=== PATIENT | female | born 1960 | race Two or more races ===

== ENCOUNTER 2020-07-11 15:14 | Outpatient (REF) | payer OTHER, SELFPAY ==
[2020-07-12 09:54] LABS: CT PCR NOT DETECTED (Not Detect.); NG PCR NOT DETECTED (Not Detect.)
[2020-07-12 10:14] LABS: BV Int Neg Control Negative (Negative); BV Int Pos Control Positive (Positive)
== END 2020-07-11 15:15 | disposition home or self-care (01) ==
LOC: HO.LNP 15:14
PROVIDERS: PCP Internal Medicine; Visit Provider Obstetrics & Gynecology
DX: R10.2 Pelvic and perineal pain (principal); N89.8 Other specified noninflammatory disorders of vagina; R79.89 Other specified abnormal findings of blood chemistry
CPT/HCPCS: 81002; 87480; 87491; 87510; 87591; 87660; 99203

== ENCOUNTER → 2020-07-29 11:15 | Outpatient (BNVA) | payer OTHER, SELFPAY | PROVIDERS: PCP Internal Medicine; Referring Provider Internal Medicine; Visit Provider Nurse Practitioner ==

== ENCOUNTER → 2020-07-29 11:15 | Outpatient (BNVA) | payer OTHER, SELFPAY | PROVIDERS: PCP Internal Medicine; Referring Provider Internal Medicine; Visit Provider Nurse Practitioner | DX: Z76.89 Persons encountering health services in other specified circumstances (principal) ==

== ENCOUNTER 2020-08-26 14:26 | Outpatient (REF) | payer OTHER, SELFPAY ==
[2020-08-26 15:12] LABS: MANUAL DIFF FLAG NO
[2020-08-26 15:16] LABS: Basophils Percent Auto 0.6 % (0-2); Eosinophils Absolute Auto 0.4 X10*3/uL (0.0-0.4); Eosinophils Percent Auto 5.4 % (0-4); Hematocrit 40.2 % (37-47); Hemoglobin 13.4 g/dl (12.0-16.0); Imm Gran Abs Auto 0.03 X10*3/uL (0.00-0.03); Imm Gran Pct Auto 0.5 % (0.0-0.4); Lymphocytes Absolute Auto 1.8 X10*3/uL (1.2-4.9); Lymphocytes Percent Auto 27.3 % (20-40); Mean Corpuscular HGB Conc 33.3 g/dl (31.0-35.0); Mean Corpuscular Hemoglobin 31.1 pg (27.0-33.0); Mean Corpuscular Volume 93.3 fL (80-98); Mean Platelet Volume 11.5 fL (9.4-12.3); Monocytes Absolute Auto 0.5 X10*3/uL (0.1-1.2); Monocytes Percent Auto 7.1 % (2-11); Neutrophils Absolute Auto 3.9 X10*3/uL (2.0-8.3); Neutrophils Percent Auto 59.1 % (45-73); Platelet Count 187 X10*3/uL (160-400); Red Blood Count 4.31 X10*6/uL (4.20-5.50); Red Cell Distribution Width 11.9 % (11.0-16.0); White Blood Count 6.7 X10*3/uL (4.8-10.8)
[2020-08-26 15:39] LABS: Alanine Aminotransferase 31 U/L (0-31); Albumin Level 3.9 g/dL (3.5-5.0); Alkaline Phosphatase 90 U/L (39-117); Anion Gap 11 (12-20); Aspartate Amino Transferase 24 U/L (5-31); Bilirubin Total 0.5 mg/dL (0.0-1.0); Blood Urea Nitrogen 17 mg/dL (9-16); C Reactive Protein 1.29 mg/dL (< or = 0.50); Calcium 8.8 mg/dL (8.4-10.2); Carbon Dioxide 27 mmol/L (22-29); Chloride 106 mmol/L (96-108); Estimated Glomerular Filt Rate > 60; Glucose Random 167 mg/dL (60-115); Sodium 140 mmol/L (135-145); Total Protein 6.9 g/dL (6.5-8.0)
[2020-08-26 16:02] LABS: Erythrocyte Sedimentation Rate 26 MM/HR (0-20)
== END 2020-08-26 14:27 | disposition home or self-care (01) ==
LOC: HO.LAB 14:26
PROVIDERS: PCP Internal Medicine; Visit Provider Student in an Organized Health Care Education/Training Program
DX: M06.9 Rheumatoid arthritis, unspecified (principal)
CPT/HCPCS: 36415; 80053; 85025; 85652; 86140

== ENCOUNTER → 2020-08-29 08:31 | Outpatient (BNVA) | payer OTHER, SELFPAY | PROVIDERS: PCP Internal Medicine; Referring Provider Internal Medicine; Visit Provider Student in an Organized Health Care Education/Training Program | DX: M05.9 Rheumatoid arthritis with rheumatoid factor, unspecified (principal); Z79.899 Other long term (current) drug therapy | CPT/HCPCS: 99212 ==

== ENCOUNTER 2020-09-03 13:19 | Outpatient (REF) | payer OTHER, SELFPAY ==
[2020-09-04 09:44] LABS: BV Int Neg Control Negative (Negative); BV Int Pos Control Positive (Positive)
== END 2020-09-03 13:20 | disposition home or self-care (01) ==
LOC: HO.LAB 13:19
PROVIDERS: PCP Internal Medicine; Visit Provider Obstetrics & Gynecology
DX: N89.8 Other specified noninflammatory disorders of vagina (principal)
CPT/HCPCS: 87480; 87510; 87660; 99212

== ENCOUNTER → 2020-11-07 13:38 | Outpatient (BNVA) | payer OTHER, SELFPAY | PROVIDERS: PCP Internal Medicine; Referring Provider Internal Medicine; Visit Provider Internal Medicine | DX: J45.909 Unspecified asthma, uncomplicated (principal); J98.4 Other disorders of lung; E66.01 Morbid (severe) obesity due to excess calories | CPT/HCPCS: 99212 ==

== ENCOUNTER 2020-11-12 15:01 | Outpatient (REF) | payer OTHER, SELFPAY ==
[2020-11-17 02:08] LABS: HPV mRNA E6/E7 rflx Not Detected (Not Detected)
== END 2020-11-12 15:02 | disposition home or self-care (01) ==
LOC: HO.LAB 15:01
PROVIDERS: PCP Internal Medicine; Visit Provider Obstetrics & Gynecology
DX: Z01.419 Encounter for gynecological examination (general) (routine) without abnormal findings (principal); Z11.51 Encounter for screening for human papillomavirus (HPV)
CPT/HCPCS: 36415; 87624; 88142

== ENCOUNTER 2020-11-13 08:02 | Outpatient (REF) | payer OTHER, SELFPAY ==
[2020-11-13 08:56] LABS: MANUAL DIFF FLAG NO
[2020-11-13 09:05] LABS: Appearance Urine CLOUDY; Color Urine YELLOW; Glucose Urine UA 100 MG/DL (NEG); Leukocyte Esterase Urine NEG (NEG); Nitrite Urine NEG (NEG); PH 5.5 (5.0-8.0); Specific Gravity - Urine >= 1.030 (1.005-1.025); Urine Blood NEG (NEG); Urine Ketones NEG (NEG); Urine Protein NEG (NEG-TRACE)
[2020-11-13 09:07] LABS: Basophils Percent Auto 0.3 % (0-2); Eosinophils Absolute Auto 0.4 X10*3/uL (0.0-0.4); Eosinophils Percent Auto 6.5 % (0-4); Hematocrit 39.4 % (37-47); Hemoglobin 13.3 g/dl (12.0-16.0); Imm Gran Abs Auto 0.04 X10*3/uL (0.00-0.03); Imm Gran Pct Auto 0.6 % (0.0-0.4); Lymphocytes Absolute Auto 1.6 X10*3/uL (1.2-4.9); Mean Corpuscular HGB Conc 33.8 g/dl (31.0-35.0); Mean Corpuscular Hemoglobin 31.6 pg (27.0-33.0); Mean Corpuscular Volume 93.6 fL (80-98); Mean Platelet Volume 12.1 fL (9.4-12.3); Monocytes Absolute Auto 0.5 X10*3/uL (0.1-1.2); Neutrophils Absolute Auto 4.2 X10*3/uL (2.0-8.3); Neutrophils Percent Auto 61.6 % (45-73); Platelet Count 172 X10*3/uL (160-400); Red Blood Count 4.21 X10*6/uL (4.20-5.50); Red Cell Distribution Width 11.9 % (11.0-16.0); White Blood Count 6.8 X10*3/uL (4.8-10.8)
[2020-11-13 09:10] LABS: Bacteria Urine 2+ /LPF; RBC Urine 0-2 /HPF (0); Squamous Epithelial Cell Urine 4+ /LPF; WBC Urine 0-2 /HPF (0-4)
[2020-11-13 09:11] LABS: Mucus Urine 2+ /LPF
[2020-11-13 09:30] LABS: Alanine Aminotransferase 26 U/L (0-31); Albumin Level 3.7 g/dL (3.5-5.0); Alkaline Phosphatase 86 U/L (39-117); Anion Gap 11 (12-20); Aspartate Amino Transferase 21 U/L (5-31); Bilirubin Total 0.8 mg/dL (0.0-1.0); Blood Urea Nitrogen 15 mg/dL (9-16); C Reactive Protein 1.19 mg/dL (< or = 0.50); Calcium 8.9 mg/dL (8.4-10.2); Carbon Dioxide 30 mmol/L (22-29); Chloride 106 mmol/L (96-108); Cholesterol 124 mg/dL; Estimated Glomerular Filt Rate > 60; Glucose Fasting 228 mg/dL (60-99); HDL Cholesterol 37 mg/dL; LDL Cholesterol Calculated 71 mg/dl; Potassium 3.9 mmol/L (3.3-5.1); Sodium 143 mmol/L (135-145); Total Protein 6.8 g/dL (6.5-8.0); Triglycerides 81 mg/dL
[2020-11-13 09:33] LABS: Reflex LDLD? No
[2020-11-13 09:54] LABS: Erythrocyte Sedimentation Rate 23 MM/HR (0-20)
== END 2020-11-13 08:03 | disposition home or self-care (01) ==
LOC: HO.LAB 08:02
PROVIDERS: Nurse Practitioner Family; Student in an Organized Health Care Education/Training Program; PCP Internal Medicine; Visit Provider Internal Medicine
DX: M05.9 Rheumatoid arthritis with rheumatoid factor, unspecified (principal); E11.9 Type 2 diabetes mellitus without complications; E78.5 Hyperlipidemia, unspecified; B37.3 Candidiasis of vulva and vagina; R10.30 Lower abdominal pain, unspecified
CPT/HCPCS: 36415; 80053; 80061; 81001; 85025; 85652; 86140

== ENCOUNTER 2020-12-13 12:37 | Emergency (ER) | payer OTHER, SELFPAY ==
--- NOTE | ~2020-12-13 | XR_ITS ---
EXAMINATION: XR CHEST CLINICAL INFORMATION: Right-sided chest and rib pain COMPARISON: Previous x-ray March 2020 TECHNIQUE: Frontal view of the chest was obtained. FINDINGS: The cardiac and mediastinal contours are stable. The lungs are clear. There is no pleural effusion or pneumothorax. Bony structures are unremarkable. XR/XR chest 1V IMPRESSION: Unremarkable examination.
[2020-12-13 12:56] VITALS: BP 181/75; PULSE 70; RESP 18; TEMP 36.8; O2SAT 99; BMI 42.7
[2020-12-13 13:43] LABS: Glucose Urine UA 250 MG/DL (NEG); Leukocyte Esterase Urine NEG (NEG); Nitrite Urine NEG (NEG); PH 7.5 (5.0-8.0); Urine Blood NEG (NEG); Urine Ketones NEG (NEG); Urine Protein NEG (NEG-TRACE)
[2020-12-13 13:46] LABS: Appearance Urine CLEAR; Color Urine YELLOW
[2020-12-13 14:00] VITALS: BP 160/89; PULSE 64; RESP 18; TEMP 36.9; O2SAT 98
--- NOTE | 2020-12-13 14:12 | ECG_ITS ---
Test Reason : RIGHT SIDE CHEST JULIENNE Blood Pressure : / mmHG Vent. Rate : 065 BPM Atrial Rate : 065 BPM P-R Int : 170 ms QRS Dur : 096 ms QT Int : 402 ms P-R-T Axes : 013 010 023 degrees QTc Int : 418 ms Normal sinus rhythm Normal ECG No significant changes when compared with the previous EKG of 20 mar 2020 Referred By: Alejandra Interiano Electronically Signed By:DEXTER BOWSER
[2020-12-13] MEDS: 0.9 % Sodium Chloride 1,000 ML 999 ML IV (14:19)
[2020-12-13 14:31] LABS: UPreg QC Valid YES; Urine Pregnancy NEGATIVE (NEGATIVE)
[2020-12-13 14:37] LABS: RBC Urine 0 /HPF (0); Squamous Epithelial Cell Urine TRACE /LPF; WBC Urine 0 /HPF (0-4)
[2020-12-13 14:48] LABS: MANUAL DIFF FLAG NO
[2020-12-13 14:50] LABS: Basophils Percent Auto 0.5 % (0-2); Eosinophils Absolute Auto 0.4 X10*3/uL (0.0-0.4); Eosinophils Percent Auto 5.9 % (0-4); Hematocrit 39.8 % (37-47); Hemoglobin 13.2 g/dl (12.0-16.0); Imm Gran Abs Auto 0.06 X10*3/uL (0.00-0.03); Imm Gran Pct Auto 0.8 % (0.0-0.4); Lymphocytes Percent Auto 27.5 % (20-40); Mean Corpuscular HGB Conc 33.2 g/dl (31.0-35.0); Mean Corpuscular Hemoglobin 31.5 pg (27.0-33.0); Mean Platelet Volume 11.1 fL (9.4-12.3); Monocytes Absolute Auto 0.5 X10*3/uL (0.1-1.2); Monocytes Percent Auto 6.7 % (2-11); Neutrophils Absolute Auto 4.3 X10*3/uL (2.0-8.3); Neutrophils Percent Auto 58.6 % (45-73); Platelet Count 199 X10*3/uL (160-400); Red Blood Count 4.19 X10*6/uL (4.20-5.50); Red Cell Distribution Width 12.6 % (11.0-16.0); White Blood Count 7.3 X10*3/uL (4.8-10.8)
[2020-12-13 15:23] LABS: Alanine Aminotransferase 35 U/L (0-31); Alkaline Phosphatase 95 U/L (39-117); Anion Gap 10 (12-20); Aspartate Amino Transferase 31 U/L (5-31); Bilirubin Total 0.7 mg/dL (0.0-1.0); Blood Urea Nitrogen 9 mg/dL (9-16); Carbon Dioxide 29 mmol/L (22-29); Chloride 106 mmol/L (96-108); Creatinine Clr Calc Pharmacy 90.1; Estimated Glomerular Filt Rate > 60; Glucose Random 152 mg/dL (60-115); Potassium 3.9 mmol/L (3.3-5.1); Sodium 141 mmol/L (135-145); Total Protein 7.2 g/dL (6.5-8.0)
[2020-12-13 15:29] LABS: Troponin-I High Sensitivity < 3.5 ng/L (<3.5-17.0)
[2020-12-13 16:00] VITALS: BP 156/83; PULSE 62; RESP 15; TEMP 36.9; O2SAT 99
--- NOTE | 2020-12-13 17:33 | ED_ITS ---
HPI - Abdominal Pain General Chief Complaint: Abdominal Pain Stated Complaint: flank pain Time Seen by Provider: 12/13/20 14:19 Source: patient Mode of arrival: ambulatory Limitations: language barrier (java flex developer present follow instruction) History of Present Illness HPI narrative: This is 6-year-old female primarily Cook Islander-speaking with prior medical history that is significant for diabetes, hypertension, asthma, arthritis and surgical history of cholecystectomy along with other history as no elizabeth below who presents ambulatory via triage today with complaint of right-sided flank pain that has been present for the past. States pain feels worse with certain movements and feels like a ball in that region. MD elicited complaint: flank pain Pertinent past history: none Exacerbating factors: medication Relieving factors: rest Associated symptoms: denies other symptoms Related Data Home Medications Medication Instructions Recorded Confirmed blood-glucose meter #1 ea 07/11/20 11/12/20 fluticasone propionate 220 2 puff INHALATION BID 07/11/20 11/12/20 mcg/actuation HFA aerosol inhaler metformin 500 mg tablet See Rx Instructions PO .COMPLEX 07/11/20 11/12/20 rosuvastatin 5 mg tablet 5 mg PO DAILY 07/11/20 11/12/20 bisacodyl 5 mg tablet,delayed 10 mg PO BEDTIME 07/26/20 11/12/20 release calcium carbonate 200 mg calcium 200 mg PO TID 07/26/20 11/12/20 (500 mg) chewable tablet docusate sodium 100 mg capsule 100 mg PO BID 07/26/20 11/12/20 dicyclomine 20 mg tablet mg PO 08/01/20 11/12/20 magnesium citrate 150 ml PO BID 08/01/20 11/12/20 terconazole 0.8 % vaginal cream VAGINAL 08/01/20 11/12/20 fluticasone propionate 220 2 puff INHALATION BID 09/11/20 11/12/20 mcg/actuation HFA aerosol inhaler Previous Rx's Medication Instructions Recorded albuterol sulfate 90 mcg/actuation 2 inh PO Q4H PRN #8.5 g 08/13/20 aerosol inhaler tofacitinib 11 mg tablet,extended 11 mg PO DAILY #30 tab 08/29/20 release 24 hr clotrimazole 2 % vaginal cream 1 appful VAGINAL BEDTIME 3 Days 09/11/20 #21 g fluconazole 150 mg tablet 150 mg PO ONCE 1 Days #1 tab 09/11/20 lisinopril 20 1 tab PO DAILY 90 Days #90 tab 10/01/20 mg-hydrochlorothiazide 25 mg tablet lancets 28 gauge #100 ea 11/05/20 blood sugar diagnostic #50 ea 11/12/20 blood-glucose meter #1 ea 11/12/20 lancets 28 gauge #100 ea 11/12/20 baclofen 10 mg tablet 10 mg PO BID #30 tab 11/21/20 lidocaine 1 patch TOPICAL Q24H PRN #10 ea 12/13/20 Allergies Allergy/AdvReac Type Severity Reaction Status Date / Time Flexeril Allergy Intermediate dizzy Verified 12/13/20 12:59 Norflex Allergy Intermediate dizzy Verified 12/13/20 12:59 Review of Systems Review of Systems Constitutional: No Weight loss, No Fever, No Chills, No Night Sweats, No Fatigue , No Malaise ENT/Mouth: No Hearing loss, No Ear Pain, No Nasal Congestion, No Sinus Pain, No Hoarseness, No sore throat, No Rhinorrhea, No Swallowing Difficulty Eyes: No Eye Pain, No Swelling, No Redness, No Foreign Body, No Discharge, No Vision Changes Cardiovascular: No Chest Pain, No SOB, No Dyspnea on Exertion, No Orthopnea, No Edema, No Palpitations Respiratory: No Cough, No Sputum, No Wheezing, No Smoke Exposure, No Dyspnea Gastrointestinal: No Nausea, No Vomiting, No Diarrhea, No Constipation, No abdominal Pain, No Hematochezia, No Melena Genitourinary: no irregular bleeding, + Dysuria sometimes with voids, No Urinary Frequency, No Hematuria, No Urinary Incontinence, No Urgency, No Flank Pain, No Urinary Flow Changes, No Hesitancy Musculoskeletal: No joint pain, No Myalgias, No Joint Swelling Skin: No Skin Lesions, No rash Neuro: No Weakness, No Numbness, No Paresthesias, No Loss of Consciousness, No Dizziness, No Headache Psych: No Social Issues Heme/Lymph: No Bruising, No Bleeding,No Lymphadenopathy Endocrine: No Polyuria, No Polydipsia, No Temperature Intolerance Yes all other systems are reviewed and are negative Physical Exam Vital Signs: Vital Signs: Last Vital Signs Temp 98.4 F 12/13/20 16:00 Pulse 62 12/13/20 16:00 Resp 15 12/13/20 16:00 BP 156/83 H 12/13/20 16:00 Pulse Ox 99 12/13/20 16:00 Body Mass Index 42.7 Reviewed Const: General: cooperative and healthy appearing; No acute distress or intoxicated appearing Nutritional Appearance: obese Orientation/consciousness: patient oriented x3 HENMT: Head: Yes normal to inspection Ears: hearing grossly normal bilaterally Eyes: General: appearance normal, both eyes and all related structures Visual Anglin: normal visual anglin by confrontation Neck: Neck: Yes normal visual inspection, No positive Brudzinski's sign, No positive Kernig's sign and No tender Thyroid: Thyroid normal Chest: Chest palpation & inspection: normal inspection of the chest Resp: Effort & Inspection: normal respiratory effort Auscultation: clear to auscultation bilaterally Cardio: Jugular venous distension: no JVD Rhythm: regular rhythm Heart sounds: S1 normal heart sound present and S2 normal heart sound present GI: Inspection: Yes normal to inspection Palpation (GI): Soft to palpation, nontender and no guarding Percussion: Yes normal to percussion Auscultation: normal bowel sounds : General: Yes no CVA tenderness Back/Spine/Pelvis: Back: no CVA tenderness Thoracic/Lumbar Spine: paraspinal muscle tenderness (With palpation and range of motion. No rash.) Skin: General skin exam: no rashes or lesions noted Neuro: General: patient oriented x3 Extrem: General: Yes normal to inspection Course Reevaluation(s) Reevaluation #1: Upon arrival per RN thought she may have chest pain but due to language barrier patient states she does not have any chest pain as pressure with a splash behavioral medical director states she is here for the right-sided back pain however she had EKG and chest x-ray per protocol prior to my evaluation. She is well nontoxic appearing. Has had similar episodes in the past I seen her in May had abdominal CT scan. Today will check labs including electrolytes UA and treat with NSAIDs and lidocaine patch as pain is more consistent with musculoskeletal in etiology. MDM - Abdominal Pain MDM Narrative Medical decision making narrative: AP 60-year-old female with above history presenting with right-sided back pain in the mid back consistent with lumbar thoracic paraspinal muscle strain. Labs overall reassuring UA noninfected exam reveals no acute abdomen. She is hemodynamically stable. Will send home with short course of NSAIDs and lidocaine patch with plan for follow-up. Clear precaution return follow-up instructions provided. She verbalized understanding and comfortable plan. Lab Data Result diagrams: 12/13/20 14:44 12/13/20 14:44 Labs: Lab Results 12/13/20 12/13/20 12/13/20 Range/Units 13:18 13:18 14:44 WBC (4.8-10.8) X10*3/uL RBC (4.20-5.50) X10*6/uL Hgb (12.0-16.0) g/dl Hct (37-47) % MCV (80-98) fL MCH (27.0-33.0) pg MCHC (31.0-35.0) g/dl RDW (11.0-16.0) % Plt Count (160-400) X10*3/uL MPV (9.4-12.3) fL Immature Gran % (Auto) (0.0-0.4) % Neut % (Auto) (45-73) % Lymph % (Auto) (20-40) % [place] % (Auto) (2-11) % Eos % (Auto) (0-4) % Baso % (Auto) (0-2) % Lymph # (Auto) (1.2-4.9) X10*3/uL [place] # (Auto) (0.1-1.2) X10*3/uL Eos # (Auto) (0.0-0.4) X10*3/uL Baso # (Auto) (0.0-0.2) X10*3/uL Abs Immat Gran (auto) (0.00-0.03) X10*3/uL Absolute Neuts (auto) (2.0-8.3) X10*3/uL Absolute Nucleated RBC (0.0-0.012) X10*3/uL Nucleated RBC % (auto) (0.0-0.2) /100WBC Hold Blue Top SEE NOTE Sodium (135-145) mmol/L Potassium (3.3-5.1) mmol/L Chloride (96-108) mmol/L Carbon Dioxide (22-29) mmol/L Anion Gap (12-20) BUN (9-16) mg/dL Creatinine (0.5-1.4) mg/dL Estim Creat Clear Calc Estimated GFR Random Glucose (60-115) mg/dL Calcium (8.4-10.2) mg/dL Total Bilirubin (0.0-1.0) mg/dL AST (5-31) U/L ALT (0-31) U/L Alkaline Phosphatase (39-117) U/L Troponin I High Sens (<3.5-17.0) ng/L Total Protein (6.5-8.0) g/dL Albumin (3.5-5.0) g/dL Urine Color YELLOW Urine Appearance CLEAR Urine pH 7.5 (5.0-8.0) Ur Specific [place] 1.020 (1.005-1.025) Urine Protein NEG (NEG-TRACE) MG/DL Urine Glucose (UA) 250 H (NEG) MG/DL Urine Ketones NEG (NEG) MG/DL Urine Blood NEG (NEG) Urine Nitrite NEG (NEG) Ur Leukocyte Esterase NEG (NEG) Urine RBC 0 (0) /HPF Urine WBC 0 (0-4) /HPF Ur Squamous Epith Cells TRACE /LPF Urine Bacteria NONE /LPF Urine Test NEGATIVE (NEGATIVE) 12/13/20 12/13/20 12/13/20 Range/Units 14:44 14:44 14:44 WBC 7.3 (4.8-10.8) X10*3/uL RBC 4.19 L (4.20-5.50) X10*6/uL Hgb 13.2 (12.0-16.0) g/dl Hct 39.8 (37-47) % MCV 95.0 (80-98) fL MCH 31.5 (27.0-33.0) pg MCHC 33.2 (31.0-35.0) g/dl RDW 12.6 (11.0-16.0) % Plt Count 199 (160-400) X10*3/uL MPV 11.1 (9.4-12.3) fL Immature Gran % (Auto) 0.8 H (0.0-0.4) % Neut % (Auto) 58.6 (45-73) % Lymph % (Auto) 27.5 (20-40) % [place] % (Auto) 6.7 (2-11) % Eos % (Auto) 5.9 H (0-4) % Baso % (Auto) 0.5 (0-2) % Lymph # (Auto) 2.0 (1.2-4.9) X10*3/uL [place] # (Auto) 0.5 (0.1-1.2) X10*3/uL Eos # (Auto) 0.4 (0.0-0.4) X10*3/uL Baso # (Auto) 0.0 (0.0-0.2) X10*3/uL Abs Immat Gran (auto) 0.06 H (0.00-0.03) X10*3/uL Absolute Neuts (auto) 4.3 (2.0-8.3) X10*3/uL Absolute Nucleated RBC 0.000 (0.0-0.012) X10*3/uL Nucleated RBC % (auto) 0.0 (0.0-0.2) /100WBC Hold Blue Top Sodium 141 (135-145) mmol/L Potassium 3.9 (3.3-5.1) mmol/L Chloride 106 (96-108) mmol/L Carbon Dioxide 29 (22-29) mmol/L Anion Gap 10 L (12-20) BUN 9 (9-16) mg/dL Creatinine 0.73 (0.5-1.4) mg/dL Estim Creat Clear Calc 90.1 Estimated GFR > 60 Random Glucose 152 H (60-115) mg/dL Calcium 9.0 (8.4-10.2) mg/dL Total Bilirubin 0.7 (0.0-1.0) mg/dL AST 31 D (5-31) U/L ALT 35 H (0-31) U/L Alkaline Phosphatase 95 (39-117) U/L Troponin I High Sens < 3.5 (<3.5-17.0) ng/L Total Protein 7.2 (6.5-8.0) g/dL Albumin 4.0 (3.5-5.0) g/dL Urine Color Urine Appearance Urine pH (5.0-8.0) Ur Specific [place] (1.005-1.025) Urine Protein (NEG-TRACE) MG/DL Urine Glucose (UA) (NEG) MG/DL Urine Ketones (NEG) MG/DL Urine Blood (NEG) Urine Nitrite (NEG) Ur Leukocyte Esterase (NEG) Urine RBC (0) /HPF Urine WBC (0-4) /HPF Ur Squamous Epith Cells /LPF Urine Bacteria /LPF Urine Test (NEGATIVE) Discharge Plan Discharge Clinical Impression: Back pain Qualifiers: Back pain location: thoracic back pain Chronicity: acute Back pain laterality: right Qualified Code(s): M54.6 - Pain in thoracic spine Patient Disposition: Home, Self-Care Instructions: Back Pain (ED) Additional Instructions: The pain that you are having is more consistent with pulled muscle Please do gentle stretching Warm compresses No bending or stooping and make sure you use good body mechanics during your activities of daily living. Topical lidocaine patch as prescribed With Tylenol over the counter Follow-up with primary care doctor as planned Return if any concerns worsening symptoms Thank you Prescriptions: New lidocaine 4 % adhesive patch,medicated 1 patch topical Q24H PRN (Reason: pain) Qty: 10 RF: 0 No Action albuterol sulfate 90 mcg/actuation HFA aerosol inhaler 2 inh PO Q4H PRN (Reason: shortness of breath or wheezing) Qty: 8.5 RF: 1 lisinopril-hydrochlorothiazide 20-25 mg tablet 1 tab PO DAILY 90 Days Qty: 90 RF: 3 (DME) FreeStyle Lite Strips Strip See Rx Instructions .ROUTE .MEDSUPPLY Qty: 50 RF: 11 (DME) blood-glucose meter [FreeStyle Lite Meter] Kit See Rx Instructions .ROUTE .MEDSUPPLY Qty: 1 RF: 0 (DME) lancets 28 gauge misc See Rx Instructions lancet topical TID Qty: 100 RF: 11 baclofen 10 mg tablet 10 mg PO BID Qty: 30 RF: 0 (DME) lancets [FreeStyle Lancets] 28 gauge misc See Rx Instructions .ROUTE .MEDSUPPLY Qty: 100 RF: 11 metformin 500 mg tablet See Rx Instructions PO .COMPLEX RF: 0 Flovent HFA 220 mcg/actuation HFA aerosol inhaler 2 puff inhalation BID RF: 0 (DME) blood-glucose meter [FreeStyle Lite Meter] Kit See Rx Instructions .ROUTE .MEDSUPPLY Qty: 1 RF: 0 rosuvastatin [Crestor] 5 mg tablet 5 mg PO DAILY RF: 0 Flovent HFA 220 mcg/actuation HFA aerosol inhaler 2 puff inhalation BID RF: 0 fluconazole 150 mg tablet 150 mg PO ONCE 1 Days Qty: 1 RF: 0 clotrimazole 2 % cream 1 appful vaginal BEDTIME 3 Days Qty: 21 RF: 0 Xeljanz XR 11 mg tablet extended release 24 hr 11 mg PO DAILY Qty: 30 RF: 3 bisacodyl [Dulcolax (bisacodyl)] 5 mg tablet,delayed release (DR/EC) 10 mg PO BEDTIME RF: 0 docusate sodium [Colace] 100 mg capsule 100 mg PO BID RF: 0 calcium carbonate [Tums] 200 mg calcium (500 mg) tablet,chewable 200 mg PO TID RF: 0 magnesium citrate Solution 150 ml PO BID RF: 0 dicyclomine 20 mg tablet PO RF: 0 terconazole 0.8 % cream vaginal RF: 0 Referrals: Aniyah Gonzalez MD [Primary Care Provider] - 1 week [facility] Past Medical History Medical History Asthma Asthma Diabetes Dyslipidemia Essential hypertension Morbid obesity Restrictive lung disease Rheumatoid arthritis Seropositive rheumatoid arthritis Vaginal modesta Surgical History History of cholecystectomy History of surgery on wrist Hx of colonoscopy (09/01/19) Family History Family History Father Diabetes mellitus Myocardial infarction Hypertension CVD (cardiovascular disease) Mother Diabetes mellitus CVD (cardiovascular disease) Sister No problems noted. Son No problems noted. Son No problems noted. Son No problems noted. Daughter Thyroiditis Daughter No problems noted. Daughter No problems noted. Daughter No problems noted. Daughter No problems noted. Social History Social History Alcohol intake: never Smoking Status: Never smoker Advance Directives: No Advance Directives Information Provided: Yes Sexual orientation: Straight/Heterosexual Gender identity: female
== END 2020-12-13 17:53 | disposition home or self-care (01) ==
PROVIDERS: Nurse Practitioner Primary Care; Emergency Provider Emergency Medicine; PCP Internal Medicine
DX: M54.6 Pain in thoracic spine (principal); E11.9 Type 2 diabetes mellitus without complications; I10 Essential (primary) hypertension; J45.909 Unspecified asthma, uncomplicated; Z90.49 Acquired absence of other specified parts of digestive tract; Z79.84 Long term (current) use of oral hypoglycemic drugs; Z79.899 Other long term (current) drug therapy
CPT/HCPCS: 36415; 71045; 80053; 81003; 81025; 84484; 85025; 93005; 96360; 99284

== ENCOUNTER 2020-12-18 16:24 | Outpatient (REF) | payer OTHER, SELFPAY ==
--- NOTE | ~2020-12-18 | XR_ITS ---
EXAMINATION: XR CHEST CLINICAL INFORMATION: Pleura tiny. COMPARISON: None TECHNIQUE: 2 views of the chest were obtained. FINDINGS: No significant abnormality is noted involving the heart, lungs, mediastinum, bony thorax or soft tissues. XR/XR chest 2V IMPRESSION: Unremarkable chest examination.
== END 2020-12-18 16:25 | disposition home or self-care (01) ==
LOC: HO.XRAY 16:24
PROVIDERS: PCP Internal Medicine; Visit Provider Nurse Practitioner Family
DX: R07.81 Pleurodynia (principal)
CPT/HCPCS: 71046

== ENCOUNTER 2020-12-19 07:42 | Outpatient (REF) | payer OTHER, SELFPAY ==
[2020-12-19 09:18] LABS: MANUAL DIFF FLAG NO
[2020-12-19 09:25] LABS: Basophils Percent Auto 0.7 % (0-2); Eosinophils Absolute Auto 0.5 X10*3/uL (0.0-0.4); Eosinophils Percent Auto 7.7 % (0-4); Hematocrit 37.8 % (37-47); Hemoglobin 12.6 g/dl (12.0-16.0); Imm Gran Abs Auto 0.04 X10*3/uL (0.00-0.03); Imm Gran Pct Auto 0.7 % (0.0-0.4); Lymphocytes Absolute Auto 1.6 X10*3/uL (1.2-4.9); Lymphocytes Percent Auto 26.4 % (20-40); Mean Corpuscular HGB Conc 33.3 g/dl (31.0-35.0); Mean Corpuscular Hemoglobin 31.4 pg (27.0-33.0); Mean Corpuscular Volume 94.3 fL (80-98); Mean Platelet Volume 11.7 fL (9.4-12.3); Monocytes Absolute Auto 0.4 X10*3/uL (0.1-1.2); Monocytes Percent Auto 6.9 % (2-11); Neutrophils Absolute Auto 3.5 X10*3/uL (2.0-8.3); Neutrophils Percent Auto 57.6 % (45-73); Platelet Count 196 X10*3/uL (160-400); Red Blood Count 4.01 X10*6/uL (4.20-5.50); Red Cell Distribution Width 12.6 % (11.0-16.0); White Blood Count 6.1 X10*3/uL (4.8-10.8)
[2020-12-19 09:44] LABS: B Type Natriuretic Peptide 34 pg/mL (<100)
[2020-12-19 09:49] LABS: Alanine Aminotransferase 29 U/L (0-31); Albumin Level 3.7 g/dL (3.5-5.0); Alkaline Phosphatase 92 U/L (39-117); Anion Gap 11 (12-20); Aspartate Amino Transferase 21 U/L (5-31); Blood Urea Nitrogen 15 mg/dL (9-16); Calcium 8.6 mg/dL (8.4-10.2); Carbon Dioxide 26 mmol/L (22-29); Chloride 108 mmol/L (96-108); Cholesterol 140 mg/dL; Estimated Glomerular Filt Rate > 60; Glucose Fasting 176 mg/dL (60-99); HDL Cholesterol 36 mg/dL; LDL Cholesterol Calculated 88 mg/dl; Potassium 3.9 mmol/L (3.3-5.1); Sodium 141 mmol/L (135-145); Total Protein 6.6 g/dL (6.5-8.0); Triglycerides 80 mg/dL
== END 2020-12-19 07:43 | disposition home or self-care (01) ==
LOC: HO.LAB 07:42
PROVIDERS: PCP Internal Medicine; Visit Provider Nurse Practitioner Family
DX: J98.4 Other disorders of lung (principal)
CPT/HCPCS: 36415; 80053; 80061; 83880; 85025

== ENCOUNTER 2021-01-07 08:39 | Outpatient (REF) | payer OTHER, SELFPAY ==
--- NOTE | ~2021-01-07 | XR_ITS ---
EXAMINATION: CERVICAL SPINE AND RIGHT RIBS. CLINICAL INFORMATION: Rheumatoid arthritis with pneumonitis factor. Pain COMPARISON: None TECHNIQUE: Cervical spine 3 views. Right RIBS 3 views. FINDINGS: Right RIBS: There is no visible acute fracture or bony abnormality. The soft tissues are normal. Cervical spine: There is mild straightening of cervical lordosis. Mild loss of C5-C6 and C6-C7 disc heights with ventral and posterior spondylosis noted. Rest the disc heights are normal. No visible acute fracture, dislocation or lytic process seen. The prevertebral soft tissues are normal. XR/XR ribs RT 2V IMPRESSION: No visible right rib fracture or bony abnormality. Mild degenerative disc changes C5-C6 and C6-C7 disc levels. No visible acute fracture or dislocation seen.
--- NOTE | ~2021-01-07 | XR_ITS ---
EXAMINATION: CERVICAL SPINE AND RIGHT RIBS. CLINICAL INFORMATION: Rheumatoid arthritis with pneumonitis factor. Pain COMPARISON: None TECHNIQUE: Cervical spine 3 views. Right RIBS 3 views. FINDINGS: Right RIBS: There is no visible acute fracture or bony abnormality. The soft tissues are normal. Cervical spine: There is mild straightening of cervical lordosis. Mild loss of C5-C6 and C6-C7 disc heights with ventral and posterior spondylosis noted. Rest the disc heights are normal. No visible acute fracture, dislocation or lytic process seen. The prevertebral soft tissues are normal. XR/XR cervical spine 2V IMPRESSION: No visible right rib fracture or bony abnormality. Mild degenerative disc changes C5-C6 and C6-C7 disc levels. No visible acute fracture or dislocation seen.
[2021-01-07 10:14] LABS: Alanine Aminotransferase 33 U/L (0-31); Albumin Level 3.8 g/dL (3.5-5.0); Alkaline Phosphatase 90 U/L (39-117); Anion Gap 12 (12-20); Aspartate Amino Transferase 26 U/L (5-31); Blood Urea Nitrogen 16 mg/dL (9-16); Calcium 9.3 mg/dL (8.4-10.2); Carbon Dioxide 29 mmol/L (22-29); Chloride 102 mmol/L (96-108); Cholesterol 131 mg/dL; Estimated Glomerular Filt Rate > 60; Glucose Fasting 273 mg/dL (60-99); HDL Cholesterol 38 mg/dL; LDL Cholesterol Calculated 71 mg/dl; Potassium 3.6 mmol/L (3.3-5.1); Sodium 139 mmol/L (135-145); Total Protein 6.8 g/dL (6.5-8.0); Triglycerides 114 mg/dL
[2021-01-07 11:05] LABS: Creatinine Urine 98.61 mg/dL
[2021-01-12 13:11] LABS: Vitamin D 25-OH, D2 <4 ng/mL; Vitamin D 25-OH, D3 22 ng/mL; Vitamin D 25-OH, Total 22 ng/mL (30-100)
== END 2021-01-07 08:40 | disposition home or self-care (01) ==
LOC: HO.LAB 08:39
PROVIDERS: PCP Internal Medicine; Visit Provider Student in an Organized Health Care Education/Training Program
DX: M05.9 Rheumatoid arthritis with rheumatoid factor, unspecified (principal); E11.65 Type 2 diabetes mellitus with hyperglycemia; E55.9 Vitamin D deficiency, unspecified; E78.5 Hyperlipidemia, unspecified; Z79.899 Other long term (current) drug therapy
CPT/HCPCS: 36415; 71100; 72040; 80053; 80061; 82043; 82306; 99212

== ENCOUNTER → 2021-01-17 12:51 | Outpatient (BNVA) | payer OTHER, SELFPAY | PROVIDERS: PCP Internal Medicine; Visit Provider Student in an Organized Health Care Education/Training Program ==

== ENCOUNTER 2021-04-17 14:01 | Outpatient (REF) | payer OTHER, SELFPAY ==
--- NOTE | ~2021-04-17 | XR_ITS ---
EXAMINATION: XR LUMBOSACRAL SPINE CLINICAL INFORMATION: Spondylosis without myelopathy or radiculopathy. COMPARISON: None TECHNIQUE: Three views of the lumbosacral spine. FINDINGS: There are 5 [id number] lumbar vertebrae. No acute fracture, spondylolisthesis, or spondylolysis is appreciated. There is severe degenerative disc disease seen at the L5-S1 level with loss of disc space and marginal sclerosis and spurring as well as bilateral facet arthropathy L5-S1. There is mild narrowing of the L4-L5 disc space. Prominent spurring is seen anteriorly at the T12-L1 level. No evidence of fusion or widening of the sacroiliac joints. XR/XR lumbar spine 2-3V IMPRESSION: Lumbar spondylosis predominantly at the L5-S1 level.
[2021-04-17 14:45] LABS: MANUAL DIFF FLAG NO
[2021-04-17 14:50] LABS: Basophils Percent Auto 0.6 % (0-2); Eosinophils Absolute Auto 0.4 X10*3/uL (0.0-0.4); Eosinophils Percent Auto 5.3 % (0-4); Hematocrit 37.4 % (37-47); Hemoglobin 12.6 g/dl (12.0-16.0); Imm Gran Abs Auto 0.04 X10*3/uL (0.00-0.03); Imm Gran Pct Auto 0.6 % (0.0-0.4); Lymphocytes Percent Auto 29.8 % (20-40); Mean Corpuscular HGB Conc 33.7 g/dl (31.0-35.0); Mean Corpuscular Hemoglobin 31.9 pg (27.0-33.0); Mean Corpuscular Volume 94.7 fL (80-98); Mean Platelet Volume 11.6 fL (9.4-12.3); Monocytes Absolute Auto 0.5 X10*3/uL (0.1-1.2); Monocytes Percent Auto 7.1 % (2-11); Neutrophils Absolute Auto 3.8 X10*3/uL (2.0-8.3); Neutrophils Percent Auto 56.6 % (45-73); Platelet Count 169 X10*3/uL (160-400); Red Blood Count 3.95 X10*6/uL (4.20-5.50); Red Cell Distribution Width 11.9 % (11.0-16.0); White Blood Count 6.7 X10*3/uL (4.8-10.8)
[2021-04-17 15:10] LABS: Alanine Aminotransferase 36 U/L (0-31); Albumin Level 3.6 g/dL (3.5-5.0); Alkaline Phosphatase 88 U/L (39-117); Anion Gap 11 (12-20); Aspartate Amino Transferase 45 U/L (5-31); Bilirubin Total 0.5 mg/dL (0.0-1.0); Blood Urea Nitrogen 14 mg/dL (9-16); C Reactive Protein 1.11 mg/dL (< or = 0.50); Calcium 8.9 mg/dL (8.4-10.2); Carbon Dioxide 27 mmol/L (22-29); Chloride 108 mmol/L (96-108); Estimated Glomerular Filt Rate > 60; Glucose Random 212 mg/dL (60-115); Potassium 4.2 mmol/L (3.3-5.1); Sodium 142 mmol/L (135-145); Total Protein 6.4 g/dL (6.5-8.0)
[2021-04-17 15:42] LABS: Erythrocyte Sedimentation Rate 23 MM/HR (0-20)
== END 2021-04-17 14:02 | disposition home or self-care (01) ==
LOC: HO.LAB 14:01
PROVIDERS: Visit Provider Student in an Organized Health Care Education/Training Program
DX: M05.9 Rheumatoid arthritis with rheumatoid factor, unspecified (principal); M47.816 Spondylosis without myelopathy or radiculopathy, lumbar region; Z79.899 Other long term (current) drug therapy
CPT/HCPCS: 36415; 72100; 80053; 85025; 85652; 86140; 99212

== ENCOUNTER → 2021-04-30 13:04 | Outpatient (BNVA) | payer OTHER, SELFPAY | PROVIDERS: PCP Internal Medicine; Visit Provider Internal Medicine | DX: J45.909 Unspecified asthma, uncomplicated (principal); J98.4 Other disorders of lung; E66.01 Morbid (severe) obesity due to excess calories; Z68.41 Body mass index [BMI] 40.0-44.9, adult; Z79.52 Long term (current) use of systemic steroids; Z79.899 Other long term (current) drug therapy | CPT/HCPCS: 99212 ==

== ENCOUNTER → 2021-05-14 15:47 | Outpatient (BNVA) | payer OTHER, SELFPAY | PROVIDERS: PCP Internal Medicine; Visit Provider Anesthesiology ==

== ENCOUNTER 2021-06-11 14:31 | Outpatient (REF) | payer OTHER, SELFPAY ==
[2021-06-11 16:19] LABS: MANUAL DIFF FLAG NO
[2021-06-11 16:23] LABS: Basophils Percent Auto 0.4 % (0-2); Eosinophils Absolute Auto 0.3 X10*3/uL (0.0-0.4); Eosinophils Percent Auto 3.7 % (0-4); Hematocrit 38.3 % (37-47); Hemoglobin 12.9 g/dl (12.0-16.0); Imm Gran Abs Auto 0.03 X10*3/uL (0.00-0.03); Imm Gran Pct Auto 0.4 % (0.0-0.4); Lymphocytes Absolute Auto 2.3 X10*3/uL (1.2-4.9); Lymphocytes Percent Auto 27.7 % (20-40); Mean Corpuscular HGB Conc 33.7 g/dl (31.0-35.0); Mean Corpuscular Hemoglobin 31.9 pg (27.0-33.0); Mean Corpuscular Volume 94.6 fL (80-98); Mean Platelet Volume 11.9 fL (9.4-12.3); Monocytes Absolute Auto 0.5 X10*3/uL (0.1-1.2); Monocytes Percent Auto 5.7 % (2-11); Neutrophils Absolute Auto 5.2 X10*3/uL (2.0-8.3); Neutrophils Percent Auto 62.1 % (45-73); Platelet Count 189 X10*3/uL (160-400); Red Blood Count 4.05 X10*6/uL (4.20-5.50); Red Cell Distribution Width 11.7 % (11.0-16.0); White Blood Count 8.4 X10*3/uL (4.8-10.8)
[2021-06-11 16:47] LABS: Alanine Aminotransferase 41 U/L (0-31); Albumin Level 3.9 g/dL (3.5-5.0); Alkaline Phosphatase 95 U/L (39-117); Anion Gap 12 (12-20); Aspartate Amino Transferase 31 U/L (5-31); Bilirubin Total 0.6 mg/dL (0.0-1.0); Blood Urea Nitrogen 17 mg/dL (9-16); Calcium 9.7 mg/dL (8.4-10.2); Carbon Dioxide 29 mmol/L (22-29); Chloride 105 mmol/L (96-108); Estimated Glomerular Filt Rate 51; Glucose Random 166 mg/dL (60-115); Potassium 3.5 mmol/L (3.3-5.1); Sodium 142 mmol/L (135-145); Total Protein 6.8 g/dL (6.5-8.0)
[2021-06-11 17:04] LABS: Erythrocyte Sedimentation Rate 23 MM/HR (0-20)
== END 2021-06-11 14:32 | disposition home or self-care (01) ==
LOC: HO.LAB 14:31
PROVIDERS: PCP Internal Medicine; Visit Provider Nurse Practitioner Family
DX: M05.9 Rheumatoid arthritis with rheumatoid factor, unspecified (principal); M47.816 Spondylosis without myelopathy or radiculopathy, lumbar region; Z79.899 Other long term (current) drug therapy
CPT/HCPCS: 36415; 80053; 85025; 85652; 86140; 99212

== ENCOUNTER 2021-06-18 12:25 | Outpatient (REF) | payer OTHER, SELFPAY ==
--- NOTE | ~2021-06-18 | MM_ITS ---
EXAMINATION: MM SCREENING DIGITAL BREAST TOMOSYNTHESIS, BILATERAL CLINICAL INFORMATION: Screening. Asymptomatic. The lifetime risk of breast cancer based on the Tyrer-Cuzick Model is 7%. COMPARISON: Mammography: 04/29/2020, 04/24/2019 (new baseline) TECHNIQUE: Digital breast tomosynthesis is performed in both the craniocaudal and mediolateral oblique views along with computer-aided detection (CAD). Synthesized 2D images are generated from the tomosynthesis. FINDINGS: The breasts are almost entirely fatty (ACR BI-RADS breast composition Category a). Background stromal markings are stable. There is no interval mass or architectural abnormality. There are scattered benign calcifications predominantly anterior breasts. The axilla and skin contours are unremarkable. No significant changes from prior studies. MM/MM tomosynthesis screening BI IMPRESSION: No mammographic evidence of malignancy. ASSESSMENT: BI-RADS 1: Negative RECOMMENDATION: Routine annual mammography screening. This patient's information was entered into a reminder system with a target due date for their next mammogram.
== END 2021-06-18 12:26 | disposition home or self-care (01) ==
LOC: HO.MAMMO 12:25
PROVIDERS: Visit Provider Internal Medicine
DX: Z12.31 Encounter for screening mammogram for malignant neoplasm of breast (principal)
CPT/HCPCS: 77063; 77067

== ENCOUNTER 2021-08-07 13:36 | Outpatient (REF) | payer OTHER, SELFPAY ==
--- NOTE | ~2021-08-07 | XR_ITS ---
EXAMINATION: XR ABDOMEN KUB CLINICAL INDICATION: Abdominal pain COMPARISON: Previous CT of the abdomen and pelvis May 2020 TECHNIQUE: AP view of the abdomen. FINDINGS: The bowel gas pattern is normal with no evidence of ileus or obstruction. No unusual soft tissue calcifications are noted. There is no free air. There are degenerative changes of the lower lumbar spine. XR/XR KUB IMPRESSION: Unremarkable examination.
[2021-08-07 14:55] LABS: Alanine Aminotransferase 29 U/L (0-31); Albumin Level 3.9 g/dL (3.5-5.0); Alkaline Phosphatase 105 U/L (39-117); Anion Gap 10 (12-20); Aspartate Amino Transferase 23 U/L (5-31); Bilirubin Total 0.5 mg/dL (0.0-1.0); Blood Urea Nitrogen 14 mg/dL (9-16); Calcium 9.4 mg/dL (8.4-10.2); Carbon Dioxide 29 mmol/L (22-29); Chloride 106 mmol/L (96-108); Cholesterol 149 mg/dL; Estimated Glomerular Filt Rate > 60; Glucose Fasting 178 mg/dL (60-99); HDL Cholesterol 36 mg/dL; LDL Cholesterol Calculated 90 mg/dl; Potassium 4.1 mmol/L (3.3-5.1); Sodium 141 mmol/L (135-145); Total Protein 6.9 g/dL (6.5-8.0); Triglycerides 115 mg/dL
[2021-08-07 15:05] LABS: Creatinine Urine 117.34 mg/dL
[2021-08-12 14:27] LABS: Vitamin D 25-OH, D2 <4 ng/mL; Vitamin D 25-OH, D3 26 ng/mL; Vitamin D 25-OH, Total 26 ng/mL (30-100)
== END 2021-08-07 13:37 | disposition home or self-care (01) ==
LOC: HO.XRAY 13:36
PROVIDERS: PCP Internal Medicine; Visit Provider Internal Medicine
DX: M54.9 Dorsalgia, unspecified (principal)
CPT/HCPCS: 36415; 74018; 80053; 80061; 82043; 82306

== ENCOUNTER 2021-08-14 16:00 | Outpatient (RCR) | payer OTHER, SELFPAY ==
--- NOTE | 2021-06-26 07:38 | MHC.PT.EP ---
[facility] [place] [facility] [place] [facility] [place] [facility] [address] Ramiro Dodson [address] [phone] F: [phone] F: [phone] F: [phone] F: [phone] Physical Therapy Plan of Care Date of Evaluation: Date of Surgery: N/A Diagnosis: Sacroiliitis Assessment: Pt is a 61 year old woman who reports to therapy with a signs and symptoms consistent with sacroiliitis. Self reported limitations include difficulty walking for longer than 30 minutes, sitting for prolonged periods, stairs, getting into and out of the shower and getting dressed. Upon examination, impairments include significant weakness in the hips/glutes/quads belkis (R>L), decreased endurance, TTP to paraspinals/QL (R>L), hypomobile SI joint and poor posture. Pt shows fair rehab potential 2* to general disease prognosis, age and comorbidities. Pt will benefit from skilled PT for 2x/6 weeks to address impairments and will be reassessed in 6 weeks to see if further treatment is necessary. Frequency and Duration: The patient will be seen 2x/6 weeks Short Term Goals: 1. Pt will be I in HEP in 2 weeks in order to maximize benefits of therapy. 2. Pt will increase lumbar ROM to WFL with pain <3/10 in 3 weeks in order to transfer from supine to sit with ease. Fish Hatchery Supervisor Goals: 1. Pt will be able to walk for >30 minutes with <3/10 pain in 6 weeks in order to demonstrate an increase in strength and ability to function in daily life. 2. Pt will increase all hip MMT by at least 1 grade in 6 weeks to demonstrate an increase in strength and ability to climb stairs. Treatment Plan: Modalities to reduce pain, spasms and effusion. Manual therapy to restore motion and function. Therapeutic exercise to improve strength and flexibility. Neuromuscular re-education for posture and balance. Therapeutic activities to return to functional activities of daily living. Electronically signed by: Geoavnna Giraldo PT, DPT Please sign and return to therapist. Thank you for your referral.
== END 2021-09-10 11:29 | disposition home or self-care (01) ==
LOC: HO.PT 16:00
PROVIDERS: Visit Provider Anesthesiology
DX: M46.1 Sacroiliitis, not elsewhere classified (principal); M47.812 Spondylosis without myelopathy or radiculopathy, cervical region; M47.816 Spondylosis without myelopathy or radiculopathy, lumbar region; M51.36 Other intervertebral disc degeneration, lumbar region
CPT/HCPCS: 97110; 97140; 97162

== ENCOUNTER 2021-08-14 17:02 | Outpatient (REF) | payer OTHER, SELFPAY ==
--- NOTE | ~2021-08-14 | XR_ITS ---
EXAMINATION: XR LUMBOSACRAL SPINE CLINICAL INFORMATION: Sacroiliitis COMPARISON: 04/17/2021 TECHNIQUE: Three views of the lumbosacral spine. FINDINGS: No fracture or subluxation. Vertebral body height and alignment maintained. Mild disc space narrowing at L4-L5 and L5-S1. Moderate endplate osteophytes throughout the lumbar spine. Facet arthropathy at the lower lumbar spine. The sacroiliac joints are symmetric. No abnormal sclerosis. No fusion. Normal bowel gas pattern. XR/XR lumbar spine 2-3V IMPRESSION: Multilevel degenerative changes throughout the lumbar spine. Unremarkable appearance of the sacroiliac joints.
== END 2021-08-14 17:03 | disposition home or self-care (01) ==
LOC: HO.XRAY 17:02
PROVIDERS: PCP Internal Medicine; Visit Provider Internal Medicine
DX: M46.1 Sacroiliitis, not elsewhere classified (principal)
CPT/HCPCS: 72100

== ENCOUNTER → 2021-09-10 13:41 | Outpatient (BNVA) | payer OTHER, SELFPAY | PROVIDERS: PCP Internal Medicine; Visit Provider Anesthesiology | DX: M47.816 Spondylosis without myelopathy or radiculopathy, lumbar region (principal); M47.812 Spondylosis without myelopathy or radiculopathy, cervical region; M51.36 Other intervertebral disc degeneration, lumbar region; M46.1 Sacroiliitis, not elsewhere classified | CPT/HCPCS: 99212 ==

== ENCOUNTER 2021-09-12 11:45 | Outpatient (REF) | payer OTHER, SELFPAY ==
[2021-09-12 13:12] LABS: MANUAL DIFF FLAG NO
[2021-09-12 13:32] LABS: Basophils Percent Auto 0.4 % (0-2); Eosinophils Absolute Auto 0.5 X10*3/uL (0.0-0.4); Hematocrit 41.5 % (37.0-47.0); Hemoglobin 13.8 g/dl (12.0-16.0); Imm Gran Abs Auto 0.05 X10*3/uL (0.00-0.03); Imm Gran Pct Auto 0.6 % (0.0-0.4); Lymphocytes Absolute Auto 1.9 X10*3/uL (1.2-4.9); Lymphocytes Percent Auto 21.4 % (20-40); Mean Corpuscular HGB Conc 33.3 g/dl (31.0-35.0); Mean Corpuscular Hemoglobin 30.7 pg (27.0-33.0); Mean Corpuscular Volume 92.4 fL (80.0-98.0); Mean Platelet Volume 11.5 fL (9.4-12.3); Monocytes Absolute Auto 0.5 X10*3/uL (0.1-1.2); Monocytes Percent Auto 5.8 % (2-11); Neutrophils Percent Auto 66.8 % (45-73); Platelet Count 204 X10*3/uL (160-400); Red Blood Count 4.49 X10*6/uL (4.20-5.50); Red Cell Distribution Width 11.8 % (11.0-16.0)
[2021-09-12 13:57] LABS: Alanine Aminotransferase 24 U/L (0-31); Albumin Level 3.9 g/dL (3.5-5.0); Alkaline Phosphatase 112 U/L (39-117); Anion Gap 13 (12-20); Aspartate Amino Transferase 21 U/L (5-31); Bilirubin Total 0.6 mg/dL (0.0-1.0); Blood Urea Nitrogen 16 mg/dL (9-16); C Reactive Protein 1.32 mg/dL (< or = 0.50); Calcium 9.9 mg/dL (8.4-10.2); Carbon Dioxide 29 mmol/L (22-29); Chloride 104 mmol/L (96-108); Estimated Glomerular Filt Rate > 60; Glucose Random 166 mg/dL (60-115); Potassium 3.9 mmol/L (3.3-5.1); Sodium 142 mmol/L (135-145); Total Protein 7.3 g/dL (6.5-8.0)
[2021-09-12 14:13] LABS: Erythrocyte Sedimentation Rate 37 MM/HR (0-20)
== END 2021-09-12 11:46 | disposition home or self-care (01) ==
LOC: HO.LAB 11:45
PROVIDERS: PCP Internal Medicine; Visit Provider Nurse Practitioner Family
DX: M05.9 Rheumatoid arthritis with rheumatoid factor, unspecified (principal); M47.816 Spondylosis without myelopathy or radiculopathy, lumbar region
CPT/HCPCS: 36415; 80053; 85025; 85652; 86140; 99212

== ENCOUNTER → 2021-10-22 13:05 | Outpatient (BNVA) | payer OTHER, SELFPAY | PROVIDERS: PCP Internal Medicine; Visit Provider Internal Medicine | DX: J45.909 Unspecified asthma, uncomplicated (principal); J98.4 Other disorders of lung; E66.01 Morbid (severe) obesity due to excess calories; Z68.41 Body mass index [BMI] 40.0-44.9, adult; Z79.899 Other long term (current) drug therapy | CPT/HCPCS: 99212 ==

== ENCOUNTER → 2021-11-17 14:05 | Outpatient (BNVA) | payer OTHER, SELFPAY | PROVIDERS: PCP Internal Medicine; Visit Provider Obstetrics & Gynecology | DX: Z01.419 Encounter for gynecological examination (general) (routine) without abnormal findings (principal); N95.0 Postmenopausal bleeding | CPT/HCPCS: 99212 ==

== ENCOUNTER 2021-11-18 06:22 | Outpatient (REF) | payer OTHER, SELFPAY ==
--- NOTE | ~2021-11-18 | FL_ITS ---
EXAMINATION: XR FLUOROSCOPY WITH IMAGES CLINICAL INFORMATION: Sacroiliitis COMPARISON: Lumbar spine of August 14, 2021 TECHNIQUE: Fluoroscopy performed by Dr. Chip Richardson. Fluoroscopy time: 0.2 minutes DAP: 1.96 Gycm2 Images: 2 FINDINGS: [place] and contrast seen overlying both sacroiliac joints. FL/FL guidance in treatment room IMPRESSION: Bilateral SI joint injection.
== END 2021-11-18 06:23 | disposition home or self-care (01) ==
LOC: HO.RADIR 06:22
PROVIDERS: Visit Provider Anesthesiology
DX: M46.1 Sacroiliitis, not elsewhere classified (principal); M47.816 Spondylosis without myelopathy or radiculopathy, lumbar region; M51.36 Other intervertebral disc degeneration, lumbar region; M47.812 Spondylosis without myelopathy or radiculopathy, cervical region
CPT/HCPCS: 27096; J3300; Q9967

== ENCOUNTER → 2021-12-03 13:58 | Outpatient (BNVA) | payer OTHER, SELFPAY | PROVIDERS: PCP Internal Medicine; Visit Provider Internal Medicine | DX: J98.4 Other disorders of lung (principal); J45.909 Unspecified asthma, uncomplicated; M54.50 Low back pain, unspecified; M46.1 Sacroiliitis, not elsewhere classified; E11.9 Type 2 diabetes mellitus without complications; I10 Essential (primary) hypertension; E78.5 Hyperlipidemia, unspecified; Z88.8 Allergy status to other drugs, medicaments and biological substances; Z79.4 Long term (current) use of insulin; Z79.899 Other long term (current) drug therapy | CPT/HCPCS: 99212 ==

== ENCOUNTER 2021-12-09 13:05 | Outpatient (REF) | payer OTHER, SELFPAY ==
--- NOTE | ~2021-12-09 | US_ITS ---
EXAMINATION: US PELVIS CLINICAL INFORMATION: Postmenopausal bleeding. COMPARISON: CT abdomen pelvis 05/30/2020. TECHNIQUE: Ultrasound of the pelvis is performed using both transabdominal and transvaginal transducers along with Doppler. Transvaginal imaging is performed due to inadequate visualization transabdominally. FINDINGS: Uterus: The uterus is anteverted and measures 8.0 x 4.0 x 6.2 cm. The double wall endometrial thickness is 0.4 cm. The uterus is smooth in contour and has normal myometrial echogenicity. No visible fibroid. Adnexa: Both ovaries are not visualized. There is no free fluid in the cul-de-sac. US/US pelvic and transvaginal IMPRESSION: Bilateral ovaries are not seen. The uterus is unremarkable. There is no adnexal mass or free fluid.
== END 2021-12-09 13:06 | disposition home or self-care (01) ==
LOC: HO.US 13:05
PROVIDERS: PCP Internal Medicine; Visit Provider Obstetrics & Gynecology
DX: N95.0 Postmenopausal bleeding (principal)
CPT/HCPCS: 76830; 76856

== ENCOUNTER 2021-12-11 12:17 | Outpatient (REF) | payer OTHER, SELFPAY ==
[2021-12-11 13:25] LABS: MANUAL DIFF FLAG NO
[2021-12-11 13:50] LABS: Basophils Percent Auto 0.4 % (0-2); Eosinophils Absolute Auto 0.3 X10*3/uL (0.0-0.4); Eosinophils Percent Auto 2.5 % (0-4); Hematocrit 43.9 % (37.0-47.0); Hemoglobin 14.4 g/dl (12.0-16.0); Imm Gran Abs Auto 0.05 X10*3/uL (0.00-0.03); Imm Gran Pct Auto 0.5 % (0.0-0.4); Lymphocytes Absolute Auto 1.9 X10*3/uL (1.2-4.9); Lymphocytes Percent Auto 19.1 % (20-40); Mean Corpuscular HGB Conc 32.8 g/dl (31.0-35.0); Mean Corpuscular Hemoglobin 31.3 pg (27.0-33.0); Mean Corpuscular Volume 95.4 fL (80.0-98.0); Mean Platelet Volume 11.2 fL (9.4-12.3); Monocytes Absolute Auto 0.7 X10*3/uL (0.1-1.2); Neutrophils Percent Auto 70.5 % (45-73); Platelet Count 194 X10*3/uL (160-400); Red Cell Distribution Width 12.1 % (11.0-16.0); White Blood Count 9.9 X10*3/uL (4.8-10.8)
[2021-12-11 14:32] LABS: Erythrocyte Sedimentation Rate 21 MM/HR (0-20)
[2021-12-11 14:57] LABS: Alanine Aminotransferase 33 U/L (0-31); Albumin Level 3.8 g/dL (3.5-5.0); Alkaline Phosphatase 87 U/L (39-117); Anion Gap 11 (12-20); Aspartate Amino Transferase 24 U/L (5-31); Bilirubin Total 0.9 mg/dL (0.0-1.0); Blood Urea Nitrogen 20 mg/dL (9-16); C Reactive Protein 1.31 mg/dL (< or = 0.50); Calcium 9.8 mg/dL (8.4-10.2); Carbon Dioxide 32 mmol/L (22-29); Chloride 102 mmol/L (96-108); Estimated Glomerular Filt Rate > 60; Glucose Random 193 mg/dL (60-115); Sodium 141 mmol/L (135-145); Total Protein 6.9 g/dL (6.5-8.0)
== END 2021-12-11 12:18 | disposition home or self-care (01) ==
LOC: HO.LAB 12:17
PROVIDERS: PCP Internal Medicine; Visit Provider Nurse Practitioner Family
DX: M05.9 Rheumatoid arthritis with rheumatoid factor, unspecified (principal); M47.816 Spondylosis without myelopathy or radiculopathy, lumbar region; Z79.899 Other long term (current) drug therapy
CPT/HCPCS: 36415; 80053; 85025; 85652; 86140; 99212

== ENCOUNTER → 2021-12-17 13:12 | Outpatient (BNVA) | payer OTHER, SELFPAY | PROVIDERS: PCP Internal Medicine; Visit Provider Anesthesiology | DX: M47.816 Spondylosis without myelopathy or radiculopathy, lumbar region (principal); M47.812 Spondylosis without myelopathy or radiculopathy, cervical region; M51.36 Other intervertebral disc degeneration, lumbar region; M46.1 Sacroiliitis, not elsewhere classified | CPT/HCPCS: 99212 ==

== ENCOUNTER 2021-12-19 11:54 | Emergency (ER) | payer OTHER, SELFPAY ==
--- NOTE | ~2021-12-19 | XR_ITS ---
EXAMINATION: XR CHEST CLINICAL INFORMATION: Cough and wheezing COMPARISON: Shoulder films 01/07/2021. Chest films from 12/18/2020 and prior TECHNIQUE: 2 views of the chest were obtained. FINDINGS: Chronic bronchial wall thickening. No pneumonia. No effusion or pneumothorax. Chronic minor eventration of the right diaphragm. Stable prominence of the cardiac silhouette. No pulmonary edema. No mediastinal mass or adenopathy. Nonobstructive gas pattern. No acute osseous finding. XR/XR chest 2V IMPRESSION: No acute disease. Chronic airways disease.
--- NOTE | ~2021-12-19 | CT_ITS ---
EXAMINATION: CT ANGIOGRAM OF THE CHEST WITH AND WITHOUT CONTRAST (CT PULMONARY ANGIOGRAM FOR PE) CLINICAL INFORMATION: Reason for Exam sob, + dimer COMPARISON: Chest radiograph performed same day TECHNIQUE: Prior to contrast administration, noncontrast localization images were obtained. Subsequently, multidetector volumetric imaging was performed from the thoracic inlet to below the diaphragms following the administration of 71 mL Omnipaque 350 intravenous contrast. No contrast reaction reported Sagittal, coronal, and MIP oblique sagittal reformatted images were obtained on the CT workstation, uploaded to PACS, and reviewed. This CT examination was performed using dose optimization techniques as appropriate, variously including the following: *Automated exposure control *Adjustment of mA and/or kV according to patient size (this includes techniques or standardized protocols for targeted exams where dose is matched to indication/reason for exam; i.e. extremities or head) *Use of iterative reconstruction technique Total exam dose-length product 504 mGy-cm FINDINGS: QUALITY OF STUDY/CONTRAST BOLUS: Suboptimal. PULMONARY ARTERIES: Respiratory motion limits evaluation for subsegmental pulmonary emboli. No central, lobar or segmental pulmonary emboli. THORACIC AORTA: Left internal carotid artery arises from the right brachiocephalic artery, with a 2 vessel arch. Aorta is normal in caliber. LUNG: Scattered bandlike areas of atelectasis. A 0.7 x 0.5 cm solid right upper lobe pulmonary nodule, 7:175, average diameter 0.6 cm. A 5 mm solid left lower lobe pulmonary nodule along the minor fissure, morphologically resembling a benign intrapulmonary lymph node. Mosaic attenuation which could be seen in the setting of small airways or small vessel disease. PLEURA: No pleural effusion or pneumothorax. MEDIASTINUM: Normal heart size. No pericardial effusion. No hilar or mediastinal lymphadenopathy. No evidence of septal bowing or right heart strain. CHEST WALL/AXILLA: No axillary or internal mammary lymphadenopathy. OSSEOUS STRUCTURES: No acute or suspicious osseous abnormality. UPPER ABDOMEN: Unremarkable. No reflux of contrast into the hepatic veins to suggest elevated right heart pressures. CT/CT angio chest PE protocol IMPRESSION: Respiratory motion limits evaluation for subsegmental pulmonary emboli. No central, lobar or segmental pulmonary emboli. A 6 mm average diameter solid right upper lobe pulmonary nodule. Assuming patient has no history of malignancy, recommend follow-up per Fleischner Society recommendations. According to the UPDATED 2017 Fleischner Society recommendations, the advised followup imaging for a single 6-8 mm solid nodule is: LOW RISK PATIENT: CT at 6-12 months, then consider CT at 18-24 months. HIGH RISK PATIENT: CT at 6-12 months, then at 18-24 months. Left internal carotid artery arises from the right brachiocephalic artery, with a 2 vessel arch. Mosaic attenuation which could be seen in the setting of small airways or small vessel disease. The report will be called to the ordering clinician by a [facility] [employer].
[2021-12-19 12:33] VITALS: BP 181/90; PULSE 89; RESP 22; TEMP 37.3; O2SAT 97; BMI 40.0
--- NOTE | 2021-12-19 12:38 | ECG_ITS ---
Test Reason : sob Blood Pressure : / mmHG Vent. Rate : 075 BPM Atrial Rate : 075 BPM P-R Int : 174 ms QRS Dur : 094 ms QT Int : 372 ms P-R-T Axes : 048 010 055 degrees QTc Int : 415 ms Normal sinus rhythm Minimal voltage criteria for LVH, may be normal variant ( [place] product ) Borderline ECG When compared with ECG of 13-DEC-2020 14:21, No significant change was found Referred By: Generic ED Physician Electronically Signed By:CARMEN CHEN MD
[2021-12-19 12:56] LABS: MANUAL DIFF FLAG NO
[2021-12-19 12:57] LABS: Basophils Percent Auto 0.3 % (0-2); Eosinophils Absolute Auto 0.4 X10*3/uL (0.0-0.4); Eosinophils Percent Auto 5.1 % (0-4); Hematocrit 39.5 % (37.0-47.0); Hemoglobin 13.3 g/dl (12.0-16.0); Imm Gran Abs Auto 0.07 X10*3/uL (0.00-0.03); Lymphocytes Absolute Auto 1.5 X10*3/uL (1.2-4.9); Lymphocytes Percent Auto 20.7 % (20-40); Mean Corpuscular HGB Conc 33.7 g/dl (31.0-35.0); Mean Corpuscular Volume 95.2 fL (80.0-98.0); Monocytes Absolute Auto 0.5 X10*3/uL (0.1-1.2); Monocytes Percent Auto 7.1 % (2-11); Neutrophils Absolute Auto 4.7 x10*3/uL (2.0-8.3); Neutrophils Percent Auto 65.8 % (45-73); Platelet Count 160 X10*3/uL (160-400); Red Blood Count 4.15 X10*6/uL (4.20-5.50); Red Cell Distribution Width 11.6 % (11.0-16.0); White Blood Count 7.2 X10*3/uL (4.8-10.8)
[2021-12-19 13:10] LABS: Anion Gap 10 (12-20); Blood Urea Nitrogen 14 mg/dL (9-16); Calcium 8.9 mg/dL (8.4-10.2); Carbon Dioxide 27 mmol/L (22-29); Chloride 108 mmol/L (96-108); Creatinine Clr Calc Pharmacy 91.6; Estimated Glomerular Filt Rate > 60; Glucose Random 148 mg/dL (60-115); Potassium 3.8 mmol/L (3.3-5.1); Sodium 141 mmol/L (135-145)
[2021-12-19 13:17] LABS: Troponin-I High Sensitivity < 3.5 ng/L (<3.5-17.0)
--- NOTE | 2021-12-19 16:59 | ED.SOB ---
HPI - SOB/Dyspnea General Chief Complaint: Dyspnea <Ana Hilario NP - Last Filed: 12/19/21 20:27> Stated Complaint: sob <Ana Hilario NP - Last Filed: 12/19/21 20:27> Time Seen by Provider: 12/19/21 16:46 <Ana Hilario NP - Last Filed: 12/19/21 20:27> Source: patient <Ana Hilario NP - Last Filed: 12/19/21 20:27> Mode of arrival: ambulatory <Ana Hilario NP - Last Filed: 12/19/21 20:27> Limitations: no limitations <Ana Hilario NP - Last Filed: 12/19/21 20:27> History of Present Illness HPI Narrative: 61-year-old female with a history of hypertension, diabetes, asthma here with reports of shortness of breath for 3 days with nonproductive cough, wheezing, chest and back discomfort with coughing. No fevers, chills, leg swelling, abdominal pain, vomiting or diarrhea. Using albuterol with continued symptoms <Ana Hilario NP - Last Filed: 12/19/21 20:27> Related Data Home Medications: Home Medications Medication Instructions Recorded Confirmed rosuvastatin 5 mg tablet (Crestor) 5 mg PO DAILY 07/11/20 12/17/21 bisacodyl 5 mg tablet,delayed 10 mg PO BEDTIME 07/26/20 12/17/21 release (Dulcolax (bisacodyl)) calcium carbonate 200 mg calcium 200 mg PO TID 07/26/20 12/17/21 (500 mg) chewable tablet (Tums) docusate sodium 100 mg capsule 100 mg PO BID 07/26/20 12/17/21 (Colace) dicyclomine 20 mg tablet mg PO 08/01/20 12/17/21 magnesium citrate 150 ml PO BID 08/01/20 12/17/21 fluticasone propionate 220 2 puff INHALATION BID 09/11/20 12/17/21 mcg/actuation HFA aerosol inhaler (Flovent HFA) Previous Rx's Medication Instructions Recorded albuterol sulfate 90 mcg/actuation 2 inh PO Q4H PRN #8.5 g 11/03/20 aerosol inhaler lisinopril 20 1 tab PO DAILY 90 Days #90 tab 10/01/20 mg-hydrochlorothiazide 25 mg tablet lancets 28 gauge #100 ea 11/12/20 blood-glucose meter (FreeStyle #1 ea 04/18/21 Lite Meter) lancets 28 gauge (FreeStyle #100 ea 04/18/21 Lancets) metformin 1,000 mg tablet 1,000 mg PO BID 90 Days #180 tab 05/01/21 blood sugar diagnostic (FreeStyle #50 ea 05/26/21 Lite Strips) linagliptin 5 mg tablet (Tradjenta) 5 mg PO DAILY 90 Days #90 tab 08/06/21 baclofen 10 mg tablet 10 mg PO BID #30 tab 09/02/21 cholecalciferol (vitamin D3) 25 25 mcg PO DAILY 90 Days #90 cap 09/02/21 mcg (1,000 unit) capsule lidocaine 4 % topical patch 1 patch TOPICAL Q24H PRN #10 ea 09/02/21 abatacept 125 mg/mL subcutaneous 125 mg SUBCUT QWEEK #4 ml 11/12/21 auto-injector ([employer]) cyclobenzaprine 10 mg tablet 10 mg PO BEDTIME 7 Days #7 tab 12/04/21 albuterol sulfate 2.5 mg/0.5 mL 5 mg INHALATION Q6H PRN #30 ea 12/19/21 solution for nebulization benzonatate 200 mg capsule 200 mg PO TID PRN #14 cap 12/19/21 prednisone 20 mg tablet 20 mg PO DAILY #7 tab 12/19/21 <Ana Hilario NP - Last Filed: 12/19/21 20:27> Allergies/Adverse Reactions: Allergies Allergy/AdvReac Type Severity Reaction Status Date / Time Flexeril Allergy Intermediate dizzy Verified 12/17/21 14:27 Norflex Allergy Intermediate dizzy Verified 12/17/21 14:27 sarilumab [From Sdzara] Allergy Intermediate Rash Verified 12/17/21 14:27 <Ana Hilario NP - Last Filed: 12/19/21 20:27> Review of Systems Review of Systems: Yes all other systems are reviewed and are negative <Ana Hilario NP - Last Filed: 12/19/21 20:27> Constitutional: Constitutional: Reports no additional constitutional complaints, Denies body ache(s), Denies chills, Denies fever(s), Denies headache(s) and Denies weakness <Ana Hilario NP - Last Filed: 12/19/21 20:27> Eyes: Eyes: Reports no additional eye complaints and Denies change in vision <Ana Hilario NP - Last Filed: 12/19/21 20:27> ENT: Reports system reviewed and no additional complaints, except as documented, Denies dizziness, Denies headache(s), Denies nasal congestion, Denies nasal discharge and Denies neck pain <Ana Hilario NP - Last Filed: 12/19/21 20:27> Cardiovascular: Cardiovascular: Reports no additional cardiovascular complaints, Reports chest pain (w/ coughing only ), Denies leg edema and Reports dyspnea <Ana Hilario NP - Last Filed: 12/19/21 20:27> Respiratory: Respiratory: Reports no additional respiratory complaints, Reports cough and Reports dyspnea <Ana Hilario NP - Last Filed: 12/19/21 20:27> Gastrointestinal: Gastrointestinal: Reports no additional gastrointestinal complaints, Denies abdominal pain, Denies diarrhea, Denies nausea and Denies vomiting <Ana Hilario NP - Last Filed: 12/19/21 20:27> Genitourinary: Genitourinary: Reports no additional female genitourinary complaints and Denies urinary incontinence <Ana Hilario NP - Last Filed: 12/19/21 20:27> Musculoskeletal: Musculoskeletal: Reports no additional musculoskeletal complaints, Reports back pain (w/ coughing only ), Denies arthralgias, Denies joint swelling, Denies neck pain, Denies numbness and Denies tingling <Ana Hilario NP - Last Filed: 12/19/21 20:27> Integumentary/Breasts: Skin/Breast: Reports system reviewed and no additional complaints, except as docu and Denies rash <Ana Hilario NP - Last Filed: 12/19/21 20:27> Neurologic: Reports system reviewed and no additional complaints, except as documented, Denies Abnormal speech present, Denies dizziness, Denies headache(s), Denies numbness, Denies tingling and Denies weakness <Ana Hilario NP - Last Filed: 12/19/21 20:27> [facility]LY [facility] Past Medical History Attestation statement: The following information was validated with the patient. <Ana Hilario NP - Last Filed: 12/19/21 20:27> Source: old records reviewed and nursing notes reviewed <Ana Hilario NP - Last Filed: 12/19/21 20:27> Medical History: Medical History Asthma Asthma Burning with urination Costovertebral angle tenderness Diabetes Disc degeneration, lumbar Dyslipidemia Essential hypertension Morbid obesity Pleuritic pain Renal calculi Restrictive lung disease Rheumatoid arthritis Sacroiliitis Sacroiliitis Seropositive rheumatoid arthritis Spondylosis of cervical spine Spondylosis of lumbar spine Vaginal modesta <Ana Hilario NP - Last Filed: 12/19/21 20:27> Surgical History: Surgical History History of cholecystectomy History of surgery on wrist Hx of colonoscopy (09/01/19) <Ana Hilario NP - Last Filed: 12/19/21 20:27> Family History Family History: Family History Father Diabetes mellitus Myocardial infarction Hypertension CVD (cardiovascular disease) Mother Diabetes mellitus CVD (cardiovascular disease) Sister No problems noted. Son No problems noted. Son No problems noted. Son No problems noted. Daughter Thyroiditis Daughter No problems noted. Daughter No problems noted. Daughter No problems noted. Daughter No problems noted. <Ana Hilario NP - Last Filed: 12/19/21 20:27> Social History Social History: Social History Housing: Apartment Alcohol intake: never Patient Tobacco Use Status: Never used Tobacco e-Cigarette/Vaping Use: Never Used Second Hand Smoke Exposure: No Advance Directives: No Advance Directives Information Provided: No service: No Current occupational status: disabled Sexual orientation: Straight/Heterosexual Gender identity: Female <Ana Hilario NP - Last Filed: 12/19/21 20:27> Physical Exam Vital Signs: Vital Signs: Last Vital Signs Temp 98.6 F 12/19/21 19:40 Pulse 83 12/19/21 21:55 Resp 16 12/19/21 21:55 BP 147/74 H 12/19/21 21:55 Pulse Ox 98 12/19/21 21:55 BMI result Body Mass Index 40.0 <Ana Hilario NP - Last Filed: 12/19/21 20:27> Const: General: cooperative, healthy appearing, comfortable and no acute distress <Ana Hilario NP - Last Filed: 12/19/21 20:27> Orientation/consciousness: patient oriented x3 <Ana Hilario NP - Last Filed: 12/19/21 20:27> Limitations: no limitations <Ana Hilario NP - Last Filed: 12/19/21 20:27> HENMT: Head: Yes normal to inspection <Ana Hilario NP - Last Filed: 12/19/21 20:27> Ears: hearing grossly normal bilaterally <Ana Hilario NP - Last Filed: 12/19/21 20:27> General nose exam: Normal external nose present <Ana Hilario NP - Last Filed: 12/19/21 20:27> Face and sinus: Yes normal facial exam <Ana Hilario NP - Last Filed: 12/19/21 20:27> Mouth: Normal oral and palatal mucosa present <Ana Hilario NP - Last Filed: 12/19/21 20:27> Throat: Yes posterior oropharynx normal <Ana Hilario NP - Last Filed: 12/19/21 20:27> Eyes: General: appearance normal, both eyes and all related structures <Ana Hilario NP - Last Filed: 12/19/21 20:27> Pupils: Equal, round and reactive pupils present <Ana Hilario NP - Last Filed: 12/19/21 20:27> Neck: Neck: Yes normal visual inspection <Ana Hilario NP - Last Filed: 12/19/21 20:27> Chest: Chest palpation & inspection: normal inspection of the chest <Ana Hilario NP - Last Filed: 12/19/21 20:27> Resp: Other: diminished breath sounds throughout, mild wheezing <Ana Hilario NP - Last Filed: 12/19/21 20:27> Effort & Inspection: normal respiratory effort <Ana Hilario NP - Last Filed: 12/19/21 20:27> Cardio: Rate: regular rate <Ana Hilario NP - Last Filed: 12/19/21 20:27> Rhythm: regular rhythm <Ana Hilario NP - Last Filed: 12/19/21 20:27> Peripheral pulses: Peripheral pulses 2+ throughout <Ana Hilario NP - Last Filed: 12/19/21 20:27> GI: Inspection: Yes normal to inspection <Ana Hilario NP - Last Filed: 12/19/21 20:27> Palpation (GI): Soft to palpation and nontender <Ana Hilario NP - Last Filed: 12/19/21 20:27> Auscultation: normal bowel sounds <Ana Hilario NP - Last Filed: 12/19/21 20:27> Back/Spine/Pelvis: Thoracic/Lumbar Spine: thoracic and lumbar spine normal to inspection <Ana Hilario NP - Last Filed: 12/19/21 20:27> Skin: General skin exam: no rashes or lesions noted <Ana Hilario NP - Last Filed: 12/19/21 20:27> Neuro: General: patient oriented x3, no focal motor deficits and normal sensation to monofilament <Ana Hilario NP - Last Filed: 12/19/21 20:27> Cranial nerves: Yes Equal, round and reactive pupils present <Ana Hilario NP - Last Filed: 12/19/21 20:27> Cognition (Neuro): normal cognition <Ana Hilario NP - Last Filed: 12/19/21 20:27> Speech: No Abnormal speech present <Ana Hilario NP - Last Filed: 12/19/21 20:27> Gait exam (Neuro): Normal gait present <Ana Hilario NP - Last Filed: 12/19/21 20:27> Motor exam (neuro): 5/5 motor strength present throughout <Ana Hilario NP - Last Filed: 12/19/21 20:27> Extrem: General: Yes normal to inspection, Yes no pedal edema and Yes no calf tenderness <Ana Hilario NP - Last Filed: 12/19/21 20:27> Course Course Course Narrative: 61-year-old female with a history of asthma here with reports of shortness of breath, nonproductive cough, chest and back discomfort with coughing for the last 3 days. Will check chest x-ray, labs, EKG a COVID screen/flu screen 1830- elevated D-dimer. Patient declined oral prednisone. Will place PIV and give IV magnesium and obtain CTA to rule 2030- CT is negative for PE. Does show an incidental finding of a pulmonary nodule. I explained this to the patient and her family. Initially she was quite hesitant about receiving prednisone as it normally increases her glucose levels. We discussed sending her home with prednisone for 5 days at 60 mg but she does not want this. She did agree to taking 20 mg daily of prednisone or 7 days. I also will refill her albuterol nebulized solution and give her something for cough. She has adequate supply of her albuterol ProAir at home. Reviewed worrisome signs and symptoms of when to return to the emergency department. Comfortable <Ana Hilario NP - Last Filed: 12/19/21 20:27> MDM - SOB/Dyspnea MDM Narrative Medical decision making narrative: viral syndrome, pneumonia, asthma exacebration <Ana Hilario NP - Last Filed: 12/19/21 20:27> Medical Records Attestation: I reviewed the patient's medical records. <Ana Hilario NP - Last Filed: 12/19/21 20:27> Lab Data Attestation: I reviewed the patient's lab results. <Ana Hilario NP - Last Filed: 12/19/21 20:27> Result diagrams: : 12/19/21 12:45 12/19/21 12:45 <Ana Hilario NP - Last Filed: 12/19/21 20:27> Labs: Lab Results 12/19/21 12/19/21 12/19/21 Range/Units 12:45 12:45 12:45 WBC 7.2 (4.8-10.8) X10*3/uL RBC 4.15 L (4.20-5.50) X10*6/uL Hgb 13.3 (12.0-16.0) g/dl Hct 39.5 (37.0-47.0) % MCV 95.2 (80.0-98.0) fL MCH 32.0 (27.0-33.0) pg MCHC 33.7 (31.0-35.0) g/dl RDW 11.6 (11.0-16.0) % Plt Count 160 (160-400) X10*3/uL MPV 11.0 (9.4-12.3) fL Immature Gran % (Auto) 1.0 H (0.0-0.4) % Neut % (Auto) 65.8 (45-73) % Lymph % (Auto) 20.7 (20-40) % [place] % (Auto) 7.1 (2-11) % Eos % (Auto) 5.1 H (0-4) % Baso % (Auto) 0.3 (0-2) % Lymph # (Auto) 1.5 (1.2-4.9) X10*3/uL [place] # (Auto) 0.5 (0.1-1.2) X10*3/uL Eos # (Auto) 0.4 (0.0-0.4) X10*3/uL Baso # (Auto) 0.0 (0.0-0.2) X10*3/uL Abs Immat Gran (auto) 0.07 H (0.00-0.03) X10*3/uL Absolute Neuts (auto) 4.7 (2.0-8.3) x10*3/uL Absolute Nucleated RBC 0.000 (0.0-0.012) X10*3/uL Nucleated RBC % (auto) 0.0 (0.0-0.2) /100WBC PT (9.9-13.0) SEC INR (0.9-1.1) D-Dimer High Sensitivty NG/ML Sodium 141 (135-145) mmol/L Potassium 3.8 (3.3-5.1) mmol/L Chloride 108 (96-108) mmol/L Carbon Dioxide 27 (22-29) mmol/L Anion Gap 10 L (12-20) BUN 14 (9-16) mg/dL Creatinine 0.71 (0.5-1.4) mg/dL Estim Creat Clear Calc 91.6 Estimated GFR > 60 Random Glucose 148 H (60-115) mg/dL Calcium 8.9 D (8.4-10.2) mg/dL Total Bilirubin 0.9 (0.0-1.0) mg/dL Direct Bilirubin 0.3 (0.0-0.5) mg/dL AST 20 (5-31) U/L ALT 26 (0-31) U/L Alkaline Phosphatase 80 (39-117) U/L Troponin I High Sens < 3.5 (<3.5-17.0) ng/L Total Protein 6.4 L (6.5-8.0) g/dL Albumin 3.6 (3.5-5.0) g/dL COVID-19 (JENY) (Negative) COVID-19 Clin Com Influenza Type A (ZOIE) (Negative) Influenza Type B (ZOIE) (Negative) Influenza A & B Note 12/19/21 12/19/21 12/19/21 Range/Units 17:27 17:27 17:27 WBC (4.8-10.8) X10*3/uL RBC (4.20-5.50) X10*6/uL Hgb (12.0-16.0) g/dl Hct (37.0-47.0) % MCV (80.0-98.0) fL MCH (27.0-33.0) pg MCHC (31.0-35.0) g/dl RDW (11.0-16.0) % Plt Count (160-400) X10*3/uL MPV (9.4-12.3) fL Immature Gran % (Auto) (0.0-0.4) % Neut % (Auto) (45-73) % Lymph % (Auto) (20-40) % [place] % (Auto) (2-11) % Eos % (Auto) (0-4) % Baso % (Auto) (0-2) % Lymph # (Auto) (1.2-4.9) X10*3/uL [place] # (Auto) (0.1-1.2) X10*3/uL Eos # (Auto) (0.0-0.4) X10*3/uL Baso # (Auto) (0.0-0.2) X10*3/uL Abs Immat Gran (auto) (0.00-0.03) X10*3/uL Absolute Neuts (auto) (2.0-8.3) x10*3/uL Absolute Nucleated RBC (0.0-0.012) X10*3/uL Nucleated RBC % (auto) (0.0-0.2) /100WBC PT 13.2 H (9.9-13.0) SEC INR 1.2 H (0.9-1.1) D-Dimer High Sensitivty 305 NG/ML Sodium (135-145) mmol/L Potassium (3.3-5.1) mmol/L Chloride (96-108) mmol/L Carbon Dioxide (22-29) mmol/L Anion Gap (12-20) BUN (9-16) mg/dL Creatinine (0.5-1.4) mg/dL Estim Creat Clear Calc Estimated GFR Random Glucose (60-115) mg/dL Calcium (8.4-10.2) mg/dL Total Bilirubin (0.0-1.0) mg/dL Direct Bilirubin (0.0-0.5) mg/dL AST (5-31) U/L ALT (0-31) U/L Alkaline Phosphatase (39-117) U/L Troponin I High Sens (<3.5-17.0) ng/L Total Protein (6.5-8.0) g/dL Albumin (3.5-5.0) g/dL COVID-19 (JENY) Negative (Negative) COVID-19 Clin Com See Note Influenza Type A (ZOIE) Negative (Negative) Influenza Type B (ZOIE) Negative (Negative) Influenza A & B Note See Note <Ana Hilario NP - Last Filed: 12/19/21 20:27> Imaging Data CT scan - chest: Attestation: I personally reviewed and interpreted this imaging study as follows: <Ana Hilario NP - Last Filed: 12/19/21 20:27> Radiologist's impression: Respiratory motion limits evaluation for subsegmental pulmonary emboli. No central, lobar or segmental pulmonary emboli. ? A 6 mm average diameter solid right upper lobe pulmonary nodule. Assuming patient has no history of malignancy, recommend follow-up per Fleischner Society recommendations. According to the UPDATED 2017 Fleischner Society recommendations, the advised followup imaging for a single 6-8 mm solid nodule is: ?? LOW RISK PATIENT: CT at 6-12 months, then consider CT at 18-24 months. ?? HIGH RISK PATIENT: CT at 6-12 months, then at 18-24 months. ? Left internal carotid artery arises from the right brachiocephalic artery, with a 2 vessel arch. ? Mosaic attenuation which could be seen in the setting of small airways or small vessel disease. ? <Ana Hilario NP - Last Filed: 12/19/21 20:27> ECG Data Attestation: I personally reviewed and interpreted this ECG as follows: <Ana Hilario NP - Last Filed: 12/19/21 20:27> ECG interpretation date: 12/19/21 <Ana Hilario NP - Last Filed: 12/19/21 20:27> ECG interpretation time: 12:35 <Ana Hilario NP - Last Filed: 12/19/21 20:27> Interpretation: normal sinus rhythm with a rate of 75, normal MO, normal QRS, normal QT <ARISTEO Pierre Last Filed: 12/19/21 20:27> Discharge Plan Discharge Clinical Impression: Asthma with exacerbation, Incidental pulmonary nodule <RAISTEO Pierre Last Filed: 12/19/21 20:27> Patient Disposition: Home, Self-Care <ARISTEO Pierre Last Filed: 12/19/21 20:27> Instructions: Asthma (DC), Pulmonary Nodules (ED) <Ana Hilario NP - Last Filed: 12/19/21 20:27> Additional Instructions: Your CT scan shows no signs of blood clot. There is a pulmonary nodule seen and you can follow-up with your primary care doctor in regards to this. Continue your albuterol as needed <Ana Hilario NP - Last Filed: 12/19/21 20:27> Prescriptions: New albuterol sulfate 2.5 mg/0.5 mL solution for nebulization 5 mg inhalation Q6H PRN (Reason: shortness of breath or wheezing) Qty: 30 0RF benzonatate 200 mg capsule 200 mg PO TID PRN (Reason: cough) Qty: 14 0RF prednisone 20 mg tablet 20 mg PO DAILY Qty: 7 0RF No Action albuterol sulfate 90 mcg/actuation HFA aerosol inhaler 2 inh PO Q4H PRN (Reason: shortness of breath or wheezing) Qty: 8.5 1RF lisinopril-hydrochlorothiazide 20-25 mg tablet 1 tab PO DAILY 90 Days Qty: 90 3RF (DME) lancets 28 gauge misc See Rx Instructions lancet topical TID Qty: 100 11RF Rx Instructions: FREESTYLE LITE E11.9 ONCE A DAY (DME) blood-glucose meter [FreeStyle Lite Meter] Kit See Rx Instructions .ROUTE .MEDSUPPLY Qty: 1 0RF Rx Instructions: E11.9 ONCE A DAY (DME) lancets [FreeStyle Lancets] 28 gauge misc See Rx Instructions .ROUTE .MEDSUPPLY Qty: 100 11RF Rx Instructions: Use 1 lancet once a day as needed (DME) FreeStyle Lite Strips Strip See Rx Instructions .ROUTE .MEDSUPPLY Qty: 50 11RF Rx Instructions: Use 1 test strip once a day [employer] 125 mg/mL auto-injector 125 mg subcut QWEEK Qty: 4 3RF rosuvastatin [Crestor] 5 mg tablet 5 mg PO DAILY 0RF baclofen 10 mg tablet 10 mg PO BID Qty: 30 0RF Rx Instructions: Use 1 tab twice daily as needed for severe back pain lidocaine 4 % adhesive patch,medicated 1 patch topical Q24H PRN (Reason: pain) Qty: 10 0RF Rx Instructions: may leave on for up to 12 hrs cholecalciferol (vitamin D3) 25 mcg (1,000 unit) capsule 25 mcg PO DAILY 90 Days Qty: 90 1RF Flovent HFA 220 mcg/actuation HFA aerosol inhaler 2 puff inhalation BID 0RF metformin 1,000 mg tablet 1,000 mg PO BID 90 Days Qty: 180 1RF Tradjenta 5 mg tablet 5 mg PO DAILY 90 Days Qty: 90 1RF cyclobenzaprine 10 mg tablet 10 mg PO BEDTIME 7 Days Qty: 7 0RF bisacodyl [Dulcolax (bisacodyl)] 5 mg tablet,delayed release (DR/EC) 10 mg PO BEDTIME 0RF docusate sodium [Colace] 100 mg capsule 100 mg PO BID 0RF calcium carbonate [Tums] 200 mg calcium (500 mg) tablet,chewable 200 mg PO TID 0RF magnesium citrate Solution 150 ml PO BID 0RF dicyclomine 20 mg tablet PO 0RF <Ana Hilario NP - Last Filed: 12/19/21 20:27> Referrals: Aniyah Gonzalez MD [Primary Care Provider] - 1 week ( for persistent symptoms) <Ana Hilario NP - Last Filed: 12/19/21 20:27> Interventions: ED Discharge Assessment Last Done: 12/19/21 21:56 <Ana Hilario NP - Last Filed: 12/19/21 20:27> Discharge Date/Time: 12/19/21 21:57 <Ana Hilario NP - Last Filed: 12/19/21 20:27> Print Language: Yoruba <Ana Hilario NP - Last Filed: 12/19/21 20:27>
[2021-12-19] MEDS: Albuterol/Iprat 2.5/0.5MG 3 ML AMPUL.NEB INHALE (17:13)
[2021-12-19 17:16] VITALS: BP 157/75; PULSE 91; O2SAT 98
[2021-12-19 17:19] LABS: Alanine Aminotransferase 26 U/L (0-31); Albumin Level 3.6 g/dL (3.5-5.0); Alkaline Phosphatase 80 U/L (39-117); Aspartate Amino Transferase 20 U/L (5-31); Bilirubin Direct 0.3 mg/dL (0.0-0.5); Bilirubin Total 0.9 mg/dL (0.0-1.0); Total Protein 6.4 g/dL (6.5-8.0)
[2021-12-19 17:53] LABS: Influenza A Negative (Negative); Influenza B2 Negative (Negative)
[2021-12-19 17:54] LABS: COVID-19 Test Negative (Negative)
[2021-12-19 17:58] LABS: INTERNATIONAL NORM RATIO 1.2 (0.9-1.1); Prothrombin Time 13.2 SEC (9.9-13.0)
[2021-12-19 18:00] LABS: D Dimer High Sensitivity 305 NG/ML
[2021-12-19] MEDS: iohexoL 350 MG/ML 100 ML INFUS..BTL IV (19:00)
[2021-12-19 19:40] VITALS: BP 165/78; PULSE 84; RESP 16; TEMP 37; O2SAT 99
[2021-12-19] MEDS: Magnesium Sulfate/H2O 2 GM/50 ML PIGGYBACK IV (19:43)
[2021-12-19 21:55] VITALS: BP 147/74; PULSE 83; RESP 16; O2SAT 98
== END 2021-12-19 21:57 | disposition home or self-care (01) ==
PROVIDERS: Nurse Practitioner Family; Emergency Provider Emergency Medicine; PCP Internal Medicine
DX: J45.901 Unspecified asthma with (acute) exacerbation (principal); R91.1 Solitary pulmonary nodule; R79.1 Abnormal coagulation profile; I10 Essential (primary) hypertension; E11.9 Type 2 diabetes mellitus without complications; J45.909 Unspecified asthma, uncomplicated; Z20.822 Contact with and (suspected) exposure to COVID-19
CPT/HCPCS: 36415; 71046; 71275; 80048; 80076; 84484; 85025; 85379; 85610; 87502; 87635; 93005; 96365; 96366; 99284; J3475; Q9967

== ENCOUNTER 2021-12-25 16:28 | Outpatient (REF) | payer OTHER, SELFPAY ==
--- NOTE | ~2021-12-25 | US_ITS ---
EXAMINATION: US RETROPERITONEAL LIMITED (RENAL ONLY) CLINICAL INFORMATION: Calculus of kidney. COMPARISON: X-ray [facility] 08/07/2021. CT abdomen and pelvis 06/07/2020. Ultrasound abdomen complete 03/20/2020. TECHNIQUE: Real-time imaging of the kidneys. FINDINGS: RIGHT KIDNEY: 12.0 x 4.7 x 4.8 cm (SAG x AP x TRV). The kidney is normal in size, contour, and echogenicity. Renal cortical thickness is normal. No calculi or focal parenchymal lesions. No hydronephrosis. LEFT KIDNEY: 11.1 x 4.8 x 4.4 cm (SAG x AP x TRV). The kidney is normal in size, contour, and echogenicity. Renal cortical thickness is normal. No calculi or focal parenchymal lesions. No hydronephrosis. US/US renal BI IMPRESSION: Unremarkable examination..
== END 2021-12-25 16:29 | disposition home or self-care (01) ==
LOC: HO.US 16:28
PROVIDERS: PCP Internal Medicine; Visit Provider Internal Medicine
DX: N20.0 Calculus of kidney (principal)
CPT/HCPCS: 76775

== ENCOUNTER → 2022-01-13 12:55 | Outpatient (BNVA) | payer OTHER, SELFPAY | PROVIDERS: PCP Internal Medicine; Visit Provider Obstetrics & Gynecology | DX: N95.0 Postmenopausal bleeding (principal) | CPT/HCPCS: 99212 ==

== ENCOUNTER → 2022-02-25 12:25 | Outpatient (BNVA) | payer OTHER, SELFPAY | PROVIDERS: PCP Internal Medicine; Visit Provider Nurse Practitioner Family | DX: M47.816 Spondylosis without myelopathy or radiculopathy, lumbar region (principal); M05.9 Rheumatoid arthritis with rheumatoid factor, unspecified | CPT/HCPCS: 99212 ==

== ENCOUNTER 2022-02-28 11:06 | Emergency (ER) | payer OTHER, SELFPAY ==
[2022-02-28 11:29] VITALS: BP 187/97; PULSE 75; RESP 18; TEMP 36.1; O2SAT 98; BMI 42.3
--- NOTE | 2022-02-28 12:23 | ED.BACK ---
HPI - Back Pain/Injury General Chief Complaint: Back Pain/Injury Stated Complaint: lump on back Time Seen by Provider: 02/28/22 12:22 Source: patient Mode of arrival: ambulatory Limitations: no limitations History of Present Illness HPI Narrative: 62-year-old Indonesian-speaking female with a history of chronic back pain, lumbar spondylosis, cervical spondylosis, HLD, HTN, DM, rheumatoid arthritis, lumbar disc degeneration, sacroiliitis who presents to the ER for acute on chronic right-sided middle back pain. She reports for the last few days the pain has been worse with any movement. She denies any injury or heavy lifting. Her son was giving her massage to the area last night and noted a small reddened area right below the bra strap. She denies any fever or chills. She denies any burning rashes. She denies any urinary symptoms. No nausea or vomiting, blood in the urine. has been taking Motrin with little effect. She reports having gone to physical therapy and seeing her primary care doctor for this several times in the past. MD elicited complaint: back pain Pertinent past history: prior back pain Onset (ago): month(s) Timing: constant Severity: severe Pain scale (0-10): 10 Similar Symptoms Previously: Yes Quality: sharp, stabbing and spasming Location: right upper back Radiation: none Exacerbating factors: movement and deep breaths Relieving factors: none Context: unknown Associated symptoms: denies other symptoms Treatments prior to arrival: NSAIDS Work related injury: No Related Data Home Medications Medication Instructions Recorded Confirmed rosuvastatin 5 mg tablet (Crestor) 5 mg PO DAILY 07/11/20 12/30/21 bisacodyl 5 mg tablet,delayed 10 mg PO BEDTIME 07/26/20 12/30/21 release (Dulcolax (bisacodyl)) calcium carbonate 200 mg calcium 200 mg PO TID 07/26/20 12/30/21 (500 mg) chewable tablet (Tums) docusate sodium 100 mg capsule 100 mg PO BID 07/26/20 12/30/21 (Colace) dicyclomine 20 mg tablet mg PO 08/01/20 12/30/21 magnesium citrate 150 ml PO BID 08/01/20 12/30/21 fluticasone propionate 220 2 puff INHALATION BID 09/11/20 12/30/21 mcg/actuation HFA aerosol inhaler (Flovent HFA) Previous Rx's Medication Instructions Recorded albuterol sulfate 90 mcg/actuation 2 inh PO Q4H PRN #8.5 g 08/13/20 aerosol inhaler lisinopril 20 1 tab PO DAILY 90 Days #90 tab 10/01/20 mg-hydrochlorothiazide 25 mg tablet lancets 28 gauge #100 ea 11/12/20 lancets 28 gauge (FreeStyle #100 ea 04/18/21 Lancets) metformin 1,000 mg tablet 1,000 mg PO BID 90 Days #180 tab 05/01/21 cholecalciferol (vitamin D3) 25 25 mcg PO DAILY 90 Days #90 cap 09/02/21 mcg (1,000 unit) capsule lidocaine 4 % topical patch 1 patch TOPICAL Q24H PRN #10 ea 09/02/21 abatacept 125 mg/mL subcutaneous 125 mg SUBCUT QWEEK #4 ml 11/12/21 auto-injector ([employer] ClickJect) albuterol sulfate 2.5 mg/0.5 mL 5 mg INHALATION Q6H PRN #30 ea 12/19/21 solution for nebulization benzonatate 200 mg capsule 200 mg PO TID PRN #14 cap 12/19/21 prednisone 20 mg tablet 20 mg PO DAILY #7 tab 12/19/21 guaifenesin 1,200 mg tablet, 1,200 mg PO BID 5 Days #10 tab 12/30/21 extended release 12 hr (Mucinex) methocarbamol 750 mg tablet 750 mg PO Q8H 7 Days #21 tab 12/30/21 blood sugar diagnostic (FreeStyle #50 ea 01/13/22 Lite Strips) blood-glucose meter (FreeStyle #1 ea 01/13/22 Lite Meter) linagliptin 5 mg tablet (Tradjenta) 5 mg PO DAILY 90 Days #90 tab 02/20/22 cyclobenzaprine 10 mg tablet 10 mg PO Q8H PRN #14 tab 02/28/22 Allergies Allergy/AdvReac Type Severity Reaction Status Date / Time Flexeril Allergy Intermediate dizzy Verified 02/28/22 11:43 Norflex Allergy Intermediate dizzy Verified 02/28/22 11:43 sarilumab [From Wood] Allergy Intermediate Rash Verified 02/28/22 11:43 Review of Systems Review of Systems: Constitutional: No Fever, No Chills Cardiovascular: No Chest Pain, No SOB Respiratory: No Cough, No Sputum Gastrointestinal: No Nausea, No Vomiting, No Diarrhea, No abdominal Pain Genitourinary: No Dysuria, No Urinary Frequency, No Hematuria Musculoskeletal: No joint pain, + Myalgias, +Back pain Skin: + Skin Lesions, No rash Neuro: No Weakness, No Numbness, No Dizziness, No Headache Psych: No Anxiety/Panic, No Depression Heme/Lymph: No Bruising, No Lymphadenopathy PMFSH Past Medical History Medical History Asthma Asthma Asthma exacerbation Burning with urination Costovertebral angle tenderness Diabetes Disc degeneration, lumbar Dyslipidemia Essential hypertension Hospital discharge follow-up Morbid obesity Pleuritic pain Renal calculi Restrictive lung disease Rheumatoid arthritis Sacroiliitis Sacroiliitis Seropositive rheumatoid arthritis Spondylosis of cervical spine Spondylosis of lumbar spine Vaginal modesta Surgical History History of cholecystectomy History of surgery on wrist Hx of colonoscopy (09/01/19) Family History Family History Father Diabetes mellitus Myocardial infarction Hypertension CVD (cardiovascular disease) Mother Diabetes mellitus CVD (cardiovascular disease) Sister No problems noted. Son No problems noted. Son No problems noted. Son No problems noted. Daughter Thyroiditis Daughter No problems noted. Daughter No problems noted. Daughter No problems noted. Daughter No problems noted. Social History Social History Housing: Apartment Alcohol intake: never Patient Tobacco Use Status: Never used Tobacco e-Cigarette/Vaping Use: Never Used Second Hand Smoke Exposure: No Advance Directives: No Advance Directives Information Provided: No service: No Current occupational status: disabled Sexual orientation: Straight/Heterosexual Gender identity: Female Physical Exam Vital Signs: Vital Signs: Last Vital Signs Temp 96.9 F 02/28/22 11:29 Pulse 75 02/28/22 11:29 Resp 18 02/28/22 11:29 BP 187/97 H 02/28/22 11:29 Pulse Ox 98 02/28/22 11:29 BMI result Body Mass Index 42.3 Appearance: Alert. Oriented X3. No acute distress. HEENT: normal inspection CVS: Normal heart rate and rhythm. Pulses normal. Respiratory: No respiratory distress. Skin: Skin warm and dry. Normal skin color. Normal skin turgor. No rashes. Back: small circular erythematous area on right flank under the bra strap, tender with central small pustule forming. soft tissue tenderness and spasm of the middle thoracic area. no midline tenderness of the spine, normal ROM Extremities: normal inspection x4, normal ROM Neuro: Oriented X 3. No motor deficit. No sensory deficit. Course Course Course Narrative: 62-year-old female presents to the ER for acute on chronic right-sided middle back pain. No trauma or injury. Examination reveals a small pustule to the area, minimally tender, and no evidence of shingles. The soft tissue of the middle thoracic back is tender and spastic. She has been taking Motrin with little affect. Will plan to start muscle relaxer and have her follow back up with her PCP. Very low clinical suspicion for pyelonephritis, kidney stone, lung or rib injury. Discharge Plan Discharge Clinical Impression: Chronic right-sided thoracic back pain Patient Disposition: Home, Self-Care Instructions: Back Pain (ED) Additional Instructions: Your pain is most likely due to muscle spasms. No bending, lifting or twisting. Use ice several times per day for 20 minutes at a time for the next 48 hours and then change to heat. Take medications as prescribed to help with pain and discomfort. Follow up with your Primary Care Doctor this week. If your pain worsens, if you develop new numbness, tingling, weakness, loss of function or incontinence call 911 or come back to the ER right away for evaluation. Prescriptions: New cyclobenzaprine 10 mg tablet 10 mg PO Q8H PRN (Reason: muscle spasm) Qty: 14 0RF No Action albuterol sulfate 90 mcg/actuation HFA aerosol inhaler 2 inh PO Q4H PRN (Reason: shortness of breath or wheezing) Qty: 8.5 1RF lisinopril-hydrochlorothiazide 20-25 mg tablet 1 tab PO DAILY 90 Days Qty: 90 3RF (DME) lancets 28 gauge misc See Rx Instructions lancet topical TID Qty: 100 11RF Rx Instructions: FREESTYLE LITE E11.9 ONCE A DAY (DME) lancets [FreeStyle Lancets] 28 gauge misc See Rx Instructions .ROUTE .MEDSUPPLY Qty: 100 11RF Rx Instructions: Use 1 lancet once a day as needed Orencia ClickJect 125 mg/mL auto-injector 125 mg subcut QWEEK Qty: 4 3RF (DME) FreeStyle Lite Strips Strip See Rx Instructions .ROUTE .MEDSUPPLY Qty: 50 11RF Rx Instructions: Use 1 test strip once a day (DME) blood-glucose meter [FreeStyle Lite Meter] Kit See Rx Instructions .ROUTE .MEDSUPPLY Qty: 1 0RF Rx Instructions: E11.9 ONCE A DAY Tradjenta 5 mg tablet 5 mg PO DAILY 90 Days Qty: 90 1RF albuterol sulfate 2.5 mg/0.5 mL solution for nebulization 5 mg inhalation Q6H PRN (Reason: shortness of breath or wheezing) Qty: 30 0RF benzonatate 200 mg capsule 200 mg PO TID PRN (Reason: cough) Qty: 14 0RF prednisone 20 mg tablet 20 mg PO DAILY Qty: 7 0RF rosuvastatin [Crestor] 5 mg tablet 5 mg PO DAILY 0RF lidocaine 4 % adhesive patch,medicated 1 patch topical Q24H PRN (Reason: pain) Qty: 10 0RF Rx Instructions: may leave on for up to 12 hrs cholecalciferol (vitamin D3) 25 mcg (1,000 unit) capsule 25 mcg PO DAILY 90 Days Qty: 90 1RF Flovent HFA 220 mcg/actuation HFA aerosol inhaler 2 puff inhalation BID 0RF metformin 1,000 mg tablet 1,000 mg PO BID 90 Days Qty: 180 1RF Mucinex 1,200 mg tablet extended release 12hr 1,200 mg PO BID 5 Days Qty: 10 0RF methocarbamol 750 mg tablet 750 mg PO Q8H 7 Days Qty: 21 0RF bisacodyl [Dulcolax (bisacodyl)] 5 mg tablet,delayed release (DR/EC) 10 mg PO BEDTIME 0RF docusate sodium [Colace] 100 mg capsule 100 mg PO BID 0RF calcium carbonate [Tums] 200 mg calcium (500 mg) tablet,chewable 200 mg PO TID 0RF magnesium citrate Solution 150 ml PO BID 0RF dicyclomine 20 mg tablet PO 0RF Referrals: Aniyah Gonzalez MD [Primary Care Provider] - (chronic back pain) Interventions: ED Discharge Assessment Last Done: 02/28/22 13:30 Discharge Date/Time: 02/28/22 13:34 Print Language: Indonesian
[2022-02-28] MEDS: Ketorolac Tromethamine 30 MG/ML VIAL IM (13:02)
[2022-02-28] MEDS: Cyclobenzaprine HCl 10 MG TABLET PO (13:03)
[2022-02-28] MEDS: oxyCODONE HCl Immed Release 5 MG TABLET PO (13:03)
== END 2022-02-28 13:34 | disposition home or self-care (01) ==
PROVIDERS: Emergency Provider Emergency Medicine Emergency Medical Services; PCP Internal Medicine
DX: M54.50 Low back pain, unspecified (principal); M54.6 Pain in thoracic spine; Z79.899 Other long term (current) drug therapy
CPT/HCPCS: 96372; 99283; 99284; J1885

== ENCOUNTER → 2022-04-01 13:51 | Outpatient (BNVA) | payer OTHER, SELFPAY | PROVIDERS: PCP Internal Medicine; Visit Provider Internal Medicine | DX: R91.8 Other nonspecific abnormal finding of lung field (principal); E66.01 Morbid (severe) obesity due to excess calories; J98.4 Other disorders of lung; R05.9 Cough, unspecified; Z68.41 Body mass index [BMI] 40.0-44.9, adult | CPT/HCPCS: 99212 ==

== ENCOUNTER 2022-04-16 08:05 | Outpatient (REF) | payer OTHER, SELFPAY ==
[2022-04-16 08:23] LABS: MANUAL DIFF FLAG NO
[2022-04-16 08:51] LABS: Basophils Percent Auto 0.3 % (0-2); Eosinophils Absolute Auto 0.4 X10*3/uL (0.0-0.4); Eosinophils Percent Auto 6.4 % (0-4); Hematocrit 38.7 % (37.0-47.0); Hemoglobin 12.9 g/dl (12.0-16.0); Imm Gran Abs Auto 0.03 X10*3/uL (0.00-0.03); Imm Gran Pct Auto 0.5 % (0.0-0.4); Lymphocytes Absolute Auto 0.7 X10*3/uL (1.2-4.9); Lymphocytes Percent Auto 12.1 % (20-40); Mean Corpuscular HGB Conc 33.3 g/dl (31.0-35.0); Mean Corpuscular Hemoglobin 31.5 pg (27.0-33.0); Mean Corpuscular Volume 94.4 fL (80.0-98.0); Mean Platelet Volume 11.6 fL (9.4-12.3); Monocytes Absolute Auto 0.4 X10*3/uL (0.1-1.2); Monocytes Percent Auto 7.6 % (2-11); Neutrophils Absolute Auto 4.2 x10*3/uL (2.0-8.3); Neutrophils Percent Auto 73.1 % (45-73); Platelet Count 157 X10*3/uL (160-400); Red Cell Distribution Width 11.9 % (11.0-16.0); White Blood Count 5.8 X10*3/uL (4.8-10.8)
[2022-04-16 09:24] LABS: Alanine Aminotransferase 30 U/L (0-31); Albumin Level 3.8 g/dL (3.5-5.0); Alkaline Phosphatase 92 U/L (39-117); Anion Gap 11 (12-20); Aspartate Amino Transferase 27 U/L (5-31); Bilirubin Total 0.9 mg/dL (0.0-1.0); Blood Urea Nitrogen 13 mg/dL (9-16); C Reactive Protein 1.38 mg/dL (< or = 0.50); Carbon Dioxide 28 mmol/L (22-29); Chloride 106 mmol/L (96-108); Estimated Glomerular Filt Rate > 60; Glucose Random 191 mg/dL (60-115); Potassium 4.3 mmol/L (3.3-5.1); Sodium 141 mmol/L (135-145); Total Protein 6.6 g/dL (6.5-8.0)
[2022-04-16 09:32] LABS: Erythrocyte Sedimentation Rate 29 MM/HR (0-20)
== END 2022-04-16 08:06 | disposition home or self-care (01) ==
LOC: HO.LAB 08:05
PROVIDERS: PCP Internal Medicine; Visit Provider Nurse Practitioner Family
DX: M05.9 Rheumatoid arthritis with rheumatoid factor, unspecified (principal)
CPT/HCPCS: 36415; 80053; 85025; 85652; 86140

== ENCOUNTER 2022-04-18 12:13 | Emergency (ER) | payer OTHER, SELFPAY ==
--- NOTE | ~2022-04-18 | XR_ITS ---
EXAMINATION: XR CHEST CLINICAL INFORMATION: Dyspnea COMPARISON: Chest radiograph 12/19/2021 TECHNIQUE: Frontal view of the chest was obtained. FINDINGS: Clear lungs. No pleural effusion or pneumothorax. Normal cardiomediastinal silhouette. XR/XR chest 1V IMPRESSION: Clear lungs.
[2022-04-18 12:27] VITALS: BP 144/63; PULSE 101; RESP 20; TEMP 36.9; O2SAT 97; BMI 40.4
[2022-04-18 15:12] LABS: Hematocrit 43.3 % (37.0-47.0); Hemoglobin 14.5 g/dl (12.0-16.0); Mean Corpuscular HGB Conc 33.5 g/dl (31.0-35.0); Mean Corpuscular Hemoglobin 31.5 pg (27.0-33.0); Mean Corpuscular Volume 93.9 fL (80.0-98.0); Mean Platelet Volume 11.7 fL (9.4-12.3); Platelet Count 161 X10*3/uL (160-400); Red Blood Count 4.61 X10*6/uL (4.20-5.50); Red Cell Distribution Width 11.8 % (11.0-16.0); White Blood Count 3.9 X10*3/uL (4.8-10.8)
[2022-04-18 15:30] LABS: Anion Gap 11 (12-20); Blood Urea Nitrogen 16 mg/dL (9-16); Calcium 8.9 mg/dL (8.4-10.2); Carbon Dioxide 29 mmol/L (22-29); Chloride 103 mmol/L (96-108); Estimated Glomerular Filt Rate > 60; Glucose Random 154 mg/dL (60-115); Potassium 4.1 mmol/L (3.3-5.1); Sodium 139 mmol/L (135-145)
[2022-04-18 15:35] LABS: B Type Natriuretic Peptide < 10 pg/mL (<100)
[2022-04-18 16:08] LABS: COVID-19 Test Positive (Negative)
--- NOTE | 2022-04-18 16:14 | ED.SOB ---
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 Wanted to get checked out. MD elicited complaint: cough Pertinent past history: asthma Onset (ago): day(s) (7) Context: recent illness (known COVID +) Timing: intermittent Severity: mild Exacerbating factors: coughing Relieving factors: bronchodilators Known history of: asthma Associated symptoms: cough and other (at times feels short of breath, had body aches) Treatment prior to arrival: bronchodilator Related Data Home Medications Medication Instructions Recorded Confirmed rosuvastatin 5 mg tablet (Crestor) 5 mg PO DAILY 07/11/20 04/01/22 bisacodyl 5 mg tablet,delayed 10 mg PO BEDTIME 07/26/20 04/01/22 release (Dulcolax (bisacodyl)) calcium carbonate 200 mg calcium 200 mg PO TID 07/26/20 04/01/22 (500 mg) chewable tablet (Tums) docusate sodium 100 mg capsule 100 mg PO BID 07/26/20 04/01/22 (Colace) dicyclomine 20 mg tablet mg PO 08/01/20 04/01/22 magnesium citrate 150 ml PO BID 08/01/20 04/01/22 fluticasone propionate 220 2 puff inhalation BID 09/11/20 04/01/22 mcg/actuation HFA aerosol inhaler (Flovent HFA) Previous Rx's Medication Instructions Recorded albuterol sulfate 90 mcg/actuation 2 inh PO Q4H PRN shortness of 08/13/20 aerosol inhaler breath or wheezing #8.5 grams lisinopril 20 1 tab PO DAILY 90 days #90 tabs 10/01/20 mg-hydrochlorothiazide 25 mg tablet lancets 28 gauge #100 ea 11/12/20 lancets 28 gauge (FreeStyle #100 ea 04/18/21 Lancets) metformin 1,000 mg tablet 1,000 mg PO BID 90 days #180 tabs 05/01/21 cholecalciferol (vitamin D3) 25 25 mcg PO DAILY 90 days #90 caps 09/02/21 mcg (1,000 unit) capsule lidocaine 4 % topical patch 1 patch topical Q24H PRN pain #10 09/02/21 ea abatacept 125 mg/mL subcutaneous 125 mg subcut QWEEK #4 mL 11/12/21 auto-injector ([employer] ClickJect) albuterol sulfate 2.5 mg/0.5 mL 5 mg inhalation Q6H PRN shortness 12/19/21 solution for nebulization of breath or wheezing #30 ea benzonatate 200 mg capsule 200 mg PO TID PRN cough #14 caps 12/19/21 guaifenesin 1,200 mg tablet, 1,200 mg PO BID 5 days #10 tabs 12/30/21 extended release 12 hr (Mucinex) methocarbamol 750 mg tablet 750 mg PO Q8H 7 days #21 tabs 12/30/21 blood sugar diagnostic (FreeStyle #50 ea 01/13/22 Lite Strips) blood-glucose meter (FreeStyle #1 ea 01/13/22 Lite Meter) linagliptin 5 mg tablet (Tradjenta) 5 mg PO DAILY 90 days #90 tabs 02/20/22 cyclobenzaprine 10 mg tablet 10 mg PO Q8H PRN muscle spasm #14 02/28/22 tabs fluticasone 250 mcg-salmeterol 50 1 inh inhalation BID cough / COPD 04/01/22 mcg/dose blistr powdr for 30 days #60 ea inhalation (Wixela Inhub) guaifenesin 600 mg tablet, 600 mg PO BID COUGH 30 days #60 04/01/22 extended release 12 hr (Mucinex) tabs benzonatate 100 mg capsule 100 mg PO TID PRN cough #20 caps 04/18/22 prednisone 20 mg tablet 20 mg PO DAILY 5 days #5 tabs 04/18/22 Allergies Allergy/AdvReac Type Severity Reaction Status Date / Time Flexeril Allergy Intermediate dizzy Verified 04/01/22 14:58 Norflex Allergy Intermediate dizzy Verified 04/01/22 14:58 sarilumab [From Wood] Allergy Intermediate Rash Verified 04/01/22 14:58 Review of Systems Review of Systems: Constitutional : No Fever, No Chills ENT/Mouth : No Hoarseness, No sore throat, No Rhinorrhea Eyes: No Redness, No Discharge, No Vision Changes Cardiovascular : No Chest Pain, positive SOB, no Dyspnea on Exertion, No edema Respiratory : positive Cough, No Sputum, no Wheezing, Gastrointestinal : No Nausea, No Vomiting, No Diarrhea, No abdominal Pain Genitourinary : No Dysuria, No Hematuria Musculoskeletal : No joint pain, pos Myalgias Skin : No rash Neuro : No Weakness, No Numbness, No Headache Psych : No anxiety, depression Heme/Lymph: No Bruising, No Bleeding Endocrine : No Polyuria, No Polydipsia All other systems reviewed and are negative [facility] Past Medical History Attestation statement: The following information was validated with the patient. Medical History Asthma Asthma Asthma exacerbation Burning with urination Costovertebral angle tenderness Diabetes Disc degeneration, lumbar Dyslipidemia Essential hypertension Hospital discharge follow-up Morbid obesity Pleuritic pain Renal calculi Restrictive lung disease Rheumatoid arthritis Sacroiliitis Sacroiliitis Seropositive rheumatoid arthritis Spondylosis of cervical spine Spondylosis of lumbar spine Vaginal modesta Surgical History History of cholecystectomy History of surgery on wrist Hx of colonoscopy (09/01/19) Family History Family History Father Diabetes mellitus Myocardial infarction Hypertension CVD (cardiovascular disease) Mother Diabetes mellitus CVD (cardiovascular disease) Sister No problems noted. Son No problems noted. Son No problems noted. Son No problems noted. Daughter Thyroiditis Daughter No problems noted. Daughter No problems noted. Daughter No problems noted. Daughter No problems noted. Social History Social History Housing: Apartment Alcohol intake: never Patient Tobacco Use Status: Never used Tobacco e-Cigarette/Vaping Use: Never Used Second Hand Smoke Exposure: No Advance Directives: No Advance Directives Information Provided: No service: No Current occupational status: disabled Sexual orientation: Straight/Heterosexual Gender identity: Female Physical Exam Vital Signs: Vital Signs: Last Vital Signs Temp 98.4 F 04/18/22 12:27 Pulse 82 04/18/22 16:25 Resp 20 04/18/22 12:27 BP 144/63 H 04/18/22 12:27 Pulse Ox 98 04/18/22 16:25 O2 Del Method 04/18/22 16:25 BMI result Body Mass Index 40.4 Appearance: Alert. Oriented X3. No acute distress. Eyes: Pupils equal, round and reactive to light. ENT: Pharynx normal. Neck: Normal inspection. Neck supple. CVS: Normal heart rate and rhythm. Pulses normal. Respiratory: No respiratory distress. Breath sounds normal. Abdomen: Soft and non-tender. Skin: Skin warm and dry. Normal skin color. Normal skin turgor. Extremities: No lower extremity edema. No calf ttp Neuro: Oriented X 3. No motor deficit. No sensory deficit. MDM - SOB/Dyspnea MDM Narrative Medical decision making narrative: 62 yo female with hx of DM, asthma, HLD, vaccinated x 3 for COVID comes in with 7 days of viral illness and tested positive for COVID 2 days ago at home. She has cough that is bothering her and making her chest feel tight when she coughs only I do not suspect ACS. She does not have pleuritic pain no signs of DVT and is not hypoxic doubt PE. She is already on day 7 tomorrow would be day 8. She is out of the window for all treatments per [employer] form. She does not have COVID pneumonia and is not hypoxic and appears very comfortable on exam. Will start on low dose steroids given her RAD and tessalon for cough. Stable for DC. Lab Data Result diagrams: 04/18/22 15:00 04/18/22 15:00 Labs: Lab Results 04/18/22 04/18/22 04/18/22 Range/Units 15:00 15:00 15:00 WBC 3.9 L (4.8-10.8) X10*3/uL RBC 4.61 (4.20-5.50) X10*6/uL Hgb 14.5 (12.0-16.0) g/dl Hct 43.3 (37.0-47.0) % MCV 93.9 (80.0-98.0) fL MCH 31.5 (27.0-33.0) pg MCHC 33.5 (31.0-35.0) g/dl RDW 11.8 (11.0-16.0) % Plt Count 161 (160-400) X10*3/uL MPV 11.7 (9.4-12.3) fL Absolute Nucleated RBC 0.000 (0.0-0.012) X10*3/uL Nucleated RBC % (auto) 0.0 (0.0-0.2) /100WBC Sodium 139 (135-145) mmol/L Potassium 4.1 (3.3-5.1) mmol/L Chloride 103 (96-108) mmol/L Carbon Dioxide 29 (22-29) mmol/L Anion Gap 11 L (12-20) BUN 16 (9-16) mg/dL Creatinine 0.90 (0.5-1.4) mg/dL Estim Creat Clear Calc 69.0 Estimated GFR > 60 Random Glucose 154 H (60-115) mg/dL Calcium 8.9 (8.4-10.2) mg/dL B-Natriuretic Peptide (<100) pg/mL COVID-19 (JENY) Positive A (Negative) COVID-19 Clin Com See Note 04/18/22 Range/Units 15:00 WBC (4.8-10.8) X10*3/uL RBC (4.20-5.50) X10*6/uL Hgb (12.0-16.0) g/dl Hct (37.0-47.0) % MCV (80.0-98.0) fL MCH (27.0-33.0) pg MCHC (31.0-35.0) g/dl RDW (11.0-16.0) % Plt Count (160-400) X10*3/uL MPV (9.4-12.3) fL Absolute Nucleated RBC (0.0-0.012) X10*3/uL Nucleated RBC % (auto) (0.0-0.2) /100WBC Sodium (135-145) mmol/L Potassium (3.3-5.1) mmol/L Chloride (96-108) mmol/L Carbon Dioxide (22-29) mmol/L Anion Gap (12-20) BUN (9-16) mg/dL Creatinine (0.5-1.4) mg/dL Estim Creat Clear Calc Estimated GFR Random Glucose (60-115) mg/dL Calcium (8.4-10.2) mg/dL B-Natriuretic Peptide < 10 (<100) pg/mL COVID-19 (JENY) (Negative) COVID-19 Clin Com ECG Data Attestation: I personally reviewed and interpreted this ECG as follows: ECG interpretation date: 04/18/22 ECG interpretation time: 16:35 Interpretation: Rate: 74 Rhythm: NSR Pioche: left , LVH Normal P waves. Normal SANDY. Normal QRS complex. ST T wave : normal no INGE qTC: normal prior studies: no acute ischemia The study has been interpreted contemporaneously by me. . Discharge Plan Discharge Clinical Impression: COVID-19 Patient Disposition: Home, Self-Care Instructions: COVID-19 (Coronavirus Disease 2019) (ED) Additional Instructions: return to ED for any worsening symptoms or concerns no tienes neumonia covid Si le falta tanto el aire que no puede caminar hasta el ba?o, busque atenci?n m?dica de inmediato. Prescriptions: New benzonatate 100 mg capsule 100 mg PO TID PRN (Reason: cough) Qty: 20 0RF prednisone 20 mg tablet 20 mg PO DAILY 5 Days Qty: 5 0RF No Action albuterol sulfate 90 mcg/actuation HFA aerosol inhaler 2 inh PO Q4H PRN (Reason: shortness of breath or wheezing) Qty: 8.5 1RF lisinopril-hydrochlorothiazide 20-25 mg tablet 1 tab PO DAILY 90 Days Qty: 90 3RF (DME) lancets 28 gauge misc See Rx Instructions topical TID Qty: 100 11RF Rx Instructions: FREESTYLE LITE E11.9 ONCE A DAY (DME) lancets [FreeStyle Lancets] 28 gauge misc See Rx Instructions .ROUTE .MEDSUPPLY Qty: 100 11RF Rx Instructions: Use 1 lancet once a day as needed [employer] Click[employer]ect 125 mg/mL auto-injector 125 mg subcut QWEEK Qty: 4 3RF (DME) FreeStyle Lite Strips Strip See Rx Instructions .ROUTE .MEDSUPPLY Qty: 50 11RF Rx Instructions: Use 1 test strip once a day (DME) blood-glucose meter [FreeStyle Lite Meter] Kit See Rx Instructions .ROUTE .MEDSUPPLY Qty: 1 0RF Rx Instructions: E11.9 ONCE A DAY Tradjenta 5 mg tablet 5 mg PO DAILY 90 Days Qty: 90 1RF albuterol sulfate 2.5 mg/0.5 mL solution for nebulization 5 mg inhalation Q6H PRN (Reason: shortness of breath or wheezing) Qty: 30 0RF benzonatate 200 mg capsule 200 mg PO TID PRN (Reason: cough) Qty: 14 0RF cyclobenzaprine 10 mg tablet 10 mg PO Q8H PRN (Reason: muscle spasm) Qty: 14 0RF rosuvastatin [Crestor] 5 mg tablet 5 mg PO DAILY lidocaine 4 % adhesive patch,medicated 1 patch topical Q24H PRN (Reason: pain) Qty: 10 0RF Rx Instructions: may leave on for up to 12 hrs cholecalciferol (vitamin D3) 25 mcg (1,000 unit) capsule 25 mcg PO DAILY 90 Days Qty: 90 1RF Flovent HFA 220 mcg/actuation HFA aerosol inhaler 2 puff inhalation BID metformin 1,000 mg tablet 1,000 mg PO BID 90 Days Qty: 180 1RF Mucinex 1,200 mg tablet extended release 12hr 1,200 mg PO BID 5 Days Qty: 10 0RF methocarbamol 750 mg tablet 750 mg PO Q8H 7 Days Qty: 21 0RF bisacodyl [Dulcolax (bisacodyl)] 5 mg tablet,delayed release (DR/EC) 10 mg PO BEDTIME docusate sodium [Colace] 100 mg capsule 100 mg PO BID calcium carbonate [Tums] 200 mg calcium (500 mg) tablet,chewable 200 mg PO TID magnesium citrate Solution 150 ml PO BID dicyclomine 20 mg tablet PO fluticasone propion-salmeterol [Wixela Inhub] 250-50 mcg/dose blister with device 1 inh inhalation BID 30 Days Qty: 60 3RF guaifenesin [Mucinex] 600 mg tablet extended release 12hr 600 mg PO BID 30 Days Qty: 60 2RF Print Language: French
[2022-04-18 16:25] VITALS: PULSE 82; O2SAT 98
--- NOTE | 2022-04-18 16:28 | ECG_ITS ---
Test Reason : DYSPNEA Blood Pressure : / mmHG Vent. Rate : 074 BPM Atrial Rate : 074 BPM P-R Int : 186 ms QRS Dur : 090 ms QT Int : 398 ms P-R-T Axes : 022 -05 032 degrees QTc Int : 441 ms Normal sinus rhythm Minimal voltage criteria for LVH, may be normal variant ( [employer] product ) Borderline ECG When compared with ECG of 19-DEC-2021 12:35, No significant change was found Referred By: Sonia Lew Electronically Signed By:Charlie Peters
== END 2022-04-18 17:41 | disposition home or self-care (01) ==
PROVIDERS: Emergency Provider Emergency Medicine; PCP Internal Medicine
DX: U07.1 COVID-19 (principal); R06.02 Shortness of breath; E11.9 Type 2 diabetes mellitus without complications; E78.5 Hyperlipidemia, unspecified; Z79.02 Long term (current) use of antithrombotics/antiplatelets; Z79.899 Other long term (current) drug therapy
CPT/HCPCS: 36415; 71045; 80048; 83880; 85027; 87635; 93005; 99283

== ENCOUNTER 2022-06-08 15:24 | Outpatient (REF) | payer OTHER, SELFPAY ==
--- NOTE | ~2022-06-08 | XR_ITS ---
EXAMINATION: XR BILATERAL HANDS XR BILATERAL FEET CLINICAL INFORMATION: Pain in the joints. COMPARISON: None. TECHNIQUE: 3 views of each foot and 3 views of each hand. FINDINGS: LEFT FOOT: There is loss of MTP joint space in the 2nd through 5th digits and loss of PIP joints as well. No bony erosive or periarticular spurring. There is a small calcaneal heel enthesophyte. The ankle mortise and subtalar joints are normal. The soft tissues are normal. RIGHT FOOT: There is moderate hallux valgus deformity at the 1st MTP joint. Mild subluxation is seen at the MTP joints of 2nd through 5th digits. No bony erosive changes. Mild loss of PIP and DIP joint spaces is seen. The ankle mortise and subtalar joints are normal. There is a small calcaneal heel enthesophyte. RIGHT HAND: There is loss of PIP and DIP joint spaces. No periarticular spurring. The MTP joint space is preserved. There is fusion of some of the carpal bones. There is a negative ulnar variance. No acute fracture is seen. LEFT HAND: There is severe loss of the 2nd MCP joint space and mild loss of PIP and DIP joint spaces. There is mild negative ulnar variance with periarticular spurring of the radioulnar joint. No acute fracture is seen. XR/XR hand RT min 3V IMPRESSION: Degenerative osteoarthritic changes of the PIP and DIP joints in all digits of both hands. There is severe loss of the 2nd MCP joint space in the left hand. There is periarticular spurring of the radioulnar joint with negative ulnar variance in both hands. No acute fracture is seen. There is subluxation of the 2nd through 5th MTP joints and moderate hallux valgus deformity of the 1st MTP joint, suggestive of degenerative arthritis. Involvement of PIP and DIP joint space of the right foot is seen. Mild degenerative changes of the MTP, PIP and DIP joint spaces of the left foot are seen as well. There are bilateral small calcaneal heel enthesophytes.
== END 2022-06-08 15:25 | disposition home or self-care (01) ==
LOC: HO.XRAY 15:24
PROVIDERS: PCP Internal Medicine; Visit Provider Nurse Practitioner Family
DX: M05.9 Rheumatoid arthritis with rheumatoid factor, unspecified (principal); M47.816 Spondylosis without myelopathy or radiculopathy, lumbar region; M79.641 Pain in right hand; M79.642 Pain in left hand; M79.671 Pain in right foot; M79.672 Pain in left foot
CPT/HCPCS: 73130; 73620; 99212

== ENCOUNTER → 2022-06-30 13:06 | Outpatient (BNVA) | payer OTHER, SELFPAY | PROVIDERS: PCP Internal Medicine; Visit Provider Internal Medicine | DX: R91.8 Other nonspecific abnormal finding of lung field (principal); J45.909 Unspecified asthma, uncomplicated; J98.4 Other disorders of lung; E66.01 Morbid (severe) obesity due to excess calories; Z68.41 Body mass index [BMI] 40.0-44.9, adult | CPT/HCPCS: 99212 ==

== ENCOUNTER → 2022-07-01 13:00 | Outpatient (BNVA) | payer OTHER, SELFPAY | PROVIDERS: PCP Internal Medicine; Visit Provider Anesthesiology | DX: M47.816 Spondylosis without myelopathy or radiculopathy, lumbar region (principal); M47.812 Spondylosis without myelopathy or radiculopathy, cervical region; M51.36 Other intervertebral disc degeneration, lumbar region; M46.1 Sacroiliitis, not elsewhere classified | CPT/HCPCS: 99212 ==

== ENCOUNTER 2022-08-11 13:00 | Outpatient (REF) | payer OTHER, SELFPAY ==
--- NOTE | ~2022-08-11 | MR_ITS ---
EXAMINATION: MR LUMBAR SPINE WITHOUT CONTRAST CLINICAL INFORMATION: 62-year-old with self-reported low back pain and right leg numbness. Intervertebral disc degeneration, lumbar region. COMPARISON: 08/14/2021 x-rays. TECHNIQUE: MRI of the lumbar spine was obtained using routine sequences without contrast. FINDINGS: Coronal Alignment: There is partially imaged S-shaped thoracolumbar scoliotic curvature, mildly convex to the left at L4 with slight asnqp-ik-kwkf lateral listhesis at L4-L5 and convex to the right at T12-L1. These findings are more prominent than on the previous x-rays. Some of this may be positional and/or related to muscle spasm. Sagittal Alignment: There is 3 mm of grade 1 degenerative spondylolisthesis at L5-S1, with S1 being a transitional level, unchanged. Otherwise, the lumbar lordotic curvature is maintained. Lumbosacral Junction: Transitional lumbosacral anatomy with lowest lumbar-like segment labeled as S1, which is partially sacralized bilaterally, with a rudimentary S1-S2 intervertebral disc. Vertebral Bodies: Vertebral body heights are well maintained. Disc Spaces and Endplates: Nwugowem-fp-fvnvqc disc space height loss with disc desiccation, Schmorl's nodes and spondylosis at L5-S1. Udko-xy-tqoxrzcd disc space height loss asymmetric to the right at L4-L5 with disc desiccation, tiny Schmorl's nodes and mild spondylosis. Mild disc volume loss asymmetric to the right at L3-L4 with mild disc desiccation and minor spondylosis. There is bulky anterolateral spondylosis deformans asymmetric to the right at T12-L1 and to a lesser degree at L1-L2 with disc desiccation at these levels. Spinal Canal: No abnormal developmental findings. Bone Marrow: No significant marrow-replacing process or bone marrow edema. Conus Medullaris: Terminates at L1-L2. Morphology and signal is normal. Intradural Nerve Roots: Within normal limits. Spine Levels: L5-S1: Diffuse disc bulging is noted with slight unroofing of the posterior disc margin consistent with mild grade 1 degenerative spondylolisthesis. There is bilateral paravertebral/posterolateral disc osteophyte complex. Ligamentum flavum thickening is seen with sqdefyhv-xc-sdsdki bilateral facet arthrosis. There is sktj-oo-qletuhlh central spinal canal stenosis, with moderate bilateral subarticular/lateral recess stenosis, mildly encroaching on the traversing S1 nerve roots bilaterally. Moderate bilateral neural foraminal stenosis is noted with disc osteophyte complex abutting the exiting L5 nerve roots bilaterally. L4-L5: Concentric disc bulging is noted with flattening of the ventral thecal sac, with a superimposed right foraminal/extraforaminal disc herniation. Marked ligamentum flavum thickening is noted with interspinous ligament degeneration and moderate bilateral facet hypertrophic degenerative change. Hiqr-sm-wbvyissm central canal stenosis is noted with mild narrowing of the subarticular recesses. Moderate right-sided neural foraminal stenosis is noted with right lateral disc herniation impinging on the exiting right L4 nerve root. L3-L4: Diffuse disc bulging and flattening of the ventral dural sac is noted with a superimposed left-sided foraminal/extraforaminal disc protrusion. Prominent dorsal epidural fat pad with ligamentum flavum thickening and interspinous ligament degeneration, with wktw-kh-riifauhh facet arthropathy, left more than right. Mild central canal stenosis is noted with mild narrowing of the subarticular zones without definite neural impingement. Mild bilateral neural foraminal stenosis is noted. Left lateral disc herniation abuts the extraforaminal left L3 nerve root. L2-L3: Shallow central disc protrusion with minimal indentation of the ventral thecal sac. Mild bilateral facet arthropathy noted. No significant canal or neural foraminal stenosis. L1-L2: Normal disc contour. Mild facet arthropathy noted. No canal or neural foraminal stenosis. Paraspinal/Retroperitoneal: The visualized paravertebral soft tissues are unremarkable. MR/MR lumbar spine wo con IMPRESSION: 1. S-shaped thoracolumbar scoliotic curvature, as described above, with grade 1 degenerative spondylolisthesis at L5-S1. 2. Multilevel discogenic degenerative changes, most apparent at L5-S1 with S1 being a transitional level. Multilevel spondylosis, disc bulging and disc herniations as detailed by level above, with mild to moderate degrees of spinal canal stenosis at L4-L5 and L5-S1 and mild spinal canal stenosis at L3-L4. 3. Bilateral subarticular recess stenosis at L5-S1 with encroachment on the traversing S1 nerve roots bilaterally, right more than left. 4. Multilevel bilateral facet arthropathy, with multilevel interspinous ligament degeneration. 5. Moderate bilateral neural foraminal stenosis: at L5-S1 with disc osteophyte complex abutting the exiting L5 nerve roots bilaterally. Moderate right-sided neural foraminal stenosis with right lateral disc herniation at L4-L5 impinging on the exiting right L4 nerve root. Left lateral disc herniation at L3-L4 abutting the extra foraminal left L3 nerve root.
== END 2022-08-11 13:01 | disposition home or self-care (01) ==
LOC: HO.MRI 13:00
PROVIDERS: Visit Provider Anesthesiology
DX: M47.816 Spondylosis without myelopathy or radiculopathy, lumbar region (principal); M51.36 Other intervertebral disc degeneration, lumbar region
CPT/HCPCS: 72148

== ENCOUNTER 2022-09-15 14:59 | Outpatient (REF) | payer OTHER, SELFPAY ==
--- NOTE | ~2022-09-15 | XR_ITS ---
EXAMINATION: XR CHEST CLINICAL INFORMATION: Shortness of breath COMPARISON: Previous chest x-ray most recent April 2022 TECHNIQUE: 2 views of the chest were obtained. FINDINGS: The cardiac silhouette is slightly enlarged and appears increased in size. There are increased central lung markings questionable for pulmonary venous redistribution versus airways disease. The lungs are otherwise clear. There is no pleural effusion or pneumothorax. There are degenerative changes of the spine. XR/XR chest 2V IMPRESSION: Slightly enlarged cardiac silhouette and increased central hilar markings. Differential would include mild pulmonary edema and airways disease. Clinical correlation recommended.
== END 2022-09-15 15:00 | disposition home or self-care (01) ==
LOC: HO.XRAY 14:59
PROVIDERS: PCP Internal Medicine; Visit Provider Nurse Practitioner Family
DX: R06.02 Shortness of breath (principal); M05.9 Rheumatoid arthritis with rheumatoid factor, unspecified; J45.901 Unspecified asthma with (acute) exacerbation
CPT/HCPCS: 71046; 99212

== ENCOUNTER 2022-09-28 10:17 | Outpatient (REF) | payer OTHER, SELFPAY ==
[2022-09-28 10:55] LABS: MANUAL DIFF FLAG NO
[2022-09-28 11:02] LABS: Basophils Absolute Auto 0.1 X10*3/uL (0.0-0.2); Basophils Percent Auto 0.8 % (0-2); Eosinophils Absolute Auto 0.4 X10*3/uL (0.0-0.4); Eosinophils Percent Auto 6.3 % (0-4); Hematocrit 41.3 % (37.0-47.0); Hemoglobin 13.7 g/dl (12.0-16.0); Imm Gran Abs Auto 0.03 X10*3/uL (0.00-0.03); Imm Gran Pct Auto 0.5 % (0.0-0.4); Lymphocytes Absolute Auto 1.8 X10*3/uL (1.2-4.9); Lymphocytes Percent Auto 29.8 % (20-40); Mean Corpuscular HGB Conc 33.2 g/dl (31.0-35.0); Mean Corpuscular Hemoglobin 31.1 pg (27.0-33.0); Mean Corpuscular Volume 93.9 fL (80.0-98.0); Mean Platelet Volume 11.7 fL (9.4-12.3); Monocytes Absolute Auto 0.4 X10*3/uL (0.1-1.2); Monocytes Percent Auto 6.3 % (2-11); Neutrophils Absolute Auto 3.5 x10*3/uL (2.0-8.3); Neutrophils Percent Auto 56.3 % (45-73); Platelet Count 177 X10*3/uL (160-400); Red Cell Distribution Width 11.9 % (11.0-16.0); White Blood Count 6.2 X10*3/uL (4.8-10.8)
[2022-09-28 11:26] LABS: Alanine Aminotransferase 27 U/L (0-31); Aspartate Amino Transferase 22 U/L (5-31); C Reactive Protein 1.21 mg/dL (< or = 0.50); Estimated Glomerular Filt Rate > 60
[2022-09-28 11:50] LABS: Erythrocyte Sedimentation Rate 27 MM/HR (0-20)
== END 2022-09-28 10:18 | disposition home or self-care (01) ==
LOC: HO.10HDL 10:17
PROVIDERS: Visit Provider Nurse Practitioner Family
DX: M05.9 Rheumatoid arthritis with rheumatoid factor, unspecified (principal); Z79.899 Other long term (current) drug therapy
CPT/HCPCS: 36415; 82565; 84450; 84460; 85025; 85652; 86140

== ENCOUNTER 2022-10-22 10:10 | Day surgery (SDC) | payer OTHER, SELFPAY ==
[2022-10-19 13:10] VITALS: BMI 41.1
--- NOTE | 2022-10-21 09:38 | HO.ANESPROP2 ---
Documented by User: Aiyana Decker NP 10/21/22 09:41 HPI - Anesthesia Eval Consult details Narrative: 62yo F for Right Diagnostic L2-L3-L4-DR L5 Medial Branch Block PMFSH Active Problems Active Problems: All Active Problems (Updated 10/19/22 @ 13:04 by Tracy Spangler RN) Pelvic pain (Acute) Vaginal discharge (Acute) LFT elevation (Acute) Chronic idiopathic constipation (Acute) Lower abdominal pain (Acute) Bacterial vaginosis (Acute) Well woman exam (Acute) Lumbar spondylosis (Acute) Postmenopausal bleeding (Acute) Cough (Acute) Pulmonary nodules (Acute) COVID-19 (Acute) Normal physical exam, routine (Acute) Spondylosis of lumbar region without myelopathy or radiculopathy (Acute) Asthma exacerbation (Acute) Hospital discharge follow-up (Acute) Sacroiliitis (Acute) Renal calculi (Acute) Costovertebral angle tenderness (Acute) Burning with urination (Acute) Sacroiliitis (Acute) Disc degeneration, lumbar (Acute) Spondylosis of cervical spine (Acute) Spondylosis of lumbar spine (Acute) Pleuritic pain (Acute) Restrictive lung disease (Acute) Morbid obesity (Acute) Asthma (Acute) Dyslipidemia (Acute) Essential hypertension (Acute) Diabetes (Acute) Vaginal modesta (Acute) Seropositive rheumatoid arthritis (Acute) Past Medical History Medical History (Updated 10/19/22 @ 13:04 by Tracy Spangler RN) Asthma Asthma exacerbation Burning with urination Costovertebral angle tenderness Diabetes Disc degeneration, lumbar Dyslipidemia Essential hypertension History of COVID-19 Hospital discharge follow-up Morbid obesity Pleuritic pain Renal calculi Restrictive lung disease Rheumatoid arthritis Sacroiliitis Seropositive rheumatoid arthritis Spondylosis of cervical spine Spondylosis of lumbar spine Vaginal modesta Family History Family History Father Diabetes mellitus Myocardial infarction Hypertension CVD (cardiovascular disease) Mother Diabetes mellitus CVD (cardiovascular disease) Sister No problems noted. Son No problems noted. Son No problems noted. Son No problems noted. Daughter Thyroiditis Daughter No problems noted. Daughter No problems noted. Daughter No problems noted. Daughter No problems noted. Surgical History Surgical History (Updated 10/19/22 @ 13:04 by Tracy Spangler RN) History of cholecystectomy History of surgery on wrist Hx of colonoscopy (11/22/19) Social History Social History Housing: Apartment Alcohol intake: never Patient Tobacco Use Status: Never used Tobacco e-Cigarette/Vaping Use: Never Used Second Hand Smoke Exposure: No Use of substances other than those prescribed or required for medical reasons: No Are you DNR?: No Advance Directives: No Advance Directives Information Provided: Yes service: No Current occupational status: disabled Sexual orientation: Straight/Heterosexual Gender identity: Female Meds Allergies Allergy/AdvReac Type Severity Reaction Status Date / Time Flexeril Allergy Intermediate dizzy Verified 10/16/22 13:57 Norflex Allergy Intermediate dizzy Verified 10/16/22 13:57 sarilumab [From Wood] Allergy Intermediate Rash Verified 10/16/22 13:57 Home Medications Medication Instructions Recorded Confirmed Last Taken Type ibuprofen 200 mg capsule 400 mg PO Q8H 06/09/22 10/19/22 Unknown History diazepam 5 mg tablet 5 mg PO Q8H PRN muscle spasm 09/15/22 10/19/22 Unknown History Exam Exam Date and Time: October 21, 2022 0938 Height,Weight and Vital Signs: Height 5 ft 1 in Weight 98.883 kg Pertinent Lab Results Pertinent Lab Results: Laboratory Tests 04/18/22 09/28/22 09/28/22 15:00 10:20 10:20 WBC 6.2 Hgb 13.7 Hct 41.3 Plt Count 177 Sodium 139 Potassium 4.1 Chloride 103 Carbon Dioxide 29 BUN 16 Creatinine 0.73 Narrative Narrative: EKG 04/2022 Vent. Rate : 074 BPM ? ? Atrial Rate : 074 BPM ?? P-R Int : 186 ms? QRS Dur : 090 ms ? ? QT Int : 398 ms ? ? ? P-R-T Axes : 022 -05 032 degrees ?? QTc Int : 441 ms ? Normal sinus rhythm Minimal voltage criteria for LVH, may be normal variant ( [place] product ) Borderline ECG When compared with ECG of 19-DEC-2021 12:35, No significant change was found Assessment and Plan Assessment Anesthesia Assessment: Chart Reviewed Documented by User: Elie Choudhury MD 10/22/22 10:50 PMF Past Medical History Medical History (Updated 10/19/22 @ 13:04 by Tracy Spangler RN) Asthma Asthma exacerbation Burning with urination Costovertebral angle tenderness Diabetes Disc degeneration, lumbar Dyslipidemia Essential hypertension History of COVID-19 Hospital discharge follow-up Morbid obesity Pleuritic pain Renal calculi Restrictive lung disease Rheumatoid arthritis Sacroiliitis Seropositive rheumatoid arthritis Spondylosis of cervical spine Spondylosis of lumbar spine Vaginal modesta Family History Family History Father Diabetes mellitus Myocardial infarction Hypertension CVD (cardiovascular disease) Mother Diabetes mellitus CVD (cardiovascular disease) Sister No problems noted. Son No problems noted. Son No problems noted. Son No problems noted. Daughter Thyroiditis Daughter No problems noted. Daughter No problems noted. Daughter No problems noted. Daughter No problems noted. Family history of problems with anesthesia: No Surgical History Surgical History (Updated 10/19/22 @ 13:04 by Tracy Spangler RN) History of cholecystectomy History of surgery on wrist Hx of colonoscopy (09/01/19) History of Problems with Anesthesia: No Social History Social History Housing: Apartment Alcohol intake: never Patient Tobacco Use Status: Never used Tobacco e-Cigarette/Vaping Use: Never Used Second Hand Smoke Exposure: No Use of substances other than those prescribed or required for medical reasons: No Are you DNR?: No Advance Directives: No Advance Directives Information Provided: Yes service: No Current occupational status: disabled Sexual orientation: Straight/Heterosexual Gender identity: Female Meds Allergies Allergy/AdvReac Type Severity Reaction Status Date / Time Flexeril Allergy Intermediate dizzy Verified 10/16/22 13:57 Norflex Allergy Intermediate dizzy Verified 10/16/22 13:57 sarilumab [From Kevzara] Allergy Intermediate Rash Verified 10/16/22 13:57 Home Medications Medication Instructions Recorded Confirmed Last Taken Type ibuprofen 200 mg capsule 400 mg PO Q8H 06/09/22 10/19/22 Unknown History diazepam 5 mg tablet 5 mg PO Q8H PRN muscle spasm 09/15/22 10/19/22 Unknown History Exam Airway Mallampati Class: III TM Dist: >3cm Neck ROM: Full Denture: Upper and Lower Assessment and Plan Assessment Anesthesia Assessment: Anesthesia Plan Discussed Final Anesthetic Review Family History of Problems with Anesthesia: No History of Problems with Anesthesia: No NPO: Yes ASA Class: III Final Preanesthetic Review: No Changes in Pt Med Stat, Meds/Allgs Chart Reviewed, Consent Obtained/Reviewed and Anes Risks/Benef Reviewed Patient Risk: Low Procedure Risk: Low Anesthetic Plan Anesthetic Plan: MAC: Disposition: Standard PACU
--- NOTE | ~2022-10-22 | FL_ITS ---
EXAMINATION: XR FLUOROSCOPY WITH IMAGES CLINICAL INFORMATION: Low back pain in right leg numbness. Diagnostic pain management procedures. COMPARISON: MR lumbar spine 08/11/2022, radiographs lumbar spine 08/14/2021. TECHNIQUE: Fluoroscopy Supervised By: Dr. Chip Richardson. Fluoroscopy Time: 0.6 minutes. Cumulative Dose: 16.0 mGy. DAP: 4.38 Gycm2. Images: 5. FINDINGS: There are spinal needles overlying the outer right L3, L4, L5, and S1 neural foramen. There is contrast seen in the respective nerve sheaths. Some early transforaminal epidural extension is suggested. No visible vascular communication. FL/FL guidance in OR IMPRESSION: Fluoroscopy for pain management procedures.
[2022-10-22 10:44] VITALS: BMI 41.1
[2022-10-22 10:58] VITALS: BP 169/73; PULSE 70; RESP 18; TEMP 36.4; O2SAT 96; BMI 41.1
[2022-10-22 11:08] LABS: Glucose, Whole Blood 162 mg/dL (60-115)
[2022-10-22] MEDS: Lactated Ringers 1,000 ML 100 ML IVCONT (11:19)
--- NOTE | 2022-10-22 11:29 | MHC.SHP ---
Pre-Procedural Eval Section A Date of Service: 10/22/22 The patient is an INPATIENT: No Changes since office visit: Yes Patient answered all questions The History & Physical has been completed within 30 days and I have reviewed it.: No Section B Chief Complaint: Spondylosis without myelopathy or radiculopathy, Details of Present Illness: as abvove Relevant Family History (Specify if Yes): No Relevant Social History: None Present Medications: see Short Stay Collaborative assessment Medical History: No relevant PMH History of Previous Operations: No relevant previous surgery Allergies: Allergies Allergy/AdvReac Type Severity Reaction Status Date / Time Flexeril Allergy Intermediate dizzy Verified 10/16/22 13:57 Norflex Allergy Intermediate dizzy Verified 10/16/22 13:57 sarilumab [From Kevzara] Allergy Intermediate Rash Verified 10/16/22 13:57 Review of Systems Sugical H&P ROS: Negative: Cardiovascular, Respiratory, Neurological, Psychiatric, Hem-Onc, Allergic/Immunologic, Gastrointestinal, Musculoskeletal, Integumentary, Endocrine and Eyes/Ears/Nose/Throat and Yes, Specify: Constitution (obesity) and Genitourinary (spondylosis) Exam Surgical H&P Exam: Normal: HEENT, Normal: Heart, Normal: Lungs, Normal: Extremities, Normal: Skin and Normal: Neurological and Significant Findings: Abdomen (enlarged) Plan Diagnosis/Plan: Unchanged I have reviewed the history and physical and performed a pertinent physical examination on my patient. No changes have occurred unless specified. Time Spent With Patient Time: Total time managing care of this patient today ____5 minutes.
--- NOTE | 2022-10-22 12:07 | P.BOP_ITS ---
Brief Operative Note Date of Service: 10/22/22 Pre-op diagnosis: spondylosis lumbar without myelopathy or radiculopathy Post-op diagnosis: same Procedure: Right sided MBB L2- L3- L4- DRL5 diagnostic with ropivacaine Surgeon: Chip Richardson MD Was an Brim And Crown Presser used for this Procedure?: No Estimated blood loss (mL): 0 Condition: stable Disposition: PACU
--- NOTE | 2022-10-22 12:09 | P.OP_ITS ---
Operative Note Operative Note Date of Service: 10/22/22 Narrative: Lumbar MBB diagnostic L2- L3- L4- L5 on the right. Informed consent was explained to the patient. All questions were explained and? answered.? The patient was taken inside the operating room where she was pos itioned prone on the operating table.?ASA m-rs were applied and the patient wad sedated. Fentanyl, ketamine were avoided during sedation. Time-out was performed delineating correct site, side, the nature of the procedure, patient's allergy, preoperative antibiotic if needed.? All operating room staff was participating in OR time-out procedure. ? The lower back was prepped with ChloraPrep and draped with sterile towels.? Sterilely draped C-arm was brought over the operating field and sq picture of the L3, L4, L5 vertebra and S1 AREA were delineated on the screen.? Point of interest were delineated as connection of superior articular process of L3, L4 and L5 vertebra on the right with corresponding transverse processes as well as connection of the sacral alae on the right with superior articular process of S1.? The projection of the point of interest to the skin were injected with the small amount of local anesthetic lidocaine 2% 1-1.5 cc.? After that 22 gauge 5 inch spinal needle was driven sequentially to the points of interest in tunnel vision fashion. After needles gently contacted the bone at the point of interests the needle was injected with small amount of the contrast.? The injection of the contrast did not demonstrate any intravascular or intrathecal spread of the contrast.? After that injection of the? ropivacaine 0.5%-1cc was performed at each needle location.? Upon completion of the injections? needle was? removed and sterile Band-Aids were applied.? The? patient was awaken and taken outside of the operating room to recovery room where she recovered uneventfully.?
[2022-10-22 12:11] VITALS: BP 134/83; PULSE 77; RESP 15; TEMP 36.7; O2SAT 99
[2022-10-22 12:26] VITALS: BP 144/83; PULSE 67; RESP 17; O2SAT 98
[2022-10-22 12:41] VITALS: BP 134/62; PULSE 60; RESP 18; TEMP 36.2; O2SAT 97
== END 2022-10-22 13:59 ==
LOC: HO.SSS 10:10
PROVIDERS: PCP Internal Medicine; Visit Provider Anesthesiology
PROC: (CPT 64493; principal; 2022-10-22 11:30)
DX: M47.816 Spondylosis without myelopathy or radiculopathy, lumbar region (principal); M51.36 Other intervertebral disc degeneration, lumbar region; M47.812 Spondylosis without myelopathy or radiculopathy, cervical region; M46.1 Sacroiliitis, not elsewhere classified; M25.561 Pain in right knee; M79.651 Pain in right thigh; M05.9 Rheumatoid arthritis with rheumatoid factor, unspecified; I10 Essential (primary) hypertension; E11.9 Type 2 diabetes mellitus without complications; E66.01 Morbid (severe) obesity due to excess calories; J45.909 Unspecified asthma, uncomplicated; J98.4 Other disorders of lung; Z79.51 Long term (current) use of inhaled steroids; Z79.84 Long term (current) use of oral hypoglycemic drugs; Z79.899 Other long term (current) drug therapy; Z88.8 Allergy status to other drugs, medicaments and biological substances
CPT/HCPCS: 64493; 64494; 82947; J2250; J2405; J2795; Q9965; Q9967

== ENCOUNTER → 2022-10-28 08:30 | Outpatient (BNVA) | payer OTHER, SELFPAY | PROVIDERS: PCP Internal Medicine; Visit Provider Anesthesiology | DX: Z13.89 Encounter for screening for other disorder (principal) ==

== ENCOUNTER → 2022-10-29 13:35 | Outpatient (BNVA) | payer OTHER, SELFPAY | PROVIDERS: PCP Internal Medicine; Visit Provider Internal Medicine | DX: R91.8 Other nonspecific abnormal finding of lung field (principal); J45.909 Unspecified asthma, uncomplicated; J98.4 Other disorders of lung; E66.01 Morbid (severe) obesity due to excess calories | CPT/HCPCS: 99212 ==

== ENCOUNTER 2022-11-12 15:20 | Outpatient (REF) | payer OTHER, SELFPAY ==
--- NOTE | ~2022-11-12 | CT_ITS ---
EXAMINATION: CT CHEST WITHOUT CONTRAST CLINICAL INFORMATION: Nonspecific abnormal finding of lung field. COMPARISON: Chest radiographs dated 09/15/2022; CTA chest dated 12/19/2021. TECHNIQUE: Multidetector volumetric CT imaging of the chest was done. Axial MIP volume rendering provided. Sagittal and coronal reformatted images were obtained. This CT examination was performed using dose optimization techniques as appropriate, variously including the following: *Automated exposure control *Adjustment of mA and/or kV according to patient size (this includes techniques or standardized protocols for targeted exams where dose is matched to indication/reason for exam; i.e. extremities or head) *Use of iterative reconstruction technique DLP: 171 mGy-cm FINDINGS: GREASE PACKER: The lungs are symmetrically well-expanded and grossly clear. There is mild elevation of the right hemidiaphragm. LUNGS: Abutting the accessory fissure (5:229), a 6 mm benign, pleural-based lymph node is seen. There is an adjacent small benign, calcified right middle lobe granuloma (5:228). Abutting the lower left major fissure (5:276), a 6 mm benign, pleural-based lymph node is seen. There is bibasilar dependent hypoaeration. No mass lesion is seen. At the left base, there are a few small scattered groundglass infiltrates (5:342-364). There is mild bibasilar paraseptal emphysematous change. There is mild generalized small airway thickening. The central airways appear patent. MEDIASTINUM: The thyroid is unremarkable. No sizable mediastinal or hilar lymphadenopathy is seen. There is no thoracic aortic aneurysm. There is minimal atherosclerotic calcifications of the thoracic aorta. CORONARY ARTERY CALCIFICATION: None visualized on this study. PLEURA: There is no pleural effusion. No pleural mass or thickening. AXILLA: No lymphadenopathy. UPPER ABDOMEN: There is hepatic steatosis. The adrenal glands are unremarkable. OSSEOUS STRUCTURES: There is thoracolumbar spondylosis, most pronounced at and T11-T12 and T12-L1, where it is marked. CT/CT chest wo IV con IMPRESSION: 1. There is mild generalized small airway thickening, likely inflammatory or infectious in etiology. 2. There are small scattered nonspecific groundglass infiltrates seen at the left base. Recommend clinical correlation and short-term follow-up CT imaging in 1-3 months to ensure regression/resolution. 3. There is mild bibasilar paraseptal emphysematous change. 4. There are benign, stable pulmonary nodules and pleural-based lymph nodes. No new nodule or mass lesion is seen. 5. There is mild paraseptal emphysema. 6. There is no thoracic lymphadenopathy or pleural effusion. 7. There is hepatic steatosis. 8. There is thoracolumbar spondylosis. Fleischner guidelines were followed.
== END 2022-11-12 15:21 | disposition home or self-care (01) ==
LOC: HO.CT 15:20
PROVIDERS: PCP Internal Medicine; Visit Provider Internal Medicine
DX: R91.8 Other nonspecific abnormal finding of lung field (principal); R05.9 Cough, unspecified
CPT/HCPCS: 71250

== ENCOUNTER 2022-11-19 12:38 | Day surgery (SDC) | payer OTHER, SELFPAY ==
--- NOTE | ~2022-11-19 | FL_ITS ---
EXAMINATION: XR FLUOROSCOPY WITH IMAGES CLINICAL INFORMATION: Low back pain. Lumbar SPRINT, medial branch L1 and L4. COMPARISON: Fluoroscopic spot views 10/22/2022, MR lumbar spine 08/11/2022 TECHNIQUE: Fluoroscopy Supervised By: Dr. Chip Richardson. Fluoroscopy Time: 0.2 minutes. Cumulative Dose: 14.9 mGy. DAP: 3.92 Gycm2. Images: 2. FINDINGS: There is fine electrodes overlying the right L1 and L4 levels. No kinking or defect of the visualized leads. FL/FL guidance in OR IMPRESSION: Fluoroscopy for pain management procedures.
[2022-11-19 13:00] VITALS: BP 167/91
[2022-11-19 13:07] VITALS: BMI 41.1
[2022-11-19 13:15] LABS: Glucose, Whole Blood 136 mg/dL (60-115)
[2022-11-19 13:32] VITALS: BP 163/78; PULSE 68; RESP 18; TEMP 36.6; O2SAT 100
[2022-11-19] MEDS: Lactated Ringers 1,000 ML 50 ML IVCONT (13:34)
--- NOTE | 2022-11-19 14:07 | MHC.SHP ---
Pre-Procedural Eval Section A Date of Service: 11/19/22 The patient is an INPATIENT: No Changes since office visit: Yes Patient answered all questions The History & Physical has been completed within 30 days and I have reviewed it.: No Section B Chief Complaint: Spondylosis without myelopathy or radiculopathy, l Details of Present Illness: as above Relevant Family History (Specify if Yes): No Relevant Social History: None Present Medications: see Short Stay Collaborative assessment Medical History: No relevant PMH History of Previous Operations: No relevant previous surgery Allergies: Allergies Allergy/AdvReac Type Severity Reaction Status Date / Time cyclobenzaprine Allergy Intermediate Dizziness Verified 11/16/22 15:12 [From Flexeril] orphenadrine [From Norflex] Allergy Intermediate Dizziness Verified 11/16/22 15:12 sarilumab [From Kevzara] Allergy Intermediate Rash Verified 11/16/22 15:12 Review of Systems Sugical H&P ROS: Negative: Constitution, Cardiovascular, Respiratory, Neurological, Psychiatric, Hem-Onc, Allergic/Immunologic, Gastrointestinal, Genitourinary, Musculoskeletal, Integumentary, Endocrine and Eyes/Ears/Nose/Throat Exam Surgical H&P Exam: Normal: HEENT, Normal: Heart, Normal: Lungs, Normal: Extremities, Normal: Abdomen, Normal: Skin and Normal: Neurological Plan Diagnosis/Plan: Unchanged I have reviewed the history and physical and performed a pertinent physical examination on my patient. No changes have occurred unless specified. Time Spent With Patient Time: Total time managing care of this patient today ____ minutes.
--- NOTE | 2022-11-19 14:11 | HO.ANESPROP2 ---
HPI - Anesthesia Eval Consult details Narrative: 62 F pf PNS trial under MAC PMFSH Active Problems Active Problems: All Active Problems (Updated 11/16/22 @ 13:24 by LUCERO Vanessa) Right-sided back pain (Acute) Pelvic pain (Acute) Vaginal discharge (Acute) LFT elevation (Acute) Chronic idiopathic constipation (Acute) Lower abdominal pain (Acute) Bacterial vaginosis (Acute) Well woman exam (Acute) Lumbar spondylosis (Acute) Postmenopausal bleeding (Acute) Cough (Acute) Pulmonary nodules (Acute) COVID-19 (Acute) Normal physical exam, routine (Acute) Spondylosis of lumbar region without myelopathy or radiculopathy (Acute) Asthma exacerbation (Acute) Hospital discharge follow-up (Acute) Sacroiliitis (Acute) Renal calculi (Acute) Costovertebral angle tenderness (Acute) Burning with urination (Acute) Sacroiliitis (Acute) Disc degeneration, lumbar (Acute) Spondylosis of cervical spine (Acute) Spondylosis of lumbar spine (Acute) Pleuritic pain (Acute) Restrictive lung disease (Acute) Morbid obesity (Acute) Asthma (Acute) Dyslipidemia (Acute) Essential hypertension (Acute) Diabetes (Acute) Vaginal [place] (Acute) Seropositive rheumatoid arthritis (Acute) Past Medical History Medical History (Updated 11/16/22 @ 13:24 by LUCERO Vanessa) Asthma Asthma exacerbation Burning with urination Costovertebral angle tenderness Diabetes Disc degeneration, lumbar Dyslipidemia Essential hypertension History of COVID-19 Hospital discharge follow-up Morbid obesity Pleuritic pain Renal calculi Restrictive lung disease Rheumatoid arthritis Right-sided back pain Sacroiliitis Seropositive rheumatoid arthritis Spondylosis of cervical spine Spondylosis of lumbar spine Vaginal [place] Family History Family History Father Diabetes mellitus Myocardial infarction Hypertension CVD (cardiovascular disease) Mother Diabetes mellitus CVD (cardiovascular disease) Sister No problems noted. Son No problems noted. Son No problems noted. Son No problems noted. Daughter Thyroiditis Daughter No problems noted. Daughter No problems noted. Daughter No problems noted. Daughter No problems noted. Family history of problems with anesthesia: No Surgical History Surgical History History of cholecystectomy History of surgery on wrist Hx of colonoscopy (09/01/19) History of Problems with Anesthesia: No Social History Social History Housing: Apartment Alcohol intake: never Patient Tobacco Use Status: Never used Tobacco e-Cigarette/Vaping Use: Never Used Second Hand Smoke Exposure: No Are you DNR?: No Advance Directives: No Advance Directives Information Provided: Yes Nutrition Risks: No Nutritional Risk service: No Current occupational status: disabled Sexual orientation: Straight/Heterosexual Gender identity: Female Cognitive needs: No Hearing needs: No Vision needs: No Meds Allergies Allergy/AdvReac Type Severity Reaction Status Date / Time cyclobenzaprine Allergy Intermediate Dizziness Verified 11/16/22 15:12 [From Flexeril] orphenadrine [From Norflex] Allergy Intermediate Dizziness Verified 11/16/22 15:12 sarilumab [From Kevzara] Allergy Intermediate Rash Verified 11/16/22 15:12 Active Medications: Current Medications Lactated Ringer's (Lr) 1,000 mls @ 50 mls/hr IVCONT .Q20H JARRET Last Admin: 11/19/22 13:34 Dose: 50 mls/hr Home Medications Medication Instructions Recorded Confirmed Last Taken Type ibuprofen 200 mg capsule 400 mg PO Q8H 06/09/22 11/16/22 Unknown History Exam Exam Date and Time: November 19, 2022 1411 Height,Weight and Vital Signs: Height 5 ft 1 in Weight 218 lb Last Vital Signs Temp 97.9 F 11/19/22 13:32 Pulse 68 11/19/22 13:32 Resp 18 11/19/22 13:32 BP 163/78 H 11/19/22 13:32 Pulse Ox 100 11/19/22 13:32 O2 Del Method 11/19/22 13:32 Pertinent Lab Results Pertinent Lab Results: Laboratory Tests 11/19/22 12:57 POC Glucose 136 H Airway Mallampati Class: II TM Dist: >3cm Neck ROM: Full Partial: Upper Loose/Missing/Broken Teeth: Yes Assessment and Plan Assessment Anesthesia Assessment: Anesthesia Plan Discussed and Chart Reviewed Final Anesthetic Review Family History of Problems with Anesthesia: No History of Problems with Anesthesia: No NPO: Yes ASA Class: III Final Preanesthetic Review: No Changes in Pt Med Stat, Meds/Allgs Chart Reviewed, Consent Obtained/Reviewed and Anes Risks/Benef Reviewed Patient Risk: Intermediate Procedure Risk: Low Anesthetic Plan Anesthetic Plan: MAC: Disposition: Standard PACU
--- NOTE | 2022-11-19 14:57 | P.BOP_ITS ---
Brief Operative Note Date of Service: 11/19/22 Pre-op diagnosis: spondylosis lumbar without myelopathy or radiculopathy Post-op diagnosis: same Procedure: SPRINT PNS unilateral right L1 and L4 . Implants: none permanent Surgeon: Chip Richardson MD Anesthesia: MAC and local Was an Kraft Digester Operator used for this Procedure?: No Estimated blood loss (mL): 0 Condition: stable Disposition: PACU
--- NOTE | 2022-11-19 15:01 | W.PM.OPN ---
Operative Note Operative Note Date of Service: 11/19/22 Narrative: Percutaneous implantation of peripheral nerve stimulation Sprint system. After the risks, benefits and alternatives were discussed with the patient and informed consent was obtained, patient was placed in the prone position and padded to foster comfort. Time out was performed delineating correct site and side of the procedure , name and of the patient, patient participated in time out procedure. Sterily draped C-arm was brought over the operating field and clear picture of the L5 lamina on the right was delineated on the screen. The upper central portion of the lamina was chosen as a target of the needle tip insertion . After identifying and marking the intended target, the skin around the planned entry point and the subcutaneous tissues were injected with local anesthetic forming skin wheal.. A percutaneous sleeve and stimulating probe lead introduction system were assembled inserted and advanced through the skin wheal to the point of interest of L4 vertebra approximately 1/3 of the width of the right lamina caudad and approximately 2 in lateral from spinous process on AP view. Here nerve target acquisition was confirmed noting generation of in the corresponding to the nerve being stimulated. Various electrical parameter combinations were tested, and the lead location was adjusted (physically relocated) until the patient indicated overlapping the distribution of the patient?s typical region of pain. The stimulating probe was removed from the introducer and a percutaneous lead was guided through the needle and delivered to a location in similar proximity to the nerve. Final location was verified with electrical stimulation. The introducer needle was removed, and the exposed end of the percutaneous lead was attached to an external stimulator unit. After that the procedure was repeated in the same very fashion at the L1 level on the right At the end of the case various electrical parameter combinations were again tested until the patient indicated paresthesia or muscle tension overlapping the distribution of the patient?s typical region of pain. After confirming that lead impedance was in the normal range, the external unit was detached, the needle was removed, and the lead was anchored at the skin. The lead was threaded into the connector block and electrical continuity and desired patient response was confirmed. The connector block was attached to the external stimulator unit. The site was covered with a sterile occlusive dressing and a image was taken to document final placement. Upon completion of the procedure the patient was taken outside the OR where she recovered uneventfully she went home without immediate complications.
[2022-11-19 15:13] VITALS: BP 137/79; PULSE 66; RESP 18; TEMP 36.4; O2SAT 97
[2022-11-19 15:28] VITALS: BP 143/76; PULSE 65; RESP 20; TEMP 36.6; O2SAT 99
[2022-11-19] MEDS: Acetaminophen 325 MG TABLET 975 MG PO (15:41)
[2022-11-19 15:43] VITALS: BP 142/77; PULSE 73; RESP 20; TEMP 36.6; O2SAT 97
== END 2022-11-19 15:57 | disposition home or self-care (01) ==
PROVIDERS: PCP Internal Medicine; Visit Provider Anesthesiology
PROC: (CPT 64555; principal; 2022-11-19 14:00)
DX: M47.816 Spondylosis without myelopathy or radiculopathy, lumbar region (principal); M51.36 Other intervertebral disc degeneration, lumbar region; M46.1 Sacroiliitis, not elsewhere classified; M47.812 Spondylosis without myelopathy or radiculopathy, cervical region; M05.9 Rheumatoid arthritis with rheumatoid factor, unspecified; J45.909 Unspecified asthma, uncomplicated; I10 Essential (primary) hypertension; E11.9 Type 2 diabetes mellitus without complications; E66.01 Morbid (severe) obesity due to excess calories; Z79.1 Long term (current) use of non-steroidal anti-inflammatories (NSAID); Z88.8 Allergy status to other drugs, medicaments and biological substances; Z86.16 Personal history of COVID-19
CPT/HCPCS: 64555 ×2; 82947; C1778; J2250; J2795; J3010

== ENCOUNTER → 2022-11-23 13:04 | Outpatient (BNVA) | payer OTHER, SELFPAY | PROVIDERS: PCP Internal Medicine; Visit Provider Anesthesiology | DX: Z97.8 Presence of other specified devices (principal) | CPT/HCPCS: 99211 ==

== ENCOUNTER → 2022-12-02 12:51 | Outpatient (BNVA) | payer OTHER, SELFPAY | PROVIDERS: PCP Internal Medicine; Visit Provider Anesthesiology | DX: Z45.42 Encounter for adjustment and management of neurostimulator (principal); Z96.82 Presence of neurostimulator | CPT/HCPCS: 99211 ==

== ENCOUNTER → 2022-12-07 11:52 | Outpatient (BNVA) | payer OTHER, SELFPAY | PROVIDERS: PCP Internal Medicine; Visit Provider Nurse Practitioner Family | DX: M05.9 Rheumatoid arthritis with rheumatoid factor, unspecified (principal); R10.9 Unspecified abdominal pain | CPT/HCPCS: 99212 ==

== ENCOUNTER 2022-12-07 12:57 | Emergency (ER) | payer OTHER, SELFPAY ==
--- NOTE | ~2022-12-07 | CT_ITS ---
EXAMINATION: CT ABDOMEN AND PELVIS WITHOUT CONTRAST CLINICAL INFORMATION: Right-sided abdominal pain. COMPARISON: CT abdomen/pelvis 06/07/2020. TECHNIQUE: Multidetector volumetric imaging was performed from the superior aspect of the liver through the pubic symphysis. Sagittal and coronal reformatted images were obtained on the technologist's workstation. This CT examination was performed using dose optimization techniques as appropriate, variously including the following: *Automated exposure control *Adjustment of mA and/or kV according to patient size (this includes techniques or standardized protocols for targeted exams where dose is matched to indication/reason for exam; i.e. extremities or head) *Use of iterative reconstruction technique DLP: 848 mGy-cm FINDINGS: LUNG BASES: Again noted 6 mm triangularly shaped perifissural lymph node in the left lower lobe (3:32), unchanged. Redemonstration of mild bronchial wall thickening. No focal consolidation or pleural effusion. Bibasilar subsegmental atelectasis versus scarring noted. LIVER, GALLBLADDER, AND BILIARY TREE: The liver is enlarged measuring 18.5 cm craniocaudally, and demonstrates decreased parenchymal attenuation most suggestive of hepatic steatosis. There is questionable mild nodularity of the contour which could be seen with cirrhosis. No discrete focal liver lesions are noted in this limited noncontrast examination. The gallbladder is nonvisualized, presumably surgically removed. No inflammatory changes in the gallbladder fossa to suspect acute cholecystitis. No biliary ductal dilatation. PANCREAS: Limited noncontrast examination, unremarkable. SPLEEN: Limited noncontrast examination, unremarkable. ADRENAL GLANDS: No adrenal nodule. KIDNEYS AND URETERS: Limited noncontrast examination. No nephrolithiasis or hydronephrosis. No perinephric fat stranding. BLADDER: Underdistended limiting assessment wall thickening. No focal abnormality. No intraluminal calculi. No perivesical fat stranding. GASTROINTESTINAL TRACT: No evidence of bowel obstruction. Normal appendix. No significant colonic wall thickening or pericolonic inflammatory changes to suspect acute colitis or diverticulitis. Moderate degree of colonic and rectal stool burden. ABDOMINAL WALL: Small fat-containing umbilical hernia. LYMPH NODES: No pathologically enlarged lymph nodes. VASCULAR: Limited noncontrast examination. The abdominal aorta is of normal diameter. PELVIC VISCERA: No discrete pelvic mass. OSSEOUS STRUCTURES: No acute or aggressive appearing osseous abnormalities. Degenerative changes of the spine. Again noted increased sclerosis with subchondral cystic changes in the pubic symphysis, suggesting osteitis pubis or degenerative changes, slightly increased since 2019. CT/CT abdomen pelvis wo IV con IMPRESSION: 1. Hepatomegaly and hepatic steatosis. Questionable mild nodularity of the liver contour which could be seen with cirrhosis. 2. Moderate degree of colonic and rectal stool burden. 3. No evidence of bowel obstruction. Normal appendix. 4. Increased sclerosis and subchondral cystic changes in the pubic symphysis suggesting osteitis pubis or degenerative changes, slightly increased since 2019. Correlate with point tenderness.
[2022-12-07 13:06] VITALS: BP 199/86; PULSE 75; RESP 18; TEMP 36.6; O2SAT 98; BMI 41.1
--- NOTE | 2022-12-07 13:06 | ED.ABDPAIN ---
HPI - Abdominal Pain General Chief Complaint: Abdominal Pain <DANYELL Perez - Last Filed: 12/07/22 13:10> Stated Complaint: abd pain <DANYELL Perez - Last Filed: 12/07/22 13:10> Time Seen by Provider: 12/07/22 17:58 <DANYELL Perez - Last Filed: 12/07/22 13:10> Source: patient <Jose Juan Saucedo MD - Last Filed: 12/07/22 18:27> Mode of arrival: ambulatory <Jose Juan Saucedo MD - Last Filed: 12/07/22 18:27> Limitations: no limitations <Jose Juan Saucedo MD - Last Filed: 12/07/22 18:27> History of Present Illness HPI narrative: 62-year-old female presents with right-sided abdominal pain started about 1 month ago. Symptoms are usually mild to moderate but over the last 24 hours a been severe. Pain is intermittent. It is worse with movement or trying to go to the bathroom. The pain does not radiate. It is not associated with nausea, vomiting, diarrhea, constipation. There has been no fevers or chills. She denies any urinary frequency, urgency or dysuria. She denies any hematuria. Son reports patient has a dorsal column stimulator. Patient also reports that the symptoms are improved with ibuprofen. Patient is unable to describe how the pain feels. <Jose Juan Saucedo MD - Last Filed: 12/07/22 18:27> Related Data Home Medications: Home Medications Medication Instructions Recorded Confirmed ibuprofen 200 mg capsule 400 mg PO Q8H 06/09/22 12/02/22 Previous Rx's Medication Instructions Recorded albuterol sulfate 90 mcg/actuation 2 inh PO Q4H PRN shortness of 08/13/20 aerosol inhaler breath or wheezing #8.5 grams lancets 28 gauge #100 ea 11/12/20 metformin 1,000 mg tablet 1,000 mg PO BID 90 days #180 tabs 05/01/21 linagliptin 5 mg tablet (Tradjenta) 5 mg PO DAILY 90 days #90 tabs 02/20/22 fluticasone 250 mcg-salmeterol 50 1 inh inhalation BID cough / COPD 04/01/22 mcg/dose blistr powdr for 30 days #60 ea inhalation (Wixela Inhub) abatacept 125 mg/mL subcutaneous 125 mg subcut QWEEK #4 mL 09/25/22 auto-injector (Orencia ClickJect) lisinopril 5 mg tablet 5 mg PO DAILY 90 days #90 tabs 10/15/22 blood sugar diagnostic (FreeStyle #50 ea 10/16/22 Lite Strips) blood-glucose meter (FreeStyle #1 ea 10/16/22 Lite Meter kit) lancets 28 gauge (FreeStyle #100 ea 10/16/22 Lancets) lidocaine 5 % topical patch 1 patch topical DAILY #15 ea 11/16/22 (Lidoderm) <DANYELL Perez - Last Filed: 12/07/22 13:10> Allergies/Adverse Reactions: Allergies Allergy/AdvReac Type Severity Reaction Status Date / Time cyclobenzaprine Allergy Intermediate Dizziness Verified 12/07/22 12:18 [From Flexeril] orphenadrine [From Norflex] Allergy Intermediate Dizziness Verified 12/07/22 12:18 sarilumab [From Kevzara] Allergy Intermediate Rash Verified 12/07/22 12:18 <DANYELL Perez - Last Filed: 12/07/22 13:10> Review of Systems Review of Systems CONSTITUTIONAL: Denies weight loss, fever and chills. HEENT: Denies changes in vision and hearing. RESPIRATORY: Denies SOB and cough. CV: Denies palpitations no CP. GI: Positive abdominal pain, negative for nausea, vomiting and diarrhea. : Denies dysuria and urinary frequency. MSK: Denies myalgia and joint pain. Positive back pain SKIN: Denies rash and pruritus. NEUROLOGICAL: Denies headache and syncope. PSYCHIATRIC: Denies recent changes in mood. Denies anxiety and depression. All other ROS are negative unless in HPI <Jose Juan Saucedo MD - Last Filed: 12/07/22 18:27> [facility] Past Medical History Medical History: Medical History Asthma Asthma exacerbation Burning with urination Costovertebral angle tenderness Diabetes Disc degeneration, lumbar Dyslipidemia Essential hypertension History of COVID-19 Hospital discharge follow-up Morbid obesity Pleuritic pain Renal calculi Restrictive lung disease Rheumatoid arthritis Right-sided back pain Sacroiliitis Seropositive rheumatoid arthritis Spondylosis of cervical spine Spondylosis of lumbar spine Vaginal [place] <DANYELL Perez - Last Filed: 12/07/22 13:10> Surgical History: Surgical History History of cholecystectomy History of surgery on wrist Hx of colonoscopy (09/01/19) <DANYELL Perez - Last Filed: 12/07/22 13:10> Family History Family History: Family History Father Diabetes mellitus Myocardial infarction Hypertension CVD (cardiovascular disease) Mother Diabetes mellitus CVD (cardiovascular disease) Sister No problems noted. Son No problems noted. Son No problems noted. Son No problems noted. Daughter Thyroiditis Daughter No problems noted. Daughter No problems noted. Daughter No problems noted. Daughter No problems noted. <DANYELL Perez - Last Filed: 12/07/22 13:10> Social History Social History: Social History Housing: Apartment Alcohol intake: never Patient Tobacco Use Status: Never used Tobacco e-Cigarette/Vaping Use: Never Used Second Hand Smoke Exposure: No Advance Directives: No Advance Directives Information Provided: Yes service: No Current occupational status: disabled Sexual orientation: Straight/Heterosexual Gender identity: Female Cognitive needs: No Hearing needs: No Vision needs: No <DANYELL Perez - Last Filed: 12/07/22 13:10> Physical Exam ED Vital Signs: Vital Signs - 24 hr 12/07/22 13:06 Temperature 98 F Pulse Rate 75 Respiratory Rate 18 Blood Pressure 199/86 H Pulse Oximetry 98 Oxygen Delivery Method Room Air BMI result Body Mass Index 41.1 <DANYELL Perez - Last Filed: 12/07/22 13:10> Vital Signs - 24 hr 12/07/22 13:06 Temperature 98 F Pulse Rate 75 Respiratory Rate 18 Blood Pressure 199/86 H Pulse Oximetry 98 Oxygen Delivery Method Room Air BMI result Body Mass Index 41.1 <Jose Juan Saucedo MD - Last Filed: 12/07/22 18:27> GEN: Well developed, no acute distress, alert, oriented HEENT: Normocephalic, atraumatic, normal external ears, nose appears normal, no oropharyngeal edema or exudates Eyes: Normal to appearance Neck: Supple, no lymphadenopathy Respiratory: Talks in complete sentences, no respiratory distress, clear to auscultation bilaterally Cardiovascular: Regular rate and rhythm, no murmurs rubs or gallops Abdomen: Soft, nontender, nondistended, no guarding, no rebound Back: No CVA tenderness Extremities: No clubbing cyanosis or edema Neurologic: No focal neurologic deficits, cranial nerves 2-12 intact, strength is 5/5 bilaterally, gait normal Skin: No rash <Jose Juan Saucedo MD - Last Filed: 12/07/22 18:27> Course Course Course Narrative: RME - 62 yo Divehi speaking female with history of RA, DM, HTN, HLD, chronic back pain s/p implant 11/19/22 presenting to the ER for evaluation of right sided abdominal pain for the last couple of days, acute worse today. No N/V/D. Pain is worse when having a bowel movement, admits to intermittent constipation. BP elevated in triage 199/86. No chest pain. Plan: labs and CT scan. stable to go back to waiting room until tx room available. <DANYELL Perez - Last Filed: 12/07/22 13:10> Reevaluation(s) Reevaluation #1: Patient's CT scan demonstrates constipation, hepatic steatosis with possible cirrhosis, normal appendix, no bowel obstruction a some sclerotic changes to the pelvic bones. There is no obvious indication for the in the etiology of the patient's pain. We are currently awaiting on a urinalysis. <Jose Juan Saucedo MD - Last Filed: 12/07/22 18:27> Time: 18:24 <Jose Juan Saucedo MD - Last Filed: 12/07/22 18:27> Medical Decision Making Medical Decision Making MDM Narrative: 62-year-old female with right-sided abdominal pain. Examination was benign. Will order laboratory analysis, CT scan, urinalysis. Patient is also noted to be hypertensive. Will continue to monitor this. This could be secondary to pain or possibly due to underlying blood pressure related issues. <Jose Juan Saucedo MD - Last Filed: 12/07/22 18:27> Differential Diagnosis Differential Diagnoses: The differential diagnosis associated with the presentation includes (Appendicitis, diverticulitis, colitis, IBS, IBD, renal colic, ureterolithiasis, radiculopathy) <Jose Juan Saucedo MD - Last Filed: 12/07/22 18:27> Abdominal pain <Jose Juan Saucedo MD - Last Filed: 12/07/22 18:27> Admission/Observation Consideration of admission/observation: Escalation of care including admission/observation considered <Jose Juan Saucedo MD - Last Filed: 12/07/22 18:27> Lab Data MDM Lab Attestation statement: I reviewed the patient's lab results. <Jose Juan Saucedo MD - Last Filed: 12/07/22 18:27> Result Diagrams: 12/07/22 13:32 12/07/22 13:32 <DANYELL Perez - Last Filed: 12/07/22 13:10> Labs: Lab Results 12/07/22 12/07/22 Range/Units 13:32 13:32 WBC 8.3 (4.8-10.8) X10*3/uL RBC 4.32 (4.20-5.50) X10*6/uL Hgb 13.4 (12.0-16.0) g/dl Hct 39.4 (37.0-47.0) % MCV 91.2 (80.0-98.0) fL MCH 31.0 (27.0-33.0) pg MCHC 34.0 (31.0-35.0) g/dl RDW 11.7 (11.0-16.0) % Plt Count 192 (160-400) X10*3/uL MPV 10.9 (9.4-12.3) fL Immature Gran % (Auto) 0.8 H (0.0-0.4) % Neut % (Auto) 77.4 H (45-73) % Lymph % (Auto) 13.1 L (20-40) % [place] % (Auto) 4.0 (2-11) % Eos % (Auto) 4.2 H (0-4) % Baso % (Auto) 0.5 (0-2) % Lymph # (Auto) 1.1 L (1.2-4.9) X10*3/uL [place] # (Auto) 0.3 (0.1-1.2) X10*3/uL Eos # (Auto) 0.4 (0.0-0.4) X10*3/uL Baso # (Auto) 0.0 (0.0-0.2) X10*3/uL Abs Immat Gran (auto) 0.07 H (0.00-0.03) X10*3/uL Absolute Neuts (auto) 6.4 (2.0-8.3) x10*3/uL Absolute Nucleated RBC 0.000 (0.0-0.012) X10*3/uL Nucleated RBC % (auto) 0.0 (0.0-0.2) /100WBC Sodium 142 (135-145) mmol/L Potassium 4.2 (3.3-5.1) mmol/L Chloride 109 H (96-108) mmol/L Carbon Dioxide 27 (22-29) mmol/L Anion Gap 10 L (12-20) BUN 13 (9-16) mg/dL Creatinine 0.69 (0.5-1.4) mg/dL Estim Creat Clear Calc 91.0 Estimated GFR > 60 Random Glucose 138 H (60-115) mg/dL Calcium 9.2 (8.4-10.2) mg/dL Magnesium 1.6 (1.6-2.6) mg/dL Total Bilirubin 0.7 (0.0-1.0) mg/dL Direct Bilirubin 0.2 (0.0-0.5) mg/dL AST 24 (5-31) U/L ALT 22 (0-31) U/L Alkaline Phosphatase 102 (39-117) U/L Total Protein 6.8 (6.5-8.0) g/dL Albumin 3.7 (3.5-5.0) g/dL <DANYELL Perez - Last Filed: 12/07/22 13:10> Lab Results 12/07/22 12/07/22 Range/Units 13:32 13:32 WBC 8.3 (4.8-10.8) X10*3/uL RBC 4.32 (4.20-5.50) X10*6/uL Hgb 13.4 (12.0-16.0) g/dl Hct 39.4 (37.0-47.0) % MCV 91.2 (80.0-98.0) fL MCH 31.0 (27.0-33.0) pg MCHC 34.0 (31.0-35.0) g/dl RDW 11.7 (11.0-16.0) % Plt Count 192 (160-400) X10*3/uL MPV 10.9 (9.4-12.3) fL Immature Gran % (Auto) 0.8 H (0.0-0.4) % Neut % (Auto) 77.4 H (45-73) % Lymph % (Auto) 13.1 L (20-40) % [place] % (Auto) 4.0 (2-11) % Eos % (Auto) 4.2 H (0-4) % Baso % (Auto) 0.5 (0-2) % Lymph # (Auto) 1.1 L (1.2-4.9) X10*3/uL [place] # (Auto) 0.3 (0.1-1.2) X10*3/uL Eos # (Auto) 0.4 (0.0-0.4) X10*3/uL Baso # (Auto) 0.0 (0.0-0.2) X10*3/uL Abs Immat Gran (auto) 0.07 H (0.00-0.03) X10*3/uL Absolute Neuts (auto) 6.4 (2.0-8.3) x10*3/uL Absolute Nucleated RBC 0.000 (0.0-0.012) X10*3/uL Nucleated RBC % (auto) 0.0 (0.0-0.2) /100WBC Sodium 142 (135-145) mmol/L Potassium 4.2 (3.3-5.1) mmol/L Chloride 109 H (96-108) mmol/L Carbon Dioxide 27 (22-29) mmol/L Anion Gap 10 L (12-20) BUN 13 (9-16) mg/dL Creatinine 0.69 (0.5-1.4) mg/dL Estim Creat Clear Calc 91.0 Estimated GFR > 60 Random Glucose 138 H (60-115) mg/dL Calcium 9.2 (8.4-10.2) mg/dL Magnesium 1.6 (1.6-2.6) mg/dL Total Bilirubin 0.7 (0.0-1.0) mg/dL Direct Bilirubin 0.2 (0.0-0.5) mg/dL AST 24 (5-31) U/L ALT 22 (0-31) U/L Alkaline Phosphatase 102 (39-117) U/L Total Protein 6.8 (6.5-8.0) g/dL Albumin 3.7 (3.5-5.0) g/dL <Jose Juan Saucedo MD - Last Filed: 12/07/22 18:27> Radiology Impression Discussion of test interpretation with radiology: I have reviewed the radiologist's reading. ( CT/CT abdomen pelvis wo IV con IMPRESSION: 1. Hepatomegaly and hepatic steatosis. Questionable mild nodularity of the liver contour which could be seen with cirrhosis. 2. Moderate degree of colonic and rectal stool burden. 3. No evidence of bowel obstruction. Normal appendix. 4) <Jose Juan Saucedo MD - Last Filed: 12/07/22 18:27> Independent Historian Clinical information obtained from an independent historian. History obtained from or confirmed by: Other (Son) <Jose Juan Saucedo MD - Last Filed: 12/07/22 18:27> External Record Review External record reviewed: Office record (Primary care provider note from 11/16/2022) <Jose Juan Saucedo MD - Last Filed: 12/07/22 18:27> Tests considered The following testing was considered but not selected: MRI <Jose Juan Saucedo MD - Last Filed: 12/07/22 18:27> Prescription Management I considered prescription management with: Pain Medication <Jose Juan Saucedo MD - Last Filed: 12/07/22 18:27> Chronic Conditions Patient?s care impacted by: Diabetes and Hypertension <Jose Juan Saucedo MD - Last Filed: 12/07/22 18:27> Discharge Plan Discharge Clinical Impression: Abdominal pain <DANYELL Perez - Last Filed: 12/07/22 13:10> Prescriptions: No Action albuterol sulfate 90 mcg/actuation HFA aerosol inhaler 2 inh PO Q4H PRN (Reason: shortness of breath or wheezing) Qty: 8.5 1RF (DME) lancets 28 gauge misc See Rx Instructions topical TID Qty: 100 11RF Rx Instructions: FREESTYLE LITE E11.9 ONCE A DAY Tradjenta 5 mg tablet 5 mg PO DAILY 90 Days Qty: 90 1RF Orencia ClickJect 125 mg/mL auto-injector 125 mg subcut QWEEK Qty: 4 1RF lisinopril 5 mg tablet 5 mg PO DAILY 90 Days Qty: 90 0RF metformin 1,000 mg tablet 1,000 mg PO BID 90 Days Qty: 180 1RF (DME) FreeStyle Lite Strips Strip See Rx Instructions .ROUTE .MEDSUPPLY Qty: 50 11RF Rx Instructions: Use 1 test strip once a day (DME) blood-glucose meter [FreeStyle Lite Meter] Kit See Rx Instructions .ROUTE .MEDSUPPLY Qty: 1 0RF Rx Instructions: E11.9 ONCE A DAY (DME) lancets [FreeStyle Lancets] 28 gauge misc See Rx Instructions .ROUTE .MEDSUPPLY Qty: 100 11RF Rx Instructions: Use 1 lancet once a day as needed lidocaine [Lidoderm] 5 % adhesive patch,medicated 1 patch topical DAILY Qty: 15 0RF Rx Instructions: leave on most painful area for up to 12 hrs fluticasone propion-salmeterol [Wixela Inhub] 250-50 mcg/dose blister with device 1 inh inhalation BID 30 Days Qty: 60 3RF ibuprofen 200 mg capsule 400 mg PO Q8H <DANYELL Perez - Last Filed: 12/07/22 13:10> Referrals: Jose Juan Saucedo MD [Emergency Provider] - Aniyah Gonzalez MD [Primary Care Provider] - 2 days <DANYELL Perez - Last Filed: 12/07/22 13:10> Print Language: Divehi <DANYELL Perez - Last Filed: 12/07/22 13:10>
[2022-12-07 13:36] LABS: MANUAL DIFF FLAG NO
[2022-12-07 13:41] LABS: Basophils Percent Auto 0.5 % (0-2); Eosinophils Absolute Auto 0.4 X10*3/uL (0.0-0.4); Eosinophils Percent Auto 4.2 % (0-4); Hematocrit 39.4 % (37.0-47.0); Hemoglobin 13.4 g/dl (12.0-16.0); Imm Gran Abs Auto 0.07 X10*3/uL (0.00-0.03); Imm Gran Pct Auto 0.8 % (0.0-0.4); Lymphocytes Absolute Auto 1.1 X10*3/uL (1.2-4.9); Lymphocytes Percent Auto 13.1 % (20-40); Mean Corpuscular Volume 91.2 fL (80.0-98.0); Mean Platelet Volume 10.9 fL (9.4-12.3); Monocytes Absolute Auto 0.3 X10*3/uL (0.1-1.2); Neutrophils Absolute Auto 6.4 x10*3/uL (2.0-8.3); Neutrophils Percent Auto 77.4 % (45-73); Platelet Count 192 X10*3/uL (160-400); Red Blood Count 4.32 X10*6/uL (4.20-5.50); Red Cell Distribution Width 11.7 % (11.0-16.0); White Blood Count 8.3 X10*3/uL (4.8-10.8)
[2022-12-07 13:58] LABS: Alanine Aminotransferase 22 U/L (0-31); Albumin Level 3.7 g/dL (3.5-5.0); Alkaline Phosphatase 102 U/L (39-117); Anion Gap 10 (12-20); Aspartate Amino Transferase 24 U/L (5-31); Bilirubin Direct 0.2 mg/dL (0.0-0.5); Bilirubin Total 0.7 mg/dL (0.0-1.0); Blood Urea Nitrogen 13 mg/dL (9-16); Calcium 9.2 mg/dL (8.4-10.2); Carbon Dioxide 27 mmol/L (22-29); Chloride 109 mmol/L (96-108); Estimated Glomerular Filt Rate > 60; Glucose Random 138 mg/dL (60-115); Magnesium 1.6 mg/dL (1.6-2.6); Potassium 4.2 mmol/L (3.3-5.1); Sodium 142 mmol/L (135-145); Total Protein 6.8 g/dL (6.5-8.0)
[2022-12-07 18:38] VITALS: BP 163/83
[2022-12-07 19:01] LABS: Appearance Urine Clear; Color Urine Yellow; Glucose Urine UA Negative (Negative); Leukocyte Esterase Urine Negative (Negative); Nitrite Urine Negative (Negative); PH 5.5 (5.0-9.0); Specific Gravity - Urine 1.015 (1.005-1.025); Urine Blood Negative (Negative); Urine Ketones Negative (Negative); Urine Protein Negative (Neg-Trace)
== END 2022-12-07 20:23 | disposition home or self-care (01) ==
PROVIDERS: Physician Assistant; Emergency Provider Emergency Medicine; PCP Internal Medicine
DX: R10.9 Unspecified abdominal pain (principal); K59.00 Constipation, unspecified; E11.9 Type 2 diabetes mellitus without complications; E78.5 Hyperlipidemia, unspecified; I10 Essential (primary) hypertension; E66.9 Obesity, unspecified; Z68.41 Body mass index [BMI] 40.0-44.9, adult; Z79.84 Long term (current) use of oral hypoglycemic drugs; Z79.899 Other long term (current) drug therapy
CPT/HCPCS: 36415; 74176; 80048; 80076; 81003; 83735; 85025; 99283; 99284

== ENCOUNTER → 2022-12-11 12:55 | Outpatient (BNVA) | payer OTHER, SELFPAY | PROVIDERS: PCP Internal Medicine; Visit Provider Nurse Practitioner Family | DX: M47.816 Spondylosis without myelopathy or radiculopathy, lumbar region (principal); M46.1 Sacroiliitis, not elsewhere classified; M54.16 Radiculopathy, lumbar region; M51.36 Other intervertebral disc degeneration, lumbar region | CPT/HCPCS: 99212 ==

== ENCOUNTER 2023-02-17 06:41 | Outpatient (REF) | payer OTHER, SELFPAY ==
--- NOTE | ~2023-02-17 | CT_ITS ---
EXAMINATION: CT CHEST WITH CONTRAST CLINICAL INFORMATION: Other nonspecific abnormal finding of lung field COMPARISON: Previous chest CT November 2022 TECHNIQUE: Multidetector volumetric CT imaging of the chest was obtained after the administration of 50 mL of Omnipaque 350 intravenous contrast without immediate adverse reactions. Axial MIP volume rendering provided. Sagittal and coronal reformatted images were obtained. This CT examination was performed using dose optimization techniques as appropriate, variously including the following: *Automated exposure control *Adjustment of mA and/or kV according to patient size (this includes techniques or standardized protocols for targeted exams where dose is matched to indication/reason for exam; i.e. extremities or head) *Use of iterative reconstruction technique DLP: 187 mGy-cm FINDINGS: LUNGS: 6 mm right peripheral or subpleural nodule adjacent to the minor fissure axial image 81 series 5 is stable. There are increased peripheral reticular markings seen, greatest in the right middle lobe and the dependent bilateral lower lobes. Similar to November 2022 exam and questionable mild interstitial lung disease. There are scattered small areas of increased attenuation in the lungs. This is seen both centrally and peripherally and may have a peribronchial distribution. Current is questionable for airways disease versus changes related to interstitial lung disease. Clinical correlation recommended. MEDIASTINUM: Small mediastinal and bilateral hilar lymph nodes. No enlarged lymph nodes. Upper normal heart size. No pericardial effusion. Normal caliber thoracic aorta. PLEURA: There is no pleural effusion. No pleural mass or thickening. AXILLA: Small bilateral axillary lymph nodes. No enlarged axillary lymph nodes or chest wall mass. UPPER ABDOMEN: Fatty liver. OSSEOUS STRUCTURES: Degenerative changes of the spine. CT/CT chest w IV con IMPRESSION: Stable 6 mm right pulmonary nodule adjacent to the minor fissure probably representing a subpleural lymph node. Question mild interstitial lung disease. Fleischner guidelines were followed.
[2023-02-17 06:49] LABS: MANUAL DIFF FLAG NO
[2023-02-17 07:36] LABS: Basophils Absolute Auto 0.1 X10*3/uL (0.0-0.2); Basophils Percent Auto 0.8 % (0-2); Eosinophils Absolute Auto 0.5 X10*3/uL (0.0-0.4); Hematocrit 41.3 % (37.0-47.0); Hemoglobin 13.7 g/dl (12.0-16.0); Imm Gran Abs Auto 0.04 X10*3/uL (0.00-0.03); Imm Gran Pct Auto 0.5 % (0.0-0.4); Lymphocytes Absolute Auto 2.4 X10*3/uL (1.2-4.9); Lymphocytes Percent Auto 30.1 % (20-40); Mean Corpuscular HGB Conc 33.2 g/dl (31.0-35.0); Mean Corpuscular Hemoglobin 31.2 pg (27.0-33.0); Mean Corpuscular Volume 94.1 fL (80.0-98.0); Mean Platelet Volume 12.1 fL (9.4-12.3); Monocytes Absolute Auto 0.6 X10*3/uL (0.1-1.2); Monocytes Percent Auto 7.1 % (2-11); Neutrophils Absolute Auto 4.4 x10*3/uL (2.0-8.3); Neutrophils Percent Auto 55.5 % (45-73); Platelet Count 186 X10*3/uL (160-400); Red Blood Count 4.39 X10*6/uL (4.20-5.50); Red Cell Distribution Width 11.8 % (11.0-16.0)
[2023-02-17 08:14] LABS: Alanine Aminotransferase 23 U/L (0-31); Albumin Level 3.6 g/dL (3.5-5.0); Alkaline Phosphatase 103 U/L (39-117); Anion Gap 10 (12-20); Aspartate Amino Transferase 21 U/L (5-31); Bilirubin Total 0.9 mg/dL (0.0-1.0); Blood Urea Nitrogen 11 mg/dL (9-16); Calcium 8.9 mg/dL (8.4-10.2); Carbon Dioxide 29 mmol/L (22-29); Chloride 108 mmol/L (96-108); Estimated Glomerular Filt Rate > 60; Glucose Random 177 mg/dL (60-115); Potassium 4.4 mmol/L (3.3-5.1); Sodium 143 mmol/L (135-145); Total Protein 6.4 g/dL (6.5-8.0)
[2023-02-17 08:27] LABS: Erythrocyte Sedimentation Rate 34 MM/HR (0-20)
[2023-02-17] MEDS: iohexoL 350 MG/ML 100 ML INFUS..BTL IV (09:04)
== END 2023-02-17 06:42 | disposition home or self-care (01) ==
LOC: HO.CT 06:41
PROVIDERS: Nurse Practitioner Family; PCP Internal Medicine; Visit Provider Nurse Practitioner Family
DX: R91.8 Other nonspecific abnormal finding of lung field (principal); M05.9 Rheumatoid arthritis with rheumatoid factor, unspecified
CPT/HCPCS: 36415; 71260; 80053; 85025; 85652; 86140; Q9967

== ENCOUNTER → 2023-03-03 08:33 | Outpatient (BNVA) | payer OTHER, SELFPAY | PROVIDERS: PCP Internal Medicine; Visit Provider Nurse Practitioner Family | DX: M05.9 Rheumatoid arthritis with rheumatoid factor, unspecified (principal) | CPT/HCPCS: 99212 ==

== ENCOUNTER 2023-03-05 08:58 | Day surgery (SDC) | payer OTHER, SELFPAY ==
--- NOTE | 2023-02-18 10:54 | HO.ANESPROP2 ---
Documented by User: Aiyana Decker NP 02/24/23 15:22 HPI - Anesthesia Eval Consult details Narrative: 63yo F for Bilateral L5-S1 Transforaminal Epidural Steroid Injection, 03/05/23 s/p SPRINT 11/2022 with TIVA PMFSH Active Problems Active Problems: All Active Problems (Updated 12/11/22 @ 15:46 by [facility]) Lumbar radiculopathy (Acute) Right-sided back pain (Acute) Pelvic pain (Acute) Vaginal discharge (Acute) LFT elevation (Acute) Chronic idiopathic constipation (Acute) Lower abdominal pain (Acute) Bacterial vaginosis (Acute) Well woman exam (Acute) Lumbar spondylosis (Acute) Postmenopausal bleeding (Acute) Cough (Acute) Pulmonary nodules (Acute) COVID-19 (Acute) Normal physical exam, routine (Acute) Spondylosis of lumbar region without myelopathy or radiculopathy (Acute) Asthma exacerbation (Acute) Hospital discharge follow-up (Acute) Sacroiliitis (Acute) Renal calculi (Acute) Costovertebral angle tenderness (Acute) Burning with urination (Acute) Sacroiliitis (Acute) Disc degeneration, lumbar (Acute) Spondylosis of cervical spine (Acute) Spondylosis of lumbar spine (Acute) Pleuritic pain (Acute) Restrictive lung disease (Acute) Morbid obesity (Acute) Asthma (Acute) Dyslipidemia (Acute) Essential hypertension (Acute) Diabetes (Acute) Vaginal [place] (Acute) Seropositive rheumatoid arthritis (Acute) Past Medical History Medical History Asthma Asthma exacerbation Burning with urination Costovertebral angle tenderness Diabetes Disc degeneration, lumbar Dyslipidemia Essential hypertension History of COVID-19 Hospital discharge follow-up Morbid obesity Pleuritic pain Renal calculi Restrictive lung disease Rheumatoid arthritis Right-sided back pain Sacroiliitis Seropositive rheumatoid arthritis Spondylosis of cervical spine Spondylosis of lumbar spine TIA (transient ischemic attack) Vaginal [place] Family History Family History Father Diabetes mellitus Myocardial infarction Hypertension CVD (cardiovascular disease) Mother Diabetes mellitus CVD (cardiovascular disease) Sister No problems noted. Son No problems noted. Son No problems noted. Son No problems noted. Daughter Thyroiditis Daughter No problems noted. Daughter No problems noted. Daughter No problems noted. Daughter No problems noted. Family history of problems with anesthesia: No Surgical History Surgical History History of cholecystectomy History of surgery on wrist Hx of colonoscopy (09/01/19) History of Problems with Anesthesia: No Social History Social History Housing: Apartment Alcohol intake: never Patient Tobacco Use Status: Never used Tobacco e-Cigarette/Vaping Use: Never Used Second Hand Smoke Exposure: No Use of substances other than those prescribed or required for medical reasons: No Are you DNR?: No Advance Directives: No Advance Directives Information Provided: Yes service: No Current occupational status: disabled Sexual orientation: Straight/Heterosexual Gender identity: Female Cognitive needs: No Hearing needs: No Vision needs: No Meds Allergies Allergy/AdvReac Type Severity Reaction Status Date / Time cyclobenzaprine Allergy Intermediate Dizziness Verified 03/05/23 09:17 [From Flexeril] orphenadrine [From Norflex] Allergy Intermediate Dizziness Verified 03/05/23 09:17 sarilumab [From Kevzara] Allergy Intermediate Rash Verified 03/05/23 09:17 Home Medications Medication Instructions Recorded Confirmed Last Taken Type ibuprofen 200 mg capsule 400 mg PO Q8H 06/09/22 03/05/23 Unknown History Exam Exam Date and Time: February 18, 2023 1054 Pertinent Lab Results Pertinent Lab Results: Laboratory Tests 02/17/23 02/17/23 06:48 06:48 WBC 8.0 Hgb 13.7 Hct 41.3 Plt Count 186 Sodium 143 Potassium 4.4 Chloride 108 Carbon Dioxide 29 BUN 11 Creatinine 0.79 Narrative Narrative: EKG 2021 Vent. Rate : 074 BPM ? ? Atrial Rate : 074 BPM ?? P-R Int : 186 ms? QRS Dur : 090 ms ? ? QT Int : 398 ms ? ? ? P-R-T Axes : 022 -05 032 degrees ?? QTc Int : 441 ms ? Normal sinus rhythm Minimal voltage criteria for LVH, may be normal variant ( [place] product ) Borderline ECG When compared with ECG of 19-DEC-2021 12:35, No significant change was found Assessment and Plan Assessment Anesthesia Assessment: Chart Reviewed Final Anesthetic Review Family History of Problems with Anesthesia: No History of Problems with Anesthesia: No Documented by User: Deja Edgar MD 03/05/23 10:35 [facility] Active Problems Active Problems: All Active Problems (Updated 03/05/23 @ 09:40 by [facility]) Lumbar radiculopathy (Acute) Right-sided back pain (Acute) Pelvic pain (Acute) Vaginal discharge (Acute) LFT elevation (Acute) Chronic idiopathic constipation (Acute) Lower abdominal pain (Acute) Bacterial vaginosis (Acute) Well woman exam (Acute) Lumbar spondylosis (Acute) Postmenopausal bleeding (Acute) Cough (Acute) Pulmonary nodules (Acute) COVID-19 (Acute) Normal physical exam, routine (Acute) Spondylosis of lumbar region without myelopathy or radiculopathy (Acute) Asthma exacerbation (Acute) Hospital discharge follow-up (Acute) Sacroiliitis (Acute) Renal calculi (Acute) Costovertebral angle tenderness (Acute) Burning with urination (Acute) Sacroiliitis (Acute) Disc degeneration, lumbar (Acute) Spondylosis of cervical spine (Acute) Spondylosis of lumbar spine (Acute) Pleuritic pain (Acute) Restrictive lung disease (Acute) Morbid obesity (Acute) Asthma (Acute) Dyslipidemia (Acute) Essential hypertension (Acute) Diabetes (Acute) Vaginal [place] (Acute) Seropositive rheumatoid arthritis (Acute) Past Medical History Medical History Asthma Asthma exacerbation Burning with urination Costovertebral angle tenderness Diabetes Disc degeneration, lumbar Dyslipidemia Essential hypertension History of COVID-19 Hospital discharge follow-up Morbid obesity Pleuritic pain Renal calculi Restrictive lung disease Rheumatoid arthritis Right-sided back pain Sacroiliitis Seropositive rheumatoid arthritis Spondylosis of cervical spine Spondylosis of lumbar spine TIA (transient ischemic attack) Vaginal [place] Family History Family History Father Diabetes mellitus Myocardial infarction Hypertension CVD (cardiovascular disease) Mother Diabetes mellitus CVD (cardiovascular disease) Sister No problems noted. Son No problems noted. Son No problems noted. Son No problems noted. Daughter Thyroiditis Daughter No problems noted. Daughter No problems noted. Daughter No problems noted. Daughter No problems noted. Surgical History Surgical History History of cholecystectomy History of surgery on wrist Hx of colonoscopy (09/01/19) Social History Social History Housing: Apartment Alcohol intake: never Patient Tobacco Use Status: Never used Tobacco e-Cigarette/Vaping Use: Never Used Second Hand Smoke Exposure: No Use of substances other than those prescribed or required for medical reasons: No Are you DNR?: No Advance Directives: No Advance Directives Information Provided: Yes service: No Current occupational status: disabled Sexual orientation: Straight/Heterosexual Gender identity: Female Cognitive needs: No Hearing needs: No Vision needs: No Meds Allergies Allergy/AdvReac Type Severity Reaction Status Date / Time cyclobenzaprine Allergy Intermediate Dizziness Verified 03/05/23 09:17 [From Flexeril] orphenadrine [From Norflex] Allergy Intermediate Dizziness Verified 03/05/23 09:17 sarilumab [From Kevzara] Allergy Intermediate Rash Verified 03/05/23 09:17 Home Medications Medication Instructions Recorded Confirmed Last Taken Type ibuprofen 200 mg capsule 400 mg PO Q8H 06/09/22 03/05/23 Unknown History Exam Height,Weight and Vital Signs: Height 5 ft 1 in Weight 98.883 kg Vital Signs Temp Pulse Resp BP Pulse Ox O2 Del Method 03/05/23 09:25 97.4 F 71 17 170/96 H 98 Room Air Airway Mallampati Class: III TM Dist: >3cm Neck ROM: Full Partial: Upper Loose/Missing/Broken Teeth: Yes (Denies broken, loose teeth) Heart: RRR Lungs: CTAB. No wheeze Assessment and Plan Assessment Anesthesia Assessment: Anesthesia Plan Discussed Final Anesthetic Review NPO: Yes ASA Class: III Final Preanesthetic Review: No Changes in Pt Med Stat, Meds/Allgs Chart Reviewed, Consent Obtained/Reviewed and Anes Risks/Benef Reviewed Patient Risk: Intermediate Procedure Risk: Low Assessment/Block/Sedation in SS: Assess/Block/Sedation-SS Anesthetic Plan Anesthetic Plan: MAC: Disposition: Standard PACU
[2023-03-03 16:06] VITALS: BMI 41.2
--- NOTE | ~2023-03-05 | FL_ITS ---
EXAMINATION: XR FLUOROSCOPY WITH IMAGES CLINICAL INFORMATION: Pain. Fluoroscopy for pain management. COMPARISON: CT abdomen and pelvis 12/07/2022. TECHNIQUE: Fluoroscopy Supervised By: Dr. Chip Richardson. Fluoroscopy Time: 0.5 minutes. Cumulative Dose: 13.5 mGy. DAP: 3.66 Gycm2. Images: 4. 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 There are spinal needles overlying the bilateral foramina at lumbosacral junction. There is contrast seen in the respective nerve sheaths. Some early transforaminal epidural extension is suggested. No visible vascular communication. FL/FL guidance in OR IMPRESSION: Fluoroscopy for pain management procedures.
[2023-03-05 09:25] VITALS: BP 170/96; PULSE 71; RESP 17; TEMP 36.3; O2SAT 98
[2023-03-05 09:46] LABS: Glucose, Whole Blood 170 mg/dL (60-115)
--- NOTE | 2023-03-05 09:47 | MHC.SHP ---
Pre-Procedural Eval Section A Date of Service: 03/05/23 The patient is an INPATIENT: No Changes since office visit: Yes Patient answered all questions The History & Physical has been completed within 30 days and I have reviewed it.: No Section B Chief Complaint: Radiculopathy, lumbar region,intervertebral disc Details of Present Illness: as above Relevant Family History (Specify if Yes): No Present Medications: None Medical History: No relevant PMH History of Previous Operations: No relevant previous surgery Allergies: Allergies Allergy/AdvReac Type Severity Reaction Status Date / Time cyclobenzaprine Allergy Intermediate Dizziness Verified 03/05/23 09:17 [From Flexeril] orphenadrine [From Norflex] Allergy Intermediate Dizziness Verified 03/05/23 09:17 sarilumab [From Kevzara] Allergy Intermediate Rash Verified 03/05/23 09:17 Review of Systems Sugical H&P ROS: Negative: Cardiovascular, Respiratory, Neurological, Psychiatric, Hem-Onc, Allergic/Immunologic, Gastrointestinal, Genitourinary, Integumentary, Endocrine and Eyes/Ears/Nose/Throat and Yes, Specify: Constitution (morbid obesity) and Musculoskeletal (DDD lumbar & spondylosis lumbar c radiculopathy) Exam Surgical H&P Exam: Normal: HEENT, Normal: Heart, Normal: Lungs, Normal: Extremities, Normal: Skin and Normal: Neurological and Significant Findings: Abdomen (enlarged due to i/a &s/q fat) Plan Diagnosis/Plan: Unchanged I have reviewed the history and physical and performed a pertinent physical examination on my patient. No changes have occurred unless specified. Time Spent With Patient Time: Total time managing care of this patient today ____ minutes.
[2023-03-05] MEDS: Lactated Ringers 1,000 ML 100 ML IVCONT (10:04)
--- NOTE | 2023-03-05 10:05 | W.PM.OPN ---
Operative Note Operative Note Date of Service: 03/05/23 Narrative: Transforaminal epidural steroid injection L5-S1 bilateral Informed consent was thoroughly explained to the patient before the procedure.? The patient came to the operating room.? Shewas positioned prone on operating table with a pillow under her abdomen.? Time-out was performed delineating correct site and side of the procedure, nature of the injection, name and date of of the patient. The lower back of the patient was prepped with ChloraPrep and draped with sterile utility towels.? C-arm was brought over the operating field and sq picture of? L5 vertebra were demonstrated on the screen.? The right side was chosen as the side of the injection.? Tilting machine ipsilateral to the right at the level of L5 - the most prominent picture of the right L5 pedicle and right superior articular process of S1 was obtained on the screen.? right superior articular process of S1 projection to the skin was injected with small amount of lidocaine 1% 3-4 cc to anesthetize the skin.? After that 5 in 22 gauge Quincke point needle was inserted through the skin wheal and was advanced to were the L5-S1 foramina on anterior posterior and oblique views intermittently. when tip of the needle went against the bone in the superior articular process of S1 it was deviated 1st laterally to get around the superior articular process of S1 and then medially to get behind the superior articular process of S1.? When The tip of the needle entered most inferior and lateral portion of the foramina projection on lateral view and on AP view the needle tip was detected in the shadow of the spinal column injection of the contrast was performed demonstrating epidural and perineural spread of the contrast.? After that injection of the treatment medicine 3 cc of lidocaine 1% mixed with Kenalog 30 mg was injected into the foramina.? Injection of the contrast and injection of the treatment medicine was observed live on the screen.? No intrathecal and no intravascular spread of the contrast was noted. After that attention was concentrated on left side. Tilting machine ipsilateral to the Left at the level of L5 - the most prominent picture of the left L5 pedicle and left superior articular process of S1 was obtained on the screen.? left superior articular process of S1 projection to the skin was injected with small amount of lidocaine 1% 3-4 cc to anesthetize the skin.? After that 5 in 22 gauge Quincke point needle was inserted through the skin wheal and was advanced to the L5-S1 foramina on anterior posterior and oblique views intermittently. when tip of the needle went against the bone in the superior articular process of S1 it was deviated 1st laterally to get around the superior articular process of S1 and then medially to get behind the superior articular process of S1.? When The tip of the needle entered most inferior and lateral portion of the foramina projection on lateral view and on AP view the needle tip was detected in the shadow of the spinal column injection of the contrast was performed demonstrating initially intravascular spread of the contrast. The tip of the needle was withdrawn slightly and redirected more cephalad, the contrast was injected again and epidural and perineural spread of the contrast was noted on the screen.? After that injection of the treatment medicine 3 cc of lidocaine 1% mixed with Kenalog 30 mg was injected into the foramina.? Injection of the contrast and injection of the treatment medicine was observed live on the screen.? No intrathecal and no intravascular spread of the contrast was noted. Upon completion of the procedure sterile Band-Aids were applied. Patient tolerated procedure well she was taken outside of the operating room where She recovered uneventfully.?
[2023-03-05 10:38] VITALS: BP 147/93; PULSE 69; RESP 16; TEMP 36.8; O2SAT 99
--- NOTE | 2023-03-05 10:50 | P.BOP_ITS ---
Brief Operative Note Date of Service: 03/05/23 Pre-op diagnosis: spondylosis lumbar with radiculopathy, disc degeneration. Post-op diagnosis: same Procedure: Bilateral transforaminal epidural steroid injection L5-S1 Surgeon: Chip Richardson MD Was an Medical Research Associate used for this Procedure?: No Estimated blood loss (mL): 0 Condition: stable Disposition: PACU
[2023-03-05 10:53] VITALS: BP 150/90; PULSE 68; RESP 16; TEMP 36.4; O2SAT 96
== END 2023-03-05 11:41 | disposition home or self-care (01) ==
PROVIDERS: PCP Internal Medicine; Visit Provider Anesthesiology
PROC: (CPT 64483; principal; 2023-03-05 10:00)
DX: M47.22 Other spondylosis with radiculopathy, cervical region (principal); M47.26 Other spondylosis with radiculopathy, lumbar region; M46.1 Sacroiliitis, not elsewhere classified; M51.36 Other intervertebral disc degeneration, lumbar region; M05.9 Rheumatoid arthritis with rheumatoid factor, unspecified; M25.50 Pain in unspecified joint; I10 Essential (primary) hypertension; J45.909 Unspecified asthma, uncomplicated; E78.5 Hyperlipidemia, unspecified; E11.9 Type 2 diabetes mellitus without complications; E66.01 Morbid (severe) obesity due to excess calories; Z68.41 Body mass index [BMI] 40.0-44.9, adult; M54.9 Dorsalgia, unspecified; Z79.1 Long term (current) use of non-steroidal anti-inflammatories (NSAID); Z88.8 Allergy status to other drugs, medicaments and biological substances; Z90.49 Acquired absence of other specified parts of digestive tract
CPT/HCPCS: 64483; 82947; J2250; J3010; J3301; Q9965

== ENCOUNTER 2023-03-24 14:04 | Outpatient (REF) | payer OTHER, SELFPAY ==
--- NOTE | ~2023-03-24 | MM_ITS ---
EXAMINATION: BONE DENSITOMETRY CLINICAL INDICATION: Asymptomatic menopausal state. COMPARISON: None (current study represents initial baseline exam). TECHNIQUE: Using a [employer] DXA System (software version: 13.1) manufactured by [employer], dual-energy x-ray absorptiometry was performed of the lumbar spine and left hip. The images are of good technical quality. Summary results are attached. FINDINGS: AP SPINE L1-L3 (excluding L4): The data of L1-L4 has been changed to exclude the L4 vertebral body, because degenerative changes at this level may cause overestimation of lumbar spine density. BMD 1.492 g/cm2, Z-score 3.0, T-score 2.7, normal. LEFT FEMUR, NECK: BMD 0.999 g/cm2, Z-score 0.4, T-score -0.3, normal. LEFT FEMUR, TOTAL: BMD 1.123 g/cm2, Z-score 1.2, T-score 0.9, normal. IDENTIFIED RISK FACTORS: Early menopause, glucocorticoids (chronic), rheumatoid arthritis, secondary osteoporosis. HISTORY OF FRACTURE: None listed. MEDICATIONS: Vitamin D. MM/XR DEXA axial skeleton IMPRESSION: 1. DIAGNOSIS: Normal bone density based on the lowest T-score value of -0.3 in the femoral neck applying World Health Organization criteria. 2. 10-YEAR FRACTURE RISK PREDICTION, FRAX: According to the guidelines, FRAX calculation should only be performed on patients in the osteopenia bone density category. Therefore, FRAX was not performed on this patient. 3. Treatment Recommendations: NOF guidelines recommend consideration for treatment in postmenopausal women and men age 50 and older presenting with the following: -A hip or vertebral (clinical or morphometric) fracture. -T-score less than or equal to -2.5 at the femoral neck or spine after appropriate evaluation to exclude secondary causes. -Low bone mass at the hip or spine and a 10-year fracture probability by FRAX of greater than or equal to 3% for hip fracture or greater than or equal to 20% for major osteoporotic fracture based on the [place] adapted WHO algorithm. 4. Other Recommendations: All treatment decisions require clinical judgment and consideration of individual patient factors, including patient preferences, comorbidities, previous drug use, risk factors not captured in the FRAX model (e.g. frailty, falls, vitamin D deficiency, increased bone turnover, interval significant decline in bone density) and possible under or overestimation of fracture risk by FRAX. FUTURE SCAN RECOMMENDATION: People with diagnosed cases of osteoporosis or at high risk for fracture should have regular bone mineral density tests. For patients eligible for Medicare, routine testing is allowed once every 2 years. The testing frequency can be increased to one year for patients who have rapidly progressing disease, those who are receiving or discontinuing medical therapy to restore bone mass, or have additional risk factors.
== END 2023-03-24 14:05 | disposition home or self-care (01) ==
LOC: HO.MAMMO 14:04
PROVIDERS: PCP Internal Medicine; Visit Provider Nurse Practitioner Family
DX: Z13.820 Encounter for screening for osteoporosis (principal); Z78.0 Asymptomatic menopausal state; M05.9 Rheumatoid arthritis with rheumatoid factor, unspecified
CPT/HCPCS: 77080

== ENCOUNTER → 2023-04-02 10:22 | Outpatient (BNVA) | payer OTHER, SELFPAY | PROVIDERS: PCP Internal Medicine; Visit Provider Nurse Practitioner Family | DX: M62.830 Muscle spasm of back (principal); M54.9 Dorsalgia, unspecified; R10.9 Unspecified abdominal pain | CPT/HCPCS: 99212 ==

== ENCOUNTER 2023-04-21 13:30 | Outpatient (AMB) | payer OTHER, SELFPAY ==
--- NOTE | 2023-04-21 13:32 | MHC.OFFVIS ---
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 Healthcare Management Required: Yes Healthcare Management Language: [place] Worker Name: Shanika RAMIREZ Information Interpreted: non-clinical & clinical Oil Derrick Operator: Oil Derrick Operator Present (Shanika) Allergies cyclobenzaprine [From Flexeril] Allergy (Intermediate, Verified 04/21/23 13:35) Dizziness orphenadrine [From Norflex] Allergy (Intermediate, Verified 04/21/23 13:35) Dizziness sarilumab [From Kevzara] Allergy (Intermediate, Verified 04/21/23 13:35) Rash Is last menstrual period known: No Post menopausal: Yes PFSH Medical History Asthma Asthma exacerbation Burning with urination Costovertebral angle tenderness Diabetes Disc degeneration, lumbar Dyslipidemia Essential hypertension History of ID-19 Hospital discharge follow-up Morbid obesity Pleuritic pain Renal calculi Restrictive lung disease Rheumatoid arthritis Right-sided back pain Sacroiliitis Seropositive rheumatoid arthritis Spondylosis of cervical spine Spondylosis of lumbar spine TIA (transient ischemic attack) Vaginal [place] Surgical History History of cholecystectomy History of surgery on wrist Hx of colonoscopy (09/01/19) Family History Father Diabetes mellitus Myocardial infarction Hypertension CVD (cardiovascular disease) Mother Diabetes mellitus CVD (cardiovascular disease) Sister No problems noted. Son No problems noted. Son No problems noted. Son No problems noted. Daughter Thyroiditis Daughter No problems noted. Daughter No problems noted. Daughter No problems noted. Daughter No problems noted. Social History Housing: Apartment Alcohol intake: never Patient Tobacco Use Status: Never used Tobacco e-Cigarette/Vaping Use: Never Used Second Hand Smoke Exposure: No service: No Current occupational status: disabled Sexual orientation: Straight/Heterosexual Gender identity: Female Cognitive needs: No Hearing needs: No Vision needs: No Female Reproductive History Menstrual Age of Menarche: 11 control method: none Date of menopause: 01/22/10 Total pregnancies: 9 Full term: 8 Number of Living Children: 8 Ab induced: 1 Date of last pap smear: 11/15/20 (negative) Date of Mammogram: 03/24/23 Physical Exam Vital Signs: Last Vital Signs BP 130/80 04/21/23 13:33 BMI result Body Mass Index 40.6 Assessment & Plan Assessment & Plan Orders: Orders MM screening mammo BI Today Z12.31 - Encounter for screening mammogram for malignant neoplasm of breast Coding Diagnoses
--- NOTE | 2023-04-21 13:32 | MHC.OFFVIS ---
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 No complaints. Last Pap/HPV was negative in 12/01 Last Mammogram was BI-RADS 1 in 07/01 Last Colonoscopy was done in 08/29, the recommendation was to repeat in [address] [place] [address] Medical History Asthma Asthma exacerbation Burning with urination Costovertebral angle tenderness Diabetes Disc degeneration, lumbar Dyslipidemia Essential hypertension History of - Hospital discharge follow-up Morbid obesity Pleuritic pain Renal calculi Restrictive lung disease Rheumatoid arthritis Right-sided back pain Sacroiliitis Seropositive rheumatoid arthritis Spondylosis of cervical spine Spondylosis of lumbar spine TIA (transient ischemic attack) Vaginal [place] Surgical History History of cholecystectomy History of surgery on wrist Hx of colonoscopy (09/01/19) Family History Father Diabetes mellitus Myocardial infarction Hypertension CVD (cardiovascular disease) Mother Diabetes mellitus CVD (cardiovascular disease) Sister No problems noted. Son No problems noted. Son No problems noted. Son No problems noted. Daughter Thyroiditis Daughter No problems noted. Daughter No problems noted. Daughter No problems noted. Daughter No problems noted. Social History Housing: Apartment Alcohol intake: never Patient Tobacco Use Status: Never used Tobacco e-Cigarette/Vaping Use: Never Used Second Hand Smoke Exposure: No service: No Current occupational status: disabled Sexual orientation: Straight/Heterosexual Gender identity: Female Cognitive needs: No Hearing needs: No Vision needs: No Female Reproductive History Menstrual Age of Menarche: 11 Date of menopause: 01/22/10 Date of last pap smear: 11/15/20 Date of Mammogram: 06/18/21 Date of last Bone Density Screenin03/24/23 Review of Systems Const All systems reviewed & are unremarkable except as noted in HPI and below Card Reports as per HPI Resp Reports as per HPI GI Reports as per HPI and Reports no additional complaints Reports as per HPI Physical Exam Vital Signs: Last Vital Signs BP 130/80 04/21/23 13:33 BMI result Body Mass Index 40.6 Const General: cooperative, healthy appearing and comfortable Chest Chest palpation & inspection: normal inspection of the chest and normal palpation of entire chest wall Breast/axilla inspection: normal inspection of the breasts and normal inspection of the axillae Breast/axilla palpation: normal palpation of the breasts, normal palpation of the axillae and no axillary lymphadenopathy Resp Effort & Inspection: normal respiratory effort Auscultation: clear to auscultation bilaterally Percussion: percussion normal Cardio Palpation: normal PMI Rate: regular rate Rhythm: regular rhythm Heart sounds: no murmurs and no rubs Peripheral pulses: Peripheral pulses 2+ throughout GI Inspection: Yes normal to inspection Palpation (GI): Soft to palpation, nontender, no guarding, not rigid and No hepatosplenomegaly present Percussion: Yes normal to percussion Auscultation: normal bowel sounds Rectal Exam - Female: deferred General: Yes bladder normal to palpation External Female Exam: No lesion Speculum Exam - Vagina: normal appearance of the vagina, normal palpation, normal vaginal discharge and not erythematous Speculum Exam - Cervix: normal appearance of the cervix and normal palpation Bimanual exam- vagina & uterus: normal bimanual exam, normal palpation, uterine size normal, bladder normal to palpation, consistency normal and normal palpation Bimanual Exam- Adnexa, other: normal adnexae, no masses and no tenderness Assessment & Plan Assessment & Plan (1) Well woman exam: Code(s): Z01.419 - Encounter for gynecological examination (general) (routine) without abnormal findings Plan: Co testing at indicated this year. Counseled the patient about the recommended dietary allowance of 1200 mg of Calcium & 600 IU of vitamin D. Mammogram ordered , the patient is up-to-date with her screening colonoscopy . The patient was instructed to perform monthly self-breast exams and schedule annual exam in a year; all questions answered and the patient verbalized understanding. Orders: Orders MM screening mammo BI Today Z12.31 - Encounter for screening mammogram for malignant neoplasm of breast Coding Level of Care Code Est Pt Prev Care 40-64y(80303) Diagnoses Well woman exam Z01.419
[2023-04-21 13:33] VITALS: BP 130/80; BMI 40.6
== END 2023-04-21 14:13 | disposition home or self-care (01) ==
LOC: HO.HWS 13:30
PROVIDERS: PCP Internal Medicine; Visit Provider Obstetrics & Gynecology
DX: Z01.419 Encounter for gynecological examination (general) (routine) without abnormal findings (principal)
CPT/HCPCS: 99396

== ENCOUNTER → 2023-04-21 13:30 | Outpatient (BNVA) | payer OTHER, SELFPAY | PROVIDERS: PCP Internal Medicine; Visit Provider Obstetrics & Gynecology ==

== ENCOUNTER 2023-04-23 16:17 | Outpatient (REF) | payer OTHER, SELFPAY ==
--- NOTE | ~2023-04-23 | US_ITS ---
EXAMINATION: US RETROPERITONEAL LIMITED (RENAL ONLY) CLINICAL INFORMATION: Dorsalgia. COMPARISON: CT abdomen/pelvis 12/07/2022. TECHNIQUE: Real-time imaging of the kidneys. FINDINGS: RIGHT KIDNEY: 10.8 x 4.4 x 5 cm (SAG x AP x TRV). The kidney is normal in size, contour, and echogenicity. Renal cortical thickness is normal. No calculi or focal parenchymal lesions. Mild pelvic fullness. No calyectasis. LEFT KIDNEY: 10 x 4.7 x 4 cm (SAG x AP x TRV). The kidney is normal in size, contour, and echogenicity. Renal cortical thickness is normal. No renal calculi or hydronephrosis. Small parapelvic cyst versus focal calyectasis in the mid pole measuring 1 cm. US/US renal BI IMPRESSION: 1. No nephrolithiasis. 2. Mild right-sided pelvic fullness without calyectasis. 3. Small left-sided parapelvic cyst versus focal calyectasis.
== END 2023-04-23 16:18 | disposition home or self-care (01) ==
LOC: HO.US 16:17
PROVIDERS: PCP Internal Medicine; Visit Provider Nurse Practitioner Family
DX: M54.9 Dorsalgia, unspecified (principal); R10.9 Unspecified abdominal pain
CPT/HCPCS: 76775

== ENCOUNTER 2023-04-29 14:57 | Outpatient (AMB) | payer OTHER, SELFPAY ==
--- NOTE | 2023-04-29 11:19 | A.OFFVIS_ITS ---
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 04/29/2023--? She is a [place]inean speaking female. Certified transliterator was present during the visit. She had imaging and US in the past which were negative for kidney stones. She mentions having pain in the back. She also reports numbness and tingling sensation in the lower extremities. She states that she had seen [facility] in the past. She has a history of diabetes and neuropathy. She denies any urinary symptoms today in the office. She had renal US which was done on 04/23/2023, noted mild right sided pelvic fullness with no? calyectasis. She also had CAT scan which was done on 12/07/2022 which showed negative for hydronephrosis.? Evaluation today?UA-- leucocytes: negative; blood: negative. Plan:? I have discussed with the patient that the imaging both the CAT scan and US kidney were normal. I do not feel that the pain is related. We will refer her to Orthopedist for further evaluation. [facility] Medical History Asthma Asthma exacerbation Burning with urination Costovertebral angle tenderness Diabetes Disc degeneration, lumbar Dyslipidemia Essential hypertension History of COVID-19 Hospital discharge follow-up Morbid obesity Pleuritic pain Renal calculi Restrictive lung disease Rheumatic fever Rheumatoid arthritis Right-sided back pain Sacroiliitis Seropositive rheumatoid arthritis Spondylosis of cervical spine Spondylosis of lumbar spine TIA (transient ischemic attack) Vaginal [place] Surgical History History of cholecystectomy History of surgery on wrist Hx of colonoscopy (09/01/19) Family History Father Diabetes mellitus Myocardial infarction Hypertension CVD (cardiovascular disease) Mother Diabetes mellitus CVD (cardiovascular disease) Sister No problems noted. Son No problems noted. Son No problems noted. Son No problems noted. Daughter Thyroiditis Daughter No problems noted. Daughter No problems noted. Daughter No problems noted. Daughter No problems noted. Social History Housing: Apartment Alcohol intake: never Patient Tobacco Use Status: Never used Tobacco e-Cigarette/Vaping Use: Never Used Second Hand Smoke Exposure: No service: No Current occupational status: disabled Sexual orientation: Straight/Heterosexual Gender identity: Female Cognitive needs: No Hearing needs: No Vision needs: No Female Reproductive History Menstrual Age of Menarche: 11 Date of menopause: 01/22/10 Review of Systems Const All systems reviewed & are unremarkable except as noted in HPI and below Reports no additional complaints Eyes Reports no additional complaints ENT Reports no additional complaints Card Denies dyspnea Resp Denies cough and Denies dyspnea GI Reports no additional complaints Reports no additional complaints Musc Reports no additional complaints Skin/Breast Denies rash and Denies unusual bruising Neuro Reports no additional complaints Psych Reports no additional complaints Endo Reports no additional complaints Jared/Lymph Reports no additional complaints Aller/Immun Reports no additional complaints Physical Exam Const General: cooperative, healthy appearing and no acute distress Orientation/consciousness: patient oriented x3 HEENT Head: Yes normal to inspection, Yes normocephalic and Yes atraumatic Eyes Conjunctivae: conjunctivae normal Neck Neck: Yes normal visual inspection and Yes trachea midline Chest Chest palpation & inspection: normal inspection of the chest Resp Effort & Inspection: normal respiratory effort Cardio Rate: regular rate GI Inspection: Yes normal to inspection Palpation (GI): Soft to palpation Skin General skin exam: no rashes or lesions noted Neuro General: patient oriented x3 Extrem General: No edema Psych Appearance: grossly normal Results AMB Urinalysis, Automated UA Leukoctes 0 Sarah/uL Last Edit by Julianna Zepeda Justin on 04/29/23 16:06 UA Nitrite Negative Last Edit by Julianna Zepeda A on 04/29/23 16:06 UA Urobilinogen 0.2 mg/dL Last Edit by Julianna Zepeda A on 04/29/23 16:0 6 UA Protein 0 mg/dL Last Edit by Julianna Zepeda A on 04/29/23 16:06 UA pH 6.0 Last Edit by Julianna Zepeda A on 04/29/23 16:06 UA Blood 0 [place]/uL Last Edit by Julianna Zepeda [facility] on 04/29/23 16:06 UA Specific [place] 1.020 Last Edit by Julianna Zepeda [facility] on 04/29/23 16: 06 UA Ketone Negative Last Edit by Julianna Zepeda [facility] on 04/29/23 16:06 UA Bilirubin 0 mg/dL Last Edit by Julianna Zepeda [facility] on 04/29/23 16:06 UA Glucose 0 mg/dL Last Edit by Julianna Zepeda [facility] on 04/29/23 16:06 AMB Hemoglobin A1c AMB Hemoglobin A1c 7.0 % Last Edit by Johanna Cifuentes [facility] on 04/29/23 17:0 4 Results Reviewed Results Reviewed: Laboratory Last Values Urine pH (Auto) 6.0 04/29/23 16:05 Specific [place] (Auto) 1.020 04/29/23 16:05 Urine Protein (Auto) 0 mg/dL 04/29/23 16:05 Glucose (UA)(Auto) 0 mg/dL 04/29/23 16:05 Urine Ketones (Auto) Negative 04/29/23 16:05 Urine Blood (Auto) 0 [place]/uL 04/29/23 16:05 Urine Nitrite (Auto) Negative 04/29/23 16:05 Urine Bilirubin (Auto) 0 mg/dL 04/29/23 16:05 Urine Urobilinogen (Auto) 0.2 mg/dL 04/29/23 16:05 Leukocyte Esterase (Auto) 0 Sarah/uL 04/29/23 16:05 Renal US done on 04/23/2023-- FINDINGS: RIGHT KIDNEY: 10.8 x 4.4 x 5 cm (SAG x AP x TRV). The kidney is normal in size, contour, and echogenicity. Renal cortical thickness is normal. No calculi or focal parenchymal lesions. Mild pelvic fullness. No calyectasis. LEFT KIDNEY: 10 x 4.7 x 4 cm (SAG x AP x TRV). The kidney is normal in size, contour, and echogenicity. Renal cortical thickness is normal. No renal calculi or hydronephrosis. Small parapelvic cyst versus focal calyectasis in the mid pole measuring 1 cm. IMPRESSION: 1.? No nephrolithiasis. 2.? Mild right-sided pelvic fullness without calyectasis. 3.? Small left-sided parapelvic cyst versus focal calyectasis. CAT scan done on 12/07/2022-- FINDINGS: LUNG BASES: Again noted 6 mm triangularly shaped perifissural lymph node in the left lower lobe (3:32), unchanged. Redemonstration of mild bronchial wall thickening. No focal consolidation or pleural effusion. Bibasilar subsegmental atelectasis versus scarring noted.? LIVER, GALLBLADDER, AND BILIARY TREE: The liver is enlarged measuring 18.5 cm craniocaudally, and demonstrates decreased parenchymal attenuation most suggestive of hepatic steatosis. There is questionable mild nodularity of the contour which could be seen with cirrhosis. No discrete focal liver lesions are noted in this limited noncontrast examination. The gallbladder is nonvisualized, presumably surgically removed. No inflammatory changes in the gallbladder fossa to suspect acute cholecystitis. No biliary ductal dilatation. PANCREAS: Limited noncontrast examination, unremarkable.? SPLEEN: Limited noncontrast examination, unremarkable.? ADRENAL GLANDS: No adrenal nodule.? KIDNEYS AND URETERS: Limited noncontrast examination. No nephrolithiasis or hydronephrosis. No perinephric fat stranding.? BLADDER: Underdistended limiting assessment wall thickening. No focal abnormality. No intraluminal calculi. No perivesical fat stranding.? GASTROINTESTINAL TRACT: No evidence of bowel obstruction. Normal appendix. No significant colonic wall thickening or pericolonic inflammatory changes to suspect acute colitis or diverticulitis. Moderate degree of colonic and rectal stool burden.? ABDOMINAL WALL: Small fat-containing umbilical hernia.? LYMPH NODES: No pathologically enlarged lymph nodes. VASCULAR: Limited noncontrast examination. The abdominal aorta is of normal diameter. PELVIC VISCERA: No discrete pelvic mass.? OSSEOUS STRUCTURES: No acute or aggressive appearing osseous abnormalities. Degenerative changes of the spine. Again noted increased sclerosis with subchondral cystic changes in the pubic symphysis, suggesting osteitis pubis or degenerative changes, slightly increased since 2019. IMPRESSION: 1.? Hepatomegaly and hepatic steatosis. Questionable mild nodularity of the liver contour which could be seen with cirrhosis. 2.? Moderate degree of colonic and rectal stool burden. 3.? No evidence of bowel obstruction. Normal appendix. 4.? Increased sclerosis and subchondral cystic changes in the pubic symphysis suggesting osteitis? pubis or degenerative changes, slightly increased since 2019. Correlate with point tenderness. Assessment & Plan Assessment & Plan (1) Back pain: Code(s): M54.9 - Dorsalgia, unspecified Qualifiers: Back pain laterality: right Back pain location: thoracic back pain Chronicity: acute Qualified Code(s): M54.6 - Pain in thoracic spine Plan I have discussed with the patient that the imaging both the CAT scan and US kidney were normal. I do not feel that the pain is related. We will refer her to Orthopedist for further evaluation. Orders: Orders AMB Urinalysis Automated 04/29/23 Z13.9 - Encounter for screening, unspecified Referrals Orthopedics Referral R20.0 - Anesthesia of skin, R20.2 - Paresthesia of skin, M54.9 - Dorsalgia, unspecified Patient Instructions: The patient had an opportunity to ask questions regarding treatment plan. All questions were answered. Imaging, Laboratory studies and physical exam results were discussed and reviewed in detail. No major barriers to understanding were identified. The patient expressed understanding and agreement with the above treatment plan. The patient is aware they should contact our office by phone for worsening of t heir current condition or the appearance of new symptoms. Compliance is encouraged with any medications and followup testing that is ordered. It is a privilege to be allowed the opportunity to participate in the urologic care of your patient. If you have any questions or concerns regarding treatment for the above conditions please do not hesitate to contact me. The office telephone contact is [phone]. This note is constructed in part using voice recognition software. While every effort has been made to ensure accuracy lay out former errors may have been included. Yours sincerely, Danielle Bhagat MD Coding Level of Care Code New Pt Level 3 (16749) Diagnoses Back pain M54.6 Back pain laterality: right Back pain location: thoracic back pain Chronicity: acute
== END 2023-04-29 16:05 | disposition home or self-care (01) ==
PROVIDERS: PCP Internal Medicine; Visit Provider Urology
DX: M54.6 Pain in thoracic spine (principal)
CPT/HCPCS: 99203

== ENCOUNTER → 2023-04-29 14:57 | Outpatient (BNVA) | payer OTHER, SELFPAY | PROVIDERS: PCP Internal Medicine; Visit Provider Urology | DX: M54.6 Pain in thoracic spine (principal) | CPT/HCPCS: 99202 ==

== ENCOUNTER 2023-04-29 16:51 | Outpatient (AMB) | payer OTHER, SELFPAY ==
[2023-04-29 16:53] VITALS: BP 136/88; BMI 40.8
--- NOTE | 2023-04-29 16:53 | A.OFFPC_ITS ---
Vital Signs 04/29/23 16:53 Height 5 ft 1 in Weight 216 lb BMI 40.8 BP 136/88 Blood Pressure Location Lt brachial Position Sitting Intake Visit Reasons: DM Intake Note: Patient here for a follow up on DM Die Equipment Operator Required: No Accompanied by: Self / Same As Patient Allergies cyclobenzaprine [From Flexeril] Allergy (Intermediate, Verified 04/29/23 17:07) Dizziness orphenadrine [From Norflex] Allergy (Intermediate, Verified 04/29/23 17:07) Dizziness sarilumab [From Kevzara] Allergy (Intermediate, Verified 04/29/23 17:07) Rash Medication List - Last Reconciled 04/29/23 by Aniyah Friend MD abatacept (Orencia ClickJect) 125 mg subcut QWEEK albuterol sulfate 90 mcg/actuation 2 inhalations PO Q4H PRN blood sugar diagnostic (FreeStyle Lite Strips) Use 1 test strip once a day blood-glucose meter (FreeStyle Lite Meter kit) E11.9 ONCE A DAY [cock up splint wear on the right wrist at night ] docusate sodium (Col-Rite) 100 mg PO BID fluticasone propion-salmeterol 250-50 mcg/dose (Wixela Inhub) 1 inh inhalation BID 30 days ketorolac 10 mg PO Q6H 5 days lancets FREESTYLE LITE E11.9 ONCE A DAY lancets (FreeStyle Lancets) Use 1 lancet once a day as needed lidocaine 5% (Lidoderm) 1 patch topical DAILY linagliptin (Tradjenta) 5 mg PO DAILY 90 days lisinopril 5 mg PO DAILY 90 days magnesium hydroxide (Milk of Magnesia) 5 mL PO BEDTIME PRN metformin 1,000 mg PO BID 90 days tizanidine 2 mg PO BID PRN 30 days Tobacco use date assessed: 10/16/22 Dental Screening Dental Screen Date: 04/29/23 Did you have a dental visit in the last 12 months?: No Did you have a dental problem in the last 6 months where you did not have access to dental care?: No Was dental information given to patient?: Patient has dentist HPI HPI Comments History of Present Illness Details This is a 63-year-old female with diabetes mellitus type 2, hypertension, dyslipidemia and rheumatoid arthritis that comes today for follow- up on her conditions. A1c within goal. Blood pressure stable. Lipid panel will be order and her LDL goal should be less than 70. Rheumatoid arthritis has been stable with medications and this is follow with rheumatology. No chest pain or shortness of breath. [facility] Medical History (Updated 04/29/23 @ 17:12 by Aniyah Friend MD) Asthma Asthma exacerbation Burning with urination Costovertebral angle tenderness Diabetes Disc degeneration, lumbar Dyslipidemia Essential hypertension History of COVID-19 Hospital discharge follow-up Morbid obesity Pleuritic pain Renal calculi Restrictive lung disease Rheumatoid arthritis Right-sided back pain Sacroiliitis Seropositive rheumatoid arthritis Spondylosis of cervical spine Spondylosis of lumbar spine TIA (transient ischemic attack) Vaginal [place] Surgical History History of cholecystectomy History of surgery on wrist Hx of colonoscopy (09/01/19) Family History Father Diabetes mellitus Myocardial infarction Hypertension CVD (cardiovascular disease) Mother Diabetes mellitus CVD (cardiovascular disease) Sister No problems noted. Son No problems noted. Son No problems noted. Son No problems noted. Daughter Thyroiditis Daughter No problems noted. Daughter No problems noted. Daughter No problems noted. Daughter No problems noted. Social History Housing: Apartment Alcohol intake: never Patient Tobacco Use Status: Never used Tobacco e-Cigarette/Vaping Use: Never Used Second Hand Smoke Exposure: No service: No Current occupational status: disabled Sexual orientation: Straight/Heterosexual Gender identity: Female Cognitive needs: No Hearing needs: No Vision needs: No Female Reproductive History Menstrual Age of Menarche: 11 Date of menopause: 01/22/10 Questionnaire PHQ-9 Over the last 2 weeks, how often have you been bothered by any of the following problems? 1. Little interest or pleasure in doing things: not at all 2. Feeling down, depressed, or hopeless: not at all 3. Trouble falling or staying asleep, or sleeping too much: not at all 4. Feeling tired or having little energy: not at all 5. Poor appetite or overeating: not at all 6. Feeling bad about yourself - or that you are a failure or have let yourself or your family down: not at all 7. Trouble concentrating on things, such as reading the newspaper or watching television: not at all 8. Moving or speaking so slowly that other people could have noticed. Or the opposite - being so fidgety or restless that you have been moving around a lot more than usual: not at all 9. Thoughts that you would be better off or of hurting yourself in some way: not at all Total score: 0 Depression Screening Interpretation: Negative 07862 - PHQ-9 Billing: Yes Source: Developed by Drs. Spencer Gonzalez, Anamaria Bartlett, Clayton Azar and colleagues, with an educational anna from [employer]. Thrive Questionnaire Date Thrive assessed: 10/16/22 AUDIT C Alcohol Use Questionnaire (AUDIT-C) 1. How often do you have a drink containing alcohol?: Never Total Score: 0 SONA-7 AMB Questionnaire SONA-7 Date SONA - 7 assessed: 04/29/23 Feeling nervous, anxious, or on edge: 0 = Not at all Not being able to stop or control worryin = Not at all Worrying too much about different things: 0 = Not at all Trouble relaxin = Not at all Being so restless that it is hard to sit still: 0 = Not at all Becoming easily annoyed or irritable: 0 = Not at all Feeling afraid as if something awful might happen: 0 = Not at all Total SONA-7 score (0-4 normal; 5-9 mild; 10-14 moderate; 15-21 severe): 0 Source: Developed by Drs. Spencer Gonzalez, Anamaria Bartlett, Clayton Azar and colleagues, with an educational anna from [employer]. SONA-7 Assessment Billing SONA-7 Assessment Tool: SONA-7 Assessment 30732 Review of Systems Const All systems reviewed & are unremarkable except as noted in HPI and below Eyes Reports no additional complaints, Denies change in vision and Denies other visu al disturbances Card Denies chest pain at rest, Denies chest pain with activity, Denies edema, Denies irregular heart rhythm, Denies claudication, Denies dyspnea, Denies dyspnea on exertion, Denies orthopnea, Denies paroxysmal nocturnal dyspnea and Denies slow heart rate Resp Denies cough, Denies dyspnea and Denies dyspnea on exertion GI Denies abdominal pain, Denies change in bowel habits, Denies excessive flatus, Denies nausea and Denies vomiting Denies urinary incontinence, Denies urinary hesitancy and Denies urinary urgency Musc Denies abnormal gait, Denies atrophy, Denies deformity and Denies limited range of motion Skin/Breast Denies bleeding lesions, Denies changing lesions and Denies rash Neuro Denies abnormal gait and Denies lack of coordination Physical exam (Primary Care) Vital Signs: Last Vital Signs BP 136/88 04/29/23 16:53 BMI result Body Mass Index 40.8 Tobacco/Smoking Status: Tobacco use Status Tobacco use date assessed 10/16/22 04/29/23 17:01 Patient Tobacco Use Status Never used Tobacco 04/29/23 17:01 e-Cigarette/Vaping Use Never Used 04/29/23 17:01 PHQ-9: PHQ-9 Score PHQ-9: Total score 0 04/29/23 17:09 Depression Screening Interpretation: Negative Thrive Assessment: Date of Thrive Assessment Date Thrive assessed 10/16/22 04/29/23 17:01 Eyes General: appearance normal, both eyes and all related structures Eyelids: Yes eyelids normal Conjunctivae: conjunctivae normal Neck Neck: Yes normal visual inspection and Yes supple Resp Effort & Inspection: normal respiratory effort Auscultation: clear to auscultation bilaterally Cardio Jugular venous distension: no JVD Rate: regular rate Rhythm: regular rhythm Heart sounds: S1 normal heart sound present and S2 normal heart sound present Extrem General: Yes full ROM Results AMB Urinalysis, Automated UA Leukoctes 0 Sarah/uL Last Edit by JAMES Chin on 04/29/23 16:06 UA Nitrite Negative Last Edit by JAMES Chin on 04/29/23 16:06 UA Urobilinogen 0.2 mg/dL Last Edit by JAMES Chin on 04/29/23 16:0 6 UA Protein 0 mg/dL Last Edit by JAMES Chin on 04/29/23 16:06 UA pH 6.0 Last Edit by JAMES Chin on 04/29/23 16:06 UA Blood 0 [place]/uL Last Edit by JAMES Chin on 04/29/23 16:06 UA Specific [place] 1.020 Last Edit by Julianna Zepeda, RMA on 04/29/23 16: 06 UA Ketone Negative Last Edit by Julianna Zepeda, RMA on 04/29/23 16:06 UA Bilirubin 0 mg/dL Last Edit by Julianna Zepeda, RMA on 04/29/23 16:06 UA Glucose 0 mg/dL Last Edit by Julianna Zepeda, RMA on 04/29/23 16:06 AMB Hemoglobin A1c AMB Hemoglobin A1c 7.0 % Last Edit by Johanna Cifuentes, RMA on 04/29/23 17:0 4 Results Reviewed Results Reviewed: Laboratory Last Values Hgb A1c (Clinic) 7.0 % (4.0-6.0) H 04/29/23 17:02 Assessment and Plan Assessment & Plan (1) Seropositive rheumatoid arthritis: Comment: Humira:08/29 - 03/30 -active disease on exam Enbrel:04/29-08/30 - active disease on exam Xelelba:08/30-12/29- active disease on exam Kevzara: 01/2021- stopped due to rash [place]ren[place]: 01/2021 - present Code(s): M05.9 - Rheumatoid arthritis with rheumatoid factor, unspecified Plan: Continue Orencia. Follow-up with rheumatology. (2) Diabetes: Code(s): E11.9 - Type 2 diabetes mellitus without complications Qualifiers: Diabetes mellitus type: type 2 Diabetes mellitus termite treater insulin use: without fci use Diabetes mellitus complication status: with hyperglycemia Qualified Code(s): E11.65 - Type 2 diabetes mellitus with hyperglycemia Plan: Continue metformin. A1c goal is equal or less than 7%. (3) Essential hypertension: Code(s): I10 - Essential (primary) hypertension Plan: Continue lisinopril. Blood pressure goal is equal or less than 130/80. (4) Dyslipidemia: Code(s): E78.5 - Hyperlipidemia, unspecified Plan: Continue statins. Repeat lipid panel. LDL goal is less than 70 Orders: Orders Comprehensive [place]. Panel Fast 04/29/23 E11.65 - Type 2 diabetes mellitus with hyperglycemia Lipid Panel 04/29/23 E78.5 - Hyperlipidemia, unspecified Vitamin D 25-OH Total 04/29/23 E55.9 - Vitamin D deficiency, unspecified Microalbumin, Random (w Creat) 04/29/23 E11.9 - Type 2 diabetes mellitus without complications XR thoracic spine 2V 04/29/23 M54.6 - Pain in thoracic spine AMB Hemoglobin A1c 04/29/23 E11.9 - Type 2 diabetes mellitus without complications Medications: Discontinued linagliptin (Tradjenta) Discontinued Reason: Patient Completed Course 5 mg PO DAILY 90 days 90 tabs 1RF ketorolac Discontinued Reason: Patient Completed Course 10 mg PO Q6H 5 days 20 tabs 0RF pain M54.9 - Dorsalgia, unspecified, R10.9 - Unspecified abdominal pain Coding Level of Care Code Est Pt Level 4 (99319) Diagnoses Seropositive rheumatoid arthritis M05.9 Diabetes E11.65 Diabetes mellitus type: type 2 Diabetes mellitus fci insulin use: without termite treater use Diabetes mellitus complication status: with hyperglycemia Essential hypertension I10 Dyslipidemia E78.5 Additional Codes SONA-7 Assessment Billing - SONA-7 Assessment Tool: SONA-7 Assessment 52663 ([id number]) Time Spent (min) 22
== END 2023-04-29 17:15 | disposition home or self-care (01) ==
PROVIDERS: PCP Internal Medicine; Visit Provider Internal Medicine
DX: M05.9 Rheumatoid arthritis with rheumatoid factor, unspecified (principal); E11.65 Type 2 diabetes mellitus with hyperglycemia; I10 Essential (primary) hypertension; E78.5 Hyperlipidemia, unspecified
CPT/HCPCS: 83036; 99214

== ENCOUNTER 2023-05-19 14:05 | Outpatient (REF) | payer OTHER, SELFPAY ==
--- NOTE | ~2023-05-19 | MM_ITS ---
EXAMINATION: MM SCREENING DIGITAL BREAST TOMOSYNTHESIS, BILATERAL CLINICAL INFORMATION: Screening. Asymptomatic. The lifetime risk of breast cancer based on the Tyrer-Cuzick Model is 4%. COMPARISON: Mammography: This study is compared with prior exams dating back to 2019. TECHNIQUE: Digital breast tomosynthesis is performed in both the craniocaudal and mediolateral oblique views along with computer-aided detection (CAD). Synthesized 2D images are generated from the tomosynthesis. FINDINGS: There are scattered areas of fibroglandular density (ACR BI-RADS breast composition Category b). There are no significant masses, abnormal calcifications, or other abnormalities. MM/MM tomosynthesis screening BI IMPRESSION: No mammographic evidence of malignancy. ASSESSMENT: BI-RADS BI-RADS 1 - Negative RECOMMENDATION: Routine annual mammography screening. 1 year F/U This examination should not preclude the clinical evaluation of a suspicious palpable abnormality. This patient's information was entered into a reminder system with a target due date for their next mammogram.
== END 2023-05-19 14:06 | disposition home or self-care (01) ==
LOC: HO.MAMMO 14:05
PROVIDERS: PCP Internal Medicine; Referring Provider Obstetrics & Gynecology; Visit Provider Internal Medicine
DX: Z12.31 Encounter for screening mammogram for malignant neoplasm of breast (principal)
CPT/HCPCS: 77063; 77067

== ENCOUNTER → 2023-05-19 15:15 | Outpatient (BNV) | payer OTHER, SELFPAY | PROVIDERS: PCP Internal Medicine; Referring Provider Obstetrics & Gynecology; Visit Provider Radiology Diagnostic Radiology | DX: Z12.31 Encounter for screening mammogram for malignant neoplasm of breast (principal) | CPT/HCPCS: 77063; 77067 ==

== ENCOUNTER 2023-05-25 13:23 | Outpatient (AMB) | payer OTHER, SELFPAY ==
[2023-05-25 13:43] VITALS: BP 110/82; PULSE 73; O2SAT 98; BMI 40.8
--- NOTE | 2023-05-25 13:43 | MHC.OFFVIS ---
Intake Vital Signs 05/25/23 13:43 Height 5 ft 1 in Weight 216 lb BMI 40.8 BP 110/82 Blood Pressure Location Lt brachial Position Sitting Pulse 73 Pulse Source Pulse Oximeter Pulse Oximetry (%) 98 Oxygen Delivery Method Room Air Intake Visit Reasons: Pulm Nodule Intake Note: pt is here for follow up and states she has little bit of pain in the mid back, she does have a cough, pt states that she is getting a feeling in her throat when using wixela and prefers the mist from flovent. Licensed Practical Nurse Clinic Nurse Required: Yes Licensed Practical Nurse Clinic Nurse Name: [id number] britta Allergies cyclobenzaprine [From Flexeril] Allergy (Intermediate, Verified 05/25/23 14:00) Dizziness orphenadrine [From Norflex] Allergy (Intermediate, Verified 05/25/23 14:00) Dizziness sarilumab [From Kevzara] Allergy (Intermediate, Verified 05/25/23 14:00) Rash Medication List - Last Reconciled 05/25/23 by Deena Grande MD abatacept (Orencia ClickJect) 125 mg subcut QWEEK albuterol sulfate 90 mcg/actuation 2 inhalations PO Q4H PRN blood sugar diagnostic (FreeStyle Lite Strips) Use 1 test strip once a day blood-glucose meter (FreeStyle Lite Meter kit) E11.9 ONCE A DAY [cock up splint wear on the right wrist at night ] docusate sodium (Col-Rite) 100 mg PO BID fluticasone propion-salmeterol 250-50 mcg/dose (Wixela Inhub) 1 inh inhalation BID 30 days fluticasone propionate 220 mcg/actuation 2 puffs inhalation BID lancets FREESTYLE LITE E11.9 ONCE A DAY lancets (FreeStyle Lancets) Use 1 lancet once a day as needed lidocaine 5% (Lidoderm) 1 patch topical DAILY lisinopril 5 mg PO DAILY 90 days magnesium hydroxide (Milk of Magnesia) 5 mL PO BEDTIME PRN metformin 1,000 mg PO BID 90 days tizanidine 2 mg PO BID PRN Do you need a note to return to daycare/school/sports/work: No HPI Pulm Nodule HPI Details 63 years old Citizen Of [place]-speaking female markedly obese, but 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 patient has been using Wixela 250-50 1 inhalation b.i.d., but claims that the Powder irritates her throat. she would rather go back to use Flovent HFA. continues to have intermittent cough especially, on taking deep breaths but denies any wheezing. she did have a CT scan of the chest in February which showed multiple small pulmonary nodules unchang ed from before including is 6 mm nodule which also. has not changed . she is nonsmoker and. relatively low risk. She has multiple comorbidities including diabetes mellitus, essential hypertension, dyslipidemia, seropositive rheumatoid arthritis, and spinal spondylosis with chronic back pain. [facility] Medical History Asthma Asthma exacerbation Burning with urination Costovertebral angle tenderness Diabetes Disc degeneration, lumbar Dyslipidemia Essential hypertension History of COVID-19 Hospital discharge follow-up Morbid obesity Pleuritic pain Renal calculi Restrictive lung disease Rheumatoid arthritis Right-sided back pain Sacroiliitis Seropositive rheumatoid arthritis Spondylosis of cervical spine Spondylosis of lumbar spine TIA (transient ischemic attack) Vaginal [place] Surgical History History of cholecystectomy History of surgery on wrist Hx of colonoscopy (09/01/19) Family History Father Diabetes mellitus Myocardial infarction Hypertension CVD (cardiovascular disease) Mother Diabetes mellitus CVD (cardiovascular disease) Sister No problems noted. Son No problems noted. Son No problems noted. Son No problems noted. Daughter Thyroiditis Daughter No problems noted. Daughter No problems noted. Daughter No problems noted. Daughter No problems noted. Social History Housing: Apartment Alcohol intake: never Patient Tobacco Use Status: Never used Tobacco e-Cigarette/Vaping Use: Never Used Second Hand Smoke Exposure: No service: No Current occupational status: disabled Sexual orientation: Straight/Heterosexual Gender identity: Female Cognitive needs: No Hearing needs: No Vision needs: No Female Reproductive History Menstrual Age of Menarche: 11 Date of menopause: 01/22/10 Review of Systems Const All systems reviewed & are unremarkable except as noted in HPI and below Eyes Reports no additional complaints ENT Reports nasal congestion (Mild off and on) Card Denies chest pain, Denies irregular heart rhythm and Denies leg edema Resp Reports as per HPI GI Reports constipation Reports other (Mild burning with urination) Musc Reports no additional complaints Skin/Breast Reports system reviewed and no additional complaints, except as documented Neuro Reports no additional complaints Psych Reports no additional complaints Physical Exam Vital Signs: Last Vital Signs Pulse 73 05/25/23 13:43 BP 110/82 05/25/23 13:43 Pulse Ox 98 05/25/23 13:43 Oxygen Delivery Method Room Air 05/25/23 13:43 BMI result Body Mass Index 40.8 Const General: comfortable, no acute distress, alert and awake Orientation/consciousness: patient oriented x3 HEENT Head: Yes normal to inspection General nose exam: No nasal polyps present and No nasal discharge present Face and sinus: Yes sinuses nontender Mouth: oropharynx normal Throat: Yes posterior oropharynx normal Eyes General: appearance normal, both eyes and all related structures Neck Neck: Yes normal visual inspection, Yes no lymphadenopathy, Yes trachea midline and Yes no JVD Thyroid: Thyroid normal Chest Chest palpation & inspection: normal inspection of the chest, normal palpation of entire chest wall and no tenderness Resp Other: Percussion note is resonant, breath sounds equal on both sides, moderately distant ,no audible wheezes , rhonchi or Creps. DEEP BREATHING EFFORTS PRODUCE COUGH. Cardio Palpation: normal PMI Rate: regular rate Rhythm: regular rhythm Heart sounds: no gallops and no murmurs Peripheral pulses: Peripheral pulses 2+ throughout GI Palpation (GI): Soft to palpation, nontender, No hepatosplenomegaly present and no masses Auscultation: normal bowel sounds Back/Spine/Pelvis Thoracic/Lumbar Spine: thoracic and lumbar spine normal to inspection, thoraco-lumbar ROM limited, thoraco-lumbar spasm and thoracic spinal tenderness Skin General skin exam: no rashes or lesions noted Neuro General: patient oriented x3 and no focal motor deficits Cranial nerves: Yes CN's II-XII intact bilaterally Extrem General: Yes normal to inspection, Yes no clubbing, cyanosis or edema and Yes no calf tenderness Psych Appearance: grossly normal Speech and movement: Normal speech and movement present Results Reviewed Results Reviewed: CT Scan of Chest on 02/17 IMPRESSION: Stable 6 mm right pulmonary nodule adjacent to the minor fissure probably representing a subpleural lymph node. Question mild interstitial lung disease. ? Assessment & Plan Assessment & Plan (1) Morbid obesity: Comment: BMI 40. 8 She is encouraged to join weight management program, but has not been able to join any weight management program due to insurance issues, and language problem. Code(s): E66.01 - Morbid (severe) obesity due to excess calories (2) Restrictive lung disease: Comment: As per PFT in 2019 she has Moderate degree of restrictive lung disease most likely related to her obesity This will be helped by weight reduction. Code(s): J98.4 - Other disorders of lung (3) Asthma: Comment: ASTHMA/ REACTIVE AIRWAYS , CAUSING COUGH . [place] : CHANGE WIXELA TO FLOVENT-220 2 PUFFS B.I.D.. RE-CHECK IN 4 MONTHS Code(s): J45.909 - Unspecified asthma, uncomplicated (4) Cough: Comment: Her main concern is ongoing cough and feeling of congestion in her upper chest for the last few months. I think cough is secondary to reactive airways, [place] : FOR INCREASED COUGH WHICH MAY BE DUE TO ACUTE BRONCHITIS, I WILL ORDER Z-KADEEM 1 TIME. CONTINUE< Flovent - 220 2 PUFFS bid Code(s): R05.9 - Cough, unspecified Coding Level of Care Code Est Pt Level 3 (61608) Diagnoses Morbid obesity E66.01 Restrictive lung disease J98.4 Asthma J45.909 Cough R05.9
== END 2023-05-25 13:59 | disposition home or self-care (01) ==
PROVIDERS: PCP Internal Medicine; Visit Provider Internal Medicine
DX: E66.01 Morbid (severe) obesity due to excess calories (principal); J98.4 Other disorders of lung; J45.909 Unspecified asthma, uncomplicated; R05.9 Cough, unspecified
CPT/HCPCS: 99213

== ENCOUNTER → 2023-05-25 13:23 | Outpatient (BNVA) | payer OTHER, SELFPAY | PROVIDERS: PCP Internal Medicine; Visit Provider Internal Medicine | DX: J98.4 Other disorders of lung (principal); J45.909 Unspecified asthma, uncomplicated; E66.01 Morbid (severe) obesity due to excess calories; Z68.41 Body mass index [BMI] 40.0-44.9, adult | CPT/HCPCS: 99212 ==

== ENCOUNTER 2023-06-01 13:39 | Outpatient (AMB) | payer OTHER, SELFPAY ==
[2023-06-01 13:48] VITALS: BP 140/82; PULSE 76; TEMP 36.4; O2SAT 98; BMI 41.5
--- NOTE | 2023-06-01 13:48 | MHC.OFFVIS ---
Intake Vital Signs 06/01/23 13:48 Height 5 ft 1 in Weight 219 lb 12.814 oz BMI 41.5 BP 140/82 H Blood Pressure Location Rt brachial Position Sitting Pulse 76 Pulse Source Pulse Oximeter Temp 97.6 F Pulse Oximetry (%) 98 Intake Visit Reasons: rheumatoid arthritis Intake Note: Pt seen today for RA follow up. C/o back pain especially in the lower back Grinder Set Up Operator Universal Required: Yes Grinder Set Up Operator Universal Name: Abhay Gallegos Accompanied by: Self / Same As Patient Allergies cyclobenzaprine [From Flexeril] Allergy (Intermediate, Verified 06/01/23 13:54) Dizziness orphenadrine [From Norflex] Allergy (Intermediate, Verified 06/01/23 13:54) Dizziness sarilumab [From Kevzara] Allergy (Intermediate, Verified 06/01/23 13:54) Rash Medication List - Last Reconciled 06/01/23 by Ely Coley MD abatacept (Orencia ClickJect) 125 mg subcut QWEEK albuterol sulfate 90 mcg/actuation 2 inhalations PO Q4H PRN blood sugar diagnostic (FreeStyle Lite Strips) Use 1 test strip once a day blood-glucose meter (FreeStyle Lite Meter kit) E11.9 ONCE A DAY [cock up splint wear on the right wrist at night ] docusate sodium (Col-Rite) 100 mg PO BID fluticasone propion-salmeterol 250-50 mcg/dose (Wixela Inhub) 1 inh inhalation BID 30 days fluticasone propionate 220 mcg/actuation 2 puffs inhalation BID lancets FREESTYLE LITE E11.9 ONCE A DAY lancets (FreeStyle Lancets) Use 1 lancet once a day as needed lidocaine 5% (Lidoderm) 1 patch topical DAILY lisinopril 5 mg PO DAILY 90 days magnesium hydroxide (Milk of Magnesia) 5 mL PO BEDTIME PRN metformin 1,000 mg PO BID 90 days tizanidine 2 mg PO BID PRN HPI HPI Comments History of Present Illness Details 63yoF presents for follow-up of Seropositive Rheumatoid Arthritis (RF++ CCP++). Last seen 03/02 by Ludivina Julian Patient continues on Orencia which she is tolerating without issue. She states that her rheumatoid arthritis has been stable. She denies joint pain or synovitis in her hands or feet. Majority of her problem is in mid lower back pain, intermittently radiates to her right lower extremity. Follows up with Pain Management for chronic back pain She follows up with Pulmonary for pulmonary nodules. [facility] Medical History Asthma Asthma exacerbation Burning with urination Costovertebral angle tenderness Diabetes Disc degeneration, lumbar Dyslipidemia Essential hypertension History of COVID-19 Hospital discharge follow-up Morbid obesity Pleuritic pain Renal calculi Restrictive lung disease Rheumatic fever Rheumatoid arthritis Right-sided back pain Sacroiliitis Seropositive rheumatoid arthritis Spondylosis of cervical spine Spondylosis of lumbar spine TIA (transient ischemic attack) Vaginal modesta Surgical History History of cholecystectomy History of surgery on wrist Hx of colonoscopy (09/01/19) Family History Father Diabetes mellitus Myocardial infarction Hypertension CVD (cardiovascular disease) Mother Diabetes mellitus CVD (cardiovascular disease) Sister No problems noted. Son No problems noted. Son No problems noted. Son No problems noted. Daughter Thyroiditis Daughter No problems noted. Daughter No problems noted. Daughter No problems noted. Daughter No problems noted. Social History Housing: Apartment Alcohol intake: never Patient Tobacco Use Status: Never used Tobacco e-Cigarette/Vaping Use: Never Used Second Hand Smoke Exposure: No service: No Current occupational status: disabled Sexual orientation: Straight/Heterosexual Gender identity: Female Cognitive needs: No Hearing needs: No Vision needs: No Female Reproductive History Menstrual Age of Menarche: 11 Date of menopause: 01/22/10 Review of Systems [facility] Reports back pain Physical Exam Vital Signs: Last Vital Signs Temp 97.6 F 06/01/23 13:48 Pulse 76 06/01/23 13:48 BP 140/82 H 06/01/23 13:48 Pulse Ox 98 06/01/23 13:48 BMI result Body Mass Index 41.5 Const General: cooperative, healthy appearing and comfortable Nutritional Appearance: obese morbidly obese Orientation/consciousness: patient oriented x3 Limitations: no limitations HEENT Head: Yes normocephalic and Yes atraumatic Mouth: moist mucous membranes Resp Effort & Inspection: normal respiratory effort and able to speak in complete sentences Neuro General: patient oriented x3 Extrem Other: Right wrist with significantly limited flexion and extension. (chronic) Few flexion contractures of right hand fingers Few tender MCPs on the right hand Left hand with no swollen or tender joints Right foot with large bunion and fibular deviation of some toes Negative MTP squeeze test bilaterally Results Reviewed Results Reviewed: Laboratory Tests 10/16/22 02/17/23 02/17/23 13:25 06:48 06:48 WBC 8.0 02/17/23 06:48 Date of Service: 02/17/23 Procedure(s): CT chest w IV con Accession Number(s): [id number] EXAMINATION: CT CHEST WITH CONTRAST CLINICAL INFORMATION: Other nonspecific abnormal finding of lung field? COMPARISON: Previous chest CT November 2022 TECHNIQUE: Multidetector volumetric CT imaging of the chest was obtained after the administration of 50 mL of Omnipaque 350 intravenous contrast without immediate adverse reactions. Axial MIP volume rendering provided. Sagittal and coronal reformatted images were obtained. This CT examination was performed using dose optimization techniques as appropriate, variously including the following: *Automated exposure control *Adjustment of mA and/or kV according to patient size (this includes techniques or standardized protocols for targeted exams where dose is matched to indication/reason for exam; i.e. extremities or head) *Use of iterative reconstruction technique DLP: 187 mGy-cm FINDINGS: LUNGS: 6 mm right peripheral or subpleural nodule adjacent to the minor fissure axial image 81 series 5 is stable.? There are increased peripheral reticular markings seen, greatest in the right middle lobe and the dependent bilateral lower lobes. Similar to November 2022 exam and questionable mild interstitial lung disease. There are scattered small areas of increased attenuation in the lungs. This is seen both centrally and peripherally and may have a peribronchial distribution. Current is questionable for airways disease versus changes related to interstitial lung disease. Clinical correlation recommended. MEDIASTINUM: Small mediastinal and bilateral hilar lymph nodes. No enlarged lymph nodes. Upper normal heart size. No pericardial effusion. Normal caliber thoracic aorta.? PLEURA: There is no pleural effusion. No pleural mass or thickening.? AXILLA: Small bilateral axillary lymph nodes. No enlarged axillary lymph nodes or chest wall mass.? UPPER ABDOMEN: Fatty liver.? OSSEOUS STRUCTURES: Degenerative changes of the spine. CT/CT chest w IV con IMPRESSION: Stable 6 mm right pulmonary nodule adjacent to the minor fissure probably representing a subpleural lymph node. Question mild interstitial lung disease. Date of Service: 06/08/22 Procedure(s): XR hand LT min 3V Accession Number(s): [id number] EXAMINATION: XR BILATERAL HANDS XR BILATERAL FEET CLINICAL INFORMATION: Pain in the joints.? COMPARISON: None.? TECHNIQUE: 3 views of each foot and 3 views of each hand.? FINDINGS: LEFT FOOT: There is loss of MTP joint space in the 2nd through 5th digits and loss of PIP joints as well. No bony erosive or periarticular spurring. There is a small calcaneal heel enthesophyte.? The ankle mortise and subtalar joints are normal. The soft tissues are normal. RIGHT FOOT: There is moderate hallux valgus deformity at the 1st MTP joint. Mild subluxation is seen at the MTP joints of 2nd through 5th digits. No bony erosive changes. Mild loss of PIP and DIP joint spaces is seen. The ankle mortise and subtalar joints are normal. There is a small calcaneal heel enthesophyte. RIGHT HAND: There is loss of PIP and DIP joint spaces. No periarticular spurring. The MTP joint space is preserved. There is fusion of some of the carpal bones. There is a negative ulnar variance. No acute fracture is seen. LEFT HAND: There is severe loss of the 2nd MCP joint space and mild loss of PIP and DIP joint spaces. There is mild negative ulnar variance with periarticular spurring of the radioulnar joint. No acute fracture is seen.? XR/XR hand LT min 3V IMPRESSION: Degenerative osteoarthritic changes of the PIP and DIP joints in all digits of both hands. ? There is severe loss of the 2nd MCP joint space in the left hand. There is periarticular spurring of the radioulnar joint with negative ulnar variance in both hands. No acute fracture is seen. ? There is subluxation of the 2nd through 5th MTP joints and moderate hallux valgus deformity of the 1st MTP joint, suggestive of degenerative arthritis. Involvement of PIP and DIP joint space of the right foot is seen. Mild degenerative changes of the MTP, PIP and DIP joint spaces of the left foot are seen as well. ? There are bilateral small calcaneal heel enthesophytes. Assessment & Plan Assessment & Plan (1) Seropositive rheumatoid arthritis: Comment: ++RF+++CCP dx in her 40s Humira:08/29 - 03/30 -active disease on exam Enbrel:04/29-08/30 - active disease on exam Xelelba:08/30-12/29- active disease on exam Kevzara: 01/2021- stopped due to rash Orencia: 01/2021 - present MTX in the past - transaminitis Code(s): M05.9 - Rheumatoid arthritis with rheumatoid factor, unspecified Plan: Seropositive RA previous x-rays with erosions in left foot and wrists. D Currently treated with Orencia. Her rheumatoid arthritis appears to be stable at this time. She has chronic joint deformities including limited flexion and extension in the right wrist, she has significant arthritis on right wrist x-ray. Also with flexion deformity of the left 5th DIP and right 2nd and 3rd DIP. Patient has bunion deformity and hammertoes in both feet. Continue Orencia 125 mg once weekly. Labs before next visit in 4 months (2) Spondylosis of lumbar region without myelopathy or radiculopathy: Code(s): M47.816 - Spondylosis without myelopathy or radiculopathy, lumbar region Plan: Follow-up with pain management Plan I spent 26 minutes reviewing patient's chart, evaluating patient, ordering diagnostic workup, counseling patient and documenting in the chart Orders: Orders Comprehensive Met. Panel 4 Months M05.9 - Rheumatoid arthritis with rheumatoid factor, unspecified C Reactive Protein 4 Months M05.9 - Rheumatoid arthritis with rheumatoid factor, unspecified Complete Blood Count Auto Diff 4 Months M05.9 - Rheumatoid arthritis with rheumatoid factor, unspecified Erythrocyte Sedimentation Rate 4 Months M05.9 - Rheumatoid arthritis with rheumatoid factor, unspecified Hepatitis A,B,C Profile 4 Months Z11.59 - Encounter for screening for other viral diseases T Spot TB 4 Months Z11.7 - Encounter for testing for latent tuberculosis infection Coding Level of Care Code Est Pt Level 4 (52109) Diagnoses Seropositive rheumatoid arthritis M05.9 Spondylosis of lumbar region without myelopathy or radiculopathy M47.816
== END 2023-06-01 14:17 | disposition home or self-care (01) ==
PROVIDERS: PCP Internal Medicine; Visit Provider Student in an Organized Health Care Education/Training Program
DX: M05.79 Rheumatoid arthritis with rheumatoid factor of multiple sites without organ or systems involvement (principal); M47.816 Spondylosis without myelopathy or radiculopathy, lumbar region
CPT/HCPCS: 99214

== ENCOUNTER → 2023-06-01 13:39 | Outpatient (BNVA) | payer OTHER, SELFPAY | PROVIDERS: PCP Internal Medicine; Visit Provider Student in an Organized Health Care Education/Training Program | DX: M05.9 Rheumatoid arthritis with rheumatoid factor, unspecified (principal); M47.816 Spondylosis without myelopathy or radiculopathy, lumbar region | CPT/HCPCS: 99212 ==

== ENCOUNTER 2023-06-11 12:32 | Outpatient (AMB) | payer OTHER, SELFPAY ==
--- NOTE | 2023-06-11 13:18 | MHC.OFFVIS ---
Intake Vital Signs 06/11/23 13:33 Height 5 ft 1 in Weight 219 lb 6 oz BMI 41.4 BP 199/95 H Blood Pressure Location Rt brachial Position Sitting Pulse 65 Pulse Source Pulse Oximeter Pulse Oximetry (%) 98 Oxygen Delivery Method Room Air Intake Visit Reasons: Follow Up/Back Pain Intake Note: Pain today 06/20. Customer Service Assistant Required: Yes Customer Service Assistant Language: Cost Report Clerk Name: keyla #[id number] Accompanied by: Self / Same As Patient Allergies cyclobenzaprine [From Flexeril] Allergy (Intermediate, Verified 06/11/23 13:35) Dizziness orphenadrine [From Norflex] Allergy (Intermediate, Verified 06/11/23 13:35) Dizziness sarilumab [From Kevzara] Allergy (Intermediate, Verified 06/11/23 13:35) Rash HPI HPI Comments History of Present Illness Details Patient present today for follow up for worsening of low back pain with right sided radiculopathy symptoms. She reports mild to moderate pain relief in March and April since previous injection in February, B/L L5-S1 TFESI. Denies any recent trauma, injury or falls. She ambulates with slow antalgic gait with mild limping to shift her weight to the left side. Patient reports neck through lower back pain that travels into her right buttock, thigh and into right calf and left heel and foot with numbness, tingling and occasional weakness with prolonged walking. She also reports severe back pain with bending forward or lifting and avoids bending down as she is not able to get up from bending due to severe radiculopathy. Patient reports she is able to tolerate 20 minutes of walking or less before she needs to rest due to pain increase. Patient also has seropositive rheumatoid arthritis and states widespread joint pain as well. She is no longer interested with injections, especially cortisone injections due to diabetes and as well as low efficacy of injections in the past. Most recent A1C was 7.0. Patient rates her pain /10. Denies any fever, dizziness, chest pain, shortness of breath, foot drop, bladder or bowel incontinence, or saddle anesthesia. PRIOR: Patient presents today to assess response to B/L L5-S1 TFESI on 02/19/[address] Richardson. Patient reports 50% pain relief in her lower back and 90% pain relief for her radicular pain. She denies any numbness, tingling, weakness or bilateral leg pain today and reports these symptoms have resolved since injection. Unfortunately for her axial low back pain, she has tried Sprint PNS trial with minimal pain relief and therefore requested us to removed it earlier in the PNS therapy. Patient rates her axial low back pain at 9/10 worse with movements, extension or her daily activities. She does have significant lumbar degenerative disc disease with S-shaped thoracolumbar scoliotic curvature, multilevel ligamentum flavum thickening, grade 1 degenerative spondylolisthesis at L5-S1, multilevel discogenic and facetogenic degenerative changes, as well as neuroforaminal and central canal stenosis. She denies any fever, bladder or bowel incontinence or saddle anesthesia. Patient also reports history of kidney stones and significant right sided flank pain with CVA tenderness on the right. She denies any fever, hematuria but reports significant pain with urination. She requests referral to Urology services. PRIOR: Patient is a pleasant 62 years old female status post Unilateral Right L1 and L4 Sprint PNS on 11/19/[address] Richardson. Patient reports less than 20% pain relief and requests me to take Sprint leads out. She reports minimal to no improvement with her daily activities, social interactions, mobility or sleep. Patient was seen in our dressing change and wound check on 11/23/21 and 12/02/22 and has reported similar complaints. Minimal paresthesia at the back at 75 and 78 stimulation. Patient reports uncomfortable sensations with higher stimulation and no pain relief. The dressing was removed today. Leads insertion sites look clean, dry, intact, no redness, no swelling, no pathological discharge. Area was cleansed with Chloraprep. Leads pulled with tips intact and the area was cleansed again with Chloraprep, applied Bacitracin and covered it with gauze and Tegaderm film dressing. Patient is also suffers facetogenic, discogenic and SIJ pain generators. She requests a therapeutic injection for her radicular pain. She reports an increase in lower back pain that radiates to both of her lower extremities posteriorly with numbness and tingling in her feet and shins bilaterally. Reports right lower extremity weakness with ambulation. Patient reports she received KISHAN injections in [place] and these provided her significant pain relief. Her most recent A1C was 7.1 on 10/16/22. We reviewed lumbar spine MRI in greater detail with the patient and her son. I have explained to patient that due to significant multilevel ligamentum flavum thickening, therapeutic injections may be less effective. Given BMI >41, she is not a good candidate for MILD procedure. Patient reports she is trying to lose weight with diet and diabetic medications but has been having difficulty walking due to axial lower back pain with radiculopathy. She denies any fever, abdominal or groin pain, bladder or bowel incontinence or saddle anesthesia. She was seen in our ER department on 12/07/22 for right sided abdominal pain with a benign examination. CT scan of abdomen and pelvis showed hepatomegaly and hepatic steatosis. Questionable mild nodularity of the liver contour which could be seen with cirrhosis. Moderate degree of colonic and rectal stool burden. No evidence of bowel obstruction. Normal appendix. No acute or aggressive appearing osseous abnormalities. Degenerative changes of the spine. Again noted increased sclerosis with subchondral cystic changes in the pubic symphysis, suggesting osteitis pubis or degenerative changes, slightly increased since 2019. Patient reports she takes Milk of Magnesia for constipation with good results. PRIOR Dr. Richardson 10/28/22: Ms. Matias is on the phone today to discuss the results unilateral right diagnostic L2-L3 L4 does ramus L5 medial branch block. She reports 100% pain relief in the area of the injections. She reports better mobility better social interactions better activities of daily living. She reports that upper portion of her pain in the upper lumbar lower thoracic spine remains with pain. I offered her sprint PNS to treat her condition. I am planning to insert L2 and L5 possibly L1 and L4 right stimulation I warned her that this procedure she needs to go to will be under minimal sedation. I also offered her radiofrequency ablation but in her case of widespread pain I believe that sprint is much better procedure to alleviate her pain. Prior:. She has multiple changes on the MRI is dictated as below. Again she was interrogated about her pain. She insists that her pain is on the right side of the lumbar spine and radiates to the right thigh to the level of the knee but not below that level. She reports that flexing backwards aggravates her pain.. She reports that this pain started over 3 years ago. I was under impression that her pain is coming from sacroiliac joints . she reports that the her pain is getting worse when she is trying to stretch her leg on the right. I discussed the situation with her. She is convinced that there is some changes in her lumbar spine which are the cause of the pain. I canceled the trial of peripheral nerve stimulation of sacroiliac joint innervation she was scheduled previously. The trial was based on the injections which were performed before into her sacroiliac joints and gave her significant pain relief. However she received steroid with this injection and she had her blood sugar elevated. I offered her today to perform diagnostic sacroiliac joint injection however patient adamantly refused and insisted on going for the MRI. We received information from [place] about injection she received there. It was unknown level epidural steroid injection during which she received 80 mg of Kenalog. Given 80 mg of Kenalog alone anywhere can relieve any kind of pain. We performed therapeutic bilateral sacroiliac joint injection she reports 45 days of excellent pain relief she reports better mobility better social interactions better activities of daily living. Her past medical history significant for rheumatoid arthritis she is on Orencia, she also suffers from diabetes and hypertension, she has severe arthralgia. She also reports that she has some kidney damage from the medication she receives for rheumatoid arthritis. She is also suffering from truncal obesity. She is morbidly obese. She is also diabetic and takes diabetic medication [facility] Medical History Asthma Asthma exacerbation Burning with urination Costovertebral angle tenderness Diabetes Disc degeneration, lumbar Dyslipidemia Essential hypertension History of [place] [id number] Hospital discharge follow-up Morbid obesity Pleuritic pain Renal calculi Restrictive lung disease Rheumatic fever Rheumatoid arthritis Right-sided back pain Sacroiliitis Seropositive rheumatoid arthritis Spondylosis of cervical spine Spondylosis of lumbar spine TIA (transient ischemic attack) Vaginal modesta Surgical History History of cholecystectomy History of surgery on wrist Hx of colonoscopy (09/01/19) Family History Father Diabetes mellitus Myocardial infarction Hypertension CVD (cardiovascular disease) Mother Diabetes mellitus CVD (cardiovascular disease) Sister No problems noted. Son No problems noted. Son No problems noted. Son No problems noted. Daughter Thyroiditis Daughter No problems noted. Daughter No problems noted. Daughter No problems noted. Daughter No problems noted. Social History Housing: Apartment Alcohol intake: never Patient Tobacco Use Status: Never used Tobacco e-Cigarette/Vaping Use: Never Used Second Hand Smoke Exposure: No service: No Current occupational status: disabled Sexual orientation: Straight/Heterosexual Gender identity: Female Cognitive needs: No Hearing needs: No Vision needs: No Female Reproductive History Menstrual Age of Menarche: 11 Date of menopause: 01/22/10 Review of Systems Const All systems reviewed & are unremarkable except as noted in HPI and below ENT Reports Normal hearing present Card Denies chest pain, Denies chest pain with activity, Denies lightheadedness, Denies palpitations and Denies dyspnea on exertion Resp Denies cough and Denies dyspnea on exertion Musc Reports as per HPI, Reports back pain, Reports arthralgias, Reports muscle cramps, Reports numbness, Reports radiating pain into limb, Reports stiffness and Reports tingling Neuro Reports Normal hearing present, Denies Abnormal speech present, Denies confusion, Reports numbness, Denies Sensory deficit (Neuro) and Reports tingling Psych Denies confusion Endo Denies palpitations Physical Exam Vital Signs: Last Vital Signs Pulse 65 06/11/23 13:33 BP 199/95 H 06/11/23 13:33 Pulse Ox 98 06/11/23 13:33 Oxygen Delivery Method Room Air 06/11/23 13:33 BMI result Body Mass Index 41.4 Const General: cooperative, healthy appearing, alert, awake, in distress (due to pain) moderate, anxious and well groomed; No confusion Nutritional Appearance: obese morbidly obese Orientation/consciousness: patient oriented x3 and No confusion Limitations: language barrier and ambulation with cane HEENT Head: Yes normal to inspection and Yes normocephalic Ears: hearing grossly normal bilaterally Face and sinus: Yes normal facial exam and Yes face symmetric Eyes General: appearance normal, both eyes and all related structures Resp Effort & Inspection: normal respiratory effort, able to speak in complete sentences, no audible wheezes, no cough and symmetric chest movement Cardio Jugular venous distension: no JVD Bruits: no carotid bruits Peripheral pulses: radial pulses present, posterior tibial pulses present and dorsalis pedis present GI Inspection: Yes normal to inspection and Yes obesity Palpation (GI): Soft to palpation and nontender Back/Spine/Pelvis Other: Antalgic gait with no limping. Can flex forward to 60-65 degrees and extend to 5-10 degrees before experiencing lumbar pain. Demonstrates 5/5 left and 4/5 right strength of quadriceps bilaterally as well as flexion/dorsiflexion of bilateral feet against resistance. 2+ pedal pulses bilaterally. Straight leg rise with dorsiflexion positive on the right. Diminished patellar and achilles reflexes bilaterally. Facet loading test positive bilaterally. Unable to complete exam due to pain. Cervical Spine: cervical muscular tenderness and No Cervical spine tenderness Thoracic/Lumbar Spine: thoracic and lumbar spine normal to inspection, No Thoracic/lumbar spine scar(s), Lasegue's sign positive on the right and localized, pain with thoraco-lumbar ROM, paraspinal muscle tenderness, thoraco-lumbar ROM limited, No thoracic spinal tenderness and lumbar spinal tenderness (L4-S1) Pelvis: buttock tenderness (right worse than the left) bilaterally Sacroiliac joints: bilaterally tender to palpation Skin General skin exam: no rashes or lesions noted Neuro General: patient oriented x3, moves all extremities, CN's II-XI intact bilaterally and No confusion Cranial nerves: Yes Normal hearing present Cognition (Neuro): normal cognition Speech: No Abnormal speech present Gait exam (Neuro): Antalgic gait present and Assistive device used Motor exam (neuro): no tremor noted, Normal motor muscle tone present throughout and Motor abnormalities not present Sensory Exam: No Sensory deficit (Neuro) Extrem General: Yes capillary refill normal, Yes no clubbing, cyanosis or edema and Yes no calf tenderness Psych Appearance: grossly normal Mental Status: mental status grossly normal Speech and movement: Normal speech and movement present Affect: normal affect and Sad affect present Attitude: cooperative Thought process: Normal thought process present Thought content: Normal thought content present Insight: Good insight present (Psych) Judgement: Good judgement present (Psych) Results Reviewed Results Reviewed: MR LUMBAR SPINE WITHOUT CONTRAST 08/12/22 FINDINGS: Coronal Alignment: There is partially imaged S-shaped thoracolumbar scoliotic curvature, mildly convex to the left at L4 with slight pekgy-db-gdke lateral listhesis at L4-L5 and convex to the right at T12-L1. These findings are more prominent than on the previous x-rays. Some of this may be positional and/or related to muscle spasm. Sagittal Alignment: There is 3 mm of grade 1 degenerative spondylolisthesis at L5-S1, with S1 being a transitional level, unchanged. Otherwise, the lumbar lordotic curvature is maintained. Lumbosacral Junction: Transitional lumbosacral anatomy with lowest lumbar-like segment labeled as S1, which is partially sacralized bilaterally, with a rudimentary S1-S2 intervertebral disc. Vertebral Bodies: Vertebral body heights are well maintained. Disc Spaces and Endplates: Avtiptmn-fj-clejqm disc space height loss with disc desiccation, Schmorl's nodes and spondylosis at L5-S1. Xqqd-pj-cosjgjso disc space height loss asymmetric to the right at L4-L5 with disc desiccation, tiny Schmorl's nodes and mild spondylosis. Mild disc volume loss asymmetric to the right at L3-L4 with mild disc desiccation and minor spondylosis. There is bulky anterolateral spondylosis deformans asymmetric to the right at T12-L1 and to a lesser degree at L1-L2 with disc desiccation at these levels. Spinal Canal: No abnormal developmental findings. Bone Marrow: No significant marrow-replacing process or bone marrow edema. Conus Medullaris: Terminates at L1-L2. Morphology and signal is normal. Intradural Nerve Roots: Within normal limits. Spine Levels: L5-S1: Diffuse disc bulging is noted with slight unroofing of the posterior disc margin consistent with mild grade 1 degenerative spondylolisthesis. There is bilateral paravertebral/posterolateral disc osteophyte complex. Ligamentum flavum thickening is seen with ojflqfkg-rs-rywcio bilateral facet arthrosis. There is wnwk-bm-wvrehnmo central spinal canal stenosis, with moderate bilateral subarticular/lateral recess stenosis, mildly encroaching on the traversing S1 nerve roots bilaterally. Moderate bilateral neural foraminal stenosis is noted with disc osteophyte complex abutting the exiting L5 nerve roots bilaterally. L4-L5: Concentric disc bulging is noted with flattening of the ventral thecal sac, with a superimposed right foraminal/extraforaminal disc herniation. Marked ligamentum flavum thickening is noted with interspinous ligament degeneration and moderate bilateral facet hypertrophic degenerative change. Zgnu-um-vsufbvsy central canal stenosis is noted with mild narrowing of the subarticular recesses. Moderate right-sided neural foraminal stenosis is noted with right lateral disc herniation impinging on the exiting right L4 nerve root. L3-L4: Diffuse disc bulging and flattening of the ventral dural sac is noted with a superimposed left-sided foraminal/extraforaminal disc protrusion. Prominent dorsal epidural fat pad with ligamentum flavum thickening and interspinous ligament degeneration, with itli-pf-oopxfyix facet arthropathy, left more than right. Mild central canal stenosis is noted with mild narrowing of the subarticular zones without definite neural impingement. Mild bilateral neural foraminal stenosis is noted. Left lateral disc herniation abuts the extraforaminal left L3 nerve root. L2-L3: Shallow central disc protrusion with minimal indentation of the ventral thecal sac. Mild bilateral facet arthropathy noted. No significant canal or neural foraminal stenosis. L1-L2: Normal disc contour. Mild facet arthropathy noted. No canal or neural foraminal stenosis. Paraspinal/Retroperitoneal: The visualized paravertebral soft tissues are unremarkable. IMPRESSION: 1. S-shaped thoracolumbar scoliotic curvature, as described above, with grade 1 degenerative spondylolisthesis at L5-S1. 2. Multilevel discogenic degenerative changes, most apparent at L5-S1 with S1 being a transitional level. Multilevel spondylosis, disc bulging and disc herniations as detailed by level above, with mild to moderate degrees of spinal canal stenosis at L4-L5 and L5-S1 and mild spinal canal stenosis at L3-L4. 3. Bilateral subarticular recess stenosis at L5-S1 with encroachment on the traversing S1 nerve roots bilaterally, right more than left. 4. Multilevel bilateral facet arthropathy, with multilevel interspinous ligament degeneration. 5. Moderate bilateral neural foraminal stenosis: at L5-S1 with disc osteophyte complex abutting the exiting L5 nerve roots bilaterally. Moderate right-sided neural foraminal stenosis with right lateral disc herniation at L4-L5 impinging on the exiting right L4 nerve root. Left lateral disc herniation at L3-L4 abutting the extra foraminal left L3 nerve root. Assessment & Plan Assessment & Plan (1) Lumbar radiculopathy: Code(s): M54.16 - Radiculopathy, lumbar region (2) Right-sided back pain: Code(s): M54.9 - Dorsalgia, unspecified (3) Disc degeneration, lumbar: Code(s): M51.36 - Other intervertebral disc degeneration, lumbar region (4) Vertebrogenic low back pain: Code(s): M54.51 - Vertebrogenic low back pain Plan Patient patient returned today this worsening of low back pain consistent with spinal stenosis pain mostly on the right in L5-S1 distribution. Her last injection bilateral L5-S1 TFESI on 03/05/23 provided her temporary symptom improvement in her legs but she continues to report significant back pain is right-sided radiculopathy. She is no longer interested in injections and would like to pursue neurosurgical evaluation. I will update her MRI from lumbar spine and sent patient to our colleagues at [facility] for evaluation. Here diabetes is well managed with A1C=7.0. Patient is also provided with low-dose Celebrex for trxexwsa-rb-clngxq pain. The side effects have been reviewed with patient's and she is aware to take it with full glass of water and food. Continue alternate this is Tylenol as needed. For her axial low back pain and degenerative changes on the endplates with Modic with Schmorl's nodes , she is a good candidate for possible Intracept procedure in the future as well. Patient is aware to call if pain worsens or if he develops any red flag symptoms to seek emergency care. Patient denies any cauda equina syndrome symptoms at this time. All questions were answered. Follow up for MRI results and as needed. Orders: Orders MR lumbar spine wo con Today M51.36 - Other intervertebral disc degeneration, lumbar region, M54.16 - Radiculopathy, lumbar region, M54.51 - Vertebrogenic low back pain, M54.9 - Dorsalgia, unspecified Referrals Neurosurgery Referral M51.36 - Other intervertebral disc degeneration, lumbar region, M54.16 - Radiculopathy, lumbar region, M54.51 - Vertebrogenic low back pain, M54.9 - Dorsalgia, unspecified Medications: New celecoxib (Celebrex) Take it with food and full glass of water. 100 mg PO BID 30 days PRN 60 caps 0RF pain M51.36 - Other intervertebral disc degeneration, lumbar region, M54.16 - Radiculopathy, lumbar region, M54.51 - Vertebrogenic low back pain, M54.9 - Dorsalgia, unspecified Coding Level of Care Code Est Pt Level 4 (34088) Diagnoses Lumbar radiculopathy M54.16 Right-sided back pain M54.9 Disc degeneration, lumbar M51.36 Vertebrogenic low back pain M54.51
[2023-06-11 13:33] VITALS: BP 199/95; PULSE 65; O2SAT 98; BMI 41.4
== END 2023-06-11 13:51 | disposition home or self-care (01) ==
PROVIDERS: PCP Internal Medicine; Visit Provider Nurse Practitioner Family
DX: M54.16 Radiculopathy, lumbar region (principal); M54.9 Dorsalgia, unspecified; M51.36 Other intervertebral disc degeneration, lumbar region; M54.51 Vertebrogenic low back pain
CPT/HCPCS: 99214

== ENCOUNTER → 2023-06-11 12:32 | Outpatient (BNVA) | payer OTHER, SELFPAY | PROVIDERS: PCP Internal Medicine; Visit Provider Nurse Practitioner Family | DX: M54.16 Radiculopathy, lumbar region (principal); M54.9 Dorsalgia, unspecified; M51.36 Other intervertebral disc degeneration, lumbar region; M54.51 Vertebrogenic low back pain | CPT/HCPCS: 99212 ==

== ENCOUNTER 2023-06-22 10:23 | Outpatient (AMB) | payer OTHER, SELFPAY ==
--- NOTE | 2023-06-22 11:12 | MHC.OFFVIS ---
Intake Intake Visit Reasons: low back pain Allergies cyclobenzaprine [From Flexeril] Allergy (Intermediate, Verified 06/11/23 13:35) Dizziness orphenadrine [From Norflex] Allergy (Intermediate, Verified 06/11/23 13:35) Dizziness sarilumab [From Kevzara] Allergy (Intermediate, Verified 06/11/23 13:35) Rash [facility] Medical History Asthma Asthma exacerbation Burning with urination Costovertebral angle tenderness Diabetes Disc degeneration, lumbar Dyslipidemia Essential hypertension History of ID- Hospital discharge follow-up Morbid obesity Pleuritic pain Renal calculi Restrictive lung disease Rheumatic fever Rheumatoid arthritis Right-sided back pain Sacroiliitis Seropositive rheumatoid arthritis Spondylosis of cervical spine Spondylosis of lumbar spine TIA (transient ischemic attack) Vaginal modesta Surgical History History of cholecystectomy History of surgery on wrist Hx of colonoscopy (09/01/19) Family History Father Diabetes mellitus Myocardial infarction Hypertension CVD (cardiovascular disease) Mother Diabetes mellitus CVD (cardiovascular disease) Sister No problems noted. Son No problems noted. Son No problems noted. Son No problems noted. Daughter Thyroiditis Daughter No problems noted. Daughter No problems noted. Daughter No problems noted. Daughter No problems noted. Social History Housing: Apartment Alcohol intake: never Patient Tobacco Use Status: Never used Tobacco e-Cigarette/Vaping Use: Never Used Second Hand Smoke Exposure: No service: No Current occupational status: disabled Sexual orientation: Straight/Heterosexual Gender identity: Female Cognitive needs: No Hearing needs: No Vision needs: No Female Reproductive History Menstrual Age of Menarche: 11 Date of menopause: 01/22/10 Assessment & Plan Assessment & Plan (1) Numbness and tingling: Code(s): R20.0 - Anesthesia of skin; R20.2 - Paresthesia of skin (2) Vertebrogenic low back pain: Code(s): M54.51 - Vertebrogenic low back pain Plan Dear Kim, Thank you for referring Mrs Davalos to our office today. She is a very nice 63-year-old diabetic woman with rheumatoid arthritis who presents to the office today for evaluation of a chronic low back pain which can radiate down into her right lateral thigh and into her calf. Interestingly the symptoms are worse when she is sitting in get better when she walks around. She describes the back pain is being diffuse across her whole low back going all the way up into her middle thoracic region. She has undergone numerous rounds of conservative treatment including physical therapy, ibuprofen as well as cortisone injections. The cortisone injections have helped, and according to the records it looks like these were dorsal rami or median branch blocks. The symptoms are not terrible, but do interfere with her quality of life. Nighttime can be particularly bad. She also reports occasional numbness on the backs of her hands as well. No numbness in her legs however. She is here today for surgical evaluation. PMH: History of hypertension, diabetes, her A1c was 7.0 when it was checked few months ago, history of rheumatoid arthritis , pelvic pain, LFT elevations, constipation, sacroiliitis, asthma, restrictive lung disease, morbid obesity, high cholesterol Social hx: She does not smoke Medications: Orencia, albuterol, Celebrex, Colace, fluticasone inhaler, lisinopril, metformin, tizanidine Allergies: Cyclobenzaprine, sarilumab,orphenadrine Physical exam: Morbidly obese female no acute distress, she has some limitations with lifting her right knee in the air secondary to pain but no focal motor deficits. She has some mild bilateral hand weakness with numbness on the dorsum of her hands, specifically worse in her right pinky finger. Reflexes are normal, no Garner's, no clonus Imaging review: Lumbar MRI done at [facility] about a year ago shows diffuse arthritic changes but most specifically she has transitional anatomy and what I will call L5-S1 she has a severely collapsed disc with bilateral foraminal stenosis which I would rate as moderate. It is not clear if there is any compression of the nerve in the foramen. There was some other mild changes but the L5-S1 is definitely the worst. I looked at a CT of her abdomen done recently and from the bone windows on the lumbar spine I can see that there appears to be [id number] contact at the L5-S1 vertebral bodies. Impression: This is a 63-year-old morbidly obese diabetic woman with rheumatoid arthritis who presents to the office today chronic low back pain from her lumbar region up into her midthoracic region with right-sided leg pain which appears to fit with an L5 distribution. The symptoms are worse when she is lying down at night or if she is sitting and get better when she walks. She has been through conservative treatments including injections and physical therapy. I explained to her that her MRI does show that there is collapsing of the disc at L5-S1 consistent with degenerative or arthritic changes. We discussed the fact that rheumatoid arthritis can give diffuse body aches and pains that often cannot be explained or fixed with surgery. There could be a role for intervention with the L5-S1 disc, specifically fusion surgery, but I do not think that it would fix her diffuse back pain which goes from her lumbar spine all the way up to her mid thoracic levels. I told her she needs to take into account careful consideration that the surgery would not be done to relieve all of her back pain. Currently, the symptoms are not terrible so she is not at a point where she wishes to consider surgery. She did ask me about the numbness on the backs of her hands and into her 5th digit on the right hand. She does not demonstrate any signs of myelopathy on her exam, I suspect this could be some kind of nerve entrapment so I will order bilateral upper extremity EMG. If that is negative, we could consider cervical MRI. I asked her to return in 3-6 months for another visit just to re-evaluate things. Thank you for allowing us to care for your patient. The total time spent with this visit with this patient was 45 minutes reviewing history, physical exam, lumbar imaging review, and implementation of treatment plan or further diagnostic testing Ez Tsai MD,PhD [facility] Orders: Orders NE electromyogram (EMG) Today R20.0 - Anesthesia of skin, R20.2 - Paresthesia of skin Coding Level of Care Code New Pt Level 4 (19899) Diagnoses Numbness and tingling R20.0; R20.2 Vertebrogenic low back pain M54.51
== END 2023-06-22 11:13 | disposition home or self-care (01) ==
PROVIDERS: PCP Internal Medicine; Referring Provider Nurse Practitioner Family; Visit Provider Physician Assistant
DX: R20.0 Anesthesia of skin (principal); R20.2 Paresthesia of skin; M54.51 Vertebrogenic low back pain
CPT/HCPCS: 99204

== ENCOUNTER → 2023-06-22 10:23 | Outpatient (BNVA) | payer OTHER, SELFPAY | PROVIDERS: PCP Internal Medicine; Visit Provider Physician Assistant | DX: M54.51 Vertebrogenic low back pain (principal); R20.0 Anesthesia of skin; R20.2 Paresthesia of skin | CPT/HCPCS: 99202 ==

== ENCOUNTER 2023-06-29 11:11 | Outpatient (AMB) | payer OTHER, SELFPAY ==
--- NOTE | 2023-06-29 11:19 | MHC.PC.OV ---
Vital Signs 06/29/23 11:21 Height 5 ft 1 in Weight 215 lb BMI 40.6 BP 138/60 Blood Pressure Location Lt brachial Position Sitting Pulse 72 Pulse Source Pulse Oximeter Pulse Oximetry (%) 95 Oxygen Delivery Method Room Air Intake Visit Reasons: [place] 06/27/23 Asthma Intake Note: Patient is here to follow-up after a visit the emergency department at [facility] on 06/27/23. Senior Project Accountant Required: Yes Senior Project Accountant Language: News Library Director Name: Dylon ([id number]) Information Interpreted: non-clinical & clinical Angle Shear Operator: Not Required per policy Accompanied by: Self / Same As Patient Allergies cyclobenzaprine [From Flexeril] Allergy (Intermediate, Verified 06/29/23 11:38) Dizziness orphenadrine [From Norflex] Allergy (Intermediate, Verified 06/29/23 11:38) Dizziness sarilumab [From Kevzara] Allergy (Intermediate, Verified 06/29/23 11:38) Rash Medication List - Last Reconciled 06/29/23 by LUCERO Vanessa abatacept (Orencia ClickJect) 125 mg subcut QWEEK albuterol sulfate 90 mcg/actuation 2 inhalations PO Q4H PRN blood sugar diagnostic (FreeStyle Lite Strips) Use 1 test strip once a day blood-glucose meter (FreeStyle Lite Meter kit) E11.9 ONCE A DAY celecoxib (Celebrex) 100 mg PO BID PRN 30 days [cock up splint wear on the right wrist at night ] docusate sodium (Col-Rite) 100 mg PO BID fluticasone propionate 220 mcg/actuation (Flovent HFA) 2 puffs inhalation BID 30 days ipratropium-albuterol 20-100 mcg/actuation (Combivent Respimat) 2 puffs inhalation Q4H lancets (FreeStyle Lancets) Use 1 lancet once a day as needed lisinopril 5 mg PO DAILY 90 days metformin 1,000 mg PO BID 90 days tizanidine 2 mg PO BID PRN Tobacco use date assessed: 10/16/22 Dental Screening Dental Screen Date: 06/29/23 Did you have a dental visit in the last 12 months?: Yes Did you have a dental problem in the last 6 months where you did not have access to dental care?: No Was dental information given to patient?: Patient has dentist HPI HPI Comments History of Present Illness Details 62-year-old history of hypertension, dyslipidemia, asthma, restrictive lung disease, seropositive rheumatoid arthritis, spondylosis cervical and lumbar spine and sacroilitis. Patient Dr. Simmons presents today for ER follow for asthma exacerbation on 06/27/23, records unavailable during this appointment. Patient states she vomitted x 2 went to ER and they said she has asthma. Patient states using Combivent Respimat inhaler 2 puff q4 hours. Patient states CXR unremarkable. Patient states that she has only been on her new Combivent inhaler x1 day so she is unsure if it has improved her breathing at all. Patient still does have scattered expiratory wheezing throughout. Patient advised to call truck service technician to schedule follow-up with them. [facility] Medical History Asthma Asthma exacerbation Burning with urination Costovertebral angle tenderness Diabetes Disc degeneration, lumbar Dyslipidemia Essential hypertension [facility] Morbid obesity Pleuritic pain Renal calculi Restrictive lung disease Rheumatic fever Rheumatoid arthritis Right-sided back pain Sacroiliitis Seropositive rheumatoid arthritis Spondylosis of cervical spine Spondylosis of lumbar spine TIA (transient ischemic attack) Vaginal modesta Surgical History History of cholecystectomy Hx of colonoscopy (09/01/19) History of surgery on wrist Family History Father Diabetes mellitus Myocardial infarction Hypertension CVD (cardiovascular disease) Mother Diabetes mellitus CVD (cardiovascular disease) Sister No problems noted. Son No problems noted. Son No problems noted. Son No problems noted. Daughter Thyroiditis Daughter No problems noted. Daughter No problems noted. Daughter No problems noted. Daughter No problems noted. Social History Housing: Apartment Alcohol intake: never Patient Tobacco Use Status: Never used Tobacco e-Cigarette/Vaping Use: Never Used Second Hand Smoke Exposure: No service: No Current occupational status: disabled Sexual orientation: Straight/Heterosexual Gender identity: Female Cognitive needs: No Hearing needs: No Vision needs: No Female Reproductive History Menstrual Age of Menarche: 11 Date of menopause: 01/22/10 Questionnaire Thrive Questionnaire Date Thrive assessed: 10/16/22 SONA-7 AMB Questionnaire SONA-7 Date SONA - 7 assessed: 04/29/23 Source: Developed by Drs. Spencer Gonzalez, Anamaria Bartlett, Clayton Azar and colleagues, with an educational anna from [employer]. Review of Systems Const Denies chills, Denies fatigue, Denies fever(s) and Denies poor appetite Eyes Denies no additional complaints ENT Reports Normal hearing present Card Denies chest pain, Denies syncope, Denies rapid heart rate and Denies dyspnea Resp Denies cough and Denies dyspnea GI Denies change in stool character, Denies constipation, Denies diarrhea, Denies nausea and Denies vomiting Denies urinary frequency, Denies dysuria and Denies urinary urgency Neuro Reports Normal hearing present, Denies confusion and Denies syncope Psych Denies confusion Endo Denies fatigue Physical exam (Primary Care) Vital Signs: Last Vital Signs Pulse 72 06/29/23 11:21 BP 138/60 06/29/23 11:21 Pulse Ox 95 06/29/23 11:21 Oxygen Delivery Method Room Air 06/29/23 11:21 BMI result Body Mass Index 40.6 Tobacco/Smoking Status: Tobacco use Status Tobacco use date assessed 10/16/22 06/29/23 11:36 Patient Tobacco Use Status Never used Tobacco 06/29/23 11:36 e-Cigarette/Vaping Use Never Used 06/29/23 11:36 Thrive Assessment: Date of Thrive Assessment Date Thrive assessed 10/16/22 06/29/23 11:36 Const General: No confusion Orientation/consciousness: No confusion HENMT Head: Yes normocephalic and Yes atraumatic Eyes Conjunctivae: conjunctivae normal Chest Chest palpation & inspection: normal inspection of the chest Resp Effort & Inspection: normal respiratory effort Auscultation: clear to auscultation bilaterally, no crackles, no rhonchi and wheezes scattered wheezes and upper bilaterally Cardio Rate: regular rate Rhythm: regular rhythm Heart sounds: S1 normal heart sound present and S2 normal heart sound present GI Inspection: Yes normal to inspection Neuro General: No confusion Cranial nerves: Yes Normal hearing present Extrem General: No edema Assessment and Plan Assessment & Plan (1) Diabetes: Code(s): E11.9 - Type 2 diabetes mellitus without complications Qualifiers: Diabetes mellitus type: type 2 Diabetes mellitus jail insulin use: without watermelon harvesting supervisor use Diabetes mellitus complication status: with hyperglycemia Qualified Code(s): E11.65 - Type 2 diabetes mellitus with hyperglycemia Plan: Continue on metformin 1000 mg p.o. b.i.d.. Continue to follow low-carbohydrate diet. (2) Asthma: Comment: ASTHMA/ REACTIVE AIRWAYS , CAUSING COUGH . TX : CHANGE WIXELA TO FLOVENT-220 2 PUFFS B.I.D.. RE-CHECK IN 4 MONTHS Code(s): J45.909 - Unspecified asthma, uncomplicated Plan: Continue on Flovent b.i.d. and Combivent Respimat q.4 hours as prescribed by the emergency room. Patient advised to call truck service technician schedule a ER follow-up. (3) Essential hypertension: Code(s): I10 - Essential (primary) hypertension Plan: Continue on lisinopril 5 mg daily. Follow low-salt diet and exercise. Medications: Refilled metformin 1,000 mg PO BID 90 days 180 tabs 1RF Coding Level of Care Code Est Pt Level 4 (89539) Diagnoses Type 2 diabetes mellitus with hyperglycemia, without long-term current use of insulin E11.65 Diabetes mellitus type: type 2 Diabetes mellitus watermelon harvesting supervisor insulin use: without jail use Diabetes mellitus complication status: with hyperglycemia Asthma J45.909 Essential hypertension I10
[2023-06-29 11:21] VITALS: BP 138/60; PULSE 72; O2SAT 95; BMI 40.6
== END 2023-06-29 11:59 | disposition home or self-care (01) ==
PROVIDERS: PCP Internal Medicine; Visit Provider Nurse Practitioner Family
DX: E11.65 Type 2 diabetes mellitus with hyperglycemia (principal); J45.909 Unspecified asthma, uncomplicated; I10 Essential (primary) hypertension
CPT/HCPCS: 99214

== ENCOUNTER 2023-07-06 12:47 | Outpatient (AMB) | payer OTHER, SELFPAY ==
--- NOTE | 2023-07-06 13:04 | MHC.OFFVIS ---
Intake Vital Signs 07/06/23 13:06 Height 5 ft 1 in Weight 216 lb BMI 40.8 BP 142/72 H Blood Pressure Location Lt brachial Position Sitting Pulse 75 Pulse Source Pulse Oximeter Pulse Oximetry (%) 98 Oxygen Delivery Method Room Air Intake Visit Reasons: Shortness of Breath ([facility]) Intake Note: pt is here for follow up from [facility] and states she is short of breath, coughing, wheezy. was given a new inhaler combivent respimet at [facility] and using this with her Flovent. Horticultural Therapist Required: Yes Horticultural Therapist Name: Landon Allergies cyclobenzaprine [From Flexeril] Allergy (Intermediate, Verified 07/06/23 13:12) Dizziness orphenadrine [From Norflex] Allergy (Intermediate, Verified 07/06/23 13:12) Dizziness sarilumab [From Kevzara] Allergy (Intermediate, Verified 07/06/23 13:12) Rash Medication List - Last Reconciled 07/06/23 by Deena Grande MD abatacept (Orencia ClickJect) 125 mg subcut QWEEK albuterol sulfate 90 mcg/actuation 2 inhalations PO Q4H PRN albuterol sulfate 2.5 mg (3 mL) inhalation Q4-6H PRN 30 days blood sugar diagnostic (FreeStyle Lite Strips) Use 1 test strip once a day blood-glucose meter (FreeStyle Lite Meter kit) E11.9 ONCE A DAY celecoxib (Celebrex) 100 mg PO BID PRN 30 days [cock up splint wear on the right wrist at night ] docusate sodium (Col-Rite) 100 mg PO BID fluticasone propionate 220 mcg/actuation (Flovent HFA) 2 puffs inhalation BID 30 days ipratropium-albuterol 20-100 mcg/actuation (Combivent Respimat) 2 puffs inhalation Q4H lancets (FreeStyle Lancets) Use 1 lancet once a day as needed lisinopril 5 mg PO DAILY 90 days metformin 1,000 mg PO BID 90 days tizanidine 2 mg PO BID PRN Do you need a note to return to daycare/school/sports/work: No HPI Shortness of Breath ([facility]) HPI Details SHE WAS SEEN AT [facility] A FEW DAYS AGO, IN THE EMERGENCY ROOM WITH, SYMPTOMS OF ACUTE COUGH NASAL CONGESTION AND INCREASED SHORTNESS OF BREATH. SHE WAS PRESCRIBED PREDNISONE FOR 1 WEEK, WHICH SHE IS STILL TAKING. DOES NOT KNOW. THE EXACT DOES SHE WAS ALSO PRESCRIBED COMBIVENT RESPIMAT TO USE 1 INHALATION Q 6 HOURS P.R.N.. AND SHE WAS TO CONTINUE USING FLOVENT 2 PUFFS B.I.D.. SHE STATES THAT SHE IS GETTING BETTER BUT STILL HAS MILD NASAL CONGESTION WITH INTERMITTENT COUGH. SHE HAS NO FEVER , CHILLS OR CHEST PAIN . [facility] Medical History Rheumatic fever TIA (transient ischemic attack) Right-sided back pain History of COVID-19 Asthma exacerbation Hospital discharge follow-up Sacroiliitis Renal calculi Costovertebral angle tenderness Burning with urination Disc degeneration, lumbar Spondylosis of cervical spine Spondylosis of lumbar spine Pleuritic pain Restrictive lung disease Morbid obesity Asthma Dyslipidemia Essential hypertension Vaginal modesta Seropositive rheumatoid arthritis Rheumatoid arthritis Diabetes Surgical History History of cholecystectomy Hx of colonoscopy (09/01/19) History of surgery on wrist Family History Father Diabetes mellitus Myocardial infarction Hypertension CVD (cardiovascular disease) Mother Diabetes mellitus CVD (cardiovascular disease) Sister No problems noted. Son No problems noted. Son No problems noted. Son No problems noted. Daughter Thyroiditis Daughter No problems noted. Daughter No problems noted. Daughter No problems noted. Daughter No problems noted. Social History Housing: Apartment Alcohol intake: never Patient Tobacco Use Status: Never used Tobacco e-Cigarette/Vaping Use: Never Used Second Hand Smoke Exposure: No service: No Current occupational status: disabled Sexual orientation: Straight/Heterosexual Gender identity: Female Cognitive needs: No Hearing needs: No Vision needs: No Female Reproductive History Menstrual Age of Menarche: 11 Date of menopause: 01/22/10 Review of Systems Const All systems reviewed & are unremarkable except as noted in HPI and below Eyes Reports no additional complaints ENT Reports nasal congestion (Mild off and on) Card Denies chest pain, Denies irregular heart rhythm and Denies leg edema Resp Reports as per HPI GI Reports constipation Reports other (Mild burning with urination) Musc Reports no additional complaints Skin/Breast Reports system reviewed and no additional complaints, except as documented Neuro Reports no additional complaints Psych Reports no additional complaints Physical Exam Vital Signs: Last Vital Signs Pulse 75 07/06/23 13:06 BP 142/72 H 07/06/23 13:06 Pulse Ox 98 07/06/23 13:06 Oxygen Delivery Method Room Air 07/06/23 13:06 BMI result Body Mass Index 40.8 Const General: comfortable, no acute distress, alert and awake Orientation/consciousness: patient oriented x3 HEENT Head: Yes normal to inspection General nose exam: No nasal polyps present and No nasal discharge present Face and sinus: Yes sinuses nontender Mouth: oropharynx normal Throat: Yes posterior oropharynx normal Eyes General: appearance normal, both eyes and all related structures Neck Neck: Yes normal visual inspection, Yes no lymphadenopathy, Yes trachea midline and Yes no JVD Thyroid: Thyroid normal Chest Chest palpation & inspection: normal inspection of the chest, normal palpation of entire chest wall and no tenderness Resp Other: Percussion note is resonant, breath sounds equal on both sides, moderately distant , DEEP BREATHING EFFORTS PRODUCE COUGH. NO CREPITATIONS OR WHEEZES ARE HEARD. Cardio Palpation: normal PMI Rate: regular rate Rhythm: regular rhythm Heart sounds: no gallops and no murmurs Peripheral pulses: Peripheral pulses 2+ throughout GI Palpation (GI): Soft to palpation, nontender, No hepatosplenomegaly present and no masses Auscultation: normal bowel sounds Back/Spine/Pelvis Thoracic/Lumbar Spine: thoracic and lumbar spine normal to inspection, thoraco-lumbar ROM limited, thoraco-lumbar spasm and thoracic spinal tenderness Skin General skin exam: no rashes or lesions noted Neuro General: patient oriented x3 and no focal motor deficits Cranial nerves: Yes CN's II-XII intact bilaterally Extrem General: Yes normal to inspection, Yes no clubbing, cyanosis or edema and Yes no calf tenderness Psych Appearance: grossly normal Speech and movement: Normal speech and movement present Assessment & Plan Assessment & Plan (1) Asthma exacerbation: Comment: TREATED FOR A MILD TO MODERATE ACUTE EXACERBATION AT [facility] EMERGENCY ROOM. SHE IS GETTING BETTER. BUT STILL HAS RESIDUAL COUGH TX : I ADVISED HER TO CONTINUE USING THE PREDNISONE AND COMPLETE THE WHOLE COURSE. PRESCRIBED FLOVENT -TO 20 2 PUFFS, B.I.D. TO CONTINUE COMBIVENT RESPIMAT 1 INHALATION Q 6 HOURS ( T.I.D. ) I WILL RECHECK HER IN ABOUT 7-10 DAYS TO MAKE SURE THAT SHE HAS OVERCOME THIS ACUTE EXACERBATION. Code(s): J45.901 - Unspecified asthma with (acute) exacerbation (2) Cough: Comment: Her main concern is ongoing cough and feeling of congestion in her upper chest for the last few months. I think cough is secondary to reactive airways, TX : FOR INCREASED COUGH WHICH MAY BE DUE TO ACUTE BRONCHITIS, OK TO TAKE ROBITUSSIN 2 TSF TID . Code(s): R05.9 - Cough, unspecified Coding Level of Care Code Est Pt Level 3 (13761) Diagnoses Asthma exacerbation J45.901 Cough R05.9
[2023-07-06 13:06] VITALS: BP 142/72; PULSE 75; O2SAT 98; BMI 40.8
== END 2023-07-06 13:35 | disposition home or self-care (01) ==
PROVIDERS: PCP Internal Medicine; Visit Provider Internal Medicine
DX: J45.901 Unspecified asthma with (acute) exacerbation (principal); R05.9 Cough, unspecified
CPT/HCPCS: 99213

== ENCOUNTER → 2023-07-06 12:47 | Outpatient (BNVA) | payer OTHER, SELFPAY | PROVIDERS: PCP Internal Medicine; Visit Provider Internal Medicine | DX: J45.901 Unspecified asthma with (acute) exacerbation (principal); R05.9 Cough, unspecified | CPT/HCPCS: 99212 ==

== ENCOUNTER 2023-07-15 14:47 | Outpatient (AMB) | payer OTHER, SELFPAY ==
[2023-07-15 14:59] VITALS: BP 140/70; PULSE 73; O2SAT 98; BMI 40.8
--- NOTE | 2023-07-15 14:59 | MHC.OFFVIS ---
Intake Vital Signs 07/15/23 14:59 Height 5 ft 1 in Weight 216 lb BMI 40.8 BP 140/70 H Blood Pressure Location Lt brachial Position Sitting Pulse 73 Pulse Source Pulse Oximeter Pulse Oximetry (%) 98 Oxygen Delivery Method Room Air Intake Visit Reasons: Shortness of Breath Intake Note: pt is here for follow up and states she is feeling better, still has some phlegm still in the throat and she is using her inhaler. Technician Support Engineer Required: Yes Technician Support Engineer Name: [email or web address] [id number] Allergies cyclobenzaprine [From Flexeril] Allergy (Intermediate, Verified 07/15/23 15:10) Dizziness orphenadrine [From Norflex] Allergy (Intermediate, Verified 07/15/23 15:10) Dizziness sarilumab [From Kevzara] Allergy (Intermediate, Verified 07/15/23 15:10) Rash Medication List - Last Reconciled 07/15/23 by Deena Grande MD abatacept (Orencia ClickJect) 125 mg subcut QWEEK albuterol sulfate 90 mcg/actuation 2 inhalations PO Q4H PRN albuterol sulfate 2.5 mg (3 mL) inhalation Q4-6H PRN 30 days blood sugar diagnostic (FreeStyle Lite Strips) Use 1 test strip once a day blood-glucose meter (FreeStyle Lite Meter kit) E11.9 ONCE A DAY celecoxib 100 mg PO BID PRN [cock up splint wear on the right wrist at night ] docusate sodium (Col-Rite) 100 mg PO BID fluticasone propionate 220 mcg/actuation (Flovent HFA) 2 puffs inhalation BID 30 days ipratropium-albuterol 20-100 mcg/actuation (Combivent Respimat) 2 puffs inhalation Q4H lancets (FreeStyle Lancets) Use 1 lancet once a day as needed lisinopril 5 mg PO DAILY 90 days metformin 1,000 mg PO BID 90 days tizanidine 2 mg PO BID PRN Do you need a note to return to daycare/school/sports/work: No HPI Shortness of Breath HPI Details [place], [age] YEARS OLD FEMALE, HAS BEEN TREATED FOR AN ACUTE EXACERBATION OF BRONCHIAL ASTHMA/COPD. SHE HAS COMPLETED THE COURSE OF PREDNISONE, SHE HAS MINIMAL RESIDUAL COUGH. SHE FEELS IF THERE IS SOME MUCUS IN THE THROAT WHICH DOES NOT COME UP. DENIES WHEEZING. BREATHING IS BACK TO HER BASELINE. [facility] Medical History Rheumatic fever TIA (transient ischemic attack) Right-sided back pain History of COVID-19 Asthma exacerbation Hospital discharge follow-up Sacroiliitis Renal calculi Costovertebral angle tenderness Burning with urination Disc degeneration, lumbar Spondylosis of cervical spine Spondylosis of lumbar spine Pleuritic pain Restrictive lung disease Morbid obesity Asthma Dyslipidemia Essential hypertension Vaginal modesta Seropositive rheumatoid arthritis Rheumatoid arthritis Diabetes Surgical History History of cholecystectomy Hx of colonoscopy (09/01/19) History of surgery on wrist Family History Father Diabetes mellitus Myocardial infarction Hypertension CVD (cardiovascular disease) Mother Diabetes mellitus CVD (cardiovascular disease) Sister No problems noted. Son No problems noted. Son No problems noted. Son No problems noted. Daughter Thyroiditis Daughter No problems noted. Daughter No problems noted. Daughter No problems noted. Daughter No problems noted. Social History Housing: Apartment Alcohol intake: never Patient Tobacco Use Status: Never used Tobacco e-Cigarette/Vaping Use: Never Used Second Hand Smoke Exposure: No service: No Current occupational status: disabled Sexual orientation: Straight/Heterosexual Gender identity: Female Cognitive needs: No Hearing needs: No Vision needs: No Female Reproductive History Menstrual Age of Menarche: 11 Date of menopause: 01/22/10 Review of Systems Const All systems reviewed & are unremarkable except as noted in HPI and below Eyes Reports no additional complaints ENT Reports nasal congestion (Mild off and on) Card Denies chest pain, Denies irregular heart rhythm and Denies leg edema Resp Reports as per HPI GI Reports constipation Reports other (Mild burning with urination) Musc Reports no additional complaints Skin/Breast Reports system reviewed and no additional complaints, except as documented Neuro Reports no additional complaints Psych Reports no additional complaints Physical Exam Const General: comfortable, no acute distress, alert and awake Orientation/consciousness: patient oriented x3 HEENT Other: NASOPHARYNX IS CLEAR ON EXAMINATION, NO EXCESSIVE MUCUS IS NOTED. Head: Yes normal to inspection General nose exam: No nasal polyps present and No nasal discharge present Face and sinus: Yes sinuses nontender Mouth: oropharynx normal Throat: Yes posterior oropharynx normal Eyes General: appearance normal, both eyes and all related structures Neck Neck: Yes normal visual inspection, Yes no lymphadenopathy, Yes trachea midline and Yes no JVD Thyroid: Thyroid normal Chest Chest palpation & inspection: normal inspection of the chest, normal palpation of entire chest wall and no tenderness Resp Other: Percussion note is resonant, breath sounds equal on both sides, moderately distant , SHE CAN TAKE DEEP BREATHS WITHOUT MUCH COUGH,. Breath sounds are diminished over the basilar areas, otherwise both sides of the chest are clear. Cardio Palpation: normal PMI Rate: regular rate Rhythm: regular rhythm Heart sounds: no gallops and no murmurs GI Palpation (GI): Soft to palpation, nontender, No hepatosplenomegaly present and no masses Auscultation: normal bowel sounds Back/Spine/Pelvis Thoracic/Lumbar Spine: thoracic and lumbar spine normal to inspection, thoraco-lumbar ROM limited, thoraco-lumbar spasm and thoracic spinal tenderness Skin General skin exam: no rashes or lesions noted Neuro General: patient oriented x3 and no focal motor deficits Cranial nerves: Yes CN's II-XII intact bilaterally Extrem General: Yes normal to inspection, Yes no clubbing, cyanosis or edema and Yes no calf tenderness Psych Appearance: grossly normal Speech and movement: Normal speech and movement present Assessment & Plan Assessment & Plan (1) Asthma exacerbation: Comment: TREATED FOR A MILD TO MODERATE ACUTE EXACERBATION AT [facility]. SHE WAS SEEN BY ME FOR ABOUT A WEEK AGO, AT PRESENT SHE HAS RECOVERED FROM ACUTE EXACERBATION, AND IS BACK TO HER BASELINE. HE IS GETTING BETTER. BUT STILL HAS RESIDUAL COUGH TX : FLOVENT 220 2 PUFFS B.I.D. GARGLE THE THROAT THOROUGHLY AFTER USING FLOVENT COMBIVENT RESPIMAT 1 INHALATION Q 6 HOURS ( T.I.D. ) SHE MAY START USING THE NEBULIZER WITH ALBUTEROL Q 4-6 HOURS P.R.N. FOR ACUTE EMERGENCY. WILL BE RECHECKED IN 1 MONTH. Code(s): J45.901 - Unspecified asthma with (acute) exacerbation (2) Morbid obesity: Comment: BMI 40. 8 She is encouraged to join weight management program, but has not been able to join any weight management program due to insurance issues, and language problem. Code(s): E66.01 - Morbid (severe) obesity due to excess calories (3) Restrictive lung disease: Comment: As per PFT in 2019 she has Moderate degree of restrictive lung disease most likely related to her obesity This will be helped by weight reduction. Code(s): J98.4 - Other disorders of lung Coding Level of Care Code Est Pt Level 3 (95452) Diagnoses Asthma exacerbation J45.901 Morbid obesity E66.01 Restrictive lung disease J98.4
== END 2023-07-15 15:21 | disposition home or self-care (01) ==
PROVIDERS: PCP Internal Medicine; Visit Provider Internal Medicine
DX: J45.901 Unspecified asthma with (acute) exacerbation (principal); E66.01 Morbid (severe) obesity due to excess calories; J98.4 Other disorders of lung
CPT/HCPCS: 99213

== ENCOUNTER → 2023-07-15 14:47 | Outpatient (BNVA) | payer OTHER, SELFPAY | PROVIDERS: PCP Internal Medicine; Visit Provider Internal Medicine | DX: J45.901 Unspecified asthma with (acute) exacerbation (principal); J98.4 Other disorders of lung; E66.01 Morbid (severe) obesity due to excess calories; Z68.41 Body mass index [BMI] 40.0-44.9, adult | CPT/HCPCS: 99212 ==

== ENCOUNTER 2023-07-22 12:13 | Outpatient (REF) | payer OTHER, SELFPAY ==
--- NOTE | 2023-07-22 12:19 | EMG_ITS ---
Chief complaint: Numbness on 4th and 5th digits, bilateral. History of diabetes and RA. Reason for referral: Evaluate for ulnar neuropathy versus Carpal Tunnel Syndrome Referred by: Ez CHILD Procedure done: Bilateral upper extremities NCS/EMG Precautions and/or limitations: Czech speaking, seen with circuit board repair technician. The limb temperature was monitored continuously and remained between 32-36 degrees C during the performance of the NCS. FINDINGS: Bilateral ulnar motor nerves showed normal distal latency, small amplitude and normal conduction velocity. Left worse than right. Bilateral ulnar sensory nerves showed normal peak latencies but small amplitude. All other nerves tested were within normal. Concentric needle EMG was performed in selected muscles of the bilateral upper extremities and cervical paraspinals. Study revealed did not reveal signs of electric abnormalities as shown in the table below. Nerve Conduction Studies Anti Sensory Summary Table ?Stim Site NR Onset (ms) Norm Onset (ms) Peak (ms) Norm Peak (ms) O-P Amp (?V) Norm O-P Amp Site1 Site2 Delta-0 (ms) Dist (cm) Jaxson (m/s) Norm Jaxson (m/s) Left Median Anti Sensory (2nd Digit) Wrist ? 2.4 3.2 <3.6 27.4 >10 Wrist 2nd Digit 2.4 14.0 58 Right Median Anti Sensory (2nd Digit) Wrist ? 2.5 3.0 <3.6 25.0 >10 Wrist 2nd Digit 2.5 14.0 56 Left Radial Anti Sensory (Thumb) Forearm ? 1.8 2.3 <3.1 4.1 Forearm Thumb 1.8 0.0 Left Ulnar Anti Sensory (5th Digit) Wrist ? 2.6 3.3 <3.7 24.1 >15.0 Wrist 5th Digit 2.6 14.0 54 Right Ulnar Anti Sensory (5th Digit) Wrist ? 2.8 3.5 <3.7 7.8 >15.0 Wrist 5th Digit 2.8 14.0 50 Motor Summary Table ?Stim Site NR Onset (ms) Norm Onset (ms) O-P Amp (mV) Norm O-P Amp iAmp (mV) Amp (1st) (%) Site1 Site2 Delta-0 (ms) Dist (cm) Jaxson (m/s) Norm Jaxson (m/s) Left Median Motor (Abd Poll Brev) Wrist ? 3.2 <3.9 7.7 >4.5 9.3 100.0 Elbow Wrist 3.5 19.0 54 >45 Elbow ? 6.7 5.3 6.8 68.8 Right Median Motor (Abd Poll Brev) Wrist ? 3.4 <3.9 6.1 >4.5 7.0 100.0 Elbow Wrist 3.2 19.0 59 >45 Elbow ? 6.6 5.7 6.7 93.4 Left Ulnar Motor (Abd Dig Minimi) Wrist ? 3.0 <3.0 1.0 >5 1.1 100.0 B Elbow Wrist 2.7 18.0 67 >45 B Elbow ? 5.7 0.8 1.2 80.0 A Elbow B Elbow 1.1 10.0 91 >45 A Elbow ? 6.8 0.1 1.1 10.0 Right Ulnar Motor (Abd Dig Minimi) Wrist ? 2.9 <3.0 4.0 >5 4.6 100.0 B Elbow Wrist 2.6 16.0 62 >45 B Elbow ? 5.5 4.0 4.6 100.0 A Elbow B Elbow 1.5 10.0 67 >45 A Elbow ? 7.0 3.8 4.5 95.0 EMG ?Side Muscle Nerve Root Ins Act Fibs Psw Amp Dur Poly Recrt Int Pat Comment Right 1stDorInt Ulnar C8-T1 Nml Nml Nml Nml Nml 0 Nml Complete Right FlexCarRad Median C6-7 Nml Nml Nml Nml Nml 0 Nml Complete Right Biceps Musculocut C5-6 Nml Nml Nml Nml Nml 0 Nml Complete Right Triceps Radial C6-7-8 Nml Nml Nml Nml Nml 0 Nml Complete Right Deltoid Axillary C5-6 Nml Nml Nml Nml Nml 0 Nml Complete Left 1stDorInt Ulnar C8-T1 Nml Nml Nml Nml Nml 0 Nml Complete Left FlexCarRad Median C6-7 Nml Nml Nml Nml Nml 0 Nml Complete Left Biceps Musculocut C5-6 Nml Nml Nml Nml Nml 0 Nml Complete Left Triceps Radial C6-7-8 Nml Nml Nml Nml Nml 0 Nml Complete Left Deltoid Axillary C5-6 Nml Nml Nml Nml Nml 0 Nml Complete Paraspinal EMG ?Side Muscle Nerve Root Ins Act Fibs Psw Comment Right Cervical Upper Rami Nml Nml Nml Right Cervical Mid Rami Nml Nml Nml Right Cervical Lower Rami Nml Nml Nml Left Cervical Upper Rami Nml Nml Nml Left Cervical Mid Rami Nml Nml Nml Left Cervical Lower Rami Nml Nml Nml IMPRESSION: 1. This is an abnormal study. 2. There is electrodiagnostic evidence for bilateral ulnar neuropathy, most likely at the elbow. 3. There is no electrodiagnostic evidence for median neuropathy, brachial plexopathy, or cervical radiculopathy. CLINICAL COMMENT: Patient complained of itchiness after the test. Patient denies allergy to adhesives or alcohol wipes. Non latex gloves were used and she has no allergy to these. No medications were given or injected during the test. She points to areas on her arms were she had the needle EMG done. I suspect it is a post procedure reaction but there was no rash. No signs of anaphylaxis. Patient was asked to wash her arms with soap and water. She was observed for several minutes. Thank you for your kind referral. Anastasia Naranjo MD, YANNI Board Certified, [place] Board [employer] and Rehabilitation (ABPMR) Board Certified, [place] Board of Electrodiagnostic Medicine (ABEM) CODIN [id number] x 2 MTDD
== END 2023-07-22 12:14 | disposition home or self-care (01) ==
LOC: HO.NEURO 12:13
PROVIDERS: PCP Internal Medicine; Visit Provider Physician Assistant
DX: R20.0 Anesthesia of skin (principal); R20.2 Paresthesia of skin
CPT/HCPCS: 95886; 95911

== ENCOUNTER → 2023-07-22 12:19 | Outpatient (BNV) | payer OTHER, SELFPAY | PROVIDERS: PCP Internal Medicine; Visit Provider Physical Medicine & Rehabilitation | DX: G56.23 Lesion of ulnar nerve, bilateral upper limbs (principal) | CPT/HCPCS: 95886; 95911 ==

== ENCOUNTER 2023-08-23 13:00 | Outpatient (REF) | payer OTHER, SELFPAY ==
--- NOTE | ~2023-08-23 | MR_ITS ---
EXAMINATION: MR LUMBAR SPINE WITHOUT CONTRAST CLINICAL INFORMATION: Vertebrogenic back pain. COMPARISON: Lumbar spine MRI 08/11/2022. TECHNIQUE: MRI of the lumbar spine was obtained using routine sequences without contrast. FINDINGS: There is transitional spinal anatomy at the lumbosacral junction with a subdural sacralization of the L5 vertebral segment. The lowest rib-bearing vertebral segment will be designated T12. There is grade 1 anterolisthesis of L4 on L5. Alignment is otherwise normal. Vertebral heights are preserved. No acute bone marrow signal changes. There are mixed degenerative endplate changes at multiple levels. There is loss of intervertebral disc height and T2 signal intensity at L3-L4 and L4-L5. There is disc desiccation at multiple additional levels without substantial loss of intervertebral disc height. The tip of the conus medullaris is located at L1. No mass effect on the conus. Visualized distal cord signal intensity is normal. At T12-L1 the annular contour is normal. No canal or neuroforaminal compromise. At L1-L2 there is a slightly bulging disc. Bilateral facet degenerative change. No canal stenosis. No mass effect on the traversing or foraminal nerve roots. At L2-L3 there is a bulging disc. Bilateral facet degenerative change. Moderate canal stenosis. No mass effect on the traversing or foraminal nerve roots. At L3-L4 there is a diffusely bulging disc. Bilateral facet degenerative change. Moderate canal stenosis. Mild mass effect on the right L3 foraminal nerve root. At L4-L5 there is a bulging disc. Bilateral facet degenerative change. Moderate canal stenosis. Subarticular zone narrowing causes abutment of both traversing L5 nerve roots. No foraminal nerve root compression. At L5-S1 there is no canal or neuroforaminal compromise. Limited visualization the retroperitoneal anatomy reveals no abnormal finding. Psoas and paraspinal muscle groups are symmetric. MR/MR lumbar spine wo con IMPRESSION: There is transitional spinal anatomy at the lumbosacral junction with partial sacralization of the L5 vertebral segment. The lowest rib-bearing vertebral segment will be designated T12. There is multilevel degenerative spondylosis of the lumbar spine with grade 1 anterolisthesis of L4 on L5 related to facet degenerative changes at this level. Moderate canal stenosis at L2-L3, L3-L4, and L4-L5. A bulging disc in conjunction with facet degenerative change at L3-L4 causes mild mass effect on the right L3 foraminal nerve root. There is also abutment of both traversing L5 nerve roots related to degenerative changes at L4-L5.
== END 2023-08-23 13:01 | disposition home or self-care (01) ==
LOC: HO.MRI 13:00
PROVIDERS: PCP Internal Medicine; Visit Provider Nurse Practitioner Family
DX: M54.51 Vertebrogenic low back pain (principal); M54.16 Radiculopathy, lumbar region; M54.9 Dorsalgia, unspecified; M51.36 Other intervertebral disc degeneration, lumbar region
CPT/HCPCS: 72148

== ENCOUNTER 2023-08-24 13:18 | Outpatient (AMB) | payer OTHER, SELFPAY ==
[2023-08-24 13:24] VITALS: BP 122/80; PULSE 70; O2SAT 99; BMI 40.8
--- NOTE | 2023-08-24 13:24 | A.OFFVIS_ITS ---
Intake Vital Signs 08/24/23 13:24 Height 5 ft 1 in Weight 216 lb BMI 40.8 BP 122/80 Blood Pressure Location Lt brachial Position Sitting Pulse 70 Pulse Source Pulse Oximeter Pulse Oximetry (%) 99 Oxygen Delivery Method Room Air Intake Visit Reasons: shortness of breath: 1 month f/u Intake Note: pt is here for 1 month follow up and states she has a chest tightness and back pain, when coughing she feels like she taste blood. Tile Conduit Layer Required: Yes Tile Conduit Layer Name: [id number] Allergies cyclobenzaprine [From Flexeril] Allergy (Intermediate, Verified 08/24/23 13:44) Dizziness orphenadrine [From Norflex] Allergy (Intermediate, Verified 08/24/23 13:44) Dizziness sarilumab [From Kevzara] Allergy (Intermediate, Verified 08/24/23 13:44) Rash Medication List - Last Reconciled 08/24/23 by Deena Grande MD abatacept (Orencia ClickJect) 125 mg subcut QWEEK albuterol sulfate 90 mcg/actuation 2 inhalations PO Q4H PRN albuterol sulfate 2.5 mg (3 mL) inhalation Q4-6H PRN 30 days blood sugar diagnostic (FreeStyle Lite Strips) Use 1 test strip once a day blood-glucose meter (FreeStyle Lite Meter kit) E11.9 ONCE A DAY celecoxib 100 mg PO BID PRN [cock up splint wear on the right wrist at night ] docusate sodium (Col-Rite) 100 mg PO BID fluticasone propionate 220 mcg/actuation (Flovent HFA) 2 puffs inhalation BID 30 days ipratropium-albuterol 20-100 mcg/actuation (Combivent Respimat) 2 puffs inhalation Q4H lancets (FreeStyle Lancets) Use 1 lancet once a day as needed lisinopril 5 mg PO DAILY 90 days metformin 1,000 mg PO BID 90 days tizanidine 2 mg PO BID PRN Do you need a note to return to daycare/school/sports/work: No HPI shortness of breath: 1 month f/u HPI Details 63 years old female, Croatian speaking, g rossly obese with BMI 40.8. Is seen for follow-up because she continues to have mild cough. The cough is quite frequent and due to irritation in her throat. She tries to cough up but difficult to bring up any phlegm. She is using Flovent 2 puffs b.i.d. and albuterol as needed. Claims that she gets short of breath on walking up hill or climbing stairs. She has chronic back pain and joint pains. . Remains slow and tired Claims that she sleeps okay. She is nonsmoker. [facility] Medical History Rheumatic fever TIA (transient ischemic attack) Right-sided back pain History of COVID-19 Asthma exacerbation Hospital discharge follow-up Sacroiliitis Renal calculi Costovertebral angle tenderness Burning with urination Disc degeneration, lumbar Spondylosis of cervical spine Spondylosis of lumbar spine Pleuritic pain Restrictive lung disease Morbid obesity Asthma Dyslipidemia Essential hypertension Vaginal modesta Seropositive rheumatoid arthritis Rheumatoid arthritis Diabetes Surgical History History of cholecystectomy Hx of colonoscopy (09/01/19) History of surgery on wrist Family History Father Diabetes mellitus Myocardial infarction Hypertension CVD (cardiovascular disease) Mother Diabetes mellitus CVD (cardiovascular disease) Sister No problems noted. Son No problems noted. Son No problems noted. Son No problems noted. Daughter Thyroiditis Daughter No problems noted. Daughter No problems noted. Daughter No problems noted. Daughter No problems noted. Social History Housing: Apartment Alcohol intake: never Patient Tobacco Use Status: Never used Tobacco e-Cigarette/Vaping Use: Never Used Second Hand Smoke Exposure: No service: No Current occupational status: disabled Sexual orientation: Straight/Heterosexual Gender identity: Female Cognitive needs: No Hearing needs: No Vision needs: No Female Reproductive History Menstrual Age of Menarche: 11 Date of menopause: 01/22/10 Review of Systems Const All systems reviewed & are unremarkable except as noted in HPI and below Eyes Reports no additional complaints ENT Reports nasal congestion (Mild off and on) Card Denies chest pain, Denies irregular heart rhythm and Denies leg edema Resp Reports as per HPI GI Reports constipation Reports other (Mild burning with urination) Musc Reports no additional complaints Skin/Breast Reports system reviewed and no additional complaints, except as documented Neuro Reports no additional complaints Psych Reports no additional complaints Physical Exam Vital Signs: Last Vital Signs Pulse 70 08/24/23 13:24 BP 122/80 08/24/23 13:24 Pulse Ox 99 08/24/23 13:24 Oxygen Delivery Method Room Air 08/24/23 13:24 BMI result Body Mass Index 40.8 Const General: comfortable, no acute distress, alert and awake Orientation/consciousness: patient oriented x3 HEENT Other: NASOPHARYNX IS CLEAR ON EXAMINATION, NO EXCESSIVE MUCUS IS NOTED. Head: Yes normal to inspection General nose exam: No nasal polyps present and No nasal discharge present Face and sinus: Yes sinuses nontender Mouth: oropharynx normal Throat: Yes posterior oropharynx normal Eyes General: appearance normal, both eyes and all related structures Neck Neck: Yes normal visual inspection, Yes no lymphadenopathy, Yes trachea midline and Yes no JVD Thyroid: Thyroid normal Chest Chest palpation & inspection: normal inspection of the chest, normal palpation of entire chest wall and no tenderness Resp Other: Percussion note is resonant, breath sounds equal on both sides, moderately distant , SHE CAN TAKE DEEP BREATHS WITHOUT MUCH COUGH,. Breath sounds are diminished over the basilar areas, otherwise both sides of the chest are clear. Cardio Palpation: normal PMI Rate: regular rate Rhythm: regular rhythm Heart sounds: no gallops and no murmurs GI Palpation (GI): Soft to palpation, nontender, No hepatosplenomegaly present and no masses Auscultation: normal bowel sounds Back/Spine/Pelvis Thoracic/Lumbar Spine: thoracic and lumbar spine normal to inspection, thoraco- lumbar ROM limited, thoraco-lumbar spasm and thoracic spinal tenderness Skin General skin exam: no rashes or lesions noted Neuro General: patient oriented x3 and no focal motor deficits Cranial nerves: Yes CN's II-XII intact bilaterally Extrem General: Yes normal to inspection, Yes no clubbing, cyanosis or edema and Yes no calf tenderness Psych Appearance: grossly normal Speech and movement: Normal speech and movement present Assessment & Plan Assessment & Plan (1) Morbid obesity: Comment: BMI 40. 8 She is encouraged to join weight management program, but has not been able to join any weight management program due to insurance issues, and language problem. Code(s): E66.01 - Morbid (severe) obesity due to excess calories (2) Restrictive lung disease: Comment: As per PFT in 2019 she has Moderate degree of restrictive lung disease most likely related to her obesity This will be helped by weight reduction. Code(s): J98.4 - Other disorders of lung (3) Asthma: Comment: ASTHMA/ REACTIVE AIRWAYS , CAUSING COUGH . TX : FLOVENT-220 2 PUFFS B.I.D.. and ALBUTEROL HFA 2 PUFFS Q 4-6 HOURS P.R.N.. SHE NEEDS TO HAVE COMPLETE PULMONARY FUNCTION TEST AGAIN .WHICH IS BEING ORDERED RE-CHECK IN 2 MONTHS Code(s): J45.909 - Unspecified asthma, uncomplicated (4) Pulmonary nodules: Comment: CT scan of the chest in December 2021 showed, bilateral pulmonary nodules, But 1 in the right upper lobe 6 mm in size. Patient is nonsmoker, and has an average risk factor. REASSURED AND EXPLAINED ABOUT THE NODULE. LAST CT SCAN OF THE CHEST ON FEBRUARY 17, AGAIN SHOWED PULMONARY NODULE 6 MM IN THE RIGHT UPPER LOBE, OTHER NONSPECIFIC OPACITIES HAD CLEARED. SHE IS A NONSMOKER, THE NODULE IS MOST LIKELY BENIGN. BUT TO BE ON THE SAFE SIDE WE WILL GET ANOTHER CT SCAN IN 1 YEARS INTERVAL. Code(s): R91.8 - Other nonspecific abnormal finding of lung field (5) Cough: Comment: Her main concern is ongoing cough and feeling of congestion in her upper chest for the last few months. I think cough is secondary to reactive airways, TX : FOR INCREASED COUGH WHICH MAY BE DUE TO ACUTE BRONCHITIS, OK TO TAKE ROBITUSSIN 2 TSF TID . OR USE COUGH DROPS Code(s): R05.9 - Cough, unspecified Orders: Orders PFT pulmonary function test Today J45.909 - Unspecified asthma, uncomplicated, J98.4 - Other disorders of lung, R05.9 - Cough, unspecified Coding Level of Care Code Est Pt Level 3 (48458) Diagnoses Morbid obesity E66.01 Restrictive lung disease J98.4 Asthma J45.909 Pulmonary nodules R91.8 Cough R05.9
== END 2023-08-24 13:43 | disposition home or self-care (01) ==
PROVIDERS: PCP Internal Medicine; Visit Provider Internal Medicine
DX: E66.01 Morbid (severe) obesity due to excess calories (principal); J98.4 Other disorders of lung; J45.909 Unspecified asthma, uncomplicated; R91.8 Other nonspecific abnormal finding of lung field; R05.9 Cough, unspecified
CPT/HCPCS: 99213

== ENCOUNTER → 2023-08-24 13:18 | Outpatient (BNVA) | payer OTHER, SELFPAY | PROVIDERS: PCP Internal Medicine; Visit Provider Internal Medicine | DX: J45.909 Unspecified asthma, uncomplicated (principal); J98.4 Other disorders of lung; R91.8 Other nonspecific abnormal finding of lung field; R05.9 Cough, unspecified; E66.01 Morbid (severe) obesity due to excess calories; Z68.41 Body mass index [BMI] 40.0-44.9, adult | CPT/HCPCS: 99212 ==

== ENCOUNTER 2023-08-30 15:32 | Outpatient (REF) | payer OTHER, SELFPAY | END 2023-08-30 15:33 | disposition home or self-care (01) | LOC: HO.RESP 15:32 | PROVIDERS: PCP Internal Medicine; Visit Provider Internal Medicine | DX: R05.9 Cough, unspecified (principal); J98.4 Other disorders of lung; J45.909 Unspecified asthma, uncomplicated | CPT/HCPCS: 94010; 94727; 94729 ==

== ENCOUNTER 2023-08-31 13:17 | Outpatient (REF) | payer OTHER, SELFPAY ==
--- NOTE | ~2023-08-31 | XR_ITS ---
EXAMINATION: XR CHEST CLINICAL INFORMATION: Cough COMPARISON: CT chest of 02/17/2023. Chest of 09/15/2023. TECHNIQUE: 2 views of the chest were obtained. FINDINGS: There is no gross pneumothorax. Lung volumes are low. Borderline enlarged cardiac silhouette. Degenerative changes in the thoracic spine. No pleural effusion. No focal consolidation to suggest pneumonia. XR/XR chest 2V IMPRESSION: Borderline enlarged cardiac silhouette. No evidence of pneumonia.
== END 2023-08-31 13:18 | disposition home or self-care (01) ==
LOC: HO.XRAY 13:17
PROVIDERS: PCP Internal Medicine; Visit Provider Nurse Practitioner Family
DX: R05.9 Cough, unspecified (principal); M54.16 Radiculopathy, lumbar region; M51.36 Other intervertebral disc degeneration, lumbar region; M54.51 Vertebrogenic low back pain
CPT/HCPCS: 71046; 99212

== ENCOUNTER 2023-08-31 13:17 | Outpatient (AMB) | payer OTHER, SELFPAY ==
[2023-08-31 13:25] VITALS: BP 201/92; BP 215/86; PULSE 82; O2SAT 98; BMI 40.7
--- NOTE | 2023-08-31 13:25 | A.OFFVIS_ITS ---
Intake Vital Signs 08/31/23 13:25 08/31/23 13:25 Height 5 ft 1 in Weight 215 lb 6 oz BMI 40.7 BP 215/86 H 201/92 H Blood Pressure Location Rt brachial Lt brachial Position Sitting Sitting Pulse 82 Pulse Source Pulse Oximeter Pulse Oximetry (%) 98 Oxygen Delivery Method Room Air Intake Visit Reasons: MRI follow up/confirmed Intake Note: Pain today 06/20 Thread Winder Automatic Required: Yes Thread Winder Automatic Language: Homebirth Midwife Name: son Accompanied by: Son Allergies cyclobenzaprine [From Flexeril] Allergy (Intermediate, Verified 08/31/23 13:26) Dizziness orphenadrine [From Norflex] Allergy (Intermediate, Verified 08/31/23 13:26) Dizziness sarilumab [From Kevzara] Allergy (Intermediate, Verified 08/31/23 13:26) Rash HPI HPI Comments History of Present Illness Details Patient presents today for follow up to review recent lumbar spine MRI results. Patient reports she was evaluated in [facility] on 06/27/23 with asthma exacerbation and this has been better but continue to experience productive and non productive cough with mucous secretions. Coughing exacerbates her right sided mid thoracic pain. She reports her lower back and leg symptoms have decreased. She has history of stable right lung pulmonary nodule and is followed by [facility] Pulmonology services. Patient was also evaluated by [facility] 2 months ago and was deemed non surgical at this time. Her last injection bilateral L5-S1 TFESI on 03/05/23 provided her temporary symptom improvement in her legs. Denies any fever, dizziness, dyspnea, hemoptysis, weakness, bladder or bowel dysfunction or saddle anesthesia. PRIOR: Patient present today for follow up for worsening of low back pain with right sided radiculopathy symptoms. She reports mild to moderate pain relief in March and April since previous injection in February, B/L L5-S1 TFESI. Denies any recent trauma, injury or falls. She ambulates with slow antalgic gait with mild limping to shift her weight to the left side. Patient reports neck through lower back pain that travels into her right buttock, thigh and into right calf and left heel and foot with numbness, tingling and occasional weakness with prolonged walking. She also reports severe back pain with bending forward or lifting and avoids bending down as she is not able to get up from bending due to severe radiculopathy. Patient reports she is able to tolerate 20 minutes of walking or less before she needs to rest due to pain increase. Patient also has seropositive rheumatoid arthritis and states widespread joint pain as well. She is no longer interested with injections, especially cortisone injections due to diabetes and as well as low efficacy of injections in the past. Most recent A1C was 7.0. Patient rates her pain 9/10. Denies any fever, dizziness, chest pain, shortness of breath, foot drop, bladder or bowel incontinence, or saddle anesthesia. PRIOR: Patient presents today to assess response to B/L L5-S1 TFESI on 02/19/[address] Richardson. Patient reports 50% pain relief in her lower back and 90% pain relief for her radicular pain. She denies any numbness, tingling, weakness or bilateral leg pain today and reports these symptoms have resolved since injection. Unfortunately for her axial low back pain, she has tried Sprint PNS trial with minimal pain relief and therefore requested us to removed it earlier in the PNS therapy. Patient rates her axial low back pain at 9/10 worse with movements, extension or her daily activities. She does have significant lumbar degenerative disc disease with S-shaped thoracolumbar scoliotic curvature, multilevel ligamentum flavum thickening, grade 1 degenerative spondylolisthesis at L5-S1, multilevel discogenic and facetogenic degenerative changes, as well as neuroforaminal and central canal stenosis. She denies any fever, bladder or bowel incontinence or saddle anesthesia. Patient also reports history of kidney stones and significant right sided flank pain with CVA tenderness on the right. She denies any fever, hematuria but reports significant pain with urination. She requests referral to Urology services. PRIOR: Patient is a pleasant 62 years old female status post Unilateral Right L1 and L4 Sprint PNS on 11/19/[address] Richardson. Patient reports less than 20% pain relief and requests me to take Sprint leads out. She reports minimal to no improvement with her daily activities, social interactions, mobility or sleep. Patient was seen in our dressing change and wound check on 11/23/21 and 12/02/22 and has reported similar complaints. Minimal paresthesia at the back at 75 and 78 stimulation. Patient reports uncomfortable sensations with higher stimulation and no pain relief. The dressing was removed today. Leads insertion sites look clean, dry, intact, no redness, no swelling, no pathological discharge. Area was cleansed with Chloraprep. Leads pulled with tips intact and the area was cleansed again with Chloraprep, applied Bacitracin and covered it with gauze and Tegaderm film dressing. Patient is also suffers facetogenic, discogenic and SIJ pain generators. She requests a therapeutic injection for her radicular pain. She reports an increase in lower back pain that radiates to both of her lower extremities posteriorly with numbness and tingling in her feet and shins bilaterally. Reports right lower extremity weakness with ambulation. Patient reports she received KISHAN injections in [place] and these provided her significant pain relief. Her most recent A1C was 7.1 on 10/16/22. We reviewed lumbar spine MRI in greater detail with the patient and her son. I have explained to patient that due to significant multilevel ligamentum flavum thickening, therapeutic injections may be less effective. Given BMI >41, she is not a good candidate for MILD procedure. Patient reports she is trying to lose weight with diet and diabetic medications but has been having difficulty walking due to axial lower back pain with radiculopathy. She denies any fever, abdominal or groin pain, bladder or bowel incontinence or saddle anesthesia. She was seen in our ER department on 12/07/22 for right sided abdominal pain with a benign examination. CT scan of abdomen and pelvis showed hepatomegaly and hepatic steatosis. Questionable mild nodularity of the liver contour which could be seen with cirrhosis. Moderate degree of colonic and rectal stool burden. No evidence of bowel obstruction. Normal appendix. No acute or aggressive appearing osseous abnormalities. Degenerative changes of the spine. Again noted increased sclerosis with subchondral cystic changes in the pubic symphysis, suggesting osteitis pubis or degenerative changes, slightly increased since 2019. Patient reports she takes Milk of Magnesia for constipation with good results. PRIOR Dr. Richardson 10/28/22: Ms. Matias is on the phone today to discuss the results unilateral right diagnostic L2-L3 L4 does ramus L5 medial branch block. She reports 100% pain relief in the area of the injections. She reports better mobility better social interactions better activities of daily living. She reports that upper portion of her pain in the upper lumbar lower thoracic spine remains with pain. I offered her sprint PNS to treat her condition. I am planning to insert L2 and L5 possibly L1 and L4 right stimulation I warned her that this procedure she needs to go to will be under minimal sedation. I also offered her radiofrequency ablation but in her case of widespread pain I believe that sprint is much better procedure to alleviate her pain. Prior:. She has multiple changes on the MRI is dictated as below. Again she was interrogated about her pain. She insists that her pain is on the right side of the lumbar spine and radiates to the right thigh to the level of the knee but not below that level. She reports that flexing backwards aggravates her pain.. She reports that this pain started over 3 years ago. I was under impression that her pain is coming from sacroiliac joints . she reports that the her pain is getting worse when she is trying to stretch her leg on the right. I discussed the situation with her. She is convinced that there is some changes in her lumbar spine which are the cause of the pain. I canceled the trial of peripheral nerve stimulation of sacroiliac joint innervation she was scheduled previously. The trial was based on the injections which were performed before into her sacroiliac joints and gave her significant pain relief. However she received steroid with this injection and she had her blood sugar elevated. I offered her today to perform diagnostic sacroiliac joint injection however patient adamantly refused and insisted on going for the MRI. We received information from [place] about injection she received there. It was unknown level epidural steroid injection during which she received 80 mg of Kenalog. Given 80 mg of Kenalog alone anywhere can relieve any kind of pain. We performed therapeutic bilateral sacroiliac joint injection she reports 45 days of excellent pain relief she reports better mobility better social interactions better activities of daily living. Her past medical history significant for rheumatoid arthritis she is on Orencia, she also suffers from diabetes and hypertension, she has severe arthralgia. She also reports that she has some kidney damage from the medication she receives for rheumatoid arthritis. She is also suffering from truncal obesity. She is morbidly obese. She is also diabetic and takes diabetic medication [facility] Medical History Rheumatic fever TIA (transient ischemic attack) Right-sided back pain History of COVID-19 Asthma exacerbation Hospital discharge follow-up Sacroiliitis Renal calculi Costovertebral angle tenderness Burning with urination Disc degeneration, lumbar Spondylosis of cervical spine Spondylosis of lumbar spine Pleuritic pain Restrictive lung disease Morbid obesity Asthma Dyslipidemia Essential hypertension Vaginal modesta Seropositive rheumatoid arthritis Rheumatoid arthritis Diabetes Surgical History History of cholecystectomy Hx of colonoscopy (09/01/19) History of surgery on wrist Family History Father Diabetes mellitus Myocardial infarction Hypertension CVD (cardiovascular disease) Mother Diabetes mellitus CVD (cardiovascular disease) Sister No problems noted. Son No problems noted. Son No problems noted. Son No problems noted. Daughter Thyroiditis Daughter No problems noted. Daughter No problems noted. Daughter No problems noted. Daughter No problems noted. Housing: Apartment Alcohol intake: never Patient Tobacco Use Status: Never used Tobacco e-Cigarette/Vaping Use: Never Used Second Hand Smoke Exposure: No service: No Current occupational status: disabled Sexual orientation: Straight/Heterosexual Gender identity: Female Cognitive needs: No Hearing needs: No Vision needs: No Female Reproductive History Menstrual Age of Menarche: 11 Date of menopause: 01/22/10 Review of Systems Const All systems reviewed & are unremarkable except as noted in HPI and below Physical Exam Vital Signs: Last Vital Signs Pulse 82 08/31/23 13:25 BP 201/92 H 08/31/23 13:25 Pulse Ox 98 08/31/23 13:25 Oxygen Delivery Method Room Air 08/31/23 13:25 BMI result Body Mass Index 40.7 General: Appears afebrile. Alert and oriented. Mood and affect appropriate. Follows and participates in conversation appropriately. Respiratory effort is unlabored. Non productive cough. Able to transition from sit to stand unassisted. Uses cane with ambulation. Ambulates with bilaterally normal heel strike and toe off. Resp Effort & Inspection: normal respiratory effort, able to speak in complete sentences, no audible wheezes, no cough and symmetric chest movement GI Inspection: Yes normal to inspection and Yes obesity Palpation (GI): Soft to palpation and nontender Back/Spine/Pelvis Other: Antalgic gait with no limping. Lumbar extension reproduces moderate pain and flexion reproduces mild pain. Demonstrates 5/5 left and 4/5 right strength of quadriceps bilaterally as well as flexion/dorsiflexion of bilateral feet against resistance. 2+ pedal pulses bilaterally. Straight leg rise with dorsiflexion positive on the right. Diminished patellar and achilles reflexes bilaterally. Facet loading test positive bilaterally. Chacho's test reproduces lateral hip pain and mild low back pain. Cervical Spine: cervical muscular tenderness and No Cervical spine tenderness Thoracic/Lumbar Spine: thoracic and lumbar spine normal to inspection, No Thoracic/lumbar spine scar(s), Lasegue's sign positive on the right and localized, pain with thoraco-lumbar ROM, paraspinal muscle tenderness, thoraco- lumbar ROM limited, No thoracic spinal tenderness and lumbar spinal tenderness (L4-S1) Pelvis: buttock tenderness (right worse than the left) bilaterally Sacroiliac joints: bilaterally tender to palpation Results Reviewed Results Reviewed: MR LUMBAR SPINE WITHOUT CONTRAST 08/23/23 CLINICAL INFORMATION: Vertebrogenic back pain. COMPARISON: Lumbar spine MRI 08/11/2022. TECHNIQUE: MRI of the lumbar spine was obtained using routine sequences without contrast. FINDINGS: There is transitional spinal anatomy at the lumbosacral junction with a subdural sacralization of the L5 vertebral segment. The lowest rib-bearing vertebral segment will be designated T12. There is grade 1 anterolisthesis of L4 on L5. Alignment is otherwise normal. Vertebral heights are preserved. No acute bone marrow signal changes. There are mixed degenerative endplate changes at multiple levels. There is loss of intervertebral disc height and T2 signal intensity at L3-L4 and L4-L5. There is disc desiccation at multiple additional levels without substantial loss of intervertebral disc height. The tip of the conus medullaris is located at L1. No mass effect on the conus. Visualized distal cord signal intensity is normal. At T12-L1 the annular contour is normal. No canal or neuroforaminal compromise. At L1-L2 there is a slightly bulging disc. Bilateral facet degenerative change. No canal stenosis. No mass effect on the traversing or foraminal nerve roots. At L2-L3 there is a bulging disc. Bilateral facet degenerative change. Moderate canal stenosis. No mass effect on the traversing or foraminal nerve roots. At L3-L4 there is a diffusely bulging disc. Bilateral facet degenerative change. Moderate canal stenosis. Mild mass effect on the right L3 foraminal nerve root. At L4-L5 there is a bulging disc. Bilateral facet degenerative change. Moderate canal stenosis. Subarticular zone narrowing causes abutment of both traversing L5 nerve roots. No foraminal nerve root compression. At L5-S1 there is no canal or neuroforaminal compromise. Limited visualization the retroperitoneal anatomy reveals no abnormal finding. Psoas and paraspinal muscle groups are symmetric. IMPRESSION: There is transitional spinal anatomy at the lumbosacral junction with partial sacralization of the L5 vertebral segment. The lowest rib-bearing vertebral segment will be designated T12. There is multilevel degenerative spondylosis of the lumbar spine with grade 1 anterolisthesis of L4 on L5 related to facet degenerative changes at this level. Moderate canal stenosis at L2-L3, L3-L4, and L4-L5. A bulging disc in conjunction with facet degenerative change at L3-L4 causes mild mass effect on the right L3 foraminal nerve root. There is also abutment of both traversing L5 nerve roots related to degenerative changes at L4-L5. CT/CT chest w IV con 02/17/23 OSSEOUS STRUCTURES: Degenerative changes of the spine. IMPRESSION: Stable 6 mm right pulmonary nodule adjacent to the minor fissure probably representing a subpleural lymph node. Question mild interstitial lung disease. Assessment & Plan Assessment & Plan (1) Lumbar radiculopathy: Code(s): M54.16 - Radiculopathy, lumbar region (2) Disc degeneration, lumbar: Code(s): M51.36 - Other intervertebral disc degeneration, lumbar region (3) Vertebrogenic low back pain: Code(s): M54.51 - Vertebrogenic low back pain (4) Thoracic spine pain: Code(s): M54.6 - Pain in thoracic spine (5) Muscle spasm of back: Code(s): M62.830 - Muscle spasm of back (6) Lumbar spondylosis: Code(s): M47.816 - Spondylosis without myelopathy or radiculopathy, lumbar region Plan Patient continues to endorse pain on the right in L5-S1 distribution but states symptoms have been mild. She is more concerned today about her right mid thoracic back pain with persistent cough and recent ER visit on 06/27/23 due to asthma exacerbation. Patient is also has right pulmonary nodule and is followed by Pulmonology services for this. She recently completed neurosurgical evaluation and was deemed non surgical. Patient was reminded to complete pending thoracic spine xray and will follow up with CXR for persistent cough. Patient is aware to follow up with Pulmonology services if worsening of cough symptoms. Continue Tylenol and Celebrex as needed and continue to monitor for any side effects. Patient is aware to call if pain worsens or if she develops any red flag symptoms to seek emergency care. Patient denies any cauda equina syndrome symptoms at this time. All questions were answered. Follow up for xry results and sooner as needed. Coding Level of Care Code Est Pt Level 4 (37831) Diagnoses Lumbar radiculopathy M54.16 Disc degeneration, lumbar M51.36 Vertebrogenic low back pain M54.51 Thoracic spine pain M54.6 Muscle spasm of back M62.830 Lumbar spondylosis M47.816
== END 2023-08-31 13:45 | disposition home or self-care (01) ==
PROVIDERS: PCP Internal Medicine; Visit Provider Nurse Practitioner Family
DX: M54.16 Radiculopathy, lumbar region (principal); M54.51 Vertebrogenic low back pain; M54.6 Pain in thoracic spine; M62.830 Muscle spasm of back; M47.816 Spondylosis without myelopathy or radiculopathy, lumbar region
CPT/HCPCS: 99214

== ENCOUNTER 2023-09-01 07:39 | Outpatient (REF) | payer OTHER, SELFPAY ==
[2023-09-01 08:05] LABS: MANUAL DIFF FLAG NO
[2023-09-01 08:21] LABS: Basophils Percent Auto 0.7 % (0-2); Eosinophils Absolute Auto 0.6 X10*3/uL (0.0-0.4); Eosinophils Percent Auto 9.2 % (0-4); Hematocrit 40.9 % (37.0-47.0); Hemoglobin 14.1 g/dl (12.0-16.0); Imm Gran Abs Auto 0.02 X10*3/uL (0.00-0.03); Imm Gran Pct Auto 0.3 % (0.0-0.4); Lymphocytes Absolute Auto 1.9 X10*3/uL (1.2-4.9); Lymphocytes Percent Auto 30.3 % (20-40); Mean Corpuscular HGB Conc 34.5 g/dl (31.0-35.0); Mean Platelet Volume 12.1 fL (9.4-12.3); Monocytes Absolute Auto 0.4 X10*3/uL (0.1-1.2); Monocytes Percent Auto 6.6 % (2-11); Neutrophils Absolute Auto 3.2 x10*3/uL (2.0-8.3); Neutrophils Percent Auto 52.9 % (45-73); Platelet Count 161 X10*3/uL (160-400); Red Cell Distribution Width 11.9 % (11.0-16.0); White Blood Count 6.1 X10*3/uL (4.8-10.8)
[2023-09-01 08:52] LABS: Alanine Aminotransferase 32 U/L (0-31); Albumin Level 3.7 g/dL (3.5-5.0); Alkaline Phosphatase 109 U/L (39-117); Anion Gap 10 (12-20); Aspartate Amino Transferase 24 U/L (5-31); Bilirubin Total 0.8 mg/dL (0.0-1.0); Blood Urea Nitrogen 12 mg/dL (9-16); C Reactive Protein 1.15 mg/dL (< or = 0.50); Calcium 9.1 mg/dL (8.4-10.2); Carbon Dioxide 28 mmol/L (22-29); Chloride 109 mmol/L (96-108); Cholesterol 152 mg/dL (<200); Estimated Glomerular Filt Rate > 60; Glucose Fasting 262 mg/dL (60-99); Glucose Random 261 mg/dL (60-115); HDL Cholesterol 39 mg/dL (>40); LDL Cholesterol Calculated 97 mg/dL (<100); Potassium 3.9 mmol/L (3.3-5.1); Sodium 143 mmol/L (135-145); Total Protein 6.7 g/dL (6.5-8.0); Triglycerides 82 mg/dL (<150)
[2023-09-01 09:00] LABS: Erythrocyte Sedimentation Rate 23 MM/HR (0-20)
[2023-09-01 09:02] LABS: HBc Num1 0.16 S/CO (0.00-0.79); HBsAGNum1 0.28 S/CO (0.00-0.99); Hepatitis A Antibody IgM 0.35 Index (0-0.79); Hepatitis B Core Antibody Nonreactive (Nonreactive); Hepatitis B Surface Antigen Negative (Negative); ~HepC Num1 0.17 S/CO (0.00-0.79); ~Hepatitis A Antibody IgM Nonreactive (Nonreactive); ~Hepatitis B Surface Antibody NONREACTIVE (Nonreactive); ~Hepatitis C Antibody Nonreactive (Nonreactive)
[2023-09-01 09:24] LABS: Creatinine Urine 134.33 mg/dL; Microalbum/Creatinine Ratio Ur 23.8 ug/mg cr (<30)
[2023-09-03 10:23] LABS: TS Negative Control Passed; TS Panel A 0; TS Panel B 2; TS Positive Control Passed; TSpotTB Negative (Negative)
== END 2023-09-01 07:40 | disposition home or self-care (01) ==
LOC: HO.LAB 07:39
PROVIDERS: Absent Provider Student in an Organized Health Care Education/Training Program; PCP Internal Medicine; Visit Provider Internal Medicine
DX: Z11.7 Encounter for testing for latent tuberculosis infection (principal); Z11.59 Encounter for screening for other viral diseases; E78.5 Hyperlipidemia, unspecified; E55.9 Vitamin D deficiency, unspecified; E11.65 Type 2 diabetes mellitus with hyperglycemia; M05.9 Rheumatoid arthritis with rheumatoid factor, unspecified
CPT/HCPCS: 36415; 80053; 80061; 82043; 82306; 82570; 85025; 85652; 86140; 86481; 86704; 86706; 86709; 86803; 87340

== ENCOUNTER 2023-09-22 14:02 | Outpatient (AMB) | payer OTHER, SELFPAY ==
--- NOTE | 2023-09-22 14:08 | A.OFFVIS_ITS ---
Intake Vital Signs 09/22/23 14:14 Height 5 ft 1 in Weight 217 lb 13.067 oz BMI 41.2 BP 118/72 Blood Pressure Location Rt brachial Position Sitting Pulse 85 Pulse Source Pulse Oximeter Temp 97 F Temp Source Skin Pulse Oximetry (%) 99 Oxygen Delivery Method Room Air Intake Visit Reasons: RA Intake Note: Patient last seen 06/01/23, presents today for follow up and test results. Refresh Technician Required: Yes Refresh Technician Language: Warp Drawer Name: shin avila # [id number] Information Interpreted: clinical only Accompanied by: Self / Same As Patient Allergies cyclobenzaprine [From Flexeril] Allergy (Intermediate, Verified 09/22/23 14:12) Dizziness orphenadrine [From Norflex] Allergy (Intermediate, Verified 09/22/23 14:12) Dizziness sarilumab [From Kevzara] Allergy (Intermediate, Verified 09/22/23 14:12) Rash Medication List - Last Reconciled 09/22/23 by Ely Coley MD abatacept (Orencia ClickJect) 125 mg subcut QWEEK albuterol sulfate 90 mcg/actuation 2 inhalations PO Q4H PRN albuterol sulfate 2.5 mg (3 mL) inhalation Q4-6H PRN 30 days blood sugar diagnostic (FreeStyle Lite Strips) Use 1 test strip once a day blood-glucose meter (FreeStyle Lite Meter kit) E11.9 ONCE A DAY celecoxib 100 mg PO BID PRN [cock up splint wear on the right wrist at night ] docusate sodium (Col-Rite) 100 mg PO BID fluticasone propionate 220 mcg/actuation (Flovent HFA) 2 puffs inhalation BID 30 days ipratropium-albuterol 20-100 mcg/actuation (Combivent Respimat) 2 puffs inhalation Q4H lancets (FreeStyle Lancets) Use 1 lancet once a day as needed lisinopril 5 mg PO DAILY 90 days metformin 1,000 mg PO BID 90 days tizanidine 2 mg PO BID PRN HPI HPI Comments History of Present Illness Details 63yoF presents for follow-up of Seroposi tive Rheumatoid Arthritis (RF++ CCP++). Patient continues on Orencia which she is tolerating without issue. She states that her rheumatoid arthritis has been stable. She denies joint pain or synovitis in her hands or feet. Her main complaint is right chest wall pain. She follows up with Pulmonary for pulmonary nodules. [facility] Medical History Rheumatic fever TIA (transient ischemic attack) Right-sided back pain History of COVID-19 Asthma exacerbation Hospital discharge follow-up Sacroiliitis Renal calculi Costovertebral angle tenderness Burning with urination Disc degeneration, lumbar Spondylosis of cervical spine Spondylosis of lumbar spine Pleuritic pain Restrictive lung disease Morbid obesity Asthma Dyslipidemia Essential hypertension Vaginal modesta Seropositive rheumatoid arthritis Rheumatoid arthritis Diabetes Surgical History History of cholecystectomy Hx of colonoscopy (09/01/19) History of surgery on wrist Family History Father Diabetes mellitus Myocardial infarction Hypertension CVD (cardiovascular disease) Mother Diabetes mellitus CVD (cardiovascular disease) Sister No problems noted. Son No problems noted. Son No problems noted. Son No problems noted. Daughter Thyroiditis Daughter No problems noted. Daughter No problems noted. Daughter No problems noted. Daughter No problems noted. Social History Housing: Apartment Alcohol intake: never Patient Tobacco Use Status: Never used Tobacco e-Cigarette/Vaping Use: Never Used Second Hand Smoke Exposure: No service: No Current occupational status: disabled Sexual orientation: Straight/Heterosexual Gender identity: Female Cognitive needs: No Hearing needs: No Vision needs: No Female Reproductive History Menstrual Age of Menarche: 11 Date of menopause: 01/22/10 Review of Systems [facility] [place] Reports back pain Physical Exam Vital Signs: Last Vital Signs Temp 97 F 09/22/23 14:14 Pulse 85 09/22/23 14:14 BP 118/72 09/22/23 14:14 Pulse Ox 99 09/22/23 14:14 Oxygen Delivery Method Room Air 09/22/23 14:14 BMI result Body Mass Index 41.2 Const General: cooperative, healthy appearing and comfortable Nutritional Appearance: obese morbidly obese Orientation/consciousness: patient oriented x3 Limitations: no limitations HEENT Head: Yes normocephalic and Yes atraumatic Mouth: moist mucous membranes Resp Effort & Inspection: normal respiratory effort and able to speak in complete sentences Neuro General: patient oriented x3 Extrem Other: Right wrist with significantly limited flexion and extension. (chronic) Few flexion contractures of right hand fingers No active synovitis Right foot with large bunion and fibular deviation of some toes Negative MTP squeeze test bilaterally Results Reviewed Results Reviewed: Laboratory Tests 10/16/22 02/17/23 02/17/23 13:25 06:48 06:48 WBC 8.0 02/17/23 06:48 Date of Service: 02/17/23 Procedure(s): CT chest w IV con Accession Number(s): [id number] EXAMINATION: CT CHEST WITH CONTRAST CLINICAL INFORMATION: Other nonspecific abnormal finding of lung field? COMPARISON: Previous chest CT November 2022 TECHNIQUE: Multidetector volumetric CT imaging of the chest was obtained after the administration of 50 mL of Omnipaque 350 intravenous contrast without immediate adverse reactions. Axial MIP volume rendering provided. Sagittal and coronal reformatted images were obtained. This CT examination was performed using dose optimization techniques as appropriate, variously including the following: *Automated exposure control *Adjustment of mA and/or kV according to patient size (this includes techniques or standardized protocols for targeted exams where dose is matched to indication/reason for exam; i.e. extremities or head) *Use of iterative reconstruction technique DLP: 187 mGy-cm FINDINGS: LUNGS: 6 mm right peripheral or subpleural nodule adjacent to the minor fissure axial image 81 series 5 is stable.? There are increased peripheral reticular markings seen, greatest in the right middle lobe and the dependent bilateral lower lobes. Similar to November 2022 exam and questionable mild interstitial lung disease. There are scattered small areas of increased attenuation in the lungs. This is seen both centrally and peripherally and may have a peribronchial distribution. Current is questionable for airways disease versus changes related to interstitial lung disease. Clinical correlation recommended. MEDIASTINUM: Small mediastinal and bilateral hilar lymph nodes. No enlarged lymph nodes. Upper normal heart size. No pericardial effusion. Normal caliber thoracic aorta.? PLEURA: There is no pleural effusion. No pleural mass or thickening.? AXILLA: Small bilateral axillary lymph nodes. No enlarged axillary lymph nodes or chest wall mass.? UPPER ABDOMEN: Fatty liver.? OSSEOUS STRUCTURES: Degenerative changes of the spine. CT/CT chest w IV con IMPRESSION: Stable 6 mm right pulmonary nodule adjacent to the minor fissure probably representing a subpleural lymph node. Question mild interstitial lung disease. Date of Service: 06/08/22 Procedure(s): XR hand LT min 3V Accession Number(s): [id number] EXAMINATION: XR BILATERAL HANDS XR BILATERAL FEET CLINICAL INFORMATION: Pain in the joints.? COMPARISON: None.? TECHNIQUE: 3 views of each foot and 3 views of each hand.? FINDINGS: LEFT FOOT: There is loss of MTP joint space in the 2nd through 5th digits and loss of PIP joints as well. No bony erosive or periarticular spurring. There is a small calcaneal heel enthesophyte.? The ankle mortise and subtalar joints are normal. The soft tissues are normal. RIGHT FOOT: There is moderate hallux valgus deformity at the 1st MTP joint. Mild subluxation is seen at the MTP joints of 2nd through 5th digits. No bony erosive changes. Mild loss of PIP and DIP joint spaces is seen. The ankle mortise and subtalar joints are normal. There is a small calcaneal heel enthesophyte. RIGHT HAND: There is loss of PIP and DIP joint spaces. No periarticular spurring. The MTP joint space is preserved. There is fusion of some of the carpal bones. There is a negative ulnar variance. No acute fracture is seen. LEFT HAND: There is severe loss of the 2nd MCP joint space and mild loss of PIP and DIP joint spaces. There is mild negative ulnar variance with periarticular spurring of the radioulnar joint. No acute fracture is seen.? XR/XR hand LT min 3V IMPRESSION: Degenerative osteoarthritic changes of the PIP and DIP joints in all digits of both hands. ? There is severe loss of the 2nd MCP joint space in the left hand. There is periarticular spurring of the radioulnar joint with negative ulnar variance in both hands. No acute fracture is seen. ? There is subluxation of the 2nd through 5th MTP joints and moderate hallux valgus deformity of the 1st MTP joint, suggestive of degenerative arthritis. Involvement of PIP and DIP joint space of the right foot is seen. Mild degenerative changes of the MTP, PIP and DIP joint spaces of the left foot are seen as well. ? There are bilateral small calcaneal heel enthesophytes. Assessment & Plan Assessment & Plan (1) Seropositive rheumatoid arthritis: Comment: ++RF+++CCP dx in her 40s Humira:08/29 - 03/30 -active disease on exam Enryderl:04/29-08/30 - active disease on exam Xezuly:08/30-12/29- active disease on exam Kevwally: 01/2021- stopped due to rash Orencia: 01/2021 - present effective MTX in the past - transaminitis Code(s): M05.9 - Rheumatoid arthritis with rheumatoid factor, unspecified Plan: This is a 63-year-old female with seropositive erosive RA who presents for follow-up. Her RA is well controlled with subcu Orencia She has chronic joint deformities including limited flexion and extension in the right wrist, she has significant arthritis on right wrist x-ray. Also with flexion deformity of the left 5th DIP and right 2nd and 3rd DIP. Patient has bunion deformity and hammertoes in both feet. Continue Orencia 125 mg once weekly. Labs before next visit in 4 months (2) Spondylosis of lumbar region without myelopathy or radiculopathy: Code(s): M47.816 - Spondylosis without myelopathy or radiculopathy, lumbar region Plan: Follow-up with pain management (3) Restrictive lung disease: Comment: As per PFT in 2019 she has Moderate degree of restrictive lung disease most likely related to her obesity This will be helped by weight reduction. Code(s): J98.4 - Other disorders of lung Plan: Per Pulmonary she has received lung disease likely related to her obesity. Recent chest CT suggested ILD. Dr. Grande is planning another CT scan of the chest next year. Will follow the CT scan. Patient is on Orencia which is generally known to be effective for RA-ILD (4) Immunization counseling: Code(s): Z71.85 - Encounter for immunization safety counseling Plan: Advised patient to get the new COVID booster and flu vaccine for the season Plan I spent 26 minutes reviewing patient's chart, evaluating patient, ordering diagnostic workup, counseling patient and documenting in the chart Orders: Orders Complete Blood Count Auto Diff 4 Months M05.9 - Rheumatoid arthritis with rheumatoid factor, unspecified Erythrocyte Sedimentation Rate 4 Months M05.9 - Rheumatoid arthritis with rheumatoid factor, unspecified Comprehensive Met. Panel 4 Months M05.9 - Rheumatoid arthritis with rheumatoid factor, unspecified C Reactive Protein 4 Months M05.9 - Rheumatoid arthritis with rheumatoid factor, unspecified Coding Level of Care Code Est Pt Level 4 (10244) Diagnoses Seropositive rheumatoid arthritis M05.9 Spondylosis of lumbar region without myelopathy or radiculopathy M47.816 Restrictive lung disease J98.4 Immunization counseling Z71.85
[2023-09-22 14:14] VITALS: BP 118/72; PULSE 85; TEMP 36.1; O2SAT 99; BMI 41.2
== END 2023-09-22 14:42 | disposition home or self-care (01) ==
PROVIDERS: PCP Internal Medicine; Visit Provider Student in an Organized Health Care Education/Training Program
DX: M05.79 Rheumatoid arthritis with rheumatoid factor of multiple sites without organ or systems involvement (principal); M47.816 Spondylosis without myelopathy or radiculopathy, lumbar region; J98.4 Other disorders of lung; Z71.85 Encounter for immunization safety counseling
CPT/HCPCS: 99214

== ENCOUNTER → 2023-09-22 14:02 | Outpatient (BNVA) | payer OTHER, SELFPAY | PROVIDERS: PCP Internal Medicine; Visit Provider Student in an Organized Health Care Education/Training Program | DX: Z71.85 Encounter for immunization safety counseling (principal); R91.8 Other nonspecific abnormal finding of lung field; J45.909 Unspecified asthma, uncomplicated; R05.9 Cough, unspecified; E66.01 Morbid (severe) obesity due to excess calories; M05.9 Rheumatoid arthritis with rheumatoid factor, unspecified; M47.816 Spondylosis without myelopathy or radiculopathy, lumbar region; J98.4 Other disorders of lung; Z68.41 Body mass index [BMI] 40.0-44.9, adult | CPT/HCPCS: 99212 ==

== ENCOUNTER 2023-09-22 14:51 | Outpatient (AMB) | payer OTHER, SELFPAY ==
[2023-09-22 15:38] VITALS: BP 140/78; PULSE 80; O2SAT 97; BMI 41.0
--- NOTE | 2023-09-22 15:38 | MHC.OFFVIS ---
Intake Vital Signs 09/22/23 15:38 Height 5 ft 1 in Weight 217 lb BMI 41.0 BP 140/78 H Blood Pressure Location Lt brachial Position Sitting Pulse 80 Pulse Source Pulse Oximeter Pulse Oximetry (%) 97 Oxygen Delivery Method Room Air Intake Visit Reasons: Pulm Nodule Intake Note: pt is here for follow up from one month, feels like phelgm but not much production but sometimes the taste of blood, with wheeze, still using inhalers, she is also right wing blade. Castings Trimmer Required: Yes Castings Trimmer Name: Nicky Allergies cyclobenzaprine [From Flexeril] Allergy (Intermediate, Verified 09/22/23 15:53) Dizziness orphenadrine [From Norflex] Allergy (Intermediate, Verified 09/22/23 15:53) Dizziness sarilumab [From Kevzara] Allergy (Intermediate, Verified 09/22/23 15:53) Rash Medication List - Last Reconciled 09/22/23 by Deena Grande MD abatacept (Orencia ClickJect) 125 mg subcut QWEEK albuterol sulfate 90 mcg/actuation 2 inhalations PO Q4H PRN albuterol sulfate 2.5 mg (3 mL) inhalation Q4-6H PRN 30 days blood sugar diagnostic (FreeStyle Lite Strips) Use 1 test strip once a day blood-glucose meter (FreeStyle Lite Meter kit) E11.9 ONCE A DAY celecoxib 100 mg PO BID PRN [cock up splint wear on the right wrist at night ] docusate sodium (Col-Rite) 100 mg PO BID fluticasone propionate 220 mcg/actuation (Flovent HFA) 2 puffs inhalation BID 30 days ipratropium-albuterol 20-100 mcg/actuation (Combivent Respimat) 2 puffs inhalation Q4H lancets (FreeStyle Lancets) Use 1 lancet once a day as needed lisinopril 5 mg PO DAILY 90 days metformin 1,000 mg PO BID 90 days tizanidine 2 mg PO BID PRN Do you need a note to return to daycare/school/sports/work: No HPI Pulm Nodule HPI Details 63 years old female morbidly obese, comes for follow-up. Her main problem is cough, she feels irritation deep down in the throat, which she cough she cannot bring up any phlegm. She seems to have very sensitive upper airways. At this time she is feeling fine denies excessive cough or wheezing. During the examination ,she did not have much cough or wheezing. [facility] Medical History Rheumatic fever TIA (transient ischemic attack) Right-sided back pain History of COVID-19 Asthma exacerbation Hospital discharge follow-up Sacroiliitis Renal calculi Costovertebral angle tenderness Burning with urination Disc degeneration, lumbar Spondylosis of cervical spine Spondylosis of lumbar spine Pleuritic pain Restrictive lung disease Morbid obesity Asthma Dyslipidemia Essential hypertension Vaginal modesta Seropositive rheumatoid arthritis Rheumatoid arthritis Diabetes Surgical History History of cholecystectomy Hx of colonoscopy (09/01/19) History of surgery on wrist Family History Father Diabetes mellitus Myocardial infarction Hypertension CVD (cardiovascular disease) Mother Diabetes mellitus CVD (cardiovascular disease) Sister No problems noted. Son No problems noted. Son No problems noted. Son No problems noted. Daughter Thyroiditis Daughter No problems noted. Daughter No problems noted. Daughter No problems noted. Daughter No problems noted. Social History Housing: Apartment Alcohol intake: never Patient Tobacco Use Status: Never used Tobacco e-Cigarette/Vaping Use: Never Used Second Hand Smoke Exposure: No service: No Current occupational status: disabled Sexual orientation: Straight/Heterosexual Gender identity: Female Cognitive needs: No Hearing needs: No Vision needs: No Female Reproductive History Menstrual Age of Menarche: 11 Date of menopause: 01/22/10 Review of Systems Const All systems reviewed & are unremarkable except as noted in HPI and below Eyes Reports no additional complaints ENT Reports nasal congestion (Mild off and on) Card Denies chest pain, Denies irregular heart rhythm and Denies leg edema Resp Reports as per HPI GI Reports constipation Reports other (Mild burning with urination) Musc Reports no additional complaints Skin/Breast Reports system reviewed and no additional complaints, except as documented Neuro Reports no additional complaints Psych Reports no additional complaints Physical Exam Vital Signs: Last Vital Signs Pulse 80 09/22/23 15:38 BP 140/78 H 09/22/23 15:38 Pulse Ox 97 09/22/23 15:38 Oxygen Delivery Method Room Air 09/22/23 15:38 BMI result Body Mass Index 41.0 Const General: comfortable, no acute distress, alert and awake Orientation/consciousness: patient oriented x3 HEENT Other: NASOPHARYNX IS CLEAR ON EXAMINATION, NO EXCESSIVE MUCUS IS NOTED. Head: Yes normal to inspection General nose exam: No nasal polyps present and No nasal discharge present Face and sinus: Yes sinuses nontender Mouth: oropharynx normal Throat: Yes posterior oropharynx normal Eyes General: appearance normal, both eyes and all related structures Neck Neck: Yes normal visual inspection, Yes no lymphadenopathy, Yes trachea midline and Yes no JVD Thyroid: Thyroid normal Chest Chest palpation & inspection: normal inspection of the chest, normal palpation of entire chest wall and no tenderness Resp Other: Percussion note is resonant, breath sounds equal on both sides, moderately distant , SHE CAN TAKE DEEP BREATHS WITHOUT MUCH COUGH,. Breath sounds are diminished over the basilar areas, otherwise both sides of the chest are clear. Cardio Palpation: normal PMI Rate: regular rate Rhythm: regular rhythm Heart sounds: no gallops and no murmurs GI Palpation (GI): Soft to palpation, nontender, No hepatosplenomegaly present and no masses Auscultation: normal bowel sounds Back/Spine/Pelvis Thoracic/Lumbar Spine: thoracic and lumbar spine normal to inspection, thoraco-lumbar ROM limited, thoraco-lumbar spasm and thoracic spinal tenderness Skin General skin exam: no rashes or lesions noted Neuro General: patient oriented x3 and no focal motor deficits Cranial nerves: Yes CN's II-XII intact bilaterally Extrem General: Yes normal to inspection, Yes no clubbing, cyanosis or edema and Yes no calf tenderness Psych Appearance: grossly normal Speech and movement: Normal speech and movement present Assessment & Plan Assessment & Plan (1) Asthma: Comment: ASTHMA/ REACTIVE AIRWAYS , CAUSING COUGH . CURRENTLY IMPROVED AND IS DOWN TO MINIMAL. Code(s): J45.909 - Unspecified asthma, uncomplicated Plan: [place] : FLOVENT-220 2 PUFFS B.I.D.. and ALBUTEROL HFA 2 PUFFS Q 4-6 HOURS P.R.N.. ALBUTEROL HFA 2 PUFFS Q 4-6 HOURS ONLY P.R.N.. (2) Cough: Comment: Her main concern is ongoing cough and feeling of congestion in her upper chest for the last few months. I think cough is secondary to reactive airways, [place] : FOR INCREASED COUGH OK TO TAKE ROBITUSSIN 2 TSF TID . OR USE COUGH DROPS Code(s): R05.9 - Cough, unspecified Plan: ABOVE (3) Pulmonary nodules: Comment: CT scan of the chest in December 2021 showed, bilateral pulmonary nodules, But 1 in the right upper lobe 6 mm in size. Patient is nonsmoker, and has an average risk factor. REASSURED AND EXPLAINED ABOUT THE NODULE. LAST CT SCAN OF THE CHEST ON FEBRUARY 17, AGAIN SHOWED PULMONARY NODULE 6 MM IN THE RIGHT UPPER LOBE, OTHER NONSPECIFIC OPACITIES HAD CLEARED. SHE IS A NONSMOKER, THE NODULE IS MOST LIKELY BENIGN. BUT TO BE ON THE SAFE SIDE WE WILL GET ANOTHER CT SCAN IN 1 YEARS INTERVAL. (FEBRUARY 2023 ) Code(s): R91.8 - Other nonspecific abnormal finding of lung field Plan: ABOVE (4) Morbid obesity: Comment: BMI 40. 8 She is encouraged to join weight management program, but has not been able to join any weight management program due to insurance issues, and language problem. Code(s): E66.01 - Morbid (severe) obesity due to excess calories Plan: AGAIN TALKED ABOUT THE WEIGHT ISSUE. SHE IS NOT ABLE TO JOIN ANY WEIGHT MANAGEMENT PROGRAM, SHE IS ALSO NOT ABLE TO DO MUCH EXERCISE Coding Level of Care Code Est Pt Level 3 (90410) Diagnoses Asthma J45.909 Cough R05.9 Pulmonary nodules R91.8 Morbid obesity E66.01
== END 2023-09-22 15:59 | disposition home or self-care (01) ==
PROVIDERS: PCP Internal Medicine; Visit Provider Internal Medicine
DX: J45.909 Unspecified asthma, uncomplicated (principal); R05.9 Cough, unspecified; R91.8 Other nonspecific abnormal finding of lung field; E66.01 Morbid (severe) obesity due to excess calories
CPT/HCPCS: 99213

== ENCOUNTER 2023-09-23 15:06 | Outpatient (AMB) | payer OTHER, SELFPAY ==
[2023-09-23 15:10] VITALS: BP 154/96; PULSE 69; O2SAT 100; BMI 40.8
--- NOTE | 2023-09-23 15:10 | A.OFFPC_ITS ---
Vital Signs 09/23/23 15:10 09/23/23 15:48 Height 5 ft 1 in Weight 216 lb BMI 40.8 BP 154/96 H 144/90 H Blood Pressure Location Lt brachial Lt brachial Position Sitting Sitting Pulse 69 Pulse Source Pulse Oximeter Pulse Oximetry (%) 100 Oxygen Delivery Method Room Air Intake Visit Reasons: 08/15/23 High Blood Sugar [facility] Intake Note: Patient is here to follow-up after a visit the emergency department at [facility] due to high blood sugar 08/15/2023 Allergies cyclobenzaprine [From Flexeril] Allergy (Intermediate, Verified 09/23/23 15:29) Dizziness orphenadrine [From Norflex] Allergy (Intermediate, Verified 09/23/23 15:29) Dizziness sarilumab [From Kevzara] Allergy (Intermediate, Verified 09/23/23 15:29) Rash Medication List - Last Reconciled 09/23/23 by LUCERO Rowe abatacept (Orencia ClickJect) 125 mg subcut QWEEK albuterol sulfate 90 mcg/actuation 2 inhalations PO Q4H PRN albuterol sulfate 2.5 mg (3 mL) inhalation Q4-6H PRN 30 days blood sugar diagnostic (FreeStyle Lite Strips) Use 1 test strip once a day blood-glucose meter (FreeStyle Lite Meter kit) E11.9 ONCE A DAY celecoxib 100 mg PO BID PRN [cock up splint wear on the right wrist at night ] docusate sodium (Col-Rite) 100 mg PO BID fluticasone propionate 220 mcg/actuation (Flovent HFA) 2 puffs inhalation BID 30 days ipratropium-albuterol 20-100 mcg/actuation (Combivent Respimat) 2 puffs inhalation Q4H lancets (FreeStyle Lancets) Use 1 lancet once a day as needed lisinopril 5 mg PO DAILY 90 days metformin 1,000 mg PO BID 90 days tizanidine 2 mg PO BID PRN Tobacco use date assessed: 09/23/23 HPI 08/15/23 High Blood Sugar [facility] HPI Details Patient is a 63-year-old female who presents today to after [facility] Emergency Department visit due to high blood sugar. Patient of Dr. Simmons. Patient presented to ED with epigastric pain as well as numbness and tingling in her arms and her face. She had unremarkable neurological exam. Her abdominal exam quiet benign. Her EKG was unremarkable. Troponin normal. Other labs are unremarkable aside from on initial fingerstick glucose of 325. BMP was done her blood sugar was 224. She was given IV fluids and blood sugar came down to 185. She was given a dose of sucralfate. Patient fell better and felt well enough to go home. Patient is here for a follow-up. Today, patient reports her blood sugars at home running in 200s. She denies any more numbness or tingling. Reports compliance with metformin. No shortness of breath or chest pain. Patient is a Kinyarwanda-speaking and ANGELICA Alaniz was helping with interpretation. [facility] Medical History Rheumatic fever TIA (transient ischemic attack) Right-sided back pain History of COVID-19 Asthma exacerbation Hospital discharge follow-up Sacroiliitis Renal calculi Costovertebral angle tenderness Burning with urination Disc degeneration, lumbar Spondylosis of cervical spine Spondylosis of lumbar spine Pleuritic pain Restrictive lung disease Morbid obesity Asthma Dyslipidemia Essential hypertension Vaginal modesta Seropositive rheumatoid arthritis Rheumatoid arthritis Diabetes Surgical History History of cholecystectomy Hx of colonoscopy (09/01/19) History of surgery on wrist Family History Father Diabetes mellitus Myocardial infarction Hypertension CVD (cardiovascular disease) Mother Diabetes mellitus CVD (cardiovascular disease) Sister No problems noted. Son No problems noted. Son No problems noted. Son No problems noted. Daughter Thyroiditis Daughter No problems noted. Daughter No problems noted. Daughter No problems noted. Daughter No problems noted. Social History Housing: Apartment Alcohol intake: never Patient Tobacco Use Status: Never used Tobacco e-Cigarette/Vaping Use: Never Used Second Hand Smoke Exposure: No service: No Current occupational status: disabled Sexual orientation: Straight/Heterosexual Gender identity: Female Cognitive needs: No Hearing needs: No Vision needs: No Female Reproductive History Menstrual Age of Menarche: 11 Date of menopause: 01/22/10 Questionnaire Thrive Questionnaire Date Thrive assessed: 10/16/22 AUDIT C Alcohol Use Questionnaire (AUDIT-C) 1. How often do you have a drink containing alcohol?: Never Total Score: 0 Score Reviewed/Action Taken: No SONA-7 AMB Questionnaire SONA-7 Date SONA - 7 assessed: 04/29/23 Source: Developed by Drs. Spencer Gonzalez, Anamaria Bartlett, Clayton Azar and colleagues, with an educational anna from [employer]. Review of Systems Const Denies body aches, Denies chills, Denies fever(s) and Denies headache(s) ENT Denies dizziness, Denies otalgia, Denies headache(s), Denies nasal discharge, Denies sinus pain and Denies sore throat Card Denies chest pain, Denies edema, Denies lightheadedness and Denies dyspnea Resp Denies cough, Denies dyspnea and Denies wheezing GI Denies constipation, Denies diarrhea, Denies nausea and Denies vomiting Denies dysuria Musc Denies myalgias, Denies numbness and Denies tingling Skin/Breast Denies rash Neuro Denies dizziness, Denies headache(s), Denies numbness and Denies tingling Aller/Immun Denies wheezing Physical exam (Primary Care) Vital Signs: Last Vital Signs Pulse 69 09/23/23 15:10 BP 144/90 H 09/23/23 15:48 Pulse Ox 100 09/23/23 15:10 Oxygen Delivery Method Room Air 09/23/23 15:10 BMI result Body Mass Index 40.8 Tobacco/Smoking Status: Tobacco use Status Tobacco use date assessed 09/23/23 09/23/23 15:22 Patient Tobacco Use Status Never used Tobacco 09/23/23 15:11 e-Cigarette/Vaping Use Never Used 09/23/23 15:11 Thrive Assessment: Date of Thrive Assessment Date Thrive assessed 10/16/22 09/23/23 15:11 Const General: cooperative and no acute distress Orientation/consciousness: patient oriented x3 HENMT Head: Yes normocephalic and Yes atraumatic Face and sinus: Yes sinuses nontender Mouth: oropharynx normal and moist mucous membranes Throat: Yes posterior oropharynx normal Eyes General: appearance normal, both eyes and all related structures Neck Neck: Yes normal visual inspection and Yes full ROM Resp Effort & Inspection: normal respiratory effort and able to speak in complete sentences Auscultation: clear to auscultation bilaterally, no crackles, no rales, no rhonchi and no wheezes Cardio Rate: regular rate Rhythm: regular rhythm Heart sounds: S1 normal heart sound present and S2 normal heart sound present GI Palpation (GI): Soft to palpation, not firm, nontender, no guarding and not rigid Auscultation: normal bowel sounds Skin General skin exam: no rashes or lesions noted Neuro General: patient oriented x3 Gait exam (Neuro): Normal gait present Extrem General: Yes full ROM and No edema Office Procedures Flu Questionnaire Does the patient have a severe egg allergy?: No Does the patient have severe life threatening allergies?: No Does the patient have a fever or illness today?: No Has the patient ever had Guillain-Squire Syndrome?: No Has the patient ever had any past reaction to a flu shot?: No Results AMB Hemoglobin A1c AMB Hemoglobin A1c 9.0 % Last Edit by JAMES Turner on 09/23/23 15:25 Immunizations flu vacc [id number] 6mos up(PF) 60 mcg(15 mcgx4)/0.5 mL IM syringe Performing Provider: LUCERO Rowe Performing Location: [facility] [employer] Administered by: JAMES Turner on 09/23/23 15:23 Dose Route Admin Location Dispensed Lot Number Expiration Date NDC 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 0.5 mL IM Left Deltoid 0.5 mL [id number] 04/09/24 34696-076-19 [employer] VIS Given Date VIS Provided VIS Publication Date 09/23/23 Single Vaccine 21 Eligibility Eligibility Date Funding Source Not [facility] Eligible 09/23/23 Private Results Reviewed Results Reviewed: Laboratory Last Values Hgb A1c (Clinic) 9.0 % (4.0-6.0) H 09/23/23 15:11 Assessment and Plan Assessment & Plan (1) Diabetes: Code(s): E11.9 - Type 2 diabetes mellitus without complications Qualifiers: Diabetes mellitus type: type 2 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 Start Trulicity weekly - possible adverse reactions reviewed with the patient and when to notify provider Reinforced low-carbohydrate diet Keep appointment with PCP as scheduled (2) Essential hypertension: Code(s): I10 - Essential (primary) hypertension Plan: Goal BP equal or less than 140/90 Continue lisinopril Low-sodium diet Encouraged to monitor blood pressures at home Orders: Orders Influenza [id number] Immunization 09/23/23 Z23 - Encounter for immunization AMB Hemoglobin A1c 09/23/23 E11.9 - Type 2 diabetes mellitus without complications Medications: New dulaglutide (Trulicity) 0.75 mg (0.5 mL) subcut QWEEK 2 mL 1RF E11.9 - Type 2 diabetes mellitus without complications blood pressure monitor As directed 1 ea 0RF I10 - Essential (primary) hypertension Coding Level of Care Code Est Pt Level 4 (39791) Diagnoses Type 2 diabetes mellitus with hyperglycemia, without long-term current use of insulin E11.65 Diabetes mellitus type: type 2 Diabetes mellitus care home insulin use: without termite control 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
[2023-09-23 15:48] VITALS: BP 144/90
== END 2023-09-23 16:01 | disposition home or self-care (01) ==
LOC: HO.HMGH 15:07
PROVIDERS: PCP Internal Medicine; Visit Provider Nurse Practitioner Family
DX: E11.9 Type 2 diabetes mellitus without complications (principal); Z23 Encounter for immunization
CPT/HCPCS: 83036; 90471; 90686; 99214

== ENCOUNTER 2023-10-25 16:09 | Outpatient (AMB) | payer OTHER, SELFPAY ==
--- NOTE | 2023-10-25 16:15 | A.OFFPC_ITS ---
Vital Signs 10/25/23 16:17 Height 5 ft 1 in Weight 215 lb BMI 40.6 BP 128/78 Blood Pressure Location Lt brachial Position Sitting Intake Visit Reasons: Physical Exam Intake Note: Patient here for a physical exam Assistant Coach Required: No Accompanied by: Self / Same As Patient Allergies cyclobenzaprine [From Flexeril] Allergy (Intermediate, Verified 10/25/23 16:51) Dizziness orphenadrine [From Norflex] Allergy (Intermediate, Verified 10/25/23 16:51) Dizziness sarilumab [From Kevzara] Allergy (Intermediate, Verified 10/25/23 16:51) Rash Medication List - Last Reconciled 10/25/23 by Aniyah Friend MD abatacept (Orencia ClickJect) 125 mg subcut QWEEK albuterol sulfate 90 mcg/actuation 2 inhalations PO Q4H PRN albuterol sulfate 2.5 mg (3 mL) inhalation Q4-6H PRN 30 days blood pressure monitor As directed blood sugar diagnostic (FreeStyle Lite Strips) Use 1 test strip once a day blood-glucose meter (FreeStyle Lite Meter kit) E11.9 ONCE A DAY celecoxib 100 mg PO BID PRN [cock up splint wear on the right wrist at night ] docusate sodium (Col-Rite) 100 mg PO BID dulaglutide (Trulicity) 0.75 mg (0.5 mL) subcut QWEEK fluticasone propionate 220 mcg/actuation (Flovent HFA) 2 puffs inhalation BID 30 days ipratropium-albuterol 20-100 mcg/actuation (Combivent Respimat) 2 puffs inhalation Q4H lancets (FreeStyle Lancets) Use 1 lancet once a day as needed lisinopril 5 mg PO DAILY 90 days metformin 1,000 mg PO BID 90 days tizanidine 2 mg PO BID PRN Tobacco use date assessed: 10/25/23 Dental Screening Dental Screen Date: 10/25/23 Did you have a dental visit in the last 12 months?: No Did you have a dental problem in the last 6 months where you did not have access to dental care?: No Was dental information given to patient?: Patient has dentist HPI HPI Comments History of Present Illness Details This is a 63-year-old female with diabetes mellitus type 2, seropositive rheumatoid arthritis and morbid obesity that comes today for her physical exam. Last A1c was slightly elevated and I will increase Trulicity. Rheumatoid arthritis is follow by Rheumatology. She is morbidly obese with a BMI of 40.6 and declines weight loss surgery. Was advised to do diet and exercise as tolerated to reach BMI goal less than 30. Diabetic eye exam was done 2022. Mammogram done 2022. Pap smear done 2020 which was normal. Colonoscopy done 2018. [facility] Medical History (Updated 10/25/23 @ 17:26 by Aniyah Friend MD) Rheumatic fever TIA (transient ischemic attack) Right-sided back pain History of COVID-19 Asthma exacerbation Hospital discharge follow-up Sacroiliitis Renal calculi Costovertebral angle tenderness Burning with urination Disc degeneration, lumbar Spondylosis of cervical spine Spondylosis of lumbar spine Pleuritic pain Restrictive lung disease Morbid obesity Asthma Dyslipidemia Essential hypertension Vaginal modesta Seropositive rheumatoid arthritis Rheumatoid arthritis Diabetes Surgical History History of cholecystectomy Hx of colonoscopy (09/01/19) History of surgery on wrist Family History Father Diabetes mellitus Myocardial infarction Hypertension CVD (cardiovascular disease) Mother Diabetes mellitus CVD (cardiovascular disease) Sister No problems noted. Son No problems noted. Son No problems noted. Son No problems noted. Daughter Thyroiditis Daughter No problems noted. Daughter No problems noted. Daughter No problems noted. Daughter No problems noted. Social History Housing: Apartment Alcohol intake: never Patient Tobacco Use Status: Never used Tobacco e-Cigarette/Vaping Use: Never Used Second Hand Smoke Exposure: No service: No Current occupational status: disabled Sexual orientation: Straight/Heterosexual Gender identity: Female Cognitive needs: No Hearing needs: No Vision needs: No Female Reproductive History Menstrual Age of Menarche: 11 Date of menopause: 01/22/10 Questionnaire PHQ-9 Over the last 2 weeks, how often have you been bothered by any of the following problems? 1. Little interest or pleasure in doing things: not at all 2. Feeling down, depressed, or hopeless: several days 3. Trouble falling or staying asleep, or sleeping too much: several days 4. Feeling tired or having little energy: not at all 5. Poor appetite or overeating: not at all 6. Feeling bad about yourself - or that you are a failure or have let yourself or your family down: not at all 7. Trouble concentrating on things, such as reading the newspaper or watching television: not at all 8. Moving or speaking so slowly that other people could have noticed. Or the opposite - being so fidgety or restless that you have been moving around a lot more than usual: not at all 9. Thoughts that you would be better off or of hurting yourself in some way: not at all Total score: 2 Depression Screening Interpretation: Negative Depression Screening Done: Yes 78346 - PHQ-9 Billing: Yes Source: Developed by Drs. Spencer Gonzalez, Anamaria Bartlett, Clayton Azar and colleagues, with an educational anna from [employer]. Thrive Questionnaire Date Thrive assessed: 10/25/23 I am a: Patient What is your living situation today?: I have a steady place to live Within the past 12 months, did the food you bought not last and you didn't have the money to get more?: Never true Within the past 12 months, did you worry whether your food would run out before you got money to buy more?: Never true Do you have trouble paying for medicines?: No Do you have trouble getting transportation to medical appointments?: No Do you have trouble paying your heating and electricity bill?: No Do you have trouble taking care of your child, family member or friend?: No Do you have trouble with day-to-day activities such as bathing, preparing meals, shopping, managing finances, etc.?: No Are you currently unemployed and looking for a job?: No Are you interested in more education?: No Please select the resources that you would like help with: None AUDIT C Alcohol Use Questionnaire (AUDIT-C) 1. How often do you have a drink containing alcohol?: Never Total Score: 0 SONA-7 AMB Questionnaire SONA-7 Date SONA - 7 assessed: 10/25/23 Feeling nervous, anxious, or on edge: 1 = Several days Not being able to stop or control worryin = Not at all Worrying too much about different things: 1 = Several days Trouble relaxin = Not at all Being so restless that it is hard to sit still: 0 = Not at all Becoming easily annoyed or irritable: 0 = Not at all Feeling afraid as if something awful might happen: 1 = Several days Total SONA-7 score (0-4 normal; 5-9 mild; 10-14 moderate; 15-21 severe): 3 Source: Developed by Drs. Spencer Gonzalez, Anamaria Bartlett, Clayton Azar and colleagues, with an educational anna from [employer]. SONA-7 Assessment Billing SONA-7 Assessment Tool: SONA-7 Assessment 49945 Review of Systems Const All systems reviewed & are unremarkable except as noted in HPI and below Eyes Reports no additional complaints, Denies change in vision and Denies other visual disturbances Card Denies chest pain at rest, Denies chest pain with activity, Denies edema, Denies irregular heart rhythm, Denies claudication, Denies dyspnea, Denies dyspnea on exertion, Denies orthopnea, Denies paroxysmal nocturnal dyspnea and Denies slow heart rate Resp Denies cough, Denies dyspnea and Denies dyspnea on exertion GI Denies abdominal pain, Denies change in bowel habits, Denies excessive flatus, Denies nausea and Denies vomiting Denies urinary incontinence, Denies urinary hesitancy and Denies urinary urgency Musc Denies abnormal gait, Denies atrophy, Denies deformity, Reports arthralgias and Denies limited range of motion Skin/Breast Denies bleeding lesions, Denies changing lesions and Denies rash Neuro Denies abnormal gait, Denies behavioral changes, Denies confusion and Denies lack of coordination Psych Denies behavioral changes and Denies confusion Physical exam (Primary Care) Vital Signs: Last Vital Signs BP 128/78 10/25/23 16:17 BMI result Body Mass Index 40.6 Tobacco/Smoking Status: Tobacco use Status Tobacco use date assessed 10/25/23 10/25/23 16:24 Patient Tobacco Use Status Never used Tobacco 10/25/23 16:24 e-Cigarette/Vaping Use Never Used 10/25/23 16:24 PHQ-9: PHQ-9 Score PHQ-9: Total score 2 10/25/23 17:11 Depression Screening Interpretation: Negative Thrive Assessment: Date of Thrive Assessment Date Thrive assessed 10/25/23 10/25/23 16:24 Const General: No confusion Orientation/consciousness: patient oriented x3 and No confusion HENMT Head: Yes normal to inspection, Yes normocephalic and Yes atraumatic Ears: external ears normal Eyes General: appearance normal, both eyes and all related structures Eyelids: Yes eyelids normal Conjunctivae: conjunctivae normal Neck Neck: Yes normal visual inspection and Yes supple Resp Effort & Inspection: normal respiratory effort Auscultation: clear to auscultation bilaterally Cardio Jugular venous distension: no JVD Rate: regular rate Rhythm: regular rhythm Heart sounds: S1 normal heart sound present and S2 normal heart sound present GI Inspection: Yes normal to inspection Palpation (GI): Soft to palpation and nontender Auscultation: normal bowel sounds Skin General skin exam: no rashes or lesions noted Neuro General: patient oriented x3, no focal motor deficits and No confusion Extrem General: Yes full ROM Psych Appearance: grossly normal Results AMB Rapid Strep AMB Rapid Strep Negative Last Edit by JAMES Monge on 10/25/23 17: 12 Results Reviewed Results Reviewed: Laboratory Last Values Strep Scn Rapid Clinic Negative 10/25/23 17:09 Assessment and Plan Assessment & Plan (1) Physical exam: Code(s): Z00.00 - Encounter for general adult medical examination without abnormal findings Plan: Repeat in a year. 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 Increase Trulicity. A1c goal is equal or less than 7%. (3) Seropositive rheumatoid arthritis: Comment: ++RF+++CCP dx in her 40s Humira:08/29 - 03/30 -active disease on exam Enbrel:04/29-08/30 - active disease on exam Xeljanz:08/30-12/29- active disease on exam Kevzara: 01/2021- stopped due to rash Orencia: 01/2021 - present effective MTX in the past - transaminitis Code(s): M05.9 - Rheumatoid arthritis with rheumatoid factor, unspecified Plan: Continue Orencia. Follow-up with rheumatology. (4) Morbid obesity: Comment: BMI 40. 8 She is encouraged to join weight management program, but has not been able to join any weight management program due to insurance issues, and language problem. Code(s): E66.01 - Morbid (severe) obesity due to excess calories Plan: Start diet and exercise. BMI goal is less than 30. Orders: Orders Comprehensive [place]. Panel Fast 4 Months E11.9 - Type 2 diabetes mellitus without complications AMB Rapid Strep Screen Today Z13.9 - Encounter for screening, unspecified T Spot TB 4 Months Z11.1 - Encounter for screening for respiratory tuberculosis Lipid Panel 4 Months E78.5 - Hyperlipidemia, unspecified Microalbumin, Random (w Creat) 4 Months E11.9 - Type 2 diabetes mellitus without complications Vitamin D 25-OH Total 4 Months E55.9 - Vitamin D deficiency, unspecified Medications: New 2 rosuvastatin 10 mg PO DAILY 90 days 90 tabs 1RF dulaglutide (Trulicity) 1.5 mg (0.5 mL) subcut QWEEK 30 days 2.5 mL 6RF E11.9 - Type 2 diabetes mellitus without complications Discontinued dulaglutide (Trulicity) Discontinued Reason: Patient Completed Course 0.75 mg (0.5 mL) subcut QWEEK 2 mL 1RF E11.9 - Type 2 diabetes mellitus without complications Coding Level of Care Code Est Pt Prev Care 40-64y(24593) Diagnoses Physical exam Z00.00 Type 2 diabetes mellitus with hyperglycemia, without long-term current use of insulin E11.65 Diabetes mellitus type: type 2 Diabetes mellitus mcc insulin use: without mcc use Diabetes mellitus complication status: with hyperglycemia Seropositive rheumatoid arthritis M05.9 Morbid obesity E66.01 Additional Codes SONA-7 Assessment Billing - SONA-7 Assessment Tool: SONA-7 Assessment 10257 ([id number]) Time Spent (min) 35
[2023-10-25 16:17] VITALS: BP 128/78; BMI 40.6
== END 2023-10-25 17:09 | disposition home or self-care (01) ==
LOC: HO.HMGH 16:09
PROVIDERS: PCP Internal Medicine; Visit Provider Internal Medicine
DX: Z00.00 Encounter for general adult medical examination without abnormal findings (principal); E11.65 Type 2 diabetes mellitus with hyperglycemia; E66.01 Morbid (severe) obesity due to excess calories; Z68.41 Body mass index [BMI] 40.0-44.9, adult; M05.9 Rheumatoid arthritis with rheumatoid factor, unspecified; J02.9 Acute pharyngitis, unspecified
CPT/HCPCS: 87880; 99396

== ENCOUNTER 2023-10-27 13:02 | Outpatient (AMB) | payer OTHER, SELFPAY ==
[2023-10-27 13:26] VITALS: BP 130/80; PULSE 68; TEMP 36.9; O2SAT 100; BMI 40.8
--- NOTE | 2023-10-27 13:26 | MHC.OFFVIS ---
Intake Vital Signs 10/27/23 13:26 Height 5 ft 1 in Weight 216 lb 0.848 oz BMI 40.8 BP 130/80 Blood Pressure Location Lt brachial Position Sitting Pulse 68 Pulse Source Pulse Oximeter Temp 98.4 F Temp Source Temporal Artery Scan Pulse Oximetry (%) 100 Oxygen Delivery Method Room Air Intake Visit Reasons: shortness of breath Intake Note: pt is here for follow up and states she is feeling and states she is having body hurts, sneezing, coughing since yesterday and chills today pt is on flovent and needs refill, try sending in generic. Allergies cyclobenzaprine [From Flexeril] Allergy (Intermediate, Verified 10/27/23 13:30) Dizziness orphenadrine [From Norflex] Allergy (Intermediate, Verified 10/27/23 13:30) Dizziness sarilumab [From Kevzara] Allergy (Intermediate, Verified 10/27/23 13:30) Rash Medication List - Last Reconciled 10/27/23 by Deena Grande MD abatacept (Orencia ClickJect) 125 mg subcut QWEEK albuterol sulfate 90 mcg/actuation 2 inhalations PO Q4H PRN albuterol sulfate 2.5 mg (3 mL) inhalation Q4-6H PRN 30 days blood pressure monitor As directed blood sugar diagnostic (FreeStyle Lite Strips) Use 1 test strip once a day blood-glucose meter (FreeStyle Lite Meter kit) E11.9 ONCE A DAY celecoxib 100 mg PO BID PRN [cock up splint wear on the right wrist at night ] docusate sodium (Col-Rite) 100 mg PO BID dulaglutide (Trulicity) 1.5 mg (0.5 mL) subcut QWEEK 30 days fluticasone propionate 220 mcg/actuation (Flovent HFA) 2 puffs inhalation BID 30 days ipratropium-albuterol 20-100 mcg/actuation (Combivent Respimat) 2 puffs inhalation Q4H lancets (FreeStyle Lancets) Use 1 lancet once a day as needed lisinopril 5 mg PO DAILY 90 days metformin 1,000 mg PO BID 90 days rosuvastatin 10 mg PO DAILY 90 days tizanidine 2 mg PO BID PRN Do you need a note to return to daycare/school/sports/work: No HPI shortness of breath HPI Details Laura is 63 years old female being treated for bronchial asthma. She has been doing well with intermittent cough but no wheezing . She has nonspecific complaint of getting short of breath but this is not related to wheezing. Today she is having complaint of mild nasal congestion, body aches and chills, and may be coming down with the flu-like symptoms. She injects herself with abatacept(Orencia) her her rheumatoid arthritis, and may be having an after fact from the injection which she took 2 days ago. [facility], [facility] Medical History Rheumatic fever TIA (transient ischemic attack) Right-sided back pain History of COVID-19 Asthma exacerbation Hospital discharge follow-up Sacroiliitis Renal calculi Costovertebral angle tenderness Burning with urination Disc degeneration, lumbar Spondylosis of cervical spine Spondylosis of lumbar spine Pleuritic pain Restrictive lung disease Morbid obesity Asthma Dyslipidemia Essential hypertension Vaginal modesta Seropositive rheumatoid arthritis Rheumatoid arthritis Diabetes Surgical History History of cholecystectomy Hx of colonoscopy (09/01/19) History of surgery on wrist Family History Father Diabetes mellitus Myocardial infarction Hypertension CVD (cardiovascular disease) Mother Diabetes mellitus CVD (cardiovascular disease) Sister No problems noted. Son No problems noted. Son No problems noted. Son No problems noted. Daughter Thyroiditis Daughter No problems noted. Daughter No problems noted. Daughter No problems noted. Daughter No problems noted. Social History Housing: Apartment Alcohol intake: never Patient Tobacco Use Status: Never used Tobacco e-Cigarette/Vaping Use: Never Used Second Hand Smoke Exposure: No service: No Current occupational status: disabled Sexual orientation: Straight/Heterosexual Gender identity: Female Cognitive needs: No Hearing needs: No Vision needs: No Female Reproductive History Menstrual Age of Menarche: 11 Date of menopause: 01/22/10 Review of Systems Const All systems reviewed & are unremarkable except as noted in HPI and below Eyes Reports no additional complaints ENT Reports nasal congestion (Mild off and on) Card Denies chest pain, Denies irregular heart rhythm and Denies leg edema Resp Reports as per HPI GI Reports constipation Reports other (Mild burning with urination) Musc Reports no additional complaints Skin/Breast Reports system reviewed and no additional complaints, except as documented Neuro Reports no additional complaints Psych Reports no additional complaints Physical Exam Vital Signs: Last Vital Signs Temp 98.4 F 10/27/23 13:26 Pulse 68 10/27/23 13:26 BP 130/80 10/27/23 13:26 Pulse Ox 100 10/27/23 13:26 Oxygen Delivery Method Room Air 10/27/23 13:26 BMI result Body Mass Index 40.8 Const General: comfortable, no acute distress, alert and awake Orientation/consciousness: patient oriented x3 HEENT Other: NASOPHARYNX IS CLEAR ON EXAMINATION, NO EXCESSIVE MUCUS IS NOTED. Head: Yes normal to inspection General nose exam: No nasal polyps present and No nasal discharge present Face and sinus: Yes sinuses nontender Mouth: oropharynx normal Throat: Yes posterior oropharynx normal Eyes General: appearance normal, both eyes and all related structures Neck Neck: Yes normal visual inspection, Yes no lymphadenopathy, Yes trachea midline and Yes no JVD Thyroid: Thyroid normal Chest Chest palpation & inspection: normal inspection of the chest, normal palpation of entire chest wall and no tenderness Resp Other: Percussion note is resonant, breath sounds equal on both sides, moderately distant , SHE CAN TAKE DEEP BREATHS WITHOUT MUCH COUGH,. Breath sounds are diminished over the basilar areas, otherwise both sides of the chest are clear. Cardio Palpation: normal PMI Rate: regular rate Rhythm: regular rhythm Heart sounds: no gallops and no murmurs GI Palpation (GI): Soft to palpation, nontender, No hepatosplenomegaly present and no masses Auscultation: normal bowel sounds Back/Spine/Pelvis Thoracic/Lumbar Spine: thoracic and lumbar spine normal to inspection, thoraco-lumbar ROM limited, thoraco-lumbar spasm and thoracic spinal tenderness Skin General skin exam: no rashes or lesions noted Neuro General: patient oriented x3 and no focal motor deficits Cranial nerves: Yes CN's II-XII intact bilaterally Extrem General: Yes normal to inspection, Yes no clubbing, cyanosis or edema and Yes no calf tenderness Psych Appearance: grossly normal Speech and movement: Normal speech and movement present Assessment & Plan Assessment & Plan (1) Asthma: Comment: ASTHMA/ REACTIVE AIRWAYS , CAUSING COUGH . CURRENTLY IMPROVED AND IS DOWN TO MINIMAL. Code(s): J45.909 - Unspecified asthma, uncomplicated Plan: Continue Flovent-to 22 puffs b.i.d. Use Combivent Respimat 1 inhalation Q 4-6 hours p.r.n. (2) Morbid obesity: Comment: BMI 41. 8 She is encouraged to join weight management program, but has not been able to join any weight management program due to insurance issues, and language problem. Code(s): E66.01 - Morbid (severe) obesity due to excess calories Plan: Once again she is encouraged to join weight management program and also reduce intake of carbohydrates. Medications: New fluticasone propionate 220 mcg/actuation administer with spacer 2 puffs inhalation BID 12 grams 5RF asthma 30 days Coding Level of Care Code Est Pt Level 3 (95949) Diagnoses Asthma J45.909 Morbid obesity E66.01
== END 2023-10-27 13:56 | disposition home or self-care (01) ==
PROVIDERS: PCP Internal Medicine; Visit Provider Internal Medicine
DX: J45.909 Unspecified asthma, uncomplicated (principal); E66.01 Morbid (severe) obesity due to excess calories
CPT/HCPCS: 99213

== ENCOUNTER → 2023-10-27 13:02 | Outpatient (BNVA) | payer OTHER, SELFPAY | PROVIDERS: PCP Internal Medicine; Visit Provider Internal Medicine | DX: J45.909 Unspecified asthma, uncomplicated (principal); E66.01 Morbid (severe) obesity due to excess calories; Z68.41 Body mass index [BMI] 40.0-44.9, adult; Z79.899 Other long term (current) drug therapy | CPT/HCPCS: 99212 ==

== ENCOUNTER 2023-12-04 10:43 | Emergency (ER) | payer OTHER, SELFPAY ==
--- NOTE | ~2023-12-04 | US_ITS ---
EXAMINATION: US ABDOMEN LIMITED CLINICAL INFORMATION: Right upper quadrant abdominal pain. COMPARISON: None available. TECHNIQUE: Real-time imaging of the right upper quadrant abdominal viscera. FINDINGS: PANCREAS: Not visualized LIVER: Incidental hyperechoic liver parenchyma, not further assessed. No overt biliary duct dilation. GALLBLADDER: Not visualized COMMON BILE DUCT: Normal in caliber measuring 0.6 cm in diameter. RIGHT KIDNEY: Mild fullness of the renal pelvis without hydronephrosis. No hydronephrosis. No renal calculi or focal parenchymal lesions. The kidney measures 11.6 cm in maximum dimension. FREE FLUID: None visualized. US/US abdomen limited IMPRESSION: 1. Incidental hyperechoic liver parenchyma, not further assessed though likely secondary to hepatic steatosis. 2. No biliary duct dilation identified. 3. Mild fullness of the right renal pelvis without hydronephrosis or focal renal lesions identified.
--- NOTE | 2023-12-04 11:04 | ED_ITS ---
HPI - General Adult General Chief complaint: Abdominal Pain Stated complaint: R side pain Time Seen by Provider: 12/04/23 14:02 Source: patient and translator and interpreter Mode of arrival: ambulatory Limitations: no limitations History of Present Illness HPI narrative: 63-year-old female came in for evaluation of right-sided abdominal pain for few weeks that is worse since last night pain is right upper quadrant area radiates toward the right flank area, no fever, no chills, no nausea, no vomiting. History was obtained using an translator and interpreter service patient stated that she had a history of gallbladder stone but not sure of the gallbladder was removed surgically. Related Data Home Medications Medication Instructions Recorded Confirmed ipratropium 20 mcg-albuterol 100 2 puff inhalation Q4H 06/29/23 10/25/23 mcg/actuation mist for inhalation (Combivent Respimat) Previous Rx's Medication Instructions Recorded albuterol sulfate 90 mcg/actuation 2 inh PO Q4H PRN shortness of 08/13/20 aerosol inhaler breath or wheezing #8.5 grams docusate sodium 100 mg capsule 100 mg PO BID #30 caps 12/07/22 (Col-Rite) blood sugar diagnostic (FreeStyle #50 ea 02/10/23 Lite Strips) blood-glucose meter (FreeStyle #1 ea 02/10/23 Lite Meter kit) lancets 28 gauge (FreeStyle #100 ea 02/10/23 Lancets) cock up splint #1 ea 03/03/23 tizanidine 2 mg tablet 2 mg PO BID PRN for muscle spasm 05/04/23 #60 tabs albuterol sulfate 2.5 mg/3 mL 2.5 mg (3 mL) inhalation Q4-6H PRN 06/29/23 (0.083 %) solution for nebulization shortness of breath or wheezing 30 days #90 mL metformin 1,000 mg tablet 1,000 mg PO BID 90 days #180 tabs 06/29/23 fluticasone propionate 220 2 puff inhalation BID asthma 30 08/31/23 mcg/actuation HFA aerosol inhaler days #12 grams (Flovent HFA) blood pressure monitor #1 ea 09/30/23 dulaglutide 1.5 mg/0.5 mL 1.5 mg (0.5 mL) subcut QWEEK 30 10/25/23 subcutaneous pen injector days #2.5 mL (Trulicity) rosuvastatin 10 mg tablet 10 mg PO DAILY 90 days #90 tabs 10/25/23 fluticasone propionate 220 2 puff inhalation BID asthma 30 10/27/23 mcg/actuation HFA aerosol inhaler days #12 grams lisinopril 5 mg tablet 5 mg PO DAILY 90 days #90 tabs 10/28/23 Orencia ClickJect 125 mg/mL 125 mg subcut QWEEK #4 mL 11/10/23 subcutaneous auto-injector (abatacept) celecoxib 100 mg capsule 100 mg PO BID PRN for pain 30 days 11/25/23 #60 caps Allergies Allergy/AdvReac Type Severity Reaction Status Date / Time cyclobenzaprine Allergy Intermediate Dizziness Verified 12/04/23 11:03 [From Flexeril] orphenadrine [From Norflex] Allergy Intermediate Dizziness Verified 12/04/23 11:03 sarilumab [From Kevzara] Allergy Intermediate Rash Verified 12/04/23 11:03 Review of Systems 2 Review of Systems: All other systems are reviewed and are negative Constitutional: Reports as per HPI and Reports no additional constitutional complaints Eyes: Reports as per HPI and Reports no additional eye complaints Reports system reviewed and no additional complaints, except as documented Cardiovascular: Reports as per HPI and Reports no additional cardiovascular complaints Respiratory: Reports as per HPI and Reports no additional respiratory complaints Gastrointestinal: Reports as per HPI and Reports no additional gastrointestinal complaints Genitourinary: Reports no additional female genitourinary complaints Musculoskeletal: Reports no additional musculoskeletal complaints Skin/Breast: Reports system reviewed and no additional complaints, except as docu Psychiatric: Reports no additional psychiatric complaints Endocrine: Reports no additional endocrine complaints Hematologic/Lymphatic: Reports no additional hematologic/lymphatic complaints Allergic/Immunologic: Reports no additional allergic/immunologic complaints Reports system reviewed and no additional complaints, except as documented and Reports Abnormal speech present FOR[facility]LY [facility] Past Medical History Medical History Rheumatic fever TIA (transient ischemic attack) Right-sided back pain History of COVID-19 Asthma exacerbation Hospital discharge follow-up Sacroiliitis Renal calculi Costovertebral angle tenderness Burning with urination Disc degeneration, lumbar Spondylosis of cervical spine Spondylosis of lumbar spine Pleuritic pain Restrictive lung disease Morbid obesity Asthma Dyslipidemia Essential hypertension Vaginal modesta Seropositive rheumatoid arthritis Rheumatoid arthritis Diabetes Surgical History History of cholecystectomy Hx of colonoscopy (09/01/19) History of surgery on wrist Family History Family History Father Diabetes mellitus Myocardial infarction Hypertension CVD (cardiovascular disease) Mother Diabetes mellitus CVD (cardiovascular disease) Sister No problems noted. Son No problems noted. Son No problems noted. Son No problems noted. Daughter Thyroiditis Daughter No problems noted. Daughter No problems noted. Daughter No problems noted. Daughter No problems noted. Social History Social History Housing: Apartment Unable to assess alcohol history related to: Unknown Alcohol intake: unknown Patient Tobacco Use Status: Never used Tobacco Smoked in Last 30 Days: No e-Cigarette/Vaping Use: Never Used Second Hand Smoke Exposure: No Use of substances other than those prescribed or required for medical reasons: No Advance Directives: No Advance Directives Information Provided: No Patient : No service: No Current occupational status: disabled Sexual orientation: Straight/Heterosexual Gender identity: Female Cognitive needs: No Hearing needs: No Vision needs: No Physical Exam ED Vital Signs: Vital Signs - 24 hr 12/04/23 11:05 12/04/23 12:00 12/04/23 14:00 Temperature 97.4 F 99.1 F 99.0 F Pulse Rate 83 80 82 Respiratory Rate 18 20 18 Blood Pressure 163/117 H 177/78 H 168/74 H Pulse Oximetry 100 99 99 Oxygen Delivery Method Room Air Room Air Room Air 12/04/23 15:02 Temperature 99.6 F Pulse Rate 72 Respiratory Rate 16 Blood Pressure 170/77 H Pulse Oximetry 98 Oxygen Delivery Method Room Air BMI result Body Mass Index 40.9 Vital signs have been reviewed and appear to be correct. Blood pressure elevated. Heart rate normal. Respiratory rate normal. Temperature normal. Oxygen saturation normal. Appearance: Alert. Oriented X3. No acute distress. Head: Normal external exam. Normocephalic. Atraumatic. No Perera signs noted. No raccoon eyes noted Eyes: PERRLA. EOMI. Conjunctiva and sclera normal. Eyelids normal. ENT: TM's Normal. Pharynx normal. Uvula midline. Moist mucous membranes. No trismus noted. No drooling noted. No muffled voice noted. Neck: Normal inspection. Neck supple. FROM. No adenopathy. Thyroid Normal. No meningeal signs. No neck mass noted. CVS: Normal heart rate and rhythm. Heart sound normal. No murmurs noted. Pulses normal throughout. Respiratory: No respiratory distress. Painless inspiration. Breath sounds normal. No wheezes/rales/rhonchi noted. Chest nontender. No accessory muscle usage noted or decreased air movement noted. Abdomen: Soft and nontender. Bowel sounds normal in all 4 quadrants. No distention noted. No organomegaly noted. No visible injury noted. Back: No CVA tenderness. Full range of motion noted. Skin: Skin warm and dry. Normal skin color. Normal skin turgor. No rashes/lesions/lacerations noted. Extremities: No lower extremity edema. Extremities exhibit normal range of motion. Extremities nontender. Neuro: Oriented X 3. Cranial nerve exam: II-XII are grossly intact No motor deficit. No sensory deficit. Reflexes normal. Course Course Course Narrative: This is an RME: Additional HPI, ROS, PE not included below will be deferred to primary provider. Patient is a 63-year-old female who presents emergency department for evaluation of RUQ ABD pain radiating to her back, for a few weeks. Last night had increase in pain. Denies N/V. Did not take her antihypertensives this morning Plan: Patient to receive lisinopril 5 mg p.o., labs Reevaluation(s) Reevaluation #1: 63-year-old female history with acute on chronic abdominal pain for few months, unremarkable labs, unremarkable ultrasound will discharge and follow-up with PCP. Time: 16:24 Medications Administered Discontinued Medications Generic Name Dose Route Start Last Admin Trade Name Freq PRN Reason Stop Dose Admin Lisinopril 5 mg 12/04/23 11:07 12/04/23 11:10 Lisinopril 5 Mg Tablet PO 12/04/23 11:08 5 mg ONCE ONE Administration Protocol Medical Decision Making Differential Diagnosis Differential Diagnoses: The differential diagnosis associated with the presentation includes (Hepatobiliary disease, UTI, pyelonephritis, kidney stone, electrolyte derangement, anemia, UTI.) Admission/Observation Consideration of admission/observation: Escalation of care including admission/observation considered Lab Data MDM Lab Attestation statement: I reviewed the patient's lab results. 12/04/23 12:00 12/04/23 12:00 Labs: Lab Results 12/04/23 12/04/23 Range/Units 12:00 13:37 WBC 9.1 (4.8-10.8) X10*3/uL RBC 4.49 (4.20-5.50) X10*6/uL Hgb 14.0 (12.0-16.0) g/dl Hct 41.1 (37.0-47.0) % MCV 91.5 (80.0-98.0) fL MCH 31.2 (27.0-33.0) pg MCHC 34.1 (31.0-35.0) g/dl RDW 12.0 (11.0-16.0) % Plt Count 170 (160-400) X10*3/uL MPV 10.7 (9.4-12.3) fL Immature Gran % (Auto) 0.2 (0.0-0.4) % Neut % (Auto) 69.5 (45-73) % Lymph % (Auto) 18.9 L (20-40) % Kimball % (Auto) 6.7 (2-11) % Eos % (Auto) 4.4 H (0-4) % Baso % (Auto) 0.3 (0-2) % Lymph # (Auto) 1.7 (1.2-4.9) X10*3/uL Kimball # (Auto) 0.6 (0.1-1.2) X10*3/uL Eos # (Auto) 0.4 (0.0-0.4) X10*3/uL Baso # (Auto) 0.0 (0.0-0.2) X10*3/uL Abs Immat Gran (auto) 0.02 (0.00-0.03) X10*3/uL Absolute Neuts (auto) 6.3 (2.0-8.3) x10*3/uL Absolute Nucleated RBC 0.000 (0.0-0.012) X10*3/uL Nucleated RBC % (auto) 0.0 (0.0-0.2) /100WBC Sodium 140 (135-145) mmol/L Potassium 3.7 (3.3-5.1) mmol/L Chloride 106 (96-108) mmol/L Carbon Dioxide 27 (22-29) mmol/L Anion Gap 11 L (12-20) BUN 11 (9-16) mg/dL Creatinine 0.77 (0.5-1.4) mg/dL Estim Creat Clear Calc 80.2 Estimated GFR > 60 Random Glucose 95 (60-115) mg/dL Calcium 9.2 (8.4-10.2) mg/dL Total Bilirubin 0.8 (0.0-1.0) mg/dL AST 24 (5-31) U/L ALT 25 (0-31) U/L Alkaline Phosphatase 97 (39-117) U/L Total Protein 7.3 (6.5-8.0) g/dL Albumin 3.8 (3.5-5.0) g/dL Lipase 23 (8-78) U/L Urine Color Yellow Urine Appearance Clear Urine pH 6.5 (5.0-9.0) Ur Specific Weir 1.020 (1.005-1.025) Urine Protein Negative (Neg-Trace) mg/dL Urine Glucose (UA) Negative (Negative) mg/dL Urine Ketones Negative (Negative) mg/dL Urine Blood Negative (Negative) Urine Nitrite Negative (Negative) Ur Leukocyte Esterase Negative (Negative) Independent Interpretation I performed an independent interpretation of an: Ultrasound (Abdomen:1. Incidental hyperechoic liver parenchyma, not further assessed though likely secondary to hepatic steatosis. 2. No biliary duct dilation identified. 3. Mild fullness of the right renal pelvis without hydronephrosis or focal renal lesions identified. ) Radiology Impression Discussion of test interpretation with radiology: I have reviewed the radiologist's reading. Discharge Plan Discharge Clinical Impression: Abdominal pain Patient Disposition: Home, Self-Care Instructions: Abdominal Pain (ED) Prescriptions: No Action albuterol sulfate 90 mcg/actuation HFA aerosol inhaler 2 inh PO Q4H PRN (Reason: shortness of breath or wheezing) Qty: 8.5 1RF (DME) FreeStyle Lite Strips Strip See Rx Instructions .ROUTE .MEDSUPPLY Qty: 50 11RF Rx Instructions: Use 1 test strip once a day (DME) blood-glucose meter [FreeStyle Lite Meter] Kit See Rx Instructions .ROUTE .MEDSUPPLY Qty: 1 0RF Rx Instructions: E11.9 ONCE A DAY (DME) lancets [FreeStyle Lancets] 28 gauge misc See Rx Instructions .ROUTE .MEDSUPPLY Qty: 100 11RF Rx Instructions: Use 1 lancet once a day as needed tizanidine 2 mg tablet 2 mg PO BID PRN (Reason: for muscle spasm) Qty: 60 3RF albuterol sulfate 2.5 mg /3 mL (0.083 %) solution for nebulization 2.5 mg inhalation Q4-6H PRN (Reason: shortness of breath or wheezing) 30 Days Qty: 90 2RF fluticasone propionate [Flovent HFA] 220 mcg/actuation HFA aerosol inhaler 2 puff inhalation BID 30 Days Qty: 12 3RF Rx Instructions: administer with spacer (DME) blood pressure monitor Kit See Rx Instructions .Route Qty: 1 0RF Rx Instructions: As directed lisinopril 5 mg tablet 5 mg PO DAILY 90 Days Qty: 90 0RF Orencia ClickJect 125 mg/mL auto-injector 125 mg subcut QWEEK Qty: 4 2RF celecoxib 100 mg capsule 100 mg PO BID PRN (Reason: for pain) 30 Days Qty: 60 1RF Rx Instructions: Take it with food and full glass of water. Avoid other NSAIDs. docusate sodium [Col-Rite] 100 mg capsule 100 mg PO BID Qty: 30 0RF rosuvastatin 10 mg tablet 10 mg PO DAILY 90 Days Qty: 90 1RF Trulicity 1.5 mg/0.5 mL pen injector 1.5 mg subcut QWEEK 30 Days Qty: 2.5 6RF Combivent Respimat 20-100 mcg/actuation mist 2 puff inhalation Q4H metformin 1,000 mg tablet 1,000 mg PO BID 90 Days Qty: 180 1RF fluticasone propionate 220 mcg/actuation HFA aerosol inhaler 2 puff inhalation BID 30 Days Qty: 12 5RF Rx Instructions: administer with spacer (DME) cock up splint See Rx Instructions .Route .MEDSUPPLY Qty: 1 0RF Rx Instructions: wear on the right wrist at night Referrals: Aniyah Gonzalez MD [Primary Care Provider] -
[2023-12-04 11:05] VITALS: BP 163/117; PULSE 83; RESP 18; TEMP 36.3; O2SAT 100; BMI 40.9
[2023-12-04] MEDS: lisinopriL 5 MG TABLET PO (11:10)
[2023-12-04 12:00] VITALS: BP 177/78; PULSE 80; RESP 20; TEMP 37.3; O2SAT 99
[2023-12-04 12:03] LABS: MANUAL DIFF FLAG NO
[2023-12-04 12:04] LABS: Basophils Percent Auto 0.3 % (0-2); Eosinophils Absolute Auto 0.4 X10*3/uL (0.0-0.4); Eosinophils Percent Auto 4.4 % (0-4); Hematocrit 41.1 % (37.0-47.0); Imm Gran Abs Auto 0.02 X10*3/uL (0.00-0.03); Imm Gran Pct Auto 0.2 % (0.0-0.4); Lymphocytes Absolute Auto 1.7 X10*3/uL (1.2-4.9); Lymphocytes Percent Auto 18.9 % (20-40); Mean Corpuscular HGB Conc 34.1 g/dl (31.0-35.0); Mean Corpuscular Hemoglobin 31.2 pg (27.0-33.0); Mean Corpuscular Volume 91.5 fL (80.0-98.0); Mean Platelet Volume 10.7 fL (9.4-12.3); Monocytes Absolute Auto 0.6 X10*3/uL (0.1-1.2); Monocytes Percent Auto 6.7 % (2-11); Neutrophils Absolute Auto 6.3 x10*3/uL (2.0-8.3); Neutrophils Percent Auto 69.5 % (45-73); Platelet Count 170 X10*3/uL (160-400); Red Blood Count 4.49 X10*6/uL (4.20-5.50); White Blood Count 9.1 X10*3/uL (4.8-10.8)
[2023-12-04 12:23] LABS: Alanine Aminotransferase 25 U/L (0-31); Albumin Level 3.8 g/dL (3.5-5.0); Alkaline Phosphatase 97 U/L (39-117); Anion Gap 11 (12-20); Aspartate Amino Transferase 24 U/L (5-31); Bilirubin Total 0.8 mg/dL (0.0-1.0); Blood Urea Nitrogen 11 mg/dL (9-16); Calcium 9.2 mg/dL (8.4-10.2); Carbon Dioxide 27 mmol/L (22-29); Chloride 106 mmol/L (96-108); Creatinine Clr Calc Pharmacy 80.2; Estimated Glomerular Filt Rate > 60; Glucose Random 95 mg/dL (60-115); Lipase 23 U/L (8-78); Potassium 3.7 mmol/L (3.3-5.1); Sodium 140 mmol/L (135-145); Total Protein 7.3 g/dL (6.5-8.0)
[2023-12-04 13:55] LABS: Appearance Urine Clear; Color Urine Yellow; Glucose Urine UA Negative (Negative); Leukocyte Esterase Urine Negative (Negative); Nitrite Urine Negative (Negative); PH 6.5 (5.0-9.0); Urine Blood Negative (Negative); Urine Ketones Negative (Negative); Urine Protein Negative (Neg-Trace)
[2023-12-04 14:00] VITALS: BP 168/74; PULSE 82; RESP 18; TEMP 37.2; O2SAT 99
[2023-12-04 15:02] VITALS: BP 170/77; PULSE 72; RESP 16; TEMP 37.6; O2SAT 98
[2023-12-04 16:00] VITALS: BP 164/76; PULSE 77; RESP 18; O2SAT 99
[2023-12-04 18:00] VITALS: BP 174/78; PULSE 71; RESP 20; O2SAT 98
== END 2023-12-04 19:16 | disposition home or self-care (01) ==
PROVIDERS: Nurse Practitioner Family; Emergency Provider Emergency Medicine; PCP Internal Medicine
DX: R10.11 Right upper quadrant pain (principal); E11.9 Type 2 diabetes mellitus without complications; M54.9 Dorsalgia, unspecified
CPT/HCPCS: 36415; 76705; 80053; 81003; 83690; 85025; 99284

== ENCOUNTER 2023-12-24 13:08 | Outpatient (AMB) | payer OTHER, SELFPAY ==
--- NOTE | 2023-12-24 13:24 | A.SPINEOV_ITS ---
Intake Intake Visit Reasons: 6 month follow up Intake Note: Ms. Davalos is here today for 6month F/u Night Monitor Required: Yes Night Monitor Name: Tablet Allergies cyclobenzaprine [From Flexeril] Allergy (Intermediate, Verified 12/04/23 11:03) Dizziness orphenadrine [From Norflex] Allergy (Intermediate, Verified 12/04/23 11:03) Dizziness sarilumab [From Kevzara] Allergy (Intermediate, Verified 12/04/23 11:03) Rash Assessment & Plan Assessment & Plan (1) Thoracic spine pain: Code(s): M54.6 - Pain in thoracic spine Plan Mrs Davalos is back in the office today. I reviewed her imaging again. She has diffuse aches throughout her back including her low back, her upper back and her middle back. The middle of her back seems to be the things affecting her the most. It hurts when she sleeps on her right side at night or when she is doing activities. She has a mild to moderate degenerative disc at L5-S1. I do not believe this could cause all the symptoms she has. She has underlying rheumatoid arthritis and it is well known these patients have diffuse body aches related to inflammation that often do not respond well to surgery. She is frustrated because none of the pills that she has ever been given do anything for her. 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 Total amount of time spent in this visit was 20 minutes in discussion of symptoms, lumbar MRI imaging results and subsequent plan of care Ez Tsai MD,PhD [facility] Coding Level of Care Code Est Pt Level 3 (93164) Diagnoses Thoracic spine pain M54.6
== END 2023-12-24 14:41 | disposition home or self-care (01) ==
PROVIDERS: PCP Internal Medicine; Visit Provider Physician Assistant
DX: M54.6 Pain in thoracic spine (principal)
CPT/HCPCS: 99213

== ENCOUNTER → 2023-12-24 13:08 | Outpatient (BNVA) | payer OTHER, SELFPAY | PROVIDERS: PCP Internal Medicine; Visit Provider Physician Assistant | DX: M54.6 Pain in thoracic spine (principal) | CPT/HCPCS: 99212 ==

== ENCOUNTER 2024-01-03 09:27 | Outpatient (REF) | payer OTHER, SELFPAY ==
[2024-01-03 09:52] LABS: MANUAL DIFF FLAG NO
[2024-01-03 10:15] LABS: Basophils Absolute Auto 0.1 X10*3/uL (0.0-0.2); Basophils Percent Auto 0.9 % (0-2); Eosinophils Absolute Auto 0.7 X10*3/uL (0.0-0.4); Eosinophils Percent Auto 10.6 % (0-4); Hematocrit 39.2 % (37.0-47.0); Hemoglobin 13.4 g/dl (12.0-16.0); Imm Gran Abs Auto 0.04 X10*3/uL (0.00-0.03); Imm Gran Pct Auto 0.6 % (0.0-0.4); Lymphocytes Absolute Auto 2.1 X10*3/uL (1.2-4.9); Lymphocytes Percent Auto 32.4 % (20-40); Mean Corpuscular HGB Conc 34.2 g/dl (31.0-35.0); Mean Corpuscular Hemoglobin 31.7 pg (27.0-33.0); Mean Corpuscular Volume 92.7 fL (80.0-98.0); Mean Platelet Volume 11.1 fL (9.4-12.3); Monocytes Absolute Auto 0.4 X10*3/uL (0.1-1.2); Monocytes Percent Auto 6.4 % (2-11); Neutrophils Absolute Auto 3.2 x10*3/uL (2.0-8.3); Neutrophils Percent Auto 49.1 % (45-73); Platelet Count 166 X10*3/uL (160-400); Red Blood Count 4.23 X10*6/uL (4.20-5.50); Red Cell Distribution Width 11.8 % (11.0-16.0); White Blood Count 6.4 X10*3/uL (4.8-10.8)
[2024-01-03 10:55] LABS: Erythrocyte Sedimentation Rate 28 MM/HR (0-20)
[2024-01-03 11:00] LABS: Alanine Aminotransferase 29 U/L (0-31); Albumin Level 3.5 g/dL (3.5-5.0); Alkaline Phosphatase 98 U/L (39-117); Anion Gap 9 (12-20); Aspartate Amino Transferase 26 U/L (5-31); Blood Urea Nitrogen 11 mg/dL (9-16); C Reactive Protein 0.86 mg/dL (< or = 0.50); Calcium 9.3 mg/dL (8.4-10.2); Carbon Dioxide 30 mmol/L (22-29); Chloride 105 mmol/L (96-108); Estimated Glomerular Filt Rate > 60; Glucose Random 245 mg/dL (60-115); Sodium 140 mmol/L (135-145); Total Protein 6.8 g/dL (6.5-8.0)
[2024-01-03 11:51] LABS: Bilirubin Total 0.6 mg/dL (0.0-1.0)
== END 2024-01-03 09:28 | disposition home or self-care (01) ==
LOC: HO.LAB 09:27
PROVIDERS: Student in an Organized Health Care Education/Training Program; PCP Internal Medicine; Visit Provider Internal Medicine
DX: M05.9 Rheumatoid arthritis with rheumatoid factor, unspecified (principal)
CPT/HCPCS: 36415; 80053; 85025; 85652; 86140

== ENCOUNTER 2024-01-20 15:04 | Outpatient (AMB) | payer OTHER, SELFPAY ==
[2024-01-20 15:36] VITALS: BP 112/70; PULSE 69; O2SAT 98; BMI 40.8
--- NOTE | 2024-01-20 15:36 | MHC.OFFVIS ---
Intake Vital Signs 01/20/24 15:36 Height 5 ft 1 in Weight 216 lb 0.848 oz BMI 40.8 BP 112/70 Blood Pressure Location Lt brachial Position Sitting Pulse 69 Pulse Source Pulse Oximeter Pulse Oximetry (%) 98 Oxygen Delivery Method Room Air Intake Visit Reasons: Pulm Nodule Intake Note: pt is here for follow up and states she is feeling really tight, she had covid for 2 weeks at the end of December, still coughing, short of breath. pt needs refill on albuterol hfa,, albuterol for nebulizer and combivent. And also something for phelgm. Allergies cyclobenzaprine [From Flexeril] Allergy (Intermediate, Verified 01/20/24 16:00) Dizziness orphenadrine [From Norflex] Allergy (Intermediate, Verified 01/20/24 16:00) Dizziness sarilumab [From Kevzara] Allergy (Intermediate, Verified 01/20/24 16:00) Rash Medication List - Last Reconciled 01/20/24 by Deena Grande MD albuterol sulfate 90 mcg/actuation 2 inhalations PO Q4H PRN albuterol sulfate 2.5 mg (3 mL) inhalation Q4-6H PRN 30 days blood pressure monitor As directed blood sugar diagnostic (FreeStyle Lite Strips) Use 1 test strip once a day blood-glucose meter (FreeStyle Lite Meter kit) E11.9 ONCE A DAY celecoxib 100 mg PO BID PRN 30 days [cock up splint wear on the right wrist at night ] docusate sodium (Col-Rite) 100 mg PO BID dulaglutide (Trulicity) 1.5 mg (0.5 mL) subcut QWEEK 30 days fluticasone propionate 220 mcg/actuation 2 puffs inhalation BID 30 days ipratropium-albuterol 20-100 mcg/actuation (Combivent Respimat) 2 puffs inhalation Q4H lancets (FreeStyle Lancets) Use 1 lancet once a day as needed lisinopril 5 mg PO DAILY 90 days metformin 1,000 mg PO BID 90 days Orencia ClickJect (abatacept) 125 mg subcut QWEEK NS rosuvastatin 10 mg PO DAILY 90 days tizanidine 2 mg PO BID PRN Do you need a note to return to daycare/school/sports/work: No HPI Pulm Nodule HPI Details This 64 years old female is here for her regular follow-up. After 4 months About 2 weeks ago she did have acute COVID infection from which she recovered at home. She claims that she is left with some residual cough since then. There is no increase in shortness of breath, and she denies any episodes of wheezing. Currently she has no fever chills or any mucopurulent phlegm. She has been out of Flovent for the last few days. [facility] Medical History Rheumatic fever TIA (transient ischemic attack) Right-sided back pain History of COVID-19 Asthma exacerbation Hospital discharge follow-up Sacroiliitis Renal calculi Costovertebral angle tenderness Burning with urination Disc degeneration, lumbar Spondylosis of cervical spine Spondylosis of lumbar spine Pleuritic pain Restrictive lung disease Morbid obesity Asthma Dyslipidemia Essential hypertension Vaginal modesta Seropositive rheumatoid arthritis Rheumatoid arthritis Diabetes Surgical History History of cholecystectomy Hx of colonoscopy (09/01/19) History of surgery on wrist Family History Father Diabetes mellitus Myocardial infarction Hypertension CVD (cardiovascular disease) Mother Diabetes mellitus CVD (cardiovascular disease) Sister No problems noted. Son No problems noted. Son No problems noted. Son No problems noted. Daughter Thyroiditis Daughter No problems noted. Daughter No problems noted. Daughter No problems noted. Daughter No problems noted. Social History Housing: Apartment Unable to assess alcohol history related to: Unknown Alcohol intake: unknown Patient Tobacco Use Status: Never used Tobacco e-Cigarette/Vaping Use: Never Used Second Hand Smoke Exposure: No service: No Current occupational status: disabled Sexual orientation: Straight/Heterosexual Gender identity: Female Cognitive needs: No Hearing needs: No Vision needs: No Female Reproductive History Menstrual Age of Menarche: 11 Date of menopause: 01/22/10 Review of Systems Const All systems reviewed & are unremarkable except as noted in HPI and below Eyes Reports no additional complaints ENT Reports nasal congestion (Mild off and on) Card Denies chest pain, Denies irregular heart rhythm and Denies leg edema Resp Reports as per HPI and Reports cough (Mild to moderate cough since the COVID 2 weeks ago) GI Reports constipation Reports other (Mild burning with urination) Musc Reports no additional complaints Skin/Breast Reports system reviewed and no additional complaints, except as documented Neuro Reports no additional complaints Psych Reports no additional complaints Physical Exam Vital Signs: Last Vital Signs Pulse 69 01/20/24 15:36 BP 112/70 01/20/24 15:36 Pulse Ox 98 01/20/24 15:36 Oxygen Delivery Method Room Air 01/20/24 15:36 BMI result Body Mass Index 40.8 Assessment & Plan Assessment & Plan (1) Asthma: Comment: ASTHMA/ REACTIVE AIRWAYS , CAUSING COUGH . HAS BEEN WELL CONTROLLED, BUT NOW HAS INCREASED COUGH SINCE COVID INFECTION 2 WEEKS AGO. Code(s): J45.909 - Unspecified asthma, uncomplicated Plan: USE COMBIVENT RESPIMAT 1 INHALATION Q 6 HOURS / AT LEAST 3 TIMES A DAY. USE FLUTICASONE PROIONATE-220 2 PUFFS B.I.D.. (2) Restrictive lung disease: Comment: As per PFT in 2019 she has Moderate degree of restrictive lung disease most likely related to her obesity This will be helped by weight reduction. Code(s): J98.4 - Other disorders of lung Plan: ABOVE (3) COVID-19: Comment: Suffered from COVID infection in April 2022, and recovered within a few weeks at home. AGAIN SUFFERED FROM COVID INFECTION 2 WEEKS AGO, AND HAS RECOVERED BUT STILL HAS INCREASED AMOUNT OF COUGH. Code(s): U07.1 - COVID-19 Plan: MAY USE OTC COUGH MEDICATION 2 TSP T.I.D. (4) Pulmonary nodules: Comment: CT scan of the chest in December 2021 showed, bilateral pulmonary nodules, But 1 in the right upper lobe 6 mm in size. Patient is nonsmoker, and has an average risk factor. REASSURED AND EXPLAINED ABOUT THE NODULE. LAST CT SCAN OF THE CHEST ON FEBRUARY 17, AGAIN SHOWED PULMONARY NODULE 6 MM IN THE RIGHT UPPER LOBE, OTHER NONSPECIFIC OPACITIES HAD CLEARED. Code(s): R91.8 - Other nonspecific abnormal finding of lung field Plan: SHE IS A NONSMOKER, THE NODULE IS MOST LIKELY BENIGN. (5) Cough: Comment: Her main concern is ongoing cough and feeling of congestion in her upper chest for the last few months. I think cough is secondary to reactive airways, Code(s): R05.9 - Cough, unspecified Plan: TX : FOR INCREASED COUGH OK TO TAKE ROBITUSSIN 2 TSF TID . OR USE COUGH DROPS Coding Level of Care Code Est Pt Level 3 (73536) Diagnoses Asthma J45.909 Restrictive lung disease J98.4 COVID-19 U07.1 Pulmonary nodules R91.8 Cough R05.9
== END 2024-01-20 15:55 | disposition home or self-care (01) ==
PROVIDERS: PCP Internal Medicine; Visit Provider Internal Medicine
DX: J45.909 Unspecified asthma, uncomplicated (principal); J98.4 Other disorders of lung; U07.1 COVID-19; R91.8 Other nonspecific abnormal finding of lung field; R05.9 Cough, unspecified
CPT/HCPCS: 99213

== ENCOUNTER → 2024-01-20 15:04 | Outpatient (BNVA) | payer OTHER, SELFPAY | PROVIDERS: PCP Internal Medicine; Visit Provider Internal Medicine | DX: R91.8 Other nonspecific abnormal finding of lung field (principal); J45.909 Unspecified asthma, uncomplicated; R05.9 Cough, unspecified; U09.9 Post COVID-19 condition, unspecified; J98.4 Other disorders of lung | CPT/HCPCS: 99212 ==

== ENCOUNTER 2024-01-25 12:28 | Outpatient (AMB) | payer OTHER, SELFPAY ==
--- NOTE | 2024-01-25 12:46 | A.OFFVIS_ITS ---
Intake Vital Signs 01/25/24 12:47 Height 5 ft 1 in Weight 214 lb 8.156 oz BMI 40.5 BP 140/86 H Blood Pressure Location Rt brachial Position Sitting Pulse 71 Pulse Source Pulse Oximeter Pulse Oximetry (%) 98 Oxygen Delivery Method Room Air Intake Visit Reasons: RA Intake Note: Patient last seen 09/22/23 presents today for follow up and test results. Pt reports she has been without Trulicity for over 1 month. Processing Tech Required: Yes Processing Tech Language: Principal Statistical Scientist Name: Ariel [id number] Information Interpreted: clinical only Accompanied by: Self / Same As Patient Allergies cyclobenzaprine [From Flexeril] Allergy (Intermediate, Verified 01/25/24 12:53) Dizziness orphenadrine [From Norflex] Allergy (Intermediate, Verified 01/25/24 12:53) Dizziness sarilumab [From Kevzara] Allergy (Intermediate, Verified 01/25/24 12:53) Rash Medication List - Last Reconciled 01/25/24 by Ely Coley MD albuterol sulfate 90 mcg/actuation 2 inhalations PO Q4H PRN albuterol sulfate 2.5 mg (3 mL) inhalation Q4-6H PRN 30 days blood pressure monitor As directed blood sugar diagnostic (FreeStyle Lite Strips) Use 1 test strip once a day blood-glucose meter (FreeStyle Lite Meter kit) E11.9 ONCE A DAY celecoxib 100 mg PO BID PRN 30 days [cock up splint wear on the right wrist at night ] docusate sodium (Col-Rite) 100 mg PO BID fluticasone propionate 220 mcg/actuation 2 puffs inhalation BID 30 days ipratropium-albuterol 20-100 mcg/actuation (Combivent Respimat) 2 puffs inhalation Q4H lancets (FreeStyle Lancets) Use 1 lancet once a day as needed lisinopril 5 mg PO DAILY 90 days metformin 1,000 mg PO BID 90 days Orencia ClickJect (abatacept) 125 mg subcut QWEEK NS rosuvastatin 10 mg PO DAILY 90 days tizanidine 2 mg PO BID PRN HPI HPI Comments History of Present Illness Details 64yoF presents for follow-up of Seroposi tive deforming Rheumatoid Arthritis (RF++ CCP++). Patient continues on Orencia which she is tolerating without issue. She states that her rheumatoid arthritis has been stable. She denies joint pain or swelling in her hands or feet. Her main complaint is right upper back pain [facility] Medical History Rheumatic fever TIA (transient ischemic attack) Right-sided back pain History of COVID-19 Asthma exacerbation Hospital discharge follow-up Sacroiliitis Renal calculi Costovertebral angle tenderness Burning with urination Disc degeneration, lumbar Spondylosis of cervical spine Spondylosis of lumbar spine Pleuritic pain Restrictive lung disease Morbid obesity Asthma Dyslipidemia Essential hypertension Vaginal modesta Seropositive rheumatoid arthritis Rheumatoid arthritis Diabetes Surgical History History of cholecystectomy Hx of colonoscopy (09/01/19) History of surgery on wrist Family History Father Diabetes mellitus Myocardial infarction Hypertension CVD (cardiovascular disease) Mother Diabetes mellitus CVD (cardiovascular disease) Sister No problems noted. Son No problems noted. Son No problems noted. Son No problems noted. Daughter Thyroiditis Daughter No problems noted. Daughter No problems noted. Daughter No problems noted. Daughter No problems noted. Social History Housing: Apartment Unable to assess alcohol history related to: Unknown Alcohol intake: unknown Patient Tobacco Use Status: Never used Tobacco e-Cigarette/Vaping Use: Never Used Second Hand Smoke Exposure: No service: No Current occupational status: disabled Sexual orientation: Straight/Heterosexual Gender identity: Female Cognitive needs: No Hearing needs: No Vision needs: No Female Reproductive History Menstrual Age of Menarche: 11 Date of menopause: 01/22/10 Review of Systems [facility] Reports back pain Physical Exam Vital Signs: Last Vital Signs Pulse 71 01/25/24 12:47 BP 140/86 H 01/25/24 12:47 Pulse Ox 98 01/25/24 12:47 Oxygen Delivery Method Room Air 01/25/24 12:47 BMI result Body Mass Index 40.5 Const General: cooperative, healthy appearing and comfortable Nutritional Appearance: obese morbidly obese Orientation/consciousness: patient oriented x3 Limitations: no limitations HEENT Head: Yes normocephalic and Yes atraumatic Mouth: moist mucous membranes Resp Effort & Inspection: normal respiratory effort and able to speak in complete sentences Neuro General: patient oriented x3 Extrem Other: Right wrist with significantly limited flexion and extension. (chronic) Few flexion contractures of right hand fingers No active synovitis Right foot with large bunion and fibular deviation of some toes Negative MTP squeeze test bilaterally Results Reviewed Results Reviewed: Laboratory Tests 10/16/22 02/17/23 02/17/23 13:25 06:48 06:48 WBC 8.0 02/17/23 06:48 Date of Service: 02/17/23 Procedure(s): CT chest w IV con Accession Number(s): [id number] EXAMINATION: CT CHEST WITH CONTRAST CLINICAL INFORMATION: Other nonspecific abnormal finding of lung field? COMPARISON: Previous chest CT November 2022 TECHNIQUE: Multidetector volumetric CT imaging of the chest was obtained after the administration of 50 mL of Omnipaque 350 intravenous contrast without immediate adverse reactions. Axial MIP volume rendering provided. Sagittal and coronal reformatted images were obtained. This CT examination was performed using dose optimization techniques as appropriate, variously including the following: *Automated exposure control *Adjustment of mA and/or kV according to patient size (this includes techniques or standardized protocols for targeted exams where dose is matched to indication/reason for exam; i.e. extremities or head) *Use of iterative reconstruction technique DLP: 187 mGy-cm FINDINGS: LUNGS: 6 mm right peripheral or subpleural nodule adjacent to the minor fissure axial image 81 series 5 is stable.? There are increased peripheral reticular markings seen, greatest in the right middle lobe and the dependent bilateral lower lobes. Similar to November 2022 exam and questionable mild interstitial lung disease. There are scattered small areas of increased attenuation in the lungs. This is seen both centrally and peripherally and may have a peribronchial distribution. Current is questionable for airways disease versus changes related to interstitial lung disease. Clinical correlation recommended. MEDIASTINUM: Small mediastinal and bilateral hilar lymph nodes. No enlarged lymph nodes. Upper normal heart size. No pericardial effusion. Normal caliber thoracic aorta.? PLEURA: There is no pleural effusion. No pleural mass or thickening.? AXILLA: Small bilateral axillary lymph nodes. No enlarged axillary lymph nodes or chest wall mass.? UPPER ABDOMEN: Fatty liver.? OSSEOUS STRUCTURES: Degenerative changes of the spine. CT/CT chest w IV con IMPRESSION: Stable 6 mm right pulmonary nodule adjacent to the minor fissure probably representing a subpleural lymph node. Question mild interstitial lung disease. Date of Service: 06/08/22 Procedure(s): XR hand LT min 3V Accession Number(s): [id number] EXAMINATION: XR BILATERAL HANDS XR BILATERAL FEET CLINICAL INFORMATION: Pain in the joints.? COMPARISON: None.? TECHNIQUE: 3 views of each foot and 3 views of each hand.? FINDINGS: LEFT FOOT: There is loss of MTP joint space in the 2nd through 5th digits and loss of PIP joints as well. No bony erosive or periarticular spurring. There is a small calcaneal heel enthesophyte.? The ankle mortise and subtalar joints are normal. The soft tissues are normal. RIGHT FOOT: There is moderate hallux valgus deformity at the 1st MTP joint. Mild subluxation is seen at the MTP joints of 2nd through 5th digits. No bony erosive changes. Mild loss of PIP and DIP joint spaces is seen. The ankle mortise and subtalar joints are normal. There is a small calcaneal heel enthesophyte. RIGHT HAND: There is loss of PIP and DIP joint spaces. No periarticular spurring. The MTP joint space is preserved. There is fusion of some of the carpal bones. There is a negative ulnar variance. No acute fracture is seen. LEFT HAND: There is severe loss of the 2nd MCP joint space and mild loss of PIP and DIP joint spaces. There is mild negative ulnar variance with periarticular spurring of the radioulnar joint. No acute fracture is seen.? XR/XR hand LT min 3V IMPRESSION: Degenerative osteoarthritic changes of the PIP and DIP joints in all digits of both hands. ? There is severe loss of the 2nd MCP joint space in the left hand. There is periarticular spurring of the radioulnar joint with negative ulnar variance in both hands. No acute fracture is seen. ? There is subluxation of the 2nd through 5th MTP joints and moderate hallux valgus deformity of the 1st MTP joint, suggestive of degenerative arthritis. Involvement of PIP and DIP joint space of the right foot is seen. Mild degenerative changes of the MTP, PIP and DIP joint spaces of the left foot are seen as well. ? There are bilateral small calcaneal heel enthesophytes. Assessment & Plan Assessment & Plan (1) Seropositive rheumatoid arthritis: Comment: ++RF+++CCP dx in her 40s Humira:08/29 - 03/30 -active disease on exam Enryderl:04/29-08/30 - active disease on exam Xezuly:08/30-12/29- active disease on exam Wood: 01/2021- stopped due to rash Orencia: 01/2021 - present effective MTX in the past - transaminitis Code(s): M05.9 - Rheumatoid arthritis with rheumatoid factor, unspecified Plan: This is a 64-year-old female with seropositive erosive [facility]. Her RA is well controlled with subcu Orencia She has chronic joint deformities including limited flexion and extension in the right wrist, she has significant arthritis on right wrist x-ray. Also with flexion deformity of the left 5th DIP and right 2nd and 3rd DIP. Patient has bunion deformity and hammertoes in both feet. Continue Orencia 125 mg once weekly. Labs before next visit in 4 months (2) Spondylosis of lumbar region without myelopathy or radiculopathy: Code(s): M47.816 - Spondylosis without myelopathy or radiculopathy, lumbar region Plan: Follow-up with pain management (3) Restrictive lung disease: Comment: As per PFT in 2019 she has Moderate degree of restrictive lung disease most likely related to her obesity This will be helped by weight reduction. Code(s): J98.4 - Other disorders of lung Plan: Per Pulmonary she has received lung disease likely related to her obesity. Will follow the CT scan. Patient is on Orencia which is generally known to be helpful for RA-ILD Plan I spent 26 minutes reviewing patient's chart, evaluating patient, ordering diagnostic workup, counseling patient and documenting in the chart Orders: Orders Complete Blood Count Auto Diff 4 Months M05.9 - Rheumatoid arthritis with rheumatoid factor, unspecified Comprehensive Met. Panel 4 Months M05.9 - Rheumatoid arthritis with rheumatoid factor, unspecified C Reactive Protein 4 Months M05.9 - Rheumatoid arthritis with rheumatoid factor, unspecified Erythrocyte Sedimentation Rate 4 Months M05.9 - Rheumatoid arthritis with rheumatoid factor, unspecified Coding Level of Care Code Est Pt Level 4 (02933) Diagnoses Seropositive rheumatoid arthritis M05.9 Spondylosis of lumbar region without myelopathy or radiculopathy M47.816 Restrictive lung disease J98.4
[2024-01-25 12:47] VITALS: BP 140/86; PULSE 71; O2SAT 98; BMI 40.5
== END 2024-01-25 13:18 | disposition home or self-care (01) ==
PROVIDERS: PCP Internal Medicine; Visit Provider Student in an Organized Health Care Education/Training Program
DX: M05.79 Rheumatoid arthritis with rheumatoid factor of multiple sites without organ or systems involvement (principal); M47.816 Spondylosis without myelopathy or radiculopathy, lumbar region; J98.4 Other disorders of lung
CPT/HCPCS: 99214

== ENCOUNTER → 2024-01-25 12:28 | Outpatient (BNVA) | payer OTHER, SELFPAY | PROVIDERS: PCP Internal Medicine; Visit Provider Student in an Organized Health Care Education/Training Program | DX: M05.9 Rheumatoid arthritis with rheumatoid factor, unspecified (principal); M47.816 Spondylosis without myelopathy or radiculopathy, lumbar region; J98.4 Other disorders of lung | CPT/HCPCS: 99212 ==

== ENCOUNTER 2024-02-03 14:17 | Outpatient (AMB) | payer OTHER, SELFPAY ==
--- NOTE | 2024-02-03 14:18 | A.OFFVIS_ITS ---
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 She had follow up with Neurosurgery and was deemed non-surgical. Patient reports diffuse body pain, mostly throughout her whole back including her upper, middle and lower back. The middle of her back on the right side affect her the most. Pain increases with movements, ADLs, coughing or sleeping on her right side. She has a mild to moderate degenerative disc at L5-S1 per most recent lumbar spine MRI and stable 6 mm right pulmonary nodule per CT scan in 2022 for which she follows with Pulmonology. Patient was sent for thoracic spine xray by her PCP last year, this has not been completed yet. Patient also sees Rheumatology and takes Orencia. Reports recent home fasting blood sugar of 133 yesterday morning. Most recent A1C=9.0 per 09/23/23. Denies any fever, dizziness, dyspnea, shortness of breaths, chest pain, hemoptysis, weakness, bladder or bowel dysfunction or saddle anesthesia. PRIOR: Patient present today for follow up for worsening of low back pain with right sided radiculopathy symptoms. She reports mild to moderate pain relief in March and April since previous injection in February, B/L L5-S1 TFESI. Denies any recent trauma, injury or falls. She ambulates with slow antalgic gait with mild limping to shift her weight to the left side. Patient reports neck through lower back pain that travels into her right buttock, thigh and into right calf and left heel and foot with numbness, tingling and occasional weakness with prolonged walking. She also reports severe back pain with bending forward or lifting and avoids bending down as she is not able to get up from bending due to severe radiculopathy. Patient reports she is able to tolerate 20 minutes of walking or less before she needs to rest due to pain increase. Patient also has seropositive rheumatoid arthritis and states widespread joint pain as well. She is no longer interested with injections, especially cortisone injections due to diabetes and as well as low efficacy of injections in the past. Most recent A1C was 7.0. Patient rates her pain 9/10. Denies any fever, dizziness, chest pain, shortness of breath, foot drop, bladder or bowel incontinence, or saddle anesthesia. PRIOR: Patient presents today to assess response to B/L L5-S1 TFESI on 02/19/[address] Richardson. Patient reports 50% pain relief in her lower back and 90% pain relief for her radicular pain. She denies any numbness, tingling, weakness or bilateral leg pain today and reports these symptoms have resolved since injection. Unfortunately for her axial low back pain, she has tried Sprint PNS trial with minimal pain relief and therefore requested us to removed it earlier in the PNS therapy. Patient rates her axial low back pain at 9/10 worse with movements, extension or her daily activities. She does have significant lumbar degenerative disc disease with S-shaped thoracolumbar scoliotic curvature, multilevel ligamentum flavum thickening, grade 1 degenerative spondylolisthesis at L5-S1, multilevel discogenic and facetogenic degenerative changes, as well as neuroforaminal and central canal stenosis. She denies any fever, bladder or bowel incontinence or saddle anesthesia. Patient also reports history of kidney stones and significant right sided flank pain with CVA tenderness on the right. She denies any fever, hematuria but reports significant pain with urination. She requests referral to Urology services. PRIOR: Patient is a pleasant 62 years old female status post Unilateral Right L1 and L4 Sprint PNS on 11/19/[address] Richardson. Patient reports less than 20% pain relief and requests me to take Sprint leads out. She reports minimal to no improvement with her daily activities, social interactions, mobility or sleep. Patient was seen in our dressing change and wound check on 11/23/21 and 12/02/22 and has reported similar complaints. Minimal paresthesia at the back at 75 and 78 stimulation. Patient reports uncomfortable sensations with higher stimulation and no pain relief. The dressing was removed today. Leads insertion sites look clean, dry, intact, no redness, no swelling, no pathological discharge. Area was cleansed with Chloraprep. Leads pulled with tips intact and the area was cleansed again with Chloraprep, applied Bacitracin and covered it with gauze and Tegaderm film dressing. Patient is also suffers facetogenic, discogenic and SIJ pain generators. She requests a therapeutic injection for her radicular pain. She reports an increase in lower back pain that radiates to both of her lower extremities posteriorly with numbness and tingling in her feet and shins bilaterally. Reports right lower extremity weakness with ambulation. Patient reports she received KISHAN injections in [place] and these provided her significant pain relief. Her most recent A1C was 7.1 on 10/16/22. We reviewed lumbar spine MRI in greater detail with the patient and her son. I have explained to patient that due to significant multilevel ligamentum flavum thickening, therapeutic injections may be less effective. Given BMI >41, she is not a good candidate for MILD procedure. Patient reports she is trying to lose weight with diet and diabetic medications but has been having difficulty walking due to axial lower back pain with radiculopathy. She denies any fever, abdominal or groin pain, bladder or bowel incontinence or saddle anesthesia. She was seen in our ER department on 12/07/22 for right sided abdominal pain with a benign examination. CT scan of abdomen and pelvis showed hepatomegaly and hepatic steatosis. Questionable mild nodularity of the liver contour which could be seen with cirrhosis. Moderate degree of colonic and rectal stool burden. No evidence of bowel obstruction. Normal appendix. No acute or aggressive appearing osseous abnormalities. Degenerative changes of the spine. Again noted increased sclerosis with subchondral cystic changes in the pubic symphysis, suggesting osteitis pubis or degenerative changes, slightly increased since 2019. Patient reports she takes Milk of Magnesia for constipation with good results. PRIOR Dr. Richardson 10/28/22: Ms. Matias is on the phone today to discuss the results unilateral right diagnostic L2-L3 L4 does ramus L5 medial branch block. She reports 100% pain relief in the area of the injections. She reports better mobility better social interactions better activities of daily living. She reports that upper portion of her pain in the upper lumbar lower thoracic spine remains with pain. I offered her sprint PNS to treat her condition. I am planning to insert L2 and L5 possibly L1 and L4 right stimulation I warned her that this procedure she needs to go to will be under minimal sedation. I also offered her radiofrequency ablation but in her case of widespread pain I believe that sprint is much better procedure to alleviate her pain. Prior:. She has multiple changes on the MRI is dictated as below. Again she was interrogated about her pain. She insists that her pain is on the right side of the lumbar spine and radiates to the right thigh to the level of the knee but not below that level. She reports that flexing backwards aggravates her pain.. She reports that this pain started over 3 years ago. I was under impression that her pain is coming from sacroiliac joints . she reports that the her pain is getting worse when she is trying to stretch her leg on the right. I discussed the situation with her. She is convinced that there is some changes in her lumbar spine which are the cause of the pain. I canceled the trial of peripheral nerve stimulation of sacroiliac joint innervation she was scheduled previously. The trial was based on the injections which were performed before into her sacroiliac joints and gave her significant pain relief. However she received steroid with this injection and she had her blood sugar elevated. I offered her today to perform diagnostic sacroiliac joint injection however patient adamantly refused and insisted on going for the MRI. We received information from [place] about injection she received there. It was unknown level epidural steroid injection during which she received 80 mg of Kenalog. Given 80 mg of Kenalog alone anywhere can relieve any kind of pain. We performed therapeutic bilateral sacroiliac joint injection she reports 45 days of excellent pain relief she reports better mobility better social interactions better activities of daily living. Her past medical history significant for rheumatoid arthritis she is on Orencia, she also suffers from diabetes and hypertension, she has severe arthralgia. She also reports that she has some kidney damage from the medication she receives for rheumatoid arthritis. She is also suffering from truncal obesity. She is morbidly obese. She is also diabetic and takes diabetic medication [facility] Medical History Rheumatic fever TIA (transient ischemic attack) Right-sided back pain History of COVID-19 Asthma exacerbation Hospital discharge follow-up Sacroiliitis Renal calculi Costovertebral angle tenderness Burning with urination Disc degeneration, lumbar Spondylosis of cervical spine Spondylosis of lumbar spine Pleuritic pain Restrictive lung disease Morbid obesity Asthma Dyslipidemia Essential hypertension Vaginal modesta Seropositive rheumatoid arthritis Rheumatoid arthritis Diabetes Surgical History History of cholecystectomy Hx of colonoscopy (09/01/19) History of surgery on wrist Family History Father Diabetes mellitus Myocardial infarction Hypertension CVD (cardiovascular disease) Mother Diabetes mellitus CVD (cardiovascular disease) Sister No problems noted. Son No problems noted. Son No problems noted. Son No problems noted. Daughter Thyroiditis Daughter No problems noted. Daughter No problems noted. Daughter No problems noted. Daughter No problems noted. Social History Housing: Apartment Unable to assess alcohol history related to: Unknown Alcohol intake: unknown Patient Tobacco Use Status: Never used Tobacco e-Cigarette/Vaping Use: Never Used Second Hand Smoke Exposure: No service: No Current occupational status: disabled Sexual orientation: Straight/Heterosexual Gender identity: Female Cognitive needs: No Hearing needs: No Vision needs: No Female Reproductive History Menstrual Age of Menarche: 11 Date of menopause: 01/22/10 Review of Systems Const All systems reviewed & are unremarkable except as noted in HPI and below Physical Exam Vital Signs: Last Vital Signs Pulse 64 02/03/24 14:24 BP 182/85 H 02/03/24 14:24 Pulse Ox 97 02/03/24 14:24 Oxygen Delivery Method Room Air 02/03/24 14:24 BMI result Body Mass Index 36.4 General: Appears afebrile. Alert and oriented. Mood and affect appropriate. Follows and participates in conversation appropriately. Respiratory effort is unlabored. Non productive cough. Able to transition from sit to stand unassisted. Uses cane with ambulation. Ambulates with bilaterally normal heel strike and toe off. Back/Spine/Pelvis Other: Limited thoracolumbar ROM due to pain. Mild antalgic gait with no limping. Lumbar extension reproduces moderate pain and flexion reproduces mild pain. Demonstrates 5/5 strength of quadriceps bilaterally as well as flexion/viktoria siflexion of bilateral feet against resistance. 2+ pedal pulses bilaterally. Diminished patellar and achilles reflexes bilaterally. Facet loading test positive bilaterally. Chacho's test reproduces lateral hip pain and mild low back pain. Cervical Spine: cervical muscular tenderness and No Cervical spine tenderness Thoracic/Lumbar Spine: thoracic and lumbar spine normal to inspection, No Thoracic/lumbar spine scar(s), Lasegue's sign negative, straight leg raise negative bilaterally, pain with thoraco-lumbar ROM, paraspinal muscle te nderness, thoraco-lumbar ROM limited, thoracic spinal tenderness (lower thoracic) and lumbar spinal tenderness Pelvis: buttock tenderness (right worse than the left) bilaterally Sacroiliac joints: bilaterally tender to palpation Results Reviewed Results Reviewed: MR LUMBAR SPINE WITHOUT CONTRAST 08/23/23 CLINICAL INFORMATION: Vertebrogenic back pain. COMPARISON: Lumbar spine MRI 08/11/2022. TECHNIQUE: MRI of the lumbar spine was obtained using routine sequences without contrast. FINDINGS: There is transitional spinal anatomy at the lumbosacral junction with a subdural sacralization of the L5 vertebral segment. The lowest rib-bearing vertebral segment will be designated T12. There is grade 1 anterolisthesis of L4 on L5. Alignment is otherwise normal. Vertebral heights are preserved. No acute bone marrow signal changes. There are mixed degenerative endplate changes at multiple levels. There is loss of intervertebral disc height and T2 signal intensity at L3-L4 and L4-L5. There is disc desiccation at multiple additional levels without substantial loss of intervertebral disc height. The tip of the conus medullaris is located at L1. No mass effect on the conus. Visualized distal cord signal intensity is normal. At T12-L1 the annular contour is normal. No canal or neuroforaminal compromise. At L1-L2 there is a slightly bulging disc. Bilateral facet degenerative change. No canal stenosis. No mass effect on the traversing or foraminal nerve roots. At L2-L3 there is a bulging disc. Bilateral facet degenerative change. Moderate canal stenosis. No mass effect on the traversing or foraminal nerve roots. At L3-L4 there is a diffusely bulging disc. Bilateral facet degenerative change. Moderate canal stenosis. Mild mass effect on the right L3 foraminal nerve root. At L4-L5 there is a bulging disc. Bilateral facet degenerative change. Moderate canal stenosis. Subarticular zone narrowing causes abutment of both traversing L5 nerve roots. No foraminal nerve root compression. At L5-S1 there is no canal or neuroforaminal compromise. Limited visualization the retroperitoneal anatomy reveals no abnormal finding. Psoas and paraspinal muscle groups are symmetric. IMPRESSION: There is transitional spinal anatomy at the lumbosacral junction with partial sacralization of the L5 vertebral segment. The lowest rib-bearing vertebral segment will be designated T12. There is multilevel degenerative spondylosis of the lumbar spine with grade 1 anterolisthesis of L4 on L5 related to facet degenerative changes at this level. Moderate canal stenosis at L2-L3, L3-L4, and L4-L5. A bulging disc in conjunction with facet degenerative change at L3-L4 causes mild mass effect on the right L3 foraminal nerve root. There is also abutment of both traversing L5 nerve roots related to degenerative changes at L4-L5. CT/CT chest w IV con 02/17/23 OSSEOUS STRUCTURES: Degenerative changes of the spine. IMPRESSION: Stable 6 mm right pulmonary nodule adjacent to the minor fissure probably representing a subpleural lymph node. Question mild interstitial lung disease. Assessment & Plan Assessment & Plan (1) Lumbar spondylosis: Code(s): M47.816 - Spondylosis without myelopathy or radiculopathy, lumbar region Category: Medical (2) Thoracic spine pain: Code(s): M54.6 - Pain in thoracic spine Category: Medical (3) Thoracic radiculitis: Code(s): M54.14 - Radiculopathy, thoracic region Category: Medical Plan Pending thoracic spine xray from 04/2023, not completed. I will re-enter order for thoracic spine imaging to assess degree of degenerative changes, any subluxation, listhesis, compression fractures or pars defects. Script provided for lidocaine patches and gabapentin for right sided thoracic back symptoms. Side effects and precautions discussed with patient. Patient advised to start gabapentin 300 mg at bedtime for one week, if well tolerated increase to BID. All questions and concerns have been discussed and patient agreed with the plan. Follow up for xray results and sooner if needed. Orders: Orders XR thoracic spine 3V Today M54.14 - Radiculopathy, thoracic region, M54.6 - Pain in thoracic spine Medications: New lidocaine 5% leave on most painful area for up to 12 hrs topical 30 ea 3RF pain M47.816 - Spondylosis without myelopathy or radiculopathy, lumbar region, M54.14 - Radiculopathy, thoracic region, M54.6 - Pain in thoracic spine gabapentin 300 mg PO BID 30 days 60 caps 0RF pain M47.816 - Spondylosis without myelopathy or radiculopathy, lumbar region, M54.14 - Radiculopathy, thoracic region, M54.6 - Pain in thoracic spine Coding Level of Care Code Est Pt Level 4 (58919) Diagnoses Lumbar spondylosis M47.816 Thoracic spine pain M54.6 Thoracic radiculitis M54.14
[2024-02-03 14:24] VITALS: BP 182/85; PULSE 64; O2SAT 97; BMI 36.4
== END 2024-02-03 14:37 | disposition home or self-care (01) ==
PROVIDERS: PCP Internal Medicine; Visit Provider Nurse Practitioner Family
DX: M47.816 Spondylosis without myelopathy or radiculopathy, lumbar region (principal); M54.6 Pain in thoracic spine; M54.14 Radiculopathy, thoracic region
CPT/HCPCS: 99214

== ENCOUNTER → 2024-02-03 14:17 | Outpatient (BNVA) | payer OTHER, SELFPAY | PROVIDERS: PCP Internal Medicine; Visit Provider Nurse Practitioner Family | DX: M54.14 Radiculopathy, thoracic region (principal); M54.6 Pain in thoracic spine; M47.816 Spondylosis without myelopathy or radiculopathy, lumbar region | CPT/HCPCS: 99212 ==

== ENCOUNTER 2024-02-04 12:02 | Outpatient (REF) | payer OTHER, SELFPAY ==
--- NOTE | ~2024-02-04 | XR_ITS ---
EXAMINATION: XR THORACIC SPINE CLINICAL INFORMATION: Radiculopathy, thoracic region COMPARISON: None available. TECHNIQUE: 3 standing views of the thoracic spine were obtained. FINDINGS: There are small riblets extending off the T12 vertebral body. There is no fracture or bone destruction there is mild kyphosis There is multilevel disc space narrowing. There is no abnormality of the paraspinal soft tissues. Incidental note is made of degenerative disc disease in the lower cervical spine. XR/XR thoracic spine 3V IMPRESSION: 1. Mild kyphosis. 2. Multilevel degenerative disc disease. 3. Degenerative disc disease in the lower cervical spine.
== END 2024-02-04 12:03 | disposition home or self-care (01) ==
LOC: HO.XRAY 12:02
PROVIDERS: PCP Internal Medicine; Visit Provider Nurse Practitioner Family
DX: M54.14 Radiculopathy, thoracic region (principal); M54.6 Pain in thoracic spine
CPT/HCPCS: 72072

== ENCOUNTER 2024-02-23 12:28 | Outpatient (AMB) | payer OTHER, SELFPAY ==
[2024-02-23 13:24] VITALS: BP 140/82; PULSE 65; O2SAT 100; BMI 36.7
--- NOTE | 2024-02-23 13:24 | A.OFFVIS_ITS ---
Vital Signs 02/23/24 13:24 Height 5 ft 4 in Weight 213 lb 13.574 oz BMI 36.7 BP 140/82 H Blood Pressure Location Lt brachial Position Sitting Pulse 65 Pulse Source Pulse Oximeter Pulse Oximetry (%) 100 Oxygen Delivery Method Room Air Intake Visit Reasons: shortness of breath Intake Note: pt is here for follow up and states she when coughing she still has a lot of pain in chest and back, inhaler is not helping, when coughing she has a pressure feeling in chest. Human Resource Assistant Required: Yes Human Resource Assistant Name: [id number] Allergies cyclobenzaprine [From Flexeril] Allergy (Intermediate, Verified 02/23/24 13:43) Dizziness orphenadrine [From Norflex] Allergy (Intermediate, Verified 02/23/24 13:43) Dizziness sarilumab [From Kevzara] Allergy (Intermediate, Verified 02/23/24 13:43) Rash Medication List - Last Reconciled 02/23/24 by Deena Grande MD albuterol sulfate 90 mcg/actuation 2 inhalations PO Q4H PRN albuterol sulfate 2.5 mg (3 mL) inhalation Q4-6H PRN 30 days blood pressure monitor As directed blood sugar diagnostic (FreeStyle Lite Strips) Use 1 test strip once a day blood-glucose meter (FreeStyle Lite Meter kit) E11.9 ONCE A DAY celecoxib 100 mg PO BID PRN 30 days [cock up splint wear on the right wrist at night ] docusate sodium (Col-Rite) 100 mg PO BID fluticasone propionate 220 mcg/actuation 2 puffs inhalation BID 30 days gabapentin 300 mg PO BID 30 days ipratropium-albuterol 20-100 mcg/actuation (Combivent Respimat) 2 puffs inhalation Q4H 30 days lancets (FreeStyle Lancets) Use 1 lancet once a day as needed lidocaine 5% leave on most painful area for up to 12 hrs topical lisinopril 5 mg PO DAILY 90 days metformin 1,000 mg PO BID 90 days Orencia ClickJect (abatacept) 125 mg subcut QWEEK NS rosuvastatin 10 mg PO DAILY 90 days tizanidine 2 mg PO BID PRN Do you need a note to return to daycare/school/sports/work: No HPI HPI shortness of breath: Details: THIS 64 YEARS OLD MALAY-SPEAKING FEMALE COMES BACK AFTER 4 WEEKS FOR FOLLOW-UP SHE HAS ONGOING COUGH WITH MINIMAL EXERTION AND ALSO WHEN SHE TAKES A DEEP BREATH. COUGH IS MOSTLY DRY AND NONPRODUCTIVE. WHEN SHE IS SITTING AT REST AND NOT TALKING THEN SHE HAS NO COUGH. SHE HAS NO FEVER OF CHILLS AND DOES NOT HISTORY OF ANY RECENT INFECTION. SHE WAS SUPPOSED TO GET COMBIVENT INHALER WHICH SHE DID NOT GET YET. [facility]LY [facility] Medical History Rheumatic fever TIA (transient ischemic attack) Right-sided back pain History of COVID-19 Asthma exacerbation Hospital discharge follow-up Sacroiliitis Renal calculi Costovertebral angle tenderness Burning with urination Disc degeneration, lumbar Spondylosis of cervical spine Spondylosis of lumbar spine Pleuritic pain Restrictive lung disease Morbid obesity Asthma Dyslipidemia Essential hypertension Vaginal modesta Seropositive rheumatoid arthritis Rheumatoid arthritis Diabetes Surgical History History of cholecystectomy Hx of colonoscopy (09/01/19) History of surgery on wrist Family History Father Diabetes mellitus Myocardial infarction Hypertension CVD (cardiovascular disease) Mother Diabetes mellitus CVD (cardiovascular disease) Sister No problems noted. Son No problems noted. Son No problems noted. Son No problems noted. Daughter Thyroiditis Daughter No problems noted. Daughter No problems noted. Daughter No problems noted. Daughter No problems noted. Social History Housing: Apartment Unable to assess alcohol history related to: Unknown Alcohol intake: unknown Patient Tobacco Use Status: Never used Tobacco e-Cigarette/Vaping Use: Never Used Second Hand Smoke Exposure: No service: No Current occupational status: disabled Sexual orientation: Straight/Heterosexual Gender identity: Female Cognitive needs: No Hearing needs: No Vision needs: No Female Reproductive History Menstrual Age of Menarche: 11 Date of menopause: 01/22/10 Review of Systems Const All systems reviewed & are unremarkable except as noted in HPI and below Eyes Reports no additional complaints ENT Reports nasal congestion (Mild off and on) Card Denies chest pain, Denies irregular heart rhythm and Denies leg edema Resp Reports as per HPI and Reports cough (Mild to moderate cough since the COVID 2 weeks ago) GI Reports constipation Reports other (Mild burning with urination) Musc Reports no additional complaints Skin/Breast Reports system reviewed and no additional complaints, except as documented Neuro Reports no additional complaints Psych Reports no additional complaints Physical Exam Vital Signs: Last Vital Signs Pulse 65 02/23/24 13:24 BP 140/82 H 02/23/24 13:24 Pulse Ox 100 02/23/24 13:24 Oxygen Delivery Method Room Air 02/23/24 13:24 BMI result Body Mass Index 36.7 Const General: comfortable, no acute distress, alert and awake Orientation/consciousness: patient oriented x3 HEENT Other: NASOPHARYNX IS CLEAR ON EXAMINATION, NO EXCESSIVE MUCUS IS NOTED. Head: Yes normal to inspection General nose exam: No nasal polyps present and No nasal discharge present Face and sinus: Yes sinuses nontender Mouth: oropharynx normal Throat: Yes posterior oropharynx normal Eyes General: appearance normal, both eyes and all related structures Neck Neck: Yes normal visual inspection, Yes no lymphadenopathy, Yes trachea midline and Yes no JVD Thyroid: Thyroid normal Chest Chest palpation & inspection: normal inspection of the chest, normal palpation of entire chest wall and no tenderness Resp Other: Percussion note is resonant, breath sounds equal on both sides, moderately distant , She does get cough on taking deep breath. Breath sounds are diminished over the basilar areas, otherwise both sides of the chest are clear. Cardio Palpation: normal PMI Rate: regular rate Rhythm: regular rhythm Heart sounds: no gallops and no murmurs GI Palpation (GI): Soft to palpation, nontender, No hepatosplenomegaly present and no masses Auscultation: normal bowel sounds Back/Spine/Pelvis Thoracic/Lumbar Spine: thoracic and lumbar spine normal to inspection, thoraco- lumbar ROM limited, thoraco-lumbar spasm and thoracic spinal tenderness Skin General skin exam: no rashes or lesions noted Neuro General: patient oriented x3 and no focal motor deficits Cranial nerves: Yes CN's II-XII intact bilaterally Extrem General: Yes normal to inspection, Yes no clubbing, cyanosis or edema and Yes no calf tenderness Psych Appearance: grossly normal Speech and movement: Normal speech and movement present Assessment & Plan Assessment & Plan (1) Cough: Comment: Her main concern is ongoing cough and feeling of congestion in her upper chest for the last few months. I think cough is secondary to reactive airways, Code(s): R05.9 - Cough, unspecified Category: Medical Plan: Continue using Combivent Respimat 1 inhalation Q 6 hours p.r.n.. Prescription is renewed . May use OTC cough syrup such as Robitussin 2 tsp q.6 hours p.r.n.. (2) Asthma: Comment: ASTHMA/ REACTIVE AIRWAYS , CAUSING COUGH . HAS BEEN WELL CONTROLLED, BUT NOW HAS INCREASED COUGH SINCE COVID INFECTION A WEEKS AGO. Code(s): J45.909 - Unspecified asthma, uncomplicated Category: Medical Plan: Continue regular medical regimen including : Combivent Respimat 1 inhalation Q 4-6 hours p.r.n.. Also Flovent -220 2 puffs bid (3) Restrictive lung disease: Comment: As per PFT in 2019 she has Moderate degree of restrictive lung disease most likely related to her obesity This will be helped by weight reduction. Code(s): J98.4 - Other disorders of lung Category: Medical Plan: Continue doing deep breathing exercises 2 to 3 times a day. Medications: Changed From ipratropium-albuterol 20-100 mcg/actuation (Combivent Respimat) 2 puffs inhalation Q4H To ipratropium-albuterol 20-100 mcg/actuation (Combivent Respimat) 2 puffs inhalation Q4H 4 grams 3RF ASTHMA/COUGH 30 days Refilled fluticasone propionate 220 mcg/actuation administer with spacer 2 puffs inhalation BID 12 grams 5RF asthma 30 days Coding Level of Care Code Est Pt Level 3 (39148) Diagnoses Cough R05.9 Asthma J45.909 Restrictive lung disease J98.4
== END 2024-02-23 13:59 | disposition home or self-care (01) ==
PROVIDERS: PCP Internal Medicine; Visit Provider Internal Medicine
DX: R05.9 Cough, unspecified (principal); J45.909 Unspecified asthma, uncomplicated; J98.4 Other disorders of lung
CPT/HCPCS: 99213

== ENCOUNTER → 2024-02-23 12:28 | Outpatient (BNVA) | payer OTHER, SELFPAY | PROVIDERS: PCP Internal Medicine; Visit Provider Internal Medicine | DX: J45.909 Unspecified asthma, uncomplicated (principal); J98.4 Other disorders of lung; R05.9 Cough, unspecified | CPT/HCPCS: 99212 ==

== ENCOUNTER 2024-02-24 15:10 | Outpatient (AMB) | payer OTHER, SELFPAY ==
--- NOTE | 2024-02-24 15:13 | A.OFFPC_ITS ---
Vital Signs 02/24/24 15:16 Height 5 ft 4 in Weight 214 lb BMI 36.7 BP 140/70 H Blood Pressure Location Lt brachial Position Sitting Intake Visit Reasons: dm Intake Note: Patient here for a follow up DM Medical Office Receptionist Required: No Accompanied by: Self / Same As Patient Allergies cyclobenzaprine [From Flexeril] Allergy (Intermediate, Verified 02/24/24 15:30) Dizziness orphenadrine [From Norflex] Allergy (Intermediate, Verified 02/24/24 15:30) Dizziness sarilumab [From Kevzara] Allergy (Intermediate, Verified 02/24/24 15:30) Rash Medication List - Last Reconciled 02/24/24 by Aniyah Friend MD albuterol sulfate 90 mcg/actuation 2 inhalations PO Q4H PRN albuterol sulfate 2.5 mg (3 mL) inhalation Q4-6H PRN 30 days blood pressure monitor As directed blood sugar diagnostic (FreeStyle Lite Strips) Use 1 test strip once a day blood-glucose meter (FreeStyle Lite Meter kit) E11.9 ONCE A DAY celecoxib 100 mg PO BID PRN 30 days [cock up splint wear on the right wrist at night ] docusate sodium (Col-Rite) 100 mg PO BID fluticasone propionate 220 mcg/actuation 2 puffs inhalation BID 30 days gabapentin 300 mg PO BID 30 days ipratropium-albuterol 20-100 mcg/actuation (Combivent Respimat) 2 puffs inhalat ion Q4H 30 days lancets (FreeStyle Lancets) Use 1 lancet once a day as needed lidocaine 5% leave on most painful area for up to 12 hrs topical lisinopril 5 mg PO DAILY 90 days metformin 1,000 mg PO BID 90 days Orencia ClickJect (abatacept) 125 mg subcut QWEEK NS rosuvastatin 10 mg PO DAILY 90 days tizanidine 2 mg PO BID PRN Tobacco use date assessed: 10/25/23 Fall risk assessment: No Falls in past year Last assessed Fall Risk: 02/24/24 Dental Screening Dental Screen Date: 10/25/23 HPI HPI Comments History of Present Illness Details This is a 64-year-old female with rheumatoid arthritis, diabetes mellitus type 2, hypertension and dyslipidemia that comes today for follow-up on her conditions. On Orencia for rheumatoid arthritis and this is follow by Rheumatology. A1c close to goal and I will start her on Ozempic. Blood pressure borderline and I will increase lisinopril from 5 mg to 10 mg. Blood pressure will be recheck in 3 weeks by nurse navigator. Lipid panel will be order and her LDL goal should be less than 70. Denies any chest pain or shortness of breath. Complains of diffuse joint pain. [facility] Medical History (Updated 02/24/24 @ 18:44 by Aniyah Friend MD) Rheumatic fever TIA (transient ischemic attack) Right-sided back pain History of COVID-19 Asthma exacerbation Hospital discharge follow-up Sacroiliitis Renal calculi Costovertebral angle tenderness Burning with urination Disc degeneration, lumbar Spondylosis of cervical spine Spondylosis of lumbar spine Pleuritic pain Restrictive lung disease Morbid obesity Asthma Dyslipidemia Essential hypertension Vaginal modesta Seropositive rheumatoid arthritis Rheumatoid arthritis Diabetes Surgical History History of cholecystectomy Hx of colonoscopy (09/01/19) History of surgery on wrist Family History Father Diabetes mellitus Myocardial infarction Hypertension CVD (cardiovascular disease) Mother Diabetes mellitus CVD (cardiovascular disease) Sister No problems noted. Son No problems noted. Son No problems noted. Son No problems noted. Daughter Thyroiditis Daughter No problems noted. Daughter No problems noted. Daughter No problems noted. Daughter No problems noted. Social History Housing: Apartment Unable to assess alcohol history related to: Unknown Alcohol intake: unknown Patient Tobacco Use Status: Never used Tobacco e-Cigarette/Vaping Use: Never Used Second Hand Smoke Exposure: No service: No Current occupational status: disabled Sexual orientation: Straight/Heterosexual Gender identity: Female Cognitive needs: No Hearing needs: No Vision needs: No Female Reproductive History Menstrual Age of Menarche: 11 Date of menopause: 01/22/10 Questionnaire Thrive Questionnaire Date Thrive assessed: 10/25/23 SONA-7 AMB Questionnaire SONA-7 Date SONA - 7 assessed: 10/25/23 Source: Developed by Drs. Spencer Gonzalez, Anamaria Bartlett, Clayton Azar and colleagues, with an educational anna from [employer]. Review of Systems Const All systems reviewed & are unremarkable except as noted in HPI and below Card Denies chest pain at rest, Denies chest pain with activity, Denies edema, Denies irregular heart rhythm, Denies claudication, Denies dyspnea, Denies dyspnea on exertion, Denies orthopnea, Denies paroxysmal nocturnal dyspnea and Denies slow heart rate Resp Denies cough, Denies dyspnea and Denies dyspnea on exertion GI Denies abdominal pain, Denies change in bowel habits, Denies excessive flatus, Denies nausea and Denies vomiting Denies urinary incontinence, Denies urinary hesitancy and Denies urinary urgency Physical exam (Primary Care) Vital Signs: Last Vital Signs BP 140/70 H 02/24/24 15:16 BMI result Body Mass Index 36.7 Tobacco/Smoking Status: Tobacco use Status Tobacco use date assessed 10/25/23 02/24/24 15:14 Patient Tobacco Use Status Never used Tobacco 02/24/24 15:14 e-Cigarette/Vaping Use Never Used 02/24/24 15:14 Thrive Assessment: Date of Thrive Assessment Date Thrive assessed 10/25/23 02/24/24 15:14 Const Orientation/consciousness: patient oriented x3 HENMT Head: Yes normal to inspection, Yes normocephalic and Yes atraumatic Ears: external ears normal Eyes General: appearance normal, both eyes and all related structures Eyelids: Yes eyelids normal Conjunctivae: conjunctivae normal Neck Neck: Yes normal visual inspection and Yes supple Resp Effort & Inspection: normal respiratory effort Auscultation: clear to auscultation bilaterally Cardio Jugular venous distension: no JVD Rate: regular rate Rhythm: regular rhythm Heart sounds: S1 normal heart sound present and S2 normal heart sound present GI Inspection: Yes normal to inspection Palpation (GI): Soft to palpation and nontender Auscultation: normal bowel sounds Skin General skin exam: no rashes or lesions noted Neuro General: patient oriented x3 and no focal motor deficits Extrem General: Yes full ROM Psych Appearance: grossly normal Results AMB Hemoglobin A1c AMB Hemoglobin A1c 7.4 % Last Edit by JAMES Monge on 02/24/24 15:4 3 Results Reviewed Results Reviewed: Laboratory Last Values Hgb A1c (Clinic) 7.4 % (4.0-6.0) H 02/24/24 15:15 Assessment and Plan Assessment & Plan (1) Seropositive rheumatoid arthritis: Comment: ++RF+++CCP dx in her 40s Humira:08/29 - 03/30 -active disease on exam Dillon:04/29-08/30 - active disease on exam Xezuly:08/30-12/29- active disease on exam Marlinra: 01/2021- stopped due to rash Orencia: 01/2021 - present effective MTX in the past - transaminitis Code(s): M05.9 - Rheumatoid arthritis with rheumatoid factor, unspecified Plan: Continue Orencia. Follow up with rheumatology. (2) Diabetes: Code(s): E11.9 - Type 2 diabetes mellitus without complications Qualifiers: Diabetes mellitus type: type 2 Diabetes mellitus roster clerk insulin use: without roster clerk use Diabetes mellitus complication status: with hyperglycemia Qualified Code(s): E11.65 - Type 2 diabetes mellitus with hyperglycemia Plan: Start Ozempic. Continue MEtformin. A1c goal is equal or less than 7 %. (3) Essential hypertension: Code(s): I10 - Essential (primary) hypertension Plan: Increase Lisinopril from 5 mg to 10 mg. BP goal is equal or less than 130/80. (4) Dyslipidemia: Code(s): E78.5 - Hyperlipidemia, unspecified Plan: Continue statin. Orders: Orders AMB Hemoglobin A1c Today E11.65 - Type 2 diabetes mellitus with hyperglycemia Microalbumin, Random (w Creat) Today E11.9 - Type 2 diabetes mellitus without complications Comprehensive [place]. Panel Fast Today E11.65 - Type 2 diabetes mellitus with hyperglycemia Lipid Panel Today E78.5 - Hyperlipidemia, unspecified Medications: New lisinopril 10 mg PO DAILY 90 tabs 0RF 90 days semaglutide (Ozempic) for 4 weeks 0.25 mg (0.368 mL) subcut QWEEK 1.472 mL 0RF 4 weeks E11.65 - Type 2 diabetes mellitus with hyperglycemia Discontinued lisinopril Discontinued Reason: Patient Completed Course 5 mg PO DAILY 90 days 90 tabs 0RF Coding Level of Care Code Est Pt Level 4 (34322) Diagnoses Seropositive rheumatoid arthritis M05.9 Type 2 diabetes mellitus with hyperglycemia, without long-term current use of insulin E11.65 Diabetes mellitus type: type 2 Diabetes mellitus roster clerk insulin use: without [facility] use Diabetes mellitus complication status: with hyperglycemia Essential hypertension I10 Dyslipidemia E78.5 Time Spent (min) 23
[2024-02-24 15:16] VITALS: BP 140/70; BMI 36.7
== END 2024-02-24 15:44 | disposition home or self-care (01) ==
PROVIDERS: PCP Internal Medicine; Visit Provider Internal Medicine
DX: E11.65 Type 2 diabetes mellitus with hyperglycemia (principal); M05.9 Rheumatoid arthritis with rheumatoid factor, unspecified; I10 Essential (primary) hypertension; E78.5 Hyperlipidemia, unspecified
CPT/HCPCS: 83036; 99214

== ENCOUNTER 2024-03-06 08:16 | Emergency (ER) | payer OTHER, SELFPAY ==
--- NOTE | ~2024-03-06 | CT_ITS ---
EXAMINATION: CT ABDOMEN AND PELVIS WITH CONTRAST CLINICAL INFORMATION: Right-sided abdominal pain question status post cholecystectomy COMPARISON: Ultrasound abdomen from 12/04/2023, CT abdomen from 12/07/2023 TECHNIQUE: Multidetector volumetric images were obtained from the superior aspect of the liver through the pubic symphysis following administration 85 mL of Omnipaque 350 intravenous contrast. Sagittal and coronal reformatted images were obtained on the technologist's workstation. Oral contrast: No This CT examination was performed using dose optimization techniques as appropriate, variously including the following: *Automated exposure control *Adjustment of mA and/or kV according to patient size (this includes techniques or standardized protocols for targeted exams where dose is matched to indication/reason for exam; i.e. extremities or head) *Use of iterative reconstruction technique DLP: 765 mGy-cm FINDINGS: LUNG BASES: Basilar atelectasis. No pneumothorax. No large pleural effusion. LIVER, GALLBLADDER, AND BILIARY TREE: Liver is enlarged measuring 19.4 cm with decreased attenuation suggesting hepatic steatosis. No focal hepatic lesion or biliary ductal dilatation is present. The gallbladder is decompressed versus surgically absent. PANCREAS: Unremarkable. SPLEEN: Unremarkable. ADRENAL GLANDS: Unremarkable. KIDNEYS AND URETERS: Right extrarenal pelvis. The kidneys are normal in size, shape, and attenuation. No hydronephrosis, hydroureter, or calculi seen. No perinephric stranding. BLADDER: Unremarkable. GASTROINTESTINAL TRACT: The small and large bowel are unremarkable. The appendix is unremarkable. ABDOMINAL WALL: Small fat filled umbilical hernia. LYMPH NODES: No enlarged lymph nodes per size criteria. VASCULAR: Unremarkable. PELVIC VISCERA: Anteverted uterus. OSSEOUS STRUCTURES: Multilevel degenerative changes of the thoracolumbar and lumbosacral spine CT/CT abdomen pelvis w IV con IMPRESSION: 1. No acute process of the abdomen or pelvis identified. 2. Enlarged liver with decreased attenuation suggesting hepatic steatosis. 3. Gallbladder is decompressed versus surgically absent. 4. Small fat filled umbilical hernia.
[2024-03-06 08:24] VITALS: BP 194/71; PULSE 79; RESP 18; TEMP 36.3; O2SAT 97; BMI 40.6
[2024-03-06 09:00] LABS: MANUAL DIFF FLAG NO
[2024-03-06 09:02] LABS: Appearance Urine Clear; Color Urine Yellow; Glucose Urine UA >=1000 mg/dL (Negative); Leukocyte Esterase Urine Negative (Negative); Nitrite Urine Negative (Negative); Specific Gravity - Urine 1.025 (1.005-1.025); UMIC TRIGGER UACC YES; Urine Blood Negative (Negative); Urine Ketones Trace mg/dL (Negative); Urine Protein Negative (Neg-Trace)
[2024-03-06 09:07] LABS: Bacteria Urine None Seen (None Seen); Hyaline Casts Urine 0-2 /LPF (0-2); RBC Urine 0-2 /HPF (0-2); Squamous Epithelial Cell Urine 0-2 /HPF (0-2); WBC Urine 0-5 /HPF (0-5)
--- NOTE | 2024-03-06 09:07 | ED_ITS ---
HPI - Abdominal Pain General Chief Complaint: Abdominal Pain Stated Complaint: R sided abd pain into back Time Seen by Provider: 03/06/24 08:38 Source: patient and per diem interpreter Mode of arrival: ambulatory History of Present Illness ED Provider: Dr Carranza HPI narrative: 64-year-old female with history hypertension presents with months of right-sided abdominal discomfort, patient is states she is status post cholecystectomy, she denies any associated nausea/vomiting/fever/chills but does describe some urinary discomfort. Related Data Previous Rx's ?Medication ?Instructions ?Recorded albuterol sulfate 90 mcg/actuation 2 inh PO Q4H PRN shortness of 08/13/20 aerosol inhaler breath or wheezing #8.5 grams docusate sodium 100 mg capsule 100 mg PO BID #30 caps 12/07/22 (Col-Rite) blood sugar diagnostic (FreeStyle #50 ea 02/10/23 Lite Strips) blood-glucose meter (FreeStyle #1 ea 02/10/23 Lite Meter kit) lancets 28 gauge (FreeStyle #100 ea 02/10/23 Lancets) cock up splint #1 ea 03/03/23 tizanidine 2 mg tablet 2 mg PO BID PRN for muscle spasm 05/04/23 #60 tabs albuterol sulfate 2.5 mg/3 mL 2.5 mg (3 mL) inhalation Q4-6H PRN 06/29/23 (0.083 %) solution for nebulization shortness of breath or wheezing 30 days #90 mL metformin 1,000 mg tablet 1,000 mg PO BID 90 days #180 tabs 06/29/23 rosuvastatin 10 mg tablet 10 mg PO DAILY 90 days #90 tabs 10/25/23 celecoxib 100 mg capsule 100 mg PO BID PRN for pain 30 days 11/25/23 #60 caps gabapentin 300 mg capsule 300 mg PO BID pain 30 days #60 caps 02/03/24 lidocaine 5 % topical patch See Rx Instructions topical 02/03/24 .COMPLEX pain #30 ea Orencia ClickJect 125 mg/mL 125 mg subcut QWEEK #4 mL 02/07/24 subcutaneous auto-injector (abatacept) blood pressure monitor #1 ea 02/07/24 fluticasone propionate 220 2 puff inhalation BID asthma 30 02/23/24 mcg/actuation HFA aerosol inhaler days #12 grams ipratropium 20 mcg-albuterol 100 2 puff inhalation Q4H ASTHMA/COUGH 02/23/24 mcg/actuation mist for inhalation 30 days #4 grams (Combivent Respimat) lisinopril 10 mg tablet 10 mg PO DAILY 90 days #90 tabs 02/24/24 semaglutide 0.25 mg or 0.5 mg (2 0.25 mg (0.368 mL) subcut QWEEK 4 02/24/24 mg/3 mL) subcutaneous pen injector weeks #1.472 mL (Ozempic) Allergies Allergy/AdvReac Type Severity Reaction Status Date / Time cyclobenzaprine Allergy Intermediate Dizziness Verified 03/06/24 08:26 [From Flexeril] orphenadrine [From Norflex] Allergy Intermediate Dizziness Verified 03/06/24 08:26 sarilumab [From Kevzara] Allergy Intermediate Rash Verified 03/06/24 08:26 Review of Systems Review of Systems Pertinent positives and negatives as stated in HPI [facility] Past Medical History Source: nursing notes reviewed Medical History Rheumatic fever TIA (transient ischemic attack) Right-sided back pain History of COVID-19 Asthma exacerbation Hospital discharge follow-up Sacroiliitis Renal calculi Costovertebral angle tenderness Burning with urination Disc degeneration, lumbar Spondylosis of cervical spine Spondylosis of lumbar spine Pleuritic pain Restrictive lung disease Morbid obesity Asthma Dyslipidemia Essential hypertension Vaginal modesta Seropositive rheumatoid arthritis Rheumatoid arthritis Diabetes Surgical History History of cholecystectomy Hx of colonoscopy (09/01/19) History of surgery on wrist Family History Family History Father Diabetes mellitus Myocardial infarction Hypertension CVD (cardiovascular disease) Mother Diabetes mellitus CVD (cardiovascular disease) Sister No problems noted. Son No problems noted. Son No problems noted. Son No problems noted. Daughter Thyroiditis Daughter No problems noted. Daughter No problems noted. Daughter No problems noted. Daughter No problems noted. Social History Social History Housing: Apartment Unable to assess alcohol history related to: Unknown Alcohol intake: unknown Patient Tobacco Use Status: Never used Tobacco e-Cigarette/Vaping Use: Never Used Second Hand Smoke Exposure: No Advance Directives: No Advance Directives Information Provided: Yes Do you have a plan to hurt others: No Plan service: No Current occupational status: disabled Sexual orientation: Straight/Heterosexual Gender identity: Female Cognitive needs: No Hearing needs: No Vision needs: No Physical Exam ED Vital Signs: Vital Signs - 24 hr 03/06/24 08:24 03/06/24 11:10 Temperature 97.3 F Pulse Rate 79 61 Respiratory Rate 18 16 Blood Pressure 194/71 H 179/87 H Pulse Oximetry 97 98 Oxygen Delivery Method Room Air Room Air BMI result Body Mass Index 40.6 VITAL SIGNS: Reviewed. GENERAL: Well developed, well nourished, in no acute distress. HEAD: Normocephalic/atraumatic EYES: PERRLA, EOMI EARS: Ext canals without abnormality NOSE: Nares patent bilateral OROPHARYNX: no oral lesions noted, posterior pharynx clear NECK: Supple, no adenopathy LUNGS: Normal breath sounds. No adventitious sounds or accessory muscle use. SpO2<97> CARDIOVASCULAR: Regular rate and rhythm without noted murmurs ABDOMEN: Soft, tenderness to palpation from right upper quadrant to right lower quadrant without rebound, non-distended with bowel sounds. MUSCULOSKELETAL: No tenderness, deformities, or effusions noted on gross inspection. EXTREMITIES: No cyanosis, clubbing or edema. SKIN: Inspection of the skin reveals no rashes NEUROLOGIC: Alert and oriented x 4. Strength and sensation to light touch were grossly intact x 4. Medical Decision Making Medical Decision Making [facility] Narrative: 0900: 64-year-old female with history and clinical presentation, DDX: Arthritis, renal colic, pyelonephritis, doubt choledocholithiasis from a retained stone and pretty sure patient is status post cholecystectomy although she was unsure. I reviewed hematologic indices which are negative for leukocytosis/anemia and patient has stable thrombocytopenia. Chemistry indices negative for KAROLINE/electrolyte or liver enzyme derangements but she has noted hyperglycemia. Urinalysis negative for UTI or hematuria. CT scan negative for intra-abdominal pathology. Patient provided with combination analgesics and my interpretation is that patient is experiencing arthritis/musculoskeletal pain associated with chronic back pain and was directed to her primary care doctor. Differential Diagnosis Differential Diagnoses: The differential diagnosis associated with the presentation includes Please see the discussion above Admission/Observation Consideration of admission/observation: Escalation of care including admission/observation considered Please see the discussion above Lab Data MDM Lab Attestation statement: I reviewed the patient's lab results. Please see the discussion above 03/06/24 08:56 03/06/24 08:56 Labs: Lab Results 03/06/24 03/06/24 Range/Units 08:51 08:56 WBC 5.6 (4.8-10.8) X10*3/uL RBC 4.15 L (4.20-5.50) X10*6/uL Hgb 13.2 (12.0-16.0) g/dl Hct 37.9 (37.0-47.0) % MCV 91.3 (80.0-98.0) fL MCH 31.8 (27.0-33.0) pg MCHC 34.8 (31.0-35.0) g/dl RDW 12.1 (11.0-16.0) % Plt Count 148 L (160-400) X10*3/uL MPV 11.4 (9.4-12.3) fL Immature Gran % (Auto) 0.7 H (0.0-0.4) % Neut % (Auto) 51.1 (45-73) % Lymph % (Auto) 33.5 (20-40) % [place] % (Auto) 5.9 (2-11) % Eos % (Auto) 8.3 H (0-4) % Baso % (Auto) 0.5 (0-2) % Lymph # (Auto) 1.9 (1.2-4.9) X10*3/uL [place] # (Auto) 0.3 (0.1-1.2) X10*3/uL Eos # (Auto) 0.5 H (0.0-0.4) X10*3/uL Baso # (Auto) 0.0 (0.0-0.2) X10*3/uL Abs Immat Gran (auto) 0.04 H (0.00-0.03) X10*3/uL Absolute Neuts (auto) 2.8 (2.0-8.3) x10*3/uL Absolute Nucleated RBC 0.000 (0.0-0.012) X10*3/uL Nucleated RBC % (auto) 0.0 (0.0-0.2) /100WBC Sodium 139 (135-145) mmol/L Potassium 3.6 (3.3-5.1) mmol/L Chloride 107 (96-108) mmol/L Carbon Dioxide 25 (22-29) mmol/L Anion Gap 11 L (12-20) BUN 18 H (9-16) mg/dL Creatinine 0.85 (0.5-1.4) mg/dL Estim Creat Clear Calc 71.4 Estimated GFR > 60 Random Glucose 339 H (60-115) mg/dL Calcium 8.9 (8.4-10.2) mg/dL Total Bilirubin 0.8 (0.0-1.0) mg/dL Direct Bilirubin 0.3 (0.0-0.5) mg/dL AST 25 (5-31) U/L ALT 25 (0-31) U/L Alkaline Phosphatase 110 (39-117) U/L Total Protein 6.7 (6.5-8.0) g/dL Albumin 3.6 (3.5-5.0) g/dL Urine Color Yellow Urine Appearance Clear Urine pH 6.0 (5.0-9.0) Ur Specific [place] 1.025 (1.005-1.025) Urine Protein Negative (Neg-Trace) mg/dL Urine Glucose (UA) >=1000 H (Negative) mg/dL Urine Ketones Trace (Negative) mg/dL Urine Blood Negative (Negative) Urine Nitrite Negative (Negative) Ur Leukocyte Esterase Negative (Negative) Urine RBC 0-2 (0-2) /HPF Urine WBC 0-5 (0-5) /HPF Ur Squamous Epith Cells 0-2 (0-2) /HPF Urine Bacteria None Seen (None Seen) Hyaline Casts 0-2 (0-2) /LPF Radiology Impression Discussion of test interpretation with radiology: I have reviewed the radiologist's reading. Radiologist Impression: Please see the discussion above External Record Review External record reviewed: Outpatient record, Prior outpatient labs and Prior outpatient radiology Chronic Conditions Patient?s care impacted by: Diabetes Medications Administered Discontinued Medications Generic Name Dose Route Start Last Admin Trade Name Freq PRN Reason Stop Dose Admin Iohexol 100 ml 03/06/24 10:38 03/06/24 10:39 Iohexol 350 Mg/Ml 100 Ml Infus..Btl IV 03/06/24 10:39 85 ml ONCE ONE Administration Critical Care Time Critical Care Time Critical Care Time: Yes Total Critical Care Time: 45 Attestation: I personally attest to this time spent taking care of the patient. Discharge Plan Discharge Clinical Impression: Right flank pain, Chronic back pain, Musculoskeletal pain Patient Disposition: Home, Self-Care Instructions: Flank Pain (ED), Musculoskeletal Pain (ED) Additional Instructions: 1. Resume all home medications as prescribed. 2. Recommend [id number] Tylenol/ibuprofen/lidocaine patch for pain control. 3. Follow-up with your primary care doctor. Return to the ER for any worsening symptoms. Prescriptions: No Action albuterol sulfate 90 mcg/actuation HFA aerosol inhaler 2 inh PO Q4H PRN (Reason: shortness of breath or wheezing) Qty: 8.5 1RF (DME) FreeStyle Lite Strips Strip See Rx Instructions .ROUTE .MEDSUPPLY Qty: 50 11RF Rx Instructions: Use 1 test strip once a day (DME) blood-glucose meter [FreeStyle Lite Meter] Kit See Rx Instructions .ROUTE .MEDSUPPLY Qty: 1 0RF Rx Instructions: E11.9 ONCE A DAY (DME) lancets [FreeStyle Lancets] 28 gauge misc See Rx Instructions .ROUTE .MEDSUPPLY Qty: 100 11RF Rx Instructions: Use 1 lancet once a day as needed tizanidine 2 mg tablet 2 mg PO BID PRN (Reason: for muscle spasm) Qty: 60 3RF albuterol sulfate 2.5 mg /3 mL (0.083 %) solution for nebulization 2.5 mg inhalation Q4-6H PRN (Reason: shortness of breath or wheezing) 30 Days Qty: 90 2RF celecoxib 100 mg capsule 100 mg PO BID PRN (Reason: for pain) 30 Days Qty: 60 1RF Rx Instructions: Take it with food and full glass of water. Avoid other NSAIDs. Orencia ClickJect 125 mg/mL auto-injector 125 mg subcut QWEEK Qty: 4 2RF (DME) blood pressure monitor Kit See Rx Instructions .Route Qty: 1 0RF Rx Instructions: As directed docusate sodium [Col-Rite] 100 mg capsule 100 mg PO BID Qty: 30 0RF lisinopril 10 mg tablet 10 mg PO DAILY 90 Days Qty: 90 0RF Ozempic 0.25 mg or 0.5 mg (2 mg/3 mL) pen injector 0.25 mg subcut QWEEK 28 Days Qty: 1.472 0RF Rx Instructions: for 4 weeks rosuvastatin 10 mg tablet 10 mg PO DAILY 90 Days Qty: 90 1RF metformin 1,000 mg tablet 1,000 mg PO BID 90 Days Qty: 180 1RF Combivent Respimat 20-100 mcg/actuation mist 2 puff inhalation Q4H 30 Days Qty: 4 3RF fluticasone propionate 220 mcg/actuation HFA aerosol inhaler 2 puff inhalation BID 30 Days Qty: 12 5RF Rx Instructions: administer with spacer gabapentin 300 mg capsule 300 mg PO BID 30 Days Qty: 60 0RF lidocaine 5 % adhesive patch,medicated See Rx Instructions topical .COMPLEX Qty: 30 3RF Rx Instructions: leave on most painful area for up to 12 hrs topical (DME) cock up splint See Rx Instructions .Route .MEDSUPPLY Qty: 1 0RF Rx Instructions: wear on the right wrist at night Referrals: Aniyah Gonzalez MD [Primary Care Provider] - Print Language: [place]
[2024-03-06 09:12] LABS: Basophils Percent Auto 0.5 % (0-2); Eosinophils Absolute Auto 0.5 X10*3/uL (0.0-0.4); Eosinophils Percent Auto 8.3 % (0-4); Hematocrit 37.9 % (37.0-47.0); Hemoglobin 13.2 g/dl (12.0-16.0); Imm Gran Abs Auto 0.04 X10*3/uL (0.00-0.03); Imm Gran Pct Auto 0.7 % (0.0-0.4); Lymphocytes Absolute Auto 1.9 X10*3/uL (1.2-4.9); Lymphocytes Percent Auto 33.5 % (20-40); Mean Corpuscular HGB Conc 34.8 g/dl (31.0-35.0); Mean Corpuscular Hemoglobin 31.8 pg (27.0-33.0); Mean Corpuscular Volume 91.3 fL (80.0-98.0); Mean Platelet Volume 11.4 fL (9.4-12.3); Monocytes Absolute Auto 0.3 X10*3/uL (0.1-1.2); Monocytes Percent Auto 5.9 % (2-11); Neutrophils Absolute Auto 2.8 x10*3/uL (2.0-8.3); Neutrophils Percent Auto 51.1 % (45-73); Platelet Count 148 X10*3/uL (160-400); Red Blood Count 4.15 X10*6/uL (4.20-5.50); Red Cell Distribution Width 12.1 % (11.0-16.0); White Blood Count 5.6 X10*3/uL (4.8-10.8)
[2024-03-06 09:20] LABS: Alanine Aminotransferase 25 U/L (0-31); Albumin Level 3.6 g/dL (3.5-5.0); Alkaline Phosphatase 110 U/L (39-117); Anion Gap 11 (12-20); Aspartate Amino Transferase 25 U/L (5-31); Bilirubin Direct 0.3 mg/dL (0.0-0.5); Bilirubin Total 0.8 mg/dL (0.0-1.0); Blood Urea Nitrogen 18 mg/dL (9-16); Calcium 8.9 mg/dL (8.4-10.2); Carbon Dioxide 25 mmol/L (22-29); Chloride 107 mmol/L (96-108); Creatinine Clr Calc Pharmacy 71.4; Estimated Glomerular Filt Rate > 60; Glucose Random 339 mg/dL (60-115); Potassium 3.6 mmol/L (3.3-5.1); Sodium 139 mmol/L (135-145); Total Protein 6.7 g/dL (6.5-8.0)
[2024-03-06] MEDS: iohexoL 350 MG/ML 100 ML INFUS..BTL IV (10:39)
[2024-03-06 11:10] VITALS: BP 179/87; PULSE 61; RESP 16; O2SAT 98
[2024-03-06] MEDS: Ibuprofen 400 MG TABLET PO (11:57)
[2024-03-06] MEDS: Acetaminophen 325 MG TABLET 975 MG PO (11:58)
[2024-03-06 12:11] VITALS: BP 179/87; PULSE 61; RESP 16; TEMP 36.3; O2SAT 98
== END 2024-03-06 12:14 | disposition home or self-care (01) ==
PROVIDERS: Emergency Provider Student in an Organized Health Care Education/Training Program; PCP Internal Medicine
DX: R10.9 Unspecified abdominal pain (principal); G89.29 Other chronic pain; M54.9 Dorsalgia, unspecified; M79.18 Myalgia, other site; I10 Essential (primary) hypertension; J45.909 Unspecified asthma, uncomplicated; Z86.73 Personal history of transient ischemic attack (TIA), and cerebral infarction without residual deficits; Z90.49 Acquired absence of other specified parts of digestive tract
CPT/HCPCS: 36415; 74177; 80048; 80076; 81001; 81003; 85025; 99284; Q9967

== ENCOUNTER → 2024-03-07 08:53 | Outpatient (BNVA) | payer OTHER, SELFPAY | PROVIDERS: PCP Internal Medicine; Visit Provider Nurse Practitioner Family | DX: M62.830 Muscle spasm of back (principal); M47.816 Spondylosis without myelopathy or radiculopathy, lumbar region; M54.16 Radiculopathy, lumbar region; M46.1 Sacroiliitis, not elsewhere classified; M54.9 Dorsalgia, unspecified | CPT/HCPCS: 99212 ==

== ENCOUNTER 2024-03-07 09:39 | Outpatient (AMB) | payer OTHER, SELFPAY ==
--- NOTE | 2024-03-07 09:41 | MHC.OFFVIS ---
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 Patient reports right sided back pain has been worsening and mid back pain has been relief. Patient reports significant right-sided back pain that radiates into her right buttock and lateral right hip and posteriorly into her right lower extremity with associated numbness tingling and intermittent weakness. Patient reports she recently restarted Ozempic and continues to take metformin with A1c at goal. She underwent in the past lumbar medial branch blocks, bilateral sacroiliac joint injections and therapeutic transforaminal epidural steroidal injections ranging mild to moderate pain relief. Patient also had lumbar Sprint PNS trial last year which she says provided her partial and temporary pain relief. She is hesitant to continue his injections at this time and would like to pursue physical therapy. She also underwent Neurosurgical evaluation recently and was deemed non-surgical candidate. Patient reports gabapentin 300 mg b.i.d. provided her mild pain relief without any side effects. She also continues to take Tylenol, Motrin, and lidocaine patches with continued symptoms. Patient reports ER visit yesterday for right-sided abdominal pain. CT scan of abdomen and pelvis is noted below. Patient denies any fever, abdominal or groin pain, bladder or bowel dysfunction or saddle anesthesia. She does report intermittent right-sided abdominal pain status post cholecystectomy. PRIOR: Patient presents today for follow up for right sided thoracic back pain. She had follow up with Neurosurgery and was deemed non-surgical. Patient reports diffuse body pain, mostly throughout her whole back including her upper, middle and lower back. The middle of her back on the right side affect her the most. Pain increases with movements, ADLs, coughing or sleeping on her right side. She has a mild to moderate degenerative disc at L5-S1 per most recent lumbar spine MRI and stable 6 mm right pulmonary nodule per CT scan in 2022 for which she follows with Pulmonology. Patient was sent for thoracic spine xray by her PCP last year, this has not been completed yet. Patient also sees Rheumatology and takes Orencia. Reports recent home fasting blood sugar of 133 yesterday morning. Most recent A1C=9.0 per 09/23/23. Denies any fever, dizziness, dyspnea, shortness of breaths, chest pain, hemoptysis, weakness, bladder or bowel dysfunction or saddle anesthesia. PRIOR: Patient present today for follow up for worsening of low back pain with right sided radiculopathy symptoms. She reports mild to moderate pain relief in March and April since previous injection in February, B/L L5-S1 TFESI. Denies any recent trauma, injury or falls. She ambulates with slow antalgic gait with mild limping to shift her weight to the left side. Patient reports neck through lower back pain that travels into her right buttock, thigh and into right calf and left heel and foot with numbness, tingling and occasional weakness with prolonged walking. She also reports severe back pain with bending forward or lifting and avoids bending down as she is not able to get up from bending due to severe radiculopathy. Patient reports she is able to tolerate 20 minutes of walking or less before she needs to rest due to pain increase. Patient also has seropositive rheumatoid arthritis and states widespread joint pain as well. She is no longer interested with injections, especially cortisone injections due to diabetes and as well as low efficacy of injections in the past. Most recent A1C was 7.0. Patient rates her pain 9/10. Denies any fever, dizziness, chest pain, shortness of breath, foot drop, bladder or bowel incontinence, or saddle anesthesia. PRIOR: Patient presents today to assess response to B/L L5-S1 TFESI on 02/19/[address] Richardson. Patient reports 50% pain relief in her lower back and 90% pain relief for her radicular pain. She denies any numbness, tingling, weakness or bilateral leg pain today and reports these symptoms have resolved since injection. Unfortunately for her axial low back pain, she has tried Sprint PNS trial with minimal pain relief and therefore requested us to removed it earlier in the PNS therapy. Patient rates her axial low back pain at 9/10 worse with movements, extension or her daily activities. She does have significant lumbar degenerative disc disease with S-shaped thoracolumbar scoliotic curvature, multilevel ligamentum flavum thickening, grade 1 degenerative spondylolisthesis at L5-S1, multilevel discogenic and facetogenic degenerative changes, as well as neuroforaminal and central canal stenosis. She denies any fever, bladder or bowel incontinence or saddle anesthesia. Patient also reports history of kidney stones and significant right sided flank pain with CVA tenderness on the right. She denies any fever, hematuria but reports significant pain with urination. She requests referral to Urology services. PRIOR: Patient is a pleasant 62 years old female status post Unilateral Right L1 and L4 Sprint PNS on 11/19/[address] Richardson. Patient reports less than 20% pain relief and requests me to take Sprint leads out. She reports minimal to no improvement with her daily activities, social interactions, mobility or sleep. Patient was seen in our dressing change and wound check on 11/23/21 and 12/02/22 and has reported similar complaints. Minimal paresthesia at the back at 75 and 78 stimulation. Patient reports uncomfortable sensations with higher stimulation and no pain relief. The dressing was removed today. Leads insertion sites look clean, dry, intact, no redness, no swelling, no pathological discharge. Area was cleansed with Chloraprep. Leads pulled with tips intact and the area was cleansed again with Chloraprep, applied Bacitracin and covered it with gauze and Tegaderm film dressing. Patient is also suffers facetogenic, discogenic and SIJ pain generators. She requests a therapeutic injection for her radicular pain. She reports an increase in lower back pain that radiates to both of her lower extremities posteriorly with numbness and tingling in her feet and shins bilaterally. Reports right lower extremity weakness with ambulation. Patient reports she received KISHAN injections in [place] and these provided her significant pain relief. Her most recent A1C was 7.1 on 10/16/22. We reviewed lumbar spine MRI in greater detail with the patient and her son. I have explained to patient that due to significant multilevel ligamentum flavum thickening, therapeutic injections may be less effective. Given BMI >41, she is not a good candidate for MILD procedure. Patient reports she is trying to lose weight with diet and diabetic medications but has been having difficulty walking due to axial lower back pain with radiculopathy. She denies any fever, abdominal or groin pain, bladder or bowel incontinence or saddle anesthesia. She was seen in our ER department on 12/07/22 for right sided abdominal pain with a benign examination. CT scan of abdomen and pelvis showed hepatomegaly and hepatic steatosis. Questionable mild nodularity of the liver contour which could be seen with cirrhosis. Moderate degree of colonic and rectal stool burden. No evidence of bowel obstruction. Normal appendix. No acute or aggressive appearing osseous abnormalities. Degenerative changes of the spine. Again noted increased sclerosis with subchondral cystic changes in the pubic symphysis, suggesting osteitis pubis or degenerative changes, slightly increased since 2019. Patient reports she takes Milk of Magnesia for constipation with good results. PRIOR Dr. Richardson 10/28/22: Ms. Matias is on the phone today to discuss the results unilateral right diagnostic L2-L3 L4 does ramus L5 medial branch block. She reports 100% pain relief in the area of the injections. She reports better mobility better social interactions better activities of daily living. She reports that upper portion of her pain in the upper lumbar lower thoracic spine remains with pain. I offered her sprint PNS to treat her condition. I am planning to insert L2 and L5 possibly L1 and L4 right stimulation I warned her that this procedure she needs to go to will be under minimal sedation. I also offered her radiofrequency ablation but in her case of widespread pain I believe that sprint is much better procedure to alleviate her pain. Prior:. She has multiple changes on the MRI is dictated as below. Again she was interrogated about her pain. She insists that her pain is on the right side of the lumbar spine and radiates to the right thigh to the level of the knee but not below that level. She reports that flexing backwards aggravates her pain.. She reports that this pain started over 3 years ago. I was under impression that her pain is coming from sacroiliac joints . she reports that the her pain is getting worse when she is trying to stretch her leg on the right. I discussed the situation with her. She is convinced that there is some changes in her lumbar spine which are the cause of the pain. I canceled the trial of peripheral nerve stimulation of sacroiliac joint innervation she was scheduled previously. The trial was based on the injections which were performed before into her sacroiliac joints and gave her significant pain relief. However she received steroid with this injection and she had her blood sugar elevated. I offered her today to perform diagnostic sacroiliac joint injection however patient adamantly refused and insisted on going for the MRI. We received information from [place] about injection she received there. It was unknown level epidural steroid injection during which she received 80 mg of Kenalog. Given 80 mg of Kenalog alone anywhere can relieve any kind of pain. We performed therapeutic bilateral sacroiliac joint injection she reports 45 days of excellent pain relief she reports better mobility better social interactions better activities of daily living. Her past medical history significant for rheumatoid arthritis she is on Orencia, she also suffers from diabetes and hypertension, she has severe arthralgia. She also reports that she has some kidney damage from the medication she receives for rheumatoid arthritis. She is also suffering from truncal obesity. She is morbidly obese. She is also diabetic and takes diabetic medication [facility] Medical History Rheumatic fever TIA (transient ischemic attack) Right-sided back pain History of COVID-19 Asthma exacerbation Hospital discharge follow-up Sacroiliitis Renal calculi Costovertebral angle tenderness Burning with urination Disc degeneration, lumbar Spondylosis of cervical spine Spondylosis of lumbar spine Pleuritic pain Restrictive lung disease Morbid obesity Asthma Dyslipidemia Essential hypertension Vaginal modesta Seropositive rheumatoid arthritis Rheumatoid arthritis Diabetes Surgical History History of cholecystectomy Hx of colonoscopy (09/01/19) History of surgery on wrist Family History Father Diabetes mellitus Myocardial infarction Hypertension CVD (cardiovascular disease) Mother Diabetes mellitus CVD (cardiovascular disease) Sister No problems noted. Son No problems noted. Son No problems noted. Son No problems noted. Daughter Thyroiditis Daughter No problems noted. Daughter No problems noted. Daughter No problems noted. Daughter No problems noted. Social History Housing: Apartment Unable to assess alcohol history related to: Unknown Alcohol intake: unknown Patient Tobacco Use Status: Never used Tobacco e-Cigarette/Vaping Use: Never Used Second Hand Smoke Exposure: No service: No Current occupational status: disabled Sexual orientation: Straight/Heterosexual Gender identity: Female Cognitive needs: No Hearing needs: No Vision needs: No Female Reproductive History Menstrual Age of Menarche: 11 Date of menopause: 01/22/10 Review of Systems Const All systems reviewed & are unremarkable except as noted in HPI and below Physical Exam General: Appears afebrile. Alert and oriented. Mood and affect appropriate. Follows and participates in conversation appropriately. Respiratory effort is unlabored. Non productive cough. Able to transition from sit to stand unassisted. Uses cane with ambulation. Ambulates with bilaterally normal heel strike and toe off. GI Inspection: Yes obesity Palpation (GI): Soft to palpation, nontender and no guarding Back/Spine/Pelvis Other: Limited thoracolumbar ROM due to pain. Mild antalgic gait with no limping. Lumbar extension reproduces moderate pain and flexion reproduces mild to moderate pain. Demonstrates 5/5 left and 4/5 right strength of quadriceps bilaterally as well as flexion/dorsiflexion of bilateral feet against resistance. 2+ pedal pulses bilaterally. Diminished patellar and Achilles reflexes bilaterally. Facet loading test positive bilaterally. Chacho's test reproduces right ateral hip pain and mild low back pain. Stinchfield test postivie on the right. Positive Leonela sign bilaterally. Cervical Spine: cervical muscular tenderness, pain with cervical ROM and No Cervical spine tenderness Thoracic/Lumbar Spine: thoracic and lumbar spine normal to inspection, No Thoracic/lumbar spine scar(s), Lasegue's sign positive on the right and localized, pain with thoraco-lumbar ROM, paraspinal muscle tenderness, thoraco-lumbar ROM limited, thoracic spinal tenderness (lower thoracic), lumbar spinal tenderness and straight leg raise positive right at 40 degrees Pelvis: buttock tenderness (right worse than the left) bilaterally and sciatic notch tenderness on the right Sacroiliac joints: bilaterally (right>left) tender to palpation Results Reviewed Results Reviewed: CT ABDOMEN AND PELVIS WITH CONTRAST 03/06/24 OSSEOUS STRUCTURES: Multilevel degenerative changes of the thoracolumbar and lumbosacral spine XR THORACIC SPINE 02/04/24 CLINICAL INFORMATION: Radiculopathy, thoracic region FINDINGS: There are small riblets extending off the T12 vertebral body. There is no fracture or bone destruction there is mild kyphosis There is multilevel disc space narrowing. There is no abnormality of the paraspinal soft tissues. Incidental note is made of degenerative disc disease in the lower cervical spine. IMPRESSION: 1. Mild kyphosis. 2. Multilevel degenerative disc disease. 3. Degenerative disc disease in the lower cervical spine. MR LUMBAR SPINE WITHOUT CONTRAST 08/23/23 CLINICAL INFORMATION: Vertebrogenic back pain. COMPARISON: Lumbar spine MRI 08/11/2022. TECHNIQUE: MRI of the lumbar spine was obtained using routine sequences without contrast. FINDINGS: There is transitional spinal anatomy at the lumbosacral junction with a subdural sacralization of the L5 vertebral segment. The lowest rib-bearing vertebral segment will be designated T12. There is grade 1 anterolisthesis of L4 on L5. Alignment is otherwise normal. Vertebral heights are preserved. No acute bone marrow signal changes. There are mixed degenerative endplate changes at multiple levels. There is loss of intervertebral disc height and T2 signal intensity at L3-L4 and L4-L5. There is disc desiccation at multiple additional levels without substantial loss of intervertebral disc height. The tip of the conus medullaris is located at L1. No mass effect on the conus. Visualized distal cord signal intensity is normal. At T12-L1 the annular contour is normal. No canal or neuroforaminal compromise. At L1-L2 there is a slightly bulging disc. Bilateral facet degenerative change. No canal stenosis. No mass effect on the traversing or foraminal nerve roots. At L2-L3 there is a bulging disc. Bilateral facet degenerative change. Moderate canal stenosis. No mass effect on the traversing or foraminal nerve roots. At L3-L4 there is a diffusely bulging disc. Bilateral facet degenerative change. Moderate canal stenosis. Mild mass effect on the right L3 foraminal nerve root. At L4-L5 there is a bulging disc. Bilateral facet degenerative change. Moderate canal stenosis. Subarticular zone narrowing causes abutment of both traversing L5 nerve roots. No foraminal nerve root compression. At L5-S1 there is no canal or neuroforaminal compromise. Limited visualization the retroperitoneal anatomy reveals no abnormal finding. Psoas and paraspinal muscle groups are symmetric. IMPRESSION: There is transitional spinal anatomy at the lumbosacral junction with partial sacralization of the L5 vertebral segment. The lowest rib-bearing vertebral segment will be designated T12. There is multilevel degenerative spondylosis of the lumbar spine with grade 1 anterolisthesis of L4 on L5 related to facet degenerative changes at this level. Moderate canal stenosis at L2-L3, L3-L4, and L4-L5. A bulging disc in conjunction with facet degenerative change at L3-L4 causes mild mass effect on the right L3 foraminal nerve root. There is also abutment of both traversing L5 nerve roots related to degenerative changes at L4-L5. CT/CT chest w IV con 02/17/23 OSSEOUS STRUCTURES: Degenerative changes of the spine. IMPRESSION: Stable 6 mm right pulmonary nodule adjacent to the minor fissure probably representing a subpleural lymph node. Question mild interstitial lung disease. Assessment & Plan Assessment & Plan (1) Muscle spasm of back: Code(s): M62.830 - Muscle spasm of back Category: Medical (2) Lumbar spondylosis: Code(s): M47.816 - Spondylosis without myelopathy or radiculopathy, lumbar region Category: Medical (3) Lumbar radiculopathy: Code(s): M54.16 - Radiculopathy, lumbar region Category: Medical (4) Right-sided back pain: Code(s): M54.9 - Dorsalgia, unspecified Category: Medical (5) Sacroiliitis: Code(s): M46.1 - Sacroiliitis, not elsewhere classified Category: Medical Plan Discussed recent thoracic xray and recent CT abd/pelvis results of spine as well as reviewed previous spine imaging with patient. She is encouraged to follow up with her PCP for recent ER visit and other findings on recent CT scan. Patient is hesitant to continue his injections at this time and would like to pursue physical therapy for low back, SIJ and right sided radicular symptoms. We discussed repeating SIJ and right L5-S1 TFESI injections. Patient declined injections at this time. Script provided for physical therapy. All questions and concerns have been answered and patient agreed with the plan. Follow up after PT and sooner as needed. Orders: Orders PT Evaluation and Treatment Today M46.1 - Sacroiliitis, not elsewhere classified, M47.816 - Spondylosis without myelopathy or radiculopathy, lumbar region, M54.16 - Radiculopathy, lumbar region, M54.9 - Dorsalgia, unspecified Medications: Changed From gabapentin 300 mg PO BID 30 days 60 caps 0RF pain M47.816 - Spondylosis without myelopathy or radiculopathy, lumbar region, M54.14 - Radiculopathy, thoracic region, M54.6 - Pain in thoracic spine To gabapentin 300 mg PO TID 30 days 90 caps 0RF pain M47.816 - Spondylosis without myelopathy or radiculopathy, lumbar region, M54.14 - Radiculopathy, thoracic region, M54.6 - Pain in thoracic spine Coding Level of Care Code Est Pt Level 4 (36410) Diagnoses Muscle spasm of back M62.830 Lumbar spondylosis M47.816 Lumbar radiculopathy M54.16 Right-sided back pain M54.9 Sacroiliitis M46.1
[2024-03-07 09:47] VITALS: BP 141/79; PULSE 82; O2SAT 97; BMI 40.6
== END 2024-03-07 10:17 | disposition home or self-care (01) ==
PROVIDERS: PCP Internal Medicine; Visit Provider Nurse Practitioner Family
DX: M62.830 Muscle spasm of back (principal); M47.816 Spondylosis without myelopathy or radiculopathy, lumbar region; M54.16 Radiculopathy, lumbar region; M54.9 Dorsalgia, unspecified; M46.1 Sacroiliitis, not elsewhere classified
CPT/HCPCS: 99214

== ENCOUNTER 2024-03-14 10:11 | Emergency (ER) | payer OTHER, SELFPAY ==
[2024-03-14 10:18] VITALS: BP 187/93; PULSE 74; RESP 16; TEMP 36.1; O2SAT 98; BMI 40.6
--- NOTE | 2024-03-14 11:46 | ED.BACK ---
HPI - Back Pain/Injury General Chief Complaint: Back Pain/Injury Stated Complaint: lower back pain Time Seen by Provider: 03/14/24 11:46 Source: patient and family Mode of arrival: ambulatory Limitations: no limitations History of Present Illness ED Provider: Susana DEL RIO HPI Narrative: This is a 64-year-old female history of TIA, kidney stones, asthma, hypertension, diabetes, RA, chronic back pain presenting to the emergency department with complaints of right-sided back pain, reports pain is worse with movement better at rest. Patient states this has been going on for awhile but she wants the pain to go away completely. Saw a adult specialist in December and was advised to follow-up with rheumatology which she followed up with.. Denies urinary/bowel incontinence/retention, saddle paresthesias, numbness, tingling, weakness, recent trauma or trauma at all, fevers, chills, nausea, vomiting, abdominal pain, chest pain and shortness of breath. Related Data Previous Rx's ?Medication ?Instructions ?Recorded albuterol sulfate 90 mcg/actuation 2 inh PO Q4H PRN shortness of 08/13/20 aerosol inhaler breath or wheezing #8.5 grams docusate sodium 100 mg capsule 100 mg PO BID #30 caps 12/07/22 (Col-Rite) blood sugar diagnostic (FreeStyle #50 ea 02/10/23 Lite Strips) blood-glucose meter (FreeStyle #1 ea 02/10/23 Lite Meter kit) lancets 28 gauge (FreeStyle #100 ea 02/10/23 Lancets) cock up splint #1 ea 03/03/23 tizanidine 2 mg tablet 2 mg PO BID PRN for muscle spasm 05/04/23 #60 tabs albuterol sulfate 2.5 mg/3 mL 2.5 mg (3 mL) inhalation Q4-6H PRN 06/29/23 (0.083 %) solution for nebulization shortness of breath or wheezing 30 days #90 mL metformin 1,000 mg tablet 1,000 mg PO BID 90 days #180 tabs 06/29/23 rosuvastatin 10 mg tablet 10 mg PO DAILY 90 days #90 tabs 10/25/23 celecoxib 100 mg capsule 100 mg PO BID PRN for pain 30 days 11/25/23 #60 caps lidocaine 5 % topical patch See Rx Instructions topical 02/03/24 .COMPLEX pain #30 ea Orencia ClickJect 125 mg/mL 125 mg subcut QWEEK #4 mL 02/07/24 subcutaneous auto-injector (abatacept) blood pressure monitor #1 ea 02/07/24 fluticasone propionate 220 2 puff inhalation BID asthma 30 02/23/24 mcg/actuation HFA aerosol inhaler days #12 grams ipratropium 20 mcg-albuterol 100 2 puff inhalation Q4H ASTHMA/COUGH 02/23/24 mcg/actuation mist for inhalation 30 days #4 grams (Combivent Respimat) lisinopril 10 mg tablet 10 mg PO DAILY 90 days #90 tabs 02/24/24 semaglutide 0.25 mg or 0.5 mg (2 0.25 mg (0.368 mL) subcut QWEEK 4 02/24/24 mg/3 mL) subcutaneous pen injector weeks #1.472 mL (Ozempic) gabapentin 300 mg capsule 300 mg PO TID pain 30 days #90 caps 03/07/24 lidocaine 5 % topical patch 1 patch topical DAILY PRN pain #15 03/14/24 ea prednisone 20 mg tablet 20 mg PO DAILY 5 days #5 tabs 03/14/24 Allergies Allergy/AdvReac Type Severity Reaction Status Date / Time cyclobenzaprine Allergy Intermediate Dizziness Verified 03/14/24 10:22 [From Flexeril] orphenadrine [From Norflex] Allergy Intermediate Dizziness Verified 03/14/24 10:22 sarilumab [From Kevzara] Allergy Intermediate Rash Verified 03/14/24 10:22 Review of Systems Review of Systems: Yes all other systems are reviewed and are negative PMFSH Past Medical History Attestation statement: The following information was validated with the patient. Source: old records reviewed and nursing notes reviewed Medical History Rheumatic fever TIA (transient ischemic attack) Right-sided back pain History of COVID-19 Asthma exacerbation Hospital discharge follow-up Sacroiliitis Renal calculi Costovertebral angle tenderness Burning with urination Disc degeneration, lumbar Spondylosis of cervical spine Spondylosis of lumbar spine Pleuritic pain Restrictive lung disease Morbid obesity Asthma Dyslipidemia Essential hypertension Vaginal modesta Seropositive rheumatoid arthritis Rheumatoid arthritis Diabetes Surgical History History of cholecystectomy Hx of colonoscopy (09/01/19) History of surgery on wrist Family History Family History Father Diabetes mellitus Myocardial infarction Hypertension CVD (cardiovascular disease) Mother Diabetes mellitus CVD (cardiovascular disease) Sister No problems noted. Son No problems noted. Son No problems noted. Son No problems noted. Daughter Thyroiditis Daughter No problems noted. Daughter No problems noted. Daughter No problems noted. Daughter No problems noted. Social History Social History Housing: Apartment Unable to assess alcohol history related to: Unknown Alcohol intake: unknown Patient Tobacco Use Status: Never used Tobacco e-Cigarette/Vaping Use: Never Used Second Hand Smoke Exposure: No Advance Directives: No Advance Directives Information Provided: Yes Do you have a plan to hurt others: No Plan service: No Current occupational status: disabled Sexual orientation: Straight/Heterosexual Gender identity: Female Cognitive needs: No Hearing needs: No Vision needs: No Physical Exam Vital Signs: Vital Signs: Last Vital Signs Temp 97.9 F 03/14/24 12:21 Pulse 66 03/14/24 12:21 Resp 16 03/14/24 12:21 BP 175/91 H 03/14/24 12:21 Pulse Ox 97 03/14/24 12:21 O2 Del Method Room Air 03/14/24 12:21 BMI result Body Mass Index 40.6 vss Appearance: Alert.? Oriented X3.? No acute distress.? Head: Normocephalic, atraumatic, no step-offs or deformities Eyes: Pupils equal, round and reactive to light.? Neck: Normal inspection.? Neck supple.? CVS: Normal heart rate and rhythm.? Pulses normal.? Respiratory: No respiratory distress.? Breath sounds normal.? Abdomen: Soft and nontender.? Skin: Skin warm and dry.? Normal skin color.? Normal skin turgor.? Extremities: No lower extremity edema.? No calf ttp. 5/5 strength to bilateral upper and lower extremities Neuro: Oriented X 3.? No motor deficit.? No sensory deficit. CN 2-12 intact Course Reevaluation(s) Reevaluation #1: Mild to moderate degenerative disc from L5-S1 according [facility] 12[facility]23. Time: 11:52 Reevaluation #2: Patient recieved toradol and is feeling better. Educated patient on diagnosis and treatment plan, answered all question, patient verbalizes understanding. At this time patient will be discharged home, advised to return with new or worsening symptoms. Educated on worrisome signs and symptoms and when to return. At this time I feel comfortable discharge home. Time: 12:37 Medications Administered Discontinued Medications Generic Name Dose Route Start Last Admin Trade Name Freq PRN Reason Stop Dose Admin Ketorolac Tromethamine 30 mg 03/14/24 11:59 03/14/24 12:12 Ketorolac Tromethamine 30 Mg/Ml Vial IM 03/14/24 12:00 30 mg ONCE ONE Administration Lidocaine 1 patch 03/14/24 12:00 03/14/24 12:12 Lidocaine 4 % Patch Adh..Patch TRANSDERMA 03/14/24 12:01 1 patch ONCE ONE Administration Protocol Medical Decision Making Medical Decision Making [facility] Narrative: 1150 64 year old female presents w/ acute on chronic back pain X months not improving PE - R sided soft tissue tenderness and spasm of the middle thoracic area. no midline tenderness of the spine, normal ROM' History and physical exam consistent with thoracic paraspinous muscle spasm versus strain versus thoracic radiculopathy. Unlikely cauda equina, cord compression, epidural abscess. Unlikely abdominal aortic aneurysm or dissection. Plan discharge with pain control. No indication for imaging at this time atraumatic pain. No red flag symptoms. Differential Diagnosis Differential Diagnoses: The differential diagnosis associated with the presentation includes History and physical exam consistent with thoracic paraspinous muscle spasm versus strain versus thoracic radiculopathy. Unlikely cauda equina, cord compression, epidural abscess. Unlikely abdominal aortic aneurysm or dissection. Admission/Observation Consideration of admission/observation: Escalation of care including admission/observation considered Unlikely Lab Data Labs: Lab Results 03/14/24 Range/Units 11:56 Urine Color Yellow Urine Appearance Clear Urine pH 7.0 (5.0-9.0) Ur Specific [place] [employer] 1.025 (1.005-1.025) Urine Protein Negative (Neg-Trace) mg/dL Urine Glucose (UA) >=1000 H (Negative) mg/dL Urine Ketones Negative (Negative) mg/dL Urine Blood Negative (Negative) Urine Nitrite Negative (Negative) Ur Leukocyte Esterase Negative (Negative) Urine RBC 0-2 (0-2) /HPF Urine WBC 0-5 (0-5) /HPF Ur Squamous Epith Cells 0-2 (0-2) /HPF Urine Bacteria None Seen (None Seen) Hyaline Casts 0-2 (0-2) /LPF External Record Review External record reviewed: Inpatient record, Office record, Outpatient record, Prior outpatient labs, Prior outpatient radiology and Primary care record Tests considered The following testing was considered but not selected: No indication for imaging at this time atraumatic pain. No red flag symptoms. Prescription Management I considered prescription management with: Pain Medication Chronic Conditions Patient?s care impacted by: Diabetes and Hypertension Discharge Plan Discharge Clinical Impression: Chronic back pain Patient Disposition: Home, Self-Care Instructions: Chronic Pain (ED), Chronic Back Pain (DC), Back Pain (ED) Additional Instructions: Take your medications as prescribed. If you were prescribed antibiotics today, it is important that you take your medication to their entirety, do not skip any doses, do not finish them early. Follow-up with your primary care provider this week. Return to the emergency department with new or worsening symptoms. Such as fevers, chills, chest pain, shortness of breath, nausea, vomiting, dizziness, headache, vision changes, lethargy In case of emergency call 911 Prescriptions: New prednisone 20 mg tablet 20 mg PO DAILY 5 Days Qty: 5 0RF lidocaine 5 % adhesive patch,medicated 1 patch topical DAILY PRN (Reason: pain) Qty: 15 0RF Rx Instructions: leave on most painful area for up to 12 hrs No Action albuterol sulfate 90 mcg/actuation HFA aerosol inhaler 2 inh PO Q4H PRN (Reason: shortness of breath or wheezing) Qty: 8.5 1RF (DME) FreeStyle Lite Strips Strip See Rx Instructions .ROUTE .MEDSUPPLY Qty: 50 11RF Rx Instructions: Use 1 test strip once a day (DME) blood-glucose meter [FreeStyle Lite Meter] Kit See Rx Instructions .ROUTE .MEDSUPPLY Qty: 1 0RF Rx Instructions: E11.9 ONCE A DAY (DME) lancets [FreeStyle Lancets] 28 gauge misc See Rx Instructions .ROUTE .MEDSUPPLY Qty: 100 11RF Rx Instructions: Use 1 lancet once a day as needed tizanidine 2 mg tablet 2 mg PO BID PRN (Reason: for muscle spasm) Qty: 60 3RF albuterol sulfate 2.5 mg /3 mL (0.083 %) solution for nebulization 2.5 mg inhalation Q4-6H PRN (Reason: shortness of breath or wheezing) 30 Days Qty: 90 2RF celecoxib 100 mg capsule 100 mg PO BID PRN (Reason: for pain) 30 Days Qty: 60 1RF Rx Instructions: Take it with food and full glass of water. Avoid other NSAIDs. Orencia ClickJect 125 mg/mL auto-injector 125 mg subcut QWEEK Qty: 4 2RF (DME) blood pressure monitor Kit See Rx Instructions .Route Qty: 1 0RF Rx Instructions: As directed docusate sodium [Col-Rite] 100 mg capsule 100 mg PO BID Qty: 30 0RF lisinopril 10 mg tablet 10 mg PO DAILY 90 Days Qty: 90 0RF Ozempic 0.25 mg or 0.5 mg (2 mg/3 mL) pen injector 0.25 mg subcut QWEEK 28 Days Qty: 1.472 0RF Rx Instructions: for 4 weeks rosuvastatin 10 mg tablet 10 mg PO DAILY 90 Days Qty: 90 1RF metformin 1,000 mg tablet 1,000 mg PO BID 90 Days Qty: 180 1RF Combivent Respimat 20-100 mcg/actuation mist 2 puff inhalation Q4H 30 Days Qty: 4 3RF fluticasone propionate 220 mcg/actuation HFA aerosol inhaler 2 puff inhalation BID 30 Days Qty: 12 5RF Rx Instructions: administer with spacer lidocaine 5 % adhesive patch,medicated See Rx Instructions topical .COMPLEX Qty: 30 3RF Rx Instructions: leave on most painful area for up to 12 hrs topical gabapentin 300 mg capsule 300 mg PO TID 30 Days Qty: 90 0RF (DME) cock up splint See Rx Instructions .Route .MEDSUPPLY Qty: 1 0RF Rx Instructions: wear on the right wrist at night Referrals: Aniyah Gonzalez MD [Primary Care Provider] - 3 days Interventions: ED Discharge Assessment Last Done: 03/14/24 12:21 Discharge Date/Time: 03/14/24 12:25 Print Language: Belarusian
[2024-03-14 12:05] LABS: Appearance Urine Clear; Color Urine Yellow; Glucose Urine UA >=1000 mg/dL (Negative); Leukocyte Esterase Urine Negative (Negative); Nitrite Urine Negative (Negative); Specific Gravity - Urine 1.025 (1.005-1.025); UMIC TRIGGER UACC YES; Urine Blood Negative (Negative); Urine Ketones Negative (Negative); Urine Protein Negative (Neg-Trace)
[2024-03-14 12:10] LABS: Bacteria Urine None Seen (None Seen); Hyaline Casts Urine 0-2 /LPF (0-2); RBC Urine 0-2 /HPF (0-2); Squamous Epithelial Cell Urine 0-2 /HPF (0-2); WBC Urine 0-5 /HPF (0-5)
[2024-03-14] MEDS: Ketorolac Tromethamine 30 MG/ML VIAL IM (12:12)
[2024-03-14] MEDS: Lidocaine 4 % Patch ADH..PATCH 1 PATCH TRANSDERMA (12:12)
[2024-03-14 12:21] VITALS: BP 175/91; PULSE 66; RESP 16; TEMP 36.6; O2SAT 97
== END 2024-03-14 12:25 | disposition home or self-care (01) ==
PROVIDERS: Emergency Provider Emergency Medicine; PCP Internal Medicine
DX: G89.29 Other chronic pain (principal); M54.6 Pain in thoracic spine; I10 Essential (primary) hypertension; E11.8 Type 2 diabetes mellitus with unspecified complications; E78.5 Hyperlipidemia, unspecified; K75.81 Nonalcoholic steatohepatitis (NASH); Z79.4 Long term (current) use of insulin; Z86.73 Personal history of transient ischemic attack (TIA), and cerebral infarction without residual deficits; Z79.84 Long term (current) use of oral hypoglycemic drugs; Z79.02 Long term (current) use of antithrombotics/antiplatelets; Z79.899 Other long term (current) drug therapy
CPT/HCPCS: 81001; 81003; 96372; 99283; 99284; J1885

== ENCOUNTER 2024-03-21 10:53 | Emergency (ER) | payer OTHER, SELFPAY ==
[2024-03-21 10:58] VITALS: BP 196/83; PULSE 72; RESP 18; TEMP 36.8; O2SAT 98; BMI 40.1
== END 2024-03-21 20:53 | disposition left against medical advice (07) ==
LOC: HO.ED 20:47
PROVIDERS: Emergency Provider Emergency Medicine; PCP Internal Medicine
DX: R07.81 Pleurodynia (principal)
CPT/HCPCS: 99281

== ENCOUNTER 2024-03-22 08:17 | Outpatient (AMB) | payer OTHER, SELFPAY ==
[2024-03-22 08:18] VITALS: BP 146/80; BMI 40.1
--- NOTE | 2024-03-22 08:18 | A.OFFPC_ITS ---
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 Required: No Accompanied by: Self / Same As Patient Allergies cyclobenzaprine [From Flexeril] Allergy (Intermediate, Verified 03/22/24 08:43) Dizziness orphenadrine [From Norflex] Allergy (Intermediate, Verified 03/22/24 08:43) Dizziness sarilumab [From Kevzara] Allergy (Intermediate, Verified 03/22/24 08:43) Rash Medication List - Last Reconciled 03/22/24 by Aniyah Friend MD albuterol sulfate 90 mcg/actuation 2 inhalations PO Q4H PRN albuterol sulfate 2.5 mg (3 mL) inhalation Q4-6H PRN 30 days blood pressure monitor As directed blood sugar diagnostic (FreeStyle Lite Strips) Use 1 test strip once a day blood-glucose meter (FreeStyle Lite Meter kit) E11.9 ONCE A DAY celecoxib 100 mg PO BID PRN 30 days [cock up splint wear on the right wrist at night ] docusate sodium (Col-Rite) 100 mg PO BID fluticasone propionate 220 mcg/actuation 2 puffs inhalation BID 30 days gabapentin 300 mg PO TID 30 days ipratropium-albuterol 20-100 mcg/actuation (Combivent Respimat) 2 puffs inhalation Q4H 30 days lancets (FreeStyle Lancets) Use 1 lancet once a day as needed lidocaine 5% 1 patch topical DAILY PRN lisinopril 10 mg PO DAILY 90 days metformin 1,000 mg PO BID 90 days Orencia ClickJect (abatacept) 125 mg subcut QWEEK NS rosuvastatin 10 mg PO DAILY 90 days tizanidine 2 mg PO BID PRN Tobacco use date assessed: 10/25/23 Fall risk assessment: No Falls in past year Last assessed Fall Risk: 03/22/24 Dental Screening Dental Screen Date: 03/22/24 Did you have a dental visit in the last 12 months?: No Did you have a dental problem in the last 6 months where you did not have access to dental care?: No Was dental information given to patient?: Patient has dentist HPI HPI Comments History of Present Illness Details This is a 64-year-old female with diabetes mellitus type 2, seropositive rheumatoid arthritis, hypertension and dyslipidemia that still complains of right thoracic radiculitis that has been present for over 6 months. It is worse with movement and relieved by resting. Tender to palpation. Multiple imaging surrounding it has been done and has been negative. She said that in physical therapy they put a large bandage that did relieved the pain. I will refer her to physical therapy again. A1c still elevated but has improved. Rheumatoid arthritis is follow by Rheumatology. Blood pressure borderline normal to elevated. On statins for her dyslipidemia and her LDL goal should be less than 70. She is morbidly obese with a BMI of 40.1 and was advised to do diet and exercise to reach BMI goal less than 30. Declines weight loss surgery. [facility] Medical History (Updated 03/22/24 @ 10:55 by Aniyah Friend MD) Sacroiliitis Rheumatic fever TIA (transient ischemic attack) Right-sided back pain History of COVID-19 Asthma exacerbation Hospital discharge follow-up Sacroiliitis Renal calculi Costovertebral angle tenderness Burning with urination Disc degeneration, lumbar Spondylosis of cervical spine Spondylosis of lumbar spine Pleuritic pain Restrictive lung disease Morbid obesity Asthma Dyslipidemia Essential hypertension Vaginal modesta Seropositive rheumatoid arthritis Rheumatoid arthritis Diabetes Surgical History History of cholecystectomy Hx of colonoscopy (09/01/19) History of surgery on wrist Family History Father Diabetes mellitus Myocardial infarction Hypertension CVD (cardiovascular disease) Mother Diabetes mellitus CVD (cardiovascular disease) Sister No problems noted. Son No problems noted. Son No problems noted. Son No problems noted. Daughter Thyroiditis Daughter No problems noted. Daughter No problems noted. Daughter No problems noted. Daughter No problems noted. Social History Housing: Apartment Unable to assess alcohol history related to: Unknown Alcohol intake: unknown Patient Tobacco Use Status: Never used Tobacco e-Cigarette/Vaping Use: Never Used Second Hand Smoke Exposure: No service: No Current occupational status: disabled Sexual orientation: Straight/Heterosexual Gender identity: Female Cognitive needs: No Hearing needs: No Vision needs: No Female Reproductive History Menstrual Age of Menarche: 11 Date of menopause: 01/22/10 Questionnaire Thrive Questionnaire Date Thrive assessed: 10/25/23 SONA-7 AMB Questionnaire SONA-7 Date SONA - 7 assessed: 10/25/23 Source: Developed by Drs. Spencer Gonzalez, Anamaria Bartlett, Clayton Azar and colleagues, with an educational anna from [facility]. Review of Systems Const All systems reviewed & are unremarkable except as noted in HPI and below Card Denies chest pain at rest, Denies chest pain with activity, Denies edema, Denies irregular heart rhythm, Denies claudication, Denies dyspnea, Denies dyspnea on exertion, Denies orthopnea, Denies paroxysmal nocturnal dyspnea and Denies slow heart rate Resp Denies cough, Denies dyspnea and Denies dyspnea on exertion Physical exam (Primary Care) Vital Signs: Last Vital Signs BP 146/80 H 03/22/24 08:18 BMI result Body Mass Index 40.1 BMI Assessment/Plan discussion: High BMI High, discussed plan: lifestyle, weight reduction, dietary and physical activity Tobacco/Smoking Status: Tobacco use Status Tobacco use date assessed 10/25/23 03/22/24 08:24 Patient Tobacco Use Status Never used Tobacco 03/22/24 08:24 e-Cigarette/Vaping Use Never Used 03/22/24 08:24 Thrive Assessment: Date of Thrive Assessment Date Thrive assessed 10/25/23 03/22/24 08:24 Resp Effort & Inspection: normal respiratory effort Auscultation: clear to auscultation bilaterally Cardio Jugular venous distension: no JVD Rate: regular rate Rhythm: regular rhythm Heart sounds: S1 normal heart sound present and S2 normal heart sound present Extrem General: Yes full ROM Assessment and Plan Assessment & Plan (1) Thoracic radiculitis: Code(s): M54.14 - Radiculopathy, thoracic region Plan: Referred to physical therapy. Start diclofenac gel. (2) Diabetes: Code(s): E11.9 - Type 2 diabetes mellitus without complications Qualifiers: Diabetes mellitus type: type 2 Diabetes mellitus terminal supervisor insulin use: without terminal supervisor use Diabetes mellitus complication status: with hyperglycemia Qualified Code(s): E11.65 - Type 2 diabetes mellitus with hyperglycemia Plan: Continue metformin. A1c goal is equal or less than 7%. (3) Seropositive rheumatoid arthritis: Comment: ++RF+++CCP dx in her 40s Humira:08/29 - 03/30 -active disease on exam Enryderl:04/29-08/30 - active disease on exam Nj:08/30-12/29- active disease on exam Kevzara: 01/2021- stopped due to rash Orencia: 01/2021 - present effective MTX in the past - transaminitis Code(s): M05.9 - Rheumatoid arthritis with rheumatoid factor, unspecified Plan: Continue Orencia. Follow-up with rheumatology. (4) Essential hypertension: Code(s): I10 - Essential (primary) hypertension Plan: Continue lisinopril. Blood pressure goal is equal or less than 130/80. (5) Dyslipidemia: Code(s): E78.5 - Hyperlipidemia, unspecified Plan: Continue statins. LDL goal is less than 70. (6) Morbid obesity with BMI of 40.0-44.9, adult: Code(s): E66.01 - Morbid (severe) obesity due to excess calories; Z68.41 - Body mass index [BMI] 40.0-44.9, adult Plan: Start diet and exercise. BMI goal is less than 30. Orders: Orders PT Evaluation and Treatment Today M54.14 - Radiculopathy, thoracic region Referrals Gastroenterology Referral K75.81 - Nonalcoholic steatohepatitis (GONGORA) Medications: New diclofenac sodium 1% (Aleve (diclofenac)) apply to single elbow, wrist or hand; for hand includes palm/fingers/back of hand 2 grams topical QID 100 grams 0RF 30 days Discontinued lidocaine 5% leave on most painful area for up to 12 hrs Discontinued Reason: Patient Completed Course 1 patch topical DAILY PRN 15 ea 0RF pain tizanidine Discontinued Reason: Patient Refused 2 mg PO BID PRN 60 tabs 3RF for muscle spasm M62.830 - Muscle spasm of back celecoxib Take it with food and full glass of water. Avoid other NSAIDs. Discontinued Reason: Patient Refused 100 mg PO BID 30 days PRN 60 caps 1RF for pain M51.36 - Other intervertebral disc degeneration, lumbar region, M54.16 - Radiculopathy, lumbar region, M54.51 - Vertebrogenic low back pain, M54.9 - Dorsalgia, unspecified Coding Level of Care Code Est Pt Level 4 (92838) Complex EM visit Add On G2211 Diagnoses Thoracic radiculitis M54.14 Type 2 diabetes mellitus with hyperglycemia, without long-term current use of insulin E11.65 Diabetes mellitus type: type 2 Diabetes mellitus terminal supervisor insulin use: without terminal supervisor use Diabetes mellitus complication status: with hyperglycemia Seropositive rheumatoid arthritis M05.9 Essential hypertension I10 Dyslipidemia E78.5 Morbid obesity with BMI of 40.0-44.9, adult E66.01; Z68.41 Time Spent (min) 23
[2024-03-22 10:54] VITALS: BP 140/80
== END 2024-03-22 08:53 | disposition home or self-care (01) ==
PROVIDERS: PCP Internal Medicine; Visit Provider Internal Medicine
DX: E11.65 Type 2 diabetes mellitus with hyperglycemia (principal); M05.9 Rheumatoid arthritis with rheumatoid factor, unspecified; E66.01 Morbid (severe) obesity due to excess calories; Z68.41 Body mass index [BMI] 40.0-44.9, adult; M54.14 Radiculopathy, thoracic region; I10 Essential (primary) hypertension; E78.5 Hyperlipidemia, unspecified
CPT/HCPCS: 99214; G2211

== ENCOUNTER 2024-03-28 13:34 | Outpatient (AMB) | payer OTHER, SELFPAY ==
--- NOTE | 2024-03-28 13:42 | A.OFFVIS_ITS ---
Vital Signs 03/28/24 13:58 03/28/24 13:59 03/28/24 13:59 Height 5 ft 1 in Weight 250 lb BMI 47.2 BP 216/94 H 211/99 H 224/102 H Blood Pressure Location Rt brachial Lt brachial Rt brachial Position Sitting Sitting Sitting Pulse 101 H Pulse Source Pulse Oximeter Pulse Oximetry (%) 97 Oxygen Delivery Method Room Air Intake Visit Reasons: Rt Sided Back Pain Intake Note: Sydnee bp was grossly elevated today was taken twice with dinamap machine and once manually. Patient states she does have a headache today, but states she t ook her blood pressure mesication this morning and has been drinking water today. Pain today 06/20 Customer Support Advisor Required: Yes Customer Support Advisor Language: Club Manager Name: keyla Accompanied by: Self / Same As Patient Allergies cyclobenzaprine [From Flexeril] Allergy (Intermediate, Verified 03/28/24 14:33) Dizziness orphenadrine [From Norflex] Allergy (Intermediate, Verified 03/28/24 14:33) Dizziness sarilumab [From Kevzara] Allergy (Intermediate, Verified 03/28/24 14:39) Rash HPI Comments Details: Patient presents today for follow up for ongoing right sided back pain with radiation into her right buttock and right lateral hip and lower extremity with numbness and tingling. She presents today with elevated BP and headache. Reports taking lisinopril 10 mg which patient states was recently increased up from 5 mg. Denies chest pain, tightness or pressure, or shortness breaths. Patient denies seeking medical evaluation at ER and states she will follow up with her PCP regarding elevated BP. Patient reports she was not able to start physical therapy due to significant pain. She is interested to undergo repeat lumbar medial branch blocks for potential RFA procedure. In October 2022, patient had unilateral right diagnostic L2-L3 L4 does ramus L5 medial branch block with 100% pain relief in the area of the injections. She also has right sacroiliac joint pain and radicular right leg pain. Pain affects her daily functioning, mobility and sleep. She continues to take Tylenol, Motrin, and lidocaine patches with continued symptoms. Denies any fever, abdominal or groin pain, bladder or bowel dysfunction or saddle anesthesia. PRIOR: Patient presents today for follow up for right sided thoracic back pain. She had follow up with Neurosurgery and was deemed non-surgical. Patient reports diffuse body pain, mostly throughout her whole back including her upper, middle and lower back. The middle of her back on the right side affect her the most. Pain increases with movements, ADLs, coughing or sleeping on her right side. She has a mild to moderate degenerative disc at L5-S1 per most recent lumbar spine MRI and stable 6 mm right pulmonary nodule per CT scan in 2022 for which she follows with Pulmonology. Patient was sent for thoracic spine xray by her PCP last year, this has not been completed yet. Patient also sees Rheumatology and takes Orencia. Reports recent home fasting blood sugar of 133 yesterday morning. Most recent A1C=9.0 per 09/23/23. Denies any fever, dizziness, dyspnea, shortness of breaths, chest pain, hemoptysis, weakness, bladder or bowel dysfunction or saddle anesthesia. PRIOR: Patient present today for follow up for worsening of low back pain with right sided radiculopathy symptoms. She reports mild to moderate pain relief in March and April since previous injection in February, B/L L5-S1 TFESI. Denies any recent trauma, injury or falls. She ambulates with slow antalgic gait with mild limping to shift her weight to the left side. Patient reports neck through lower back pain that travels into her right buttock, thigh and into right calf and left heel and foot with numbness, tingling and occasional weakness with prolonged walking. She also reports severe back pain with bending forward or lifting and avoids bending down as she is not able to get up from bending due to severe radiculopathy. Patient reports she is able to tolerate 20 minutes of walking or less before she needs to rest due to pain increase. Patient also has seropositive rheumatoid arthritis and states widespread joint pain as well. She is no longer interested with injections, especially cortisone injections due to diabetes and as well as low efficacy of injections in the past. Most recent A1C was 7.0. Patient rates her pain 9/10. Denies any fever, dizziness, chest pain, shortness of breath, foot drop, bladder or bowel incontinence, or saddle anesthesia. PRIOR: Patient presents today to assess response to B/L L5-S1 TFESI on 02/19/[address] Richardson. Patient reports 50% pain relief in her lower back and 90% pain relief for her radicular pain. She denies any numbness, tingling, weakness or bilateral leg pain today and reports these symptoms have resolved since injection. Unfortunately for her axial low back pain, she has tried Sprint PNS trial with minimal pain relief and therefore requested us to removed it earlier in the PNS therapy. Patient rates her axial low back pain at 9/10 worse with movements, extension or her daily activities. She does have significant lumbar degenerative disc disease with S-shaped thoracolumbar scoliotic curvature, multilevel ligamentum flavum thickening, grade 1 degenerative spondylolisthesis at L5-S1, multilevel discogenic and facetogenic degenerative changes, as well as neuroforaminal and central canal stenosis. She denies any fever, bladder or bowel incontinence or saddle anesthesia. Patient also reports history of kidney stones and significant right sided flank pain with CVA tenderness on the right. She denies any fever, hematuria but reports significant pain with urination. She requests referral to Urology services. PRIOR: Patient is a pleasant 62 years old female status post Unilateral Right L1 and L4 Sprint PNS on 11/19/[address] Richardson. Patient reports less than 20% pain relief and requests me to take Sprint leads out. She reports minimal to no improvement with her daily activities, social interactions, mobility or sleep. Patient was seen in our dressing change and wound check on 11/23/21 and 12/02/22 and has reported similar complaints. Minimal paresthesia at the back at 75 and 78 stimulation. Patient reports uncomfortable sensations with higher stimulation and no pain relief. The dressing was removed today. Leads insertion sites look clean, dry, intact, no redness, no swelling, no pathological discharge. Area was cleansed with Chloraprep. Leads pulled with tips intact and the area was cleansed again with Chloraprep, applied Bacitracin and covered it with gauze and Tegaderm film dressing. Patient is also suffers facetogenic, discogenic and SIJ pain generators. She requests a therapeutic injection for her radicular pain. She reports an increase in lower back pain that radiates to both of her lower extremities posteriorly with numbness and tingling in her feet and shins bilaterally. Reports right lower extremity weakness with ambulation. Patient reports she received KISHAN injections in [place] and these provided her significant pain relief. Her most recent A1C was 7.1 on 10/16/22. We reviewed lumbar spine MRI in greater detail with the patient and her son. I have explained to patient that due to significant multilevel ligamentum flavum thickening, therapeutic injections may be less effective. Given BMI >41, she is not a good candidate for MILD procedure. Patient reports she is trying to lose weight with diet and diabetic medications but has been having difficulty walking due to axial lower back pain with radiculopathy. She denies any fever, abdominal or groin pain, bladder or bowel incontinence or saddle anesthesia. She was seen in our ER department on 12/07/22 for right sided abdominal pain with a benign examination. CT scan of abdomen and pelvis showed hepatomegaly and hepatic steatosis. Questionable mild nodularity of the liver contour which could be seen with cirrhosis. Moderate degree of colonic and rectal stool burden. No evidence of bowel obstruction. Normal appendix. No acute or aggressive appearing osseous abnormalities. Degenerative changes of the spine. Again noted increased sclerosis with subchondral cystic changes in the pubic symphysis, suggesting osteitis pubis or degenerative changes, slightly increased since 2019. Patient reports she takes Milk of Magnesia for constipation with good results. PRIOR Dr. Richardson 10/28/22: Ms. Matias is on the phone today to discuss the results unilateral right diagnostic L2-L3 L4 does ramus L5 medial branch block. She reports 100% pain relief in the area of the injections. She reports better mobility better social interactions better activities of daily living. She reports that upper portion of her pain in the upper lumbar lower thoracic spine remains with pain. I offered her sprint PNS to treat her condition. I am planning to insert L2 and L5 possibly L1 and L4 right stimulation I warned her that this procedure she needs to go to will be under minimal sedation. I also offered her radiofrequency ablation but in her case of widespread pain I believe that sprint is much better procedure to alleviate her pain. Prior:. She has multiple changes on the MRI is dictated as below. Again she was interrogated about her pain. She insists that her pain is on the right side of the lumbar spine and radiates to the right thigh to the level of the knee but not below that level. She reports that flexing backwards aggravates her pain.. She reports that this pain started over 3 years ago. I was under impression that her pain is coming from sacroiliac joints . she reports that the her pain is getting worse when she is trying to stretch her leg on the right. I discussed the situation with her. She is convinced that there is some changes in her lumbar spine which are the cause of the pain. I canceled the trial of peripheral nerve stimulation of sacroiliac joint innervation she was scheduled previously. The trial was based on the injections which were performed before into her sacroiliac joints and gave her significant pain relief. However she received steroid with this injection and she had her blood sugar elevated. I offered her today to perform diagnostic sacroiliac joint injection however patient adamantly refused and insisted on going for the MRI. We received information from [place] about injection she received there. It was unknown level epidural steroid injection during which she received 80 mg of Kenalog. Given 80 mg of Kenalog alone anywhere can relieve any kind of pain. We performed therapeutic bilateral sacroiliac joint injection she reports 45 days of excellent pain relief she reports better mobility better social interactions better activities of daily living. Her past medical history significant for rheumatoid arthritis she is on Orencia, she also suffers from diabetes and hypertension, she has severe arthralgia. She also reports that she has some kidney damage from the medication she receives for rheumatoid arthritis. She is also suffering from truncal obesity. She is morbidly obese. She is also diabetic and takes diabetic medication [facility] Medical History Sacroiliitis Rheumatic fever TIA (transient ischemic attack) Right-sided back pain History of COVID-19 Asthma exacerbation Hospital discharge follow-up Sacroiliitis Renal calculi Costovertebral angle tenderness Burning with urination Disc degeneration, lumbar Spondylosis of cervical spine Spondylosis of lumbar spine Pleuritic pain Restrictive lung disease Morbid obesity Asthma Dyslipidemia Essential hypertension Vaginal modesta Seropositive rheumatoid arthritis Rheumatoid arthritis Diabetes Surgical History History of cholecystectomy Hx of colonoscopy (09/01/19) History of surgery on wrist Family History Father Diabetes mellitus Myocardial infarction Hypertension CVD (cardiovascular disease) Mother Diabetes mellitus CVD (cardiovascular disease) Sister No problems noted. Son No problems noted. Son No problems noted. Son No problems noted. Daughter Thyroiditis Daughter No problems noted. Daughter No problems noted. Daughter No problems noted. Daughter No problems noted. Social History Housing: Apartment Unable to assess alcohol history related to: Unknown Alcohol intake: unknown Patient Tobacco Use Status: Never used Tobacco e-Cigarette/Vaping Use: Never Used Second Hand Smoke Exposure: No Advance Directives: No Advance Directives Information Provided: No Do you have a plan to hurt others: No Plan service: No Current occupational status: disabled Sexual orientation: Straight/Heterosexual Gender identity: Female Cognitive needs: No Hearing needs: No Vision needs: No Female Reproductive History Menstrual Age of Menarche: 11 Date of menopause: 01/22/10 Review of Systems Const All systems reviewed & are unremarkable except as noted in HPI and below Physical Exam Vital Signs: Last Vital Signs Pulse 101 H 03/28/24 13:58 BP 224/102 H 03/28/24 13:59 Pulse Ox 97 03/28/24 13:58 Oxygen Delivery Method Room Air 03/28/24 13:58 BMI result Body Mass Index 47.2 Results Reviewed Results Reviewed: CT ABDOMEN AND PELVIS WITH CONTRAST 03/06/24 OSSEOUS STRUCTURES: Multilevel degenerative changes of the thoracolumbar and lumbosacral spine XR THORACIC SPINE 02/04/24 CLINICAL INFORMATION: Radiculopathy, thoracic region FINDINGS: There are small riblets extending off the T12 vertebral body. There is no fracture or bone destruction there is mild kyphosis There is multilevel disc space narrowing. There is no abnormality of the paraspinal soft tissues. Incidental note is made of degenerative disc disease in the lower cervical spine. IMPRESSION: 1. Mild kyphosis. 2. Multilevel degenerative disc disease. 3. Degenerative disc disease in the lower cervical spine. MR LUMBAR SPINE WITHOUT CONTRAST 08/23/23 CLINICAL INFORMATION: Vertebrogenic back pain. COMPARISON: Lumbar spine MRI 08/11/2022. TECHNIQUE: MRI of the lumbar spine was obtained using routine sequences without contrast. FINDINGS: There is transitional spinal anatomy at the lumbosacral junction with a subdural sacralization of the L5 vertebral segment. The lowest rib-bearing vertebral segment will be designated T12. There is grade 1 anterolisthesis of L4 on L5. Alignment is otherwise normal. Vertebral heights are preserved. No acute bone marrow signal changes. There are mixed degenerative endplate changes at multiple levels. There is loss of intervertebral disc height and T2 signal intensity at L3-L4 and L4-L5. There is disc desiccation at multiple additional levels without substantial loss of intervertebral disc height. The tip of the conus medullaris is located at L1. No mass effect on the conus. Visualized distal cord signal intensity is normal. At T12-L1 the annular contour is normal. No canal or neuroforaminal compromise. At L1-L2 there is a slightly bulging disc. Bilateral facet degenerative change. No canal stenosis. No mass effect on the traversing or foraminal nerve roots. At L2-L3 there is a bulging disc. Bilateral facet degenerative change. Moderate canal stenosis. No mass effect on the traversing or foraminal nerve roots. At L3-L4 there is a diffusely bulging disc. Bilateral facet degenerative change. Moderate canal stenosis. Mild mass effect on the right L3 foraminal nerve root. At L4-L5 there is a bulging disc. Bilateral facet degenerative change. Moderate canal stenosis. Subarticular zone narrowing causes abutment of both traversing L5 nerve roots. No foraminal nerve root compression. At L5-S1 there is no canal or neuroforaminal compromise. Limited visualization the retroperitoneal anatomy reveals no abnormal finding. Psoas and paraspinal muscle groups are symmetric. IMPRESSION: There is transitional spinal anatomy at the lumbosacral junction with partial sacralization of the L5 vertebral segment. The lowest rib-bearing vertebral segment will be designated T12. There is multilevel degenerative spondylosis of the lumbar spine with grade 1 anterolisthesis of L4 on L5 related to facet degenerative changes at this level. Moderate canal stenosis at L2-L3, L3-L4, and L4-L5. A bulging disc in conjunction with facet degenerative change at L3-L4 causes mild mass effect on the right L3 foraminal nerve root. There is also abutment of both traversing L5 nerve roots related to degenerative changes at L4-L5. CT/CT chest w IV con 02/17/23 OSSEOUS STRUCTURES: Degenerative changes of the spine. IMPRESSION: Stable 6 mm right pulmonary nodule adjacent to the minor fissure probably representing a subpleural lymph node. Question mild interstitial lung disease. Assessment & Plan Assessment & Plan (1) Muscle spasm of back: Code(s): M62.830 - Muscle spasm of back Category: Medical (2) Lumbar spondylosis: Code(s): M47.816 - Spondylosis without myelopathy or radiculopathy, lumbar region Category: Medical (3) Right-sided back pain: Code(s): M54.9 - Dorsalgia, unspecified Category: Medical (4) Sacroiliitis: Code(s): M46.1 - Sacroiliitis, not elsewhere classified Category: Medical (5) Disc degeneration, lumbar: Code(s): M51.36 - Other intervertebral disc degeneration, lumbar region Category: Medical (6) Essential hypertension: Code(s): I10 - Essential (primary) hypertension Category: Medical (7) Morbid obesity with BMI of 45.0-49.9, adult: Code(s): E66.01 - Morbid (severe) obesity due to excess calories; Z68.42 - Body mass index [BMI] 45.0-49.9, adult Category: Medical Plan Patient was recommended to seek medical evaluation at ER for significantly elevated BP with associated CHRISTINE and follow up with her PCP. For ongoing axial low back pain, will schedule Right Diagnostic L3-L4 DR L5 MBB with local and fluoroscopy for potential RFA procedures. She underwent Sprint PNS trial last year with partial pain improvement. Expectations, risks and benefits were reviewed. Patient is awares he will be contacted to schedule this procedure. All questions and concerns have been answered and patient agreed with the plan. Follow up after injections and sooner as needed. Coding Level of Care Code Est Pt Level 4 (06912) Diagnoses Muscle spasm of back M62.830 Lumbar spondylosis M47.816 Right-sided back pain M54.9 Sacroiliitis M46.1 Disc degeneration, lumbar M51.36 Essential hypertension I10 Morbid obesity with BMI of 45.0-49.9, adult E66.01; Z68.42
[2024-03-28 13:58] VITALS: BP 216/94; PULSE 101; O2SAT 97; BMI 47.2
[2024-03-28 13:59] VITALS: BP 211/99; BP 224/102
== END 2024-03-28 14:09 | disposition home or self-care (01) ==
PROVIDERS: PCP Internal Medicine; Visit Provider Nurse Practitioner Family
DX: M62.830 Muscle spasm of back (principal); M47.816 Spondylosis without myelopathy or radiculopathy, lumbar region; M54.9 Dorsalgia, unspecified; M46.1 Sacroiliitis, not elsewhere classified; M51.36 Other intervertebral disc degeneration, lumbar region; I10 Essential (primary) hypertension; E66.01 Morbid (severe) obesity due to excess calories; Z68.42 Body mass index [BMI] 45.0-49.9, adult
CPT/HCPCS: 99214

== ENCOUNTER → 2024-03-28 13:34 | Outpatient (BNVA) | payer OTHER, SELFPAY | PROVIDERS: PCP Internal Medicine; Visit Provider Nurse Practitioner Family | DX: M62.830 Muscle spasm of back (principal); M47.816 Spondylosis without myelopathy or radiculopathy, lumbar region; M54.9 Dorsalgia, unspecified; M46.1 Sacroiliitis, not elsewhere classified; M51.36 Other intervertebral disc degeneration, lumbar region; I10 Essential (primary) hypertension; E66.01 Morbid (severe) obesity due to excess calories; Z68.42 Body mass index [BMI] 45.0-49.9, adult | CPT/HCPCS: 99212 ==

== ENCOUNTER 2024-03-28 14:18 | Emergency (ER) | payer OTHER, SELFPAY ==
--- NOTE | ~2024-03-28 | US_ITS ---
EXAMINATION: US ABDOMEN LIMITED CLINICAL INFORMATION: RUQ. cholecystectomy. Retained stoned bile duct. COMPARISON: CT scan abdomen pelvis March 06, 2024. Right upper quadrant ultrasound exam December 04, 2023. TECHNIQUE: Real-time imaging of the right upper quadrant abdominal viscera.: Color Doppler exam used. FINDINGS: PANCREAS: Obscured by bowel gas LIVER: Diffuse increased echogenicity of liver parenchyma consistent with fatty change. No focal hepatic lesion. There is no intrahepatic biliary duct dilatation seen. GALLBLADDER: Status post cholecystectomy. Negative ultrasound Dhillon's sign COMMON BILE DUCT: Normal in caliber measuring 0.5 cm in diameter. RIGHT KIDNEY: Normal. No hydronephrosis. No renal calculi or focal parenchymal lesions. The kidney measures 10.7 cm in maximum dimension. FREE FLUID: None. US/US abdomen limited IMPRESSION: 1. Status post cholecystectomy. No bile duct dilatation. 2. Diffuse fatty change of liver.
--- NOTE | ~2024-03-28 | CT_ITS ---
EXAMINATION: CT abdomen pelvis wo IV con CLINICAL INFORMATION: Reason for Exam Right glank pain/back pain COMPARISON: Prior CT 03/06/2024 TECHNIQUE: Multidetector volumetric imaging was performed from the superior aspect of the liver through the pubic symphysis , noncontrast CT. Sagittal and coronal reformatted images were obtained on the technologist's workstation. This CT examination was performed using dose optimization techniques as appropriate, variously including the following: *Automated exposure control *Adjustment of mA and/or kV according to patient size (this includes techniques or standardized protocols for targeted exams where dose is matched to indication/reason for exam; i.e. extremities or head) *Use of iterative reconstruction technique DLP: 1455 mGy-cm FINDINGS: LOWER THORAX: Included lung bases are clear. HEPATOBILIARY: Heterogeneous liver texture, diffusely hypodense suggesting hepatic steatosis and/or liver cirrhosis. Hypodense area in the liver left lobe adjacent to the gallbladder fossa, the location is common for focal fat sparing. Evaluation of the liver is limited on noncontrast CT scan. GALLBLADDER: Gallbladder not visualized might have been removed and/or contracted. SPLEEN: Spleen is normal in size. PANCREAS: No focal mass or ductal dilatation. STOMACH AND GASTROINTESTINAL TRACT: Stomach is grossly unremarkable. There is no bowel distention or thickening. No CT evidence of appendicitis. ADRENALS: No adrenal nodules. KIDNEYS/URETERS: No hydronephrosis, stones or solid mass lesions. URINARY BLADDER: Partially decompressed. PELVIC VISCERA: Unremarkable PERITONEUM: No free air or fluid. LYMPH NODES: No lymphadenopathy. VASCULAR:No significant vascular calcifications. No aneurysm. BONES, ABDOMINAL WALL AND SOFT TISSUES: Redemonstration of a small periumbilical hernia containing fat only, no bowels. Degenerative disc disease lower lumbar spine especially L5-S1. CT/CT abdomen pelvis wo IV con IMPRESSION: 1. No CT evidence of acute intra-abdominal process to explain patient's pain symptoms. 2. Redemonstration of small periumbilical hernia containing fat only, no bowels. 3. Heterogeneous liver texture, diffusely hypodense suggesting hepatic steatosis and/or liver cirrhosis. Hypodense area in the liver left lobe adjacent to the gallbladder fossa, the location is common for focal fat sparing. Evaluation of the liver is limited on noncontrast CT scan. 4. Gallbladder not visualized might have been removed and/or contracted. 5. Degenerative disc disease lumbar spine especially L5-S1.
--- NOTE | ~2024-03-28 | CT_ITS ---
CT head/brain wo IV con CLINICAL INFORMATION: Reason for Exam headache. alexandro blood pressure COMPARISON: No prior CT scan available for comparison. TECHNIQUE: Department standard protocol. This CT examination was performed using dose optimization techniques as appropriate, variously including the following: *Automated exposure control *Adjustment of mA and/or kV according to patient size (this includes techniques or standardized protocols for targeted exams where dose is matched to indication/reason for exam; i.e. extremities or head) *Use of iterative reconstruction technique DLP: 1455 mGy-cm FINDINGS: CEREBRAL HEMISPHERES: Small hypodense area in the deep white matter left parietal lobe image 30 series of 3 concerning for possible lacunar infarct indeterminant age. BRAIN PARENCHYMA: Normal cummings-white matter differentiation. SUBDURAL SPACE: No bleed. BASAL GANGLIA AND PINEAL GLAND: Unremarkable VENTRICLES: Symmetric and normal in size. CEREBELLUM AND BRAINSTEM: No space-occupying mass, hemorrhage or acute infarct. CEREBELLOPONTINE ANGLES: No lesion found. ORBITS: No intraorbital mass. VESSELS: Unremarkable SKULL BASE: Unremarkable INCLUDED SINUSES AT SKULL BASE: Clear SKULL AND SKIN: No fracture or bone lesion found. CT/CT head/brain wo IV con IMPRESSION: Lacunar infarcts and deep left parietal lobe indeterminant age, versus a prominent perivascular space. MRI could be utilized for further characterization if clinically indicated. No intracranial bleed.
[2024-03-28 14:33] VITALS: BP 197/87; PULSE 80; RESP 18; TEMP 36.4; O2SAT 99; BMI 40.5
--- NOTE | 2024-03-28 14:40 | ED_ITS ---
HPI - General Adult General Chief complaint: General Medical Stated complaint: high blood levels sent by pcp Time Seen by Provider: 03/28/24 19:42 Source: patient and other (Son-in-law) Limitations: language barrier History of Present Illness ED Provider: Dr. Yobani Ledezma HPI narrative: 64-year-old female history of TIA, kidney stones, asthma, hypertension, diabetes, RA, chronic back pain presenting to the emergency department for evaluation of elevated blood pressure. The patient was seeing a pain specialist for right upper abdominal and flank pain. The patient was found to have an elevated blood pressure at time of evaluation was referred to the emergency department for further workup. Patient's abdominal pain in his been present for months and she has had multiple ER visits with negative workups. She states the pain has not improved with any medications that she is received. She was taking Tylenol and ibuprofen with only some relief for pain. She states she is used lidocaine patches with no improvement. The patient denied fever, chills, shortness of breath, nausea, vomiting, diarrhea. She denied numbness or weakness of her extremities. She states she is having headache NG gets headaches frequently. Related Data Previous Rx's ?Medication ?Instructions ?Recorded albuterol sulfate 90 mcg/actuation 2 inh PO Q4H PRN shortness of 08/13/20 aerosol inhaler breath or wheezing #8.5 grams docusate sodium 100 mg capsule 100 mg PO BID #30 caps 12/07/22 (Col-Rite) blood sugar diagnostic (FreeStyle #50 ea 02/10/23 Lite Strips) blood-glucose meter (FreeStyle #1 ea 02/10/23 Lite Meter kit) lancets 28 gauge (FreeStyle #100 ea 02/10/23 Lancets) cock up splint #1 ea 03/03/23 albuterol sulfate 2.5 mg/3 mL 2.5 mg (3 mL) inhalation Q4-6H PRN 06/29/23 (0.083 %) solution for nebulization shortness of breath or wheezing 30 days #90 mL metformin 1,000 mg tablet 1,000 mg PO BID 90 days #180 tabs 06/29/23 rosuvastatin 10 mg tablet 10 mg PO DAILY 90 days #90 tabs 10/25/23 Orencia ClickJect 125 mg/mL 125 mg subcut QWEEK #4 mL 02/07/24 subcutaneous auto-injector (abatacept) blood pressure monitor #1 ea 02/07/24 fluticasone propionate 220 2 puff inhalation BID asthma 30 02/23/24 mcg/actuation HFA aerosol inhaler days #12 grams ipratropium 20 mcg-albuterol 100 2 puff inhalation Q4H ASTHMA/COUGH 02/23/24 mcg/actuation mist for inhalation 30 days #4 grams (Combivent Respimat) lisinopril 10 mg tablet 10 mg PO DAILY 90 days #90 tabs 02/24/24 gabapentin 300 mg capsule 300 mg PO TID pain 30 days #90 caps 03/07/24 diclofenac sodium 1 % topical gel 2 g topical QID 30 days #100 grams 03/22/24 (Aleve (diclofenac)) Allergies Allergy/AdvReac Type Severity Reaction Status Date / Time cyclobenzaprine Allergy Intermediate Dizziness Verified 03/28/24 14:33 [From Flexeril] orphenadrine [From Norflex] Allergy Intermediate Dizziness Verified 03/28/24 14:33 sarilumab [From Kevzara] Allergy Intermediate Rash Verified 03/28/24 14:39 Review of Systems 2 Review of Systems: Yes all other systems are reviewed and are negative [facility] Past Medical History [facility] Narrative: Social history: She denies tobacco, alcohol and drug use. She has here in the emergency department with her son-in-law. Medical History Sacroiliitis Rheumatic fever TIA (transient ischemic attack) Right-sided back pain History of COVID-19 Asthma exacerbation Hospital discharge follow-up Sacroiliitis Renal calculi Costovertebral angle tenderness Burning with urination Disc degeneration, lumbar Spondylosis of cervical spine Spondylosis of lumbar spine Pleuritic pain Restrictive lung disease Morbid obesity Asthma Dyslipidemia Essential hypertension Vaginal modesta Seropositive rheumatoid arthritis Rheumatoid arthritis Diabetes Surgical History History of cholecystectomy Hx of colonoscopy (09/01/19) History of surgery on wrist Family History Family History Father Diabetes mellitus Myocardial infarction Hypertension CVD (cardiovascular disease) Mother Diabetes mellitus CVD (cardiovascular disease) Sister No problems noted. Son No problems noted. Son No problems noted. Son No problems noted. Daughter Thyroiditis Daughter No problems noted. Daughter No problems noted. Daughter No problems noted. Daughter No problems noted. Social History Social History Housing: Apartment Unable to assess alcohol history related to: Unknown Alcohol intake: unknown Patient Tobacco Use Status: Never used Tobacco e-Cigarette/Vaping Use: Never Used Second Hand Smoke Exposure: No Advance Directives: No Advance Directives Information Provided: No Do you have a plan to hurt others: No Plan service: No Current occupational status: disabled Sexual orientation: Straight/Heterosexual Gender identity: Female Cognitive needs: No Hearing needs: No Vision needs: No Physical Exam ED Vital Signs: Vital Signs - 24 hr 03/28/24 14:33 03/28/24 18:24 03/28/24 19:23 Temperature 97.6 F 98.2 F 98.4 F Pulse Rate 80 65 65 Respiratory Rate 18 14 16 Blood Pressure 197/87 H 183/92 H 163/89 H Pulse Oximetry 99 99 100 Oxygen Delivery Method Room Air Room Air Room Air 03/28/24 20:27 Temperature Pulse Rate 61 Respiratory Rate 18 Blood Pressure 157/83 H Pulse Oximetry 98 Oxygen Delivery Method Room Air BMI result Body Mass Index 40.5 Exam: General: Awake, alert in no distress Head: Normocephalic, atraumatic EENT: PERRL, Lids normal, sclera normal, conjunctiva normal, nose normal , ears normal, throat without erythema or exudates Neck: Supple, no adenopathy Lung: breath sounds symmetric, no wheezing, rales or rhonchi Chest: symmetric movement, nontender Heart: regular rate and rhythm, normal S1, S2 no murmurs or rubs Abdomen: Moderate right upper quadrant tenderness and epigastric tenderness, normoactive bowel sounds, no rebound, no voluntary or involuntary guarding Back: no vertebral tenderness, positive right CVA tenderness Extremities: no deformities, moves all extremities symmetrically Neuro: Awake, alert, oriented, normal speech, cranial nerves intact, moves all extremities symmetrically Psych: Pleasant, cooperative Course Course Course Narrative: RME: Done by DANYELL Sullivan: 64 female presents to ED for chronic right flank right upper quadrant right lower abdominal pain. Patient is sent from primary clinic today due to elevated blood pressure. History of high blood pressure. Patient states blood pressure with due to pain. Physical exam positive for right upper quadrant tenderness, right lower quadrant tenderness, and right flank pain. Labs ordered. Images ordered, 5:18pm: Patient sound abdomen normal. Patient sent for CT scan to check for flank and lumbar spine. Patient complaining of headache and hypertensive was sent for CT scan of the head also. Medications Administered Discontinued Medications Generic Name Dose Route Start Last Admin Trade Name Napoleon PRN Reason Stop Dose Admin Acetaminophen 975 mg 03/28/24 17:13 03/28/24 17:16 Acetaminophen 325 Mg Tablet PO 03/28/24 17:14 975 mg ONCE ONE Administration Oxycodone HCl 5 mg 03/28/24 20:19 03/28/24 20:39 Oxycodone Hcl Immed Release 5 Mg Tablet PO 03/28/24 20:20 5 mg ONCE STA Administration Medical Decision Making Medical Decision Making MDM Narrative: 64-year-old female history of TIA, kidney stones, asthma, hypertension, diabetes, RA, chronic back pain presenting to the emergency department for evaluation of elevated blood pressure while she was being evaluated by the pain specialist. Patient has been experiencing right upper quadrant and right flank pain for months and has been seen here in the emergency department several times for this complaint. Patient states she is taking Tylenol ibuprofen with no relief for pain. She has been taking her antihypertensive medications. Vital signs did reveal elevated systolic blood pressures here in the emergency department with the highest being 216/94. Exam did reveal right upper quadrant tenderness, epigastric tenderness and right flank tenderness. Differential diagnosis: ?Includes but is not limited to stroke, intracranial bleed, kidney failure, liver failure, renal colic, ureteral stone, urinary tract infection, electrolyte abnormalities, anemia Following evaluation was ordered: CBC, CMP, lipase, troponin, urinalysis, CT scan of the abdomen pelvis without IV contrast, CT scan of the brain without IV contrast, right upper quadrant altered Course: 21:31 My interpretation patient's laboratory evaluation is as follows: CBC was normal. CMP was normal except for an elevated glucose of 209. Lipase was normal. Troponin was below detectable limits. Urinalysis was negative. CT scan of the head, abdomen and pelvis without IV contrast did not reveal any clear cause for her symptoms. Right upper quadrant ultrasound was also unremarkable. This time I do not have a clear cause for her abdominal pain. Patient has elevated blood pressure was most likely caused by her abdominal pain and anxiety. The patient's blood pressure did improve to 163/89 without any treatment. I did discuss management of blood pressure with the patient and the need to follow-up with her PCP to determine if she has a change in her blood pressure regimen. Patient's pain was moderate to severe in the emergency department she was given 1 oxycodone 5 mg orally for pain but I told her that I would not prescribe a narcotic medication for this pain. She was given printed and verbal instructions and discharged home Admission/Observation Consideration of admission/observation: Escalation of care including admission/observation considered Lab Data MDM Lab Attestation statement: I reviewed the patient's lab results. 03/28/24 14:55 03/28/24 14:55 Labs: Lab Results 03/28/24 03/28/24 Range/Units 14:55 17:28 WBC 6.9 (4.8-10.8) X10*3/uL RBC 4.50 (4.20-5.50) X10*6/uL Hgb 14.4 (12.0-16.0) g/dl Hct 40.6 (37.0-47.0) % MCV 90.2 (80.0-98.0) fL MCH 32.0 (27.0-33.0) pg MCHC 35.5 H (31.0-35.0) g/dl RDW 11.8 (11.0-16.0) % Plt Count 163 (160-400) X10*3/uL MPV 11.2 (9.4-12.3) fL Immature Gran % (Auto) 0.4 (0.0-0.4) % Neut % (Auto) 56.9 (45-73) % Lymph % (Auto) 30.2 (20-40) % Ritchie % (Auto) 5.9 (2-11) % Eos % (Auto) 6.2 H (0-4) % Baso % (Auto) 0.4 (0-2) % Lymph # (Auto) 2.1 (1.2-4.9) X10*3/uL Ritchie # (Auto) 0.4 (0.1-1.2) X10*3/uL Eos # (Auto) 0.4 (0.0-0.4) X10*3/uL Baso # (Auto) 0.0 (0.0-0.2) X10*3/uL Abs Immat Gran (auto) 0.03 (0.00-0.03) X10*3/uL Absolute Neuts (auto) 3.9 (2.0-8.3) x10*3/uL Absolute Nucleated RBC 0.000 (0.0-0.012) X10*3/uL Nucleated RBC % (auto) 0.0 (0.0-0.2) /100WBC Sodium 141 (135-145) mmol/L Potassium 4.0 (3.3-5.1) mmol/L Chloride 107 (96-108) mmol/L Carbon Dioxide 28 (22-29) mmol/L Anion Gap 10 L (12-20) BUN 13 (9-16) mg/dL Creatinine 0.76 (0.5-1.4) mg/dL Estim Creat Clear Calc 79.7 Estimated GFR > 60 Random Glucose 209 H (60-115) mg/dL Calcium 9.7 D (8.4-10.2) mg/dL Total Bilirubin 0.6 (0.0-1.0) mg/dL AST 25 (5-31) U/L ALT 30 (0-31) U/L Alkaline Phosphatase 106 (39-117) U/L Troponin I High Sens < 2.7 (<3.5-17.0) ng/L Total Protein 7.2 (6.5-8.0) g/dL Albumin 3.9 (3.5-5.0) g/dL Lipase 30 (8-78) U/L Urine Color Yellow Urine Appearance Clear Urine pH 7.0 (5.0-9.0) Ur Specific Tynan 1.010 (1.005-1.025) Urine Protein Negative (Neg-Trace) mg/dL Urine Glucose (UA) Negative (Negative) mg/dL Urine Ketones Negative (Negative) mg/dL Urine Blood Negative (Negative) Urine Nitrite Negative (Negative) Ur Leukocyte Esterase Negative (Negative) Independent Interpretation I performed an independent interpretation of an: EKG Interpretation: My interpretation patient's 12 EKG done at 14:46 hours is as follows: Normal sinus rhythm rate of 70, normal MA interval, QRS duration QTC interval, no ST segment elevation, no ST segment depression, no significant T-wave abnormalities Radiology Impression Discussion of test interpretation with radiology: I have reviewed the radiologist's reading. Radiologist Impression: CT head/brain wo IV con IMPRESSION: Lacunar infarcts and deep left parietal lobe indeterminant age, versus a prominent perivascular space. MRI could be utilized for further characterization if clinically indicated. No intracranial bleed. Dictated By: Sanam Dixon MD CT abdomen pelvis wo IV con IMPRESSION: 1. No CT evidence of acute intra-abdominal process to explain patient's pain symptoms. 2. Redemonstration of small periumbilical hernia containing fat only, no bowels. 3. Heterogeneous liver texture, diffusely hypodense suggesting hepatic steatosis and/or liver cirrhosis. Hypodense area in the liver left lobe adjacent to the gallbladder fossa, the location is common for focal fat sparing. Evaluation of the liver is limited on noncontrast CT scan. 4. Gallbladder not visualized might have been removed and/or contracted. 5. Degenerative disc disease lumbar spine especially L5-S1. Dictated By: Sanam Dixon MD US abdomen limited IMPRESSION: 1. Status post cholecystectomy. No bile duct dilatation. 2. Diffuse fatty change of liver. Dictated By: Theodore Boggs MD Independent Historian Clinical information obtained from an independent historian. History obtained from or confirmed by: Other (Son-in-law) Chronic Conditions Patient?s care impacted by: Diabetes and Hypertension Discharge Plan Discharge Clinical Impression: Right flank pain, Abdominal pain, Essential hypertension Patient Disposition: Home, Self-Care Additional Instructions: Your blood work today was normal. You had a CT scan of your head, abdomen pelvis with no findings on these tests to explain your pain. You had a right-sided ultrasound with no findings to explain your pain. Your urine test was negative for an infection. At this time I do not have a clear cause for your pain, you will need to continue taking your Tylenol and ibuprofen follow-up with your doctor and pain specialist to see if they can help you with this pain. High blood pressure instructions: The reason to check your blood pressure at home is to give your doctor an idea of what your blood pressure does when you are not in the doctor's office. Take your blood pressure in the mornings, Mondays , Wednesdays and Fridays and then write down these readings to discuss them with your doctor at your next visit. Do this for 2 weeks. If your doctor thinks that your blood pressures are too high then they will either increase your high blood pressure medication or start you on a other high blood pressure medication. If your doctor changes your blood pressure medications it will take anywhere from 2-6 week before these medications work to reduce your blood pressure. Follow-up with your doctor to discuss your blood pressure readings in 2 weeks Please return to the emergency department if your symptoms get worse or if you develop any new symptoms that are concerning to you. Prescriptions: No Action albuterol sulfate 90 mcg/actuation HFA aerosol inhaler 2 inh PO Q4H PRN (Reason: shortness of breath or wheezing) Qty: 8.5 1RF (DME) FreeStyle Lite Strips Strip See Rx Instructions .ROUTE .MEDSUPPLY Qty: 50 11RF Rx Instructions: Use 1 test strip once a day (DME) blood-glucose meter [FreeStyle Lite Meter] Kit See Rx Instructions .ROUTE .MEDSUPPLY Qty: 1 0RF Rx Instructions: E11.9 ONCE A DAY (DME) lancets [FreeStyle Lancets] 28 gauge misc See Rx Instructions .ROUTE .MEDSUPPLY Qty: 100 11RF Rx Instructions: Use 1 lancet once a day as needed albuterol sulfate 2.5 mg /3 mL (0.083 %) solution for nebulization 2.5 mg inhalation Q4-6H PRN (Reason: shortness of breath or wheezing) 30 Days Qty: 90 2RF Orencia ClickJect 125 mg/mL auto-injector 125 mg subcut QWEEK Qty: 4 2RF (DME) blood pressure monitor Kit See Rx Instructions .Route Qty: 1 0RF Rx Instructions: As directed docusate sodium [Col-Rite] 100 mg capsule 100 mg PO BID Qty: 30 0RF lisinopril 10 mg tablet 10 mg PO DAILY 90 Days Qty: 90 0RF diclofenac sodium [Aleve (diclofenac)] 1 % gel 2 g topical QID 30 Days Qty: 100 0RF Rx Instructions: apply to single elbow, wrist or hand; for hand includes palm/fingers/back of hand rosuvastatin 10 mg tablet 10 mg PO DAILY 90 Days Qty: 90 1RF metformin 1,000 mg tablet 1,000 mg PO BID 90 Days Qty: 180 1RF Combivent Respimat 20-100 mcg/actuation mist 2 puff inhalation Q4H 30 Days Qty: 4 3RF fluticasone propionate 220 mcg/actuation HFA aerosol inhaler 2 puff inhalation BID 30 Days Qty: 12 5RF Rx Instructions: administer with spacer gabapentin 300 mg capsule 300 mg PO TID 30 Days Qty: 90 0RF (DME) cock up splint See Rx Instructions .Route .MEDSUPPLY Qty: 1 0RF Rx Instructions: wear on the right wrist at night Print Language: Japanese
--- NOTE | 2024-03-28 14:43 | ECG_ITS ---
Test Reason : ABD PAIN Blood Pressure : / mmHG Vent. Rate : 070 BPM Atrial Rate : 070 BPM P-R Int : 188 ms QRS Dur : 094 ms QT Int : 390 ms P-R-T Axes : 035 -03 036 degrees QTc Int : 421 ms Normal sinus rhythm Moderate voltage criteria for LVH, may be normal variant ( R in aVL , Clyde product ) Borderline ECG When compared with ECG of 18-APR-2022 16:33, No significant change was found Referred By: Víctor Sulliavn Electronically Signed By:Charlie Peters
[2024-03-28 14:58] LABS: MANUAL DIFF FLAG NO
[2024-03-28 15:03] LABS: Basophils Percent Auto 0.4 % (0-2); Eosinophils Absolute Auto 0.4 X10*3/uL (0.0-0.4); Eosinophils Percent Auto 6.2 % (0-4); Hematocrit 40.6 % (37.0-47.0); Hemoglobin 14.4 g/dl (12.0-16.0); Imm Gran Abs Auto 0.03 X10*3/uL (0.00-0.03); Imm Gran Pct Auto 0.4 % (0.0-0.4); Lymphocytes Absolute Auto 2.1 X10*3/uL (1.2-4.9); Lymphocytes Percent Auto 30.2 % (20-40); Mean Corpuscular HGB Conc 35.5 g/dl (31.0-35.0); Mean Corpuscular Volume 90.2 fL (80.0-98.0); Mean Platelet Volume 11.2 fL (9.4-12.3); Monocytes Absolute Auto 0.4 X10*3/uL (0.1-1.2); Monocytes Percent Auto 5.9 % (2-11); Neutrophils Absolute Auto 3.9 x10*3/uL (2.0-8.3); Neutrophils Percent Auto 56.9 % (45-73); Platelet Count 163 X10*3/uL (160-400); Red Cell Distribution Width 11.8 % (11.0-16.0); White Blood Count 6.9 X10*3/uL (4.8-10.8)
[2024-03-28 15:18] LABS: Alanine Aminotransferase 30 U/L (0-31); Albumin Level 3.9 g/dL (3.5-5.0); Alkaline Phosphatase 106 U/L (39-117); Anion Gap 10 (12-20); Aspartate Amino Transferase 25 U/L (5-31); Bilirubin Total 0.6 mg/dL (0.0-1.0); Blood Urea Nitrogen 13 mg/dL (9-16); Calcium 9.7 mg/dL (8.4-10.2); Carbon Dioxide 28 mmol/L (22-29); Chloride 107 mmol/L (96-108); Creatinine Clr Calc Pharmacy 79.7; Estimated Glomerular Filt Rate > 60; Glucose Random 209 mg/dL (60-115); Lipase 30 U/L (8-78); Sodium 141 mmol/L (135-145); Total Protein 7.2 g/dL (6.5-8.0)
[2024-03-28 15:29] LABS: Troponin-I High Sensitivity < 2.7 ng/L (<3.5-17.0)
[2024-03-28] MEDS: Acetaminophen 325 MG TABLET 975 MG PO (17:16)
[2024-03-28 17:59] LABS: Appearance Urine Clear; Color Urine Yellow; Glucose Urine UA Negative (Negative); Leukocyte Esterase Urine Negative (Negative); Nitrite Urine Negative (Negative); Urine Blood Negative (Negative); Urine Ketones Negative (Negative); Urine Protein Negative (Neg-Trace)
[2024-03-28 18:24] VITALS: BP 183/92; PULSE 65; RESP 14; TEMP 36.8; O2SAT 99
[2024-03-28 19:23] VITALS: BP 163/89; PULSE 65; RESP 16; TEMP 36.9; O2SAT 100
[2024-03-28 20:27] VITALS: BP 157/83; PULSE 61; RESP 18; O2SAT 98
[2024-03-28] MEDS: oxyCODONE HCl Immed Release 5 MG TABLET PO (20:39)
[2024-03-28 20:45] VITALS: BP 157/83; PULSE 61; RESP 18; TEMP 36.9; O2SAT 98
== END 2024-03-28 20:46 | disposition home or self-care (01) ==
PROVIDERS: Physician Assistant; Emergency Provider Emergency Medicine Emergency Medical Services; PCP Internal Medicine
DX: R10.9 Unspecified abdominal pain (principal); R51.9 Headache, unspecified; E11.9 Type 2 diabetes mellitus without complications; E78.5 Hyperlipidemia, unspecified; J45.909 Unspecified asthma, uncomplicated; Z79.84 Long term (current) use of oral hypoglycemic drugs; Z79.02 Long term (current) use of antithrombotics/antiplatelets; Z79.899 Other long term (current) drug therapy
CPT/HCPCS: 36415; 70450; 74176; 76705; 80053; 81003; 83690; 84484; 85025; 93005; 99284

== ENCOUNTER → 2024-03-28 14:43 | Outpatient (BNV) | payer OTHER, SELFPAY | PROVIDERS: PCP Internal Medicine; Visit Provider Internal Medicine Cardiovascular Disease | DX: R10.9 Unspecified abdominal pain (principal); R94.31 Abnormal electrocardiogram [ECG] [EKG] | CPT/HCPCS: 93010 ==

== ENCOUNTER 2024-03-30 07:57 | Outpatient (AMB) | payer OTHER, SELFPAY ==
[2024-03-30 08:06] VITALS: BP 160/84; BMI 40.1
--- NOTE | 2024-03-30 08:06 | MHC.PC.OV ---
Vital Signs 03/30/24 08:06 03/30/24 08:25 Height 5 ft 1 in Weight 212 lb BMI 40.1 BP 160/84 H 160/80 H Blood Pressure Location Lt brachial Lt brachial Position Sitting Sitting Intake Visit Reasons: High BP Intake Note: Patient here for a follow up BP Manager Aviation Required: No Accompanied by: Self / Same As Patient Allergies cyclobenzaprine [From Flexeril] Allergy (Intermediate, Verified 03/30/24 08:16) Dizziness orphenadrine [From Norflex] Allergy (Intermediate, Verified 03/30/24 08:16) Dizziness sarilumab [From Kevzara] Allergy (Intermediate, Verified 03/30/24 08:16) Rash Medication List - Last Reconciled 03/30/24 by Aniyah Friend MD albuterol sulfate 90 mcg/actuation 2 inhalations PO Q4H PRN albuterol sulfate 2.5 mg (3 mL) inhalation Q4-6H PRN 30 days blood pressure monitor As directed blood sugar diagnostic (FreeStyle Lite Strips) Use 1 test strip once a day blood-glucose meter (FreeStyle Lite Meter kit) E11.9 ONCE A DAY [cock up splint wear on the right wrist at night ] diclofenac sodium 1% (Aleve (diclofenac)) 2 grams topical QID 30 days docusate sodium (Col-Rite) 100 mg PO BID fluticasone propionate 220 mcg/actuation 2 puffs inhalation BID 30 days gabapentin 300 mg PO TID 30 days ipratropium-albuterol 20-100 mcg/actuation (Combivent Respimat) 2 puffs inhalation Q4H 30 days lancets (FreeStyle Lancets) Use 1 lancet once a day as needed lisinopril 10 mg PO DAILY 90 days metformin 1,000 mg PO BID 90 days Orencia ClickJect (abatacept) 125 mg subcut QWEEK NS rosuvastatin 10 mg PO DAILY 90 days Tobacco use date assessed: 10/25/23 Fall risk assessment: No Falls in past year Last assessed Fall Risk: 03/30/24 Dental Screening Dental Screen Date: 03/22/24 HPI HPI Comments History of Present Illness Details This is a 64-year-old female with diabetes mellitus type 2, seropositive rheumatoid arthritis, hypertension and morbid obesity that comes today for ER discharge follow-up due to elevated blood pressure, abdominal pain and a headache. She had an abdominal CT and head CT and abdominal CT was normal but head CT shows lacunar infarcts. Will be prescribed low-dose aspirin for secondary prophylaxis. Last A1c was elevated and I will restart her on Trulicity which as per patient was working well. Rheumatoid arthritis is follow by Rheumatology and asthma controlled with medications. Blood pressure elevated and she did not took her lisinopril today but I will still increase it to 20 mg and recheck blood pressure with nurse navigator in 3 weeks. She is morbidly obese with a BMI of 40.1 and declines weight loss surgery. Advised to do diet and exercise as tolerated to reach BMI goal less than 30. Still complains of her right back pain that has been present for over 6 months and is tender to palpation. Said that it was relieved by physical therapy where they placed a large bandage on. Will prescribe nabumetone to see if there is a relief. [facility] Medical History (Updated 03/30/24 @ 09:10 by Aniyah Friend MD) Morbid obesity with BMI of 45.0-49.9, adult Sacroiliitis Rheumatic fever TIA (transient ischemic attack) Right-sided back pain History of COVID-19 Asthma exacerbation Hospital discharge follow-up Sacroiliitis Renal calculi Costovertebral angle tenderness Burning with urination Disc degeneration, lumbar Spondylosis of cervical spine Spondylosis of lumbar spine Pleuritic pain Restrictive lung disease Morbid obesity Asthma Dyslipidemia Essential hypertension Vaginal modesta Seropositive rheumatoid arthritis Rheumatoid arthritis Diabetes Surgical History History of cholecystectomy Hx of colonoscopy (09/01/19) History of surgery on wrist Family History Father Diabetes mellitus Myocardial infarction Hypertension CVD (cardiovascular disease) Mother Diabetes mellitus CVD (cardiovascular disease) Sister No problems noted. Son No problems noted. Son No problems noted. Son No problems noted. Daughter Thyroiditis Daughter No problems noted. Daughter No problems noted. Daughter No problems noted. Daughter No problems noted. Social History Housing: Apartment Unable to assess alcohol history related to: Unknown Alcohol intake: unknown Patient Tobacco Use Status: Never used Tobacco e-Cigarette/Vaping Use: Never Used Second Hand Smoke Exposure: No service: No Current occupational status: disabled Sexual orientation: Straight/Heterosexual Gender identity: Female Cognitive needs: No Hearing needs: No Vision needs: No Female Reproductive History Menstrual Age of Menarche: 11 Date of menopause: 01/22/10 Questionnaire Thrive Questionnaire Date Thrive assessed: 10/25/23 SONA-7 AMB Questionnaire SONA-7 Date SONA - 7 assessed: 10/25/23 Source: Developed by Drs. Spencer Gonzalez, Anamaria Bartlett, Clayton Azar and colleagues, with an educational anna from [employer]. Review of Systems Const All systems reviewed & are unremarkable except as noted in HPI and below Card Denies chest pain at rest, Denies chest pain with activity, Denies edema, Denies irregular heart rhythm, Denies claudication, Denies dyspnea, Denies dyspnea on exertion, Denies orthopnea, Denies paroxysmal nocturnal dyspnea and Denies slow heart rate Resp Denies cough, Denies dyspnea and Denies dyspnea on exertion GI Denies abdominal pain, Denies change in bowel habits, Denies excessive flatus, Denies nausea and Denies vomiting Denies urinary incontinence, Denies urinary hesitancy and Denies urinary urgency Physical exam (Primary Care) Vital Signs: Last Vital Signs BP 160/80 H 03/30/24 08:25 Care Plan Goal for BP management: Increase lisinopril from 10 mg to 20 mg. Advised low-salt diet. Next steps: Recheck blood pressure with nurse navigator in 3 weeks. BMI result Body Mass Index 40.1 BMI Assessment/Plan discussion: High BMI High, discussed plan: lifestyle, weight reduction, dietary and physical activity Tobacco/Smoking Status: Tobacco use Status Tobacco use date assessed 10/25/23 03/30/24 08:10 Patient Tobacco Use Status Never used Tobacco 03/30/24 08:10 e-Cigarette/Vaping Use Never Used 03/30/24 08:10 Thrive Assessment: Date of Thrive Assessment Date Thrive assessed 10/25/23 03/30/24 08:10 Resp Effort & Inspection: normal respiratory effort Auscultation: clear to auscultation bilaterally Cardio Jugular venous distension: no JVD Rate: regular rate Rhythm: regular rhythm Heart sounds: S1 normal heart sound present and S2 normal heart sound present Extrem General: Yes full ROM Assessment and Plan Assessment & Plan (1) Diabetes: Code(s): E11.9 - Type 2 diabetes mellitus without complications Qualifiers: Diabetes mellitus type: type 2 Diabetes mellitus superintendent [employer] insulin use: without superintendent [employer] use Diabetes mellitus complication status: with hyperglycemia Qualified Code(s): E11.65 - Type 2 diabetes mellitus with hyperglycemia Plan: Continue metformin. Start Trulicity. A1c goal is equal or less than 7%. (2) Seropositive rheumatoid arthritis: Comment: ++RF+++CCP dx in her 40s Humira:08/29 - 03/30 -active disease on exam Enbrel:04/29-08/30 - active disease on exam Xeljanz:08/30-12/29- active disease on exam Kevzara: 01/2021- stopped due to rash Orencia: 01/2021 - present effective MTX in the past - transaminitis Code(s): M05.9 - Rheumatoid arthritis with rheumatoid factor, unspecified Plan: Continue Orencia. Follow-up with rheumatology. (3) Essential hypertension: Code(s): I10 - Essential (primary) hypertension Plan: Increase lisinopril from 10 mg to 20 mg. Recheck blood pressure with nurse navigator in 3 weeks. Blood pressure goal is equal or less than 130/80. (4) Lacunar infarction: Code(s): I63.81 - Other cerebral infarction due to occlusion or stenosis of small artery Plan: Start aspirin. (5) Morbid obesity with BMI of 40.0-44.9, adult: Code(s): E66.01 - Morbid (severe) obesity due to excess calories; Z68.41 - Body mass index [BMI] 40.0-44.9, adult Plan: Start diet and exercise. BMI goal is less than 30. Medications: New nabumetone 750 mg PO BID 60 tabs 6RF 30 days dulaglutide (Trulicity) 0.75 mg (0.5 mL) subcut QWEEK 6.5 mL 0RF 90 days E11.65 - Type 2 diabetes mellitus with hyperglycemia lisinopril 20 mg PO DAILY 30 tabs 6RF 30 days Discontinued lisinopril Discontinued Reason: Patient Completed Course 10 mg PO DAILY 90 days 90 tabs 0RF Coding Level of Care Code Est Pt Level 4 (23719) Complex EM visit Add On G2211 Diagnoses Type 2 diabetes mellitus with hyperglycemia, without long-term current use of insulin E11.65 Diabetes mellitus type: type 2 Diabetes mellitus senior living insulin use: without senior living use Diabetes mellitus complication status: with hyperglycemia Seropositive rheumatoid arthritis M05.9 Essential hypertension I10 Lacunar infarction I63.81 Morbid obesity with BMI of 40.0-44.9, adult E66.01; Z68.41 Time Spent (min) 23
[2024-03-30 08:25] VITALS: BP 160/80
== END 2024-03-30 08:26 | disposition home or self-care (01) ==
PROVIDERS: PCP Internal Medicine; Visit Provider Internal Medicine
DX: E11.65 Type 2 diabetes mellitus with hyperglycemia (principal); M05.9 Rheumatoid arthritis with rheumatoid factor, unspecified; E66.01 Morbid (severe) obesity due to excess calories; Z68.41 Body mass index [BMI] 40.0-44.9, adult; I63.81 Other cerebral infarction due to occlusion or stenosis of small artery; I10 Essential (primary) hypertension
CPT/HCPCS: 99214; G2211

== ENCOUNTER 2024-04-07 10:56 | Emergency (ER) | payer OTHER, SELFPAY ==
[2024-04-07 11:13] VITALS: BMI 40.2
[2024-04-07 11:16] VITALS: BP 178/96; PULSE 84; RESP 17; TEMP 36.6; O2SAT 98
--- NOTE | 2024-04-07 11:34 | ED.GENADULT ---
HPI - General Adult General Chief complaint: General Medical Stated complaint: numbness face and hand lower pain in back Time Seen by Provider: 04/07/24 11:02 Source: patient, family, old records reviewed and exchange architect Mode of arrival: ambulatory Limitations: no limitations History of Present Illness ED Provider: GHISLAINE CAMERON narrative: 64 yo female PMH of TIA, RA, GONGORA, constipation, chronic back pain with close pain management follow up and last visit showed plan for lumbar MBBB, HTN did not take meds today here with c/o chronic R flank pain tingling in both hands this has been going on and off for 1 year. No changes she has no new deficits. MD complaint: back pain Onset (ago): year(s) (1) Location: back and right Radiation: distal Severity: severe Quality: burning and stabbing Pain Consistency: constant Relieving factors: none Exacerbating factors: none Associated symptoms: other (chronic intermittent hand and facial paresthesias that happen daily) Treatments prior to arrival: other (all PCP meds except HTN meds) Related Data Previous Rx's ?Medication ?Instructions ?Recorded albuterol sulfate 90 mcg/actuation 2 inh PO Q4H PRN shortness of 08/13/20 aerosol inhaler breath or wheezing #8.5 grams docusate sodium 100 mg capsule 100 mg PO BID #30 caps 12/07/22 (Col-Rite) blood sugar diagnostic (FreeStyle #50 ea 02/10/23 Lite Strips) blood-glucose meter (FreeStyle #1 ea 02/10/23 Lite Meter kit) lancets 28 gauge (FreeStyle #100 ea 02/10/23 Lancets) cock up splint #1 ea 03/03/23 albuterol sulfate 2.5 mg/3 mL 2.5 mg (3 mL) inhalation Q4-6H PRN 06/29/23 (0.083 %) solution for nebulization shortness of breath or wheezing 30 days #90 mL metformin 1,000 mg tablet 1,000 mg PO BID 90 days #180 tabs 06/29/23 rosuvastatin 10 mg tablet 10 mg PO DAILY 90 days #90 tabs 10/25/23 Orencia ClickJect 125 mg/mL 125 mg subcut QWEEK #4 mL 02/07/24 subcutaneous auto-injector (abatacept) blood pressure monitor #1 ea 02/07/24 fluticasone propionate 220 2 puff inhalation BID asthma 30 02/23/24 mcg/actuation HFA aerosol inhaler days #12 grams ipratropium 20 mcg-albuterol 100 2 puff inhalation Q4H ASTHMA/COUGH 02/23/24 mcg/actuation mist for inhalation 30 days #4 grams (Combivent Respimat) gabapentin 300 mg capsule 300 mg PO TID pain 30 days #90 caps 03/07/24 diclofenac sodium 1 % topical gel 2 g topical QID 30 days #100 grams 03/22/24 (Aleve (diclofenac)) dulaglutide 0.75 mg/0.5 mL 0.75 mg (0.5 mL) subcut QWEEK 90 03/30/24 subcutaneous pen injector days #6.5 mL (Trulicity) lisinopril 20 mg tablet 20 mg PO DAILY 30 days #30 tabs 03/30/24 nabumetone 750 mg tablet 750 mg PO BID 30 days #60 tabs 03/30/24 lidocaine 5 % topical patch 1 patch topical DAILY #30 ea 04/07/24 oxycodone 5 mg tablet 5 mg PO Q8H PRN pain #9 tabs 04/07/24 Allergies Allergy/AdvReac Type Severity Reaction Status Date / Time cyclobenzaprine Allergy Intermediate Dizziness Verified 03/30/24 08:16 [From Flexeril] orphenadrine [From Norflex] Allergy Intermediate Dizziness Verified 03/30/24 08:16 sarilumab [From Kevzara] Allergy Intermediate Rash Verified 04/07/24 11:18 Review of Systems Review of Systems: Constitutional : No Weight loss, No Fever, No Chills, ENT/Mouth : No Hearing loss, No Ear Pain, No Nasal Congestion, No Sinus Pain, No Hoarseness, No sore throat, No Rhinorrhea, No Swallowing Difficulty Cardiovascular : No Chest Pain, No SOB Respiratory : No Cough, No Dyspnea Gastrointestinal : No Nausea, No Vomiting, No Diarrhea, No abdominal Pain, No Hematochezia, No Melena Genitourinary : No Dysuria, No Urinary Frequency, No Hematuria, No Urinary Incontinence, Musculoskeletal : positive back pain Skin : No Skin Lesions, No rash Neuro : No Weakness, pos Numbness, pos Paresthesias, no loss of bowel or bladder incontinence, no saddle anesthesia All other systems reviewed and are negative PMFSH Past Medical History Attestation statement: The following information was validated with the patient. Source: old records reviewed Medical History Morbid obesity with BMI of 45.0-49.9, adult Sacroiliitis Rheumatic fever TIA (transient ischemic attack) Right-sided back pain History of COVID-19 Asthma exacerbation Hospital discharge follow-up Sacroiliitis Renal calculi Costovertebral angle tenderness Burning with urination Disc degeneration, lumbar Spondylosis of cervical spine Spondylosis of lumbar spine Pleuritic pain Restrictive lung disease Morbid obesity Asthma Dyslipidemia Essential hypertension Vaginal modesta Seropositive rheumatoid arthritis Rheumatoid arthritis Diabetes Surgical History History of cholecystectomy Hx of colonoscopy (09/01/19) History of surgery on wrist Family History Family History Father Diabetes mellitus Myocardial infarction Hypertension CVD (cardiovascular disease) Mother Diabetes mellitus CVD (cardiovascular disease) Sister No problems noted. Son No problems noted. Son No problems noted. Son No problems noted. Daughter Thyroiditis Daughter No problems noted. Daughter No problems noted. Daughter No problems noted. Daughter No problems noted. Social History Social History Housing: Apartment Unable to assess alcohol history related to: Unknown Alcohol intake: unknown Patient Tobacco Use Status: Never used Tobacco Smoked in Last 30 Days: No e-Cigarette/Vaping Use: Never Used Second Hand Smoke Exposure: No Use of substances other than those prescribed or required for medical reasons: No Advance Directives: No Advance Directives Information Provided: Yes Do you have a plan to hurt others: No Plan service: No Current occupational status: disabled Sexual orientation: Straight/Heterosexual Gender identity: Female Cognitive needs: No Hearing needs: No Vision needs: No Physical Exam ED Vital Signs: Vital Signs - 24 hr 04/07/24 11:16 Temperature 97.8 F Pulse Rate 84 Respiratory Rate 17 Blood Pressure 178/96 H Pulse Oximetry 98 Oxygen Delivery Method Room Air BMI result Body Mass Index 40.2 Appearance: Alert. Oriented X3. No acute distress. Eyes: Pupils equal, round and reactive to light. ENT: Pharynx normal. Neck: Normal inspection. Neck supple. CVS: Normal heart rate and rhythm. Pulses normal. Respiratory: No respiratory distress. Breath sounds normal. Abdomen: Soft and nontender. Back: ttp along mid lumbar thoracic joing R SI joint area R flank skin sensitive to touch distal NV intact Skin: Skin warm and dry. Normal skin color. Normal skin turgor. Extremities: No lower extremity edema. No calf ttp Neuro: Oriented X 3. No motor deficit. No sensory deficit. Medical Decision Making Medical Decision Making MDM Narrative: 64 yo female PMH of TIA, RA, GONGORA, constipation, chronic back pain with close pain management follow up and last visit showed plan for lumbar MBBB, HTN here after not taking her pain medications - will dose with lisinopril she also c/o chronic pain no change from baseline at this time oral medications ordered and pain patches - will refer back to pain clinic as they have plan for procedure which after review of notes looked like it helped. No change in chronic complaint no need for repeat imaging Differential Diagnosis Differential Diagnoses: The differential diagnosis associated with the presentation includes known disc disease, neuropathic pain doubt stroke given 1 year of chronic pain Independent Historian Clinical information obtained from an independent historian. History obtained from or confirmed by: Other (family) External Record Review External record reviewed: Inpatient record, Office record, Outpatient record and Prior outpatient radiology Prescription Management I considered prescription management with: Pain Medication and Other Discharge Plan Discharge Clinical Impression: Right-sided back pain Qualifiers: Back pain location: low back pain Chronicity: chronic Sciatica presence: without sciatica Qualified Code(s): M54.50 - Low back pain, unspecified Patient Disposition: Home, Self-Care Instructions: Chronic Back Pain (DC) Additional Instructions: you were given your lisinopril today do not take again until tomorrow follow up with pain management they have a procedure planned to help your pain return for any worsening symptoms or concerns. Prescriptions: New lidocaine 5 % adhesive patch,medicated 1 patch topical DAILY Qty: 30 0RF Rx Instructions: leave on most painful area for up to 12 hrs oxycodone 5 mg tablet 5 mg PO Q8H PRN (Reason: pain) Qty: 9 0RF Rx Instructions: Partial Fill upon patient request. No Action albuterol sulfate 90 mcg/actuation HFA aerosol inhaler 2 inh PO Q4H PRN (Reason: shortness of breath or wheezing) Qty: 8.5 1RF (DME) FreeStyle Lite Strips Strip See Rx Instructions .ROUTE .MEDSUPPLY Qty: 50 11RF Rx Instructions: Use 1 test strip once a day (DME) blood-glucose meter [FreeStyle Lite Meter] Kit See Rx Instructions .ROUTE .MEDSUPPLY Qty: 1 0RF Rx Instructions: E11.9 ONCE A DAY (DME) lancets [FreeStyle Lancets] 28 gauge misc See Rx Instructions .ROUTE .MEDSUPPLY Qty: 100 11RF Rx Instructions: Use 1 lancet once a day as needed albuterol sulfate 2.5 mg /3 mL (0.083 %) solution for nebulization 2.5 mg inhalation Q4-6H PRN (Reason: shortness of breath or wheezing) 30 Days Qty: 90 2RF Orencia ClickJect 125 mg/mL auto-injector 125 mg subcut QWEEK Qty: 4 2RF (DME) blood pressure monitor Kit See Rx Instructions .Route Qty: 1 0RF Rx Instructions: As directed docusate sodium [Col-Rite] 100 mg capsule 100 mg PO BID Qty: 30 0RF diclofenac sodium [Aleve (diclofenac)] 1 % gel 2 g topical QID 30 Days Qty: 100 0RF Rx Instructions: apply to single elbow, wrist or hand; for hand includes palm/fingers/back of hand lisinopril 20 mg tablet 20 mg PO DAILY 30 Days Qty: 30 6RF nabumetone 750 mg tablet 750 mg PO BID 30 Days Qty: 60 6RF Trulicity 0.75 mg/0.5 mL pen injector 0.75 mg subcut QWEEK 90 Days Qty: 6.5 0RF rosuvastatin 10 mg tablet 10 mg PO DAILY 90 Days Qty: 90 1RF metformin 1,000 mg tablet 1,000 mg PO BID 90 Days Qty: 180 1RF Combivent Respimat 20-100 mcg/actuation mist 2 puff inhalation Q4H 30 Days Qty: 4 3RF fluticasone propionate 220 mcg/actuation HFA aerosol inhaler 2 puff inhalation BID 30 Days Qty: 12 5RF Rx Instructions: administer with spacer gabapentin 300 mg capsule 300 mg PO TID 30 Days Qty: 90 0RF (DME) cock up splint See Rx Instructions .Route .MEDSUPPLY Qty: 1 0RF Rx Instructions: wear on the right wrist at night Print Language: Slovenian
[2024-04-07 12:23] VITALS: BP 161/72
[2024-04-07] MEDS: oxyCODONE HCl Immed Release 5 MG TABLET PO (12:23)
[2024-04-07] MEDS: Lidocaine 4 % Patch ADH..PATCH 1 PATCH TRANSDERMA (12:23)
[2024-04-07] MEDS: lisinopriL 20 MG TABLET PO (12:23)
[2024-04-07 13:08] VITALS: BP 190/70; PULSE 88; RESP 16; TEMP 36.8; O2SAT 99
== END 2024-04-07 13:09 | disposition home or self-care (01) ==
PROVIDERS: Emergency Provider Emergency Medicine; PCP Internal Medicine
DX: M54.50 Low back pain, unspecified (principal); R20.0 Anesthesia of skin; I10 Essential (primary) hypertension; Z79.899 Other long term (current) drug therapy
CPT/HCPCS: 99283; 99284

== ENCOUNTER 2024-04-12 15:06 | Outpatient (AMB) | payer OTHER, SELFPAY ==
[2024-04-12 15:10] VITALS: BP 150/90; PULSE 86; TEMP 36.6; O2SAT 98
--- NOTE | 2024-04-12 15:10 | MHC.OFFWIV ---
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 She states she does see pain management, she uses patches and takes oxycodone however they have not picked up her prescription yet. She states that she is having pain on her right side that is worse when she pushes on it or tries to stand up. She says the pain radiates around her right side to the front. She denies any pain or burning with urination or blood in her urine. She states her last bowel movement was 2 days ago, she denies any fevers or diarrhea. She states she is supposed to start physical therapy on April 17. She denies any history of kidney stones but states she had some kind of surgery in [place] over 5 years ago where they put 3 holes in her abdomen and they broke up her stones in her gallbladder, she is unsure if she still has a gallbladder. She states she does take medications for her diabetes but is only taking metformin right now because her insurance company would not cover 2 of the other medications her doctor prescribed her. 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 [facility] Medical History Morbid obesity with BMI of 45.0-49.9, adult Sacroiliitis Rheumatic fever TIA (transient ischemic attack) Right-sided back pain History of COVID-19 Asthma exacerbation Hospital discharge follow-up Sacroiliitis Renal calculi Costovertebral angle tenderness Burning with urination Disc degeneration, lumbar Spondylosis of cervical spine Spondylosis of lumbar spine Pleuritic pain Restrictive lung disease Morbid obesity Asthma Dyslipidemia Essential hypertension Vaginal modesta Seropositive rheumatoid arthritis Rheumatoid arthritis Diabetes Surgical History History of cholecystectomy Hx of colonoscopy (09/01/19) History of surgery on wrist Family History Father Diabetes mellitus Myocardial infarction Hypertension CVD (cardiovascular disease) Mother Diabetes mellitus CVD (cardiovascular disease) Sister No problems noted. Son No problems noted. Son No problems noted. Son No problems noted. Daughter Thyroiditis Daughter No problems noted. Daughter No problems noted. Daughter No problems noted. Daughter No problems noted. Social History Housing: Apartment Unable to assess alcohol history related to: Unknown Alcohol intake: unknown Patient Tobacco Use Status: Never used Tobacco e-Cigarette/Vaping Use: Never Used Second Hand Smoke Exposure: No service: No Current occupational status: disabled Sexual orientation: Straight/Heterosexual Gender identity: Female Cognitive needs: No Hearing needs: No Vision needs: No Female Reproductive History Menstrual Age of Menarche: 11 Date of menopause: 01/22/10 Review of Systems Const All systems reviewed & are unremarkable except as noted in HPI and below Physical Exam Vital Signs: Last Vital Signs Temp 97.8 F 04/12/24 15:10 Pulse 86 04/12/24 15:10 BP 150/90 H 04/12/24 15:10 Pulse Ox 98 04/12/24 15:10 Oxygen Delivery Method Room Air 04/12/24 15:10 Const General: cooperative, healthy appearing, comfortable, no acute distress and well developed Orientation/consciousness: patient oriented x3 Limitations: no limitations HEENT Head: Yes normal to inspection Eyes General: appearance normal, both eyes and all related structures Neck Neck: Yes normal visual inspection and Yes full ROM Resp Effort & Inspection: normal respiratory effort and able to speak in complete sentences GI Inspection: Yes normal to inspection Palpation (GI): Soft to palpation and nontender (negative Dhillon's) General: Yes no CVA tenderness Back/Spine/Pelvis Other: Pain with palpation of the right sided mid lumbar flank Back: no CVA tenderness Thoracic/Lumbar Spine: pain with thoraco-lumbar ROM, No thoracic spinal tenderness and No lumbar spinal tenderness Skin General skin exam: no rashes or lesions noted Neuro General: patient oriented x3 Extrem General: Yes normal to inspection Results AMB Urinalysis, Automated UA Leukoctes 0 Sarah/uL Last Edit by Scott Keller CMA on 04/12/24 15:50 UA Nitrite Negative Last Edit by Scott Keller CMA on 04/12/24 15:50 UA Urobilinogen 0.2 mg/dL Last Edit by Scott Keller CMA on 04/12/24 15:50 UA Protein 0 mg/dL Last Edit by Scott Keller CMA on 04/12/24 15:50 UA pH 7.5 Last Edit by Scott Keller CMA on 04/12/24 15:50 UA Blood 0 [place]/uL Last Edit by Scott Keller CMA on 04/12/24 15:50 UA Specific [place] 1.015 Last Edit by Scott Keller CMA on 04/12/24 15:50 UA Ketone Negative Last Edit by Scott Keller CMA on 04/12/24 15:50 UA Bilirubin 0 mg/dL Last Edit by Scott Keller CMA on 04/12/24 15:50 UA Glucose 1000 mg/dL Last Edit by Scott Keller CMA on 04/12/24 15:50 AMB Random Glucose (hemocue) AMB Random Glucose (hemocue) 275 mg/dL Last Edit by Scott Keller CMA on 04/12/24 15:53 Results Reviewed Results Reviewed: Laboratory Last Values Random Glu (Clinic) 275 mg/dL 04/12/24 15:52 Urine pH (Auto) 7.5 04/12/24 15:47 Specific [place] (Auto) 1.015 04/12/24 15:47 Urine Protein (Auto) 0 mg/dL 04/12/24 15:47 Glucose (UA)(Auto) 1000 mg/dL 04/12/24 15:47 Urine Ketones (Auto) Negative 04/12/24 15:47 Urine Blood (Auto) 0 [place]/uL 04/12/24 15:47 Urine Nitrite (Auto) Negative 04/12/24 15:47 Urine Bilirubin (Auto) 0 mg/dL 04/12/24 15:47 Urine Urobilinogen (Auto) 0.2 mg/dL 04/12/24 15:47 Leukocyte Esterase (Auto) 0 Sarah/uL 04/12/24 15:47 Assessment & Plan Assessment & Plan (1) Right flank pain: Code(s): R10.9 - Unspecified abdominal pain Plan: UA is negative for infection, however she was 3+ positive glucose so we did a point of care in the office which was 275. Educated patient on low carb diet and recommended close follow-up with her PCP regarding adjusting her diabetes medications to something that her insurance company will cover. Physical exam is relatively unremarkable and appears to be her chronic pain which she is already addressing with pain management and starting physical therapy in 5 days. Educated patient and her son in law on red flag signs and symptoms and when to go to the emergency department. (2) Constipation: Code(s): K59.00 - Constipation, unspecified Qualifiers: Constipation type: drug induced constipation Qualified Code(s): K59.03 - Drug induced constipation Plan: Also discussed chronic use of opioids and constipation and gave patient some MiraLax to try at home as it has been 2 days since her last bowel movement. This could be exacerbating her pain. Plan see above Orders: Orders AMB Urinalysis Automated Today Z13.9 - Encounter for screening, unspecified AMB Random Glucose (hemocue) Today Z13.9 - Encounter for screening, unspecified Coding Level of Care Code Est Pt Level 5 (92382) Diagnoses Right flank pain R10.9 Drug-induced constipation K59.03 Constipation type: drug induced constipation
== END 2024-04-12 16:18 | disposition home or self-care (01) ==
PROVIDERS: PCP Internal Medicine; Visit Provider Physician Assistant
DX: R10.9 Unspecified abdominal pain (principal); K59.03 Drug induced constipation
CPT/HCPCS: 81003; 82948; 99214

== ENCOUNTER 2024-04-17 09:59 | Outpatient (RCR) | payer OTHER, SELFPAY | END 2024-07-14 12:52 | disposition home or self-care (01) | LOC: HO.PT 09:59 | PROVIDERS: PCP Internal Medicine; Visit Provider Internal Medicine | DX: M54.14 Radiculopathy, thoracic region (principal) ==

== ENCOUNTER 2024-04-17 11:06 | Emergency (ER) | payer OTHER, SELFPAY ==
--- NOTE | ~2024-04-17 | CT_ITS ---
EXAMINATION: CT ABDOMEN AND PELVIS WITHOUT CONTRAST CLINICAL INFORMATION: Constipation and pain. COMPARISON: CT scan abdomen pelvis March 28, 2024. Right upper quadrant ultrasound March 28, 2024. TECHNIQUE: Multidetector volumetric imaging was performed from the superior aspect of the liver through the pubic symphysis. Sagittal and coronal reformatted images were obtained on the technologist's workstation. This CT examination was performed using dose optimization techniques as appropriate, variously including the following: *Automated exposure control *Adjustment of mA and/or kV according to patient size (this includes techniques or standardized protocols for targeted exams where dose is matched to indication/reason for exam; i.e. extremities or head) *Use of iterative reconstruction technique DLP: 761 mGy-cm FINDINGS: LUNG BASES: The visualized lung bases are unremarkable. LIVER, GALLBLADDER, AND BILIARY TREE: Right lower liver measures 17.5 cm.. No focal hepatic lesion or biliary ductal dilatation is present. Status post cholecystectomy. PANCREAS: Unremarkable. SPLEEN: Unremarkable. ADRENAL GLANDS: Unremarkable. KIDNEYS AND URETERS: The kidneys are normal in size, shape, and attenuation. No hydronephrosis, hydroureter, or calculi seen. No perinephric stranding. BLADDER: Unremarkable. GASTROINTESTINAL TRACT: The small and large bowel are unremarkable. The appendix is nonvisualized. ABDOMINAL WALL: Small fat-containing umbilical hernia. LYMPH NODES: Normal. VASCULAR: Unremarkable. PELVIC VISCERA: Unremarkable. OSSEOUS STRUCTURES: Multilevel degenerative spondylosis spine. CT/CT abdomen pelvis wo IV con IMPRESSION: No acute abnormality CT scan abdomen pelvis. Fleischner guidelines were followed.
[2024-04-17 11:44] VITALS: BP 214/82; PULSE 75; RESP 18; TEMP 37.1; O2SAT 99; BMI 40.4
[2024-04-17 12:02] LABS: MANUAL DIFF FLAG NO
[2024-04-17 12:06] LABS: Appearance Urine Clear; Color Urine Yellow; Glucose Urine UA 100 mg/dL (Negative); Leukocyte Esterase Urine Negative (Negative); Nitrite Urine Negative (Negative); PH 8.5 (5.0-9.0); Urine Blood Negative (Negative); Urine Ketones Negative (Negative); Urine Protein Negative (Neg-Trace)
[2024-04-17 12:08] LABS: Basophils Percent Auto 0.6 % (0-2); Eosinophils Absolute Auto 0.5 X10*3/uL (0.0-0.4); Eosinophils Percent Auto 7.4 % (0-4); Hematocrit 41.3 % (37.0-47.0); Hemoglobin 14.3 g/dl (12.0-16.0); Imm Gran Abs Auto 0.04 X10*3/uL (0.00-0.03); Imm Gran Pct Auto 0.6 % (0.0-0.4); Lymphocytes Percent Auto 28.6 % (20-40); Mean Corpuscular HGB Conc 34.6 g/dl (31.0-35.0); Mean Corpuscular Volume 92.4 fL (80.0-98.0); Mean Platelet Volume 11.5 fL (9.4-12.3); Monocytes Absolute Auto 0.4 X10*3/uL (0.1-1.2); Monocytes Percent Auto 6.1 % (2-11); Neutrophils Absolute Auto 3.9 x10*3/uL (2.0-8.3); Neutrophils Percent Auto 56.7 % (45-73); Platelet Count 175 X10*3/uL (160-400); Red Blood Count 4.47 X10*6/uL (4.20-5.50); Red Cell Distribution Width 11.7 % (11.0-16.0); White Blood Count 6.9 X10*3/uL (4.8-10.8)
[2024-04-17 12:19] LABS: Alanine Aminotransferase 21 U/L (0-31); Albumin Level 3.9 g/dL (3.5-5.0); Alkaline Phosphatase 107 U/L (39-117); Anion Gap 12 (12-20); Aspartate Amino Transferase 22 U/L (5-31); Bilirubin Total 0.6 mg/dL (0.0-1.0); Blood Urea Nitrogen 12 mg/dL (9-16); Calcium 9.2 mg/dL (8.4-10.2); Carbon Dioxide 28 mmol/L (22-29); Chloride 106 mmol/L (96-108); Creatinine Clr Calc Pharmacy 76.6; Estimated Glomerular Filt Rate > 60; Glucose Random 181 mg/dL (60-115); Potassium 3.6 mmol/L (3.3-5.1); Sodium 142 mmol/L (135-145); Total Protein 7.1 g/dL (6.5-8.0)
--- NOTE | 2024-04-17 15:08 | ED_ITS ---
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 Munoz HPI narrative: a 64-year-old female came in for evaluation elevated blood pressure while she was having a physical therapy session patient also with complaint of headache on and off for the last 3 weeks. Patient takes lisinopril for high blood pressure. Patient is also complaining of right flank / right abdominal pain for the past 3 weeks pain has been constant, with no clear aggravating or relieving factor, stated that she did not have a bowel movement for 2 weeks no nausea, no vomiting, no abdominal distention, passing gas normally. Past surgical history is significant for cholecystectomy. No dysuria, no frequency urination, no vaginal bleed, no vaginal discharge. Related Data Previous Rx's ?Medication ?Instructions ?Recorded albuterol sulfate 90 mcg/actuation 2 inh PO Q4H PRN shortness of 08/13/20 aerosol inhaler breath or wheezing #8.5 grams docusate sodium 100 mg capsule 100 mg PO BID #30 caps 12/07/22 (Col-Rite) blood sugar diagnostic (FreeStyle #50 ea 02/10/23 Lite Strips) blood-glucose meter (FreeStyle #1 ea 02/10/23 Lite Meter kit) lancets 28 gauge (FreeStyle #100 ea 02/10/23 Lancets) cock up splint #1 ea 03/03/23 albuterol sulfate 2.5 mg/3 mL 2.5 mg (3 mL) inhalation Q4-6H PRN 06/29/23 (0.083 %) solution for nebulization shortness of breath or wheezing 30 days #90 mL metformin 1,000 mg tablet 1,000 mg PO BID 90 days #180 tabs 06/29/23 rosuvastatin 10 mg tablet 10 mg PO DAILY 90 days #90 tabs 10/25/23 Orencia ClickJect 125 mg/mL 125 mg subcut QWEEK #4 mL 02/07/24 subcutaneous auto-injector (abatacept) blood pressure monitor #1 ea 02/07/24 fluticasone propionate 220 2 puff inhalation BID asthma 30 02/23/24 mcg/actuation HFA aerosol inhaler days #12 grams ipratropium 20 mcg-albuterol 100 2 puff inhalation Q4H ASTHMA/COUGH 02/23/24 mcg/actuation mist for inhalation 30 days #4 grams (Combivent Respimat) gabapentin 300 mg capsule 300 mg PO TID pain 30 days #90 caps 03/07/24 diclofenac sodium 1 % topical gel 2 g topical QID 30 days #100 grams 03/22/24 (Aleve (diclofenac)) dulaglutide 0.75 mg/0.5 mL 0.75 mg (0.5 mL) subcut QWEEK 90 03/30/24 subcutaneous pen injector days #6.5 mL (Trulicity) lisinopril 20 mg tablet 20 mg PO DAILY 30 days #30 tabs 03/30/24 nabumetone 750 mg tablet 750 mg PO BID 30 days #60 tabs 03/30/24 lidocaine 5 % topical patch 1 patch topical DAILY #30 ea 04/07/24 oxycodone 5 mg tablet 5 mg PO Q8H PRN pain #9 tabs 04/07/24 amlodipine 2.5 mg tablet 2.5 mg PO DAILY #14 tabs 04/17/24 Allergies Allergy/AdvReac Type Severity Reaction Status Date / Time cyclobenzaprine Allergy Intermediate Dizziness Verified 04/17/24 11:48 [From Flexeril] orphenadrine [From Norflex] Allergy Intermediate Dizziness Verified 04/17/24 11:48 sarilumab [From Kevzara] Allergy Intermediate Rash Verified 04/17/24 11:48 Review of Systems 2 Review of Systems: all other systems are reviewed and are negative Constitutional: Reports as per HPI and Reports no additional constitutional complaints Eyes: Reports as per HPI and Reports no additional eye complaints Reports system reviewed and no additional complaints, except as documented Cardiovascular: Reports as per HPI and Reports no additional cardiovascular complaints Respiratory: Reports as per HPI and Reports no additional respiratory complaints Gastrointestinal: Reports as per HPI and Reports no additional gastrointestinal complaints Genitourinary: Reports no additional female genitourinary complaints Musculoskeletal: Reports no additional musculoskeletal complaints Skin/Breast: Reports system reviewed and no additional complaints, except as docu Psychiatric: Reports no additional psychiatric complaints Endocrine: Reports no additional endocrine complaints Hematologic/Lymphatic: Reports no additional hematologic/lymphatic complaints Allergic/Immunologic: Reports no additional allergic/immunologic complaints Reports system reviewed and no additional complaints, except as documented and Reports Abnormal speech present [facility] Past Medical History Medical History Morbid obesity with BMI of 45.0-49.9, adult Sacroiliitis Rheumatic fever TIA (transient ischemic attack) Right-sided back pain History of COVID-19 Asthma exacerbation Hospital discharge follow-up Sacroiliitis Renal calculi Costovertebral angle tenderness Burning with urination Disc degeneration, lumbar Spondylosis of cervical spine Spondylosis of lumbar spine Pleuritic pain Restrictive lung disease Morbid obesity Asthma Dyslipidemia Essential hypertension Vaginal modesta Seropositive rheumatoid arthritis Rheumatoid arthritis Diabetes Surgical History History of cholecystectomy Hx of colonoscopy (09/01/19) History of surgery on wrist Family History Family History Father Diabetes mellitus Myocardial infarction Hypertension CVD (cardiovascular disease) Mother Diabetes mellitus CVD (cardiovascular disease) Sister No problems noted. Son No problems noted. Son No problems noted. Son No problems noted. Daughter Thyroiditis Daughter No problems noted. Daughter No problems noted. Daughter No problems noted. Daughter No problems noted. Social History Social History Housing: Apartment Unable to assess alcohol history related to: Unknown Alcohol intake: unknown Patient Tobacco Use Status: Never used Tobacco Smoked in Last 30 Days: No e-Cigarette/Vaping Use: Never Used Second Hand Smoke Exposure: No Use of substances other than those prescribed or required for medical reasons: No Advance Directives: No Advance Directives Information Provided: Yes Do you have a plan to hurt others: No Plan Patient : No service: No Current occupational status: disabled Sexual orientation: Straight/Heterosexual Gender identity: Female Cognitive needs: No Hearing needs: No Vision needs: No Physical Exam ED Vital Signs: Vital Signs - 24 hr 04/17/24 11:44 04/17/24 15:16 04/17/24 15:35 Temperature 98.7 F 97.8 F Pulse Rate 75 64 Respiratory Rate 18 14 Blood Pressure 214/82 H 164/70 H 164/70 H Pulse Oximetry 99 100 Oxygen Delivery Method Room Air Room Air 04/17/24 18:08 Temperature 97.9 F Pulse Rate 61 Respiratory Rate 14 Blood Pressure 183/87 H Pulse Oximetry 99 Oxygen Delivery Method Room Air BMI result Body Mass Index 40.4 Vital signs have been reviewed and appear to be correct. Blood pressure elevated. Heart rate normal. Respiratory rate normal. Temperature normal. Oxygen saturation normal. Appearance: Alert. Oriented X3. No acute distress. Head: Normal external exam. Normocephalic. Atraumatic. No Perera signs noted. No raccoon eyes noted Eyes: PERRLA. EOMI. Conjunctiva and sclera normal. Eyelids normal. ENT: TM's Normal. Pharynx normal. Uvula midline. Moist mucous membranes. No trismus noted. No drooling noted. No muffled voice noted. Neck: Normal inspection. Neck supple. FROM. No adenopathy. Thyroid Normal. No meningeal signs. No neck mass noted. CVS: Normal heart rate and rhythm. Heart sound normal. No murmurs noted. Pulses normal throughout. Respiratory: No respiratory distress. Painless inspiration. Breath sounds normal. No wheezes/rales/rhonchi noted. Chest nontender. No accessory muscle usage noted or decreased air movement noted. Abdomen: Soft and nontender. Bowel sounds normal in all 4 quadrants. No distention noted. No organomegaly noted. No visible injury noted. Back: No CVA tenderness. Full range of motion noted. Skin: Skin warm and dry. Normal skin color. Normal skin turgor. No rashes/lesions/lacerations noted. Extremities: No lower extremity edema. Extremities exhibit normal range of motion. Extremities nontender. Neuro: Oriented X 3. Cranial nerve exam: II-XII are grossly intact No motor deficit. No sensory deficit. Reflexes normal. Course Reevaluation(s) Reevaluation #1: right abdominal pain/right flank pain, CT abdomen and pelvis reveals no acute intra-abdominal pathology, UA reveals no UTI. patient was instructed to take Tylenol 500 mg tablet every 6 hours if needed for pain if the pain persist or not improve she can follow-up with PCP. Elevated blood pressure patient is taking lisinopril will add 2.5 mg of amlodipine patient was instructed to take records of blood pressure readings and discuss with her PCP to consider if she needs to add another medication for blood pressure. Time: 18:35 Medications Administered Discontinued Medications Generic Name Dose Route Start Last Admin Trade Name Freq PRN Reason Stop Dose Admin Amlodipine Besylate 5 mg 04/17/24 15:12 04/17/24 15:35 Amlodipine Besylate 5 Mg Tablet PO 04/17/24 15:13 5 mg ONCE ONE Administration Protocol Medical Decision Making Differential Diagnosis Differential Diagnoses: The differential diagnosis associated with the presentation includes ( Acute appendicitis, colitis, diverticulitis, acute pancreatitis, electrolyte derangement, severe anemia, UTI, pyelonephritis, obstructive kidney stones, uncontrolled essential hypertension.) Admission/Observation Consideration of admission/observation: Escalation of care including admission/observation considered Lab Data MDM Lab Attestation statement: I reviewed the patient's lab results. 04/17/24 11:57 04/17/24 11:57 Labs: Lab Results 04/17/24 Range/Units 11:57 WBC 6.9 (4.8-10.8) X10*3/uL RBC 4.47 (4.20-5.50) X10*6/uL Hgb 14.3 (12.0-16.0) g/dl Hct 41.3 (37.0-47.0) % MCV 92.4 (80.0-98.0) fL MCH 32.0 (27.0-33.0) pg MCHC 34.6 (31.0-35.0) g/dl RDW 11.7 (11.0-16.0) % Plt Count 175 (160-400) X10*3/uL MPV 11.5 (9.4-12.3) fL Immature Gran % (Auto) 0.6 H (0.0-0.4) % Neut % (Auto) 56.7 (45-73) % Lymph % (Auto) 28.6 (20-40) % [place] % (Auto) 6.1 (2-11) % Eos % (Auto) 7.4 H (0-4) % Baso % (Auto) 0.6 (0-2) % Lymph # (Auto) 2.0 (1.2-4.9) X10*3/uL [place] # (Auto) 0.4 (0.1-1.2) X10*3/uL Eos # (Auto) 0.5 H (0.0-0.4) X10*3/uL Baso # (Auto) 0.0 (0.0-0.2) X10*3/uL Abs Immat Gran (auto) 0.04 H (0.00-0.03) X10*3/uL Absolute Neuts (auto) 3.9 (2.0-8.3) x10*3/uL Absolute Nucleated RBC 0.000 (0.0-0.012) X10*3/uL Nucleated RBC % (auto) 0.0 (0.0-0.2) /100WBC Sodium 142 (135-145) mmol/L Potassium 3.6 (3.3-5.1) mmol/L Chloride 106 (96-108) mmol/L Carbon Dioxide 28 (22-29) mmol/L Anion Gap 12 (12-20) BUN 12 (9-16) mg/dL Creatinine 0.79 (0.5-1.4) mg/dL Estim Creat Clear Calc 76.6 Estimated GFR > 60 Random Glucose 181 H (60-115) mg/dL Calcium 9.2 (8.4-10.2) mg/dL Total Bilirubin 0.6 (0.0-1.0) mg/dL AST 22 (5-31) U/L ALT 21 (0-31) U/L Alkaline Phosphatase 107 (39-117) U/L Total Protein 7.1 (6.5-8.0) g/dL Albumin 3.9 (3.5-5.0) g/dL Urine Color Yellow Urine Appearance Clear Urine pH 8.5 (5.0-9.0) Ur Specific [place] 1.010 (1.005-1.025) Urine Protein Negative (Neg-Trace) mg/dL Urine Glucose (UA) 100 H (Negative) mg/dL Urine Ketones Negative (Negative) mg/dL Urine Blood Negative (Negative) Urine Nitrite Negative (Negative) Ur Leukocyte Esterase Negative (Negative) Independent Interpretation I performed an independent interpretation of an: CT Scan ( abdomen pelvis:No acute abnormality CT scan abdomen pelvis. ) Radiology Impression Discussion of test interpretation with radiology: I have reviewed the radiologist's reading. Chronic Conditions Patient?s care impacted by: Hypertension Discharge Plan Discharge Clinical Impression: Essential hypertension, Abdominal pain Patient Disposition: Home, Self-Care Instructions: Abdominal Pain (ED), Hypertension (ED) Prescriptions: New amlodipine 2.5 mg tablet 2.5 mg PO DAILY Qty: 14 0RF No Action albuterol sulfate 90 mcg/actuation HFA aerosol inhaler 2 inh PO Q4H PRN (Reason: shortness of breath or wheezing) Qty: 8.5 1RF (DME) FreeStyle Lite Strips Strip See Rx Instructions .ROUTE .MEDSUPPLY Qty: 50 11RF Rx Instructions: Use 1 test strip once a day (DME) blood-glucose meter [FreeStyle Lite Meter] Kit See Rx Instructions .ROUTE .MEDSUPPLY Qty: 1 0RF Rx Instructions: E11.9 ONCE A DAY (DME) lancets [FreeStyle Lancets] 28 gauge misc See Rx Instructions .ROUTE .MEDSUPPLY Qty: 100 11RF Rx Instructions: Use 1 lancet once a day as needed albuterol sulfate 2.5 mg /3 mL (0.083 %) solution for nebulization 2.5 mg inhalation Q4-6H PRN (Reason: shortness of breath or wheezing) 30 Days Qty: 90 2RF Orencia ClickJect 125 mg/mL auto-injector 125 mg subcut QWEEK Qty: 4 2RF (DME) blood pressure monitor Kit See Rx Instructions .Route Qty: 1 0RF Rx Instructions: As directed docusate sodium [Col-Rite] 100 mg capsule 100 mg PO BID Qty: 30 0RF lidocaine 5 % adhesive patch,medicated 1 patch topical DAILY Qty: 30 0RF Rx Instructions: leave on most painful area for up to 12 hrs oxycodone 5 mg tablet 5 mg PO Q8H PRN (Reason: pain) Qty: 9 0RF Rx Instructions: Partial Fill upon patient request. diclofenac sodium [Aleve (diclofenac)] 1 % gel 2 g topical QID 30 Days Qty: 100 0RF Rx Instructions: apply to single elbow, wrist or hand; for hand includes palm/fingers/back of hand lisinopril 20 mg tablet 20 mg PO DAILY 30 Days Qty: 30 6RF nabumetone 750 mg tablet 750 mg PO BID 30 Days Qty: 60 6RF Trulicity 0.75 mg/0.5 mL pen injector 0.75 mg subcut QWEEK 90 Days Qty: 6.5 0RF rosuvastatin 10 mg tablet 10 mg PO DAILY 90 Days Qty: 90 1RF metformin 1,000 mg tablet 1,000 mg PO BID 90 Days Qty: 180 1RF Combivent Respimat 20-100 mcg/actuation mist 2 puff inhalation Q4H 30 Days Qty: 4 3RF fluticasone propionate 220 mcg/actuation HFA aerosol inhaler 2 puff inhalation BID 30 Days Qty: 12 5RF Rx Instructions: administer with spacer gabapentin 300 mg capsule 300 mg PO TID 30 Days Qty: 90 0RF (DME) cock up splint See Rx Instructions .Route .MEDSUPPLY Qty: 1 0RF Rx Instructions: wear on the right wrist at night Print Language: Armenian
[2024-04-17 15:16] VITALS: BP 164/70; PULSE 64; RESP 14; TEMP 36.6; O2SAT 100
[2024-04-17 15:35] VITALS: BP 164/70
[2024-04-17] MEDS: amLODIPine Besylate 5 MG TABLET PO (15:35)
[2024-04-17 18:08] VITALS: BP 183/87; PULSE 61; RESP 14; TEMP 36.6; O2SAT 99
[2024-04-17 18:48] VITALS: BP 183/87; PULSE 61; RESP 14; TEMP 36.6; O2SAT 99
== END 2024-04-17 18:48 | disposition home or self-care (01) ==
PROVIDERS: Emergency Provider Emergency Medicine; PCP Internal Medicine
DX: R10.31 Right lower quadrant pain (principal); R51.9 Headache, unspecified; I10 Essential (primary) hypertension; Z79.899 Other long term (current) drug therapy
CPT/HCPCS: 36415; 74176; 80053; 81003; 85025; 99284

== ENCOUNTER 2024-04-20 16:18 | Outpatient (AMB) | payer OTHER, SELFPAY ==
[2024-04-20 16:29] VITALS: BP 158/72; PULSE 86; O2SAT 98; BMI 40.1
--- NOTE | 2024-04-20 16:29 | MHC.PC.OV ---
Vital Signs 04/20/24 16:29 04/20/24 16:52 Height 5 ft 1 in Weight 212 lb BMI 40.1 BP 158/72 H 160/70 H Blood Pressure Location Lt brachial Lt brachial Position Sitting Sitting Pulse 86 Pulse Source Pulse Oximeter Pulse Oximetry (%) 98 Oxygen Delivery Method Room Air Intake Visit Reasons: [facility] [place] Abdominal Pain Operations Asst Required: No Accompanied by: Self / Same As Patient Allergies cyclobenzaprine [From Flexeril] Allergy (Intermediate, Verified 04/20/24 16:34) Dizziness orphenadrine [From Norflex] Allergy (Intermediate, Verified 04/20/24 16:34) Dizziness sarilumab [From Kevzara] Allergy (Intermediate, Verified 04/20/24 16:34) Rash Medication List - Last Reconciled 04/20/24 by Aniyah Friend MD albuterol sulfate 90 mcg/actuation 2 inhalations PO Q4H PRN albuterol sulfate 2.5 mg (3 mL) inhalation Q4-6H PRN 30 days amlodipine 2.5 mg PO DAILY blood pressure monitor As directed blood sugar diagnostic (FreeStyle Lite Strips) Use 1 test strip once a day blood-glucose meter (FreeStyle Lite Meter kit) E11.9 ONCE A DAY [cock up splint wear on the right wrist at night ] diclofenac sodium 1% (Aleve (diclofenac)) 2 grams topical QID 30 days docusate sodium (Col-Rite) 100 mg PO BID dulaglutide (Trulicity) 0.75 mg (0.5 mL) subcut QWEEK 90 days fluticasone propionate 220 mcg/actuation 2 puffs inhalation BID 30 days gabapentin 300 mg PO TID 30 days ipratropium-albuterol 20-100 mcg/actuation (Combivent Respimat) 2 puffs inhalation Q4H 30 days lancets (FreeStyle Lancets) Use 1 lancet once a day as needed lidocaine 5% 1 patch topical DAILY lisinopril 20 mg PO DAILY 30 days metformin 1,000 mg PO BID 90 days nabumetone 750 mg PO BID 30 days Orencia ClickJect (abatacept) 125 mg subcut QWEEK NS oxycodone 5 mg PO Q8H PRN rosuvastatin 10 mg PO DAILY 90 days Tobacco use date assessed: 10/25/23 Fall risk assessment: No Falls in past year Last assessed Fall Risk: 04/20/24 Dental Screening Dental Screen Date: 03/22/24 HPI HPI Comments History of Present Illness Details This is a 64-year-old female with diabetes mellitus type 2, hypertension, seropositive rheumatoid arthritis, morbid obesity and lacunar infarction that comes today as ER discharge follow-up due to elevated blood pressure and headaches while doing physical therapy. Amlodipine 2.5 mg was added but she has not started yet. Blood pressure elevated today and will be recheck in 3 weeks by nurse navigator. She also complains of a constant right upper quadrant abdominal pain that started being in the back and radiate to the front and it is a constant pain for the past 2-[address] scan of abdomen showed no significant abnormality. I will order MRI of the abdomen and start her on Lyrica. Has even try opiates with no significant relief. She is morbidly obese with a BMI of 40.1 and was advised to do diet and exercise. Rheumatoid arthritis is follow by Rheumatology. Last A1c in February was 7.4% and was advised to do diet and exercise. Has not received Trulicity at and I will resend it. [facility] Medical History (Updated 04/20/24 @ 16:42 by Aniyah Friend MD) Morbid obesity with BMI of 45.0-49.9, adult Sacroiliitis Rheumatic fever TIA (transient ischemic attack) Right-sided back pain History of COVID-19 Asthma exacerbation Hospital discharge follow-up Sacroiliitis Renal calculi Costovertebral angle tenderness Burning with urination Disc degeneration, lumbar Spondylosis of cervical spine Spondylosis of lumbar spine Pleuritic pain Restrictive lung disease Morbid obesity Asthma Dyslipidemia Essential hypertension Vaginal modesta Seropositive rheumatoid arthritis Rheumatoid arthritis Diabetes Surgical History History of cholecystectomy Hx of colonoscopy (09/01/19) History of surgery on wrist Family History Father Diabetes mellitus Myocardial infarction Hypertension CVD (cardiovascular disease) Mother Diabetes mellitus CVD (cardiovascular disease) Sister No problems noted. Son No problems noted. Son No problems noted. Son No problems noted. Daughter Thyroiditis Daughter No problems noted. Daughter No problems noted. Daughter No problems noted. Daughter No problems noted. Social History Housing: Apartment Unable to assess alcohol history related to: Unknown Alcohol intake: unknown Patient Tobacco Use Status: Never used Tobacco e-Cigarette/Vaping Use: Never Used Second Hand Smoke Exposure: No service: No Current occupational status: disabled Sexual orientation: Straight/Heterosexual Gender identity: Female Cognitive needs: No Hearing needs: No Vision needs: No Female Reproductive History Menstrual Age of Menarche: 11 Date of menopause: 01/22/10 Questionnaire Thrive Questionnaire Date Thrive assessed: 10/25/23 SONA-7 AMB Questionnaire SONA-7 Date SONA - 7 assessed: 10/25/23 Source: Developed by Drs. Spencer Gonzalez, Anamaria Bartlett, Clayton Azar and colleagues, with an educational anna from [employer]. Review of Systems Const All systems reviewed & are unremarkable except as noted in HPI and below Reports headache(s) ENT Reports headache(s) Card Denies chest pain at rest, Denies chest pain with activity, Denies edema, Denies irregular heart rhythm, Denies claudication, Denies dyspnea, Denies dyspnea on exertion, Denies orthopnea, Denies paroxysmal nocturnal dyspnea and Denies slow heart rate Resp Denies cough, Denies dyspnea and Denies dyspnea on exertion GI Reports abdominal pain, Denies change in bowel habits, Reports constipation, Denies excessive flatus, Denies nausea and Denies vomiting Neuro Reports headache(s) Physical exam (Primary Care) Vital Signs: Last Vital Signs Pulse 86 04/20/24 16:29 BP 160/70 H 04/20/24 16:52 Pulse Ox 98 04/20/24 16:29 Oxygen Delivery Method Room Air 04/20/24 16:29 BMI result Body Mass Index 40.1 BMI Assessment/Plan discussion: High BMI High, discussed plan: lifestyle, weight reduction, dietary and physical activity Tobacco/Smoking Status: Tobacco use Status Tobacco use date assessed 10/25/23 04/20/24 16:30 Patient Tobacco Use Status Never used Tobacco 04/20/24 16:30 e-Cigarette/Vaping Use Never Used 04/20/24 16:30 Thrive Assessment: Date of Thrive Assessment Date Thrive assessed 10/25/23 04/20/24 16:30 Const General: cooperative Nutritional Appearance: obese Resp Effort & Inspection: normal respiratory effort Auscultation: clear to auscultation bilaterally Cardio Jugular venous distension: no JVD Rate: regular rate Rhythm: regular rhythm Heart sounds: S1 normal heart sound present and S2 normal heart sound present GI Inspection: Yes normal to inspection Palpation (GI): Soft to palpation and Tenderness to palpation present (GI) in the RUQ Auscultation: normal bowel sounds Extrem General: Yes full ROM Assessment and Plan Assessment & Plan (1) Morbid obesity with BMI of 40.0-44.9, adult: Code(s): E66.01 - Morbid (severe) obesity due to excess calories; Z68.41 - Body mass index [BMI] 40.0-44.9, adult Plan: Start diet and exercise. BMI goal is less than 30. (2) Right upper quadrant abdominal pain: Code(s): R10.11 - Right upper quadrant pain Plan: MRI of the abdomen ordered. (3) Lacunar infarction: Code(s): I63.81 - Other cerebral infarction due to occlusion or stenosis of small artery Plan: Patient is blood pressure control. MRI of the brain ordered due to constant headaches and as per advised by Radiology on her CT of the head. (4) Seropositive rheumatoid arthritis: Comment: ++RF+++CCP dx in her 40s Humira:08/29 - 03/30 -active disease on exam Enbrel:04/29-08/30 - active disease on exam Xeljanz:08/30-12/29- active disease on exam Kevzara: 01/2021- stopped due to rash Orencia: 01/2021 - present effective MTX in the past - transaminitis Code(s): M05.9 - Rheumatoid arthritis with rheumatoid factor, unspecified Plan: Continue Orencia. Follow-up with rheumatology. 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 A1c goal is equal or less than 7%. (6) Essential hypertension: Code(s): I10 - Essential (primary) hypertension Plan: Continue lisinopril. Start amlodipine. Blood pressure goal is equal or less than 130/80. Orders: Orders MR head/brain wo con 04/20/24 I63.81 - Other cerebral infarction due to occlusion or stenosis of small artery MR abdomen wo con 04/20/24 R10.11 - Right upper quadrant pain Medications: New sennosides (senna) 8.6 mg PO BEDTIME 7 days PRN 7 tabs 0RF constipation pregabalin 50 mg PO BID 5 days 10 caps 0RF Changed From amlodipine 2.5 mg PO DAILY 14 tabs 0RF To amlodipine 2.5 mg PO DAILY 90 days 90 tabs 0RF Refilled dulaglutide (Trulicity) 0.75 mg (0.5 mL) subcut QWEEK 90 days 6.5 mL 0RF E11.65 - Type 2 diabetes mellitus with hyperglycemia Coding Level of Care Code Est Pt Level 4 (54810) Complex EM visit Add On G2211 Diagnoses Morbid obesity with BMI of 40.0-44.9, adult E66.01; Z68.41 Right upper quadrant abdominal pain R10.11 Lacunar infarction I63.81 Seropositive rheumatoid arthritis M05.9 Type 2 diabetes mellitus with hyperglycemia, without long-term current use of insulin E11.65 Diabetes mellitus type: type 2 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
[2024-04-20 16:52] VITALS: BP 160/70
== END 2024-04-20 16:48 | disposition home or self-care (01) ==
PROVIDERS: PCP Internal Medicine; Visit Provider Internal Medicine
DX: E11.65 Type 2 diabetes mellitus with hyperglycemia (principal); E66.01 Morbid (severe) obesity due to excess calories; Z68.41 Body mass index [BMI] 40.0-44.9, adult; I63.81 Other cerebral infarction due to occlusion or stenosis of small artery; M05.9 Rheumatoid arthritis with rheumatoid factor, unspecified; R10.11 Right upper quadrant pain; I10 Essential (primary) hypertension
CPT/HCPCS: 99214; G2211

== ENCOUNTER 2024-04-23 00:30 | Emergency (ER) | payer OTHER, SELFPAY ==
[2024-04-23] VITALS (7 sets, daily range): BP systolic 125–180; BP diastolic 65–91; PULSE 57–63; RESP 16–18; TEMP 36.2–36.6; O2SAT 96–100; BMI 36.4
--- NOTE | 2024-04-23 | ECG_ITS ---
Test Reason : headache Blood Pressure : / mmHG Vent. Rate : 060 BPM Atrial Rate : 060 BPM P-R Int : 196 ms QRS Dur : 098 ms QT Int : 414 ms P-R-T Axes : 060 004 040 degrees QTc Int : 414 ms Normal sinus rhythm Minimal voltage criteria for LVH, may be normal variant ( R in aVL ) Borderline ECG When compared with ECG of 28-MAR-2024 14:46, No significant change was found Referred By: Generic ED Physician Electronically Signed By:Charlie Peters
--- NOTE | ~2024-04-23 | XR_ITS ---
EXAMINATION: XR RIBS, RIGHT CLINICAL INFORMATION: Pain. COMPARISON: None available. TECHNIQUE: A frontal chest and 3 views views of the right ribs were obtained. FINDINGS: Lungs are clear. No consolidation, pneumothorax, or pleural effusion. The cardiomediastinal silhouette and pulmonary vasculature are normal. Osseous structures are unremarkable. Ribs are intact. No fractures are identified. XR/XR ribs RT min 3V w CXR1V IMPRESSION: Unremarkable examination.
[2024-04-23 01:09] LABS: MANUAL DIFF FLAG NO
[2024-04-23 01:10] LABS: Basophils Absolute Auto 0.1 X10*3/uL (0.0-0.2); Basophils Percent Auto 0.7 % (0-2); Eosinophils Absolute Auto 0.7 X10*3/uL (0.0-0.4); Eosinophils Percent Auto 8.6 % (0-4); Hematocrit 38.4 % (37.0-47.0); Hemoglobin 13.5 g/dl (12.0-16.0); Imm Gran Abs Auto 0.04 X10*3/uL (0.00-0.03); Imm Gran Pct Auto 0.5 % (0.0-0.4); Lymphocytes Absolute Auto 2.7 X10*3/uL (1.2-4.9); Lymphocytes Percent Auto 35.7 % (20-40); Mean Corpuscular HGB Conc 35.2 g/dl (31.0-35.0); Mean Corpuscular Hemoglobin 31.8 pg (27.0-33.0); Mean Corpuscular Volume 90.4 fL (80.0-98.0); Mean Platelet Volume 11.2 fL (9.4-12.3); Monocytes Absolute Auto 0.5 X10*3/uL (0.1-1.2); Monocytes Percent Auto 6.1 % (2-11); Neutrophils Absolute Auto 3.7 x10*3/uL (2.0-8.3); Neutrophils Percent Auto 48.4 % (45-73); Platelet Count 160 X10*3/uL (160-400); Red Blood Count 4.25 X10*6/uL (4.20-5.50); Red Cell Distribution Width 11.7 % (11.0-16.0); White Blood Count 7.6 X10*3/uL (4.8-10.8)
--- NOTE | 2024-04-23 01:11 | MHC.EDTECH ---
PATIENT EKG TAKEN AND WAS READ BY PROVIDER ,BLOOD DRAWN AND SENT TO LAB .
[2024-04-23 01:24] LABS: Alanine Aminotransferase 23 U/L (0-31); Albumin Level 3.7 g/dL (3.5-5.0); Alkaline Phosphatase 99 U/L (39-117); Anion Gap 10 (12-20); Aspartate Amino Transferase 22 U/L (5-31); Bilirubin Total 0.5 mg/dL (0.0-1.0); Blood Urea Nitrogen 12 mg/dL (9-16); Calcium 9.4 mg/dL (8.4-10.2); Carbon Dioxide 27 mmol/L (22-29); Chloride 108 mmol/L (96-108); Creatinine Clr Calc Pharmacy 86.4; Estimated Glomerular Filt Rate > 60; Glucose Random 206 mg/dL (60-115); Potassium 3.9 mmol/L (3.3-5.1); Sodium 141 mmol/L (135-145); Total Protein 6.7 g/dL (6.5-8.0)
--- NOTE | 2024-04-23 04:02 | ED.GENADULT ---
HPI - General Adult General Chief complaint: General Medical Stated complaint: high bp Time Seen by Provider: 04/23/24 01:36 Source: patient Mode of arrival: ambulatory Limitations: no limitations History of Present Illness ED Provider: Dr. Alejandra Interiano HPI narrative: Patient comes to the emergency room complaining of high blood pressure, dizziness and headache. Patient states that she has been having this problem for several months. Patient describes dizziness as intermittent room spinning. Blood present at this time. Also, patient complaining of right rib pain for several weeks. Patient denies any trauma. Related Data Previous Rx's ?Medication ?Instructions ?Recorded albuterol sulfate 90 mcg/actuation 2 inh PO Q4H PRN shortness of 08/13/20 aerosol inhaler breath or wheezing #8.5 grams docusate sodium 100 mg capsule 100 mg PO BID #30 caps 12/07/22 (Col-Rite) blood sugar diagnostic (FreeStyle #50 ea 02/10/23 Lite Strips) blood-glucose meter (FreeStyle #1 ea 02/10/23 Lite Meter kit) lancets 28 gauge (FreeStyle #100 ea 02/10/23 Lancets) cock up splint #1 ea 03/03/23 albuterol sulfate 2.5 mg/3 mL 2.5 mg (3 mL) inhalation Q4-6H PRN 06/29/23 (0.083 %) solution for nebulization shortness of breath or wheezing 30 days #90 mL metformin 1,000 mg tablet 1,000 mg PO BID 90 days #180 tabs 06/29/23 Orencia ClickJect 125 mg/mL 125 mg subcut QWEEK #4 mL 02/07/24 subcutaneous auto-injector (abatacept) blood pressure monitor #1 ea 02/07/24 fluticasone propionate 220 2 puff inhalation BID asthma 30 02/23/24 mcg/actuation HFA aerosol inhaler days #12 grams ipratropium 20 mcg-albuterol 100 2 puff inhalation Q4H ASTHMA/COUGH 02/23/24 mcg/actuation mist for inhalation 30 days #4 grams (Combivent Respimat) gabapentin 300 mg capsule 300 mg PO TID pain 30 days #90 caps 03/07/24 lisinopril 20 mg tablet 20 mg PO DAILY 30 days #30 tabs 03/30/24 nabumetone 750 mg tablet 750 mg PO BID 30 days #60 tabs 03/30/24 lidocaine 5 % topical patch 1 patch topical DAILY #30 ea 04/07/24 oxycodone 5 mg tablet 5 mg PO Q8H PRN pain #9 tabs 04/07/24 diclofenac sodium 1 % topical gel 2 g topical QID 30 days #100 grams 04/18/24 (Aleve (diclofenac)) amlodipine 2.5 mg tablet 2.5 mg PO DAILY 90 days #90 tabs 04/20/24 dulaglutide 0.75 mg/0.5 mL 0.75 mg (0.5 mL) subcut QWEEK 90 04/20/24 subcutaneous pen injector days #6.5 mL (Trulicity) pregabalin 50 mg capsule 50 mg PO BID 5 days #10 caps 04/20/24 rosuvastatin 10 mg tablet 10 mg PO DAILY 90 days #90 tabs 04/20/24 sennosides 8.6 mg tablet (senna) 8.6 mg PO BEDTIME PRN constipation 04/20/24 7 days #7 tabs ibuprofen 600 mg tablet 600 mg PO Q8H PRN pain #14 tabs 04/23/24 lisinopril 40 mg tablet 40 mg PO DAILY #90 tabs 04/23/24 meclizine 50 mg tablet 50 mg PO DAILY PRN motion sickness 04/23/24 #14 tabs Allergies Allergy/AdvReac Type Severity Reaction Status Date / Time cyclobenzaprine Allergy Intermediate Dizziness Verified 04/23/24 00:44 [From Flexeril] orphenadrine [From Norflex] Allergy Intermediate Dizziness Verified 04/23/24 00:44 sarilumab [From Kevzara] Allergy Intermediate Rash Verified 04/23/24 00:44 Review of Systems Review of Systems: Constitutional : No Weight loss, No Fever, No Chills, No Night Sweats, No Fatigue, No Malaise ENT/Mouth : No Hearing loss, No Ear Pain, No Nasal Congestion, No Sinus Pain, No Hoarseness, No sore throat, No Rhinorrhea, No Swallowing Difficulty Eyes: No Eye Pain, No Swelling, No Redness, No Foreign Body, No Discharge, No Vision Changes Cardiovascular : No Chest Pain, No SOB, No Dyspnea on Exertion, No Orthopnea, No Edema, No Palpitations Respiratory : No Cough, No Sputum, No Wheezing, No Smoke Exposure, No Dyspnea Gastrointestinal : No Nausea, No Vomiting, No Diarrhea, No Constipation, No abdominal Pain, No Hematochezia, No Melena Genitourinary : no irregular bleeding, No Dysuria, No Urinary Frequency, No Hematuria, No Urinary Incontinence, No Urgency, No Flank Pain, No Urinary Flow Changes, No Hesitancy Musculoskeletal : Complaining of right-sided rib pain, No joint pain, No Myalgias, No Joint Swelling Skin : No Skin Lesions, No rash Neuro : No Weakness, No Numbness, No Paresthesias, No Loss of Consciousness, complaining of headache and dizziness/room spinning Psych : No Anxiety/Panic, No Depression, No SI/HI/AH/VH, No Social Issues, Heme/Lymph: No Bruising, No Bleeding,No Lymphadenopathy Endocrine : No Polyuria, No Polydipsia, No Temperature Intolerance PMFSH Past Medical History Medical History Morbid obesity with BMI of 45.0-49.9, adult Sacroiliitis Rheumatic fever TIA (transient ischemic attack) Right-sided back pain History of COVID-19 Asthma exacerbation Hospital discharge follow-up Sacroiliitis Renal calculi Costovertebral angle tenderness Burning with urination Disc degeneration, lumbar Spondylosis of cervical spine Spondylosis of lumbar spine Pleuritic pain Restrictive lung disease Morbid obesity Asthma Dyslipidemia Essential hypertension Vaginal modesta Seropositive rheumatoid arthritis Rheumatoid arthritis Diabetes Surgical History History of cholecystectomy Hx of colonoscopy (09/01/19) History of surgery on wrist Family History Family History Father Diabetes mellitus Myocardial infarction Hypertension CVD (cardiovascular disease) Mother Diabetes mellitus CVD (cardiovascular disease) Sister No problems noted. Son No problems noted. Son No problems noted. Son No problems noted. Daughter Thyroiditis Daughter No problems noted. Daughter No problems noted. Daughter No problems noted. Daughter No problems noted. Social History Social History Housing: Apartment Unable to assess alcohol history related to: Unknown Alcohol intake: unknown Patient Tobacco Use Status: Never used Tobacco e-Cigarette/Vaping Use: Never Used Second Hand Smoke Exposure: No Advance Directives: No Advance Directives Information Provided: No Do you have a plan to hurt others: No Plan service: No Current occupational status: disabled Sexual orientation: Straight/Heterosexual Gender identity: Female Cognitive needs: No Hearing needs: No Vision needs: No Physical Exam ED Vital Signs: Vital Signs - 24 hr 04/23/24 00:41 04/23/24 02:11 04/23/24 04:00 Temperature 97.8 F 98 F 97.2 F Pulse Rate 63 57 58 Respiratory Rate 18 17 16 Blood Pressure 141/84 H 125/65 149/71 H Pulse Oximetry 99 96 100 Oxygen Delivery Method Room Air Room Air Room Air 04/23/24 04:29 04/23/24 04:30 04/23/24 04:34 Temperature Pulse Rate 57 61 63 Respiratory Rate Blood Pressure 139/70 179/91 H 180/80 H Pulse Oximetry Oxygen Delivery Method BMI result Body Mass Index 36.4 Const Other: Appearance: Alert. Oriented X3. No acute distress. Well-appearing Eyes: Pupils equal, round and reactive to light. ENT: Pharynx normal. Neck: Normal inspection. Neck supple. No lymph nodes noted. No crepitus CVS: Normal heart rate and rhythm. Pulses normal. Normal S1 and S2 Respiratory: No respiratory distress. Breath sounds normal. No Wheezing. No rales Abdomen: Soft and nontender. No rigidity. No distention. Musculoskeletal: Reproducible pain to palpation over the ribs under the axilla on the right Skin: Skin warm and dry. Normal skin color. Normal skin turgor. Extremities: No lower extremity edema. No Lacerations. No Rash Neuro: Oriented X 3. No motor deficit. No sensory deficit. Moving all extremities. No slurred speech. CN 2 through 12 grossly intact Psych: calm, cooperative, normal affect Medications Administered Discontinued Medications Generic Name Dose Route Start Last Admin Trade Name Freq PRN Reason Stop Dose Admin Acetaminophen 650 mg 04/23/24 04:01 04/23/24 04:13 Acetaminophen 325 Mg Tablet PO 04/23/24 04:02 650 mg ONCE ONE Administration Meclizine HCl 50 mg 04/23/24 04:00 04/23/24 04:13 Meclizine Hcl 25 Mg Tablet PO 04/23/24 04:01 50 mg ONCE ONE Administration Medical Decision Making Medical Decision Making [facility] Narrative: -my interpretation of labs, normal hematology and chemistry, normal LFTs, troponin negative -patient was given a dose of meclizine -patient has good truncal stability, normal gait. No symptoms at this time. It is unlikely that the patient's symptoms are secondary to a posterior CVA or TIA -orthostatic vitals were negative -patient's blood pressure 149/71. Patient takes lisinopril 20 mg, discussed with the patient to increase her dose to 40 mg daily and have close follow-up with her primary care physician. -rib x-ray negative Differential Diagnosis Differential Diagnoses: The differential diagnosis associated with the presentation includes (BPPV) Admission/Observation Consideration of admission/observation: Escalation of care including admission/observation considered (Given patient's initial presentation, observation was considered) Lab Data [facility] Lab Attestation statement: I reviewed the patient's lab results. 04/23/24 01:04 04/23/24 01:05 Labs: Lab Results 04/23/24 04/23/24 Range/Units 01:04 01:05 WBC 7.6 (4.8-10.8) X10*3/uL RBC 4.25 (4.20-5.50) X10*6/uL Hgb 13.5 (12.0-16.0) g/dl Hct 38.4 (37.0-47.0) % MCV 90.4 (80.0-98.0) fL MCH 31.8 (27.0-33.0) pg MCHC 35.2 H (31.0-35.0) g/dl RDW 11.7 (11.0-16.0) % Plt Count 160 (160-400) X10*3/uL MPV 11.2 (9.4-12.3) fL Immature Gran % (Auto) 0.5 H (0.0-0.4) % Neut % (Auto) 48.4 (45-73) % Lymph % (Auto) 35.7 (20-40) % [place] % (Auto) 6.1 (2-11) % Eos % (Auto) 8.6 H (0-4) % Baso % (Auto) 0.7 (0-2) % Lymph # (Auto) 2.7 (1.2-4.9) X10*3/uL [place] # (Auto) 0.5 (0.1-1.2) X10*3/uL Eos # (Auto) 0.7 H (0.0-0.4) X10*3/uL Baso # (Auto) 0.1 (0.0-0.2) X10*3/uL Abs Immat Gran (auto) 0.04 H (0.00-0.03) X10*3/uL Absolute Neuts (auto) 3.7 (2.0-8.3) x10*3/uL Absolute Nucleated RBC 0.000 (0.0-0.012) X10*3/uL Nucleated RBC % (auto) 0.0 (0.0-0.2) /100WBC Sodium 141 (135-145) mmol/L Potassium 3.9 (3.3-5.1) mmol/L Chloride 108 (96-108) mmol/L Carbon Dioxide 27 (22-29) mmol/L Anion Gap 10 L (12-20) BUN 12 (9-16) mg/dL Creatinine 0.74 (0.5-1.4) mg/dL Estim Creat Clear Calc 86.4 Estimated GFR > 60 Random Glucose 206 H (60-115) mg/dL Calcium 9.4 (8.4-10.2) mg/dL Total Bilirubin 0.5 (0.0-1.0) mg/dL AST 22 (5-31) U/L ALT 23 (0-31) U/L Alkaline Phosphatase 99 (39-117) U/L Troponin I High Sens < 2.7 (<3.5-17.0) ng/L Total Protein 6.7 (6.5-8.0) g/dL Albumin 3.7 (3.5-5.0) g/dL Discharge Plan Discharge Clinical Impression: Dizziness, Hypertension, Costochondritis Patient Disposition: Home, Self-Care Instructions: Chronic Hypertension (ED), Dizziness (ED) Additional Instructions: Please follow-up with your primary care physician tomorrow. If you have any worsening or new symptoms, please return to the emergency room or call 911 Prescriptions: New lisinopril 40 mg tablet 40 mg PO DAILY Qty: 90 0RF meclizine 50 mg tablet 50 mg PO DAILY PRN (Reason: motion sickness) Qty: 14 0RF ibuprofen 600 mg tablet 600 mg PO Q8H PRN (Reason: pain) Qty: 14 0RF No Action albuterol sulfate 90 mcg/actuation HFA aerosol inhaler 2 inh PO Q4H PRN (Reason: shortness of breath or wheezing) Qty: 8.5 1RF (DME) FreeStyle Lite Strips Strip See Rx Instructions .ROUTE .MEDSUPPLY Qty: 50 11RF Rx Instructions: Use 1 test strip once a day (DME) blood-glucose meter [FreeStyle Lite Meter] Kit See Rx Instructions .ROUTE .MEDSUPPLY Qty: 1 0RF Rx Instructions: E11.9 ONCE A DAY (DME) lancets [FreeStyle Lancets] 28 gauge misc See Rx Instructions .ROUTE .MEDSUPPLY Qty: 100 11RF Rx Instructions: Use 1 lancet once a day as needed albuterol sulfate 2.5 mg /3 mL (0.083 %) solution for nebulization 2.5 mg inhalation Q4-6H PRN (Reason: shortness of breath or wheezing) 30 Days Qty: 90 2RF Orencia ClickJect 125 mg/mL auto-injector 125 mg subcut QWEEK Qty: 4 2RF (DME) blood pressure monitor Kit See Rx Instructions .Route Qty: 1 0RF Rx Instructions: As directed diclofenac sodium [Aleve (diclofenac)] 1 % gel 2 g topical QID 30 Days Qty: 100 0RF Rx Instructions: apply to single elbow, wrist or hand; for hand includes palm/fingers/back of hand rosuvastatin 10 mg tablet 10 mg PO DAILY 90 Days Qty: 90 1RF docusate sodium [Col-Rite] 100 mg capsule 100 mg PO BID Qty: 30 0RF lidocaine 5 % adhesive patch,medicated 1 patch topical DAILY Qty: 30 0RF Rx Instructions: leave on most painful area for up to 12 hrs oxycodone 5 mg tablet 5 mg PO Q8H PRN (Reason: pain) Qty: 9 0RF Rx Instructions: Partial Fill upon patient request. Trulicity 0.75 mg/0.5 mL pen injector 0.75 mg subcut QWEEK 90 Days Qty: 6.5 0RF amlodipine 2.5 mg tablet 2.5 mg PO DAILY 90 Days Qty: 90 0RF sennosides [senna] 8.6 mg tablet 8.6 mg PO BEDTIME PRN (Reason: constipation) 7 Days Qty: 7 0RF pregabalin 50 mg capsule 50 mg PO BID 5 Days Qty: 10 0RF lisinopril 20 mg tablet 20 mg PO DAILY 30 Days Qty: 30 6RF nabumetone 750 mg tablet 750 mg PO BID 30 Days Qty: 60 6RF metformin 1,000 mg tablet 1,000 mg PO BID 90 Days Qty: 180 1RF Combivent Respimat 20-100 mcg/actuation mist 2 puff inhalation Q4H 30 Days Qty: 4 3RF fluticasone propionate 220 mcg/actuation HFA aerosol inhaler 2 puff inhalation BID 30 Days Qty: 12 5RF Rx Instructions: administer with spacer gabapentin 300 mg capsule 300 mg PO TID 30 Days Qty: 90 0RF (DME) cock up splint See Rx Instructions .Route .MEDSUPPLY Qty: 1 0RF Rx Instructions: wear on the right wrist at night Print Language: Vietnamese
[2024-04-23] MEDS: Meclizine HCl 25 MG TABLET 50 MG PO (04:13)
[2024-04-23] MEDS: Acetaminophen 325 MG TABLET 650 MG PO (04:13)
[2024-04-23 04:27] LABS: Troponin-I High Sensitivity < 2.7 ng/L (<3.5-17.0)
--- NOTE | 2024-04-23 06:05 | PC.NURSE ---
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
== END 2024-04-23 06:20 | disposition home or self-care (01) ==
PROVIDERS: Emergency Provider Emergency Medicine
DX: R42 Dizziness and giddiness (principal); R07.81 Pleurodynia; M94.0 Chondrocostal junction syndrome [Tietze]; R94.31 Abnormal electrocardiogram [ECG] [EKG]; I10 Essential (primary) hypertension; Z79.899 Other long term (current) drug therapy
CPT/HCPCS: 36415; 71101; 80053; 84484; 85025; 93005; 99284

== ENCOUNTER → 2024-04-23 01:04 | Outpatient (BNV) | payer OTHER, SELFPAY | PROVIDERS: Emergency Provider Emergency Medicine; Visit Provider Internal Medicine Cardiovascular Disease | DX: I10 Essential (primary) hypertension (principal) | CPT/HCPCS: 93010 ==

== ENCOUNTER 2024-04-29 06:47 | Emergency (ER) | payer OTHER, SELFPAY ==
--- NOTE | ~2024-04-29 | US_ITS ---
EXAMINATION: US ABDOMEN LIMITED CLINICAL INFORMATION: Right flank pain. COMPARISON: CT abdomen/pelvis 04/17/2024. TECHNIQUE: Real-time imaging of the right upper quadrant abdominal viscera. FINDINGS: PANCREAS: Not well seen due to shadowing from overlying bowel gas. LIVER: Increased liver parenchyma echogenicity. No discrete suspicious focal liver mass. No intrahepatic biliary ductal dilatation. GALLBLADDER: Cholecystectomy. COMMON BILE DUCT: Normal in caliber measuring 0.5 cm in diameter. RIGHT KIDNEY: No hydronephrosis. No renal calculi or focal parenchymal lesions. The kidney measures 11.5 cm in maximum dimension. FREE FLUID: None. US/US abdomen limited IMPRESSION: 1. Increased liver parenchymal echogenicity is nonspecific but most commonly on the basis of diffuse hepatocellular disease such as hepatic steatosis. 2. Status post cholecystectomy.
[2024-04-29 07:06] VITALS: BP 156/74; PULSE 76; RESP 20; TEMP 36.6; O2SAT 97; BMI 39.8
[2024-04-29 07:22] LABS: MANUAL DIFF FLAG NO
[2024-04-29 07:25] LABS: Appearance Urine Clear; Color Urine Dark Yellow; Glucose Urine UA 500 mg/dL (Negative); Leukocyte Esterase Urine Negative (Negative); Nitrite Urine Negative (Negative); Specific Gravity - Urine 1.025 (1.005-1.025); Urine Blood Negative (Negative); Urine Ketones Negative (Negative); Urine Protein Negative (Neg-Trace)
[2024-04-29 07:28] LABS: Basophils Percent Auto 0.6 % (0-2); Eosinophils Absolute Auto 0.6 X10*3/uL (0.0-0.4); Hemoglobin 13.9 g/dl (12.0-16.0); Imm Gran Abs Auto 0.01 X10*3/uL (0.00-0.03); Imm Gran Pct Auto 0.2 % (0.0-0.4); Lymphocytes Absolute Auto 2.1 X10*3/uL (1.2-4.9); Lymphocytes Percent Auto 33.3 % (20-40); Mean Corpuscular HGB Conc 35.6 g/dl (31.0-35.0); Mean Corpuscular Hemoglobin 32.2 pg (27.0-33.0); Mean Corpuscular Volume 90.3 fL (80.0-98.0); Mean Platelet Volume 11.2 fL (9.4-12.3); Monocytes Absolute Auto 0.4 X10*3/uL (0.1-1.2); Monocytes Percent Auto 6.8 % (2-11); Neutrophils Absolute Auto 3.2 x10*3/uL (2.0-8.3); Neutrophils Percent Auto 50.1 % (45-73); Platelet Count 169 X10*3/uL (160-400); Red Blood Count 4.32 X10*6/uL (4.20-5.50); Red Cell Distribution Width 11.6 % (11.0-16.0); White Blood Count 6.3 X10*3/uL (4.8-10.8)
[2024-04-29 07:40] VITALS: BP 150/72; PULSE 70; RESP 18; TEMP 36.8; O2SAT 96
--- NOTE | 2024-04-29 07:40 | ED_ITS ---
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 Munoz HPI narrative: a 64-year-old female came in for evaluation of right side abdominal pain, patient was seen in the emergency department several times for same pain had multiple CT of the abdomen pelvis, ultrasound of the abdomen pelvis, and ribs x- ray That showed no acute pathology. Pain is not associated with nausea vomiting or fever or chills. No shortness of breath, pain is more with movement. Pain is reproducible to touch. No dysuria, no frequency urination, no bloody urine. Related Data Previous Rx's ?Medication ?Instructions ?Recorded albuterol sulfate 90 mcg/actuation 2 inh PO Q4H PRN shortness of 08/13/20 aerosol inhaler breath or wheezing #8.5 grams docusate sodium 100 mg capsule 100 mg PO BID #30 caps 12/07/22 (Col-Rite) blood sugar diagnostic (FreeStyle #50 ea 02/10/23 Lite Strips) blood-glucose meter (FreeStyle #1 ea 02/10/23 Lite Meter kit) lancets 28 gauge (FreeStyle #100 ea 02/10/23 Lancets) cock up splint #1 ea 03/03/23 albuterol sulfate 2.5 mg/3 mL 2.5 mg (3 mL) inhalation Q4-6H PRN 06/29/23 (0.083 %) solution for nebulization shortness of breath or wheezing 30 days #90 mL metformin 1,000 mg tablet 1,000 mg PO BID 90 days #180 tabs 06/29/23 Orencia ClickJect 125 mg/mL 125 mg subcut QWEEK #4 mL 02/07/24 subcutaneous auto-injector (abatacept) blood pressure monitor #1 ea 02/07/24 fluticasone propionate 220 2 puff inhalation BID asthma 30 02/23/24 mcg/actuation HFA aerosol inhaler days #12 grams ipratropium 20 mcg-albuterol 100 2 puff inhalation Q4H ASTHMA/COUGH 02/23/24 mcg/actuation mist for inhalation 30 days #4 grams (Combivent Respimat) gabapentin 300 mg capsule 300 mg PO TID pain 30 days #90 caps 03/07/24 lisinopril 20 mg tablet 20 mg PO DAILY 30 days #30 tabs 03/30/24 nabumetone 750 mg tablet 750 mg PO BID 30 days #60 tabs 03/30/24 lidocaine 5 % topical patch 1 patch topical DAILY #30 ea 04/07/24 oxycodone 5 mg tablet 5 mg PO Q8H PRN pain #9 tabs 04/07/24 diclofenac sodium 1 % topical gel 2 g topical QID 30 days #100 grams 04/18/24 (Aleve (diclofenac)) amlodipine 2.5 mg tablet 2.5 mg PO DAILY 90 days #90 tabs 04/20/24 dulaglutide 0.75 mg/0.5 mL 0.75 mg (0.5 mL) subcut QWEEK 90 04/20/24 subcutaneous pen injector days #6.5 mL (Trulicity) pregabalin 50 mg capsule 50 mg PO BID 5 days #10 caps 04/20/24 rosuvastatin 10 mg tablet 10 mg PO DAILY 90 days #90 tabs 04/20/24 sennosides 8.6 mg tablet (senna) 8.6 mg PO BEDTIME PRN constipation 04/20/24 7 days #7 tabs ibuprofen 600 mg tablet 600 mg PO Q8H PRN pain #14 tabs 04/23/24 lisinopril 40 mg tablet 40 mg PO DAILY #90 tabs 04/23/24 meclizine 50 mg tablet 50 mg PO DAILY PRN motion sickness 04/23/24 #14 tabs cyclobenzaprine 10 mg tablet 10 mg PO TID PRN muscle spasm #10 04/29/24 tabs oxycodone 5 mg tablet 5 mg PO BID PRN pain #10 tabs 04/29/24 Allergies Allergy/AdvReac Type Severity Reaction Status Date / Time cyclobenzaprine Allergy Intermediate Dizziness Verified 04/29/24 07:10 [From Flexeril] orphenadrine [From Norflex] Allergy Intermediate Dizziness Verified 04/29/24 07:10 sarilumab [From Kevzara] Allergy Intermediate Rash Verified 04/29/24 07:10 Review of Systems Review of Systems All other systems are reviewed and are negative Constitutional: Reports as per HPI and Reports no additional constitutional complaints Eyes: Reports as per HPI and Reports no additional eye complaints Reports system reviewed and no additional complaints, except as documented Cardiovascular: Reports as per HPI and Reports no additional cardiovascular complaints Respiratory: Reports as per HPI and Reports no additional respiratory complaints Gastrointestinal: Reports as per HPI and Reports no additional gastrointestinal complaints Genitourinary: Reports no additional female genitourinary complaints Musculoskeletal: Reports no additional musculoskeletal complaints Skin/Breast: Reports system reviewed and no additional complaints, except as docu Psychiatric: Reports no additional psychiatric complaints Endocrine: Reports no additional endocrine complaints Hematologic/Lymphatic: Reports no additional hematologic/lymphatic complaints Allergic/Immunologic: Reports no additional allergic/immunologic complaints Reports system reviewed and no additional complaints, except as documented and Reports Abnormal speech present [facility] Past Medical History Medical History Morbid obesity with BMI of 45.0-49.9, adult Sacroiliitis Rheumatic fever TIA (transient ischemic attack) Right-sided back pain History of COVID-19 Asthma exacerbation Hospital discharge follow-up Sacroiliitis Renal calculi Costovertebral angle tenderness Burning with urination Disc degeneration, lumbar Spondylosis of cervical spine Spondylosis of lumbar spine Pleuritic pain Restrictive lung disease Morbid obesity Asthma Dyslipidemia Essential hypertension Vaginal modesta Seropositive rheumatoid arthritis Rheumatoid arthritis Diabetes Surgical History History of cholecystectomy Hx of colonoscopy (09/01/19) History of surgery on wrist Family History Family History Father Diabetes mellitus Myocardial infarction Hypertension CVD (cardiovascular disease) Mother Diabetes mellitus CVD (cardiovascular disease) Sister No problems noted. Son No problems noted. Son No problems noted. Son No problems noted. Daughter Thyroiditis Daughter No problems noted. Daughter No problems noted. Daughter No problems noted. Daughter No problems noted. Social History Social History Housing: Apartment Unable to assess alcohol history related to: Unknown Alcohol intake: unknown Patient Tobacco Use Status: Never used Tobacco e-Cigarette/Vaping Use: Never Used Second Hand Smoke Exposure: No Advance Directives: No Advance Directives Information Provided: No Do you have a plan to hurt others: No Plan service: No Current occupational status: disabled Sexual orientation: Straight/Heterosexual Gender identity: Female Cognitive needs: No Hearing needs: No Vision needs: No Physical Exam ED Vital Signs: Vital Signs - 24 hr 04/29/24 07:06 04/29/24 07:40 04/29/24 10:47 Temperature 97.9 F 98.3 F 98.2 F Pulse Rate 76 70 60 Respiratory Rate 20 18 16 Blood Pressure 156/74 H 150/72 H 162/86 H Pulse Oximetry 97 96 98 Oxygen Delivery Method Room Air Room Air Room Air BMI result Body Mass Index 39.8 Vital signs have been reviewed and appear to be correct. Blood pressure elevated. Heart rate normal. Respiratory rate normal. Temperature normal. Oxygen saturation normal. Appearance: Alert. Oriented X3. No acute distress. Head: Normal external exam. Normocephalic. Atraumatic. No Perera signs noted. No raccoon eyes noted Eyes: PERRLA. EOMI. Conjunctiva and sclera normal. Eyelids normal. ENT: TM's Normal. Pharynx normal. Uvula midline. Moist mucous membranes. No trismus noted. No drooling noted. No muffled voice noted. Neck: Normal inspection. Neck supple. FROM. No adenopathy. Thyroid Normal. No meningeal signs. No neck mass noted. CVS: Normal heart rate and rhythm. Heart sound normal. No murmurs noted. Pulses normal throughout. Respiratory: No respiratory distress. Painless inspiration. Breath sounds normal. No wheezes/rales/rhonchi noted. reproducible tenderness to the right chest wall. No accessory muscle usage noted or decreased air movement noted. Abdomen: Soft and nontender. Bowel sounds normal in all 4 quadrants. No distention noted. No organomegaly noted. No visible injury noted. Back: Right CVA tenderness. Full range of motion noted. Skin: Skin warm and dry. Normal skin color. Normal skin turgor. No rashes/lesions/lacerations noted. Extremities: No lower extremity edema. Extremities exhibit normal range of motion. Extremities nontender. Neuro: Oriented X 3. Cranial nerve exam: II-XII are grossly intact No motor deficit. No sensory deficit. Reflexes normal. Course Reevaluation(s) Reevaluation #1: right chest wall / abdominal pain for few weeks, patient had multiple evaluation with multiple abdominal CT, ribs x-ray which revealed no acute abnormality. Patient returned for persistence of pain. Physical exam is consistent with right flank pain that is more with movement or touch. Hyperglycemia with no DKA responded well to IV fluids and insulin in the ED. Consider few pills of oxycodone, muscle relaxant, rest, heating pads. Time: 11:10 Medical Decision Making Differential Diagnosis Differential Diagnoses: The differential diagnosis associated with the presentation includes ( Electrolyte derangement, chest wall pain, abdominal pain, UTI, pyelonephritis, kidney stone, hyperglycemia, DKA, ACS.) Admission/Observation Consideration of admission/observation: Escalation of care including admission/observation considered Lab Data MDM Lab Attestation statement: I reviewed the patient's lab results. 04/29/24 07:16 04/29/24 07:16 Labs: Lab Results 04/29/24 04/29/24 04/29/24 Range/Units 07:16 08:59 09:48 WBC 6.3 (4.8-10.8) X10*3/uL RBC 4.32 (4.20-5.50) X10*6/uL Hgb 13.9 (12.0-16.0) g/dl Hct 39.0 (37.0-47.0) % MCV 90.3 (80.0-98.0) fL MCH 32.2 (27.0-33.0) pg MCHC 35.6 H (31.0-35.0) g/dl RDW 11.6 (11.0-16.0) % Plt Count 169 (160-400) X10*3/uL MPV 11.2 (9.4-12.3) fL Immature Gran % (Auto) 0.2 (0.0-0.4) % Neut % (Auto) 50.1 (45-73) % Lymph % (Auto) 33.3 (20-40) % [place] % (Auto) 6.8 (2-11) % Eos % (Auto) 9.0 H (0-4) % Baso % (Auto) 0.6 (0-2) % Lymph # (Auto) 2.1 (1.2-4.9) X10*3/uL [place] # (Auto) 0.4 (0.1-1.2) X10*3/uL Eos # (Auto) 0.6 H (0.0-0.4) X10*3/uL Baso # (Auto) 0.0 (0.0-0.2) X10*3/uL Abs Immat Gran (auto) 0.01 (0.00-0.03) X10*3/uL Absolute Neuts (auto) 3.2 (2.0-8.3) x10*3/uL Absolute Nucleated RBC 0.000 (0.0-0.012) X10*3/uL Nucleated RBC % (auto) 0.0 (0.0-0.2) /100WBC Sodium 139 (135-145) mmol/L Potassium 4.0 (3.3-5.1) mmol/L Chloride 106 (96-108) mmol/L Carbon Dioxide 25 (22-29) mmol/L Anion Gap 12 (12-20) BUN 16 (9-16) mg/dL Creatinine 0.93 (0.5-1.4) mg/dL Estim Creat Clear Calc 64.5 Estimated GFR > 60 POC Glucose 264 H (60-115) mg/dL Random Glucose 351 H* (60-115) mg/dL Calcium 9.5 (8.4-10.2) mg/dL Total Bilirubin 0.7 (0.0-1.0) mg/dL AST 19 (5-31) U/L ALT 20 (0-31) U/L Alkaline Phosphatase 100 (39-117) U/L Troponin I High Sens < 2.7 (<3.5-17.0) ng/L Total Protein 6.7 (6.5-8.0) g/dL Albumin 3.7 (3.5-5.0) g/dL Urine Color Dark Yellow Urine Appearance Clear Urine pH 5.0 (5.0-9.0) Ur Specific Bruce 1.025 (1.005-1.025) Urine Protein Negative (Neg-Trace) mg/dL Urine Glucose (UA) 500 H (Negative) mg/dL Urine Ketones Negative (Negative) mg/dL Urine Blood Negative (Negative) Urine Nitrite Negative (Negative) Ur Leukocyte Esterase Negative (Negative) Independent Interpretation I performed an independent interpretation of an: EKG ( Normal sinus rhythm at 60 beats per minutes, left axis deviation, normal intervals, no ST-T changes) and Ultrasound ( abdomen: 1. Increased liver parenchymal echogenicity is nonspecific but most commonly on the basis of diffuse hepatocellular disease such as hepatic steatosis. 2. Status post cholecystectomy. ) Radiology Impression Discussion of test interpretation with radiology: I have reviewed the radiologist's reading. Medications Administered Discontinued Medications Generic Name Dose Route Start Last Admin Trade Name Freq PRN Reason Stop Dose Admin Sodium Chloride 1,000 mls @ 999 mls/hr 04/29/24 08:09 04/29/24 10:47 Ns IV 04/29/24 09:09 Infused .Q1H1M ONE Infusion Insulin Human Regular 5 unit 04/29/24 08:09 04/29/24 08:26 Insulin Regular, Human 100 Unit/Ml 10 Ml Vial IVPUSH 04/29/24 08:10 5 unit ONCE ONE Administration Ketorolac Tromethamine 30 mg 04/29/24 07:35 04/29/24 07:58 Ketorolac Tromethamine 30 Mg/Ml Vial IVPUSH 04/29/24 07:36 30 mg ONCE ONE Administration Discharge Plan Discharge Clinical Impression: Flank pain Patient Disposition: Home, Self-Care Instructions: Flank Pain (ED) Prescriptions: New oxycodone 5 mg tablet 5 mg PO BID PRN (Reason: pain) Qty: 10 0RF Rx Instructions: Partial Fill upon patient request. cyclobenzaprine 10 mg tablet 10 mg PO TID PRN (Reason: muscle spasm) Qty: 10 0RF No Action albuterol sulfate 90 mcg/actuation HFA aerosol inhaler 2 inh PO Q4H PRN (Reason: shortness of breath or wheezing) Qty: 8.5 1RF (DME) FreeStyle Lite Strips Strip See Rx Instructions .ROUTE .MEDSUPPLY Qty: 50 11RF Rx Instructions: Use 1 test strip once a day (DME) blood-glucose meter [FreeStyle Lite Meter] Kit See Rx Instructions .ROUTE .MEDSUPPLY Qty: 1 0RF Rx Instructions: E11.9 ONCE A DAY (DME) lancets [FreeStyle Lancets] 28 gauge misc See Rx Instructions .ROUTE .MEDSUPPLY Qty: 100 11RF Rx Instructions: Use 1 lancet once a day as needed albuterol sulfate 2.5 mg /3 mL (0.083 %) solution for nebulization 2.5 mg inhalation Q4-6H PRN (Reason: shortness of breath or wheezing) 30 Days Qty: 90 2RF Orencia ClickJect 125 mg/mL auto-injector 125 mg subcut QWEEK Qty: 4 2RF (DME) blood pressure monitor Kit See Rx Instructions .Route Qty: 1 0RF Rx Instructions: As directed diclofenac sodium [Aleve (diclofenac)] 1 % gel 2 g topical QID 30 Days Qty: 100 0RF Rx Instructions: apply to single elbow, wrist or hand; for hand includes palm/fingers/back of hand rosuvastatin 10 mg tablet 10 mg PO DAILY 90 Days Qty: 90 1RF docusate sodium [Col-Rite] 100 mg capsule 100 mg PO BID Qty: 30 0RF lisinopril 40 mg tablet 40 mg PO DAILY Qty: 90 0RF meclizine 50 mg tablet 50 mg PO DAILY PRN (Reason: motion sickness) Qty: 14 0RF ibuprofen 600 mg tablet 600 mg PO Q8H PRN (Reason: pain) Qty: 14 0RF lidocaine 5 % adhesive patch,medicated 1 patch topical DAILY Qty: 30 0RF Rx Instructions: leave on most painful area for up to 12 hrs oxycodone 5 mg tablet 5 mg PO Q8H PRN (Reason: pain) Qty: 9 0RF Rx Instructions: Partial Fill upon patient request. Trulicity 0.75 mg/0.5 mL pen injector 0.75 mg subcut QWEEK 90 Days Qty: 6.5 0RF amlodipine 2.5 mg tablet 2.5 mg PO DAILY 90 Days Qty: 90 0RF sennosides [senna] 8.6 mg tablet 8.6 mg PO BEDTIME PRN (Reason: constipation) 7 Days Qty: 7 0RF pregabalin 50 mg capsule 50 mg PO BID 5 Days Qty: 10 0RF lisinopril 20 mg tablet 20 mg PO DAILY 30 Days Qty: 30 6RF nabumetone 750 mg tablet 750 mg PO BID 30 Days Qty: 60 6RF metformin 1,000 mg tablet 1,000 mg PO BID 90 Days Qty: 180 1RF Combivent Respimat 20-100 mcg/actuation mist 2 puff inhalation Q4H 30 Days Qty: 4 3RF fluticasone propionate 220 mcg/actuation HFA aerosol inhaler 2 puff inhalation BID 30 Days Qty: 12 5RF Rx Instructions: administer with spacer gabapentin 300 mg capsule 300 mg PO TID 30 Days Qty: 90 0RF (DME) cock up splint See Rx Instructions .Route .MEDSUPPLY Qty: 1 0RF Rx Instructions: wear on the right wrist at night Referrals: Aniyah Gonzalez MD [Primary Care Provider] - Print Language: Indonesian
[2024-04-29 07:50] LABS: Alanine Aminotransferase 20 U/L (0-31); Albumin Level 3.7 g/dL (3.5-5.0); Alkaline Phosphatase 100 U/L (39-117); Anion Gap 12 (12-20); Aspartate Amino Transferase 19 U/L (5-31); Bilirubin Total 0.7 mg/dL (0.0-1.0); Blood Urea Nitrogen 16 mg/dL (9-16); Calcium 9.5 mg/dL (8.4-10.2); Carbon Dioxide 25 mmol/L (22-29); Chloride 106 mmol/L (96-108); Creatinine Clr Calc Pharmacy 64.5; Estimated Glomerular Filt Rate > 60; Glucose Random 351 mg/dL (60-115); Sodium 139 mmol/L (135-145); Total Protein 6.7 g/dL (6.5-8.0)
[2024-04-29] MEDS: Ketorolac Tromethamine 30 MG/ML VIAL IVPUSH (07:58)
[2024-04-29] MEDS: Insulin Regular, Human 100 UNIT/ML 10 ML VIAL IVPUSH (08:26)
[2024-04-29] MEDS: 0.9 % Sodium Chloride 1,000 ML 999 ML IV (08:27)
[2024-04-29 09:04] LABS: Glucose, Whole Blood 264 mg/dL (60-115)
--- NOTE | 2024-04-29 09:11 | ECG_ITS ---
Test Reason : MOSELEF Blood Pressure : / mmHG Vent. Rate : 060 BPM Atrial Rate : 060 BPM P-R Int : 194 ms QRS Dur : 096 ms QT Int : 400 ms P-R-T Axes : -28 006 036 degrees QTc Int : 400 ms Normal sinus rhythm Normal ECG When compared with ECG of 23-APR-2024 01:04, No significant change was found Referred By: Yemi Munoz Electronically Signed By:CARMEN CHEN MD
[2024-04-29 10:23] LABS: Troponin-I High Sensitivity < 2.7 ng/L (<3.5-17.0)
[2024-04-29 10:47] VITALS: BP 162/86; PULSE 60; RESP 16; TEMP 36.8; O2SAT 98
[2024-04-29 11:23] VITALS: BP 140/66; PULSE 67; RESP 16; TEMP 36.8; O2SAT 97
[2024-04-29 11:30] VITALS: BP 140/66; PULSE 67; RESP 16; TEMP 36.8; O2SAT 97
== END 2024-04-29 11:31 | disposition home or self-care (01) ==
PROVIDERS: Emergency Provider Emergency Medicine; PCP Internal Medicine
DX: R10.9 Unspecified abdominal pain (principal); E11.9 Type 2 diabetes mellitus without complications; I10 Essential (primary) hypertension; E78.5 Hyperlipidemia, unspecified; J45.909 Unspecified asthma, uncomplicated; Z79.84 Long term (current) use of oral hypoglycemic drugs; Z79.85 Long-term (current) use of injectable non-insulin antidiabetic drugs; Z79.02 Long term (current) use of antithrombotics/antiplatelets; Z79.899 Other long term (current) drug therapy
CPT/HCPCS: 36415; 76705; 80053; 81003; 82947; 84484; 85025; 93005; 96361; 96374; 96375; 99284; J1885

== ENCOUNTER → 2024-04-29 09:11 | Outpatient (BNV) | payer OTHER, SELFPAY | PROVIDERS: Emergency Provider Emergency Medicine; PCP Internal Medicine; Visit Provider Internal Medicine Cardiovascular Disease | DX: R10.9 Unspecified abdominal pain (principal) | CPT/HCPCS: 93010 ==

== ENCOUNTER → 2024-05-12 12:59 | Outpatient (BNVA) | payer OTHER, SELFPAY | PROVIDERS: PCP Internal Medicine; Visit Provider Nurse Practitioner Family ==

== ENCOUNTER 2024-05-18 15:33 | Outpatient (AMB) | payer OTHER, SELFPAY ==
--- NOTE | 2024-05-18 15:43 | A.OFFVIS_ITS ---
Vital Signs 05/18/24 15:45 Height 5 ft 1 in Weight 213 lb 13.574 oz BMI 40.4 BP 110/60 Blood Pressure Location Lt brachial Position Sitting Pulse 71 Pulse Source Pulse Oximeter Pulse Oximetry (%) 98 Oxygen Delivery Method Room Air Intake Visit Reasons: Pulm Nodule, COPD follow-up, CHEST PAIN Intake Note: pt is here for follow up and states she is so/so, it has been months she has been dealing with pain on the right side, many ER trips for this but no answers. When she takes a deep breath is when this hurts. 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 Allergies cyclobenzaprine [From Flexeril] Allergy (Intermediate, Verified 05/19/24 09:41) Dizziness orphenadrine [From Norflex] Allergy (Intermediate, Verified 05/19/24 09:41) Dizziness sarilumab [From Kevzara] Allergy (Intermediate, Verified 05/19/24 09:41) Rash Medication List - Last Reconciled 05/19/24 by Deena Grande MD albuterol sulfate 90 mcg/actuation 2 inhalations PO Q4H PRN albuterol sulfate 2.5 mg (3 mL) inhalation Q4-6H PRN 30 days amlodipine 2.5 mg PO DAILY 90 days blood pressure monitor As directed blood sugar diagnostic (FreeStyle Lite Strips) Use 1 test strip once a day blood-glucose meter (FreeStyle Lite Meter kit) E11.9 ONCE A DAY [cock up splint wear on the right wrist at night ] cyclobenzaprine 10 mg PO TID PRN diclofenac sodium 1% (Aleve (diclofenac)) 2 grams topical QID 30 days docusate sodium (Col-Rite) 100 mg PO BID dulaglutide (Trulicity) 0.75 mg (0.5 mL) subcut QWEEK 90 days fluticasone propionate 220 mcg/actuation 2 puffs inhalation BID 30 days gabapentin 300 mg PO TID 30 days ibuprofen 600 mg PO Q8H PRN ipratropium-albuterol 20-100 mcg/actuation (Combivent Respimat) 2 puffs inhalation Q4H 30 days lancets (FreeStyle Lancets) Use 1 lancet once a day as needed lidocaine 5% 1 patch topical DAILY lisinopril 40 mg PO DAILY lisinopril 20 mg PO DAILY 30 days meclizine 50 mg PO DAILY PRN metformin 1,000 mg PO BID 90 days nabumetone 750 mg PO BID 30 days Orencia ClickJect (abatacept) 125 mg subcut QWEEK NS oxycodone 5 mg PO Q8H PRN oxycodone 5 mg PO BID PRN pregabalin 50 mg PO BID 5 days rosuvastatin 10 mg PO DAILY 90 days sennosides (senna) 8.6 mg PO BEDTIME PRN 7 days Do you need a note to return to daycare/school/sports/work: No HPI HPI Pulm Nodule: Details: 64 YEARS OLD FEMALE, WITH MORBID OBESITY, CHRONIC OBSTRUCTIVE PULMONARY DISEASE/CHRONIC RESTRICTIVE PULMONARY DISORDER. NONSMOKER, COMES FOR FOLLOW-UP, DESCRIBES THAT HER MAIN ISSUE IS PAIN IN THE RIGHT RIBCAGE AREA, FOR MANY MONTHS. SHE HAS NO HISTORY OF ANY DISTINCT EVENT OF HURTING HER CHEST. SHE HAS BEEN SEEN IN THE EMERGENCY ROOM AND RADIOLOGIC STUDIES HAVE BEEN NEGATIVE. HER NO ACUTE OR OLD RIB FRACTURES NOTED. SHE HAS BEEN CONSIDERED TO HAVE MUSCULOSKELETAL WORSE IS NEUROPATHIC PAIN. SHE IS BEING TREATED WITH VARIOUS ANALGESICS, LOCAL DICLOFENAC WELL ANESTHETIC CREAMS. IBUPROFEN, CURRENTLY ON GABAPENTIN 300 MG T.I.D.. CLAIMS THAT HER PAIN GETS WORSE OFF AND ON, ESPECIALLY ON TAKING DEEP BREATH OR IF SHE HAS BOUTS OF COUGH. SHOULD BE NOTED THAT SHE IS ALSO BEING FOLLOWED BY PAIN MEDICINE SERVICE, AND SHE DOES HAVE DEGENERATIVE ARTHRITIS OF THE LUMBAR WELL THORACIC SPINE. FAR BREATHING IS CONCERNED THAT IS RELATIVELY STABLE ON HER CURRENT REGIMEN. [facility] Medical History Morbid obesity with BMI of 45.0-49.9, adult Sacroiliitis Rheumatic fever TIA (transient ischemic attack) Right-sided back pain History of COVID-19 Asthma exacerbation Hospital discharge follow-up Sacroiliitis Renal calculi Costovertebral angle tenderness Burning with urination Disc degeneration, lumbar Spondylosis of cervical spine Spondylosis of lumbar spine Pleuritic pain Restrictive lung disease Morbid obesity Asthma Dyslipidemia Essential hypertension Vaginal modesta Seropositive rheumatoid arthritis Rheumatoid arthritis Diabetes Surgical History History of cholecystectomy Hx of colonoscopy (09/01/19) History of surgery on wrist Family History Father Diabetes mellitus Myocardial infarction Hypertension CVD (cardiovascular disease) Mother Diabetes mellitus CVD (cardiovascular disease) Sister No problems noted. Son No problems noted. Son No problems noted. Son No problems noted. Daughter Thyroiditis Daughter No problems noted. Daughter No problems noted. Daughter No problems noted. Daughter No problems noted. Social History Housing: Apartment Unable to assess alcohol history related to: Unknown Alcohol intake: unknown Patient Tobacco Use Status: Never used Tobacco e-Cigarette/Vaping Use: Never Used Second Hand Smoke Exposure: No service: No Current occupational status: disabled Sexual orientation: Straight/Heterosexual Gender identity: Female Cognitive needs: No Hearing needs: No Vision needs: No Female Reproductive History Menstrual Age of Menarche: 11 Date of menopause: 01/22/10 Review of Systems Const All systems reviewed & are unremarkable except as noted in HPI and below Eyes Reports no additional complaints ENT Reports nasal congestion (Mild off and on) Card Denies chest pain, Denies irregular heart rhythm and Denies leg edema Resp Reports as per HPI and Reports cough (Mild to moderate cough since the COVID 2 w eeks ago) GI Reports constipation Reports other (Mild burning with urination) Musc Reports no additional complaints Skin/Breast Reports system reviewed and no additional complaints, except as documented Neuro Reports no additional complaints Psych Reports no additional complaints Physical Exam Vital Signs: Last Vital Signs Pulse 71 05/18/24 15:45 BP 110/60 05/18/24 15:45 Pulse Ox 98 05/18/24 15:45 Oxygen Delivery Method Room Air 05/18/24 15:45 BMI result Body Mass Index 40.4 Const General: comfortable, no acute distress, alert and awake Orientation/consciousness: patient oriented x3 HEENT Other: NASOPHARYNX IS CLEAR ON EXAMINATION, NO EXCESSIVE MUCUS IS NOTED. Head: Yes normal to inspection General nose exam: No nasal polyps present and No nasal discharge present Face and sinus: Yes sinuses nontender Mouth: oropharynx normal Throat: Yes posterior oropharynx normal Eyes General: appearance normal, both eyes and all related structures Neck Neck: Yes normal visual inspection, Yes no lymphadenopathy, Yes trachea midline and Yes no JVD Thyroid: Thyroid normal Chest Chest palpation & inspection: normal inspection of the chest, normal palpation of entire chest wall and no tenderness (THERE IS NO LOCALIZED TENDERNESS OVER THE RIGHT CHEST WALL.) Resp Other: Percussion note is resonant, breath sounds equal on both sides, moderately distant , Breath sounds are diminished over the basilar areas, otherwise both sides of the chest are clear. Cardio Palpation: normal PMI Rate: regular rate Rhythm: regular rhythm Heart sounds: no gallops and no murmurs GI Palpation (GI): Soft to palpation, nontender, No hepatosplenomegaly present and no masses Auscultation: normal bowel sounds Back/Spine/Pelvis Thoracic/Lumbar Spine: thoracic and lumbar spine normal to inspection, thoraco- lumbar ROM limited, thoraco-lumbar spasm and thoracic spinal tenderness Skin General skin exam: no rashes or lesions noted Neuro General: patient oriented x3 and no focal motor deficits Cranial nerves: Yes CN's II-XII intact bilaterally Extrem General: Yes normal to inspection, Yes no clubbing, cyanosis or edema and Yes no calf tenderness Psych Appearance: grossly normal Speech and movement: Normal speech and movement present Results Reviewed Results Reviewed: Chest x-ray with rib series on 04/23/2024, Image and report reviewed. There was no active lung disease and no evidence of any fractures of the ribs. Assessment & Plan Assessment & Plan (1) Asthma: Comment: ASTHMA/ REACTIVE AIRWAYS , CAUSING COUGH . He has nonspecific chronic cough with some shortness of breath. Being treated with inhaled steroids and bronchodilators, Denies any acute attacks of wheezing, but continues to have intermittent cough. Code(s): J45.909 - Unspecified asthma, uncomplicated Category: Medical Plan: Continue Flovent-to 22 puffs b.i.d. and albuterol HFA 2 puffs Q 6 hours p.r.n.. She also has Combivent Respimat and advised to use 1 inhalation Q 6 hours p.r.n. if symptoms are worse (2) Restrictive lung disease: Comment: As per PFT in 2019 she has Moderate degree of restrictive lung disease most likely related to her obesity This will be helped by weight reduction. Code(s): J98.4 - Other disorders of lung Category: Medical Plan: Again advised to try to lose some weight and continue to do deep breathing exercises . (3) Pulmonary nodules: Comment: CT scan of the chest in December 2021 showed, bilateral pulmonary nodules, But 1 in the right upper lobe 6 mm in size. Patient is nonsmoker, and has an average risk factor. REASSURED AND EXPLAINED ABOUT THE NODULE. LAST CT SCAN OF THE CHEST ON FEBRUARY 17, AGAIN SHOWED PULMONARY NODULE 6 MM IN THE RIGHT UPPER LOBE, OTHER NONSPECIFIC OPACITIES HAD CLEARED. Code(s): R91.8 - Other nonspecific abnormal finding of lung field Category: Medical Plan: Patient has been reassured (4) Morbid obesity with BMI of 40.0-44.9, adult: Comment: Continues to be grossly obese, BMI= 40.4 Code(s): E66.01 - Morbid (severe) obesity due to excess calories; Z68.41 - Body mass index [BMI] 40.0-44.9, adult Category: Medical Plan: DISCUSSED ABOUT .BEING OVERWEIGHT SHE IS NOT IN ANY POSITION TO LOSE WEIGHT. DENIES SYMPTOMS OF SLEEP APNEA. (5) Thoracic spine pain: Comment: CHRONIC BACK PAIN AND NOW MORE CONFINED TO THE RIGHT CHEST WALL, IS PROBABLY RELATED TO CHRONIC DEGENERATIVE ARTHRITIS OF THE SPINE Code(s): M54.6 - Pain in thoracic spine Category: Medical Plan: CONTINUE USING IBUPROFEN 600 MG Q 8 HOURS P.R.N. CONTINUE TO FOLLOW-UP WITH THE PRIMARY CARE PHYSICIAN AND ALSO PAIN MANAGEMENT SERVICE Coding Level of Care Code Est Pt Level 4 (83919) Diagnoses Asthma J45.909 Restrictive lung disease J98.4 Pulmonary nodules R91.8 Morbid obesity with BMI of 40.0-44.9, adult E66.01; Z68.41 Thoracic spine pain M54.6
[2024-05-18 15:45] VITALS: BP 110/60; PULSE 71; O2SAT 98; BMI 40.4
== END 2024-05-18 16:25 | disposition home or self-care (01) ==
PROVIDERS: PCP Internal Medicine; Visit Provider Internal Medicine
DX: J45.909 Unspecified asthma, uncomplicated (principal); J98.4 Other disorders of lung; R91.8 Other nonspecific abnormal finding of lung field; E66.01 Morbid (severe) obesity due to excess calories; Z68.41 Body mass index [BMI] 40.0-44.9, adult; M54.6 Pain in thoracic spine
CPT/HCPCS: 99214

== ENCOUNTER → 2024-05-18 15:33 | Outpatient (BNVA) | payer OTHER, SELFPAY | PROVIDERS: PCP Internal Medicine; Visit Provider Internal Medicine | DX: J45.909 Unspecified asthma, uncomplicated (principal); J98.4 Other disorders of lung; R91.8 Other nonspecific abnormal finding of lung field; R05.8 Other specified cough; U09.9 Post COVID-19 condition, unspecified; M54.6 Pain in thoracic spine; E66.01 Morbid (severe) obesity due to excess calories; Z68.41 Body mass index [BMI] 40.0-44.9, adult | CPT/HCPCS: 99212 ==

== ENCOUNTER 2024-05-24 14:33 | Outpatient (REF) | payer OTHER, SELFPAY ==
--- NOTE | ~2024-05-24 | MM_ITS ---
EXAMINATION: MM SCREENING DIGITAL BREAST TOMOSYNTHESIS, BILATERAL CLINICAL INFORMATION: Screening. Asymptomatic. COMPARISON: Mammography: This study is compared with prior exams dating back to 2019. TECHNIQUE: Digital breast tomosynthesis is performed in both the craniocaudal and mediolateral oblique views along with computer-aided detection (CAD). Synthesized 2D images are generated from the tomosynthesis. FINDINGS: The breasts are almost entirely fatty (ACR BI-RADS breast composition Category a). There are no significant masses, abnormal calcifications, or other abnormalities. Few, bilateral, benign secretory calcifications are present in each breast. MM/MM tomosynthesis screening BI IMPRESSION: No mammographic evidence of malignancy. ASSESSMENT: BI-RADS BI-RADS 2 - Benign Findings RECOMMENDATION: Routine annual mammography screening. 1 year F/U This examination should not preclude the clinical evaluation of a suspicious palpable abnormality. This patient's information was entered into a reminder system with a target due date for their next mammogram. Electronically signed by: Juanis Ulloa MD 06/15/2024 04:23 PM EDT
== END 2024-05-24 14:34 | disposition home or self-care (01) ==
LOC: HO.MAMMO 14:33
PROVIDERS: PCP Internal Medicine; Visit Provider Internal Medicine
DX: Z12.31 Encounter for screening mammogram for malignant neoplasm of breast (principal)
CPT/HCPCS: 77063; 77067

== ENCOUNTER → 2024-05-24 15:00 | Outpatient (BNV) | payer OTHER, SELFPAY | PROVIDERS: PCP Internal Medicine; Visit Provider Radiology Diagnostic Radiology | DX: Z12.31 Encounter for screening mammogram for malignant neoplasm of breast (principal) | CPT/HCPCS: 77063; 77067 ==

== ENCOUNTER 2024-05-25 07:14 | Outpatient (REF) | payer OTHER, SELFPAY | END 2024-05-25 07:15 | disposition home or self-care (01) | LOC: CF 07:14 | PROVIDERS: PCP Internal Medicine; Visit Provider Internal Medicine | DX: M47.816 Spondylosis without myelopathy or radiculopathy, lumbar region (principal) | CPT/HCPCS: 64493; 64494; J2795; Q9967 ==

== ENCOUNTER 2024-05-25 10:12 | Outpatient (AMB) | payer OTHER, SELFPAY ==
[2024-05-25 10:30] VITALS: BP 178/81; PULSE 70; RESP 17; O2SAT 100
--- NOTE | 2024-05-25 11:38 | A.OFFVIS_ITS ---
Vital Signs 05/25/24 10:30 05/25/24 11:39 BP 178/81 H 140/73 H Blood Pressure Location Rt brachial Rt brachial Position Sitting Sitting Respiration 17 18 Pulse 70 71 Pulse Source Pulse Oximeter Pulse Oximeter Pulse Oximetry (%) 100 100 Oxygen Delivery Method Room Air Room Air Comment Pre-op Post-op Intake Visit Reasons: Right Dx L3-L4-DR-L5 MBB Allergies cyclobenzaprine [From Flexeril] Allergy (Intermediate, Verified 05/19/24 09:41) Dizziness orphenadrine [From Norflex] Allergy (Intermediate, Verified 05/19/24 09:41) Dizziness sarilumab [From Kevzara] Allergy (Intermediate, Verified 05/19/24 09:41) Rash HPI HPI Right Dx L3-L4-DR-L5 MBB: Details: Patient presents for scheduled procedure. Denies any recent cough, cold, infection, fever or other significant changes in medical history since last office visit. [facility] Medical History Morbid obesity with BMI of 45.0-49.9, adult Sacroiliitis Rheumatic fever TIA (transient ischemic attack) Right-sided back pain History of COVID-19 Asthma exacerbation Hospital discharge follow-up Sacroiliitis Renal calculi Costovertebral angle tenderness Burning with urination Disc degeneration, lumbar Spondylosis of cervical spine Spondylosis of lumbar spine Pleuritic pain Restrictive lung disease Morbid obesity Asthma Dyslipidemia Essential hypertension Vaginal modesta Seropositive rheumatoid arthritis Rheumatoid arthritis Diabetes Surgical History History of cholecystectomy Hx of colonoscopy (09/01/19) History of surgery on wrist Family History Father Diabetes mellitus Myocardial infarction Hypertension CVD (cardiovascular disease) Mother Diabetes mellitus CVD (cardiovascular disease) Sister No problems noted. Son No problems noted. Son No problems noted. Son No problems noted. Daughter Thyroiditis Daughter No problems noted. Daughter No problems noted. Daughter No problems noted. Daughter No problems noted. Social History Housing: Apartment Unable to assess alcohol history related to: Unknown Alcohol intake: unknown Patient Tobacco Use Status: Never used Tobacco e-Cigarette/Vaping Use: Never Used Second Hand Smoke Exposure: No service: No Current occupational status: disabled Sexual orientation: Straight/Heterosexual Gender identity: Female Cognitive needs: No Hearing needs: No Vision needs: No Female Reproductive History Menstrual Age of Menarche: 11 Date of menopause: 01/22/10 Physical Exam Vital Signs: Last Vital Signs Pulse 71 05/25/24 11:39 Resp 18 05/25/24 11:39 BP 140/73 H 05/25/24 11:39 Pulse Ox 100 05/25/24 11:39 Oxygen Delivery Method Room Air 05/25/24 11:39 Office Procedures Lumbar/Sacral Facet Inj Details: Lumbar Medial Branch Block, Right L3, L4 medial branches and L5 Dorsal Ramus (2 levels, 3 nerves) After obtaining written consent, pre-procedure blood pressure and pulse were recorded and are in the nursing record for review. The patient was placed in a prone position. The respective lumbosacral area was prepped with chloraprep and draped in sterile fashion. The skin over the target medial branch nerves was ane sthetized with 0.5% lidocaine. A 22 gauge 3.5 inch needle was inserted into the target medial branch nerve under fluoroscopic guidance. No paresthesias were elicited with needle placement and aspiration was negative for blood and CSF. Next, 0.2cc of omnipaque 180 was injected to verify positioning. Next 0.5 ml 0.5% ropivicaine was injected (0.5cc total per level). The identical procedure was performed at the remaining levels. The skin was cleansed and a sterile bandage was applied. Following the procedure the patient's vital signs were stable. The patient tolerated the procedure well and no complications were encountered. Following the procedure the patient's vital signs were stable. The patient was discharged home in good condition with post-procedural instructions. Time Out: Immediately prior to the procedure, the following was verbally confirmed that there is a signed consent form and that the correct patient, planned procedure, site and side are consistent with documentation and that necessary equipment and/or blood products are available prior to the start of the case. Complications: none EBL: <5 cc 60312 - with Fluoroscopy 94131 - second level, with Fluoroscopy Procedure code (CPT) selection complete Assessment & Plan Assessment & Plan (1) Lumbar spondylosis: Code(s): M47.816 - Spondylosis without myelopathy or radiculopathy, lumbar region Category: Medical Plan Patient is status post right L3, L4 medial branches and L5 dorsal ramus diagnostic nerve blocks. Patient tolerated procedure well and was discharged home in stable condition with discharge instructions. All questions were answered. We will follow-up via telephone or in clinic to assess response to therapy. A follow-up appointment was made during today's visit. Orders: Orders FL guidance in treatment room Today M47.816 - Spondylosis without myelopathy or radiculopathy, lumbar region Coding Level of Care Code Procedure Only Diagnoses Lumbar spondylosis M47.816 CPT Codes Facet Injection-Lumbar/Sacral - CPT: 74333 - with Fluoroscopy ([id number]) Facet Injection-Lumbar/Sacral - CPT: 66427 - second level, with Fluoroscopy ([id number])
[2024-05-25 11:39] VITALS: BP 140/73; PULSE 71; RESP 18; O2SAT 100
== END 2024-05-25 11:55 | disposition home or self-care (01) ==
LOC: HO.PMCPRC 10:12
PROVIDERS: PCP Internal Medicine; Visit Provider Internal Medicine
DX: M47.816 Spondylosis without myelopathy or radiculopathy, lumbar region (principal)
CPT/HCPCS: 64493; 64494

== ENCOUNTER 2024-06-02 13:36 | Outpatient (REF) | payer OTHER, SELFPAY ==
[2024-06-02 17:14] LABS: Iron 69 mcg/dL (30-160); Percent Iron Saturation 27 % (15-50); Total Iron Binding Capacity 256 mcg/dL (228-428); Unsaturated Iron Binding 187 ug/dL
[2024-06-02 17:28] LABS: Ferritin 345 ng/mL (10-250)
[2024-06-05 14:52] LABS: Alpha 1 Anti-trypsin 186 mg/dL (83-199); Ceruloplasmin 35 mg/dL (14-48)
[2024-06-05 18:59] LABS: Immunoglobulin A 260 mg/dL (70-320)
[2024-06-06 12:58] LABS: Transglutaminase IgA <1.0 U/mL
[2024-06-07 06:48] LABS: Mitochondrial Antibodies NEGATIVE (NEGATIVE)
[2024-06-07 13:53] LABS: Liver Kidney Microsomal Ab <=20.0 U (<=20.0)
[2024-06-08 07:10] LABS: Smooth Muscle Antibody <20 U (<20)
[2024-06-14 08:33] LABS: Anti Nuclear Antibody Screen POSITIVE (NEGATIVE)
[2024-06-14 08:43] LABS: ANA Pattern 2 Nuclear, Homogeneous
== END 2024-06-02 13:37 | disposition home or self-care (01) ==
LOC: HO.LAB 13:36
PROVIDERS: PCP Internal Medicine; Visit Provider Internal Medicine
DX: K75.81 Nonalcoholic steatohepatitis (NASH) (principal); R10.11 Right upper quadrant pain
CPT/HCPCS: 36415; 82103; 82390; 82728; 82784; 83540; 86015; 86038; 86039; 86364; 86376; 86381; 99202

== ENCOUNTER 2024-06-02 13:36 | Outpatient (AMB) | payer OTHER, SELFPAY ==
--- NOTE | 2024-06-02 13:50 | A.OFFVIS_ITS ---
Vital Signs 06/02/24 13:52 Height 5 ft 1 in Weight 211 lb 10.3 oz BMI 40.0 BP 159/69 H Blood Pressure Location Lt brachial Position Sitting Pulse 72 Intake Visit Reasons: GONGORA Intake Note: Laura presents in the office as a new patient for GONGORA. CC: Her main concern is she has had a pain in the right side. She has had MRIs of her body and her head. 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 Pt does not report any abd pain, N,V. Pt does not drink etOH. No fam hx of liver disease in FDRs. No new meds. Normal LFTs Ultrasound abdomen 04/29/2024: Increased echogenicity possible steatosis. Status post cholecystectomy. No CBD dilation. [facility], [facility] Medical History Morbid obesity with BMI of 45.0-49.9, adult Sacroiliitis Rheumatic fever TIA (transient ischemic attack) Right-sided back pain History of COVID-19 Asthma exacerbation Hospital discharge follow-up Sacroiliitis Renal calculi Costovertebral angle tenderness Burning with urination Disc degeneration, lumbar Spondylosis of cervical spine Spondylosis of lumbar spine Pleuritic pain Restrictive lung disease Morbid obesity Asthma Dyslipidemia Essential hypertension Vaginal modesta Seropositive rheumatoid arthritis Rheumatoid arthritis Diabetes Surgical History History of cholecystectomy Hx of colonoscopy (09/01/19) History of surgery on wrist Family History Father Diabetes mellitus Myocardial infarction Hypertension CVD (cardiovascular disease) Mother Diabetes mellitus CVD (cardiovascular disease) Sister No problems noted. Son No problems noted. Son No problems noted. Son No problems noted. Daughter Thyroiditis Daughter No problems noted. Daughter No problems noted. Daughter No problems noted. Daughter No problems noted. Social History Housing: Apartment Unable to assess alcohol history related to: Unknown Alcohol intake: unknown Patient Tobacco Use Status: Never used Tobacco e-Cigarette/Vaping Use: Never Used Second Hand Smoke Exposure: No service: No Current occupational status: disabled Sexual orientation: Straight/Heterosexual Gender identity: Female Cognitive needs: No Hearing needs: No Vision needs: No Female Reproductive History Menstrual Age of Menarche: 11 Date of menopause: 01/22/10 Review of Systems Const All systems reviewed & are unremarkable except as noted in HPI and below Physical Exam Vital Signs: Last Vital Signs Pulse 72 06/02/24 13:52 BP 159/69 H 06/02/24 13:52 BMI result Body Mass Index 40.0 No apparent distress Nonicteric Abdomen soft, nondistended Alert and oriented x3, normal gait Assessment & Plan Assessment & Plan (1) Right upper quadrant abdominal pain: Code(s): R10.11 - Right upper quadrant pain Category: Medical (2) NAFLD (nonalcoholic fatty liver disease): Code(s): K76.0 - Fatty (change of) liver, not elsewhere classified Category: Medical Plan Reviewed with the patient, that based on overall assessment, appears to have mas hed lb. No definite evidence of GONGORA, given normal LFTs. We will also do workup for other chronic liver diseases as below. In addition, will get an MRI which may give a better assessment of whether steatosis present or not. Follow up in 3 months Orders: Orders Ferritin 06/02/24 K75.81 - Nonalcoholic steatohepatitis (GONGORA) Ceruloplasmin 06/02/24 K75.81 - Nonalcoholic steatohepatitis (GONGORA) Liver Kidney Microsomal Ab 06/02/24 K75.81 - Nonalcoholic steatohepatitis (GONGORA) IRON PROFILE 06/02/24 K75.81 - Nonalcoholic steatohepatitis (GONGORA) Transglutaminase IgA 06/02/24 K75.81 - Nonalcoholic steatohepatitis (GONGORA) MR abdomen wo/w con 06/02/24 R10.11 - Right upper quadrant pain, K75.81 - Nonalcoholic steatohepatitis (GONGORA) HARSHA Reflex Titer and Pattern 06/02/24 K75.81 - Nonalcoholic steatohepatitis (GONGORA) Mitochondrial Antibody 06/02/24 K75.81 - Nonalcoholic steatohepatitis (GONGORA) Smooth Muscle Antibody 06/02/24 K75.81 - Nonalcoholic steatohepatitis (GONGORA) Immunoglobulin A 06/02/24 K75.81 - Nonalcoholic steatohepatitis (GONGORA) Alpha 1 Anti-trypsin 06/02/24 K75.81 - Nonalcoholic steatohepatitis (GONGORA) Coding Level of Care Code New Pt Level 4 (28244) Diagnoses Right upper quadrant abdominal pain R10.11 NAFLD (nonalcoholic fatty liver disease) K76.0
[2024-06-02 13:52] VITALS: BP 159/69; PULSE 72; BMI 40.0
== END 2024-06-02 14:47 | disposition home or self-care (01) ==
PROVIDERS: PCP Internal Medicine; Visit Provider Internal Medicine
DX: R10.11 Right upper quadrant pain (principal); K76.0 Fatty (change of) liver, not elsewhere classified
CPT/HCPCS: 99204

== ENCOUNTER 2024-06-27 17:19 | Outpatient (AMB) | payer OTHER, SELFPAY ==
--- NOTE | 2024-06-27 17:20 | A.OFFPC_ITS ---
Vital Signs 06/27/24 17:28 Height 5 ft 1 in Weight 213 lb BMI 40.2 BP 136/84 Blood Pressure Location Lt brachial Position Sitting Intake Visit Reasons: 4mth f/u Intake Note: Patient here for a 4 month follow up Cra Required: No Accompanied by: Self / Same As Patient Allergies cyclobenzaprine [From Flexeril] Allergy (Intermediate, Verified 06/27/24 17:33) Dizziness orphenadrine [From Norflex] Allergy (Intermediate, Verified 06/27/24 17:33) Dizziness sarilumab [From Kevzara] Allergy (Intermediate, Verified 06/27/24 17:33) Rash Medication List - Last Reconciled 06/27/24 by Aniyah Friend MD albuterol sulfate 90 mcg/actuation 2 inhalations PO Q4H PRN albuterol sulfate 2.5 mg (3 mL) inhalation Q4-6H PRN 30 days blood pressure monitor As directed blood pressure test kit-large As directed blood sugar diagnostic (FreeStyle Lite Strips) Use 1 test strip once a day blood-glucose meter (FreeStyle Lite Meter kit) E11.9 ONCE A DAY [cock up splint wear on the right wrist at night ] diclofenac sodium 1% (Aleve (diclofenac)) 2 grams topical QID 30 days docusate sodium (Col-Rite) 100 mg PO BID dulaglutide (Trulicity) 0.75 mg (0.5 mL) subcut QWEEK 90 days fluticasone propionate 220 mcg/actuation 2 puffs inhalation BID 30 days gabapentin 300 mg PO TID 30 days ibuprofen 600 mg PO Q8H PRN ipratropium-albuterol 20-100 mcg/actuation (Combivent Respimat) 2 puffs inhalation Q4H 30 days lancets (FreeStyle Lancets) Use 1 lancet once a day as needed lidocaine 5% 1 patch topical DAILY lisinopril 40 mg PO DAILY meclizine 50 mg PO DAILY PRN metformin 1,000 mg PO BID 90 days nabumetone 750 mg PO BID 30 days Orencia ClickJect (abatacept) 125 mg subcut QWEEK NS oxycodone 5 mg PO BID PRN pregabalin 50 mg PO BID 5 days rosuvastatin 10 mg PO DAILY 90 days sennosides (senna) 8.6 mg PO BEDTIME PRN 7 days Tobacco use date assessed: 10/25/23 Fall risk assessment: No Falls in past year Last assessed Fall Risk: 06/27/24 Dental Screening Dental Screen Date: 06/27/24 Did you have a dental visit in the last 12 months?: No Did you have a dental problem in the last 6 months where you did not have access to dental care?: No Was dental information given to patient?: Patient has dentist HPI HPI Comments History of Present Illness Details This is a 64-year-old female with diabetes mellitus type 2, seropositive rheumatoid arthritis, hypertension and morbid obesity that comes today for follow-up on her conditions. A1c within goal. On Orencia for rheumatoid arthritis which is follow by Rheumatology. Blood pressure stable. She is morbidly obese with a BMI of 40.2 and was advised to do diet and exercise to reach BMI goal less than 30. Denies any chest pain shortness on breath. Complains of abdominal pain that is follow by Gastroenterology. FORMERLY [facility], [facility] Medical History (Updated 06/27/24 @ 17:41 by Aniyah Friend MD) Morbid obesity with BMI of 45.0-49.9, adult Sacroiliitis Rheumatic fever TIA (transient ischemic attack) Right-sided back pain History of COVID-19 Asthma exacerbation Hospital discharge follow-up Sacroiliitis Renal calculi Costovertebral angle tenderness Burning with urination Disc degeneration, lumbar Spondylosis of cervical spine Spondylosis of lumbar spine Pleuritic pain Restrictive lung disease Morbid obesity Asthma Dyslipidemia Essential hypertension Vaginal modesta Seropositive rheumatoid arthritis Rheumatoid arthritis Diabetes Surgical History History of cholecystectomy Hx of colonoscopy (09/01/19) History of surgery on wrist Family History Father Diabetes mellitus Myocardial infarction Hypertension CVD (cardiovascular disease) Mother Diabetes mellitus CVD (cardiovascular disease) Sister No problems noted. Son No problems noted. Son No problems noted. Son No problems noted. Daughter Thyroiditis Daughter No problems noted. Daughter No problems noted. Daughter No problems noted. Daughter No problems noted. Social History Housing: Apartment Unable to assess alcohol history related to: Unknown Alcohol intake: unknown Patient Tobacco Use Status: Never used Tobacco e-Cigarette/Vaping Use: Never Used Second Hand Smoke Exposure: No service: No Current occupational status: disabled Sexual orientation: Straight/Heterosexual Gender identity: Female Cognitive needs: No Hearing needs: No Vision needs: No Female Reproductive History Menstrual Age of Menarche: 11 Date of menopause: 01/22/10 Questionnaire Thrive Questionnaire Date Thrive assessed: 10/25/23 SONA-7 AMB Questionnaire SONA-7 Date SONA - 7 assessed: 10/25/23 Source: Developed by Drs. Spencer Gonzalez, Anamaria Bartlett, Clayton Azar and colleagues, with an educational anna from [employer]. Review of Systems Const All systems reviewed & are unremarkable except as noted in HPI and below Card Denies chest pain at rest, Denies chest pain with activity, Denies edema, Denies irregular heart rhythm, Denies claudication, Denies dyspnea, Denies dyspnea on exertion, Denies orthopnea, Denies paroxysmal nocturnal dyspnea and Denies slow heart rate Resp Denies cough, Denies dyspnea and Denies dyspnea on exertion GI Denies abdominal pain, Denies change in bowel habits, Denies excessive flatus, Denies nausea and Denies vomiting Denies urinary incontinence, Denies urinary hesitancy and Denies urinary urgency Musc Denies atrophy, Denies deformity and Denies limited range of motion Skin/Breast Denies bleeding lesions, Denies changing lesions and Denies rash Physical exam (Primary Care) Vital Signs: Last Vital Signs BP 136/84 06/27/24 17:28 BMI result Body Mass Index 40.2 BMI Assessment/Plan discussion: High BMI High, discussed plan: lifestyle, weight reduction, dietary and physical activity Tobacco/Smoking Status: Tobacco use Status Tobacco use date assessed 10/25/23 06/27/24 17:22 Patient Tobacco Use Status Never used Tobacco 06/27/24 17:22 e-Cigarette/Vaping Use Never Used 06/27/24 17:22 Thrive Assessment: Date of Thrive Assessment Date Thrive assessed 10/25/23 06/27/24 17:22 Resp Effort & Inspection: normal respiratory effort Auscultation: clear to auscultation bilaterally Cardio Jugular venous distension: no JVD Rate: regular rate Rhythm: regular rhythm Heart sounds: S1 normal heart sound present and S2 normal heart sound present Extrem General: Yes full ROM Results AMB Hemoglobin A1c AMB Hemoglobin A1c 6.5 % Last Edit by JAMES Monge on 06/27/24 17:3 4 Results Reviewed Results Reviewed: Laboratory Last Values Hgb A1c (Clinic) 6.5 % (4.0-6.0) H 06/27/24 17:31 Assessment and Plan Assessment & Plan (1) Diabetes: Code(s): E11.9 - Type 2 diabetes mellitus without complications Qualifiers: Diabetes mellitus type: type 2 Diabetes mellitus fpc insulin use: without fpc use Diabetes mellitus complication status: with hyperglycemia Qualified Code(s): E11.65 - Type 2 diabetes mellitus with hyperglycemia Plan: Continue Trulicity. A1c goal is equal or less than 7%. (2) Seropositive rheumatoid arthritis: Comment: ++RF+++CCP dx in her 40s Humira:08/29 - 03/30 -active disease on exam Enbrel:04/29-08/30 - active disease on exam Xeljanz:08/30-12/29- active disease on exam Kevzara: 01/2021- stopped due to rash Orencia: 01/2021 - present effective MTX in the past - transaminitis Code(s): M05.9 - Rheumatoid arthritis with rheumatoid factor, unspecified Plan: Continue Orencia. Follow-up with rheumatology. (3) Essential hypertension: Code(s): I10 - Essential (primary) hypertension Plan: Continue lisinopril. Blood pressure goal is equal or less than 130/80 (4) Morbid obesity with BMI of 40.0-44.9, adult: Comment: Continues to be grossly obese, BMI= 40.4 Code(s): E66.01 - Morbid (severe) obesity due to excess calories; Z68.41 - Body mass index [BMI] 40.0-44.9, adult Plan: Start diet and exercise. BMI goal is less than 30. Orders: Orders Comprehensive Slater. 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
[2024-06-27 17:28] VITALS: BP 136/84; BMI 40.2
== END 2024-06-27 17:42 | disposition home or self-care (01) ==
PROVIDERS: PCP Internal Medicine; Visit Provider Internal Medicine
DX: E11.65 Type 2 diabetes mellitus with hyperglycemia (principal); M05.9 Rheumatoid arthritis with rheumatoid factor, unspecified; I10 Essential (primary) hypertension; E66.01 Morbid (severe) obesity due to excess calories; Z68.41 Body mass index [BMI] 40.0-44.9, adult

== ENCOUNTER → 2024-06-27 17:19 | Outpatient (BNVA) | payer OTHER, SELFPAY | PROVIDERS: PCP Internal Medicine; Visit Provider Internal Medicine | DX: E11.65 Type 2 diabetes mellitus with hyperglycemia (principal); M05.9 Rheumatoid arthritis with rheumatoid factor, unspecified; I10 Essential (primary) hypertension; E66.01 Morbid (severe) obesity due to excess calories; Z68.41 Body mass index [BMI] 40.0-44.9, adult | CPT/HCPCS: 83036; 99212 ==

== ENCOUNTER 2024-06-30 07:32 | Outpatient (AMB) | payer OTHER, SELFPAY ==
--- NOTE | 2024-06-30 07:33 | MHC.OFFVIS ---
Vital Signs 06/30/24 07:36 Height 5 ft 1 in Weight 212 lb 15.465 oz BMI 40.2 BP 132/80 Blood Pressure Location Rt brachial Position Sitting Pulse 65 Pulse Source Pulse Oximeter Pulse Oximetry (%) 99 Oxygen Delivery Method Room Air Intake Visit Reasons: RA Intake Note: Patient presents for RA. Heat Treating Furnace Tender Required: Yes Heat Treating Furnace Tender Language: Budget Coordinator Services: Heat Treating Furnace Tender Present Heat Treating Furnace Tender Name: Jacinto [id number] Allergies cyclobenzaprine [From Flexeril] Allergy (Intermediate, Verified 06/30/24 07:38) Dizziness orphenadrine [From Norflex] Allergy (Intermediate, Verified 06/30/24 07:38) Dizziness sarilumab [From Kevzara] Allergy (Intermediate, Verified 06/30/24 07:38) Rash Medication List - Last Reconciled 06/30/24 by Ely Coley MD albuterol sulfate 90 mcg/actuation 2 inhalations PO Q4H PRN albuterol sulfate 2.5 mg (3 mL) inhalation Q4-6H PRN 30 days blood pressure monitor As directed blood pressure test kit-large As directed blood sugar diagnostic (FreeStyle Lite Strips) Use 1 test strip once a day blood-glucose meter (FreeStyle Lite Meter kit) E11.9 ONCE A DAY [cock up splint wear on the right wrist at night ] diclofenac sodium 1% (Aleve (diclofenac)) 2 grams topical QID 30 days docusate sodium (Col-Rite) 100 mg PO BID dulaglutide (Trulicity) 0.75 mg (0.5 mL) subcut QWEEK 90 days fluticasone propionate 220 mcg/actuation 2 puffs inhalation BID 30 days gabapentin 300 mg PO TID 30 days ibuprofen 600 mg PO Q8H PRN ipratropium-albuterol 20-100 mcg/actuation (Combivent Respimat) 2 puffs inhalation Q4H 30 days lancets (FreeStyle Lancets) Use 1 lancet once a day as needed lidocaine 5% 1 patch topical DAILY lisinopril 40 mg PO DAILY meclizine 50 mg PO DAILY PRN metformin 1,000 mg PO BID 90 days nabumetone 750 mg PO BID 30 days Orencia ClickJect (abatacept) 125 mg subcut QWEEK NS oxycodone 5 mg PO BID PRN pregabalin 50 mg PO BID 5 days rosuvastatin 10 mg PO DAILY 90 days sennosides (senna) 8.6 mg PO BEDTIME PRN 7 days HPI Comments Details: 64yoF presents for follow-up of Seropositive deforming Rheumatoid Arthritis (RF++ CCP++). Patient stopped the Orencia about a week ago. She felt that it is not helping her back pains.. She states that her rheumatoid arthritis has been stable. She denies joint pain or swelling in her hands or feet. Her main complaint is right upper back pain. She recently had a procedure by Pain Management about a month ago. She states that it not help her much. [facility] Medical History Morbid obesity with BMI of 45.0-49.9, adult Sacroiliitis Rheumatic fever TIA (transient ischemic attack) Right-sided back pain History of COVID-19 Asthma exacerbation Hospital discharge follow-up Sacroiliitis Renal calculi Costovertebral angle tenderness Burning with urination Disc degeneration, lumbar Spondylosis of cervical spine Spondylosis of lumbar spine Pleuritic pain Restrictive lung disease Morbid obesity Asthma Dyslipidemia Essential hypertension Vaginal modesta Seropositive rheumatoid arthritis Rheumatoid arthritis Diabetes Surgical History History of cholecystectomy Hx of colonoscopy (09/01/19) History of surgery on wrist Family History Father Diabetes mellitus Myocardial infarction Hypertension CVD (cardiovascular disease) Mother Diabetes mellitus CVD (cardiovascular disease) Sister No problems noted. Son No problems noted. Son No problems noted. Son No problems noted. Daughter Thyroiditis Daughter No problems noted. Daughter No problems noted. Daughter No problems noted. Daughter No problems noted. Social History Housing: Apartment Unable to assess alcohol history related to: Unknown Alcohol intake: unknown Patient Tobacco Use Status: Never used Tobacco e-Cigarette/Vaping Use: Never Used Second Hand Smoke Exposure: No service: No Current occupational status: disabled Sexual orientation: Straight/Heterosexual Gender identity: Female Cognitive needs: No Hearing needs: No Vision needs: No Female Reproductive History Menstrual Age of Menarche: 11 Date of menopause: 01/22/10 Review of Systems [facility] [place] Reports back pain Physical Exam Vital Signs: Last Vital Signs Pulse 65 06/30/24 07:36 BP 132/80 06/30/24 07:36 Pulse Ox 99 06/30/24 07:36 Oxygen Delivery Method Room Air 06/30/24 07:36 BMI result Body Mass Index 40.2 Const General: cooperative, healthy appearing and comfortable Nutritional Appearance: obese morbidly obese Orientation/consciousness: patient oriented x3 Limitations: no limitations HEENT Head: Yes normocephalic and Yes atraumatic Mouth: moist mucous membranes Resp Effort & Inspection: normal respiratory effort and able to speak in complete sentences Neuro General: patient oriented x3 Extrem Other: Antalgic gait due to upper back pain Right wrist with significantly limited flexion and extension. (chronic) Few flexion contractures of right hand fingers No active synovitis Right foot with large bunion and fibular deviation of toes Negative MTP squeeze test bilaterally Assessment & Plan Assessment & Plan (1) Seropositive rheumatoid arthritis: Comment: ++RF+++CCP dx in her 40s Humira:08/29 - 03/30 -active disease on exam Enbrel:04/29-08/30 - active disease on exam Xeljanz:08/30-12/29- active disease on exam Kevzara: 01/2021- stopped due to rash Orencia: 01/2021 - present effective MTX in the past - transaminitis Code(s): M05.9 - Rheumatoid arthritis with rheumatoid factor, unspecified Category: Medical Plan: This is a 64-year-old female with seropositive erosive RA who presents for follow-up. Her RA is well controlled with subcu Orencia She has chronic joint deformities including limited flexion and extension in the right wrist, she has significant arthritis on right wrist x-ray. Also with flexion deformity of the left 5th DIP and right 2nd and 3rd DIP. Patient has bunion deformity and hammertoes in both feet. Patient held her Orencia last week. She felt that it was not helping her back pain. I had a long conversation with patient and her son today about the difference between rheumatoid arthritis and her spinal arthritis. I explained that I do not treat her degenerative arthritis. She already sees pain management for that. She should Continue Orencia 125 mg once weekly in order to keep her disease well controlled. Labs before next visit in 4 months (2) Spondylosis of lumbar region without myelopathy or radiculopathy: Code(s): M47.816 - Spondylosis without myelopathy or radiculopathy, lumbar region Category: Medical Plan: Follow-up with pain management (3) Restrictive lung disease: Comment: As per PFT in 2019 she has Moderate degree of restrictive lung disease most likely related to her obesity This will be helped by weight reduction. Code(s): J98.4 - Other disorders of lung Category: Medical Plan: Per Pulmonary she has received lung disease likely related to her obesity. Her CT chest did not show signs suggestive of ILD. Plan I spent 26 minutes reviewing patient's chart, evaluating patient, ordering diagnostic workup, counseling patient and documenting in the chart Orders: Orders Comprehensive Met. Panel 4 Months M05.9 - Rheumatoid arthritis with rheumatoid factor, unspecified Erythrocyte Sedimentation Rate 4 Months M05.9 - Rheumatoid arthritis with rheumatoid factor, unspecified Hepatitis A,B,C Profile 4 Months Z11.59 - Encounter for screening for other viral diseases T Spot TB 4 Months Z11.7 - Encounter for testing for latent tuberculosis infection Complete Blood Count Auto Diff 4 Months M05.9 - Rheumatoid arthritis with rheumatoid factor, unspecified C Reactive Protein 4 Months M05.9 - Rheumatoid arthritis with rheumatoid factor, unspecified Coding Level of Care Code Est Pt Level 4 (50548) Diagnoses Seropositive rheumatoid arthritis M05.9 Spondylosis of lumbar region without myelopathy or radiculopathy M47.816 Restrictive lung disease J98.4
[2024-06-30 07:36] VITALS: BP 132/80; PULSE 65; O2SAT 99; BMI 40.2
== END 2024-06-30 08:07 | disposition home or self-care (01) ==
PROVIDERS: PCP Internal Medicine; Visit Provider Student in an Organized Health Care Education/Training Program
DX: M05.79 Rheumatoid arthritis with rheumatoid factor of multiple sites without organ or systems involvement (principal); M47.816 Spondylosis without myelopathy or radiculopathy, lumbar region; J98.4 Other disorders of lung
CPT/HCPCS: 99214

== ENCOUNTER → 2024-06-30 07:32 | Outpatient (BNVA) | payer OTHER, SELFPAY | PROVIDERS: PCP Internal Medicine; Visit Provider Student in an Organized Health Care Education/Training Program | DX: M05.9 Rheumatoid arthritis with rheumatoid factor, unspecified (principal); M47.816 Spondylosis without myelopathy or radiculopathy, lumbar region; J98.4 Other disorders of lung | CPT/HCPCS: 99212 ==

== ENCOUNTER 2024-07-06 12:57 | Outpatient (AMB) | payer OTHER, SELFPAY ==
--- NOTE | 2024-07-06 12:59 | A.OFFVIS_ITS ---
Vital Signs 07/06/24 13:02 Height 5 ft 1 in Weight 260 lb BMI 49.1 BP 139/73 Blood Pressure Location Rt brachial Position Sitting Pulse 78 Pulse Source Pulse Oximeter Pulse Oximetry (%) 97 Oxygen Delivery Method Room Air Intake Visit Reasons: FOLLOW UP AFTER PROCEDURE Intake Note: Pain today 05/20 Accounting Associate Required: Yes Accounting Associate Language: Public Works Commissioner Services: Accounting Associate Present (Boom #[id number]) Accompanied by: Self / Same As Patient Allergies cyclobenzaprine [From Flexeril] Allergy (Intermediate, Verified 07/06/24 13:03) Dizziness orphenadrine [From Norflex] Allergy (Intermediate, Verified 07/06/24 13:03) Dizziness sarilumab [From Kevzara] Allergy (Intermediate, Verified 07/06/24 13:03) Rash HPI Comments Details: Patient presents today for follow up for right sided mid back pain. fleet coordinator was utilized during this encounter. She was last seen in our office on 05/25/[address] Mcleod for right diagnostic L3-L4 DR L5 MBB but was no show on 06/05/24 for post injections follow up. She reports injections significantly alleviated her right lower back pain, at least 50% pain relief for one day. However, she reports right sided mid back pain that encircles her right flank and abdomen area. She is also seeing GI provider for RUQ pain with pending imaging. Patient visit ER in April 2024 for right flank pain with no acute findings. Ribs x-ray imaging was unremarkable. She does have small fat- containing umbilical hernia. Denies any fever or chills, shortness of breath, dyspnea, chest pain, cough, cold symptoms, weakness, abdominal pain, groin pain, bladder or bowel dysfunction or saddle anesthesia. PRIOR: Patient presents today for follow up for ongoing right sided back pain with radiation into her right buttock and right lateral hip and lower extremity with numbness and tingling. She presents today with elevated BP and headache. Reports taking lisinopril 10 mg which patient states was recently increased up from 5 mg. Denies chest pain, tightness or pressure, or shortness breaths. Patient denies seeking medical evaluation at ER and states she will follow up with her PCP regarding elevated BP. Patient reports she was not able to start physical therapy due to significant pain. She is interested to undergo repeat lumbar medial branch blocks for potential RFA procedure. In October 2022, patient had unilateral right diagnostic L2-L3 L4 does ramus L5 medial branch block with 100% pain relief in the area of the injections. She also has right sacroiliac joint pain and radicular right leg pain. Pain affects her daily functioning, mobility and sleep. She continues to take Tylenol, Motrin, and lidocaine patches with continued symptoms. Denies any fever, abdominal or groin pain, bladder or bowel dysfunction or saddle anesthesia. PRIOR: Patient presents today for follow up for right sided thoracic back pain. She had follow up with Neurosurgery and was deemed non-surgical. Patient reports diffuse body pain, mostly throughout her whole back including her upper, middle and lower back. The middle of her back on the right side affect her the most. Pain increases with movements, ADLs, coughing or sleeping on her right side. She has a mild to moderate degenerative disc at L5-S1 per most recent lumbar spine MRI and stable 6 mm right pulmonary nodule per CT scan in 2022 for which she follows with Pulmonology. Patient was sent for thoracic spine xray by her PCP last year, this has not been completed yet. Patient also sees Rheumatology and takes Orencia. Reports recent home fasting blood sugar of 133 yesterday morning. Most recent A1C=9.0 per 09/23/23. Denies any fever, dizziness, dyspnea, shortness of breaths, chest pain, hemoptysis, weakness, bladder or bowel dysfunction or saddle anesthesia. PRIOR: Patient present today for follow up for worsening of low back pain with right sided radiculopathy symptoms. She reports mild to moderate pain relief in March and April since previous injection in February, B/L L5-S1 TFESI. Denies any recent trauma, injury or falls. She ambulates with slow antalgic gait with mild limping to shift her weight to the left side. Patient reports neck through lower back pain that travels into her right buttock, thigh and into right calf and left heel and foot with numbness, tingling and occasional weakness with prolonged walking. She also reports severe back pain with bending forward or lifting and avoids bending down as she is not able to get up from bending due to severe radiculopathy. Patient reports she is able to tolerate 20 minutes of walking or less before she needs to rest due to pain increase. Patient also has seropositive rheumatoid arthritis and states widespread joint pain as well. She is no longer interested with injections, especially cortisone injections due to diabetes and as well as low efficacy of injections in the past. Most recent A1C was 7.0. Patient rates her pain 9/10. Denies any fever, dizziness, chest pain, shortness of breath, foot drop, bladder or bowel incontinence, or saddle anesthesia. [facility] Medical History Morbid obesity with BMI of 45.0-49.9, adult Sacroiliitis Rheumatic fever TIA (transient ischemic attack) Right-sided back pain History of COVID-19 Asthma exacerbation Hospital discharge follow-up Sacroiliitis Renal calculi Costovertebral angle tenderness Burning with urination Disc degeneration, lumbar Spondylosis of cervical spine Spondylosis of lumbar spine Pleuritic pain Restrictive lung disease Morbid obesity Asthma Dyslipidemia Essential hypertension Vaginal modesta Seropositive rheumatoid arthritis Rheumatoid arthritis Diabetes Surgical History History of cholecystectomy Hx of colonoscopy (09/01/19) History of surgery on wrist Family History Father Diabetes mellitus Myocardial infarction Hypertension CVD (cardiovascular disease) Mother Diabetes mellitus CVD (cardiovascular disease) Sister No problems noted. Son No problems noted. Son No problems noted. Son No problems noted. Daughter Thyroiditis Daughter No problems noted. Daughter No problems noted. Daughter No problems noted. Daughter No problems noted. Social History Housing: Apartment Unable to assess alcohol history related to: Unknown Alcohol intake: unknown Patient Tobacco Use Status: Never used Tobacco e-Cigarette/Vaping Use: Never Used Second Hand Smoke Exposure: No service: No Current occupational status: disabled Sexual orientation: Straight/Heterosexual Gender identity: Female Cognitive needs: No Hearing needs: No Vision needs: No Female Reproductive History Menstrual Age of Menarche: 11 Date of menopause: 01/22/10 Review of Systems Const All systems reviewed & are unremarkable except as noted in HPI and below Physical Exam Vital Signs: Last Vital Signs Pulse 78 07/06/24 13:02 BP 139/73 07/06/24 13:02 Pulse Ox 97 07/06/24 13:02 Oxygen Delivery Method Room Air 07/06/24 13:02 BMI result Body Mass Index 49.1 General: Appears afebrile. Alert and oriented. Mood and affect appropriate. Follows and participates in conversation appropriately. Respiratory effort is unlabored. Non productive cough. Able to transition from sit to stand unassisted. Uses cane with ambulation. Ambulates with bilaterally normal heel strike and toe off. Chest Chest palpation & inspection: normal inspection of the chest and no localized rib tenderness Resp Effort & Inspection: normal respiratory effort, able to speak in complete sentences, normal respiratory pattern, no cough, no respiratory distress and symmetric chest movement General: Yes no CVA tenderness Back/Spine/Pelvis Other: Limited thoracolumbar ROM due to pain. Antalgic gait due to mid and upper back pain. Lumbar extension and flexion reproduces moderate pain. Demonstrates 5/5 left and 4/5 right strength of quadriceps bilaterally as well as flexion/do rsiflexion of bilateral feet against resistance. 2+ pedal pulses bilaterally. Diminished patellar and Achilles reflexes bilaterally. Facet loading test positive bilaterally. Chacho's test reproduces right lateral hip pain and mild low back pain. Stinchfield test positive on the right. Positive Leonela sign bilaterally. Back: no CVA tenderness Cervical Spine: cervical muscular tenderness, pain with cervical ROM, No Cervical spine tenderness and No step off deformity Thoracic/Lumbar Spine: thoracic and lumbar spine normal to inspection, No Thoracic/lumbar spine scar(s), Lasegue's sign positive on the right and localized, pain with thoraco-lumbar ROM, paraspinal muscle tenderness on the right (reports pain radiates to flank and RUQ) in the mid thoracic and in the upper lumbar, thoraco-lumbar ROM limited, No thoracic spinal tenderness and lumbar spinal tenderness at L4 and at L5 Pelvis: buttock tenderness (right worse than the left) bilaterally Sacroiliac joints: bilaterally (right>left) tender to palpation Results Reviewed Results Reviewed: US abdomen limited 04/29/24 IMPRESSION: 1. Increased liver parenchymal echogenicity is nonspecific but most commonly on the basis of diffuse hepatocellular disease such as hepatic steatosis. 2. Status post cholecystectomy. XR ribs RT min 3V w CXR1V 04/23/[address] IM[address]: [address] abdomen pelvis wo IV co 04/17/24 ABDOMINAL WALL: Small fat-containing umbilical hernia. LYMPH NODES: Normal. VASCULAR: Unremarkable. PELVIC VISCERA: Unremarkable. OSSEOUS STRUCTURES: Multilevel degenerative spondylosis spine. IMPRESSION: No acute abnormality CT scan abdomen pelvis. CT ABDOMEN AND PELVIS WITH CONTRAST 03/06/24 OSSEOUS STRUCTURES: Multilevel degenerative changes of the thoracolumbar and lumbosacral spine XR THORACIC SPINE 02/04/24 CLINICAL INFORMATION: Radiculopathy, thoracic region FINDINGS: There are small riblets extending off the T12 vertebral body. There is no fracture or bone destruction there is mild kyphosis There is multilevel disc space narrowing. There is no abnormality of the paraspinal soft tissues. Incidental note is made of degenerative disc disease in the lower cervical spine. IMPRESSION: 1. Mild kyphosis. 2. Multilevel degenerative disc disease. 3. Degenerative disc disease in the lower cervical spine. MR LUMBAR SPINE WITHOUT CONTRAST 08/23/23 CLINICAL INFORMATION: Vertebrogenic back pain. COMPARISON: Lumbar spine MRI 08/11/2022. TECHNIQUE: MRI of the lumbar spine was obtained using routine sequences without contrast. FINDINGS: There is transitional spinal anatomy at the lumbosacral junction with a subdural sacralization of the L5 vertebral segment. The lowest rib-bearing vertebral segment will be designated T12. There is grade 1 anterolisthesis of L4 on L5. Alignment is otherwise normal. Vertebral heights are preserved. No acute bone marrow signal changes. There are mixed degenerative endplate changes at multiple levels. There is loss of intervertebral disc height and T2 signal intensity at L3-L4 and L4-L5. There is disc desiccation at multiple additional levels without substantial loss of intervertebral disc height. The tip of the conus medullaris is located at L1. No mass effect on the conus. Visualized distal cord signal intensity is normal. At T12-L1 the annular contour is normal. No canal or neuroforaminal compromise. At L1-L2 there is a slightly bulging disc. Bilateral facet degenerative change. No canal stenosis. No mass effect on the traversing or foraminal nerve roots. At L2-L3 there is a bulging disc. Bilateral facet degenerative change. Moderate canal stenosis. No mass effect on the traversing or foraminal nerve roots. At L3-L4 there is a diffusely bulging disc. Bilateral facet degenerative change. Moderate canal stenosis. Mild mass effect on the right L3 foraminal nerve root. At L4-L5 there is a bulging disc. Bilateral facet degenerative change. Moderate canal stenosis. Subarticular zone narrowing causes abutment of both traversing L5 nerve roots. No foraminal nerve root compression. At L5-S1 there is no canal or neuroforaminal compromise. Limited visualization the retroperitoneal anatomy reveals no abnormal finding. Psoas and paraspinal muscle groups are symmetric. IMPRESSION: There is transitional spinal anatomy at the lumbosacral junction with partial sacralization of the L5 vertebral segment. The lowest rib-bearing vertebral segment will be designated T12. There is multilevel degenerative spondylosis of the lumbar spine with grade 1 anterolisthesis of L4 on L5 related to facet degenerative changes at this level. Moderate canal stenosis at L2-L3, L3-L4, and L4-L5. A bulging disc in conjunction with facet degenerative change at L3-L4 causes mild mass effect on the right L3 foraminal nerve root. There is also abutment of both traversing L5 nerve roots related to degenerative changes at L4-L5. CT/CT chest w IV con 02/17/23 OSSEOUS STRUCTURES: Degenerative changes of the spine. IMPRESSION: Stable 6 mm right pulmonary nodule adjacent to the minor fissure probably representing a subpleural lymph node. Question mild interstitial lung disease. Assessment & Plan Assessment & Plan (1) Thoracic spine pain: Comment: CHRONIC BACK PAIN AND NOW MORE CONFINED TO THE RIGHT CHEST WALL, IS PROBABLY RELATED TO CHRONIC DEGENERATIVE ARTHRITIS OF THE SPINE Code(s): M54.6 - Pain in thoracic spine Category: Medical (2) Thoracic radiculopathy: Code(s): M54.14 - Radiculopathy, thoracic region Category: Medical Plan MRI of the thoracic spine to assess for neural integrity and compression. Patient will return to the clinic to discuss results of the MRI findings when it is done and consider interventional therapy as indicated. Refill sent for gabapentin per patient request. All questions and concerns have been answered and patient agreed with the treatment plan. Follow-up for MRI results and sooner as needed. Orders: Orders MR thoracic spine wo con 07/06/24 M54.14 - Radiculopathy, thoracic region, M54.6 - Pain in thoracic spine Medications: Refilled gabapentin 300 mg PO TID 30 days 90 caps 6RF pain M47.816 - Spondylosis without myelopathy or radiculopathy, lumbar region, M54.14 - Radiculopathy, thoracic region, M54.6 - Pain in thoracic spine Discontinued oxycodone Partial Fill upon patient request. Discontinued Reason: Patient Completed Course 5 mg PO BID PRN 10 tabs 0RF pain pregabalin Discontinued Reason: Patient no longer taking 50 mg PO BID 5 days 10 caps 0RF Coding Level of Care Code Est Pt Level 4 (44522) Complex EM visit Add On G2861 Diagnoses Thoracic spine pain M54.6 Thoracic radiculopathy M54.14
[2024-07-06 13:02] VITALS: BP 139/73; PULSE 78; O2SAT 97; BMI 49.1
== END 2024-07-06 13:27 | disposition home or self-care (01) ==
PROVIDERS: PCP Internal Medicine; Visit Provider Nurse Practitioner Family
DX: M54.6 Pain in thoracic spine (principal); M54.14 Radiculopathy, thoracic region
CPT/HCPCS: 99214; G2211

== ENCOUNTER → 2024-07-06 12:57 | Outpatient (BNVA) | payer OTHER, SELFPAY | PROVIDERS: PCP Internal Medicine; Visit Provider Nurse Practitioner Family | DX: M54.6 Pain in thoracic spine (principal); M54.14 Radiculopathy, thoracic region | CPT/HCPCS: 99212 ==

== ENCOUNTER 2024-07-11 12:44 | Emergency (ER) | payer OTHER, SELFPAY ==
[2024-07-11 13:14] VITALS: BP 145/95; PULSE 92; RESP 18; TEMP 37; O2SAT 98; BMI 40.2
--- NOTE | 2024-07-11 13:22 | ED.GENADULT ---
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 Patient reports left ear pain for the last 2 days Patient denies any drainage from the ear. She also has pain to the left side of the face Denies anything in ear. She reports pain with opening and closing her mouth Related Data Home Medications ?Medication ?Instructions ?Recorded ?Confirmed blood pressure test kit-large #1 ea 06/02/24 06/27/24 Previous Rx's ?Medication ?Instructions ?Recorded albuterol sulfate 90 mcg/actuation 2 inh PO Q4H PRN shortness of 08/13/20 aerosol inhaler breath or wheezing #8.5 grams docusate sodium 100 mg capsule 100 mg PO BID #30 caps 12/07/22 (Col-Rite) blood sugar diagnostic (FreeStyle #50 ea 02/10/23 Lite Strips) blood-glucose meter (FreeStyle #1 ea 02/10/23 Lite Meter kit) lancets 28 gauge (FreeStyle #100 ea 02/10/23 Lancets) cock up splint #1 ea 03/03/23 albuterol sulfate 2.5 mg/3 mL 2.5 mg (3 mL) inhalation Q4-6H PRN 06/29/23 (0.083 %) solution for nebulization shortness of breath or wheezing 30 days #90 mL metformin 1,000 mg tablet 1,000 mg PO BID 90 days #180 tabs 06/29/23 Orencia ClickJect 125 mg/mL 125 mg subcut QWEEK #4 mL 02/07/24 subcutaneous auto-injector (abatacept) blood pressure monitor #1 ea 02/07/24 fluticasone propionate 220 2 puff inhalation BID asthma 30 02/23/24 mcg/actuation HFA aerosol inhaler days #12 grams ipratropium 20 mcg-albuterol 100 2 puff inhalation Q4H ASTHMA/COUGH 02/23/24 mcg/actuation mist for inhalation 30 days #4 grams (Combivent Respimat) nabumetone 750 mg tablet 750 mg PO BID 30 days #60 tabs 03/30/24 lidocaine 5 % topical patch 1 patch topical DAILY #30 ea 04/07/24 dulaglutide 0.75 mg/0.5 mL 0.75 mg (0.5 mL) subcut QWEEK 90 04/20/24 subcutaneous pen injector days #6.5 mL (Trulicity) rosuvastatin 10 mg tablet 10 mg PO DAILY 90 days #90 tabs 04/20/24 sennosides 8.6 mg tablet (senna) 8.6 mg PO BEDTIME PRN constipation 04/20/24 7 days #7 tabs ibuprofen 600 mg tablet 600 mg PO Q8H PRN pain #14 tabs 04/23/24 lisinopril 40 mg tablet 40 mg PO DAILY #90 tabs 04/23/24 meclizine 50 mg tablet 50 mg PO DAILY PRN motion sickness 04/23/24 #14 tabs diclofenac sodium 1 % topical gel 2 g topical QID 30 days #100 grams 05/15/24 (Aleve (diclofenac)) gabapentin 300 mg capsule 300 mg PO TID pain 30 days #90 caps 07/06/24 amoxicillin 875 mg-potassium 1 tab PO BID #14 tabs 07/11/24 clavulanate 125 mg tablet ogasdnnn-kvenqv-CO-thonzonm 3.3 5 drp otic (ear) left QID #10 mL 07/11/24 mg-3 mg-10 mg-0.5 mg/mL ear drops,susp (Cortisporin-TC) Allergies Allergy/AdvReac Type Severity Reaction Status Date / Time cyclobenzaprine Allergy Intermediate Dizziness Verified 07/11/24 13:15 [From Flexeril] orphenadrine [From Norflex] Allergy Intermediate Dizziness Verified 07/11/24 13:15 sarilumab [From Kevzara] Allergy Intermediate Rash Verified 07/11/24 13:15 Review of Systems Constitutional: Constitutional: Denies body ache(s), Denies chills and Denies fever(s) Eyes: Eyes: Denies blurry vision ENT: Denies ear discharge and Reports otalgia Cardiovascular: Cardiovascular: Denies chest pain and Denies dyspnea Respiratory: Respiratory: Denies cough and Denies dyspnea Gastrointestinal: Gastrointestinal: Denies abdominal pain, Denies nausea and Denies vomiting Musculoskeletal: Musculoskeletal: Denies back pain Integumentary/Breasts: Skin/Breast: Denies rash PMFSH Past Medical History Medical History Morbid obesity with BMI of 45.0-49.9, adult Sacroiliitis Rheumatic fever TIA (transient ischemic attack) Right-sided back pain History of COVID-19 Asthma exacerbation Hospital discharge follow-up Sacroiliitis Renal calculi Costovertebral angle tenderness Burning with urination Disc degeneration, lumbar Spondylosis of cervical spine Spondylosis of lumbar spine Pleuritic pain Restrictive lung disease Morbid obesity Asthma Dyslipidemia Essential hypertension Vaginal modesta Seropositive rheumatoid arthritis Rheumatoid arthritis Diabetes Surgical History History of cholecystectomy Hx of colonoscopy (09/01/19) History of surgery on wrist Family History Family History Father Diabetes mellitus Myocardial infarction Hypertension CVD (cardiovascular disease) Mother Diabetes mellitus CVD (cardiovascular disease) Sister No problems noted. Son No problems noted. Son No problems noted. Son No problems noted. Daughter Thyroiditis Daughter No problems noted. Daughter No problems noted. Daughter No problems noted. Daughter No problems noted. Social History Social History Housing: Apartment Unable to assess alcohol history related to: Unknown Alcohol intake: unknown Patient Tobacco Use Status: Never used Tobacco e-Cigarette/Vaping Use: Never Used Second Hand Smoke Exposure: No Advance Directives: No Do you have a plan to hurt others: No Plan service: No Current occupational status: disabled Sexual orientation: Straight/Heterosexual Gender identity: Female Cognitive needs: No Hearing needs: No Vision needs: No Physical Exam ED Vital Signs: Vital Signs - 24 hr 07/11/24 13:14 07/11/24 13:34 Temperature 98.6 F 98.6 F Pulse Rate 92 92 Respiratory Rate 18 18 Blood Pressure 145/95 H 145/95 H Pulse Oximetry 98 98 Oxygen Delivery Method Room Air Room Air BMI result Body Mass Index 40.2 Const General: healthy appearing, comfortable, no acute distress, alert and awake Nutritional Appearance: well nourished Orientation/consciousness: patient oriented x3 HENMT Other: Patient has mild left external ear canal edema. There is no otorrhea. The left TM is intact, there is mild injection, no significant bulging. No mastoid tenderness or edema Head: Yes normocephalic and Yes atraumatic Ears: TM's abnormal bilaterally and left TM abnormal Mouth: Normal oral and palatal mucosa present, lip normal, tongue normal, no drooling and no trismus Eyes Eyelids: Yes eyelids normal Conjunctivae: conjunctivae normal Sclerae: sclerae normal Corneas: corneas normal Pupils: Equal, round and reactive pupils present EOM: EOMs intact bilaterally Neck Neck: Yes full ROM Resp Effort & Inspection: normal respiratory effort, able to speak in complete sentences and not labored Cardio Rate: regular rate Rhythm: regular rhythm GI Inspection: No distended Palpation (GI): Soft to palpation, not firm, nontender, no guarding and not rigid Skin General skin exam: elasticity normal Neuro General: patient oriented x3 Cranial nerves: Yes Equal, round and reactive pupils present and Yes Bilaterally intact EOM present Cognition (Neuro): normal cognition Extrem Other: Moving all extremities well without any obvious deformities Medical Decision Making Medical Decision Making [facility] Narrative: Patient has evidence of both otitis externa and otitis media. Especially when compared to the opposite side. We will treat with both Augmentin and ciprofloxacin otic drops no evidence of mastoiditis Differential Diagnosis Differential Diagnoses: The differential diagnosis associated with the presentation includes Left ear pain Otitis media Otitis externa Mastoiditis Discharge Plan Discharge Clinical Impression: Otitis externa Patient Disposition: Home, Self-Care Instructions: Otitis Externa (ED) Additional Instructions: You have evidence of otitis externa Use the antibiotic ear drops as directed Follow-up with your primary doctor, return for new or worsening symptoms Prescriptions: New amoxicillin-pot clavulanate 875-125 mg tablet 1 tab PO BID Qty: 14 0RF Cortisporin-TC 3.3-3-10-0.5 mg/mL drops,suspension 5 drp otic (ear) left QID Qty: 10 0RF No Action albuterol sulfate 90 mcg/actuation HFA aerosol inhaler 2 inh PO Q4H PRN (Reason: shortness of breath or wheezing) Qty: 8.5 1RF (DME) FreeStyle Lite Strips Strip See Rx Instructions .ROUTE .MEDSUPPLY Qty: 50 11RF Rx Instructions: Use 1 test strip once a day (DME) blood-glucose meter [FreeStyle Lite Meter] Kit See Rx Instructions .ROUTE .MEDSUPPLY Qty: 1 0RF Rx Instructions: E11.9 ONCE A DAY (DME) lancets [FreeStyle Lancets] 28 gauge misc See Rx Instructions .ROUTE .MEDSUPPLY Qty: 100 11RF Rx Instructions: Use 1 lancet once a day as needed albuterol sulfate 2.5 mg /3 mL (0.083 %) solution for nebulization 2.5 mg inhalation Q4-6H PRN (Reason: shortness of breath or wheezing) 30 Days Qty: 90 2RF Orencia ClickJect 125 mg/mL auto-injector 125 mg subcut QWEEK Qty: 4 2RF (DME) blood pressure monitor Kit See Rx Instructions .Route Qty: 1 0RF Rx Instructions: As directed rosuvastatin 10 mg tablet 10 mg PO DAILY 90 Days Qty: 90 1RF diclofenac sodium [Aleve (diclofenac)] 1 % gel 2 g topical QID 30 Days Qty: 100 0RF Rx Instructions: apply to single elbow, wrist or hand; for hand includes palm/fingers/back of hand docusate sodium [Col-Rite] 100 mg capsule 100 mg PO BID Qty: 30 0RF lisinopril 40 mg tablet 40 mg PO DAILY Qty: 90 0RF meclizine 50 mg tablet 50 mg PO DAILY PRN (Reason: motion sickness) Qty: 14 0RF ibuprofen 600 mg tablet 600 mg PO Q8H PRN (Reason: pain) Qty: 14 0RF lidocaine 5 % adhesive patch,medicated 1 patch topical DAILY Qty: 30 0RF Rx Instructions: leave on most painful area for up to 12 hrs Trulicity 0.75 mg/0.5 mL pen injector 0.75 mg subcut QWEEK 90 Days Qty: 6.5 0RF sennosides [senna] 8.6 mg tablet 8.6 mg PO BEDTIME PRN (Reason: constipation) 7 Days Qty: 7 0RF nabumetone 750 mg tablet 750 mg PO BID 30 Days Qty: 60 6RF metformin 1,000 mg tablet 1,000 mg PO BID 90 Days Qty: 180 1RF Combivent Respimat 20-100 mcg/actuation mist 2 puff inhalation Q4H 30 Days Qty: 4 3RF fluticasone propionate 220 mcg/actuation HFA aerosol inhaler 2 puff inhalation BID 30 Days Qty: 12 5RF Rx Instructions: administer with spacer (DME) blood pressure test kit-large Kit See Rx Instructions .ROUTE .MEDSUPPLY Qty: 1 Rx Instructions: As directed (DME) cock up splint See Rx Instructions .Route .MEDSUPPLY Qty: 1 0RF Rx Instructions: wear on the right wrist at night gabapentin 300 mg capsule 300 mg PO TID 30 Days Qty: 90 6RF Interventions: ED Discharge Assessment Last Done: 07/11/24 13:34 Discharge Date/Time: 07/11/24 13:35 Print Language: Malaysian
[2024-07-11 13:34] VITALS: BP 145/95; PULSE 92; RESP 18; TEMP 37; O2SAT 98
== END 2024-07-11 13:35 | disposition home or self-care (01) ==
PROVIDERS: Emergency Provider Emergency Medicine; PCP Internal Medicine
DX: H60.92 Unspecified otitis externa, left ear (principal); H92.02 Otalgia, left ear; E11.9 Type 2 diabetes mellitus without complications; I10 Essential (primary) hypertension; E78.5 Hyperlipidemia, unspecified
CPT/HCPCS: 99282; 99283

== ENCOUNTER 2024-07-26 14:00 | Outpatient (AMB) | payer OTHER, SELFPAY ==
[2024-07-26 14:25] VITALS: BP 132/88; BMI 40.0
--- NOTE | 2024-07-26 14:25 | A.OFFVIS_ITS ---
Vital Signs 07/26/24 14:25 Height 5 ft 1 in Weight 211 lb 10.3 oz BMI 40.0 BP 132/88 Intake Visit Reasons: [employer] annual exam/DO NOT RS x2 Allergies cyclobenzaprine [From Flexeril] Allergy (Intermediate, Verified 07/11/24 13:15) Dizziness orphenadrine [From Norflex] Allergy (Intermediate, Verified 07/11/24 13:15) Dizziness sarilumab [From Kevzara] Allergy (Intermediate, Verified 07/11/24 13:15) Rash HPI Comments Details: Presenting for annual exam. No complaints. Last Pap/HPV was negative in 12/01 Last Mammogram was BI-RADS 2 in 06/03 Last Colonoscopy was done in 08/29, the recommendation to repeat in 10 years [facility] Medical History Morbid obesity with BMI of 45.0-49.9, adult Sacroiliitis Rheumatic fever TIA (transient ischemic attack) Right-sided back pain History of COVID-19 Asthma exacerbation Hospital discharge follow-up Sacroiliitis Renal calculi Costovertebral angle tenderness Burning with urination Disc degeneration, lumbar Spondylosis of cervical spine Spondylosis of lumbar spine Pleuritic pain Restrictive lung disease Morbid obesity Asthma Dyslipidemia Essential hypertension Vaginal modesta Seropositive rheumatoid arthritis Rheumatoid arthritis Diabetes Surgical History History of cholecystectomy Hx of colonoscopy (09/01/19) History of surgery on wrist Family History Father Diabetes mellitus Myocardial infarction Hypertension CVD (cardiovascular disease) Mother Diabetes mellitus CVD (cardiovascular disease) Sister No problems noted. Son No problems noted. Son No problems noted. Son No problems noted. Daughter Thyroiditis Daughter No problems noted. Daughter No problems noted. Daughter No problems noted. Daughter No problems noted. Social History Housing: Apartment Unable to assess alcohol history related to: Unknown Alcohol intake: unknown Patient Tobacco Use Status: Never used Tobacco e-Cigarette/Vaping Use: Never Used Second Hand Smoke Exposure: No service: No Current occupational status: disabled Sexual orientation: Straight/Heterosexual Gender identity: Female Cognitive needs: No Hearing needs: No Vision needs: No Female Reproductive History Menstrual Age of Menarche: 11 Date of menopause: 01/22/10 Review of Systems Const All systems reviewed & are unremarkable except as noted in HPI and below Card Reports as per HPI Resp Reports as per HPI GI Reports as per HPI and Reports no additional complaints Reports as per HPI Physical Exam Vital Signs: Last Vital Signs BP 132/88 07/26/24 14:25 BMI result Body Mass Index 40.0 Const General: cooperative, healthy appearing and comfortable Chest Chest palpation & inspection: normal inspection of the chest and normal palpation of entire chest wall Breast/axilla inspection: normal inspection of the breasts and normal inspection of the axillae Breast/axilla palpation: normal palpation of the breasts, normal palpation of the axillae and no axillary lymphadenopathy Resp Effort & Inspection: normal respiratory effort Auscultation: clear to auscultation bilaterally Percussion: percussion normal Cardio Palpation: normal PMI Rate: regular rate Rhythm: regular rhythm Heart sounds: no murmurs and no rubs Peripheral pulses: Peripheral pulses 2+ throughout GI Inspection: Yes normal to inspection Palpation (GI): Soft to palpation, nontender, no guarding, not rigid and No hepatosplenomegaly present Percussion: Yes normal to percussion Auscultation: normal bowel sounds Rectal Exam - Female: deferred General: Yes bladder normal to palpation External Female Exam: No lesion Speculum Exam - Vagina: normal appearance of the vagina, normal palpation, normal vaginal discharge and not erythematous Speculum Exam - Cervix: normal appearance of the cervix and normal palpation Bimanual exam- vagina & uterus: normal bimanual exam, normal palpation, uterine size normal, bladder normal to palpation, consistency normal and normal palpation Bimanual Exam- Adnexa, other: normal adnexae, no masses and no tenderness Assessment & Plan Assessment & Plan (1) Well woman exam: Code(s): Z01.419 - Encounter for gynecological examination (general) (routine) without abnormal findings Category: Medical Plan: Co testing not indicated this year. Counseled the patient about the recommended dietary allowance of 1200 mg of Calcium & 600 IU of vitamin D. Instructions given to patient to schedule next screening Mammogram in 06/04. The patient was instructed to perform monthly self-breast exams and schedule annual exam in a year. All questions answered and the patient verbalized understanding. (2) Pelvic pressure in female: Code(s): R10.2 - Pelvic and perineal pain Category: Medical Plan: Urine dip done in the office was negative fever pelvic ultrasound ordered. Instructions given the patient to schedule an ultrasound and a follow-up appoi ntment afterwards. All questions answered, the patient verbalized understand Orders: Orders US pelvic and transvaginal Today R10.2 - Pelvic and perineal pain Coding Level of Care Code Est Pt Prev Care 40-64y(77761) Diagnoses Well woman exam Z01.419 Pelvic pressure in female R10.2
== END 2024-07-26 14:53 | disposition home or self-care (01) ==
LOC: HO.HWS 14:00
PROVIDERS: PCP Internal Medicine; Visit Provider Obstetrics & Gynecology
DX: Z01.419 Encounter for gynecological examination (general) (routine) without abnormal findings (principal); R10.2 Pelvic and perineal pain
CPT/HCPCS: 99396

== ENCOUNTER → 2024-07-26 14:00 | Outpatient (BNVA) | payer OTHER, SELFPAY | PROVIDERS: PCP Internal Medicine; Visit Provider Obstetrics & Gynecology | DX: Z01.419 Encounter for gynecological examination (general) (routine) without abnormal findings (principal); R10.2 Pelvic and perineal pain | CPT/HCPCS: 99396 ==

== ENCOUNTER 2024-07-31 15:20 | Outpatient (AMB) | payer OTHER, SELFPAY ==
--- NOTE | 2024-07-31 15:25 | A.OFFVIS_ITS ---
Vital Signs 07/31/24 15:31 Height 5 ft 1 in Weight 215 lb 2 oz BMI 40.6 BP 159/76 H Blood Pressure Location Rt brachial Position Sitting Pulse 79 Pulse Source Pulse Oximeter Pulse Oximetry (%) 98 Oxygen Delivery Method Room Air Intake Visit Reasons: Discuss MRI Results Intake Note: Pain today 05/20 Corrections Corporal Required: Yes Corrections Corporal Language: Hospice Music Therapy Name: Hung #[id number] Allergies cyclobenzaprine [From Flexeril] Allergy (Intermediate, Verified 07/11/24 13:15) Dizziness orphenadrine [From Norflex] Allergy (Intermediate, Verified 07/11/24 13:15) Dizziness sarilumab [From Kevzara] Allergy (Intermediate, Verified 07/11/24 13:15) Rash HPI Comments Details: Patient presents today for follow-up for thoracic spine MRI results review. jig mill operator was utilized during this encounter. Patient continues to endorse right-sided mid back pain with radiation to the lower neck and right upper extremity into right hand with significant right 4th and 5th weakness, tingling and numbness. Denies any fever or chills, shortness of breath, dyspnea, chest pain, cough, cold symptoms, bladder or bowel dysfunction or saddle anesthesia. PRIOR: Patient presents today for follow up for right sided mid back pain. jig mill operator was utilized during this encounter. She was last seen in our office on 05/25/[address] Mcleod for right diagnostic L3-L4 DR L5 MBB but was no show on 06/05/24 for post injections follow up. She reports injections significantly alleviated her right lower back pain, at least 50% pain relief for one day. However, she reports right sided mid back pain that encircles her right flank and abdomen area. She is also seeing GI provider for RUQ pain with pending imaging. Patient visit ER in April 2024 for right flank pain with no acute findings. Ribs x-ray imaging was unremarkable. She does have small fat- containing umbilical hernia. Denies any fever or chills, shortness of breath, dyspnea, chest pain, cough, cold symptoms, weakness, abdominal pain, groin pain, bladder or bowel dysfunction or saddle anesthesia. PRIOR: Patient presents today for follow up for ongoing right sided back pain with radiation into her right buttock and right lateral hip and lower extremity with numbness and tingling. She presents today with elevated BP and headache. Reports taking lisinopril 10 mg which patient states was recently increased up from 5 mg. Denies chest pain, tightness or pressure, or shortness breaths. Patient denies seeking medical evaluation at ER and states she will follow up with her PCP regarding elevated BP. Patient reports she was not able to start physical therapy due to significant pain. She is interested to undergo repeat lumbar medial branch blocks for potential RFA procedure. In October 2022, patient had unilateral right diagnostic L2-L3 L4 does ramus L5 medial branch block with 100% pain relief in the area of the injections. She also has right sacroiliac joint pain and radicular right leg pain. Pain affects her daily functioning, mobility and sleep. She continues to take Tylenol, Motrin, and lidocaine patches with continued symptoms. Denies any fever, abdominal or groin pain, bladder or bowel dysfunction or saddle anesthesia. PRIOR: Patient presents today for follow up for right sided thoracic back pain. She had follow up with Neurosurgery and was deemed non-surgical. Patient reports diffuse body pain, mostly throughout her whole back including her upper, middle and lower back. The middle of her back on the right side affect her the most. Pain increases with movements, ADLs, coughing or sleeping on her right side. She has a mild to moderate degenerative disc at L5-S1 per most recent lumbar spine MRI and stable 6 mm right pulmonary nodule per CT scan in 2022 for which she follows with Pulmonology. Patient was sent for thoracic spine xray by her PCP last year, this has not been completed yet. Patient also sees Rheumatology and takes Orencia. Reports recent home fasting blood sugar of 133 yesterday morning. Most recent A1C=9.0 per 09/23/23. Denies any fever, dizziness, dyspnea, shortness of breaths, chest pain, hemoptysis, weakness, bladder or bowel dysfunction or saddle anesthesia. PRIOR: Patient present today for follow up for worsening of low back pain with right sided radiculopathy symptoms. She reports mild to moderate pain relief in March and April since previous injection in February, B/L L5-S1 TFESI. Denies any recent trauma, injury or falls. She ambulates with slow antalgic gait with mild limping to shift her weight to the left side. Patient reports neck through lower back pain that travels into her right buttock, thigh and into right calf and left heel and foot with numbness, tingling and occasional weakness with prolonged walking. She also reports severe back pain with bending forward or lifting and avoids bending down as she is not able to get up from bending due to severe radiculopathy. Patient reports she is able to tolerate 20 minutes of walking or less before she needs to rest due to pain increase. Patient also has seropositive rheumatoid arthritis and states widespread joint pain as well. She is no longer interested with injections, especially cortisone injections due to diabetes and as well as low efficacy of injections in the past. Most recent A1C was 7.0. Patient rates her pain 9/10. Denies any fever, dizziness, chest pain, shortness of breath, foot drop, bladder or bowel incontinence, or saddle anesthesia. [facility] Medical History Morbid obesity with BMI of 45.0-49.9, adult Sacroiliitis Rheumatic fever TIA (transient ischemic attack) Right-sided back pain History of COVID-19 Asthma exacerbation Hospital discharge follow-up Sacroiliitis Renal calculi Costovertebral angle tenderness Burning with urination Disc degeneration, lumbar Spondylosis of cervical spine Spondylosis of lumbar spine Pleuritic pain Restrictive lung disease Morbid obesity Asthma Dyslipidemia Essential hypertension Vaginal modesta Seropositive rheumatoid arthritis Rheumatoid arthritis Diabetes Surgical History History of cholecystectomy Hx of colonoscopy (09/01/19) History of surgery on wrist Family History Father Diabetes mellitus Myocardial infarction Hypertension CVD (cardiovascular disease) Mother Diabetes mellitus CVD (cardiovascular disease) Sister No problems noted. Son No problems noted. Son No problems noted. Son No problems noted. Daughter Thyroiditis Daughter No problems noted. Daughter No problems noted. Daughter No problems noted. Daughter No problems noted. Social History Housing: Apartment Unable to assess alcohol history related to: Unknown Alcohol intake: unknown Patient Tobacco Use Status: Never used Tobacco e-Cigarette/Vaping Use: Never Used Second Hand Smoke Exposure: No service: No Current occupational status: disabled Sexual orientation: Straight/Heterosexual Gender identity: Female Cognitive needs: No Hearing needs: No Vision needs: No Female Reproductive History Menstrual Age of Menarche: 11 Date of menopause: 01/22/10 Review of Systems Const All systems reviewed & are unremarkable except as noted in HPI and below Physical Exam Vital Signs: Last Vital Signs Pulse 79 07/31/24 15:31 BP 159/76 H 07/31/24 15:31 Pulse Ox 98 07/31/24 15:31 Oxygen Delivery Method Room Air 07/31/24 15:31 BMI result Body Mass Index 40.6 General: Appears afebrile. Moderate distress due to pain. Alert and oriented. Mood and affect appropriate. Follows and participates in conversation appropriately. Respiratory effort is unlabored. Non productive cough. Able to transition from sit to stand unassisted. Uses cane with ambulation. Ambulates with bilaterally normal heel strike and toe off. Neck Other: Patient with decreased cervical ROM in all planes/especially with right lateral rotation and left bending. Reports increased pain with cervical extension and flexion. Spurling compression test positive. Pain is unchanged by Spurling maneuver with retraction. Elvey's tension test positive on the right, with radiation of pain from neck to right wrist and 4-5th fingers with paresthesias and weakness of 5th finger. Lhermitte's test was negative. DTR diminished. Patient demonstrated 5/5 left and 4/5 right motor strength of bilateral upper extremities. 2 + radial pulses. No paravertebral tenderness over facet joints bilaterally. Neck: Yes normal visual inspection, Yes no lymphadenopathy, Yes supple, No anterior neck swelling, Yes no JVD and Yes prominent dorsocervical fat pad Chest Chest palpation & inspection: normal inspection of the chest and no localized rib tenderness Resp Effort & Inspection: normal respiratory effort, able to speak in complete sentences, normal respiratory pattern, no cough, no respiratory distress and symmetric chest movement General: Yes no CVA tenderness Back/Spine/Pelvis Other: Limited thoracolumbar ROM due to pain. Antalgic gait due to mid and upper back pain. Lumbar extension and flexion reproduces moderate pain. Back: no CVA tenderness Cervical Spine: loss of normal cervical lordosis, cervical muscular tenderness, pain with cervical ROM, Cervical spine tenderness (lower spine) and No step off deformity Thoracic/Lumbar Spine: thoracic and lumbar spine normal to inspection, No Thoracic/lumbar spine scar(s), pain with thoraco-lumbar ROM, paraspinal muscle tenderness on the right (reports pain radiates to flank and RUQ) in the mid thoracic and in the upper lumbar, thoraco-lumbar ROM limited, No thoracic spinal tenderness and lumbar spinal tenderness at L4 and at L5 Pelvis: buttock tenderness (right worse than the left) bilaterally Sacroiliac joints: bilaterally (right>left) tender to palpation Results Reviewed Results Reviewed: MR SPINE THORACIC without CONTRAST 07/13/24 INDICATION: Right sided upper back pain starts at the beginning of the rib cage. TECHNIQUE: Unenhanced multiplanar, multisequence MR imaging of the thoracic spine. COMPARISON: None Available. FINDINGS: Normal alignment is demonstrated. Vertebral heights are well maintained. Bone marrow signal is within normal limits, and no suspicious osseous lesion is identified. Prevertebral and paraspinal soft tissues are within normal limits. There are prominent anterior marginal osteophytes in lower thoracic spine. Greater at T11-12. Thoracic cord demonstrates normal course, caliber, and signal characteristics. No epidural fluid collection or hematoma is identified. No significant central canal stenosis is identified. Neural foramina are patent throughout. Visualized chest and abdomen are grossly unremarkable. There are advanced in changes of the lower cervical spine. There is disc protrusion at C5-6, C6-7 and C7-T1. At C7-T1, right paracentral disc extrusion which compresses and deforms the cord at this level. At L2-3, there is mild annular disc bulge which contributes to mild central canal stenosis and moderate bilateral neural foraminal stenosis. There is hemangioma in the L2 vertebral body. IMPRESSION: Advanced degenerative changes of the lower cervical spine with right paracentral disc extrusion at C7-T1 compresses the right hemicord. Findings also demons trated at C5-6 and C6-7. Recommend MRI of the cervical spine for further evaluation. No other significant degenerative changes of the thoracic spine. XR THORACIC SPINE 02/04/24 CLINICAL INFORMATION: Radiculopathy, thoracic region FINDINGS: There are small riblets extending off the T12 vertebral body. There is no fracture or bone destruction there is mild kyphosis There is multilevel disc space narrowing. There is no abnormality of the paraspinal soft tissues. Incidental note is made of degenerative disc disease in the lower cervical spine. IMPRESSION: 1. Mild kyphosis. 2. Multilevel degenerative disc disease. 3. Degenerative disc disease in the lower cervical spine. MR LUMBAR SPINE WITHOUT CONTRAST 08/23/23 CLINICAL INFORMATION: Vertebrogenic back pain. COMPARISON: Lumbar spine MRI 08/11/2022. TECHNIQUE: MRI of the lumbar spine was obtained using routine sequences without contrast. FINDINGS: There is transitional spinal anatomy at the lumbosacral junction with a subdural sacralization of the L5 vertebral segment. The lowest rib-bearing vertebral segment will be designated T12. There is grade 1 anterolisthesis of L4 on L5. Alignment is otherwise normal. Vertebral heights are preserved. No acute bone marrow signal changes. There are mixed degenerative endplate changes at multiple levels. There is loss of intervertebral disc height and T2 signal intensity at L3-L4 and L4-L5. There is disc desiccation at multiple additional levels without substantial loss of intervertebral disc height. The tip of the conus medullaris is located at L1. No mass effect on the conus. Visualized distal cord signal intensity is normal. At T12-L1 the annular contour is normal. No canal or neuroforaminal compromise. At L1-L2 there is a slightly bulging disc. Bilateral facet degenerative change. No canal stenosis. No mass effect on the traversing or foraminal nerve roots. At L2-L3 there is a bulging disc. Bilateral facet degenerative change. Moderate canal stenosis. No mass effect on the traversing or foraminal nerve roots. At L3-L4 there is a diffusely bulging disc. Bilateral facet degenerative change. Moderate canal stenosis. Mild mass effect on the right L3 foraminal nerve root. At L4-L5 there is a bulging disc. Bilateral facet degenerative change. Moderate canal stenosis. Subarticular zone narrowing causes abutment of both traversing L5 nerve roots. No foraminal nerve root compression. At L5-S1 there is no canal or neuroforaminal compromise. Limited visualization the retroperitoneal anatomy reveals no abnormal finding. Psoas and paraspinal muscle groups are symmetric. IMPRESSION: There is transitional spinal anatomy at the lumbosacral junction with partial sacralization of the L5 vertebral segment. The lowest rib-bearing vertebral segment will be designated T12. There is multilevel degenerative spondylosis of the lumbar spine with grade 1 anterolisthesis of L4 on L5 related to facet degenerative changes at this level. Moderate canal stenosis at L2-L3, L3-L4, and L4-L5. A bulging disc in conjunction with facet degenerative change at L3-L4 causes mild mass effect on the right L3 foraminal nerve root. There is also abutment of both traversing L5 nerve roots related to degenerative changes at L4-L5. CT/CT chest w IV con 02/17/23 OSSEOUS STRUCTURES: Degenerative changes of the spine. IMPRESSION: Stable 6 mm right pulmonary nodule adjacent to the minor fissure probably representing a subpleural lymph node. Question mild interstitial lung disease. Assessment & Plan Assessment & Plan (1) Cervical disc disorder with radiculopathy of cervicothoracic region: Code(s): M50.13 - Cervical disc disorder with radiculopathy, cervicothoracic region Category: Medical (2) Cervical disc herniation: Code(s): M50.20 - Other cervical disc displacement, unspecified cervical region Category: Medical (3) Cervical radiculopathy at C8: Code(s): M54.12 - Radiculopathy, cervical region Category: Medical (4) Thoracic spine pain: Comment: CHRONIC BACK PAIN AND NOW MORE CONFINED TO THE RIGHT CHEST WALL, IS PROBABLY RELATED TO CHRONIC DEGENERATIVE ARTHRITIS OF THE SPINE Code(s): M54.6 - Pain in thoracic spine Category: Medical (5) Thoracic radiculopathy: Code(s): M54.14 - Radiculopathy, thoracic region Category: Medical Plan MRI of the cervical spine to assess for neural integrity and compression and follow up on recent thoracic MRI results, including advanced degenerative changes of the lower cervical spine with right paracentral disc extrusion at C7- T1 compresses the right hemicord. MRI of the cervical spine for further evaluation was recommended as next steps. Patient will return to the clinic to discuss results of the MRI findings when it is done and consider interventional therapy as indicated. Short script provided for oxycodone for moderate-severe pain. Side effects and precautions were reviewed with patient. All questions and concerns have been answered and patient agreed with the treatment plan. Follow-up for MRI results and sooner as needed. Medications: Changed From oxycodone Partial Fill upon patient request. 5 mg PO BID PRN 10 tabs 0RF pain M50.13 - Cervical disc disorder with radiculopathy, cervicothoracic region, M50.20 - Othe r cervical disc displacement, unspecified cervical region To oxycodone Partial Fill upon patient request. 5 mg PO BID PRN 20 tabs 0RF pain 10 days M50.13 - Cervical disc disorder with radiculopathy, cervicothoracic region, M50.20 - Other cervical disc displacement, unspecified cervical region Coding Level of Care Code Est Pt Level 4 (03040) Complex EM visit Add On G2211 Diagnoses Cervical disc disorder with radiculopathy of cervicothoracic region M50.13 Cervical disc herniation M50.20 Cervical radiculopathy at C8 M54.12 Thoracic spine pain M54.6 Thoracic radiculopathy M54.14
[2024-07-31 15:31] VITALS: BP 159/76; PULSE 79; O2SAT 98; BMI 40.6
== END 2024-07-31 15:53 | disposition home or self-care (01) ==
LOC: HO.PMC 15:20
PROVIDERS: PCP Internal Medicine; Visit Provider Nurse Practitioner Family
DX: M50.13 Cervical disc disorder with radiculopathy, cervicothoracic region (principal); M50.20 Other cervical disc displacement, unspecified cervical region; M54.12 Radiculopathy, cervical region; M54.6 Pain in thoracic spine; M54.14 Radiculopathy, thoracic region
CPT/HCPCS: 99214; G2211

== ENCOUNTER → 2024-07-31 15:20 | Outpatient (BNVA) | payer OTHER, SELFPAY | PROVIDERS: PCP Internal Medicine; Visit Provider Nurse Practitioner Family | DX: M50.13 Cervical disc disorder with radiculopathy, cervicothoracic region (principal); M50.20 Other cervical disc displacement, unspecified cervical region; M54.14 Radiculopathy, thoracic region; Z71.2 Person consulting for explanation of examination or test findings | CPT/HCPCS: 99212 ==

== ENCOUNTER 2024-08-01 16:00 | Outpatient (REF) | payer OTHER, SELFPAY | END 2024-08-01 16:01 | disposition home or self-care (01) | LOC: HO.US 16:00 | PROVIDERS: PCP Internal Medicine; Visit Provider Obstetrics & Gynecology | DX: R10.2 Pelvic and perineal pain (principal) | CPT/HCPCS: 76830; 76856 ==

== ENCOUNTER 2024-08-10 13:48 | Outpatient (AMB) | payer OTHER, SELFPAY ==
--- NOTE | 2024-08-10 14:13 | HO.SPINEOV ---
Intake Visit Reasons: F/u after MRI Intake Note: Ms. Anoop Davalos is here today to F/u after MRI. Dining Chair Seat Cushion Trimmer Required: Yes Dining Chair Seat Cushion Trimmer Name: Tablet Allergies cyclobenzaprine [From Flexeril] Allergy (Intermediate, Verified 07/11/24 13:15) Dizziness orphenadrine [From Norflex] Allergy (Intermediate, Verified 07/11/24 13:15) Dizziness sarilumab [From Kevzara] Allergy (Intermediate, Verified 07/11/24 13:15) Rash Assessment & Plan Assessment & Plan (1) Cervical disc herniation: Code(s): M50.20 - Other cervical disc displacement, unspecified cervical region Category: Medical Plan Mrs Davalos is here in follow-up. She had undergone a thoracic MRI and this showed incidentally noted lower cervical spine spinal cord compression. She was referred back to us for an evaluation. She does report having numbness of her hands and occasionally pain shooting down her right arm. Her hands feel weak. They do bother her at night sometimes as well. On my exam, she does not demonstrate any hyperreflexia but she does have bilateral hand weakness. She is diabetic however, so reflexes are not reliable in this situation. The rest of her motor exam is intact. She is slow to stand but that is because of pain on the right side of her flank region. She does not have a Tinel sign, she might have a Phalen sign in the left hand it was equivocal. Her right hand I could not test due to pain and discomfort. Based on what I see from the thoracic MRI done at the [facility], I think she needs a cervical MRI just as a matter of thoroughness especially in the setting of hand weakness. There might be a component of carpal tunnel but we need to exclude myelopathy 1st. Total amount of time spent in this visit was 20 minutes in discussion of symptoms, thoracic imaging results and subsequent plan of care Ez Tsai MD,PhD [facility] Orders: Orders MR cervical spine wo con Today M50.20 - Other cervical disc displacement, unspecified cervical region Coding Level of Care Code Est Pt Level 3 (58807) Diagnoses Cervical disc herniation M50.20
== END 2024-08-10 15:19 | disposition home or self-care (01) ==
LOC: HO.HNS 13:49
PROVIDERS: PCP Internal Medicine; Visit Provider Physician Assistant
DX: M50.20 Other cervical disc displacement, unspecified cervical region (principal)
CPT/HCPCS: 99213

== ENCOUNTER → 2024-08-10 13:48 | Outpatient (BNVA) | payer OTHER, SELFPAY | PROVIDERS: PCP Internal Medicine; Visit Provider Physician Assistant | DX: M50.20 Other cervical disc displacement, unspecified cervical region (principal) | CPT/HCPCS: 99212 ==

== ENCOUNTER 2024-08-23 13:19 | Outpatient (REF) | payer OTHER, SELFPAY ==
--- NOTE | ~2024-08-23 | XR_ITS ---
EXAMINATION: XR FOOT, RIGHT CLINICAL INFORMATION: M21.611 - Bunion of right foot COMPARISON: None available. TECHNIQUE: AP, lateral, and oblique views of the right foot. FINDINGS: The bones and soft tissues are normal. No fracture. Alignment is anatomic. Joint space narrowing, subluxation, and osteophyte formation at the first metatarsal phalangeal joint. XR/XR foot RT 2V IMPRESSION: Degenerative disease of the first metatarsophalangeal joint. Electronically signed by: Rubina Manrique MD 09/16/2024 02:12 PM NATE PARIKH
--- NOTE | ~2024-08-23 | XR_ITS ---
EXAMINATION: XR CHEST CLINICAL INFORMATION: J06.9 - Acute upper respiratory infection, unspecified COMPARISON: Chest x-ray on 08/31/2023 TECHNIQUE: 2 views of the chest were obtained. FINDINGS: No significant abnormality is noted involving the heart, lungs, mediastinum, bony thorax or soft tissues. XR/XR chest 2V IMPRESSION: Unremarkable examination. Electronically signed by: Rubina Manrique MD 09/16/2024 02:12 PM NATE
[2024-08-23 15:19] LABS: Influenza A PCR NEGATIVE (Negative); Influenza B PCR NEGATIVE (Negative); Resp Syncy Virus RNA Qual PCR NEGATIVE (Negative); SARS COV2 PCR INHOUSE NEGATIVE (Negative)
== END 2024-08-23 13:20 | disposition home or self-care (01) ==
LOC: HO.XRAY 13:19
PROVIDERS: PCP Internal Medicine; Visit Provider Internal Medicine
DX: J06.9 Acute upper respiratory infection, unspecified (principal); R09.89 Other specified symptoms and signs involving the circulatory and respiratory systems; M21.611 Bunion of right foot; E66.01 Morbid (severe) obesity due to excess calories; E11.65 Type 2 diabetes mellitus with hyperglycemia; M05.9 Rheumatoid arthritis with rheumatoid factor, unspecified
CPT/HCPCS: 0241U; 71046; 73620; 99212

== ENCOUNTER 2024-08-23 13:19 | Outpatient (AMB) | payer OTHER, SELFPAY ==
[2024-08-23 13:23] VITALS: BP 132/80; BMI 40.2
--- NOTE | 2024-08-23 13:23 | A.OFFPC_ITS ---
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 Required: No Accompanied by: Self / Same As Patient Allergies cyclobenzaprine [From Flexeril] Allergy (Intermediate, Verified 08/23/24 13:40) Dizziness orphenadrine [From Norflex] Allergy (Intermediate, Verified 08/23/24 13:40) Dizziness sarilumab [From Kevzara] Allergy (Intermediate, Verified 08/23/24 13:40) Rash Medication List - Last Reconciled 08/23/24 by Aniyah Friend MD albuterol sulfate 90 mcg/actuation 2 inhalations PO Q4H PRN albuterol sulfate 2.5 mg (3 mL) inhalation Q4-6H PRN 30 days blood pressure monitor As directed blood pressure test kit-large As directed blood sugar diagnostic (FreeStyle Lite Strips) Use 1 test strip once a day blood-glucose meter (FreeStyle Lite Meter kit) E11.9 ONCE A DAY [cock up splint wear on the right wrist at night ] diclofenac sodium 1% (Aleve (diclofenac)) 2 grams topical QID 30 days docusate sodium (Col-Rite) 100 mg PO BID exenatide microspheres ER (Bydureon BCise) 2 mg (0.85 mL) subcut Q7D 4 weeks fluticasone propionate 220 mcg/actuation 2 puffs inhalation BID 30 days gabapentin 300 mg PO TID 30 days ibuprofen 600 mg PO Q8H PRN ipratropium-albuterol 20-100 mcg/actuation (Combivent Respimat) 2 puffs inhalation Q4H 30 days lancets (FreeStyle Lancets) Use 1 lancet once a day as needed lidocaine 5% 1 patch topical DAILY lisinopril 40 mg PO DAILY meclizine 50 mg PO DAILY PRN metformin 1,000 mg PO BID 90 days nabumetone 750 mg PO BID 30 days krkwpnuz-vmxkxh-RZ-thonzonium 3.3-3-10-0.5 mg/mL (Cortisporin-TC) 5 drps otic (ear) left QID Orencia ClickJect (abatacept) 125 mg subcut QWEEK NS oxycodone 5 mg PO BID PRN 10 days rosuvastatin 10 mg PO DAILY 90 days sennosides (senna) 8.6 mg PO BEDTIME PRN 7 days Tobacco use date assessed: 10/25/23 Fall risk assessment: No Falls in past year Last assessed Fall Risk: 08/23/24 Dental Screening Dental Screen Date: 06/27/24 HPI HPI Comments History of Present Illness Details This is a 64-year-old female with diabetes mellitus type 2, hypertension, rheumatoid arthritis and morbid obesity that complains of chest congestion and cough associated with wheezing that started few days ago. No sick contacts. Last A1c was within goal. Blood pressure stable. On Orencia for rheumatoid arthritis and this is follow by Rheumatology. She is morbidly obese with a BMI of 40.2 and was advised to do diet and exercise to reach BMI goal less than 30. Declines weight loss surgery. [facility] Medical History (Updated 08/23/24 @ 15:29 by Aniyah Friend MD) Morbid obesity with BMI of 45.0-49.9, adult Sacroiliitis Rheumatic fever TIA (transient ischemic attack) Right-sided back pain History of COVID-19 Asthma exacerbation Hospital discharge follow-up Sacroiliitis Renal calculi Costovertebral angle tenderness Burning with urination Disc degeneration, lumbar Spondylosis of cervical spine Spondylosis of lumbar spine Pleuritic pain Restrictive lung disease Morbid obesity Asthma Dyslipidemia Essential hypertension Vaginal modesta Seropositive rheumatoid arthritis Rheumatoid arthritis Diabetes Surgical History History of cholecystectomy Hx of colonoscopy (09/01/19) History of surgery on wrist Family History Father Diabetes mellitus Myocardial infarction Hypertension CVD (cardiovascular disease) Mother Diabetes mellitus CVD (cardiovascular disease) Sister No problems noted. Son No problems noted. Son No problems noted. Son No problems noted. Daughter Thyroiditis Daughter No problems noted. Daughter No problems noted. Daughter No problems noted. Daughter No problems noted. Social History Housing: Apartment Unable to assess alcohol history related to: Unknown Alcohol intake: unknown Patient Tobacco Use Status: Never used Tobacco e-Cigarette/Vaping Use: Never Used Second Hand Smoke Exposure: No service: No Current occupational status: disabled Sexual orientation: Straight/Heterosexual Gender identity: Female Cognitive needs: No Hearing needs: No Vision needs: No Female Reproductive History Menstrual Age of Menarche: 11 Date of menopause: 01/22/10 Questionnaire Thrive Questionnaire Date Thrive assessed: 10/25/23 SONA-7 AMB Questionnaire SONA-7 Date SONA - 7 assessed: 10/25/23 Source: Developed by Drs. Spencer Gonzalez, Anamaria Bartlett, Clayton Azar and colleagues, with an educational anna from [employer]. Review of Systems Const All systems reviewed & are unremarkable except as noted in HPI and below Card Denies chest pain at rest, Denies chest pain with activity, Denies edema, Denies irregular heart rhythm, Denies claudication, Denies dyspnea, Denies dyspnea on exertion, Denies orthopnea, Denies paroxysmal nocturnal dyspnea and Denies slow heart rate Resp Denies cough, Denies dyspnea and Denies dyspnea on exertion GI Denies abdominal pain, Denies change in bowel habits, Denies excessive flatus, Denies nausea and Denies vomiting Physical exam (Primary Care) Vital Signs: Last Vital Signs BP 132/80 08/23/24 13:23 BMI result Body Mass Index 40.2 BMI Assessment/Plan discussion: High BMI High, discussed plan: lifestyle, weight reduction, dietary and physical activity Tobacco/Smoking Status: Tobacco use Status Tobacco use date assessed 10/25/23 08/23/24 13:28 Patient Tobacco Use Status Never used Tobacco 08/23/24 13:28 e-Cigarette/Vaping Use Never Used 08/23/24 13:28 Thrive Assessment: Date of Thrive Assessment Date Thrive assessed 10/25/23 08/23/24 13:28 Resp Effort & Inspection: normal respiratory effort Auscultation: clear to auscultation bilaterally Cardio Jugular venous distension: no JVD Rate: regular rate Rhythm: regular rhythm Heart sounds: S1 normal heart sound present and S2 normal heart sound present Extrem General: Yes full ROM Office Procedures Flu Questionnaire Does the patient have a severe egg allergy?: No Immunizations Fluarix Triv [id number] (PF) 45 mcg (15 mcg x 3)/0.5 mL IM syringe Performing Provider: Aniyah Friend MD [facility] Documented (not given) by: Johanna Cifuentes, Justin on 08/23/24 13:29 Reason Not Given: Patient Refused Coding Level of Care Code Est Pt Level 4 (33619) Complex EM visit Add On G2211 Diagnoses Upper respiratory tract infection, unspecified type J06.9 URI type: unspecified URI Morbid obesity with BMI of 40.0-44.9, adult E66.01; Z68.41 Essential hypertension I10 Type 2 diabetes mellitus with hyperglycemia, without long-term current use of insulin E11.65 Diabetes mellitus type: type 2 Diabetes mellitus chcf insulin use: without 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 COVID, flu and RSV test ordered. Chest x-ray ordered. (2) Morbid obesity with BMI of 40.0-44.9, adult: Comment: Continues to be grossly obese, BMI= 40.4 Code(s): E66.01 - Morbid (severe) obesity due to excess calories; Z68.41 - Body mass index [BMI] 40.0-44.9, adult Category: Medical Plan: Start diet and exercise. BMI goal is less than 30. (3) Essential hypertension: Code(s): I10 - Essential (primary) hypertension Category: Medical Plan: Continue lisinopril. Blood pressure goal is equal or less than 130/80. (4) Diabetes: Code(s): E11.9 - Type 2 diabetes mellitus without complications Category: Medical Qualifiers: Diabetes mellitus type: type 2 Diabetes mellitus chcf insulin use: without chcf use Diabetes mellitus complication status: with hyperglycemia Qualified Code(s): E11.65 - Type 2 diabetes mellitus with hyperglycemia Plan: Continue metformin. A1c goal is equal or less than 7%. (5) Seropositive rheumatoid arthritis: Comment: ++RF+++CCP dx in her 40s Humira:08/29 - 03/30 -active disease on exam Enbrel:04/29-08/30 - active disease on exam Xeljanz:08/30-12/29- active disease on exam Wood: 01/2021- stopped due to rash Orencia: 01/2021 - present effective MTX in the past - transaminitis Code(s): M05.9 - Rheumatoid arthritis with rheumatoid factor, unspecified Category: Medical Plan: Continue Orencia. Follow-up with rheumatology. Orders: Orders XR chest 2V Today J06.9 - Acute upper respiratory infection, unspecified Influenza [id number] Immunization Today Z23 - Encounter for immunization SARS-CoV2/FLU/RSV Today R09.89 - Other specified symptoms and signs involving the circulatory and respiratory systems Medications: New doxycycline hyclate 100 mg PO BID 5 days 10 caps 0RF prednisone Take 4 tabs for 2 days, then 3 tabs for 2 days, then 2 tabs for 2 days, then 1 tab for 2 days 10 mg PO DIRECTED 8 days 20 tabs 0RF
== END 2024-08-23 13:49 | disposition home or self-care (01) ==
PROVIDERS: PCP Internal Medicine; Visit Provider Internal Medicine
DX: E11.65 Type 2 diabetes mellitus with hyperglycemia (principal); E66.01 Morbid (severe) obesity due to excess calories; Z68.41 Body mass index [BMI] 40.0-44.9, adult; M05.9 Rheumatoid arthritis with rheumatoid factor, unspecified; J06.9 Acute upper respiratory infection, unspecified; I10 Essential (primary) hypertension; Z23 Encounter for immunization

== ENCOUNTER 2024-08-25 14:31 | Outpatient (AMB) | payer OTHER, SELFPAY ==
--- NOTE | 2024-08-25 14:33 | MHC.OFFVIS ---
Vital Signs 08/25/24 14:34 Height 5 ft 1 in Weight 213 lb 6 oz BMI 40.3 BP 140/72 H Blood Pressure Location Lt brachial Position Sitting Pulse 80 Pulse Source Pulse Oximeter Pulse Oximetry (%) 97 Oxygen Delivery Method Room Air Intake Visit Reasons: Chest tightness, cough with yellow secretions Foreign Exchange Student Coordinator Required: Yes Foreign Exchange Student Coordinator Language: Adjunct Lecturer Services: Foreign Exchange Student Coordinator Present Foreign Exchange Student Coordinator Name: Lolly Curtis OA Allergies cyclobenzaprine [From Flexeril] Allergy (Intermediate, Verified 08/25/24 14:38) Dizziness orphenadrine [From Norflex] Allergy (Intermediate, Verified 08/25/24 14:38) Dizziness sarilumab [From Kevzara] Allergy (Intermediate, Verified 08/25/24 14:38) Rash HPI HPI Chest tightness, cough with yellow secretions: Details: Laura is a pleasant 64 year old female, never smoker, with underlying asthma, restrictive lung disease, RA, HTN and DMII. She is moderately controlled on Flovent and albuterol MDI. She is under the care of Dr. Grande and presents today for an acute visit. She reports chest tightness, dyspnea, productive cough with yellow sputum and wheezing over the last week. She was prescribed doxycyline two days as well as prednisone by PCP and symptoms continue to worsen now with chills. Denies fevers or sick contacts. [facility] Medical History Morbid obesity with BMI of 45.0-49.9, adult Sacroiliitis Rheumatic fever TIA (transient ischemic attack) Right-sided back pain History of COVID-19 Asthma exacerbation Hospital discharge follow-up Sacroiliitis Renal calculi Costovertebral angle tenderness Burning with urination Disc degeneration, lumbar Spondylosis of cervical spine Spondylosis of lumbar spine Pleuritic pain Restrictive lung disease Morbid obesity Asthma Dyslipidemia Essential hypertension Vaginal modesta Seropositive rheumatoid arthritis Rheumatoid arthritis Diabetes Surgical History History of cholecystectomy Hx of colonoscopy (09/01/19) History of surgery on wrist Family History Father Diabetes mellitus Myocardial infarction Hypertension CVD (cardiovascular disease) Mother Diabetes mellitus CVD (cardiovascular disease) Sister No problems noted. Son No problems noted. Son No problems noted. Son No problems noted. Daughter Thyroiditis Daughter No problems noted. Daughter No problems noted. Daughter No problems noted. Daughter No problems noted. Social History Housing: Apartment Unable to assess alcohol history related to: Unknown Alcohol intake: unknown Patient Tobacco Use Status: Never used Tobacco e-Cigarette/Vaping Use: Never Used Second Hand Smoke Exposure: No service: No Current occupational status: disabled Sexual orientation: Straight/Heterosexual Gender identity: Female Cognitive needs: No Hearing needs: No Vision needs: No Female Reproductive History Menstrual Age of Menarche: 11 Date of menopause: 01/22/10 Review of Systems Const Denies excessive sweating, Denies fever(s), Denies headache(s) and Denies night sweats Eyes Denies dry eyes, Denies irritation and Denies itchy eyes ENT Reports Normal hearing present, Denies headache(s), Denies nasal congestion, Denies nasal discharge, Denies post nasal drip and Denies sore throat Card Denies chest pain, Denies chest pain at rest, Denies chest pain with activity, Denies claudication, Denies leg edema, Denies orthopnea and Denies paroxysmal nocturnal dyspnea Resp Denies pain on inspiration, Denies pain with cough and Denies stridor Musc Denies myalgias Neuro Reports Normal hearing present and Denies headache(s) Endo Denies excessive sweating Jared/Lymph Denies lymphadenopathy Aller/Immun Denies itchy eyes and Denies seasonal rhinorrhea Physical Exam Vital Signs: Last Vital Signs Pulse 80 08/25/24 14:34 BP 140/72 H 08/25/24 14:34 Pulse Ox 97 08/25/24 14:34 Oxygen Delivery Method Room Air 08/25/24 14:34 BMI result Body Mass Index 40.3 Const General: cooperative, no acute distress, well developed and alert Nutritional Appearance: obese Orientation/consciousness: patient oriented x3 Limitations: no limitations HEENT Head: Yes normal to inspection, Yes normocephalic and Yes atraumatic Ears: hearing grossly normal bilaterally and external ears normal Eyes General: appearance normal, both eyes and all related structures Eyelids: Yes eyelids normal Sclerae: sclerae normal EOM: EOMs intact bilaterally Neck Neck: Yes normal visual inspection and Yes no lymphadenopathy Lymphatic: no lymphadenopathy noted Chest Chest palpation & inspection: normal inspection of the chest Resp Effort & Inspection: normal respiratory effort, able to speak in complete sentences, no audible wheezes, no stridor, not tachypneic, no tripod positioning and no use of accessory muscles Auscultation: crackles (RLL) Cardio Jugular venous distension: no JVD Rate: regular rate Rhythm: regular rhythm Skin Other: warm, dry General skin exam: no rashes or lesions noted Neuro General: patient oriented x3 Cranial nerves: Yes Normal hearing present Cognition (Neuro): normal cognition Gait exam (Neuro): Normal gait present Extrem General: Yes normal to inspection, Yes capillary refill normal, Yes no clubbing, cyanosis or edema and Yes no pedal edema Psych Appearance: grossly normal and well kempt Speech and movement: Normal speech and movement present and Clear speech present Affect: normal affect Attitude: cooperative Thought process: Normal thought process present Thought content: Normal thought content present Insight: Good insight present (Psych) Judgement: Good judgement present (Psych) Assessment & Plan Assessment & Plan (1) Asthma: Code(s): J45.909 - Unspecified asthma, uncomplicated Category: Medical (2) Bronchitis: Code(s): J40 - Bronchitis, not specified as acute or chronic Category: Medical Plan Patient continues to worsen despite doxycyline and prednisone. Will switch to vantin and advised patient to continue prednisone. Will also switch Flovent to Advair. If no improvement will send for CXR. She is aware if symptoms worsen to seek emergent care. RLL crackles. All questions were answered and patient is in agreement of plan. Will follow up for regularly scheduled appointment with Dr. Grande or sooner if needed. Medications: New fluticasone propion-salmeterol 230-21 mcg/actuation (Advair HFA) 2 puffs inhalation Q12H 12 grams 3RF J45.909 - Unspecified asthma, uncomplicated cefpodoxime must administer with a meal/food 200 mg PO BID 14 tabs 0RF Discontinued ipratropium-albuterol 20-100 mcg/actuation (Combivent Respimat) Discontinued Reason: Patient Completed Course 2 puffs inhalation Q4H 30 days 4 grams 3RF ASTHMA/COUGH fluticasone propionate 220 mcg/actuation administer with spacer Discontinued Reason: Patient Completed Course 2 puffs inhalation BID 30 days 12 grams 5RF asthma Coding Level of Care Code Est Pt Level 4 (52493) Diagnoses Asthma J45.909 Bronchitis J40
[2024-08-25 14:34] VITALS: BP 140/72; PULSE 80; O2SAT 97; BMI 40.3
== END 2024-08-25 15:08 | disposition home or self-care (01) ==
PROVIDERS: PCP Internal Medicine; Visit Provider Nurse Practitioner Family
DX: J45.909 Unspecified asthma, uncomplicated (principal)
CPT/HCPCS: 99214

== ENCOUNTER → 2024-08-25 14:31 | Outpatient (BNVA) | payer OTHER, SELFPAY | PROVIDERS: PCP Internal Medicine; Visit Provider Nurse Practitioner Family | DX: J45.909 Unspecified asthma, uncomplicated (principal); J40 Bronchitis, not specified as acute or chronic | CPT/HCPCS: 99212 ==

== ENCOUNTER 2024-08-30 15:10 | Outpatient (AMB) | payer OTHER, SELFPAY ==
[2024-08-30 15:27] VITALS: BP 130/72; PULSE 69; O2SAT 99; BMI 41.1
--- NOTE | 2024-08-30 15:27 | MHC.OFFVIS ---
Vital Signs 08/30/24 15:27 Height 5 ft 1 in Weight 217 lb 8 oz BMI 41.1 BP 130/72 Blood Pressure Location Rt brachial Position Sitting Pulse 69 Pulse Source Pulse Oximeter Pulse Oximetry (%) 99 Oxygen Delivery Method Room Air Intake Visit Reasons: sick visit Clinic Office Coordinator Required: Yes Clinic Office Coordinator Language: Furnace Maintenance Name: Lolly BOB Allergies cyclobenzaprine [From Flexeril] Allergy (Intermediate, Verified 08/30/24 15:33) Dizziness orphenadrine [From Norflex] Allergy (Intermediate, Verified 08/30/24 15:33) Dizziness sarilumab [From Kevzara] Allergy (Intermediate, Verified 08/30/24 15:33) Rash HPI HPI sick visit: Details: Laura is a pleasant 64 year old female, never smoker, with underlying asthma, restrictive lung disease, RA, HTN and DMII. She is moderately controlled on Flovent and albuterol MDI. She is under the care of Dr. Grande and presents today for an acute visit. She was seen a few days ago placed on Vantin as she reported worsening respiratory symptoms while on doxycycline. 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 She also reports that she ran out of albuterol. She continues to report dyspnea on exertion with improvements in cough, now dry and denies wheezing. She denies any fevers or chills. [facility] Medical History Morbid obesity with BMI of 45.0-49.9, adult Sacroiliitis Rheumatic fever TIA (transient ischemic attack) Right-sided back pain History of COVID-19 Asthma exacerbation Hospital discharge follow-up Sacroiliitis Renal calculi Costovertebral angle tenderness Burning with urination Disc degeneration, lumbar Spondylosis of cervical spine Spondylosis of lumbar spine Pleuritic pain Restrictive lung disease Morbid obesity Asthma Dyslipidemia Essential hypertension Vaginal modesta Seropositive rheumatoid arthritis Rheumatoid arthritis Diabetes Surgical History History of cholecystectomy Hx of colonoscopy (09/01/19) History of surgery on wrist Family History Father Diabetes mellitus Myocardial infarction Hypertension CVD (cardiovascular disease) Mother Diabetes mellitus CVD (cardiovascular disease) Sister No problems noted. Son No problems noted. Son No problems noted. Son No problems noted. Daughter Thyroiditis Daughter No problems noted. Daughter No problems noted. Daughter No problems noted. Daughter No problems noted. Social History Housing: Apartment Unable to assess alcohol history related to: Unknown Alcohol intake: unknown Patient Tobacco Use Status: Never used Tobacco e-Cigarette/Vaping Use: Never Used Second Hand Smoke Exposure: No service: No Current occupational status: disabled Sexual orientation: Straight/Heterosexual Gender identity: Female Cognitive needs: No Hearing needs: No Vision needs: No Female Reproductive History Menstrual Age of Menarche: 11 Date of menopause: 01/22/10 Review of Systems Const Denies excessive sweating, Denies fever(s), Denies headache(s) and Denies night sweats Eyes Denies dry eyes, Denies irritation and Denies itchy eyes ENT Reports Normal hearing present and Denies headache(s) Card Denies chest pain, Denies chest pain at rest, Denies chest pain with activity, Denies claudication, Denies leg edema, Denies orthopnea and Denies paroxysmal nocturnal dyspnea Resp Denies pain on inspiration, Denies pain with cough and Denies stridor Musc Denies myalgias Neuro Reports Normal hearing present and Denies headache(s) Endo Denies excessive sweating Jared/Lymph Denies lymphadenopathy Aller/Immun Denies itchy eyes and Denies seasonal rhinorrhea Physical Exam Vital Signs: Last Vital Signs Pulse 69 08/30/24 15:27 BP 130/72 08/30/24 15:27 Pulse Ox 99 08/30/24 15:27 Oxygen Delivery Method Room Air 08/30/24 15:27 BMI result Body Mass Index 41.1 Const General: cooperative, no acute distress, well developed and alert Nutritional Appearance: obese Orientation/consciousness: patient oriented x3 Limitations: no limitations HEENT Head: Yes normal to inspection, Yes normocephalic and Yes atraumatic Ears: hearing grossly normal bilaterally and external ears normal Eyes General: appearance normal, both eyes and all related structures Eyelids: Yes eyelids normal Sclerae: sclerae normal EOM: EOMs intact bilaterally Neck Neck: Yes normal visual inspection and Yes no lymphadenopathy Lymphatic: no lymphadenopathy noted Chest Chest palpation & inspection: normal inspection of the chest Resp Effort & Inspection: normal respiratory effort, able to speak in complete sentences, no audible wheezes, no stridor, not tachypneic, no tripod positioning and no use of accessory muscles Auscultation: clear to auscultation bilaterally, no crackles and no wheezes Cardio Jugular venous distension: no JVD Rate: regular rate Rhythm: regular rhythm Skin Other: warm, dry General skin exam: no rashes or lesions noted Neuro General: patient oriented x3 Cranial nerves: Yes Normal hearing present Cognition (Neuro): normal cognition Gait exam (Neuro): Normal gait present Extrem General: Yes normal to inspection, Yes capillary refill normal, Yes no clubbing, cyanosis or edema and Yes no pedal edema Psych Appearance: grossly normal and well kempt Speech and movement: Normal speech and movement present and Clear speech present Affect: normal affect Attitude: cooperative Thought process: Normal thought process present Thought content: Normal thought content present Insight: Good insight present (Psych) Judgement: Good judgement present (Psych) Assessment & Plan Assessment & Plan (1) Cough: Code(s): R05.9 - Cough, unspecified Category: Medical (2) Asthma: Code(s): J45.909 - Unspecified asthma, uncomplicated Category: Medical (3) Bronchitis: Code(s): J40 - Bronchitis, not specified as acute or chronic Category: Medical Plan Patient reports improvements while on Vantin advised to complete course of antibiotics and prednisone. Respiratory exam unremarkable at this time. She is aware to call if symptoms worsen once completing medications and obtain CXR. She is aware that Advair to available to continuous pickling line pickler at pharmacy and will send in refill of DuoNeb. All questions were answered and patient is in agreement of plan. Will follow up for regularly scheduled appointment with Dr. Grande or sooner if needed. Orders: Orders XR chest 2V 08/30/24 R05.9 - Cough, unspecified Medications: New ipratropium-albuterol 0.5 mg-3 mg(2.5 mg base)/3 mL 3 mL inhalation Q6H PRN 180 mL 0RF wheezing Coding Level of Care Code Est Pt Level 4 (69294) Diagnoses Cough R05.9 Asthma J45.909 Bronchitis J40
== END 2024-08-30 16:02 | disposition home or self-care (01) ==
PROVIDERS: PCP Internal Medicine; Visit Provider Nurse Practitioner Family
DX: J45.909 Unspecified asthma, uncomplicated (principal)
CPT/HCPCS: 99214

== ENCOUNTER → 2024-08-30 15:10 | Outpatient (BNVA) | payer OTHER, SELFPAY | PROVIDERS: PCP Internal Medicine; Visit Provider Nurse Practitioner Family | DX: J45.909 Unspecified asthma, uncomplicated (principal); J98.4 Other disorders of lung | CPT/HCPCS: 99212 ==

== ENCOUNTER 2024-09-16 12:51 | Emergency (ER) | payer OTHER, SELFPAY ==
--- NOTE | ~2024-09-16 | XR_ITS ---
EXAMINATION: XR CHEST CLINICAL INFORMATION: cough, fever COMPARISON: Chest x-ray on 08/23/2024 TECHNIQUE: 2 views of the chest were obtained. FINDINGS: No significant abnormality is noted involving the heart, lungs, mediastinum, bony thorax or soft tissues. XR/XR chest 2V IMPRESSION: Unremarkable examination. Electronically signed by: Rubina Manrique MD 09/16/2024 02:11 PM [facility]
[2024-09-16 13:11] VITALS: BP 146/91; PULSE 85; RESP 18; TEMP 37.1; O2SAT 98; BMI 43.5
--- NOTE | 2024-09-16 13:12 | ED.URI ---
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 Endorses mild odynophagia. No dysphagia. Reports feeling warm . No documented temperature. She does admit that she was diagnosed with right OM 2 days ago and has been taking amoxicillin as prescribed. Denies any chest pain, sob, wheezing, or sputum production. Denies known sick contacts. Denies N/V, abd pain, dysuria. Related Data Home Medications ?Medication ?Instructions ?Recorded ?Confirmed blood pressure test kit-large #1 ea 06/02/24 08/23/24 Previous Rx's ?Medication ?Instructions ?Recorded albuterol sulfate 90 mcg/actuation 2 inh PO Q4H PRN shortness of 08/13/20 aerosol inhaler breath or wheezing #8.5 grams docusate sodium 100 mg capsule 100 mg PO BID #30 caps 12/07/22 (Col-Rite) blood sugar diagnostic (FreeStyle #50 ea 02/10/23 Lite Strips) blood-glucose meter (FreeStyle #1 ea 02/10/23 Lite Meter kit) lancets 28 gauge (FreeStyle #100 ea 02/10/23 Lancets) cock up splint #1 ea 03/03/23 metformin 1,000 mg tablet 1,000 mg PO BID 90 days #180 tabs 06/29/23 Orencia ClickJect 125 mg/mL 125 mg subcut QWEEK #4 mL 02/07/24 subcutaneous auto-injector (abatacept) blood pressure monitor #1 ea 02/07/24 nabumetone 750 mg tablet 750 mg PO BID 30 days #60 tabs 03/30/24 lidocaine 5 % topical patch 1 patch topical DAILY #30 ea 04/07/24 rosuvastatin 10 mg tablet 10 mg PO DAILY 90 days #90 tabs 04/20/24 sennosides 8.6 mg tablet (senna) 8.6 mg PO BEDTIME PRN constipation 04/20/24 7 days #7 tabs ibuprofen 600 mg tablet 600 mg PO Q8H PRN pain #14 tabs 04/23/24 meclizine 50 mg tablet 50 mg PO DAILY PRN motion sickness 04/23/24 #14 tabs diclofenac sodium 1 % topical gel 2 g topical QID 30 days #100 grams 05/15/24 (Aleve (diclofenac)) gabapentin 300 mg capsule 300 mg PO TID pain 30 days #90 caps 07/06/24 unrmfszc-bummaz-VB-thonzonm 3.3 5 drp otic (ear) left QID #10 mL 07/11/24 mg-3 mg-10 mg-0.5 mg/mL ear drops,susp (Cortisporin-TC) oxycodone 5 mg tablet 5 mg PO BID PRN pain 10 days #20 07/31/24 tabs exenatide microspheres 2 mg/0.85 2 mg (0.85 mL) subcut Q7D 4 weeks 08/14/24 mL subcutaneous auto-injector #3.4 mL (Yadira Lee) albuterol sulfate 2.5 mg/3 mL 2.5 mg (3 mL) inhalation Q4-6H PRN 08/30/24 (0.083 %) solution for nebulization shortness of breath or wheezing 30 days #90 mL ipratropium 0.5 mg-albuterol 3 mg 3 ml inhalation Q6H PRN wheezing 08/30/24 (2.5 mg base)/3 mL nebulization #180 mL soln lisinopril 40 mg tablet 40 mg PO DAILY #90 tabs 09/07/24 amoxicillin 500 mg capsule 500 mg PO BID 7 days #14 caps 09/14/24 benzocaine 15 mg-menthol 2.6 mg 1 rafa mucous membrane Q2-4H PRN 09/16/24 lozenges (Cepacol Sore Throat sore throat #16 ea (benzocaine-menthol)) benzonatate 100 mg capsule 100 mg PO BID PRN cough #14 caps 09/16/24 doxycycline hyclate 100 mg tablet 100 mg PO BID 10 days #20 tabs 09/19/24 fluticasone propionate 230 2 puff inhalation Q12H 09/19/24 mcg-salmeterol 21 mcg/actuation ASTHMA/BRONCHITIS 30 days #12 HFA inhaler (Advair HFA) grams Allergies Allergy/AdvReac Type Severity Reaction Status Date / Time cyclobenzaprine Allergy Intermediate Dizziness Verified 09/19/24 15:52 [From Flexeril] orphenadrine [From Norflex] Allergy Intermediate Dizziness Verified 09/19/24 15:52 sarilumab [From Kevzara] Allergy Intermediate Rash Verified 09/19/24 15:52 Review of Systems Review of Systems: Yes all other systems are reviewed and are negative [facility] Past Medical History Attestation statement: The following information was validated with the patient. Source: old records reviewed and nursing notes reviewed Medical History Bronchitis Morbid obesity with BMI of 45.0-49.9, adult Sacroiliitis Rheumatic fever TIA (transient ischemic attack) Right-sided back pain History of COVID-19 Asthma exacerbation Hospital discharge follow-up Sacroiliitis Renal calculi Costovertebral angle tenderness Burning with urination Disc degeneration, lumbar Spondylosis of cervical spine Spondylosis of lumbar spine Pleuritic pain Restrictive lung disease Morbid obesity Asthma Dyslipidemia Essential hypertension Vaginal modesta Seropositive rheumatoid arthritis Rheumatoid arthritis Diabetes Surgical History History of cholecystectomy Hx of colonoscopy (09/01/19) History of surgery on wrist Family History Family History Father Diabetes mellitus Myocardial infarction Hypertension CVD (cardiovascular disease) Mother Diabetes mellitus CVD (cardiovascular disease) Sister No problems noted. Son No problems noted. Son No problems noted. Son No problems noted. Daughter Thyroiditis Daughter No problems noted. Daughter No problems noted. Daughter No problems noted. Daughter No problems noted. Other Asthma exacerbation Social History Social History Housing: Apartment Unable to assess alcohol history related to: Unknown Alcohol intake: unknown Patient Tobacco Use Status: Never used Tobacco e-Cigarette/Vaping Use: Never Used Second Hand Smoke Exposure: No service: No Current occupational status: disabled Sexual orientation: Straight/Heterosexual Gender identity: Female Cognitive needs: No Hearing needs: No Vision needs: No Physical Exam Vital Signs: Vital Signs: Last Vital Signs Temp 98.8 F 09/16/24 16:50 Pulse 85 09/16/24 16:50 Resp 18 09/16/24 16:50 BP 146/91 H 09/16/24 16:50 Pulse Ox 98 09/16/24 16:50 BMI result Body Mass Index 43.5 hypertensive, vitals otherwise wnl General: Well appearing, in no acute distress. Skin: Warm, dry, intact. No rashes or lesions. Head: Normocephalic, atraumatic. EENT: Hearing is intact b/l. Conjunctiva clear. Sclera is anicteric. PERRLA. EOM intact. Moist mucous membranes.? Posterior oropharynx without erythema or edema. No tonsillar exudates. No peritonsillar masses. Uvula midline. Controlling secretions and speaking in complete sentences. Right EAC without erythema or edema. Right TM erythematous and bulging, no effusion. No mastoid tenderness. Neck: Supple without LAD? Cardiac: Chest wall symmetric. RRR Lungs: Normal respiratory effort without accessory muscle use. CTA bilaterally. No rales, rhonchi, or wheezes.? Abdomen: Soft, non-tender, non-distended. No rebound tenderness or guarding. Positive BS x4. No CVAT. Back: No midline spinous or paraspinal tenderness. No step off deformity. Ext: Upper and lower extremities atraumatic, without tenderness, deformity, swelling or erythema. Full ROM throughout. Neuro: AOx3. Normal speech. Ambulating with steady gait. Psych: Appropriate mood and affect. Responds appropriately to questions. Course Course Course Narrative: This is a rapid medical exam. Deferred additional HPI, ROS, PE to primary provider. 64 yo female with history of asthma, DM, HTN here with complaints of cough, fever since last evening. Has been on amoxicillin x 2 days for right OM. Will obtain CXR, viral testing, strep testing. PEG Sneed APRN Reevaluation(s) Reevaluation #1: CXR does not reveal pneumonia or effusion. she tested negative for covid, flu, rsv, and strep. her exam is consistent with right OM which may be contributing to fevers. Concern for viral URI. will treat symptomatically. Patient has remained stable throughout ED visit today. Discussed worrisome signs and symptoms and when to return to the ED. All questions answered at this time. Patient is agreeable with disposition and stable for discharge. Medical Decision Making Medical Decision Making [facility] Narrative: 64 year old [place] Citizen speaking female presents to the ED today for evaluation of subjective fevers, cough, and sore throat beginning last night. Patient is hypertensive, vitals are otherwise wnl. She is nontoxic appearing and in NAD, lying comfortably on the exam bed. on exam, Moist mucous membranes.? Posterior oropharynx without erythema or edema. No tonsillar exudates. No peritonsillar masses. Uvula midline. Controlling secretions and speaking in complete sentences. Right EAC without erythema or edema. Right TM erythematous and bulging, no effusion. No mastoid tenderness. lungs clear. no respiratory distress. Differential diagnosis includes viral syndrome, strep throat, otitis media vs otitis externa, bronchitis, pneumonia Plan for viral/ strep swabs, and cxr. Differential Diagnosis Differential Diagnoses: The differential diagnosis associated with the presentation includes As above Admission/Observation Not indicated Lab Data [facility] Lab Attestation statement: I reviewed the patient's lab results. As above Labs: Lab Results 09/16/24 Range/Units 13:37 Influenza Type A (PCR) NEGATIVE (Negative) Influenza Type B (PCR) NEGATIVE (Negative) RSV RNA Qual (PCR) NEGATIVE (Negative) SARS-CoV-2 RNA (RT-PCR) NEGATIVE (Negative) S. pyogenes GrpA ZOIE Negative (Negative) Independent Interpretation I performed an independent interpretation of an: Plain X-Ray Interpretation: Chest x-ray without focal consolidation or infiltrate Radiology Impression Discussion of test interpretation with radiology: I have reviewed the radiologist's reading. Radiologist Impression: EXAMINATION: XR CHEST CLINICAL INFORMATION: cough, fever COMPARISON: Chest x-ray on 08/23/2024 TECHNIQUE: 2 views of the chest were obtained. FINDINGS: No significant abnormality is noted involving the heart, lungs, mediastinum, bony thorax or soft tissues. XR/XR chest 2V IMPRESSION: Unremarkable examination. Electronically signed by: Rubina Manrique MD 09/16/2024 02:11 PM [facility] External Record Review External record reviewed: Inpatient record Prescription Management I considered prescription management with: Pain Medication and Other (Cepacol, Tessalon Perles) Chronic Conditions Patient?s care impacted by: Other (asthma) Social Determinants Patient?s care significantly limited by Social Determinants of Health including: Other Social Determinant of Health Critical Care Time Critical Care Time Critical Care Time: No Discharge Plan Discharge Clinical Impression: Upper respiratory infection, viral, Acute otitis media Patient Disposition: Home, Self-Care Instructions: Ear Infection (ED), Viral Syndrome (ED) Additional Instructions: You tested negative for covid, flu, rsv, and strep throat. Your chest xray is normal and does not reveal pneumonia. You do not have a fever in the ED. You likely have a viral upper respiratory infection that does not require antibiotic treatment. Prednisone is a steroid that has been sent to your pharmacy to help with your breathing. This may cause an increase in your blood sugar. Monitor your blood sugars at home. Cepacol throat lozenges have been sent to your pharmacy for you to take as needed for sore throat. I have also sent Tessalon Perles to your pharmacy for you to take for your cough. Alter ibuprofen and Tylenol for fevers and body aches. Continue your amoxicillin at home for your right ear infection. Do not finish this early or skip any doses. Follow up with your primary care physician. If symptoms persist or worsen please return to the emergency department. The case of an emergency call 911. Prescriptions: New benzonatate 100 mg capsule 100 mg PO BID PRN (Reason: cough) Qty: 14 0RF Cepacol Sore Throat (scarlet-men) 15-2.6 mg lozenge 1 rafa mucous membrane Q2-4H PRN (Reason: sore throat) Qty: 16 0RF No Action albuterol sulfate 90 mcg/actuation HFA aerosol inhaler 2 inh PO Q4H PRN (Reason: shortness of breath or wheezing) Qty: 8.5 1RF (DME) FreeStyle Lite Strips Strip See Rx Instructions .ROUTE .MEDSUPPLY Qty: 50 11RF Rx Instructions: Use 1 test strip once a day (DME) blood-glucose meter [FreeStyle Lite Meter] Kit See Rx Instructions .ROUTE .MEDSUPPLY Qty: 1 0RF Rx Instructions: E11.9 ONCE A DAY (DME) lancets [FreeStyle Lancets] 28 gauge misc See Rx Instructions .ROUTE .MEDSUPPLY Qty: 100 11RF Rx Instructions: Use 1 lancet once a day as needed Orencia ClickJect 125 mg/mL auto-injector 125 mg subcut QWEEK Qty: 4 2RF (DME) blood pressure monitor Kit See Rx Instructions .Route Qty: 1 0RF Rx Instructions: As directed rosuvastatin 10 mg tablet 10 mg PO DAILY 90 Days Qty: 90 1RF diclofenac sodium [Aleve (diclofenac)] 1 % gel 2 g topical QID 30 Days Qty: 100 0RF Rx Instructions: apply to single elbow, wrist or hand; for hand includes palm/fingers/back of hand Bydureon BCise 2 mg/0.85 mL auto-injector 2 mg subcut Q7D 28 Days Qty: 3.4 6RF albuterol sulfate 2.5 mg /3 mL (0.083 %) solution for nebulization 2.5 mg inhalation Q4-6H PRN (Reason: shortness of breath or wheezing) 30 Days Qty: 90 2RF lisinopril 40 mg tablet 40 mg PO DAILY Qty: 90 0RF amoxicillin 500 mg capsule 500 mg PO BID 7 Days Qty: 14 0RF docusate sodium [Col-Rite] 100 mg capsule 100 mg PO BID Qty: 30 0RF meclizine 50 mg tablet 50 mg PO DAILY PRN (Reason: motion sickness) Qty: 14 0RF ibuprofen 600 mg tablet 600 mg PO Q8H PRN (Reason: pain) Qty: 14 0RF lidocaine 5 % adhesive patch,medicated 1 patch topical DAILY Qty: 30 0RF Rx Instructions: leave on most painful area for up to 12 hrs Cortisporin-TC 3.3-3-10-0.5 mg/mL drops,suspension 5 drp otic (ear) left QID Qty: 10 0RF sennosides [senna] 8.6 mg tablet 8.6 mg PO BEDTIME PRN (Reason: constipation) 7 Days Qty: 7 0RF nabumetone 750 mg tablet 750 mg PO BID 30 Days Qty: 60 6RF metformin 1,000 mg tablet 1,000 mg PO BID 90 Days Qty: 180 1RF doxycycline hyclate 100 mg tablet 100 mg PO BID 10 Days Qty: 20 0RF fluticasone propion-salmeterol [Advair HFA] 230-21 mcg/actuation HFA aerosol inhaler 2 puff inhalation Q12H 30 Days Qty: 12 3RF (DME) blood pressure test kit-large Kit See Rx Instructions .ROUTE .MEDSUPPLY Qty: 1 Rx Instructions: As directed (DME) cock up splint See Rx Instructions .Route .MEDSUPPLY Qty: 1 0RF Rx Instructions: wear on the right wrist at night gabapentin 300 mg capsule 300 mg PO TID 30 Days Qty: 90 6RF oxycodone 5 mg tablet 5 mg PO BID PRN (Reason: pain) 10 Days Qty: 20 0RF Rx Instructions: Partial Fill upon patient request. ipratropium-albuterol 0.5 mg-3 mg(2.5 mg base)/3 mL solution for nebulization 3 ml inhalation Q6H PRN (Reason: wheezing) Qty: 180 0RF Referrals: Aniyah Gonzalez MD [Primary Care Provider] - Interventions: ED Discharge Assessment Last Done: 09/16/24 16:50 Discharge Date/Time: 09/16/24 16:50 Print Language: [place] Citizen
[2024-09-16 13:51] LABS: IDNOW Serial# 08D9AD1C; Strep A Nucleic Acid Negative (Negative)
[2024-09-16 14:49] LABS: Influenza A PCR NEGATIVE (Negative); Influenza B PCR NEGATIVE (Negative); Resp Syncy Virus RNA Qual PCR NEGATIVE (Negative); SARS COV2 PCR INHOUSE NEGATIVE (Negative)
[2024-09-16 16:50] VITALS: BP 146/91; PULSE 85; RESP 18; TEMP 37.1; O2SAT 98
== END 2024-09-16 16:50 | disposition home or self-care (01) ==
PROVIDERS: Nurse Practitioner Family; Emergency Provider Emergency Medicine Emergency Medical Services; PCP Internal Medicine
DX: J06.9 Acute upper respiratory infection, unspecified (principal); H66.91 Otitis media, unspecified, right ear; Z03.818 Encounter for observation for suspected exposure to other biological agents ruled out; R05.9 Cough, unspecified; E11.9 Type 2 diabetes mellitus without complications; I10 Essential (primary) hypertension; J45.909 Unspecified asthma, uncomplicated; E78.5 Hyperlipidemia, unspecified; Z79.02 Long term (current) use of antithrombotics/antiplatelets; Z79.84 Long term (current) use of oral hypoglycemic drugs; Z79.899 Other long term (current) drug therapy
CPT/HCPCS: 0241U; 71046; 87651; 99282; 99283

== ENCOUNTER 2024-09-19 15:19 | Outpatient (AMB) | payer OTHER, SELFPAY ==
[2024-09-19 15:32] VITALS: BP 128/68; PULSE 70; O2SAT 97; BMI 40.4
--- NOTE | 2024-09-19 15:32 | A.OFFVIS_ITS ---
Vital Signs 09/19/24 15:32 Height 5 ft 1 in Weight 213 lb 13.574 oz BMI 40.4 BP 128/68 Blood Pressure Location Lt brachial Position Sitting Pulse 70 Pulse Source Pulse Oximeter Pulse Oximetry (%) 97 Oxygen Delivery Method Room Air Intake Visit Reasons: ASTHMA, Pulm Nodule Intake Note: pt is here for follow up stated she was dx with asthma, she is coughing and wheezing just had 3 days of prednisone and no better. Certified Coding Specialist Required: Yes Certified Coding Specialist Services: Certified Coding Specialist Present Certified Coding Specialist Name: [id number] Allergies cyclobenzaprine [From Flexeril] Allergy (Intermediate, Verified 09/19/24 15:52) Dizziness orphenadrine [From Norflex] Allergy (Intermediate, Verified 09/19/24 15:52) Dizziness sarilumab [From Kevzara] Allergy (Intermediate, Verified 09/19/24 15:52) Rash Medication List - Last Reconciled 09/19/24 by Deena Grande MD albuterol sulfate 90 mcg/actuation 2 inhalations PO Q4H PRN albuterol sulfate 2.5 mg (3 mL) inhalation Q4-6H PRN 30 days amoxicillin 500 mg PO BID 7 days benzocaine-menthol 15-2.6 mg (Cepacol Sore Throat (benzocaine-menthol)) 1 rafa mucous membrane Q2-4H PRN benzonatate 100 mg PO BID PRN blood pressure monitor As directed blood pressure test kit-large As directed blood sugar diagnostic (FreeStyle Lite Strips) Use 1 test strip once a day blood-glucose meter (FreeStyle Lite Meter kit) E11.9 ONCE A DAY [cock up splint wear on the right wrist at night ] diclofenac sodium 1% (Aleve (diclofenac)) 2 grams topical QID 30 days docusate sodium (Col-Rite) 100 mg PO BID exenatide microspheres ER (Bydureon BCise) 2 mg (0.85 mL) subcut Q7D 4 weeks fluticasone propion-salmeterol 230-21 mcg/actuation (Advair HFA) 2 puffs inhalation Q12H gabapentin 300 mg PO TID 30 days ibuprofen 600 mg PO Q8H PRN ipratropium-albuterol 0.5 mg-3 mg(2.5 mg base)/3 mL 3 mL inhalation Q6H PRN lancets (FreeStyle Lancets) Use 1 lancet once a day as needed lidocaine 5% 1 patch topical DAILY lisinopril 40 mg PO DAILY meclizine 50 mg PO DAILY PRN metformin 1,000 mg PO BID 90 days nabumetone 750 mg PO BID 30 days ryzxlngp-vyxqpp-KL-thonzonium 3.3-3-10-0.5 mg/mL (Cortisporin-TC) 5 drps otic (ear) left QID Orencia ClickJect (abatacept) 125 mg subcut QWEEK NS oxycodone 5 mg PO BID PRN 10 days rosuvastatin 10 mg PO DAILY 90 days sennosides (senna) 8.6 mg PO BEDTIME PRN 7 days Do you need a note to return to daycare/school/sports/work: No HPI HPI Pulm Nodule: Details: THIS 64 YEARS OLD FEMALE. IS GROSSLY OBESE, , SHE HAS HAD A NONSPECIFIC RIGHT CHEST WALL PAIN CONSIDERED TO BE NEUROPATHIC.. THERE HAVE BEEN NO EVIDENCE OF ANY CHEST WALL INJURY. AND PREVIOUS CHEST X-RAYS WELL CT SCAN HAVE NOT SHOWN ANY GROSS ABNORMALITY IN THE LUNGS. SHE IS KNOWN TO HAVE A 6 MM NODULE IN THE RIGHT UPPER LOBE WHICH HAS NOT CHANGED IN SIZE. SHE IS NONSMOKER. DENIES SYMPTOMS OF SLEEP APNEA. SHE HAS HAD ONGOING COUGH FOR LONG TIME, CONSIDERED TO HAVE REACTIVE AIRWAYS. HAD PULMONARY FUNCTION TEST IN AUGUST 2023 WHICH SHOWED MILD RESTRICTIVE PULMONARY DISORDER AND QUESTIONABLE MILD OBSTRUCTIVE DISORDER. IN THE PAST SHE HAS BEEN ON FLOVENT INHALER 2 PUFFS B.I.D. AND ALBUTEROL P.R.N.. RECENTLY SHE HAS DEVELOPED INCREASED COUGH, DUE TO CONSTANT IRRITATION IN THE THROAT, HAS BEEN SEEN IN THE EMERGENCY ROOM ABOUT TWICE, TREATED WITH A COURSE OF CEFPODOXIME, AND CURRENTLY COMPLETING A COURSE OF AMOXICILLIN 500 B.I.D.. SHE CONTINUES TO HAVE COUGH, WITH ANY DEEP BREATHING AND WHEN TALKING. SHE IS ON ADVAIR 230-212 PUFFS B.I.D. WELL ON IPRATROPIUM-ALBUTEROL UPDRAFTS Q 6 HOURS P.R.N.. STILL CONTINUES TO HAVE COUGH . LIST OF MEDS IS REVIEWED AND I SEE THAT SHE IS ON LISINOPRIL 40 MG DAILY FOR HYPERTENSION. THIS MAY BE CONTRIBUTING TO HER COUGH. 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 SO IS DIFFICULT TO COMPLETELY UNDERSTAND HER SYMPTOMS AND. EXPLAINED TO HER ABOUT THE TREATMENT. [facility] Medical History (Updated 09/19/24 @ 16:11 by Deena Grande MD) Bronchitis Morbid obesity with BMI of 45.0-49.9, adult Sacroiliitis Rheumatic fever TIA (transient ischemic attack) Right-sided back pain History of COVID-19 Asthma exacerbation Hospital discharge follow-up Sacroiliitis Renal calculi Costovertebral angle tenderness Burning with urination Disc degeneration, lumbar Spondylosis of cervical spine Spondylosis of lumbar spine Pleuritic pain Restrictive lung disease Morbid obesity Asthma Dyslipidemia Essential hypertension Vaginal modesta Seropositive rheumatoid arthritis Rheumatoid arthritis Diabetes Surgical History History of cholecystectomy Hx of colonoscopy (09/01/19) History of surgery on wrist Family History Father Diabetes mellitus Myocardial infarction Hypertension CVD (cardiovascular disease) Mother Diabetes mellitus CVD (cardiovascular disease) Sister No problems noted. Son No problems noted. Son No problems noted. Son No problems noted. Daughter Thyroiditis Daughter No problems noted. Daughter No problems noted. Daughter No problems noted. Daughter No problems noted. Social History Housing: Apartment Unable to assess alcohol history related to: Unknown Alcohol intake: unknown Patient Tobacco Use Status: Never used Tobacco e-Cigarette/Vaping Use: Never Used Second Hand Smoke Exposure: No service: No Current occupational status: disabled Sexual orientation: Straight/Heterosexual Gender identity: Female Cognitive needs: No Hearing needs: No Vision needs: No Female Reproductive History Menstrual Age of Menarche: 11 Date of menopause: 01/22/10 Review of Systems Const All systems reviewed & are unremarkable except as noted in HPI and below Eyes Reports no additional complaints ENT Reports nasal congestion (Mild off and on) Card Denies chest pain, Denies irregular heart rhythm and Denies leg edema Resp Reports as per HPI and Reports cough (Mild to moderate cough since the COVID 2 weeks ago) GI Reports constipation Reports other (Mild burning with urination) Musc Reports no additional complaints Skin/Breast Reports system reviewed and no additional complaints, except as documented Neuro Reports no additional complaints Psych Reports no additional complaints Physical Exam Vital Signs: Last Vital Signs Pulse 70 09/19/24 15:32 BP 128/68 09/19/24 15:32 Pulse Ox 97 09/19/24 15:32 Oxygen Delivery Method Room Air 09/19/24 15:32 BMI result Body Mass Index 40.4 Const General: comfortable (EXCEPT FOR FREQUENT COUGH.), no acute distress, alert and awake Orientation/consciousness: patient oriented x3 HEENT Other: NASOPHARYNX IS CLEAR ON EXAMINATION, NO EXCESSIVE MUCUS IS NOTED. Head: Yes normal to inspection General nose exam: No nasal polyps present and No nasal discharge present Face and sinus: Yes sinuses nontender Mouth: oropharynx normal Throat: Yes posterior oropharynx normal Eyes General: appearance normal, both eyes and all related structures Neck Neck: Yes normal visual inspection, Yes no lymphadenopathy, Yes trachea midline and Yes no JVD Thyroid: Thyroid normal Chest Chest palpation & inspection: normal inspection of the chest, normal palpation of entire chest wall and no tenderness Resp Other: Percussion note is resonant, breath sounds equal on both sides, moderately distant , Breath sounds are diminished over the basilar areas, otherwise both sides of the chest are clear. Cardio Palpation: normal PMI Rate: regular rate Rhythm: regular rhythm Heart sounds: no gallops and no murmurs GI Palpation (GI): Soft to palpation, nontender, No hepatosplenomegaly present and no masses Auscultation: normal bowel sounds Back/Spine/Pelvis Thoracic/Lumbar Spine: thoracic and lumbar spine normal to inspection, thoraco- lumbar ROM limited, thoraco-lumbar spasm and thoracic spinal tenderness Skin General skin exam: no rashes or lesions noted Neuro General: patient oriented x3 and no focal motor deficits Cranial nerves: Yes CN's II-XII intact bilaterally Extrem General: Yes normal to inspection, Yes no clubbing, cyanosis or edema and Yes no calf tenderness Psych Appearance: grossly normal Speech and movement: Normal speech and movement present Assessment & Plan Assessment & Plan (1) Morbid obesity with BMI of 40.0-44.9, adult: Comment: Continues to be grossly obese, BMI= 40.4 Code(s): E66.01 - Morbid (severe) obesity due to excess calories; Z68.41 - Body mass index [BMI] 40.0-44.9, adult Category: Medical Plan: PATIENT HAS BEEN OBESE FOR MANY YEARS, HAS NOT BEEN ABLE TO LOSE MUCH WEIGHT. DENIES SYMPTOMS OF SLEEP APNEA, . HAS POOR UNDERSTANDING AT PRESENT SHE IS MORE CONCERNED ABOUT HER BREATHING AND COUGH. BUT AT SOME POINT SHE WOULD NEED TO HAVE A SLEEP STUDY. (2) Thoracic spine pain: Comment: CHRONIC BACK PAIN AND NOW MORE CONFINED TO THE RIGHT CHEST WALL, IS PROBABLY RELATED TO CHRONIC DEGENERATIVE ARTHRITIS OF THE SPINE Code(s): M54.6 - Pain in thoracic spine Category: Medical Plan: PATIENT HAS HAD EXTENSIVE WORKUP FOR THE BACK AND RIGHT CHEST WALL PAIN. IMAGING STUDIES CONFIRM THAT SHE HAS LOT DEGENERATIVE ARTHRITIS IN THE CERVICAL AND LUMBAR SPINE CONTINUE PRESENT MEDICATIONS. (3) Bronchitis: Comment: THIS PATIENT IS HAVING ONGOING COUGH AND WHEEZING. HAS BEEN SEEN IN THE EMERGENCY ROOM OF [facility] . BEING TREATED WITH THE AMOXIL 500 B.I.D., HAS BEEN STARTED ON ADVAIR HFA 230-21 2 PUFFS B.I.D., AND ALBUTEROL P.R.N. THERE IS NO RELIEF IN COUGH. I THINK THE COUGH MAY BE PARTLY DUE TO LISINOPRIL Code(s): J40 - Bronchitis, not specified as acute or chronic Category: Medical Plan: I WILL LIKE TO STOP HER LISINOPRIL AND START HER ON EQUIVALENT DOES LOSARTAN. THE ONLY PROBLEM IS PATIENT IS TRAVELING TO [place] IN THE NEXT FEW DAYS AND WILL NOT BE COMING BACK FOR ABOUT A MONTH FOR FOLLOW-UP. IF I WAS TO CHANGE THE MEDICINE SHE NEEDS A CLOSE WATCH AND FOLLOW-UP FOR HER BLOOD PRESSURE. I WOULD TREAT HER EMPIRICALLY WITH DOXYCYCLINE 100 B.I.D. FOR 10 DAYS, FOR POSSIBLE PERSISTENT LOW-GRADE BRONCHITIS. Medications: New doxycycline hyclate 100 mg PO BID 20 tabs 0RF 10 days Changed From fluticasone propion-salmeterol 230-21 mcg/actuation (Advair HFA) 2 puffs inhalation Q12H 12 grams 3RF J45.909 - Unspecified asthma, uncomplicated To fluticasone propion-salmeterol 230-21 mcg/actuation (Advair HFA) 2 puffs inhalation Q12H 12 grams 3RF ASTHMA/BRONCHITIS 30 days J45.909 - Unspecified asthma, uncomplicated Coding Level of Care Code Est Pt Level 3 (34817) Diagnoses Morbid obesity with BMI of 40.0-44.9, adult E66.01; Z68.41 Thoracic spine pain M54.6 Bronchitis J40
== END 2024-09-19 15:53 | disposition home or self-care (01) ==
PROVIDERS: PCP Internal Medicine; Visit Provider Internal Medicine
DX: E66.01 Morbid (severe) obesity due to excess calories (principal); Z68.41 Body mass index [BMI] 40.0-44.9, adult; M54.6 Pain in thoracic spine; J40 Bronchitis, not specified as acute or chronic
CPT/HCPCS: 99213

== ENCOUNTER → 2024-09-19 15:19 | Outpatient (BNVA) | payer OTHER, SELFPAY | PROVIDERS: PCP Internal Medicine; Visit Provider Internal Medicine | DX: J40 Bronchitis, not specified as acute or chronic (principal); M54.6 Pain in thoracic spine; R91.1 Solitary pulmonary nodule; E66.01 Morbid (severe) obesity due to excess calories; Z68.41 Body mass index [BMI] 40.0-44.9, adult | CPT/HCPCS: 99212 ==

== ENCOUNTER 2024-10-25 10:18 | Outpatient (REF) | payer OTHER, SELFPAY ==
[2024-10-25 12:44] LABS: MANUAL DIFF FLAG NO
[2024-10-25 13:29] LABS: Basophils Percent Auto 0.4 % (0-2); Eosinophils Absolute Auto 0.6 X10*3/uL (0.0-0.4); Hemoglobin 12.7 g/dl (12.0-16.0); Imm Gran Abs Auto 0.03 X10*3/uL (0.00-0.03); Imm Gran Pct Auto 0.4 % (0.0-0.4); Lymphocytes Absolute Auto 1.6 X10*3/uL (1.2-4.9); Lymphocytes Percent Auto 23.5 % (20-40); Mean Corpuscular HGB Conc 34.3 g/dl (31.0-35.0); Mean Corpuscular Hemoglobin 31.7 pg (27.0-33.0); Mean Corpuscular Volume 92.3 fL (80.0-98.0); Mean Platelet Volume 11.9 fL (9.4-12.3); Monocytes Absolute Auto 0.5 X10*3/uL (0.1-1.2); Monocytes Percent Auto 7.4 % (2-11); Neutrophils Absolute Auto 4.1 x10*3/uL (2.0-8.3); Neutrophils Percent Auto 60.3 % (45-73); Platelet Count 177 X10*3/uL (160-400); Red Blood Count 4.01 X10*6/uL (4.20-5.50); Red Cell Distribution Width 12.2 % (11.0-16.0); White Blood Count 6.9 X10*3/uL (4.8-10.8)
[2024-10-25 13:41] LABS: Alanine Aminotransferase 31 U/L (0-31); Albumin Level 3.5 g/dL (3.5-5.0); Alkaline Phosphatase 94 U/L (39-117); Anion Gap 7 (12-20); Aspartate Amino Transferase 28 U/L (5-31); Bilirubin Total 0.6 mg/dL (0.0-1.0); Blood Urea Nitrogen 13 mg/dL (9-16); C Reactive Protein 1.14 mg/dL (< or = 0.50); Calcium 8.6 mg/dL (8.4-10.2); Carbon Dioxide 27 mmol/L (22-29); Chloride 113 mmol/L (96-108); Estimated Glomerular Filt Rate > 60; Glucose Random 172 mg/dL (60-115); Potassium 3.9 mmol/L (3.3-5.1); Sodium 143 mmol/L (135-145); Total Protein 6.7 g/dL (6.5-8.0)
[2024-10-25 13:59] LABS: Erythrocyte Sedimentation Rate 29 MM/HR (0-20)
[2024-10-25 14:01] LABS: HBc Num1 0.11 S/CO (0.00-0.79); HBsAGNum1 0.37 S/CO (0.00-0.99); Hepatitis A Antibody IgM 0.31 Index (0-0.79); Hepatitis B Core Antibody Nonreactive (Nonreactive); Hepatitis B Surface Antigen Negative (Negative); ~HepC Num1 0.11 S/CO (0.00-0.79); ~Hepatitis A Antibody IgM Nonreactive (Nonreactive); ~Hepatitis B Surface Antibody NONREACTIVE (Nonreactive); ~Hepatitis C Antibody Nonreactive (Nonreactive)
[2024-10-28 15:49] LABS: TS Negative Control Passed; TS Panel A 0; TS Panel B 0; TS Positive Control Passed; TSpotTB Negative (Negative)
== END 2024-10-25 10:19 | disposition home or self-care (01) ==
LOC: HO.LAB 10:18
PROVIDERS: PCP Internal Medicine; Visit Provider Student in an Organized Health Care Education/Training Program
DX: M05.9 Rheumatoid arthritis with rheumatoid factor, unspecified (principal); Z11.59 Encounter for screening for other viral diseases; Z11.7 Encounter for testing for latent tuberculosis infection; Z79.899 Other long term (current) drug therapy
CPT/HCPCS: 36415; 80053; 85025; 85652; 86140; 86481; 86704; 86706; 86709; 86803; 87340; 99212

== ENCOUNTER 2024-10-25 10:18 | Outpatient (AMB) | payer OTHER, SELFPAY ==
--- NOTE | 2024-10-25 10:59 | A.OFFVIS_ITS ---
Vital Signs 10/25/24 11:05 Height 5 ft 1 in Weight 212 lb 8.41 oz BMI 40.2 BP 134/90 H Blood Pressure Location Rt brachial Position Sitting Pulse 73 Pulse Source Pulse Oximeter Pulse Oximetry (%) 98 Oxygen Delivery Method Room Air Intake Visit Reasons: RA Intake Note: Patient presents for RA. Appointment Manager Required: Yes Appointment Manager Language: Management Professionals Services: Appointment Manager Present Appointment Manager Name: Vladimir Mattson288 Information Interpreted: non-clinical & clinical Allergies cyclobenzaprine [From Flexeril] Allergy (Intermediate, Verified 10/25/24 11:03) Dizziness orphenadrine [From Norflex] Allergy (Intermediate, Verified 10/25/24 11:03) Dizziness sarilumab [From Kevzara] Allergy (Intermediate, Verified 10/25/24 11:03) Rash Medication List - Last Reconciled 10/25/24 by Ely Coley MD albuterol sulfate 90 mcg/actuation 2 inhalations PO Q4H PRN albuterol sulfate 2.5 mg (3 mL) inhalation Q4-6H PRN 30 days benzocaine-menthol 15-2.6 mg (Cepacol Sore Throat (benzocaine-menthol)) 1 rafa mucous membrane Q2-4H PRN benzonatate 100 mg PO BID PRN blood pressure monitor As directed blood pressure test kit-large As directed blood sugar diagnostic (FreeStyle Lite Strips) Use 1 test strip once a day blood-glucose meter (FreeStyle Lite Meter kit) E11.9 ONCE A DAY [cock up splint wear on the right wrist at night ] diclofenac sodium 1% (Aleve (diclofenac)) 2 grams topical QID 30 days docusate sodium (Col-Rite) 100 mg PO BID doxycycline hyclate 100 mg PO BID 10 days exenatide microspheres ER (Bydureon BCise) 2 mg (0.85 mL) subcut Q7D 4 weeks fluticasone propion-salmeterol 230-21 mcg/actuation (Advair HFA) 2 puffs inhalation Q12H 30 days gabapentin 300 mg PO TID 30 days ibuprofen 600 mg PO Q8H PRN ipratropium-albuterol 0.5 mg-3 mg(2.5 mg base)/3 mL 3 mL inhalation Q6H PRN lancets (FreeStyle Lancets) Use 1 lancet once a day as needed lidocaine 5% 1 patch topical DAILY lisinopril 40 mg PO DAILY meclizine 50 mg PO DAILY PRN metformin 1,000 mg PO BID 90 days nabumetone 750 mg PO BID 30 days claiweaa-zwhvez-EB-thonzonium 3.3-3-10-0.5 mg/mL (Cortisporin-TC) 5 drps otic (ear) left QID Orencia ClickJect (abatacept) 125 mg subcut QWEEK NS oxycodone 5 mg PO BID PRN 10 days rosuvastatin 10 mg PO DAILY 90 days sennosides (senna) 8.6 mg PO BEDTIME PRN 7 days HPI Comments Details: 64yoF presents for follow-up of Seropositive deforming Rheumatoid Arthritis (RF++ CCP++). Patient stated that she ran out of her [employer] 1-2 months ago. She states that she has been pain in her back towards the right side, she has been having pain and swelling of both her feet but worse on the right, she was evaluated by a cloth boil off machine operator and surgery was discussed. [facility] Medical History Bronchitis Morbid obesity with BMI of 45.0-49.9, adult Sacroiliitis Rheumatic fever TIA (transient ischemic attack) Right-sided back pain History of COVID-19 Asthma exacerbation Hospital discharge follow-up Sacroiliitis Renal calculi Costovertebral angle tenderness Burning with urination Disc degeneration, lumbar Spondylosis of cervical spine Spondylosis of lumbar spine Pleuritic pain Restrictive lung disease Morbid obesity Asthma Dyslipidemia Essential hypertension Vaginal modesta Seropositive rheumatoid arthritis Rheumatoid arthritis Diabetes Surgical History History of cholecystectomy Hx of colonoscopy (09/01/19) History of surgery on wrist Family History Father Diabetes mellitus Myocardial infarction Hypertension CVD (cardiovascular disease) Mother Diabetes mellitus CVD (cardiovascular disease) Sister No problems noted. Son No problems noted. Son No problems noted. Son No problems noted. Daughter Thyroiditis Daughter No problems noted. Daughter No problems noted. Daughter No problems noted. Daughter No problems noted. Other Asthma exacerbation Social History Housing: Apartment Unable to assess alcohol history related to: Unknown Alcohol intake: unknown Patient Tobacco Use Status: Never used Tobacco e-Cigarette/Vaping Use: Never Used Second Hand Smoke Exposure: No service: No Current occupational status: disabled Sexual orientation: Straight/Heterosexual Gender identity: Female Cognitive needs: No Hearing needs: No Vision needs: No Female Reproductive History Menstrual Age of Menarche: 11 Date of menopause: 01/22/10 Review of Systems [facility] Reports back pain, Reports arthralgias and Reports joint swelling Physical Exam Vital Signs: Last Vital Signs Pulse 73 10/25/24 11:05 BP 134/90 H 10/25/24 11:05 Pulse Ox 98 10/25/24 11:05 Oxygen Delivery Method Room Air 10/25/24 11:05 BMI result Body Mass Index 40.2 Const General: cooperative, healthy appearing and comfortable Nutritional Appearance: obese morbidly obese Orientation/consciousness: patient oriented x3 Limitations: no limitations HEENT Head: Yes normocephalic and Yes atraumatic Mouth: moist mucous membranes Resp Effort & Inspection: normal respiratory effort and able to speak in complete sentences Neuro General: patient oriented x3 Extrem Other: Right wrist with significantly limited flexion and extension. 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 No active synovitis Bilateral pitting edema of both ankles and feet Right foot with large bunion and fibular deviation of toes Negative MTP squeeze test bilaterally Tenderness below her right scapula on palpation, when these areas were palpated with the sthetoscope they were not tender Assessment & Plan Assessment & Plan (1) Seropositive rheumatoid arthritis: Comment: ++RF+++CCP deforming dx in her 40s Humira:08/29 - 03/30 -active disease on exam Enbrel:04/29-08/30 - active disease on exam Xeljanz:08/30-12/29- active disease on exam Kevzara: 01/2021- stopped due to rash Orencia: 01/2021 - present effective MTX in the past - transaminitis Code(s): M05.9 - Rheumatoid arthritis with rheumatoid factor, unspecified Category: Medical Plan: This is a 64-year-old female with seropositive erosive RA who presents for follow-up. Patient stated that she ran out of her Orencia 1-2 months ago. On exam there is no significant synovitis however I discussed with patient that she does have chronic deforming disease and there is risk for further deformities. Advised patient to restart her Orencia as soon as possible Labs today Follow-up in 6 months (2) High risk medication use: Code(s): Z79.899 - Other long filler cigar roller machine (current) drug therapy Category: Medical Plan: Side effects of Orencia were discussed with the patient in detail including increased risk of infection, , reactivation of latent TB, possible increased risk of solid and skin tumors. Patient fully aware. Advised patient to seek medical care TAYLOR if patient has an infection and advised patient to stop the medication until the infection is resolved. Plan I spent 26 minutes reviewing patient's chart, evaluating patient, ordering diagnostic workup, counseling patient and documenting in the chart Orders: Orders T Spot TB Today Z11.1 - Encounter for screening for respiratory tuberculosis Medications: Refilled Orencia ClickJect (abatacept) 125 mg subcut QWEEK 4 mL 2RF NS M05.9 - Rheumatoid arthritis with rheumatoid factor, unspecified Coding Level of Care Code Est Pt Level 4 (87593) Diagnoses Seropositive rheumatoid arthritis M05.9 High risk medication use Z79.899
[2024-10-25 11:05] VITALS: BP 134/90; PULSE 73; O2SAT 98; BMI 40.2
== END 2024-10-25 11:53 | disposition home or self-care (01) ==
PROVIDERS: PCP Internal Medicine; Visit Provider Student in an Organized Health Care Education/Training Program
DX: M05.79 Rheumatoid arthritis with rheumatoid factor of multiple sites without organ or systems involvement (principal); Z79.899 Other long term (current) drug therapy
CPT/HCPCS: 99214

== ENCOUNTER 2024-10-26 15:30 | Outpatient (AMB) | payer OTHER, SELFPAY ==
[2024-10-26 15:35] VITALS: BP 130/70; PULSE 70; O2SAT 98; BMI 39.8
--- NOTE | 2024-10-26 15:35 | A.OFFVIS_ITS ---
Vital Signs 10/26/24 15:35 Height 5 ft 1 in Weight 210 lb 8.663 oz BMI 39.8 BP 130/70 Blood Pressure Location Lt brachial Position Sitting Pulse 70 Pulse Source Pulse Oximeter Pulse Oximetry (%) 98 Oxygen Delivery Method Room Air Intake Visit Reasons: pulm nodule Intake Note: pt is here for follow up and is feeling short of breath [place], she took antibiotics but is still short of breath, just flew in 10/24/24. Still has dry cough. but this am she did cough with blood tinged sputum. Employment Representative Required: Yes Employment Representative Services: Employment Representative Present Employment Representative Name: Lolly ([place]) Allergies cyclobenzaprine [From Flexeril] Allergy (Intermediate, Verified 10/26/24 16:51) Dizziness orphenadrine [From Norflex] Allergy (Intermediate, Verified 10/26/24 16:51) Dizziness sarilumab [From Kevzara] Allergy (Intermediate, Verified 10/26/24 16:51) Rash Medication List - Last Reconciled 10/26/24 by Deena Grande MD albuterol sulfate 90 mcg/actuation 2 inhalations PO Q4H PRN albuterol sulfate 2.5 mg (3 mL) inhalation Q4-6H PRN 30 days benzocaine-menthol 15-2.6 mg (Cepacol Sore Throat (benzocaine-menthol)) 1 rafa mucous membrane Q2-4H PRN benzonatate 100 mg PO BID PRN blood pressure monitor As directed blood pressure test kit-large As directed blood sugar diagnostic (FreeStyle Lite Strips) Use 1 test strip once a day blood-glucose meter (FreeStyle Lite Meter kit) E11.9 ONCE A DAY [cock up splint wear on the right wrist at night ] diclofenac sodium 1% (Aleve (diclofenac)) 2 grams topical QID 30 days docusate sodium (Col-Rite) 100 mg PO BID exenatide microspheres ER (Bydureon BCise) 2 mg (0.85 mL) subcut Q7D 4 weeks fluticasone propion-salmeterol 230-21 mcg/actuation (Advair HFA) 2 puffs inhalation Q12H 30 days gabapentin 300 mg PO TID 30 days ibuprofen 600 mg PO Q8H PRN ipratropium-albuterol 0.5 mg-3 mg(2.5 mg base)/3 mL 3 mL inhalation Q6H PRN lancets (FreeStyle Lancets) Use 1 lancet once a day as needed lidocaine 5% 1 patch topical DAILY meclizine 50 mg PO DAILY PRN metformin 1,000 mg PO BID 90 days nabumetone 750 mg PO BID 30 days gkxnadfg-hbnoho-BT-thonzonium 3.3-3-10-0.5 mg/mL (Cortisporin-TC) 5 drps otic (ear) left QID Orencia ClickJect (abatacept) 125 mg subcut QWEEK NS oxycodone 5 mg PO BID PRN 10 days rosuvastatin 10 mg PO DAILY 90 days sennosides (senna) 8.6 mg PO BEDTIME PRN 7 days Do you need a note to return to daycare/school/sports/work: No HPI HPI pulm nodule: Details: This 64 years old mostly Irish-speaking female is here for follow-up. When she was in [place] she was feeling a little better but continue to have frequent cough. About 2 weeks ago just before coming back to [facility] she l had influenza A, for which she was treated over there. But she continues to have increased amount of cough. She has cough when she talks, also if she exerts, and cough is worse at night. She has been prescribed benzonatate to take b.i.d. but it does not help she has also been using benzyl cane-menthol mouth washes without much relief. So at present her main problem is ongoing cough, yesterday she noticed a trace of blood after cough. * I have noticed that she is on lisinopril 40 mg a day to treat hypertension, and I am wondering if this is contributing to her cough. [facility] Medical History Bronchitis Morbid obesity with BMI of 45.0-49.9, adult Sacroiliitis Rheumatic fever TIA (transient ischemic attack) Right-sided back pain History of COVID-19 Asthma exacerbation Hospital discharge follow-up Sacroiliitis Renal calculi Costovertebral angle tenderness Burning with urination Disc degeneration, lumbar Spondylosis of cervical spine Spondylosis of lumbar spine Pleuritic pain Restrictive lung disease Morbid obesity Asthma Dyslipidemia Essential hypertension Vaginal modesta Seropositive rheumatoid arthritis Rheumatoid arthritis Diabetes Surgical History History of cholecystectomy Hx of colonoscopy (09/01/19) History of surgery on wrist Family History Father Diabetes mellitus Myocardial infarction Hypertension CVD (cardiovascular disease) Mother Diabetes mellitus CVD (cardiovascular disease) Sister No problems noted. Son No problems noted. Son No problems noted. Son No problems noted. Daughter Thyroiditis Daughter No problems noted. Daughter No problems noted. Daughter No problems noted. Daughter No problems noted. Other Asthma exacerbation Social History Housing: Apartment Unable to assess alcohol history related to: Unknown Alcohol intake: unknown Patient Tobacco Use Status: Never used Tobacco e-Cigarette/Vaping Use: Never Used Second Hand Smoke Exposure: No service: No Current occupational status: disabled Sexual orientation: Straight/Heterosexual Gender identity: Female Cognitive needs: No Hearing needs: No Vision needs: No Female Reproductive History Menstrual Age of Menarche: 11 Date of menopause: 01/22/10 Review of Systems Const All systems reviewed & are unremarkable except as noted in HPI and below Eyes Reports no additional complaints ENT Reports nasal congestion (Mild off and on) Card Denies chest pain, Denies irregular heart rhythm and Denies leg edema Resp Reports as per HPI and Reports cough (Mild to moderate cough since the COVID 2 weeks ago) GI Reports constipation Reports other (Mild burning with urination) Musc Reports no additional complaints Skin/Breast Reports system reviewed and no additional complaints, except as documented Neuro Reports no additional complaints Psych Reports no additional complaints Physical Exam Vital Signs: Last Vital Signs Pulse 70 10/26/24 15:35 BP 130/70 10/26/24 15:35 Pulse Ox 98 10/26/24 15:35 Oxygen Delivery Method Room Air 10/26/24 15:35 BMI result Body Mass Index 39.8 Const General: comfortable (EXCEPT FOR FREQUENT COUGH.), no acute distress, alert and awake Orientation/consciousness: patient oriented x3 HEENT Other: NASOPHARYNX IS CLEAR ON EXAMINATION, NO EXCESSIVE MUCUS IS NOTED. Head: Yes normal to inspection General nose exam: No nasal polyps present and No nasal discharge present Face and sinus: Yes sinuses nontender Mouth: oropharynx normal (Throat is very clear no exudates noted) Throat: Yes posterior oropharynx normal Eyes General: appearance normal, both eyes and all related structures Neck Neck: Yes normal visual inspection, Yes no lymphadenopathy, Yes trachea midline and Yes no JVD Thyroid: Thyroid normal Chest Chest palpation & inspection: normal inspection of the chest, normal palpation of entire chest wall and no tenderness Resp Other: Percussion note is resonant, breath sounds equal on both sides, moderately distant , Breath sounds are diminished over the basilar areas, otherwise both sides of the chest are clear. The only issue is that with every deep breath she starts having lot of cough. Cardio Palpation: normal PMI Rate: regular rate Rhythm: regular rhythm Heart sounds: no gallops and no murmurs GI Palpation (GI): Soft to palpation, nontender, No hepatosplenomegaly present and no masses Auscultation: normal bowel sounds Back/Spine/Pelvis Thoracic/Lumbar Spine: thoracic and lumbar spine normal to inspection, thoraco- lumbar ROM limited, thoraco-lumbar spasm and thoracic spinal tenderness Skin General skin exam: no rashes or lesions noted Neuro General: patient oriented x3 and no focal motor deficits Cranial nerves: Yes CN's II-XII intact bilaterally Extrem General: Yes normal to inspection, Yes no clubbing, cyanosis or edema and Yes no calf tenderness Psych Appearance: grossly normal Speech and movement: Normal speech and movement present Assessment & Plan Assessment & Plan (1) Morbid obesity with BMI of 40.0-44.9, adult: Comment: Continues to be grossly obese, BMI= 40.4 but denies symptoms of ORTEGA Code(s): E66.01 - Morbid (severe) obesity due to excess calories; Z68.41 - Body mass index [BMI] 40.0-44.9, adult Category: Medical Plan: Talked about her weight but she is not ready for any dietary program at this time (2) Pulmonary nodules: Comment: CT scan of the chest in December 2021 showed, bilateral pulmonary nodules, But 1 in the right upper lobe 6 mm in size. Patient is nonsmoker, and has an average risk factor. REASSURED AND EXPLAINED ABOUT THE NODULE. LAST CT SCAN OF THE CHEST ON FEBRUARY 17, AGAIN SHOWED PULMONARY NODULE 6 MM IN THE RIGHT UPPER LOBE, OTHER NONSPECIFIC OPACITIES HAD CLEARED. Code(s): R91.8 - Other nonspecific abnormal finding of lung field Category: Medical Plan: No further follow-up with CT scans is needed. (3) Restrictive lung disease: Comment: Clinically she has restrictive lung disease mainly because of her obesity. Code(s): J98.4 - Other disorders of lung Category: Medical Plan: Advised to lose some weight and do deep. Breathing exercises But because of her ongoing cough she is not able to do deep breathing exercises. (4) Asthma exacerbation: Comment: This patient does have features of bronchial asthma, gets worse with any respiratory respiratory infections . At present it is made worse with ongoing cough. Code(s): J45.901 - Unspecified asthma with (acute) exacerbation Category: Medical Plan: She is advised to use fluticasone-salmeterol HFA 230-212 puffs b.i.d. And ipratropium-albuterol solution in the nebulizer Q 6 hours p.r.n. (5) Cough: Comment: Ongoing cough is the main distressing symptom at this time. This does not seem to be related to any active respiratory infection. After reviewing her whole list of medications I think lisinopril 40 mg daily, may be contributing to her cough. Code(s): R05.9 - Cough, unspecified Category: Medical Plan: Patient is advised to stop lisinopril. I have prescribed losartan 100 mg tablet [address] of lisinopril. I have educated the patient about this through the medical imaging technician.. May use Robitussin DM 2 tsp t.i.d. p.r.n. to control cough. Coding Level of Care Code Est Pt Level 4 (54399) Diagnoses Morbid obesity with BMI of 40.0-44.9, adult E66.01; Z68.41 Pulmonary nodules R91.8 Restrictive lung disease J98.4 Asthma exacerbation J45.901 Cough R05.9
== END 2024-10-26 16:08 | disposition home or self-care (01) ==
PROVIDERS: PCP Internal Medicine; Visit Provider Internal Medicine
DX: E66.01 Morbid (severe) obesity due to excess calories (principal); Z68.41 Body mass index [BMI] 40.0-44.9, adult; R91.8 Other nonspecific abnormal finding of lung field; J98.4 Other disorders of lung; J45.901 Unspecified asthma with (acute) exacerbation; R05.9 Cough, unspecified
CPT/HCPCS: 99214

== ENCOUNTER → 2024-10-26 15:30 | Outpatient (BNVA) | payer OTHER, SELFPAY | PROVIDERS: PCP Internal Medicine; Visit Provider Internal Medicine | DX: J45.901 Unspecified asthma with (acute) exacerbation (principal); J98.4 Other disorders of lung; R91.8 Other nonspecific abnormal finding of lung field; R05.9 Cough, unspecified; E66.01 Morbid (severe) obesity due to excess calories; Z68.39 Body mass index [BMI] 39.0-39.9, adult | CPT/HCPCS: 99212 ==

== ENCOUNTER 2024-10-31 15:54 | Outpatient (AMB) | payer OTHER, SELFPAY ==
--- NOTE | 2024-10-31 16:05 | A.OFFPC_ITS ---
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 Mobile Home Lot Utility Worker Language: Laboratory Asst Name: Aniyah Friend MD Information Interpreted: non-clinical & clinical Accompanied by: Self / Same As Patient Allergies cyclobenzaprine [From Flexeril] Allergy (Intermediate, Verified 10/31/24 16:17) Dizziness orphenadrine [From Norflex] Allergy (Intermediate, Verified 10/31/24 16:17) Dizziness sarilumab [From Kevzara] Allergy (Intermediate, Verified 10/31/24 16:17) Rash Medication List - Last Reconciled 10/31/24 by Aniyah Friend MD albuterol sulfate 90 mcg/actuation 2 inhalations PO Q4H PRN albuterol sulfate 2.5 mg (3 mL) inhalation Q4-6H PRN 30 days blood pressure monitor As directed blood pressure test kit-large As directed blood sugar diagnostic (FreeStyle Lite Strips) Use 1 test strip once a day blood-glucose meter (FreeStyle Lite Meter kit) E11.9 ONCE A DAY [cock up splint wear on the right wrist at night ] diclofenac sodium 1% (Aleve (diclofenac)) 2 grams topical QID 30 days docusate sodium (Col-Rite) 100 mg PO BID exenatide microspheres ER (Bydureon BCise) 2 mg (0.85 mL) subcut Q7D 4 weeks fluticasone propion-salmeterol 230-21 mcg/actuation (Advair HFA) 2 puffs inhalation Q12H 30 days gabapentin 300 mg PO TID 30 days ibuprofen 600 mg PO Q8H PRN ipratropium-albuterol 0.5 mg-3 mg(2.5 mg base)/3 mL 3 mL inhalation Q6H PRN lancets (FreeStyle Lancets) Use 1 lancet once a day as needed lidocaine 5% 1 patch topical DAILY losartan 100 mg PO DAILY 30 days meclizine 50 mg PO DAILY PRN metformin 1,000 mg PO BID 90 days nabumetone 750 mg PO BID 30 days wahryydq-gsotdb-ON-thonzonium 3.3-3-10-0.5 mg/mL (Cortisporin-TC) 5 drps otic (ear) left QID Orencia ClickJect (abatacept) 125 mg subcut QWEEK NS rosuvastatin 10 mg PO DAILY 90 days sennosides (senna) 8.6 mg PO BEDTIME PRN 7 days Tobacco use date assessed: 10/31/24 Fall risk assessment: No Falls in past year Last assessed Fall Risk: 10/31/24 Dental Screening Dental Screen Date: 10/31/24 Did you have a dental visit in the last 12 months?: No Did you have a dental problem in the last 6 months where you did not have access to dental care?: No Was dental information given to patient?: Patient has dentist HPI HPI Comments History of Present Illness Details The patient is a 64-year-old female presenting for her annual physical examination and management of chronic health conditions. She has a history of Type 2 Diabetes Mellitus with recent Hemoglobin A1c levels noted at 7.5, indicating slight improvement. Medications include Trulicity, which was not previously dispensed due to a lapse in the medication management plan. Diabetic control is also managed with recent blood glucose readings of 172 mg/dL. She reports hypertension treated with Rosuvastatin. The patient experiences chronic constipation managed with Docusate. She mentions discomfort in her right ear which is persistent but specific timing of onset is unclear in the conversation. - Bone densitometry scheduled for March 12. - Mammography scheduled for May 2025. - Upcoming routine cholesterol check due to no current high cholesterol levels. - Lifestyle modification discussed with a focus on weight reduction. [facility] Medical History Bronchitis Morbid obesity with BMI of 45.0-49.9, adult Sacroiliitis Rheumatic fever TIA (transient ischemic attack) Right-sided back pain History of COVID-19 Asthma exacerbation Hospital discharge follow-up Sacroiliitis Renal calculi Costovertebral angle tenderness Burning with urination Disc degeneration, lumbar Spondylosis of cervical spine Spondylosis of lumbar spine Pleuritic pain Restrictive lung disease Morbid obesity Asthma Dyslipidemia Essential hypertension Vaginal modesta Seropositive rheumatoid arthritis Rheumatoid arthritis Diabetes Surgical History History of cholecystectomy Hx of colonoscopy (09/01/19) History of surgery on wrist Family History Father Diabetes mellitus Myocardial infarction Hypertension CVD (cardiovascular disease) Mother Diabetes mellitus CVD (cardiovascular disease) Sister No problems noted. Son No problems noted. Son No problems noted. Son No problems noted. Daughter Thyroiditis Daughter No problems noted. Daughter No problems noted. Daughter No problems noted. Daughter No problems noted. Other Asthma exacerbation Social History (Updated 10/31/24 @ 16:25 by Aniyah Friend MD) Housing: Apartment Alcohol intake: never Patient Tobacco Use Status: Never used Tobacco e-Cigarette/Vaping Use: Never Used Second Hand Smoke Exposure: No service: No Current occupational status: disabled Sexual orientation: Straight/Heterosexual Gender identity: Female Cognitive needs: No Hearing needs: No Vision needs: No Female Reproductive History Menstrual Age of Menarche: 11 Date of menopause: 01/22/10 Questionnaire PHQ-9 Over the last 2 weeks, how often have you been bothered by any of the following problems? 1. Little interest or pleasure in doing things: not at all 2. Feeling down, depressed, or hopeless: not at all 3. Trouble falling or staying asleep, or sleeping too much: not at all 4. Feeling tired or having little energy: not at all 5. Poor appetite or overeating: not at all 6. Feeling bad about yourself - or that you are a failure or have let yourself or your family down: not at all 7. Trouble concentrating on things, such as reading the newspaper or watching television: not at all 8. Moving or speaking so slowly that other people could have noticed. Or the opposite - being so fidgety or restless that you have been moving around a lot more than usual: not at all 9. Thoughts that you would be better off or of hurting yourself in some way: not at all Total score: 0 Depression Screening Interpretation: Negative Depression Screening Done: Yes 50683 - PHQ-9 Billing: Yes Source: Developed by Drs. Spencer Gonzalez, Anamaria Bartlett, Clayton Azar and colleagues, with an educational anna from [employer]. Thrive Questionnaire Date Thrive assessed: 10/31/24 I am a: Patient What is your living situation today?: I have a steady place to live Within the past 12 months, did the food you bought not last and you didn't have the money to get more?: Never true Within the past 12 months, did you worry whether your food would run out before you got money to buy more?: Never true Do you have trouble paying for medicines?: No Do you have trouble getting transportation to medical appointments?: No Do you have trouble paying your heating and electricity bill?: No Do you have trouble taking care of your child, family member or friend?: No Do you have trouble with day-to-day activities such as bathing, preparing meals, shopping, managing finances, etc.?: No Are you currently unemployed and looking for a job?: No Are you interested in more education?: No Please select the resources that you would like help with: None Currently or been in a relationship where the following occur: No concerns reported THRIVE Score: 0 AUDIT C Alcohol Use Questionnaire (AUDIT-C) 1. How often do you have a drink containing alcohol?: Never Total Score: 0 Score Reviewed/Action Taken: No SONA-7 AMB Questionnaire SONA-7 Date SONA - 7 assessed: 10/31/24 Feeling nervous, anxious, or on edge: 0 = Not at all Not being able to stop or control worryin = Not at all Worrying too much about different things: 0 = Not at all Trouble relaxin = Not at all Being so restless that it is hard to sit still: 0 = Not at all Becoming easily annoyed or irritable: 0 = Not at all Feeling afraid as if something awful might happen: 0 = Not at all Total SONA-7 score (0-4 normal; 5-9 mild; 10-14 moderate; 15-21 severe): 0 Source: Developed by Drs. Spencer Gonzalez, Anamaria Bartlett, Clayton Azar and colleagues, with an educational anna from [employer]. SONA-7 Assessment Billing SONA-7 Assessment Tool: SONA-7 Assessment 42772 Review of Systems Const All systems reviewed & are unremarkable except as noted in HPI and below Card Denies chest pain at rest, Denies chest pain with activity, Denies edema, Denies irregular heart rhythm, Denies claudication, Denies dyspnea, Denies dyspnea on exertion, Denies orthopnea, Denies paroxysmal nocturnal dyspnea and Denies slow heart rate Resp Denies cough, Denies dyspnea and Denies dyspnea on exertion GI Denies abdominal pain, Denies change in bowel habits, Denies excessive flatus, Denies nausea and Denies vomiting Physical exam (Primary Care) Vital Signs: Last Vital Signs BP 132/80 10/31/24 16:07 BMI result Body Mass Index 40.1 BMI Assessment/Plan discussion: High BMI High, discussed plan: lifestyle, weight reduction, dietary and physical activity Tobacco/Smoking Status: Tobacco use Status Tobacco use date assessed 10/31/24 10/31/24 16:10 Patient Tobacco Use Status Never used Tobacco 10/31/24 16:25 e-Cigarette/Vaping Use Never Used 10/31/24 16:25 PHQ-9: PHQ-9 Score PHQ-9: Total score 0 10/31/24 16:18 Depression Screening Interpretation: Negative Thrive Assessment: Date of Thrive Assessment Date Thrive assessed 10/31/24 10/31/24 16:10 Currently or been in a relationship where the following occur: No concerns reported HENMT Head: Yes normal to inspection, Yes normocephalic and Yes atraumatic Ears: external ears normal Eyes General: appearance normal, both eyes and all related structures Eyelids: Yes eyelids normal Conjunctivae: conjunctivae normal Neck Neck: Yes normal visual inspection and Yes supple Resp Effort & Inspection: normal respiratory effort Auscultation: clear to auscultation bilaterally Cardio Jugular venous distension: no JVD Rate: regular rate Rhythm: regular rhythm Heart sounds: S1 normal heart sound present and S2 normal heart sound present GI Inspection: Yes normal to inspection Palpation (GI): Soft to palpation and nontender Auscultation: normal bowel sounds Skin General skin exam: no rashes or lesions noted Neuro General: no focal motor deficits Extrem General: Yes full ROM Psych Appearance: grossly normal Office Procedures Flu Questionnaire Does the patient have a severe egg allergy?: No Results AMB Hemoglobin A1c AMB Hemoglobin A1c 7.5 % Last Edit by JAMES Monge on 10/31/24 16:1 4 Immunizations Fluarix Triv [id number] (PF) 45 mcg (15 mcg x 3)/0.5 mL IM syringe Performing Provider: Aniyah rFiend MD Performing Location: [facility] Documented (not given) by: JAMES Monge on 10/31/24 16:11 Reason Not Given: Patient Refused Results Reviewed Results Reviewed: Laboratory Last Values Hgb A1c (Clinic) 7.5 % (4.0-6.0) H 10/31/24 16:10 Coding Level of Care Code Est Pt Prev Care 40-64y(86777) Diagnoses Physical exam Z00.00 Morbid obesity with BMI of 40.0-44.9, adult E66.01; Z68.41 Lacunar infarction I63.81 Type 2 diabetes mellitus with hyperglycemia, without long-term current use of insulin E11.65 Diabetes mellitus type: type 2 Diabetes mellitus medical terminologist insulin use: without fpc use Diabetes mellitus complication status: with hyperglycemia Seropositive rheumatoid arthritis M05.9 Additional Codes SONA-7 Assessment Billing - SONA-7 Assessment Tool: SONA-7 Assessment 26006 ([id number]) PHQ-9 - 12043 - PHQ-9 Billing: Yes ([id number]) Time Spent (min) 31 Assessment & Plan Assessment & Plan (1) Physical exam: Code(s): Z00.00 - Encounter for general adult medical examination without abnormal findings Category: Medical (2) Morbid obesity with BMI of 40.0-44.9, adult: Comment: Continues to be grossly obese, BMI= 40.4 but denies symptoms of ORTEGA Code(s): E66.01 - Morbid (severe) obesity due to excess calories; Z68.41 - Body mass index [BMI] 40.0-44.9, adult Category: Medical (3) Lacunar infarction: Code(s): I63.81 - Other cerebral infarction due to occlusion or stenosis of small artery Category: Medical (4) Diabetes: Code(s): E11.9 - Type 2 diabetes mellitus without complications Category: Medical Qualifiers: Diabetes mellitus type: type 2 Diabetes mellitus medical terminologist insulin use: without fpc use Diabetes mellitus complication status: with hypergl ycemia Qualified Code(s): E11.65 - Type 2 diabetes mellitus with hyperglycemia (5) Seropositive rheumatoid arthritis: Comment: ++RF+++CCP deforming dx in her 40s Humira:08/29 - 03/30 -active disease on exam Enbrel:04/29-08/30 - active disease on exam Xeljanz:08/30-12/29- active disease on exam Kevzara: 01/2021- stopped due to rash Orencia: 01/2021 - present effective MTX in the past - transaminitis Code(s): M05.9 - Rheumatoid arthritis with rheumatoid factor, unspecified Category: Medical Plan - Continue monitoring diabetes with emphasis on glycemic control through continued use of Trulicity; ensure medication adherence. - Monitor blood pressure and continue hypertension management with Rosuvastatin. - Evaluate and manage constipation with current Docusate therapy. - Avoid known allergens causing rash. - Monitor ear discomfort; consider ENT evaluation if symptoms persist. Patient was informed and verbally consented to the use of an ambient scribe for clinic note documentation during this visit. During the visit, we discussed the overall management and control of Type 2 Diabetes Mellitus and Hypertension. Emphasized the importance of continuing the prescribed medications, including the use of Trulicity for diabetes management. Addressed the slight increase in C-reactive protein and the need for further monitoring of cholesterol levels. Discussed scheduled bone densitometry and mammography as per health maintenance guidelines. We also talked about lifestyle modifications focused on weight reduction to improve health outcomes. Orders: Orders AMB Hemoglobin A1c Today E11.65 - Type 2 diabetes mellitus with hyperglycemia Influenza 9316-2925 Immunization Today Z23 - Encounter for immunization Lipid Panel Today E78.5 - Hyperlipidemia, unspecified Medications: New dulaglutide (Trulicity) 0.75 mg (0.5 mL) subcut QWEEK 6.5 mL 1RF 90 days Discontinued exenatide microspheres ER (Bydureon BCise) Discontinued Reason: Patient Completed Course 2 mg (0.85 mL) subcut Q7D 4 weeks 3.4 mL 6RF Patient Instructions: - Continue using Trulicity as prescribed for diabetes management. - Maintain current blood pressure medication regimen. - Use Docusate as needed for constipation. - Report any new or worsening rash to ensure medication allergies are managed. - Return for scheduled preventive screening tests including bone densitometry and mammography.
[2024-10-31 16:07] VITALS: BP 132/80; BMI 40.1
--- OUTSIDE RECORDS SUMMARY | 2024-10-31 17:39 | XMS_ITS | Clinical Summary ---
Author Organization [facility] [place] Address [address] [place] [address] Care Team Providers Care Construction Equipment Mechanic Name Role Phone Aniyah Friend MD Primary Care Provider [phone] Social History Tobacco Use Types Packs/Day Years Used Date Smoking Tobacco: Never Assessed Sex and Gender Information Value Date Recorded Sex Assigned at Not on file Gender Identity Not on file Sexual Orientation Not on file Plan of Treatment Upcoming Encounters Date Type Department Care Team ([facility] st Contact Info) Description 11/01/2024 1:30 PM EST Consult Orthopedic Surgery - [place] [id number] [id number] Delbert Blackburn, DPPippa [address] [facility] [address] [place] [address] Health Maintenance Due Date Last Done Comments Breast Cancer Screening 1960 DTaP,Tdap,and Td Vaccines (1 - Tdap) 01/18/1979 Cervical Cancer Screening: P ap Smear 01/18/1981 Zoster Vaccines (1 of 2) 01/18/2010 COVID-19 Vaccine ( - 2023-2 5 season) 2024 Influenza Vaccine (#1) 2024 Colorectal Cancer Screening: Colonoscopy 07/21/2024 Depression Screening 07/21/2024 HIV Screening 07/21/2024 Hepatitis C Screening 07/21/2024 Social Influencers of Health Screening 07/21/2024 RSV Immunization Patients 60 + Years Old (1 - 1-dose 75+ series) 01/18/2035 HIB Vaccines Aged Out No longer eligi ble based on patient's age to complete this topic HPV Vaccines Aged Out No longer eligi ble based on patient's age to complete this topic Hepatitis A Vaccines Aged Out No long er eligible based on patient's age to complete this topic Hepatitis B Vaccines Aged Out No long er eligible based on patient's age to complete this topic IPV Vaccines Aged Out No longer eligi ble based on patient's age to complete this topic MMR Vaccines Aged Out No longer eligi ble based on patient's age to complete this topic Meningococcal ACWY Vaccine Aged Out N o longer eligible based on patient's age to complete this topic Pneumococcal Vaccine: Pediat rics (0 to 5 Years) and At-Risk Patients (6 to 64 Years) Aged Out No longer eligible b ased on patient's age to complete this topic RSV Immunization Patients Un [place] 20 months Aged Out No longer eligible b ased on patient's age to complete this topic Varicella Vaccines Aged Out No longer eligible based on patient's age to complete this topic Care Teams Construction Equipment Mechanic Relationship Specialty Start Date End Date Aniyah Friend MD [address] [place] [address] , [address] [facility]: [facility] [place], [place] PCP - General 06/28/24
== END 2024-10-31 16:33 | disposition home or self-care (01) ==
PROVIDERS: PCP Internal Medicine; Visit Provider Internal Medicine
DX: Z00.00 Encounter for general adult medical examination without abnormal findings (principal); E66.01 Morbid (severe) obesity due to excess calories; Z68.41 Body mass index [BMI] 40.0-44.9, adult; I63.81 Other cerebral infarction due to occlusion or stenosis of small artery; E11.65 Type 2 diabetes mellitus with hyperglycemia; M05.9 Rheumatoid arthritis with rheumatoid factor, unspecified

== ENCOUNTER → 2024-10-31 15:54 | Outpatient (BNVA) | payer OTHER, SELFPAY | PROVIDERS: PCP Internal Medicine; Visit Provider Internal Medicine | DX: Z00.00 Encounter for general adult medical examination without abnormal findings (principal); E66.01 Morbid (severe) obesity due to excess calories; Z68.41 Body mass index [BMI] 40.0-44.9, adult; I63.81 Other cerebral infarction due to occlusion or stenosis of small artery; E11.65 Type 2 diabetes mellitus with hyperglycemia; M05.9 Rheumatoid arthritis with rheumatoid factor, unspecified; Z71.3 Dietary counseling and surveillance | CPT/HCPCS: 83036; 96127; 99396 ==

== ENCOUNTER 2024-11-04 10:16 | Emergency (ER) | payer OTHER, SELFPAY ==
--- NOTE | ~2024-11-04 | CT_ITS ---
CLINICAL HISTORY: flank pain CT abdomen and pelvis without contrast Comparison: US/[place]/SR - US ABDOMEN LIMITED - 04/29/24 08:[address]/[place]/SR - CT ABDOMEN PELVIS WO IV CON - 04/17/24 15:55 EDT Findings: No consolidation or pleural effusion. Mild dependent changes within the lower lungs. Hypodense liver parenchyma. Abdominal organs are otherwise unremarkable. No urolithiasis or hydronephrosis. Prior cholecystectomy. Umbilical hernia containing fat. No bowel edema or obstruction. Pelvic contents unremarkable. Normal appendix. No acute fracture. IMPRESSION: No acute findings. This document has been electronically signed by: Celia Bravo MD on 11/04/2024 17:44:16
[2024-11-04 10:41] VITALS: BP 182/74; PULSE 76; RESP 20; TEMP 36.3; O2SAT 98; BMI 39.3
[2024-11-04 13:00] LABS: Appearance Urine Cloudy; Color Urine Yellow; Glucose Urine UA 100 mg/dL (Negative); Leukocyte Esterase Urine Large (3+) (Negative); Nitrite Urine Negative (Negative); PH 5.5 (5.0-9.0); UMIC TRIGGER UACC YES; Urine Blood Large (3+) (Negative); Urine Ketones Negative (Negative); Urine Protein 30 (1+) mg/dL (Neg-Trace)
[2024-11-04 13:03] LABS: Bacteria Urine None Seen (None Seen); Hyaline Casts Urine 0-2 /LPF (0-2); Squamous Epithelial Cell Urine 0-2 /HPF (0-2); UACC Culture Trigger YES; WBC Urine >50 /HPF (0-5)
[2024-11-04 13:08] VITALS: BP 163/79; PULSE 71; RESP 20; TEMP 36.3; O2SAT 97
[2024-11-04 13:29] LABS: Baso%MD 0.7 %; Eos%MD 5.8 %; Hematocrit 39.9 % (37.0-47.0); Hemoglobin 13.8 g/dl (12.0-16.0); IG%MD 0.4 %; Lymph%MD 19.6 %; Mean Corpuscular HGB Conc 34.6 g/dl (31.0-35.0); Mean Corpuscular Hemoglobin 31.4 pg (27.0-33.0); Mean Corpuscular Volume 90.9 fL (80.0-98.0); Mean Platelet Volume 10.7 fL (9.4-12.3); Mono%MD 5.7 %; Neut%MD 67.8 %; Platelet Count 177 X10*3/uL (160-400); Red Blood Count 4.39 X10*6/uL (4.20-5.50); Red Cell Distribution Width 12.1 % (11.0-16.0); White Blood Count 8.6 X10*3/uL (4.8-10.8)
[2024-11-04 13:41] LABS: Alanine Aminotransferase 29 U/L (0-31); Albumin Level 3.7 g/dL (3.5-5.0); Alkaline Phosphatase 96 U/L (39-117); Anion Gap 8 (12-20); Aspartate Amino Transferase 29 U/L (5-31); Bilirubin Direct 0.2 mg/dL (0.0-0.5); Bilirubin Total 0.6 mg/dL (0.0-1.0); Blood Urea Nitrogen 13 mg/dL (9-16); Calcium 9.3 mg/dL (8.4-10.2); Carbon Dioxide 26 mmol/L (22-29); Chloride 111 mmol/L (96-108); Creatinine Clr Calc Pharmacy 91.6; Estimated Glomerular Filt Rate > 60; Glucose Random 93 mg/dL (60-115); Lipase 15 U/L (8-78); Potassium 4.1 mmol/L (3.3-5.1); Sodium 141 mmol/L (135-145); Total Protein 7.5 g/dL (6.5-8.0)
[2024-11-04 13:59] LABS: Atypical Lymph Absolute Manual 0.1 x10*3/uL; Atypical Lymphs Percent Manual 1 % (0-6); Band Neutrophils Percent 2 % (3-5); Eosinophils Absolute Manual 0.6 X10*3/uL (0.0-0.4); Eosinophils Percent Manual 7 % (0-4); Lymphocytes Absolute Manual 1.8 X10*3/uL (1.2-4.9); Lymphocytes Percent Manual 21 % (20-40); Monocytes Absolute Manual 0.2 X10*3/uL (0.1-1.2); Monocytes Percent Manual 2 % (2-11); Neutrophils Absolute Manual 5.9 X10*3/uL (2.0-8.3); Neutrophils Percent Manual 67 % (45-73)
[2024-11-04 14:01] LABS: Large Platelet PRESENT; Platelet Estimate NORMAL (NORMAL); Platelet Morphology Comment NOTED; RBC Morphology NORMAL
--- OUTSIDE RECORDS SUMMARY | 2024-11-04 16:07 | XMS_ITS ---
Author Organization [facility] Address [facility] [place] [address] Care Team Providers Care Hardboard Supervisor Name Role Phone PAIGE OCAMPO Primary Care Provider MEZA FRANCO, MANNY Unavailable Allergies Allergen (clinical drug ingredient) Drug/Non Drug Allergy documented on EMR Reaction Allergy Type Onset Date Status Flexeril dizziness Drug Allergy Active Norflex dizziness Drug Allergy Active Results Component Value Reference Range Notes CHEST-2 VIEWS Reviewed date:09/29/2024 02:40:29 PM Interpretation: Performing Lab: Notes/Report: See Below For Report [id number].Report Text See Below For Report COVID-19 ANTIGEN Reviewed date:09/29/2024 02:13:34 PM Interpretation: Performing Lab: Notes/Report: 1 MAYANK For in vitros Diagnostic Use Only. been authorized by FDA under EUA for use by authorized laboratories. -- COVID-19 Ag Test has not been FDA cleared or approved; but has COVID-19 Ag test and may cause false negative results. bacterial infections. The presence of mupirocin may interfere with the Negative test results are not intended to rule in other non-SARS viral should be treated as presumptive and confirmation with a molecular assay. LICENSE.: [id number] CLIA: [id number] -- Negative results, from patients with symptom onset beyond seven days, DIRECTOR: JAIME SARAVIA differentiate between SARS-CoV and SARS-CoV-2. Num: [id number] bacterial infection or co-infection with other viruses and do not Exp: 12/08/2024 [place] [address] necessary to determine infection status. Positive results do not rule out Paid 5 Cents [address] [address] correlation with patient history and other diagnostic information is Pat. No.: [id number] [facility] [place] -- Positive results indicate the presence of COVID-19 antigen, but clinical Col. Tabitha. Med. P.R. ORDER [id number] PERFORMED AT: COVID-19 Ag NEGATIVE NEGATIVE METHOD: STATUS COVID-19/FLU A&B INFLUENZA AG A & B Reviewed date:09/29/2024 02:13:23 PM Interpretation: Performing Lab: Notes/Report: REPORTED TO: MS. Poncho DELUNA DATE & TIME: 09/29/2024 2:00PM A negative test result may occur if the level of antigen in a sample is MT: LCDA. Santi BARILLAS READ BACK: OK below the detection limit of the test. Test results must be evaluated in conjunction with other clinical data. Col. Tabitha. Med. P.R. ORDER [id number] PERFORMED AT: Negative test results do not rule out other non-influenza viral infections Pat. No.: [id number] [facility] [place] Positive test results do not identify specific influenza A virus subtypes Paid 5 Cents [address] Individuals who recieved nasally influenza A vaccine may have positive Exp: 12/08/2024 [place] [address] test results for up to three days after vaccination. Num: [id number] DIRECTOR: JAIME SARAVIA LICENSE.: [id number] CLIA: [id number] INFLUENZA A ANTIGEN POSITIVE NEGATIVE INFLUENZA B ANTIGEN NEGATIVE NEGATIVE METHOD: STATUS COVID-19/FLU A&B REASON FOR VISIT TAMARA NOBLES RN. BSN Lic. [id number], SHARDA Das 09/29/2024 11:22:32 AM > PACIENTE ACUDE A EVALUACION, REFIERE TOS, DOLOR DE CUERPO Y FIEBRE.ELIOIA TEREZA, TAMARA NOBLES RN. BSN Lic. [id number], MIGUEL 09/29/2024 11:23:59 AM > Medications Medication SIG (Take, Route, Frequency, Duration) Notes Start Date End Date Status predniSONE 5 MG 1 tablet Orally Once a day for 30 day(s) Active metFORMIN HCl 500 MG 1 tablet with meals Orally Once a day for 30 day(s) 07/21/2018 Active Nabumetone 750 MG 1 tablet Orally Twic e a day for as needed 07/21/2018 Active Montelukast Sodium 10 MG 1 tablet in the evening Orally Once a day for 30 day(s) 07/21/2018 Active Loratadine 10 MG 1 tablet Orally Once a day 09/29/2024 Active Oseltamivir Phosphate 75 MG 1 capsule Orally Twice a day for 5 days 09/29/2024 Active Gabapentin 300 MG 1 capsule Orally TWO times a day for 30 day(s) 02/09/2019 Active Lisinopril-hydroCHLOROthi azide 20-25 MG 1 tablet Orally Once a day for 30 day(s) 07/21/2018 Active Sapxvnmm-Jmjzhiagz-BN 1 % 4 drops into a ffected ear RIGHT EAR Otic Three times a day for 7 days 01/12/2019 Not-Taking Tussin DM 100-10 MG/5ML 10 mL as needed Orally Every 6 hours 09/29/2024 Active Ranitidine HCl 300 MG 1 tablet at bedtim e Orally Once a day for 30 day(s) 07/21/2018 Active Naproxen 500 MG 1 tablet if pain Ora lly every 12 hrs 09/29/2024 Active Social History Tobacco Use: Social History Observation Description Date Details (start date - stop date) Never Smoker NA - NA Tobacco Use/Smoking Question Answer Notes Are you a nonsmoker Alcohol Screen (Audit-C) Question Answer Notes Did you have a drink containing alcohol in the p ast year? No Points 0 Interpretation Negative Sexual History Question Answer Notes Had sex in the past 12 months (vaginal, oral, or anal)? No Have you ever had a Sexually transmitted disease ? No Last menstrual period postmenopausal AUDIT-C (Standard) Question Answer Notes Did you have a drink containing alcohol in the p ast year? No Points 0 Interpretation Negative Tobacco Control (Standard) Question Answer Notes Tobacco use: Nonsmoker Section Notes: TAMARA RIBERAN Lic. [id number], SHARDA M 09/29/2024 11:15:44 AM > Vital Signs Temperature 36.6 C 09/29/2024 Blood pressure systolic 139 mm Hg 09/29/20 Blood pressure diastolic 80 mm Hg 024 Heart Rate 90 /min 09/29/2024 Respiratory Rate 19 /min 09/29/2024 Height 61 in 09/29/2024 Weight 211 lbs 09/29/2024 BMI 39.86 kg/m2 09/29/2024 Oximetry 99 % 09/29/2024 Height-cm 154.94 cm 09/29/2024 Weight-kg 95.71 kg 09/29/2024 DYLAN ALVAREZ RN, BSN LIC. [id number], [facility] 09/29/2024 02:45:29 PM > Se reese Signos vitales para proceso de renato. Encounters Encounter Location Date Provider Diagnosis PAIGE OCAMPO [address] [place], [place] [id number] 09/29/2024 MANNY MEZA FRANCO URTI (acute upper respiratory infection) J06.9 ; Influenza A J10.1 and Acute cough R05.1 Assessments Encounter Date Diagnosis (ICD Code) Assessment Notes Treatment Notes Treatment Clinical Notes Section Notes 09/29/2024 URTI (acute upper respiratory infection) (ICD-10 - J06.9) Tx: 1) Toradol 60 mg IM x1 2) Benadryl 25 mg PO x1 3) Guaifenesin DM 10 ml PO x1 MEZA FRANCO, MANNY 09/29/2024 01:24:37 PM > 09/29/2024 Influenza A (ICD-10 - J10.1) 09/29/2024 Acute cough (ICD-10 - R05.1) 09/29/2024 Other DYLAN ALVAREZ RN, BSN LIC. [id number], [facility] 09/29/2024 01:25:28 PM > Se recibe paciente correcto y se corroboran alergias. Se le educa sobre tratamiento ordenado, refiere entender. Se realizan muestras de laboratorio kyle orden medica Influenza y Covid 19, bajo medidas asepticas y de seguridad. Se rotulan las muestras debidamente y se llevan al laboratorio. Se administran medicamentos kyle orden medica Toradol 60 mg IM en gluteo deondre cuadrante superior externo, bajo medidas asepticas y de seguridad. Paciente no presenta reaccion adversa al momento. Se ubica paciente en Myra de espera. Se orienta a notificar cambios, refiere entender. DYLAN ALVAREZ RN, BSN LIC. [id number], [facility] 09/29/2024 01:25:29 PM > MIKIE SAM RN BSN, Lic. [id number] 09/29/2024 02:00:01 PM > Se recibe llamada del laboratorio de la Lcda. Santi Barillas reportando influenza A positivo; se le notifica al Dr. Meza. MIKIE SAM RN BSN, Lic. [id number], [facility] 09/29/2024 02:00:02 PM > DYLAN ALVAREZ RN, BSN LIC. [id number], [facility] 09/29/2024 02:44:16 PM > Paciente es dado de renato en condicion estable, alerta y orientado en tiempo, lugar y persona. Se educa sobre instrucciones medicas, tratamiento a seguir en el hogar, seguimiento con medico primario, y a pasar con el personal de servicio al paciente para completar proceso de renato, refiere entender. Vitales medidos y documentados previos al renato. Paciente refiere escala de dolor en 0 al momento del renato. DYLAN ALVAREZ RN, BSN LIC. [id number], [facility] 09/29/2024 02:44:27 PM > Plan Of Treatment Medication Medication Name Sig Start Date Stop Date Notes Loratadine 10 MG 1 tablet Orally Once a day 09/29/2024 Oseltamivir Phosphate 75 MG 1 capsule Or ally Twice a day for 5 days 09/29/2024 Tussin DM 100-10 MG/5ML 10 mL as needed Orally Every 6 hours 09/29/2024 Naproxen 500 MG 1 tablet if pain Ora lly every 12 hrs 09/29/2024 Treatment Notes Assessment Notes URTI (acute upper respiratory infection) Tx: 1) Toradol 60 mg IM x1 2) Benadryl 25 mg PO x1 3) Guaifenesin DM 10 ml PO x1 MANNY SMALL 09/29/2024 01:24:37 PM > Other DYLAN ALVAREZ RN, BSN LIC. [id number] [facility] 09/29/2024 01:25:28 PM > Se recibe paciente correcto y se corroboran alergias. Se le educa sobre tratamiento ordenado, refiere entender. Se realizan muestras de laboratorio kyle orden medica Influenza y Covid 19, bajo medidas asepticas y de seguridad. Se rotulan las muestras debidamente y se llevan al laboratorio. Se administran medicamentos kyle orden medica Toradol 60 mg IM en gluteo deondre cuadrante superior externo, bajo medidas asepticas y de seguridad. Paciente no presenta reaccion adversa al momento. Se ubica paciente en Myra de espera. Se orienta a notificar cambios, refiere entender. DYLAN ALVAREZ RN, BSN LIC. [id number], [facility] 09/29/2024 01:25:29 PM > MIKIE SAM RN BSN, Lic. [id number] 09/29/2024 02:00:01 PM > Se recibe llamada del laboratorio de la Lcda. Santi Barillas reportando influenza A positivo; se le notifica al Dr. Meza. MIKIE SAM RN BSN, Lic. [id number] 09/29/2024 02:00:02 PM > DYLAN ALVAREZ RN, BSN LIC. [id number] [facility] 09/29/2024 02:44:16 PM > Paciente es dado de renato en condicion estable, alerta y orientado en tiempo, lugar y persona. Se educa sobre instrucciones medicas, tratamiento a seguir en el hogar, seguimiento con medico primario, y a pasar con el personal de servicio al paciente para completar proceso de renato, refiere entender. Vitales medidos y documentados previos al renato. Paciente refiere escala de dolor en 0 al momento del renato. DYLAN ALVAREZ RN, BSN LIC. [id number], NATHANIEL Das 09/29/2024 02:44:27 PM > Progress Notes * Laura HOWARDDOB: (64 yo F)Acc No.[id number]:09/29/2024 Patient:?Shania HOWARD zeina Provider:?Manny Franco M.D. :1960???Age:64 Y???Sex:Female D ate:09/29/2024 Address:[address] [place], [place] [id number] Pcp:PAIGE OCAMPO Check In:11:24 AM BOTBlaireck O ut:02:47 PM BOT Subjective: * Chief Complaints: * ???1. TAMARA NOBLES RN. BSN Lic. [id number], SHARDA 09/29/2024 11:22:32 AM > PACIENTE ACUDE A EVALUACION, REFIERE TOS, DOLOR DE CUERPO Y FIEBRE.CATEGORIA TEREZA. 2. TAMARA NOBLES RN. BSN Lic. [id number], SHARDA Das 09/29/2024 11:23:59 AM >. * HPI: ???Depression Screening:?PHQ-2 (2015 Edition)?Little interest or pleasure in doing things??Not at all,?Feeling down, depressed, or hopeless??Not at all,?Total Score?0.?MEDICO:?64 y/o female patient that came due cough, sensation of fever, congestion and body aches of 3 days of evolution. No dyspnea. MANNY SMALL 09/29/2024 01:28:19 PM > REEVALUATION: Influenza A reported Positive. Outcome discussed with patient and her relative. MANNY SMALL 09/29/2024 02:42:58 PM >. * ROS:?ER:?Sistem Integumentario?Observacion del turno 7 AM - 3 PM, Observacion revela piel integra sin quemaduras, reseques, erupciones o ulceras.?Sistema Cardiorespiratorio?Observacion del turno 7 AM - 3 PM,, Paciente reporta, tos.?Sistema gastrointestinal?Observacion del turno 7 AM - 3 PM, Observacion revela no diarreas, vomitos o erika abdominales.?Sistema musculoskeletal?Observacion del turno 7 AM - 3 PM, , Paciente reporta, fiebre, dolor de cuerpo.?Sistema genitourinario?Observacion del turno 7 AM - 3 PM, Observacion revela no alteracion, hematuria u orina con dolor.?Modo de llegada?Modo de llegada, caminando, vino acompanado,.?Estado emocional?Se observa paciente, calmado.?Estado mental?Paciente, alerta, orientado, en tiempo, lugar y persona.?TAMARA NOBLES RN. BSN Lic. [id number], SHARDA Das 09/29/2024 11:14:47 AM >. * Medical History:?ARTRITIS RE UMATOIDEA, DIABETICA, ASMA, RENATO PRESION. * Surgical History:?cholecyste ctomy . * Hospitalization/Major Diagno stic Procedure:?Denies Past Hospitalization. * Social History:?SIM History:?SIM Social History?Funtional Status >65?As Follows,?Se bana sin asistencia?Yes,?Se viste sin asistencia?Yes,?Camina sin asistencia?Yes,?Padece de incontinencia?No,?Paciente orientado en?Yes,?Se siente edmundo en [place] se realaciona con las personas a diario?Si,?Drug use?No,?Sexual Orientation?Straight (not lesbian or blackburn),?Gender Identity?Female,?Household?As follows,?Lali de dependientes?1,?Cuantos viven en la casa??1,?..Ultimo nivel escolar?12, ..Vivienda?con radha,?..Sospecha de maltrato?No,?..Viaje reciente fuera de [place] <2 meses?No,?Transfusion/inmunisaciones?Siguiente,?..Transfusiones de maura?No,?..Reaccion a transfusion?No,?..Inmunizacion?Si,?..Inmunizacion Tetano?Si,?Nececidades para comunicacion o acomodo?Ninguna,?Paciente o familiar comprende requeridos e instrucciones de [place] doctor??Si,?Paciente expresa chrissie para el cumplimiento de [place] tratamiento?No.?Drug/Alcohol:?AUDIT-C (Standard)?Did you have a drink containing alcohol in the past year??No,?Points?0,?Interpretation?Negative.?Tobacco Use:?Tobacco Use/Smoking?Are you a?nonsmoker.?Tobacco Control (Standard)?Tobacco use:?Nonsmoker.?Sexual History:?Sexual History?Had sex in the past 12 months (vaginal, oral, or anal)??No,?Have you ever had a Sexually transmitted disease??No,?Last menstrual period?postmenopausal.?Drugs/Alcohol:?Drugs?Have you used drugs other than those for medical reasons in the past 12 months??No.?Alcohol Screen (Audit-C)?Did you have a drink containing alcohol in the past year? No,?Points?0,?Interpretation?Negative.?Caffeine?Intake:?2-3 cups per day.?Do you smoke marijuana?: Denies. Do you drink alcohol?: No. ???Myra de Emergencia:?Historial Social?Vivienda?Con radha,?Sospecha de maltrato, violencia, u abuso sexual??No,?Viaje?No viajo fuera de P.R.,?Inmunizacion al norah?Si,?Inmunizacion contra el tetano?Si,?Transfuciones componentes sanguineos?No,?Declina ser transfundido?Si,?Modo de llegada?Ambulando,?Acompanado pro? Hijo.?COVID-19:?Cuestionario Riesgo COVID-19?Fecha?09/29/2024,?Presenta algun sintoma:?Ninguno,?Se simmons realizado recientemente la prueba rapida o molecular para el COVID 19?No, Conoce a alguien que haya sido positivo al COVID-19?No,?Simmons participado de eventos publicos, sociales o familiares en los ultimos 14 alicea?Yes,?Cuando?,?Simmons viajado fuera de [place] o simmons estado en contacto con alguien que haya estado fuera de [place] en los pasados 14 alicea?No,?Se simmons vacunado contra el COVID-19?Refuerzo.?TAMARA NOBLES RN. BSN Lic. [id number], SHARDA M 09/29/2024 11:15:44 AM >. * Medications:?Taking Lisinopr il-hydroCHLOROthiazide 20-25 MG Tablet 1 tablet Orally Once a day , Taking metFORMIN HCl 500 MG Tablet 1 tablet with meals Orally Once a day , Taking Montelukast Sodium 10 MG Tablet 1 tablet in the evening Orally Once a day , Taking Nabumetone 750 MG Tablet 1 tablet Orally Twice a day , Taking predniSONE 5 MG Tablet 1 tablet Orally Once a day , Taking Ranitidine HCl 300 MG Tablet 1 tablet at bedtime Orally Once a day , Taking Gabapentin 300 MG Capsule 1 capsule Orally TWO times a day , Not-Taking/PRN Kzvutspn-Iegbkjpzj-QZ 1 % Solution 4 drops into affected ear RIGHT EAR Otic Three times a day , Medication List reviewed and reconciled with the patient * Allergies:?Norflex: dizzines s - Allergy, Flexeril: dizziness - Allergy. Objective: * Vitals: Ht 61in?? 09/29/2024 11:24:28 AM BOT?? Wt* 211 lbs?? 09/29/2024 11:24:28 AM BOT?? YES ENIA?TAMARA FELTONRIO RN. BSN Lic. [id number] BMI* 39.86Index?? 09/29/2024 11:24:28 AM BOT?? YES ENIA?TAMARA FELTONRIO RN. BSN Lic. [id number] Pain scale* 51-10?? 09/29/2024 11:24:28 AM BOT?? YES ENIA?TAMARA FELTONRIO RN. BSN Lic. [id number] BP* 139/80mm Hg?? 09/29/2024 02:45:32 PM BOT?? GEN ESIS?DYLAN ALVAREZ RN, BSN LIC. [id number] 142/70 mm Hg?? 09/29/2024 11:28:47 AM BOT?? YES ENIA?TAMARA FELTONRIO RN. BSN Lic. [id number] HR* 90/min?? 09/29/2024 02:45:32 PM BOT?? GEN ESIS?DYLAN ALVAREZ RN, BSN LIC. [id number] 108 /min?? 09/29/2024 11:26:26 AM BOT?? YES ENIA?TAMARA FELTONRIO RN. BSN Lic. [id number] RR* 19/min?? 09/29/2024 02:45:32 PM BOT?? GEN ESIS?DYLAN ALVAREZ RN, BSN LIC. [id number] 23 /min?? 09/29/2024 11:26:26 AM BOT?? YES ENIA?TAMARA FELTONRIO RN. BSN Lic. [id number] Temp* 36.6C?? 09/29/2024 02:45:32 PM BOT?? GEN ESIS?DYLAN ALVAREZ RN, BSN LIC. [id number] 37.5 C?? 09/29/2024 11:26:26 AM BOT?? YES ENIA?MCDONALD MALLORIE RN. BSN Lic. [id number] Oxygen sat %* 99%?? 09/29/2024 02:45:32 PM BOT?? GEN ESIS?DYLAN ALVAREZ RN, BSN LIC. [id number] 96 %?? 09/29/2024 11:26:26 AM BOT?? YES ENIA?MCDONALD MALLORIE RN. BSN Lic. [id number] LMP* POSTMENOPAUSAL?? 09/29/2024 11:26:55 AM BOT?? YE SANDY?TAMARA MALLORIE RN. BSN Lic. [id number] Glucose:* 230MG/DL?? 09/29/2024 11:28:47 AM BOT?? YES ENIA?TAMARA FELTONRIO RN. BSN Lic. [id number] Ht-cm* 154.94 cm?? 09/29/2024 11:24:28 AM BOT?? YES ENIA?TAMARA NOBLES RN. BSN Lic. [id number] Wt-kg* 95.71 kg?? 09/29/2024 11:24:28 AM BOT?? YES ENIA?TAMARA NOBLES RN. BSN Lic. [id number] DYLAN ALVAREZ RN, BSN LIC. [id number], [facility] 09/29/2024 02:45:29 PM > Se reese Signos vitales para proceso de renato. . * ???Past Orders: ???Lab:INFLUENZA AG A & B (O rder Date - 09/29/2024) (Collection Date & Time - 09/29/2024 01:25 PM) ? Value Reference Range ?INFLUENZA A POSITIVE A NEGATIVE - ?INFLUENZA B NEGATIVE NEGATIVE - ???Lab:COVID-19 ANTIGEN (Ord er Date - 09/29/2024) (Collection Date & Time - 09/29/2024 01:25 PM) ???Imaging:CHEST-2 VIEWS (Or mercedez Date - 09/29/2024) (Performed Date - 09/29/2024) * Examination: ???Fisico Regular: ???General: Alert, active and oriented x 3, no respiratory distress, not acutely ill HEENT: SAL, EOMI, Yellow nasal discharge Heart: Regular rate/rhythm Lungs: CTA x 2, no wheezing/rales/rhonchi Abdomen: Normal bowel sounds, soft and depressible, no guarding or rebound tenderness Extremities: no edema Neuro: CN II-XII intact, No weakness or limitations Skin: No rash nor cyanosis MANNY SMALL 09/29/2024 01:26:19 PM > . Assessment: * Assessment: 1.?Influenza A - J10.1 (Prim sangita)???2.?URTI (acute upper respiratory infection) - J06.9???3.?Acute cough - R05.1??? Plan: * Treatment: 2.?URTI (acute upper respira tory infection)?LAB: INFLUENZA AG A & B (Collection Date & Time - 09/29/2024 01:25 PM) ?LAB: COVID-19 ANTIGEN (Collection Date & Time - 09/29/2024 01:25 PM) Notes: Tx: 1) Toradol 60 mg IM x1 2) Benadryl 25 mg PO x1 3) Guaifenesin DM 10 ml PO x1 MEZA FRANCO, MANNY 09/29/2024 01:24:37 PM > ?? 3.?Acute cough?Imaging: CHEST-2 VIEWS (Performed Date - 09/29/2024) 4.?Others? Notes: DYLAN ALAVREZ RN, BSN LIC. [id number], [facility] 09/29/2024 01:25:28 PM > Se recibe paciente correcto y se corroboran alergias. Se le educa sobre tratamiento ordenado, refiere entender. Se realizan muestras de laboratorio kyle orden medica Influenza y Covid 19, bajo medidas asepticas y de seguridad. Se rotulan las muestras debidamente y se llevan al laboratorio. Se administran medicamentos kyle orden medica Toradol 60 mg IM en gluteo deondre cuadrante superior externo, bajo medidas asepticas y de seguridad. Paciente no presenta reaccion adversa al momento. Se ubica paciente en Myra de espera. Se orienta a notificar cambios, refiere entender. DYLAN ALVAREZ RN, BSN LIC. [id number], [facility] 09/29/2024 01:25:29 PM > MIKIE SAM RN BSN, Lic. [id number], [facility] 09/29/2024 02:00:01 PM > Se recibe llamada del laboratorio de la Lcda. Santi Barillas reportando influenza A positivo; se le notifica al Dr. Meza. MIKIE SAM PRACTICE ADVISOR, Lic. [id number], [place] 09/29/2024 02:00:02 PM > BACILIO JOSEPH RNN LIC. [id number], [facility] 09/29/2024 02:44:16 PM > Paciente es dado de renato en condicion estable, alerta y orientado en tiempo, lugar y persona. Se educa sobre instrucciones medicas, tratamiento a seguir en el hogar, seguimiento con medico primario, y a pasar con el personal de servicio al paciente para completar proceso de renato, refiere entender. Vitales medidos y documentados previos al renato. Paciente refiere escala de dolor en 0 al momento del renato. BACILIO JOSEPH RNN LIC. [id number], [facility] 09/29/2024 02:44:27 PM >?? * Procedure Codes:?61346 EMERG ENCY DEPT VISIT, 23368 EMERGENCY DEPT VISIT MOD MDM, 99824 X-RAY EXAM CHEST 2 VIEWS, [address] [place], [address] INFLUENZA ASSAY W/OPTIC A Y B * Preventive Medicine:? ??Myra de Emergencia:?Educaciones myra de emergencia?Se educo al paciente y/o familiar sobre?Medidas de seguridad en myra de emergencias, Prevencion de caidas, Tratamineto ofrecido, Manejo de condicion, Medicamento administrado, Procedimiento realizado SE EDUCA A PACIENTE, Medidas Antipireticas, SE EDUCA A FAMILIAR.?Disposicion?Disposicion?Cuidado en el hogar seguimiento medico primario.?Renato?[place]?al Hogar Estable.?Transportacion?Transportado en?Otro,?Acompanado por?Familiar.? ??RN Paciente Hypertenso:?Educacion paciente hypertenso?Se educo sobre adherencia a medicamentos?si,?Se educo sobre monitoreo de presion arterial?si,?Se educo sobre mantenimiento de yoli mental y manejo de emociones?si,?Se educo sobre incontinencia urinaria?si.? ??UDS Reporting:?Adult Weight Counseling?Physical activity Recomended?Yes.?Educacion yoli dental?Se recomendo a paciente visitar a un profesional de la yoli oral cada 6 meses?Yes.?Importancia de asistencia a primo citas de seguimiento para el manejo de condiciones cronicas?Importabcia asistencia a primo citas de seguimiento?Paciente fue educado sobre la importancia de la asistencia a primo citas de seguimiento para el manejo de primo condiciones cronicas de yoli, Paciente entiende la importancia de asistir a primo citas programadas, Paciente se compromete a no ausentarse a primo citas de seguimiento.?Transportacion?Paciente con necesidad de transportacion?No.?Plan de cuidado?Se educa al paciente sobre el cuidado de primo condiciones cronicas de yoli?Yes.? ??RN Paciente diabetico:?Educacion paciente diabetico?Se educo sobre manejo nutricional y actividad fisica?si,?Se educo sobre examen de fondo de keanu?si,?Se educo sobre revision de pies?si,?Se educo sobre vacuna de influenza?si,?Se educo sobre vacuna de pneumococo?si,?Se educo sobre adherencia a medicamentos?si,?Se le entrega registro valores glucometro?Yes,?Se educa y recomienda al paciente el Programa de 5 pasos?Yes,?Se educo sobre mantenimiento de yoli mental y manejo de emociones?Yes,?Se educo sobre incontinencia urinaria?Yes.? ??RN Paciente asmatico:?Educacion paciente asmatico?Se realizo cuestionario de asma?si,?Se educo sobre identificacion y severidad de sintomas?si,?Se realizo y discutio plan de tratamiento para el manejo del asma?si,?Se educo sobre identificacion de detonantes de sintomas?si,?Se educo sobre el uso del inhalador de rescate?si.? ??RN Pacietne femenino:?Se educo sobre cernimiento de cancer cervical?Se educo sobre cernimiento cancer cervical?si,?Se educo sobre cernimiento cancer colorectal?si,?Se educo sobre cernimento cancer de mama?si.? ??RN Paciente adulto 18-64:?Educacion paciente adulto 18-64?Se educo sobre enfermedades de transmision sexual?si,?Se educo sobre uso y abuso de alcohol y drogas?si,?Se educo sobre prevencion de accidentes?si,?Se educo sobre vacunacion?si.? ??RN Control de Infecciones:?Educacion Control de Infecciones?Se educo al paciente sobre mitigacion de riesgo a infecciones?Yes,?Se educo al paciente sobre lavado de nicole?Yes,?Se educo al paciente sobre la importancia de aislamiento?Yes,?Se educo al paciente sobre medidas asepticas?Yes,?Se educo al paciente sobre medidas de contencion de infecciones?Yes,?Se educo al paciente sobre el uso de mascarilla?Yes.?[employer] Vaya con [place] medico primario en o antes de 3 alicea. Es importante que siga las recomendaciones discutidas con el medico. Si se le receto alguna medicina, siga las instrucciones dadas en el envase. Si se le realizo Ubaldo X, la interpretacion de primo radiologias simmons sido hecha por el medico de Emergencia y es preliminar. El radiologo leera primo radiografias y emitira un resultado final. Usted es reponsable de solicitar copia del reporte oficial de las radiologias o laboratorios, a traves del Departamento de Manejo de Informacion, siguiendo el protocolo establecido. Limite a primo actividades kyle lo indicado. De empeorar [place] condicion actual dirijase a sara myra de emergencias para ser re-evaluado. MANNY SMALL 09/29/2024 02:40:53 PM > . * Images: Billing Information: * Visit Code:? * Procedure Codes:? 53200 EMERGENCY DEPT VISIT. 86755 EMERGENCY DEPT VISIT MOD MDM. 43582 X-RAY EXAM CHEST 2 [place]. [address] [place]. [address] INFLUENZA ASSAY W/OPTIC A Y B. * Sign off status: Completed true * Provider:?Manny Franco M.D. Date:?09/29/2024 Generated for Nellie newell/Fabien/eTransmitting on:?11/04/2024 05:04 PM BOT History and Physical Notes * HPI (History of Present Illness) Category Sub-Category Detail Notes Category Not es MEDICO 64 y/o female patient that came due cough, sensation of fever, congestion and body aches of 3 days of evolution. No dyspnea. MANNY SMALL 09/29/2024 01:28:19 PM > REEVALUATION: Influenza A reported Positive. Outcome discussed with patient and her relative. MANNY SMALL 09/29/2024 02:42:58 PM > Depression Screening PHQ-2 (2015 Edition) Little interest or pleasure in doing things?: Not at all Feeling down, depressed, or hopeless?: N ot at all Total Score: 0 Examination Category Sub-Category Detail Notes Category Not es Fisico Regular General: Alert, active and oriented x 3, no respiratory distress, not acutely ill HEENT: SAL, EOMI, Yellow nasal discharge Heart: Regular rate/rhythm Lungs: CTA x 2, no wheezing/rales/rhonchi Abdomen: Normal bowel sounds, soft and depressible, no guarding or rebound tenderness Extremities: no edema Neuro: CN II-XII intact, No weakness or limitations Skin: No rash nor cyanosis MANNY SMALL 09/29/2024 01:26:19 PM >
--- NOTE | 2024-11-04 16:21 | ED_ITS ---
HPI - Female Genitourinary General Chief complaint: Urogenital-Female Stated complaint: vaginal burning and pressure Time Seen by Provider: 11/04/24 16:00 Source: patient Mode of arrival: ambulatory Limitations: language barrier (Indian-speaking american sign language interpreter utilized) History of Present Illness ED Provider: Kecia Avalos NP HPI Narrative: Patient is a 64 year old female who presents emergency department for evaluation of 3 days with dysuria, postvoid suprapubic pressure. Diffuse pain across the lower back. Admits to a history of similar symptoms with urinary tract infection a few years back. Has a mild chills but no reported fever. No nausea no vomiting. Denies any constipation or diarrhea. Initial nursing triage note indicates vaginal pain, she adamantly denies any vaginal/pelvic pain. Denies abnormal vaginal bleeding or discharge Related Data Home Medications ?Medication ?Instructions ?Recorded ?Confirmed blood pressure test kit-large #1 ea 06/02/24 10/31/24 Previous Rx's ?Medication ?Instructions ?Recorded albuterol sulfate 90 mcg/actuation 2 inh PO Q4H PRN shortness of 08/13/20 aerosol inhaler breath or wheezing #8.5 grams docusate sodium 100 mg capsule 100 mg PO BID #30 caps 12/07/22 (Col-Rite) blood sugar diagnostic (FreeStyle #50 ea 02/10/23 Lite Strips) blood-glucose meter (FreeStyle #1 ea 02/10/23 Lite Meter kit) lancets 28 gauge (FreeStyle #100 ea 02/10/23 Lancets) cock up splint #1 ea 03/03/23 metformin 1,000 mg tablet 1,000 mg PO BID 90 days #180 tabs 06/29/23 blood pressure monitor #1 ea 02/07/24 nabumetone 750 mg tablet 750 mg PO BID 30 days #60 tabs 03/30/24 lidocaine 5 % topical patch 1 patch topical DAILY #30 ea 04/07/24 rosuvastatin 10 mg tablet 10 mg PO DAILY 90 days #90 tabs 04/20/24 sennosides 8.6 mg tablet (senna) 8.6 mg PO BEDTIME PRN constipation 04/20/24 7 days #7 tabs ibuprofen 600 mg tablet 600 mg PO Q8H PRN pain #14 tabs 04/23/24 meclizine 50 mg tablet 50 mg PO DAILY PRN motion sickness 04/23/24 #14 tabs diclofenac sodium 1 % topical gel 2 g topical QID 30 days #100 grams 05/15/24 (Aleve (diclofenac)) gabapentin 300 mg capsule 300 mg PO TID pain 30 days #90 caps 07/06/24 [id number] 3.3 5 drp otic (ear) left QID #10 mL 07/11/24 mg-3 mg-10 mg-0.5 mg/mL ear drops,susp (Cortisporin-TC) albuterol sulfate 2.5 mg/3 mL 2.5 mg (3 mL) inhalation Q4-6H PRN 08/30/24 (0.083 %) solution for nebulization shortness of breath or wheezing 30 days #90 mL ipratropium 0.5 mg-albuterol 3 mg 3 ml inhalation Q6H PRN wheezing 08/30/24 (2.5 mg base)/3 mL nebulization #180 mL soln fluticasone propionate 230 2 puff inhalation Q12H 09/19/24 mcg-salmeterol 21 mcg/actuation ASTHMA/BRONCHITIS 30 days #12 HFA inhaler (Advair HFA) grams Orencia ClickJect 125 mg/mL 125 mg subcut QWEEK #4 mL 10/25/24 subcutaneous auto-injector (abatacept) losartan 100 mg tablet 100 mg PO DAILY hypertension 30 10/26/24 days #30 tabs dulaglutide 0.75 mg/0.5 mL 0.75 mg (0.5 mL) subcut QWEEK 90 10/31/24 subcutaneous pen injector days #6.5 mL (Trulicity) cefuroxime axetil 250 mg tablet 250 mg PO BID #14 tabs 11/04/24 Allergies Allergy/AdvReac Type Severity Reaction Status Date / Time cyclobenzaprine Allergy Intermediate Dizziness Verified 11/04/24 10:44 [From Flexeril] orphenadrine [From Norflex] Allergy Intermediate Dizziness Verified 11/04/24 10:44 sarilumab [From Kevzara] Allergy Intermediate Rash Verified 11/04/24 10:44 Review of Systems 2 Review of Systems: Yes all other systems are reviewed and are negative PMFSH Past Medical History Attestation statement: The following information was validated with the patient. Source: old records reviewed Medical History Bronchitis Morbid obesity with BMI of 45.0-49.9, adult Sacroiliitis Rheumatic fever TIA (transient ischemic attack) Right-sided back pain History of COVID-19 Asthma exacerbation Hospital discharge follow-up Sacroiliitis Renal calculi Costovertebral angle tenderness Burning with urination Disc degeneration, lumbar Spondylosis of cervical spine Spondylosis of lumbar spine Pleuritic pain Restrictive lung disease Morbid obesity Asthma Dyslipidemia Essential hypertension Vaginal modesta Seropositive rheumatoid arthritis Rheumatoid arthritis Diabetes Surgical History History of cholecystectomy Hx of colonoscopy (09/01/19) History of surgery on wrist Family History Family History Father Diabetes mellitus Myocardial infarction Hypertension CVD (cardiovascular disease) Mother Diabetes mellitus CVD (cardiovascular disease) Sister No problems noted. Son No problems noted. Son No problems noted. Son No problems noted. Daughter Thyroiditis Daughter No problems noted. Daughter No problems noted. Daughter No problems noted. Daughter No problems noted. Other Asthma exacerbation Social History Social History (Updated 10/31/24 @ 16:25 by Aniyah Friend MD) Housing: Apartment Alcohol intake: never Patient Tobacco Use Status: Never used Tobacco e-Cigarette/Vaping Use: Never Used Second Hand Smoke Exposure: No Advance Directives: No Advance Directives Information Provided: No Do you have a plan to hurt others: No Plan service: No Current occupational status: disabled Sexual orientation: Straight/Heterosexual Gender identity: Female Cognitive needs: No Hearing needs: No Vision needs: No Physical Exam 2 Vital Signs: Vital Signs: Last Vital Signs Temp 97.4 F 11/04/24 13:08 Pulse 71 11/04/24 13:08 Resp 20 11/04/24 13:08 BP 163/79 H 11/04/24 13:08 Pulse Ox 97 11/04/24 13:08 O2 Del Method Room Air 11/04/24 13:08 BMI result Body Mass Index 39.3 Appearance: Alert.?Oriented to person, place and time. No acute distress.?Normal affect. CVS: Heart sounds normal. Normal heart rate and rhythm.? Pulses normal.?? Respiratory: No respiratory distress.? Lung sounds clear to auscultation bilaterally?? Abdomen: Soft with suprapubic tenderness upon palpation. No rebound tenderness at McBurney's point. No CVAT.. Normoactive bowel sounds. Skin: Skin warm and dry.? Normal skin color.? ? Extremities: No lower extremity edema.? Neuro: Moves all extremities spontaneously. . Ambulates with normal steady gait. Medical Decision Making Medical Decision Making [facility] Narrative: Patient is a 64 year old female with past medical history of obesity, sacroiliitis, TIA, nephrolithiasis, lumbar degenerative disc disease, lumbar spondylosis, restrictive lung disease, hypertension, hyperlipidemia, arthritis, diabetes who presents emergency department for evaluation of urinary symptoms as per HPI with associated diffuse lower back pain and mild suprapubic tenderness upon palpation as per PE portion of this note. No overt CVA tenderness. She denies associated hematuria. She arrives nontoxic, without signs of systemic toxicity. Reviewed serum labs and urinalysis obtained prior to my assumption of care; CBC is without leukocytosis anemia or thrombocytopenia. No significant electrolyte derangement. No KAROLINE. LFTs within normal range. Urinalysis with large amount of microscopic hematuria, 3+ leukocyte esterase, urine WBCs but no urine bacteria seen. CT of the abdomen and pelvis without contrast was ordered prior to my assumption of care; on my personal interpretation I do not appreciate obvious calculi or hydronephrosis. Differential Diagnosis Differential Diagnoses: The differential diagnosis associated with the presentation includes (UTI, cystitis, pyelonephritis, hydronephrosis, obstructive calculi, lumbar strain, chronic low back pain.) Admission/Observation Consideration of admission/observation: Escalation of care including admission/observation considered Lab Data [facility] Lab Attestation statement: I reviewed the patient's lab results. (See narrative above) 11/04/24 13:19 11/04/24 13:19 Labs: Lab Results 11/04/24 11/04/24 Range/Units 12:51 13:19 WBC 8.6 (4.8-10.8) X10*3/uL RBC 4.39 (4.20-5.50) X10*6/uL Hgb 13.8 (12.0-16.0) g/dl Hct 39.9 (37.0-47.0) % MCV 90.9 (80.0-98.0) fL MCH 31.4 (27.0-33.0) pg MCHC 34.6 (31.0-35.0) g/dl RDW 12.1 (11.0-16.0) % Plt Count 177 (160-400) X10*3/uL MPV 10.7 (9.4-12.3) fL Absolute Nucleated RBC 0.000 (0.0-0.012) X10*3/uL Nucleated RBC % (auto) 0.0 (0.0-0.2) /100WBC Neutrophils % (Manual) 67 (45-73) % Band Neutrophils % 2 L (3-5) % Lymphocytes % (Manual) 21 (20-40) % Atypical Lymphs % (Man) 1 (0-6) % Monocytes % (Manual) 2 (2-11) % Eosinophils % (Manual) 7 H (0-4) % Abs Neuts (Manual) 5.9 (2.0-8.3) X10*3/uL Lymphocytes # (Manual) 1.8 (1.2-4.9) X10*3/uL Atyp Lymphs # (Manual) 0.1 x10*3/uL Monocytes # (Manual) 0.2 (0.1-1.2) X10*3/uL Eosinophils # (Manual) 0.6 H (0.0-0.4) X10*3/uL Platelet Estimate NORMAL (NORMAL) Large Platelets PRESENT Plt Morphology Comment NOTED RBC Morphology NORMAL Sodium 141 (135-145) mmol/L Potassium 4.1 (3.3-5.1) mmol/L Chloride 111 H (96-108) mmol/L Carbon Dioxide 26 (22-29) mmol/L Anion Gap 8 L (12-20) BUN 13 (9-16) mg/dL Creatinine 0.65 (0.5-1.4) mg/dL Estim Creat Clear Calc 91.6 Estimated GFR > 60 Random Glucose 93 (60-115) mg/dL Calcium 9.3 D (8.4-10.2) mg/dL Total Bilirubin 0.6 (0.0-1.0) mg/dL Direct Bilirubin 0.2 (0.0-0.5) mg/dL AST 29 (5-31) U/L ALT 29 (0-31) U/L Alkaline Phosphatase 96 (39-117) U/L Total Protein 7.5 (6.5-8.0) g/dL Albumin 3.7 (3.5-5.0) g/dL Lipase 15 (8-78) U/L Urine Color Yellow Urine Appearance Cloudy Urine pH 5.5 (5.0-9.0) Ur Specific [place] 1.020 (1.005-1.025) Urine Protein 30 (1+) H (Neg-Trace) mg/dL Urine Glucose (UA) 100 H (Negative) mg/dL Urine Ketones Negative (Negative) mg/dL Urine Blood Large (3+) H (Negative) Urine Nitrite Negative (Negative) Ur Leukocyte Esterase Large (3+) H (Negative) Urine RBC 6-10 H (0-2) /HPF Urine WBC >50 H (0-5) /HPF Ur Squamous Epith Cells 0-2 (0-2) /HPF Urine Bacteria None Seen (None Seen) Hyaline Casts 0-2 (0-2) /LPF Independent Interpretation I performed an independent interpretation of an: CT Scan (See narrative above) Radiology Impression Discussion of test interpretation with radiology: I have reviewed the radiologist's reading. Radiologist Impression: CT abdomen and pelvis without contrast Comparison: US/[place]/SR - US ABDOMEN LIMITED - 04/29/24 08:[address]/[place]/SR - CT ABDOMEN PELVIS WO IV CON - 04/17/24 15:55 EDT Findings: No consolidation or pleural effusion. Mild dependent changes within the lower lungs. Hypodense liver parenchyma. Abdominal organs are otherwise unremarkable. No urolithiasis or hydronephrosis. Prior cholecystectomy. Umbilical hernia containing fat. No bowel edema or obstruction. Pelvic contents unremarkable. Normal appendix. No acute fracture. IMPRESSION: No acute findings. Independent Historian Clinical information obtained from an independent historian. History obtained from or confirmed by: Other (son) External Record Review External record reviewed: Outpatient record Prescription Management I considered prescription management with: Antibiotic Discharge Plan Discharge Clinical Impression: Urinary tract infection Patient Disposition: Home, Self-Care Instructions: Urinary Tract Infection in Older Adults (ED) Additional Instructions: You were found to have urinary tract infection today. CT scan does not show evidence of kidney stone or infection to the urine. A prescription for antibiotic has been sent to your pharmacy. Please complete the entire course. Do not skip any doses or stop taking early even if you begin to feel better. Follow-up with your primary care doctor, contact their office on Wednesday. Return with any new or worsening symptoms or concerns. Prescriptions: New cefuroxime axetil 250 mg tablet 250 mg PO BID Qty: 14 0RF No Action albuterol sulfate 90 mcg/actuation HFA aerosol inhaler 2 inh PO Q4H PRN (Reason: shortness of breath or wheezing) Qty: 8.5 1RF (DME) FreeStyle Lite Strips Strip See Rx Instructions .ROUTE .MEDSUPPLY Qty: 50 11RF Rx Instructions: Use 1 test strip once a day (DME) blood-glucose meter [FreeStyle Lite Meter] Kit See Rx Instructions .ROUTE .MEDSUPPLY Qty: 1 0RF Rx Instructions: E11.9 ONCE A DAY (DME) lancets [FreeStyle Lancets] 28 gauge misc See Rx Instructions .ROUTE .MEDSUPPLY Qty: 100 11RF Rx Instructions: Use 1 lancet once a day as needed (DME) blood pressure monitor Kit See Rx Instructions .Route Qty: 1 0RF Rx Instructions: As directed rosuvastatin 10 mg tablet 10 mg PO DAILY 90 Days Qty: 90 1RF diclofenac sodium [Aleve (diclofenac)] 1 % gel 2 g topical QID 30 Days Qty: 100 0RF Rx Instructions: apply to single elbow, wrist or hand; for hand includes palm/fingers/back of hand albuterol sulfate 2.5 mg /3 mL (0.083 %) solution for nebulization 2.5 mg inhalation Q4-6H PRN (Reason: shortness of breath or wheezing) 30 Days Qty: 90 2RF docusate sodium [Col-Rite] 100 mg capsule 100 mg PO BID Qty: 30 0RF meclizine 50 mg tablet 50 mg PO DAILY PRN (Reason: motion sickness) Qty: 14 0RF ibuprofen 600 mg tablet 600 mg PO Q8H PRN (Reason: pain) Qty: 14 0RF lidocaine 5 % adhesive patch,medicated 1 patch topical DAILY Qty: 30 0RF Rx Instructions: leave on most painful area for up to 12 hrs Cortisporin-TC 3.3-3-10-0.5 mg/mL drops,suspension 5 drp otic (ear) left QID Qty: 10 0RF sennosides [senna] 8.6 mg tablet 8.6 mg PO BEDTIME PRN (Reason: constipation) 7 Days Qty: 7 0RF nabumetone 750 mg tablet 750 mg PO BID 30 Days Qty: 60 6RF metformin 1,000 mg tablet 1,000 mg PO BID 90 Days Qty: 180 1RF fluticasone propion-salmeterol [Advair HFA] 230-21 mcg/actuation HFA aerosol inhaler 2 puff inhalation Q12H 30 Days Qty: 12 3RF (DME) blood pressure test kit-large Kit See Rx Instructions .ROUTE .MEDSUPPLY Qty: 1 Rx Instructions: As directed Trulicity 0.75 mg/0.5 mL pen injector 0.75 mg subcut QWEEK 90 Days Qty: 6.5 1RF (DME) cock up splint See Rx Instructions .Route .MEDSUPPLY Qty: 1 0RF Rx Instructions: wear on the right wrist at night gabapentin 300 mg capsule 300 mg PO TID 30 Days Qty: 90 6RF ipratropium-albuterol 0.5 mg-3 mg(2.5 mg base)/3 mL solution for nebulization 3 ml inhalation Q6H PRN (Reason: wheezing) Qty: 180 0RF losartan 100 mg tablet 100 mg PO DAILY 30 Days Qty: 30 4RF Orencia ClickJect 125 mg/mL auto-injector 125 mg subcut QWEEK Qty: 4 2RF Referrals: Aniyah Gonzalez MD [Primary Care Provider] - Print Language: Indian
[2024-11-04 18:39] VITALS: BP 163/79; PULSE 71; RESP 20; TEMP 36.3; O2SAT 97
== END 2024-11-04 18:40 | disposition home or self-care (01) ==
PROVIDERS: Emergency Provider Emergency Medicine Emergency Medical Services; PCP Internal Medicine
DX: N39.0 Urinary tract infection, site not specified (principal); R10.30 Lower abdominal pain, unspecified; E11.9 Type 2 diabetes mellitus without complications; Z79.84 Long term (current) use of oral hypoglycemic drugs
CPT/HCPCS: 36415; 74176; 80048; 80076; 81001; 81003; 83690; 85007; 85027; 87086; 99282; 99284

== ENCOUNTER 2024-11-07 | Outpatient (REF) | payer OTHER, SELFPAY ==
--- OUTSIDE RECORDS SUMMARY | 2024-11-08 14:58 | XMS_ITS ---
Author Organization [facility] Address [facility] [place] [address] Care Team Providers Care Cable Machine Operator Name Role Phone MERCYSoniaLUKENaren Primary Care Provider MEZA FRANCO, MANNY Unavailable [phone] Allergies Allergen (clinical drug ingredient) Drug/Non Drug Allergy documented on EMR Reaction Allergy Type Onset Date Status Flexeril dizziness Drug Allergy Active Norflex dizziness Drug Allergy Active Results Component Value Reference Range Notes CHEST-2 VIEWS Reviewed date:09/29/2024 02:40:29 PM Interpretation: Performing Lab: Notes/Report: See Below For Report [id number].Report Text See Below For Report COVID-19 ANTIGEN Reviewed date:09/29/2024 02:13:34 PM Interpretation: Performing Lab: Notes/Report: Col. Tabitha. Med. P.R. ORDER [id number] PERFORMED AT: -- Positive results indicate the presence of COVID-19 antigen, but clinical Pat. No.: [id number] [facility] en [place] correlation with patient history and other diagnostic information is Paid 5 Cents [facility] [address] necessary to determine infection status. Positive results do not rule out Exp: 12/08/2024 EVANGELISTA OCAMPO [id number] bacterial infection or co-infection with other viruses and do not Num: [id number] differentiate between SARS-CoV and SARS-CoV-2. DIRECTOR: JAIME SARAVIA -- Negative results, from patients with symptom onset beyond seven days, LICENSE.: [id number] CLIA: [id number] should be treated as presumptive and confirmation [...] clinical data. Col. Tabitha. Med. P.R. ORDER [id number] PERFORMED AT: Negative test results do not rule out other non-influenza viral infections Pat. No.: [id number] [facility] [place] Positive test results do not identify specific influenza A virus subtypes Paid 5 Cents [facility] [address] Individuals who recieved nasally influenza A vaccine may have positive Exp: 12/08/2024 [place] [id number] test results for up to three days after vaccination. Num: [id number] DIRECTOR: JAIME SARAVIA LICENSE.: [id number] CLIA: [id number] INFLUENZA A ANTIGEN POSITIVE NEGATIVE INFLUENZA B ANTIGEN NEGATIVE NEGATIVE METHOD: STATUS COVID-19/FLU A&B REASON FOR VISIT TAMARA NOBLES RN. BSN Lic. [id number], SHARDA Das 09/29/2024 11:22:32 AM > PACIENTE ACUDE A EVALUACION, REFIERE TOS, DOLOR DE CUERPO Y FIEBRE.CATEGORIA TEREZA, TAMARA NOBLES RN. BSN Lic. [id number], MIGUEL 09/29/2024 11:23:59 AM > Medications Medication [...] a day for 30 day(s) 07/21/2018 Active Sldjgsmm-Smrcgwvtd-AG 1 % 4 drops into a ffected [...] use: Nonsmoker Section Notes: TAMARA RIBERAN Lic. [id number], SHARDA M 09/29/2024 11:15:44 AM > Vital [...] kg 09/29/2024 DYLAN ALVAREZ RN, BSN LIC. [id number], [facility] 09/29/2024 02:45:29 PM > Se reese Signos vitales para proceso de renato. Encounters Encounter Location Date Provider Diagnosis PAIGE OCAMPO [address] [place], [place] [id number] 09/29/2024 MANNY MEZA FRANCO URTI (acute upper [...] 09/29/2024 Other DYLAN ALVAREZ RN, BSN LIC. [id number], [facility] 09/29/2024 01:25:28 PM > Se recibe [...] refiere entender. DYLAN ALVAREZ RN, BSN LIC. [id number], [facility] 09/29/2024 01:25:29 PM > MIKIE SAM RN BSN, Lic. [id number] 09/29/2024 02:00:01 PM > Se recibe llamada del laboratorio de la Lcda. Santi Barillas reportando influenza A positivo; se le notifica al Dr. Meza. MIKIE SAM RN BSN, Lic. [id number], [place] 09/29/2024 02:00:02 PM > DYLAN ALVAREZ RN, BSN LIC. [id number], [facility] 09/29/2024 02:44:16 PM > Paciente es [...] del renato. DYLAN ALVAREZ RN, BSN LIC. [id number], [facility] 09/29/2024 02:44:27 PM > Plan Of [...] > Other DYLAN ALVAREZ RN, BSN LIC. [id number] [facility] 09/29/2024 01:25:28 PM > Se recibe [...] refiere entender. DYLAN ALVAREZ RN, BSN LIC. [id number], [facility] 09/29/2024 01:25:29 PM > MIKIE SAM RN BSN, Lic. [id number] 09/29/2024 02:00:01 PM > Se recibe llamada del laboratorio de la Lcda. Santi Barillas reportando influenza A positivo; se le notifica al Dr. Meza. MIKIE SAM RN BSN, Lic. [id number] 09/29/2024 02:00:02 PM > DYLAN ALVAREZ RN, BSN LIC. [id number] [facility] 09/29/2024 02:44:16 PM > Paciente es [...] de dolor en 0 al momento del rneato. DYLAN ALVAREZ RN, BSN LIC. [id number], ANTHANIEL Das 09/29/2024 02:44:27 PM > Progress Notes * Laura HOWARDDOB: (64 yo F)Acc No.[id number]:09/29/2024 Patient:?Shania HOWARD zeina Provider:?Manny Franco M.D. :1960???Age:64 Y???Sex:Female D ate:09/29/2024 Address:[address] [place], [place] [id number] Pcp:PAIGE OCAMPO Check In:11:24 AM BOTBlaireck O ut:02:47 PM BOT Subjective: * Chief Complaints: * ???1. TAMARA NOBLES RN. BSN Lic. [id number], SHARDA 09/29/2024 11:22:32 AM > PACIENTE ACUDE A EVALUACION, REFIERE TOS, DOLOR DE CUERPO Y FIEBRE.CATEGORIA TEREZA. 2. TAMARA NOBLES RN. BSN Lic. [id number], SHARDA Das 09/29/2024 11:23:59 AM >. * [...] lugar y persona.?TAMARA NOBLES RN. BSN Lic. [id number], SHARDA Das 09/29/2024 11:14:47 AM >. * [...] ..Vivienda?con radha,?..Sospecha de maltrato?No,?..Viaje reciente fuera de ID <2 meses?No,?Transfusion/inmunisaciones?Siguiente,?..Transfusiones de maura?No,?..Reaccion a transfusion?No,?..Inmunizacion?Si,?..Inmunizacion Tetano?Si,?Nececidades [...] los ultimos 14 alicea?Yes,?Cuando?,?Simmons viajado fuera de ID o simmons estado en contacto con alguien que haya estado fuera de ID en los pasados 14 alicea?No,?Se simmons vacunado contra el COVID-19?Refuerzo.?TAMARA NOBLES RN. BSN Lic. [id number], SHARDA M 09/29/2024 11:15:44 AM >. * [...] Orally TWO times a day , Not-Taking/PRN Mrcugupk-Mbxxsfdjf-UE 1 % Solution 4 drops into affected ear RIGHT EAR Otic Three times a day , Medication List reviewed and reconciled with the patient * Allergies:?Norflex: dizzines s - Allergy, Flexeril: dizziness - Allergy. Objective: * Vitals: Ht 61in?? 09/29/2024 11:24:28 AM BOT?? Wt* 211 lbs?? 09/29/2024 11:24:28 AM BOT?? YES ENIA?TAMARA FELTONRIO RN. BSN Lic. [id number] BMI* 39.86Index?? 09/29/2024 11:24:28 AM BOT?? YES ENIA?TAMARA FELTONRIO RN. BSN Lic. [id number] Pain scale* 51-10?? 09/29/2024 11:24:28 AM BOT?? YES ENIA?TAMARA FELTONRIO RN. BSN Lic. [id number] BP* 139/80mm Hg?? 09/29/2024 02:45:32 PM BOT?? GEN ESIS?DYLAN ALVAREZ RN, BSN LIC. [id number] 142/70 mm Hg?? 09/29/2024 11:28:47 AM BOT?? YES ENIA?TAMARA FELTONRIO RN. BSN Lic. [id number] HR* 90/min?? 09/29/2024 02:45:32 PM BOT?? GEN ESIS?DYLAN ALVAREZ RN, BSN LIC. 34450 108 /min?? 09/29/2024 11:26:26 AM BOT?? YES ENIA?TAMARA FELTONRIO RN. BSN Lic. [id number] RR* 19/min?? 09/29/2024 02:45:32 PM BOT?? GEN ESIS?DYLAN ALVAREZ RN, BSN LIC. [id number] 23 /min?? 09/29/2024 11:26:26 AM BOT?? YES ENIA?TAMARA FELTONRIO RN. BSN Lic. [id number] Temp* 36.6C?? 09/29/2024 02:45:32 PM BOT?? GEN ESIS?DYLAN ALVAREZ RN, BSN LIC. [id number] 37.5 C?? 09/29/2024 11:26:26 AM BOT?? YES ENIA?MCDONALD MALLORIE RN. BSN Lic. [id number] Oxygen sat %* 99%?? 09/29/2024 02:45:32 PM BOT?? GEN ESIS?DYLAN ALVAREZ RN, BSN LIC. [id number] 96 %?? 09/29/2024 11:26:26 AM BOT?? YES ENIA?MCDONALD MALLORIE RN. BSN Lic. [id number] LMP* POSTMENOPAUSAL?? 09/29/2024 11:26:55 AM BOT?? YE SANDY?TAMARA MALLORIE RN. BSN Lic. [id number] Glucose:* 230MG/DL?? 09/29/2024 11:28:47 AM BOT?? YES ENIA?TAMARA FELTONRIO RN. BSN Lic. [id number] Ht-cm* 154.94 cm?? 09/29/2024 11:24:28 AM BOT?? YES ENIA?TAMARA NOBLES RN. BSN Lic. [id number] Wt-kg* 95.71 kg?? 09/29/2024 11:24:28 AM BOT?? YES ENIA?TAMARA NOBLES RN. BSN Lic. [id number] DYLAN ALVAREZ RN, BSN LIC. [id number], [facility] 09/29/2024 02:45:29 PM > Se reese [...] 4.?Others? Notes: DYLAN ALVAREZ RN, BSN LIC. [id number], [facility] 09/29/2024 01:25:28 PM > Se recibe [...] refiere entender. DYLAN ALVAREZ RN, BSN LIC. [id number], [facility] 09/29/2024 01:25:29 PM > MIKIE SAM RN BSN, Lic. [id number], TREASURE 09/29/2024 02:00:01 PM > Se recibe llamada del laboratorio de la Lcda. Santi Barillas reportando influenza A positivo; se le notifica al Dr. Meaz. MIKIE SAM WIRE STITCHER, Lic. [id number], TREASURE 09/29/2024 02:00:02 PM > BACILIO JOSEPH RNN LIC. [id number], [facility] 09/29/2024 02:44:16 PM > Paciente es [...] momento del renato. BACILIO JOSEPH RNN LIC. [id number], [facility] 09/29/2024 02:44:27 PM >?? * Procedure Codes:?83569 EMERG ENCY DEPT VISIT, 36633 EMERGENCY DEPT VISIT MOD MDM, 19235 X-RAY EXAM CHEST 2 VIEWS, [address] [place], [address] INFLUENZA ASSAY W/OPTIC A Y B * Preventive Medicine:? ??Myra de Emergencia:?Educaciones myra de emergencia?Se educo al paciente y/o familiar sobre?Medidas de seguridad en myra de emergencias, Prevencion de caidas, Tratamineto ofrecido, Manejo de condicion, Medicamento administrado, Procedimiento realizado SE EDUCA A PACIENTE, Medidas Antipireticas, SE EDUCA A FAMILIAR.?Disposicion?Disposicion?Cuidado en el hogar seguimiento medico primario.?Renato?[place]?al Hogar Estable.?Transportacion?Transportado en?Otro,?Acompanado por?Familiar.? ??RN Paciente Hypertenso:?Educacion [...] Information: * Visit Code:? * Procedure Codes:? 73969 EMERGENCY DEPT VISIT. 99998 EMERGENCY DEPT VISIT MOD MDM. 36797 X-RAY EXAM CHEST 2 VIEWS. [address] [place]. [address] INFLUENZA ASSAY W/OPTIC A Y B. * Sign off status: Completed true * Provider:?Manny Franco M.D. Date:?09/29/2024 Generated for Nellie newell/Fabien/eTransmitting on:?11/08/2024 03:55 PM BOT History and Physical Notes * [...]
[2024-11-09 10:23] LABS: Bacterial Vaginosis PCR NEGATIVE (Negative); Candida Group PCR NOT DETECTED (Not Detect); Candida glab krusei PCR NOT DETECTED (Not Detect); Trichomonas vaginalis PCR NOT DETECTED (Not Detect)
== END 2024-11-07 00:01 | disposition home or self-care (01) ==
LOC: HO.LNP
DX: N89.8 Other specified noninflammatory disorders of vagina (principal)
CPT/HCPCS: 81515

== ENCOUNTER 2024-11-07 13:46 | Outpatient (AMB) | payer OTHER, SELFPAY ==
[2024-11-07 13:53] VITALS: BP 150/82; PULSE 80; TEMP 37.3; O2SAT 98; BMI 39.7
--- NOTE | 2024-11-07 13:53 | MHC.PC.OV ---
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 Operator Name: [id number]/Rene Accompanied by: Self / Same As Patient Allergies cyclobenzaprine [From Flexeril] Allergy (Intermediate, Verified 11/08/24 15:13) Dizziness orphenadrine [From Norflex] Allergy (Intermediate, Verified 11/08/24 15:13) Dizziness sarilumab [From Kevzara] Allergy (Intermediate, Verified 11/08/24 15:13) Rash Medication List - Last Reconciled 11/07/24 by ALPHONSE Gauthier albuterol sulfate 90 mcg/actuation 2 inhalations PO Q4H PRN albuterol sulfate 2.5 mg (3 mL) inhalation Q4-6H PRN 30 days blood pressure monitor As directed blood pressure test kit-large As directed blood sugar diagnostic (FreeStyle Lite Strips) Use 1 test strip once a day blood-glucose meter (FreeStyle Lite Meter kit) E11.9 ONCE A DAY cefuroxime axetil 250 mg PO BID [cock up splint wear on the right wrist at night ] diclofenac sodium 1% (Aleve (diclofenac)) 2 grams topical QID 30 days docusate sodium (Col-Rite) 100 mg PO BID dulaglutide (Trulicity) 0.75 mg (0.5 mL) subcut QWEEK 90 days fluticasone propion-salmeterol 230-21 mcg/actuation (Advair HFA) 2 puffs inhalation Q12H 30 days gabapentin 300 mg PO TID 30 days ibuprofen 600 mg PO Q8H PRN ipratropium-albuterol 0.5 mg-3 mg(2.5 mg base)/3 mL 3 mL inhalation Q6H PRN lancets (FreeStyle Lancets) Use 1 lancet once a day as needed lidocaine 5% 1 patch topical DAILY losartan 100 mg PO DAILY 30 days meclizine 50 mg PO DAILY PRN metformin 1,000 mg PO BID 90 days nabumetone 750 mg PO BID 30 days oiuxphqn-cryfgl-YA-thonzonium 3.3-3-10-0.5 mg/mL (Cortisporin-TC) 5 drps otic (ear) left QID Orencia ClickJect (abatacept) 125 mg subcut QWEEK NS rosuvastatin 10 mg PO DAILY 90 days sennosides (senna) 8.6 mg PO BEDTIME PRN 7 days Tobacco use date assessed: 10/31/24 Fall risk assessment: No Falls in past year Last assessed Fall Risk: 11/07/24 Dental Screening Dental Screen Date: 10/31/24 HPI [facility] UTI 11/04 HPI Details The patient is a 64 y/o female with significant past medical history of asthma, dyslipidemia, hypertension, TIA, obesity, spondylosis of lumbar spine, restrictive lung disease, Diabetes and seropositve rheumatoid arthritis She is a patient of Dr. Simmons, she was last seen 10/31/24 Patient is presenting today for a post ED visit for dysuria and post-void suprapubic pressure The patient was diagnosed an UTI and was discharged on antibiotics Patient reports that she has been on antibiotics since Wednesday b.i.d. The patient reports that she is feeling somewhat better But she is still having pressure after urinating and some burning sensation The patient reports that she still has vaginal itchiness-? BV/[place]-will do a swab Patient denies discharge Cough: Patient reports that she had influenza and was treated but she still has a cough going She reports that her cough is nonproductive She reports mild SOB. Reports that her cough is only during the day Especially when she moves. She does not have a cough during the nighttime She denies chest pain but endorses chest tightness Reports that this has been ongoing since her inhaler was changed Reports that she has an upcoming appointment with pulmonology and is planning on addressing this -- will start the patient prednisone taper and Mucinex --patient was given nebulizer treatment in office with positive effect [facility] Medical History (Updated 11/08/24 @ 16:49 by ALPHONSE Gauthier) Urinary tract infection Bronchitis Morbid obesity with BMI of 45.0-49.9, adult Sacroiliitis Rheumatic fever TIA (transient ischemic attack) Right-sided back pain History of COVID-19 Asthma exacerbation Hospital discharge follow-up Sacroiliitis Renal calculi Costovertebral angle tenderness Burning with urination Disc degeneration, lumbar Spondylosis of cervical spine Spondylosis of lumbar spine Pleuritic pain Restrictive lung disease Morbid obesity Asthma Dyslipidemia Essential hypertension Vaginal modesta Seropositive rheumatoid arthritis Rheumatoid arthritis Diabetes Surgical History History of cholecystectomy Hx of colonoscopy (09/01/19) History of surgery on wrist Family History Father Diabetes mellitus Myocardial infarction Hypertension CVD (cardiovascular disease) Mother Diabetes mellitus CVD (cardiovascular disease) Sister No problems noted. Son No problems noted. Son No problems noted. Son No problems noted. Daughter Thyroiditis Daughter No problems noted. Daughter No problems noted. Daughter No problems noted. Daughter No problems noted. Other Asthma exacerbation Social History Housing: Apartment Alcohol intake: never Patient Tobacco Use Status: Never used Tobacco e-Cigarette/Vaping Use: Never Used Second Hand Smoke Exposure: No service: No Current occupational status: disabled Sexual orientation: Straight/Heterosexual Gender identity: Female Cognitive needs: No Hearing needs: No Vision needs: No Female Reproductive History Menstrual Age of Menarche: 11 Date of menopause: 01/22/10 Questionnaire Thrive Questionnaire Date Thrive assessed: 10/31/24 SONA-7 AMB Questionnaire SONA-7 Date SONA - 7 assessed: 10/31/24 Source: Developed by Drs. Spencer Gonzalez, Anamaria Bartlett, Clayton Azar and colleagues, with an educational anna from [employer]. Review of Systems Const Details: Denies chills, Denies fatigue, Denies fever(s), Denies headache(s) and Denies weakness HEENT Denies change in vision, Denies dizziness, Denies headache(s), Denies hearing loss, Denies nasal congestion, Denies sinus pain, Denies sinus pressure and Denies sore throat Card +mild chest pain, Denies lightheadedness, +mild dyspnea and Denies other (palpitations) Resp +month long cough (post influenza), +mild dyspnea and Denies wheezing GI Denies melena, Denies hematochezia, Denies change in bowel habits, Denies dyspepsia and Denies nausea Denies hematuria and Denies dysuria Musc Denies abnormal gait, Denies myalgias, Denies arthralgias, Denies numbness and Denies tingling Skin/Breast Denies rash, Denies unusual bruising and Denies wounds Neuro Denies abnormal gait, Denies dizziness, Denies headache(s), Denies memory loss, Denies numbness, Denies Sensory deficit (Neuro), Denies tingling and Denies weakness Psych Denies anxiety, Denies depression and Denies memory loss Endo Denies cold intolerance, Denies fatigue, Denies heat intolerance, Denies polydipsia and Denies polyuria Jared/Lymph Denies easy bleeding and Denies easy bruising Aller/Immun Denies wheezing Physical exam (Primary Care) Vital Signs: Last Vital Signs Temp 99.1 F 11/07/24 13:53 Pulse 80 11/07/24 13:53 BP 150/82 H 11/07/24 13:53 Pulse Ox 98 11/07/24 13:53 Oxygen Delivery Method Room Air 11/07/24 13:53 BMI result Body Mass Index 39.7 Tobacco/Smoking Status: Tobacco use Status Tobacco use date assessed 10/31/24 11/07/24 13:59 Patient Tobacco Use Status Never used Tobacco 11/07/24 13:59 e-Cigarette/Vaping Use Never Used 11/07/24 13:59 Thrive Assessment: Date of Thrive Assessment Date Thrive assessed 10/31/24 11/07/24 13:59 Const Other: General: no acute distress, well developed, alert and awake Nutritional Appearance: well nourished Orientation/consciousness: patient oriented x3 HENMT Head: Yes normocephalic and Yes atraumatic Ears: hearing grossly normal bilaterally and TM's normal bilaterally General nose exam: Normal external nose present and Normal nares present Mouth: Normal oral and palatal mucosa present and moist mucous membranes Eyes Pupils: Equal, round and reactive pupils present and Pupil accommodation reflex normal EOM: EOMs intact bilaterally Neck Neck: Yes normal visual inspection, Yes no lymphadenopathy and Yes trachea midline Thyroid: Thyroid normal Lymphatic: no lymphadenopathy noted Resp Effort & Inspection: normal respiratory effort Auscultation: + inspiratory wheezing/tight Cardio Rate: regular rate Rhythm: regular rhythm Heart sounds: S1 normal heart sound present, S2 normal heart sound present, no gallops, no murmurs and no rubs GI Palpation (GI): Abdomen soft and nontender to palpation Auscultation: normal bowel sounds General: Yes no CVA tenderness Skin General: warm and dry. Normal skin color. Normal skin turgor Lesions: no lesions Rashes: no rashes Trauma: no lacerations or abrasions Wounds: no wounds Nails: normal Neuro General: patient oriented x3, gait normal Cranial nerves: Yes Equal, round and reactive pupils present Cognition (Neuro): normal cognition Gait exam (Neuro): Normal gait present Extrem General: Yes normal to inspection, No edema and No calf tenderness Psych Appearance: grossly normal Affect: normal affect Attitude: cooperative Thought process: Normal thought process present Coding Level of Care Code Est Pt Level 4 (93611) Diagnoses Vaginal itching N89.8 Chest tightness R07.89 Cough, unspecified type R05.9 Cough type: unspecified Essential hypertension I10 Type 2 diabetes mellitus with hyperglycemia, without long-term current use of insulin E11.65 Diabetes mellitus complication status: with hyperglycemia Diabetes mellitus truck terminal manager insulin use: without truck terminal manager use Diabetes mellitus type: type 2 Dyslipidemia E78.5 Urinary tract infection without hematuria, site unspecified N39.0 Hematuria presence: without hematuria Urinary tract infection type: site unspecified Time Spent (min) 38 Assessment & Plan Assessment & Plan (1) Vaginal itching: Code(s): N89.8 - Other specified noninflammatory disorders of vagina Category: Medical Plan: Vaginal swab done in office and was sent for BV panel (2) Chest tightness: Code(s): R07.89 - Other chest pain Category: Medical Plan: Neb tx done in office Prednisone tapered ordered Continue home inhalers Follow up with pulmonology as scheduled (3) Cough: Comment: Ongoing cough is the main distressing symptom at this time. This does not seem to be related to any active respiratory infection. After reviewing her whole list of medications I think lisinopril 40 mg daily, may be contributing to her cough. Code(s): R05.9 - Cough, unspecified Category: Medical Qualifiers: Cough type: unspecified Qualified Code(s): R05.9 - Cough, unspecified Plan: Mucinex 600 mg b.i.d. ordered (4) Essential hypertension: Code(s): I10 - Essential (primary) hypertension Category: Medical Plan: The pressure blood pressure was slightly elevated office Reinforced low-sodium diet Continue losartan 100 mg daily (5) Diabetes: Code(s): E11.9 - Type 2 diabetes mellitus without complications Category: Medical Qualifiers: Diabetes mellitus complication status: with hyperglycemia Diabetes mellitus senior care insulin use: without truck terminal manager use Diabetes mellitus type: type 2 Qualified Code(s): E11.65 - Type 2 diabetes mellitus with hyperglycemia Plan: Reinforced a diet low in sugar/carbohydrate and activity as tolerated Continue metformin 2000 mg b.i.d., Trulicity 0.75 mg subQ q.week, (6) Dyslipidemia: Code(s): E78.5 - Hyperlipidemia, unspecified Category: Medical Plan: Reinforced a low-cholesterol diet Continue rosuvastatin 10 mg daily (7) UTI (urinary tract infection): Code(s): N39.0 - Urinary tract infection, site not specified Category: Medical Qualifiers: Hematuria presence: without hematuria Urinary tract infection type: site unspecified Qualified Code(s): N39.0 - Urinary tract infection, site not specified Plan: The patient was diagnosed during hospital with UTI and was started on antibiotics Continue cefuroxime 250 mg b.i.d. Increase fluid intake Plan Follow up with PCP as scheduled in February 2025 Orders: Orders Bacterial Vaginosis Panel 11/07/24 N89.8 - Other specified noninflammatory disorders of vagina AMB Nebulizer Treatment 11/07/24 R07.89 - Other chest pain Medications: New guaifenesin ER (Mucinex) 600 mg PO BID 30 tabs 0RF albuterol sulfate 2.5 mg (3 mL) inhalation ONCE 3 mL 0RF R07.89 - Other chest pain prednisone see taper instructions 4 tabs x 2 days, 3 tabs x 2 days, 2 tabs x 2 days, 1 tabs x 2 days =20 tabs over 8 days 10 mg PO DIRECTED 20 tabs 0RF
--- OUTSIDE RECORDS SUMMARY | 2024-11-07 14:42 | XMS_ITS ---
Author Organization [facility] Address [facility] [place] [address] Care Team Providers Care Truck Hopper Name Role Phone LUKE OCAMPONaren Primary Care Provider [phone] MEZA FRANCO, MANNY Unavailable Allergies Allergen (clinical drug ingredient) Drug/Non Drug Allergy documented on EMR Reaction Allergy Type Onset Date Status Flexeril dizziness Drug Allergy Active Norflex dizziness Drug Allergy Active Results Component Value Reference Range Notes INFLUENZA AG A & B Reviewed date:09/29/2024 [...] clinical data. Col. Tabitha. Med. P.R. ORDER [id number] PERFORMED AT: Negative test results do not rule out other non-influenza viral infections Pat. No.: [id number] [facility] [place] Positive test results do not identify specific influenza A virus subtypes Paid [address] Individuals who recieved nasally influenza A vaccine may have positive Exp: 12/08/2024 [place], EVANG[place]IST[place] [address] test results for up to three days after vaccination. Num: [id number] DIRECTOR: JAIME SARAVIA LICENSE.: [id number] KRIA: [id number] INFLUENZA A ANTIGEN POSITIVE NEGATIVE INFLUENZA B ANTIGEN NEGATIVE NEGATIVE METHOD: STATUS COVID-19/FLU A&B COVID-19 ANTIGEN Reviewed date:09/29/2024 02:13:34 PM Interpretation: Performing Lab: Notes/Report: Col. Tabitha. Med. P.R. ORDER [id number] PERFORMED AT: -- Positive results indicate the presence of COVID-19 antigen, but clinical Pat. No.: [id number] [facility] [place] correlation with patient history and other diagnostic information is Paid 5 Cents [facility] [address] necessary to determine infection status. Positive results do not rule out Exp: 12/08/2024 [place] [address] bacterial infection or co-infection with other viruses and do not Num: [id number] differentiate between SARS-CoV and SARS-CoV-2. DIRECTOR: JAIME SARAVIA -- Negative results, from patients with symptom onset beyond seven days, LICENSE.: [id number] CLIA: [id number] should be treated as presumptive and confirmation with a molecular assay. Negative test results are not intended to rule in other non-SARS viral bacterial infections. The presence of mupirocin may interfere with the COVID-19 Ag test and may cause false negative results. -- COVID-19 Ag Test has not been FDA cleared or approved; but has been authorized by FDA under EUA for use by authorized laboratories. For in vitros Diagnostic Use Only. 1 MAYANK COVID-19 Ag NEGATIVE NEGATIVE METHOD: STATUS COVID-19/FLU A&B CHEST-2 VIEWS Reviewed date:09/29/2024 02:40:29 PM Interpretation: Performing Lab: Notes/Report: See Below For Report [id number].Report Text See Below For Report REASON FOR VISIT TAMARA NOBLES RN. BSN Lic. [id number], SHARDA Das 09/29/2024 11:22:32 AM > PACIENTE ACUDE A EVALUACION, REFIERE TOS, DOLOR DE CUERPO Y FIEBRE.CATEGORIA TEREZA, TAMARA NOBLES RN. BSN Lic. [id number], MIGUEL 09/29/2024 11:23:59 AM > Medications Medication [...] a day for 30 day(s) 07/21/2018 Active Wyrbfhmd-Ybztoeotl-MI 1 % 4 drops into a ffected [...] use: Nonsmoker Section Notes: TAMARA RIBERAN Lic. [id number], SHARDA M 09/29/2024 11:15:44 AM > Vital [...] kg 09/29/2024 DYLAN ALVAREZ RN, BSN LIC. [id number], [facility] 09/29/2024 02:45:29 PM > Se reese Signos vitales para proceso de renato. Encounters Encounter Location Date Provider Diagnosis PAIGE OCAMPO [address] [place], [place] [id number] 09/29/2024 MANNY MEZA FRANCO URTI (acute upper [...] 09/29/2024 Other DYLAN ALVAREZ RN, BSN LIC. [id number], [facility] 09/29/2024 01:25:28 PM > Se recibe [...] refiere entender. DYLAN ALVAREZ RN, BSN LIC. [id number], [facility] 09/29/2024 01:25:29 PM > MIKIE SAM RN BSN, Lic. [id number] 09/29/2024 02:00:01 PM > Se recibe llamada del laboratorio de la Lcda. Santi Barillas reportando influenza A positivo; se le notifica al Dr. Meza. MIKIE SAM RN BSN, Lic. [id number], [place] 09/29/2024 02:00:02 PM > DYLAN ALVAREZ RN, BSN LIC. [id number], [facility] 09/29/2024 02:44:16 PM > Paciente es [...] del renato. DYLAN ALVAREZ RN, BSN LIC. [id number], [facility] 09/29/2024 02:44:27 PM > Plan Of [...] > Other DYLAN ALVAREZ RN, BSN LIC. [id number] [facility] 09/29/2024 01:25:28 PM > Se recibe [...] refiere entender. DYLAN ALVAREZ RN, BSN LIC. [id number], [facility] 09/29/2024 01:25:29 PM > MIKIE SAM RN BSN, Lic. [id number] 09/29/2024 02:00:01 PM > Se recibe llamada del laboratorio de la Lcda. Santi Barillas reportando influenza A positivo; se le notifica al Dr. Meza. MIKIE SAM RN BSN, Lic. [id number] 09/29/2024 02:00:02 PM > DYLAN ALVAREZ RN, BSN LIC. [id number] [facility] 09/29/2024 02:44:16 PM > Paciente es [...] del renato. DYLAN ALVAREZ RN, BSN LIC. [id number], NATHANIEL Das 09/29/2024 02:44:27 PM > Progress Notes * Laura HOWARDDOB: (64 yo F)Acc No.[id number]:09/29/2024 Patient:?Shania HOWARD zeina Provider:?Manny Franco M.D. :1960???Age:64 Y???Sex:Female D ate:09/29/2024 Address:[address] [place], [place] [id number] Pcp:PAIGE OCAMPO Check In:11:24 AM BOTBlaireck O ut:02:47 PM BOT Subjective: * Chief Complaints: * ???1. TAMARA NOBLES RN. BSN Lic. [id number], SHARDA 09/29/2024 11:22:32 AM > PACIENTE ACUDE A EVALUACION, REFIERE TOS, DOLOR DE CUERPO Y FIEBRE.CATEGORIA TEREZA. 2. TAMARA NOBLES RN. BSN Lic. [id number], SHARDA Das 09/29/2024 11:23:59 AM >. * [...] lugar y persona.?TAMARA NOBLES RN. BSN Lic. [id number], SHARDA Das 09/29/2024 11:14:47 AM >. * [...] ..Vivienda?con radha,?..Sospecha de maltrato?No,?..Viaje reciente fuera de [place] <2 meses?No,?Transfusion/inmunisaciones?Siguiente,?..Transfusiones de maura?No,?..Reaccion a transfusion?No,?..Inmunizacion?Si,?..Inmunizacion Tetano?Si,?Nececidades [...] los ultimos 14 alicea?Yes,?Cuando?,?Simmons viajado fuera de [place] o simmons estado en contacto con alguien que haya estado fuera de [place] en los pasados 14 alicea?No,?Se simmons vacunado contra el COVID-19?Refuerzo.?TAMARA NOBLES RN. BSN Lic. [id number], SHARDA M 09/29/2024 11:15:44 AM >. * [...] Orally TWO times a day , Not-Taking/PRN Fnfxofhl-Xzlgqqhkr-AI 1 % Solution 4 drops into affected ear RIGHT EAR Otic Three times a day , Medication List reviewed and reconciled with the patient * Allergies:?Norflex: dizzines s - Allergy, Flexeril: dizziness - Allergy. Objective: * Vitals: Ht 61in?? 09/29/2024 11:24:28 AM BOT?? Wt* 211 lbs?? 09/29/2024 11:24:28 AM BOT?? YES ENIA?TAMARA FELTONRIO RN. BSN Lic. [id number] BMI* 39.86Index?? 09/29/2024 11:24:28 AM BOT?? YES ENIA?TAMARA FELTONRIO RN. BSN Lic. [id number] Pain scale* 51-10?? 09/29/2024 11:24:28 AM BOT?? YES ENIA?TAMARA FELTONRIO RN. BSN Lic. [id number] BP* 139/80mm Hg?? 09/29/2024 02:45:32 PM BOT?? GEN ESIS?DYLAN ALVAREZ RN, BSN LIC. 74847 142/70 mm Hg?? 09/29/2024 11:28:47 AM BOT?? YES ENIA?TAMARA FELTONRIO RN. BSN Lic. 72312 HR* 90/min?? 09/29/2024 02:45:32 PM BOT?? GEN ESIS?DYLAN ALVAREZ RN, BSN LIC. 16463 108 /min?? 09/29/2024 11:26:26 AM BOT?? YES ENIA?TAMARA FELTONRIO RN. BSN Lic. [id number] RR* 19/min?? 09/29/2024 02:45:32 PM BOT?? GEN ESIS?DYLAN ALVAREZ RN, BSN LIC. 24206 23 /min?? 09/29/2024 11:26:26 AM BOT?? YES ENIA?TAMARA FELTONRIO RN. BSN Lic. 21607 Temp* 36.6C?? 09/29/2024 02:45:32 PM BOT?? GEN ESIS?DYLAN ALVAREZ RN, BSN LIC. 51445 37.5 C?? 09/29/2024 11:26:26 AM BOT?? YES ENIA?MCDONALD MALLORIE RN. BSN Lic. [id number] Oxygen sat %* 99%?? 09/29/2024 02:45:32 PM BOT?? GEN ESIS?DYLAN ALVAREZ RN, BSN LIC. 19129 96 %?? 09/29/2024 11:26:26 AM BOT?? YES ENIA?MCDONALD MALLORIE RN. BSN Lic. [id number] LMP* POSTMENOPAUSAL?? 09/29/2024 11:26:55 AM BOT?? YE SANDY?TAMARA MALLORIE RN. BSN Lic. [id number] Glucose:* 230MG/DL?? 09/29/2024 11:28:47 AM BOT?? YES ENIA?TAMARA FELTONRIO RN. BSN Lic. 40928 Ht-cm* 154.94 cm?? 09/29/2024 11:24:28 AM BOT?? YES ENIA?TAMARA NOBLES RN. BSN Lic. 83404 Wt-kg* 95.71 kg?? 09/29/2024 11:24:28 AM BOT?? YES ENIA?TAMARA NOBLES RN. BSN Lic. [id number] DYLAN ALVAREZ RN, BSN LIC. [id number], [facility] 09/29/2024 02:45:29 PM > Se reese [...] (Performed Date - 09/29/2024) 4.?Others? Notes: DYLAN ALVAREZ RN, BSN LIC. [id number], [facility] 09/29/2024 01:25:28 PM > Se recibe [...] refiere entender. DYLAN ALVAREZ RN, BSN LIC. [id number], [facility] 09/29/2024 01:25:29 PM > MIKIE SAM RN BSN, Lic. [id number], T[place]AS[place] 09/29/2024 02:00:01 PM > Se recibe llamada del laboratorio de la Lcda. Santi Barillas reportando influenza A positivo; se le notifica al Dr. Meza. MIKIE SAM SENIOR TECHNICAL RECRUITER, Lic. [id number], TREASURE 09/29/2024 02:00:02 PM > BACILIO JOSEPH RNN LIC. 69127, [facility] 09/29/2024 02:44:16 PM > Paciente es [...] momento del renato. BACILIO JOSEPH RNN LIC. 97981, [facility] 09/29/2024 02:44:27 PM >?? * Procedure Codes:?39246 EMERG ENCY DEPT VISIT, 53666 EMERGENCY DEPT VISIT MOD MDM, 16751 X-RAY EXAM CHEST 2 VIEWS, [address] [place], [address] INFLUENZA ASSAY W/OPTIC A Y B * Preventive Medicine:? ??Myra de Emergencia:?Educaciones myra de emergencia?Se educo al paciente y/o familiar sobre?Medidas de seguridad en myra de emergencias, Prevencion de caidas, Tratamineto ofrecido, Manejo de condicion, Medicamento administrado, Procedimiento realizado SE EDUCA A PACIENTE, Medidas Antipireticas, SE EDUCA A FAMILIAR.?Disposicion?Disposicion?Cuidado en el hogar seguimiento medico primario.?Renato?[place]?al Hogar Estable.?Transportacion?Transportado en?Otro,?Acompanado por?Familiar.? ??RN Paciente Hypertenso:?Educacion [...] Information: * Visit Code:? * Procedure Codes:? 07063 EMERGENCY DEPT VISIT. 27070 EMERGENCY DEPT VISIT MOD MDM. 64203 X-RAY EXAM CHEST 2 VIEWS. [address] [place]. [address] INFLUENZA ASSAY W/OPTIC A Y B. * Sign off status: Completed true * Provider:?Manny Franco M.D. Date:?09/29/2024 Generated for Nellie newell/Fabien/eTransmitting on:?11/07/2024 03:40 PM BOT History and Physical Notes * [...]
== END 2024-11-07 15:17 | disposition home or self-care (01) ==
PROVIDERS: PCP Internal Medicine
DX: E11.65 Type 2 diabetes mellitus with hyperglycemia (principal); N89.8 Other specified noninflammatory disorders of vagina; R07.89 Other chest pain; R05.9 Cough, unspecified; I10 Essential (primary) hypertension; E78.5 Hyperlipidemia, unspecified; N39.0 Urinary tract infection, site not specified

== ENCOUNTER → 2024-11-07 13:46 | Outpatient (BNVA) | payer OTHER, SELFPAY | PROVIDERS: PCP Internal Medicine | DX: N89.8 Other specified noninflammatory disorders of vagina (principal); R07.89 Other chest pain; R05.9 Cough, unspecified; I10 Essential (primary) hypertension; E11.65 Type 2 diabetes mellitus with hyperglycemia; E78.5 Hyperlipidemia, unspecified; N39.0 Urinary tract infection, site not specified | CPT/HCPCS: 99212 ==

== ENCOUNTER 2024-11-17 15:00 | Outpatient (AMB) ==
--- NOTE | 2024-11-17 15:01 | MHC.OFFVIS ---
Intake Visit Reasons: u/s results Contracting Analyst Required: Yes Contracting Analyst Language: Junior Underwriter Services: Contracting Analyst Present (in person) Contracting Analyst Name: Shanika RAMIREZ Information Interpreted: non-clinical & clinical Allergies cyclobenzaprine [From Flexeril] Allergy (Intermediate, Verified 11/08/24 15:13) Dizziness orphenadrine [From Norflex] Allergy (Intermediate, Verified 11/08/24 15:13) Dizziness sarilumab [From Kevzara] Allergy (Intermediate, Verified 11/08/24 15:13) Rash HPI Comments Details: The patient is scheduled a telehealth visit for follow-up regarding her pelvic pain. The patient is doing well. The following workup was done so far: GC/CT negative. Last visit urine dip was negative. Pelvic ultrasound showed the following: Uterus: The uterus is anteverted and measures 7.7 x 2.5 x 5.8 cm. The double wall endometrial thickness is 4 mm. The uterus is smooth in contour and has normal myometrial echogenicity. No visible fibroid. Adnexa: The right ovary measures 1.3 x 0.6 x 1.5 cm for a volume of 0.6 mL. Left ovary was not seen. No free fluid was visualized in the cul-de-sac. [facility] Medical History (Updated 11/08/24 @ 16:49 by ALPHONSE Gauthier) Urinary tract infection Bronchitis Morbid obesity with BMI of 45.0-49.9, adult Sacroiliitis Rheumatic fever TIA (transient ischemic attack) Right-sided back pain History of COVID-19 Asthma exacerbation Hospital discharge follow-up Sacroiliitis Renal calculi Costovertebral angle tenderness Burning with urination Disc degeneration, lumbar Spondylosis of cervical spine Spondylosis of lumbar spine Pleuritic pain Restrictive lung disease Morbid obesity Asthma Dyslipidemia Essential hypertension Vaginal modesta Seropositive rheumatoid arthritis Rheumatoid arthritis Diabetes Surgical History History of cholecystectomy Hx of colonoscopy (09/01/19) History of surgery on wrist Family History Father Diabetes mellitus Myocardial infarction Hypertension CVD (cardiovascular disease) Mother Diabetes mellitus CVD (cardiovascular disease) Sister No problems noted. Son No problems noted. Son No problems noted. Son No problems noted. Daughter Thyroiditis Daughter No problems noted. Daughter No problems noted. Daughter No problems noted. Daughter No problems noted. Other Asthma exacerbation Social History Housing: Apartment Alcohol intake: never Patient Tobacco Use Status: Never used Tobacco e-Cigarette/Vaping Use: Never Used Second Hand Smoke Exposure: No service: No Current occupational status: disabled Sexual orientation: Straight/Heterosexual Gender identity: Female Cognitive needs: No Hearing needs: No Vision needs: No Female Reproductive History Menstrual Age of Menarche: 11 Date of menopause: 01/22/10 Review of Systems Const All systems reviewed & are unremarkable except as noted in HPI and below Reports as per HPI and Reports no additional complaints GI Reports no additional complaints Reports no additional complaints Telehealth Telehealth Telehealth Platform: Telephone Location of provider rendering services: practice address Location of patient: address on file Patient Identification confirmed using: Name, : Yes Telehealth method: video Patient verbally consented to treatment: Yes Patient verbally consented to billing insurance company: Yes Patient informed of any privacy concerns related to visit: Yes Minutes spent on Phone/Video with Pt.: 3 Assessment & Plan Assessment & Plan (1) Pelvic pain: Code(s): R10.2 - Pelvic and perineal pain Category: Medical Plan: Discussed with the patient the results of the workup done including negative GC/chlamydia, urine dip, and pelvic ultrasound. Differential diagnosis of tube building machine operator causes that have not be ruled out yet include but not limited to pelvic adhesions , or other. Recommended for the patient to see her PCP for further workup for non tube building machine operator causes; if the all the results are negative and the patient's pelvic pain is persistent, instructions given to patient to call back for further testing. Meanwhile, instructions were given the patient to go to emergency room or call in case of fever above 100.4, heavy vaginal bleeding, persistence or worsening of her pelvic pain. All questions answered, the patient verbalized understanding. I spent a total of 20 minutes reviewing the chart, talking to the patient via video and documenting in the medical record. Coding Level of Care Code Tele Est Pt Level 3 (28292) Diagnoses Pelvic pain R10.2
== END 2024-11-17 15:26 | disposition home or self-care (01) ==
LOC: HO.HWS 15:00
PROVIDERS: PCP Internal Medicine; Visit Provider Obstetrics & Gynecology
DX: R10.2 Pelvic and perineal pain (principal)
CPT/HCPCS: 99213

== ENCOUNTER → 2024-11-17 15:00 | Outpatient (BNVA) | payer OTHER, SELFPAY | PROVIDERS: PCP Internal Medicine; Visit Provider Obstetrics & Gynecology ==

== ENCOUNTER 2024-11-20 15:47 | Outpatient (AMB) | payer OTHER, SELFPAY ==
[2024-11-20 15:51] VITALS: BP 140/70; PULSE 70; O2SAT 99; BMI 40.0
--- NOTE | 2024-11-20 15:51 | MHC.OFFVIS ---
Vital Signs 11/20/24 15:51 Height 5 ft 1 in Weight 211 lb 10.3 oz BMI 40.0 BP 140/70 H Blood Pressure Location Lt brachial Position Sitting Pulse 70 Pulse Source Pulse Oximeter Pulse Oximetry (%) 99 Oxygen Delivery Method Room Air Intake Visit Reasons: Pulmonary Nodule, Cough, COPD Intake Note: pt is here for follow up, she still has a cough, no different Corporate Safety Manager Required: Yes Corporate Safety Manager Services: Corporate Safety Manager Present Corporate Safety Manager Name: [phone] pantera good Allergies cyclobenzaprine [From Flexeril] Allergy (Intermediate, Verified 11/20/24 15:55) Dizziness orphenadrine [From Norflex] Allergy (Intermediate, Verified 11/20/24 15:55) Dizziness sarilumab [From Kevzara] Allergy (Intermediate, Verified 11/20/24 15:55) Rash Medication List - Last Reconciled 11/20/24 by Deena Grande MD albuterol sulfate 90 mcg/actuation 2 inhalations PO Q4H PRN albuterol sulfate 2.5 mg (3 mL) inhalation Q4-6H PRN 30 days blood pressure monitor As directed blood pressure test kit-large As directed blood sugar diagnostic (FreeStyle Lite Strips) Use 1 test strip once a day blood-glucose meter (FreeStyle Lite Meter kit) E11.9 ONCE A DAY cefuroxime axetil 250 mg PO BID [cock up splint wear on the right wrist at night ] diclofenac sodium 1% (Aleve (diclofenac)) 2 grams topical QID 30 days docusate sodium (Col-Rite) 100 mg PO BID dulaglutide (Trulicity) 0.75 mg (0.5 mL) subcut QWEEK 90 days fluticasone propion-salmeterol 230-21 mcg/actuation (Advair HFA) 2 puffs inhalation Q12H 30 days gabapentin 300 mg PO TID 30 days guaifenesin ER (Mucinex) 600 mg PO BID ibuprofen 600 mg PO Q8H PRN ipratropium-albuterol 0.5 mg-3 mg(2.5 mg base)/3 mL 3 mL inhalation Q6H PRN lancets (FreeStyle Lancets) Use 1 lancet once a day as needed lidocaine 5% 1 patch topical DAILY losartan 100 mg PO DAILY 30 days meclizine 50 mg PO DAILY PRN metformin 1,000 mg PO BID 90 days nabumetone 750 mg PO BID 30 days upcychjg-bjfclr-OV-thonzonium 3.3-3-10-0.5 mg/mL (Cortisporin-TC) 5 drps otic (ear) left QID Orencia ClickJect (abatacept) 125 mg subcut QWEEK NS prednisone 10 mg PO DIRECTED rosuvastatin 10 mg PO DAILY 90 days sennosides (senna) 8.6 mg PO BEDTIME PRN 7 days Do you need a note to return to daycare/school/sports/work: No HPI HPI Pulmonary Nodule: Details: ZEKE COMES BACK FOR FOLLOW-UP FOR HER SAME COMPLAINT OF ONGOING COUGH. LISINOPRIL WAS CHANGED TO LOSARTAN. AND IT HAS NOT MADE ANY DRAMATIC EFFECT YET. INTENSITY VEER OF COUGH IS LESS. SHE COMPLAINS THAT MOST OF THE COUGH IS AT NIGHT, AND DURING THE DAYTIME SHE HAS MILD COUGH BUT QUITE FREQUENTLY WHEN SHE IS TALKING TO SOMEONE OR DOING ANY PHYSICAL WORK. SHE HAS NO WHEEZES THE COUGH IS MOSTLY DRY USING ADVAIR INHALER AND ALSO ALBUTEROL INHALER OR IN THE NEBULIZER DOES DECREASE THE AMOUNT OF COUGH. [facility] Medical History Urinary tract infection Bronchitis Morbid obesity with BMI of 45.0-49.9, adult Sacroiliitis Rheumatic fever TIA (transient ischemic attack) Right-sided back pain History of COVID-19 Asthma exacerbation Hospital discharge follow-up Sacroiliitis Renal calculi Costovertebral angle tenderness Burning with urination Disc degeneration, lumbar Spondylosis of cervical spine Spondylosis of lumbar spine Pleuritic pain Restrictive lung disease Morbid obesity Asthma Dyslipidemia Essential hypertension Vaginal modesta Seropositive rheumatoid arthritis Rheumatoid arthritis Diabetes Surgical History History of cholecystectomy Hx of colonoscopy (09/01/19) History of surgery on wrist Family History Father Diabetes mellitus Myocardial infarction Hypertension CVD (cardiovascular disease) Mother Diabetes mellitus CVD (cardiovascular disease) Sister No problems noted. Son No problems noted. Son No problems noted. Son No problems noted. Daughter Thyroiditis Daughter No problems noted. Daughter No problems noted. Daughter No problems noted. Daughter No problems noted. Other Asthma exacerbation Social History Housing: Apartment Alcohol intake: never Patient Tobacco Use Status: Never used Tobacco e-Cigarette/Vaping Use: Never Used Second Hand Smoke Exposure: No service: No Current occupational status: disabled Sexual orientation: Straight/Heterosexual Gender identity: Female Cognitive needs: No Hearing needs: No Vision needs: No Female Reproductive History Menstrual Age of Menarche: 11 Date of menopause: 01/22/10 Review of Systems Const All systems reviewed & are unremarkable except as noted in HPI and below Eyes Reports no additional complaints ENT Reports nasal congestion (Mild off and on) Card Denies chest pain, Denies irregular heart rhythm and Denies leg edema Resp Reports as per HPI and Reports cough (Mild to moderate cough since the COVID 2 weeks ago) GI Reports constipation Reports other (Mild burning with urination) Musc Reports no additional complaints Skin/Breast Reports system reviewed and no additional complaints, except as documented Neuro Reports no additional complaints Psych Reports no additional complaints Physical Exam Vital Signs: Last Vital Signs Pulse 70 11/20/24 15:51 BP 140/70 H 11/20/24 15:51 Pulse Ox 99 11/20/24 15:51 Oxygen Delivery Method Room Air 11/20/24 15:51 BMI result Body Mass Index 40.0 Const General: comfortable (EXCEPT FOR FREQUENT COUGH.), no acute distress, alert and awake Orientation/consciousness: patient oriented x3 HEENT Other: NASOPHARYNX IS CLEAR ON EXAMINATION, NO EXCESSIVE MUCUS IS NOTED. Head: Yes normal to inspection General nose exam: No nasal polyps present and No nasal discharge present Face and sinus: Yes sinuses nontender Mouth: oropharynx normal (Throat is very clear no exudates noted) Throat: Yes posterior oropharynx normal Eyes General: appearance normal, both eyes and all related structures Neck Neck: Yes normal visual inspection, Yes no lymphadenopathy, Yes trachea midline and Yes no JVD Thyroid: Thyroid normal Chest Chest palpation & inspection: normal inspection of the chest, normal palpation of entire chest wall and no tenderness Resp Other: Percussion note is resonant, breath sounds equal on both sides, moderately distant , Breath sounds are diminished over the basilar areas, otherwise both sides of the chest are clear. The only issue is that with every deep breath she starts having lot of cough. Cardio Palpation: normal PMI Rate: regular rate Rhythm: regular rhythm Heart sounds: no gallops and no murmurs GI Palpation (GI): Soft to palpation, nontender, No hepatosplenomegaly present and no masses Auscultation: normal bowel sounds Back/Spine/Pelvis Thoracic/Lumbar Spine: thoracic and lumbar spine normal to inspection, thoraco-lumbar ROM limited, thoraco-lumbar spasm and thoracic spinal tenderness Skin General skin exam: no rashes or lesions noted Neuro General: patient oriented x3 and no focal motor deficits Cranial nerves: Yes CN's II-XII intact bilaterally Extrem General: Yes normal to inspection, Yes no clubbing, cyanosis or edema and Yes no calf tenderness Psych Appearance: grossly normal Speech and movement: Normal speech and movement present Assessment & Plan Assessment & Plan (1) Morbid obesity with BMI of 40.0-44.9, adult: Comment: Continues to be grossly obese, BMI= 40.4 but denies symptoms of ORTEGA Code(s): E66.01 - Morbid (severe) obesity due to excess calories; Z68.41 - Body mass index [BMI] 40.0-44.9, adult Category: Medical Plan: WE HAVE EXPLAINED TO HER ABOUT DIET AND EXERCISE BUT SHE IS NOT ABLE TO COMPLY WITH THESE MEASURES. (2) Restrictive lung disease: Comment: Clinically she has restrictive lung disease mainly because of her obesity. Code(s): J98.4 - Other disorders of lung Category: Medical Plan: ADVISED TO LOSE SOME WEIGHT AND KEEP ON DOING DEEP BREATHING EXERCISES (3) Cough: Comment: Ongoing cough is the main distressing symptom at this time. This does not seem to be related to any active respiratory infection. LISINOPRIL WAS REPLACED WITH LOSARTAN 100 MG P.O. DAILY. BLOOD PRESSURE IS WELL CONTROLLED. THERE HAS BEEN NO SIGNIFICANT DECREASE IN THE COUGH SO FOR, IT MAY BE TOO EARLY. TO EXPECT ANY CHANGE Code(s): R05.9 - Cough, unspecified Category: Medical Qualifiers: Cough type: unspecified Qualified Code(s): R05.9 - Cough, unspecified Plan: ADVISED TO CONTINUE PRESENT TREATMENT. ADVISED TO USE HUMIDIFICATION IN THE HOUSE. ADVISED TO USE ALBUTEROL SOLUTION IN THE NEBULIZER OR ALBUTEROL HFA P.R.N. WHEN THE COUGH BECOMES MORE INTENSE. (4) Pulmonary nodules: Comment: CT scan of the chest in December 2021 showed, bilateral pulmonary nodules, But 1 in the right upper lobe 6 mm in size. Patient is nonsmoker, and has an average risk factor. REASSURED AND EXPLAINED ABOUT THE NODULE. LAST CT SCAN OF THE CHEST ON FEBRUARY 17, AGAIN SHOWED PULMONARY NODULE 6 MM IN THE RIGHT UPPER LOBE, OTHER NONSPECIFIC OPACITIES HAD CLEARED. Code(s): R91.8 - Other nonspecific abnormal finding of lung field Category: Medical Plan: ABOVE Coding Level of Care Code Est Pt Level 3 (85070) Diagnoses Morbid obesity with BMI of 40.0-44.9, adult E66.01; Z68.41 Restrictive lung disease J98.4 Cough, unspecified type R05.9 Cough type: unspecified Pulmonary nodules R91.8
== END 2024-11-20 16:08 | disposition home or self-care (01) ==
PROVIDERS: PCP Internal Medicine; Visit Provider Internal Medicine
DX: E66.01 Morbid (severe) obesity due to excess calories (principal); Z68.41 Body mass index [BMI] 40.0-44.9, adult; J98.4 Other disorders of lung; R05.9 Cough, unspecified; R91.8 Other nonspecific abnormal finding of lung field
CPT/HCPCS: 99213

== ENCOUNTER → 2024-11-20 15:47 | Outpatient (BNVA) | payer OTHER, SELFPAY | PROVIDERS: PCP Internal Medicine; Visit Provider Internal Medicine | DX: J98.4 Other disorders of lung (principal); R91.8 Other nonspecific abnormal finding of lung field; R05.9 Cough, unspecified; E66.01 Morbid (severe) obesity due to excess calories; Z68.41 Body mass index [BMI] 40.0-44.9, adult; Z79.899 Other long term (current) drug therapy | CPT/HCPCS: 99212 ==

== ENCOUNTER 2024-12-06 10:37 | Outpatient (REF) | payer OTHER, SELFPAY ==
--- NOTE | ~2024-12-06 | XR_ITS ---
EXAMINATION: XR CHEST 2 VIEWS HISTORY: R05.9 - Cough, unspecified COMPARISON: Comparison is made with the prior examination dated 09/16/2024. FINDINGS: PA and lateral views of the chest are submitted. There is mild bilateral perihilar interstitial prominence which may reflect viral versus reactive airways disease. There are no focal airspace opacities. There is no pleural effusion, pneumothorax, or pulmonary vascular congestion. The heart is normal in size. The bones are intact. XR/XR chest 2V IMPRESSION: Mild bilateral perihilar interstitial prominence which may represent viral versus reactive airways disease. Electronically signed by: Spencer Sanders MD 12/06/2024 02:52 PM [facility]
== END 2024-12-06 10:38 | disposition home or self-care (01) ==
LOC: HO.XRAY 10:37
PROVIDERS: PCP Internal Medicine; Visit Provider Internal Medicine
DX: J18.9 Pneumonia, unspecified organism (principal); E11.65 Type 2 diabetes mellitus with hyperglycemia; Z68.41 Body mass index [BMI] 40.0-44.9, adult; I10 Essential (primary) hypertension; E78.5 Hyperlipidemia, unspecified; R05.9 Cough, unspecified; Z79.84 Long term (current) use of oral hypoglycemic drugs
CPT/HCPCS: 71046; 99212

== ENCOUNTER 2024-12-06 10:37 | Outpatient (AMB) | payer OTHER, SELFPAY ==
[2024-12-06 10:39] VITALS: BP 142/82; PULSE 81; O2SAT 95; BMI 40.1
--- NOTE | 2024-12-06 10:39 | MHC.PC.OV ---
Vital Signs 12/06/24 10:39 Height 5 ft 1 in Weight 212 lb BMI 40.1 BP 142/82 H Blood Pressure Location Lt brachial Position Sitting Pulse 81 Pulse Source Pulse Oximeter Pulse Oximetry (%) 95 Oxygen Delivery Method Room Air Intake Visit Reasons: pain in ribs Intake Note: Patient seems short of breath and there seems to be some wheezing. It Help Desk Technician Required: Yes It Help Desk Technician Language: Persian Allergies cyclobenzaprine [From Flexeril] Allergy (Intermediate, Verified 12/06/24 10:39) Dizziness orphenadrine [From Norflex] Allergy (Intermediate, Verified 12/06/24 10:39) Dizziness sarilumab [From Kevzara] Allergy (Intermediate, Verified 12/06/24 10:39) Rash Medication List - Last Reconciled 12/06/24 by Mary Ann Car MD albuterol sulfate 90 mcg/actuation 2 inhalations PO Q4H PRN albuterol sulfate 2.5 mg (3 mL) inhalation Q4-6H PRN 30 days blood pressure monitor As directed blood pressure test kit-large As directed blood sugar diagnostic (FreeStyle Lite Strips) Use 1 test strip once a day blood-glucose meter (FreeStyle Lite Meter kit) E11.9 ONCE A DAY [cock up splint wear on the right wrist at night ] docusate sodium (Col-Rite) 100 mg PO BID dulaglutide (Trulicity) 0.75 mg (0.5 mL) subcut QWEEK 90 days fluticasone propion-salmeterol 230-21 mcg/actuation (Advair HFA) 2 puffs inhalation Q12H 30 days gabapentin 300 mg PO TID 30 days ibuprofen 600 mg PO Q8H PRN ipratropium-albuterol 0.5 mg-3 mg(2.5 mg base)/3 mL 3 mL inhalation Q6H PRN lancets (FreeStyle Lancets) Use 1 lancet once a day as needed losartan 100 mg PO DAILY 30 days meclizine 50 mg PO DAILY PRN metformin 1,000 mg PO BID 90 days nabumetone 750 mg PO BID 30 days Orencia ClickJect (abatacept) 125 mg subcut QWEEK NS rosuvastatin 10 mg PO DAILY 90 days sennosides (senna) 8.6 mg PO BEDTIME PRN 7 days Tobacco use date assessed: 10/31/24 Fall risk assessment: No Falls in past year Last assessed Fall Risk: 12/06/24 Dental Screening Dental Screen Date: 10/31/24 HPI pain in ribs 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 cough - had flu > month with sob, , no fevers, feeling sob PFSH Medical History Urinary tract infection Bronchitis Morbid obesity with BMI of 45.0-49.9, adult Sacroiliitis Rheumatic fever TIA (transient ischemic attack) Right-sided back pain History of COVID-19 Asthma exacerbation Hospital discharge follow-up Sacroiliitis Renal calculi Costovertebral angle tenderness Burning with urination Disc degeneration, lumbar Spondylosis of cervical spine Spondylosis of lumbar spine Pleuritic pain Restrictive lung disease Morbid obesity Asthma Dyslipidemia Essential hypertension Vaginal modesta Seropositive rheumatoid arthritis Rheumatoid arthritis Diabetes Surgical History History of cholecystectomy Hx of colonoscopy (09/01/19) History of surgery on wrist Family History Father Diabetes mellitus Myocardial infarction Hypertension CVD (cardiovascular disease) Mother Diabetes mellitus CVD (cardiovascular disease) Sister No problems noted. Son No problems noted. Son No problems noted. Son No problems noted. Daughter Thyroiditis Daughter No problems noted. Daughter No problems noted. Daughter No problems noted. Daughter No problems noted. Other Asthma exacerbation Social History Housing: Apartment Alcohol intake: never Patient Tobacco Use Status: Never used Tobacco Tobacco use type: Cigarette e-Cigarette/Vaping Use: Never Used Second Hand Smoke Exposure: No service: No Current occupational status: disabled Sexual orientation: Straight/Heterosexual Gender identity: Female Cognitive needs: No Hearing needs: No Vision needs: No Female Reproductive History Menstrual Age of Menarche: 11 Date of menopause: 01/22/10 Questionnaire Thrive Questionnaire Date Thrive assessed: 10/31/24 SONA-7 AMB Questionnaire SONA-7 Date SONA - 7 assessed: 10/31/24 Source: Developed by Drs. Spencer Gonzalez, Anamaria Bartlett, Clayton Azar and colleagues, with an educational anna from [employer]. Physical exam (Primary Care) Vital Signs: Last Vital Signs Pulse 81 12/06/24 10:39 BP 142/82 H 12/06/24 10:39 Pulse Ox 95 12/06/24 10:39 Oxygen Delivery Method Room Air 12/06/24 10:39 BMI result Body Mass Index 40.1 Tobacco/Smoking Status: Tobacco use Status Tobacco use date assessed 10/31/24 12/06/24 10:46 Patient Tobacco Use Status Never used Tobacco 12/06/24 10:46 Tobacco use type Cigarette 12/06/24 10:46 e-Cigarette/Vaping Use Never Used 12/06/24 10:46 Thrive Assessment: Date of Thrive Assessment Date Thrive assessed 10/31/24 12/06/24 10:46 Const General: alert; No acute distress Eyes Conjunctivae: conjunctivae normal Resp Other: Bibasilar crackles with wheezing Cardio Rate: regular rate Rhythm: regular rhythm GI Inspection: Yes normal to inspection Extrem General: Yes normal to inspection and No edema Coding Level of Care Code Est Pt Level 4 (99017) Complex EM visit Add On G2211 Diagnoses Type 2 diabetes mellitus with hyperglycemia E11.65 Morbid obesity with BMI of 40.0-44.9, adult E66.01; Z68.41 Essential hypertension I10 Dyslipidemia E78.5 Cough R05.9 Pneumonia J18.9 Assessment & Plan Assessment & Plan (1) Type 2 diabetes mellitus with hyperglycemia: Code(s): E11.65 - Type 2 diabetes mellitus with hyperglycemia Category: Medical Plan: Decrease the amount of carbohydrate intake, pasta, bread, rice and potatoes are all sugar and that is aside from all the sweet stuff, remember that fruits are good but they are Sweet also. Hemoglobin A1c goal of less than 6.5 patient is on Trulicity 0.75 mg once a week metformin a 1000 mg twice a day (2) Morbid obesity with BMI of 40.0-44.9, adult: Comment: Continues to be grossly obese, BMI= 40.4 but denies symptoms of ORTEGA Code(s): E66.01 - Morbid (severe) obesity due to excess calories; Z68.41 - Body mass index [BMI] 40.0-44.9, adult Category: Medical Plan: Diet and exercise (3) Essential hypertension: Code(s): I10 - Essential (primary) hypertension Category: Medical Plan: Continue with blood pressure medication. Decrease salt intake and exercise patient on losartan 100 mg once a day (4) Dyslipidemia: Code(s): E78.5 - Hyperlipidemia, unspecified Category: Medical Plan: Avoid fried foods, chicken skin, eggs, butter margarine, pastries and meat. Be it pork or beef they have a lot of cholesterol patient takes rosuvastatin [address] [facility] (5) Cough: Code(s): R05.9 - Cough, unspecified Category: Medical (6) Pneumonia: Code(s): J18.9 - Pneumonia, unspecified organism Category: Medical Plan History of Present Illness The patient is a 64-year-old female presenting with persistent cough and respiratory complaints primarily due to bacterial pneumonia. The symptoms started after mariah a flu while visiting [place] over a month ago. She has experienced ongoing coughing, shortness of breath, and right-sided chest discomfort that worsens at night and with bowel movements. Her medical history includes asthma, for which she uses Advair. Physical examination reveals lung crackles suggestive of pneumonia, necessitating a chest x-ray for confirmation. Additional health concerns include high blood glucose levels with a current hemoglobin A1c of 7.5%, for which the goal is less than 6.5%. She had cholesterol tests done in 2022 and requires ongoing monitoring. Health Maintenance - Monitoring and managing hemoglobin A1c levels, with a target goal of less than 6.5%. - Discussion on recent cholesterol testing conducted in 2022 with a recommendation for annual screening. - Addressed diet and exercise regarding diabetes management. Social History - Exercise and functional status: Patient involved with diet and exercise as part of diabetes management, although specifics were not discussed. - Nutritional intake: Details on nutritional intake were not explicitly provided. - Has a machine for albuterol therapy; however, specifics of usage frequency and management were not stated. Review of Systems - Respiratory: Reports cough, shortness of breath, chest pressure, and crackles. - Gastrointestinal: Reports pain in the right side that intensifies after bowel movements. - Other systems were not discussed. Physical Exam - Respiratory- Presence of crackles in the lungs upon auscultation. Results - Imaging: Chest X-ray ordered for suspicion of bacterial pneumonia. - Labs regarding hemoglobin A1c and cholesterol were discussed but specific recent results were not included. Plan A chest x-ray is arranged to confirm suspected bacterial pneumonia. Antibiotic therapy is established with Doxycycline and Zithromax for effective treatment. Concurrently, symptomatic relief includes Mucinex for mucus clearance and Delsym for nocturnal cough alleviation. Reassurance of adequate hydration is addressed for systemic support in treatment. Asthma management involves continued Advair use with proper mouth rinsing, and regular exercise and diet for optimal diabetes management are reinforced. Follow-up with Paige Mcneal for comprehensive diabetes and hypertension management, and repeat cholesterol monitoring annually are advised. Patient was informed and verbally consented to the use of an ambient scribe for clinic note documentation during this visit. Discussion Notes I discussed the likely diagnosis of bacterial pneumonia with the patient, highlighting the need for a confirmatory chest x-ray. I explained the prescribed antibiotic regimen of Doxycycline and Zithromax, detailing the dosing schedule and expected outcomes. I emphasized the importance of hydration and Mucinex for mucus relief, and advised the use of Delsym for nighttime cough relief. I outlined the management of her asthma with Advair, highlighting the importance of mouth rinsing and inhalation technique. I reiterated the need for strict diabetes management, highlighting the goal of reducing hemoglobin A1c levels and follow-up with her primary care provider, Paige Mcneal, for comprehensive management. We reviewed recent cholesterol tests and emphasized annual monitoring. The patient consented to the management plan and expressed understanding of the follow-up requirements. Patient Instructions - Complete the full course of prescribed antibiotics: Doxycycline twice daily for 7 days and Zithromax as directed. - Use Delsym at night to reduce cough and improve sleep. - Stay well-hydrated to aid in mucous clearance; consider using Mucinex. - Rinse mouth after using Advair to prevent oral irritation. - Maintain a balanced diet and regular exercise to help manage diabetes; monitor blood sugar levels closely. - Follow up with your primary care provider, Paige Mcneal, especially for diabetes and hypertension management. - Contact healthcare provider if symptoms worsen or if there is no improvement within a few days. - Schedule annual cholesterol testing for continued monitoring. Orders: Orders XR chest 2V Today R05.9 - Cough, unspecified Medications: New amoxicillin-pot clavulanate 875-125 mg 1 tab PO BID 14 tabs 0RF J18.9 - Pneumonia, unspecified organism azithromycin (Zithromax) For 250 mg dose pack: take 500 mg today (day 1), then 250 mg for 4 days (days 2-5) PO 6 tabs 0RF J18.9 - Pneumonia, unspecified organism
--- OUTSIDE RECORDS SUMMARY | 2024-12-06 13:08 | XMS_ITS ---
Author Organization [facility] Address [facility] [place] [address] Care Team Providers Care Advertising Teacher Name Role Phone LUKE OCAMPONaren Primary Care Provider MEZA FRANCO, MANNY Unavailable Allergies Allergen (clinical drug ingredient) Drug/Non Drug Allergy documented on EMR Reaction Allergy Type Onset Date Status Flexeril dizziness Drug Allergy Active Norflex dizziness Drug Allergy Active Results Component Value Reference Range Notes CHEST-2 VIEWS Reviewed date:09/29/2024 02:40:29 PM Interpretation: Performing Lab: Notes/Report: See Below For Report [id number].Report Text See Below For Report COVID-19 ANTIGEN [...] with a molecular assay. LICENSE.: [id number] CLIA: [id number] -- Negative results, from patients with symptom onset beyond seven days, DIRECTOR: JAIME SARAVIA differentiate between SARS-CoV and SARS-CoV-2. Num: [id number] bacterial infection or co-infection with other viruses and do not Exp: 12/08/2024 [place] [address] necessary to determine infection status. Positive results do not rule out Paid 5 Cents [address] correlation with patient history and other diagnostic information is Pat. No.: [id number] [facility] de [facility] [place] -- Positive results indicate the presence of COVID-19 antigen, but clinical Col. Tabitha. Med. P.R. ORDER [id number] PERFORMED AT: COVID-19 Ag NEGATIVE NEGATIVE METHOD: [...] clinical data. Col. Tabitha. Med. P.R. ORDER [id number] PERFORMED AT: Negative test results do not rule out other non-influenza viral infections Pat. No.: [id number] [facility] [place] Positive test results do not identify specific influenza A virus subtypes Paid 5 Cents [address] Individuals who recieved nasally influenza A vaccine may have positive Exp: 12/08/2024 [place] [address] test results for up to three days after vaccination. Num: [id number] DIRECTOR: JAIME SARAVIA LICENSE.: [id number] CLIA: [id number] INFLUENZA A ANTIGEN POSITIVE NEGATIVE INFLUENZA B ANTIGEN NEGATIVE NEGATIVE METHOD: STATUS COVID-19/FLU A&B REASON FOR VISIT TAMARA NOBLES RN. BSN Lic. [id number], SHARDA Das 09/29/2024 11:22:32 AM > PACIENTE ACUDE A EVALUACION, REFIERE TOS, DOLOR DE CUERPO Y FIEBRE.ELIOIA TEREZA, TAMARA NOBLES RN. BSN Lic. [id number], MIGUEL 09/29/2024 11:23:59 AM > Medications Medication [...] a day for 30 day(s) 07/21/2018 Active Xtmpyflo-Yabmmjhym-LW 1 % 4 drops into a ffected [...] use: Nonsmoker Section Notes: TAMARA RIBERAN Lic. [id number], SHARDA M 09/29/2024 11:15:44 AM > Vital [...] kg 09/29/2024 DYLAN ALVAREZ RN, BSN LIC. [id number], [facility] 09/29/2024 02:45:29 PM > Se reese Signos vitales para proceso de renato. Encounters Encounter Location Date Provider Diagnosis PAIGE OCAMPO [address] [place], [place] [id number] 09/29/2024 MANNY MEZA FRANCO URTI (acute upper [...] 09/29/2024 Other DYLAN ALVAREZ RN, BSN LIC. [id number], [facility] 09/29/2024 01:25:28 PM > Se [...] refiere entender. DYLAN ALVAREZ RN, BSN LIC. [id number], [facility] 09/29/2024 01:25:29 PM > MIKIE SAM RN BSN, Lic. [id number] 09/29/2024 02:00:01 PM > Se recibe llamada del laboratorio de la Lcda. Santi Barillas reportando influenza A positivo; se le notifica al Dr. Meza. MIKIE SAM RN BSN, Lic. [id number], [place] 09/29/2024 02:00:02 PM > DYLAN ALVAREZ RN, BSN LIC. [id number], [facility] 09/29/2024 02:44:16 PM > Paciente [...] del renato. DYLAN ALVAREZ RN, BSN LIC. [id number], [facility] 09/29/2024 02:44:27 PM > Plan [...] > Other DYLAN ALVAREZ RN, BSN LIC. [id number] [facility] 09/29/2024 01:25:28 PM > Se [...] refiere entender. DYLAN ALVAREZ RN, BSN LIC. [id number], [facility] 09/29/2024 01:25:29 PM > MIKIE SAM RN BSN, Lic. [id number] 09/29/2024 02:00:01 PM > Se recibe llamada del laboratorio de la Lcda. Santi Barillas reportando influenza A positivo; se le notifica al Dr. Meza. MIKIE SAM RN BSN, Lic. [id number] 09/29/2024 02:00:02 PM > DYLAN ALVAREZ RN, BSN LIC. [id number] [facility] 09/29/2024 02:44:16 PM > Paciente [...] del renato. DYLAN ALVAREZ RN, BSN LIC. [id number], NATHANIEL Das 09/29/2024 02:44:27 PM > Progress Notes * Laura HOWARDDOB: (64 yo F)Acc No.[id number]:09/29/2024 Patient:?Shania HOWARD zeina Provider:?Manny Franco M.D. :1960???Age:64 Y???Sex:Female D ate:09/29/2024 Address:[address] [place], [place] [id number] Pcp:PAIGE OCAMPO Check In:11:24 AM BOTBlaireck O ut:02:47 PM BOT Subjective: * Chief Complaints: * ???1. TAMARA NOBLES RN. BSN Lic. [id number], SHARDA 09/29/2024 11:22:32 AM > PACIENTE ACUDE A EVALUACION, REFIERE TOS, DOLOR DE CUERPO Y FIEBRE.CATEGORIA TEREZA. 2. TAMARA NOBLES RN. BSN Lic. [id number], SHARDA Das 09/29/2024 11:23:59 AM >. * [...] lugar y persona.?TAMARA NOBLES RN. BSN Lic. [id number], SHARDA Das 09/29/2024 11:14:47 AM >. * [...] ..Vivienda?con radha,?..Sospecha de maltrato?No,?..Viaje reciente fuera de [place] <2 meses?No,?Transfusion/inmunisaciones?Siguiente,?..Transfusiones de maura?No,?..Reaccion a transfusion?No,?..Inmunizacion?Si,?..Inmunizacion Tet[place]?Si,?Nececidades para comunicacion o acomodo?Ninguna,?Paciente o familiar comprende requeridos e instrucciones de [place] doctor??Si,?Paciente expresa chrsisie para el cumplimiento de [place] tratamiento?No.?Drug/Alcohol:?AUDIT-C (Standard)?Did [...] los ultimos 14 alicea?Yes,?Cuando?,?Simmons viajado fuera de [place] o simmons estado en contacto con alguien que haya estado fuera de [place] en los pasados 14 alicea?No,?Se simmons vacunado contra el COVID-19?Refuerzo.?TAMARA NOBLES RN. BSN Lic. [id number], SHARDA M 09/29/2024 11:15:44 AM >. * [...] Orally TWO times a day , Not-Taking/PRN Yiuebylc-Sivkczicw-TF 1 % Solution 4 drops into affected ear RIGHT EAR Otic Three times a day , Medication List reviewed and reconciled with the patient * Allergies:?Norflex: dizzines s - Allergy, Flexeril: dizziness - Allergy. Objective: * Vitals: Ht 61in?? 09/29/2024 11:24:28 AM BOT?? Wt* 211 lbs?? 09/29/2024 11:24:28 AM BOT?? YES ENIA?TAMARA FELTONRIO RN. BSN Lic. [id number] BMI* 39.86Index?? 09/29/2024 11:24:28 AM BOT?? YES ENIA?TAMARA FELTONRIO RN. BSN Lic. [id number] Pain scale* 51-10?? 09/29/2024 11:24:28 AM BOT?? YES ENIA?TAMARA FELTONRIO RN. BSN Lic. [id number] BP* 139/80mm Hg?? 09/29/2024 02:45:32 PM BOT?? GEN ESIS?DYLAN ALVAREZ RN, BSN LIC. 31388 142/70 mm Hg?? 09/29/2024 11:28:47 AM BOT?? YES ENIA?TAMARA FELTONRIO RN. BSN Lic. 69580 HR* 90/min?? 09/29/2024 02:45:32 PM BOT?? GEN ESIS?DYLAN ALVAREZ RN, BSN LIC. [id number] 108 /min?? 09/29/2024 11:26:26 AM BOT?? YES ENIA?TAMARA FELTONRIO RN. BSN Lic. [id number] RR* 19/min?? 09/29/2024 02:45:32 PM BOT?? GEN ESIS?DYLAN ALVAREZ RN, BSN LIC. 93662 23 /min?? 09/29/2024 11:26:26 AM BOT?? YES ENIA?TAMARA FELTONRIO RN. BSN Lic. [id number] Temp* 36.6C?? 09/29/2024 02:45:32 PM BOT?? GEN ESIS?DYLAN ALVAREZ RN, BSN LIC. 50327 37.5 C?? 09/29/2024 11:26:26 AM BOT?? YES ENIA?MCDONALD MALLORIE RN. BSN Lic. 41493 Oxygen sat %* 99%?? 09/29/2024 02:45:32 PM BOT?? GEN ESIS?DYLAN ALVAREZ RN, BSN LIC. 10819 96 %?? 09/29/2024 11:26:26 AM BOT?? YES ENIA?MCDONALD MALLORIE RN. BSN Lic. 19900 LMP* POSTMENOPAUSAL?? 09/29/2024 11:26:55 AM BOT?? YE SANDY?TAMARA MALLORIE RN. BSN Lic. [id number] Glucose:* 230MG/DL?? 09/29/2024 11:28:47 AM BOT?? YES ENIA?TAMARA FELTONRIO RN. BSN Lic. 49404 Ht-cm* 154.94 cm?? 09/29/2024 11:24:28 AM BOT?? YES ENIA?TAMARA NOBLES RN. BSN Lic. 15523 Wt-kg* 95.71 kg?? 09/29/2024 11:24:28 AM BOT?? YES ENIA?TAMARA NOBLES RN. BSN Lic. [id number] DYLAN ALVAREZ RN, BSN LIC. 62507, [facility] 09/29/2024 02:45:29 PM > Se [...] 4.?Others? Notes: DYLAN ALVAREZ RN, BSN LIC. 40039, [facility] 09/29/2024 01:25:28 PM > Se [...] refiere entender. DYLAN ALVAREZ RN, BSN LIC. 42555, [facility] 09/29/2024 01:25:29 PM > MIKIE SAM RN BSN, Lic. [id number], TREASURE 09/29/2024 02:00:01 PM > Se recibe llamada del laboratorio de la Lcda. Santi Barillas reportando influenza A positivo; se le notifica al Dr. Meza. MIKIE SAM APPLICATION DEVELOPMENT CONSULTANT, Lic. [id number], TREASURE 09/29/2024 02:00:02 PM > BACILIO JOSEPH RNN LIC. 38047, [facility] 09/29/2024 02:44:16 PM > Paciente [...] momento del renato. BACILIO JOSEPH RNN LIC. [id number], [facility] 09/29/2024 02:44:27 PM >?? * Procedure Codes:?78365 EMERG ENCY DEPT VISIT, 10951 EMERGENCY DEPT VISIT MOD MDM, 97292 X-RAY EXAM CHEST 2 VIEWS, [address] [place], [address] INFLUENZA ASSAY W/OPTIC A Y B * Preventive Medicine:? ??Myra de Emergencia:?Educaciones myra de emergencia?Se educo al paciente y/o familiar sobre?Medidas de seguridad en myra de emergencias, Prevencion de caidas, Tratamineto ofrecido, Manejo de condicion, Medicamento administrado, Procedimiento realizado SE EDUCA A PACIENTE, Medidas Antipireticas, SE EDUCA A FAMILIAR.?Disposicion?Disposicion?Cuidado en el hogar seguimiento medico primario.?[place]?al Hogar Estable.?Transportacion?Transportado en?Otro,?Acompanado por?Familiar.? ??RN Paciente Hypertenso:?Educacion [...] educa al paciente sobre el cuidado de priom condiciones cronicas de yoli?Yes.? ??RN Paciente diabetico:?Educacion [...] Information: * Visit Code:? * Procedure Codes:? 38350 EMERGENCY DEPT VISIT. 06482 EMERGENCY DEPT VISIT MOD MDM. 44040 X-RAY EXAM CHEST 2 VIEWS. [address] [place]. [address] INFLUENZA ASSAY W/OPTIC A Y B. * Sign off status: Completed true * Provider:?Manny Franco M.D. Date:?09/29/2024 Generated for Nellie newell/Fabien/eTransmitting on:?12/06/2024 02:06 PM BOT History and Physical Notes * [...]
== END 2024-12-06 11:16 | disposition home or self-care (01) ==
PROVIDERS: PCP Internal Medicine; Visit Provider Internal Medicine
DX: E11.65 Type 2 diabetes mellitus with hyperglycemia (principal); E66.01 Morbid (severe) obesity due to excess calories; Z68.41 Body mass index [BMI] 40.0-44.9, adult; I10 Essential (primary) hypertension; E78.5 Hyperlipidemia, unspecified; R05.9 Cough, unspecified; J18.9 Pneumonia, unspecified organism

== ENCOUNTER → 2024-12-06 11:27 | Outpatient (BNV) | payer OTHER, SELFPAY | PROVIDERS: PCP Internal Medicine; Visit Provider Radiology Diagnostic Radiology | DX: R05.9 Cough, unspecified (principal) | CPT/HCPCS: 71046 ==

== ENCOUNTER 2025-01-18 14:13 | Outpatient (AMB) | payer MEDICARE, MEDICAID, SELFPAY ==
[2025-01-18 14:39] VITALS: BP 130/86; PULSE 62; O2SAT 99; BMI 40.4
--- NOTE | 2025-01-18 14:39 | MHC.OFFVIS ---
Vital Signs 01/18/25 14:39 Height 5 ft 1 in Weight 213 lb 13.574 oz BMI 40.4 BP 130/86 Blood Pressure Location Lt brachial Position Sitting Pulse 62 Pulse Source Pulse Oximeter Pulse Oximetry (%) 99 Oxygen Delivery Method Room Air Intake Visit Reasons: Pulmonary Nodule Intake Note: pt is here for follow up and states she has pressure in her chest, and cough still no phlegm Nursing Unit Coordinator Required: Yes Nursing Unit Coordinator Services: Nursing Unit Coordinator Present Nursing Unit Coordinator Name: Lolly Allergies cyclobenzaprine [From Flexeril] Allergy (Intermediate, Verified 01/18/25 15:06) Dizziness orphenadrine [From Norflex] Allergy (Intermediate, Verified 01/18/25 15:06) Dizziness sarilumab [From Kevzara] Allergy (Intermediate, Verified 01/18/25 15:06) Rash Medication List - Last Reconciled 01/18/25 by Deena Grande MD albuterol sulfate 90 mcg/actuation 2 inhalations PO Q4H PRN albuterol sulfate 2.5 mg (3 mL) inhalation Q4-6H PRN 30 days blood pressure monitor As directed blood pressure test kit-large As directed blood sugar diagnostic (FreeStyle Lite Strips) Use 1 test strip once a day blood-glucose meter (FreeStyle Lite Meter kit) E11.9 ONCE A DAY [cock up splint wear on the right wrist at night ] docusate sodium (Col-Rite) 100 mg PO BID dulaglutide (Trulicity) 0.75 mg (0.5 mL) subcut QWEEK 90 days fluticasone propionate 220 mcg/actuation 2 puffs inhalation BID gabapentin 300 mg PO TID 30 days ibuprofen 600 mg PO Q8H PRN ipratropium-albuterol 0.5 mg-3 mg(2.5 mg base)/3 mL 3 mL inhalation Q6H PRN lancets (FreeStyle Lancets) Use 1 lancet once a day as needed losartan 100 mg PO DAILY 30 days meclizine 50 mg PO DAILY PRN metformin 1,000 mg PO BID 90 days nabumetone 750 mg PO BID 30 days Orencia ClickJect (abatacept) 125 mg subcut QWEEK NS rosuvastatin 10 mg PO DAILY 90 days sennosides (senna) 8.6 mg PO BEDTIME PRN 7 days Do you need a note to return to daycare/school/sports/work: No HPI HPI Pulmonary Nodule: Details: 65 YEARS OLD FEMALE, IS HERE FOR HER FOLLOW-UP AFTER 4 MONTHS. HER CHIEF COMPLAINT IS ONGOING COUGH, MOSTLY DRY, AND NONPRODUCTIVE. SHE DOES HAVE MILD CHRONIC NASAL CONGESTION. DENIES SMOKING. SHE HAS SOME OBSTRUCTIVE AIRWAY DISORDER. USES FLOVENT-TO 22 PUFFS B.I.D., AND FREQUENTLY USES ALBUTEROL. LAST TIME I HAVE PRESCRIBED ADVAIR HFA BUT IT WAS NOT COVERED BY HER INSURANCE. SO SHE HAS CONTINUE TO USE FLOVENT. SHE HAS TENDENCY TO HAVE FREQUENT BOUTS OF BRONCHITIS. HER PREVIOUS CT SCAN HAS SHOWN A 6 MM NODULE IN THE RIGHT UPPER LOBE, SHE IS CONCERNED ABOUT THIS AND WANTS TO BE FOLLOWED. [facility] Medical History Urinary tract infection Bronchitis Morbid obesity with BMI of 45.0-49.9, adult Sacroiliitis Rheumatic fever TIA (transient ischemic attack) Right-sided back pain History of COVID-19 Asthma exacerbation Hospital discharge follow-up Sacroiliitis Renal calculi Costovertebral angle tenderness Burning with urination Disc degeneration, lumbar Spondylosis of cervical spine Spondylosis of lumbar spine Pleuritic pain Restrictive lung disease Morbid obesity Asthma Dyslipidemia Essential hypertension Vaginal modesta Seropositive rheumatoid arthritis Rheumatoid arthritis Diabetes Surgical History History of cholecystectomy Hx of colonoscopy (09/01/19) History of surgery on wrist Family History Father Diabetes mellitus Myocardial infarction Hypertension CVD (cardiovascular disease) Mother Diabetes mellitus CVD (cardiovascular disease) Sister No problems noted. Son No problems noted. Son No problems noted. Son No problems noted. Daughter Thyroiditis Daughter No problems noted. Daughter No problems noted. Daughter No problems noted. Daughter No problems noted. Other Asthma exacerbation Social History Housing: Apartment Alcohol intake: never Patient Tobacco Use Status: Never used Tobacco Tobacco use type: Cigarette e-Cigarette/Vaping Use: Never Used Second Hand Smoke Exposure: No service: No Current occupational status: disabled Sexual orientation: Straight/Heterosexual Gender identity: Female Cognitive needs: No Hearing needs: No Vision needs: No Female Reproductive History Menstrual Age of Menarche: 11 Date of menopause: 01/22/10 Review of Systems Const All systems reviewed & are unremarkable except as noted in HPI and below Eyes Reports no additional complaints ENT Reports nasal congestion (Mild off and on) Card Denies chest pain, Denies irregular heart rhythm and Denies leg edema Resp Reports as per HPI and Reports cough (Mild to moderate cough since the COVID 2 weeks ago) GI Reports constipation Reports other (Mild burning with urination) Musc Reports no additional complaints Skin/Breast Reports system reviewed and no additional complaints, except as documented Neuro Reports no additional complaints Psych Reports no additional complaints Physical Exam Vital Signs: Last Vital Signs Pulse 62 01/18/25 14:39 BP 130/86 01/18/25 14:39 Pulse Ox 99 01/18/25 14:39 Oxygen Delivery Method Room Air 01/18/25 14:39 BMI result Body Mass Index 40.4 Const General: comfortable (EXCEPT FOR FREQUENT COUGH.), no acute distress, alert and awake Orientation/consciousness: patient oriented x3 HEENT Other: NASOPHARYNX IS CLEAR ON EXAMINATION, NO EXCESSIVE MUCUS IS NOTED. Head: Yes normal to inspection General nose exam: No nasal polyps present and No nasal discharge present Face and sinus: Yes sinuses nontender Mouth: oropharynx normal (Throat is very clear no exudates noted) Throat: Yes posterior oropharynx normal Eyes General: appearance normal, both eyes and all related structures Neck Neck: Yes normal visual inspection, Yes no lymphadenopathy, Yes trachea midline and Yes no JVD Thyroid: Thyroid normal Chest Chest palpation & inspection: normal inspection of the chest, normal palpation of entire chest wall and no tenderness Resp Other: Percussion note is resonant, breath sounds equal on both sides, moderately distant , Breath sounds are diminished over the basilar areas, otherwise both sides of the chest are clear. The only issue is that with every deep breath she starts having cough. Cardio Palpation: normal PMI Rate: regular rate Rhythm: regular rhythm Heart sounds: no gallops and no murmurs GI Palpation (GI): Soft to palpation, nontender, No hepatosplenomegaly present and no masses Auscultation: normal bowel sounds Back/Spine/Pelvis Thoracic/Lumbar Spine: thoracic and lumbar spine normal to inspection, thoraco-lumbar ROM limited, thoraco-lumbar spasm and thoracic spinal tenderness Skin General skin exam: no rashes or lesions noted Neuro General: patient oriented x3 and no focal motor deficits Cranial nerves: Yes CN's II-XII intact bilaterally Extrem General: Yes normal to inspection, Yes no clubbing, cyanosis or edema and Yes no calf tenderness Psych Appearance: grossly normal Speech and movement: Normal speech and movement present Assessment & Plan Assessment & Plan (1) Cough: Comment: Ongoing cough is the main problem . This does not seem to be related to any active respiratory infection. LISINOPRIL WAS REPLACED WITH LOSARTAN 100 MG P.O. DAILY. BLOOD PRESSURE IS WELL CONTROLLED. Most likely the ongoing chronic cough is asthma variant /reactive airways. Code(s): R05.9 - Cough, unspecified Category: Medical Qualifiers: Cough type: unspecified Qualified Code(s): R05.9 - Cough, unspecified Plan: Continue Flovent , but doze should be reduced to 110, 2 puffs b.i.d. Use albuterol 2 puffs Q 4-6 hours p.r.n. an alternatively she may use albuterol solution in the nebulizer Q 4-6 hours p.r.n. (2) Restrictive lung disease: Comment: Clinically she has restrictive lung disease mainly because of her obesity. Code(s): J98.4 - Other disorders of lung Category: Medical Plan: Advised to lose some weight, which she has not been able to do. Advised to do deep breathing exercises, to 2 -3 times a day. (3) Asthma: Comment: Ongoing cough is probably secondary to asthma variant/reactive airways. Code(s): J45.909 - Unspecified asthma, uncomplicated Category: Medical Plan: Treatment as under cough . (4) Pulmonary nodules: Comment: CT scan of the chest in December 2021 showed, bilateral pulmonary nodules, But 1 in the right upper lobe 6 mm in size. Patient is nonsmoker, and has an average risk factor. REASSURED AND EXPLAINED ABOUT THE NODULE. LAST CT SCAN OF THE CHEST ON FEBRUARY 17, AGAIN SHOWED PULMONARY NODULE 6 MM IN THE RIGHT UPPER LOBE, Patient is quite concerned. Code(s): R91.8 - Other nonspecific abnormal finding of lung field Category: Medical Plan: Will order CT scan of the chest once again Orders: Orders CT chest wo IV con Today R91.8 - Other nonspecific abnormal finding of lung field Medications: New fluticasone propionate 110 mcg/actuation administer with spacer 2 puffs inhalation BID 30 days 12 grams 5RF Asthma/Cough Coding Level of Care Code Est Pt Level 3 (31247) Diagnoses Cough, unspecified type R05.9 Cough type: unspecified Restrictive lung disease J98.4 Asthma J45.909 Pulmonary nodules R91.8
== END 2025-01-18 15:06 | disposition home or self-care (01) ==
PROVIDERS: PCP Internal Medicine; Visit Provider Internal Medicine
DX: R05.9 Cough, unspecified (principal); J98.4 Other disorders of lung; J45.909 Unspecified asthma, uncomplicated; R91.8 Other nonspecific abnormal finding of lung field
CPT/HCPCS: 99213

== ENCOUNTER → 2025-01-18 14:13 | Outpatient (BNVA) | payer MEDICAID, SELFPAY | PROVIDERS: PCP Internal Medicine; Visit Provider Internal Medicine | DX: J98.4 Other disorders of lung (principal); J45.909 Unspecified asthma, uncomplicated; R91.8 Other nonspecific abnormal finding of lung field; Z79.899 Other long term (current) drug therapy | CPT/HCPCS: 99212 ==

== ENCOUNTER 2025-02-09 16:46 | Emergency (ER) | payer MEDICARE, MEDICAID, SELFPAY ==
--- NOTE | ~2025-02-09 | XR_ITS ---
CLINICAL HISTORY: cough, chills 2 view chest x-ray Comparison: CR/SR - XR CHEST 2V - 12/06/24 11:58 EST Findings: The lungs are clear. Similar prominent/enlarged cardiac silhouette. No acute fracture. IMPRESSION: 1. No acute findings. This document has been electronically signed by: Reno Alfredo MD on 02/09/2025 22:49:21
--- NOTE | ~2025-02-09 | CT_ITS ---
CLINICAL HISTORY: right flank, RUQ RLQ pain CT abdomen and pelvis without contrast Comparison: CT/SR - CT ABDOMEN PELVIS WO IV CON - 11/04/24 16:19 EST Findings: Motion and streak artifact limit evaluation. Diffuse esophageal mural thickening, nonspecific. Atelectasis with mosaic attenuation suggesting air trapping. Cardiomegaly. Hepatomegaly with steatosis. No urolithiasis. No bowel obstruction, pneumoperitoneum, or pneumatosis. Fat containing umbilical hernia. Scattered colonic diverticulosis without diverticulitis or colitis. Normal appendix. Osteopenia with diffuse multilevel spondylosis. Grade 1 anterolisthesis at L4-L5. Postcholecystectomy. IMPRESSION: No acute findings. This document has been electronically signed by: Reno Alfredo MD on 02/09/2025 22:48:01
[2025-02-09 17:35] VITALS: BP 210/70; PULSE 68; RESP 16; TEMP 37.1; O2SAT 99; BMI 40.6
--- NOTE | 2025-02-09 17:44 | ED.FEMALEGU ---
HPI - Female Genitourinary General Chief complaint: Urogenital-Female Stated complaint: abd pain Time Seen by Provider: 02/09/25 21:35 Source: patient, RN notes reviewed, old records reviewed and gut dropper (Micronesian) Mode of arrival: ambulatory Limitations: language barrier (Micronesian) History of Present Illness ED Provider: KATEY CAGLE PA-C HPI Narrative: 65 year old Micronesian-speaking female with pmhx significant for DM, HTN, asthma presents to the ED today for evaluation of right flank pain wrapping around to right lower abdomen x1 week. Reports history of similar with unremarkable work ups. Admits to increased urinary urgency and dysuria. Denies any fever, chills, nausea, vomiting, diarrhea, constipation, hematuria, melena, or hematochezia. Pertinent surgical history includes cholecystectomy. No history of renal stones. No blunt injury/trauma. No back pain, saddle anesthesia, bowel/bladder incontinence or retention. No hx IVDU. No spinal surgery. No otc pain meds for symptoms. Also reports recent increase in blood pressure readings at home. She has been struggling with elevated blood pressure over the last few months. Admits her primary care doctor recently increased her lisinopril from 20 mg QD to 40 mg QD. Primary care doctor has been monitoring this. Reports compliance with home medications. Admits to headache earlier that has since resolved. Also reports chronic cough. No sputum production. Denies headache, dizziness, vision changes/ blurred vision, chest pain, palpitations, SOB. Related Data Home Medications ?Medication ?Instructions ?Recorded ?Confirmed blood pressure test kit-large #1 ea 06/02/24 02/13/25 fluticasone propionate 220 2 puff inhalation BID 01/18/25 02/13/25 mcg/actuation HFA aerosol inhaler Previous Rx's ?Medication ?Instructions ?Recorded albuterol sulfate 90 mcg/actuation 2 inh PO Q4H PRN shortness of 08/13/20 aerosol inhaler breath or wheezing #8.5 grams docusate sodium 100 mg capsule 100 mg PO BID #30 caps 12/07/22 (Col-Rite) blood sugar diagnostic (FreeStyle #50 ea 02/10/23 Lite Strips) blood-glucose meter (FreeStyle #1 ea 02/10/23 Lite Meter kit) lancets 28 gauge (FreeStyle #100 ea 02/10/23 Lancets) cock up splint #1 ea 03/03/23 metformin 1,000 mg tablet 1,000 mg PO BID 90 days #180 tabs 06/29/23 blood pressure monitor #1 ea 02/07/24 nabumetone 750 mg tablet 750 mg PO BID 30 days #60 tabs 03/30/24 rosuvastatin 10 mg tablet 10 mg PO DAILY 90 days #90 tabs 04/20/24 sennosides 8.6 mg tablet (senna) 8.6 mg PO BEDTIME PRN constipation 04/20/24 7 days #7 tabs ibuprofen 600 mg tablet 600 mg PO Q8H PRN pain #14 tabs 04/23/24 meclizine 50 mg tablet 50 mg PO DAILY PRN motion sickness 04/23/24 #14 tabs gabapentin 300 mg capsule 300 mg PO TID pain 30 days #90 caps 07/06/24 albuterol sulfate 2.5 mg/3 mL 2.5 mg (3 mL) inhalation Q4-6H PRN 08/30/24 (0.083 %) solution for nebulization shortness of breath or wheezing 30 days #90 mL losartan 100 mg tablet 100 mg PO DAILY hypertension 30 10/26/24 days #30 tabs fluticasone propionate 110 2 puff inhalation BID Asthma/Cough 01/18/25 mcg/actuation HFA aerosol inhaler 30 days #12 grams dulaglutide 0.75 mg/0.5 mL 0.75 mg (0.5 mL) subcut QWEEK 90 02/08/25 subcutaneous pen injector days #6.5 mL (Trulicity) ipratropium 0.5 mg-albuterol 3 mg 3 ml inhalation Q6H PRN wheezing 02/09/25 (2.5 mg base)/3 mL nebulization #180 mL soln Orencia ClickJect 125 mg/mL 125 mg subcut QWEEK #4 mL 02/13/25 subcutaneous auto-injector (abatacept) omeprazole 20 mg capsule,delayed 20 mg PO DAILY #90 caps 02/13/25 release Allergies Allergy/AdvReac Type Severity Reaction Status Date / Time cyclobenzaprine Allergy Intermediate Dizziness Verified 02/13/25 15:13 [From Flexeril] orphenadrine [From Norflex] Allergy Intermediate Dizziness Verified 02/13/25 15:13 sarilumab [From Kevzara] Allergy Intermediate Rash Verified 02/13/25 15:13 Review of Systems Review of Systems: Yes all other systems are reviewed and are negative [facility] Past Medical History Attestation statement: The following information was validated with the patient. Source: old records reviewed and nursing notes reviewed Medical History Urinary tract infection Bronchitis Morbid obesity with BMI of 45.0-49.9, adult Sacroiliitis Rheumatic fever TIA (transient ischemic attack) Right-sided back pain History of COVID-19 Asthma exacerbation Hospital discharge follow-up Sacroiliitis Renal calculi Costovertebral angle tenderness Burning with urination Disc degeneration, lumbar Spondylosis of cervical spine Spondylosis of lumbar spine Pleuritic pain Restrictive lung disease Morbid obesity Asthma Dyslipidemia Essential hypertension Vaginal modesta Seropositive rheumatoid arthritis Rheumatoid arthritis Diabetes Surgical History History of cholecystectomy Hx of colonoscopy (09/01/19) History of surgery on wrist Family History Family History Father Diabetes mellitus Myocardial infarction Hypertension CVD (cardiovascular disease) Mother Diabetes mellitus CVD (cardiovascular disease) Sister No problems noted. Son No problems noted. Son No problems noted. Son No problems noted. Daughter Thyroiditis Daughter No problems noted. Daughter No problems noted. Daughter No problems noted. Daughter No problems noted. Other Asthma exacerbation Social History Social History Housing: Apartment Alcohol intake: never Patient Tobacco Use Status: Never used Tobacco Tobacco use type: Cigarette e-Cigarette/Vaping Use: Never Used Second Hand Smoke Exposure: No service: No Current occupational status: disabled Sexual orientation: Straight/Heterosexual Gender identity: Female Cognitive needs: No Hearing needs: No Vision needs: No Physical Exam Vital Signs: Vital Signs: Last Vital Signs Temp 97.8 F 02/10/25 01:06 Pulse 65 02/10/25 01:06 Resp 16 02/10/25 01:06 BP 175/84 H 02/10/25 01:06 Pulse Ox 98 02/10/25 01:06 O2 Del Method Room Air 02/10/25 01:06 BMI result Body Mass Index 40.6 hypertensive, vitals otherwise wnl General: Well appearing, in no acute distress. Skin: Warm, dry, intact. No rashes or lesions. Head: Normocephalic, atraumatic. EENT: Hearing is intact b/l. Conjunctiva clear. Sclera is anicteric. PERRLA. EOM intact. Moist mucous membranes.? Neck: Supple without LAD Cardiac: Chest wall symmetric. RRR Lungs: Normal respiratory effort without accessory muscle use. dry cough noted. CTA bilaterally. Abdomen: Soft, non-tender, non-distended. No rebound tenderness or guarding. Positive BS x4. negative frost sign. +mild cvat to right Back: No midline spinous or paraspinal tenderness. No step off deformity. Ext: Upper and lower extremities atraumatic, without tenderness, deformity, swelling or erythema Neuro: AOx3. Normal speech. NIH 0. Strength 5/5 intact throughout. No saddle anesthesia. Sensation intact to light touch. NV intact distally. Ambulating with steady gait. Psych: Appropriate mood and affect. Responds appropriately to questions. Course Course Course Narrative: This is an RME performed by Lavern Avalos CNP: Additional HPI, ROS, PE not included below will be deferred to primary provider. Patient is a 65-year-old female who presents emergency department for evaluation of right flank pain radiating into abdomen for the past week with urinary urgency and dysuria and frequency. Some associated chills. Also complaining of a headache, elevated BP, elevated blood sugar levels, reporting burning sensation to the bilateral eyes but no vision changes. Reevaluation(s) Reevaluation #1: CBC without leukocytosis or left shift. No anemia, h&h stable. Chemistry without acute electrolyte abnormalities requiring intervention. No opal. Random glucose 215. No anion gap. Liver function wnl, lipase wnl. Urine without infection. Negative covid/flu/rsv. CXR unremarkable - dry cough likely secondary to lisinopril use. Abdominal ct unremarkable.? > work up reassuring. At this time, no etiology for patients symptoms. Treated with toradol and IVF with improvement. Advised outpatient follow up. Patient has remained stable throughout ED visit today. Discussed worrisome signs and symptoms and when to return to the ED. All questions answered at this time. Patient is agreeable with disposition and stable for discharge. Medications Administered Discontinued Medications Generic Name Dose Route Start Last Admin Trade Name Fernieq PRN Reason Stop Dose Admin Sodium Chloride 1,000 mls @ 999 mls/hr 02/09/25 22:15 02/09/25 23:04 Ns IV 02/09/25 23:15 999 mls/hr .Q1H1M JARRET Administration Ketorolac Tromethamine 30 mg 02/09/25 22:04 02/09/25 23:04 Ketorolac Tromethamine 30 Mg/Ml Vial IM 02/09/25 22:05 30 mg ONCE ONE Administration Medical Decision Making Medical Decision Making [facility] Narrative: 65 year old Micronesian-speaking female with pmhx significant for DM, HTN, asthma presents to the ED today for evaluation of right flank pain wrapping around to right lower abdomen x1 week. hypertensive, vitals are otherwise wnl. she is nontoxic appearing and in NAD. exam benign. Differential diagnosis includes renal colic, nephrolithiasis, gastroenteritis, gastritis, PUD, UTI, anemia, electrolyte abnormality, hypertension. Abdominal exam without peritoneal signs. No evidence of acute abdomen at this time. Well appearing. Moderate suspicion for acute hepatobiliary disease (s/p cholecystectomy). Less likely to represent DKA, hypertensive urgency v emergency, acute pancreatitis, perforated ulcer/ GI bleed, acute infectious processes (pneumonia, hepatitis, pyelonephritis), atypical appendicitis, vascular catastrophe, bowel obstruction or viscus perforation. Presentation not consistent with other acute, emergent causes of abdominal pain at this time. Plan: labs, UA, pain control, CT, serial reassessment Differential Diagnosis Differential Diagnoses: The differential diagnosis associated with the presentation includes as above. Admission/Observation not indicated. Lab Data [facility] Lab Attestation statement: I reviewed the patient's lab results. as above. 02/09/25 18:08 02/09/25 18:08 Labs: Lab Results 02/09/25 02/09/25 02/09/25 Range/Units 18:08 20:31 22:44 WBC 6.9 (4.8-10.8) X10*3/uL RBC 4.12 L (4.20-5.50) X10*6/uL Hgb 13.1 (12.0-16.0) g/dl Hct 37.4 (37.0-47.0) % MCV 90.8 (80.0-98.0) fL MCH 31.8 (27.0-33.0) pg MCHC 35.0 (31.0-35.0) g/dl RDW 11.8 (11.0-16.0) % Plt Count 160 (160-400) X10*3/uL MPV 10.8 (9.4-12.3) fL Immature Gran % (Auto) 0.6 H (0.0-0.4) % Neut % (Auto) 47.0 (45-73) % Lymph % (Auto) 37.8 (20-40) % Mitchell % (Auto) 6.8 (2-11) % Eos % (Auto) 7.4 H (0-4) % Baso % (Auto) 0.4 (0-2) % Lymph # (Auto) 2.6 (1.2-4.9) X10*3/uL Mitchell # (Auto) 0.5 (0.1-1.2) X10*3/uL Eos # (Auto) 0.5 H (0.0-0.4) X10*3/uL Baso # (Auto) 0.0 (0.0-0.2) X10*3/uL Abs Immat Gran (auto) 0.04 H (0.00-0.03) X10*3/uL Absolute Neuts (auto) 3.2 (2.0-8.3) x10*3/uL Absolute Nucleated RBC 0.000 (0.0-0.012) X10*3/uL Nucleated RBC % (auto) 0.0 (0.0-0.2) /100WBC Sodium 142 (135-145) mmol/L Potassium 4.3 (3.3-5.1) mmol/L Chloride 107 (96-108) mmol/L Carbon Dioxide 29 (22-29) mmol/L Anion Gap 10 L (12-20) BUN 14 (9-16) mg/dL Creatinine 0.69 (0.5-1.4) mg/dL Estim Creat Clear Calc 86.8 Estimated GFR > 60 Random Glucose 215 H (60-115) mg/dL Calcium 9.3 (8.4-10.2) mg/dL Magnesium 1.8 (1.6-2.6) mg/dL Total Bilirubin 0.5 (0.0-1.0) mg/dL AST 25 (5-31) U/L ALT 24 (0-31) U/L Alkaline Phosphatase 88 (39-117) U/L Total Protein 6.8 (6.5-8.0) g/dL Albumin 3.8 (3.5-5.0) g/dL Lipase 28 (8-78) U/L Urine Color Yellow Urine Appearance Clear Urine pH 6.0 (5.0-9.0) Ur Specific [place] 1.015 (1.005-1.025) Urine Protein Negative (Neg-Trace) mg/dL Urine Glucose (UA) Negative (Negative) mg/dL Urine Ketones Negative (Negative) mg/dL Urine Blood Negative (Negative) Urine Nitrite Negative (Negative) Ur Leukocyte Esterase Small (1+) H (Negative) Urine RBC 0-2 (0-2) /HPF Urine WBC 0-5 (0-5) /HPF Ur Squamous Epith Cells 3-5 (0-2) /HPF Urine Bacteria None Seen (None Seen) Hyaline Casts 0-2 (0-2) /LPF Influenza Type A (PCR) NEGATIVE (Negative) Influenza Type B (PCR) NEGATIVE (Negative) RSV RNA Qual (PCR) NEGATIVE (Negative) SARS-CoV-2 RNA (RT-PCR) NEGATIVE (Negative) Independent Interpretation I performed an independent interpretation of an: Plain X-Ray and CT Scan Interpretation: ct a/p without evidence of renal or ureteral stones, no cbd dilation cxr without infiltrate or consolidation, no effusion Radiology Impression Discussion of test interpretation with radiology: I have reviewed the radiologist's reading. Radiologist Impression: Procedure(s): CT abdomen pelvis wo IV con Accession Number(s): [id number] cc: aKtey Cagle; Aniyah Gonzalez MD~ Report Number: [id number]: Total DLP = 801.00 mGy-cm CLINICAL HISTORY: right flank, RUQ RLQ pain CT abdomen and pelvis without contrast Comparison: CT/SR - CT ABDOMEN PELVIS WO IV CON - 11/04/24 16:19 EST Findings: Motion and streak artifact limit evaluation. Diffuse esophageal mural thickening, nonspecific. Atelectasis with mosaic attenuation suggesting air trapping. Cardiomegaly. Hepatomegaly with steatosis. No urolithiasis. No bowel obstruction, pneumoperitoneum, or pneumatosis. Fat containing umbilical hernia. Scattered colonic diverticulosis without diverticulitis or colitis. Normal appendix. Osteopenia with diffuse multilevel spondylosis. Grade 1 anterolisthesis at L4-L5. Postcholecystectomy. IMPRESSION: No acute findings. Procedure(s): XR chest 2V Accession Number(s): [id number] cc: Katey Cagle; Aniyah Gonzalez MD~ CLINICAL HISTORY: cough, chills 2 view chest x-ray Comparison: CR/SR - XR CHEST 2V - 12/06/24 11:58 EST Findings: The lungs are clear. Similar prominent/enlarged cardiac silhouette. No acute fracture. IMPRESSION: 1. No acute findings. This document has been electronically signed by: Reno Alfredo MD on 02/09/2025 22:49:21 External Record Review External record reviewed: Inpatient record Social Determinants Patient?s care significantly limited by Social Determinants of Health including: Other Social Determinant of Health Critical Care Time Critical Care Time Critical Care Time: No Discharge Plan Discharge Clinical Impression: Right flank pain Patient Disposition: Home, Self-Care Instructions: Abdominal Pain (ED), Flank Pain (ED) Additional Instructions: Your workup today is reassuring. Your blood work is normal. Your urine does not demonstrate infection. You tested negative for COVID, flu, RSV. The CT scan of your abdomen/pelvis is unremarkable. Your chest x-ray does not demonstrate any pneumonia. You may take Tylenol and Motrin at home as needed for discomfort. Follow up with outpatient providers. Return with new or worsening symptoms. In the case of an emergency call 911. Prescriptions: No Action albuterol sulfate 90 mcg/actuation HFA aerosol inhaler 2 inh PO Q4H PRN (Reason: shortness of breath or wheezing) Qty: 8.5 1RF (DME) FreeStyle Lite Strips Strip See Rx Instructions .ROUTE .MEDSUPPLY Qty: 50 11RF Rx Instructions: Use 1 test strip once a day (DME) blood-glucose meter [FreeStyle Lite Meter] Kit See Rx Instructions .ROUTE .MEDSUPPLY Qty: 1 0RF Rx Instructions: E11.9 ONCE A DAY (DME) lancets [FreeStyle Lancets] 28 gauge misc See Rx Instructions .ROUTE .MEDSUPPLY Qty: 100 11RF Rx Instructions: Use 1 lancet once a day as needed (DME) blood pressure monitor Kit See Rx Instructions .Route Qty: 1 0RF Rx Instructions: As directed rosuvastatin 10 mg tablet 10 mg PO DAILY 90 Days Qty: 90 1RF albuterol sulfate 2.5 mg /3 mL (0.083 %) solution for nebulization 2.5 mg inhalation Q4-6H PRN (Reason: shortness of breath or wheezing) 30 Days Qty: 90 2RF Trulicity 0.75 mg/0.5 mL pen injector 0.75 mg subcut QWEEK 90 Days Qty: 6.5 1RF ipratropium-albuterol 0.5 mg-3 mg(2.5 mg base)/3 mL solution for nebulization 3 ml inhalation Q6H PRN (Reason: wheezing) Qty: 180 0RF omeprazole 20 mg capsule,delayed release(DR/EC) 20 mg PO DAILY Qty: 90 0RF docusate sodium [Col-Rite] 100 mg capsule 100 mg PO BID Qty: 30 0RF meclizine 50 mg tablet 50 mg PO DAILY PRN (Reason: motion sickness) Qty: 14 0RF ibuprofen 600 mg tablet 600 mg PO Q8H PRN (Reason: pain) Qty: 14 0RF sennosides [senna] 8.6 mg tablet 8.6 mg PO BEDTIME PRN (Reason: constipation) 7 Days Qty: 7 0RF nabumetone 750 mg tablet 750 mg PO BID 30 Days Qty: 60 6RF metformin 1,000 mg tablet 1,000 mg PO BID 90 Days Qty: 180 1RF (DME) blood pressure test kit-large Kit See Rx Instructions .ROUTE .MEDSUPPLY Qty: 1 Rx Instructions: As directed fluticasone propionate 220 mcg/actuation HFA aerosol inhaler 2 puff inhalation BID fluticasone propionate 110 mcg/actuation HFA aerosol inhaler 2 puff inhalation BID 30 Days Qty: 12 5RF Rx Instructions: administer with spacer (DME) cock up splint See Rx Instructions .Route .MEDSUPPLY Qty: 1 0RF Rx Instructions: wear on the right wrist at night gabapentin 300 mg capsule 300 mg PO TID 30 Days Qty: 90 6RF losartan 100 mg tablet 100 mg PO DAILY 30 Days Qty: 30 4RF albuterol sulfate 2.5 mg /3 mL (0.083 %) solution for nebulization 2.5 mg inhalation ONCE Qty: 3 0RF Orencia ClickJect 125 mg/mL auto-injector 125 mg subcut QWEEK Qty: 4 4RF Referrals: Aniyah Gonzalez MD [Primary Care Provider] - Interventions: ED Discharge Assessment Last Done: 02/10/25 01:06 Discharge Date/Time: 02/10/25 01:07 Print Language: Micronesian
[2025-02-09 18:12] LABS: MANUAL DIFF FLAG NO
[2025-02-09 18:13] LABS: Basophils Percent Auto 0.4 % (0-2); Eosinophils Absolute Auto 0.5 X10*3/uL (0.0-0.4); Eosinophils Percent Auto 7.4 % (0-4); Hematocrit 37.4 % (37.0-47.0); Hemoglobin 13.1 g/dl (12.0-16.0); Imm Gran Abs Auto 0.04 X10*3/uL (0.00-0.03); Imm Gran Pct Auto 0.6 % (0.0-0.4); Lymphocytes Absolute Auto 2.6 X10*3/uL (1.2-4.9); Lymphocytes Percent Auto 37.8 % (20-40); Mean Corpuscular Hemoglobin 31.8 pg (27.0-33.0); Mean Corpuscular Volume 90.8 fL (80.0-98.0); Mean Platelet Volume 10.8 fL (9.4-12.3); Monocytes Absolute Auto 0.5 X10*3/uL (0.1-1.2); Monocytes Percent Auto 6.8 % (2-11); Neutrophils Absolute Auto 3.2 x10*3/uL (2.0-8.3); Platelet Count 160 X10*3/uL (160-400); Red Blood Count 4.12 X10*6/uL (4.20-5.50); Red Cell Distribution Width 11.8 % (11.0-16.0); White Blood Count 6.9 X10*3/uL (4.8-10.8)
[2025-02-09 18:26] LABS: Alanine Aminotransferase 24 U/L (0-31); Albumin Level 3.8 g/dL (3.5-5.0); Alkaline Phosphatase 88 U/L (39-117); Anion Gap 10 (12-20); Aspartate Amino Transferase 25 U/L (5-31); Bilirubin Total 0.5 mg/dL (0.0-1.0); Blood Urea Nitrogen 14 mg/dL (9-16); Calcium 9.3 mg/dL (8.4-10.2); Carbon Dioxide 29 mmol/L (22-29); Chloride 107 mmol/L (96-108); Creatinine Clr Calc Pharmacy 86.8; Estimated Glomerular Filt Rate > 60; Glucose Random 215 mg/dL (60-115); Lipase 28 U/L (8-78); Magnesium 1.8 mg/dL (1.6-2.6); Potassium 4.3 mmol/L (3.3-5.1); Sodium 142 mmol/L (135-145); Total Protein 6.8 g/dL (6.5-8.0)
[2025-02-09 20:09] VITALS: BP 117/43; PULSE 72; RESP 18; O2SAT 100
[2025-02-09 20:42] LABS: Appearance Urine Clear; Color Urine Yellow; Glucose Urine UA Negative (Negative); Leukocyte Esterase Urine Small (1+) (Negative); Nitrite Urine Negative (Negative); Specific Gravity - Urine 1.015 (1.005-1.025); UMIC TRIGGER UACC YES; Urine Blood Negative (Negative); Urine Ketones Negative (Negative); Urine Protein Negative (Neg-Trace)
[2025-02-09 20:53] LABS: Bacteria Urine None Seen (None Seen); Hyaline Casts Urine 0-2 /LPF (0-2); RBC Urine 0-2 /HPF (0-2); UACC Culture Trigger YES; WBC Urine 0-5 /HPF (0-5)
[2025-02-09 22:37] VITALS: BP 158/49; PULSE 75; RESP 18; TEMP 36.4; O2SAT 99
[2025-02-09] MEDS: 0.9 % Sodium Chloride 1,000 ML 999 ML IV (23:04)
[2025-02-09] MEDS: Ketorolac Tromethamine 30 MG/ML VIAL IM (23:04)
[2025-02-09 23:28] LABS: Influenza A PCR NEGATIVE (Negative); Influenza B PCR NEGATIVE (Negative); Resp Syncy Virus RNA Qual PCR NEGATIVE (Negative); SARS COV2 PCR INHOUSE NEGATIVE (Negative)
[2025-02-10 00:42] VITALS: BP 175/84; PULSE 65; RESP 16; TEMP 36.6; O2SAT 98
[2025-02-10 01:06] VITALS: BP 175/84; PULSE 65; RESP 16; TEMP 36.6; O2SAT 98
== END 2025-02-10 01:07 | disposition home or self-care (01) ==
PROVIDERS: Physician Assistant Medical; Emergency Provider Emergency Medicine; PCP Internal Medicine
DX: R10.31 Right lower quadrant pain (principal); R10.11 Right upper quadrant pain; R05.9 Cough, unspecified; R30.0 Dysuria; R39.15 Urgency of urination; E11.9 Type 2 diabetes mellitus without complications; I10 Essential (primary) hypertension; Z03.818 Encounter for observation for suspected exposure to other biological agents ruled out
CPT/HCPCS: 0241U; 36415; 71046; 74176; 80053; 81001; 83690; 83735; 85025; 87086; 96360; 99284; 99285; J1885

== ENCOUNTER → 2025-02-09 22:02 | Outpatient (BNV) | payer MEDICARE, MEDICAID, SELFPAY | PROVIDERS: Emergency Provider Emergency Medicine; PCP Internal Medicine; Visit Provider Radiology Diagnostic Radiology | DX: R10.11 Right upper quadrant pain (principal); R10.31 Right lower quadrant pain; R50.9 Fever, unspecified | CPT/HCPCS: 71046; 74176 ==

== ENCOUNTER 2025-02-13 15:00 | Outpatient (AMB) | payer MEDICARE, MEDICAID, SELFPAY ==
--- NOTE | 2025-02-13 15:07 | A.OFFVIS_ITS ---
Vital Signs 02/13/25 15:17 Height 5 ft 1 in Weight 213 lb 6.519 oz BMI 40.3 BP 142/84 H Blood Pressure Location Lt brachial Position Sitting Respiration 16 Pulse 61 Pulse Source Pulse Oximeter Pulse Oximetry (%) 98 Oxygen Delivery Method Room Air Intake Visit Reasons: RA Intake Note: Patient presents for RA follow up. Help Desk Intern Required: Yes Help Desk Intern Language: Employee Services Manager Services: Help Desk Intern Offered & Declined Help Desk Intern Name: Bharti Babb Information Interpreted: non-clinical & clinical Stamping Die Maker: Stamping Die Maker Present Accompanied by: Family/Other Allergies cyclobenzaprine [From Flexeril] Allergy (Intermediate, Verified 02/13/25 15:13) Dizziness orphenadrine [From Norflex] Allergy (Intermediate, Verified 02/13/25 15:13) Dizziness sarilumab [From Kevzara] Allergy (Intermediate, Verified 02/13/25 15:13) Rash Medication List - Last Reconciled 02/13/25 by Vicky Marcial MD albuterol sulfate 90 mcg/actuation 2 inhalations PO Q4H PRN albuterol sulfate 2.5 mg (3 mL) inhalation Q4-6H PRN 30 days blood pressure monitor As directed blood pressure test kit-large As directed blood sugar diagnostic (FreeStyle Lite Strips) Use 1 test strip once a day blood-glucose meter (FreeStyle Lite Meter kit) E11.9 ONCE A DAY [cock up splint wear on the right wrist at night ] docusate sodium (Col-Rite) 100 mg PO BID dulaglutide (Trulicity) 0.75 mg (0.5 mL) subcut QWEEK 90 days fluticasone propionate 110 mcg/actuation 2 puffs inhalation BID 30 days fluticasone propionate 220 mcg/actuation 2 puffs inhalation BID gabapentin 300 mg PO TID 30 days ibuprofen 600 mg PO Q8H PRN ipratropium-albuterol 0.5 mg-3 mg(2.5 mg base)/3 mL 3 mL inhalation Q6H PRN lancets (FreeStyle Lancets) Use 1 lancet once a day as needed losartan 100 mg PO DAILY 30 days meclizine 50 mg PO DAILY PRN metformin 1,000 mg PO BID 90 days nabumetone 750 mg PO BID 30 days omeprazole 20 mg PO DAILY Orencia ClickJect (abatacept) 125 mg subcut QWEEK NS rosuvastatin 10 mg PO DAILY 90 days sennosides (senna) 8.6 mg PO BEDTIME PRN 7 days HPI Comments Details: Patient is a 65-year-old female with asthma, hypertension complicated by a lacunar infarct, diabetes, hyperlipidemia, cervical disc herniation and lumbar spondylosis with radiculopathy, nonalcoholic fatty liver disease and seropositive rheumatoid arthritis here today for follow up Interval History: Patient last seen 10/25/[address] Coley. At that time she was following up for her seropositive deforming rheumatoid arthritis. She had run out of her Orencia about 2 months prior to the appointment and was having return of pain an d swelling of both her feet. She was advised to restart her Orencia soon as possible Patient restarted her Orencia and had improvement in her joint pain but continues to complain of back pain Saw Pain Management in the past and received back injections but they were not helpful No other complaints today. Rheumatologic History: ++RF+++CCP deforming dx in her 40s Humira:08/29 - 03/30 -active disease on exam Enbrel:04/29-08/30 - active disease on exam Xeljanz:08/30-12/29- active disease on exam Kevzara: 01/2021- stopped due to rash Orencia: 01/2021 - present effective MTX in the past - transaminitis Current Rheumatology Medication(s): Abatacept 125mg every week PFSH Medical History Urinary tract infection Bronchitis Morbid obesity with BMI of 45.0-49.9, adult Sacroiliitis Rheumatic fever TIA (transient ischemic attack) Right-sided back pain History of COVID-19 Asthma exacerbation Hospital discharge follow-up Sacroiliitis Renal calculi Costovertebral angle tenderness Burning with urination Disc degeneration, lumbar Spondylosis of cervical spine Spondylosis of lumbar spine Pleuritic pain Restrictive lung disease Morbid obesity Asthma Dyslipidemia Essential hypertension Vaginal modesta Seropositive rheumatoid arthritis Rheumatoid arthritis Diabetes Surgical History History of cholecystectomy Hx of colonoscopy (09/01/19) History of surgery on wrist Family History Father Diabetes mellitus Myocardial infarction Hypertension CVD (cardiovascular disease) Mother Diabetes mellitus CVD (cardiovascular disease) Sister No problems noted. Son No problems noted. Son No problems noted. Son No problems noted. Daughter Thyroiditis Daughter No problems noted. Daughter No problems noted. Daughter No problems noted. Daughter No problems noted. Other Asthma exacerbation Social History Housing: Apartment Alcohol intake: never Patient Tobacco Use Status: Never used Tobacco Tobacco use type: Cigarette e-Cigarette/Vaping Use: Never Used Second Hand Smoke Exposure: No service: No Current occupational status: disabled Sexual orientation: Straight/Heterosexual Gender identity: Female Cognitive needs: No Hearing needs: No Vision needs: No Female Reproductive History Menstrual Age of Menarche: 11 Date of menopause: 01/22/10 Review of Systems Const Details: Review of Systems Constitutional: Denies fever, chills, weight loss ENT: Denies vision changes, eye pain or eye redness, dental caries, dry mouth GI: Denies nausea, vomiting, diarrhea, abdominal pain, change in BM Pulm: Denies SOB, RIBEIRO, hemoptysis, wheezing Cards: Denies chest pain, palpitations Skin: Denies Raynaud's, rash, nail changes, photosensitivity, TRIPOLER: Denies headaches, weakness, paresthesias, recurrent falls MSK: as per HPI All other systems reviewed and are unremarkable except noted above Physical Exam Vital Signs: Last Vital Signs Pulse 61 02/13/25 15:17 Resp 16 02/13/25 15:17 BP 142/84 H 02/13/25 15:17 Pulse Ox 98 02/13/25 15:17 Oxygen Delivery Method Room Air 02/13/25 15:17 BMI result Body Mass Index 40.3 Vital signs reviewed Physical Examination CONSTITUITIONAL Patient alert and cooperative. Well appearing and in no apparent painful distress HEENT Conjunctiva and sclera clear. ?Pupils equal round and reactive to light. ?No lymphadenopathy. ? CHEST/RESPIRATORY SYSTEM Normal respiratory effort and able to speak in complete sentences. ?Clear to auscultation bilaterally. ?No crackles, rales, rhonchi, wheezes heard. CARDIAC SYSTEM Regular rate and rhythm. ?S1 and S2 heard no murmurs. ?Radial pulses intact bilaterally MSK Hands: ?Able to make a fist. Has swan neck - right 2nd and 3rd digit, left 5th and 2nd digit and boutonnieres deformities - right 4th digit. TTP of the PIP of the 4th right digit Wrists: ?fixed right wrist deformity. no TTP. Full ROM of the left wrist. No synovitis Elbows: Full range of motion without pain. No tenderness, weakness, swelling, increased warmth or erythema. Shoulders: Full range of active range of motion bilaterally. No tenderness, weakness, swelling, increased warmth or erythema. Knees: ?Full range of motion. ?No tenderness, swelling, increased warmth or erythema.?Crepitations Ankles: Full range of motion. ?No tenderness, swelling, increased warmth or erythema.?pitting edema bilaterally Feet: ?Negative squeeze test. ?No tenderness to palpation or swelling of the MTPs. Bunion on the right 5th MTP Tender points:?TTP of the bilateral trapezius R>L SKIN Skin intact without rashes. Results Reviewed Results Reviewed: Laboratory Tests 10/25/24 02/09/25 12:41 18:08 WBC 6.9 RBC 4.12 L Hgb 13.1 Hct 37.4 Plt Count 160 ESR 29 H Sodium 142 Potassium 4.3 Chloride 107 Carbon Dioxide 29 BUN 14 Creatinine 0.69 Total Bilirubin 0.5 AST 25 ALT 24 Alkaline Phosphatase 88 C-Reactive Protein 1.14 H Immunology labs 08/01/19 06/02/24 12:00 13:55 Rheumatoid Factor 604.5 H Cycl Citrul Peptide IgG >250 H HARSHA Screen POSITIVE A HARSHA Titer 1:160 H Infectious serologies 10/25/24 12:41 Hepatitis A IgM Ab Nonreactive Hep Bs Antigen Negative Hep Bs Antibody NONREACTIVE Hep B Core Total Ab Nonreactive Hepatitis C Ab (EIA) Nonreactive TB Test (T-Spot) Com Negative Assessment & Plan Assessment & Plan (1) Seropositive rheumatoid arthritis: Comment: ++RF+++CCP deforming dx in her 40s Humira:08/29 - 03/30 -active disease on exam Enbrel:04/29-08/30 - active disease on exam Xeljanz:08/30-12/29- active disease on exam Kevzara: 01/2021- stopped due to rash Orencia: 01/2021 - present effective MTX in the past - transaminitis Code(s): M05.9 - Rheumatoid arthritis with rheumatoid factor, unspecified Category: Medical Plan: #Seropositive RA Patient is a 65-year-old female with seropositive rheumatoid arthritis here today for follow up. Low disease activity with 1 tender joint (RIght 4th PIP). Continue abatacept. Back and neck pain from her degenerative disease. Failed steroid injections with pain management. Refer to Physical therapy Plan - Orencia 125mg SC weekly - PT referral for cervical and lumbar degenerative disease - RTC 4 months - Labs before visit: CBC, CMP, ESR, CRP (2) On abatacept therapy: Code(s): Z79.899 - Other residential (current) drug therapy Plan: #Long-term Use of Abatacept Discussed with the patient the benefits and risks of Abatacept for the management of the rheumatic condition Benefits include reduce pain, maintenance of remission and reduction of flares as well as ?progression of the disease Risks include injection sites/infusion reactions, serious infections (such as bacterial infections, opportunistic infections), malignancy Recommended rotating injection sites, and holding medication during and for up to 1 week after resolution of a febrile illness or open skin wound Plan I spent 36 minutes reviewing the record and labs, taking a history, examining the patient, discussing the treatment plan, ordering diagnostic work up and documenting in the medical record Orders: Orders Comprehensive Met. Panel 4 Months M05.9 - Rheumatoid arthritis with rheumatoid factor, unspecified Erythrocyte Sedimentation Rate 4 Months M05.9 - Rheumatoid arthritis with rheumatoid factor, unspecified Complete Blood Count Auto Diff 4 Months M05.9 - Rheumatoid arthritis with rheumatoid factor, unspecified C Reactive Protein 4 Months M05.9 - Rheumatoid arthritis with rheumatoid factor, unspecified PT Evaluation and Treatment Today M47.816 - Spondylosis without myelopathy or radiculopathy, lumbar region, M50.13 - Cervical disc disorder with radiculopathy, cervicothoracic region Coding Level of Care Code Est Pt Level 4 (89891) Complex EM visit Add On G2211 Diagnoses Seropositive rheumatoid arthritis M05.9 On abatacept therapy Z79.899
[2025-02-13 15:17] VITALS: BP 142/84; PULSE 61; RESP 16; O2SAT 98; BMI 40.3
--- OUTSIDE RECORDS SUMMARY | 2025-02-13 16:12 | XMS_ITS ---
Author Organization [facility] Address [facility] [place] [address] Care Team Providers Care Proposal Manager Name Role Phone NORTH MOYER BOOEnmanuel Primary Care Provide r [phone] SE, CSI BQTAS SE Unavailable [phone] PACO DE LA VEGA Unavailable [phone] Allergies Allergen (clinical drug ingredient) Drug/Non Drug Allergy documented on EMR Reaction Allergy Type Onset Date Status Flexeril dizziness Drug Allergy Active Norflex dizziness Drug Allergy Active Results Component Value Reference Range Notes CHEST-AP ONLY *1 VIEW Reviewed date:01/01/2025 08:48:19 AM Interpretation: Performing Lab: Notes/Report: See Below For Report Chest PA: [id number].Report Text See Below For Report COVID-19 ANTIGEN Reviewed date:12/28/2024 02:51:15 PM Interpretation: [...] onset beyond seven days, LICENSE.: [id number] CLIA: [id number] DIRECTOR: JAIME SARAVIA Num: [id number] bacterial infections. The presence of mupirocin may interfere with the COVID-19 Ag test and may cause false negative results. -- COVID-19 Ag Test has not been FDA cleared or approved; but has been authorized by FDA under EUA for use by authorized laboratories. For in vitros Diagnostic Use Only. 1 KOV Exp: 01/08/2025 [place] Paid 5 Cents [address] Pat. No.: [id number] [facility] [place] Col. Tabitha. Med. P.R. ORDER [id number] PERFORMED AT: COVID-19 Ag NEGATIVE NEGATIVE METHOD: STATUS COVID-19/FLU A&B INFLUENZA AG A & B Reviewed date:12/28/2024 02:51:15 PM Interpretation: Performing Lab: Notes/Report: A negative test result may occur if the level of antigen in a sample is Col. Tabitha. Med. P.R. ORDER [id number] PERFORMED AT: below the detection limit of the test. Pat. No.: [id number] [facility] Test results must be evaluated in conjunction with other clinical data. Paid 5 Cents CAL[address]Enmanuel [address] Negative test results do not rule out other non-influenza viral infections Exp: 01/08/2025 [place] Positive test results do not identify specific influenza A virus subtypes Num: [id number] Individuals who recieved nasally influenza A vaccine may have positive DIRECTOR: JAIME SARAVIA test results for up to three days after vaccination. LICENSE.: [id number] CLIA: [id number] INFLUENZA A ANTIGEN NEGATIVE NEGATIVE INFLUENZA B ANTIGEN NEGATIVE NEGATIVE METHOD: STATUS COVID-19/FLU A&B CBC + DIFF Reviewed date:12/28/2024 02:51:15 PM Interpretation: Performing Lab: Notes/Report: CBC Col. Tabitha. Med. P.R. ORDER [id number] PERFORMED AT: Pat. No.: [id number] [facility] [place] Paid 5 Cents [address] Exp: 01/08/2025 [place] [id number] Num: [id number] DIRECTOR: JAIME SARAVIA LICENSE.: [id number] CLIA: [id number] WHITE BLOOD COUNT 7.0 4.8-10.8 X10 RED [...] BY: DxH 560 RBC MORPHOLOGY 1 MAYANK REASON FOR VISIT Paciente refiere estoypresentando tos frecuente y de tanto toser me duele aarea de espalda lado derecho desde hacen varios alicea me he dado terapias tennille no he LOIS ortiz RN, BSN Lic. [id number],TACOMA 12/28/2024 12:27:51 PM > Medications Medication SIG (Take, Route, Frequency, Duration) Notes Start Date End Date Status Oseltamivir Phosphate 75 MG 1 capsule Orally Twice a day for 5 days 09/29/2024 Unknown Loratadine 10 MG 1 tablet Orally Once a day 09/29/2024 Unknown Tussin DM 100-10 MG/5ML 10 mL as needed Orally Every 6 hours 09/29/2024 Unknown Iqvwadvp-Otkstbfem-CU 1 % 4 drops into a ffected [...] Problem Status W/U Status Risk Notes Problem Exacerbation of asthma ([id number]) Asthma exacerbation (J45.901) Active confirmed Vital Signs Temperature 37.0 C 12/28/2024 Blood pressure systolic 155 mm Hg 12/29/19 25 Blood pressure diastolic 73 mm Hg 025 Heart Rate 81 /min 12/28/2024 Respiratory Rate 19 /min 12/28/2024 Height 61 in 12/28/2024 Weight 210 lbs 12/28/2024 BMI 39.67 kg/m2 12/28/2024 Oximetry 98 % 12/28/2024 Height-cm 154.94 cm 12/28/2024 Weight-kg 95.25 kg 12/28/2024 CÉSAR BARBA. WEB OPERATIONS ADMINISTRATOR Lic. [id number], GENE 12/28/2024 02:19:43 PM >Paciente no refiere dolor al momento de renato. Encounters Encounter Location Date Provider Diagnosis [facility] [place] [address] [place], [place] [id number] 12/28/2024 PACO HAWLEY Cough R05.9 ; Low back pain M54.50 and Asthma exacerbation J45.901 Assessments Encounter Date Diagnosis (ICD Code) Assessment Notes Treatment Notes Treatment Clinical Notes Section Notes 12/28/2024 Cough (ICD-10 - R05.9) 1) TUSSIN 10 ML PO 2) CDMLSNI28 MG IV 3) SOLUMEDROL 125 M GIV 4) ALBUTEROL 0.083 + ATROVENT 0.02 BY PN ONCE PACO DE LA VEGA 12/28/2024 12:50:51 PM > CÉSAR BARBA. WEB OPERATIONS ADMINISTRATOR Lic. [id number], GENE 12/28/2024 12:57:44 PM > [facility]den tom[facility]. CÉSAR BARBA. WEB OPERATIONS ADMINISTRATOR Lic. [id number], GENE 12/28/2024 12:57:44 PM > CÉSAR BARBA. WEB OPERATIONS ADMINISTRATOR Lic. [id number], GENE 12/28/2024 01:10:58 PM > Se recibe [...] orienta a notificar cambios, refiere entender. Dr. Brenda chung terapia respiratoria Albuterol 0.083% + Atrovent 0.02 10/11. CÉSAR BARBA. WEB OPERATIONS ADMINISTRATOR Lic. [id number], GENE 12/28/2024 01:10:58 PM > CÉSAR BARBA. CÉSAR BARBA. WEB OPERATIONS ADMINISTRATOR Lic. [id number], GENE 12/28/2024 02:10:54 PM > Paciente es re evaluada por Dr. Alves y es cortez de renato en condicion [...] 0 al momento del renato. CÉSAR BARBA. WEB OPERATIONS ADMINISTRATOR Lic. [id number], GENE 12/28/2024 02:10:55 PM > 12/28/2024 Low back pain (ICD-10 - M54.50) 12/28/2024 Asthma exacerbation (ICD-10 - J45.901) Plan Of Treatment Treatment Notes Assessment Notes Cough 1) TUSSIN 10 ML PO 2) CMQMERL39 MG IV 3) SOLUMEDROL 125 M GIV 4) ALBUTEROL 0.083 + ATROVENT 0.02 BY PN ONCE PACO DE LA VEGA A 12/28/2024 12:50:51 PM > CÉSAR OSBORNE RN BSN Lic. [id number], GENE 12/28/2024 12:57:44 PM > Orden tomada. CÉSAR BARBA. WEB OPERATIONS ADMINISTRATOR Lic. [id number], GENE 12/28/2024 12:57:44 PM > CÉSAR OSBORNE RN BSN Lic. [id number], GENE 12/28/2024 01:10:58 PM > Se recibe [...] orienta a notificar cambios, refiere entender. Dr. Alves coloca terapia respiratoria Albuterol 0.083% + Atrovent 0.02 10/11. CÉSAR BARBA. WEB OPERATIONS ADMINISTRATOR Lic. [id number], GENE 12/28/2024 01:10:58 PM > CÉSAR BARBA. CÉSAR BARBA. WEB OPERATIONS ADMINISTRATOR Lic. [id number], GENE 12/28/2024 02:10:54 PM > Paciente es re evaluada por Dr. Alves y es cortez de renato en condicion [...] 0 al momento del renato. CÉSAR BARBA. WEB OPERATIONS ADMINISTRATOR Lic. [id number], GENE 12/28/2024 02:10:55 PM > Progress Notes * ANOOP DAVALOS LauraDOB: (64 yo F)Acc No.[id number]:12/28/2024 Patient:?Shania HOWARD Provider:?PACO HAWLEY MD :1960???Age:64 Y???Sex:Female D ate:12/28/2024 Address:[address] [place] [address], [id number] Pcp:ASAD SANZ NO Check In:12:29 PM BOTCheck O ut:02:19 PM BOT Subjective: * Chief Complaints: * ???1. Paciente refiere estoy presentando tos frecuente y de tanto toser me duele aarea de espalda lado derecho desde hacen varios alicea me he dado terapias tennille no he angel . 2. LOIS DELUNA RN, BSN Lic. [id number], DEVEN 12/28/2024 12:27:51 PM >. * HPI: ???Depression Screening:?PHQ-2 (2015 Edition)?Little interest or pleasure in doing things??Not at all,?Feeling down, depressed, or hopeless??Not at all,?Total Score?0.?MEDICO:?A 64 Y/O F COMES TO ER DUE TO FATIGUE SINCE 2 WKS AGO. ALSO REFERS BACK ACHE SINCE 2 WKS AGO. ALLERGY TO NORFLEX AND FLEXERIL. PMH: RA, ASTHMA AND HTN. PACO DE LA VEGA 12/28/2024 12:48:06 PM >. * ROS:?ER:?Sistema Cardiorespiratorio?Alteracion en el sistema respiratorio relacionado a deterioro de [place] entorno manifestado por tos.?Modo de llegada?Modo de llegada, caminando, vino acompanado MADRE?.?Estado emocional?Se observa paciente, calmado.?Estado mental?alerta, orientado.? * Medical History:?ARTRITIS RE UMATOIDEA, DIABETICA, ASMA, RENATO PRESION. * Surgical History:?cholecyste ctomy . * Hospitalization/Major Diagno stic Procedure:?Denies Past Hospitalization. * Social History:?SIM History:?SIM Social History?Funtional Status?As Follows,?Se bana sin asistencia?Yes,?Se viste sin asistencia?Yes,?Camina sin asistencia?Yes,?Padece de incontinencia?No,?Paciente orientado en?Yes,?Se siente edmundo en kel[place] se realaciona con las personas a diario?Si,?Drug use?No,?Sexual Orientation?Straight (not lesbian or blackburn),?Gender Identity?Female,?Household?As follows,?Lali de dependientes?1,?Cuantos viven en la casa??1,?..Ultimo nivel escolar?12,?..Vivienda?con radha,?..Sospecha de maltrato?No,?..Viaje reciente fuera de MS <2 meses?No,?Transfusion/inmunisaciones?Siguiente,?..Transfusiones de maura?No,?..Reaccion a transfusion?No,?..Inmunizacion?Si,?..Inmunizacion Tetano Si,?Nececidades para comunicacion o acomodo?Ninguna,?Paciente o familiar comprende requeridos e instrucciones de [place] doctor??Si,?Paciente expresa chrissie para el cumplimiento de [place] tratamiento?No.?Myra de Emergencia:?Historial Social?Vivienda?Con radha,?Sospecha de maltrato, violencia, u abuso sexual??No,?Viaje?No viajo fuera de P.R.,?Inmunizacion al norah?Si,?Inmunizacion contra el tetano?Si,?Transfuciones componentes sanguineos?No,?Declina ser transfundido?Si,?Modo de llegada?Ambulando,?Acompanado pro? Hijo.?COVID-19:?Cuestionario Riesgo COVID-19?Fecha?12/28/2024,?Presenta algun sintoma:?Tos,?Se simmons realizado recientemente la prueba rapida o molecular para el COVID 19?No,?Conoce a alguien que haya sido positivo al COVID-19?No,?Simmons participado de eventos publicos, sociales o familiares en los ultimos 14 alicea?No,?Simmons viajado fuera de MS o simmons estado en contacto con alguien que haya estado fuera de MS en los pasados 14 alicea?No,?Se simmons vacunado contra el COVID-19?Refuerzo.? * Medications:?Unknown Lisinop ril-hydroCHLOROthiazide 20-25 MG Tablet 1 tablet Orally Once [...] pain Orally every 12 hrs , Unknown Dnzihdac-Rqjvbvmvh-PN 1 % Solution 4 drops into affected ear RIGHT EAR Otic Three times a day , Medication List reviewed and reconciled with the patient * Allergies:?Norflex: dizzines s - Allergy, Flexeril: dizziness - Allergy. Objective: * Vitals: Ht 61in?? 12/28/2024 12:30:31 PM BOT?? Wt* 210 lbs?? 12/28/2024 12:30:31 PM BOT?? ELB A?LOIS DELUNA RN, BSN Lic. [id number] BMI* 39.67Index?? 12/28/2024 12:30:31 PM BOT?? ELB A?LOIS DELUNA RN, BSN Lic. [id number] Pain scale* 51-10?? 12/28/2024 12:30:31 PM BOT?? ELB A?LOIS DELUNA RN, BSN Lic. [id number] BP* 155/73mm Hg?? 12/28/2024 02:19:24 PM BOT?? SOL S?CÉSAR OSBORNE RN BSN Lic. [id number] 152/79 mm Hg?? 12/28/2024 12:35:00 PM BOT?? ELB A?LOIS DELUNA RN, BSN Lic. [id number] HR* 81/min?? 12/28/2024 02:19:24 PM BOT?? SOL S?CÉSAR OSBORNE RN BSN Lic. [id number] 79 /min?? 12/28/2024 12:35:00 PM BOT?? ELB A?LOIS DELUNA RN, BSN Lic. [id number] RR* 19/min?? 12/28/2024 02:19:24 PM BOT?? SOL S?CÉSAR OSBORNE RN BSN Lic. [id number] 23 /min?? 12/28/2024 12:35:00 PM BOT?? ELB A?LOIS DELUNA RN, BSN Lic. [id number] Temp* 37.0C?? 12/28/2024 02:19:24 PM BOT?? SOL S?CÉSAR OSBORNE RN BSN Lic. 27701 37.0 C?? 12/28/2024 12:35:00 PM BOT?? ELB A?LOIS DELUNA RN, BSN Lic. [id number] Oxygen sat %* 98%?? 12/28/2024 02:19:24 PM BOT?? SOL S?CÉSAR OSBORNE RN BSN Lic. [id number] 97 %?? 12/28/2024 12:35:00 PM BOT?? ELB A?LOIS DELUNA RN, BSN Lic. 16655 LMP* post?? 12/28/2024 12:30:31 PM BOT?? ELB A?LOIS DELUNA RN, BSN Lic. [id number] Glucose:* 153?? 12/28/2024 12:35:00 PM BOT?? ELB A?LOIS DELUNA RN, BSN Lic. 78288 Ht-cm* 154.94 cm?? 12/28/2024 12:30:31 PM BOT?? ELB A?LOIS DELUNA RN, BSN Lic. 70640 Wt-kg* 95.25 kg?? 12/28/2024 12:30:31 PM BOT?? ELB A?LOIS DELUNA RN, BSN Lic. [id number] CÉSAR OSBORNE RN BSN Lic. [id number], GENE 12/28/2024 02:19:43 PM >Paciente no refiere dolor al momento de renato. * Physical Examination:?HEENT: PERRLA, MOIST ORAL MUCOSA NECK: SUPPLE HEART: RRR LUNGS: CLEAR TO AUSCULTATION, ACTIVE COUGHING ABDOMEN: + BS, SOFT/DEPRESIBLE, NO GUARDING, NO REBOUND, NO MASSES NEURO: ALERT, ACTIVE, ORIENTED X 3, NO ACUTE NEUROLOGIC DEFICIT MUSC: PARAVERTEBRAL LUMBAR TENDERNSS PACO DE LA VEGA A 12/28/2024 12:49:25 PM > . Assessment: * Assessment: 1.?Cough - R05.9 (Primary)?? ?2.?Low back pain - M54.50???3.?Asthma exacerbation - J45.901??? Plan: * Treatment: ?LAB: INFLUENZA AG A & B (Collection Date & Time - 12/28/2024 12:51 PM)* CÉSAR OSBORNE RN BSN Lic. [id number], GENE 12/28/2024 12:59:31 PM > ?LAB: COVID-19 ANTIGEN (Collection Date & Time - 12/28/2024 12:51 PM)* CÉSAR OSBORNE RN BSN Lic. [id number], GENE 12/28/2024 12:59:28 PM > ?Imaging: CHEST-AP ONLY *1 VIEW (Performed Date - 12/28/2024)* LANDON SAM RN, BSN Lic. [id number], KEN 12/28/2024 12:56:19 PM > Se escolta paciente a ubaldo-x kyle orden medica. Notes: 1) TUSSIN 10 ML PO 2) PPOBVIR72 MG IV 3) SOLUMEDROL 125 M GIV 4) ALBUTEROL 0.083 + ATROVENT 0.02 BY PN ONCE BRENDA HAWLEY, PACO A 12/28/2024 12:50:51 PM > CÉSAR BARBA. WEB OPERATIONS ADMINISTRATOR Lic. [id number], GENE 12/28/2024 12:57:44 PM > Orden tomada. CÉSAR BARBA. WEB OPERATIONS ADMINISTRATOR Lic. [id number], GENE 12/28/2024 12:57:44 PM > CÉSAR BARBA. WEB OPERATIONS ADMINISTRATOR Lic. [id number], GENE 12/28/2024 01:10:58 PM > Se recibe [...] orienta a notificar cambios, refiere entender. Dr. Alves coloca terapia respiratoria Albuterol 0.083% + Atrovent 0.02 10/11. CÉSAR BARBA. WEB OPERATIONS ADMINISTRATOR Lic. [id number], GENE 12/28/2024 01:10:58 PM > CÉSAR BARBA. CÉSAR BARBA. WEB OPERATIONS ADMINISTRATOR Lic. [id number], GENE 12/28/2024 02:10:54 PM > Paciente es re evaluada por Dr. Alves y es cortez de renato en condicion [...] 0 al momento del renato. CÉSAR BARBA. WEB OPERATIONS ADMINISTRATOR Lic. [id number], GENE 12/28/2024 02:10:55 PM >?? * Procedure Codes:?05040 COMPL ETE CBC W/AUTO DIFF WBC, 63353 EMERGENCY DEPT VISIT, [address] [place], [address] INFLUENZA ASSAY W/OPTIC A Y B, 35792 X-RAY EXAM CHEST 1 VIEW, 66651 EMERGENCY DEPT VISIT MOD MDM * Preventive Medicine:? ??Myra de Emergencia:?Educaciones myra de emergencia?Se educo al paciente y/o familiar sobre?Medidas de seguridad en myra de emergencias, Prevencion de caidas, Tratamineto ofrecido, Manejo de condicion.? ??UDS Reporting:?Adult Weight Counseling?Physical activity Recomended?Yes.?INSTRUCCIONES GENERALES DE RENATO Vaya con [place] medico [...] QID X 7D PACO DE LA VEGA A 12/28/2024 02:04:47 PM > . * Images: Billing Information: * Visit Code:? * Procedure Codes:? 60215 COMPLETE CBC W/AUTO DIFF WBC. 21981 EMERGENCY DEPT VISIT. [address] [place]. [address] INFLUENZA ASSAY W/OPTIC A Y B. 89093 X-RAY EXAM CHEST 1 VIEW. 86459 EMERGENCY DEPT VISIT MOD MDM. * Sign off status: Completed true * Provider:?PACO HAWLEY MD Date :?12/28/2024 Generated for Printi ng/Fabien/eTransmitting on:?02/13/2025 04:10 PM BOT History and Physical Notes * HPI (History of Present Illness) Category Sub-Category Detail Notes Category Not es MEDICO A 64 Y/O F COMES TO ER DUE TO FATIGUE SINCE 2 WKS AGO. ALSO REFERS BACK ACHE SINCE 2 WKS AGO. ALLERGY TO NORFLEX AND FLEXERIL. PMH: RA, ASTHMA AND HTN. PACO DE LA VEGA A 12/28/2024 12:48:06 PM > Depression Screening PHQ-2 [...]
--- OUTSIDE RECORDS SUMMARY | 2025-02-13 16:12 | XMS_ITS ---
Author Organization [facility] Address [facility] [place] [address] Care Team Providers Care Flavorer Name Role Phone NADINE LERNERROBBIEEnmanuel Primary Care Provide r [phone] SE, CSI BQTAS SE Unavailable [phone] MEZA FRANCO, MANNY Unavailable Allergies Allergen (clinical drug ingredient) Drug/Non Drug Allergy documented on EMR Reaction Allergy Type Onset Date Status Flexeril dizziness Drug Allergy Active Norflex dizziness Drug Allergy Active Results Component Value Reference Range Notes CHEST-2 VIEWS Reviewed date:09/29/2024 02:40:29 PM Interpretation: Performing Lab: Notes/Report: See Below For Report [id number].Report Text See Below For Report COVID-19 ANTIGEN Reviewed date:09/29/2024 02:13:34 PM Interpretation: Performing Lab: Notes/Report: Col. Tabitha. Med. P.R. ORDER [id number] PERFORMED AT: -- Positive results indicate the presence of COVID-19 antigen, but clinical Pat. No.: [id number] [facility] de [facility] en [place] correlation with patient history and other diagnostic information is Paid 5 Cents [address] necessary to determine infection status. Positive results do not rule out Exp: 12/08/2024 [place] [address] bacterial infection or co-infection with other viruses and do not Num: [id number] differentiate between SARS-CoV and SARS-CoV-2. DIRECTOR: JAIME SARAVIA -- Negative results, from patients with symptom onset beyond seven days, LICENSE.: 1369 CLIA: [id number] should be treated as presumptive and confirmation [...] clinical data. Col. Tabitha. Med. P.R. ORDER [id number] PERFORMED AT: Negative test results do not rule out other non-influenza viral infections Pat. No.: [id number] [facility] [place] Positive test results do not identify specific influenza A virus subtypes Paid 5 Cents [address] Individuals who recieved nasally influenza A vaccine may have positive Exp: 12/08/2024 [place] [address] test results for up to three days after vaccination. Num: [id number] DIRECTOR: JAIME SARAVIA LICENSE.: [id number] CLIA: [id number] INFLUENZA A ANTIGEN POSITIVE NEGATIVE INFLUENZA B ANTIGEN NEGATIVE NEGATIVE METHOD: STATUS COVID-19/FLU A&B REASON FOR VISIT TAMARA NOBLES RN. BSN Lic. [id number], SHARDA Das 09/29/2024 11:22:32 AM > PACIENTE ACUDE A EVALUACION, REFIERE TOS, DOLOR DE CUERPO Y FIEBRE.CATEGORIA TEREZA, TAMARA NOBLES RN. BSN Lic. [id number], MIGUEL 09/29/2024 11:23:59 AM > Medications Medication [...] a day for 30 day(s) 07/21/2018 Active Jgivbnic-Rzotpktzu-ZQ 1 % 4 drops into a ffected [...] Notes Tobacco use: Nonsmoker Section Notes: TAMARA NOBLES RN. BSN Lic. [id number], SHARDA M 09/29/2024 11:15:44 AM > Vital Signs Temperature 36.6 C 09/29/2024 Blood pressure systolic 139 mm Hg 09/29/20 24 Blood pressure diastolic 80 mm Hg 024 Heart Rate 90 /min 09/29/2024 Respiratory Rate 19 /min 09/29/2024 Height 61 in 09/29/2024 Weight 211 lbs 09/29/2024 BMI 39.86 kg/m2 09/29/2024 Oximetry 99 % 09/29/2024 Height-cm 154.94 cm 09/29/2024 Weight-kg 95.71 kg 09/29/2024 DYLAN ALVAREZ RN, BSN LIC. [id number], NATHANIEL M 09/29/2024 02:45:29 PM > Se reese Signos vitales para proceso de renato. Encounters Encounter Location Date Provider Diagnosis [facility] [place] [address] [place], [place] [id number] 09/29/2024 MANNY MEZA FRANCO URTI (acute upper [...] 09/29/2024 Other DYLAN ALVAREZ RN, BSN LIC. [id number], NATHANIEL M 09/29/2024 01:25:28 PM > Se recibe paciente [...] refiere entender. DYLAN ALVAREZ RN, BSN LIC. [id number], [facility] 09/29/2024 01:25:29 PM > MIKIE SAM RN BSN, Lic. [id number] 09/29/2024 02:00:01 PM > Se recibe llamada del laboratorio de la Lcda. Santi Barillas reportando influenza A positivo; se le notifica al Dr. Meza. MIKIE SAM RN BSN, Lic. [id number], [place] 09/29/2024 02:00:02 PM > DYLAN ALVAREZ RN, BSN LIC. [id number], [facility] 09/29/2024 02:44:16 PM > Paciente es [...] al momento del renato. DYLAN ALVAREZ RN, BACILION LIC. 61321, [facility] 09/29/2024 02:44:27 PM > Plan Of [...] > Other DYLAN ALVAREZ RN, BSN LIC. [id number], [facility] 09/29/2024 01:25:28 PM > Se recibe [...] refiere entender. DYLAN ALVAREZ RN, BSN LIC. 93704, [facility] 09/29/2024 01:25:29 PM > MIKIE ASM RN BSN, Lic. [id number] 09/29/2024 02:00:01 PM > Se recibe llamada del laboratorio de la Lcda. Santi Barillas reportando influenza A positivo; se le notifica al Dr. Meza. MIKIE SAM RN BSN, Lic. [id number] 09/29/2024 02:00:02 PM > DYLAN ALVAREZ RN, BSN LIC. [id number] [facility] 09/29/2024 02:44:16 PM > Paciente es [...] del renato. DYLAN ALVAREZ RN, BSN LIC. [id number], NATHANIEL Das 09/29/2024 02:44:27 PM > Progress Notes * Laura HOWARDDOB: (64 yo F)Acc No.[id number]:09/29/2024 Patient:?Shania HOWARD Provider:?Manny Franco M.D. :1960???Age:64 Y???Sex:Female D ate:09/29/2024 Address:[address] [place] [id number] Pcp:[facility] [place] Check In:11:24 AM BOTCheck O ut:02:47 PM BOT Subjective: * Chief Complaints: * ???1. TAMARA NOBLES RN. BSN Lic. [id number], SHARDA 09/29/2024 11:22:32 AM > PACIENTE ACUDE A EVALUACION, REFIERE TOS, DOLOR DE CUERPO Y FIEBRE.CATEGORIA TEREZA. 2. TAMARA NOBLES RN. BSN Lic. [id number], SHARDA 09/29/2024 11:23:59 AM >. * HPI: ???Depression [...] lugar y persona.?TAMARA NOBLES RN. BSN Lic. [id number], SHARDA Das 09/29/2024 11:14:47 AM >. * [...] ..Vivienda?con radha,?..Sospecha de maltrato?No,?..Viaje reciente fuera de [place] <2 meses?No,?Transfusion/inmunisaciones?Siguiente,?..Transfusiones de maura?No,?..Reaccion a transfusion?No,?..Inmunizacion?Si,?..Inmunizacion Tetano?Si,?Nececidades [...] los ultimos 14 alicea?Yes,?Cuando?,?Simmons viajado fuera de [place] o simmons estado en contacto con alguien que haya estado fuera de [place] en los pasados 14 alicea?No,?Se simmons vacunado contra el COVID-19?Refuerzo.?TAMARA NOBLES RN. BSN Lic. [id number], SHARDA M 09/29/2024 11:15:44 AM >. * [...] Orally TWO times a day , Not-Taking/PRN Qnhhkrmv-Ioxpzlknz-KO 1 % Solution 4 drops into affected ear RIGHT EAR Otic Three times a day , Medication List reviewed and reconciled with the patient * Allergies:?Norflex: dizzines s - Allergy, Flexeril: dizziness - Allergy. Objective: * Vitals: Ht 61in?? 09/29/2024 11:24:28 AM BOT?? Wt* 211 lbs?? 09/29/2024 11:24:28 AM BOT?? YES ENIA?TAMARA FELTONRIO RN. BSN Lic. 52925 BMI* 39.86Index?? 09/29/2024 11:24:28 AM BOT?? YES ENIA?TAMARA FELTONRIO RN. BSN Lic. 67198 Pain scale* 51-10?? 09/29/2024 11:24:28 AM BOT?? YES ENIA?TAMARA FELTONRIO RN. BSN Lic. 61083 BP* 139/80mm Hg?? 09/29/2024 02:45:32 PM BOT?? GEN ESIS?DYLAN ALVAREZ RN, BSN LIC. 92167 142/70 mm Hg?? 09/29/2024 11:28:47 AM BOT?? YES ENIA?TAMARA FELTONRIO RN. BSN Lic. 91277 HR* 90/min?? 09/29/2024 02:45:32 PM BOT?? GEN ESIS?DYLAN ALVAREZ RN, BSN LIC. 29918 108 /min?? 09/29/2024 11:26:26 AM BOT?? YES ENIA?TAMARA MALLORIE RN. BSN Lic. 72746 RR* 19/min?? 09/29/2024 02:45:32 PM BOT?? GEN ESIS?DYLAN ALVAREZ RN, BSN LIC. 51217 23 /min?? 09/29/2024 11:26:26 AM BOT?? YES ENIA?MCDONALD MALLORIE RN. BSN Lic. 41088 Temp* 36.6C?? 09/29/2024 02:45:32 PM BOT?? GEN ESIS?DYLAN ALVAREZ RN, BSN LIC. 20180 37.5 C?? 09/29/2024 11:26:26 AM BOT?? YES ENIA?MCDONALD MALLORIE RN. BSN Lic. 16739 Oxygen sat %* 99%?? 09/29/2024 02:45:32 PM BOT?? GEN ESIS?DYLAN ALVAREZ RN, BSN LIC. 37531 96 %?? 09/29/2024 11:26:26 AM BOT?? YES ENIA?TAMARA NOBLES RN. BSN Lic. 72214 LMP* POSTMENOPAUSAL?? 09/29/2024 11:26:55 AM BOT?? YE SANDY?TAMARA FELTONBABITA RUBALCAVA. BSN Lic. 77772 Glucose:* 230MG/DL?? 09/29/2024 11:28:47 AM BOT?? YES ENIA?TAMARA MALLORIE RN. BSN Lic. 26976 Ht-cm* 154.94 cm?? 09/29/2024 11:24:28 AM BOT?? YES ENIA?TAMARA NOBLES RN. BSN Lic. 95340 Wt-kg* 95.71 kg?? 09/29/2024 11:24:28 AM BOT?? YES ENIA?TAMARA NOBLES RN. BSN Lic. 46110 DYLAN ALVAREZ RN, BSN LIC. 43325, [facility] 09/29/2024 02:45:29 PM > Se reese [...] or limitations Skin: No rash nor cyanosis MEZA FRANCO, ANGEL 09/29/2024 01:26:19 PM > . Assessment: * [...] 4.?Others? Notes: DYLAN ALVAREZ RN, BSN LIC. 99723, [facility] 09/29/2024 01:25:28 PM > Se recibe [...] refiere entender. DYLAN ALVAREZ RN, BSN LIC. 17468, [facility] 09/29/2024 01:25:29 PM > MIKIE SAM RN BSN, Lic. [id number], TREASURE 09/29/2024 02:00:01 PM > Se recibe llamada del laboratorio de la Lcda. Santi Barillas reportando influenza A positivo; se le notifica al Dr. Meza. MIKIE SAM CONCRETE MIXING TRUCK DRIVER, Lic. [id number], TREASURE 09/29/2024 02:00:02 PM > DYLAN ALVAREZ RN, BSN LIC. 42826, [facility] 09/29/2024 02:44:16 PM > Paciente es [...] del renato. DYLAN ALVAREZ RN, BSN LIC. 29792, [facility] 09/29/2024 02:44:27 PM >?? * Procedure Codes:?31143 EMERG ENCY DEPT VISIT, 37682 EMERGENCY DEPT VISIT MOD MDM, 85950 X-RAY EXAM CHEST 2 VIEWS, [address] [place], [address] INFLUENZA ASSAY W/OPTIC A Y B * Preventive Medicine:? ??Myra de Emergencia:?Educaciones myra de emergencia?Se educo al paciente y/o familiar sobre?Medidas de seguridad en myra de emergencias, Prevencion de caidas, Tratamineto ofrecido, Manejo de condicion, Medicamento administrado, Procedimiento realizado SE EDUCA A PACIENTE, Medidas Antipireticas, SE EDUCA A FAMILIAR.?Disposicion?Disposicion?Cuidado en el hogar seguimiento medico primario.?Renato?Reagan?al Hogar Estable.?Transportacion?Transportado en?Otro,?Acompanado por?Familiar.? ??RN Paciente Hypertenso:?Educacion [...] Information: * Visit Code:? * Procedure Codes:? 77587 EMERGENCY DEPT VISIT. 27136 EMERGENCY DEPT VISIT MOD MDM. 02129 X-RAY EXAM CHEST 2 [place]WS. [address] [place]. [address] INFLUENZA ASSAY W/OPTIC A Y B. * Sign off status: Completed true * Provider:Samm Franco M.D. Date:?09/29/2024 Generated for Nellie newell/Fabien/eTransmitting on:?02/13/2025 04:10 PM BOT History and Physical [...]
--- OUTSIDE RECORDS SUMMARY | 2025-02-13 16:12 | XMS_ITS | Patient Health Record ---
[facility] Organization [facility] Address [facility] [address] [place] [address] Care Team Providers Care Steam Fitter Name Role Phone NADINE LERNERROBBIEEnmanuel Primary Care Provide r [phone] SE, CSI BQTAS SE Unavailable [phone] JOLYNN SMALL Unavailable [place] Unavailable Allergies Allergen (clinical drug ingredient) Drug/Non Drug Allergy documented on EMR Reaction Allergy Type Onset Date Status Flexeril dizziness Drug Allergy Active Norflex dizziness Drug Allergy Active Results Component Value Reference Range Notes INFLUENZA AG A & B Reviewed date:09/29/2024 02:13:23 PM Interpretation: Performing Lab: Notes/Report: REPORTED TO: Mikaela Poncho BUENROSTROTIZ DATE & TIME: 09/29/2024 2:00PM A negative test result may occur if the level of antigen in a sample is MT: LCDA. Santi BARILLAS READ BACK: OK below the detection limit of the test. Test results must be evaluated in conjunction with other clinical data. Col. Tabitha. Med. P.R. ORDER [id number] PERFORMED AT: Negative test results do not rule out other non-influenza viral infections Pat. No.: [id number] [facility] [place] Positive test results do not identify specific influenza A virus subtypes Paid 5 Cents [address] [facility] [address] Individuals who recieved nasally influenza A vaccine may have positive Exp: 12/08/2024 [place] [address] test results for up to three days after vaccination. Num: [id number] DIRECTOR: JAIME SARAVIA LICENSE.: 1369 CLIA: [id number] INFLUENZA A ANTIGEN POSITIVE NEGATIVE INFLUENZA B ANTIGEN NEGATIVE NEGATIVE METHOD: STATUS COVID-19/FLU A&B COVID-19 ANTIGEN Reviewed date:09/29/2024 02:13:34 PM Interpretation: Performing Lab: Notes/Report: Col. Tabitha. Med. P.R. ORDER [id number] PERFORMED AT: -- Positive results indicate the presence of COVID-19 antigen, but clinical Pat. No.: [id number] [facility] en [place] correlation with patient history and other diagnostic information is Paid 5 Cents [address] necessary to determine infection status. Positive results do not rule out Exp: 12/08/20[place] [address] bacterial infection or co-infection with other viruses and do not Num: [id number] differentiate between SARS-CoV and SARS-CoV-2. DIRECTOR: JAIME SARAVIA -- Negative results, from patients with symptom onset beyond seven days, LICENSE.: 1369 CLIA: [id number] should be treated as presumptive and confirmation [...] Performing Lab: Notes/Report: See Below For Report [id number].Report Text See Below For Report CBC + DIFF Reviewed date:12/28/2024 02:51:15 PM Interpretation: Performing Lab: Notes/Report: CBC Col. Tabitha. Med. P.R. ORDER [id number] PERFORMED AT: Pat. No.: [id number] [facility] [place] Paid 5 Cents [address] Exp: 01/08/2025 [place], [place] [address] Num: [id number] DIRECTOR: JAIME SARAVIA LICENSE.: 1362 CLIA: [id number] WHITE BLOOD COUNT 7.0 4.8-10.8 X10 RED [...] 0-0.4 x10 BA # 0.0 0-0.1 x10 RBC MORPHOLOGY 1 MAYANK BY: Dx 560 INFLUENZA AG A & B Reviewed date:12/28/2024 02:51:15 PM Interpretation: Performing Lab: Notes/Report: A negative test result may occur if the level of antigen in a sample is Col. Tabitha. Med. P.R. ORDER [id number] PERFORMED AT: below the detection limit of the test. Pat. No.: [id number] [facility] [place] Test results must be evaluated in conjunction with other clinical data. Paid 5 Cents [address] Negative test results do not rule out other non-influenza viral infections Exp: 01/08/2025 [place], [place] [address] Positive test results do not identify specific influenza A virus subtypes Num: [id number] Individuals who recieved nasally influenza A vaccine may have positive DIRECTOR: JAIME SARAVIA test results for up to three days after vaccination. LICENSE.: 1362 CLIA: [id number] INFLUENZA A ANTIGEN NEGATIVE NEGATIVE INFLUENZA B [...] onset beyond seven days, LICENSE.: 1369 CLIA: [id number] DIRECTOR: JAIME SARAVIA Num: [id number] bacterial infections. The presence of mupirocin may interfere with the COVID-19 Ag test and may cause false negative results. -- COVID-19 Ag Test has not been FDA cleared or approved; but has been authorized by FDA under EUA for use by authorized laboratories. For in vitros Diagnostic Use Only. 1 KOV Exp: 01/08/2025 [place] [address] Paid 5 Cents [address] Pat. No.: [id number] [facility] [place] Col. Tabitha. Med. P.R. ORDER [id number] PERFORMED AT: COVID-19 Ag NEGATIVE NEGATIVE METHOD: STATUS COVID-19/FLU A&B CHEST-AP ONLY *1 VIEW Reviewed date:01/01/2025 08:48:19 AM Interpretation: Performing Lab: Notes/Report: See Below For Report Chest PA: [id number].Report Text See Below For Report Reason For Referral No Information Medications Medication SIG (Take, Route, Frequency, Duration) Notes Start Date End Date Status Oseltamivir Phosphate 75 MG 1 capsule Orally Twice a day for 5 days 09/29/2024 Unknown Gabapentin 300 MG 1 capsule Orally TWO times a day for 30 day(s) 02/09/2019 Unknow n Loratadine 10 MG 1 tablet Orally Once a day 09/29/2024 Unknown Tussin DM 100-10 MG/5ML 10 mL as needed Orally Every 6 hours 09/29/2024 Unknown Tunddebv-Evdahvimx-SM 1 % 4 drops into a ffected ear RIGHT EAR Otic Three times a day for 7 days 01/12/2019 Unknown Naproxen 500 MG 1 tablet if pain Ora lly every 12 hrs 09/29/2024 Unknown metFORMIN HCl 500 MG 1 tablet with meals Orally Once a day for 30 day(s) 07/21/2018 Unknown Lisinopril-hydroCHLOROthia zide 20-25 MG 1 tablet Orally Once a day for 30 day(s) 07/21/2018 Unknown Nabumetone 750 MG 1 tablet Orally Twic [...] Once a day for 30 day(s) Unknown Immunizations Vaccine Route Administration Date Status Comme nts .Prevnar 13 Unknown 11/12/2018 Pending DTaP Unknown 07/21/2018 Pending DTaP Unknown 11/12/2018 Pending Fluarix Unknown 07/13/2013 Administered Deltoid, rig ht; Influenza (split), seasonal, intradermal, preservative free Unknown 11/12/2018 Pending Influenza (split), seasonal, intradermal, preservative free Unknown 02/09/2019 Pending Pneumococcal conjugate PCV 13 Unknown 02/09/2019 Pending Pneumococcal polysaccharide PPV23 Unknown 07/13/2013 Administered Deltoid, left; Tdap For Adolescent and Adult Use Unknown 02/09/2019 Pending Social History Tobacco Use: Social History Observation [...] Section Notes: TAMARA NOBLES RN. BSN Lic. [id number], SHARDA M 09/29/2024 11:15:44 AM > Problems Problem Type SNOMED Code ICD Code Onset Dates Problem Status W/U Status Risk Notes Problem Essential hypertension (69954388) Essential (primary) hypertension (I10) Active confirmed Essential (primary) hypertension Problem 21651706 Other chronic pain (G89.29) Active confirmed Problem Postmenopausal bleeding (72637297) Postmenopausal bleeding (N95.0) Active confirmed Problem Hyperglycemia due to type 2 diabetes mellitus (811281119618255) Controlled type 2 diabetes mellitus with hyperglycemia, without long-term current use of insulin (E11.65) Active confirmed Problem 853336286030287 Mild persistent asthma with acute exacerbation (J45.31) Active confirmed Problem 526422940 Rheumatoid arthritis involving multiple sites with positive rheumatoid factor (M05.79) Active confirmed Problem Body mass index 30.00 to 34.99 (458271836074268) Body mass index (BMI) of 33.0 to 33.9 in adult (Z68.33) Active confirmed Problem Type II diabetes mellitus without complication (799115798) Controlled diabetes mellitus (E11.9) Active confirmed Problem 104937828 Rheumatoid arthritis involving multiple sites, unspecified rheumatoid factor presence (M06.9) Active confirmed Problem Diabetes mellitus type 2 (96747127) Diabetes mellitus type 2, uncontrolled (E11.65) Active confirmed Problem Morbid obesity (615097221) Morbid obesity (E66.01) Active confirmed Problem Mild intermittent asthma (133701752) Asthma, intermittent, uncomplicated (J45.20) Active confirmed Problem Body mass index 40+ - morbidly obese (784580563) BMI 40.0-44.9, adult (Z68.41) Active confirmed Problem 8200191 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 81468, GENE 12/28/2024 02:19:43 PM >Paciente no refiere dolor al momento de renato. Temperature 37.0 C 12/28/2024 CÉSAR BARBA. SOCIAL SERVICE ASSISTANT Lic. 60283, GENE 12/28/2024 02:19:43 PM >Paciente no refiere dolor al momento de renato. Respiratory Rate 19 /min 12/28/2024 CÉSAR BARBA . SOCIAL SERVICE ASSISTANT Lic. 26020, GENE 12/28/2024 02:19:43 PM >Paciente no refiere dolor al momento de renato. Oximetry 98 % 12/28/2024 CÉSAR BARBA. SOCIAL SERVICE ASSISTANT Lic. 67993, GENE 12/28/2024 02:19:43 PM >Paciente no refiere dolor al momento de renato. Blood pressure diastolic 73 mm Hg 12/28/2024 LOP MACIEL BARBA. SOCIAL SERVICE ASSISTANT Lic. 43533, GENE 12/28/2024 02:19:43 PM >Paciente no refiere dolor al momento de renato. Height-cm 154.94 cm 12/28/2024 CÉSAR BARBA. SOCIAL SERVICE ASSISTANT Lic. 65094, GENE 12/28/2024 02:19:43 PM >Paciente no refiere dolor al momento de renato. Weight-kg 95.25 kg 12/28/2024 CÉSAR BARBA. SOCIAL SERVICE ASSISTANT Lic. 41174, GENE 12/28/2024 02:19:43 PM >Paciente no refiere dolor al momento de renato. Height 61 in 12/28/2024 CÉSAR BARBA. SOCIAL SERVICE ASSISTANT Lic. 44927, GENE 12/28/2024 02:19:43 PM >Paciente no refiere dolor al momento de renato. Blood pressure systolic 155 mm Hg 12/28/2024 EDWARD Abdifatah BARBA. SOCIAL SERVICE ASSISTANT Lic. 34245, GENE 12/28/2024 02:19:43 PM >Paciente no refiere dolor al momento de renato. Weight 210 lbs 12/28/2024 CÉSAR BARBA. SOCIAL SERVICE ASSISTANT Lic. 31331, GENE 12/28/2024 02:19:43 PM >Paciente no refiere dolor al momento de renato. BMI 39.67 kg/m2 12/28/2024 CÉSAR BARBA. SOCIAL SERVICE ASSISTANT Lic. 73031, GENE 12/28/2024 02:19:43 PM >Paciente no refiere dolor al momento de renato. Encounters Encounter Location Date Provider Diagnosis [facility] [address] [place], [place] [id number] 09/29/2024 JOLYNN MEZA FRANCO URTI (acute upper respiratory infection) J06.9 ; Influenza A J10.1 and Acute cough R05.1 [facility] [address] [place], [place] [id number] 12/28/2024 PACO GUZMÁNILA CHANDAN Cough R05.9 ; Low back pain M54.50 and Asthma exacerbation J45.901 Assessments Encounter Date Diagnosis (ICD Code) Assessment Notes Treatment Notes Treatment Clinical Notes Section Notes 12/28/2024 Cough (ICD-10 - R05.9) 1) TUSSIN 10 ML PO 2) [id number] MG IV 3) SOLUMEDROL 125 M GIV 4) ALBUTEROL 0.083 + ATROVENT 0.02 BY PN ONCE [place] A 12/28/2024 12:50:51 PM > CÉSAR BARBA. SOCIAL SERVICE ASSISTANT Lic. 07388, GENE 12/28/2024 12:57:44 PM > Orden tomada. CÉSAR BARBA. SOCIAL SERVICE ASSISTANT Lic. 66734, GENE 12/28/2024 12:57:44 PM > CÉSAR BARBA. SOCIAL SERVICE ASSISTANT Lic. 32213, GENE 12/28/2024 01:10:58 PM > Se recibe [...] 0.083% + Atrovent 0.02 10/11. CÉSAR BARBA. SOCIAL SERVICE ASSISTANT Lic. 97539, GENE 12/28/2024 01:10:58 PM > CÉSAR BARBA. CÉSAR BARBA. SOCIAL SERVICE ASSISTANT Lic. 55169, GENE 12/28/2024 02:10:54 PM > Paciente es [...] 0 al momento del renato. CÉSAR BARBA. SOCIAL SERVICE ASSISTANT Lic. 53363, GENE 12/28/2024 02:10:55 PM > 12/28/2024 Low back pain (ICD-10 - M54.50) 09/29/2024 URTI (acute upper respiratory infection) (ICD-10 - J06.9) Tx: 1) Toradol 60 mg IM x1 2) Benadryl 25 mg PO x1 3) Guaifenesin DM 10 ml PO x1 JOLYNN SMALL 09/29/2024 01:24:37 PM > 09/29/2024 Influenza A (ICD-10 - J10.1) 09/29/2024 Acute cough (ICD-10 - R05.1) 12/28/2024 Asthma exacerbation (ICD-10 - J45.901) 09/29/2024 Other DYLAN ALVAREZ RN, BSN LIC. 04142, [facility] 09/29/2024 01:25:28 PM > Se recibe paciente [...] refiere entender. DYLAN ALVAREZ RN, BSN LIC. 56773, NATHANIEL 09/29/2024 01:25:29 PM > MIKIE SAM RN BSN, Lic. 06013TREASURE 09/29/2024 02:00:01 PM > Se recibe llamada del laboratorio de la Lcda. Santi Barillas reportando influenza A positivo; se le notifica al Dr. Meza. MIKIE SAM RN BSN, Lic. 84953TREASURE 09/29/2024 02:00:02 PM > DYLAN ALVAREZ RN, BSN LIC. 23394, [facility] 09/29/2024 02:44:16 PM > Paciente es dado [...] del renato. DYLAN ALVAREZ RN, BACILION LIC. 13012, [facility] 09/29/2024 02:44:27 PM > Plan Of Treatment Pending Test Test Name Order Date DEXA 12/31/2016 Chest X-ray PA and lateral 03/11/2018 MAMMOGRAM, SCREENING 03/11/2018 FOOT LEFT LIMITED 06/01/2017 FOOT RIGHT LIMITED 06/01/2017 HAND LEFT LIMITED 06/01/2017 HAND RIGHT LIMITED 06/01/2017 LUMBAR SPINE 2 OR 3 VIEWS 01/12/2018 WRIST LEFT LIMITED 06/01/2017 WRIST RIGHT LIMITED 06/01/2017 MICROALBUMIN SPOT 06/24/2018 Insurance Providers Payer Name Payer Address Payer Phone Subscriber Number Group Number Insured Name Patient Relationship to Insured Coverage Start Date Coverage End Date [address] [phone] [id number] Laura Beckman Self - patient is the insured 4 5 Medical (General) History Medical History History ICD Code ARTRITIS REUMATOIDEA DIABETICA ASMA RENATO PRESION Surgical History Surgery Date(Month/Year) cholecystectomy
== END 2025-02-13 15:51 | disposition home or self-care (01) ==
PROVIDERS: PCP Internal Medicine; Visit Provider Student in an Organized Health Care Education/Training Program
DX: M05.79 Rheumatoid arthritis with rheumatoid factor of multiple sites without organ or systems involvement (principal); Z79.899 Other long term (current) drug therapy
CPT/HCPCS: 99214; G2211

== ENCOUNTER → 2025-02-13 15:00 | Outpatient (BNVA) | payer MEDICARE, MEDICAID, SELFPAY | PROVIDERS: PCP Internal Medicine; Visit Provider Student in an Organized Health Care Education/Training Program | DX: M05.9 Rheumatoid arthritis with rheumatoid factor, unspecified (principal); Z79.899 Other long term (current) drug therapy | CPT/HCPCS: 99212 ==

== ENCOUNTER 2025-02-14 07:28 | Outpatient (REF) | payer MEDICARE, MEDICAID, SELFPAY ==
--- NOTE | ~2025-02-14 | CT_ITS ---
CLINICAL HISTORY: R91.8 - Other nonspecific abnormal finding of lung field --- Additional Notes or Sp ecial Instructions: Pulmonary nodule right lung, [address] CHEST WITHOUT CONTRAST Comparison: None Findings: Unenhanced heart, visualized pericardium and thoracic aorta appear unremarkable. No thyromegaly or mediastinal lymphadenopathy. Few subcentimeter mediastinal lymph nodes are nonspecific. Mosaic attenuation pattern bilaterally. Scattered atelectasis and/or scarring. 5 mm noncalcified nodule in the right middle lobe. 5 mm noncalcified nodule in the left lower lobe No pulmonary mass or consolidation. No pleural effusion or pneumothorax. No adrenal mass. Probable mild hepatic steatosis. The bones are intact. Large anterior bridging osteophytes at T11-12. IMPRESSION: 1. Mosaic attenuation in the bilateral lungs is a nonspecific finding and can be seen with air trapping. 2. 5 mm right middle and left lower lobe pulmonary nodules. 3. No segmental pneumonia or significant pleural effusion. ACR Fleischner Society recommendations (MacMahon, et al. Radiology 2017; 284(1): 228-43) suggest the following: For patients with low risk of lung cancer, no need for further follow-up. For patients with high risk of lung cancer, generally no need for follow-up. An optional follow-up chest CT at 12 months could be performed if there is high index of suspicion. If unchanged, no further follow-up is necessary. This document has been electronically signed by: Jackie Ireland DO on 02/14/2025 16:09:23
== END 2025-02-14 07:29 | disposition home or self-care (01) ==
LOC: HO.CT 07:28
PROVIDERS: PCP Internal Medicine; Visit Provider Internal Medicine
DX: R91.8 Other nonspecific abnormal finding of lung field (principal)
CPT/HCPCS: 71250

== ENCOUNTER → 2025-02-14 07:31 | Outpatient (BNV) | payer MEDICARE, MEDICAID, SELFPAY | PROVIDERS: PCP Internal Medicine; Visit Provider Radiology Diagnostic Radiology | DX: R91.8 Other nonspecific abnormal finding of lung field (principal) | CPT/HCPCS: 71250 ==

== ENCOUNTER 2025-02-27 09:19 | Emergency (ER) | payer MEDICARE, MEDICAID, SELFPAY ==
--- NOTE | ~2025-02-27 | XR_ITS ---
EXAMINATION: XR ABDOMEN KUB CLINICAL INDICATION: abdominal pain, constipation COMPARISON: Correlation made with CT abdomen and pelvis 02/09/2025. TECHNIQUE: AP view of the abdomen. FINDINGS: Bowel gas pattern is normal/nonspecific. There is no focally dilated loop. There is no significant stool burden seen in the colon or rectum. No organomegaly. No abnormal soft tissue calcifications. Lung bases clear. No acute or focal bony abnormality. Mild spinal degenerative changes, SI joint and hip joint degenerative changes. XR/XR KUB IMPRESSION: No acute findings or significant constipation. Electronically signed by: Moses Oreilly MD 02/27/2025 02:35 PM EDT
--- NOTE | 2025-02-27 09:30 | ED.ABDPAIN ---
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 She reports the pain is came on suddenly and is in her left upper quadrant and back. She was nauseated and vomiting once with small amount of blood speck in it. No longer nauseated. Pain is worse with movement. She has no hematuria, urgency, frequency, dysuria. She has has not had a bowel movement in 3 days. MD elicited complaint: abdominal pain and flank pain Onset (ago): minute(s) Pain Consistency: constant Location: LLQ and L flank Severity: moderate Quality: stabbing Radiation: none Migration to: no migration Exacerbating factors: movement Relieving factors: nothing Associated symptoms: nausea and vomiting Related Data Home Medications ?Medication ?Instructions ?Recorded ?Confirmed blood pressure test kit-large #1 ea 06/02/24 02/13/25 fluticasone propionate 220 2 puff inhalation BID 01/18/25 02/13/25 mcg/actuation HFA aerosol inhaler Previous Rx's ?Medication ?Instructions ?Recorded albuterol sulfate 90 mcg/actuation 2 inh PO Q4H PRN shortness of 08/13/20 aerosol inhaler breath or wheezing #8.5 grams docusate sodium 100 mg capsule 100 mg PO BID #30 caps 12/07/22 (Col-Rite) blood sugar diagnostic (FreeStyle #50 ea 02/10/23 Lite Strips) blood-glucose meter (FreeStyle #1 ea 02/10/23 Lite Meter kit) lancets 28 gauge (FreeStyle #100 ea 02/10/23 Lancets) cock up splint #1 ea 03/03/23 metformin 1,000 mg tablet 1,000 mg PO BID 90 days #180 tabs 06/29/23 blood pressure monitor #1 ea 02/07/24 nabumetone 750 mg tablet 750 mg PO BID 30 days #60 tabs 03/30/24 rosuvastatin 10 mg tablet 10 mg PO DAILY 90 days #90 tabs 04/20/24 sennosides 8.6 mg tablet (senna) 8.6 mg PO BEDTIME PRN constipation 04/20/24 7 days #7 tabs ibuprofen 600 mg tablet 600 mg PO Q8H PRN pain #14 tabs 04/23/24 meclizine 50 mg tablet 50 mg PO DAILY PRN motion sickness 04/23/24 #14 tabs gabapentin 300 mg capsule 300 mg PO TID pain 30 days #90 caps 07/06/24 albuterol sulfate 2.5 mg/3 mL 2.5 mg (3 mL) inhalation Q4-6H PRN 08/30/24 (0.083 %) solution for nebulization shortness of breath or wheezing 30 days #90 mL losartan 100 mg tablet 100 mg PO DAILY hypertension 30 10/26/24 days #30 tabs fluticasone propionate 110 2 puff inhalation BID Asthma/Cough 01/18/25 mcg/actuation HFA aerosol inhaler 30 days #12 grams dulaglutide 0.75 mg/0.5 mL 0.75 mg (0.5 mL) subcut QWEEK 90 02/08/25 subcutaneous pen injector days #6.5 mL (Trulicity) ipratropium 0.5 mg-albuterol 3 mg 3 ml inhalation Q6H PRN wheezing 02/09/25 (2.5 mg base)/3 mL nebulization #180 mL soln omeprazole 20 mg capsule,delayed 20 mg PO DAILY #90 caps 02/13/25 release Orencia ClickJect 125 mg/mL 125 mg subcut QWEEK #4 mL 02/27/25 subcutaneous auto-injector (abatacept) dicyclomine 20 mg tablet 20 mg PO TID PRN abdominal pain 02/27/25 #10 tabs Allergies Allergy/AdvReac Type Severity Reaction Status Date / Time cyclobenzaprine Allergy Intermediate Dizziness Verified 02/27/25 09:35 [From Flexeril] orphenadrine [From Norflex] Allergy Intermediate Dizziness Verified 02/13/25 15:13 sarilumab [From Kevzara] Allergy Intermediate Rash Verified 02/13/25 15:13 Review of Systems Review of Systems Yes all other systems are reviewed and are negative PMFSH Past Medical History Medical History Urinary tract infection Bronchitis Morbid obesity with BMI of 45.0-49.9, adult Sacroiliitis Rheumatic fever TIA (transient ischemic attack) Right-sided back pain History of COVID-19 Asthma exacerbation Hospital discharge follow-up Sacroiliitis Renal calculi Costovertebral angle tenderness Burning with urination Disc degeneration, lumbar Spondylosis of cervical spine Spondylosis of lumbar spine Pleuritic pain Restrictive lung disease Morbid obesity Asthma Dyslipidemia Essential hypertension Vaginal modesta Seropositive rheumatoid arthritis Rheumatoid arthritis Diabetes Surgical History History of cholecystectomy Hx of colonoscopy (09/01/19) History of surgery on wrist Family History Family History Father Diabetes mellitus Myocardial infarction Hypertension CVD (cardiovascular disease) Mother Diabetes mellitus CVD (cardiovascular disease) Sister No problems noted. Son No problems noted. Son No problems noted. Son No problems noted. Daughter Thyroiditis Daughter No problems noted. Daughter No problems noted. Daughter No problems noted. Daughter No problems noted. Other Asthma exacerbation Social History Social History Housing: Apartment Alcohol intake: never Patient Tobacco Use Status: Never used Tobacco Tobacco use type: Cigarette e-Cigarette/Vaping Use: Never Used Second Hand Smoke Exposure: No service: No Current occupational status: disabled Sexual orientation: Straight/Heterosexual Gender identity: Female Cognitive needs: No Hearing needs: No Vision needs: No Physical Exam ED Vital Signs: Vital Signs - 24 hr 02/27/25 14:15 02/27/25 15:42 Temperature 97.9 F 97.9 F Pulse Rate 66 66 Respiratory Rate 16 16 Blood Pressure 131/68 131/68 Pulse Oximetry 95 95 Oxygen Delivery Method Room Air Room Air BMI result Body Mass Index 40.2 Appearance: Alert. Oriented X3. No acute distress. Head: normocephalic, atraumatic. Eyes: Pupils equal, round and reactive to light. ENT: Pharynx normal. No tonsillar swelling or exudate. Neck: Normal inspection. Neck supple. CVS: Normal heart rate and rhythm. Pulses normal. Respiratory: No respiratory distress. Breath sounds normal. Abdomen: Soft with left upper quadrant tenderness, decreased but present +BS x4. No CVA tenderness bilaterally Skin: Skin warm and dry. Normal skin color. Normal skin turgor. No rashes. Extremities: No lower extremity edema. No joint swelling. Neuro/psych: Oriented X 3. Grossly normal, nonfocal N II-XII intact. Normal speech and cognition. Medical Decision Making Medical Decision Making [facility] Narrative: 65-year-old female presents to the ER for evaluation of acute onset of left upper quadrant and left flank pain with 1 episode of vomiting, blood-tinged vomitus. She reports intermittent right upper quadrant pain for last couple of weeks, none at present. She was seen here on February [address] scan. The images were reviewed. There was no evidence of kidney stones at that time. On arrival to the ER she IV was established she was given IV pain medication. She is complaining of cramping sensation afterwards. No further vomiting or nausea. Lab workup was reassuring. Urinalysis is negative for infection and blood. Low suspicion for kidney stones given her recent CT scan. KUB performed, no obstructive bowel gas pattern. No need to repeat the CT scan today. Suspect constipation is contributing with a cramping type pain. She is feeling better overall, tolerating p.o.. At this time she is stable for discharge home with bowel regimen, dietary modifications and follow up with her primary care doctor. Return precautions were discussed. Stable for discharge home Differential Diagnosis Differential Diagnoses: The differential diagnosis associated with the presentation includes Kidney stone, renal colic, constipation, colitis, pyelonephritis Admission/Observation Consideration of admission/observation: Escalation of care including admission/observation considered Lab Data [facility] Lab Attestation statement: I reviewed the patient's lab results. No leukocytosis, mild hyperglycemia without anion gap, negative urinalysis 02/27/25 11:17 02/27/25 11:17 Labs: Lab Results 02/27/25 Range/Units 11:17 WBC 6.8 (4.8-10.8) X10*3/uL RBC 4.55 (4.20-5.50) X10*6/uL Hgb 14.4 (12.0-16.0) g/dl Hct 40.4 (37.0-47.0) % MCV 88.8 (80.0-98.0) fL MCH 31.6 (27.0-33.0) pg MCHC 35.6 H (31.0-35.0) g/dl RDW 12.0 (11.0-16.0) % Plt Count 160 (160-400) X10*3/uL MPV 11.6 (9.4-12.3) fL Immature Gran % (Auto) 0.6 H (0.0-0.4) % Neut % (Auto) 58.1 (45-73) % Lymph % (Auto) 28.6 (20-40) % Fountain % (Auto) 4.9 (2-11) % Eos % (Auto) 7.2 H (0-4) % Baso % (Auto) 0.6 (0-2) % Lymph # (Auto) 1.9 (1.2-4.9) X10*3/uL Fountain # (Auto) 0.3 (0.1-1.2) X10*3/uL Eos # (Auto) 0.5 H (0.0-0.4) X10*3/uL Baso # (Auto) 0.0 (0.0-0.2) X10*3/uL Abs Immat Gran (auto) 0.04 H (0.00-0.03) X10*3/uL Absolute Neuts (auto) 3.9 (2.0-8.3) x10*3/uL Absolute Nucleated RBC 0.000 (0.0-0.012) X10*3/uL Nucleated RBC % (auto) 0.0 (0.0-0.2) /100WBC Sodium 140 (135-145) mmol/L Potassium 4.2 (3.3-5.1) mmol/L Chloride 110 H (96-108) mmol/L Carbon Dioxide 24 (22-29) mmol/L Anion Gap 10 L (12-20) BUN 13 (9-16) mg/dL Creatinine 0.72 (0.5-1.4) mg/dL Estim Creat Clear Calc 82.8 Estimated GFR > 60 Random Glucose 206 H (60-115) mg/dL Calcium 8.8 (8.4-10.2) mg/dL Magnesium 1.7 (1.6-2.6) mg/dL Total Bilirubin 0.9 (0.0-1.0) mg/dL Direct Bilirubin 0.2 (0.0-0.5) mg/dL AST 43 H (5-31) U/L ALT 24 (0-31) U/L Alkaline Phosphatase 94 (39-117) U/L Total Protein 6.8 (6.5-8.0) g/dL Albumin 3.6 (3.5-5.0) g/dL Lipase 21 (8-78) U/L Urine Color Yellow Urine Appearance Clear Urine pH 7.5 (5.0-9.0) Ur Specific [place] 1.010 (1.005-1.025) Urine Protein 100 (2+) H (Neg-Trace) mg/dL Urine Glucose (UA) 100 H (Negative) mg/dL Urine Ketones Negative (Negative) mg/dL Urine Blood Negative (Negative) Urine Nitrite Negative (Negative) Ur Leukocyte Esterase Negative (Negative) Urine RBC 0-2 (0-2) /HPF Urine WBC 0-5 (0-5) /HPF Ur Squamous Epith Cells 0-2 (0-2) /HPF Urine Bacteria None Seen (None Seen) Hyaline Casts 0-2 (0-2) /LPF Independent Historian Clinical information obtained from an independent historian. History obtained from or confirmed by: EMS External Record Review External record reviewed: Outpatient record, Prior outpatient labs and Prior outpatient radiology Tests considered The following testing was considered but not selected: CT scan of the abdomen and pelvis was considered however low suspicion for acute process, recently normal scan 2 weeks ago Prescription Management I considered prescription management with: Pain Medication and Antibiotic Chronic Conditions Patient?s care impacted by: Diabetes and Hypertension Medications Administered Discontinued Medications Generic Name Dose Route Start Last Admin Trade Name Freq PRN Reason Stop Dose Admin Al Hydroxide/Mg Hydroxide 30 ml 02/27/25 13:08 02/27/25 13:15 Magnesium Hydrox/Alum Hydrox 30 Ml Oral.Susp PO 02/27/25 13:09 30 ml ONCE ONE Administration Dicyclomine HCl 10 mg 02/27/25 13:02/27/25 13:15 Dicyclomine Hcl 10 Mg Capsule PO 02/27/25 13:09 10 mg ONCE ONE Administration Morphine Sulfate 4 mg 02/27/25 10:08 02/27/25 10:14 Morphine Sulfate 4 Mg/Ml Cartridge IVPUSH 05/20/25 10:09 4 mg ONCE ONE Administration Protocol Ondansetron HCl 4 mg 02/27/25 09:50 02/27/25 10:14 Ondansetron Hcl 4 Mg/2 Ml Vial IVPUSH 02/27/25 09:51 4 mg ONCE ONE Administration Pantoprazole Sodium 40 mg 02/27/25 09:50 02/27/25 10:14 Pantoprazole Sodium 40 Mg/10 Ml Vial IVPUSH 02/27/25 09:51 40 mg ONCE ONE Administration Critical Care Time Critical Care Time Critical Care Time: No Discharge Plan Discharge Clinical Impression: Abdominal pain Patient Disposition: Home, Self-Care Instructions: Constipation (DC), Abdominal Pain (ED) Additional Instructions: your lab work today was reassuring your urine test was did not have infection or blood your CT scan recently was unremarkable stick to a bland diet while you are not feeling well increase your oral fluids recommend over the counter laxatives like miralax and dulcolax, having more regular bowel movements should help your pain If you develop new or worsening symptoms call 911 or come back to the ER for further evaluation. Prescriptions: New dicyclomine 20 mg tablet 20 mg PO TID PRN (Reason: abdominal pain) Qty: 10 0RF No Action albuterol sulfate 90 mcg/actuation HFA aerosol inhaler 2 inh PO Q4H PRN (Reason: shortness of breath or wheezing) Qty: 8.5 1RF (DME) FreeStyle Lite Strips Strip See Rx Instructions .ROUTE .MEDSUPPLY Qty: 50 11RF Rx Instructions: Use 1 test strip once a day (DME) blood-glucose meter [FreeStyle Lite Meter] Kit See Rx Instructions .ROUTE .MEDSUPPLY Qty: 1 0RF Rx Instructions: E11.9 ONCE A DAY (DME) lancets [FreeStyle Lancets] 28 gauge misc See Rx Instructions .ROUTE .MEDSUPPLY Qty: 100 11RF Rx Instructions: Use 1 lancet once a day as needed (DME) blood pressure monitor Kit See Rx Instructions .Route Qty: 1 0RF Rx Instructions: As directed rosuvastatin 10 mg tablet 10 mg PO DAILY 90 Days Qty: 90 1RF albuterol sulfate 2.5 mg /3 mL (0.083 %) solution for nebulization 2.5 mg inhalation Q4-6H PRN (Reason: shortness of breath or wheezing) 30 Days Qty: 90 2RF Trulicity 0.75 mg/0.5 mL pen injector 0.75 mg subcut QWEEK 90 Days Qty: 6.5 1RF ipratropium-albuterol 0.5 mg-3 mg(2.5 mg base)/3 mL solution for nebulization 3 ml inhalation Q6H PRN (Reason: wheezing) Qty: 180 0RF omeprazole 20 mg capsule,delayed release(DR/EC) 20 mg PO DAILY Qty: 90 0RF Orencia ClickJect 125 mg/mL auto-injector 125 mg subcut QWEEK Qty: 4 4RF docusate sodium [Col-Rite] 100 mg capsule 100 mg PO BID Qty: 30 0RF meclizine 50 mg tablet 50 mg PO DAILY PRN (Reason: motion sickness) Qty: 14 0RF ibuprofen 600 mg tablet 600 mg PO Q8H PRN (Reason: pain) Qty: 14 0RF sennosides [senna] 8.6 mg tablet 8.6 mg PO BEDTIME PRN (Reason: constipation) 7 Days Qty: 7 0RF nabumetone 750 mg tablet 750 mg PO BID 30 Days Qty: 60 6RF metformin 1,000 mg tablet 1,000 mg PO BID 90 Days Qty: 180 1RF (DME) blood pressure test kit-large Kit See Rx Instructions .ROUTE .MEDSUPPLY Qty: 1 Rx Instructions: As directed fluticasone propionate 220 mcg/actuation HFA aerosol inhaler 2 puff inhalation BID fluticasone propionate 110 mcg/actuation HFA aerosol inhaler 2 puff inhalation BID 30 Days Qty: 12 5RF Rx Instructions: administer with spacer (DME) cock up splint See Rx Instructions .Route .MEDSUPPLY Qty: 1 0RF Rx Instructions: wear on the right wrist at night gabapentin 300 mg capsule 300 mg PO TID 30 Days Qty: 90 6RF losartan 100 mg tablet 100 mg PO DAILY 30 Days Qty: 30 4RF albuterol sulfate 2.5 mg /3 mL (0.083 %) solution for nebulization 2.5 mg inhalation ONCE Qty: 3 0RF Referrals: Aniyah Gonzalez MD [Primary Care Provider] - Interventions: ED Discharge Assessment Last Done: 02/27/25 15:42 Discharge Date/Time: 02/27/25 16:04 Print Language: Canadian
[2025-02-27 09:33] VITALS: BP 165/70; BP 170/70; PULSE 70; PULSE 71; RESP 18; TEMP 36.2; O2SAT 100; O2SAT 98; BMI 40.2
--- NOTE | 2025-02-27 09:51 | ECG_ITS ---
Test Reason : adobominal pain Blood Pressure : */* mmHG Vent. Rate : 69 BPM Atrial Rate : 69 BPM P-R Int : 218 ms QRS Dur : 92 ms QT Int : 386 ms P-R-T Axes : 42 -2 14 degrees QTcB Int : 413 ms Sinus rhythm with 1st degree A-V block Otherwise normal ECG When compared with ECG of 29-Apr-2024 09:16, No significant change was found Referred By: Bhavya Hackett Electronically Signed By: Charlie Peters
[2025-02-27] MEDS: Morphine Sulfate 4 MG/ML CARTRIDGE IVPUSH (10:14)
[2025-02-27] MEDS: ondansetron HCL 4 MG/2 ML VIAL IVPUSH (10:14)
[2025-02-27] MEDS: Pantoprazole Sodium 40 MG/10 ML VIAL IVPUSH (10:14)
[2025-02-27 11:04] VITALS: BP 131/58; PULSE 62
[2025-02-27 11:05] VITALS: BP 138/65; PULSE 71
[2025-02-27 11:06] VITALS: BP 133/63; PULSE 71
[2025-02-27 11:26] LABS: Appearance Urine Clear; Color Urine Yellow; Glucose Urine UA 100 mg/dL (Negative); Leukocyte Esterase Urine Negative (Negative); Nitrite Urine Negative (Negative); PH 7.5 (5.0-9.0); UMIC TRIGGER UACC YES; Urine Blood Negative (Negative); Urine Ketones Negative (Negative); Urine Protein 100 (2+) mg/dL (Neg-Trace)
[2025-02-27 11:28] LABS: Bacteria Urine None Seen (None Seen); Hyaline Casts Urine 0-2 /LPF (0-2); RBC Urine 0-2 /HPF (0-2); Squamous Epithelial Cell Urine 0-2 /HPF (0-2); WBC Urine 0-5 /HPF (0-5)
[2025-02-27 11:42] LABS: Alanine Aminotransferase 24 U/L (0-31); Albumin Level 3.6 g/dL (3.5-5.0); Alkaline Phosphatase 94 U/L (39-117); Anion Gap 10 (12-20); Aspartate Amino Transferase 43 U/L (5-31); Bilirubin Direct 0.2 mg/dL (0.0-0.5); Bilirubin Total 0.9 mg/dL (0.0-1.0); Blood Urea Nitrogen 13 mg/dL (9-16); Calcium 8.8 mg/dL (8.4-10.2); Carbon Dioxide 24 mmol/L (22-29); Chloride 110 mmol/L (96-108); Creatinine Clr Calc Pharmacy 82.8; Estimated Glomerular Filt Rate > 60; Glucose Random 206 mg/dL (60-115); Lipase 21 U/L (8-78); Magnesium 1.7 mg/dL (1.6-2.6); Potassium 4.2 mmol/L (3.3-5.1); Sodium 140 mmol/L (135-145); Total Protein 6.8 g/dL (6.5-8.0)
[2025-02-27 11:43] LABS: Basophils Percent Auto 0.6 % (0-2); Eosinophils Absolute Auto 0.5 X10*3/uL (0.0-0.4); Eosinophils Percent Auto 7.2 % (0-4); Hematocrit 40.4 % (37.0-47.0); Hemoglobin 14.4 g/dl (12.0-16.0); Imm Gran Abs Auto 0.04 X10*3/uL (0.00-0.03); Imm Gran Pct Auto 0.6 % (0.0-0.4); Lymphocytes Absolute Auto 1.9 X10*3/uL (1.2-4.9); Lymphocytes Percent Auto 28.6 % (20-40); Mean Corpuscular HGB Conc 35.6 g/dl (31.0-35.0); Mean Corpuscular Hemoglobin 31.6 pg (27.0-33.0); Mean Corpuscular Volume 88.8 fL (80.0-98.0); Mean Platelet Volume 11.6 fL (9.4-12.3); Monocytes Absolute Auto 0.3 X10*3/uL (0.1-1.2); Monocytes Percent Auto 4.9 % (2-11); Neutrophils Absolute Auto 3.9 x10*3/uL (2.0-8.3); Neutrophils Percent Auto 58.1 % (45-73); Platelet Count 160 X10*3/uL (160-400); Red Blood Count 4.55 X10*6/uL (4.20-5.50); White Blood Count 6.8 X10*3/uL (4.8-10.8)
[2025-02-27] MEDS: Dicyclomine HCl 10 MG CAPSULE PO (13:15)
[2025-02-27] MEDS: Magnesium Hydrox/Alum Hydrox 30 ML ORAL.SUSP PO (13:15)
[2025-02-27 14:15] VITALS: BP 131/68; PULSE 66; RESP 16; TEMP 36.6; O2SAT 95
[2025-02-27 15:42] VITALS: BP 131/68; PULSE 66; RESP 16; TEMP 36.6; O2SAT 95
== END 2025-02-27 16:04 | disposition home or self-care (01) ==
PROVIDERS: Physician Assistant; Emergency Provider Emergency Medicine; PCP Internal Medicine
DX: R10.11 Right upper quadrant pain (principal); I44.0 Atrioventricular block, first degree; R11.2 Nausea with vomiting, unspecified; E11.9 Type 2 diabetes mellitus without complications; R10.32 Left lower quadrant pain; Z79.899 Other long term (current) drug therapy
CPT/HCPCS: 36415; 74018; 80048; 80076; 81001; 83690; 83735; 85025; 93005; 96374; 96375; 99284; J2270; J2405; J2470

== ENCOUNTER → 2025-02-27 09:51 | Outpatient (BNV) | payer MEDICARE, MEDICAID, SELFPAY | PROVIDERS: Emergency Provider Emergency Medicine; PCP Internal Medicine; Visit Provider Internal Medicine Cardiovascular Disease | DX: I44.0 Atrioventricular block, first degree (principal) | CPT/HCPCS: 93010 ==

== ENCOUNTER → 2025-02-27 13:08 | Outpatient (BNV) | payer MEDICARE, MEDICAID, SELFPAY | PROVIDERS: Emergency Provider Emergency Medicine; PCP Internal Medicine; Visit Provider Radiology Diagnostic Radiology | DX: K59.00 Constipation, unspecified (principal); R10.9 Unspecified abdominal pain | CPT/HCPCS: 74018 ==

== ENCOUNTER 2025-03-06 14:55 | Outpatient (AMB) | payer MEDICARE, MEDICAID, SELFPAY ==
--- OUTSIDE RECORDS SUMMARY | 2025-03-06 14:57 | XMS_ITS ---
Author Organization [facility] Address [facility] [place] [address] Care Team Providers Care Product Safety Test Engineer Name Role Phone NORTH MOYER BOOEnmanuel Primary Care Provide r [phone] SE, CSI BQTAS SE Unavailable [phone] PACO DE LA VEGA Unavailable [phone] Allergies Allergen (clinical drug ingredient) Drug/Non Drug Allergy documented on EMR Reaction Allergy Type Onset Date Status Flexeril dizziness Drug Allergy Active Norflex dizziness Drug Allergy Active Results Component Value Reference Range Notes CBC + DIFF Reviewed date:12/28/2024 02:51:15 PM Interpretation: Performing Lab: Notes/Report: CBC Col. Tabitha. Med. P.R. ORDER [id number] PERFORMED AT: Pat. No.: [id number] [facility] en [place] Paid 5 Cents [address] Exp: 01/08/2025 [place] [id number] Num: [id number] DIRECTOR: JAIME SARAVIA LICENSE.: [id number] CLIA: [id number] WHITE BLOOD COUNT 7.0 4.8-10.8 X10 RED [...] BY: DxH 560 RBC MORPHOLOGY 1 MAYANK CHEST-AP ONLY *1 VIEW Reviewed date:01/01/2025 08:48:19 AM Interpretation: Performing Lab: Notes/Report: See Below For Report Chest PA: [id number].Report Text See Below For Report COVID-19 ANTIGEN Reviewed date:12/28/2024 02:51:15 PM Interpretation: Performing Lab: Notes/Report: Col. Tabitha. Med. P.R. ORDER [id number] PERFORMED AT: -- Positive results indicate the presence of COVID-19 antigen, but clinical Pat. No.: [id number] [facility] de [place] [facility] [place] correlation with patient history and other diagnostic information is Paid 5 Cents [facility] [address] necessary to determine infection status. Positive results do not rule out Exp: 01/08/2025 [place] [address] bacterial infection or co-infection with other viruses and do not Num: [id number] differentiate between SARS-CoV and SARS-CoV-2. DIRECTOR: JAIME SARAVIA -- Negative results, from patients with symptom onset beyond seven days, LICENSE.: [id number] CLIA: [id number] should be treated as presumptive and confirmation [...] sample is Col. Tabitha. Med. P.R. ORDER [id number] PERFORMED AT: below the detection limit of the test. Pat. No.: [id number] [facility] de [place] [facility] Test results must be evaluated in conjunction with other clinical data. Paid 5 Cents CAL[address]manuel [address] [address] Negative test results do not rule out other non-influenza viral infections Exp: 01/08/2025 [place] [address] Positive test results do not identify specific influenza A virus subtypes Num: [id number] Individuals who recieved nasally influenza A vaccine may have positive DIRECTOR: JAIME SARAVIA test results for up to three days after vaccination. LICENSE.: [id number] CLIA: [id number] INFLUENZA A ANTIGEN NEGATIVE NEGATIVE INFLUENZA B ANTIGEN NEGATIVE NEGATIVE METHOD: STATUS COVID-19/FLU A&B REASON FOR VISIT Paciente refiere estoypresentando tos frecuente y de tanto toser me duele aarea de espalda lado derecho desde hacen varios alicea me he dado terapias tennille no he LOIS ortiz RN, BSN Lic. [id number],DEVEN 12/28/2024 12:27:51 PM > Medications Medication SIG (Take, Route, Frequency, Duration) Notes Start Date End Date Status Oseltamivir Phosphate 75 MG 1 capsule Orally Twice a day for 5 days 09/29/2024 Unknown Loratadine 10 MG 1 tablet Orally Once a day 09/29/2024 Unknown Tussin DM 100-10 MG/5ML 10 mL as needed Orally Every 6 hours 09/29/2024 Unknown Bmukjiqp-Ogeakcand-FJ 1 % 4 drops into a ffected [...] 12/28/2024 Weight-kg 95.25 kg 12/28/2024 CÉSAR BARBA. TRACK LAYING SUPERVISOR Lic. [id number], GENE 12/28/2024 02:19:43 PM >Paciente no refiere dolor al momento de renato. Encounters Encounter Location Date Provider Diagnosis [address] [place] [address] [place], [place] [id number] 12/28/2024 PACO HAWLEY Cough R05.9 ; Low back pain M54.50 and Asthma exacerbation J45.901 Assessments Encounter Date Diagnosis (ICD Code) Assessment Notes Treatment Notes Treatment Clinical Notes Section Notes 12/28/2024 Cough (ICD-10 - R05.9) 1) TUSSIN 10 ML PO 2) [id number] MG IV 3) SOLUMEDROL 125 M GIV 4) ALBUTEROL 0.083 + ATROVENT 0.02 BY PN ONCE PACO DE [place] VEGA 12/28/2024 12:50:51 PM > CÉSAR BARBA. TRACK LAYING SUPERVISOR Lic. [id number], GENE 12/28/2024 12:57:44 PM > Orden tomada. CÉSAR BARBA. TRACK LAYING SUPERVISOR Lic. [id number], GENE 12/28/2024 12:57:44 PM > CÉSAR BARBA. TRACK LAYING SUPERVISOR Lic. [id number], GENE 12/28/2024 01:10:58 PM > Se recibe [...] a notificar cambios, refiere entender. Dr. Brenda gatesoca terapia respiratoria Albuterol 0.083% + Atrovent 0.02 10/11. CÉSAR BARBA. TRACK LAYING SUPERVISOR Lic. [id number], GENE 12/28/2024 01:10:58 PM > CÉSAR BARBA. CÉSAR BARBA. TRACK LAYING SUPERVISOR Lic. [id number], GENE 12/28/2024 02:10:54 PM > Paciente es [...] dolor en 0 al momento del renato. CSÉAR BARBA. TRACK LAYING SUPERVISOR Lic. [id number], GENE 12/28/2024 02:10:55 PM > 12/28/2024 Low back pain (ICD-10 - M54.50) 12/28/2024 Asthma exacerbation (ICD-10 - J45.901) Plan Of Treatment Treatment Notes Assessment Notes Cough 1) TUSSIN 10 ML PO 2) [id number] MG IV 3) SOLUMEDROL 125 M GIV 4) ALBUTEROL 0.083 + ATROVENT 0.02 BY PN ONCE PACO DE [place] VE[place] A 12/28/2024 12:50:51 PM > CÉSAR OSBORNE RN BSN Lic. [id number], GENE 12/28/2024 12:57:44 PM > Orden tomada. CÉSAR BARBA. TRACK LAYING SUPERVISOR Lic. [id number], GENE 12/28/2024 12:57:44 PM > CÉSAR OSBORNE RN BSN Lic. [id number], GENE 12/28/2024 01:10:58 PM > Se recibe [...] 0.083% + Atrovent 0.02 10/11. CÉSAR BARBA. TRACK LAYING SUPERVISOR Lic. [id number], GENE 12/28/2024 01:10:58 PM > CÉSAR BARBA. CÉSAR BARBA. TRACK LAYING SUPERVISOR Lic. [id number], GENE 12/28/2024 02:10:54 PM > Paciente es [...] 0 al momento del renato. CÉSAR BARBA. TRACK LAYING SUPERVISOR Lic. [id number], GENE 12/28/2024 02:10:55 PM > Progress Notes * ANOOP HERRINGQUEZLauraDOB: (64 yo F)Acc No.[id number]:12/28/2024 Patient:?Shania HOWARD Provider:?PACO HAWLEY MD :1960???Age:64 Y???Sex:Female D ate:12/28/2024 Address:[address] [place] [address], [id number] Pcp:ASAD SANZ NO Check In:12:29 PM BOTCheck O ut:02:19 PM BOT Subjective: * Chief Complaints: * ???1. Paciente refiere estoy presentando tos frecuente y de tanto toser me duele aarea de espalda lado derecho desde hacen varios alicea me he dado terapias tennille no he angel . 2. LOIS DELUNA RN, BSN Lic. [id number], [place] 12/28/2024 12:27:51 PM >. * HPI: ???Depression [...] escolar?12,?..Vivienda?con radha,?..Sospecha de maltrato?No,?..Viaje reciente fuera de NE <2 meses?No,?Transfusion/inmunisaciones?Siguiente,?..Transfusiones de maura?No,?..Reaccion a transfusion?No,?..Inmunizacion?Si,?..Inmunizacion Tetano [...] los ultimos 14 alicea?No,?Simmons viajado fuera de NE o simmons estado en contacto con alguien que haya estado fuera de NE en los pasados 14 alicea?No,?Se simmons vacunado [...] pain Orally every 12 hrs , Unknown Nmzzpzyq-Fwjjknjbs-OX 1 % Solution 4 drops into affected ear RIGHT EAR Otic Three times a day , Medication List reviewed and reconciled with the patient * Allergies:?Norflex: dizzines s - Allergy, Flexeril: dizziness - Allergy. Objective: * Vitals: Ht 61in?? 12/28/2024 12:30:31 PM BOT?? Wt* 210 lbs?? 12/28/2024 12:30:31 PM BOT?? ELB A?ABREU DELUNA RN, BSN Lic. [id number] BMI* 39.67Index?? 12/28/2024 12:30:31 PM BOT?? ELB A?LOIS DELUNA RN, BSN Lic. [id number] Pain scale* 51-10?? 12/28/2024 12:30:31 PM BOT?? ELB A?LOIS DELUNA RN, BSN Lic. [id number] BP* 155/73mm Hg?? 12/28/2024 02:19:24 PM BOT?? SOL S?CÉSAR OSBORNE RN BSN Lic. [id number] 152/79 mm Hg?? 12/28/2024 12:35:00 PM BOT?? ELB A?LOIS DELUNA RN, BSN Lic. [id number] HR* 81/min?? 12/28/2024 02:19:24 PM BOT?? SOL S?CÉSAR OSBORNE RN BSN Lic. [id number] 79 /min?? 12/28/2024 12:35:00 PM BOT?? ELB A?LOIS DELUNA RN, BSN Lic. [id number] RR* 19/min?? 12/28/2024 02:19:24 PM BOT?? SOL S?CÉSAR OSBORNE RN BSN Lic. [id number] 23 /min?? 12/28/2024 12:35:00 PM BOT?? ELB A?LOIS DELUNA RN, BSN Lic. [id number] Temp* 37.0C?? 12/28/2024 02:19:24 PM BOT?? SOL S?CÉSAR OSBORNE RN BSN Lic. [id number] 37.0 C?? 12/28/2024 12:35:00 PM BOT?? ELB A?LOIS DELUNA RN, BSN Lic. [id number] Oxygen sat %* 98%?? 12/28/2024 02:19:24 PM BOT?? SOL S?CÉSAR OSBORNE RN BSN Lic. [id number] 97 %?? 12/28/2024 12:35:00 PM BOT?? ELB A?LOIS DELUNA RN, BSN Lic. [id number] LMP* post?? 12/28/2024 12:30:31 PM BOT?? ELB A?LOIS DELUNA RN, BSN Lic. [id number] Glucose:* 153?? 12/28/2024 12:35:00 PM BOT?? ELB A?LOIS DELUNA RN, BSN Lic. [id number] Ht-cm* 154.94 cm?? 12/28/2024 12:30:31 PM BOT?? ELB A?LOIS DELUNA RN, BSN Lic. [id number] Wt-kg* 95.25 kg?? 12/28/2024 12:30:31 PM BOT?? ELB A?LOIS DELUNA RN, BSN Lic. [id number] CÉSAR OSBORNE RN BSN Lic. [id number], GENE 12/28/2024 02:19:43 PM >Paciente no refiere dolor al momento de renato. * Physical Examination:?HEENT: PERRLA, MOIST ORAL MUCOSA NECK: SUPPLE HEART: RRR LUNGS: CLEAR TO AUSCULTATION, ACTIVE COUGHING ABDOMEN: + BS, SOFT/DEPRESIBLE, NO GUARDING, NO REBOUND, NO MASSES NEURO: ALERT, ACTIVE, ORIENTED X 3, NO ACUTE NEUROLOGIC DEFICIT MUSC: PARAVERTEBRAL LUMBAR TENDERNSS PACO DE [place] VEGA 12/28/2024 12:49:25 PM > . Assessment: * [...] - 12/28/2024)* LANDON SAM RN, BSN Lic. [id number], KEN 12/28/2024 12:56:19 PM > Se escolta paciente a ubaldo-x kyle orden medica. Notes: 1) TUSSIN 10 ML PO 2) [id number] MG IV 3) SOLUMEDROL 125 M GIV 4) ALBUTEROL 0.083 + ATROVENT 0.02 BY PN ONCE BRENDA HAWLEY, PACO A 12/28/2024 12:50:51 PM > CÉSAR BARBA. TRACK LAYING SUPERVISOR Lic. [id number], GENE 12/28/2024 12:57:44 PM > Orden tomada. CÉSAR BARBA. TRACK LAYING SUPERVISOR Lic. [id number], GENE 12/28/2024 12:57:44 PM > CÉSAR BARBA. TRACK LAYING SUPERVISOR Lic. [id number], GENE 12/28/2024 01:10:58 PM > Se recibe [...] 0.083% + Atrovent 0.02 10/11. CÉSAR BARBA. TRACK LAYING SUPERVISOR Lic. [id number], GENE 12/28/2024 01:10:58 PM > CÉSAR BARBA. CÉSAR BARBA. TRACK LAYING SUPERVISOR Lic. [id number], GENE 12/28/2024 02:10:54 PM > Paciente es [...] 0 al momento del renato. CÉSAR BARBA. TRACK LAYING SUPERVISOR Lic. [id number], GENE 12/28/2024 02:10:55 PM >?? * Procedure Codes:?61881 COMPL ETE CBC W/AUTO DIFF WBC, [address]251 EMERGENCY DEPT VISIT, [address] [place], [address] INFLUENZA ASSAY W/OPTIC A Y B, [address]132 X-RAY EXAM CHEST 1 VIEW, [address]10 EMERGENCY DEPT VISIT MOD MDM * Preventive [...] Information: * Visit Code:? * Procedure Codes:? 74434 COMPLETE CBC W/AUTO DIFF WBC. 58109 EMERGENCY DEPT VISIT. [address] [place]. [address] INFLUENZA ASSAY W/OPTIC A Y B. 55595 X-RAY EXAM CHEST 1 VIEW. 29917 EMERGENCY DEPT VISIT MOD MDM. * Sign off status: Completed true * Provider:?PACO HAWLEY MD Date :?12/28/2024 Generated for Printi osiris/Fabien/eTransmitting on:?03/06/2025 02:55 PM BOT History and Physical Notes * [...]
--- NOTE | 2025-03-06 15:02 | A.OFFPC_ITS ---
Vital Signs 03/06/25 15:03 Height 5 ft 1 in Weight 211 lb BMI 39.9 BP 132/80 Blood Pressure Location Lt brachial Position Sitting Intake Visit Reasons: dm Intake Note: Patient here for a follow up DM Paper Pattern Inspector Required: No Accompanied by: Self / Same As Patient Allergies cyclobenzaprine [From Flexeril] Allergy (Intermediate, Verified 03/06/25 15:24) Dizziness orphenadrine [From Norflex] Allergy (Intermediate, Verified 03/06/25 15:24) Dizziness sarilumab [From Kevzara] Allergy (Intermediate, Verified 03/06/25 15:24) Rash Medication List - Last Reconciled 03/06/25 by Aniyah Friend MD albuterol sulfate 90 mcg/actuation 2 inhalations PO Q4H PRN albuterol sulfate 2.5 mg (3 mL) inhalation Q4-6H PRN 30 days blood pressure monitor As directed blood pressure test kit-large As directed blood sugar diagnostic (FreeStyle Lite Strips) Use 1 test strip once a day blood-glucose meter (FreeStyle Lite Meter kit) E11.9 ONCE A DAY [cock up splint wear on the right wrist at night ] dicyclomine 20 mg PO TID PRN docusate sodium (Col-Rite) 100 mg PO BID dulaglutide (Trulicity) 0.75 mg (0.5 mL) subcut QWEEK 90 days fluticasone propionate 110 mcg/actuation 2 puffs inhalation BID 30 days fluticasone propionate 220 mcg/actuation 2 puffs inhalation BID gabapentin 300 mg PO TID 30 days ibuprofen 600 mg PO Q8H PRN ipratropium-albuterol 0.5 mg-3 mg(2.5 mg base)/3 mL 3 mL inhalation Q6H PRN lancets (FreeStyle Lancets) Use 1 lancet once a day as needed losartan 100 mg PO DAILY 30 days meclizine 50 mg PO DAILY PRN metformin 1,000 mg PO BID 90 days nabumetone 750 mg PO BID 30 days omeprazole 20 mg PO DAILY Orencia ClickJect (abatacept) 125 mg subcut QWEEK NS rosuvastatin 10 mg PO DAILY 90 days sennosides (senna) 8.6 mg PO BEDTIME PRN 7 days Tobacco use date assessed: 10/31/24 Fall risk assessment: No Falls in past year Last assessed Fall Risk: 03/06/25 Dental Screening Dental Screen Date: 10/31/24 HPI HPI Comments History of Present Illness Details The patient is a 65-year-old female presenting with concerns about d iabetes management. Her Type 2 Diabetes Mellitus has been difficult to control, with an elevated hemoglobin A1c of 7.6%. She has a concurrent diagnosis of Essential Hypertension, Hyperlipidemia, managed respectively with Losartan and Rosuvastatin, and Rheumatoid Arthritis, treated with Orencia. Her treatment plan for diabetes includes adjusting Trulicity from 0.75mg to 1.5mg weekly. She also receives Gabapentin thrice daily for neuropathic pain and Diciclomina for abdominal discomfort, which is recommended thrice daily with meals. She experiences nighttime discomfort potentially linked to elevated blood glucose levels. Notably, she has a history of adverse drug reactions including dizziness with Cyclobenzaprine and Tizanidine, and a rash with Sarilumab. [facility] Medical History Urinary tract infection Bronchitis Morbid obesity with BMI of 45.0-49.9, adult Sacroiliitis Rheumatic fever TIA (transient ischemic attack) Right-sided back pain History of COVID-19 Asthma exacerbation Hospital discharge follow-up Sacroiliitis Renal calculi Costovertebral angle tenderness Burning with urination Disc degeneration, lumbar Spondylosis of cervical spine Spondylosis of lumbar spine Pleuritic pain Restrictive lung disease Morbid obesity Asthma Dyslipidemia Essential hypertension Vaginal modesta Seropositive rheumatoid arthritis Rheumatoid arthritis Diabetes Surgical History History of cholecystectomy Hx of colonoscopy (09/01/19) History of surgery on wrist Family History Father Diabetes mellitus Myocardial infarction Hypertension CVD (cardiovascular disease) Mother Diabetes mellitus CVD (cardiovascular disease) Sister No problems noted. Son No problems noted. Son No problems noted. Son No problems noted. Daughter Thyroiditis Daughter No problems noted. Daughter No problems noted. Daughter No problems noted. Daughter No problems noted. Other Asthma exacerbation Social History Housing: Apartment Alcohol intake: never Patient Tobacco Use Status: Never used Tobacco Tobacco use type: Cigarette e-Cigarette/Vaping Use: Never Used Second Hand Smoke Exposure: No service: No Current occupational status: disabled Sexual orientation: Straight/Heterosexual Gender identity: Female Cognitive needs: No Hearing needs: No Vision needs: No Female Reproductive History Menstrual Age of Menarche: 11 Date of menopause: 01/22/10 Questionnaire PHQ-9 Over the last 2 weeks, how often have you been bothered by any of the following problems? 1. Little interest or pleasure in doing things: nearly every day 2. Feeling down, depressed, or hopeless: nearly every day 3. Trouble falling or staying asleep, or sleeping too much: nearly every day 4. Feeling tired or having little energy: nearly every day 5. Poor appetite or overeating: nearly every day 6. Feeling bad about yourself - or that you are a failure or have let yourself or your family down: nearly every day 7. Trouble concentrating on things, such as reading the newspaper or watching television: not at all 8. Moving or speaking so slowly that other people could have noticed. Or the opposite - being so fidgety or restless that you have been moving around a lot more than usual: not at all 9. Thoughts that you would be better off or of hurting yourself in some way: not at all Total score: 18 Depression Screening Interpretation: Positive Depression Screening Follow-up: Existing condition and Follow-up Visit Requested Depression Screening Done: Yes 12764 - PHQ-9 Billing: Yes Source: Developed by Drs. Spencer Gonzalez, Anamaria Bartlett, Clayton Azar and colleagues, with an educational anna from [employer]. Thrive Questionnaire Date Thrive assessed: 10/31/24 SONA-7 AMB Questionnaire SONA-7 Date SONA - 7 assessed: 10/31/24 Source: Developed by Drs. Spencer Gonzalez, Anamaria Bartlett, Clayton Azar and colleagues, with an educational anna from [employer]. Review of Systems Const All systems reviewed & are unremarkable except as noted in HPI and below Card Denies chest pain at rest, Denies chest pain with activity, Denies edema, Denies irregular heart rhythm, Denies claudication, Denies dyspnea, Denies dyspnea on exertion, Denies orthopnea, Denies paroxysmal nocturnal dyspnea and Denies slow heart rate Resp Denies cough, Denies dyspnea and Denies dyspnea on exertion GI Denies abdominal pain, Denies change in bowel habits, Denies excessive flatus, Denies nausea and Denies vomiting Neuro Denies behavioral changes and Denies lack of coordination Psych Denies behavioral changes Physical exam (Primary Care) Vital Signs: Last Vital Signs BP 132/80 03/06/25 15:03 BMI result Body Mass Index 39.9 Tobacco/Smoking Status: Tobacco use Status Tobacco use date assessed 10/31/24 03/06/25 15:13 Patient Tobacco Use Status Never used Tobacco 03/06/25 15:13 Tobacco use type Cigarette 03/06/25 15:13 e-Cigarette/Vaping Use Never Used 03/06/25 15:13 PHQ-9: PHQ-9 Score PHQ-9: Total score 18 03/06/25 16:38 Depression Screening Interpretation: Positive Depression Screening Follow-up: Existing condition and Follow-up Visit Requested Thrive Assessment: Date of Thrive Assessment Date Thrive assessed 10/31/24 03/06/25 15:13 Resp Effort & Inspection: normal respiratory effort Auscultation: clear to auscultation bilaterally Cardio Jugular venous distension: no JVD Rate: regular rate Rhythm: regular rhythm Heart sounds: S1 normal heart sound present and S2 normal heart sound present Extrem General: Yes full ROM Results AMB Hemoglobin A1c AMB Hemoglobin A1c 7.6 % Last Edit by JAMES Monge on 03/06/25 15:1 6 Results Reviewed Results Reviewed: Laboratory Last Values Hgb A1c (Clinic) 7.6 % (4.0-6.0) H 03/06/25 15:01 Coding Level of Care Code Est Pt Level 4 (49095) Complex EM visit Add On G2211 Diagnoses Type 2 diabetes mellitus with hyperglycemia E11.65 Essential hypertension I10 Dyslipidemia E78.5 Seropositive rheumatoid arthritis M05.9 Additional Codes PHQ-9 - 99152 - PHQ-9 Billing: Yes ([id number]) Time Spent (min) 23 Assessment & Plan Assessment & Plan (1) Type 2 diabetes mellitus with hyperglycemia: Code(s): E11.65 - Type 2 diabetes mellitus with hyperglycemia Category: Medical (2) Essential hypertension: Code(s): I10 - Essential (primary) hypertension Category: Medical (3) Dyslipidemia: Code(s): E78.5 - Hyperlipidemia, unspecified Category: Medical (4) Seropositive rheumatoid arthritis: Comment: ++RF+++CCP deforming dx in her 40s Humira:08/29 - 03/30 -active disease on exam Dillon:04/29-08/30 - active disease on exam Nj:08/30-12/29- active disease on exam Marlinra: 01/2021- stopped due to rash Orencia: 01/2021 - present effective MTX in the past - transaminitis Code(s): M05.9 - Rheumatoid arthritis with rheumatoid factor, unspecified Category: Medical Plan Increase Trulicity weekly to better manage her diabetes due to a recent A1c increase. Her Docusate regimen for constipation and Losartan and Rosuvastatin for hypertension and hyperlipidemia, respectively, will remain unchanged. Weekly Orencia will continue under rheumatology's advice. Fasting labs are planned in four months to monitor cholesterol and diabetes control. Gabapentin and Diciclomina dosing continues, noting the former for neuropathy and the latter with meals for gastrointestinal relief.: Patient was informed and verbally consented to the use of an ambient scribe for clinic note documentation during this visit. The discussed increased hemoglobin A1c indicated a need to adjust diabetes management, leading to an informed decision for adjusting the Trulicity dosage. The potential risks, such as gastrointestinal side effects or hypoglycemia, versus the anticipated benefit of better glycemic control were reviewed. The patient consented to these modifications and understands the importance of monitoring and follow-up laboratory appointments scheduled in four months for a comprehensive evaluation of her glycemic control and lipid levels. The importance of administering Diciclomina with meals and continual lifestyle monitoring for optimal management of her conditions was emphasized. Orders: Orders AMB Hemoglobin A1c Today E11.65 - Type 2 diabetes mellitus with hyperglycemia Lipid Panel 4 Months E78.5 - Hyperlipidemia, unspecified Microalbumin, Random (w Creat) 4 Months R80.9 - Proteinuria, unspecified Vitamin D 25-OH Total 4 Months E55.9 - Vitamin D deficiency, unspecified Comprehensive [place]. Panel Fast 4 Months E11.65 - Type 2 diabetes mellitus with hyperglycemia Medications: New dulaglutide (Trulicity) 1.5 mg (0.5 mL) subcut QWEEK 2 mL 5RF 4 weeks E11.65 - Type 2 diabetes mellitus with hyperglycemia Changed From dicyclomine 20 mg PO TID PRN 10 tabs 0RF abdominal pain To dicyclomine 20 mg PO TID PRN 90 tabs 0RF abdominal pain 30 days Discontinued dulaglutide (Trulicity) Discontinued Reason: Patient Completed Course 0.75 mg (0.5 mL) subcut QWEEK 90 days 6.5 mL 1RF Patient Instructions: - Take Trulicity (Dulaglutide) 1.5mg once weekly as advised, review potential side effects. - Continue Losartan, Rosuvastatin, Docusate, and other medications as directed. - Administer Diciclomina with meals three times daily. - Plan for fasting lab tests in four months. - Monitor symptoms and report any severe or unusual reactions. - Follow up for scheduled visits and additional evaluations or concerns.
[2025-03-06 15:03] VITALS: BP 132/80; BMI 39.9
== END 2025-03-06 15:37 | disposition home or self-care (01) ==
LOC: HO.HMCH 14:55
PROVIDERS: PCP Internal Medicine; Visit Provider Internal Medicine
DX: E11.65 Type 2 diabetes mellitus with hyperglycemia (principal); I10 Essential (primary) hypertension; E78.5 Hyperlipidemia, unspecified; M05.9 Rheumatoid arthritis with rheumatoid factor, unspecified

== ENCOUNTER → 2025-03-06 14:55 | Outpatient (BNVA) | payer MEDICARE, MEDICAID, SELFPAY | PROVIDERS: PCP Internal Medicine; Visit Provider Internal Medicine | DX: E11.65 Type 2 diabetes mellitus with hyperglycemia (principal); E78.5 Hyperlipidemia, unspecified; I10 Essential (primary) hypertension; M05.9 Rheumatoid arthritis with rheumatoid factor, unspecified | CPT/HCPCS: 83036; 96127; 99212 ==

== ENCOUNTER 2025-03-13 12:12 | Emergency (ER) | payer MEDICARE, MEDICAID, SELFPAY ==
--- NOTE | ~2025-03-13 | XR_ITS ---
CLINICAL HISTORY: right sided chest pain 2 view chest x-ray Comparison: CR - XR CHEST 2V - 02/09/25 22:17 EDT Findings: The lungs are clear. Normal size heart. No acute fracture. IMPRESSION: 1. No acute findings. This document has been electronically signed by: Floyd Richey MD on 03/13/2025 20:17:14
[2025-03-13 12:50] VITALS: BP 124/70; PULSE 72; RESP 16; TEMP 36.2; O2SAT 98; BMI 43.5
--- NOTE | 2025-03-13 12:55 | ED_ITS ---
HPI - General Adult General Chief complaint: Abdominal Pain Stated complaint: Abd pain R side Time Seen by Provider: 03/13/25 19:21 History of Present Illness ED Provider: Emily CAMERON narrative: The patient is a 65-year-old woman who comes to the emergency room for evaluation of pain on her right side. She says that she has been having problems with this pain for several months and has had previous emergency room visits for the same pain. She says she has also follow up with the regular doctor because of the pain. She says that she has not been given a specific diagnosis. She says that the pain waxes and wanes. She says that last night she could not sleep because of the pain and therefore she came to the emergency room today. She has had no fever, sweats, chills. No nausea or vomiting. No pain or swelling in her legs. At triage she apparently reported that she had worsening pain with urination but she denies any urinary symptoms when I spoke to her. Related Data Home Medications ?Medication ?Instructions ?Recorded ?Confirmed blood pressure test kit-large #1 ea 06/02/24 03/06/25 fluticasone propionate 220 2 puff inhalation BID 01/18/25 03/06/25 mcg/actuation HFA aerosol inhaler Previous Rx's ?Medication ?Instructions ?Recorded albuterol sulfate 90 mcg/actuation 2 inh PO Q4H PRN shortness of 08/13/20 aerosol inhaler breath or wheezing #8.5 grams docusate sodium 100 mg capsule 100 mg PO BID #30 caps 12/07/22 (Col-Rite) blood sugar diagnostic (FreeStyle #50 ea 02/10/23 Lite Strips) blood-glucose meter (FreeStyle #1 ea 02/10/23 Lite Meter kit) lancets 28 gauge (FreeStyle #100 ea 02/10/23 Lancets) cock up splint #1 ea 03/03/23 metformin 1,000 mg tablet 1,000 mg PO BID 90 days #180 tabs 06/29/23 blood pressure monitor #1 ea 02/07/24 nabumetone 750 mg tablet 750 mg PO BID 30 days #60 tabs 03/30/24 rosuvastatin 10 mg tablet 10 mg PO DAILY 90 days #90 tabs 04/20/24 sennosides 8.6 mg tablet (senna) 8.6 mg PO BEDTIME PRN constipation 04/20/24 7 days #7 tabs ibuprofen 600 mg tablet 600 mg PO Q8H PRN pain #14 tabs 04/23/24 meclizine 50 mg tablet 50 mg PO DAILY PRN motion sickness 04/23/24 #14 tabs gabapentin 300 mg capsule 300 mg PO TID pain 30 days #90 caps 07/06/24 albuterol sulfate 2.5 mg/3 mL 2.5 mg (3 mL) inhalation Q4-6H PRN 08/30/24 (0.083 %) solution for nebulization shortness of breath or wheezing 30 days #90 mL losartan 100 mg tablet 100 mg PO DAILY hypertension 30 10/26/24 days #30 tabs fluticasone propionate 110 2 puff inhalation BID Asthma/Cough 01/18/25 mcg/actuation HFA aerosol inhaler 30 days #12 grams ipratropium 0.5 mg-albuterol 3 mg 3 ml inhalation Q6H PRN wheezing 02/09/25 (2.5 mg base)/3 mL nebulization #180 mL soln omeprazole 20 mg capsule,delayed 20 mg PO DAILY #90 caps 02/13/25 release Orencia ClickJect 125 mg/mL 125 mg subcut QWEEK #4 mL 02/27/25 subcutaneous auto-injector (abatacept) dicyclomine 20 mg tablet 20 mg PO TID PRN abdominal pain 30 03/06/25 days #90 tabs dulaglutide 1.5 mg/0.5 mL 1.5 mg (0.5 mL) subcut QWEEK 4 03/06/25 subcutaneous pen injector weeks #2 mL (Trulicity) acetaminophen 500 mg capsule 1,000 mg (2 x 500 mg) PO Q8H PRN 03/13/25 fever or pain #14 caps ibuprofen 400 mg tablet 400 mg PO Q6H PRN pain #14 tabs 03/13/25 tramadol 50 mg tablet 50 mg PO Q8H PRN pain #12 tabs 03/13/25 Allergies Allergy/AdvReac Type Severity Reaction Status Date / Time cyclobenzaprine Allergy Intermediate Dizziness Verified 03/13/25 12:52 [From Flexeril] orphenadrine [From Norflex] Allergy Intermediate Dizziness Verified 03/13/25 12:52 sarilumab [From Kevzara] Allergy Intermediate Rash Verified 03/13/25 12:52 Review of Systems 2 Review of Systems: Yes all other systems are reviewed and are negative [facility] Past Medical History Medical History Urinary tract infection Bronchitis Morbid obesity with BMI of 45.0-49.9, adult Sacroiliitis Rheumatic fever TIA (transient ischemic attack) Right-sided back pain History of COVID-19 Asthma exacerbation Hospital discharge follow-up Sacroiliitis Renal calculi Costovertebral angle tenderness Burning with urination Disc degeneration, lumbar Spondylosis of cervical spine Spondylosis of lumbar spine Pleuritic pain Restrictive lung disease Morbid obesity Asthma Dyslipidemia Essential hypertension Vaginal modesta Seropositive rheumatoid arthritis Rheumatoid arthritis Diabetes Surgical History History of cholecystectomy Hx of colonoscopy (09/01/19) History of surgery on wrist Family History Family History Father Diabetes mellitus Myocardial infarction Hypertension CVD (cardiovascular disease) Mother Diabetes mellitus CVD (cardiovascular disease) Sister No problems noted. Son No problems noted. Son No problems noted. Son No problems noted. Daughter Thyroiditis Daughter No problems noted. Daughter No problems noted. Daughter No problems noted. Daughter No problems noted. Other Asthma exacerbation Social History Social History Housing: Apartment Alcohol intake: never Patient Tobacco Use Status: Never used Tobacco Tobacco use type: Cigarette Smoked in Last 30 Days: No e-Cigarette/Vaping Use: Never Used Second Hand Smoke Exposure: No Use of substances other than those prescribed or required for medical reasons: No Advance Directives: No Advance Directives Information Provided: No service: No Current occupational status: disabled Sexual orientation: Straight/Heterosexual Gender identity: Female Cognitive needs: No Hearing needs: No Vision needs: No Physical Exam ED Vital Signs: Vital Signs - 24 hr 03/13/25 12:50 03/13/25 19:20 03/13/25 19:21 Temperature 97.2 F 98.1 F Pulse Rate 72 70 Respiratory Rate 16 18 Blood Pressure 124/70 171/65 H 180/77 H Pulse Oximetry 98 99 Oxygen Delivery Method Room Air Room Air 03/13/25 20:49 Temperature 98.3 F Pulse Rate 62 Respiratory Rate 16 Blood Pressure 177/75 H Pulse Oximetry 96 Oxygen Delivery Method Room Air BMI result Body Mass Index 43.5 Const Other: The patient is awake and alert. She does not appear in distress. Orientation/consciousness: patient oriented x3 HENMT Other: Face is symmetrical. Mucous membranes moist. Eyes General: appearance normal, both eyes and all related structures Neck Neck: Yes normal visual inspection, Yes full ROM and Yes no JVD Chest Other: The patient's right lower chest wall seems exquisitely tender and palpation seems to reproduce her pain very easily. Resp Effort & Inspection: normal respiratory effort Auscultation: clear to auscultation bilaterally Cardio Rate: regular rate Rhythm: regular rhythm Heart sounds: S1 normal heart sound present and S2 normal heart sound present GI Other: The abdomen is soft and seems nontender Skin Other: skin is dry and unremarkable Neuro General: patient oriented x3, gait normal, tone normal, moves all extremities, no focal motor deficits and CN's II-XI intact bilaterally Extrem Other: no calf swelling or tenderness or asymmetry, no edema Course Course Course Narrative: RME, this is a rapid medical exam performed by Uvaldo Fitch please refer to primary provider for complete H&P- 65-year-old female presents for evaluation abdominal pain, right-sided that is worse with urinating. Plan for labs, urinalysis. Will defer any potential advanced imaging Medications Administered Discontinued Medications Generic Name Dose Route Start Last Admin Trade Name Freq PRN Reason Stop Dose Admin Acetaminophen 975 mg 03/13/25 19:37 03/13/25 20:03 Acetaminophen 325 Mg Tablet PO 03/13/25 19:38 975 mg ONCE ONE Administration Ketorolac Tromethamine 30 mg 03/13/25 19:37 03/13/25 20:02 Ketorolac Tromethamine 30 Mg/Ml Vial IM 03/13/25 19:38 30 mg ONCE ONE Administration Medical Decision Making Medical Decision Making [facility] Narrative: The patient is a 65-year-old woman who presents complaining of pain on her right side. She says that this is the same pain that she has had for several weeks and for which she has had 2 previous emergency room visits. she says that she has also been seen at her PCP's office. Clinically the patient is not look particularly unwell. Her vital signs are very reassuring. She is not tachycardic. On her physical exam her pain seems to be consistent with chest wall pain. Palpation of her lower right ribs, particularly in the region of the axillary line, seems to very easily reproduce her pain. She is exquisitely tender to gentle palpation of the right lower ribs. She has a negative chest x-ray. Her EKG showed sinus rhythm with a first-degree AV block at 60 beats per minute and was essentially a normal EKG. her laboratory testing today is unremarkable. She has previously had a CT of her abdomen recently to look for kidney stones. There were no kidney stones. Given that clinically this seems to be musculoskeletal pain I think she may be discharged. She will be given prescriptions for acetaminophen, ibuprofen, and a small amount of tramadol. Lab Data 03/13/25 13:59 03/13/25 13:59 Labs: Lab Results 03/13/25 03/13/25 Range/Units 13:59 14:09 WBC 7.2 (4.8-10.8) X10*3/uL RBC 4.41 (4.20-5.50) X10*6/uL Hgb 14.0 (12.0-16.0) g/dl Hct 40.4 (37.0-47.0) % MCV 91.6 (80.0-98.0) fL MCH 31.7 (27.0-33.0) pg MCHC 34.7 (31.0-35.0) g/dl RDW 11.8 (11.0-16.0) % Plt Count 177 (160-400) X10*3/uL MPV 10.9 (9.4-12.3) fL Immature Gran % (Auto) 0.4 (0.0-0.4) % Neut % (Auto) 53.0 (45-73) % Lymph % (Auto) 32.8 (20-40) % Wheeler % (Auto) 6.5 (2-11) % Eos % (Auto) 6.6 H (0-4) % Baso % (Auto) 0.7 (0-2) % Lymph # (Auto) 2.4 (1.2-4.9) X10*3/uL Wheeler # (Auto) 0.5 (0.1-1.2) X10*3/uL Eos # (Auto) 0.5 H (0.0-0.4) X10*3/uL Baso # (Auto) 0.1 (0.0-0.2) X10*3/uL Abs Immat Gran (auto) 0.03 (0.00-0.03) X10*3/uL Absolute Neuts (auto) 3.8 (2.0-8.3) x10*3/uL Absolute Nucleated RBC 0.000 (0.0-0.012) X10*3/uL Nucleated RBC % (auto) 0.0 (0.0-0.2) /100WBC Sodium 143 (135-145) mmol/L Potassium 4.2 (3.3-5.1) mmol/L Chloride 108 (96-108) mmol/L Carbon Dioxide 31 H (22-29) mmol/L Anion Gap 8 L (12-20) BUN 13 (9-16) mg/dL Creatinine 0.76 (0.5-1.4) mg/dL Estim Creat Clear Calc 82.0 Estimated GFR > 60 Random Glucose 106 (60-115) mg/dL Calcium 9.3 (8.4-10.2) mg/dL Total Bilirubin 0.6 (0.0-1.0) mg/dL AST 26 (5-31) U/L ALT 23 (0-31) U/L Alkaline Phosphatase 86 (39-117) U/L Total Protein 6.8 (6.5-8.0) g/dL Albumin 3.9 (3.5-5.0) g/dL Urine Color Yellow Urine Appearance Clear Urine pH 8.5 (5.0-9.0) Ur Specific [place] 1.020 (1.005-1.025) Urine Protein Negative (Neg-Trace) mg/dL Urine Glucose (UA) Negative (Negative) mg/dL Urine Ketones Negative (Negative) mg/dL Urine Blood Negative (Negative) Urine Nitrite Negative (Negative) Ur Leukocyte Esterase Negative (Negative) Urine RBC 0-2 (0-2) /HPF Urine WBC 0-5 (0-5) /HPF Ur Squamous Epith Cells 0-2 (0-2) /HPF Urine Bacteria None Seen (None Seen) Hyaline Casts 0-2 (0-2) /LPF Independent Interpretation I performed an independent interpretation of an: EKG Interpretation: EKG at 20:19 shows sinus rhythm with first-degree AV block at 60 beats per minute. It is an otherwise normal EKG. Discharge Plan Discharge Clinical Impression: Right-sided chest wall pain Patient Disposition: Home, Self-Care Instructions: Chest Wall Pain (ED) Additional Instructions: I think your pain seems to be coming from the right side of your chest wall. You seem very tender in the region of your right lower ribs.. Please use acetaminophen as prescribed as needed for pain. Also ibuprofen. You may try very occasional doses of tramadol. I have sent a prescription for this pain medication to your pharmacy as well. Please contact your regular doctor's office in the morning to make a follow up appointment to discuss ongoing management of what seems to be a chronic source of pain. Return to the emergency room if you develop a fever or shortness of breath. Prescriptions: New ibuprofen 400 mg tablet 400 mg PO Q6H PRN (Reason: pain) Qty: 14 0RF acetaminophen 500 mg capsule 1,000 mg PO Q8H PRN (Reason: fever or pain) Qty: 14 0RF tramadol 50 mg tablet 50 mg PO Q8H PRN (Reason: pain) Qty: 12 0RF No Action albuterol sulfate 90 mcg/actuation HFA aerosol inhaler 2 inh PO Q4H PRN (Reason: shortness of breath or wheezing) Qty: 8.5 1RF (DME) FreeStyle Lite Strips Strip See Rx Instructions .ROUTE .MEDSUPPLY Qty: 50 11RF Rx Instructions: Use 1 test strip once a day (DME) blood-glucose meter [FreeStyle Lite Meter] Kit See Rx Instructions .ROUTE .MEDSUPPLY Qty: 1 0RF Rx Instructions: E11.9 ONCE A DAY (DME) lancets [FreeStyle Lancets] 28 gauge misc See Rx Instructions .ROUTE .MEDSUPPLY Qty: 100 11RF Rx Instructions: Use 1 lancet once a day as needed (DME) blood pressure monitor Kit See Rx Instructions .Route Qty: 1 0RF Rx Instructions: As directed rosuvastatin 10 mg tablet 10 mg PO DAILY 90 Days Qty: 90 1RF albuterol sulfate 2.5 mg /3 mL (0.083 %) solution for nebulization 2.5 mg inhalation Q4-6H PRN (Reason: shortness of breath or wheezing) 30 Days Qty: 90 2RF ipratropium-albuterol 0.5 mg-3 mg(2.5 mg base)/3 mL solution for nebulization 3 ml inhalation Q6H PRN (Reason: wheezing) Qty: 180 0RF omeprazole 20 mg capsule,delayed release(DR/EC) 20 mg PO DAILY Qty: 90 0RF Orencia ClickJect 125 mg/mL auto-injector 125 mg subcut QWEEK Qty: 4 4RF docusate sodium [Col-Rite] 100 mg capsule 100 mg PO BID Qty: 30 0RF meclizine 50 mg tablet 50 mg PO DAILY PRN (Reason: motion sickness) Qty: 14 0RF ibuprofen 600 mg tablet 600 mg PO Q8H PRN (Reason: pain) Qty: 14 0RF sennosides [senna] 8.6 mg tablet 8.6 mg PO BEDTIME PRN (Reason: constipation) 7 Days Qty: 7 0RF nabumetone 750 mg tablet 750 mg PO BID 30 Days Qty: 60 6RF metformin 1,000 mg tablet 1,000 mg PO BID 90 Days Qty: 180 1RF (DME) blood pressure test kit-large Kit See Rx Instructions .ROUTE .MEDSUPPLY Qty: 1 Rx Instructions: As directed Trulicity 1.5 mg/0.5 mL pen injector 1.5 mg subcut QWEEK 28 Days Qty: 2 5RF dicyclomine 20 mg tablet 20 mg PO TID PRN (Reason: abdominal pain) 30 Days Qty: 90 0RF fluticasone propionate 220 mcg/actuation HFA aerosol inhaler 2 puff inhalation BID fluticasone propionate 110 mcg/actuation HFA aerosol inhaler 2 puff inhalation BID 30 Days Qty: 12 5RF Rx Instructions: administer with spacer (DME) cock up splint See Rx Instructions .Route .MEDSUPPLY Qty: 1 0RF Rx Instructions: wear on the right wrist at night gabapentin 300 mg capsule 300 mg PO TID 30 Days Qty: 90 6RF losartan 100 mg tablet 100 mg PO DAILY 30 Days Qty: 30 4RF albuterol sulfate 2.5 mg /3 mL (0.083 %) solution for nebulization 2.5 mg inhalation ONCE Qty: 3 0RF Print Language: Burmese
[2025-03-13 14:02] LABS: MANUAL DIFF FLAG NO
[2025-03-13 14:05] LABS: Basophils Absolute Auto 0.1 X10*3/uL (0.0-0.2); Basophils Percent Auto 0.7 % (0-2); Eosinophils Absolute Auto 0.5 X10*3/uL (0.0-0.4); Eosinophils Percent Auto 6.6 % (0-4); Hematocrit 40.4 % (37.0-47.0); Imm Gran Abs Auto 0.03 X10*3/uL (0.00-0.03); Imm Gran Pct Auto 0.4 % (0.0-0.4); Lymphocytes Absolute Auto 2.4 X10*3/uL (1.2-4.9); Lymphocytes Percent Auto 32.8 % (20-40); Mean Corpuscular HGB Conc 34.7 g/dl (31.0-35.0); Mean Corpuscular Hemoglobin 31.7 pg (27.0-33.0); Mean Corpuscular Volume 91.6 fL (80.0-98.0); Mean Platelet Volume 10.9 fL (9.4-12.3); Monocytes Absolute Auto 0.5 X10*3/uL (0.1-1.2); Monocytes Percent Auto 6.5 % (2-11); Neutrophils Absolute Auto 3.8 x10*3/uL (2.0-8.3); Platelet Count 177 X10*3/uL (160-400); Red Blood Count 4.41 X10*6/uL (4.20-5.50); Red Cell Distribution Width 11.8 % (11.0-16.0); White Blood Count 7.2 X10*3/uL (4.8-10.8)
[2025-03-13 14:18] LABS: Appearance Urine Clear; Color Urine Yellow; Glucose Urine UA Negative (Negative); Leukocyte Esterase Urine Negative (Negative); Nitrite Urine Negative (Negative); PH 8.5 (5.0-9.0); Urine Blood Negative (Negative); Urine Ketones Negative (Negative); Urine Protein Negative (Neg-Trace)
[2025-03-13 14:23] LABS: Bacteria Urine None Seen (None Seen); Hyaline Casts Urine 0-2 /LPF (0-2); RBC Urine 0-2 /HPF (0-2); Squamous Epithelial Cell Urine 0-2 /HPF (0-2); WBC Urine 0-5 /HPF (0-5)
[2025-03-13 14:24] LABS: Alanine Aminotransferase 23 U/L (0-31); Albumin Level 3.9 g/dL (3.5-5.0); Alkaline Phosphatase 86 U/L (39-117); Anion Gap 8 (12-20); Aspartate Amino Transferase 26 U/L (5-31); Bilirubin Total 0.6 mg/dL (0.0-1.0); Blood Urea Nitrogen 13 mg/dL (9-16); Calcium 9.3 mg/dL (8.4-10.2); Carbon Dioxide 31 mmol/L (22-29); Chloride 108 mmol/L (96-108); Estimated Glomerular Filt Rate > 60; Glucose Random 106 mg/dL (60-115); Potassium 4.2 mmol/L (3.3-5.1); Sodium 143 mmol/L (135-145); Total Protein 6.8 g/dL (6.5-8.0)
[2025-03-13 19:20] VITALS: BP 171/65; PULSE 70; RESP 18; TEMP 36.7; O2SAT 99
[2025-03-13 19:21] VITALS: BP 180/77
--- NOTE | 2025-03-13 19:48 | ECG_ITS ---
Test Reason : chest wall pain Blood Pressure : */* mmHG Vent. Rate : 60 BPM Atrial Rate : 60 BPM P-R Int : 220 ms QRS Dur : 96 ms QT Int : 406 ms P-R-T Axes : -9 4 45 degrees QTcB Int : 406 ms Sinus rhythm with 1st degree A-V block Otherwise normal ECG When compared with ECG of 27-Feb-2025 10:48, No significant change was found Referred By: Kwabena Diaz Electronically Signed By: DEXTER BOWSER
[2025-03-13] MEDS: Ketorolac Tromethamine 30 MG/ML VIAL IM (20:02)
[2025-03-13] MEDS: Acetaminophen 325 MG TABLET 975 MG PO (20:03)
[2025-03-13 20:49] VITALS: BP 177/75; PULSE 62; RESP 16; TEMP 36.8; O2SAT 96
== END 2025-03-14 07:00 | disposition home or self-care (01) ==
PROVIDERS: Physician Assistant; Emergency Provider Emergency Medicine; PCP Internal Medicine
DX: R07.89 Other chest pain (principal); E11.9 Type 2 diabetes mellitus without complications; I10 Essential (primary) hypertension; E78.5 Hyperlipidemia, unspecified; J45.909 Unspecified asthma, uncomplicated; Z79.02 Long term (current) use of antithrombotics/antiplatelets; Z79.899 Other long term (current) drug therapy; Z79.84 Long term (current) use of oral hypoglycemic drugs
CPT/HCPCS: 36415; 71046; 80053; 81001; 85025; 93005; 96372; 99284; 99285; J1885

== ENCOUNTER → 2025-03-13 19:37 | Outpatient (BNV) | payer MEDICARE, MEDICAID, SELFPAY | PROVIDERS: Emergency Provider Emergency Medicine; PCP Internal Medicine; Visit Provider Student in an Organized Health Care Education/Training Program | DX: R07.9 Chest pain, unspecified (principal) | CPT/HCPCS: 71046 ==

== ENCOUNTER → 2025-03-13 19:48 | Outpatient (BNV) | payer MEDICARE, MEDICAID, SELFPAY | PROVIDERS: Emergency Provider Emergency Medicine; PCP Internal Medicine; Visit Provider Internal Medicine | DX: I44.0 Atrioventricular block, first degree (principal) | CPT/HCPCS: 93010 ==

== ENCOUNTER 2025-03-20 08:05 | Emergency (ER) | payer MEDICARE, MEDICAID, SELFPAY ==
--- NOTE | ~2025-03-20 | CT_ITS ---
EXAMINATION: CT ABDOMEN PELVIS WITH IV CONTRAST HISTORY: abd pain, n/v/d COMPARISON: Comparison is made with the prior examination dated 02/09/2025. TECHNIQUE: CT scan of the abdomen and pelvis was performed following administration of 85 mL Omnipaque 350 using standard departmental protocol. Coronal and sagittal reformatted images were generated and reviewed. Oral contrast material was not administered at the request of the referring physician. This CT exam was performed with one or more of the following dose reduction techniques: automated exposure control, adjustment of the mA and/or kV according to patient size, use of iterative reconstruction technique. DLP: 880 mGy-cm FINDINGS: LOWER CHEST: Again seen are patchy groundglass opacities at the lung bases. There is no pleural effusion. CARDIOVASCULATURE: The heart is normal in size. There is no pericardial effusion. LIVER: The liver is normal in size and contour. No liver mass is identified. The hepatic and portal veins are patent. GALLBLADDER / BILE DUCTS: The gallbladder is surgically absent. There is no intra or extrahepatic biliary ductal dilatation. SPLEEN: The spleen is normal in size. No focal splenic lesion is identified. PANCREAS: The pancreas is unremarkable in appearance. ADRENAL GLANDS: Within normal limits. KIDNEYS/RETROPERITONEUM: No renal calculi are identified. There is no hydronephrosis. No renal masses are identified. LYMPH NODES: No abdominal or pelvic lymphadenopathy. VASCULATURE: The abdominal aorta is normal in caliber. MESENTERY/PERITONEUM: No free fluid. No masses. There is no free intraperitoneal gas. STOMACH: The stomach is collapsed, limiting evaluation. SMALL BOWEL: The small bowel is normal in caliber. COLON: The colon is unremarkable. APPENDIX: Normal. URINARY BLADDER/PELVIC ORGANS: The urinary bladder is unremarkable. The uterus and ovaries are unremarkable. BONES / SOFT TISSUES: There is a small fat-containing umbilical hernia. There is degenerative disc disease of the spine. CT/CT abdomen pelvis w IV con IMPRESSION: No acute abnormality is identified. Electronically signed by: Spencer Sanders MD 03/20/2025 01:55 PM EDT
[2025-03-20 08:31] VITALS: BP 153/60; PULSE 65; RESP 18; TEMP 36.4; O2SAT 98; BMI 43.5
[2025-03-20 08:58] LABS: MANUAL DIFF FLAG NO
[2025-03-20 09:00] LABS: Basophils Percent Auto 0.6 % (0-2); Eosinophils Absolute Auto 0.5 X10*3/uL (0.0-0.4); Eosinophils Percent Auto 7.4 % (0-4); Hematocrit 43.8 % (37.0-47.0); Hemoglobin 15.1 g/dl (12.0-16.0); Imm Gran Abs Auto 0.02 X10*3/uL (0.00-0.03); Imm Gran Pct Auto 0.3 % (0.0-0.4); Lymphocytes Percent Auto 28.8 % (20-40); Mean Corpuscular HGB Conc 34.5 g/dl (31.0-35.0); Mean Corpuscular Hemoglobin 31.7 pg (27.0-33.0); Mean Corpuscular Volume 91.8 fL (80.0-98.0); Mean Platelet Volume 11.6 fL (9.4-12.3); Monocytes Absolute Auto 0.4 X10*3/uL (0.1-1.2); Monocytes Percent Auto 6.4 % (2-11); Neutrophils Absolute Auto 3.9 x10*3/uL (2.0-8.3); Neutrophils Percent Auto 56.5 % (45-73); Platelet Count 183 X10*3/uL (160-400); Red Blood Count 4.77 X10*6/uL (4.20-5.50); Red Cell Distribution Width 11.8 % (11.0-16.0); White Blood Count 6.9 X10*3/uL (4.8-10.8)
[2025-03-20 09:19] LABS: Alanine Aminotransferase 25 U/L (0-31); Alkaline Phosphatase 89 U/L (39-117); Anion Gap 11 (12-20); Aspartate Amino Transferase 36 U/L (5-31); Bilirubin Direct 0.2 mg/dL (0.0-0.5); Bilirubin Total 0.6 mg/dL (0.0-1.0); Blood Urea Nitrogen 13 mg/dL (9-16); Calcium 9.3 mg/dL (8.4-10.2); Carbon Dioxide 21 mmol/L (22-29); Chloride 114 mmol/L (96-108); Creatinine Clr Calc Pharmacy 97.4; Estimated Glomerular Filt Rate > 60; Glucose Random 106 mg/dL (60-115); Potassium 4.5 mmol/L (3.3-5.1); Sodium 141 mmol/L (135-145); Total Protein 7.4 g/dL (6.5-8.0)
[2025-03-20 11:22] LABS: Appearance Urine Clear; Color Urine Yellow; Glucose Urine UA Negative (Negative); Leukocyte Esterase Urine Negative (Negative); Nitrite Urine Negative (Negative); Urine Blood Negative (Negative); Urine Ketones Negative (Negative); Urine Protein Negative (Neg-Trace)
--- NOTE | 2025-03-20 11:42 | ED_ITS ---
HPI - Abdominal Pain General Chief Complaint: Abdominal Pain Stated Complaint: Abd pain, diarrhea Time Seen by Provider: 03/20/25 11:04 History of Present Illness HPI narrative: Patient is 65 years old presents today with abdominal pain that is been ongoing for days. History of having something similar about a week ago. Patient complaining of some diarrhea associated with it. It is yellow status post cholecystectomy many years ago. History of diabetes no chest pain or shortness of breath the pain over the abdomen is diffuse over the entire abdomen. History of having fatty liver history of abdominal pain in the past. There is no vaginal discharge. There is no fever no chills. There is no pain on urination. There is no coughing no congestion or upper respiratory symptoms. Has a history of rheumatoid arthritis currently not on steroids. No recent travel no recent antibiotics. Related Data Home Medications ?Medication ?Instructions ?Recorded ?Confirmed blood pressure test kit-large #1 ea 06/02/24 03/06/25 fluticasone propionate 220 2 puff inhalation BID 01/18/25 03/06/25 mcg/actuation HFA aerosol inhaler Previous Rx's ?Medication ?Instructions ?Recorded albuterol sulfate 90 mcg/actuation 2 inh PO Q4H PRN shortness of 08/13/20 aerosol inhaler breath or wheezing #8.5 grams docusate sodium 100 mg capsule 100 mg PO BID #30 caps 12/07/22 (Col-Rite) blood sugar diagnostic (FreeStyle #50 ea 02/10/23 Lite Strips) blood-glucose meter (FreeStyle #1 ea 02/10/23 Lite Meter kit) lancets 28 gauge (FreeStyle #100 ea 02/10/23 Lancets) cock up splint #1 ea 03/03/23 metformin 1,000 mg tablet 1,000 mg PO BID 90 days #180 tabs 06/29/23 blood pressure monitor #1 ea 02/07/24 nabumetone 750 mg tablet 750 mg PO BID 30 days #60 tabs 03/30/24 rosuvastatin 10 mg tablet 10 mg PO DAILY 90 days #90 tabs 04/20/24 sennosides 8.6 mg tablet (senna) 8.6 mg PO BEDTIME PRN constipation 04/20/24 7 days #7 tabs ibuprofen 600 mg tablet 600 mg PO Q8H PRN pain #14 tabs 04/23/24 meclizine 50 mg tablet 50 mg PO DAILY PRN motion sickness 04/23/24 #14 tabs gabapentin 300 mg capsule 300 mg PO TID pain 30 days #90 caps 07/06/24 albuterol sulfate 2.5 mg/3 mL 2.5 mg (3 mL) inhalation Q4-6H PRN 08/30/24 (0.083 %) solution for nebulization shortness of breath or wheezing 30 days #90 mL losartan 100 mg tablet 100 mg PO DAILY hypertension 30 10/26/24 days #30 tabs fluticasone propionate 110 2 puff inhalation BID Asthma/Cough 01/18/25 mcg/actuation HFA aerosol inhaler 30 days #12 grams ipratropium 0.5 mg-albuterol 3 mg 3 ml inhalation Q6H PRN wheezing 02/09/25 (2.5 mg base)/3 mL nebulization #180 mL soln omeprazole 20 mg capsule,delayed 20 mg PO DAILY #90 caps 02/13/25 release dicyclomine 20 mg tablet 20 mg PO TID PRN abdominal pain 30 03/06/25 days #90 tabs dulaglutide 1.5 mg/0.5 mL 1.5 mg (0.5 mL) subcut QWEEK 4 03/06/25 subcutaneous pen injector weeks #2 mL (Trulicity) acetaminophen 500 mg capsule 1,000 mg (2 x 500 mg) PO Q8H PRN 03/13/25 fever or pain #14 caps ibuprofen 400 mg tablet 400 mg PO Q6H PRN pain #14 tabs 03/13/25 tramadol 50 mg tablet 50 mg PO Q8H PRN pain #12 tabs 03/13/25 Orencia ClickJect 125 mg/mL 125 mg subcut QWEEK #4 mL 03/15/25 subcutaneous auto-injector (abatacept) ondansetron 4 mg disintegrating 4 mg PO TID PRN nausea and 03/20/25 tablet vomiting 5 days #10 tabs Allergies Allergy/AdvReac Type Severity Reaction Status Date / Time cyclobenzaprine Allergy Intermediate Dizziness Verified 03/20/25 08:32 [From Flexeril] orphenadrine [From Norflex] Allergy Intermediate Dizziness Verified 03/20/25 08:32 sarilumab [From Kevzara] Allergy Intermediate Rash Verified 03/20/25 08:32 Review of Systems Review of Systems Positive diarrhea Yes all other systems are reviewed and are negative PMFSH Past Medical History Attestation statement: The following information was validated with the patient. Medical History Urinary tract infection Bronchitis Morbid obesity with BMI of 45.0-49.9, adult Sacroiliitis Rheumatic fever TIA (transient ischemic attack) Right-sided back pain History of COVID-19 Asthma exacerbation Hospital discharge follow-up Sacroiliitis Renal calculi Costovertebral angle tenderness Burning with urination Disc degeneration, lumbar Spondylosis of cervical spine Spondylosis of lumbar spine Pleuritic pain Restrictive lung disease Morbid obesity Asthma Dyslipidemia Essential hypertension Vaginal modesta Seropositive rheumatoid arthritis Rheumatoid arthritis Diabetes Surgical History History of cholecystectomy Hx of colonoscopy (09/01/19) History of surgery on wrist Family History Family History Father Diabetes mellitus Myocardial infarction Hypertension CVD (cardiovascular disease) Mother Diabetes mellitus CVD (cardiovascular disease) Sister No problems noted. Son No problems noted. Son No problems noted. Son No problems noted. Daughter Thyroiditis Daughter No problems noted. Daughter No problems noted. Daughter No problems noted. Daughter No problems noted. Other Asthma exacerbation Social History Social History Housing: Apartment Alcohol intake: never Patient Tobacco Use Status: Never used Tobacco Tobacco use type: Cigarette e-Cigarette/Vaping Use: Never Used Second Hand Smoke Exposure: No Use of substances other than those prescribed or required for medical reasons: No Any prior treatment program specific to substance use: No Advance Directives: No Advance Directives Information Provided: No service: No Current occupational status: disabled Sexual orientation: Straight/Heterosexual Gender identity: Female Cognitive needs: No Hearing needs: No Vision needs: No Physical Exam ED Vital Signs: Vital Signs - 24 hr 03/20/25 08:31 03/20/25 12:22 03/20/25 13:28 Temperature 97.6 F 97.5 F Pulse Rate 65 60 54 Respiratory Rate 18 18 16 Blood Pressure 153/60 H 134/64 115/57 L Pulse Oximetry 98 99 100 Oxygen Delivery Method Room Air Room Air Room Air BMI result Body Mass Index 43.5 Appearance: Alert. Oriented X3. No acute distress. Eyes: Pupils equal, round and reactive to light. ENT: Pharynx normal. Neck: Normal inspection. Neck supple. No lymph nodes noted. No crepitus CVS: Normal heart rate and rhythm. Pulses normal. Normal S1 and S2 Respiratory: No respiratory distress. Breath sounds normal. No Wheezing. No rales Abdomen: Soft and nontender. No rigidity. No distention. good BS x4 Skin: Skin warm and dry. Normal skin color. Normal skin turgor. Extremities: No lower extremity edema. Neurovascular intact to all extremities. No Lacerations. No Rash Neuro: Oriented X 3. No motor deficit. No sensory deficit. Moving all extermities. No slurred speech Medical Decision Making Medical Decision Making [facility] Narrative: Positive diarrhea generalized malaise weakness nausea. Patient's labs are unremarkable. CT scan of the abdomen pelvis was negative for obstruction abscess perforation. White count was normal. Hemoglobin is 15. LFTs normal. Urine showed no signs of infection. Will discharge patient home close follow-up on an outpatient basis. Differential Diagnosis Differential Diagnoses: The differential diagnosis associated with the presentation includes Diarrhea, gastroenteritis, obstruction Admission/Observation Consideration of admission/observation: Escalation of care including admission/observation considered Lab Data [facility] Lab Attestation statement: I reviewed the patient's lab results. 03/20/25 08:44 03/20/25 08:44 Labs: Lab Results 03/20/25 03/20/25 Range/Units 08:44 11:15 WBC 6.9 (4.8-10.8) X10*3/uL RBC 4.77 (4.20-5.50) X10*6/uL Hgb 15.1 (12.0-16.0) g/dl Hct 43.8 (37.0-47.0) % MCV 91.8 (80.0-98.0) fL MCH 31.7 (27.0-33.0) pg MCHC 34.5 (31.0-35.0) g/dl RDW 11.8 (11.0-16.0) % Plt Count 183 (160-400) X10*3/uL MPV 11.6 (9.4-12.3) fL Immature Gran % (Auto) 0.3 (0.0-0.4) % Neut % (Auto) 56.5 (45-73) % Lymph % (Auto) 28.8 (20-40) % [place] % (Auto) 6.4 (2-11) % Eos % (Auto) 7.4 H (0-4) % Baso % (Auto) 0.6 (0-2) % Lymph # (Auto) 2.0 (1.2-4.9) X10*3/uL [place] # (Auto) 0.4 (0.1-1.2) X10*3/uL Eos # (Auto) 0.5 H (0.0-0.4) X10*3/uL Baso # (Auto) 0.0 (0.0-0.2) X10*3/uL Abs Immat Gran (auto) 0.02 (0.00-0.03) X10*3/uL Absolute Neuts (auto) 3.9 (2.0-8.3) x10*3/uL Absolute Nucleated RBC 0.000 (0.0-0.012) X10*3/uL Nucleated RBC % (auto) 0.0 (0.0-0.2) /100WBC Sodium 141 (135-145) mmol/L Potassium 4.5 (3.3-5.1) mmol/L Chloride 114 H (96-108) mmol/L Carbon Dioxide 21 L (22-29) mmol/L Anion Gap 11 L (12-20) BUN 13 (9-16) mg/dL Creatinine 0.64 (0.5-1.4) mg/dL Estim Creat Clear Calc 97.4 Estimated GFR > 60 Random Glucose 106 (60-115) mg/dL Calcium 9.3 (8.4-10.2) mg/dL Total Bilirubin 0.6 (0.0-1.0) mg/dL Direct Bilirubin 0.2 (0.0-0.5) mg/dL AST 36 H (5-31) U/L ALT 25 (0-31) U/L Alkaline Phosphatase 89 (39-117) U/L Total Protein 7.4 (6.5-8.0) g/dL Albumin 4.0 (3.5-5.0) g/dL Urine Color Yellow Urine Appearance Clear Urine pH 5.0 (5.0-9.0) Ur Specific [place] 1.020 (1.005-1.025) Urine Protein Negative (Neg-Trace) mg/dL Urine Glucose (UA) Negative (Negative) mg/dL Urine Ketones Negative (Negative) mg/dL Urine Blood Negative (Negative) Urine Nitrite Negative (Negative) Ur Leukocyte Esterase Negative (Negative) Independent Interpretation I performed an independent interpretation of an: CT Scan (Grossly negative) Radiology Impression Discussion of test interpretation with radiology: I have reviewed the radiologist's reading. External Record Review External record reviewed: Office record Chronic Conditions Diarrhea, asthma, hyperlipidemia, rheumatoid arthritis Social Determinants Patient?s care significantly limited by Social Determinants of Health including: Problems related to primary support group Medications Administered Discontinued Medications Generic Name Dose Route Start Last Admin Trade Name Freq PRN Reason Stop Dose Admin Sodium Chloride 1,000 mls @ 999 mls/hr 03/20/25 11:30 03/20/25 12:20 Ns IV 03/20/25 12:30 999 mls/hr .Q1H1M JARRET Administration Iohexol 100 ml 03/20/25 13:41 03/20/25 13:41 Iohexol 350 Mg/Ml 100 Ml Infus..Btl IV 03/20/25 13:42 85 ml ONCE ONE Administration Ketorolac Tromethamine 15 mg 03/20/25 11:23 03/20/25 12:18 Ketorolac Tromethamine 15 Mg/Ml Vial IVPUSH 03/20/25 11:24 15 mg ONCE ONE Administration Ondansetron HCl 4 mg 03/20/25 11:23 03/20/25 12:18 Ondansetron Hcl 4 Mg/2 Ml Vial IVPUSH 03/20/25 11:24 4 mg ONCE ONE Administration Discharge Plan Discharge Clinical Impression: Diarrhea Patient Disposition: Home, Self-Care Instructions: Acute Diarrhea (ED) Prescriptions: New ondansetron 4 mg tablet,disintegrating 4 mg PO TID PRN (Reason: nausea and vomiting) 5 Days Qty: 10 0RF No Action albuterol sulfate 90 mcg/actuation HFA aerosol inhaler 2 inh PO Q4H PRN (Reason: shortness of breath or wheezing) Qty: 8.5 1RF (DME) FreeStyle Lite Strips Strip See Rx Instructions .ROUTE .MEDSUPPLY Qty: 50 11RF Rx Instructions: Use 1 test strip once a day (DME) blood-glucose meter [FreeStyle Lite Meter] Kit See Rx Instructions .ROUTE .MEDSUPPLY Qty: 1 0RF Rx Instructions: E11.9 ONCE A DAY (DME) lancets [FreeStyle Lancets] 28 gauge misc See Rx Instructions .ROUTE .MEDSUPPLY Qty: 100 11RF Rx Instructions: Use 1 lancet once a day as needed (DME) blood pressure monitor Kit See Rx Instructions .Route Qty: 1 0RF Rx Instructions: As directed rosuvastatin 10 mg tablet 10 mg PO DAILY 90 Days Qty: 90 1RF albuterol sulfate 2.5 mg /3 mL (0.083 %) solution for nebulization 2.5 mg inhalation Q4-6H PRN (Reason: shortness of breath or wheezing) 30 Days Qty: 90 2RF ipratropium-albuterol 0.5 mg-3 mg(2.5 mg base)/3 mL solution for nebulization 3 ml inhalation Q6H PRN (Reason: wheezing) Qty: 180 0RF omeprazole 20 mg capsule,delayed release(DR/EC) 20 mg PO DAILY Qty: 90 0RF Orencia ClickJect 125 mg/mL auto-injector 125 mg subcut QWEEK Qty: 4 4RF docusate sodium [Col-Rite] 100 mg capsule 100 mg PO BID Qty: 30 0RF meclizine 50 mg tablet 50 mg PO DAILY PRN (Reason: motion sickness) Qty: 14 0RF ibuprofen 600 mg tablet 600 mg PO Q8H PRN (Reason: pain) Qty: 14 0RF ibuprofen 400 mg tablet 400 mg PO Q6H PRN (Reason: pain) Qty: 14 0RF acetaminophen 500 mg capsule 1,000 mg PO Q8H PRN (Reason: fever or pain) Qty: 14 0RF tramadol 50 mg tablet 50 mg PO Q8H PRN (Reason: pain) Qty: 12 0RF sennosides [senna] 8.6 mg tablet 8.6 mg PO BEDTIME PRN (Reason: constipation) 7 Days Qty: 7 0RF nabumetone 750 mg tablet 750 mg PO BID 30 Days Qty: 60 6RF metformin 1,000 mg tablet 1,000 mg PO BID 90 Days Qty: 180 1RF (DME) blood pressure test kit-large Kit See Rx Instructions .ROUTE .MEDSUPPLY Qty: 1 Rx Instructions: As directed Trulicity 1.5 mg/0.5 mL pen injector 1.5 mg subcut QWEEK 28 Days Qty: 2 5RF dicyclomine 20 mg tablet 20 mg PO TID PRN (Reason: abdominal pain) 30 Days Qty: 90 0RF fluticasone propionate 220 mcg/actuation HFA aerosol inhaler 2 puff inhalation BID fluticasone propionate 110 mcg/actuation HFA aerosol inhaler 2 puff inhalation BID 30 Days Qty: 12 5RF Rx Instructions: administer with spacer (DME) cock up splint See Rx Instructions .Route .MEDSUPPLY Qty: 1 0RF Rx Instructions: wear on the right wrist at night gabapentin 300 mg capsule 300 mg PO TID 30 Days Qty: 90 6RF losartan 100 mg tablet 100 mg PO DAILY 30 Days Qty: 30 4RF albuterol sulfate 2.5 mg /3 mL (0.083 %) solution for nebulization 2.5 mg inhalation ONCE Qty: 3 0RF Referrals: Aniyah Gonzalez MD [Primary Care Provider] - 03/22/25 Print Language: Yemeni
[2025-03-20] MEDS: Ketorolac Tromethamine 15 MG/ML VIAL IVPUSH (12:18)
[2025-03-20] MEDS: ondansetron HCL 4 MG/2 ML VIAL IVPUSH (12:18)
[2025-03-20] MEDS: 0.9 % Sodium Chloride 1,000 ML 999 ML IV ×2 (12:20→14:24)
[2025-03-20 12:22] VITALS: BP 134/64; PULSE 60; RESP 18; TEMP 36.4; O2SAT 99
--- NOTE | 2025-03-20 12:24 | PC.NURSE ---
reports nausea. no active vomiting. abd soft non tender. awaits CT. NAD, moist mm
--- OUTSIDE RECORDS SUMMARY | 2025-03-20 13:27 | XMS_ITS ---
Author Organization [facility] Address [facility] [place] [address] Care Team Providers Care Sales Director Name Role Phone NORTH MOYER BOOEnmanuel Primary Care Provide r [phone] SE, CSI BQTAS SE Unavailable [phone] [place] Unavailable [phone] Allergies Allergen (clinical drug ingredient) Drug/Non Drug Allergy documented on EMR Reaction Allergy Type Onset Date Status Flexeril dizziness Drug Allergy Active Norflex dizziness Drug Allergy Active Results Component Value Reference Range Notes CBC + DIFF Reviewed date:12/28/2024 02:51:15 PM Interpretation: Performing Lab: Notes/Report: CBC Col. Tabitha. Med. P.R. ORDER [id number] PERFORMED AT: Pat. No.: [id number] [facility] [employer] Paid 5 Cents [address] Exp: 01/08/2025 [place] [address] Num: [id number] DIRECTOR: JAIME SARAVIA LICENSE.: [id number] CLIA: [id number] WHITE BLOOD COUNT 7.0 4.8-10.8 X10 RED [...] # 0.0 0-0.1 x10 BY: DxH 560 1 MAYANK RBC MORPHOLOGY INFLUENZA AG A & B Reviewed date:12/28/2024 02:51:15 PM Interpretation: Performing Lab: Notes/Report: A negative test result may occur if the level of antigen in a sample is Col. Tabitha. Med. P.R. ORDER [id number] PERFORMED AT: below the detection limit of the test. Pat. No.: [id number] [facility] [employer] Test results must be evaluated in conjunction with other clinical data. Paid 5 Cents [address] Negative test results do not rule out other non-influenza viral infections Exp: 01/08/2025 [place] [address] Positive test results do not identify specific influenza A virus subtypes Num: [id number] Individuals who recieved nasally influenza A vaccine may have positive DIRECTOR: JAIME SARAVIA test results for up to three days after vaccination. LICENSE.: [id number] CLIA: [id number] INFLUENZA A ANTIGEN NEGATIVE NEGATIVE INFLUENZA B [...] onset beyond seven days, LICENSE.: [id number] CLIA: [id number] DIRECTOR: JAIME SARAVIA Num: [id number] bacterial infections. The presence of mupirocin may [...] [address] Pat. No.: [id number] [facility] [employer] Col. Tabitha. Med. P.R. ORDER [id number] PERFORMED AT: COVID-19 Ag NEGATIVE NEGATIVE METHOD: STATUS COVID-19/FLU A&B CHEST-AP ONLY *1 VIEW Reviewed date:01/01/2025 08:48:19 AM Interpretation: Performing Lab: Notes/Report: See Below For Report Chest PA: [id number].Report Text See Below For Report REASON FOR VISIT Paciente refiere estoypresentando tos frecuente y de tanto toser me duele aarea de espalda lado derecho desde hacen varios alicea me he dado terapias tennille no he LOIS ortiz RN, BSN Lic. [id number],[place] 12/28/2024 12:27:51 PM > Medications Medication SIG (Take, Route, Frequency, Duration) Notes Start Date End Date Status Oseltamivir Phosphate 75 MG 1 capsule Orally Twice a day for 5 days 09/29/2024 Unknown Loratadine 10 MG 1 tablet Orally Once a day 09/29/2024 Unknown Tussin DM 100-10 MG/5ML 10 mL as needed Orally Every 6 hours 09/29/2024 Unknown Txhsoxxh-Qvrxfangj-SB 1 % 4 drops into a ffected [...] 12/28/2024 Weight-kg 95.25 kg 12/28/2024 CÉSAR BARBA. DICTATING TRANSCRIBING MACHINE SERVICER Lic. [id number], [place] 12/28/2024 02:19:43 PM >Paciente no refiere dolor al momento de renato. Encounters Encounter Location Date Provider Diagnosis [address] [place] [address] [place], [place] [id number] 12/28/2024 PACO HAWLEY Cough R05.9 ; Low back pain M54.50 and Asthma exacerbation J45.901 Assessments Encounter Date Diagnosis (ICD Code) Assessment Notes Treatment Notes Treatment Clinical Notes Section Notes 12/28/2024 Cough (ICD-10 - R05.9) 1) TUSSIN 10 ML PO 2) [id number] MG IV 3) SOLUMEDROL 125 M GIV 4) ALBUTEROL 0.083 + ATROVENT 0.02 BY PN ONCE [place] 12/28/2024 12:50:51 PM > CÉSAR BARBA. DICTATING TRANSCRIBING MACHINE SERVICER Lic. [id number], [place] 12/28/2024 12:57:44 PM > [place]. CÉSAR BARBA. DICTATING TRANSCRIBING MACHINE SERVICER Lic. [id number], [place] 12/28/2024 12:57:44 PM > CÉSAR BARBA. DICTATING TRANSCRIBING MACHINE SERVICER Lic. [id number], [place] 12/28/2024 01:10:58 PM > Se recibe [...] 0.083% + Atrovent 0.02 10/11. CÉSAR BARBA. DICTATING TRANSCRIBING MACHINE SERVICER Lic. [id number], [place] 12/28/2024 01:10:58 PM > CÉSAR BARBA. CÉSAR BARBA. DICTATING TRANSCRIBING MACHINE SERVICER Lic. [id number], [place] 12/28/2024 02:10:54 PM > Paciente es [...] 0 al momento del renato. CÉSAR BARBA. DICTATING TRANSCRIBING MACHINE SERVICER Lic. [id number], [place] 12/28/2024 02:10:55 PM > 12/28/2024 Low back pain (ICD-10 - M54.50) 12/28/2024 Asthma exacerbation (ICD-10 - J45.901) Plan Of Treatment Treatment Notes Assessment Notes Cough 1) TUSSIN 10 ML PO 2) [id number] MG IV 3) SOLUMEDROL 125 M GIV 4) ALBUTEROL 0.083 + ATROVENT 0.02 BY PN ONCE [place] A 12/28/2024 12:50:51 PM > CÉSAR OSBORNE RN BSN Lic. [id number], [place] 12/28/2024 12:57:44 PM > [place]. CÉSAR BARBA. DICTATING TRANSCRIBING MACHINE SERVICER Lic. [id number], [place] 12/28/2024 12:57:44 PM > CÉSAR OSBORNE RN BSN Lic. [id number], [place] 12/28/2024 01:10:58 PM > Se recibe [...] 0.083% + Atrovent 0.02 10/11. CÉSAR BARBA. DICTATING TRANSCRIBING MACHINE SERVICER Lic. [id number], [place] 12/28/2024 01:10:58 PM > CÉSAR BARBA. CÉSAR BARBA. DICTATING TRANSCRIBING MACHINE SERVICER Lic. [id number], [place] 12/28/2024 02:10:54 PM > Paciente es [...] 0 al momento del renato. CÉSAR BARBA. DICTATING TRANSCRIBING MACHINE SERVICER Lic. [id number], [place] 12/28/2024 02:10:55 PM > Progress Notes * ANOOP HERRINGQUEZLauraDOB: (64 yo F)Acc No.[id number]:12/28/2024 Patient:?Shania HOWARD Provider:?PACO HAWLEY MD :1960???Age:64 Y???Sex:Female D ate:12/28/2024 Address:[address] [place] [address], [id number] Pcp:ASAD SANZ NO Check In:12:29 PM BOTCheck O ut:02:19 PM BOT Subjective: * Chief Complaints: * ???1. Paciente refiere estoy presentando tos frecuente y de tanto toser me duele aarea de espalda lado derecho desde hacen varios alicea me he dado terapias tennille no he angel . 2. LOIS DELUNA RN, BSN Lic. [id number], [place] 12/28/2024 12:27:51 PM >. * HPI: ???Depression [...] escolar?12,?..Vivienda?con radha,?..Sospecha de maltrato?No,?..Viaje reciente fuera de CO <2 meses?No,?Transfusion/inmunisaciones?Siguiente,?..Transfusiones de maura?No,?..Reaccion a transfusion?No,?..Inmunizacion?Si,?..Inmunizacion [place] [...] los ultimos 14 alicea?No,?Simmons viajado fuera de CO o simmons estado en contacto con alguien que haya estado fuera de CO en los pasados 14 alicea?No,?Se simmons vacunado [...] pain Orally every 12 hrs , Unknown Siwkvkck-Rptvjkhjx-RU 1 % Solution 4 drops into affected ear RIGHT EAR Otic Three times a day , Medication List reviewed and reconciled with the patient * Allergies:?Norflex: dizzines s - Allergy, Flexeril: dizziness - Allergy. Objective: * Vitals: Ht 61in?? 12/28/2024 12:30:31 PM BOT?? Wt* 210 lbs?? 12/28/2024 12:30:31 PM BOT?? ELB A?ABREU DELUNA RN, BSN Lic. [id number] BMI* 39.67Index?? 12/28/2024 12:30:31 PM BOT?? ELB A?LOIS DELUNA RN, BSN Lic. [id number] Pain scale* 51-10?? 12/28/2024 12:30:31 PM BOT?? ELB A?LOIS DELUNA RN, BSN Lic. [id number] BP* 155/73mm Hg?? 12/28/2024 02:19:24 PM BOT?? SOL S?CÉSAR OSBORNE RN BSN Lic. [id number] 152/79 mm Hg?? 12/28/2024 12:35:00 PM BOT?? ELB A?LOIS DELUNA RN, BSN Lic. [id number] HR* 81/min?? 12/28/2024 02:19:24 PM BOT?? SOL S?CÉSAR OSBORNE RN BSN Lic. [id number] 79 /min?? 12/28/2024 12:35:00 PM BOT?? ELB A?LOIS DELUNA RN, BSN Lic. [id number] RR* 19/min?? 12/28/2024 02:19:24 PM BOT?? SOL S?CÉSAR OSBORNE RN BSN Lic. [id number] 23 /min?? 12/28/2024 12:35:00 PM BOT?? ELB A?LOIS DELUNA RN, BSN Lic. [id number] Temp* 37.0C?? 12/28/2024 02:19:24 PM BOT?? SOL S?CÉSAR OSBORNE RN BSN Lic. [id number] 37.0 C?? 12/28/2024 12:35:00 PM BOT?? ELB A?LOIS DELUNA RN, BSN Lic. [id number] Oxygen sat %* 98%?? 12/28/2024 02:19:24 PM BOT?? SOL S?CÉSAR OSBORNE RN BSN Lic. [id number] 97 %?? 12/28/2024 12:35:00 PM BOT?? ELB A?LOIS DELUNA RN, BSN Lic. [id number] LMP* post?? 12/28/2024 12:30:31 PM BOT?? ELB A?LOIS DELUNA RN, BSN Lic. [id number] Glucose:* 153?? 12/28/2024 12:35:00 PM BOT?? ELB A?LOIS DELUNA RN, BSN Lic. [id number] Ht-cm* 154.94 cm?? 12/28/2024 12:30:31 PM BOT?? ELB A?LOIS DELUNA RN, BSN Lic. [id number] Wt-kg* 95.25 kg?? 12/28/2024 12:30:31 PM BOT?? ELB A?LOIS DELUNA RN, BSN Lic. [id number] CÉSAR OSBORNE RN BSN Lic. [id number], [place] 12/28/2024 02:19:43 PM >Paciente no refiere [...] - 12/28/2024)* LANDON SAM RN, BSN Lic. [id number], [place] 12/28/2024 12:56:19 PM > Se escolta paciente a ubaldo-x kyle [facility]. Notes: 1) TUSSIN 10 ML PO 2) [id number] MG IV 3) SOLUMEDROL 125 M GIV 4) ALBUTEROL 0.083 + ATROVENT 0.02 BY PN ONCE BRENDA HAWLEY, PACO A 12/28/2024 12:50:51 PM > CÉSAR BARBA. DICTATING TRANSCRIBING MACHINE SERVICER Lic. [id number], [place] 12/28/2024 12:57:44 PM > [place]. CÉSAR BARBA. DICTATING TRANSCRIBING MACHINE SERVICER Lic. [id number], [place] 12/28/2024 12:57:44 PM > CÉSAR BARBA. DICTATING TRANSCRIBING MACHINE SERVICER Lic. [id number], [place] 12/28/2024 01:10:58 PM > Se recibe [...] 0.083% + Atrovent 0.02 10/11. CÉSAR BARBA. DICTATING TRANSCRIBING MACHINE SERVICER Lic. [id number], [place] 12/28/2024 01:10:58 PM > CÉSAR BARBA. CÉSAR BARBA. DICTATING TRANSCRIBING MACHINE SERVICER Lic. [id number], [place] 12/28/2024 02:10:54 PM > Paciente es [...] 0 al momento del renato. CÉSAR BARBA. DICTATING TRANSCRIBING MACHINE SERVICER Lic. [id number], [place] 12/28/2024 02:10:55 PM >?? * Procedure Codes:?82572 COMPL ETE CBC W/AUTO DIFF WBC, 52672 EMERGENCY DEPT VISIT, [address] [place], [address] INFLUENZA ASSAY W/OPTIC A Y B, 55693 X-RAY EXAM CHEST 1 VIEW, 85947 EMERGENCY DEPT VISIT MOD MDM * Preventive [...] Information: * Visit Code:? * Procedure Codes:? 63149 COMPLETE CBC W/AUTO DIFF WBC. 69183 EMERGENCY DEPT VISIT. [address] [place]. [address] INFLUENZA ASSAY W/OPTIC A Y B. 24132 X-RAY EXAM CHEST 1 VIEW. 56655 EMERGENCY DEPT VISIT MOD MDM. * Sign off status: Completed true * Provider:?PACO HAWLEY MD Date :?12/28/2024 Generated for Printi osiris/Fabien/eTransmitting on:?03/20/2025 01:25 PM BOT History and Physical Notes * [...]
[2025-03-20 13:28] VITALS: BP 115/57; PULSE 54; RESP 16; O2SAT 100
[2025-03-20] MEDS: iohexoL 350 MG/ML 100 ML INFUS..BTL IV (13:41)
[2025-03-20 14:35] VITALS: BP 157/67; PULSE 67; RESP 18; TEMP 36.4; O2SAT 98
[2025-03-20 14:39] VITALS: BP 157/67; PULSE 67; RESP 18; TEMP 36.4; O2SAT 98
== END 2025-03-20 14:40 | disposition home or self-care (01) ==
PROVIDERS: Emergency Provider Emergency Medicine Emergency Medical Services; PCP Internal Medicine
DX: R19.7 Diarrhea, unspecified (principal); R53.1 Weakness; R11.0 Nausea; R10.2 Pelvic and perineal pain; M06.9 Rheumatoid arthritis, unspecified; Z79.899 Other long term (current) drug therapy
CPT/HCPCS: 36415; 74177; 80048; 80076; 81003; 85025; 96361; 96374; 96375; 99284; J1885; J2405; Q9967

== ENCOUNTER → 2025-03-20 11:24 | Outpatient (BNV) | payer MEDICARE, MEDICAID, SELFPAY | PROVIDERS: Emergency Provider Emergency Medicine Emergency Medical Services; PCP Internal Medicine; Visit Provider Radiology Diagnostic Radiology | DX: R10.9 Unspecified abdominal pain (principal); R11.2 Nausea with vomiting, unspecified; R19.7 Diarrhea, unspecified | CPT/HCPCS: 74177 ==

== ENCOUNTER 2025-04-02 14:33 | Outpatient (AMB) | payer MEDICARE, MEDICAID, SELFPAY ==
--- OUTSIDE RECORDS SUMMARY | 2024-12-28 08:07 | XMS_ITS ---
[facility] Address [facility] [place] [address] Care Team Providers Care Card Dealer Name Role Phone NORTH MOYER BOOEnmanuel Primary Care Provide r [phone] SE, CSI BQTAS SE Unavailable [phone] [place] Unavailable [phone] Allergies Allergen (clinical drug ingredient) Drug/Non Drug Allergy documented on EMR Reaction Allergy Type Onset Date Status Flexeril dizziness Drug Allergy Active Norflex dizziness Drug Allergy Active Results Component Value Reference Range Notes CBC + DIFF Reviewed date:12/28/2024 02:51:15 PM Interpretation: Performing Lab: Notes/Report: CBC Col. Tabitha. Med. P.R. ORDER [id number] PERFORMED AT: Pat. No.: [id number] [facility] [place] Paid 5 Cents [address] Exp: 01/08/2025 [place] [id number] Num: [id number] DIRECTOR: JAIME SARAVIA LICENSE.: [id number] CLIA: [id number] WHITE BLOOD COUNT 7.0 4.8-10.8 X10 RED [...] sample is Col. Tabitha. Med. P.R. ORDER [id number] PERFORMED AT: below the detection limit of the test. Pat. No.: [id number] [facility] [place] Test results must be evaluated in conjunction with other clinical data. Paid 5 Cents [address] Negative test results do not rule out other non-influenza viral infections Exp: 01/08/2025 [place] [id number] Positive test results do not identify specific influenza A virus subtypes Num: [id number] Individuals who recieved nasally influenza A vaccine may have positive DIRECTOR: JAIME SARAVIA test results for up to three days after vaccination. LICENSE.: [id number] CLIA: [id number] INFLUENZA A ANTIGEN NEGATIVE NEGATIVE INFLUENZA B ANTIGEN NEGATIVE NEGATIVE METHOD: STATUS COVID-19/FLU A&B COVID-19 ANTIGEN Reviewed date:12/28/2024 02:51:15 PM Interpretation: Performing Lab: Notes/Report: Col. Tabitha. Med. P.R. ORDER [id number] PERFORMED AT: -- Positive results indicate the presence of COVID-19 antigen, but clinical Pat. No.: [id number] [facility] [place] correlation with patient history and other diagnostic information is Paid 5 Cents [address] necessary to determine infection status. Positive results do not rule out Exp: 01/08/2025 [place] [address] bacterial infection or co-infection with other viruses and do not Num: [id number] differentiate between SARS-CoV and SARS-CoV-2. DIRECTOR: JAIME SARAVIA -- Negative results, from patients with symptom onset beyond seven days, LICENSE.: [id number] CLIA: [id number] should be treated as presumptive and confirmation [...] in vitros Diagnostic Use Only. 1 KOV COVID-19 Ag NEGATIVE NEGATIVE METHOD: STATUS COVID-19/FLU A&B CHEST-AP ONLY *1 VIEW Reviewed date:01/01/2025 08:48:19 AM Interpretation: Performing Lab: Notes/Report: See Below For Report Chest PA: [id number].Report Text See Below For Report REASON FOR VISIT Paciente refiere estoypresentando tos frecuente y de tanto toser me duele aarea de espalda lado derecho desde hacen varios alicea me he dado terapias tennille no he LOIS ortiz RN, BSN Lic. [id number],[place]NER 12/28/2024 12:27:51 PM > Medications Medication SIG (Take, Route, Frequency, Duration) Notes Start Date End Date Status Oseltamivir Phosphate 75 MG 1 capsule Orally Twice a day for 5 days 09/29/2024 Unknown Loratadine 10 MG 1 tablet Orally Once a day 09/29/2024 Unknown Tussin DM 100-10 MG/5ML 10 mL as needed Orally Every 6 hours 09/29/2024 Unknown Pquhwtuw-Vjgevwyek-FF 1 % 4 drops into a ffected [...] 12/28/2024 Weight-kg 95.25 kg 12/28/2024 CÉSAR BARBA. DISABILITY CASE MANAGER Lic. [id number], GENE 12/28/2024 02:19:43 PM >Paciente no refiere dolor al momento de renato. Encounters Encounter Location Date Provider Diagnosis [facility] [place] [address] [place], [place] [id number] 12/28/2024 PACO HAWLEY Cough R05.9 ; Low back pain M54.50 and Asthma exacerbation J45.901 Assessments Encounter Date Diagnosis (ICD Code) Assessment Notes Treatment Notes Treatment Clinical Notes Section Notes 12/28/2024 Cough (ICD-10 - R05.9) 1) TUSSIN 10 ML PO 2) [id number] MG IV 3) SOLUMEDROL 125 M GIV 4) ALBUTEROL 0.083 + ATROVENT 0.02 BY PN ONCE [place] 12/28/2024 12:50:51 PM > CÉSAR BARBA. DISABILITY CASE MANAGER Lic. [id number], GENE 12/28/2024 12:57:44 PM > [place] CÉSAR BARBA. DISABILITY CASE MANAGER Lic. [id number], GENE 12/28/2024 12:57:44 PM > CÉSAR BARBA. DISABILITY CASE MANAGER Lic. [id number], GENE 12/28/2024 01:10:58 PM > Se recibe [...] asepticas y de seguridad, acceso venoso patente, heribreto de edema y enrojecimiento. Se colectan muestras [...] 0.083% + Atrovent 0.02 10/11. CÉSAR BARBA. DISABILITY CASE MANAGER Lic. [id number], GENE 12/28/2024 01:10:58 PM > CÉSAR BARBA. CÉSAR BARBA. DISABILITY CASE MANAGER Lic. [id number], GENE 12/28/2024 02:10:54 PM > Paciente es re evaluada por Dr. Gutierrez y es cortez de rneato en condicion estable, alerta y orientado en tiempo, lugar y persona. Se educa sobre instrucciones medicas, tratamiento a seguir en el hogar, seguimiento con medico primario, y a pasar con el personal de servicio al paciente para completar proceso de renato, refiere entender. Vitales medidos y documentados previos al renato. Paciente refiere escala de dolor en 0 al momento del renato. CÉSAR BARBA. DISABILITY CASE MANAGER Lic. [id number], GENE 12/28/2024 02:10:55 PM > 12/28/2024 Low back pain (ICD-10 - M54.50) 12/28/2024 Asthma exacerbation (ICD-10 - J45.901) Plan Of Treatment Treatment Notes Assessment Notes Cough 1) TUSSIN 10 ML PO 2) [id number] MG IV 3) SOLUMEDROL 125 M GIV 4) ALBUTEROL 0.083 + ATROVENT 0.02 BY PN ONCE [place] A 12/28/2024 12:50:51 PM > CÉSAR OSBORNE RN BSN Lic. [id number], GENE 12/28/2024 12:57:44 PM > [place] CÉSAR BARBA. DISABILITY CASE MANAGER Lic. [id number], GENE 12/28/2024 12:57:44 PM > CÉSAR OSBORNE RN BSN Lic. [id number], GENE 12/28/2024 01:10:58 PM > Se recibe [...] 0.083% + Atrovent 0.02 10/11. CÉSAR BARBA. DISABILITY CASE MANAGER Lic. [id number], GENE 12/28/2024 01:10:58 PM > CÉSAR BARBA. CÉSAR BARBA. DISABILITY CASE MANAGER Lic. [id number], GENE 12/28/2024 02:10:54 PM > Paciente es [...] 0 al momento del renato. CÉSAR BARBA. DISABILITY CASE MANAGER Lic. [id number], GENE 12/28/2024 02:10:55 PM > Progress Notes * ANOOP DAVALOSLauraDOB: (64 yo F)Acc No.[id number]:12/28/2024 Patient: Laura ABURTO Provider: Justin HAWLEY MD :1960 A ge:64 Y S ex:Female Date:12/28/2024 Address:[address] [place] [address], [id number] Pcp:ASAD SANZ NO Check In:12:29 PM BOTCheck O ut:02:19 PM BOT Subjective: * Chief Complaints: * 1 . Paciente refiere estoypresentando tos frecuente y de tanto toser me duele aarea de espalda lado derecho desde hacen varios alicea me he dado terapias tennille no he angel . 2. LOIS DELUNA RN, BSN Lic. [id number], [place] 12/28/2024 12:27:51 PM >. * HPI: D [...] N o, . .Viaje reciente fuera de OR <2 meses N o, T ransfusion/inmunisaciones S [...] N o, H a viajado fuera de OR o simmons estado en contacto con alguien que haya estado fuera de OR en los pasados 14 alicea N o, [...] pain Orally every 12 hrs , Unknown Jcsfvmkg-Gdrkluhak-ZY 1 % Solution 4 drops into affected ear RIGHT EAR Otic Three times a day , Medication List reviewed and reconciled with the patient * Allergies: N orflex: dizziness - Allergy, Flexeril: dizziness - Allergy. Objective: * Vitals: Ht 61in 12/28/2024 12:30:31 PM BOT Wt* 210 lbs 12/28/2024 12:30:31 PM BOT DEVEN Eleazar DELUNA RN, BSN Lic. [id number] BMI* 39.67Index 12/28/2024 12:30:31 PM BOT DEVEN DELUNA RN, BSN Lic. [id number] Pain scale* 51-10 12/28/2024 12:30:31 PM BOT DEVEN P BARRETT DELUNA RN, BSN Lic. [id number] BP* 155/73mm Hg 12/28/2024 02:19:24 PM BOT GENE L OPEZ JAMESON. DISABILITY CASE MANAGER Lic. [id number] 152/79 mm Hg 12/28/2024 12:35:00 PM BOT DEVEN P BARRETT DELUNA RN, BSN Lic. [id number] HR* 81/min 12/28/2024 02:19:24 PM BOT GENE L OPEZ JAMESON. DISABILITY CASE MANAGER Lic. [id number] 79 /min 12/28/2024 12:35:00 PM BOT DEVEN P BARRETT DELUNA RN, BSN Lic. [id number] RR* 19/min 12/28/2024 02:19:24 PM BOT GENE L OPEZ JAMSEON. DISABILITY CASE MANAGER Lic. [id number] 23 /min 12/28/2024 12:35:00 PM BOT DEVEN P BARRETT DELUNA RN, BSN Lic. [id number] Temp* 37.0C 12/28/2024 02:19:24 PM BOT GENE L OPEZ JAMESON. DISABILITY CASE MANAGER Lic. [id number] 37.0 C 12/28/2024 12:35:00 PM BOT DEVEN P BARRETT DELUNA RN, BSN Lic. [id number] Oxygen sat %* 98% 12/28/2024 02:19:24 PM BOT GENE L OPEZ JAMESON. DISABILITY CASE MANAGER Lic. [id number] 97 % 12/28/2024 12:35:00 PM BOT DEVEN P BARRETT DELUNA RN, BSN Lic. 80146 LMP* post 12/28/2024 12:30:31 PM BOT DEVEN P BARRETT DELUNA RN, BSN Lic. [id number] Glucose:* 153 12/28/2024 12:35:00 PM BOT DEVEN P BARRETT DELUNA RN, BSN Lic. 76516 Ht-cm* 154.94 cm 12/28/2024 12:30:31 PM BOT DEVEN P BARRETT DELUNA RN, BSN Lic. [id number] Wt-kg* 95.25 kg 12/28/2024 12:30:31 PM BOT DEVEN P BARRETT DELUNA RN, BSN Lic. [id number] CÉSAR OSBORNE RN BSN Lic. [id number], GENE 12/28/2024 02:19:43 PM >Paciente no refiere [...] CÉSAR OSBORNE RN BSN Lic. [id number] 78, [facility] 12/28/2024 12:59:31 PM > ?LAB: COVID-19 ANTIGEN (Collection Date & Time - 12/28/2024 12:51 PM)* CÉSAR OSBORNE RN BSN Lic. [id number] 78, [facility] 12/28/2024 12:59:28 PM > ?Imaging: CHEST-AP ONLY *1 VIEW (Performed Date - 12/28/2024)* LANDON SAM RN, BSN Lic. [id number], KEN 12/28/2024 12:56:19 PM > Se escolta paciente a ubaldo-x kyle [facility] med[facility]. Notes: 1) TUSSIN 10 ML PO 2) [id number] MG IV 3) SOLUMEDROL 125 M GIV 4) ALBUTEROL 0.083 + ATROVENT 0.02 BY PN ONCE [place] 12/28/2024 12:50:51 PM > CÉSAR OSBORNE RN BSN Lic. [id number], GENE 12/28/2024 12:57:44 PM > [place]. CÉSAR OSBORNE RN BSN Lic. [id number], GENE 12/28/2024 12:57:44 PM > CÉSAR BARBA. DISABILITY CASE MANAGER Lic. [id number], GENE 12/28/2024 01:10:58 PM > Se recibe [...] 0.083% + Atrovent 0.02 10/11. CÉSAR BARBA. DISABILITY CASE MANAGER Lic. [id number], GENE 12/28/2024 01:10:58 PM > CÉSAR BARBA. DISABILITY CASE MANAGER Lic. [id number], GENE 12/28/2024 02:10:54 PM > Paciente es [...] 0 al momento del renato. CÉSAR BARBA. DISABILITY CASE MANAGER Lic. [id number], GENE 12/28/2024 02:10:55 PM >?? * Procedure Codes: 8 5025 COMPLETE CBC W/AUTO DIFF WBC, [address]3812 EMERGENCY DEPT VISIT, [address] [place], [address] INFLUENZA ASSAY W/OPTIC A Y B, [address] X-RAY EXAM CHEST 1 VIEW, 86766 EMERGENCY DEPT VISIT MOD MDM * Preventive [...] Information: * Visit Code: * Procedure Codes: 84419 COMPLETE CBC W/AUTO DIFF WBC. 52093 EMERGENCY DEPT VISIT. [address] [place]. [address] INFLUENZA ASSAY W/OPTIC A Y B. 34067 X-RAY EXAM CHEST 1 VIEW. 67967 EMERGENCY DEPT VISIT MOD MDM. * Sign off status: Completed true * Provider: Justin HAWLEY MD Date: 0 12/28/2024 Generated for Printi ng/Famaguig/eTransmitting on: 0 04/02/2025 04:03 PM BOT History and Physical Notes * [...]
--- NOTE | 2025-04-02 14:35 | A.OFFVIS_ITS ---
Vital Signs 04/02/25 14:39 Height 5 ft 1 in Weight 209 lb 7.026 oz BMI 39.6 BP 174/71 H Blood Pressure Location Lt brachial Position Sitting Pulse 69 Intake Visit Reasons: Abdominal Pains Intake Note: Laura presents in the office as a follow up for abdominal pains. CC: She states that she is having some pains in the stomach. 2 weeks ago she was given medication for diarrhea. She has been taking it ever since - she is not sure as to which medication. Patent Prosecution Attorney Required: Yes Patent Prosecution Attorney Name: Blanquita [id number] Allergies cyclobenzaprine (From Flexeril) Allergy (Intermediate, Verified 05/08/25 16:04) Dizziness orphenadrine (From Norflex) Allergy (Intermediate, Verified 05/08/25 16:04) Dizziness sarilumab (From Kevzara) Allergy (Intermediate, Verified 05/08/25 16:04) Rash HPI Comments Details: This is a 64y.o F who was referred for her PCP for GONGORA . Pt does not report any abd pain, N,V. Pt does not drink etOH. No fam hx of liver disease in FDRs. No new meds. Normal LFTs Ultrasound abdomen 04/29/2024: Increased echogenicity possible steatosis. Status post cholecystectomy. No CBD dilation. 04/02/25: Was lost to follow up. Now returning to care due to issues with constipation causing RLQ pain. Was seen in ER in February as well for severe constipation. Reports BMs are small and hard, has to strain and passes small pieces. SOmetimes sees blood. Stools also appear to be narrow in caliber. Reports sx seem to be worse for the past 3 months. Last colo 2019 - 1 benign polyp. [facility] Medical History Urinary tract infection Bronchitis Morbid obesity with BMI of 45.0-49.9, adult Sacroiliitis Rheumatic fever TIA (transient ischemic attack) Right-sided back pain History of COVID-19 Asthma exacerbation Hospital discharge follow-up Sacroiliitis Renal calculi Costovertebral angle tenderness Burning with urination Disc degeneration, lumbar Spondylosis of cervical spine Spondylosis of lumbar spine Pleuritic pain Restrictive lung disease Morbid obesity Asthma Dyslipidemia Essential hypertension Vaginal modesta Seropositive rheumatoid arthritis Rheumatoid arthritis Diabetes Surgical History History of cholecystectomy Hx of colonoscopy (09/01/19) History of surgery on wrist Family History Father Diabetes mellitus Myocardial infarction Hypertension CVD (cardiovascular disease) Mother Diabetes mellitus CVD (cardiovascular disease) Sister No problems noted. Son No problems noted. Son No problems noted. Son No problems noted. Daughter Thyroiditis Daughter No problems noted. Daughter No problems noted. Daughter No problems noted. Daughter No problems noted. Other Asthma exacerbation Social History Housing: Apartment Alcohol intake: never Patient Tobacco Use Status: Never used Tobacco e-Cigarette/Vaping Use: Never Used Second Hand Smoke Exposure: No Use of substances other than those prescribed or required for medical reasons: No Have you been hit, kicked, punched, or otherwise hurt by someone within the past year? If so, by whom?: No Are you DNR?: No Advance Directives: No Advance Directives Information Provided: Yes Advance Directives on File: No Patient : No : No Poor oral hygiene: No service: No Current occupational status: disabled Sexual orientation: Straight/Heterosexual Gender identity: Female Cognitive needs: No Hearing needs: No Vision needs: No Female Reproductive History Menstrual Age of Menarche: 11 Date of menopause: 01/22/10 Review of Systems Const All systems reviewed & are unremarkable except as noted in HPI and below Physical Exam Vital Signs: Last Vital Signs Pulse 69 04/02/25 14:39 BP 174/71 H 04/02/25 14:39 BMI result Body Mass Index 39.6 No apparent distress Nonicteric Abdomen soft, nondistended Alert and oriented x3, normal gait Assessment & Plan Assessment & Plan (1) Morbid obesity with BMI of 40.0-44.9, adult: Code(s): E66.01 - Morbid (severe) obesity due to excess calories; Z68.41 - Body mass index [BMI] 40.0-44.9, adult Category: Medical (2) Type 2 diabetes mellitus with hyperglycemia: Code(s): E11.65 - Type 2 diabetes mellitus with hyperglycemia Category: Medical (3) Lower abdominal pain: Code(s): R10.30 - Lower abdominal pain, unspecified Category: Medical (4) Change in bowel habit: Code(s): R19.4 - Change in bowel habit Category: Medical (5) Blood in stool: Code(s): K92.1 - Melena Category: Medical Plan Patient with a recent worsening of constipation with intermittent blood in stool. Given her age, will need luminal evaluation to rule out possible mass. Other differentials include chronic idiopathic constipation with aggravation of hemorrhoids, large friable polyp, SURS, stercoral proctitis etc. Plan: - Urgent colo to be booked - PEG prep Rxed and instructions reviewed wiht the the help of geotechnical engineering technician - Pt has DM and on trulicity, advised a 7 day hold UPDATE: Pt called office a week after this appt and reported epigastric pain with nausea. No dysphagia. Will also add EGD at the same time for eval. Medications: New bisacodyl 10 mg (2 x 5 mg) PO .daily 180 tabs 1RF 90 days polyethylene glycol 3350 (Miralax) hold for loose stools 17 grams PO DAILY 238 grams 1RF peg 3350-electrolytes 236-22.74-6.74 -5.86 gram (Golytely) as per split prep instructions, until fecal effluent is clear 240 mL PO Q10M 4,000 mL 0RF colonoscopy Coding Level of Care Code Est Pt Level 5 (29457) Diagnoses Morbid obesity with BMI of 40.0-44.9, adult E66.01; Z68.41 Type 2 diabetes mellitus with hyperglycemia E11.65 Lower abdominal pain R10.30 Change in bowel habit R19.4 Blood in stool K92.1
[2025-04-02 14:39] VITALS: BP 174/71; PULSE 69; BMI 39.6
== END 2025-04-02 15:24 | disposition home or self-care (01) ==
LOC: HO.HGI 14:33
PROVIDERS: PCP Internal Medicine; Visit Provider Internal Medicine
DX: R10.30 Lower abdominal pain, unspecified (principal); R19.4 Change in bowel habit; K92.1 Melena; E66.01 Morbid (severe) obesity due to excess calories; Z68.41 Body mass index [BMI] 40.0-44.9, adult; E11.65 Type 2 diabetes mellitus with hyperglycemia
CPT/HCPCS: 99214

== ENCOUNTER → 2025-04-02 14:33 | Outpatient (BNVA) | payer MEDICARE, MEDICAID, SELFPAY | PROVIDERS: PCP Internal Medicine; Visit Provider Internal Medicine | DX: R19.4 Change in bowel habit (principal); R10.30 Lower abdominal pain, unspecified; E11.65 Type 2 diabetes mellitus with hyperglycemia; E66.01 Morbid (severe) obesity due to excess calories; K92.1 Melena; Z68.39 Body mass index [BMI] 39.0-39.9, adult | CPT/HCPCS: 99212 ==

== ENCOUNTER 2025-04-04 13:23 | Emergency (ER) | payer MEDICARE, MEDICAID, SELFPAY ==
--- NOTE | ~2025-04-04 | XR_ITS ---
EXAMINATION: XR ABDOMEN KUB CLINICAL INDICATION: abdominal pain COMPARISON: Correlation made with CT abdomen and pelvis 03/20/2025. TECHNIQUE: AP view of the abdomen. FINDINGS: Bowel gas pattern is normal/nonspecific. There is no focally dilated loop. No organomegaly. No large abdominal masses. Lung bases are grossly clear. Grossly no abnormal soft tissue calcifications. Mild degenerative changes of the spine and bilateral hip joints. No acute bony abnormalities. XR/XR KUB IMPRESSION: No acute findings of the abdomen or pelvis. Electronically signed by: Moses Oreilly MD 04/04/2025 04:35 PM EDT
[2025-04-04 13:41] VITALS: BP 139/70; PULSE 101; RESP 16; TEMP 36.9; O2SAT 97; BMI 38.7
--- NOTE | 2025-04-04 13:42 | ED.GENADULT ---
HPI - General Adult General Chief complaint: Abdominal Pain Stated complaint: vomiting Time Seen by Provider: 04/04/25 15:26 History of Present Illness ED Provider: Emily CAMERON narrative: The patient is a 65-year-old woman who says that she was feeling well yesterday but during the night last night she started to feel some abdominal discomfort. She felt worse at around 08:00 this morning and developed nausea, vomiting, and diarrhea. She ultimately came to the emergency room for these symptoms. The patient was here in the emergency room 2 weeks ago on March 20 with similar symptoms. She had a negative workup at that time including a negative CT scan of the abdomen and pelvis. She also had CT scans of her abdomen on 02/09/2025 and on 02/27/2025. These scans were also negative. Related Data Home Medications ?Medication ?Instructions ?Recorded ?Confirmed blood pressure test kit-large #1 ea 06/02/24 03/06/25 fluticasone propionate 220 2 puff inhalation BID 01/18/25 03/06/25 mcg/actuation HFA aerosol inhaler Previous Rx's ?Medication ?Instructions ?Recorded albuterol sulfate 90 mcg/actuation 2 inh PO Q4H PRN shortness of 08/13/20 aerosol inhaler breath or wheezing #8.5 grams docusate sodium 100 mg capsule 100 mg PO BID #30 caps 12/07/22 (Col-Rite) blood sugar diagnostic (FreeStyle #50 ea 02/10/23 Lite Strips) blood-glucose meter (FreeStyle #1 ea 02/10/23 Lite Meter kit) lancets 28 gauge (FreeStyle #100 ea 02/10/23 Lancets) cock up splint #1 ea 03/03/23 metformin 1,000 mg tablet 1,000 mg PO BID 90 days #180 tabs 06/29/23 blood pressure monitor #1 ea 02/07/24 nabumetone 750 mg tablet 750 mg PO BID 30 days #60 tabs 03/30/24 rosuvastatin 10 mg tablet 10 mg PO DAILY 90 days #90 tabs 04/20/24 sennosides 8.6 mg tablet (senna) 8.6 mg PO BEDTIME PRN constipation 04/20/24 7 days #7 tabs ibuprofen 600 mg tablet 600 mg PO Q8H PRN pain #14 tabs 04/23/24 meclizine 50 mg tablet 50 mg PO DAILY PRN motion sickness 04/23/24 #14 tabs gabapentin 300 mg capsule 300 mg PO TID pain 30 days #90 caps 07/06/24 albuterol sulfate 2.5 mg/3 mL 2.5 mg (3 mL) inhalation Q4-6H PRN 08/30/24 (0.083 %) solution for nebulization shortness of breath or wheezing 30 days #90 mL losartan 100 mg tablet 100 mg PO DAILY hypertension 30 10/26/24 days #30 tabs fluticasone propionate 110 2 puff inhalation BID Asthma/Cough 01/18/25 mcg/actuation HFA aerosol inhaler 30 days #12 grams ipratropium 0.5 mg-albuterol 3 mg 3 ml inhalation Q6H PRN wheezing 02/09/25 (2.5 mg base)/3 mL nebulization #180 mL soln omeprazole 20 mg capsule,delayed 20 mg PO DAILY #90 caps 02/13/25 release dicyclomine 20 mg tablet 20 mg PO TID PRN abdominal pain 30 03/06/25 days #90 tabs dulaglutide 1.5 mg/0.5 mL 1.5 mg (0.5 mL) subcut QWEEK 4 03/06/25 subcutaneous pen injector weeks #2 mL (Trulicity) acetaminophen 500 mg capsule 1,000 mg (2 x 500 mg) PO Q8H PRN 03/13/25 fever or pain #14 caps ibuprofen 400 mg tablet 400 mg PO Q6H PRN pain #14 tabs 03/13/25 tramadol 50 mg tablet 50 mg PO Q8H PRN pain #12 tabs 03/13/25 Orencia ClickJect 125 mg/mL 125 mg subcut QWEEK #4 mL 03/20/25 subcutaneous auto-injector (abatacept) ondansetron 4 mg disintegrating 4 mg PO TID PRN nausea and 03/20/25 tablet vomiting 5 days #10 tabs bisacodyl 5 mg tablet,delayed 10 mg (2 x 5 mg) PO .daily 90 days 04/02/25 release #180 tabs peg 3350-electrolytes 236 240 ml PO Q10M colonoscopy #4,000 04/02/25 gram-22.74 gram-6.74 gram-5.86 mL gram solution (Golytely) polyethylene glycol 3350 17 17 g PO DAILY #238 grams 04/02/25 gram/dose oral powder (Miralax) ondansetron 4 mg disintegrating 4 mg PO Q6H PRN nausea and 04/04/25 tablet vomiting #10 tabs sucralfate 1 gram tablet 1 g PO TID PRN Upper abdominal 04/04/25 pain #60 tabs Allergies Allergy/AdvReac Type Severity Reaction Status Date / Time cyclobenzaprine (From Allergy Intermediate Dizziness Verified 04/04/25 13:45 Flexeril) orphenadrine (From Norflex) Allergy Intermediate Dizziness Verified 04/04/25 13:45 sarilumab (From Kevzara) Allergy Intermediate Rash Verified 04/04/25 13:45 [facility] Past Medical History Medical History Urinary tract infection Bronchitis Morbid obesity with BMI of 45.0-49.9, adult Sacroiliitis Rheumatic fever TIA (transient ischemic attack) Right-sided back pain History of COVID-19 Asthma exacerbation Hospital discharge follow-up Sacroiliitis Renal calculi Costovertebral angle tenderness Burning with urination Disc degeneration, lumbar Spondylosis of cervical spine Spondylosis of lumbar spine Pleuritic pain Restrictive lung disease Morbid obesity Asthma Dyslipidemia Essential hypertension Vaginal modesta Seropositive rheumatoid arthritis Rheumatoid arthritis Diabetes Surgical History History of cholecystectomy Hx of colonoscopy (09/01/19) History of surgery on wrist Family History Family History Father Diabetes mellitus Myocardial infarction Hypertension CVD (cardiovascular disease) Mother Diabetes mellitus CVD (cardiovascular disease) Sister No problems noted. Son No problems noted. Son No problems noted. Son No problems noted. Daughter Thyroiditis Daughter No problems noted. Daughter No problems noted. Daughter No problems noted. Daughter No problems noted. Other Asthma exacerbation Social History Social History Housing: Apartment Alcohol intake: never Patient Tobacco Use Status: Never used Tobacco Tobacco use type: Cigarette Smoked in Last 30 Days: No e-Cigarette/Vaping Use: Never Used Second Hand Smoke Exposure: No Advance Directives: No Advance Directives Information Provided: Yes service: No Current occupational status: disabled Sexual orientation: Straight/Heterosexual Gender identity: Female Cognitive needs: No Hearing needs: No Vision needs: No Physical Exam ED Vital Signs: Vital Signs - 24 hr 04/04/25 13:41 04/04/25 15:22 04/04/25 16:00 Temperature 98.4 F 97.8 F Pulse Rate 101 H 88 88 Respiratory Rate 16 17 16 Blood Pressure 139/70 153/79 H 128/75 Pulse Oximetry 97 97 97 Oxygen Delivery Method Room Air Room Air Room Air BMI result Body Mass Index 38.7 Const Other: The patient is awake, alert, pleasant, cooperative. He does not appear obviously acutely ill. She looks somewhat chronically ill. Orientation/consciousness: patient oriented x3 HENMT Other: The face is symmetrical. ?Mucous membranes moist. Eyes Other: Pupils are round equal, conjunctivae are clear, extraocular movements intact Neck Neck: Yes normal visual inspection and Yes full ROM Resp Effort & Inspection: normal respiratory effort Auscultation: clear to auscultation bilaterally Cardio Rate: regular rate Rhythm: regular rhythm Heart sounds: S1 normal heart sound present and S2 normal heart sound present GI Other: The patient has a protuberant abdomen that is soft. There is diffuse abdominal tenderness in multiple areas of the abdomen. No definite rebound or guarding. Skin Other: The skin is dry and unremarkable Neuro General: patient oriented x3, tone normal, moves all extremities, no focal motor deficits and CN's II-XI intact bilaterally Extrem Other: There is no calf swelling or tenderness. No asymmetry. No peripheral edema. Course Course Course Narrative: This is a rapid medical exam performed by Jose Rodriguez NP: Additional HPI, ROS, PE not included below will be deferred to primary provider. Patient is a 65-year-old female with history of T2DM, NAFLD, lacunar infarction, chronic constipation, asthma presenting to the ED with complaint of nausea, vomiting and generalized abdominal pain since this morning. Has felt generally unwell for around one week. Plan: labs, UA Medications Administered Discontinued Medications Generic Name Dose Route Start Last Admin Trade Name Freq PRN Reason Stop Dose Admin Famotidine 20 mg 04/04/25 15:51 04/04/25 16:06 Famotidine/Pf 20 Mg/2 Ml Vial IVPUSH 04/04/25 15:52 20 mg ONCE ONE Administration Sodium Chloride 1,000 mls @ 999 mls/hr 04/04/25 16:00 04/04/25 16:06 Ns IV 04/04/25 17:00 999 mls/hr .Q1H1M JARRET Administration Ketorolac Tromethamine 10 mg 04/04/25 15:51 04/04/25 16:06 Ketorolac Tromethamine 15 Mg/Ml Vial IVPUSH 04/04/25 15:52 10 mg ONCE ONE Administration Ondansetron HCl 4 mg 04/04/25 15:51 04/04/25 16:06 Ondansetron Hcl 4 Mg/2 Ml Vial IVPUSH 04/04/25 15:52 4 mg ONCE ONE Administration Sucralfate 1 gm 04/04/25 16:57 04/04/25 17:03 Sucralfate Oral Suspension 1 Gm/10 Ml Oral.Susp PO 04/04/25 16:58 1 gm ONCE ONE Administration Medical Decision Making Medical Decision Making [facility] Narrative: The patient is a 65-year-old woman who presents with the complaints of nausea, vomiting, abdominal pain, and diarrhea. She says she had some minor stomach symptoms during the night last night. Things were worse this morning at around 08:00 when she had vomiting and diarrhea. The patient has had previous emergency room visits for evaluation of abdominal pain. She has had 3 CT scans of the abdomen and pelvis so far this year. She had 1 earlier this month and 1 in February. My clinical suspicion for an acute surgical process is very low. I think it is much more likely that this might represent an episode of gastritis or possibly irritable bowel syndrome. She has a normal white count. CRP is only minimally abnormal. Other labs are unremarkable. KUB is negative. The patient was given IV fluids, ketorolac for discomfort, ondansetron for nausea, and famotidine. She seemed to feel better. There was no ongoing vomiting or diarrhea. She was reassured. She will be discharged with a prescription for sucralfate. I believe she is already on omeprazole. She should follow up with her PCP and her safety and skill based pay manager. She should return if worse. Lab Data 04/04/25 14:05 04/04/25 14:05 Labs: Lab Results 04/04/25 04/04/25 Range/Units 14:05 16:03 WBC 9.3 (4.8-10.8) X10*3/uL RBC 4.56 (4.20-5.50) X10*6/uL Hgb 14.6 (12.0-16.0) g/dl Hct 40.8 (37.0-47.0) % MCV 89.5 (80.0-98.0) fL MCH 32.0 (27.0-33.0) pg MCHC 35.8 H (31.0-35.0) g/dl RDW 12.3 (11.0-16.0) % Plt Count 182 (160-400) X10*3/uL MPV 11.0 (9.4-12.3) fL Immature Gran % (Auto) 1.1 H (0.0-0.4) % Neut % (Auto) 80.5 H (45-73) % Lymph % (Auto) 10.7 L (20-40) % [place] % (Auto) 3.9 (2-11) % Eos % (Auto) 3.3 (0-4) % Baso % (Auto) 0.5 (0-2) % Lymph # (Auto) 1.0 L (1.2-4.9) X10*3/uL [place] # (Auto) 0.4 (0.1-1.2) X10*3/uL Eos # (Auto) 0.3 (0.0-0.4) X10*3/uL Baso # (Auto) 0.1 (0.0-0.2) X10*3/uL Abs Immat Gran (auto) 0.10 H (0.00-0.03) X10*3/uL Absolute Neuts (auto) 7.5 (2.0-8.3) x10*3/uL Absolute Nucleated RBC 0.000 (0.0-0.012) X10*3/uL Nucleated RBC % (auto) 0.0 (0.0-0.2) /100WBC Sodium 144 (135-145) mmol/L Potassium 3.6 (3.3-5.1) mmol/L Chloride 109 H (96-108) mmol/L Carbon Dioxide 25 (22-29) mmol/L Anion Gap 14 (12-20) BUN 11 (9-16) mg/dL Creatinine 0.72 (0.5-1.4) mg/dL Estim Creat Clear Calc 81.0 Estimated GFR > 60 Random Glucose 147 H (60-115) mg/dL Calcium 9.2 (8.4-10.2) mg/dL Magnesium 1.7 (1.6-2.6) mg/dL Total Bilirubin 1.0 (0.0-1.0) mg/dL AST 29 (5-31) U/L ALT 20 (0-31) U/L Alkaline Phosphatase 84 (39-117) U/L Troponin I High Sens < 2.7 (<3.5-17.0) ng/L C-Reactive Protein 0.65 H (< or = 0.50) mg/dL Total Protein 7.3 (6.5-8.0) g/dL Albumin 4.2 (3.5-5.0) g/dL Lipase 19 (8-78) U/L Urine Color Yellow Urine Appearance Clear Urine pH 6.0 (5.0-9.0) Ur Specific [place] >= 1.030 H (1.005-1.025) Urine Protein 100 (2+) H (Neg-Trace) mg/dL Urine Glucose (UA) Negative (Negative) mg/dL Urine Ketones 40 (Negative) mg/dL Urine Blood Negative (Negative) Urine Nitrite Negative (Negative) Ur Leukocyte Esterase Negative (Negative) Urine RBC 0-2 (0-2) /HPF Urine WBC 0-5 (0-5) /HPF Ur Squamous Epith Cells 11-20 (0-2) /HPF Urine Bacteria None Seen (None Seen) Hyaline Casts 3-5 (0-2) /LPF Discharge Plan Discharge Clinical Impression: Abdominal pain, vomiting, and diarrhea Patient Disposition: Home, Self-Care Additional Instructions: Your testing in the emergency room today is very reassuring. Please make sure that you take the omeprazole medication which I believe you were currently prescribed. I have sent a prescription for a new medication called sucralfate which you may use on an as-needed basis for stomach upset or discomfort. Please follow up with your regular doctor and also with your safety and skill based pay manager. Return to the emergency room if you feel significantly worse. Prescriptions: New sucralfate 1 gram tablet 1 g PO TID PRN (Reason: Upper abdominal pain) Qty: 60 0RF ondansetron 4 mg tablet,disintegrating 4 mg PO Q6H PRN (Reason: nausea and vomiting) Qty: 10 0RF No Action albuterol sulfate 90 mcg/actuation HFA aerosol inhaler 2 inh PO Q4H PRN (Reason: shortness of breath or wheezing) Qty: 8.5 1RF (DME) FreeStyle Lite Strips Strip See Rx Instructions .ROUTE .MEDSUPPLY Qty: 50 11RF Rx Instructions: Use 1 test strip once a day (DME) blood-glucose meter [FreeStyle Lite Meter] Kit See Rx Instructions .ROUTE .MEDSUPPLY Qty: 1 0RF Rx Instructions: E11.9 ONCE A DAY (DME) lancets [FreeStyle Lancets] 28 gauge misc See Rx Instructions .ROUTE .MEDSUPPLY Qty: 100 11RF Rx Instructions: Use 1 lancet once a day as needed (DME) blood pressure monitor Kit See Rx Instructions .Route Qty: 1 0RF Rx Instructions: As directed rosuvastatin 10 mg tablet 10 mg PO DAILY 90 Days Qty: 90 1RF albuterol sulfate 2.5 mg /3 mL (0.083 %) solution for nebulization 2.5 mg inhalation Q4-6H PRN (Reason: shortness of breath or wheezing) 30 Days Qty: 90 2RF ipratropium-albuterol 0.5 mg-3 mg(2.5 mg base)/3 mL solution for nebulization 3 ml inhalation Q6H PRN (Reason: wheezing) Qty: 180 0RF omeprazole 20 mg capsule,delayed release(DR/EC) 20 mg PO DAILY Qty: 90 0RF Orencia ClickJect 125 mg/mL auto-injector 125 mg subcut QWEEK Qty: 4 4RF docusate sodium [Col-Rite] 100 mg capsule 100 mg PO BID Qty: 30 0RF meclizine 50 mg tablet 50 mg PO DAILY PRN (Reason: motion sickness) Qty: 14 0RF ibuprofen 600 mg tablet 600 mg PO Q8H PRN (Reason: pain) Qty: 14 0RF ibuprofen 400 mg tablet 400 mg PO Q6H PRN (Reason: pain) Qty: 14 0RF acetaminophen 500 mg capsule 1,000 mg PO Q8H PRN (Reason: fever or pain) Qty: 14 0RF tramadol 50 mg tablet 50 mg PO Q8H PRN (Reason: pain) Qty: 12 0RF ondansetron 4 mg tablet,disintegrating 4 mg PO TID PRN (Reason: nausea and vomiting) 5 Days Qty: 10 0RF sennosides [senna] 8.6 mg tablet 8.6 mg PO BEDTIME PRN (Reason: constipation) 7 Days Qty: 7 0RF nabumetone 750 mg tablet 750 mg PO BID 30 Days Qty: 60 6RF metformin 1,000 mg tablet 1,000 mg PO BID 90 Days Qty: 180 1RF (DME) blood pressure test kit-large Kit See Rx Instructions .ROUTE .MEDSUPPLY Qty: 1 Rx Instructions: As directed Trulicity 1.5 mg/0.5 mL pen injector 1.5 mg subcut QWEEK 28 Days Qty: 2 5RF dicyclomine 20 mg tablet 20 mg PO TID PRN (Reason: abdominal pain) 30 Days Qty: 90 0RF fluticasone propionate 220 mcg/actuation HFA aerosol inhaler 2 puff inhalation BID fluticasone propionate 110 mcg/actuation HFA aerosol inhaler 2 puff inhalation BID 30 Days Qty: 12 5RF Rx Instructions: administer with spacer (DME) cock up splint See Rx Instructions .Route .MEDSUPPLY Qty: 1 0RF Rx Instructions: wear on the right wrist at night gabapentin 300 mg capsule 300 mg PO TID 30 Days Qty: 90 6RF losartan 100 mg tablet 100 mg PO DAILY 30 Days Qty: 30 4RF albuterol sulfate 2.5 mg /3 mL (0.083 %) solution for nebulization 2.5 mg inhalation ONCE Qty: 3 0RF bisacodyl 5 mg tablet,delayed release (DR/EC) 10 mg PO .daily 90 Days Qty: 180 1RF polyethylene glycol 3350 [Miralax] 17 gram/dose powder 17 g PO DAILY Qty: 238 1RF Rx Instructions: hold for loose stools peg 3350-electrolytes [Golytely] 236-22.74-6.74 -5.86 gram recon soln 240 ml PO Q10M Qty: 4000 0RF Rx Instructions: as per split prep instructions, until fecal effluent is clear Referrals: Aniyah Gonzalez MD [Primary Care Provider, Internal Medicine] Referral Note: abdominal pain Sushila Loomis MD [Physician, Gastroenterology] Referral Note: Abdominal pain, vomiting, diarrhea Print Language: Kazakh
--- NOTE | 2025-04-04 13:48 | ECG_ITS ---
Test Reason : abd pain Blood Pressure : */* mmHG Vent. Rate : 98 BPM Atrial Rate : 98 BPM P-R Int : 198 ms QRS Dur : 90 ms QT Int : 360 ms P-R-T Axes : 35 2 39 degrees QTcB Int : 459 ms Normal sinus rhythm Normal ECG When compared with ECG of 13-Mar-2025 20:19, Vent. rate has increased by 38 bpm QT has lengthened Referred By: Prachi Rodriguez Electronically Signed By: DEXTER BOWSER
[2025-04-04 14:10] LABS: MANUAL DIFF FLAG NO
[2025-04-04 14:12] LABS: Basophils Absolute Auto 0.1 X10*3/uL (0.0-0.2); Basophils Percent Auto 0.5 % (0-2); Eosinophils Absolute Auto 0.3 X10*3/uL (0.0-0.4); Eosinophils Percent Auto 3.3 % (0-4); Hematocrit 40.8 % (37.0-47.0); Hemoglobin 14.6 g/dl (12.0-16.0); Imm Gran Pct Auto 1.1 % (0.0-0.4); Lymphocytes Percent Auto 10.7 % (20-40); Mean Corpuscular HGB Conc 35.8 g/dl (31.0-35.0); Mean Corpuscular Volume 89.5 fL (80.0-98.0); Monocytes Absolute Auto 0.4 X10*3/uL (0.1-1.2); Monocytes Percent Auto 3.9 % (2-11); Neutrophils Absolute Auto 7.5 x10*3/uL (2.0-8.3); Neutrophils Percent Auto 80.5 % (45-73); Platelet Count 182 X10*3/uL (160-400); Red Blood Count 4.56 X10*6/uL (4.20-5.50); Red Cell Distribution Width 12.3 % (11.0-16.0); White Blood Count 9.3 X10*3/uL (4.8-10.8)
[2025-04-04 14:27] LABS: Alanine Aminotransferase 20 U/L (0-31); Albumin Level 4.2 g/dL (3.5-5.0); Alkaline Phosphatase 84 U/L (39-117); Anion Gap 14 (12-20); Aspartate Amino Transferase 29 U/L (5-31); Blood Urea Nitrogen 11 mg/dL (9-16); Calcium 9.2 mg/dL (8.4-10.2); Carbon Dioxide 25 mmol/L (22-29); Chloride 109 mmol/L (96-108); Estimated Glomerular Filt Rate > 60; Glucose Random 147 mg/dL (60-115); Lipase 19 U/L (8-78); Magnesium 1.7 mg/dL (1.6-2.6); Potassium 3.6 mmol/L (3.3-5.1); Sodium 144 mmol/L (135-145); Total Protein 7.3 g/dL (6.5-8.0)
[2025-04-04 14:36] LABS: Troponin-I High Sensitivity < 2.7 ng/L (<3.5-17.0)
--- NOTE | 2025-04-04 15:09 | PC.NURSE ---
Addendum entered by Keila Barajas RN 04/04/25 15:35: Patient is a 64y.o F who was referred for her PCP for GONGORA . Normal LFTs. Ultrasound abdomen 04/29/2024: Increased echogenicity possible steatosis. Status post cholecystectomy. No CBD dilation. On 04/02/25: Seen due to issues with constipation causing RLQ pain. Was seen in ER in February as well for severe constipation. Reports BMs are small and hard, has to strain and passes small pieces. SOmetimes sees blood. Stools also appear to be narrow in caliber. Reports sx seem to be worse for the past 3 months. Coloscopy scheduled in 2 months. Alert and oriented, irish speaking. Lungs clear bilat. Respirations even and non-labored. Abdomen distended, soft with positive bowel sounds. c/o epigastric pain radiating to her back with assoc N/V and constipation. Positive pedal pulses with no edema. Original Note: Medical History Urinary tract infection Bronchitis Morbid obesity with BMI of 45.0-49.9, adult Sacroiliitis Rheumatic fever TIA (transient ischemic attack) Right-sided back pain History of COVID-19 Asthma exacerbation Hospital discharge follow-up Sacroiliitis Renal calculi Costovertebral angle tenderness Burning with urination Disc degeneration, lumbar Spondylosis of cervical spine Spondylosis of lumbar spine Pleuritic pain Restrictive lung disease Morbid obesity Asthma Dyslipidemia Essential hypertension Vaginal modesta Seropositive rheumatoid arthritis Rheumatoid arthritis Diabetes
[2025-04-04 15:22] VITALS: BP 153/79; PULSE 88; RESP 17; O2SAT 97
[2025-04-04 15:55] LABS: C Reactive Protein 0.65 mg/dL (< or = 0.50)
[2025-04-04 16:00] VITALS: BP 128/75; PULSE 88; RESP 16; TEMP 36.6; O2SAT 97
[2025-04-04] MEDS: Ketorolac Tromethamine 15 MG/ML VIAL 10 MG IVPUSH (16:06)
[2025-04-04] MEDS: Famotidine/PF 20 MG/2 ML VIAL IVPUSH (16:06)
[2025-04-04] MEDS: ondansetron HCL 4 MG/2 ML VIAL IVPUSH (16:06)
[2025-04-04] MEDS: 0.9 % Sodium Chloride 1,000 ML 999 ML IV (16:06)
[2025-04-04 16:09] LABS: Appearance Urine Clear; Color Urine Yellow; Glucose Urine UA Negative (Negative); Leukocyte Esterase Urine Negative (Negative); Nitrite Urine Negative (Negative); Specific Gravity - Urine >= 1.030 (1.005-1.025); UMIC TRIGGER UACC YES; Urine Blood Negative (Negative); Urine Ketones 40 mg/dL (Negative); Urine Protein 100 (2+) mg/dL (Neg-Trace)
[2025-04-04 16:30] LABS: Bacteria Urine None Seen (None Seen); RBC Urine 0-2 /HPF (0-2); WBC Urine 0-5 /HPF (0-5)
[2025-04-04] MEDS: Sucralfate Oral Suspension 1 GM/10 ML ORAL.SUSP PO (17:03)
[2025-04-04 17:31] VITALS: BP 142/73; PULSE 78; RESP 16; O2SAT 97
[2025-04-04 17:54] VITALS: BP 142/73; PULSE 78; RESP 16; TEMP 36.7; O2SAT 97
== END 2025-04-04 17:55 | disposition home or self-care (01) ==
PROVIDERS: Registered Nurse Emergency; Emergency Provider Emergency Medicine; PCP Internal Medicine
DX: R11.2 Nausea with vomiting, unspecified (principal); R10.2 Pelvic and perineal pain; R19.7 Diarrhea, unspecified; R10.13 Epigastric pain; E11.9 Type 2 diabetes mellitus without complications; Z79.899 Other long term (current) drug therapy; Z79.85 Long-term (current) use of injectable non-insulin antidiabetic drugs
CPT/HCPCS: 36415; 74018; 80053; 81001; 83690; 83735; 84484; 85025; 86140; 93005; 96361; 96374; 96375; 99284; 99285; J1308; J1885; J2405

== ENCOUNTER → 2025-04-04 13:48 | Outpatient (BNV) | payer MEDICARE, MEDICAID, SELFPAY | PROVIDERS: Emergency Provider Emergency Medicine; PCP Internal Medicine; Visit Provider Internal Medicine | DX: R10.9 Unspecified abdominal pain (principal) | CPT/HCPCS: 93010 ==

== ENCOUNTER → 2025-04-04 15:53 | Outpatient (BNV) | payer MEDICARE, MEDICAID, SELFPAY | PROVIDERS: Emergency Provider Emergency Medicine; PCP Internal Medicine; Visit Provider Radiology Diagnostic Radiology | DX: R10.9 Unspecified abdominal pain (principal) | CPT/HCPCS: 74018 ==

== ENCOUNTER 2025-04-12 11:01 | Outpatient (AMB) | payer MEDICARE, MEDICAID, SELFPAY ==
--- NOTE | 2025-04-12 11:04 | A.OFFPC_ITS ---
Vital Signs 04/12/25 11:06 Height 5 ft 1 in Weight 207 lb BMI 39.1 BP 158/82 H Blood Pressure Location Lt brachial Position Sitting Intake Visit Reasons: ABD pain Intake Note: Patient here for abdominal pain follow up seen [place] [facility] [place] Money Advisor Required: No Accompanied by: Self / Same As Patient Allergies cyclobenzaprine (From Flexeril) Allergy (Intermediate, Verified 04/12/25 11:17) Dizziness orphenadrine (From Norflex) Allergy (Intermediate, Verified 04/12/25 11:17) Dizziness sarilumab (From Kevzara) Allergy (Intermediate, Verified 04/12/25 11:17) Rash Medication List - Last Reconciled 04/12/25 by Aniyah Friend MD acetaminophen 1,000 mg (2 x 500 mg) PO Q8H PRN albuterol sulfate 90 mcg/actuation 2 inhalations PO Q4H PRN albuterol sulfate 2.5 mg (3 mL) inhalation Q4-6H PRN 30 days bisacodyl 10 mg (2 x 5 mg) PO .daily 90 days blood pressure monitor As directed blood pressure test kit-large As directed blood sugar diagnostic (FreeStyle Lite Strips) Use 1 test strip once a day blood-glucose meter (FreeStyle Lite Meter kit) E11.9 ONCE A DAY [cock up splint wear on the right wrist at night ] dicyclomine 20 mg PO TID PRN 30 days docusate sodium (Col-Rite) 100 mg PO BID dulaglutide (Trulicity) 1.5 mg (0.5 mL) subcut QWEEK 4 weeks fluticasone propionate 110 mcg/actuation 2 puffs inhalation BID 30 days fluticasone propionate 220 mcg/actuation 2 puffs inhalation BID gabapentin 300 mg PO TID 30 days ibuprofen 400 mg PO Q6H PRN ibuprofen 600 mg PO Q8H PRN ipratropium-albuterol 0.5 mg-3 mg(2.5 mg base)/3 mL 3 mL inhalation Q6H PRN lancets (FreeStyle Lancets) Use 1 lancet once a day as needed losartan 100 mg PO DAILY 30 days meclizine 50 mg PO DAILY PRN metformin 1,000 mg PO BID 90 days nabumetone 750 mg PO BID 30 days omeprazole 20 mg PO DAILY ondansetron 4 mg PO TID PRN 5 days ondansetron 4 mg PO Q6H PRN Orencia ClickJect (abatacept) 125 mg subcut QWEEK NS peg 3350-electrolytes 236-22.74-6.74 -5.86 gram (Golytely) 240 mL PO Q10M polyethylene glycol 3350 (Miralax) 17 grams PO DAILY rosuvastatin 10 mg PO DAILY 90 days sennosides (senna) 8.6 mg PO BEDTIME PRN 7 days sucralfate 1 g PO TID PRN tramadol 50 mg PO Q8H PRN Tobacco use date assessed: 10/31/24 Dental Screening Dental Screen Date: 10/31/24 HPI HPI Comments History of Present Illness Details The patient is a 65-year-old female presenting with abdominal pain and diarrhea. The abdominal pain has been present for almost a year, localized to the right upper quadrant. She visited the hospital last month, where a CT scan of the abdomen was performed and returned normal results. A light base test was also conducted and was negative. The patient follows up with gastroenterology, which has recommended a colonoscopy. She reports experiencing diarrhea consistently. Her gallbladder has been removed, and she has been prescribed cholestyramine as needed for diarrhea. The patient has a history of diabetes mellitus type 2, with the last recorded HbA1c being 7.6% in February. She will start pioglitazone after discontinuing metformin to see if her symptoms improve. She also has a history of hypertension, but her blood pressure was elevated today. Lisinopril was discontinued due to a cough, and she has not been taking losartan, which has now been refilled. The patient denies any chest pain or shortness of breath. [facility] Medical History Urinary tract infection Bronchitis Morbid obesity with BMI of 45.0-49.9, adult Sacroiliitis Rheumatic fever TIA (transient ischemic attack) Right-sided back pain History of COVID-19 Asthma exacerbation Hospital discharge follow-up Sacroiliitis Renal calculi Costovertebral angle tenderness Burning with urination Disc degeneration, lumbar Spondylosis of cervical spine Spondylosis of lumbar spine Pleuritic pain Restrictive lung disease Morbid obesity Asthma Dyslipidemia Essential hypertension Vaginal modesta Seropositive rheumatoid arthritis Rheumatoid arthritis Diabetes Surgical History History of cholecystectomy Hx of colonoscopy (09/01/19) History of surgery on wrist Family History Father Diabetes mellitus Myocardial infarction Hypertension CVD (cardiovascular disease) Mother Diabetes mellitus CVD (cardiovascular disease) Sister No problems noted. Son No problems noted. Son No problems noted. Son No problems noted. Daughter Thyroiditis Daughter No problems noted. Daughter No problems noted. Daughter No problems noted. Daughter No problems noted. Other Asthma exacerbation Social History Housing: Apartment Alcohol intake: never Patient Tobacco Use Status: Never used Tobacco e-Cigarette/Vaping Use: Never Used Second Hand Smoke Exposure: No service: No Current occupational status: disabled Sexual orientation: Straight/Heterosexual Gender identity: Female Cognitive needs: No Hearing needs: No Vision needs: No Female Reproductive History Menstrual Age of Menarche: 11 Date of menopause: 01/22/10 Questionnaire PHQ-9 Over the last 2 weeks, how often have you been bothered by any of the following problems? 7. Trouble concentrating on things, such as reading the newspaper or watching television: several days 8. Moving or speaking so slowly that other people could have noticed. Or the opposite - being so fidgety or restless that you have been moving around a lot more than usual: several days 9. Thoughts that you would be better off or of hurting yourself in some way: several days Source: Developed by Drs. Spencer Gonzalez, Clayton Cline and colleagues, with an educational anna from [employer] Thrive Questionnaire Date Thrive assessed: 04/12/25 I am a: Patient SONA-7 AMB Questionnaire SONA-7 Date SONA - 7 assessed: 10/31/24 Source: Developed by Drs. Spencer Gonzalez, Clayton Cline and colleagues, with an educational anna from [employer] ([employer] Review of Systems Const All systems reviewed & are unremarkable except as noted in HPI and below Card Denies chest pain at rest, Denies chest pain with activity, Denies edema, Denies irregular heart rhythm, Denies claudication, Denies dyspnea, Denies dyspnea on exertion, Denies orthopnea, Denies paroxysmal nocturnal dyspnea and Denies slow heart rate Resp Denies cough, Denies dyspnea and Denies dyspnea on exertion GI Reports abdominal pain, Denies change in bowel habits, Denies excessive flatus, Reports loose stools, Denies nausea and Denies vomiting Denies urinary incontinence, Denies urinary hesitancy and Denies urinary urgency Musc Denies atrophy, Denies deformity and Denies limited range of motion Skin/Breast Denies bleeding lesions, Denies changing lesions and Denies rash Physical exam (Primary Care) Vital Signs: Last Vital Signs BP 158/82 H 04/12/25 11:06 BMI result Body Mass Index 39.1 BMI Assessment/Plan discussion: High BMI High, discussed plan: lifestyle, weight reduction, dietary and physical activity Tobacco/Smoking Status: Tobacco use Status Tobacco use date assessed 10/31/24 04/12/25 11:11 Patient Tobacco Use Status Never used Tobacco 04/12/25 11:11 Tobacco use type 04/12/25 11:11 e-Cigarette/Vaping Use Never Used 04/12/25 11:11 Thrive Assessment: Date of Thrive Assessment Date Thrive assessed 04/12/25 04/12/25 11:11 Resp Effort & Inspection: normal respiratory effort Auscultation: clear to auscultation bilaterally Cardio Jugular venous distension: no JVD Rate: regular rate Rhythm: regular rhythm Heart sounds: S1 normal heart sound present and S2 normal heart sound present GI Inspection: Yes normal to inspection Palpation (GI): Soft to palpation and Tenderness to palpation present (GI) in the RUQ Auscultation: normal bowel sounds Extrem General: Yes full ROM Coding Level of Care Code Est Pt Level 4 (42742) Complex EM visit Add On G2211 Diagnoses Type 2 diabetes mellitus with hyperglycemia E11.65 Abdominal pain R10.9 Seropositive rheumatoid arthritis M05.9 Asthma J45.909 Essential hypertension I10 Dyslipidemia E78.5 Time Spent (min) 23 Assessment & Plan Assessment & Plan (1) Type 2 diabetes mellitus with hyperglycemia: Code(s): E11.65 - Type 2 diabetes mellitus with hyperglycemia Category: Medical (2) Abdominal pain: Code(s): R10.9 - Unspecified abdominal pain Category: Medical (3) Seropositive rheumatoid arthritis: Comment: ++RF+++CCP deforming dx in her 40s Humira:08/29 - 03/30 -active disease on exam Enbrel:04/29-08/30 - active disease on exam Xeljanz:08/30-12/29- active disease on exam Kevzara: 01/2021- stopped due to rash Orencia: 01/2021 - present effective MTX in the past - transaminitis Code(s): M05.9 - Rheumatoid arthritis with rheumatoid factor, unspecified Category: Medical (4) Asthma: Comment: Ongoing cough is probably secondary to asthma variant/reactive airways. Code(s): J45.909 - Unspecified asthma, uncomplicated Category: Medical (5) Essential hypertension: Code(s): I10 - Essential (primary) hypertension Category: Medical (6) Dyslipidemia: Code(s): E78.5 - Hyperlipidemia, unspecified Category: Medical Plan The patient will discontinue metformin and start pioglitazone to assess if there is an improvement in diarrhea and abdominal pain. Cholestyramine will be used as needed for diarrhea management. The patient is advised to continue follow-up with gastroenterology for a colonoscopy to further investigate gastrointestinal symptoms. Losartan has been refilled to manage hypertension, given the discontinuation of lisinopril due to a cough. Patient was informed and verbally consented to the use of an ambient scribe for clinic note documentation during this visit. Medications: New cholestyramine (Cholestyramine Light) administer w/meal; avoid other meds within 1hr before or 4-6hr after dose 4 grams PO BID PRN 210 grams 0RF diarrhea 30 days pioglitazone 30 mg PO DAILY 90 tabs 1RF 90 days Refilled losartan 100 mg PO DAILY 30 tabs 4RF hypertension 30 days
[2025-04-12 11:06] VITALS: BP 158/82; BMI 39.1
== END 2025-04-12 11:36 | disposition home or self-care (01) ==
LOC: HO.HMCH 11:02
PROVIDERS: PCP Internal Medicine; Visit Provider Internal Medicine
DX: E11.65 Type 2 diabetes mellitus with hyperglycemia (principal); R10.9 Unspecified abdominal pain; M05.9 Rheumatoid arthritis with rheumatoid factor, unspecified; J45.909 Unspecified asthma, uncomplicated; I10 Essential (primary) hypertension; E78.5 Hyperlipidemia, unspecified

== ENCOUNTER → 2025-04-12 11:01 | Outpatient (BNVA) | payer MEDICARE, MEDICAID, SELFPAY | PROVIDERS: PCP Internal Medicine; Visit Provider Internal Medicine | DX: R10.9 Unspecified abdominal pain (principal); E11.65 Type 2 diabetes mellitus with hyperglycemia; M05.9 Rheumatoid arthritis with rheumatoid factor, unspecified; J45.909 Unspecified asthma, uncomplicated; I10 Essential (primary) hypertension; E78.5 Hyperlipidemia, unspecified | CPT/HCPCS: 99212 ==

== ENCOUNTER 2025-05-08 15:41 | Outpatient (AMB) | payer MEDICARE, MEDICAID, SELFPAY ==
--- OUTSIDE RECORDS SUMMARY | 2024-12-28 08:07 | XMS_ITS ---
Author Organization [facility] Address [facility] [place] [address] Care Team Providers Care Internal Combustion Engine Inspector Name Role Phone NORTH MOYER BOOEnmanuel Primary Care Provide r [phone] SE, CSI BQTAS SE Unavailable [phone] PACO DE [place] VE[place] Unavailable [phone] Allergies Allergen (clinical drug ingredient) Drug/Non Drug Allergy documented on EMR Reaction Allergy Type Onset Date Status Flexeril dizziness Drug Allergy Active Norflex dizziness Drug Allergy Active Results Component Value Reference Range Notes CBC + DIFF Reviewed date:12/28/2024 02:51:15 PM Interpretation: Performing Lab: Notes/Report: CBC Col. Tabitha. Med. P.R. ORDER [id number] PERFORMED AT: Pat. No.: [id number] [facility] [place] Paid 5 Cents [address] Exp: 01/08/2025 [place] [address] Num: [id number] DIRECTOR: JAIME SARAVIA LICENSE.: [id number] CLIA: [id number] WHITE BLOOD COUNT 7.0 4.8-10.8 X10 RED BLOOD COUNT 4.49 3.8-5.8 X10 HEMOGLOBIN 13.8 12-16 g/dL HEMATOCRIT 41.7 37-47 % MCV 92.8 76-96 fL MCH 30.7 27-32 pg MCHC 33.0 31-35 g/dl RDW 12.6 11-16 % PLATELET COUNT 195 130-400 10 MPV 8.6 6-10 FL NE % 59.6 45-70 % LY % 27.1 20-40 % MO % 5.9 3-10 % EO % 7.2 1-5 % BA % 0.3 0-1 % NE # 4.2 2-7.5 x10 LY # 1.9 1.5-4 x10 MO # 0.4 0.2-0.8 x10 EO # 0.5 0-0.4 x10 BA # 0.0 0-0.1 x10 BY: DxH 560 RBC MORPHOLOGY 1 MAYANK INFLUENZA AG A & B Reviewed date:12/28/2024 02:51:15 PM Interpretation: Performing Lab: Notes/Report: A negative test result may occur if the level of antigen in a sample is Col. Tabitha. Med. P.R. ORDER [id number] PERFORMED AT: below the detection limit of the test. Pat. No.: [id number] [facility] [place] Test results must be evaluated in conjunction with other clinical data. Paid 5 Cents [address] Negative test results do not rule out other non-influenza viral infections Exp: 01/08/2025 [place] [address] Positive test results do not identify specific influenza A virus subtypes Num: [id number] Individuals who recieved nasally influenza A vaccine may have positive DIRECTOR: JAIME SARAVIA test results for up to three days after vaccination. LICENSE.: [id number] CLIA: [id number] INFLUENZA A ANTIGEN NEGATIVE NEGATIVE INFLUENZA B ANTIGEN NEGATIVE NEGATIVE METHOD: STATUS COVID-19/FLU A&B COVID-19 ANTIGEN Reviewed date:12/28/2024 02:51:15 PM Interpretation: Performing Lab: Notes/Report: -- Positive results indicate the presence of COVID-19 antigen, but clinical correlation with patient history and other diagnostic information is necessary to determine infection status. Positive results do not rule out should be treated as presumptive and confirmation with a molecular assay. Negative test results are not intended to rule in other non-SARS viral bacterial infection or co-infection with other viruses and do not differentiate between SARS-CoV and SARS-CoV-2. -- Negative results, from patients with symptom onset beyond seven days, LICENSE.: [id number] CLIA: [id number] DIRECTOR: JIAME SARAVIA Num: [id number] bacterial infections. The presence of mupirocin may interfere with the COVID-19 Ag test and may cause false negative results. -- COVID-19 Ag Test has not been FDA cleared or approved; but has been authorized by FDA under EUA for use by authorized laboratories. For in vitros Diagnostic Use Only. 1 KOV Exp: 01/08/2025 [place] Paid 5 Cents [address] Pat. No.: [id number] [facility] [place] Col. Tabitha. Med. P.R. ORDER [id number] PERFORMED AT: COVID-19 Ag NEGATIVE NEGATIVE METHOD: STATUS COVID-19/FLU A&B CHEST-AP ONLY *1 VIEW Reviewed date:01/01/2025 08:48:19 AM Interpretation: Performing Lab: Notes/Report: See Below For Report Chest PA: [id number].Report Text See Below For Report REASON FOR VISIT Paciente refiere estoypresentando tos frecuente y de tanto toser me duele aarea de espalda lado derecho desde hacen varios alicea me he dado terapias tennille no he LOIS ortiz RN, BSN Lic. [id number],PENSACOLA 12/28/2024 12:27:51 PM > Medications Medication SIG (Take, Route, Frequency, Duration) Notes Start Date End Date Status Oseltamivir Phosphate 75 MG 1 capsule Orally Twice a day for 5 days 09/29/2024 Unknown Loratadine 10 MG 1 tablet Orally Once a day 09/29/2024 Unknown Tussin DM 100-10 MG/5ML 10 mL as needed Orally Every 6 hours 09/29/2024 Unknown Hpaecpkn-Xbqqgzjem-ID 1 % 4 drops into a ffected ear RIGHT EAR Otic Three times a day for 7 days 01/12/2019 Unknown Naproxen 500 MG 1 tablet if pain Ora lly every 12 hrs 09/29/2024 Unknown Gabapentin 300 MG 1 capsule Orally TWO times a day for 30 day(s) 02/09/2019 Unknow n Nabumetone 750 MG 1 tablet Orally Twic e a day for as needed 07/21/2018 Unknown Montelukast Sodium 10 MG 1 tablet in the evening Orally Once a day for 30 day(s) 07/21/2018 Unknown Ranitidine HCl 300 MG 1 tablet at bedtim e Orally Once a day for 30 day(s) 07/21/2018 Unknown predniSONE 5 MG 1 tablet Orally Once a day for 30 day(s) Unknown metFORMIN HCl 500 MG 1 tablet with meals Orally Once a day for 30 day(s) 07/21/2018 Unknown Lisinopril-hydroCHLOROthia zide 20-25 MG 1 tablet Orally Once a day for 30 day(s) 07/21/2018 Unknown Problems Problem Type SNOMED Code ICD Code Onset Dates Problem Status W/U Status Risk Notes Problem Asthma exacerbation (J45.901) Active confirmed Vital Signs Temperature 37.0 C 12/28/2024 Blood pressure systolic 155 mm Hg 12/29/19 25 Blood pressure diastolic 73 mm Hg 025 Heart Rate 81 /min 12/28/2024 Respiratory Rate 19 /min 12/28/2024 Height 61 in 12/28/2024 Weight 210 lbs 12/28/2024 BMI 39.67 kg/m2 12/28/2024 Oximetry 98 % 12/28/2024 Height-cm 154.94 cm 12/28/2024 Weight-kg 95.25 kg 12/28/2024 CÉSAR BARBA. GENETICS NURSE Lic. [id number], GENE 12/28/2024 02:19:43 PM >Paciente no refiere dolor al momento de renato. Encounters Encounter Location Date Provider Diagnosis [facility] [place] [address] [place], [place] [id number] 12/28/2024 PACO HAWLEY Cough R05.9 ; Low back pain M54.50 and Asthma exacerbation J45.901 Assessments Encounter Date Diagnosis (ICD Code) Assessment Notes Treatment Notes Treatment Clinical Notes Section Notes 12/28/2024 Cough (ICD-10 - R05.9) 1) TUSSIN 10 ML PO 2) [id number] MG IV 3) SOLUMEDROL 125 M GIV 4) ALBUTEROL 0.083 + ATROVENT 0.02 BY PN ONCE PACO [place] 12/28/2024 12:50:51 PM > CÉSAR BARBA. GENETICS NURSE Lic. [id number], GENE 12/28/2024 12:57:44 PM > Orden tomada. CÉSAR BARBA. GENETICS NURSE Lic. [id number], GENE 12/28/2024 12:57:44 PM > CÉSAR BARBA. GENETICS NURSE Lic. [id number], GENE 12/28/2024 01:10:58 PM > Se recibe paciente de area de [place], estable dentro de [place] condicion, en compania de [place] familiar, alerta y orientada en tiempo, lugar y persona, ambulando. Se orienta a paciente y familiar sobre orden medica y procedimiento, refiere entender. Se ubica paciente en cama #2, con barandas elevadas y timbre accesible por seguridad. Se corroboran alergias y se provee privacidad a paciente. Se canaliza paciente en antecubital deondre con angio #20, bajo medidas asepticas y de seguridad, acceso venoso patente, heriberto de edema y enrojecimiento. Se colectan muestras de laboratorio kyle orden medica: CBC + DIFF, COVID 19 ANTIGEN, INFLUENZA AG A y B, bajo medidas asepticas y de seguridad. Se rotulan las muestras debidamente y se envian al laboratorio. Se administran medicamentos kyle orden medica: Tussin 10ml PO, Toradol 30mg IV, Solumedrol 125mg IV, bajo medidas asepticas y de seguridad. Paciente no presenta reaccion adversa al momento. Se mantiene bajo observacion y se orienta a notificar cambios, refiere entender. Dr. Joselyn gatesoca terapia respiratoria Albuterol 0.083% + Atrovent 0.02 10/11. CÉSAR BARBA. GENETICS NURSE Lic. [id number], GENE 12/28/2024 01:10:58 PM > CÉSAR BARBA. CÉSAR BARBA. GENETICS NURSE Lic. [id number], GENE 12/28/2024 02:10:54 PM > Paciente es re evaluada por Dr. Gutierrez y es cortez de renato en condicion estable, alerta y orientado en tiempo, lugar y persona. Se educa sobre instrucciones medicas, tratamiento a seguir en el hogar, seguimiento con medico primario, y a pasar con el personal de servicio al paciente para completar proceso de renato, refiere entender. Vitales medidos y documentados previos al renato. Paciente refiere escala de dolor en 0 al momento del renato. CÉSAR BARBA. GENETICS NURSE Lic. [id number], GENE 12/28/2024 02:10:55 PM > 12/28/2024 Low back pain (ICD-10 - M54.50) 12/28/2024 Asthma exacerbation (ICD-10 - J45.901) Plan Of Treatment Treatment Notes Assessment Notes Cough 1) TUSSIN 10 ML PO 2) [id number] MG IV 3) SOLUMEDROL 125 M GIV 4) ALBUTEROL 0.083 + ATROVENT 0.02 BY PN ONCE [place]O [place] A 12/28/2024 12:50:51 PM > CÉSAR OSBORNE RN BSN Lic. [id number], GENE 12/28/2024 12:57:44 PM > Orden tomada. CÉSAR BARBA. GENETICS NURSE Lic. [id number], GENE 12/28/2024 12:57:44 PM > CÉSAR OSBORNE RN BSN Lic. [id number], GENE 12/28/2024 01:10:58 PM > Se recibe paciente de area de [place], estable dentro de [place] condicion, en compania de [place] familiar, alerta y orientada en tiempo, lugar y persona, ambulando. Se orienta a paciente y familiar sobre orden medica y procedimiento, refiere entender. Se ubica paciente en cama #2, con barandas elevadas y timbre accesible por seguridad. Se corroboran alergias y se provee privacidad a paciente. Se canaliza paciente en antecubital deondre con angio #20, bajo medidas asepticas y de seguridad, acceso venoso patente, heriberto de edema y enrojecimiento. Se colectan muestras de laboratorio kyle orden medica: CBC + DIFF, COVID 19 ANTIGEN, INFLUENZA AG A y B, bajo medidas asepticas y de seguridad. Se rotulan las muestras debidamente y se envian al laboratorio. Se administran medicamentos kyle orden medica: Tussin 10ml PO, Toradol 30mg IV, Solumedrol 125mg IV, bajo medidas asepticas y de seguridad. Paciente no presenta reaccion adversa al momento. Se mantiene bajo observacion y se orienta a notificar cambios, refiere entender. Dr. Gutierrez coloca terapia respiratoria Albuterol 0.083% + Atrovent 0.02 10/11. CÉSAR BARBA. GENETICS NURSE Lic. [id number], GENE 12/28/2024 01:10:58 PM > CÉSAR BARBA. CÉSAR BARBA. GENETICS NURSE Lic. [id number], GENE 12/28/2024 02:10:54 PM > Paciente es re evaluada por Dr. Gutierrez y es cortez de renato en condicion estable, alerta y orientado en tiempo, lugar y persona. Se educa sobre instrucciones medicas, tratamiento a seguir en el hogar, seguimiento con medico primario, y a pasar con el personal de servicio al paciente para completar proceso de renato, refiere entender. Vitales medidos y documentados previos al renato. Paciente refiere escala de dolor en 0 al momento del renato. CÉSAR BARBA. GENETICS NURSE Lic. [id number], GENE 12/28/2024 02:10:55 PM > Progress Notes * ANOOP DAVALOSLauraDOB: (64 yo F)Acc No.[id number]:12/28/2024 Patient: Laura ABURTO Provider: Justin HAWLEY MD :1960 A ge:64 Y S ex:Female Date:12/28/2024 Address:[address] [place] [address], [id number] Pcp:ASAD SANZ NO Check In:12:29 PM BOTCheck O ut:02:19 PM BOT Subjective: * Chief Complaints: * 1 . Paciente refiere estoypresentando tos frecuente y de tanto toser me duele aarea de espalda lado derecho desde hacen varios alicea me he dado terapias tennille no he angel . 2. LOIS DELUNA RN, BSN Lic. [id number], [place] 12/28/2024 12:27:51 PM >. * HPI: D epression Screening: PHQ-2 (2015 Edition) L ittle interest or pleasure in doing things? N ot at all, F eeling down, depressed, or hopeless? N ot at all, T otal Score 0 . M EDICO: A 64 Y/O F COMES TO ER DUE TO FATIGUE SINCE 2 WKS AGO. ALSO REFERS BACK ACHE SINCE 2 WKS AGO. ALLERGY TO NORFLEX AND FLEXERIL. PMH: RA, ASTHMA AND HTN. PACO DE [place] 12/28/2024 12:48:06 PM >. * ROS: E R: Sistema Cardiorespiratorio A lteracion en el sistema respiratorio relacionado a deterioro de [place] entorno manifestado por tos. M odo de llegada M odo de llegada, caminando, vino acompanado MADRE . E stado emocional S e observa paciente, calmado. E stado mental a lerta, orientado. * Medical History: A RTRITIS REUMATOIDEA, DIABETICA, ASMA, RENATO PRESION. * Surgical History: c holecystectomy . * Hospitalization/Major Diagno stic Procedure: D enies Past Hospitalization. * Social History: S IM History: S IM Social History F untional Status A s Follows, S e bana sin asistencia Y es, S e viste sin asistencia Y es, C katherine sin asistencia Y es, P adece de incontinencia N o, P aciente orientado en Y es, S e siente edmundo en [place] se realaciona con las personas a diario S i, D rug use N o, S exual Orientation S traight (not lesbian or blackburn), G анна Identity F emale, H ousehold A s follows, N umero de dependientes 1 , C uantos viven en la casa? 1 , . .Ultimo nivel escolar 1 2, . .Vivienda c on radha, . .Sospecha de maltrato N o, . .Viaje reciente fuera de [place] <2 meses N o, T ransfusion/inmunisaciones S iguiente, . .Transfusiones de maura?No, . .Reaccion a transfusion N o, . .Inmunizacion S i, . .Inmunizacion Tetano Si, N ececidades para comunicacion o acomodo N inguna, P aciente o familiar comprende requeridos e instrucciones de [place] doctor? S i, P aciente expresa chrissie para el cumplimiento de [place] tratamiento N o. S ala de Emergencia: H istorial Social V ivienda C on radha, S ospecha de maltrato, violencia, u abuso sexual? N o, V iaje N o viajo fuera de P.R., I nmunizacion al norah S i, I nmunizacion contra el tetano S i, T ransfuciones componentes sanguineos N o, D eclina ser transfundido S i, M odo de llegada A mbulando, A companado pro Hijo. C OVID-19: C uestionario Riesgo COVID-19 F echa 0 12/28/2024, P resenta algun sintoma: T os, S e simmons realizado recientemente la prueba rapida o molecular para el COVID 19 N o, C onoce a alguien que haya sido positivo al COVID-19 N o, H a participado de eventos publicos, sociales o familiares en los ultimos 14 alicea N o, H a viajado fuera de [place] o simmons estado en contacto con alguien que haya estado fuera de NH en los pasados 14 alicea N o, S e simmons vacunado contra el COVID-19 R efuerzo. * Medications: U nknown Lisinopril-hydroCHLOROthiazide 20-25 MG Tablet 1 tablet Orally Once a day , Unknown metFORMIN HCl 500 MG Tablet 1 tablet with meals Orally Once a day , Unknown Montelukast Sodium 10 MG Tablet 1 tablet in the evening Orally Once a day , Unknown Nabumetone 750 MG Tablet 1 tablet Orally Twice a day , Unknown predniSONE 5 MG Tablet 1 tablet Orally Once a day , Unknown Ranitidine HCl 300 MG Tablet 1 tablet at bedtime Orally Once a day , Unknown Gabapentin 300 MG Capsule 1 capsule Orally TWO times a day , Unknown Oseltamivir Phosphate 75 MG Capsule 1 capsule Orally Twice a day , Unknown Tussin DM 100-10 MG/5ML Syrup 10 mL as needed Orally Every 6 hours , Unknown Loratadine 10 MG Tablet 1 tablet Orally Once a day , Unknown Naproxen 500 MG Tablet 1 tablet if pain Orally every 12 hrs , Unknown Chfxdlcp-Hghprzrkp-LX 1 % Solution 4 drops into affected ear RIGHT EAR Otic Three times a day , Medication List reviewed and reconciled with the patient * Allergies: N orflex: dizziness - Allergy, Flexeril: dizziness - Allergy. Objective: * Vitals: Ht 61in 12/28/2024 12:30:31 PM BOT Wt* 210 lbs 12/28/2024 12:30:31 PM BOT DEVEN Eleazar DELUNA RN, BSN Lic. [id number] BMI* 39.67Index 12/28/2024 12:30:31 PM BOT DEVEN DELUNA RN, BSN Lic. [id number] Pain scale* 51-10 12/28/2024 12:30:31 PM BOT DEVEN P BARRETT DELUNA RN, BSN Lic. [id number] BP* 155/73mm Hg 12/28/2024 02:19:24 PM BOT GENE L OPEZ JAMESON. GENETICS NURSE Lic. 60021 152/79 mm Hg 12/28/2024 12:35:00 PM BOT DEVEN P BARRETT DELUNA RN, BSN Lic. [id number] HR* 81/min 12/28/2024 02:19:24 PM BOT GENE L OPEZ JAMESON. GENETICS NURSE Lic. [id number] 79 /min 12/28/2024 12:35:00 PM BOT DEVEN P BARRETT DELUNA RN, BSN Lic. [id number] RR* 19/min 12/28/2024 02:19:24 PM BOT GENE L OPEZ JAMESON. GENETICS NURSE Lic. [id number] 23 /min 12/28/2024 12:35:00 PM BOT DEVEN P BARRETT DELUNA RN, BSN Lic. [id number] Temp* 37.0C 12/28/2024 02:19:24 PM BOT GENE L OPEZ JAMESON. GENETICS NURSE Lic. 34502 37.0 C 12/28/2024 12:35:00 PM BOT DEVEN P BARRETT DELUNA RN, BSN Lic. 47938 Oxygen sat %* 98% 12/28/2024 02:19:24 PM BOT GENE L OPEZ JAMESON. GENETICS NURSE Lic. 87201 97 % 12/28/2024 12:35:00 PM BOT DEVEN P BARRETT DELUNA RN, BSN Lic. 50485 LMP* post 12/28/2024 12:30:31 PM BOT DEVEN P BARRETT DELUNA RN, BSN Lic. [id number] Glucose:* 153 12/28/2024 12:35:00 PM BOT DEVEN P BARRETT DELUNA RN, BSN Lic. 56415 Ht-cm* 154.94 cm 12/28/2024 12:30:31 PM BOT DEVEN P BARRETT DELUNA RN, BSN Lic. 57400 Wt-kg* 95.25 kg 12/28/2024 12:30:31 PM BOT DEVEN P BARRETT DELUNA RN, BSN Lic. [id number] CÉSAR OSBORNE RN BSN Lic. [id number], GENE 12/28/2024 02:19:43 PM >Paciente no refiere dolor al momento de renato. * Physical Examination: H EENT: PERRLA, MOIST ORAL MUCOSA NECK: SUPPLE HEART: RRR LUNGS: CLEAR TO AUSCULTATION, ACTIVE COUGHING ABDOMEN: + BS, SOFT/DEPRESIBLE, NO GUARDING, NO REBOUND, NO MASSES NEURO: ALERT, ACTIVE, ORIENTED X 3, NO ACUTE NEUROLOGIC DEFICIT MUSC: PARAVERTEBRAL LUMBAR TENDERNSS GUTIERREZSHANTAL MARQUEZPACO DE JESUS 12/28/2024 12:49:25 PM > . Assessment: * Assessment: 1. C ough - R05.9 (Primary) 2 . L ow back pain - M54.50 3 .?Asthma exacerbation - J45.901 Plan: * Treatment: ?LAB: INFLUENZA AG A & B (Collection Date & Time - 12/28/2024 12:51 PM)* CÉSAR OSBORNE RN BSN Lic. 869 78, [facility] 12/28/2024 12:59:31 PM > ?LAB: COVID-19 ANTIGEN (Collection Date & Time - 12/28/2024 12:51 PM)* CÉSAR OSBORNE RN BSN Lic. 869 78, [facility] 12/28/2024 12:59:28 PM > ?Imaging: CHEST-AP ONLY *1 VIEW (Performed Date - 12/28/2024)* LANDON SAM RN, BSN Lic. [id number], KEN 12/28/2024 12:56:19 PM > Se escolta paciente a ubaldo-x kyle orden medica. Notes: 1) TUSSIN 10 ML PO 2) [id number] MG IV 3) SOLUMEDROL 125 M GIV 4) ALBUTEROL 0.083 + ATROVENT 0.02 BY PN ONCE [place] 12/28/2024 12:50:51 PM > CÉSAR OSBORNE RN BSN Lic. [id number], GENE 12/28/2024 12:57:44 PM > Orden tomada. CÉSAR OSBORNE RN BSN Lic. [id number], GENE 12/28/2024 12:57:44 PM > CÉSAR BARBA. GENETICS NURSE Lic. [id number], GENE 12/28/2024 01:10:58 PM > Se recibe paciente de area de [place], estable dentro de [place] condicion, en compania de [place] familiar, alerta y orientada en tiempo, lugar y persona, ambulando. Se orienta a paciente y familiar sobre orden medica y procedimiento, refiere entender. Se ubica paciente en cama #2, con barandas elevadas y timbre accesible por seguridad. Se corroboran alergias y se provee privacidad a paciente. Secanaliza paciente en antecubital deondre con angio #20, bajo medidas asepticas y de seguridad, acc eso venoso patente, heriberto de edema y enrojecimiento. Se colectan muestras de laboratorio kyle orden medica: CBC + DIFF, COVID 19 ANTIGEN, INFLUENZA AG A y B, bajo medidas asepticas y de seguridad. Se rotulan las muestras debidamente y se envian al laboratorio. Se administran medicamentos kyle orden medica: Tussin 10ml PO, Toradol 30mg IV, Solumedrol 125mg IV, bajo medidas asepticas y de seguridad. Paciente no presenta reaccion adversa al momento. Se mantiene bajo observacion y se orienta a notificar cambios, refiere entender. Dr. Gutierrez coloca terapia respiratoria Albuterol 0.083% + Atrovent 0.02 10/11. CÉSAR BARBA. GENETICS NURSE Lic. [id number], GENE 12/28/2024 01:10:58 PM > CÉSAR BARBA. GENETICS NURSE Lic. [id number], GENE 12/28/2024 02:10:54 PM > Paciente es re evaluada por Dr. Gutierrez y es cortez de renato en condicion estable, alerta y orientado en tiempo, lugar y persona. Se educa sobre instrucciones medicas, tratamiento a seguir en el hogar, seguimiento con medico primario, y a pasar con el personal de servicio al paciente para completar proceso de renato, refiere entender. Vitales medidos y documentados previos al renato. Paciente refiere escala de dolor en 0 al momento del renato. CÉSAR BARBA. GENETICS NURSE Lic. [id number], GENE 12/28/2024 02:10:55 PM >?? * Procedure Codes: 8 5025 COMPLETE CBC W/AUTO DIFF WBC, 52189 EMERGENCY DEPT VISIT, [address] [place], [address] INFLUENZA ASSAY W/OPTIC A Y B, 94036 X-RAY EXAM CHEST 1 VIEW, 18879 EMERGENCY DEPT VISIT MOD MDM * Preventive Medicine: Myra de Emergencia: E ducaciones myra de emergencia S e educo al paciente y/o familiar sobre M edidas de seguridad en myra de emergencias, Prevencion de caidas, Tratamineto ofrecido, Manejo de condicion. UDS Reporting: A dult Weight Counseling P hysical activity Recomended Y es.? I NSTRUCCIONES GENERALES DE RENATO Vaya con [place] medico [...] sara myra de emergencias para ser re-evaluado. 1) ALBUTEROL 0.083 BY PN QID X 7D 2) P ULMICORT 0.5 BID X 7D 3) TESSALON 100 QID X 7D PACO [place] 12/28/2024 02:04:47 PM > . * Images: Billing Information: * Visit Code: * Procedure Codes: 15873 COMPLETE CBC W/AUTO DIFF WBC. 17393 EMERGENCY DEPT VISIT. [address] [place]. [address] INFLUENZA ASSAY W/OPTIC A Y B. [address]2270 X-RAY EXAM CHEST 1 VIEW. 81786 EMERGENCY DEPT VISIT MOD MDM. * Sign off status: Completed true * Provider: Justin HAWLEY MD Date: 0 12/28/2024 Generated for Printi ng/Famaguig/eTransmitting on: 0 05/08/2025 04:21 PM BOT History and Physical Notes * HPI (History of Present Illness) Category Sub-Category Detail Notes Category Not es MEDICO A 64 Y/O F COMES TO ER DUE TO FATIGUE SINCE 2 WKS AGO. ALSO REFERS BACK ACHE SINCE 2 WKS AGO. ALLERGY TO NORFLEX AND FLEXERIL. PMH: RA, ASTHMA AND HTN. [place]O [place] 12/28/2024 12:48:06 PM > Depression Screening PHQ-2 (2015 Edition) Little interest or pleasure in doing things?: Not at all Feeling down, depressed, or hopeless?: N ot at all Total Score: 0 Physical Examination Category Sub-Category Detail Notes Section Note s HEENT: PERRLA, MOIST ORAL MUCOSA NECK: SUPPLE HEART: RRR LUNGS: CLEAR TO AUSCULTATION, ACTIVE COUGHING ABDOMEN: + BS, SOFT/DEPRESIBLE, NO GUARDING, NO REBOUND, NO MASSES NEURO: ALERT, ACTIVE, ORIENTED X 3, NO ACUTE NEUROLOGIC DEFICIT MUSC: PARAVERTEBRAL LUMBAR TENDERNSS PACO DE [place] 12/28/2024 12:49:25 PM >
[2025-05-08 15:50] VITALS: BP 124/70; PULSE 69; O2SAT 97; BMI 37.8
--- NOTE | 2025-05-08 15:50 | A.OFFVIS_ITS ---
Vital Signs 05/08/25 15:50 Height 5 ft 1 in Weight 200 lb BMI 37.8 BP 124/70 Blood Pressure Location Lt brachial Position Sitting Pulse 69 Pulse Source Pulse Oximeter Pulse Oximetry (%) 97 Oxygen Delivery Method Room Air Intake Visit Reasons: Cough Intake Note: pt is here for follow up and states she is here for asthma, at times she is short of breath, tightening in the chest and yes wheezing Engine Dispatcher Required: No Allergies cyclobenzaprine (From Flexeril) Allergy (Intermediate, Verified 05/08/25 16:04) Dizziness orphenadrine (From Norflex) Allergy (Intermediate, Verified 05/08/25 16:04) Dizziness sarilumab (From Kevzara) Allergy (Intermediate, Verified 05/08/25 16:04) Rash Medication List - Last Reconciled 05/08/25 by Deena Graned MD acetaminophen 1,000 mg (2 x 500 mg) PO Q8H PRN albuterol sulfate 90 mcg/actuation 2 inhalations PO Q4H PRN bisacodyl 10 mg (2 x 5 mg) PO .daily 90 days blood pressure monitor As directed blood pressure test kit-large As directed blood sugar diagnostic (FreeStyle Lite Strips) Use 1 test strip once a day blood-glucose meter (FreeStyle Lite Meter kit) E11.9 ONCE A DAY cholestyramine (Cholestyramine Light) 4 grams PO BID PRN 30 days [cock up splint wear on the right wrist at night ] dicyclomine 20 mg PO TID PRN 30 days docusate sodium (Col-Rite) 100 mg PO BID dulaglutide (Trulicity) 1.5 mg (0.5 mL) subcut QWEEK 4 weeks fluticasone propionate 110 mcg/actuation 2 puffs inhalation BID 30 days gabapentin 300 mg PO TID 30 days ibuprofen 400 mg PO Q6H PRN ipratropium-albuterol 0.5 mg-3 mg(2.5 mg base)/3 mL 3 mL inhalation Q6H PRN lancets (FreeStyle Lancets) Use 1 lancet once a day as needed losartan 100 mg PO DAILY 30 days meclizine 50 mg PO DAILY PRN nabumetone 750 mg PO BID 30 days omeprazole 20 mg PO DAILY ondansetron 4 mg PO Q6H PRN Orencia ClickJect (abatacept) 125 mg subcut QWEEK NS peg 3350-electrolytes 236-22.74-6.74 -5.86 gram (Golytely) 240 mL PO Q10M pioglitazone 30 mg PO DAILY 90 days polyethylene glycol 3350 (Miralax) 17 grams PO DAILY rosuvastatin 10 mg PO DAILY 90 days sennosides (senna) 8.6 mg PO BEDTIME PRN 7 days sucralfate 1 g PO TID PRN tramadol 50 mg PO Q8H PRN Do you need a note to return to daycare/school/sports/work: No HPI HPI Cough: Details: ZEKE COMES TODAY FOR A SPECIAL VISIT COMPLAINING THAT SHE IS HAVING INCREASED AMOUNT OF COUGH. SHE HAS HAD NO RECENT INFECTION. COUGH IS MOSTLY DRY. SHE IS USING FLOVENT-110 2 PUFFS B.I.D.. PREVIOUSLY, I HAD PRESCRIBED ADVAIR 250-54 HER BUT THIS WAS NOT COVERED BY HER INSURANCE. I THINK SHE DOES NEED TO USE A LONG-ACTING BRONCHODILATOR WITH FLOVENT. SHE IS NONSMOKER. [facility] Medical History Urinary tract infection Bronchitis Morbid obesity with BMI of 45.0-49.9, adult Sacroiliitis Rheumatic fever TIA (transient ischemic attack) Right-sided back pain History of COVID-19 Asthma exacerbation Hospital discharge follow-up Sacroiliitis Renal calculi Costovertebral angle tenderness Burning with urination Disc degeneration, lumbar Spondylosis of cervical spine Spondylosis of lumbar spine Pleuritic pain Restrictive lung disease Morbid obesity Asthma Dyslipidemia Essential hypertension Vaginal modesta Seropositive rheumatoid arthritis Rheumatoid arthritis Diabetes Surgical History History of cholecystectomy Hx of colonoscopy (09/01/19) History of surgery on wrist Family History Father Diabetes mellitus Myocardial infarction Hypertension CVD (cardiovascular disease) Mother Diabetes mellitus CVD (cardiovascular disease) Sister No problems noted. Son No problems noted. Son No problems noted. Son No problems noted. Daughter Thyroiditis Daughter No problems noted. Daughter No problems noted. Daughter No problems noted. Daughter No problems noted. Other Asthma exacerbation Social History Housing: Apartment Alcohol intake: never Patient Tobacco Use Status: Never used Tobacco e-Cigarette/Vaping Use: Never Used Second Hand Smoke Exposure: No service: No Current occupational status: disabled Sexual orientation: Straight/Heterosexual Gender identity: Female Cognitive needs: No Hearing needs: No Vision needs: No Female Reproductive History Menstrual Age of Menarche: 11 Date of menopause: 01/22/10 Review of Systems Const All systems reviewed & are unremarkable except as noted in HPI and below Eyes Reports no additional complaints ENT Reports nasal congestion (Mild off and on) Card Denies chest pain, Denies irregular heart rhythm and Denies leg edema Resp Reports as per HPI and Reports cough (Mild to moderate cough since the COVID 2 weeks ago) GI Reports constipation Reports other (Mild burning with urination) Musc Reports no additional complaints Skin/Breast Reports system reviewed and no additional complaints, except as documented Neuro Reports no additional complaints Psych Reports no additional complaints Physical Exam Vital Signs: Last Vital Signs Pulse 69 05/08/25 15:50 BP 124/70 05/08/25 15:50 Pulse Ox 97 05/08/25 15:50 Oxygen Delivery Method Room Air 05/08/25 15:50 BMI result Body Mass Index 37.8 Const General: comfortable (EXCEPT FOR FREQUENT COUGH.), no acute distress, alert and awake Orientation/consciousness: patient oriented x3 HEENT Other: NASOPHARYNX IS CLEAR ON EXAMINATION, NO EXCESSIVE MUCUS IS NOTED. Head: Yes normal to inspection General nose exam: No nasal polyps present and No nasal discharge present Face and sinus: Yes sinuses nontender Mouth: oropharynx normal (Throat is very clear no exudates noted) Throat: Yes posterior oropharynx normal Eyes General: appearance normal, both eyes and all related structures Neck Neck: Yes normal visual inspection, Yes no lymphadenopathy, Yes trachea midline and Yes no JVD Thyroid: Thyroid normal Chest Chest palpation & inspection: normal inspection of the chest, normal palpation of entire chest wall and no tenderness Resp Other: Percussion note is resonant, breath sounds equal on both sides, moderately distant , Breath sounds are diminished over the basilar areas, otherwise both sides of the chest are clear. The only issue is that with every deep breath she starts having cough. There are no definite wheezes. Cardio Palpation: normal PMI Rate: regular rate Rhythm: regular rhythm Heart sounds: no gallops and no murmurs GI Palpation (GI): Soft to palpation, nontender, No hepatosplenomegaly present and no masses Auscultation: normal bowel sounds Back/Spine/Pelvis Thoracic/Lumbar Spine: thoracic and lumbar spine normal to inspection, thoraco- lumbar ROM limited, thoraco-lumbar spasm and thoracic spinal tenderness Skin General skin exam: no rashes or lesions noted Neuro General: patient oriented x3 and no focal motor deficits Cranial nerves: Yes CN's II-XII intact bilaterally Extrem General: Yes normal to inspection, Yes no clubbing, cyanosis or edema and Yes no calf tenderness Psych Appearance: grossly normal Speech and movement: Normal speech and movement present Results Reviewed Results Reviewed: CT scan of CHEST 02/14/25 IMPRESSION: 1. Mosaic attenuation in the bilateral lungs is a nonspecific finding and can be seen with air trapping. 2. 5 mm right middle and left lower lobe pulmonary nodules. 3. No segmental pneumonia or significant pleural effusion. Assessment & Plan Assessment & Plan (1) Restrictive lung disease: Comment: Clinically she has restrictive lung disease mainly because of her obesity. Code(s): J98.4 - Other disorders of lung Category: Medical Plan: Explained that she needs to lose more weight. Continue to do deep breathing exercises 3 times a day (2) Asthma: Comment: Main problem today is increased amount of cough. Ongoing cough is probably secondary to asthma variant/reactive airways. Code(s): J45.909 - Unspecified asthma, uncomplicated Category: Medical Plan: She is on Flovent-1102 puffs b.i.d., and still continues to have lot of cough. I think she needs a long-acting bronchodilator. I will prescribe Serevent Diskus-50 1 inhalation b.i.d. to use along with Flovent (3) Cough: Comment: Ongoing cough is the main problem . This does not seem to be related to any active respiratory infection. LISINOPRIL WAS REPLACED WITH LOSARTAN 100 MG P.O. DAILY. BLOOD PRESSURE IS WELL CONTROLLED. Most likely the ongoing chronic cough is asthma variant /reactive airways. Code(s): R05.9 - Cough, unspecified Category: Medical Qualifiers: Cough type: unspecified Qualified Code(s): R05.9 - Cough, unspecified Plan: Treatment as under bronchial asthma (4) Pulmonary nodules: Comment: CT scan of the chest in December 2021 showed, bilateral pulmonary nodules, But 1 in the right upper lobe 6 mm in size. Patient is nonsmoker, and has an average risk factor. CT scan of the chest on 02/14/2025 , shows 5 mm nodule in right middle lobe and 5 mm nodule in the left lower lobe. These are benign and nonspecific. Code(s): R91.8 - Other nonspecific abnormal finding of lung field Category: Medical Plan: Explained to the patient and advised not to worry about this. I do not think we need to do any further follow-up CT scans. Medications: New salmeterol (Serevent Diskus) 1 inh inhalation BID 60 ea 5RF 30 days Coding Level of Care Code Est Pt Level 3 (16775) Diagnoses Restrictive lung disease J98.4 Asthma J45.909 Cough, unspecified type R05.9 Cough type: unspecified Pulmonary nodules R91.8
== END 2025-05-08 16:04 | disposition home or self-care (01) ==
LOC: HO.HPS 15:42
PROVIDERS: PCP Internal Medicine; Visit Provider Internal Medicine
DX: J98.4 Other disorders of lung (principal); J45.909 Unspecified asthma, uncomplicated; R05.9 Cough, unspecified; R91.8 Other nonspecific abnormal finding of lung field
CPT/HCPCS: 99213

== ENCOUNTER → 2025-05-08 15:41 | Outpatient (BNVA) | payer MEDICARE, MEDICAID, SELFPAY | PROVIDERS: PCP Internal Medicine; Visit Provider Internal Medicine | DX: J98.4 Other disorders of lung (principal); J45.909 Unspecified asthma, uncomplicated; R05.9 Cough, unspecified; R91.8 Other nonspecific abnormal finding of lung field | CPT/HCPCS: 99212 ==

== ENCOUNTER 2025-05-10 10:01 | Day surgery (SDC) | payer MEDICARE, MEDICAID, SELFPAY ==
[2025-05-08 10:50] VITALS: BMI 39.5
--- NOTE | 2025-05-09 10:04 | HO.ANESPROP2 ---
HPI - Anesthesia Eval Consult details Narrative: 65yo F for Upper Endoscopy and Colonoscopy Anesthesia Pre-Procedure Meds Is the patient on any of the following meds?: GLP1/DPP4 PMFSH Active Problems Active Problems: All Active Problems Abdominal pain (Acute) Pneumonia (Acute) Cough (Acute) Type 2 diabetes mellitus with hyperglycemia (Acute) UTI (urinary tract infection) (Acute) Vaginal itching (Acute) Chest tightness (Acute) High risk medication use (Acute) Bronchitis (Acute) URI (upper respiratory infection) (Acute) Cervical radiculopathy at C8 (Acute) Pelvic pressure in female (Acute) Cervical disc herniation (Acute) Cervical disc disorder with radiculopathy of cervicothoracic region (Acute) Thoracic radiculopathy (Acute) Bunion, right foot (Acute) NAFLD (nonalcoholic fatty liver disease) (Acute) Right upper quadrant abdominal pain (Acute) Lacunar infarction (Acute) Morbid obesity with BMI of 40.0-44.9, adult (Acute) GONGORA (nonalcoholic steatohepatitis) (Acute) Thoracic radiculitis (Acute) Physical exam (Acute) Immunization counseling (Acute) Vertebrogenic low back pain (Acute) Thoracic spine pain (Acute) Numbness and tingling (Acute) Muscle spasm of back (Acute) Right flank pain (Acute) Pelvic pain (Acute) Vaginal discharge (Acute) LFT elevation (Acute) Chronic idiopathic constipation (Acute) Lower abdominal pain (Acute) Bacterial vaginosis (Acute) Well woman exam (Acute) Lumbar spondylosis (Acute) Postmenopausal bleeding (Acute) Cough (Acute) Pulmonary nodules (Acute) COVID-19 (Acute) Normal physical exam, routine (Acute) Spondylosis of lumbar region without myelopathy or radiculopathy (Acute) Lumbar radiculopathy (Acute) Right-sided back pain (Acute) Asthma exacerbation (Acute) Hospital discharge follow-up (Acute) Renal calculi (Acute) Costovertebral angle tenderness (Acute) Burning with urination (Acute) Disc degeneration, lumbar (Acute) Spondylosis of cervical spine (Acute) Spondylosis of lumbar spine (Acute) Pleuritic pain (Acute) Restrictive lung disease (Acute) Asthma (Acute) Dyslipidemia (Acute) Essential hypertension (Acute) Diabetes (Acute) Vaginal modesta (Acute) Seropositive rheumatoid arthritis (Acute) Past Medical History Medical History Urinary tract infection Bronchitis Morbid obesity with BMI of 45.0-49.9, adult Sacroiliitis Rheumatic fever TIA (transient ischemic attack) Right-sided back pain History of COVID-19 Asthma exacerbation Hospital discharge follow-up Sacroiliitis Renal calculi Costovertebral angle tenderness Burning with urination Disc degeneration, lumbar Spondylosis of cervical spine Spondylosis of lumbar spine Pleuritic pain Restrictive lung disease Morbid obesity Asthma Dyslipidemia Essential hypertension Vaginal modesta Seropositive rheumatoid arthritis Rheumatoid arthritis Diabetes Family History Family History Father Diabetes mellitus Myocardial infarction Hypertension CVD (cardiovascular disease) Mother Diabetes mellitus CVD (cardiovascular disease) Sister No problems noted. Son No problems noted. Son No problems noted. Son No problems noted. Daughter Thyroiditis Daughter No problems noted. Daughter No problems noted. Daughter No problems noted. Daughter No problems noted. Other Asthma exacerbation Family history of problems with anesthesia: No Surgical History Surgical History History of cholecystectomy Hx of colonoscopy (09/01/19) History of surgery on wrist History of Problems with Anesthesia: No Social History Social History Housing: Apartment Alcohol intake: never Patient Tobacco Use Status: Never used Tobacco e-Cigarette/Vaping Use: Never Used Second Hand Smoke Exposure: No service: No Current occupational status: disabled Sexual orientation: Straight/Heterosexual Gender identity: Female Cognitive needs: No Hearing needs: No Vision needs: No Meds Allergies Allergy/AdvReac Type Severity Reaction Status Date / Time cyclobenzaprine (From Allergy Intermediate Dizziness Verified 05/08/25 16:04 Flexeril) orphenadrine (From Norflex) Allergy Intermediate Dizziness Verified 05/08/25 16:04 sarilumab (From Kevzara) Allergy Intermediate Rash Verified 05/08/25 16:04 Home Medications ?Medication ?Instructions ?Recorded ?Confirmed ?Last Taken ?Type blood pressure test kit-large #1 ea 06/02/24 05/08/25 Unknown History Exam Height,Weight and Vital Signs: Height 5 ft 1 in Weight 94.801 kg Pertinent Lab Results Pertinent Lab Results: Laboratory Tests 06/25/25 14:05 WBC 9.3 Hgb 14.6 Hct 40.8 Plt Count 182 Sodium 144 Potassium 3.6 Chloride 109 H Carbon Dioxide 25 BUN 11 Creatinine 0.72 Narrative Narrative: EKG 03/2025 Vent. Rate : 98 BPM Atrial Rate : 98 BPM P-R Int : 198 ms QRS Dur : 90 ms QT Int : 360 ms P-R-T Axes : 35 2 39 degrees QTcB Int : 459 ms Normal sinus rhythm Normal ECG When compared with ECG of 13-Mar-2025 20:19, Vent. rate has increased by 38 bpm QT has lengthened Assessment and Plan Assessment Anesthesia Assessment: Chart Reviewed Final Anesthetic Review Family History of Problems with Anesthesia: No History of Problems with Anesthesia: No
[2025-05-10 10:21] VITALS: BP 167/77; PULSE 78; RESP 14; TEMP 36.3; O2SAT 96
[2025-05-10] MEDS: Lactated Ringers 1,000 ML 100 ML IVCONT (10:30)
[2025-05-10 10:35] LABS: Glucose, Whole Blood 171 mg/dL (60-115)
--- NOTE | 2025-05-10 10:45 | MHC.SHP ---
Pre-Procedural Eval Section A - 24 Hr Update-Section A only Date of Service: 05/10/25 Section B - Complete if H&P > 30 days Chief Complaint: Change in bowel habit,Epigastric pain Details of Present Illness: Urinary tract infection Bronchitis Morbid obesity with BMI of 45.0-49.9, adult Sacroiliitis Rheumatic fever TIA (transient ischemic attack) Right-sided back pain History of COVID-19 Asthma exacerbation Hospital discharge follow-up Sacroiliitis Renal calculi Costovertebral angle tenderness Burning with urination Disc degeneration, lumbar Spondylosis of cervical spine Spondylosis of lumbar spine Pleuritic pain Restrictive lung disease Morbid obesity Asthma Dyslipidemia Essential hypertension Vaginal modesta Seropositive rheumatoid arthritis Rheumatoid arthritis Diabetes Surgical History History of cholecystectomy Hx of colonoscopy (09/01/19) History of surgery on wrist Allergies: Allergies Allergy/AdvReac Type Severity Reaction Status Date / Time cyclobenzaprine (From Allergy Intermediate Dizziness Verified 05/08/25 16:04 Flexeril) orphenadrine (From Norflex) Allergy Intermediate Dizziness Verified 05/08/25 16:04 sarilumab (From Kevzara) Allergy Intermediate Rash Verified 05/08/25 16:04 Review of Systems Review of Systems Comment: Ten point ROS negative Exam Exam Comment: Gen appear: No acute distress HEENT: no icterus Chest: No overt resp distress Abd: soft, nontender, nondistended Psych: Stable affect, answering questions appropriately Neuro: A/Ox3 noted to move all extremities spontaneously Ext: no peripheral edema Plan Diagnosis/Plan: Unchanged I have reviewed the history and physical and performed a pertinent physical examination on my patient. No changes have occurred unless specified. Time Spent With Patient Time: Total time managing care of this patient today ____ minutes.
--- NOTE | 2025-05-10 11:11 | HO.ANESPROP2 ---
[facility] Active Problems Active Problems: All Active Problems (Updated 05/10/25 @ 10:57 by Sushila Loomis MD) Blood in stool (Acute) Change in bowel habit (Acute) Abdominal pain (Acute) Pneumonia (Acute) Cough (Acute) Type 2 diabetes mellitus with hyperglycemia (Acute) UTI (urinary tract infection) (Acute) Vaginal itching (Acute) Chest tightness (Acute) High risk medication use (Acute) Bronchitis (Acute) URI (upper respiratory infection) (Acute) Cervical radiculopathy at C8 (Acute) Pelvic pressure in female (Acute) Cervical disc herniation (Acute) Cervical disc disorder with radiculopathy of cervicothoracic region (Acute) Thoracic radiculopathy (Acute) Bunion, right foot (Acute) NAFLD (nonalcoholic fatty liver disease) (Acute) Right upper quadrant abdominal pain (Acute) Lacunar infarction (Acute) Morbid obesity with BMI of 40.0-44.9, adult (Acute) G[place]A (nonalcoholic steatohepatitis) (Acute) Thoracic radiculitis (Acute) Physical exam (Acute) Immunization counseling (Acute) Vertebrogenic low back pain (Acute) Thoracic spine pain (Acute) Numbness and tingling (Acute) Muscle spasm of back (Acute) Right flank pain (Acute) Pelvic pain (Acute) Vaginal discharge (Acute) LFT elevation (Acute) Chronic idiopathic constipation (Acute) Lower abdominal pain (Acute) Bacterial vaginosis (Acute) Well woman exam (Acute) Lumbar spondylosis (Acute) Postmenopausal bleeding (Acute) Cough (Acute) Pulmonary nodules (Acute) COVID-19 (Acute) Normal physical exam, routine (Acute) Spondylosis of lumbar region without myelopathy or radiculopathy (Acute) Lumbar radiculopathy (Acute) Right-sided back pain (Acute) Asthma exacerbation (Acute) Hospital discharge follow-up (Acute) Renal calculi (Acute) Costovertebral angle tenderness (Acute) Burning with urination (Acute) Disc degeneration, lumbar (Acute) Spondylosis of cervical spine (Acute) Spondylosis of lumbar spine (Acute) Pleuritic pain (Acute) Restrictive lung disease (Acute) Asthma (Acute) Dyslipidemia (Acute) Essential hypertension (Acute) Diabetes (Acute) Vaginal modesta (Acute) Seropositive rheumatoid arthritis (Acute) Past Medical History Medical History Urinary tract infection Bronchitis Morbid obesity with BMI of 45.0-49.9, adult Sacroiliitis Rheumatic fever TIA (transient ischemic attack) Right-sided back pain History of COVID-19 Asthma exacerbation Hospital discharge follow-up Sacroiliitis Renal calculi Costovertebral angle tenderness Burning with urination Disc degeneration, lumbar Spondylosis of cervical spine Spondylosis of lumbar spine Pleuritic pain Restrictive lung disease Morbid obesity Asthma Dyslipidemia Essential hypertension Vaginal modesta Seropositive rheumatoid arthritis Rheumatoid arthritis Diabetes Functional capacity: independent ambulation Family History Family History Father Diabetes mellitus Myocardial infarction Hypertension CVD (cardiovascular disease) Mother Diabetes mellitus CVD (cardiovascular disease) Sister No problems noted. Son No problems noted. Son No problems noted. Son No problems noted. Daughter Thyroiditis Daughter No problems noted. Daughter No problems noted. Daughter No problems noted. Daughter No problems noted. Other Asthma exacerbation Family history of problems with anesthesia: No Surgical History Surgical History History of cholecystectomy Hx of colonoscopy (09/01/19) History of surgery on wrist History of Problems with Anesthesia: No Social History Social History Housing: Apartment Alcohol intake: never Patient Tobacco Use Status: Never used Tobacco e-Cigarette/Vaping Use: Never Used Second Hand Smoke Exposure: No Use of substances other than those prescribed or required for medical reasons: No Have you been hit, kicked, punched, or otherwise hurt by someone within the past year? If so, by whom?: No Are you DNR?: No Advance Directives: No Advance Directives Information Provided: Yes Advance Directives on File: No Patient : No : No Poor oral hygiene: No service: No Current occupational status: disabled Sexual orientation: Straight/Heterosexual Gender identity: Female Cognitive needs: No Hearing needs: No Vision needs: No Meds Allergies Allergy/AdvReac Type Severity Reaction Status Date / Time cyclobenzaprine (From Allergy Intermediate Dizziness Verified 05/08/25 16:04 Flexeril) orphenadrine (From Norflex) Allergy Intermediate Dizziness Verified 05/08/25 16:04 sarilumab (From Kevzara) Allergy Intermediate Rash Verified 05/08/25 16:04 Active Medications: Current Medications Albuterol Sulfate (Albuterol Sulfate (0.083%) 2.5 Mg/3 Ml Vial.Neb) 2.5 mg INHALE ONCE PRN PRN Reason: Shortness of Breath/Wheezing Lactated Ringer's (Lr) 1,000 mls @ 100 mls/hr IVCONT .Q10H JARRET Last Admin: 05/10/25 10:30 Dose: 100 mls/hr Home Medications ?Medication ?Instructions ?Recorded ?Confirmed ?Last Taken ?Type blood pressure test kit-large #1 ea 06/02/24 05/08/25 Unknown History Exam Height,Weight and Vital Signs: Height 5 ft 1 in Weight 94.801 kg Last Vital Signs Temp 97.3 F 05/10/25 10:21 Pulse 78 05/10/25 10:21 Resp 14 05/10/25 10:21 BP 167/77 H 05/10/25 10:21 Pulse Ox 96 05/10/25 10:21 O2 Del Method Room Air 05/10/25 10:21 Pertinent Lab Results Pertinent Lab Results: Laboratory Tests 05/10/25 10:25 POC Glucose 171 H Airway Mallampati Class: III TM Dist: >3cm Neck ROM: Full Heart: RRR Lungs: CTA Assessment and Plan Assessment Anesthesia Assessment: Anesthesia Plan Discussed Final Anesthetic Review Family History of Problems with Anesthesia: No History of Problems with Anesthesia: No NPO: Yes ASA Class: III Final Preanesthetic Review: Meds/Allgs Chart Reviewed, Consent Obtained/Reviewed and Anes Risks/Benef Reviewed Patient Risk: Intermediate Procedure Risk: Low Anesthetic Plan Anesthetic Plan: MAC: Disposition: Standard PACU
--- NOTE | 2025-05-10 12:07 | P.OPN-COLO_ITS ---
Colonoscopy Operative Note Operative Note Date of Service: 05/10/25 Narrative: Procedure: Upper endoscopy and colonoscopy Indication: Epigastric pain, change in bowel habits, rectal bleeding Endoscopist: Sushila Loomis MD Anesthesia Provider: Dr Jie Renee Anesthesia type: MAC Instrument: [id number] and [id number] EGD Procedure:?? The procedure, indications, preparation and potential complications were reviewed with the patient with the help of splunk architect, who indicated understanding and gave written informed consent to proceed. The endoscope was introduced through the mouth, and advanced to the 3rd part of the duodenum. The mucosa was carefully examined on slow withdrawal of the endoscope. The patient tolerated the procedure well. There were no immediate complications.? EGD Findings:? * Esophagus:? Normal esophageal mucosa was noted. The Z-line was at 36 cm. * Stomach:? Erythema and erosions in the gastric antrum. Retroflexion was performed in the cardia. Random cold forceps biopsies were taken from the stomach. * Duodenum:? Erythema, edema and scant heme in duodenal bulb. Remaining mucosa was normal to the extent examined. Cold forceps biopsies were taken from the duodenal bulb and 2nd portion of the duodenum to rule out celiac sprue. Colonoscopy Procedure:? The patient was then turned for the colonoscopy. A digital rectal exam was performed which was abnormal for hemorrhoids.? A distal attachment cap was affixed to the tip of the scope and the colonoscope was then inserted through the anus and advanced through the colon and advanced to the cecum at 80 cm and terminal ileum.? Appendiceal orifice and ileocecal valve were identified. Mucosa was carefully examined under high definition white light as the instrument was slowly withdrawn in a retrograde panoramic fashion. Retroflexion was performed in rectum. The procedure was not difficult. The quality of the prep was BBPS: 2+2+2 = adequate Withdrawal time 7 minutes Limitations: No limitations Findings: Mucosa: Normal colon and terminal ileum mucosa. Protruding lesions: * Medium internal hemorrhoids without stigmata of recent bleeding. Impression: 1. Normal esophagus 2. Gastritis 3. Duodenitis 4. Normal colon and terminal ileum mucosa 5. Internal and external hemorrhoids Recommendations:?? * Rectal bleeding was likely 2/2 hemorrhoids in the context of constipation and straining. * Follow-up path results * Avoid NSAIDs * Continue PPI therapy * Repeat colonoscopy for CRC screening in 10 years.
[2025-05-10 12:14] VITALS: BP 127/83; PULSE 69; RESP 16; TEMP 36.6; O2SAT 98
[2025-05-10 12:29] VITALS: BP 145/82; PULSE 68; RESP 16; O2SAT 99
--- NOTE | 2025-05-10 12:31 | HO.POSTANES ---
Post Anesthesia Evaluation Post Anesthesia Evaluation Date of Service: 05/10/25 Vital Signs: Vital Signs Temp Pulse Resp BP Pulse Ox O2 Del Method 05/10/25 12:14 97.8 F 69 16 127/83 98 Room Air 05/10/25 10:21 97.3 F 78 14 167/77 H 96 Room Air Anesthesia: Monitored Mental Status: Awake Pain Control: Satisfactory Nausea/Vomiting: None Hydration: Adequate Anesthesia-Related Issues: No Anes. Related Issues
[2025-05-10 12:44] VITALS: BP 122/82; PULSE 67; RESP 18; TEMP 36.4; O2SAT 94
== END 2025-05-10 13:15 | disposition home or self-care (01) ==
PROVIDERS: PCP Internal Medicine; Visit Provider Internal Medicine
PROC: (CPT 43239; principal; 2025-05-10 12:10)
DX: R19.4 Change in bowel habit (principal); K62.5 Hemorrhage of anus and rectum; K64.8 Other hemorrhoids; K64.4 Residual hemorrhoidal skin tags; R10.13 Epigastric pain; I10 Essential (primary) hypertension; J45.909 Unspecified asthma, uncomplicated; K29.50 Unspecified chronic gastritis without bleeding; K29.80 Duodenitis without bleeding; E11.9 Type 2 diabetes mellitus without complications; E78.5 Hyperlipidemia, unspecified; J98.4 Other disorders of lung; M05.9 Rheumatoid arthritis with rheumatoid factor, unspecified; M51.369 Other intervertebral disc degeneration, lumbar region without mention of lumbar back pain or lower extremity pain; M47.816 Spondylosis without myelopathy or radiculopathy, lumbar region; E66.01 Morbid (severe) obesity due to excess calories; Z68.42 Body mass index [BMI] 45.0-49.9, adult; Z86.73 Personal history of transient ischemic attack (TIA), and cerebral infarction without residual deficits; Z79.899 Other long term (current) drug therapy; Z90.49 Acquired absence of other specified parts of digestive tract; Z98.890 Other specified postprocedural states; Z88.8 Allergy status to other drugs, medicaments and biological substances
CPT/HCPCS: 43239; G0121; 82947; 88305; 88313; 88342; J2003; J2704

== ENCOUNTER → 2025-05-10 10:01 | Outpatient (BNV) | payer MEDICARE, MEDICAID, SELFPAY | PROVIDERS: PCP Internal Medicine; Visit Provider Internal Medicine | DX: K29.90 Gastroduodenitis, unspecified, without bleeding (principal); R19.4 Change in bowel habit; K64.8 Other hemorrhoids | CPT/HCPCS: 43239; 45378 ==

== ENCOUNTER 2025-05-30 14:40 | Outpatient (REF) | payer MEDICARE, MEDICAID, SELFPAY ==
--- OUTSIDE RECORDS SUMMARY | 2025-05-30 15:36 | XMS_ITS | Patient Health Record ---
Author Organization [facility] Address 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 Name Role Phone ASAD LERNER Primary Care Provide r [phone] SE, CSI BQTAS SE Unavailable [phone] JOLYNN SMALL Unavailable [phone] [place] Unavailable Allergies Allergen (clinical drug ingredient) Drug/Non Drug Allergy documented on EMR Reaction Allergy Type Onset Date Status Flexeril dizziness Drug Allergy Active Norflex dizziness Drug Allergy Active Results Component Value Reference Range Flag Notes CHEST-AP ONLY *1 VIEW Reviewed date:01/01/2025 08:48:19 AM Interpretation: Performing Lab: Notes/Report: See Below For Report Chest PA: [id number].Report Text See Below For Report CBC + DIFF Reviewed date:12/28/2024 02:51:15 PM Interpretation: Performing Lab: Notes/Report: LICENSE.: [id number] CLIA: [id number] DIRECTOR: JAIME SARAVIA Num: [id number] Exp: 01/08/2025 [place]ANGELISTA [place] [address] Paid 5 Cents [address] Pat. No.: [id number] [facility] [place] Col. Tabitha. Med. P.R. ORDER [id number] PERFORMED AT: CBC WHITE BLOOD COUNT 7.0 4.8-10.8 X10 RED [...] 3-10 % EO % 7.2 1-5 % H BA % 0.3 0-1 % NE # 4.2 2-7.5 x10 LY # 1.9 1.5-4 x10 MO # 0.4 0.2-0.8 x10 EO # 0.5 0-0.4 x10 H BA # 0.0 0-0.1 x10 BY: DxH 560 RBC MORPHOLOGY 1 MAYANK INFLUENZA AG A & B Reviewed date:12/28/2024 02:51:15 PM Interpretation: Performing Lab: Notes/Report: A negative test result may occur if the level of antigen in a sample is Col. Tabitha. Med. P.R. ORDER [id number] PERFORMED AT: below the detection limit of the test. Pat. No.: [id number] [facility] [place] Test results must be evaluated in conjunction with other clinical data. Paid 5 Cents [address] Negative test results do not rule out other non-influenza viral infections Exp: 01/08/2025 [place] [address] Positive test results do not identify specific influenza A virus subtypes Num: [id number] Individuals who recieved nasally influenza A vaccine may have positive DIRECTOR: JAIME SARAVIA test results for up to three days after vaccination. LICENSE.: [id number] CLIA: [id number] INFLUENZA A ANTIGEN NEGATIVE NEGATIVE INFLUENZA B [...] onset beyond seven days, LICENSE.: [id number] CLIA: [id number] DIRECTOR: JAIME SARAVIA Num: [id number] bacterial infections. The presence of mupirocin may interfere with the COVID-19 Ag test and may cause false negative results. -- COVID-19 Ag Test has not been FDA cleared or approved; but has been authorized by FDA under EUA for use by authorized laboratories. For in vitros Diagnostic Use Only. 1 KOV Exp: 01/08/2025 EVANGELISTA [place] [address] Paid 5 Cents [address] Pat. No.: [id number] [facility] [place] Col. Tabitha. Med. P.R. ORDER [id number] PERFORMED AT: COVID-19 Ag NEGATIVE NEGATIVE METHOD: STATUS COVID-19/FLU A&B CHEST-2 VIEWS Reviewed date:09/29/2024 02:40:29 PM Interpretation: Performing Lab: Notes/Report: See Below For Report [id number].Report Text See Below For Report COVID-19 ANTIGEN Reviewed date:09/29/2024 02:13:34 PM Interpretation: Performing Lab: Notes/Report: Col. Tabitha. Med. P.R. ORDER [id number] PERFORMED AT: -- Positive results indicate the presence of COVID-19 antigen, but clinical Pat. No.: [id number] [facility] correlation with patient history and other diagnostic information is Paid 5 Cents [address] necessary to determine infection status. Positive results do not rule out Exp: 12/08/2024 EVANGELISTA OCAMPO94 bacterial infection or co-infection with other viruses and do not Num: [id number] differentiate between SARS-CoV and SARS-CoV-2. DIRECTOR: JAIME SARAVIA -- Negative results, from patients with symptom onset beyond seven days, LICENSE.: [id number] CLIA: [id number] should be treated as presumptive and confirmation [...] clinical data. Col. Tabitha. Med. P.R. ORDER [id number] PERFORMED AT: Negative test results do not rule out other non-influenza viral infections Pat. No.: [id number] [facility] [place] Positive test results do not identify specific influenza A virus subtypes Paid 5 Didis GALILEA [address] Individuals who recieved nasally influenza A vaccine may have positive Exp: 12/08/2024 [place] [address] test results for up to three days after vaccination. Num: [id number] DIRECTOR: JAIME SARAVIA LICENSE.: [id number] CLIA: [id number] INFLUENZA A ANTIGEN POSITIVE NEGATIVE A INFLUENZA B ANTIGEN NEGATIVE NEGATIVE METHOD: STATUS COVID-19/FLU A&B Reason For Referral No Information Medications Medication SIG (Take, Route, Frequency, Duration) Notes Start Date End Date Status Oseltamivir Phosphate 75 MG Capsule 1 capsule Orally Twice a day; Duration: 5 days 09/29/2024 Unknown Gabapentin 300 MG Capsule 1 capsule Oral ly TWO times a day; Duration: 30 day(s) 02/09/2019 Unknown Loratadine 10 MG Tablet 1 tablet Orally Once a day 09/29/2024 Unknown Tussin DM 100-10 MG/5ML Syrup 10 mL as needed Orally Every 6 hours 09/29/2024 Unknown Ptbjnany-Ctvugfkry-LS 1 % Solution 4 drops into affected ear RIGHT EAR Otic Three times a day; Duration: 7 days 01/12/2019 Unknown Naproxen 500 MG Tablet 1 tablet if pain Orally every 12 hrs 09/29/2024 Unknown metFORMIN HCl 500 MG Tablet 1 tablet with meals Orally Once a day; Duration: 30 day(s) 07/21/2018 Unknown Lisinopril-hydroCHLOROthia zide 20-25 MG Tablet 1 tablet Orally Once a day; Duration: 30 day(s) 07/21/2018 Unknown Nabumetone 750 MG Tablet 1 tablet Orally Twice a day; Duration: as needed 07/21/2018 Unknown Montelukast Sodium 10 MG Tablet 1 tablet in the evening Orally Once a day; Duration: 30 day(s) 07/21/2018 Unknown Ranitidine HCl 300 MG Tablet 1 tablet at bedtime Orally Once a day; Duration: 30 day(s) 07/21/2018 Unknown predniSONE 5 MG Tablet 1 tablet Orally O nce a day; Duration: 30 day(s) Unknown Immunizations Vaccine Route Administration [...] stop date) Never Smoker NA - NA Social History COVID-19 Social Info Question Answer Notes [place] COVID-19 Fecha 12/28/2024 Presenta algun sintoma: Tos Se simmons realizado recientement e la prueba rapida o molecular para el COVID 19 No Conoce a alguien que haya sido positivo al COVID -19 No Simmons participado de eventos pu blicos, sociales o familiares en los ultimos 14 alicea No Simmons viajado fuera de DC o simmons estado en contacto con alguien que haya estado fuera de DC en los pasados 14 alicea No Se simmons vacunado contra el COVID-19 Refuerzo SIM History Social Info Question Answer Notes SIM Social History Funtional Status As Follows Se bana sin asistencia Yes Se viste sin asistencia Yes Camina sin asistencia Yes Padece de incontinencia No Paciente orientado en Yes Se siente edmundo en kelley se realaciona con las personas a diario Si Drug use No Sexual Orientation Straight (not lesbian or blackburn) Gender Identity Female Household As follows Lali de dependientes 1 Cuantos viven en la casa? 1 ..Ultimo nivel escolar 12 ..Vivienda con radha ..Sospecha de maltrato No ..Viaje reciente fuera de DC <2 meses No Transfusion/inmunisaciones Siguiente ..Transfusiones de maura No ..Reaccion a transfusion No ..Inmunizacion Si ..Inmunizacion Tetano Si Nececidades para comunicacion o acomodo Ninguna Paciente o familiar comprend e requeridos e instrucciones de [place] doctor? Si Paciente expresa chrissie pa ra el cumplimiento de [place] tratamiento No Sexual History: Social Info Question Answer Notes Sexual History Had sex in the past 12 months (vaginal, oral, or anal)? No Have you ever had a Sexually transmitted disease ? No Last menstrual period postmenopausal Drugs/Alcohol: Social Info Question Answer Notes Alcohol Screen (Audit-C) Did you have a drink containing alcohol in the past year? No Points 0 Interpretation Negative Drugs Have you used drugs other than those for medical reasons in the past 12 months? No Caffeine Intake: 2-3 cups per day Drug/Alcohol: Social Info Question Answer Notes AUDIT-C (Standard) Did you have a drink containing alcohol in the past year? No Points 0 Interpretation Negative Myra de Emergencia Social Info Question Answer Notes Historial Social Vivienda Con radha Sospecha de maltrato, violencia, u abuso sexual? No Viaje No viajo fuera de P.R. Inmunizacion al norah Si Inmunizacion contra el tetano Si Transfuciones componentes sanguineos No Declina ser transfundido Si Modo de llegada Ambulando Acompanado pro Hijo Tobacco Use: Social Info Question Answer Notes Tobacco Control (Standard) Tobacco use: Nonsmoker Tobacco Use/Smoking Are you a nonsmoker Additional Details Category Social Info Options Details Drugs/Alcohol: Do you smoke marijuana? De nies Do you drink alcohol? No Section Notes: TAMARA NOBLES RN. BSN Lic. [id number], SHARDA M 09/29/2024 11:15:44 AM > Problems Problem Type SNOMED Code ICD Code Onset Dates Problem Status W/U Status Risk Notes Problem Essential hypertension (75747231) Essential (primary) hypertension (I10) Active confirmed Essential (primary) hypertension Problem Chronic pain (35430733) Other chronic pain (G89.29) Active confirmed Problem Postmenopausal bleeding (88859499) Postmenopausal bleeding (N95.0) Active confirmed Problem Hyperglycemia due to type 2 diabetes mellitus (475111818108243) Controlled type 2 diabetes mellitus with hyperglycemia, without long-term current use of insulin (E11.65) Active confirmed Problem Acute severe exacerbation of mild persistent asthma (disorder) (267706737) Mild persistent asthma with acute exacerbation (J45.31) Active confirmed Problem Rheumatoid arthritis (60739280) Rheumatoid arthritis involving multiple sites with positive rheumatoid factor (M05.79) Active confirmed Problem Body mass index 30.00 to 34.99 (171835155284901) Body mass index (BMI) of 33.0 to 33.9 in adult (Z68.33) Active confirmed Problem Type II diabetes mellitus without complication (404401998) Controlled diabetes mellitus (E11.9) Active confirmed Problem Rheumatoid arthritis (82182485) Rheumatoid arthritis involving multiple sites, unspecified rheumatoid factor presence (M06.9) Active confirmed Problem Diabetes mellitus type 2 (45428165) Diabetes mellitus type 2, uncontrolled (E11.65) Active confirmed Problem Morbid obesity (712339537) Morbid obesity (E66.01) Active confirmed Problem Mild intermittent asthma (610474924) Asthma, intermittent, uncomplicated (J45.20) Active confirmed Problem Body mass index 40+ - morbidly obese (402654333) BMI 40.0-44.9, adult (Z68.41) Active confirmed Problem Herpes simplex labialis (0600200) Herpes simplex labialis (B00.1) Active confirmed Problem Exacerbation of asthma (268167091) Asthma exacerbation (J45.901) Active confirmed Problem Endometrial hyperplasia (465616300) Endometrial hyperplasia (N85.00) Active confirmed Problem Allergic rhinitis (32345393) Acute allergic rhinitis (J30.9) Active confirmed Problem Gastroesophageal reflux disease (disorder) (374418700) Chronic GERD (K21.9) Active confirmed Vital Signs Heart Rate 81 /min 12/28/2024 CÉSAR BARBA. STONE BANKER Lic. [id number], GENE 12/28/2024 02:19:43 PM >Paciente no refiere dolor al momento de renato. Temperature 37.0 C 12/28/2024 CÉSAR BARBA. STONE BANKER Lic. [id number], GENE 12/28/2024 02:19:43 PM >Paciente no refiere dolor al momento de renato. Respiratory Rate 19 /min 12/28/2024 CÉSAR BARBA . STONE BANKER Lic. [id number], GENE 12/28/2024 02:19:43 PM >Paciente no refiere dolor al momento de renato. Height-cm 154.94 cm 12/28/2024 CÉSAR BARBA. STONE BANKER Lic. [id number], GENE 12/28/2024 02:19:43 PM >Paciente no refiere dolor al momento de renato. Blood pressure diastolic 73 mm Hg 12/28/2024 BHARTI BARBA. STONE BANKER Lic. [id number], GENE 12/28/2024 02:19:43 PM >Paciente no refiere dolor al momento de renato. Oximetry 98 % 12/28/2024 CÉSAR BARBA. STONE BANKER Lic. [id number], GENE 12/28/2024 02:19:43 PM >Paciente no refiere dolor al momento de renato. Weight-kg 95.25 kg 12/28/2024 CÉSAR BARBA. STONE BANKER Lic. [id number], GENE 12/28/2024 02:19:43 PM >Paciente no refiere dolor al momento de renato. Height 61 in 12/28/2024 CÉSAR BARBA. ST[employer] BANKER Lic. [id number], GENE 12/28/2024 02:19:43 PM >Paciente no refiere dolor al momento de renato. Blood pressure systolic 155 mm Hg 12/28/2024 EDWARD BARBA. ST[employer] BANKER Lic. [id number], GENE 12/28/2024 02:19:43 PM >Paciente no refiere dolor al momento de renato. Weight 210 lbs 12/28/2024 CÉSAR BARBA. ST[employer] BANKER Lic. [id number], GENE 12/28/2024 02:19:43 PM >Paciente no refiere dolor al momento de renato. BMI 39.67 kg/m2 12/28/2024 CÉSAR BARBA. STONE BANKER Lic. [id number], GENE 12/28/2024 02:19:43 PM >Paciente no refiere dolor al momento de renato. Encounters Encounter Location Date Provider Diagnosis [facility] [address] [place], [place] [id number] 09/29/2024 JOLYNN MEZA FRANCO URTI (acute upper respiratory infection) J06.9 ; Influenza A J10.1 and Acute cough R05.1 [facility] [address] [place], [place] [id number] 12/28/2024 PACO HAWLEY Cough R05.9 ; Low back pain M54.50 and Asthma exacerbation J45.901 Assessments Encounter Date Diagnosis (ICD Code) Assessment Notes Treatment Notes Treatment Clinical Notes Section Notes 12/28/2024 Cough (ICD-10 - R05.9) 1) TUSSIN 10 ML PO 2) [id number] MG IV 3) SOLUMEDROL 125 M GIV 4) ALBUTEROL 0.083 + ATROVENT 0.02 BY PN ONCE [place] 12/28/2024 12:50:51 PM > CÉSAR BARBA. STONE BANKER Lic. [id number], GENE 12/28/2024 12:57:44 PM > Orden tomada. CÉSAR BARBA. STONE BANKER Lic. [id number], GENE 12/28/2024 12:57:44 PM > CÉSAR BARBA. STONE BANKER Lic. [id number], GENE 12/28/2024 01:10:58 PM > Se recibe [...] 0.083% + Atrovent 0.02 10/11. CÉSAR BARBA. STONE BANKER Lic. [id number], GENE 12/28/2024 01:10:58 PM > CÉSAR BARBA. STONE BANKER Lic. [id number], GENE 12/28/2024 02:10:54 PM > Paciente es [...] 0 al momento del renato. CÉSAR BARBA. STONE BANKER Lic. [id number], GENE 12/28/2024 02:10:55 PM > 12/28/2024 Low back pain (ICD-10 - M54.50) 09/29/2024 URTI (acute upper respiratory infection) (ICD-10 - J06.9) Tx: 1) Toradol 60 mg IM x1 2) Benadryl 25 mg PO x1 3) Guaifenesin DM 10 ml PO x1 MEZA FRANCO, JOLYNN 09/29/2024 01:24:37 PM > 09/29/2024 Influenza A (ICD-10 - J10.1) 09/29/2024 Acute cough (ICD-10 - R05.1) 12/28/2024 Asthma exacerbation (ICD-10 - J45.901) 09/29/2024 Other DYLAN ALVAREZ RN, BSN LIC. [id number], NATHANIEL M 09/29/2024 01:25:28 PM > Se [...] refiere entender. DYLAN ALVAREZ RN, BSN LIC. [id number], [facility] 09/29/2024 01:25:29 PM > MIKIE SAM RN BSN, Lic. [id number], [place] 09/29/2024 02:00:01 PM > Se recibe llamada del laboratorio de la [facility] Santi Barillas reportando influenza A positivo; se le notifica al Dr. Meza. MIKIE SAM [employer]ER, Lic. [id number], [place] 09/29/2024 02:00:02 PM > DYLAN ALVAREZ RN, BSN LIC. [id number], [facility] 09/29/2024 02:44:16 PM > Paciente es [...] del renato. DYLAN ALVAREZ RN, BSN LIC. [id number], [facility] 09/29/2024 02:44:27 PM > Plan Of [...] Insured Coverage Start Date Coverage End Date [address] [id number] [id number] Diaz Self - patient is the insured 4 5 Medical (General) History Medical History History ICD Code ARTRITIS REUMATOIDEA DIABETICA ASMA RENATO PRESION Surgical History Surgery Date(Month/Year) cholecystectomy
== END 2025-05-30 14:41 | disposition home or self-care (01) ==
LOC: HO.MAMMO 14:40
PROVIDERS: PCP Internal Medicine; Visit Provider Internal Medicine
DX: Z12.31 Encounter for screening mammogram for malignant neoplasm of breast (principal)
CPT/HCPCS: 77063; 77067

== ENCOUNTER → 2025-05-30 14:45 | Outpatient (BNV) | payer MEDICARE, MEDICAID, SELFPAY | PROVIDERS: PCP Internal Medicine; Visit Provider Internal Medicine | DX: Z12.31 Encounter for screening mammogram for malignant neoplasm of breast (principal) | CPT/HCPCS: 77063; 77067 ==

== ENCOUNTER 2025-06-14 10:11 | Emergency (ER) | payer MEDICARE, MEDICAID, SELFPAY ==
--- NOTE | ~2025-06-14 | CT_ITS ---
EXAMINATION: CT HEAD WITHOUT CONTRAST CLINICAL INFORMATION: Severe headache, hypertension COMPARISON: March 28, 2024 TECHNIQUE: Contiguous axial imaging was performed from the skull base to vertex without intravenous administration of contrast. This CT examination was performed using dose optimization techniques as appropriate, variously including the following: *Automated exposure control *Adjustment of mA and/or kV according to patient size (this includes techniques or standardized protocols for targeted exams where dose is matched to indication/reason for exam; i.e. extremities or head) *Use of iterative reconstruction technique DLP: 758 mGY*cm FINDINGS: There is no acute ischemic change. Again seen is patchy periventricular white matter hypodensities similar to the prior. There is no intracranial hemorrhage. There is no mass-effect or midline shift. Basal cisterns and ventricles are within normal limits for age/cerebral volume. Orbits are symmetrical and unremarkable. Paranasal sinuses and mastoid air cells are pneumatized. There are no bony abnormalities. CT/CT head/brain wo IV con IMPRESSION: No acute intracranial abnormality. Stable chronic white matter changes probably related to small vessel disease. Electronically signed by: Aman Sutton MD 06/14/2025 11:32 AM EDT
[2025-06-14 10:43] VITALS: BP 108/69; PULSE 83; RESP 18; TEMP 36.4; O2SAT 95; BMI 35.0
--- NOTE | 2025-06-14 10:45 | ED.GENADULT ---
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 She took a dose yesterday and since then she has had frontal headache and eye pain but no n/v no numbness or weakness, no chest pain/SOB. She reports no fevers or neck pain. No recent trauma or issues with her neck. She isn't sure if it is the medication. She has not had a headache like this before. She has no vision changes complaint: headache Onset (ago): day(s) (1) Location: head and eyes Radiation: neck Severity: moderate Quality: aching Pain Consistency: constant Relieving factors: none Exacerbating factors: none Associated symptoms: denies other symptoms Treatments prior to arrival: none Related Data Home Medications ?Medication ?Instructions ?Recorded ?Confirmed blood pressure test kit-large #1 ea 06/02/24 05/08/25 Previous Rx's ?Medication ?Instructions ?Recorded albuterol sulfate 90 mcg/actuation 2 inh PO Q4H PRN shortness of 08/13/20 aerosol inhaler breath or wheezing #8.5 grams docusate sodium 100 mg capsule 100 mg PO BID #30 caps 12/07/22 (Col-Rite) blood sugar diagnostic (FreeStyle #50 ea 02/10/23 Lite Strips) blood-glucose meter (FreeStyle #1 ea 02/10/23 Lite Meter kit) lancets 28 gauge (FreeStyle #100 ea 02/10/23 Lancets) cock up splint #1 ea 03/03/23 blood pressure monitor #1 ea 02/07/24 nabumetone 750 mg tablet 750 mg PO BID 30 days #60 tabs 03/30/24 rosuvastatin 10 mg tablet 10 mg PO DAILY 90 days #90 tabs 04/20/24 sennosides 8.6 mg tablet (senna) 8.6 mg PO BEDTIME PRN constipation 04/20/24 7 days #7 tabs meclizine 50 mg tablet 50 mg PO DAILY PRN motion sickness 04/23/24 #14 tabs gabapentin 300 mg capsule 300 mg PO TID pain 30 days #90 caps 07/06/24 fluticasone propionate 110 2 puff inhalation BID Asthma/Cough 01/18/25 mcg/actuation HFA aerosol inhaler 30 days #12 grams ipratropium 0.5 mg-albuterol 3 mg 3 ml inhalation Q6H PRN wheezing 02/09/25 (2.5 mg base)/3 mL nebulization #180 mL soln dulaglutide 1.5 mg/0.5 mL 1.5 mg (0.5 mL) subcut QWEEK 4 03/06/25 subcutaneous pen injector weeks #2 mL (Trulicity) acetaminophen 500 mg capsule 1,000 mg (2 x 500 mg) PO Q8H PRN 03/13/25 fever or pain #14 caps tramadol 50 mg tablet 50 mg PO Q8H PRN pain #12 tabs 03/13/25 Orencia ClickJect 125 mg/mL 125 mg subcut QWEEK #4 mL 03/20/25 subcutaneous auto-injector (abatacept) bisacodyl 5 mg tablet,delayed 10 mg (2 x 5 mg) PO .daily 90 days 04/02/25 release #180 tabs polyethylene glycol 3350 17 17 g PO DAILY #238 grams 04/02/25 gram/dose oral powder (Miralax) ondansetron 4 mg disintegrating 4 mg PO Q6H PRN nausea and 04/04/25 tablet vomiting #10 tabs sucralfate 1 gram tablet 1 g PO TID PRN Upper abdominal 04/04/25 pain #60 tabs cholestyramine 4 gram oral powder 4 g PO BID PRN diarrhea 30 days 04/12/25 (Cholestyramine Light) #210 grams losartan 100 mg tablet 100 mg PO DAILY hypertension 30 04/12/25 days #30 tabs pioglitazone 30 mg tablet 30 mg PO DAILY 90 days #90 tabs 04/12/25 omeprazole 20 mg capsule,delayed 20 mg PO DAILY #90 caps 05/04/25 release dicyclomine 20 mg tablet 20 mg PO TID PRN abdominal pain 30 05/07/25 days #90 tabs salmeterol 50 mcg/dose blister 1 inh inhalation BID 30 days #60 ea 05/08/25 powder for inhalation (Serevent Diskus) amlodipine 10 mg tablet 10 mg PO DAILY #90 tabs 06/14/25 losartan 100 mg tablet 100 mg PO DAILY #90 tabs 06/14/25 Allergies Allergy/AdvReac Type Severity Reaction Status Date / Time cyclobenzaprine (From Allergy Intermediate Dizziness Verified 06/14/25 10:47 Flexeril) orphenadrine (From Norflex) Allergy Intermediate Dizziness Verified 06/14/25 10:47 sarilumab (From Kevzara) Allergy Intermediate Rash Verified 06/14/25 10:47 Review of Systems Review of Systems: Constitutional : No Fever, No Chills, No Fatigue ENT/Mouth : No sore throat, No Rhinorrhea Eyes: No Eye Pain, No Swelling, No Redness Cardiovascular : No Chest Pain, No SOB, No Dyspnea on Exertion Respiratory : No Cough, No Sputum Gastrointestinal : No Nausea, No Vomiting, No Diarrhea, No abdominal Pain Genitourinary : No Dysuria, No Urinary Frequency, No Hematuria, Musculoskeletal : No joint pain, No Myalgias, No Joint Swelling Skin : No Skin Lesions, No rash Neuro : No Weakness, No Numbness, No Dizziness, positive Headache All other systems reviewed and are negative PMFSH Past Medical History Attestation statement: The following information was validated with the patient. Source: old records reviewed Medical History Urinary tract infection Bronchitis Morbid obesity with BMI of 45.0-49.9, adult Sacroiliitis Rheumatic fever TIA (transient ischemic attack) Right-sided back pain History of COVID-19 Asthma exacerbation Hospital discharge follow-up Sacroiliitis Renal calculi Costovertebral angle tenderness Burning with urination Disc degeneration, lumbar Spondylosis of cervical spine Spondylosis of lumbar spine Pleuritic pain Restrictive lung disease Morbid obesity Asthma Dyslipidemia Essential hypertension Vaginal modesta Seropositive rheumatoid arthritis Rheumatoid arthritis Diabetes Surgical History History of cholecystectomy Hx of colonoscopy (09/01/19) History of surgery on wrist Family History Family History Father Diabetes mellitus Myocardial infarction Hypertension CVD (cardiovascular disease) Mother Diabetes mellitus CVD (cardiovascular disease) Sister No problems noted. Son No problems noted. Son No problems noted. Son No problems noted. Daughter Thyroiditis Daughter No problems noted. Daughter No problems noted. Daughter No problems noted. Daughter No problems noted. Other Asthma exacerbation Social History Social History Housing: Apartment Alcohol intake: never Patient Tobacco Use Status: Never used Tobacco Smoked in Last 30 Days: No e-Cigarette/Vaping Use: Never Used Second Hand Smoke Exposure: No Use of substances other than those prescribed or required for medical reasons: No Advance Directives: No Advance Directives Information Provided: Yes service: No Current occupational status: disabled Sexual orientation: Straight/Heterosexual Gender identity: Female Cognitive needs: No Hearing needs: No Vision needs: No Physical Exam ED Vital Signs: Vital Signs - 24 hr 06/14/25 10:43 06/14/25 14:14 06/14/25 17:18 Temperature 97.6 F 98.1 F 98.1 F Pulse Rate 83 71 68 Respiratory Rate 18 18 14 Blood Pressure 108/69 193/90 H 140/49 H Pulse Oximetry 95 98 95 Oxygen Delivery Method Room Air Room Air Room Air BMI result Body Mass Index 35.0 Appearance: Alert. Oriented X3. No acute distress. Eyes: Pupils equal, round and reactive to light. R EYE IOP 20, L EYE IOP 17 ENT: Pharynx normal. Neck: Normal inspection. Neck supple. no meningeal signs no enlarged tender temporal artery CVS: Normal heart rate and rhythm. Pulses normal. Respiratory: No respiratory distress. Breath sounds normal. Abdomen: Soft and nontender. Skin: Skin warm and dry. Normal skin color. Extremities: No lower extremity edema. Neuro: Oriented X 3. No motor deficit. No sensory deficit. CN2-12 intact Course Course Course Narrative: This is a rapid medical exam performed by Jose Rodriguez NP: Additional HPI, ROS, PE not included below will be deferred to primary provider. Patient is a 65y/o F pmhx T2DM, HTN, NAFLD, obesity, asthma, rheumatoid arthritis presenting with complaint of elevated BP readings at home, severe headache since yesterday. Recently had BP medication changed to amlodipine/valsartan combo, took first dose yesterday. BP 108/69 in triage. Plan: EKG, CT head, labs Medications Administered Discontinued Medications Generic Name Dose Route Start Last Admin Trade Name Freq PRN Reason Stop Dose Admin Acetaminophen 1,000 mg in 100 mls @ 400 mls/hr 06/14/25 16:35 06/14/25 18:47 Ofirmev IV 06/14/25 16:49 Infused ONCE ONE Infusion Morphine Sulfate 4 mg 06/14/25 16:33 06/14/25 16:58 Morphine Sulfate 4 Mg/Ml Cartridge IVPUSH 06/14/25 16:34 4 mg ONCE ONE Administration Protocol Ondansetron HCl 4 mg 06/14/25 16:33 06/14/25 16:58 Ondansetron Hcl 4 Mg/2 Ml Vial IVPUSH 06/14/25 16:34 4 mg ONCE ONE Administration Medical Decision Making Medical Decision Making [facility] Narrative: 65 yo female wtih PMH of HTN anemia, T2DM, bronchitis, URI, GONGORA here with worsening headache starting at rest and gradually increasing with elevated BPs after taking her medications, on exam normal neuro exam, she has no infectious symptoms and no meningeal signs her neck is soft and supple. She has no other symptoms such as CP or neuro deficits. At this time her headache features started at rest, no LOC, no neck pain, did not occur at exertion will try analgesia and BP control - CT head for ICH but low susp for SAH. Differential Diagnosis Differential Diagnoses: The differential diagnosis associated with the presentation includes tension headache, uncontrolled HTN, glaucoma, med reaction Admission/Observation Consideration of admission/observation: Escalation of care including admission/observation considered work up reassuring BP down she states she will not take this medication has no pain seems unusual for SAH IOP normal at thist deb will DC her new med and attempt another as she states that caused her symptoms Lab Data [facility] Lab Attestation statement: I reviewed the patient's lab results. 06/14/25 11:25 06/14/25 11:25 Labs: Lab Results 06/14/25 Range/Units 11:25 WBC 4.8 (4.8-10.8) X10*3/uL RBC 4.50 (4.20-5.50) X10*6/uL Hgb 14.2 (12.0-16.0) g/dl Hct 41.2 (37.0-47.0) % MCV 91.6 (80.0-98.0) fL MCH 31.6 (27.0-33.0) pg MCHC 34.5 (31.0-35.0) g/dl RDW 11.6 (11.0-16.0) % Plt Count 157 L (160-400) X10*3/uL MPV 11.1 (9.4-12.3) fL Immature Gran % (Auto) 0.4 (0.0-0.4) % Neut % (Auto) 61.3 (45-73) % Lymph % (Auto) 25.3 (20-40) % [place] % (Auto) 6.0 (2-11) % Eos % (Auto) 6.4 H (0-4) % Baso % (Auto) 0.6 (0-2) % Lymph # (Auto) 1.2 (1.2-4.9) X10*3/uL [place] # (Auto) 0.3 (0.1-1.2) X10*3/uL Eos # (Auto) 0.3 (0.0-0.4) X10*3/uL Baso # (Auto) 0.0 (0.0-0.2) X10*3/uL Abs Immat Gran (auto) 0.02 (0.00-0.03) X10*3/uL Absolute Neuts (auto) 3.0 (2.0-8.3) x10*3/uL Absolute Nucleated RBC 0.000 (0.0-0.012) X10*3/uL Nucleated RBC % (auto) 0.0 (0.0-0.2) /100WBC Sodium 140 (135-145) mmol/L Potassium 3.6 (3.3-5.1) mmol/L Chloride 107 (96-108) mmol/L Carbon Dioxide 26 (22-29) mmol/L Anion Gap 11 L (12-20) BUN 12 (9-16) mg/dL Creatinine 0.68 (0.5-1.4) mg/dL Estim Creat Clear Calc 94.3 Estimated GFR > 60 Random Glucose 301 H (60-115) mg/dL Calcium 9.0 (8.4-10.2) mg/dL Total Bilirubin 1.0 (0.0-1.0) mg/dL AST 29 (5-31) U/L ALT 27 (0-31) U/L Alkaline Phosphatase 89 (39-117) U/L Troponin I High Sens < 2.7 (<3.5-17.0) ng/L Total Protein 7.3 (6.5-8.0) g/dL Albumin 4.1 (3.5-5.0) g/dL Independent Interpretation I performed an independent interpretation of an: EKG and CT Scan (normal ) Interpretation: Rate: 75 Rhythm: NSR Reagan: left, LVH Normal P waves. Normal SANDY. Normal QRS complex. ST T wave : normal no INGE qTC: 424 prior studies: no acute ischemia The study has been interpreted contemporaneously by me. . Radiology Impression Discussion of test interpretation with radiology: I have reviewed the radiologist's reading. External Record Review External record reviewed: Prior outpatient labs Prescription Management I considered prescription management with: Other Chronic Conditions Patient?s care impacted by: Other Discharge Plan Discharge Clinical Impression: HTN (hypertension) Qualifiers: Hypertension type: unspecified Qualified Code(s): I10 - Essential (primary) hypertension Acute headache Qualifiers: Headache type: unspecified Intractability: not intractable Qualified Code(s): R51.9 - Headache, unspecified Patient Disposition: Home, Self-Care Instructions: Acute Headache (ED), Chronic Hypertension (ED) Additional Instructions: return for worsening pain, fevers, vomiting, confusion, numbness weakness or any other concerns please follow up with your doctor monitor your blood pressure closely if symptomatic and it is > 180/100 please consult medical attention Prescriptions: New amlodipine 10 mg tablet 10 mg PO DAILY Qty: 90 0RF losartan 100 mg tablet 100 mg PO DAILY Qty: 90 0RF No Action albuterol sulfate 90 mcg/actuation HFA aerosol inhaler 2 inh PO Q4H PRN (Reason: shortness of breath or wheezing) Qty: 8.5 1RF (DME) FreeStyle Lite Strips Strip See Rx Instructions .ROUTE .MEDSUPPLY Qty: 50 11RF Rx Instructions: Use 1 test strip once a day (DME) blood-glucose meter [FreeStyle Lite Meter] Kit See Rx Instructions .ROUTE .MEDSUPPLY Qty: 1 0RF Rx Instructions: E11.9 ONCE A DAY (DME) lancets [FreeStyle Lancets] 28 gauge misc See Rx Instructions .ROUTE .MEDSUPPLY Qty: 100 11RF Rx Instructions: Use 1 lancet once a day as needed (DME) blood pressure monitor Kit See Rx Instructions .Route Qty: 1 0RF Rx Instructions: As directed rosuvastatin 10 mg tablet 10 mg PO DAILY 90 Days Qty: 90 1RF ipratropium-albuterol 0.5 mg-3 mg(2.5 mg base)/3 mL solution for nebulization 3 ml inhalation Q6H PRN (Reason: wheezing) Qty: 180 0RF Orencia ClickJect 125 mg/mL auto-injector 125 mg subcut QWEEK Qty: 4 4RF omeprazole 20 mg capsule,delayed release(DR/EC) 20 mg PO DAILY Qty: 90 0RF dicyclomine 20 mg tablet 20 mg PO TID PRN (Reason: abdominal pain) 30 Days Qty: 90 0RF docusate sodium [Col-Rite] 100 mg capsule 100 mg PO BID Qty: 30 0RF meclizine 50 mg tablet 50 mg PO DAILY PRN (Reason: motion sickness) Qty: 14 0RF acetaminophen 500 mg capsule 1,000 mg PO Q8H PRN (Reason: fever or pain) Qty: 14 0RF tramadol 50 mg tablet 50 mg PO Q8H PRN (Reason: pain) Qty: 12 0RF sucralfate 1 gram tablet 1 g PO TID PRN (Reason: Upper abdominal pain) Qty: 60 0RF ondansetron 4 mg tablet,disintegrating 4 mg PO Q6H PRN (Reason: nausea and vomiting) Qty: 10 0RF sennosides [senna] 8.6 mg tablet 8.6 mg PO BEDTIME PRN (Reason: constipation) 7 Days Qty: 7 0RF nabumetone 750 mg tablet 750 mg PO BID 30 Days Qty: 60 6RF (DME) blood pressure test kit-large Kit See Rx Instructions .ROUTE .MEDSUPPLY Qty: 1 Rx Instructions: As directed Trulicity 1.5 mg/0.5 mL pen injector 1.5 mg subcut QWEEK 28 Days Qty: 2 5RF fluticasone propionate 110 mcg/actuation HFA aerosol inhaler 2 puff inhalation BID 30 Days Qty: 12 5RF Rx Instructions: administer with spacer Serevent Diskus 50 mcg/dose blister with device 1 inh inhalation BID 30 Days Qty: 60 5RF (DME) cock up splint See Rx Instructions .Route .MEDSUPPLY Qty: 1 0RF Rx Instructions: wear on the right wrist at night gabapentin 300 mg capsule 300 mg PO TID 30 Days Qty: 90 6RF albuterol sulfate 2.5 mg /3 mL (0.083 %) solution for nebulization 2.5 mg inhalation ONCE Qty: 3 0RF bisacodyl 5 mg tablet,delayed release (DR/EC) 10 mg PO .daily 90 Days Qty: 180 1RF polyethylene glycol 3350 [Miralax] 17 gram/dose powder 17 g PO DAILY Qty: 238 1RF Rx Instructions: hold for loose stools losartan 100 mg tablet 100 mg PO DAILY 30 Days Qty: 30 4RF pioglitazone 30 mg tablet 30 mg PO DAILY 90 Days Qty: 90 1RF Cholestyramine Light 4 gram powder 4 g PO BID PRN (Reason: diarrhea) 30 Days Qty: 210 0RF Rx Instructions: administer w/meal; avoid other meds within 1hr before or 4-6hr after dose Print Language: Paraguayan
--- NOTE | 2025-06-14 10:47 | ECG_ITS ---
Test Reason : hypertension Blood Pressure : */* mmHG Vent. Rate : 75 BPM Atrial Rate : 75 BPM P-R Int : 188 ms QRS Dur : 90 ms QT Int : 380 ms P-R-T Axes : 36 -6 30 degrees QTcB Int : 424 ms Normal sinus rhythm Minimal voltage criteria for LVH, may be normal variant ( R in aVL ) Borderline ECG When compared with ECG of 04-Apr-2025 13:56, No significant change was found Referred By: Prachi Rodriguez Electronically Signed By: Charlie Peters
[2025-06-14 11:29] LABS: MANUAL DIFF FLAG NO
[2025-06-14 11:40] LABS: Hematocrit 41.2 % (37.0-47.0); Hemoglobin 14.2 g/dl (12.0-16.0); Mean Corpuscular Hemoglobin 31.6 pg (27.0-33.0); Mean Corpuscular Volume 91.6 fL (80.0-98.0); Red Blood Count 4.50 X10*6/uL (4.20-5.50); White Blood Count 4.8 X10*3/uL (4.8-10.8)
[2025-06-14 11:41] LABS: Imm Gran Abs Auto 0.02 X10*3/uL (0.00-0.03); Imm Gran Pct Auto 0.4 % (0.0-0.4); Lymphocytes Absolute Auto 1.2 X10*3/uL (1.2-4.9); Mean Corpuscular HGB Conc 34.5 g/dl (31.0-35.0); NRBC Abs Auto 0.000 X10*3/uL (0.0-0.012); NRBC Pct Auto 0.0 /100WBC (0.0-0.2); Platelet Count 157 X10*3/uL (160-400)
[2025-06-14 12:01] LABS: Alanine Aminotransferase 27 U/L (0-31); Albumin Level 4.1 g/dL (3.5-5.0); Alkaline Phosphatase 89 U/L (39-117); Anion Gap 11 (12-20); Aspartate Amino Transferase 29 U/L (5-31); Blood Urea Nitrogen 12 mg/dL (9-16); Calcium 9.0 mg/dL (8.4-10.2); Carbon Dioxide 26 mmol/L (22-29); Chloride 107 mmol/L (96-108); Creatinine Clr Calc Pharmacy 94.3; Estimated Glomerular Filt Rate > 60; Potassium 3.6 mmol/L (3.3-5.1); Sodium 140 mmol/L (135-145); Total Protein 7.3 g/dL (6.5-8.0)
[2025-06-14 12:06] LABS: Troponin-I High Sensitivity < 2.7 ng/L (<3.5-17.0)
[2025-06-14 14:14] VITALS: BP 193/90; PULSE 71; RESP 18; TEMP 36.7; O2SAT 98
--- OUTSIDE RECORDS SUMMARY | 2025-06-14 15:25 | XMS_ITS | Patient Health Record ---
Author Organization [facility] Address [facility] [place] [address] Care Team Providers Care Radiographer Angiogram Name Role Phone NADINE LERNERROBBIEEnmanuel Primary Care Provide r [phone] SE, CSI BQTAS SE Unavailable [phone] JOLYNN SMALL Unavailable [phone] [place] Unavailable Allergies Allergen (clinical drug ingredient) Drug/Non Drug Allergy documented on EMR Reaction Allergy Type Onset Date Status Flexeril dizziness Drug Allergy Active Norflex dizziness Drug Allergy Active Results Component Value Reference Range Flag Notes INFLUENZA AG A & B Reviewed date:09/29/2024 02:13:23 PM Interpretation: Performing Lab: Notes/Report: REPORTED TO: MS. Poncho BUENROSTROTIZ DATE & TIME: 09/29/2024 2:00PM A negative test result may occur if the level of antigen in a sample is MT: LCDA. Santi BARILLAS READ BACK: OK below the detection limit of the test. Test results must be evaluated in conjunction with other clinical data. Col. Tabitha. Med. P.R. ORDER [id number] PERFORMED AT: Negative test results do not rule out other non-influenza viral infections Pat. No.: [id number] [facility] [place] Positive test results do not identify specific influenza A virus subtypes Paid [address] [facility] [address] [place] [address] Individuals who recieved nasally influenza A vaccine may have positive Exp: 12/08/2024 TERRENCE, EVANGELISTA [id number] test results for up to three days after vaccination. Num: [id number] DIRECTOR: JAIME SARAVIA LICENSE.: [id number] CLIA: [id number] INFLUENZA A ANTIGEN POSITIVE NEGATIVE A INFLUENZA B ANTIGEN NEGATIVE NEGATIVE METHOD: STATUS COVID-19/FLU A&B COVID-19 ANTIGEN Reviewed date:09/29/2024 02:13:34 PM Interpretation: Performing Lab: Notes/Report: Col. Tabitha. Med. P.R. ORDER [id number] PERFORMED AT: -- Positive results indicate the presence of COVID-19 antigen, but clinical Pat. No.: [id number] [facility] [place] correlation with patient history and other diagnostic information is Paid 5 [address]ents [address] necessary to determine infection status. Positive results do not rule out Exp: 12/08/2024 [place] [address] bacterial infection or co-infection with other viruses and do not Num: [id number] differentiate between SARS-CoV and SARS-CoV-2. DIRECTOR: JAIME SARAVIA -- Negative results, from patients with symptom onset beyond seven days, LICENSE.: [id number] CLIA: [id number] should be treated as presumptive and confirmation [...] Performing Lab: Notes/Report: See Below For Report [id number].Report Text See Below For Report CBC + DIFF Reviewed date:12/28/2024 02:51:15 PM Interpretation: Performing Lab: Notes/Report: CBC Col. Tabitha. Med. P.R. ORDER [id number] PERFORMED AT: Pat. No.: [id number] [facility] [place] [place] Paid [address] Exp: 01/08/2025 [place] [address] Num: [id number] DIRECTOR: JAIME SARAVIA LICENSE.: [id number] CLIA: [id number] WHITE BLOOD COUNT 7.0 4.8-10.8 X10 RED [...] sample is Col. Tabitha. Med. P.R. ORDER [id number] PERFORMED AT: below the detection limit of the test. Pat. No.: [id number] [facility] Test results must be evaluated in conjunction with other clinical data. Paid 5 Cents [address] Negative test results do not rule out other non-influenza viral infections Exp: 01/08/2025 [place] [address] Positive test results do not identify specific influenza A virus subtypes Num: [id number] Individuals who recieved nasally influenza A vaccine may have positive DIRECTOR: JAIME SARAVIA test results for up to three days after vaccination. LICENSE.: [id number] CLIA: [id number] INFLUENZA A ANTIGEN NEGATIVE NEGATIVE INFLUENZA B ANTIGEN NEGATIVE NEGATIVE METHOD: STATUS COVID-19/FLU A&B COVID-19 ANTIGEN Reviewed date:12/28/2024 02:51:15 PM Interpretation: Performing Lab: Notes/Report: Col. Tabitha. Med. P.R. ORDER [id number] PERFORMED AT: -- Positive results indicate the presence of COVID-19 antigen, but clinical Pat. No.: [id number] [facility] [place] [place] correlation with patient history and other diagnostic information is Paid 5 Cents [address] necessary to determine infection status. Positive results do not rule out Exp: 01/08/20[place] [address] bacterial infection or co-infection with other viruses and do not Num: [id number] differentiate between SARS-CoV and SARS-CoV-2. DIRECTOR: JAIME SARAVIA -- Negative results, from patients with symptom onset beyond seven days, LICENSE.: [id number] CLIA: [id number] should be treated as presumptive and confirmation [...] Notes/Report: See Below For Report Chest PA: [id number].Report Text See Below For Report Reason For [...] needed Orally Every 6 hours 09/29/2024 Unknown Ozndpbpw-Vhhmwmyoz-QN 1 % Solution 4 drops into affected [...] 14 alicea No Simmons viajado fuera de AL o simmons estado en contacto con alguien que haya estado fuera de AL en los pasados 14 alicea No Se [...] de maltrato No ..Viaje reciente fuera de AL <2 meses No Transfusion/inmunisaciones Siguiente ..Transfusiones de maura No ..Reaccion a transfusion No ..Inmunizacion Si ..Inmunizacion Tetano Si Nececidades para comunicacion o acomodo Ninguna Paciente o familiar comprend e requeridos e instrucciones de [place] doctor? Si Paciente expresa chrissie pa ra el cumplimiento de birmingahm tratamiento No Sexual History: Social Info Question [...] Section Notes: TAMARA NOBLES RN. BSN Lic. [id number], SHARDA M 09/29/2024 11:15:44 AM > Problems Problem Type SNOMED Code ICD Code Onset Dates Problem Status W/U Status Risk Notes Problem Essential hypertension (78474812) Essential (primary) hypertension (I10) Active confirmed Essential (primary) hypertension Problem Chronic pain (21137912) Other chronic pain (G89.29) Active confirmed Problem Postmenopausal bleeding (45074489) Postmenopausal bleeding (N95.0) Active confirmed Problem Hyperglycemia due to type 2 diabetes mellitus (611061548483998) Controlled type 2 diabetes mellitus with hyperglycemia, without long-term current use of insulin (E11.65) Active confirmed Problem Acute severe exacerbation of mild persistent asthma (disorder) (447828536) Mild persistent asthma with acute exacerbation (J45.31) Active confirmed Problem Rheumatoid arthritis (95594940) Rheumatoid arthritis involving multiple sites with positive rheumatoid factor (M05.79) Active confirmed Problem Body mass index 30.00 to 34.99 (846286488834672) Body mass index (BMI) of 33.0 to 33.9 in adult (Z68.33) Active confirmed Problem Type II diabetes mellitus without complication (910628525) Controlled diabetes mellitus (E11.9) Active confirmed Problem Rheumatoid arthritis (81928376) Rheumatoid arthritis involving multiple sites, unspecified rheumatoid factor presence (M06.9) Active confirmed Problem Diabetes mellitus type 2 (04777825) Diabetes mellitus type 2, uncontrolled (E11.65) Active confirmed Problem Morbid obesity (636470862) Morbid obesity (E66.01) Active confirmed Problem Mild intermittent asthma (749427847) Asthma, intermittent, uncomplicated (J45.20) Active confirmed Problem Body mass index 40+ - morbidly obese (462207849) BMI 40.0-44.9, adult (Z68.41) Active confirmed Problem Herpes simplex labialis (0481275) 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 MEDIA EXECUTIVE Lic. [id number], GENE 12/28/2024 02:19:43 PM >Paciente no refiere dolor al momento de renato. Temperature 37.0 C 12/28/2024 CÉSAR BARBA. MEDIA EXECUTIVE Lic. [id number], GENE 12/28/2024 02:19:43 PM >Paciente no refiere dolor al momento de renato. Respiratory Rate 19 /min 12/28/2024 CÉSAR BARBA . MEDIA EXECUTIVE Lic. [id number], GENE 12/28/2024 02:19:43 PM >Paciente no refiere dolor al momento de renato. Oximetry 98 % 12/28/2024 CÉSAR BARBA. MEDIA EXECUTIVE Lic. [id number], GENE 12/28/2024 02:19:43 PM >Paciente no refiere dolor al momento de renato. Height-cm 154.94 cm 12/28/2024 CÉSAR BARBA. MEDIA EXECUTIVE Lic. [id number], GENE 12/28/2024 02:19:43 PM >Paciente no refiere dolor al momento de renato. Blood pressure diastolic 73 mm Hg 12/28/2024 BHARTI BARBA. MEDIA EXECUTIVE Lic. [id number], GENE 12/28/2024 02:19:43 PM >Paciente no refiere dolor al momento de renato. Weight-kg 95.25 kg 12/28/2024 CÉSAR BARBA. MEDIA EXECUTIVE Lic. [id number], GENE 12/28/2024 02:19:43 PM >Paciente no refiere dolor al momento de renato. Height 61 in 12/28/2024 CÉSAR BARBA. MEDIA EXECUTIVE Lic. [id number], GENE 12/28/2024 02:19:43 PM >Paciente no refiere dolor al momento de renato. Blood pressure systolic 155 mm Hg 12/28/2024 EDWARD BARBA. MEDIA EXECUTIVE Lic. [id number], GENE 12/28/2024 02:19:43 PM >Paciente no refiere dolor al momento de renato. Weight 210 lbs 12/28/2024 CÉSAR BARBA. MEDIA EXECUTIVE Lic. [id number], GENE 12/28/2024 02:19:43 PM >Paciente no refiere dolor al momento de renato. BMI 39.67 kg/m2 12/28/2024 CÉSAR BARBA. MEDIA EXECUTIVE Lic. [id number], GENE 12/28/2024 02:19:43 PM >Paciente no refiere dolor al momento de renato. Encounters Encounter Location Date Provider Diagnosis [facility] [address] [place], [place] [id number] 09/29/2024 JOLYNN MEZA FRANCO URTI (acute upper respiratory infection) J06.9 ; Influenza A J10.1 and Acute cough R05.1 [facility] [address] [place], [place] [id number] 12/28/2024 PACO HAWLEY Cough R05.9 ; Low back pain M54.50 and Asthma exacerbation J45.901 Assessments Encounter Date Diagnosis (ICD Code) Assessment Notes Treatment Notes Treatment Clinical Notes Section Notes 12/28/2024 Cough (ICD-10 - R05.9) 1) TUSSIN 10 ML PO 2) [id number] MG IV 3) SOLUMEDROL 125 M GIV 4) ALBUTEROL 0.083 + ATROVENT 0.02 BY PN ONCE [place] 12/28/2024 12:50:51 PM > CÉSAR BARBA. MEDIA EXECUTIVE Lic. [id number], GENE 12/28/2024 12:57:44 PM > Orden tomada. CÉSAR BARBA. MEDIA EXECUTIVE Lic. [id number], GENE 12/28/2024 12:57:44 PM > CÉSAR BARBA. MEDIA EXECUTIVE Lic. [id number], GENE 12/28/2024 01:10:58 PM > Se recibe [...] 0.083% + Atrovent 0.02 10/11. CÉSAR BARBA. MEDIA EXECUTIVE Lic. [id number], GENE 12/28/2024 01:10:58 PM > CÉSAR BARBA. MEDIA EXECUTIVE Lic. [id number], GENE 12/28/2024 02:10:54 PM > Paciente es [...] en 0 al momento del renato. CÉSAR BARAB. MEDIA EXECUTIVE Lic. [id number], GENE 12/28/2024 02:10:55 PM > 12/28/2024 Low [...] 09/29/2024 Other DYLAN ALVAREZ RN, BSN LIC. [id number], NATHANIEL M 09/29/2024 01:25:28 PM > Se [...] refiere entender. DYLAN ALVAREZ RN, BSN LIC. [id number], [facility] 09/29/2024 01:25:29 PM > MIKIE SAM RN BSN, Lic. [id number], [place] 09/29/2024 02:00:01 PM > Se recibe llamada del laboratorio de la [facility]. Santi Barillas reportando influenza A positivo; se le notifica al Dr. Meza. MIKIE SAM MEDIA EXECUTIVE, Lic. [id number], [place] 09/29/2024 02:00:02 PM > DYLAN ALVAREZ RN, BSN LIC. [id number], [facility] 09/29/2024 02:44:16 PM > Paciente es dado [...] del renato. DYLAN ALVAREZ RN, BSN LIC. [id number], [facility] 09/29/2024 02:44:27 PM > Plan Of Treatment [...] Insured Coverage Start Date Coverage End Date [address] [phone] [id number] Diaz Self - patient is the insured 4 5 Medical (General) History Medical History History ICD Code ARTRITIS REUMATOIDEA DIABETICA ASMA RENATO PRESION Surgical History Surgery Date(Month/Year) cholecystectomy
--- NOTE | 2025-06-14 17:14 | PC.NURSE ---
IV access established and pt medicated per orders for CHRISTINE; BP 140/49 at this time
[2025-06-14 17:18] VITALS: BP 140/49; PULSE 68; RESP 14; TEMP 36.7; O2SAT 95
[2025-06-14 19:18] VITALS: BP 139/67; PULSE 59; RESP 16; TEMP 36.6; O2SAT 97
[2025-06-14 20:57] VITALS: BP 139/67; PULSE 59; RESP 16; TEMP 36.6; O2SAT 97
== END 2025-06-14 19:50 | disposition home or self-care (01) ==
PROVIDERS: Registered Nurse Emergency; Emergency Provider Emergency Medicine; PCP Internal Medicine
DX: R51.9 Headache, unspecified (principal); I10 Essential (primary) hypertension; R94.31 Abnormal electrocardiogram [ECG] [EKG]; E11.9 Type 2 diabetes mellitus without complications; Z79.899 Other long term (current) drug therapy; Z79.85 Long-term (current) use of injectable non-insulin antidiabetic drugs
CPT/HCPCS: 36415; 70450; 80053; 84484; 85025; 93005; 96365; 96366; 96375; 99284; 99285; J0131; J2270; J2405

== ENCOUNTER → 2025-06-14 10:47 | Outpatient (BNV) | payer MEDICARE, MEDICAID, SELFPAY | PROVIDERS: PCP Internal Medicine; Visit Provider Internal Medicine Cardiovascular Disease | DX: I10 Essential (primary) hypertension (principal) | CPT/HCPCS: 93010 ==

== ENCOUNTER → 2025-06-14 10:47 | Outpatient (BNV) | payer MEDICARE, MEDICAID, SELFPAY | PROVIDERS: PCP Internal Medicine; Visit Provider Radiology Diagnostic Radiology | DX: R90.82 White matter disease, unspecified (principal) | CPT/HCPCS: 70450 ==

== ENCOUNTER 2025-06-25 11:17 | Outpatient (AMB) | payer MEDICARE, MEDICAID, SELFPAY ==
--- NOTE | 2025-06-25 11:20 | MHC.OFFVIS ---
Vital Signs 06/25/25 11:23 Weight 211 lb 10.3 oz BP 121/58 L Blood Pressure Location Lt brachial Position Sitting Pulse 85 Intake Visit Reasons: S/P [place] Intake Note: Laura presents in the office as a follow up colonoscopy. CC: She states that she had a colonoscopy and had a pain in the abdomen umbilical region. Gastroenterology Manager Required: Yes Allergies cyclobenzaprine (From Flexeril) Allergy (Intermediate, Verified 06/25/25 11:24) Dizziness orphenadrine (From Norflex) Allergy (Intermediate, Verified 06/25/25 11:24) Dizziness sarilumab (From Kevzara) Allergy (Intermediate, Verified 06/25/25 11:24) Rash HPI Comments Details: This is a 64y.o F who was referred for her PCP for GONGORA . Pt does not report any abd pain, N,V. Pt does not drink etOH. No fam hx of liver disease in FDRs. No new meds. Normal LFTs Ultrasound abdomen 04/29/2024: Increased echogenicity possible steatosis. Status post cholecystectomy. No CBD dilation. 04/02/25: Was lost to follow up. Now returning to care due to issues with constipation causing RLQ pain. Was seen in ER in February as well for severe constipation. Reports BMs are small and hard, has to strain and passes small pieces. SOmetimes sees blood. Stools also appear to be narrow in caliber. Reports sx seem to be worse for the past 3 months. Last colo 2019 - 1 benign polyp. 05/10/25: 1. Normal esophagus 2. Gastritis 3. Duodenitis 4. Normal colon and terminal ileum mucosa 5. Internal and external hemorrhoids Path: A. Duodenum, biopsy: Duodenal mucosa with Chevy gland hyperplasia and denuded surface epithelium; otherwise within normal limits. B. Stomach, random, biopsy: Antral-type and oxyntic mucosa with mild chronic inactive inflammation; no Helicobacter organisms seen 06/25/25: Here for follow up. Accompanied by fam members. REsulrs of egd.colo reviewed. Pt with occ persistent post prandial pain. Mostly on RIGHT side. Reviewed that typically from gastritis pain is epigastric. Pt is s/p cholecystectomy but has a fat heavy diet. [facility] Medical History Urinary tract infection Bronchitis Morbid obesity with BMI of 45.0-49.9, adult Sacroiliitis Rheumatic fever TIA (transient ischemic attack) Right-sided back pain History of COVID-19 Asthma exacerbation Hospital discharge follow-up Sacroiliitis Renal calculi Costovertebral angle tenderness Burning with urination Disc degeneration, lumbar Spondylosis of cervical spine Spondylosis of lumbar spine Pleuritic pain Restrictive lung disease Morbid obesity Asthma Dyslipidemia Essential hypertension Vaginal modesta Seropositive rheumatoid arthritis Rheumatoid arthritis Diabetes Surgical History History of cholecystectomy Hx of colonoscopy (09/01/19) History of surgery on wrist Family History Father Diabetes mellitus Myocardial infarction Hypertension CVD (cardiovascular disease) Mother Diabetes mellitus CVD (cardiovascular disease) Sister No problems noted. Son No problems noted. Son No problems noted. Son No problems noted. Daughter Thyroiditis Daughter No problems noted. Daughter No problems noted. Daughter No problems noted. Daughter No problems noted. Other Asthma exacerbation Social History Housing: Apartment Alcohol intake: never Patient Tobacco Use Status: Never used Tobacco e-Cigarette/Vaping Use: Never Used Second Hand Smoke Exposure: No service: No Current occupational status: disabled Sexual orientation: Straight/Heterosexual Gender identity: Female Cognitive needs: No Hearing needs: No Vision needs: No Female Reproductive History Menstrual Age of Menarche: 11 Date of menopause: 01/22/10 Review of Systems Const All systems reviewed & are unremarkable except as noted in HPI and below Physical Exam Exam Exam: No apparent distress, with obesity Nonicteric Abdomen soft, nondistended Alert and oriented x3, normal gait Vital Signs: Last Vital Signs Pulse 85 06/25/25 11:23 BP 121/58 L 06/25/25 11:23 Assessment & Plan Assessment & Plan (1) Right sided abdominal pain: Code(s): R10.9 - Unspecified abdominal pain (2) Blood in stool: Code(s): K92.1 - Melena Category: Medical (3) Morbid obesity with BMI of 40.0-44.9, adult: Code(s): E66.01 - Morbid (severe) obesity due to excess calories; Z68.41 - Body mass index [BMI] 40.0-44.9, adult Category: Medical (4) Type 2 diabetes mellitus with hyperglycemia: Code(s): E11.65 - Type 2 diabetes mellitus with hyperglycemia Category: Medical Plan Discussed that rectal bleeding wa slikely 2/2 hemorrhoidal bleeding. Repeat colo recommended in 10 years. In terms of abd pain, likely 2/2 dietary indiscretion and a fat rich diet.She was educated that some discomfort is also expected after dose change in GLP-1A. Plan: - Increase omeprazole 20 to BID x 8-12 weeks and then once daily - Reviewed low carb low fat diet for DM and post cholecystectomy - Repeat colo for asymptomatic colorectal ca screening in 10 years Follow up in office PRN Coding Level of Care Code Est Pt Level 4 (62951) Diagnoses Right sided abdominal pain R10.9 Blood in stool K92.1 Morbid obesity with BMI of 40.0-44.9, adult E66.01; Z68.41 Type 2 diabetes mellitus with hyperglycemia E11.65
[2025-06-25 11:23] VITALS: BP 121/58; PULSE 85
--- OUTSIDE RECORDS SUMMARY | 2025-06-25 15:20 | XMS_ITS | Patient Health Record ---
Author Organization [facility] Address [facility] [address] [place] [address] Care Team Providers Care Green Promotions Specialist Name Role Phone ASAD LERNER Primary Care Provide r [phone] SE, CSI BQTAS SE Unavailable [phone] JOLYNN SMALL Unavailable [place] Unavailable [phone] Allergies Allergen (clinical drug ingredient) Drug/Non Drug Allergy documented on EMR Reaction Allergy Type Onset Date Status Flexeril dizziness Drug Allergy Active Norflex dizziness Drug Allergy Active Results Component Value Reference Range Flag Notes CHEST-AP ONLY *1 VIEW Reviewed date:01/01/2025 08:48:19 AM Interpretation: Performing Lab: Notes/Report: See Below For Report Chest PA: [id number].Report Text See Below For Report INFLUENZA AG A & B Reviewed date:12/28/2024 02:51:15 PM Interpretation: Performing Lab: Notes/Report: LICENSE.: [id number] CLIA: [id number] test results for up to three days after vaccination. DIRECTOR: JAIME SARAVIA Individuals who recieved nasally influenza A vaccine may have positive Num: [id number] Positive test results do not identify specific influenza A virus subtypes Exp: 01/08/2025 [place] [address] Negative test results do not rule out other non-influenza viral infections Paid 5 Cents [facility] [address] Test results must be evaluated in conjunction with other clinical data. Pat. No.: [id number] [facility] [place] below the detection limit of the test. Col. Tabitha. Med. P.R. ORDER [id number] PERFORMED AT: A negative test result may occur if the level of antigen in a sample is INFLUENZA A ANTIGEN NEGATIVE NEGATIVE INFLUENZA B ANTIGEN NEGATIVE NEGATIVE METHOD: STATUS COVID-19/FLU A&B COVID-19 ANTIGEN Reviewed date:12/28/2024 02:51:15 PM Interpretation: Performing Lab: Notes/Report: Col. Tabitha. Med. P.R. ORDER [id number] PERFORMED AT: -- Positive results indicate the presence of COVID-19 antigen, but clinical Pat. No.: [id number] [facility] correlation with patient history and other diagnostic information is Paid 5 Cents [address] necessary to determine infection status. Positive results do not rule out Exp: 01/08/2025 [place] [address] bacterial infection or co-infection with other viruses and do not Num: [id number] differentiate between SARS-CoV and SARS-CoV-2. DIRECTOR: JAIME SARAVIA -- Negative results, from patients with symptom onset beyond seven days, LICENSE.: [id number] CLIA: [id number] should be treated as presumptive and confirmation [...] Ag NEGATIVE NEGATIVE METHOD: STATUS COVID-19/FLU A&B CBC + DIFF Reviewed date:12/28/2024 02:51:15 PM Interpretation: Performing Lab: Notes/Report: CBC Col. Tabitha. Med. P.R. ORDER [id number] PERFORMED AT: Pat. No.: [id number] [facility] [place] Paid 5 Cents [address] Exp: 01/08/2025 [place] [address] Num: [id number] DIRECTOR: JAIME SARAVIA LICENSE.: [id number] CLIA: [id number] WHITE BLOOD COUNT 7.0 4.8-10.8 X10 RED [...] x10 H BA # 0.0 0-0.1 x10 RBC MORPHOLOGY BY: DxH 560 1 MAYANK INFLUENZA AG A & B Reviewed date:09/29/2024 02:13:23 PM Interpretation: Performing Lab: Notes/Report: LICENSE.: [id number] CLIA: [id number] DIRECTOR: JAIME SARAVIA Num: [id number] test results for up to three days after vaccination. Exp: 12/08/2024 [place] [address] Individuals who recieved nasally influenza A vaccine may have positive Paid 5 Cents [address] [address] Positive test results do not identify specific influenza A virus subtypes Pat. No.: [id number] [facility] [place] Negative test results do not rule out other non-influenza viral infections Col. Tabitha. Med. P.R. ORDER [id number] PERFORMED AT: Test results must be evaluated in conjunction with other clinical data. below the detection limit of the test. MT: LCDA. Santi BARILLAS READ BACK: OK A negative test result may occur if the level of antigen in a sample is REPORTED TO: MS. Poncho DELUNA DATE & TIME: 09/29/2024 2:00PM INFLUENZA A ANTIGEN POSITIVE NEGATIVE A INFLUENZA B ANTIGEN NEGATIVE NEGATIVE METHOD: STATUS COVID-19/FLU A&B COVID-19 ANTIGEN Reviewed date:09/29/2024 02:13:34 PM Interpretation: Performing Lab: Notes/Report: Col. Tabitha. Med. P.R. ORDER [id number] PERFORMED AT: -- Positive results indicate the presence of COVID-19 antigen, but clinical Pat. No.: [id number] [facility] [place] correlation with patient history and other diagnostic information is Paid [address] [facility] [address] necessary to determine infection status. Positive results do not rule out Exp: 12/08/2024 [place] [address] bacterial infection or co-infection with other viruses and do not Num: [id number] differentiate between SARS-CoV and SARS-CoV-2. DIRECTOR: JAIME SARAVIA -- Negative results, from patients with symptom onset beyond seven days, LICENSE.: 1369 CLIA: [id number] should be treated as presumptive and confirmation [...] Performing Lab: Notes/Report: See Below For Report [id number].Report Text See Below For Report Reason For [...] needed Orally Every 6 hours 09/29/2024 Unknown Dxlkqolc-Xhxcbyxjf-MA 1 % Solution 4 drops into affected [...] 14 alicea No Simmons viajado fuera de [place] o simmons estado en contacto con alguien que haya estado fuera de [place] en los pasados 14 alicea No Se [...] de maltrato No ..Viaje reciente fuera de [place] <2 meses No Transfusion/inmunisaciones Siguiente ..Transfusiones de [...] Section Notes: TAMARA NOBLES RN. BSN Lic. [id number], SHARDA M 09/29/2024 11:15:44 AM > Problems Problem Type SNOMED Code ICD Code Onset Dates Problem Status W/U Status Risk Notes Problem Chronic pain (86225224) Other chronic pain (G89.29) Active confirmed Problem Essential hypertension (38529129) Essential (primary) hypertension (I10) Active confirmed Essential (primary) hypertension Problem Postmenopausal bleeding (90219961) Postmenopausal bleeding (N95.0) Active confirmed Problem Hyperglycemia due to type 2 diabetes mellitus (819412287819414) Controlled type 2 diabetes mellitus with hyperglycemia, without long-term current use of insulin (E11.65) Active confirmed Problem Acute severe exacerbation of mild persistent asthma (disorder) (725640849) Mild persistent asthma with acute exacerbation (J45.31) Active confirmed Problem Rheumatoid arthritis (00284878) Rheumatoid arthritis involving multiple sites with positive rheumatoid factor (M05.79) Active confirmed Problem Body mass index 30.00 to 34.99 (197947452103953) Body mass index (BMI) of 33.0 to 33.9 in adult (Z68.33) Active confirmed Problem Type II diabetes mellitus without complication (353014465) Controlled diabetes mellitus (E11.9) Active confirmed Problem Rheumatoid arthritis (83384967) Rheumatoid arthritis involving multiple sites, unspecified rheumatoid factor presence (M06.9) Active confirmed Problem Diabetes mellitus type 2 (34279672) Diabetes mellitus type 2, uncontrolled (E11.65) Active confirmed Problem Morbid obesity (966557592) Morbid obesity (E66.01) Active confirmed Problem Mild intermittent asthma (025672834) Asthma, intermittent, uncomplicated (J45.20) Active confirmed Problem Body mass index 40+ - morbidly obese (428116772) BMI 40.0-44.9, adult (Z68.41) Active confirmed Problem Herpes simplex labialis (5876744) 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 [employer]URING PLANNER Lic. [id number], GENE 12/28/2024 02:19:43 PM >Paciente no refiere dolor al momento de renato. Temperature 37.0 C 12/28/2024 CÉSAR BARBA. [employer]ING PLANNER Lic. [id number], GENE 12/28/2024 02:19:43 PM >Paciente no refiere dolor al momento de renato. Respiratory Rate 19 /min 12/28/2024 CÉSAR BARBA . MANUFA[employer]URING PLANNER Lic. [id number], GENE 12/28/2024 02:19:43 PM >Paciente no refiere dolor al momento de renato. Oximetry 98 % 12/28/2024 CÉSAR BARBA. [employer]ING PL[employer]NER Lic. [id number], GENE 12/28/2024 02:19:43 PM >Paciente no refiere dolor al momento de renato. Height-cm 154.94 cm 12/28/2024 CÉSAR BARBA. [employer]UFA[employer]ING PLANNER Lic. [id number], GENE 12/28/2024 02:19:43 PM >Paciente no refiere dolor al momento de renato. Blood pressure diastolic 73 mm Hg 12/28/2024 BHARTI BARBA. MANUFA[employer]URING PLANNER Lic. [id number], GENE 12/28/2024 02:19:43 PM >Paciente no refiere dolor al momento de renato. Weight-kg 95.25 kg 12/28/2024 CÉSAR BARBA. [employer]UFA[employer]ING PLANNER Lic. [id number], GENE 12/28/2024 02:19:43 PM >Paciente no refiere dolor al momento de renato. Height 61 in 12/28/2024 CÉSAR BARBA. [employer]ING [employer]NER Lic. [id number], GENE 12/28/2024 02:19:43 PM >Paciente no refiere dolor al momento de renato. Blood pressure systolic 155 mm Hg 12/28/2024 EDWARD BARBA. [employer]UFA[employer]URING PLANNER Lic. [id number], GENE 12/28/2024 02:19:43 PM >Paciente no refiere dolor al momento de renato. Weight 210 lbs 12/28/2024 CÉSAR BARBA. [employer]FA[employer]ING PL[employer]NER Lic. [id number], GENE 12/28/2024 02:19:43 PM >Paciente no refiere dolor al momento de renato. BMI 39.67 kg/m2 12/28/2024 CÉSAR BARBA. MANUFA[employer]URING PLANNER Lic. [id number], GENE 12/28/2024 02:19:43 PM >Paciente no refiere dolor al momento de renato. Encounters Encounter Location Date Provider Diagnosis [facility] [address] [place], [place] [id number] 09/29/2024 JOLYNN MEZA FRANCO URTI (acute upper respiratory infection) J06.9 ; Influenza A J10.1 and Acute cough R05.1 [facility] [address] [place], [place] [id number] 12/28/2024 PACO HAWLEY Cough R05.9 ; Low back pain M54.50 and Asthma exacerbation J45.901 Assessments Encounter Date Diagnosis (ICD Code) Assessment Notes Treatment Notes Treatment Clinical Notes Section Notes 12/28/2024 Cough (ICD-10 - R05.9) 1) TUSSIN 10 ML PO 2) MDUSEYK05 MG IV 3) SOLUMEDROL 125 M GIV 4) ALBUTEROL 0.083 + ATROVENT 0.02 BY PN ONCE [place] 12/28/2024 12:50:51 PM > CÉSAR BARBA. [employer]ING PLANNER Lic. [id number], GENE 12/28/2024 12:57:44 PM > Orden tomada. CÉSAR BARBA. [employer]ING PL[employer]NER Lic. [id number], GENE 12/28/2024 12:57:44 PM > CÉSAR BARBA. [employer]UFA[employer]URING PLANNER Lic. [id number], GENE 12/28/2024 01:10:58 PM > Se recibe [...] 0.083% + Atrovent 0.02 10/11. CÉSAR BARBA. [employer]ING PL[employer]NER Lic. [id number], GENE 12/28/2024 01:10:58 PM > CÉSAR BARBA. [employer]ING PLANNER Lic. [id number], GENE 12/28/2024 02:10:54 PM > Paciente es [...] 0 al momento del renato. CÉSAR BARBA. MANUFA[employer]URING PLANNER Lic. [id number], GENE 12/28/2024 02:10:55 PM > 12/28/2024 Low [...] 09/29/2024 Other DYLAN ALVAREZ RN, BSN LIC. [id number], NATHANIEL M 09/29/2024 01:25:28 PM > Se [...] refiere entender. DYLAN ALVAREZ RN, BSN LIC. [id number], [facility] 09/29/2024 01:25:29 PM > MIKIE SAM RN BSN, Lic. [id number], [place] 09/29/2024 02:00:01 PM > Se recibe llamada del laboratorio de la Lcda. Santi Barillas reportando influenza A positivo; se le notifica al Dr. Meza. MIKIE SAM [employer]UFA[employer]URING PLANNER, Lic. [id number], [place] 09/29/2024 02:00:02 PM > DYLAN ALVAREZ RN, BSN LIC. [id number], [facility] 09/29/2024 02:44:16 PM > Paciente es [...] del renato. DYLAN ALVAREZ RN, BSN LIC. [id number], [facility] 09/29/2024 02:44:27 PM > Plan Of [...] Insured Coverage Start Date Coverage End Date [address] [phone] [id number] Diaz Self - patient is the insured 4 5 Medical (General) History Medical History History ICD Code ARTRITIS REUMATOIDEA DIABETICA ASMA RENATO PRESION Surgical History Surgery Date(Month/Year) cholecystectomy
== END 2025-06-25 12:49 | disposition home or self-care (01) ==
LOC: HO.HGI 11:17
PROVIDERS: PCP Internal Medicine; Visit Provider Internal Medicine
DX: R10.9 Unspecified abdominal pain (principal); K92.1 Melena; E66.01 Morbid (severe) obesity due to excess calories; Z68.41 Body mass index [BMI] 40.0-44.9, adult; E11.65 Type 2 diabetes mellitus with hyperglycemia
CPT/HCPCS: 99214

== ENCOUNTER → 2025-06-25 11:17 | Outpatient (BNVA) | payer MEDICARE, MEDICAID, SELFPAY | PROVIDERS: PCP Internal Medicine; Visit Provider Internal Medicine | DX: R10.9 Unspecified abdominal pain (principal); K92.1 Melena; E66.01 Morbid (severe) obesity due to excess calories; Z68.41 Body mass index [BMI] 40.0-44.9, adult; E11.65 Type 2 diabetes mellitus with hyperglycemia; Z98.890 Other specified postprocedural states | CPT/HCPCS: 99212 ==

== ENCOUNTER 2025-06-29 10:45 | Outpatient (AMB) | payer MEDICARE, MEDICAID, SELFPAY ==
--- NOTE | 2025-06-29 10:48 | MHC.OFFVIS ---
Vital Signs 06/29/25 10:57 Height 5 ft 1 in Weight 214 lb 8.156 oz BMI 40.5 BP 162/100 H Blood Pressure Location Rt brachial Position Sitting Pulse 84 Pulse Source Pulse Oximeter Pulse Oximetry (%) 96 Oxygen Delivery Method Room Air Intake Visit Reasons: f/u RA Intake Note: Patient presents for RA follow up. Thermoforming Machine Operator Required: Yes Thermoforming Machine Operator Language: Motor Tester Services: Thermoforming Machine Operator Offered & Declined Thermoforming Machine Operator Name: Loi Merlos Information Interpreted: non-clinical & clinical Fire Management Officer: Fire Management Officer Present (Loi Merlos) Accompanied by: Other Relationship Allergies cyclobenzaprine (From Flexeril) Allergy (Intermediate, Verified 06/29/25 10:56) Dizziness orphenadrine (From Norflex) Allergy (Intermediate, Verified 06/29/25 10:56) Dizziness sarilumab (From Kevzara) Allergy (Intermediate, Verified 06/29/25 10:56) Rash Medication List - Last Reconciled 06/29/25 by Vicky Marcial MD acetaminophen 1,000 mg (2 x 500 mg) PO Q8H PRN albuterol sulfate 90 mcg/actuation 2 inhalations PO Q4H PRN amlodipine 10 mg PO DAILY atorvastatin 10 mg PO DAILY bisacodyl 10 mg (2 x 5 mg) PO .daily 90 days blood pressure monitor As directed blood pressure test kit-large As directed blood sugar diagnostic (FreeStyle Lite Strips) Use 1 test strip once a day blood-glucose meter (FreeStyle Lite Meter kit) E11.9 ONCE A DAY cholestyramine (Cholestyramine Light) 4 grams PO BID PRN 30 days [cock up splint wear on the right wrist at night ] dicyclomine 20 mg PO TID PRN 30 days docusate sodium (Col-Rite) 100 mg PO BID dulaglutide (Trulicity) 1.5 mg (0.5 mL) subcut QWEEK 4 weeks fluticasone propionate 110 mcg/actuation 2 puffs inhalation BID 30 days gabapentin 300 mg PO TID 30 days ipratropium-albuterol 0.5 mg-3 mg(2.5 mg base)/3 mL 3 mL inhalation Q6H PRN lancets (FreeStyle Lancets) Use 1 lancet once a day as needed losartan 100 mg PO DAILY losartan 100 mg PO DAILY 30 days meclizine 50 mg PO DAILY PRN nabumetone 750 mg PO BID 30 days omeprazole 20 mg PO BID 90 days ondansetron 4 mg PO Q6H PRN Orencia ClickJect (abatacept) 125 mg subcut QWEEK NS pioglitazone 30 mg PO DAILY 90 days polyethylene glycol 3350 (Miralax) 17 grams PO DAILY salmeterol (Serevent Diskus) 1 inh inhalation BID 30 days sennosides (senna) 8.6 mg PO BEDTIME PRN 7 days sucralfate 1 g PO TID PRN tramadol 50 mg PO Q8H PRN HPI Comments Details: Patient is a 65-year-old female with asthma, hypertension complicated by a lacunar infarct, diabetes, hyperlipidemia, cervical disc herniation and lumbar spondylosis with radiculopathy, nonalcoholic fatty liver disease and seropositive rheumatoid arthritis here today for follow up Interval History: Patient last seen 02/13/25 with me - On Orencia 125mg SC every week - Patient restarted her Orencia and had improvement in her joint pain but continues to complain of back pain - Saw Pain Management in the past and received back injections but they were not helpful - No other complaints today - referred to PT for cervical and lumbar spondylosis Today - On Orencia 125mg SC every week - Has not received Orencia for the past 2 weeks, ?insurance issues - In PT for her neck but does not feel it is helping much - Still c/o of neck and back pain - No complaints of hand pain Rheumatologic History: ++RF+++CCP deforming dx in her 40s Humira:08/29 - 03/30 -active disease on exam Enbrel:04/29-08/30 - active disease on exam Xeljanz:08/30-12/29- active disease on exam Kevzara: 01/2021- stopped due to rash Orencia: 01/2021 - present effective MTX in the past - transaminitis Current Rheumatology Medication(s): Abatacept 125mg every week PFSH Medical History Urinary tract infection Bronchitis Morbid obesity with BMI of 45.0-49.9, adult Sacroiliitis Rheumatic fever TIA (transient ischemic attack) Right-sided back pain History of COVID-19 Asthma exacerbation Hospital discharge follow-up Sacroiliitis Renal calculi Costovertebral angle tenderness Burning with urination Disc degeneration, lumbar Spondylosis of cervical spine Spondylosis of lumbar spine Pleuritic pain Restrictive lung disease Morbid obesity Asthma Dyslipidemia Essential hypertension Vaginal modesta Seropositive rheumatoid arthritis Rheumatoid arthritis Diabetes Surgical History History of cholecystectomy Hx of colonoscopy (09/01/19) History of surgery on wrist Family History Father Diabetes mellitus Myocardial infarction Hypertension CVD (cardiovascular disease) Mother Diabetes mellitus CVD (cardiovascular disease) Sister No problems noted. Son No problems noted. Son No problems noted. Son No problems noted. Daughter Thyroiditis Daughter No problems noted. Daughter No problems noted. Daughter No problems noted. Daughter No problems noted. Other Asthma exacerbation Social History Housing: Apartment Alcohol intake: never Patient Tobacco Use Status: Never used Tobacco e-Cigarette/Vaping Use: Never Used Second Hand Smoke Exposure: No service: No Current occupational status: disabled Sexual orientation: Straight/Heterosexual Gender identity: Female Cognitive needs: No Hearing needs: No Vision needs: No Female Reproductive History Menstrual Age of Menarche: 11 Date of menopause: 01/22/10 Review of Systems Const Details: Review of Systems Constitutional: Denies fever, chills, weight loss ENT: Denies vision changes, eye pain or eye redness, dental caries, dry mouth GI: Denies nausea, vomiting, diarrhea, abdominal pain, change in BM Pulm: Denies SOB, RIBEIRO, hemoptysis, wheezing Cards: Denies chest pain, palpitations Skin: Denies Raynaud's, rash, nail changes, photosensitivity, DIRECTOR OF PEOPLE: Denies headaches, weakness, paresthesias, recurrent falls MSK: as per HPI All other systems reviewed and are unremarkable except noted above Physical Exam Exam Exam: Vital signs reviewed Physical Examination CONSTITUITIONAL Patient alert and cooperative. Well appearing and in no apparent painful distress MSK Hands Right Hand: Able to make a fist. No swelling or tenderness to palpation of the MCPs, PIPs or DIPs. TTP of the 4th PIP with mild swelling. Reducible swan neck deformities of the 2nd and 3rd digit Left Hand: Able to make a fist. No swelling or tenderness to palpation of the MCPs, PIPs or DIPs. Reducible swan neck deformity of the 5th digit Wrists Right Wrist: Fixed wrist with synovial hypertrophy. No swelling or TTP Left Wrist: Full ROM to flexion and extension. No swelling or TTP Elbows Right Elbow: Full ROM. No swelling or TTP. No TTP of the medial epicondyle. No TTP of the lateral epicondyle Left Elbow: Full ROM. No swelling or TTP. No TTP of the medial epicondyle. No TTP of the lateral epicondyle Shoulders Right shoulder: Full ROM. No swelling noted. No TTP of the AC joint. No TTP of the subacromial bursa. No TTP of the posterior shoulder Left shoulder: Full ROM. No swelling noted. No TTP of the AC joint. No TTP of the subacromial bursa. No TTP of the posterior shoulder Hip bursa: No tenderness to palpation bilaterally Knees Right knee: Full ROM. No swelling noted. No TTP of the knee joint line. No TTP of pes anserine bursa Left knee: Full ROM. No swelling noted. No TTP of the knee joint line. No TTP of pes anserine bursa. Crepitations felt bilaterally Ankles Right ankle: Good ankle dorsiflexion and plantar flexion. No swelling. No TTP of the ankle joint Left ankle: Good ankle dorsiflexion and plantar flexion. No swelling. No TTP of the ankle joint Feet Right foot: Negative squeeze test Left foot: Negative squeeze test Tender points? No tenderness to palpation of the bilateral trapezius, supraspinatus, anterior costochondral junctions, bilateral suboccipital muscle insertions SKIN Tape rash noted in elbow crease of left arm Vital Signs: Last Vital Signs Pulse 84 06/29/25 10:57 BP 162/100 H 06/29/25 10:57 Pulse Ox 96 06/29/25 10:57 Oxygen Delivery Method Room Air 06/29/25 10:57 BMI result Body Mass Index 40.5 Results Reviewed Results Reviewed: Laboratory Tests 10/25/24 04/04/25 06/14/25 12:41 14:05 11:25 WBC 4.8 RBC 4.50 Hgb 14.2 Hct 41.2 Plt Count 157 L Sodium 140 Potassium 3.6 Chloride 107 Carbon Dioxide 26 BUN 12 Creatinine 0.68 AST 29 ALT 27 C-Reactive Protein 1.14 H 0.65 H Immunology labs 08/01/19 06/02/24 12:00 13:55 Rheumatoid Factor 604.5 H Cycl Citrul Peptide IgG >250 H HARSHA Screen POSITIVE A HARSHA Titer 1:160 H Infectious serologies 10/25/24 12:41 Hepatitis A IgM Ab Nonreactive Hep Bs Antigen Negative Hep Bs Antibody NONREACTIVE Hep B Core Total Ab Nonreactive Hepatitis C Ab (EIA) Nonreactive TB Test (T-Spot) Com Negative Assessment & Plan Assessment & Plan (1) Seropositive rheumatoid arthritis: Comment: ++RF+++CCP deforming dx in her 40s Humira:08/29 - 03/30 -active disease on exam Enbrel:04/29-08/30 - active disease on exam Xeljanz:08/30-12/29- active disease on exam Kevzara: 01/2021- stopped due to rash Orencia: 01/2021 - present effective MTX in the past - transaminitis Code(s): M05.9 - Rheumatoid arthritis with rheumatoid factor, unspecified Category: Medical Plan: #Seropositive RA Patient is a 65-year-old female with seropositive rheumatoid arthritis here today for follow up. Low disease activity. Continue abatacept. Back and neck pain from her degenerative disease. Failed steroid injections with pain management. Refer to Physical therapy Plan - Orencia 125mg SC weekly - Nabumetone 750mg bid for neck pain, continue PT - RTC 6 months - Labs before visit: CBC, CMP, ESR, CRP (2) On abatacept therapy: Code(s): Z79.899 - Other [place] [facility] (current[facility] drug therapy Plan: #Long-term Use of Abatacept Discussed with the patient the benefits and risks of Abatacept for the management of the rheumatic condition Benefits include reduce pain, maintenance of remission and reduction of flares as well as ?progression of the disease Risks include injection sites/infusion reactions, serious infections (such as bacterial infections, opportunistic infections), malignancy Recommended rotating injection sites, and holding medication during and for up to 1 week after resolution of a febrile illness or open skin wound Plan I spent 33 minutes reviewing the record and labs, taking a history, examining the patient, discussing the treatment plan, ordering diagnostic work up and documenting in the medical record Orders: Orders Comprehensive Met. Panel 6 Months Z79.899 - Other [place] [facility] (current) drug therapy C Reactive Protein 6 Months Z79.89 - Other [place] [facility] (current) drug therapy Erythrocyte Sedimentation Rate 6 Months Z79. - Other [place] [facility] (current) drug therapy T Spot TB 6 Months Z79. - Other [place] [facility] (current) drug therapy Complete Blood Count Auto Diff 6 Months Z79. - Other terminal clerk (current) drug therapy Hepatitis B,C Profile 6 Months Z79. - Other [place] [facility] (current) drug therapy Medications: Refilled nabumetone 750 mg PO BID 60 tabs 6RF 30 days Orencia ClickJect (abatacept) 125 mg subcut QWEEK 4 mL 5RF NS M05.9 - Rheumatoid arthritis with rheumatoid factor, unspecified Coding Level of Care Code Est Pt Level 4 (33895) Complex EM visit Add On G2211 Diagnoses Seropositive rheumatoid arthritis M05.9 On abatacept therapy Z
[2025-06-29 10:57] VITALS: BP 162/100; PULSE 84; O2SAT 96; BMI 40.5
== END 2025-06-29 11:47 | disposition home or self-care (01) ==
LOC: HO.RHES 10:45
PROVIDERS: PCP Internal Medicine; Visit Provider Student in an Organized Health Care Education/Training Program
DX: M05.9 Rheumatoid arthritis with rheumatoid factor, unspecified (principal); Z79.899 Other long term (current) drug therapy
CPT/HCPCS: 99214; G2211

== ENCOUNTER → 2025-06-29 10:45 | Outpatient (BNVA) | payer MEDICARE, MEDICAID, SELFPAY | PROVIDERS: PCP Internal Medicine; Visit Provider Student in an Organized Health Care Education/Training Program | DX: M05.9 Rheumatoid arthritis with rheumatoid factor, unspecified (principal); Z79.899 Other long term (current) drug therapy | CPT/HCPCS: 99212 ==

== ENCOUNTER 2025-07-06 09:16 | Outpatient (REF) | payer MEDICARE, MEDICAID, SELFPAY ==
--- NOTE | ~2025-07-06 | XR_ITS ---
EXAMINATION: XR CERVICAL SPINE CLINICAL INFORMATION: NECK PAIN, RA COMPARISON: January 07, 2021. TECHNIQUE: AP, lateral, atlantoodontoid views. FINDINGS: Craniocervical junction is intact. Endplate sclerosis and small marginal osteophyte formation with decreased intervertebral disc height at C5-6 and C6-7 levels. 2 mm retrolisthesis C5-6. No lytic or blastic lesions. No acute cortical disruption. XR/XR cervical spine 4V IMPRESSION: Cervical spondylosis C5-6 and C6-7 with a grade 1 retrolisthesis at C5-6. Electronically signed by: Aubrey Duran MD 07/06/2025 09:49 AM EDT
--- OUTSIDE RECORDS SUMMARY | 2025-07-06 10:06 | XMS_ITS | Patient Health Record ---
Author Organization [facility] [address] [place] [address] Care Team Providers Care Commercial Administrator Name Role Phone NADINE LERNERROBBIEEnmanuel Primary Care Provide r [phone] SE, CSI BQTAS SE Unavailable [phone] JOLYNN SMALL Unavailable [place] Unavailable [phone] Allergies Allergen (clinical drug ingredient) Drug/Non Drug [...] clinical data. Col. Tabitha. Med. P.R. ORDER [id number] PERFORMED AT: Negative test results do not rule out other non-influenza viral infections Pat. No.: [id number] [facility] [place] [facility] [place] Positive test results do not identify specific influenza A virus subtypes Paid 5 Cents [address] [facility] [address] [place] [address] Individuals who recieved nasally influenza A vaccine may have positive Exp: 12/08/2024 TERRENCE, EVANGELISTA [address] test results for up to three days after vaccination. Num: [id number] DIRECTOR: JAIME SARAVIA LICENSE.: [id number] CLIA: [id number] INFLUENZA A ANTIGEN POSITIVE NEGATIVE A INFLUENZA B ANTIGEN NEGATIVE NEGATIVE METHOD: STATUS COVID-19/FLU A&B COVID-19 ANTIGEN Reviewed date:09/29/2024 02:13:34 PM Interpretation: Performing Lab: Notes/Report: Col. Tabitha. Med. P.R. ORDER [id number] PERFORMED AT: -- Positive results indicate the presence of COVID-19 antigen, but clinical Pat. No.: [id number] [facility] [place] [facility] [place] correlation with patient history and other diagnostic information is Paid 5 Cents [address] GR[facility] [address] necessary to determine infection status. Positive results do not rule out Exp: 12/08/2024 [place] [address] bacterial infection or co-infection with other viruses and do not Num: [id number] differentiate between SARS-CoV and SARS-CoV-2. DIRECTOR: JAIME SARAVIA -- Negative results, from patients with symptom onset beyond seven days, LICENSE.: [id number] CLIA: [id number] should be treated as presumptive and confirmation [...] Performing Lab: Notes/Report: See Below For Report [id number].Report Text See Below For Report CBC + DIFF Reviewed date:12/28/2024 02:51:15 PM Interpretation: Performing Lab: Notes/Report: CBC Col. Tabitha. Med. P.R. ORDER [id number] PERFORMED AT: Pat. No.: [id number] [facility] [place] [facility] [place] Paid 5 Cents [address] Exp: 01/08/2025 EVANGELISTA OCAMPO [address] Num: [id number] DIRECTOR: JAIME SARAVIA LICENSE.: [id number] CLIA: [id number] WHITE BLOOD COUNT 7.0 4.8-10.8 X10 RED [...] sample is Col. Tabitha. Med. P.R. ORDER [id number] PERFORMED AT: below the detection limit of the test. Pat. No.: [id number] [facility] Test results must be evaluated in conjunction with other clinical data. Paid 5 Cents GAL[address]A [facility] [address] Negative test results do not rule out other non-influenza viral infections Exp: 01/08/2025 EVANGELISTA OCAMPO [address] Positive test results do not identify specific influenza A virus subtypes Num: [id number] Individuals who recieved nasally influenza A vaccine may have positive DIRECTOR: JAIME SARAVIA test results for up to three days after vaccination. LICENSE.: [id number] CLIA: [id number] INFLUENZA A ANTIGEN NEGATIVE NEGATIVE INFLUENZA B ANTIGEN NEGATIVE NEGATIVE METHOD: STATUS COVID-19/FLU A&B COVID-19 ANTIGEN Reviewed date:12/28/2024 02:51:15 PM Interpretation: Performing Lab: Notes/Report: Col. Tabitha. Med. P.R. ORDER [id number] PERFORMED AT: -- Positive results indicate the presence of COVID-19 antigen, but clinical Pat. No.: [id number] [facility] [place] [facility] [place] correlation with patient history and other diagnostic information is Paid 5 Cents CALEROEnmanuel [facility] [address] necessary to determine infection status. Positive results do not rule out Exp: 01/08/20[place] [address] bacterial infection or co-infection with other viruses and do not Num: [id number] differentiate between SARS-CoV and SARS-CoV-2. DIRECTOR: JAIME SARAVIA -- Negative results, from patients with symptom onset beyond seven days, LICENSE.: [id number] CLIA: [id number] should be treated as presumptive and confirmation [...] Notes/Report: See Below For Report Chest PA: [id number].Report Text See Below For Report Reason For [...] needed Orally Every 6 hours 09/29/2024 Unknown Dofkhhtd-Hqhxrbpmn-PN 1 % Solution 4 drops into affected [...] 14 alicea No Simmons viajado fuera de [place] o simmons estado en contacto con alguien que haya estado fuera de [place] en los pasados 14 alicea No Se [...] de maltrato No ..Viaje reciente fuera de [place] <2 meses No Transfusion/inmunisaciones Siguiente ..Transfusiones de [...] Section Notes: TAMARA NOBLES RN. BSN Lic. [id number], SHARDA M 09/29/2024 11:15:44 AM > Problems Problem Type SNOMED Code ICD Code Onset Dates Problem Status W/U Status Risk Notes Problem Essential hypertension (69741342) Essential (primary) hypertension (I10) Active confirmed Essential (primary) hypertension Problem Chronic pain (50610808) Other chronic pain (G89.29) Active confirmed Problem Postmenopausal bleeding (55276127) Postmenopausal bleeding (N95.0) Active confirmed Problem Hyperglycemia due to type 2 diabetes mellitus (512697861438056) Controlled type 2 diabetes mellitus with hyperglycemia, without long-term current use of insulin (E11.65) Active confirmed Problem Acute severe exacerbation of mild persistent asthma (disorder) (780197419) Mild persistent asthma with acute exacerbation (J45.31) Active confirmed Problem Rheumatoid arthritis (02858009) Rheumatoid arthritis involving multiple sites with positive rheumatoid factor (M05.79) Active confirmed Problem Body mass index 30.00 to 34.99 (807705904544992) Body mass index (BMI) of 33.0 to 33.9 in adult (Z68.33) Active confirmed Problem Type II diabetes mellitus without complication (564518726) Controlled diabetes mellitus (E11.9) Active confirmed Problem Rheumatoid arthritis (61854061) Rheumatoid arthritis involving multiple sites, unspecified rheumatoid factor presence (M06.9) Active confirmed Problem Diabetes mellitus type 2 (05752283) Diabetes mellitus type 2, uncontrolled (E11.65) Active confirmed Problem Morbid obesity (397941561) Morbid obesity (E66.01) Active confirmed Problem Mild intermittent asthma (904078452) Asthma, intermittent, uncomplicated (J45.20) Active confirmed Problem Body mass index 40+ - morbidly obese (257263411) BMI 40.0-44.9, adult (Z68.41) Active confirmed Problem Herpes simplex labialis (0262146) 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 GROUP EXERCISE INSTRUCTOR Lic. [id number], GENE 12/28/2024 02:19:43 PM >Paciente no refiere dolor al momento de renato. Temperature 37.0 C 12/28/2024 CÉSAR BARBA. GROUP EXERCISE INSTRUCTOR Lic. [id number], GENE 12/28/2024 02:19:43 PM >Paciente no refiere dolor al momento de renato. Respiratory Rate 19 /min 12/28/2024 CÉSAR BARBA . GROUP EXERCISE INSTRUCTOR Lic. [id number], GENE 12/28/2024 02:19:43 PM >Paciente no refiere dolor al momento de renato. Height-cm 154.94 cm 12/28/2024 CÉSAR BARBA. GROUP EXERCISE INSTRUCTOR Lic. [id number], GENE 12/28/2024 02:19:43 PM >Paciente no refiere dolor al momento de renato. Blood pressure diastolic 73 mm Hg 12/28/2024 BHARTI BARBA. GROUP EXERCISE INSTRUCTOR Lic. [id number], GENE 12/28/2024 02:19:43 PM >Paciente no refiere dolor al momento de renato. Oximetry 98 % 12/28/2024 CÉSAR BARBA. GROUP EXERCISE INSTRUCTOR Lic. [id number], GENE 12/28/2024 02:19:43 PM >Paciente no refiere dolor al momento de renato. Weight-kg 95.25 kg 12/28/2024 CÉSAR BARBA. GROUP EXERCISE INSTRUCTOR Lic. [id number], GENE 12/28/2024 02:19:43 PM >Paciente no refiere dolor al momento de renato. Height 61 in 12/28/2024 CÉSAR BARBA. GROUP EXERCISE INSTRUCTOR Lic. [id number], GENE 12/28/2024 02:19:43 PM >Paciente no refiere dolor al momento de renato. Blood pressure systolic 155 mm Hg 12/28/2024 EDWARD BARBA. GROUP EXERCISE INSTRUCTOR Lic. [id number], GENE 12/28/2024 02:19:43 PM >Paciente no refiere dolor al momento de renato. Weight 210 lbs 12/28/2024 CÉSAR BARBA. GROUP EXERCISE INSTRUCTOR Lic. [id number], GENE 12/28/2024 02:19:43 PM >Paciente no refiere dolor al momento de renato. BMI 39.67 kg/m2 12/28/2024 CÉSAR BARBA. GROUP EXERCISE INSTRUCTOR Lic. [id number], GENE 12/28/2024 02:19:43 PM >Paciente no refiere dolor al momento de renato. Encounters Encounter Location Date Provider Diagnosis [facility] [address] [facility], [place] [id number] 12/28/2024 PACO HAWLEY Cough R05.9 ; Low back pain M54.50 and Asthma exacerbation J45.901 [facility] [address] [facility] [facility] [place] [id number] 09/29/2024 JOLYNN MEZA FRANCO URTI (acute upper respiratory infection) J06.9 ; Influenza A J10.1 and Acute cough R05.1 Assessments Encounter Date Diagnosis (ICD Code) Assessment Notes Treatment Notes Treatment Clinical Notes Section Notes 12/28/2024 Cough (ICD-10 - R05.9) 1) TUSSIN 10 ML PO 2) [id number] MG IV 3) SOLUMEDROL 125 M GIV 4) ALBUTEROL 0.083 + ATROVENT 0.02 BY PN PACO HERNANDEZ 12/28/2024 12:50:51 PM > CÉSAR BARBA. GROUP EXERCISE INSTRUCTOR Lic. [id number], GENE 12/28/2024 12:57:44 PM > Moreno tomjaelyn. CÉSAR BARBA. GROUP EXERCISE INSTRUCTOR Lic. [id number], GENE 12/28/2024 12:57:44 PM > CÉSAR BARBA. GROUP EXERCISE INSTRUCTOR Lic. [id number], GENE 12/28/2024 01:10:58 PM > Se recibe [...] 0.083% + Atrovent 0.02 10/11. CÉSAR BARBA. GROUP EXERCISE INSTRUCTOR Lic. [id number], GENE 12/28/2024 01:10:58 PM > CÉSAR BARBA. GROUP EXERCISE INSTRUCTOR Lic. [id number], GENE 12/28/2024 02:10:54 PM > Paciente es [...] 0 al momento del renato. CÉSAR BARBA. GROUP EXERCISE INSTRUCTOR Lic. [id number], GENE 12/28/2024 02:10:55 PM > 12/28/2024 Low back pain (ICD-10 - M54.50) 09/29/2024 Influenza A (ICD-10 - J10.1) 09/29/2024 URTI (acute upper respiratory infection) (ICD-10 - J06.9) Tx: 1) Toradol 60 mg IM x1 2) Benadryl 25 mg PO x1 3) Guaifenesin DM 10 ml PO x1 MEZA FRANCO, JOLYNN 09/29/2024 01:24:37 PM > 09/29/2024 Acute cough (ICD-10 - R05.1) 12/28/2024 Asthma exacerbation (ICD-10 - J45.901) 09/29/2024 Other DYLAN ALVAREZ RN, BSN LIC. [id number], NATHANIEL M 09/29/2024 01:25:28 PM > Se [...] refiere entender. DYLAN ALVAREZ RN, BSN LIC. [id number], [facility] 09/29/2024 01:25:29 PM > MIKIE SAM RN BSN, Lic. [id number], [place] 09/29/2024 02:00:01 PM > Se recibe llamada del laboratorio de la [facility]. Santi Barillas reportando influenza A positivo; se le notifica al Dr. Meza. MIKIE SAM GROUP EXERCISE INSTRUCTOR, Lic. [id number], [place] 09/29/2024 02:00:02 PM > DYLAN ALVAREZ RN, BSN LIC. [id number], [facility] 09/29/2024 02:44:16 PM > Paciente [...] del renato. DYLAN ALVAREZ RN, BSN LIC. [id number], [facility] 09/29/2024 02:44:27 PM > Plan [...] Insured Coverage Start Date Coverage End Date [address] [id number] Diaz Self - patient is the insured 4 5 Medical (General) History Medical History History ICD Code ARTRITIS REUMATOIDEA DIABETICA ASMA RENATO PRESION Surgical History Surgery Date(Month/Year) cholecystectomy
== END 2025-07-06 09:17 | disposition home or self-care (01) ==
LOC: HO.XRAY 09:16
PROVIDERS: PCP Internal Medicine; Visit Provider Internal Medicine
DX: M54.2 Cervicalgia (principal); M06.9 Rheumatoid arthritis, unspecified
CPT/HCPCS: 72050

== ENCOUNTER → 2025-07-06 09:22 | Outpatient (BNV) | payer MEDICARE, MEDICAID, SELFPAY | PROVIDERS: PCP Internal Medicine; Visit Provider Radiology Diagnostic Radiology | DX: M47.812 Spondylosis without myelopathy or radiculopathy, cervical region (principal) | CPT/HCPCS: 72050 ==

== ENCOUNTER 2025-07-13 10:11 | Outpatient (AMB) | payer MEDICARE, MEDICAID, SELFPAY ==
--- NOTE | 2025-07-13 10:15 | A.OFFVIS_ITS ---
Vital Signs 07/13/25 10:20 Height 5 ft 1 in Weight 216 lb 14.958 oz BMI 41.0 BP 160/100 H Blood Pressure Location Lt brachial Position Sitting Pulse 86 Pulse Source Pulse Oximeter Pulse Oximetry (%) 96 Oxygen Delivery Method Room Air Intake Visit Reasons: f/u RA Intake Note: Patient presents for RA follow up. Terrazzo Installer Required: Yes Terrazzo Installer Language: Medical Record Technician Services: Terrazzo Installer Present Terrazzo Installer Name: Rafal [id number] Information Interpreted: non-clinical & clinical Allergies cyclobenzaprine (From Flexeril) Allergy (Intermediate, Verified 07/13/25 10:20) Dizziness orphenadrine (From Norflex) Allergy (Intermediate, Verified 07/13/25 10:20) Dizziness sarilumab (From Kevzara) Allergy (Intermediate, Verified 07/13/25 10:20) Rash Medication List - Last Reconciled 07/13/25 by Vicky Marcial MD acetaminophen 1,000 mg (2 x 500 mg) PO Q8H PRN albuterol sulfate 90 mcg/actuation 2 inhalations PO Q4H PRN amlodipine 10 mg PO DAILY atorvastatin 10 mg PO DAILY bisacodyl 10 mg (2 x 5 mg) PO .daily 90 days blood pressure monitor As directed blood pressure test kit-large As directed blood sugar diagnostic (FreeStyle Lite Strips) Use 1 test strip once a day blood-glucose meter (FreeStyle Lite Meter kit) E11.9 ONCE A DAY cholestyramine (Cholestyramine Light) 4 grams PO BID PRN 30 days [cock up splint wear on the right wrist at night ] dicyclomine 20 mg PO TID PRN 30 days docusate sodium (Col-Rite) 100 mg PO BID dulaglutide (Trulicity) 1.5 mg (0.5 mL) subcut QWEEK 4 weeks fluticasone propionate 110 mcg/actuation 2 puffs inhalation BID 30 days gabapentin 300 mg PO TID 30 days ipratropium-albuterol 0.5 mg-3 mg(2.5 mg base)/3 mL 3 mL inhalation Q6H PRN lancets (FreeStyle Lancets) Use 1 lancet once a day as needed lidocaine 5% 1 patch topical DAILY losartan 100 mg PO DAILY losartan 100 mg PO DAILY 30 days meclizine 50 mg PO DAILY PRN omeprazole 20 mg PO BID 90 days ondansetron 4 mg PO Q6H PRN Orencia ClickJect (abatacept) 125 mg subcut QWEEK NS pioglitazone 30 mg PO DAILY 90 days polyethylene glycol 3350 (Miralax) 17 grams PO DAILY salmeterol (Serevent Diskus) 1 inh inhalation BID 30 days sennosides (senna) 8.6 mg PO BEDTIME PRN 7 days sucralfate 1 g PO TID PRN tramadol 50 mg PO Q8H PRN HPI Comments Details: Patient is a 65-year-old female with asthma, hypertension complicated by a lacunar infarct, diabetes, hyperlipidemia, cervical disc herniation and lumbar spondylosis with radiculopathy, nonalcoholic fatty liver disease and seropositive rheumatoid arthritis here today for follow up Interval History: Patient last seen 06/29/25 with me - On Orencia 125mg SC every week - Has not received Orencia for the past 2 weeks, ?insurance issues - In PT for her neck but does not feel it is helping much - Still c/o of neck and back pain - No complaints of hand pain - Nabumetone given for neck pain and to f/u with PT Today - On Orencia 125mg SC every week - Compliant with medications - Did not find the nabumetone helpful - Here today because the neck pain continues without relief Rheumatologic History: ++RF+++CCP deforming dx in her 40s Humira:08/29 - 03/30 -active disease on exam Enbrel:04/29-08/30 - active disease on exam Xeljanz:08/30-12/29- active disease on exam Kevzara: 01/2021- stopped due to rash Orencia: 01/2021 - present effective MTX in the past - transaminitis Current Rheumatology Medication(s): Abatacept 125mg every week Nabumetone 750mg bid PFSH Medical History Urinary tract infection Bronchitis Morbid obesity with BMI of 45.0-49.9, adult Sacroiliitis Rheumatic fever TIA (transient ischemic attack) Right-sided back pain History of COVID-19 Asthma exacerbation Hospital discharge follow-up Sacroiliitis Renal calculi Costovertebral angle tenderness Burning with urination Disc degeneration, lumbar Spondylosis of cervical spine Spondylosis of lumbar spine Pleuritic pain Restrictive lung disease Morbid obesity Asthma Dyslipidemia Essential hypertension Vaginal modesta Seropositive rheumatoid arthritis Rheumatoid arthritis Diabetes Surgical History History of cholecystectomy Hx of colonoscopy (09/01/19) History of surgery on wrist Family History Father Diabetes mellitus Myocardial infarction Hypertension CVD (cardiovascular disease) Mother Diabetes mellitus CVD (cardiovascular disease) Sister No problems noted. Son No problems noted. Son No problems noted. Son No problems noted. Daughter Thyroiditis Daughter No problems noted. Daughter No problems noted. Daughter No problems noted. Daughter No problems noted. Other Asthma exacerbation Social History Housing: Apartment Alcohol intake: never Patient Tobacco Use Status: Never used Tobacco e-Cigarette/Vaping Use: Never Used Second Hand Smoke Exposure: No service: No Current occupational status: disabled Sexual orientation: Straight/Heterosexual Gender identity: Female Cognitive needs: No Hearing needs: No Vision needs: No Female Reproductive History Menstrual Age of Menarche: 11 Date of menopause: 01/22/10 Review of Systems Const Details: Review of Systems Constitutional: Denies fever, chills, weight loss ENT: Denies vision changes, eye pain or eye redness, dental caries, dry mouth GI: Denies nausea, vomiting, diarrhea, abdominal pain, change in BM Pulm: Denies SOB, RIBEIRO, hemoptysis, wheezing Cards: Denies chest pain, palpitations Skin: Denies Raynaud's, rash, nail changes, photosensitivity, OTR OWNER OPERATOR: Denies headaches, weakness, paresthesias, recurrent falls MSK: as per HPI All other systems reviewed and are unremarkable except noted above Physical Exam Exam Exam: Exam deferred today Vital Signs: Last Vital Signs Pulse 86 07/13/25 10:20 BP 160/100 H 07/13/25 10:20 Pulse Ox 96 07/13/25 10:20 Oxygen Delivery Method Room Air 07/13/25 10:20 BMI result Body Mass Index 41.0 Results Reviewed Results Reviewed: Laboratory Tests 10/25/24 04/04/25 06/14/25 12:41 14:05 11:25 WBC 4.8 RBC 4.50 Hgb 14.2 Hct 41.2 Plt Count 157 L Sodium 140 Potassium 3.6 Chloride 107 Carbon Dioxide 26 BUN 12 Creatinine 0.68 AST 29 ALT 27 C-Reactive Protein 1.14 H 0.65 H Immunology labs 08/01/19 06/02/24 12:00 13:55 Rheumatoid Factor 604.5 H Cycl Citrul Peptide IgG >250 H HARSHA Screen POSITIVE A HARSHA Titer 1:160 H Infectious serologies 10/25/24 12:41 Hepatitis A IgM Ab Nonreactive Hep Bs Antigen Negative Hep Bs Antibody NONREACTIVE Hep B Core Total Ab Nonreactive Hepatitis C Ab (EIA) Nonreactive TB Test (T-Spot) Com Negative XR C spine 06/2025 FINDINGS: Craniocervical junction is intact. Endplate sclerosis and small marginal osteophyte formation with decreased intervertebral disc height at C5-6 and C6-7 levels. 2 mm retrolisthesis C5-6. No lytic or blastic lesions. No acute cortical disruption. IMPRESSION: Cervical spondylosis C5-6 and C6-7 with a grade 1 retrolisthesis at C5-6. Assessment & Plan Assessment & Plan (1) Neck Pain: Code(s): M54.2 - Cervicalgia Plan: #Neck pain Patient is a 65-year-old female with seropositive rheumatoid arthritis here today for a follow up. Interventions including physical therapy and nabumetone have not improved her neck pain. C-spine x-rays done by her primary 06/2025 confirmed degenerative disease of the C-spine. We will refer her to pain management for further interventions. Lidocaine patches requested Plan - Pain management referral - Lidocaine 5% patches - RTC 6 months for regular RA follow up - DEXA before visit - Labs before visit: CBC, CMP, ESR, CRP Plan I spent 20 minutes reviewing the record and labs, taking a history, discussing the treatment plan, ordering diagnostic work up and documenting in the medical record Orders: Referrals Pain Management Referral M54.2 - Cervicalgia Medications: New lidocaine 5% leave on most painful area for up to 12 hrs 1 patch topical DAILY 30 ea 5RF M54.2 - Cervicalgia Discontinued nabumetone Discontinued Reason: Doctor's Order 750 mg PO BID 30 days 60 tabs 6RF Coding Level of Care Code Est Pt Level 3 (30833) Diagnoses Neck Pain M54.2
[2025-07-13 10:20] VITALS: BP 160/100; PULSE 86; O2SAT 96; BMI 41.0
--- OUTSIDE RECORDS SUMMARY | 2025-07-13 11:03 | XMS_ITS | Patient Health Record ---
Author Organization [facility] Address [facility] [place] [address] Care Team Providers Care Solderer Electronic Name Role Phone ASAD LERNER Primary Care Provide r [phone] SE, CSI BQTAS SE Unavailable [phone] JOLYNN SMALL Unavailable [phone] PACO DE LA VEGA Unavailable [phone] Allergies Allergen (clinical drug ingredient) Drug/Non Drug Allergy documented on EMR Reaction Allergy Type Onset Date Status Flexeril dizziness Drug Allergy Active Norflex dizziness Drug Allergy Active Results Component Value Reference Range Flag Notes CHEST-AP ONLY *1 VIEW Reviewed date:01/01/2025 08:48:19 AM Interpretation: Performing Lab: Notes/Report: See Below For Report Chest PA: [id number].Report Text See Below For Report INFLUENZA AG A & B Reviewed date:12/28/2024 02:51:15 PM Interpretation: Performing Lab: Notes/Report: A negative test result may occur if the level of antigen in a sample is Col. Tabitha. Med. P.R. ORDER [id number] PERFORMED AT: below the detection limit of the test. Pat. No.: [id number] [facility] [place] Test results must be evaluated in conjunction with other clinical data. Paid 5 Cents [address] Negative test results do not rule out other non-influenza viral infections Exp: 01/08/2025 [place] [address] Positive test results do not identify specific influenza A virus subtypes Num: [id number] Individuals who recieved nasally influenza A vaccine may have positive DIRECTOR: JAIME SARAVIA test results for up to three days after vaccination. LICENSE.: [id number] CLIA: [id number] INFLUENZA A ANTIGEN NEGATIVE NEGATIVE INFLUENZA B ANTIGEN NEGATIVE NEGATIVE METHOD: STATUS COVID-19/FLU A&B COVID-19 ANTIGEN Reviewed date:12/28/2024 02:51:15 PM Interpretation: Performing Lab: Notes/Report: Col. Tabitha. Med. P.R. ORDER [id number] PERFORMED AT: -- Positive results indicate the presence of COVID-19 antigen, but clinical Pat. No.: [id number] [facility] [place] correlation with patient history and other diagnostic information is Paid 5 Cents [address] necessary to determine infection status. Positive results do not rule out Exp: 01/08/2025 [place] [address] bacterial infection or co-infection with other viruses and do not Num: [id number] differentiate between SARS-CoV and SARS-CoV-2. DIRECTOR: JAIME SARAVIA -- Negative results, from patients with symptom onset beyond seven days, LICENSE.: [id number] CLIA: [id number] should be treated as presumptive and confirmation [...] Notes/Report: CBC Col. Tabitha. Med. P.R. ORDER [id number] PERFORMED AT: Pat. No.: [id number] [facility] [place] Paid 5 Cents [address] Exp: 01/08/2025 [place] [address] Num: [id number] DIRECTOR: JAIME SARAVIA LICENSE.: [id number] CLIA: [id number] WHITE BLOOD COUNT 7.0 4.8-10.8 X10 RED [...] clinical data. Col. Tabitha. Med. P.R. ORDER [id number] PERFORMED AT: Negative test results do not rule out other non-influenza viral infections Pat. No.: [id number] [facility] [place] Positive test results do not identify specific influenza A virus subtypes Paid 5 Didis GALILEA [address] Individuals who recieved nasally influenza A vaccine may have positive Exp: 12/08/2024 [place] [address] test results for up to three days after vaccination. Num: [id number] DIRECTOR: JAIME SARAVIA LICENSE.: [id number] CLIA: [id number] INFLUENZA A ANTIGEN POSITIVE NEGATIVE A INFLUENZA B ANTIGEN NEGATIVE NEGATIVE METHOD: STATUS COVID-19/FLU A&B COVID-19 ANTIGEN Reviewed date:09/29/2024 02:13:34 PM Interpretation: Performing Lab: Notes/Report: Col. Tabitha. Med. P.R. ORDER [id number] PERFORMED AT: -- Positive results indicate the presence of COVID-19 antigen, but clinical Pat. No.: [id number] [facility] [place] correlation with patient history and other diagnostic information is Paid 5 Cents [address] necessary to determine infection status. Positive results do not rule out Exp: 12/08/2024 [place] [address] bacterial infection or co-infection with other viruses and do not Num: [id number] differentiate between SARS-CoV and SARS-CoV-2. DIRECTOR: JAIME SARAVIA -- Negative results, from patients with symptom onset beyond seven days, LICENSE.: [id number] CLIA: [id number] should be treated as presumptive and confirmation [...] Performing Lab: Notes/Report: See Below For Report [id number].Report Text See Below For Report Reason For [...] needed Orally Every 6 hours 09/29/2024 Unknown Twpdspxx-Byjgirvop-VW 1 % Solution 4 drops into affected [...] 14 alicea No Simmons viajado fuera de NH o simmons estado en contacto con alguien que haya estado fuera de NH en los pasados 14 alicea No Se [...] de maltrato No ..Viaje reciente fuera de NH <2 meses No Transfusion/inmunisaciones Siguiente ..Transfusiones de [...] Section Notes: TAMARA NOBLES RN. BSN Lic. [id number], SHARDA M 09/29/2024 11:15:44 AM > Problems Problem Type SNOMED Code ICD Code Onset Dates Problem Status W/U Status Risk Notes Problem Essential hypertension (51890824) Essential (primary) hypertension (I10) Active confirmed Essential (primary) hypertension Problem Chronic pain (77328831) Other chronic pain (G89.29) Active confirmed Problem Postmenopausal bleeding (58071487) Postmenopausal bleeding (N95.0) Active confirmed Problem Hyperglycemia due to type 2 diabetes mellitus (834113456984008) Controlled type 2 diabetes mellitus with hyperglycemia, without long-term current use of insulin (E11.65) Active confirmed Problem Acute severe exacerbation of mild persistent asthma (disorder) (297054101) Mild persistent asthma with acute exacerbation (J45.31) Active confirmed Problem Rheumatoid arthritis (83130658) Rheumatoid arthritis involving multiple sites with positive rheumatoid factor (M05.79) Active confirmed Problem Body mass index 30.00 to 34.99 (942511944051752) Body mass index (BMI) of 33.0 to 33.9 in adult (Z68.33) Active confirmed Problem Type II diabetes mellitus without complication (813952190) Controlled diabetes mellitus (E11.9) Active confirmed Problem Rheumatoid arthritis (54918414) Rheumatoid arthritis involving multiple sites, unspecified rheumatoid factor presence (M06.9) Active confirmed Problem Diabetes mellitus type 2 (78657845) Diabetes mellitus type 2, uncontrolled (E11.65) Active confirmed Problem Morbid obesity (654738460) Morbid obesity (E66.01) Active confirmed Problem Mild intermittent asthma (109665683) Asthma, intermittent, uncomplicated (J45.20) Active confirmed Problem Body mass index 40+ - morbidly obese (364457952) BMI 40.0-44.9, adult (Z68.41) Active confirmed Problem Herpes simplex labialis (7533658) 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 INCLUSION SPECIALIST Lic. [id number], GENE 12/28/2024 02:19:43 PM >Paciente no refiere dolor al momento de renato. Temperature 37.0 C 12/28/2024 CÉSAR BARBA. INCLUSION SPECIALIST Lic. [id number], GENE 12/28/2024 02:19:43 PM >Paciente no refiere dolor al momento de renato. Respiratory Rate 19 /min 12/28/2024 CÉSAR BARBA . INCLUSION SPECIALIST Lic. [id number], GENE 12/28/2024 02:19:43 PM >Paciente no refiere dolor al momento de renato. Oximetry 98 % 12/28/2024 CÉSAR BARBA. INCLUSION SPECIALIST Lic. [id number], GENE 12/28/2024 02:19:43 PM >Paciente no refiere dolor al momento de renato. Height-cm 154.94 cm 12/28/2024 CÉSAR BARBA. INCLUSION SPECIALIST Lic. [id number], GENE 12/28/2024 02:19:43 PM >Paciente no refiere dolor al momento de renato. Blood pressure diastolic 73 mm Hg 12/28/2024 BHARTI BARBA. INCLUSION SPECIALIST Lic. [id number], GENE 12/28/2024 02:19:43 PM >Paciente no refiere dolor al momento de renato. Weight-kg 95.25 kg 12/28/2024 CÉSAR BARBA. INCLUSION SPECIALIST Lic. [id number], GENE 12/28/2024 02:19:43 PM >Paciente no refiere dolor al momento de renato. Height 61 in 12/28/2024 CÉSAR BARBA. INCLUSION SPECIALIST Lic. [id number], GENE 12/28/2024 02:19:43 PM >Paciente no refiere dolor al momento de renato. Blood pressure systolic 155 mm Hg 12/28/2024 EDWARD BARBA. INCLUSION SPECIALIST Lic. [id number], GENE 12/28/2024 02:19:43 PM >Paciente no refiere dolor al momento de renato. Weight 210 lbs 12/28/2024 CÉSAR BARBA. INCLUSION SPECIALIST Lic. [id number], GENE 12/28/2024 02:19:43 PM >Paciente no refiere dolor al momento de renato. BMI 39.67 kg/m2 12/28/2024 CÉSAR BARBA. INCLUSION SPECIALIST Lic. [id number], GENE 12/28/2024 02:19:43 PM >Paciente no refiere dolor al momento de renato. Encounters Encounter Location Date Provider Diagnosis [facility] [address] [place], [place] [id number] 09/29/2024 JOLYNN MEZA FRANCO URTI (acute upper respiratory infection) J06.9 ; Influenza A J10.1 and Acute cough R05.1 [facility] [address] [place], [place] [id number] 12/28/2024 PACO HAWLEY Cough R05.9 ; Low back pain M54.50 and Asthma exacerbation J45.901 Assessments Encounter Date Diagnosis (ICD Code) Assessment Notes Treatment Notes Treatment Clinical Notes Section Notes 12/28/2024 Cough (ICD-10 - R05.9) 1) TUSSIN 10 ML PO 2) [id number] MG IV 3) SOLUMEDROL 125 M GIV 4) ALBUTEROL 0.083 + ATROVENT 0.02 BY PN ONCE [place]O [place] 12/28/2024 12:50:51 PM > CÉSAR BARBA. INCLUSION SPECIALIST Lic. [id number], GENE 12/28/2024 12:57:44 PM > Orden tomada. CÉSAR BARBA. INCLUSION SPECIALIST Lic. [id number], GENE 12/28/2024 12:57:44 PM > CÉSAR BARBA. INCLUSION SPECIALIST Lic. [id number], GENE 12/28/2024 01:10:58 PM > Se recibe [...] 0.083% + Atrovent 0.02 10/11. CÉSAR BARBA. INCLUSION SPECIALIST Lic. [id number], GENE 12/28/2024 01:10:58 PM > CÉSAR BARBA. INCLUSION SPECIALIST Lic. [id number], GENE 12/28/2024 02:10:54 PM > Paciente es [...] 0 al momento del renato. CÉSAR BARBA. INCLUSION SPECIALIST Lic. [id number], GENE 12/28/2024 02:10:55 PM > 12/28/2024 Low [...] 09/29/2024 Other DYLAN ALVAREZ RN, BSN LIC. [id number], NATHANIEL M 09/29/2024 01:25:28 PM > Se [...] refiere entender. DYLAN ALVAREZ RN, BSN LIC. [id number], [facility] 09/29/2024 01:25:29 PM > MIKIE SAM RN BSN, Lic. [id number], [place] 09/29/2024 02:00:01 PM > Se recibe llamada del laboratorio de la [facility]. Santi Barillas reportando influenza A positivo; se le notifica al Dr. Meza. MIKIE ASM INCLUSION SPECIALIST, Lic. [id number], [place] 09/29/2024 02:00:02 PM > DYLAN ALVAREZ RN, BSN LIC. [id number], [facility] 09/29/2024 02:44:16 PM > Paciente es [...] del renato. DYLAN ALVAREZ RN, BSN LIC. [id number], [facility] 09/29/2024 02:44:27 PM > Plan Of [...] Insured Coverage Start Date Coverage End Date [address] [phone] [id number] Diaz Self - patient is the insured 4 5 Medical (General) History Medical History History ICD Code ARTRITIS REUMATOIDEA DIABETICA ASMA RENATO PRESION Surgical History Surgery Date(Month/Year) cholecystectomy
== END 2025-07-13 10:41 | disposition home or self-care (01) ==
LOC: HO.RHES 10:12
PROVIDERS: PCP Internal Medicine; Visit Provider Student in an Organized Health Care Education/Training Program
DX: M54.2 Cervicalgia (principal)
CPT/HCPCS: 99213

== ENCOUNTER → 2025-07-13 10:11 | Outpatient (BNVA) | payer MEDICARE, MEDICAID, SELFPAY | PROVIDERS: PCP Internal Medicine; Visit Provider Student in an Organized Health Care Education/Training Program | DX: M05.9 Rheumatoid arthritis with rheumatoid factor, unspecified (principal); M50.13 Cervical disc disorder with radiculopathy, cervicothoracic region; M47.816 Spondylosis without myelopathy or radiculopathy, lumbar region; Z79.899 Other long term (current) drug therapy | CPT/HCPCS: 99212 ==

== ENCOUNTER 2025-09-01 12:14 | Emergency (ER) | payer MEDICARE, MEDICAID, SELFPAY ==
[2025-09-01 12:22] VITALS: BP 165/74; PULSE 74; RESP 16; TEMP 36.6; O2SAT 98; BMI 40.2
--- NOTE | 2025-09-01 12:23 | ED_ITS ---
HPI - General Adult General Chief complaint: Skin/Abscess/Foreign Body Stated complaint: Allergic Reaction Time Seen by Provider: 09/01/25 12:21 Source: patient, family, RN notes reviewed and old records reviewed Mode of arrival: ambulatory Limitations: no limitations History of Present Illness ED Provider: Little HPI narrative: 65-year-old female presents for evaluation of an itchy rash under her left breast. Symptoms started 1 week ago. Denies any fevers, chills. She has no other complaints or concerns at this time Related Data Home Medications ?Medication ?Instructions ?Recorded ?Confirmed blood pressure test kit-large #1 ea 06/02/24 07/13/25 atorvastatin 10 mg tablet 10 mg PO DAILY 06/25/2501/02 Previous Rx's ?Medication ?Instructions ?Recorded albuterol sulfate 90 mcg/actuation 2 inh PO Q4H PRN sh ortness of 08/13/20 aerosol inhaler breath or wheezing #8.5 gram s docusate sodium 100 mg capsule 100 mg PO BID #30 caps 12/07/22 (Col-Rite) blood sugar diagnostic (FreeStyle #50 ea 02/10/23 Lite Strips) blood-glucose meter (FreeStyle #1 ea 02/10/23 Lite Meter kit) lancets 28 gauge (FreeStyle #100 ea 02/10/23 Lancets) cock up splint #1 ea 03/03/23 blood pressure monitor #1 ea 02/07/24 sennosides 8.6 mg tablet (senna) 8.6 mg PO BEDTIME PRN constipation 04/20/24 7 days #7 tabs meclizine 50 mg tablet 50 mg PO DAILY PRN motion si ckness 04/23/24 #14 tabs gabapentin 300 mg capsule 300 mg PO TID pain 30 days # 90 caps 07/06/24 fluticasone propionate 110 2 puff inhalation BID Asthm a/Cough 01/18/25 mcg/actuation HFA aerosol inhaler 30 days #12 grams ipratropium 0.5 mg-albuterol 3 mg 3 ml inhalation Q6H PRN wheezing 02/09/25 (2.5 mg base)/3 mL nebulization #180 mL soln dulaglutide 1.5 mg/0.5 mL 1.5 mg (0.5 mL) subcut QWEEK 4 03/06/25 subcutaneous pen injector weeks #2 mL (Trulicity) acetaminophen 500 mg capsule 1,000 mg (2 x 500 mg) PO Q8H PRN 03/13/25 fever or pain #14 caps tramadol 50 mg tablet 50 mg PO Q8H PRN pain #12 ta bs 03/13/25 bisacodyl 5 mg tablet,delayed 10 mg (2 x 5 mg) PO .orin ly 90 days 04/02/25 release #180 tabs polyethylene glycol 3350 17 17 g PO DAILY #238 grams 0 04/02/25 gram/dose oral powder (Miralax) ondansetron 4 mg disintegrating 4 mg PO Q6H PRN nausea and 04/04/25 tablet vomiting #10 tabs sucralfate 1 gram tablet 1 g PO TID PRN Upper abdomin al 04/04/25 pain #60 tabs cholestyramine 4 gram oral powder 4 g PO BID PRN diarr hea 30 days 04/12/25 (Cholestyramine Light) #210 grams losartan 100 mg tablet 100 mg PO DAILY hypertension 30 04/12/25 days #30 tabs pioglitazone 30 mg tablet 30 mg PO DAILY 90 days #90 t abs 04/12/25 dicyclomine 20 mg tablet 20 mg PO TID PRN abdominal p ain 30 05/07/25 days #90 tabs salmeterol 50 mcg/dose blister 1 inh inhalation BID 30 days #60 ea 05/08/25 powder for inhalation (Serevent Diskus) amlodipine 10 mg tablet 10 mg PO DAILY #90 tabs 02/02 losartan 100 mg tablet 100 mg PO DAILY #90 tabs 02/02 omeprazole 20 mg capsule,delayed 20 mg PO BID 90 days #180 caps 06/25/25 release Orencia ClickJect 125 mg/mL 125 mg subcut QWEEK #4 mL 06/29/25 subcutaneous auto-injector (abatacept) lidocaine 5 % topical patch 1 patch topical DAILY #30 ea 07/13/25 ketoconazole 2 % topical cream 1 appl topical BID 1 we ek #30 grams 09/01/25 Allergies Allergy/AdvReac Type Severity Reaction Status Date / Time cyclobenzaprine (From Allergy Intermediate Dizziness Verified 09/01/25 12:25 Flexeril) orphenadrine (From Norflex) Allergy Intermediate Dizziness Verified 09/01/25 12:25 sarilumab (From Kevzara) Allergy Intermediate Rash Verified 09/01/25 12:25 Review of Systems Constitutional: Constitutional: Denies chills and Denies fever(s) Cardiovascular: Cardiovascular: Denies chest pain Respiratory: Respiratory: Denies cough Musculoskeletal: Musculoskeletal: Denies back pain Integumentary/Breasts: Skin/Breast: Reports pruritus and Reports rash [facility] Past Medical History Medical History Urinary tract infection Bronchitis Morbid obesity with BMI of 45.0-49.9, adult Sacroiliitis Rheumatic fever TIA (transient ischemic attack) Right-sided back pain History of COVID-19 Asthma exacerbation Hospital discharge follow-up Sacroiliitis Renal calculi Costovertebral angle tenderness Burning with urination Disc degeneration, lumbar Spondylosis of cervical spine Spondylosis of lumbar spine Pleuritic pain Restrictive lung disease Morbid obesity Asthma Dyslipidemia Essential hypertension Vaginal modesta Seropositive rheumatoid arthritis Rheumatoid arthritis Diabetes Surgical History History of cholecystectomy Hx of colonoscopy (09/01/19) History of surgery on wrist Family History Family History Father Diabetes mellitus Myocardial infarction Hypertension CVD (cardiovascular disease) Mother Diabetes mellitus CVD (cardiovascular disease) Sister No problems noted. Son No problems noted. Son No problems noted. Son No problems noted. Daughter Thyroiditis Daughter No problems noted. Daughter No problems noted. Daughter No problems noted. Daughter No problems noted. Other Asthma exacerbation Social History Social History Housing: Apartment Alcohol intake: never Patient Tobacco Use Status: Never used Tobacco e-Cigarette/Vaping Use: Never Used Second Hand Smoke Exposure: No Advance Directives: No Advance Directives Information Provided: No service: No Current occupational status: disabled Sexual orientation: Straight/Heterosexual Gender identity: Female Cognitive needs: No Hearing needs: No Vision needs: No Physical Exam ED Vital Signs: Vital Signs - 24 hr 09/01/25 12:22 Temperature 97.9 F Pulse Rate 74 Respiratory Rate 16 Blood Pressure 165/74 H Pulse Oximetry 98 Oxygen Delivery Method Room Air BMI result Body Mass Index 40.2 Const General: healthy appearing, comfortable, no acute distress, alert and awake Nutritional Appearance: well nourished Orientation/consciousness: patient oriented x3 HENMT Head: Yes normocephalic and Yes atraumatic Eyes Eyelids: Yes eyelids normal Conjunctivae: conjunctivae normal Sclerae: sclerae normal Corneas: corneas normal Pupils: Equal, round and reactive pupils present EOM: EOMs intact bilaterally Neck Neck: Yes full ROM Resp Effort & Inspection: normal respiratory effort, able to speak in complete sentences and not labored Skin Other: the patient has an erythematous rash in his mostly macular under the left breast. There are no vesicles or raised lesions. No excoriations. General skin exam: elasticity normal Neuro General: patient oriented x3 Cranial nerves: Yes Equal, round and reactive pupils present and Yes Bilaterally intact EOM present Cognition (Neuro): normal cognition Extrem Other: Moving all extremities well without any obvious deformities Medical Decision Making Medical Decision Making MDM Narrative: 65-year-old female presents for evaluation of an itchy rash under her left breast. She has had the rash for a week and there are no vesicles or crusting lesions. I think this is much more classic for candidiasis itching and lack of blisters. We will treat with ketoconazole cream. I did discuss risks warning signs for shingles and when to return for alternative treatment Differential Diagnosis Differential Diagnoses: The differential diagnosis associated with the presentation includes tinea corporis Candidiasis Shingles Dermatitis Discharge Plan Discharge Clinical Impression: Tinea corporis Patient Disposition: Home, Self-Care Instructions: Skin Yeast Infection (ED) Additional Instructions: your rash is quite classic for a yeast infection. Apply the antifungal cream twice daily as prescribed for 1 week. Follow up with your primary doctor, return for new or worsening symptoms Prescriptions: New ketoconazole 2 % cream 1 appl topical BID 7 Days Qty: 30 0RF No Action albuterol sulfate 90 mcg/actuation HFA aerosol inhaler 2 inh PO Q4H PRN (Reason: shortness of breath or wheezing) Qty: 8.5 1RF (DME) FreeStyle Lite Strips Strip See Rx Instructions .ROUTE .MEDSUPPLY Qty: 50 11RF Rx Instructions: Use 1 test strip once a day (DME) blood-glucose meter [FreeStyle Lite Meter] Kit See Rx Instructions .ROUTE .MEDSUPPLY Qty: 1 0RF Rx Instructions: E11.9 ONCE A DAY (DME) lancets [FreeStyle Lancets] 28 gauge misc See Rx Instructions .ROUTE .MEDSUPPLY Qty: 100 11RF Rx Instructions: Use 1 lancet once a day as needed ([facility]) blood pressure monitor Kit See Rx Instructions .Route Qty: 1 0RF Rx Instructions: As directed ipratropium-albuterol 0.5 mg-3 mg(2.5 mg base)/3 mL solution for nebulization 3 ml inhalation Q6H PRN (Reason: wheezing) Qty: 180 0RF dicyclomine 20 mg tablet 20 mg PO TID PRN (Reason: abdominal pain) 30 Days Qty: 90 0RF docusate sodium [Col-Rite] 100 mg capsule 100 mg PO BID Qty: 30 0RF meclizine 50 mg tablet 50 mg PO DAILY PRN (Reason: motion sickness) Qty: 14 0RF acetaminophen 500 mg capsule 1,000 mg PO Q8H PRN (Reason: fever or pain) Qty: 14 0RF tramadol 50 mg tablet 50 mg PO Q8H PRN (Reason: pain) Qty: 12 0RF sucralfate 1 gram tablet 1 g PO TID PRN (Reason: Upper abdominal pain) Qty: 60 0RF ondansetron 4 mg tablet,disintegrating 4 mg PO Q6H PRN (Reason: nausea and vomiting) Qty: 10 0RF amlodipine 10 mg tablet 10 mg PO DAILY Qty: 90 0RF losartan 100 mg tablet 100 mg PO DAILY Qty: 90 0RF sennosides [senna] 8.6 mg tablet 8.6 mg PO BEDTIME PRN (Reason: constipation) 7 Days Qty: 7 0RF (DME) blood pressure test kit-large Kit See Rx Instructions .ROUTE .MEDSUPPLY Qty: 1 Rx Instructions: As directed Trulicity 1.5 mg/0.5 mL pen injector 1.5 mg subcut QWEEK 28 Days Qty: 2 5RF fluticasone propionate 110 mcg/actuation HFA aerosol inhaler 2 puff inhalation BID 30 Days Qty: 12 5RF Rx Instructions: administer with spacer lidocaine 5 % adhesive patch,medicated 1 patch topical DAILY Qty: 30 5RF Rx Instructions: leave on most painful area for up to 12 hrs Serevent Diskus 50 mcg/dose blister with device 1 inh inhalation BID 30 Days Qty: 60 5RF (DME) cock up splint See Rx Instructions .Route .MEDSUPPLY Qty: 1 0RF Rx Instructions: wear on the right wrist at night gabapentin 300 mg capsule 300 mg PO TID 30 Days Qty: 90 6RF albuterol sulfate 2.5 mg /3 mL (0.083 %) solution for nebulization 2.5 mg inhalation ONCE Qty: 3 0RF bisacodyl 5 mg tablet,delayed release (DR/EC) 10 mg PO .daily 90 Days Qty: 180 1RF polyethylene glycol 3350 [Miralax] 17 gram/dose powder 17 g PO DAILY Qty: 238 1RF Rx Instructions: hold for loose stools losartan 100 mg tablet 100 mg PO DAILY 30 Days Qty: 30 4RF pioglitazone 30 mg tablet 30 mg PO DAILY 90 Days Qty: 90 1RF Cholestyramine Light 4 gram powder 4 g PO BID PRN (Reason: diarrhea) 30 Days Qty: 210 0RF Rx Instructions: administer w/meal; avoid other meds within 1hr before or 4-6hr after dose atorvastatin 10 mg tablet 10 mg PO DAILY omeprazole 20 mg capsule,delayed release(DR/EC) 20 mg PO BID 90 Days Qty: 180 0RF Orencia ClickJect 125 mg/mL auto-injector 125 mg subcut QWEEK Qty: 4 5RF Print Language: English
--- OUTSIDE RECORDS SUMMARY | 2025-09-01 12:33 | XMS_ITS | Patient Health Record ---
Author Organization [facility] Address Formerly 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 Tabitha. Med. P.R. ORDER [id number] PERFORMED AT: Pat. No.: [id number] [facility] [place] Paid 5 C[address] Exp: 01/08/2025 [place] [address] Num: [id number] DIRECTOR: JAIME SARAVIA LICENSE.: [id number] CLIA: [id number] WHITE BLOOD COUNT 7.0 4.8-10.8 X10 RED [...] sample is Col. Tabitha. Med. P.R. ORDER [id number] PERFORMED AT: below the detection limit of the test. Pat. No.: [id number] [facility] [place] Test results must be evaluated in conjunction with other clinical data. Paid 5 Cents [address] Negative test results do not rule out other non-influenza viral infections Exp: 01/08/2025 [place] [address] Positive test results do not identify specific influenza A virus subtypes Num: [id number] Individuals who recieved nasally influenza A vaccine may have positive DIRECTOR: JAIME SARAVIA test results for up to three days after vaccination. LICENSE.: [id number] CLIA: [id number] INFLUENZA A ANTIGEN NEGATIVE NEGATIVE INFLUENZA B ANTIGEN NEGATIVE NEGATIVE METHOD: STATUS COVID-19/FLU A&B COVID-19 ANTIGEN Reviewed date:12/28/2024 02:51:15 PM Interpretation: Performing Lab: Notes/Report: Col. Tabitha. Med. P.R. ORDER [id number] PERFORMED AT: -- Positive results indicate the presence of COVID-19 antigen, but clinical Pat. No.: [id number] [facility] [place] correlation with patient history and other diagnostic information is Paid 5 Cents [address] necessary to determine infection status. Positive results do not rule out Exp: 01/08/2025 [place] [address] bacterial infection or co-infection with other viruses and do not Num: [id number] differentiate between SARS-CoV and SARS-CoV-2. DIRECTOR: JAIME SARAVIA -- Negative results, from patients with symptom onset beyond seven days, LICENSE.: [id number] CLIA: [id number] should be treated as presumptive and confirmation [...] Notes/Report: See Below For Report Chest PA: [id number].Report Text See Below For Report INFLUENZA AG A & B Reviewed date:09/29/2024 [...] clinical data. Col. Tabitha. Med. P.R. ORDER [id number] PERFORMED AT: Negative test results do not rule out other non-influenza viral infections Pat. No.: [id number] [facility] [place] Positive test results do not identify specific influenza A virus subtypes Paid [address] Individuals who recieved nasally influenza A vaccine may have positive Exp: 12/08/2024 [place] [address] test results for up to three days after vaccination. Num: [id number] DIRECTOR: JAIME SARAVIA LICENSE.: [id number] CLIA: [id number] INFLUENZA A ANTIGEN POSITIVE NEGATIVE A INFLUENZA B ANTIGEN NEGATIVE NEGATIVE METHOD: STATUS COVID-19/FLU A&B COVID-19 ANTIGEN Reviewed date:09/29/2024 02:13:34 PM Interpretation: Performing Lab: Notes/Report: Col. Tabitha. Med. P.R. ORDER [id number] PERFORMED AT: -- Positive results indicate the presence of COVID-19 antigen, but clinical Pat. No.: [id number] [facility] [place] correlation with patient history and other diagnostic information is Paid 5 Cents [address] necessary to determine infection status. Positive results do not rule out Exp: 12/08/2024 [place] [address] bacterial infection or co-infection with other viruses and do not Num: [id number] differentiate between SARS-CoV and SARS-CoV-2. DIRECTOR: JAIME SARAVIA -- Negative results, from patients with symptom onset beyond seven days, LICENSE.: 1369 CLIA: [id number] should be treated as presumptive and confirmation [...] Performing Lab: Notes/Report: See Below For Report [id number].Report Text See Below For Report Reason For Referral No Information Medications Medication SIG (Take, Route, Frequency, Duration) Notes Start Date End Date Status Gabapentin 300 MG Capsule 1 capsule Oral ly TWO times a day; Duration: 30 day(s) 02/09/2019 Active Ranitidine HCl 300 MG Tablet 1 tablet at bedtime Orally Once a day; Duration: 30 day(s) 07/21/2018 Active predniSONE 5 MG Tablet 1 tablet Orally O nce a day; Duration: 30 day(s) Active Flovent HFA Active Naproxen 500 MG Tablet 1 tablet if pain Orally every 12 hrs 09/29/2024 Active Loratadine 10 MG Tablet 1 tablet Orally Once a day 09/29/2024 Active Tussin DM 100-10 MG/5ML Syrup 10 mL as needed Orally Every 6 hours 09/29/2024 Active Oseltamivir Phosphate 75 MG Capsule 1 capsule Orally Twice a day; Duration: 5 days 09/29/2024 Active Nabumetone 750 MG Tablet 1 tablet Orally Twice a day; Duration: as needed 07/21/2018 Active Montelukast Sodium 10 MG Tablet 1 tablet in the evening Orally Once a day; Duration: 30 day(s) 07/21/2018 Active metFORMIN HCl 500 MG Tablet 1 tablet wit h meals Orally Once a day; Duration: 30 day(s) 07/21/2018 Active Lisinopril-hydroCHLOROthiaz rosana 20-25 MG Tablet 1 tablet Orally Once a day; Duration: 30 day(s) 07/21/2018 Active Oksqeobw-Sijoujnea-RH 1 % Solution 4 drops into affected ear RIGHT EAR Otic Three times a day; Duration: 7 days 01/12/2019 Active Immunizations Vaccine Route Administration Date Status Comme [...] stop date) Never Smoker NA - NA Sex Assigned At : Social History Observation Description Sex Assigned At Female Social History COVID-19 Social Info Question Answer Notes [place] COVID-19 Fecha 12/28/2024 Presenta algun sintoma: Tos Se simmons realizado recientement e la prueba rapida o molecular para el COVID 19 No Conoce a alguien que haya sido positivo al COVID -19 No Simmons participado de eventos pu blicos, sociales o familiares en los ultimos 14 alicea No [place] viajado fuera de [place] o simmons estado en contacto con alguien que haya estado fu[place] de [place] en los pasados 14 alicea No Se simmons vacunado contra el COVID-19 Refuerzo Sexual History: Social Info Question Answer Notes [...] maltrato, violencia, u abuso sexual? No Viaje Si viajo fuera de P.R. A donde [place] Cuando Inmunizacion al norah Si Inmunizacion contra el [...] Do you drink alcohol? No Section Notes: EDILSON PAZ RN BSN. Lic.[id number], BETSABEE A 08/16/2025 10:50:45 AM > Social History documented TAMARA NOBLES RN. BSN Lic. [id number], SHARDA M 09/29/2024 11:15:44 AM > Problems Problem Type SNOMED Code ICD Code Onset Dates Problem Status W/U Status Risk Notes Problem Essential hypertension (62643473) Essential (primary) hypertension (I10) Active confirmed Essential (primary) hypertension Problem Chronic pain (60737039) Other chronic pain (G89.29) Active confirmed Problem Postmenopausal bleeding (06921540) Postmenopausal bleeding (N95.0) Active confirmed Problem Hyperglycemia due to type 2 diabetes mellitus (925833883488213) Controlled type 2 diabetes mellitus with hyperglycemia, without long-term current use of insulin (E11.65) Active confirmed Problem Acute severe exacerbation of mild persistent asthma (disorder) (458979356) Mild persistent asthma with acute exacerbation (J45.31) Active confirmed Problem Rheumatoid arthritis (19195328) Rheumatoid arthritis involving multiple sites with positive rheumatoid factor (M05.79) Active confirmed Problem Body mass index 30.00 to 34.99 (125455098460947) Body mass index (BMI) of 33.0 to 33.9 in adult (Z68.33) Active confirmed Problem Type II diabetes mellitus without complication (827932659) Controlled diabetes mellitus (E11.9) Active confirmed Problem Rheumatoid arthritis (91425191) Rheumatoid arthritis involving multiple sites, unspecified rheumatoid factor presence (M06.9) Active confirmed Problem Diabetes mellitus type 2 (01480235) Diabetes mellitus type 2, uncontrolled (E11.65) Active confirmed Problem Morbid obesity (693639672) Morbid obesity (E66.01) Active confirmed Problem Mild intermittent asthma (491716172) Asthma, intermittent, uncomplicated (J45.20) Active confirmed Problem Body mass index 40+ - morbidly obese (588309499) BMI 40.0-44.9, adult (Z68.41) Active confirmed Problem Herpes simplex labialis (5473001) 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 Lic.[id number], CELESTINE Anderson 08/16/2025 10:52:36 AM > TAMARA MCDONALD RN.BSN Lic.47976, JIM 08/16/2025 12:52:04 PM > Se realiza reestimado de dolor, paciente refiere intensidad 0 en la escala de valoracion del dolor. Temperature 36.8 C 08/16/2025 WAGGONER [employer]. Lic.[id number], BETSABEE A 08/16/2025 10:52:36 AM > MCDONALD MCDONALD RN.BSN Lic.73368, JIM 08/16/2025 12:52:04 PM > Se realiza reestimado de dolor, paciente refiere intensidad 0 en la escala de valoracion del dolor. Respiratory Rate 20 /min 08/16/2025 [employer] N [employer]. Lic.[id number], BETSABEE A 08/16/2025 10:52:36 AM > MCDONALD MCDONALD RN.BSN Lic.80426, JIM 08/16/2025 12:52:04 PM > Se realiza reestimado de dolor, paciente refiere intensidad 0 en la escala de valoracion del dolor. Height-cm 154.94 cm 08/16/2025 [employer]. Lic.[id number], BETSABEE A 08/16/2025 10:52:36 AM > MCDONALD MCDONALD RN.BSN Lic.64130, JIM 08/16/2025 12:52:04 PM > Se realiza reestimado de dolor, paciente refiere intensidad 0 en la escala de valoracion del dolor. Blood pressure diastolic 68 mm Hg 08/16/2025 DIANE LES [employer]. Lic.[id number], BETSABEE A 08/16/2025 10:52:36 AM > MCDONALD MCDONALD RN.BSN Lic.52748, JIM 08/16/2025 12:52:04 PM > Se realiza reestimado de dolor, paciente refiere intensidad 0 en la escala de valoracion del dolor. Oximetry 98 % 08/16/2025 [employer]. Lic.59142, BETSABEE A 08/16/2025 10:52:36 AM > MCDONALD MCDONALD RN.BSN Lic.99394, JIM 08/16/2025 12:52:04 PM > Se realiza reestimado de dolor, paciente refiere intensidad 0 en la escala de valoracion del dolor. Weight-kg 96.62 kg 08/16/2025 [employer]. Lic.[id number], BETSABEE A 08/16/2025 10:52:36 AM > MCDONALD MCDONALD RN.BSN Lic.26560, JIM 08/16/2025 12:52:04 PM > Se realiza reestimado de dolor, paciente refiere intensidad 0 en la escala de valoracion del dolor. Height 61 in 08/16/2025 [employer]. Lic.52057, BETSABEE A 08/16/2025 10:52:36 AM > MCDONALD MCDONALD RN.BSN Lic.87204, JIM 08/16/2025 12:52:04 PM > Se realiza reestimado de dolor, paciente refiere intensidad 0 en la escala de valoracion del dolor. Blood pressure systolic 165 mm Hg 08/16/2025 DIANEL JEFF [employer]. Lic.[id number], BETSABEE A 08/16/2025 10:52:36 AM > MCDONALD MCDONALD RN.BSN Lic.23076, JIM 08/16/2025 12:52:04 PM > Se realiza reestimado de dolor, paciente refiere intensidad 0 en la escala de valoracion del dolor. Weight 213 lbs 08/16/2025 [employer]. Lic.15925, BETSABEE A 08/16/2025 10:52:36 AM > MCDONALD MCDONALD RN.BSN Lic.15622, JIM 08/16/2025 12:52:04 PM > Se realiza reestimado de dolor, paciente refiere intensidad 0 en la escala de valoracion del dolor. BMI 40.24 kg/m2 08/16/2025 [employer]. Lic.73673, CARMINEDEACON A 08/16/2025 10:52:36 AM > TAMARA MCDONALD RN.BSN Lic.37310, JIM 08/16/2025 12:52:04 PM > Se realiza reestimado de dolor, paciente refiere intensidad 0 en la escala de valoracion del dolor. Encounters Encounter Location Date Provider Diagnosis [facility] [address] [place], [place] [id number] 12/28/2024 PACO GUZMÁNSHANTAL MARQUEZRERO Cough R05.9 ; Low back pain M54.50 and Asthma exacerbation J45.901 [facility] [place] [address] [place], [place] [id number] 09/29/2024 JOLYNN MEZA FRANCO URTI (acute upper respiratory infection) J06.9 ; Influenza A J10.1 and Acute cough R05.1 [facility] [place] [address] [place], [place] [id number] 08/16/2025 MATTHEW DAVALOS Active asthma J45.909 Assessments Encounter Date Diagnosis (ICD Code) Assessment Notes Treatment Notes Treatment Clinical Notes Section Notes 12/28/2024 Cough (ICD-10 - R05.9) 1) TUSSIN 10 ML PO 2) [id number] MG IV 3) SOLUMEDROL 125 M GIV 4) ALBUTEROL 0.083 + ATROVENT 0.02 BY PN ONCE [place] A 12/28/2024 12:50:51 PM > CÉSAR BARBA. [employer] Lic. [id number], GENE 12/28/2024 12:57:44 PM > Moreno velarde. CÉSAR OSBORNE RN BSN Lic. [id number], GENE 12/28/2024 12:57:44 PM > CÉSAR OSBORNE RN BSN Lic. [id number], GENE 12/28/2024 01:10:58 PM > Se recibe [...] 0.083% + Atrovent 0.02 10/11. CÉSAR BARBA. [employer] Lic. [id number], GENE 12/28/2024 01:10:58 PM > CÉSAR BARBA. CÉSAR BARBA. [employer] Lic. [id number], GENE 12/28/2024 02:10:54 PM > Paciente es re evaluada por Dr. uGtierrez y es cortez de renato en condicion [...] 0 al momento del renato. CÉSAR BARBA. [employer] Lic. [id number], GENE 12/28/2024 02:10:55 PM > 12/28/2024 Low back pain (ICD-10 - M54.50) 08/16/2025 Active asthma (ICD-10 - J45.909) LEVALBUTEROL THERAPY X3 CONTINUA ATROVENT THERAPY X3 CONTINUA SOLUMEDROL 125 ML IVP SULFATO DE MG 1 GM IM ZYNCOF 10 ML PO DAVALOS, MATTHEW 08/16/2025 11:16:33 AM > DAVALOS, MATTHEW 08/16/2025 11:10:19 AM > 09/29/2024 Influenza A (ICD-10 - J10.1) 09/29/2024 URTI (acute upper respiratory infection) (ICD-10 - J06.9) Tx: 1) Toradol 60 mg IM x1 2) Benadryl 25 mg PO x1 3) Guaifenesin DM 10 ml PO x1 MEZA FRANCO, JOLYNN 09/29/2024 01:24:37 PM > 09/29/2024 Acute cough (ICD-10 - R05.1) 12/28/2024 Asthma exacerbation (ICD-10 - J45.901) 09/29/2024 Jeffery ALVAREZ RN, BSN LIC. [id number], NATHANIEL M 09/29/2024 01:25:28 PM > Se [...] refiere entender. DYLAN ALVAREZ RN, BSN LIC. [id number], [facility] 09/29/2024 01:25:29 PM > MIKIE SAM RN BSN, Lic. [id number] 09/29/2024 02:00:01 PM > Se recibe llamada del laboratorio de la [facility]. Santi Barillas reportando influenza A positivo; se le notifica al Dr. Meza. MIKIE SAM [employer], Lic. [id number], [place] 09/29/2024 02:00:02 PM > DYLAN ALVAREZ RN, BSN LIC. [id number], [facility] 09/29/2024 02:44:16 PM > Paciente es [...] del renato. DYLAN ALVAREZ RN, BSN LIC. [id number], [facility] 09/29/2024 02:44:27 PM > 08/16/2025 Other GIVENS LOPEZ BSN Lic. [id number] 08/16/2025 11:21:53 AM > Se ubica paciente en cama 3Pcon barandas elevadas y timbre accesible por [place] seguridad. Se corroboran alergias y se provee privacidad a paciente. Se canaliza paciente en antecubital deondre con angio 24, bajo medidas asepticas y de seguridad, acceso venoso patente, heriberto de edema y enrojecimiento. Se administran medicamentos kyle orden medica: Solumedrol 125 mg IV , Sulfato de magnecio 1 G IV , Zincof 10 ml PO bajo medidas asepticas y de seguridad. Paciente no presenta reaccion adversa al momento. Se observa paciente con terapia respiratoria ordenada por medico de turno. Se mantiene bajo observacion y se orienta a notificar cambios, refiere entender. CHON LOPEZ RN. BSN Lic. [id number], [place] 08/16/2025 11:21:53 AM > CHON LOPEZ RN. BSN Lic. [id number], [facility] 08/16/2025 11:56:26 AM > Se observa paciente con segunda terapia respiratoria ordenada por medico de turno. CHON LOPEZ RN. BSN Lic. [id number], [place] 08/16/2025 11:56:30 AM > TAMARA MCDONALD RN BSN. Lic.[id number] 08/16/2025 12:20:21 PM > Se observa paciente con tercera terapia respiratoria ordenada por Dr. Davalos. TAMARA MCDONALD RN BSN. Lic.[id number], RIKI 08/16/2025 12:20:44 PM > TAMARA MCDONALD RN.BSN Lic.[id number] 08/16/2025 12:52:21 PM > Paciente es dado de renato [...] dolor en 0 al momento del renato. TAMARA MCDONALD RN.BSN Lic.[id number], JIM 08/16/2025 12:52:26 PM > MATTHEW DAVALOS 08/16/2025 11:10:19 AM > Plan Of Treatment Pending Test Test [...] Insured Coverage Start Date Coverage End Date [facility] [address] [address] [id number] Laura Beckman Self - patient is the insured 4 5 MEDICARE [address] [address] [place], [place] [id number] Laura Beckman Self - patient is the insured 5 Medical (General) History Medical History History ICD Code ARTRITIS REUMATOIDEA DIABETICA ASMA RENATO PRESION Surgical History Surgery Date(Month/Year) cholecystectomy
[2025-09-01 12:39] VITALS: BP 165/74; PULSE 74; RESP 16; TEMP 36.6; O2SAT 98
== END 2025-09-01 12:40 | disposition home or self-care (01) ==
PROVIDERS: Emergency Provider Emergency Medicine Emergency Medical Services; PCP Internal Medicine
DX: B35.4 Tinea corporis (principal); I10 Essential (primary) hypertension; E78.5 Hyperlipidemia, unspecified; E11.9 Type 2 diabetes mellitus without complications
CPT/HCPCS: 99282; 99283

== ENCOUNTER 2025-09-16 11:48 | Emergency (ER) | payer MEDICARE, MEDICAID, SELFPAY ==
[2025-09-16 12:06] VITALS: BP 185/84; PULSE 80; RESP 18; TEMP 36.6; O2SAT 98; BMI 41.8
--- NOTE | 2025-09-16 12:06 | ED.NECK ---
HPI - Neck Pain/Injury General Chief Complaint: Headache Stated Complaint: neck pain Time Seen by Provider: 09/16/25 13:29 Source: patient, RN notes reviewed, old records reviewed and sleep scientist Mode of arrival: ambulatory Limitations: language barrier History of Present Illness ED Provider: Jennifer HPI Narrative: Patient is a 65-year-old Georgian speaking female with history of TIA, asthma, HLD, HTN, RA, diabetes, cervical spondylosis presenting to the emergency department with complaint of right lateral neck pain and headache for the past 4 days. Denies fall or other trauma. Denies pain worst at onset. Denies any vision changes, dizziness, lightheadedness, syncope. Denies recent fevers. Does report recent nasal congestion and states she has been taking Claritin for her symptoms. Has not taken any other [id number] medications for pain. MD complaint: neck pain Related Data Home Medications ?Medication ?Instructions ?Recorded ?Confirmed blood pressure test kit-large #1 ea 06/02/24 07/13/25 atorvastatin 10 mg tablet 10 mg PO DAILY 06/25/25 07/13/25 Previous Rx's ?Medication ?Instructions ?Recorded albuterol sulfate 90 mcg/actuation 2 inh PO Q4H PRN shortness of 08/13/20 aerosol inhaler breath or wheezing #8.5 grams docusate sodium 100 mg capsule 100 mg PO BID #30 caps 12/07/22 (Col-Rite) blood sugar diagnostic (FreeStyle #50 ea 02/10/23 Lite Strips) blood-glucose meter (FreeStyle #1 ea 02/10/23 Lite Meter kit) lancets 28 gauge (FreeStyle #100 ea 02/10/23 Lancets) cock up splint #1 ea 03/03/23 blood pressure monitor #1 ea 02/07/24 sennosides 8.6 mg tablet (senna) 8.6 mg PO BEDTIME PRN constipation 04/20/24 7 days #7 tabs meclizine 50 mg tablet 50 mg PO DAILY PRN motion sickness 04/23/24 #14 tabs gabapentin 300 mg capsule 300 mg PO TID pain 30 days #90 caps 07/06/24 fluticasone propionate 110 2 puff inhalation BID Asthma/Cough 01/18/25 mcg/actuation HFA aerosol inhaler 30 days #12 grams ipratropium 0.5 mg-albuterol 3 mg 3 ml inhalation Q6H PRN wheezing 02/09/25 (2.5 mg base)/3 mL nebulization #180 mL soln dulaglutide 1.5 mg/0.5 mL 1.5 mg (0.5 mL) subcut QWEEK 4 03/06/25 subcutaneous pen injector weeks #2 mL (Trulicity) acetaminophen 500 mg capsule 1,000 mg (2 x 500 mg) PO Q8H PRN 03/13/25 fever or pain #14 caps tramadol 50 mg tablet 50 mg PO Q8H PRN pain #12 tabs 03/13/25 bisacodyl 5 mg tablet,delayed 10 mg (2 x 5 mg) PO .daily 90 days 04/02/25 release #180 tabs polyethylene glycol 3350 17 17 g PO DAILY #238 grams 04/02/25 gram/dose oral powder (Miralax) ondansetron 4 mg disintegrating 4 mg PO Q6H PRN nausea and 04/04/25 tablet vomiting #10 tabs sucralfate 1 gram tablet 1 g PO TID PRN Upper abdominal 04/04/25 pain #60 tabs cholestyramine 4 gram oral powder 4 g PO BID PRN diarrhea 30 days 04/12/25 (Cholestyramine Light) #210 grams losartan 100 mg tablet 100 mg PO DAILY hypertension 30 04/12/25 days #30 tabs pioglitazone 30 mg tablet 30 mg PO DAILY 90 days #90 tabs 04/12/25 dicyclomine 20 mg tablet 20 mg PO TID PRN abdominal pain 30 05/07/25 days #90 tabs salmeterol 50 mcg/dose blister 1 inh inhalation BID 30 days #60 ea 05/08/25 powder for inhalation (Serevent Diskus) amlodipine 10 mg tablet 10 mg PO DAILY #90 tabs 06/14/25 losartan 100 mg tablet 100 mg PO DAILY #90 tabs 06/14/25 omeprazole 20 mg capsule,delayed 20 mg PO BID 90 days #180 caps 06/25/25 release Orencia ClickJect 125 mg/mL 125 mg subcut QWEEK #4 mL 06/29/25 subcutaneous auto-injector (abatacept) lidocaine 5 % topical patch 1 patch topical DAILY #30 ea 07/13/25 ketoconazole 2 % topical cream 1 appl topical BID 1 week #30 grams 09/01/25 lidocaine 5 % topical patch 1 patch topical DAILY #15 ea 09/16/25 methocarbamol 500 mg tablet 1,000 mg (2 x 500 mg) PO TID #18 09/16/25 tabs Allergies Allergy/AdvReac Type Severity Reaction Status Date / Time cyclobenzaprine (From Allergy Intermediate Dizziness Verified 09/16/25 12:08 Flexeril) orphenadrine (From Norflex) Allergy Intermediate Dizziness Verified 09/16/25 12:08 sarilumab (From Kevzara) Allergy Intermediate Rash Verified 09/16/25 12:08 Review of Systems Review of Systems: as per hpi Yes all other systems are reviewed and are negative Constitutional: Constitutional: Reports as per HPI PMFSH Past Medical History Medical History Urinary tract infection Bronchitis Morbid obesity with BMI of 45.0-49.9, adult Sacroiliitis Rheumatic fever TIA (transient ischemic attack) Right-sided back pain History of COVID-19 Asthma exacerbation Hospital discharge follow-up Sacroiliitis Renal calculi Costovertebral angle tenderness Burning with urination Disc degeneration, lumbar Spondylosis of cervical spine Spondylosis of lumbar spine Pleuritic pain Restrictive lung disease Morbid obesity Asthma Dyslipidemia Essential hypertension Vaginal modesta Seropositive rheumatoid arthritis Rheumatoid arthritis Diabetes Surgical History History of cholecystectomy Hx of colonoscopy (09/01/19) History of surgery on wrist Family History Family History Father Diabetes mellitus Myocardial infarction Hypertension CVD (cardiovascular disease) Mother Diabetes mellitus CVD (cardiovascular disease) Sister No problems noted. Son No problems noted. Son No problems noted. Son No problems noted. Daughter Thyroiditis Daughter No problems noted. Daughter No problems noted. Daughter No problems noted. Daughter No problems noted. Other Asthma exacerbation Social History Social History Housing: Apartment Alcohol intake: never Patient Tobacco Use Status: Never used Tobacco Smoked in Last 30 Days: No e-Cigarette/Vaping Use: Never Used Second Hand Smoke Exposure: No Use of substances other than those prescribed or required for medical reasons: No Advance Directives: No Advance Directives Information Provided: No Do you have a plan to hurt others: No Plan service: No Current occupational status: disabled Sexual orientation: Straight/Heterosexual Gender identity: Female Cognitive needs: No Hearing needs: No Vision needs: No Physical Exam Vital Signs: Vital Signs: Last Vital Signs Temp 98.1 F 09/16/25 16:53 Pulse 66 09/16/25 16:53 Resp 16 09/16/25 16:53 BP 152/70 H 09/16/25 16:53 Pulse Ox 98 09/16/25 16:53 O2 Del Method Room Air 09/16/25 16:53 BMI result Body Mass Index 41.8 Vital signs have been reviewed and appear to be correct. Blood pressure normal. Heart rate normal. Respiratory rate normal. Temperature normal. Oxygen saturation normal. Const: General: cooperative, healthy appearing and no acute distress Orientation/consciousness: oriented to person, oriented to place, oriented to time and patient oriented x3 Limitations: no limitations HEENT: Head: Yes normocephalic and Yes atraumatic Ears: external ears normal General nose exam: Normal external nose present Face and sinus: Yes face symmetric Mouth: oropharynx normal and moist mucous membranes Throat: Yes uvula midline Eyes: Pupils: Equal, round and reactive pupils present Neck: Neck: Yes normal visual inspection, Yes full ROM, Yes no lymphadenopathy, Yes no meningeal signs, Yes trachea midline and Yes supple Resp: Effort & Inspection: normal respiratory effort and able to speak in complete sentences Auscultation: clear to auscultation bilaterally Cardio: Rate: regular rate Rhythm: regular rhythm Heart sounds: S1 normal heart sound present and S2 normal heart sound present GI: Palpation (GI): Soft to palpation and nontender Auscultation: normoactive bowel sounds : General: Yes no CVA tenderness Back/Spine/Pelvis: Back: no CVA tenderness Cervical Spine: normal cervical lordosis, cervical ROM normal, cervical muscular tenderness (right lateral), No pain with cervical ROM, No Cervical spine tenderness and No step off deformity Skin: General skin exam: elasticity normal and turgor normal Neuro: General: oriented to person, oriented to place, oriented to time, patient oriented x3, gait normal, tone normal, moves all extremities, Normal light touch and pain sensation, no meningeal signs, no focal motor deficits, CN's II-XI intact bilaterally and deep tendon reflexes 2+ bilaterally Cranial nerves: Yes Equal, round and reactive pupils present Cognition (Neuro): normal cognition Motor exam (neuro): 5/5 motor strength present throughout, Normal motor muscle tone present throughout and Motor abnormalities not present Extrem: General: Yes full ROM, Yes no pedal edema and Yes no calf tenderness Psych: Mental Status: mental status grossly normal Affect: normal affect Thought process: Normal thought process present Course Course Course Narrative: This is a Rapid Medical Exam performed in triage by Jackelyn Loyd PA-C. Full HPI, ROS and PE to be performed by primary ED provider. 65-year-old Georgian-speaking female with a past medical history of TIA, asthma, HLD, HTN, RA, diabetes presenting to the ED c/o headache and neck pain x4 days. denies head trauma or LOC. denies experiencing CHRISTINE's often. CHRISTINE not maximal at onset, denies N/V, visual changes or weakness, fever PE: NAD, nontoxic appearing, ambulating with steady gait. Non focal Plan: SARs, labs Medications Administered Discontinued Medications Generic Name Dose Route Start Last Admin Trade Name Napoleon PRN Reason Stop Dose Admin Diazepam 2.5 mg 09/16/25 14:57 09/16/25 15:04 Diazepam 10 Mg/2 Ml Cartridge IVPUSH 09/16/25 14:58 2.5 mg STAT STA Administration Ketorolac Tromethamine 15 mg 09/16/25 14:57 09/16/25 15:04 Ketorolac Tromethamine 15 Mg/Ml Vial IVPUSH 09/16/25 14:58 15 mg ONCE ONE Administration Oxycodone HCl 5 mg 09/16/25 16:46 09/16/25 16:53 Oxycodone Hcl Immed Release 5 Mg Tablet PO 09/16/25 16:47 5 mg ONCE ONE Administration Medical Decision Making Medical Decision Making MDM Narrative: Patient is a 65-year-old Georgian speaking female with history of TIA, asthma, HLD, HTN, RA, diabetes, cervical spondylosis presenting to the emergency department with complaint of right lateral neck pain and headache for the past 4 days. On exam patient is awake, A+Ox3, VS WNL, afebrile, normal neurological exam without focal deficits, physical exam findings as above. Given reported symptoms and physical exam findings, initial differential includes but is not limited to cervical spondylosis, musculoskeletal pain, cervical strain. Jaw feel imaging is indicated as patient denies any trauma. No red flag findings concerning for ICH/SAH, acute glaucoma, carotid artery dissection, CO poisoning, encephalitis, meningitis, preeclampsia, pseudotumor, temporal arteritis/giant cell arteritis. Labs unremarkable, viral serology negative. Given that patient has only taken Claritin for her symptoms so far, will try medicating with Toradol and Valium to see if this relieves her pain. Patient reports minimal relief of pain after Toradol and Valium. Will try oral oxycodone. Patient reports significant improvement in pain after oxycodone and feels ready for discharge home. I am comfortable with this, will send prescription for Robaxin and topical lidocaine patches. Patient states that she is seeing pain management on . Advised follow up with PCP as she may require physical therapy. Return precautions discussed. Patient verbalized understanding of and agreement with plan. In-person extractions technician was utilized for all interactions, assessments, and discussions. Differential Diagnosis Differential Diagnoses: The differential diagnosis associated with the presentation includes as per [facility] Admission/Observation Consideration of admission/observation: Escalation of care including admission/observation considered Patient would have been admitted to the hospital and transferred to appropriate facility had their clinical presentation warranted hospital admission. Lab Data [facility] Lab Attestation statement: I reviewed the patient's lab results. as per [facility] 09/16/25 12:39 09/16/25 12:39 Labs: Lab Results 09/16/25 Range/Units 12:39 WBC 6.1 (4.8-10.8) X10*3/uL RBC 4.63 (4.20-5.50) X10*6/uL Hgb 14.7 (12.0-16.0) g/dl Hct 43.9 (37.0-47.0) % MCV 94.8 (80.0-98.0) fL MCH 31.7 (27.0-33.0) pg MCHC 33.5 (31.0-35.0) g/dl RDW 11.9 (11.0-16.0) % Plt Count 209 D (160-400) X10*3/uL MPV 10.9 (9.4-12.3) fL Immature Gran % (Auto) 0.8 H (0.0-0.4) % Neut % (Auto) 63.1 (45-73) % Lymph % (Auto) 22.9 (20-40) % [place] % (Auto) 6.8 (2-11) % Eos % (Auto) 5.9 H (0-4) % Baso % (Auto) 0.5 (0-2) % Lymph # (Auto) 1.4 (1.2-4.9) X10*3/uL [place] # (Auto) 0.4 (0.1-1.2) X10*3/uL Eos # (Auto) 0.4 (0.0-0.4) X10*3/uL Baso # (Auto) 0.0 (0.0-0.2) X10*3/uL Abs Immat Gran (auto) 0.05 H (0.00-0.03) X10*3/uL Absolute Neuts (auto) 3.8 (2.0-8.3) x10*3/uL Absolute Nucleated RBC 0.000 (0.0-0.012) X10*3/uL Nucleated RBC % (auto) 0.0 (0.0-0.2) /100WBC Sodium 144 (135-145) mmol/L Potassium 3.5 (3.3-5.1) mmol/L Chloride 110 H (96-108) mmol/L Carbon Dioxide 29 (22-29) mmol/L Anion Gap 9 L (12-20) BUN 14 (9-16) mg/dL Creatinine 0.67 (0.5-1.4) mg/dL Estim Creat Clear Calc 87.3 Estimated GFR > 60 Random Glucose 95 (60-115) mg/dL Calcium 9.2 (8.4-10.2) mg/dL Influenza Type A (PCR) NEGATIVE (Negative) Influenza Type B (PCR) NEGATIVE (Negative) RSV RNA Qual (PCR) NEGATIVE (Negative) SARS-CoV-2 RNA (RT-PCR) NEGATIVE (Negative) External Record Review External record reviewed: Inpatient record, Office record and Outpatient record Prescription Management I considered prescription management with: Pain Medication and Other Discharge Plan Discharge Clinical Impression: Cervical strain Patient Disposition: Home, Self-Care Instructions: Cervical Strain (DC) Additional Instructions: You were evaluated in the emergency department with complaint of neck pain and headache. Your pain is likely related to a muscle strain. We recommend taking 650mg Tylenol every 6 hours as needed for pain. You are also being prescribed a muscle relaxer which you can use up to every 8 hours as needed. You are being prescribed topical lidocaine patches which you can wear for up to 12 hours in a 24 hour period. Do not apply heat directly over the patches. You should follow up with your primary care provider as you may require physical therapy to improve your symptoms. Return to the emergency department if you develop worsening neck pain or stiffness, new weakness, numbness, or tingling to your arm, severe headaches, or any other concerning symptoms. Prescriptions: New lidocaine 5 % adhesive patch,medicated 1 patch topical DAILY Qty: 15 0RF Rx Instructions: leave on most painful area for up to 12 hrs methocarbamol 500 mg tablet 1,000 mg PO TID Qty: 18 0RF No Action albuterol sulfate 90 mcg/actuation HFA aerosol inhaler 2 inh PO Q4H PRN (Reason: shortness of breath or wheezing) Qty: 8.5 1RF (DME) FreeStyle Lite Strips Strip See Rx Instructions .ROUTE .MEDSUPPLY Qty: 50 11RF Rx Instructions: Use 1 test strip once a day (DME) blood-glucose meter [FreeStyle Lite Meter] Kit See Rx Instructions .ROUTE .MEDSUPPLY Qty: 1 0RF Rx Instructions: E11.9 ONCE A DAY (DME) lancets [FreeStyle Lancets] 28 gauge misc See Rx Instructions .ROUTE .MEDSUPPLY Qty: 100 11RF Rx Instructions: Use 1 lancet once a day as needed (DME) blood pressure monitor Kit See Rx Instructions .Route Qty: 1 0RF Rx Instructions: As directed ipratropium-albuterol 0.5 mg-3 mg(2.5 mg base)/3 mL solution for nebulization 3 ml inhalation Q6H PRN (Reason: wheezing) Qty: 180 0RF dicyclomine 20 mg tablet 20 mg PO TID PRN (Reason: abdominal pain) 30 Days Qty: 90 0RF docusate sodium [Col-Rite] 100 mg capsule 100 mg PO BID Qty: 30 0RF meclizine 50 mg tablet 50 mg PO DAILY PRN (Reason: motion sickness) Qty: 14 0RF acetaminophen 500 mg capsule 1,000 mg PO Q8H PRN (Reason: fever or pain) Qty: 14 0RF tramadol 50 mg tablet 50 mg PO Q8H PRN (Reason: pain) Qty: 12 0RF ketoconazole 2 % cream 1 appl topical BID 7 Days Qty: 30 0RF sucralfate 1 gram tablet 1 g PO TID PRN (Reason: Upper abdominal pain) Qty: 60 0RF ondansetron 4 mg tablet,disintegrating 4 mg PO Q6H PRN (Reason: nausea and vomiting) Qty: 10 0RF amlodipine 10 mg tablet 10 mg PO DAILY Qty: 90 0RF losartan 100 mg tablet 100 mg PO DAILY Qty: 90 0RF sennosides [senna] 8.6 mg tablet 8.6 mg PO BEDTIME PRN (Reason: constipation) 7 Days Qty: 7 0RF (DME) blood pressure test kit-large Kit See Rx Instructions .ROUTE .MEDSUPPLY Qty: 1 Rx Instructions: As directed Trulicity 1.5 mg/0.5 mL pen injector 1.5 mg subcut QWEEK 28 Days Qty: 2 5RF fluticasone propionate 110 mcg/actuation HFA aerosol inhaler 2 puff inhalation BID 30 Days Qty: 12 5RF Rx Instructions: administer with spacer lidocaine 5 % adhesive patch,medicated 1 patch topical DAILY Qty: 30 5RF Rx Instructions: leave on most painful area for up to 12 hrs Serevent Diskus 50 mcg/dose blister with device 1 inh inhalation BID 30 Days Qty: 60 5RF (DME) cock up splint See Rx Instructions .Route .MEDSUPPLY Qty: 1 0RF Rx Instructions: wear on the right wrist at night gabapentin 300 mg capsule 300 mg PO TID 30 Days Qty: 90 6RF albuterol sulfate 2.5 mg /3 mL (0.083 %) solution for nebulization 2.5 mg inhalation ONCE Qty: 3 0RF bisacodyl 5 mg tablet,delayed release (DR/EC) 10 mg PO .daily 90 Days Qty: 180 1RF polyethylene glycol 3350 [Miralax] 17 gram/dose powder 17 g PO DAILY Qty: 238 1RF Rx Instructions: hold for loose stools losartan 100 mg tablet 100 mg PO DAILY 30 Days Qty: 30 4RF pioglitazone 30 mg tablet 30 mg PO DAILY 90 Days Qty: 90 1RF Cholestyramine Light 4 gram powder 4 g PO BID PRN (Reason: diarrhea) 30 Days Qty: 210 0RF Rx Instructions: administer w/meal; avoid other meds within 1hr before or 4-6hr after dose atorvastatin 10 mg tablet 10 mg PO DAILY omeprazole 20 mg capsule,delayed release(DR/EC) 20 mg PO BID 90 Days Qty: 180 0RF Orencia ClickJect 125 mg/mL auto-injector 125 mg subcut QWEEK Qty: 4 5RF Print Language: Georgian
[2025-09-16 12:57] LABS: MANUAL DIFF FLAG NO
[2025-09-16 13:07] LABS: Hematocrit 43.9 % (37.0-47.0); Hemoglobin 14.7 g/dl (12.0-16.0); Imm Gran Abs Auto 0.05 X10*3/uL (0.00-0.03); Imm Gran Pct Auto 0.8 % (0.0-0.4); Lymphocytes Absolute Auto 1.4 X10*3/uL (1.2-4.9); Mean Corpuscular HGB Conc 33.5 g/dl (31.0-35.0); Mean Corpuscular Hemoglobin 31.7 pg (27.0-33.0); Mean Corpuscular Volume 94.8 fL (80.0-98.0); NRBC Abs Auto 0.000 X10*3/uL (0.0-0.012); NRBC Pct Auto 0.0 /100WBC (0.0-0.2); Platelet Count 209 X10*3/uL (160-400); Red Blood Count 4.63 X10*6/uL (4.20-5.50); White Blood Count 6.1 X10*3/uL (4.8-10.8)
[2025-09-16 13:14] LABS: Anion Gap 9 (12-20); Blood Urea Nitrogen 14 mg/dL (9-16); Calcium 9.2 mg/dL (8.4-10.2); Carbon Dioxide 29 mmol/L (22-29); Chloride 110 mmol/L (96-108); Creatinine Clr Calc Pharmacy 87.3; Estimated Glomerular Filt Rate > 60; Potassium 3.5 mmol/L (3.3-5.1); Sodium 144 mmol/L (135-145)
[2025-09-16 13:36] LABS: Resp Syncy Virus RNA Qual PCR NEGATIVE (Negative); SARS COV2 PCR INHOUSE NEGATIVE (Negative)
--- OUTSIDE RECORDS SUMMARY | 2025-09-16 13:45 | XMS_ITS | Patient Health Record ---
Author Organization [facility] Address [facility] [address] [place] [address] Care Team Providers Care [employer] Head Inspector And Adjuster Name Role Phone ASAD LERNER Primary Care Provide r [phone] MATTHEW DAVALOS Unavailable [phone] JOLYNN SMALL Unavailable [phone] PACO DE LA VEGA Unavailable [phone] Allergies Allergen (clinical drug ingredient) Drug/Non Drug Allergy documented on EMR Reaction Allergy Type Onset Date Status Flexeril dizziness Drug Allergy Active Norflex dizziness Drug Allergy Active Results Component Value Reference Range Flag Notes CHEST-2 VIEWS Reviewed date:09/29/2024 02:40:29 PM Interpretation: Performing Lab: Notes/Report: See Below For Report [id number].Report Text See Below For Report COVID-19 ANTIGEN Reviewed date:09/29/2024 02:13:34 PM Interpretation: Performing Lab: Notes/Report: Col. Tabitha. Med. P.R. ORDER [id number] PERFORMED AT: -- Positive results indicate the presence of COVID-19 antigen, but clinical Pat. No.: [id number] [facility] [place] [place] correlation with patient history and other diagnostic information is Paid 5 Cents [facility] [address] necessary to determine infection status. Positive results do not rule out Exp: 12/08/2024 [place] [address] bacterial infection or co-infection with other viruses and do not Num: [id number] differentiate between SARS-CoV and SARS-CoV-2. DIRECTOR: JAIME SARAVIA -- Negative results, from patients with symptom onset beyond seven days, LICENSE.: [id number] CLIA: [id number] should be treated as presumptive and confirmation [...] clinical data. Col. Tabitha. Med. P.R. ORDER [id number] PERFORMED AT: Negative test results do not rule out other non-influenza viral infections Pat. No.: [id number] [facility] [place] [facility] [place] Positive test results do not identify specific influenza A virus subtypes Paid 5 Cents [address] Individuals who recieved nasally influenza A vaccine may have positive Exp: 12/08/2024 [place] [address] test results for up to three days after vaccination. Num: [id number] DIRECTOR: JAIME SARAVIA LICENSE.: [id number] CLIA: [id number] INFLUENZA A ANTIGEN POSITIVE NEGATIVE A INFLUENZA B ANTIGEN NEGATIVE NEGATIVE METHOD: STATUS COVID-19/FLU A&B CHEST-AP ONLY *1 VIEW Reviewed date:01/01/2025 08:48:19 AM Interpretation: Performing Lab: Notes/Report: See Below For Report Chest PA: [id number].Report Text See Below For Report COVID-19 ANTIGEN Reviewed date:12/28/2024 02:51:15 PM Interpretation: Performing Lab: Notes/Report: 1 KOV For in vitros Diagnostic Use Only. been [...] with a molecular assay. LICENSE.: [id number] CLIA: [id number] -- Negative results, from patients with symptom onset beyond seven days, DIRECTOR: JAIME SARAVIA differentiate between SARS-CoV and SARS-CoV-2. Num: [id number] bacterial infection or co-infection with other viruses and do not Exp: 01/08/2025 [place] [address] necessary to determine infection status. Positive results do not rule out Paid 5 Cents [address] correlation with patient history and other diagnostic information is Pat. No.: [id number] [facility] [place] [facility] [place] -- Positive results indicate the presence of COVID-19 antigen, but clinical Col. Tabitha. Med. P.R. ORDER [id number] PERFORMED AT: COVID-19 Ag NEGATIVE NEGATIVE METHOD: STATUS COVID-19/FLU A&B INFLUENZA AG A & B Reviewed date:12/28/2024 02:51:15 PM Interpretation: Performing Lab: Notes/Report: A negative test result may occur if the level of antigen in a sample is Col. Tabitha. Med. P.R. ORDER [id number] PERFORMED AT: below the detection limit of the test. Pat. No.: [id number] [facility] [place] [facility] [place] Test results must be evaluated in conjunction with other clinical data. Paid 5 Cents [address] Negative test results do not rule out other non-influenza viral infections Exp: 01/08/2025 [place] [address] Positive test results do not identify specific influenza A virus subtypes Num: [id number] Individuals who recieved nasally influenza A vaccine may have positive DIRECTOR: JAIME SARAVIA test results for up to three days after vaccination. LICENSE.: 1369 CLIA: [id number] INFLUENZA A ANTIGEN NEGATIVE NEGATIVE INFLUENZA B ANTIGEN NEGATIVE NEGATIVE METHOD: STATUS COVID-19/FLU A&B CBC + DIFF Reviewed date:12/28/2024 02:51:15 PM Interpretation: Performing Lab: Notes/Report: LICENSE.: 1369 CLIA: [id number] DIRECTOR: JAIME SARAVIA Num: [id number] Exp: 01/08/2025 [place] [address] Paid 5 Cents [address] Pat. No.: [id number] [facility] [place] [facility] [place] Col. Tabitha. Med. P.R. ORDER [id number] PERFORMED AT: CBC WHITE BLOOD COUNT 7.0 [...] BY: DxH 560 1 MAYANK RBC MORPHOLOGY Reason For Referral No Information Medications Medication [...] a day; Duration: 30 day(s) 07/21/2018 Active Ifgssktm-Lgteoigud-ET 1 % Solution 4 drops into affected ear RIGHT EAR Otic Three times a day; Duration: 7 days 01/12/2019 Active Immunizations Vaccine Route Administration Date Status Comme nts .Prevnar 13 Unknown 11/12/2018 Pending DTaP Unknown 11/12/2018 Pending Fluarix Unknown 07/13/2013 Administered Deltoid, rig ht; Influenza (split), seasonal, intradermal, preservative free Unknown 02/09/2019 Pending Pneumococcal conjugate PCV 13 Unknown 02/09/2019 Pending Pneumococcal polysaccharide PPV23 Unknown 07/13/2013 Administered Deltoid, left; Tdap For Adolescent and Adult Use Unknown 02/09/2019 Pending DTaP Unknown 07/21/2018 Pending Influenza (split), seasonal, intradermal, preservative free Unknown 11/12/2018 Pending Social History Tobacco Use: Social History [...] 14 alicea No Simmons viajado fuera de [place] o simmons estado en contacto con alguien que haya estado fuera de [place] en los pasados 14 alicea No Se [...] History documented TAMARA NOBLES RN. BSN Lic. [id number], SHARDA M 09/29/2024 11:15:44 AM > Problems Problem Type SNOMED Code ICD Code Onset Dates Problem Status W/U Status Risk Notes Problem Essential hypertension (49725841) Essential (primary) hypertension (I10) Active confirmed Essential (primary) hypertension Problem Chronic pain (71330209) Other chronic pain (G89.29) Active confirmed Problem Postmenopausal bleeding (92492969) Postmenopausal bleeding (N95.0) Active confirmed Problem Hyperglycemia due to type 2 diabetes mellitus (182560355748985) Controlled type 2 diabetes mellitus with hyperglycemia, without long-term current use of insulin (E11.65) Active confirmed Problem Acute severe exacerbation of mild persistent asthma (disorder) (118205614) Mild persistent asthma with acute exacerbation (J45.31) Active confirmed Problem Rheumatoid arthritis (14057317) Rheumatoid arthritis involving multiple sites with positive rheumatoid factor (M05.79) Active confirmed Problem Body mass index 30.00 to 34.99 (949666957531112) Body mass index (BMI) of 33.0 to 33.9 in adult (Z68.33) Active confirmed Problem Type II diabetes mellitus without complication (294564312) Controlled diabetes mellitus (E11.9) Active confirmed Problem Rheumatoid arthritis (56703978) Rheumatoid arthritis involving multiple sites, unspecified rheumatoid factor presence (M06.9) Active confirmed Problem Diabetes mellitus type 2 (51470111) Diabetes mellitus type 2, uncontrolled (E11.65) Active confirmed Problem Morbid obesity (364171356) Morbid obesity (E66.01) Active confirmed Problem Mild intermittent asthma (730528585) Asthma, intermittent, uncomplicated (J45.20) Active confirmed Problem Body mass index 40+ - morbidly obese (089356849) BMI 40.0-44.9, adult (Z68.41) Active confirmed Problem Herpes simplex labialis (9537767) 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 Lic.[id number], CELESTINE Anderson 08/16/2025 10:52:36 AM > TAMARA MCDONALD RN.BSN Lic.93428, JIM 08/16/2025 12:52:04 PM > Se realiza reestimado de dolor, paciente refiere intensidad 0 en la escala de valoracion del dolor. Temperature 36.8 C 08/16/2025 WAGGONER COLON [employer]PER[employer]. Lic.11931, BETSABEE A 08/16/2025 10:52:36 AM > MCDONALD MCDONALD RN.BSN Lic.74755, JIM 08/16/2025 12:52:04 PM > Se realiza reestimado de dolor, paciente refiere intensidad 0 en la escala de valoracion del dolor. Respiratory Rate 20 /min 08/16/2025 WAGGONER COLO N [employer]PERVISOR [employer]. Lic.74553, BETSABEE A 08/16/2025 10:52:36 AM > MCDONALD MCDONALD RN.BSN Lic.86471, JIM 08/16/2025 12:52:04 PM > Se realiza reestimado de dolor, paciente refiere intensidad 0 en la escala de valoracion del dolor. Blood pressure diastolic 68 mm Hg 08/16/2025 DIANE LES COLON [employer]PER[employer]. Lic.54532, BETSABEE A 08/16/2025 10:52:36 AM > MCDONALD MCDONALD RN.BSN Lic.96575, JIM 08/16/2025 12:52:04 PM > Se realiza reestimado de dolor, paciente refiere intensidad 0 en la escala de valoracion del dolor. Oximetry 98 % 08/16/2025 WAGGONER [employer]ON [employer]. Lic.68102, BETSABEE A 08/16/2025 10:52:36 AM > MCDONALD MCDONALD RN.BSN Lic.86400, JIM 08/16/2025 12:52:04 PM > Se realiza reestimado de dolor, paciente refiere intensidad 0 en la escala de valoracion del dolor. Height-cm 154.94 cm 08/16/2025 WAGGONER [employer]ON [employer]. Lic.44844, BETSABEE A 08/16/2025 10:52:36 AM > MCDONALD MCDONALD RN.BSN Lic.50129, JIM 08/16/2025 12:52:04 PM > Se realiza reestimado de dolor, paciente refiere intensidad 0 en la escala de valoracion del dolor. Weight-kg 96.62 kg 08/16/2025 WAGGONER [employer]ON [employer]. Lic.13962, BETSABEE A 08/16/2025 10:52:36 AM > MCDONALD MCDONALD RN.BSN Lic.70889, JIM 08/16/2025 12:52:04 PM > Se realiza reestimado de dolor, paciente refiere intensidad 0 en la escala de valoracion del dolor. Height 61 in 08/16/2025 WAGGONER COLON SUPER[employer]. Lic.66985, BETSABEE A 08/16/2025 10:52:36 AM > MCDONALD MCDONALD RN.BSN Lic.01191, JIM 08/16/2025 12:52:04 PM > Se realiza reestimado de dolor, paciente refiere intensidad 0 en la escala de valoracion del dolor. Blood pressure systolic 165 mm Hg 08/16/2025 DIANEL JEFF COLON [employer]PER[employer]. Lic.39993, BETSABEE A 08/16/2025 10:52:36 AM > MCDONALD MCDONALD RN.BSN Lic.34970, JIM 08/16/2025 12:52:04 PM > Se realiza reestimado de dolor, paciente refiere intensidad 0 en la escala de valoracion del dolor. Weight 213 lbs 08/16/2025 WAGGONER [employer]ON [employer]. Lic.54415, BETSABEE A 08/16/2025 10:52:36 AM > MCDONALD MCDONALD RN.BSN Lic.77487, JIM 08/16/2025 12:52:04 PM > Se realiza reestimado de dolor, paciente refiere intensidad 0 en la escala de valoracion del dolor. BMI 40.24 kg/m2 08/16/2025 WAGGONER [employer]. Lic.85399, CARMINEDEACON A 08/16/2025 10:52:36 AM > TAMARA MCDONALD RN.BSN Lic.96638, JIM 08/16/2025 12:52:04 PM > Se realiza reestimado de dolor, paciente refiere intensidad 0 en la escala de valoracion del dolor. Encounters Encounter Location Date Provider Diagnosis [facility] [address] [place] [id number] 12/28/2024 PACO GUZMÁNSHANTAL MARQUEZRERO Cough R05.9 ; Low back pain M54.50 and Asthma exacerbation J45.901 [facility] [place] [address] [place], [place] [id number] 09/29/2024 JOLYNN MEZA FRANCO URTI (acute upper respiratory infection) J06.9 ; Influenza A J10.1 and Acute cough R05.1 [facility] [place] [address] [place], [place] [id number] 08/16/2025 MATTHEW DAVALOS Active asthma J45.909 Assessments Encounter Date Diagnosis (ICD Code) Assessment Notes Treatment Notes Treatment Clinical Notes Section Notes 12/28/2024 Cough (ICD-10 - R05.9) 1) TUSSIN 10 ML PO 2) TQUQPPH80 MG IV 3) SOLUMEDROL 125 M GIV 4) ALBUTEROL 0.083 + ATROVENT 0.02 BY PN ONCE PACO [place] A 12/28/2024 12:50:51 PM > CÉSAR BARBA. SUPERVISOR [employer]ING Lic. [id number], GENE 12/28/2024 12:57:44 PM > Moreno velarde. CÉSAR OSBORNE RN BSN Lic. [id number], GENE 12/28/2024 12:57:44 PM > CÉSAR OSBORNE RN BSN Lic. [id number], GENE 12/28/2024 01:10:58 PM > Se recibe [...] 0.083% + Atrovent 0.02 10/11. CÉSAR BARBA. SUPERVIS[employer] Lic. [id number], GENE 12/28/2024 01:10:58 PM > CÉSAR BARBA. CÉSAR BARBA. SUPERVIS[employer] Lic. [id number], GENE 12/28/2024 02:10:54 PM > Paciente es [...] 0 al momento del renato. CÉSAR BARBA. SUPERVISOR [employer] SHE[employer]ING Lic. [id number], GENE 12/28/2024 02:10:55 PM > 12/28/2024 Low [...] J45.901) 09/29/2024 Jeffery ALVAREZ RN, BSN LIC. [id number], NATHANIEL M 09/29/2024 01:25:28 PM > Se [...] refiere entender. DYLAN ALVAREZ RN, BSN LIC. [id number], [facility] 09/29/2024 01:25:29 PM > MIKIE SAM RN BSN, Lic. [id number] 09/29/2024 02:00:01 PM > Se recibe llamada del laboratorio de la Lcda. Santi Barillas reportando influenza A positivo; se le notifica al Dr. Meza. MIKIE SAM [employer]PER[employer], Lic. [id number], [place] 09/29/2024 02:00:02 PM > DYLAN ALVAREZ RN, BSN LIC. [id number], [facility] 09/29/2024 02:44:16 PM > Paciente es [...] del renato. DYLAN ALVAREZ RN, BSN LIC. [id number], [facility] 09/29/2024 02:44:27 PM > 08/16/2025 Other GIVENS LOPEZ BSN Lic. [id number] 08/16/2025 11:21:53 AM > Se ubica paciente [...] refiere entender. CHON LOPEZ RN. BSN Lic. [id number], [place] 08/16/2025 11:21:53 AM > CHON LOPEZ RN. BSN Lic. [id number], [facility] 08/16/2025 11:56:26 AM > Se observa paciente con segunda terapia respiratoria ordenada por medico de turno. CHON LOPEZ RN. BSN Lic. [id number], [place] 08/16/2025 11:56:30 AM > TAMARA MCDONALD RN BSN. Lic.[id number] 08/16/2025 12:20:21 PM > Se observa paciente con tercera terapia respiratoria ordenada por Dr. Davalos. TAMARA MCDONALD RN BSN. Lic.50237, RIKI 08/16/2025 12:20:44 PM > TAMARA MCDONALD RN.BSN Lic.[id number] 08/16/2025 12:52:21 PM > Paciente es dado [...] al momento del renato. TAMARA MCDONALD RN.BSN Lic.02841, JIM 08/16/2025 12:52:26 PM > MATTHEW DAVALOS [...] Insured Coverage Start Date Coverage End Date [facility] [address] [phone] [id number] Laura Beckman Self - patient is the insured 4 5 MEDICARE [address] [address] [place], [place] [id number] Laura Beckman Self - patient is the insured 5 Medical (General) History Medical History History ICD Code ARTRITIS REUMATOIDEA DIABETICA ASMA RENATO PRESION Surgical History Surgery Date(Month/Year) cholecystectomy
[2025-09-16 14:48] VITALS: BP 147/70; PULSE 74; RESP 19; TEMP 36.6; O2SAT 97
[2025-09-16] MEDS: diazePAM 10 MG/2 ML CARTRIDGE 2.5 MG IVPUSH (15:04)
[2025-09-16 16:53] VITALS: BP 152/70; PULSE 66; RESP 16; TEMP 36.7; O2SAT 98
[2025-09-16] MEDS: oxyCODONE HCl Immed Release 5 MG TABLET PO (16:53)
[2025-09-16 17:55] VITALS: BP 148/72; PULSE 65; RESP 18; TEMP 36.6; O2SAT 98
[2025-09-16 18:05] VITALS: BP 148/72; PULSE 65; RESP 18; TEMP 36.6; O2SAT 98
== END 2025-09-16 18:06 | disposition home or self-care (01) ==
PROVIDERS: Physician Assistant; Emergency Provider Emergency Medicine; PCP Internal Medicine
DX: S16.1XXA Strain of muscle, fascia and tendon at neck level, initial encounter (principal); X58.XXXA Exposure to other specified factors, initial encounter; M54.2 Cervicalgia; I10 Essential (primary) hypertension; E78.5 Hyperlipidemia, unspecified; E11.9 Type 2 diabetes mellitus without complications; Z03.818 Encounter for observation for suspected exposure to other biological agents ruled out; Y93.9 Activity, unspecified; Y92.9 Unspecified place or not applicable; Y99.9 Unspecified external cause status
CPT/HCPCS: 36415; 80048; 85025; 87637; 96374; 96375; 99284; J1885; J3360

== ENCOUNTER 2025-09-20 13:03 | Outpatient (AMB) | payer MEDICARE, MEDICAID, SELFPAY ==
--- NOTE | 2025-09-20 13:06 | MHC.OFFVIS ---
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 She was last seen in July of the previous year for neck pain, upper back pain, and bilateral hand weakness, which are ongoing symptoms. A prior thoracic MRI revealed advanced changes in the lower cervical spine from C5-T1, including a right paracentral disc extrusion at C7-T1 causing compression and deformation of the spinal cord. A follow-up cervical spine MRI was recommended and attempted but was canceled as patient was in [place]. A referral was made to Neurosurgery at that time. A more recent cervical spine X-ray from June of this year showed cervical spondylosis at C5-C6 and C6-C7 with grade 1 retrolisthesis at C5-C6. The patient spent most of the last year in [place] and noted that the warmer weather improved her neck and back pain. Her pain management at home includes heating patches and Celebrex, which provides some relief. She previously tried gabapentin but discontinued it due to stomach upset. Past medical history is significant for rheumatoid arthritis, for which she receives Orencia injections, and diabetes. A bone scan in 2022 was normal. Pain Description - Location: Neck pain, greater on the right side. - Radiation: Pain radiates into the arms, predominantly on the right. - Quality: Described as a aching, sharp, cramping, pulling, tingling, burning and electric-like sensation. - Associated Symptoms: Numbness, tingling, and weakness in both hands. - Exacerbating Factors: Neck movements, particularly rotation and flexion. - Relieving Factors: Warm weather, heating patches, and Celebrex provide some relief. Pain Management - Analgesia: The patient uses Celebrex, which offers some relief. - Non-pharmacologic: The patient has tried heating patches, although they do not work well. - Adverse Effects: The patient experienced stomach upset with gabapentin. - Activities of Daily Living: The pain does not wake her up from sleep. [facility] Medical History Urinary tract infection Bronchitis Morbid obesity with BMI of 45.0-49.9, adult Sacroiliitis Rheumatic fever TIA (transient ischemic attack) Right-sided back pain History of COVID-19 Asthma exacerbation Hospital discharge follow-up Sacroiliitis Renal calculi Costovertebral angle tenderness Burning with urination Disc degeneration, lumbar Spondylosis of cervical spine Spondylosis of lumbar spine Pleuritic pain Restrictive lung disease Morbid obesity Asthma Dyslipidemia Essential hypertension Vaginal modesta Seropositive rheumatoid arthritis Rheumatoid arthritis Diabetes Surgical History History of cholecystectomy Hx of colonoscopy (09/01/19) History of surgery on wrist Family History Father Diabetes mellitus Myocardial infarction Hypertension CVD (cardiovascular disease) Mother Diabetes mellitus CVD (cardiovascular disease) Sister No problems noted. Son No problems noted. Son No problems noted. Son No problems noted. Daughter Thyroiditis Daughter No problems noted. Daughter No problems noted. Daughter No problems noted. Daughter No problems noted. Other Asthma exacerbation Social History Housing: Apartment Alcohol intake: never Patient Tobacco Use Status: Never used Tobacco e-Cigarette/Vaping Use: Never Used Second Hand Smoke Exposure: No service: No Current occupational status: disabled Sexual orientation: Straight/Heterosexual Gender identity: Female Cognitive needs: No Hearing needs: No Vision needs: No Female Reproductive History Menstrual Age of Menarche: 11 Date of menopause: 01/22/10 Review of Systems Narrative - Musculoskeletal: Reports chronic neck and back pain, which improved in warm weather. - Neurological: Reports bilateral hand weakness, numbness, tingling, and a burning, electric-like sensation in the arms, worse on the right. - Gastrointestinal: Reports stomach upset with gabapentin. Const All systems reviewed & are unremarkable except as noted in HPI and below Physical Exam Vital Signs: Last Vital Signs Pulse 73 09/20/25 13:11 BP 195/93 H 09/20/25 13:11 Pulse Ox 98 09/20/25 13:11 Oxygen Delivery Method Room Air 09/20/25 13:11 BMI result Body Mass Index 42.2 General: Appears afebrile. Alert and oriented. Mood and affect appropriate. Follows and participates in conversation appropriately. Respiratory effort is unlabored. Non productive cough. Able to transition from sit to stand unassisted. Uses cane with ambulation. Ambulates with antalgic gait, mild limping. Neck Other: Patient with decreased cervical ROM in all planes/especially with right lateral rotation and bending. Reports increased moderate pain with cervical flexion and mild pain with extension. Spurling compression test equivocal. Elvey's tension test positive on the right, with radiation of pain from neck to right wrist and 4-5th fingers with paresthesias and weakness of 5th finger. Lhermitte's test was negative. DTR diminished. Patient demonstrated 5/5 left and 4/5 right motor strength of bilateral upper extremities. 2 + radial pulses. No paravertebral tenderness over facet joints bilaterally. Neck: Yes normal visual inspection, Yes no lymphadenopathy, Yes supple, No anterior neck swelling, Yes no JVD, No prominent supraclavicular fat pad and Yes prominent dorsocervical fat pad Resp Effort & Inspection: normal respiratory effort, able to speak in complete sentences, normal respiratory pattern, no cough, no respiratory distress and symmetric chest movement Back/Spine/Pelvis Cervical Spine: loss of normal cervical lordosis, cervical muscular tenderness, pain with cervical ROM, cervical spasm, No Cervical spine tenderness and No step off deformity Thoracic/Lumbar Spine: thoracic and lumbar spine normal to inspection, pain with thoraco-lumbar ROM, thoraco-lumbar ROM limited, No thoracic spinal tenderness and No lumbar spinal tenderness Results Reviewed Results Reviewed: MR SPINE THORACIC without CONTRAST 07/13/24 INDICATION: Right sided upper back pain starts at the beginning of the rib cage. TECHNIQUE: Unenhanced multiplanar, multisequence MR imaging of the thoracic spine. COMPARISON: None Available. FINDINGS: Normal alignment is demonstrated. Vertebral heights are well maintained. Bone marrow signal is within normal limits, and no suspicious osseous lesion is identified. Prevertebral and paraspinal soft tissues are within normal limits. There are prominent anterior marginal osteophytes in lower thoracic spine. Greater at T11-12. Thoracic cord demonstrates normal course, caliber, and signal characteristics. No epidural fluid collection or hematoma is identified. No significant central canal stenosis is identified. Neural foramina are patent throughout. Visualized chest and abdomen are grossly unremarkable. There are advanced in changes of the lower cervical spine. There is disc protrusion at C5-6, C6-7 and C7-T1. At C7-T1, right paracentral disc extrusion which compresses and deforms the cord at this level. At L2-3, there is mild annular disc bulge which contributes to mild central canal stenosis and moderate bilateral neural foraminal stenosis. There is hemangioma in the L2 vertebral body. IMPRESSION: Advanced degenerative changes of the lower cervical spine with right paracentral disc extrusion at C7-T1 compresses the right hemicord. Findings also demonstrated at C5-6 and C6-7. Recommend MRI of the cervical spine for further evaluation. No other significant degenerative changes of the thoracic spine. XR THORACIC SPINE 02/04/24 CLINICAL INFORMATION: Radiculopathy, thoracic region FINDINGS: There are small riblets extending off the T12 vertebral body. There is no fracture or bone destruction there is mild kyphosis There is multilevel disc space narrowing. There is no abnormality of the paraspinal soft tissues. Incidental note is made of degenerative disc disease in the lower cervical spine. IMPRESSION: 1. Mild kyphosis. 2. Multilevel degenerative disc disease. 3. Degenerative disc disease in the lower cervical spine. MR LUMBAR SPINE WITHOUT CONTRAST 08/23/23 CLINICAL INFORMATION: Vertebrogenic back pain. COMPARISON: Lumbar spine MRI 08/11/2022. TECHNIQUE: MRI of the lumbar spine was obtained using routine sequences without contrast. FINDINGS: There is transitional spinal anatomy at the lumbosacral junction with a subdural sacralization of the L5 vertebral segment. The lowest rib-bearing vertebral segment will be designated T12. There is grade 1 anterolisthesis of L4 on L5. Alignment is otherwise normal. Vertebral heights are preserved. No acute bone marrow signal changes. There are mixed degenerative endplate changes at multiple levels. There is loss of intervertebral disc height and T2 signal intensity at L3-L4 and L4-L5. There is disc desiccation at multiple additional levels without substantial loss of intervertebral disc height. The tip of the conus medullaris is located at L1. No mass effect on the conus. Visualized distal cord signal intensity is normal. At T12-L1 the annular contour is normal. No canal or neuroforaminal compromise. At L1-L2 there is a slightly bulging disc. Bilateral facet degenerative change. No canal stenosis. No mass effect on the traversing or foraminal nerve roots. At L2-L3 there is a bulging disc. Bilateral facet degenerative change. Moderate canal stenosis. No mass effect on the traversing or foraminal nerve roots. At L3-L4 there is a diffusely bulging disc. Bilateral facet degenerative change. Moderate canal stenosis. Mild mass effect on the right L3 foraminal nerve root. At L4-L5 there is a bulging disc. Bilateral facet degenerative change. Moderate canal stenosis. Subarticular zone narrowing causes abutment of both traversing L5 nerve roots. No foraminal nerve root compression. At L5-S1 there is no canal or neuroforaminal compromise. Limited visualization the retroperitoneal anatomy reveals no abnormal finding. Psoas and paraspinal muscle groups are symmetric. IMPRESSION: There is transitional spinal anatomy at the lumbosacral junction with partial sacralization of the L5 vertebral segment. The lowest rib-bearing vertebral segment will be designated T12. There is multilevel degenerative spondylosis of the lumbar spine with grade 1 anterolisthesis of L4 on L5 related to facet degenerative changes at this level. Moderate canal stenosis at L2-L3, L3-L4, and L4-L5. A bulging disc in conjunction with facet degenerative change at L3-L4 causes mild mass effect on the right L3 foraminal nerve root. There is also abutment of both traversing L5 nerve roots related to degenerative changes at L4-L5. CT/CT chest w IV con 02/17/23 OSSEOUS STRUCTURES: Degenerative changes of the spine. IMPRESSION: Stable 6 mm right pulmonary nodule adjacent to the minor fissure probably representing a subpleural lymph node. Question mild interstitial lung disease. XR CERVICAL SPINE 07/06/25 CLINICAL INFORMATION: NECK PAIN, RA COMPARISON: January 07, 2021. TECHNIQUE: AP, lateral, atlantoodontoid views. FINDINGS: Craniocervical junction is intact. Endplate sclerosis and small marginal osteophyte formation with decreased intervertebral disc height at C5-6 and C6-7 levels. 2 mm retrolisthesis C5-6. No lytic or blastic lesions. No acute cortical disruption. IMPRESSION: Cervical spondylosis C5-6 and C6-7 with a grade 1 retrolisthesis at C5-6. Assessment & Plan Assessment & Plan (1) Spondylosis of cervical spine: Code(s): M47.812 - Spondylosis without myelopathy or radiculopathy, cervical region Category: Medical (2) Thoracic spine pain: Comment: CHRONIC BACK PAIN AND NOW MORE CONFINED TO THE RIGHT CHEST WALL, IS PROBABLY RELATED TO CHRONIC DEGENERATIVE ARTHRITIS OF THE SPINE Code(s): M54.6 - Pain in thoracic spine Category: Medical (3) Cervical disc disorder with radiculopathy of cervicothoracic region: Code(s): M50.13 - Cervical disc disorder with radiculopathy, cervicothoracic region Category: Medical (4) Cervical disc herniation: Code(s): M50.20 - Other cervical disc displacement, unspecified cervical region Category: Medical (5) Spondylolisthesis, cervical region: Code(s): M43.12 - Spondylolisthesis, cervical region Category: Medical Plan A cervical spine MRI will be ordered to further evaluate the patient's cervical pathology, particularly the previously noted disc herniation, degenerative changes with slippage and its current status. The patient will continue to manage her symptoms with Celebrex and heating pads as tolerated. All questions and concerns have been answered and patient agreed with the treatment plan. Follow up for RI results and sooner as needed. Patient was informed and verbally consented to the use of an ambient scribe for clinic note documentation during this visit. Orders: Orders MR cervical spine wo con Today M43.12 - Spondylolisthesis, cervical region, M47.812 - Spondylosis without myelopathy or radiculopathy, cervical region, M50.13 - Cervical disc disorder with radiculopathy, cervicothoracic region, M50.20 - Other cervical disc displacement, unspecified cervical region, M54.6 - Pain in thoracic spine Coding Level of Care Code Est Pt Level 4 (58745) Diagnoses Spondylosis of cervical spine M47.812 Thoracic spine pain M54.6 Cervical disc disorder with radiculopathy of cervicothoracic region M50.13 Cervical disc herniation M50.20 Spondylolisthesis, cervical region M43.12
[2025-09-20 13:11] VITALS: BP 195/93; PULSE 73; O2SAT 98; BMI 42.2
== END 2025-09-20 13:30 | disposition home or self-care (01) ==
PROVIDERS: PCP Internal Medicine; Visit Provider Nurse Practitioner Family
DX: M47.812 Spondylosis without myelopathy or radiculopathy, cervical region (principal); M54.6 Pain in thoracic spine; M50.13 Cervical disc disorder with radiculopathy, cervicothoracic region; M50.20 Other cervical disc displacement, unspecified cervical region; M43.12 Spondylolisthesis, cervical region
CPT/HCPCS: 99214

== ENCOUNTER → 2025-09-20 13:03 | Outpatient (BNVA) | payer MEDICARE, MEDICAID, SELFPAY | PROVIDERS: PCP Internal Medicine; Visit Provider Nurse Practitioner Family | DX: M47.812 Spondylosis without myelopathy or radiculopathy, cervical region (principal); M54.6 Pain in thoracic spine; M50.13 Cervical disc disorder with radiculopathy, cervicothoracic region; M50.20 Other cervical disc displacement, unspecified cervical region; M43.12 Spondylolisthesis, cervical region | CPT/HCPCS: 99212 ==

== ENCOUNTER 2025-10-01 10:29 | Emergency (ER) | payer MEDICARE, MEDICAID, SELFPAY ==
[2025-10-01 10:35] VITALS: BP 104/73; PULSE 76; RESP 16; TEMP 36.1; O2SAT 98; BMI 40.9
--- NOTE | 2025-10-01 10:42 | ED.GENADULT ---
HPI - General Adult General Chief complaint: General Medical Stated complaint: Bump On Ride Side Of Mouth Time Seen by Provider: 10/01/25 10:42 Source: patient Mode of arrival: ambulatory Limitations: no limitations History of Present Illness ED Provider: Víctor Sullivan HPI narrative: 65 yold female with pmh of DM Presents to the ED for right upper lip painful lesions. patient states week prior she had URI symtoms including coughing, fever, chills, phelghm while coughing that resolved. patient states not sexually active. patient denies any chest pain or shortness of breath. Related Data Home Medications ?Medication ?Instructions ?Recorded ?Confirmed blood pressure test kit-large #1 ea 06/02/24 07/13/25 atorvastatin 10 mg tablet 10 mg PO DAILY 06/25/25 07/13/25 Previous Rx's ?Medication ?Instructions ?Recorded albuterol sulfate 90 mcg/actuation 2 inh PO Q4H PRN shortness of 08/13/20 aerosol inhaler breath or wheezing #8.5 grams docusate sodium 100 mg capsule 100 mg PO BID #30 caps 12/07/22 (Col-Rite) blood sugar diagnostic (FreeStyle #50 ea 02/10/23 Lite Strips) blood-glucose meter (FreeStyle #1 ea 02/10/23 Lite Meter kit) lancets 28 gauge (FreeStyle #100 ea 02/10/23 Lancets) cock up splint #1 ea 03/03/23 blood pressure monitor #1 ea 02/07/24 sennosides 8.6 mg tablet (senna) 8.6 mg PO BEDTIME PRN constipation 04/20/24 7 days #7 tabs meclizine 50 mg tablet 50 mg PO DAILY PRN motion sickness 04/23/24 #14 tabs gabapentin 300 mg capsule 300 mg PO TID pain 30 days #90 caps 07/06/24 fluticasone propionate 110 2 puff inhalation BID Asthma/Cough 01/18/25 mcg/actuation HFA aerosol inhaler 30 days #12 grams ipratropium 0.5 mg-albuterol 3 mg 3 ml inhalation Q6H PRN wheezing 02/09/25 (2.5 mg base)/3 mL nebulization #180 mL soln dulaglutide 1.5 mg/0.5 mL 1.5 mg (0.5 mL) subcut QWEEK 4 03/06/25 subcutaneous pen injector weeks #2 mL (Trulicity) acetaminophen 500 mg capsule 1,000 mg (2 x 500 mg) PO Q8H PRN 03/13/25 fever or pain #14 caps tramadol 50 mg tablet 50 mg PO Q8H PRN pain #12 tabs 03/13/25 bisacodyl 5 mg tablet,delayed 10 mg (2 x 5 mg) PO .daily 90 days 04/02/25 release #180 tabs polyethylene glycol 3350 17 17 g PO DAILY #238 grams 04/02/25 gram/dose oral powder (Miralax) ondansetron 4 mg disintegrating 4 mg PO Q6H PRN nausea and 04/04/25 tablet vomiting #10 tabs sucralfate 1 gram tablet 1 g PO TID PRN Upper abdominal 04/04/25 pain #60 tabs cholestyramine 4 gram oral powder 4 g PO BID PRN diarrhea 30 days 04/12/25 (Cholestyramine Light) #210 grams losartan 100 mg tablet 100 mg PO DAILY hypertension 30 04/12/25 days #30 tabs pioglitazone 30 mg tablet 30 mg PO DAILY 90 days #90 tabs 04/12/25 dicyclomine 20 mg tablet 20 mg PO TID PRN abdominal pain 30 05/07/25 days #90 tabs salmeterol 50 mcg/dose blister 1 inh inhalation BID 30 days #60 ea 05/08/25 powder for inhalation (Serevent Diskus) amlodipine 10 mg tablet 10 mg PO DAILY #90 tabs 06/14/25 losartan 100 mg tablet 100 mg PO DAILY #90 tabs 06/14/25 Orencia ClickJect 125 mg/mL 125 mg subcut QWEEK #4 mL 06/29/25 subcutaneous auto-injector (abatacept) lidocaine 5 % topical patch 1 patch topical DAILY #30 ea 07/13/25 ketoconazole 2 % topical cream 1 appl topical BID 1 week #30 grams 09/01/25 lidocaine 5 % topical patch 1 patch topical DAILY #15 ea 09/16/25 methocarbamol 500 mg tablet 1,000 mg (2 x 500 mg) PO TID #18 09/16/25 tabs omeprazole 20 mg capsule,delayed 20 mg PO BID 90 days #180 caps 09/26/25 release valacyclovir 1 gram tablet 2,000 mg (2 x 1 gram) PO BID 1 day 10/01/25 #4 tabs Allergies Allergy/AdvReac Type Severity Reaction Status Date / Time cyclobenzaprine (From Allergy Intermediate Dizziness Verified 10/01/25 10:41 Flexeril) orphenadrine (From Norflex) Allergy Intermediate Dizziness Verified 10/01/25 10:41 sarilumab (From Kevzara) Allergy Intermediate Rash Verified 10/01/25 10:41 Review of Systems Review of Systems: right upper lip lesions Yes all other systems are reviewed and are negative [facility] Past Medical History Medical History Urinary tract infection Bronchitis Morbid obesity with BMI of 45.0-49.9, adult Sacroiliitis Rheumatic fever TIA (transient ischemic attack) Right-sided back pain History of COVID-19 Asthma exacerbation Hospital discharge follow-up Sacroiliitis Renal calculi Costovertebral angle tenderness Burning with urination Disc degeneration, lumbar Spondylosis of cervical spine Spondylosis of lumbar spine Pleuritic pain Restrictive lung disease Morbid obesity Asthma Dyslipidemia Essential hypertension Vaginal modesta Seropositive rheumatoid arthritis Rheumatoid arthritis Diabetes Surgical History History of cholecystectomy Hx of colonoscopy (09/01/19) History of surgery on wrist Family History Family History Father Diabetes mellitus Myocardial infarction Hypertension CVD (cardiovascular disease) Mother Diabetes mellitus CVD (cardiovascular disease) Sister No problems noted. Son No problems noted. Son No problems noted. Son No problems noted. Daughter Thyroiditis Daughter No problems noted. Daughter No problems noted. Daughter No problems noted. Daughter No problems noted. Other Asthma exacerbation Social History Social History Housing: Apartment Alcohol intake: never Patient Tobacco Use Status: Never used Tobacco e-Cigarette/Vaping Use: Never Used Second Hand Smoke Exposure: No Advance Directives: No Advance Directives Information Provided: Yes service: No Current occupational status: disabled Sexual orientation: Straight/Heterosexual Gender identity: Female Cognitive needs: No Hearing needs: No Vision needs: No Physical Exam ED Vital Signs: Vital Signs - 24 hr 10/01/25 10:35 Temperature 96.9 F Pulse Rate 76 Respiratory Rate 16 Blood Pressure 104/73 Pulse Oximetry 98 Oxygen Delivery Method Room Air BMI result Body Mass Index 40.9 Const General: cooperative, healthy appearing, comfortable, no acute distress, well developed, alert and awake Orientation/consciousness: patient oriented x3 [facility] Head: Yes normal to inspection, Yes No palpable skull fracture present, Yes normocephalic and Yes atraumatic Ears: hearing grossly normal bilaterally, external ears normal, TM's normal bilaterally, TM normal on the right, TM normal on the left, EAC's normal, mastoids normal and no periauricular adenopathy Face images:  1. positive for vesicular lesions. negative for ecchyomsis, lacerations, deformation, impetigo, or crepotus Throat: Yes posterior oropharynx normal, Yes tonsils normal and Yes uvula midline Eyes General: appearance normal, both eyes and all related structures Neck Neck: Yes normal visual inspection, Yes full ROM, Yes no lymphadenopathy, Yes no meningeal signs, Yes trachea midline, Yes supple, No anterior neck swelling and No tender Chest Chest palpation & inspection: normal inspection of the chest and normal palpation of entire chest wall Resp Effort & Inspection: normal respiratory effort and able to speak in complete sentences Auscultation: clear to auscultation bilaterally Cardio Jugular venous distension: no JVD Heart sounds: S1 normal heart sound present and S2 normal heart sound present GI Inspection: Yes normal to inspection Palpation (GI): Soft to palpation, not firm, nontender, no guarding and not rigid General: Yes no CVA tenderness Back/Spine/Pelvis Back: no CVA tenderness and No back tenderness Skin General skin exam: no rashes or lesions noted, elasticity normal and turgor normal Neuro General: patient oriented x3, gait normal, tone normal, moves all extremities, Normal light touch and pain sensation, no meningeal signs, no focal motor deficits, CN's II-XI intact bilaterally and normal sensation to monofilament Extrem General: Yes normal to inspection, Yes full ROM and Yes capillary refill normal Psych Appearance: grossly normal, well kempt and not disheveled Medical Decision Making Medical Decision Making MDM Narrative: 65-year-old female history of diabetes nonalcoholic fatty liver disease presents to ED for right upper live painful lesions that began yesterday. Patient states she was sick a week prior described as coughing phlegm and body aches. Patient is presently states those symptoms are resolving. Patient denies any shortness the cough shortness of breath. Patient denies any recent sexual activity. Exam indicate cold sore herpes type 1 family. Patient is educated on worrisome signs informed return to the ED immediately. not suspecting anyphylaxis, cellulitits, abscess, or any other life threatening etiology. Differential Diagnosis Differential Diagnoses: The differential diagnosis associated with the presentation includes (Impetigo, herpes virus cold sore, cellulitis) Admission/Observation Consideration of admission/observation: Escalation of care including admission/observation considered Independent Historian Clinical information obtained from an independent historian. History obtained from or confirmed by: Other (patient and son) Prescription Management I considered prescription management with: Antiviral Discharge Plan Discharge Clinical Impression: Cold sore Patient Disposition: Home, Self-Care Instructions: Oral Herpes Infection (ED) Additional Instructions: Recommend follow-up with primary care provider. Return to the ED immediately for worsening painful lesion upper lip, swelling, worsening redness, lesions elsewhere on the face on body, intractable fever, weakness, chills, or any other concerning symptoms. Over the counter abreva can be used on lip for relief Prescriptions: New valacyclovir 1 gram tablet 2,000 mg PO BID 1 Days Qty: 4 0RF No Action albuterol sulfate 90 mcg/actuation HFA aerosol inhaler 2 inh PO Q4H PRN (Reason: shortness of breath or wheezing) Qty: 8.5 1RF (DME) FreeStyle Lite Strips Strip See Rx Instructions .ROUTE .MEDSUPPLY Qty: 50 11RF Rx Instructions: Use 1 test strip once a day (DME) blood-glucose meter [FreeStyle Lite Meter] Kit See Rx Instructions .ROUTE .MEDSUPPLY Qty: 1 0RF Rx Instructions: E11.9 ONCE A DAY (DME) lancets [FreeStyle Lancets] 28 gauge misc See Rx Instructions .ROUTE .MEDSUPPLY Qty: 100 11RF Rx Instructions: Use 1 lancet once a day as needed (DME) blood pressure monitor Kit See Rx Instructions .Route Qty: 1 0RF Rx Instructions: As directed ipratropium-albuterol 0.5 mg-3 mg(2.5 mg base)/3 mL solution for nebulization 3 ml inhalation Q6H PRN (Reason: wheezing) Qty: 180 0RF dicyclomine 20 mg tablet 20 mg PO TID PRN (Reason: abdominal pain) 30 Days Qty: 90 0RF omeprazole 20 mg capsule,delayed release(DR/EC) 20 mg PO BID 90 Days Qty: 180 0RF docusate sodium [Col-Rite] 100 mg capsule 100 mg PO BID Qty: 30 0RF meclizine 50 mg tablet 50 mg PO DAILY PRN (Reason: motion sickness) Qty: 14 0RF acetaminophen 500 mg capsule 1,000 mg PO Q8H PRN (Reason: fever or pain) Qty: 14 0RF tramadol 50 mg tablet 50 mg PO Q8H PRN (Reason: pain) Qty: 12 0RF ketoconazole 2 % cream 1 appl topical BID 7 Days Qty: 30 0RF sucralfate 1 gram tablet 1 g PO TID PRN (Reason: Upper abdominal pain) Qty: 60 0RF ondansetron 4 mg tablet,disintegrating 4 mg PO Q6H PRN (Reason: nausea and vomiting) Qty: 10 0RF amlodipine 10 mg tablet 10 mg PO DAILY Qty: 90 0RF losartan 100 mg tablet 100 mg PO DAILY Qty: 90 0RF lidocaine 5 % adhesive patch,medicated 1 patch topical DAILY Qty: 15 0RF Rx Instructions: leave on most painful area for up to 12 hrs methocarbamol 500 mg tablet 1,000 mg PO TID Qty: 18 0RF sennosides [senna] 8.6 mg tablet 8.6 mg PO BEDTIME PRN (Reason: constipation) 7 Days Qty: 7 0RF (DME) blood pressure test kit-large Kit See Rx Instructions .ROUTE .MEDSUPPLY Qty: 1 Rx Instructions: As directed Trulicity 1.5 mg/0.5 mL pen injector 1.5 mg subcut QWEEK 28 Days Qty: 2 5RF fluticasone propionate 110 mcg/actuation HFA aerosol inhaler 2 puff inhalation BID 30 Days Qty: 12 5RF Rx Instructions: administer with spacer lidocaine 5 % adhesive patch,medicated 1 patch topical DAILY Qty: 30 5RF Rx Instructions: leave on most painful area for up to 12 hrs Serevent Diskus 50 mcg/dose blister with device 1 inh inhalation BID 30 Days Qty: 60 5RF (DME) cock up splint See Rx Instructions .Route .MEDSUPPLY Qty: 1 0RF Rx Instructions: wear on the right wrist at night gabapentin 300 mg capsule 300 mg PO TID 30 Days Qty: 90 6RF albuterol sulfate 2.5 mg /3 mL (0.083 %) solution for nebulization 2.5 mg inhalation ONCE Qty: 3 0RF bisacodyl 5 mg tablet,delayed release (DR/EC) 10 mg PO .daily 90 Days Qty: 180 1RF polyethylene glycol 3350 [Miralax] 17 gram/dose powder 17 g PO DAILY Qty: 238 1RF Rx Instructions: hold for loose stools losartan 100 mg tablet 100 mg PO DAILY 30 Days Qty: 30 4RF pioglitazone 30 mg tablet 30 mg PO DAILY 90 Days Qty: 90 1RF Cholestyramine Light 4 gram powder 4 g PO BID PRN (Reason: diarrhea) 30 Days Qty: 210 0RF Rx Instructions: administer w/meal; avoid other meds within 1hr before or 4-6hr after dose atorvastatin 10 mg tablet 10 mg PO DAILY Orencia ClickJect 125 mg/mL auto-injector 125 mg subcut QWEEK Qty: 4 5RF Referrals: Lulu Tony MD [Primary Care Provider, Internal Medicine] - 2 days Referral Note: Cold sores Clinical Impression: Cold sore Interventions: ED Discharge Assessment Last Done: 10/01/25 11:08 Discharge Date/Time: 10/01/25 11:08 Print Language: Chadian
[2025-10-01 11:08] VITALS: BP 104/73; PULSE 76; RESP 16; TEMP 36.1; O2SAT 98
--- OUTSIDE RECORDS SUMMARY | 2025-10-01 13:23 | XMS_ITS | Patient Health Record ---
Author Organization [facility] Address [facility] [place] [address] Care Team Providers Care Cushion Mat Maker Name Role Phone ASAD LERNER Primary Care Provide r [phone] ANOOP HUBBARD, MATTHEW Unavailable [phone] BRENDA HAWLEY MD, PACO Unavailable [phone] Allergies Allergen (clinical drug ingredient) Drug/Non Drug Allergy documented on EMR Reaction Allergy Type Onset Date Status Flexeril dizziness Drug Allergy Active Norflex dizziness Drug Allergy Active Results Component Value Reference Range Flag Notes CHEST-AP ONLY *1 VIEW Order date: 12/28/2024 Reviewed date:01/01/2025 08:48:19 AM Interpretation: Performing Lab: Notes/Report: See Below For Report Chest PA: [id number].Report Text See Below For Report COVID-19 ANTIGEN Order date: 12/28/2024 Reviewed date:12/28/2024 02:51:15 PM Interpretation: Performing Lab: Notes/Report: 1 KOV For in vitros Diagnostic Use Only. been authorized by FDA under EUA for use by authorized laboratories. -- COVID-19 Ag Test has not been FDA cleared or approved; but has COVID-19 Ag test and may cause false negative results. bacterial infections. The presence of mupirocin may interfere with the LICENSE.: [id number] CLIA: [id number] DIRECTOR: JAIME SARAVIA Num: [id number] Exp: 01/08/2025 [place] [address] Paid 5 Cents [address] Pat. No.: [id number] [facility] Col. Tabitha. Med. P.R. ORDER [id number] PERFORMED AT: Negative test results are not intended to rule in other non-SARS viral should be treated as presumptive and confirmation with a molecular assay. -- Negative results, from patients with symptom onset beyond seven days, differentiate between SARS-CoV and SARS-CoV-2. bacterial infection or co-infection with other viruses and do not necessary to determine infection status. Positive results do not rule out correlation with patient history and other diagnostic information is -- Positive results indicate the presence of COVID-19 antigen, but clinical COVID-19 Ag NEGATIVE NEGATIVE METHOD: STATUS COVID-19/FLU A&B INFLUENZA AG A & B Order date: 12/28/2024 Reviewed date:12/28/2024 02:51:15 PM Interpretation: Performing Lab: Notes/Report: A negative test result may occur if the level of antigen in a sample is Col. Tabitha. Med. P.R. ORDER [id number] PERFORMED AT: below the detection limit of the test. Pat. No.: [id number] [facility] Test results must be evaluated in conjunction with other clinical data. Paid 5 Cents [address] Negative test results do not rule out other non-influenza viral infections Exp: 01/08/2025 [place], EVANGELISTA [address] Positive test results do not identify specific influenza A virus subtypes Num: [id number] Individuals who recieved nasally influenza A vaccine may have positive DIRECTOR: JAIME SARAVIA test results for up to three days after vaccination. LICENSE.: [id number] CLIA: [id number] INFLUENZA A ANTIGEN NEGATIVE NEGATIVE INFLUENZA B ANTIGEN NEGATIVE NEGATIVE METHOD: STATUS COVID-19/FLU A&B CBC + DIFF Order date: 12/28/2024 Reviewed date:12/28/2024 02:51:15 PM Interpretation: Performing Lab: Notes/Report: LICENSE.: [id number] CLIA: [id number] DIRECTOR: JAIME SARAVIA Num: [id number] Exp: 01/08/2025 [place] [address] Paid 5 Cents [address] Pat. No.: [id number] [facility] [place] Col. Tabitha. Med. P.R. ORDER [id number] PERFORMED AT: CBC WHITE BLOOD COUNT 7.0 [...] BY: DxH 560 RBC MORPHOLOGY 1 MAYANK Reason For Referral No Information Medications Medication SIG (Take, Route, Frequency, Duration) Notes Start Date End Date Diagnosis (ICD Code) Status Gabapentin 300 MG Capsule 1 capsule Orally TWO times a day; Duration: 30 day(s) 02/09/2019 Acute bilateral low back pain (ICD_10 - M54.5) Active Ranitidine HCl 300 MG Tablet 1 tablet at bedtime Orally Once a day; Duration: 30 day(s) 07/21/2018 Chronic GERD (ICD_10 - K21.9) Active predniSONE 5 MG Tablet 1 tablet Orally Once a day; Duration: 30 day(s) Rheumatoid arthritis involving multiple sites with positive rheumatoid factor (ICD_10 - M05.79) Active Flovent HFA Active Naproxen 500 MG Tablet 1 tablet if pain Orally every 12 hrs 09/29/2024 Influenza A (ICD_10 - J10.1) Active Loratadine 10 MG Tablet 1 tablet Orally Once a day 09/29/2024 Influenza A (ICD_10 - J10.1) Active Tussin DM 100-10 MG/5ML Syrup 10 mL as needed Orally Every 6 hours 09/29/2024 Influenza A (ICD_10 - J10.1) Active Oseltamivir Phosphate 75 MG Capsule 1 capsule Orally Twice a day; Duration: 5 days 09/29/2024 Influenza A (ICD_10 - J10.1) Active Nabumetone 750 MG Tablet 1 tablet Orally Twice a day; Duration: as needed 07/21/2018 Acute bilateral low back pain (ICD_10 - M54.5) Active Montelukast Sodium 10 MG Tablet 1 tablet in the evening Orally Once a day; Duration: 30 day(s) 07/21/2018 Acute allergic rhinitis (ICD_10 - J30.9) Active metFORMIN HCl 500 MG Tablet 1 tablet with meals Orally Once a day; Duration: 30 day(s) 07/21/2018 Controlled type 2 diabetes mellitus with hyperglycemia, without long-term current use of insulin (ICD_10 - E11.65) Active Lisinopril-hydroCH LOROthiazide 20-25 MG Tablet 1 tablet Orally Once a day; Duration: 30 day(s) 07/21/2018 Benign essential HTN (ICD_10 - I10) Active Neomycin-Polymyxin -HC 1 % Solution 4 drops into affected ear RIGHT EAR Otic Three times a day; Duration: 7 days 01/12/2019 Ear pain, right (ICD_10 - H92.01) Active Immunizations Status Vaccine Route Administration Date Visit Date Comments Administered Fluarix Unknown 07/13/2013 Deltoi d, right; Pneumococcal polysaccharide PPV23 Unknown 07/13/2013 Deltoid, left; Pending Influenza (split), s easonal, intradermal, preservative free Unknown 02/09/2019 Influenza (split), seasonal, intradermal, preservative david e Unknown 11/12/2018 Pneumococcal conjugate PCV 13 Unknown 2018 Tdap For Adolescent and Adult Use Unknown .Prevnar 13 Unknown 11/12/2018 DTaP Unknown 11/12/2018 DTaP Unknown 07/21/2018 Social History Tobacco Use: Social History Observation Description Date Details (start date - stop date) Never Smoker NA - NA Sex Observation Social History Observation Description Sex Observation Female Sexual Orientation Social History Observation Description Sexual Orientation Choose not to disclo se Gender Identity Social History Observation Description Gender Identity Choose not to disclose Social History COVID-19 Social Info Question Answer Notes [place] COVID-19 Fecha 12/28/2024 Presenta algun sintoma: Tos Se simmons realizado recientement e la prueba rapida o molecular para el COVID 19 No Conoce a alguien que haya sido positivo al COVID -19 No Simmons participado de eventos pu blicos, sociales o familiares en los ultimos 14 alicea No Simmons viajado fuera de [place] o simmons estado en contacto con alguien que haya estado fuera de [place] en los pasados 14 alicea No Se [...] Notes: EDILSON PAZ RN BSN. Lic.889 [id number], CELESTINE Justin 08/16/2025 10:50:45 AM > Social History documented Problems Problem Type SNOMED Code ICD Code Dates Problem Status W/U Status Risk Notes Problem Chronic pain (14292447) Other chronic pain (G89.29) Added On: 8 Active confirmed Problem Essential hypertension (74622022) Essential (primary) hypertension (I10) Active confirmed Essential (primary) hypertension Problem Postmenopausal bleeding (57001029) Postmenopausal bleeding (N95.0) Added On: 8 Active confirmed Problem Hyperglycemia due to type 2 diabetes mellitus (748396568768834) Controlled type 2 diabetes mellitus with hyperglycemia, without long-term current use of insulin (E11.65) Added On: 8 Active confirmed Problem Acute severe exacerbation of mild persistent asthma (disorder) (645263685) Mild persistent asthma with acute exacerbation (J45.31) Added On: 7 Active confirmed Problem Rheumatoid arthritis (87046856) Rheumatoid arthritis involving multiple sites with positive rheumatoid factor (M05.79) Added On: 8 Active confirmed Problem Body mass index 30.00 to 34.99 (894989211262692) Body mass index (BMI) of 33.0 to 33.9 in adult (Z68.33) Added On: 7 Active confirmed Problem Type II diabetes mellitus without complication (858122871) Controlled diabetes mellitus (E11.9) Added On: 7 Active confirmed Problem Rheumatoid arthritis (65903716) Rheumatoid arthritis involving multiple sites, unspecified rheumatoid factor presence (M06.9) Added On: 7 Active confirmed Problem Diabetes mellitus type 2 (40247250) Diabetes mellitus type 2, uncontrolled (E11.65) Added On: 8 Active confirmed Problem Morbid obesity (403304361) Morbid obesity (E66.01) Added On: 9 Active confirmed Problem Mild intermittent asthma (497415112) Asthma, intermittent, uncomplicated (J45.20) Added On: 8 Active confirmed Problem Body mass index 40+ - morbidly obese (060680957) BMI 40.0-44.9, adult (Z68.41) Added On: 9 Active confirmed Problem Herpes simplex labialis (9699671) Herpes simplex labialis (B00.1) Added On: 7 Active confirmed Problem Exacerbation of asthma (839840542) Asthma exacerbation (J45.901) Added On: 5 Active confirmed Problem Asthma without status asthmaticus (72614376) Active asthma (J45.909) Added On: 5 Active confirmed Problem Endometrial hyperplasia (553777695) Endometrial hyperplasia (N85.00) Added On: 8 Active confirmed Problem Allergic rhinitis (92380518) Acute allergic rhinitis (J30.9) Added On: 8 Active confirmed Problem Gastroesophageal reflux disease (disorder) (856499727) Chronic GERD (K21.9) Added On: 8 Active confirmed Vital Signs Vital Sign Value Notes Appt Date Heart Rate 71 /min EDILSON PAZ PAPER CLEANER. Lic.55940, [place] A 08/16/2025 10:52:36 AM > MCDONALD MCDONALD RN.BSN Lic.17617, JIM 08/16/2025 12:52:04 PM > Se realiza reestimado de dolor, paciente refiere intensidad 0 en la escala de valoracion del dolor. 08/16/2025 Temperature 36.8 C EDILSON PAZ PAPER CLEANER. Lic.97749, [place] A 08/16/2025 10:52:36 AM > MCDONALD MCDONALD RN.BSN Lic.42372, JIM 08/16/2025 12:52:04 PM > Se realiza reestimado de dolor, paciente refiere intensidad 0 en la escala de valoracion del dolor. 08/16/2025 Respiratory Rate 20 /min EDILSON PAZ PAPER CLEANER. Lic.57911, [place] A 08/16/2025 10:52:36 AM > MCDONALD MCDONALD RN.BSN Lic.99845, JIM 08/16/2025 12:52:04 PM > Se realiza reestimado de dolor, paciente refiere intensidad 0 en la escala de valoracion del dolor. 08/16/2025 Blood pressure diastolic 68 mm Hg WAGGONER COLON PAPER CLEANER. Lic.81655, [place] A 08/16/2025 10:52:36 AM > MCDONALD MCDONALD RN.BSN Lic.23298, JIM 08/16/2025 12:52:04 PM > Se realiza reestimado de dolor, paciente refiere intensidad 0 en la escala de valoracion del dolor. 08/16/2025 Oximetry 98 % WAGGONER COLON PAPER CLEANER. Lic.07478, [place] A 08/16/2025 10:52:36 AM > MCDONALD MCDONALD RN.BSN Lic.34748, JIM 08/16/2025 12:52:04 PM > Se realiza reestimado de dolor, paciente refiere intensidad 0 en la escala de valoracion del dolor. 08/16/2025 Height-cm 154.94 cm EDILSON COLON PAPER CLEANER. Lic.75439, [place] A 08/16/2025 10:52:36 AM > MCDONALD MCDONALD RN.BSN Lic.10626, JIM 08/16/2025 12:52:04 PM > Se realiza reestimado de dolor, paciente refiere intensidad 0 en la escala de valoracion del dolor. 08/16/2025 Weight-kg 96.62 kg EDILSON COLON PAPER CLEANER. Lic.04894, [place] A 08/16/2025 10:52:36 AM > MCDONALD MCDONALD RN.BSN Lic.69647, JIM 08/16/2025 12:52:04 PM > Se realiza reestimado de dolor, paciente refiere intensidad 0 en la escala de valoracion del dolor. 08/16/2025 Height 61 in WAGGONER COLON PAPER CLEANER. Lic.53395, [place] A 08/16/2025 10:52:36 AM > MCDONALD MCDONALD RN.BSN Lic.91929, JIM 08/16/2025 12:52:04 PM > Se realiza reestimado de dolor, paciente refiere intensidad 0 en la escala de valoracion del dolor. 08/16/2025 Blood pressure systolic 165 mm Hg EDILSON MARROQUIN RN BSN. Lic.19684, [place] A 08/16/2025 10:52:36 AM > TAMARA MCDONALD RN.BSN Lic.13338, JIM 08/16/2025 12:52:04 PM > Se realiza reestimado de dolor, paciente refiere intensidad 0 en la escala de valoracion del dolor. 08/16/2025 Weight 213 lbs EDILSON PAZ PAPER CLEANER. Lic.50690, [place] A 08/16/2025 10:52:36 AM > TAMARA MCDONALD RN.BSN Lic.50509, JIM 08/16/2025 12:52:04 PM > Se realiza reestimado de dolor, paciente refiere intensidad 0 en la escala de valoracion del dolor. 08/16/2025 BMI 40.24 kg/m2 EDILSON PAZ RN BSN. Lic.10904, [place] A 08/16/2025 10:52:36 AM > TAMARA MCDONALD RN.BSN Lic.01185, JIM 08/16/2025 12:52:04 PM > Se realiza reestimado de dolor, paciente refiere intensidad 0 en la escala de valoracion del dolor. 08/16/2025 Encounters Date Time Type Facility Location Provider Diagnosis 12:07 PM Office Visit [facility] [place] [address] [place], [place] [id number] [place]O GUTIERREZ HAWLEY Cough R05.9 ; Low back pain M54.50 and Asthma exacerbation J45.901 10:35 AM Office Visit [facility] [address] [place], [place] [id number] MATTHEW DAVALOS Active asthma J45.909 Assessments Encounter Date Diagnosis (ICD Code) Assessment Notes Treatment Notes Section Notes 12/28/2024 Cough (ICD-10 - R05.9) 1) TUSSIN 10 ML PO 2) [id number] MG IV 3) SOLUMEDROL 125 M GIV 4) ALBUTEROL 0.083 + ATROVENT 0.02 BY PN ONCE [place] A 12/28/2024 12:50:51 PM > CÉSAR BARBA. PAPER CLEANER Lic. 60773, GENE 12/28/2024 12:57:44 PM > Orden tomada. CÉSAR BARBA. PAPER CLEANER Lic. [id number], GENE 12/28/2024 12:57:44 PM > CÉSAR BARBA. PAPER CLEANER Lic. 51577, GENE 12/28/2024 01:10:58 PM > Se recibe [...] 0.083% + Atrovent 0.02 10/11. CÉSAR BARBA. PAPER CLEANER Lic. 16148, GENE 12/28/2024 01:10:58 PM > CÉSAR BARBA. CÉSAR BARBA. PAPER CLEANER Lic. 13580, GENE 12/28/2024 02:10:54 PM > Paciente es [...] 0 al momento del renato. CÉSAR BARBA. PAPER CLEANER Lic. 21093, GENE 12/28/2024 02:10:55 PM > 12/28/2024 Low back pain (ICD-10 - M54.50) 08/16/2025 Active asthma (ICD-10 - J45.909) LEVALBUTEROL THERAPY X3 CONTINUA ATROVENT THERAPY X3 CONTINUA SOLUMEDROL 125 ML IVP SULFATO DE MG 1 GM IM ZYNCOF 10 ML PO DAVALOS, MATTHEW 08/16/2025 11:16:33 AM > DAVALOS, MATTHEW 08/16/2025 11:10:19 AM > 12/28/2024 Asthma exacerbation (ICD-10 - J45.901) 08/16/2025 Other GIVENS LOPEZ GINI. BSN Lic. [id number], [facility] 08/16/2025 11:21:53 AM > Se ubica paciente [...] refiere entender. CHON LOPEZ RN. BSN Lic. [id number], [facility] 08/16/2025 11:21:53 AM > CHON LOPEZ RN. BSN Lic. [id number], [facility] 08/16/2025 11:56:26 AM > Se observa paciente con segunda terapia respiratoria ordenada por medico de turno. CHON LOPEZ RN. BSN Lic. [id number], [facility] 08/16/2025 11:56:30 AM > TAMARA MCDONALD RN BSN. Lic.89750, [facility] 08/16/2025 12:20:21 PM > Se observa paciente con tercera terapia respiratoria ordenada por Dr. Davalos. TAMARA MCDONALD RN BSN. Lic.97189, [facility] 08/16/2025 12:20:44 PM > TAMARA MCDONALD RN.BSN Lic.28542 [place] 08/16/2025 12:52:21 PM > Paciente es dado [...] al momento del renato. TAMARA MCDONALD RN.BSN Lic.82199, JIM 08/16/2025 12:52:26 PM > MATTHEW DAVALOS [...] Insured Coverage Start Date Coverage End Date [address] [address] [id number] Laura Beckman Self - patient is the insured 4 5 MEDICARE [address] [address] [place], [place] [id number] Laura Beckman Self - patient is the insured 5 Medical (General) History Medical History History ICD Code ARTRITIS REUMATOIDEA DIABETICA ASMA RENATO PRESION Surgical History Surgery Date(Month/Year) cholecystectomy
== END 2025-10-01 11:08 | disposition home or self-care (01) ==
PROVIDERS: Emergency Provider Emergency Medicine; PCP Internal Medicine
DX: B00.1 Herpesviral vesicular dermatitis (principal); R05.9 Cough, unspecified; R50.9 Fever, unspecified; Z79.899 Other long term (current) drug therapy
CPT/HCPCS: 99282; 99283

== ENCOUNTER 2025-10-06 19:16 | Outpatient (REF) | payer MEDICARE, MEDICAID, SELFPAY ==
--- NOTE | ~2025-10-06 | MR_ITS ---
CLINICAL HISTORY: M47.812 - Spondylosis without myelopathy or radiculopathy, cervical region MR cervical spine without gadolinium Comparison: None provided Findings: C2-3: Grade 1 anterolisthesis C2 over C3. C7-T1: Grade 1 anterolisthesis C7 over T1. As aforementioned extruded disc from C6-7 is identified at this level with moderate central canal stenosis and no significant neural foraminal stenosis. C4-5: Central disc extrusion, 0.3 cm AP x 0.9 cm transverse extending caudad 1.1 cm with mild to moderate central canal stenosis and no significant neural foraminal stenosis. C5-6: Central disc extrusion, 0.4 cm AP by 0.5 and extending caudad 1.1 cm with looz-ma-ymvynmpm central canal stenosis and no significant neural foraminal stenosis. C6-7: Broad-based disc bulge with right central disc extrusion, 0.5 cm AP by 1 cm transverse extending caudad 1.9 cm (past C7-T1) and cephalad 0.4 cm with moderate central canal stenosis, right broad-based extraforaminal disc bulge with moderate right and no significant left neural foraminal stenosis. No acute fractures or pathologic bone lesions. No acute findings on limited view of the intracranial contents. Soft tissues of the neck are normal. Cervical cord normal. IMPRESSION: 1. Grade 1 anterolisthesis of C2 over C3 and C7 over T1. 2. C6-7: Right central disc extrusion with moderate central canal stenosis and moderate right neural foraminal stenosis. 3. C4-5 and C5-6: Central disc extrusions with mild to moderate central canal stenosis. 4. No acute cervical spine fracture. This document has been electronically signed by: Chris Rogers MD on 10/06/2025 20:27:28
--- OUTSIDE RECORDS SUMMARY | 2025-10-06 19:23 | XMS_ITS | Patient Health Record ---
Author Organization [facility] Address [facility] [place] [address] Care Team Providers Care Pens And Pencils Dipper Name Role Phone ASAD LERNER Primary Care Provide r [phone] ANOOP HUBBARD, MATTHEW Unavailable [phone] BRENDA HAWLEY MD, PACO Unavailable Allergies Allergen (clinical drug ingredient) Drug/Non Drug Allergy documented on EMR Reaction Allergy Type Onset Date Status Flexeril dizziness Drug Allergy Active Norflex dizziness Drug Allergy Active Results Component Value Reference Range Flag Notes CBC + DIFF Order date: 12/28/2024 Reviewed date:12/28/2024 02:51:15 PM Interpretation: Performing Lab: Notes/Report: LICENSE.: [id number] CLIA: [id number] DIRECTOR: JAIME SARAVIA Num: [id number] Exp: 01/08/2025 [place] [address] Paid 5 Cents [facility] [address] Pat. No.: [id number] [facility] [place] Col. Tabitha. Med. P.R. ORDER [id number] PERFORMED AT: CBC WHITE BLOOD COUNT 7.0 [...] 1 MAYANK INFLUENZA AG A & B Order date: 12/28/2024 Reviewed date:12/28/2024 02:51:15 PM Interpretation: Performing Lab: Notes/Report: A negative test result may occur if the level of antigen in a sample is Col. Tabitha. Med. P.R. ORDER [id number] PERFORMED AT: below the detection limit of the test. Pat. No.: [id number] [facility] [place] Test results must be evaluated in conjunction with other clinical data. Paid 5 Cents [address] Negative test results do not rule out other non-influenza viral infections Exp: 01/08/2025 [place] [address] Positive test results do not identify specific influenza A virus subtypes Num: [id number] Individuals who recieved nasally influenza A vaccine may have positive DIRECTOR: JAIME SARAVIA test results for up to three days after vaccination. LICENSE.: [id number] CLIA: [id number] INFLUENZA A ANTIGEN NEGATIVE NEGATIVE INFLUENZA B ANTIGEN NEGATIVE NEGATIVE METHOD: STATUS COVID-19/FLU A&B COVID-19 ANTIGEN Order date: 12/28/2024 Reviewed date:12/28/2024 02:51:15 PM Interpretation: Performing Lab: Notes/Report: Col. Tabitha. Med. P.R. ORDER [id number] PERFORMED AT: -- Positive results indicate the presence of COVID-19 antigen, but clinical Pat. No.: [id number] [facility] [place] correlation with patient history and other diagnostic information is Paid 5 Cents [address] necessary to determine infection status. Positive results do not rule out Exp: 01/08/2025 [place], [place] [address] bacterial infection or co-infection with other viruses and do not Num: [id number] differentiate between SARS-CoV and SARS-CoV-2. DIRECTOR: JAIME SARAVIA -- Negative results, from patients with symptom onset beyond seven days, LICENSE.: [id number] CLIA: [id number] should be treated as presumptive and confirmation [...] STATUS COVID-19/FLU A&B CHEST-AP ONLY *1 VIEW Order date: 12/28/2024 Reviewed date:01/01/2025 08:48:19 AM Interpretation: Performing Lab: Notes/Report: See Below For Report Chest PA: [id number].Report Text See Below For Report Reason For Referral No Information Medications Medication SIG (Take, Route, Frequency, Duration) Notes Start Date End Date Diagnosis (ICD Code) Status Gabapentin 300 MG Capsule 1 capsule Orally TWO times a day; Duration: 30 day(s) 02/09/2019 Acute bilateral low back pain (ICD_10 - M54.5) Active raNITIdine HCl 300 MG Tablet 1 tablet at [...] 14 alicea No Simmons viajado fuera de [place] o simmons estado en contacto con alguien que haya estado fuera de [place] en los pasados 14 alicea No Se [...] W/U Status Risk Notes Problem Chronic pain (58102496) Other chronic pain (G89.29) Added On: 8 Active confirmed Problem Essential hypertension (32535861) Essential (primary) hypertension (I10) Active confirmed Essential (primary) hypertension Problem Postmenopausal bleeding (46875501) Postmenopausal bleeding (N95.0) Added On: 8 Active confirmed Problem Hyperglycemia due to type 2 diabetes mellitus (596756367714960) Controlled type 2 diabetes mellitus with hyperglycemia, without long-term current use of insulin (E11.65) Added On: 8 Active confirmed Problem Acute severe exacerbation of mild persistent asthma (disorder) (174791627) Mild persistent asthma with acute exacerbation (J45.31) Added On: 7 Active confirmed Problem Rheumatoid arthritis (21664377) Rheumatoid arthritis involving multiple sites with positive rheumatoid factor (M05.79) Added On: 8 Active confirmed Problem Body mass index 30.00 to 34.99 (736893379685620) Body mass index (BMI) of 33.0 to 33.9 in adult (Z68.33) Added On: 7 Active confirmed Problem Type II diabetes mellitus without complication (677009055) Controlled diabetes mellitus (E11.9) Added On: 7 Active confirmed Problem Rheumatoid arthritis (08363723) Rheumatoid arthritis involving multiple sites, unspecified rheumatoid factor presence (M06.9) Added On: 7 Active confirmed Problem Diabetes mellitus type 2 (10267086) Diabetes mellitus type 2, uncontrolled (E11.65) Added On: 8 Active confirmed Problem Morbid obesity (991848333) Morbid obesity (E66.01) Added On: 9 Active confirmed Problem Mild intermittent asthma (807142229) Asthma, intermittent, uncomplicated (J45.20) Added On: 8 Active confirmed Problem Body mass index 40+ - morbidly obese (647735424) BMI 40.0-44.9, adult (Z68.41) Added On: 9 Active confirmed Problem Herpes simplex labialis (9170647) Herpes simplex labialis (B00.1) Added On: 7 Active confirmed Problem Exacerbation of asthma (683925102) Asthma exacerbation (J45.901) Added On: 5 Active confirmed Problem Asthma without status asthmaticus (00621742) Active asthma (J45.909) Added On: 5 Active confirmed Problem Endometrial hyperplasia (742139880) Endometrial hyperplasia (N85.00) Added On: 8 Active confirmed Problem Allergic rhinitis (34541249) Acute allergic rhinitis (J30.9) Added On: 8 Active confirmed Problem Gastroesophageal reflux disease (disorder) (552490072) Chronic GERD (K21.9) Added On: 8 Active confirmed Vital Signs Vital Sign Value Notes Appt Date Heart Rate 71 /min EDILSON PAZ GROUP CHIEF OPERATOR. Lic.38826, [place] A 08/16/2025 10:52:36 AM > MCDONALD MCDONALD RN.BSN Lic.08742, JIM 08/16/2025 12:52:04 PM > Se realiza reestimado de dolor, paciente refiere intensidad 0 en la escala de valoracion del dolor. 08/16/2025 Temperature 36.8 C EDILSON PAZ GROUP CHIEF OPERATOR. Lic.07049, [place] A 08/16/2025 10:52:36 AM > MCDONALD MCDONALD RN.BSN Lic.68857, JIM 08/16/2025 12:52:04 PM > Se realiza reestimado de dolor, paciente refiere intensidad 0 en la escala de valoracion del dolor. 08/16/2025 Respiratory Rate 20 /min EDILSON PAZ GROUP CHIEF OPERATOR. Lic.45475, [place] A 08/16/2025 10:52:36 AM > MCDONALD MCDONALD RN.BSN Lic.40288, JIM 08/16/2025 12:52:04 PM > Se realiza reestimado de dolor, paciente refiere intensidad 0 en la escala de valoracion del dolor. 08/16/2025 Blood pressure diastolic 68 mm Hg WAGGONER COLON GROUP CHIEF OPERATOR. Lic.15870, [place] A 08/16/2025 10:52:36 AM > MCDONALD MCDONALD RN.BSN Lic.28075, JIM 08/16/2025 12:52:04 PM > Se realiza reestimado de dolor, paciente refiere intensidad 0 en la escala de valoracion del dolor. 08/16/2025 Oximetry 98 % WAGGONER [employer]ON GROUP CHIEF OPERATOR. Lic.23592, [place] A 08/16/2025 10:52:36 AM > MCDONALD MCDONALD RN.BSN Lic.65925, JIM 08/16/2025 12:52:04 PM > Se realiza reestimado de dolor, paciente refiere intensidad 0 en la escala de valoracion del dolor. 08/16/2025 Height-cm 154.94 cm EDILSON COLON GROUP CHIEF OPERATOR. Lic.78970, [place] A 08/16/2025 10:52:36 AM > MCDONALD MCDONALD RN.BSN Lic.57524, JIM 08/16/2025 12:52:04 PM > Se realiza reestimado de dolor, paciente refiere intensidad 0 en la escala de valoracion del dolor. 08/16/2025 Weight-kg 96.62 kg EDILSON COLON GROUP CHIEF OPERATOR. Lic.14524, [place] A 08/16/2025 10:52:36 AM > MCDONALD MCDONALD RN.BSN Lic.71990, JIM 08/16/2025 12:52:04 PM > Se realiza reestimado de dolor, paciente refiere intensidad 0 en la escala de valoracion del dolor. 08/16/2025 Height 61 in W[employer]ER [employer] GROUP CHIEF OPERATOR. Lic.61589, [place] A 08/16/2025 10:52:36 AM > MCDONALD MCDONALD RN.BSN Lic.91275, JIM 08/16/2025 12:52:04 PM > Se realiza reestimado de dolor, paciente refiere intensidad 0 en la escala de valoracion del dolor. 08/16/2025 Blood pressure systolic 165 mm Hg EDILSON MARROQUIN RN BSN. Lic.60690, [place] A 08/16/2025 10:52:36 AM > TAMARA MCDONALD RN.BSN Lic.83924, JIM 08/16/2025 12:52:04 PM > Se realiza reestimado de dolor, paciente refiere intensidad 0 en la escala de valoracion del dolor. 08/16/2025 Weight 213 lbs EDILSON PAZ GROUP CHIEF OPERATOR. Lic.38821, [place] A 08/16/2025 10:52:36 AM > TAMARA MCDONALD RN.BSN Lic.10046, JIM 08/16/2025 12:52:04 PM > Se realiza reestimado de dolor, paciente refiere intensidad 0 en la escala de valoracion del dolor. 08/16/2025 BMI 40.24 kg/m2 EDILSON PAZ RN BSN. Lic.82186, [place] A 08/16/2025 10:52:36 AM > TAMARA MCDONALD RN.BSN Lic.72184, JIM 08/16/2025 12:52:04 PM > Se realiza reestimado de dolor, paciente refiere intensidad 0 en la escala de valoracion del dolor. 08/16/2025 Encounters Date Time Type Facility Location Provider Diagnosis 12:07 PM Office Visit [facility] [place] [address] [place], [place] [id number] PACO GUTIERREZ HAWLEY Cough R05.9 ; Low back pain M54.50 and Asthma exacerbation J45.901 10:35 AM Office Visit [facility] [address] [place], [place] [id number] MATTHEW DAVALOS Active asthma J45.909 Assessments Encounter Date Diagnosis (ICD Code) Assessment Notes Treatment Notes Section Notes 12/28/2024 Cough (ICD-10 - R05.9) 1) TUSSIN 10 ML PO 2) [id number] MG IV 3) SOLUMEDROL 125 M GIV 4) ALBUTEROL 0.083 + ATROVENT 0.02 BY PN ONCE [place] A 12/28/2024 12:50:51 PM > CÉSAR BARBA. GROUP CHIEF OPERATOR Lic. [id number], GENE 12/28/2024 12:57:44 PM > Orden tomada. CÉSAR BRABA. GROUP CHIEF OPERATOR Lic. [id number], GENE 12/28/2024 12:57:44 PM > CÉSAR BARBA. GROUP CHIEF OPERATOR Lic. [id number], GENE 12/28/2024 01:10:58 PM > Se recibe [...] + Atrovent 0.02 10/11. CÉSAR BARBA. GROUP CHIEF OPERATOR Lic. [id number], GENE 12/28/2024 01:10:58 PM > CÉSAR BARBA. CÉSAR BARBA. GROUP CHIEF OPERATOR Lic. [id number], GENE 12/28/2024 02:10:54 PM > Paciente es [...] al momento del renato. CÉSAR BARBA. GROUP CHIEF OPERATOR Lic. [id number], GENE 12/28/2024 02:10:55 PM > 12/28/2024 Low [...] 08/16/2025 Other GIVENS LOPEZ GINI. BSN Lic. [id number], [facility] [place] 08/16/2025 11:21:53 AM > Se ubica paciente [...] refiere entender. CHON LOPEZ RN. BSN Lic. [id number], [facility] [place] 08/16/2025 11:21:53 AM > CHON LOPEZ RN. BSN Lic. [id number], [facility] [place] 08/16/2025 11:56:26 AM > Se observa paciente con segunda terapia respiratoria ordenada por medico de turno. CHON LOPEZ RN. BSN Lic. [id number], [facility] [place] 08/16/2025 11:56:30 AM > TAMARA MCDONALD RN BSN. Lic.[id number], [facility] 08/16/2025 12:20:21 PM > Se observa paciente con tercera terapia respiratoria ordenada por Dr. Davalos. TAMARA MCDONALD RN BSN. Lic.[id number], [facility] 08/16/2025 12:20:44 PM > TAMARA MCDONALD RN.BSN Lic.23072 [place] 08/16/2025 12:52:21 PM > Paciente es dado [...] al momento del renato. TAMARA MCDONALD RN.BSN Lic.[id number], JIM 08/16/2025 12:52:26 PM > MATTHEW DAVALOS [...] Insured Coverage Start Date Coverage End Date [address] [address] [id number] Laura Beckman Self - patient is the insured 4 5 MEDICARE [address] [address] [place], [place] [phone] [id number] Laura Beckman Self - patient is the insured 5 Medical (General) History Medical History History ICD Code ARTRITIS REUMATOIDEA DIABETICA ASMA RENATO PRESION Surgical History Surgery Date(Month/Year) cholecystectomy
== END 2025-10-06 19:17 | disposition home or self-care (01) ==
LOC: HO.MRI 19:16
PROVIDERS: PCP Internal Medicine; Visit Provider Nurse Practitioner Family
DX: M47.812 Spondylosis without myelopathy or radiculopathy, cervical region (principal); M54.6 Pain in thoracic spine; M50.13 Cervical disc disorder with radiculopathy, cervicothoracic region; M50.20 Other cervical disc displacement, unspecified cervical region; M43.12 Spondylolisthesis, cervical region
CPT/HCPCS: 72141

== ENCOUNTER → 2025-10-06 19:22 | Outpatient (BNV) | payer MEDICARE, MEDICAID, SELFPAY | PROVIDERS: PCP Internal Medicine; Visit Provider Radiology Diagnostic Radiology | DX: M47.812 Spondylosis without myelopathy or radiculopathy, cervical region (principal); M48.02 Spinal stenosis, cervical region | CPT/HCPCS: 72141 ==

== ENCOUNTER 2025-10-09 15:38 | Emergency (ER) | payer MEDICARE, MEDICAID, SELFPAY ==
--- NOTE | ~2025-10-09 | XR_ITS ---
CLINICAL HISTORY: pain, constipation?? 1 view abdomen Comparison: CR/SR - XR KUB - 02/27/25 14:16 EDT Findings: No pneumoperitoneum or pneumatosis. No abnormal calcifications. Mild bilateral hip degenerative change. IMPRESSION: Normal stool quantity. This document has been electronically signed by: Dominguez Luo MD on 10/10/2025 03:16:49
--- NOTE | ~2025-10-09 | US_ITS ---
CLINICAL HISTORY: upper abd pain >RUQ, N V --- Additional Notes or Special Instructions: GB CBD only per ordering provider - US abdomen limited Comparison: CT/SR - CT ABDOMEN PELVIS WITH IV CONTRAST - 03/20/25 13:27 EDT Findings: Pancreas is obscured by the overlying bowel gas. Increased echogenicity of the liver consistent with hepatic steatosis. There is no intrahepatic bile duct dilatation. The common duct is 5 mm in diameter. Status post cholecystectomy. There is no sonographic Dhillon sign. The main portal vein is antegrade. The right kidney is 11.5 cm in length. No ascites. IMPRESSION: Status post cholecystectomy. No evidence of intra or extrahepatic ductal dilation. Hepatic steatosis. This document has been electronically signed by: Floyd Richey MD on 10/09/2025 19:45:19
[2025-10-09 15:50] VITALS: BP 146/70; PULSE 89; RESP 18; TEMP 36.4; O2SAT 94; BMI 39.8
--- NOTE | 2025-10-09 15:52 | ED_ITS ---
HPI - Nausea/Vomiting/Diarrhea General Chief complaint: Nausea/Vomiting/Diarrhea Stated complaint: vomiting/diarrhea Time Seen by Provider: 10/10/25 01:27 Source: patient Mode of arrival: ambulatory Limitations: no limitations History of Present Illness ED Provider: Dr. Alejandra Interiano HPI Narrative: Patient comes to the emergency room complaining of nausea vomiting and diarrhea the patient states she had couple episodes of both, last time a proximally 20 hours ago. Patient denies abdominal pain, denies URI or UTI symptoms. Related Data Home Medications ?Medication ?Instructions ?Recorded ?Confirmed blood pressure test kit-large #1 ea 06/02/24 07/13/25 atorvastatin 10 mg tablet 10 mg PO DAILY 06/25/2501/02 Previous Rx's ?Medication ?Instructions ?Recorded albuterol sulfate 90 mcg/actuation 2 inh PO Q4H PRN sh ortness of 08/13/20 aerosol inhaler breath or wheezing #8.5 gram s docusate sodium 100 mg capsule 100 mg PO BID #30 caps 12/07/22 (Col-Rite) blood sugar diagnostic (FreeStyle #50 ea 02/10/23 Lite Strips) blood-glucose meter (FreeStyle #1 ea 02/10/23 Lite Meter kit) lancets 28 gauge (FreeStyle #100 ea 02/10/23 Lancets) cock up splint #1 ea 03/03/23 blood pressure monitor #1 ea 02/07/24 sennosides 8.6 mg tablet (senna) 8.6 mg PO BEDTIME PRN constipation 04/20/24 7 days #7 tabs meclizine 50 mg tablet 50 mg PO DAILY PRN motion si ckness 04/23/24 #14 tabs gabapentin 300 mg capsule 300 mg PO TID pain 30 days # 90 caps 07/06/24 fluticasone propionate 110 2 puff inhalation BID Asthm a/Cough 01/18/25 mcg/actuation HFA aerosol inhaler 30 days #12 grams ipratropium 0.5 mg-albuterol 3 mg 3 ml inhalation Q6H PRN wheezing 02/09/25 (2.5 mg base)/3 mL nebulization #180 mL soln dulaglutide 1.5 mg/0.5 mL 1.5 mg (0.5 mL) subcut QWEEK 4 03/06/25 subcutaneous pen injector weeks #2 mL (Trulicity) acetaminophen 500 mg capsule 1,000 mg (2 x 500 mg) PO Q8H PRN 03/13/25 fever or pain #14 caps tramadol 50 mg tablet 50 mg PO Q8H PRN pain #12 ta bs 03/13/25 bisacodyl 5 mg tablet,delayed 10 mg (2 x 5 mg) PO .orin ly 90 days 04/02/25 release #180 tabs polyethylene glycol 3350 17 17 g PO DAILY #238 grams 0 04/02/25 gram/dose oral powder (Miralax) ondansetron 4 mg disintegrating 4 mg PO Q6H PRN nausea and 04/04/25 tablet vomiting #10 tabs sucralfate 1 gram tablet 1 g PO TID PRN Upper abdomin al 04/04/25 pain #60 tabs cholestyramine 4 gram oral powder 4 g PO BID PRN diarr hea 30 days 04/12/25 (Cholestyramine Light) #210 grams losartan 100 mg tablet 100 mg PO DAILY hypertension 30 04/12/25 days #30 tabs pioglitazone 30 mg tablet 30 mg PO DAILY 90 days #90 t abs 04/12/25 dicyclomine 20 mg tablet 20 mg PO TID PRN abdominal p ain 30 05/07/25 days #90 tabs salmeterol 50 mcg/dose blister 1 inh inhalation BID 30 days #60 ea 05/08/25 powder for inhalation (Serevent Diskus) amlodipine 10 mg tablet 10 mg PO DAILY #90 tabs 02/02 losartan 100 mg tablet 100 mg PO DAILY #90 tabs 02/02 Orencia ClickJect 125 mg/mL 125 mg subcut QWEEK #4 mL 06/29/25 subcutaneous auto-injector (abatacept) lidocaine 5 % topical patch 1 patch topical DAILY #30 ea 07/13/25 ketoconazole 2 % topical cream 1 appl topical BID 1 we ek #30 grams 09/01/25 lidocaine 5 % topical patch 1 patch topical DAILY #15 ea 09/16/25 methocarbamol 500 mg tablet 1,000 mg (2 x 500 mg) PO T ID #18 09/16/25 tabs omeprazole 20 mg capsule,delayed 20 mg PO BID 90 days #180 caps 09/26/25 release valacyclovir 1 gram tablet 2,000 mg (2 x 1 gram) PO BI D 1 day 10/01/25 #4 tabs loperamide 2 mg capsule 2 mg PO Q4H PRN loose stool #14 10/10/25 caps ondansetron 4 mg disintegrating 4 mg PO Q6H PRN nausea and 10/10/25 tablet vomiting #10 tabs Allergies Allergy/AdvReac Type Severity Reaction Status Date / Time cyclobenzaprine (From Allergy Intermediate Dizziness Verified 10/09/25 15:54 Flexeril) orphenadrine (From Norflex) Allergy Intermediate Dizziness Verified 10/09/25 15:54 sarilumab (From Kevzara) Allergy Intermediate Rash Verified 10/09/25 15:54 Review of Systems 2 Review of Systems: Constitutional : No Weight loss, No Fever, No Chills, No Night Sweats, No Fatigue, No Malaise ENT/Mouth : No Hearing loss, No Ear Pain, No Nasal Congestion, No Sinus Pain, No Hoarseness, No sore throat, No Rhinorrhea, No Swallowing Difficulty Eyes: No Eye Pain, No Swelling, No Redness, No Foreign Body, No Discharge, No Vision Changes Cardiovascular : No Chest Pain, No SOB, No Dyspnea on Exertion, No Orthopnea, No Edema, No Palpitations Respiratory : No Cough, No Sputum, No Wheezing, No Smoke Exposure, No Dyspnea Gastrointestinal : Complaining of nausea vomiting diarrhea, last time 20:00 hours ago Genitourinary : no irregular bleeding, No Dysuria, No Urinary Frequency, No Hematuria, No Urinary Incontinence, No Urgency, No Flank Pain, No Urinary Flow Changes, No Hesitancy Musculoskeletal : No joint pain, No Myalgias, No Joint Swelling Skin : No Skin Lesions, No rash Neuro : No Weakness, No Numbness, No Paresthesias, No Loss of Consciousness, No Dizziness, No Headache Psych : No Anxiety/Panic, No Depression, No SI/HI/AH/VH, No Social Issues, Heme/Lymph: No Bruising, No Bleeding,No Lymphadenopathy Endocrine : No Polyuria, No Polydipsia, No Temperature Intolerance [facility] Past Medical History Medical History Urinary tract infection Bronchitis Morbid obesity with BMI of 45.0-49.9, adult Sacroiliitis Rheumatic fever TIA (transient ischemic attack) Right-sided back pain History of COVID-19 Asthma exacerbation Hospital discharge follow-up Sacroiliitis Renal calculi Costovertebral angle tenderness Burning with urination Disc degeneration, lumbar Spondylosis of cervical spine Spondylosis of lumbar spine Pleuritic pain Restrictive lung disease Morbid obesity Asthma Dyslipidemia Essential hypertension Vaginal modesta Seropositive rheumatoid arthritis Rheumatoid arthritis Diabetes Surgical History History of cholecystectomy Hx of colonoscopy (09/01/19) History of surgery on wrist Family History Family History Father Diabetes mellitus Myocardial infarction Hypertension CVD (cardiovascular disease) Mother Diabetes mellitus CVD (cardiovascular disease) Sister No problems noted. Son No problems noted. Son No problems noted. Son No problems noted. Daughter Thyroiditis Daughter No problems noted. Daughter No problems noted. Daughter No problems noted. Daughter No problems noted. Other Asthma exacerbation Social History Social History Housing: Apartment Alcohol intake: never Patient Tobacco Use Status: Never used Tobacco e-Cigarette/Vaping Use: Never Used Second Hand Smoke Exposure: No Advance Directives: No Advance Directives Information Provided: No Do you have a plan to hurt others: No Plan service: No Current occupational status: disabled Sexual orientation: Straight/Heterosexual Gender identity: Female Cognitive needs: No Hearing needs: No Vision needs: No Physical Exam 2 Exam: Exam: Appearance: Alert. Oriented X3. No acute distress. Well-appearing Eyes: Pupils equal, round and reactive to light. ENT: Pharynx normal. Neck: Normal inspection. Neck supple. No lymph nodes noted. No crepitus CVS: Normal heart rate and rhythm. Pulses normal. Normal S1 and S2 Respiratory: No respiratory distress. Breath sounds normal. No Wheezing. No rales Abdomen: Soft and nontender. No rigidity. No distention. Skin: Skin warm and dry. Normal skin color. Normal skin turgor. Extremities: No lower extremity edema. No Lacerations. No Rash Neuro: Oriented X 3. No motor deficit. No sensory deficit. Moving all extremities. No slurred speech. CN 2 through 12 grossly intact Psych: calm, cooperative, normal affect Vital Signs: Vital Signs: Last Vital Signs Temp 97.9 F 10/10/25 01:29 Pulse 75 10/10/25 01:29 Resp 16 10/10/25 01:29 BP 146/79 H 10/10/25 01:29 Pulse Ox 95 10/10/25 01:29 O2 Del Method Room Air 10/10/25 01:29 BMI result Body Mass Index 39.8 Course Course Course Narrative: This is a Rapid Medical Exam performed in triage by Jackelyn Loyd PA-C. Full HPI, ROS and PE to be performed by primary ED provider. 65-year-old Nauruan-speaking female with a past medical history of TIA, asthma, renal stones, asthma, diabetes, rheumatoid arthritis, HTN, HLD presenting to the ED c/o upper abdominal pain, vomiting & diarrhea x 3AM. denies melena, brbpr. +decreased PO intake & +sick contacts PE: Abdomen is soft with upper tenderness > RUQ. Plan: EKG, labs, UA, US Medications Administered Discontinued Medications Generic Name Dose Route Start Last Admin Trade Name Freq PRN Reason Stop Dose Admin Lactated Ringer's 1,000 mls @ 999 mls/hr 10/10/25 01:45 10/10/25 01:59 Lr IV 10/10/25 02:45 999 mls/hr .Q1H1M JARRET Administration Loperamide HCl 2 mg 10/10/25 01:37 10/10/25 01:59 Loperamide Hcl 2 Mg Capsule PO 10/10/25 01:38 2 mg ONCE ONE Administration Ondansetron HCl 4 mg 10/10/25 01:37 10/10/25 01:59 Ondansetron Hcl 4 Mg/2 Ml Vial IVPUSH 10/10/25 01:38 4 mg ONCE ONE Administration Medical Decision Making Medical Decision Making [facility] Narrative: My interpretation of labs: No significant abnormality in patient's hematology and chemistry Patient states that he feels much better after IV hydration Zofran and loperamide KUB was ordered from triage, no acute abnormalities Lab Data [facility] Lab Attestation statement: I reviewed the patient's lab results. 10/09/25 16:18 10/09/25 16:18 Labs: Lab Results 10/09/25 10/09/25 Range/Units 16:18 16:33 WBC 8.4 (4.8-10.8) X10*3/uL RBC 4.58 (4.20-5.50) X10*6/uL Hgb 14.5 (12.0-16.0) g/dl Hct 42.8 (37.0-47.0) % MCV 93.4 (80.0-98.0) fL MCH 31.7 (27.0-33.0) pg MCHC 33.9 (31.0-35.0) g/dl RDW 11.9 (11.0-16.0) % Plt Count 166 (160-400) X10*3/uL MPV 11.2 (9.4-12.3) fL Immature Gran % (Auto) 0.6 H (0.0-0.4) % Neut % (Auto) 83.1 H (45-73) % Lymph % (Auto) 9.0 L (20-40) % [place] % (Auto) 3.9 (2-11) % Eos % (Auto) 3.2 (0-4) % Baso % (Auto) 0.2 (0-2) % Lymph # (Auto) 0.8 L (1.2-4.9) X10*3/uL [place] # (Auto) 0.3 (0.1-1.2) X10*3/uL Eos # (Auto) 0.3 (0.0-0.4) X10*3/uL Baso # (Auto) 0.0 (0.0-0.2) X10*3/uL Abs Immat Gran (auto) 0.05 H (0.00-0.03) X10*3/uL Absolute Neuts (auto) 7.0 (2.0-8.3) x10*3/uL Absolute Nucleated RBC 0.000 (0.0-0.012) X10*3/uL Nucleated RBC % (auto) 0.0 (0.0-0.2) /100WBC Sodium 141 (135-145) mmol/L Potassium 4.0 (3.3-5.1) mmol/L Chloride 108 (96-108) mmol/L Carbon Dioxide 26 (22-29) mmol/L Anion Gap 11 L (12-20) BUN 17 H (9-16) mg/dL Creatinine 0.74 (0.5-1.4) mg/dL Estim Creat Clear Calc 80.1 Estimated GFR > 60 Random Glucose 131 H (60-115) mg/dL Calcium 8.8 (8.4-10.2) mg/dL Magnesium 1.7 (1.6-2.6) mg/dL Total Bilirubin 1.2 H (0.0-1.0) mg/dL Direct Bilirubin 0.4 (0.0-0.5) mg/dL AST 33 H (5-31) U/L ALT 27 (0-31) U/L Alkaline Phosphatase 106 (39-117) U/L Total Protein 7.4 (6.5-8.0) g/dL Albumin 4.1 (3.5-5.0) g/dL Lipase 21 (8-78) U/L Urine Color Dark Yellow Urine Appearance Cloudy Urine pH 5.0 (5.0-9.0) Ur Specific [place] >= 1.030 H (1.005-1.025) Urine Protein 30 (1+) H (Neg-Trace) mg/dL Urine Glucose (UA) Negative (Negative) mg/dL Urine Ketones Trace (Negative) mg/dL Urine Blood Negative (Negative) Urine Nitrite Negative (Negative) Ur Leukocyte Esterase Negative (Negative) Urine RBC 0-2 (0-2) /HPF Urine WBC 0-5 (0-5) /HPF Ur Squamous Epith Cells 11-20 (0-2) /HPF Urine Bacteria 1+ (None Seen) Hyaline Casts 3-5 (0-2) /LPF Independent Interpretation I performed an independent interpretation of an: Plain X-Ray Radiology Impression Discussion of test interpretation with radiology: I have reviewed the radiologist's reading. Radiologist Impression: No pneumoperitoneum or pneumatosis. No abnormal calcifications. Mild bilateral hip degenerative change. IMPRESSION: Normal stool quantity. Critical Care Time Critical Care Time Critical Care Time: Yes Total Critical Care Time: 35 Attestation: I have personally provided critical care time. Time includes review of lab data, radiology results, discussion with consultants, and monitoring for potential decompensation. Intervention performed as documented. Discharge Plan Discharge Clinical Impression: Nausea vomiting and diarrhea Patient Disposition: Home, Self-Care Instructions: Acute Nausea and Vomiting (ED), Acute Diarrhea (ED) Additional Instructions: Please follow-up with your primary care physician tomorrow. If you have any worsening or new symptoms, please return to the emergency room or call 911 Prescriptions: New ondansetron 4 mg tablet,disintegrating 4 mg PO Q6H PRN (Reason: nausea and vomiting) Qty: 10 0RF loperamide 2 mg capsule 2 mg PO Q4H PRN (Reason: loose stool) Qty: 14 0RF Rx Instructions: administer after each loose stool until symptoms controlled; do not exceed 8 mg per 24 hrs No Action albuterol sulfate 90 mcg/actuation HFA aerosol inhaler 2 inh PO Q4H PRN (Reason: shortness of breath or wheezing) Qty: 8.5 1RF (DME) FreeStyle Lite Strips Strip See Rx Instructions .ROUTE .MEDSUPPLY Qty: 50 11RF Rx Instructions: Use 1 test strip once a day (DME) blood-glucose meter [FreeStyle Lite Meter] Kit See Rx Instructions .ROUTE .MEDSUPPLY Qty: 1 0RF Rx Instructions: E11.9 ONCE A DAY (DME) lancets [FreeStyle Lancets] 28 gauge misc See Rx Instructions .ROUTE .MEDSUPPLY Qty: 100 11RF Rx Instructions: Use 1 lancet once a day as needed (DME) blood pressure monitor Kit See Rx Instructions .Route Qty: 1 0RF Rx Instructions: As directed ipratropium-albuterol 0.5 mg-3 mg(2.5 mg base)/3 mL solution for nebulization 3 ml inhalation Q6H PRN (Reason: wheezing) Qty: 180 0RF dicyclomine 20 mg tablet 20 mg PO TID PRN (Reason: abdominal pain) 30 Days Qty: 90 0RF omeprazole 20 mg capsule,delayed release(DR/EC) 20 mg PO BID 90 Days Qty: 180 0RF docusate sodium [Col-Rite] 100 mg capsule 100 mg PO BID Qty: 30 0RF meclizine 50 mg tablet 50 mg PO DAILY PRN (Reason: motion sickness) Qty: 14 0RF acetaminophen 500 mg capsule 1,000 mg PO Q8H PRN (Reason: fever or pain) Qty: 14 0RF tramadol 50 mg tablet 50 mg PO Q8H PRN (Reason: pain) Qty: 12 0RF ketoconazole 2 % cream 1 appl topical BID 7 Days Qty: 30 0RF sucralfate 1 gram tablet 1 g PO TID PRN (Reason: Upper abdominal pain) Qty: 60 0RF ondansetron 4 mg tablet,disintegrating 4 mg PO Q6H PRN (Reason: nausea and vomiting) Qty: 10 0RF amlodipine 10 mg tablet 10 mg PO DAILY Qty: 90 0RF losartan 100 mg tablet 100 mg PO DAILY Qty: 90 0RF lidocaine 5 % adhesive patch,medicated 1 patch topical DAILY Qty: 15 0RF Rx Instructions: leave on most painful area for up to 12 hrs methocarbamol 500 mg tablet 1,000 mg PO TID Qty: 18 0RF valacyclovir 1 gram tablet 2,000 mg PO BID 1 Days Qty: 4 0RF sennosides [senna] 8.6 mg tablet 8.6 mg PO BEDTIME PRN (Reason: constipation) 7 Days Qty: 7 0RF (DME) blood pressure test kit-large Kit See Rx Instructions .ROUTE .MEDSUPPLY Qty: 1 Rx Instructions: As directed Trulicity 1.5 mg/0.5 mL pen injector 1.5 mg subcut QWEEK 28 Days Qty: 2 5RF fluticasone propionate 110 mcg/actuation HFA aerosol inhaler 2 puff inhalation BID 30 Days Qty: 12 5RF Rx Instructions: administer with spacer lidocaine 5 % adhesive patch,medicated 1 patch topical DAILY Qty: 30 5RF Rx Instructions: leave on most painful area for up to 12 hrs Serevent Diskus 50 mcg/dose blister with device 1 inh inhalation BID 30 Days Qty: 60 5RF (DME) cock up splint See Rx Instructions .Route .MEDSUPPLY Qty: 1 0RF Rx Instructions: wear on the right wrist at night gabapentin 300 mg capsule 300 mg PO TID 30 Days Qty: 90 6RF albuterol sulfate 2.5 mg /3 mL (0.083 %) solution for nebulization 2.5 mg inhalation ONCE Qty: 3 0RF bisacodyl 5 mg tablet,delayed release (DR/EC) 10 mg PO .daily 90 Days Qty: 180 1RF polyethylene glycol 3350 [Miralax] 17 gram/dose powder 17 g PO DAILY Qty: 238 1RF Rx Instructions: hold for loose stools losartan 100 mg tablet 100 mg PO DAILY 30 Days Qty: 30 4RF pioglitazone 30 mg tablet 30 mg PO DAILY 90 Days Qty: 90 1RF Cholestyramine Light 4 gram powder 4 g PO BID PRN (Reason: diarrhea) 30 Days Qty: 210 0RF Rx Instructions: administer w/meal; avoid other meds within 1hr before or 4-6hr after dose atorvastatin 10 mg tablet 10 mg PO DAILY Orencia ClickJect 125 mg/mL auto-injector 125 mg subcut QWEEK Qty: 4 5RF Print Language: Nauruan
--- NOTE | 2025-10-09 16:03 | ECG_ITS ---
Test Reason : ABDOMINAL PAIN Blood Pressure : */* mmHG Vent. Rate : 91 BPM Atrial Rate : 91 BPM P-R Int : 200 ms QRS Dur : 88 ms QT Int : 362 ms P-R-T Axes : 37 5 48 degrees QTcB Int : 445 ms Normal sinus rhythm Normal ECG When compared with ECG of 14-Jun-2025 11:19, No significant change was found Referred By: Jackelyn Loyd Electronically Signed By: DEXTER BOWSER
[2025-10-09 16:23] LABS: MANUAL DIFF FLAG NO
[2025-10-09 16:36] LABS: Hematocrit 42.8 % (37.0-47.0); Hemoglobin 14.5 g/dl (12.0-16.0); Imm Gran Abs Auto 0.05 X10*3/uL (0.00-0.03); Imm Gran Pct Auto 0.6 % (0.0-0.4); Lymphocytes Absolute Auto 0.8 X10*3/uL (1.2-4.9); Mean Corpuscular HGB Conc 33.9 g/dl (31.0-35.0); Mean Corpuscular Hemoglobin 31.7 pg (27.0-33.0); Mean Corpuscular Volume 93.4 fL (80.0-98.0); NRBC Abs Auto 0.000 X10*3/uL (0.0-0.012); NRBC Pct Auto 0.0 /100WBC (0.0-0.2); Platelet Count 166 X10*3/uL (160-400); Red Blood Count 4.58 X10*6/uL (4.20-5.50); White Blood Count 8.4 X10*3/uL (4.8-10.8)
[2025-10-09 16:37] LABS: Alanine Aminotransferase 27 U/L (0-31); Albumin Level 4.1 g/dL (3.5-5.0); Alkaline Phosphatase 106 U/L (39-117); Anion Gap 11 (12-20); Aspartate Amino Transferase 33 U/L (5-31); Blood Urea Nitrogen 17 mg/dL (9-16); Calcium 8.8 mg/dL (8.4-10.2); Carbon Dioxide 26 mmol/L (22-29); Chloride 108 mmol/L (96-108); Creatinine Clr Calc Pharmacy 80.1; Estimated Glomerular Filt Rate > 60; Lipase 21 U/L (8-78); Magnesium 1.7 mg/dL (1.6-2.6); Potassium 4.0 mmol/L (3.3-5.1); Sodium 141 mmol/L (135-145); Total Protein 7.4 g/dL (6.5-8.0)
[2025-10-09 16:41] LABS: Appearance Urine Cloudy; Glucose Urine UA Negative (Negative); PH 5.0 (5.0-9.0); Specific Gravity - Urine >= 1.030 (1.005-1.025); UMIC TRIGGER UACC YES
--- OUTSIDE RECORDS SUMMARY | 2025-10-09 19:06 | XMS_ITS | Patient Health Record ---
Author Organization [facility] Address [facility] [place] [address] Care Team Providers Care After School Driver Name Role Phone ASAD LERNER Primary Care Provide r [phone] ANOOP HUBBARD, MATTHEW Unavailable [phone] BRENDA HAWLEY MD, PACO Unavailable [phone] Allergies Allergen (clinical drug ingredient) Drug/Non Drug Allergy documented on EMR Reaction Allergy Type Onset Date Status Flexeril dizziness Drug Allergy Active Norflex dizziness Drug Allergy Active Results Component Value Reference Range Flag Notes CHEST-AP ONLY *1 VIEW Order date: 12/28/2024 Reviewed date:01/01/2025 08:48:19 AM Interpretation: Performing Lab: Notes/Report: See Below For Report Chest PA: [id number].Report Text See Below For Report COVID-19 ANTIGEN [...] with a molecular assay. LICENSE.: [id number] CLIA: [id number] -- Negative results, from patients with symptom onset beyond seven days, DIRECTOR: JAIME SARAVIA differentiate between SARS-CoV and SARS-CoV-2. Num: [id number] bacterial infection or co-infection with other viruses and do not Exp: 01/08/2025 [place] [address] necessary to determine infection status. Positive results do not rule out Paid 5 C[address] correlation with patient history and other diagnostic information is Pat. No.: [id number] [facility] [place] -- Positive results indicate the presence of COVID-19 antigen, but clinical Col. Tabitha. Med. P.R. ORDER [id number] PERFORMED AT: COVID-19 Ag NEGATIVE NEGATIVE METHOD: STATUS COVID-19/FLU A&B INFLUENZA AG A & B Order date: 12/28/2024 Reviewed date:12/28/2024 02:51:15 PM Interpretation: Performing Lab: Notes/Report: A negative test result may occur if the level of antigen in a sample is Col. Tabitha. Med. P.R. ORDER [id number] PERFORMED AT: below the detection limit of the test. Pat. No.: [id number] [facility] [place] Test results must be evaluated in conjunction with other clinical data. Paid 5 Cents [address] Negative test results do not rule out other non-influenza viral infections Exp: 01/08/2025 [place] [address] Positive test results do not identify specific influenza A virus subtypes Num: [id number] Individuals who recieved nasally influenza A vaccine may have positive DIRECTOR: JAIME SARAVIA test results for up to three days after vaccination. LICENSE.: [id number] CLIA: [id number] INFLUENZA A ANTIGEN NEGATIVE NEGATIVE INFLUENZA B ANTIGEN NEGATIVE NEGATIVE METHOD: STATUS COVID-19/FLU A&B CBC + DIFF Order date: 12/28/2024 Reviewed date:12/28/2024 02:51:15 PM Interpretation: Performing Lab: Notes/Report: CBC Col. Tabitha. Med. P.R. ORDER [id number] PERFORMED AT: Pat. No.: [id number] [facility] [place] Paid 5 Cents [address] Exp: 01/08/2025 [place] [address] Num: [id number] DIRECTOR: JAIME SARAVIA LICENSE.: [id number] CLIA: [id number] WHITE BLOOD COUNT 7.0 4.8-10.8 X10 RED [...] W/U Status Risk Notes Problem Chronic pain (68608146) Other chronic pain (G89.29) Added On: 8 Active confirmed Problem Essential hypertension (47122761) Essential (primary) hypertension (I10) Active confirmed Essential (primary) hypertension Problem Postmenopausal bleeding (12142299) Postmenopausal bleeding (N95.0) Added On: 8 Active confirmed Problem Hyperglycemia due to type 2 diabetes mellitus (715704842391545) Controlled type 2 diabetes mellitus with hyperglycemia, without long-term current use of insulin (E11.65) Added On: 8 Active confirmed Problem Acute severe exacerbation of mild persistent asthma (disorder) (817044592) Mild persistent asthma with acute exacerbation (J45.31) Added On: 7 Active confirmed Problem Rheumatoid arthritis (06357772) Rheumatoid arthritis involving multiple sites with positive rheumatoid factor (M05.79) Added On: 8 Active confirmed Problem Body mass index 30.00 to 34.99 (957841518256779) Body mass index (BMI) of 33.0 to 33.9 in adult (Z68.33) Added On: 7 Active confirmed Problem Type II diabetes mellitus without complication (161670015) Controlled diabetes mellitus (E11.9) Added On: 7 Active confirmed Problem Rheumatoid arthritis (80294991) Rheumatoid arthritis involving multiple sites, unspecified rheumatoid factor presence (M06.9) Added On: 7 Active confirmed Problem Diabetes mellitus type 2 (96557158) Diabetes mellitus type 2, uncontrolled (E11.65) Added On: 8 Active confirmed Problem Morbid obesity (469175785) Morbid obesity (E66.01) Added On: 9 Active confirmed Problem Mild intermittent asthma (832731461) Asthma, intermittent, uncomplicated (J45.20) Added On: 8 Active confirmed Problem Body mass index 40+ - morbidly obese (158885515) BMI 40.0-44.9, adult (Z68.41) Added On: 9 Active confirmed Problem Herpes simplex labialis (5812344) Herpes simplex labialis (B00.1) Added On: 7 Active confirmed Problem Exacerbation of asthma (926219746) Asthma exacerbation (J45.901) Added On: 5 Active confirmed Problem Asthma without status asthmaticus (83206651) Active asthma (J45.909) Added On: 5 Active confirmed Problem Endometrial hyperplasia (440037586) Endometrial hyperplasia (N85.00) Added On: 8 Active confirmed Problem Allergic rhinitis (45379017) Acute allergic rhinitis (J30.9) Added On: 8 Active confirmed Problem Gastroesophageal reflux disease (disorder) (689187581) Chronic GERD (K21.9) Added On: 8 Active confirmed Vital Signs Vital Sign Value Notes Appt Date Heart Rate 71 /min EDILSON PAZ [employer]. Lic.[id number], [place] A 08/16/2025 10:52:36 AM > MCDONALD MCDONALD RN.BSN Lic.73029, JIM 08/16/2025 12:52:04 PM > Se realiza reestimado de dolor, paciente refiere intensidad 0 en la escala de valoracion del dolor. 08/16/2025 Temperature 36.8 C EDILSON PAZ [employer]. Lic.30650, [place] A 08/16/2025 10:52:36 AM > MCDONALD MCDONALD RN.BSN Lic.63742, JIM 08/16/2025 12:52:04 PM > Se realiza reestimado de dolor, paciente refiere intensidad 0 en la escala de valoracion del dolor. 08/16/2025 Respiratory Rate 20 /min EDILSON PAZ [employer]. Lic.96093, [place] A 08/16/2025 10:52:36 AM > MCDONALD MCDONALD RN.BSN Lic.18679, JIM 08/16/2025 12:52:04 PM > Se realiza reestimado de dolor, paciente refiere intensidad 0 en la escala de valoracion del dolor. 08/16/2025 Blood pressure diastolic 68 mm Hg WAGGONER COLON [employer]. Lic.67452, [place] A 08/16/2025 10:52:36 AM > MCDONALD MCDONALD RN.BSN Lic.29710, JIM 08/16/2025 12:52:04 PM > Se realiza reestimado de dolor, paciente refiere intensidad 0 en la escala de valoracion del dolor. 08/16/2025 Oximetry 98 % WAGGONER COLON [employer]. Lic.25811, [place] A 08/16/2025 10:52:36 AM > MCDONALD MCDONALD RN.BSN Lic.54055, JIM 08/16/2025 12:52:04 PM > Se realiza reestimado de dolor, paciente refiere intensidad 0 en la escala de valoracion del dolor. 08/16/2025 Height-cm 154.94 cm EDILSON COLON [employer]. Lic.26620, [place] A 08/16/2025 10:52:36 AM > MCDONALD MCDONALD RN.BSN Lic.03192, JIM 08/16/2025 12:52:04 PM > Se realiza reestimado de dolor, paciente refiere intensidad 0 en la escala de valoracion del dolor. 08/16/2025 Weight-kg 96.62 kg EDILSON COLON [employer]. Lic.29782, [place] A 08/16/2025 10:52:36 AM > MCDONALD MCDONALD RN.BSN Lic.29841, JIM 08/16/2025 12:52:04 PM > Se realiza reestimado de dolor, paciente refiere intensidad 0 en la escala de valoracion del dolor. 08/16/2025 Height 61 in WAGGONER COLON [employer]. Lic.01276, [place] A 08/16/2025 10:52:36 AM > MCDONALD MCDONALD RN.BSN Lic.78301, JIM 08/16/2025 12:52:04 PM > Se realiza reestimado de dolor, paciente refiere intensidad 0 en la escala de valoracion del dolor. 08/16/2025 Blood pressure systolic 165 mm Hg EDILSON MARROQUIN RN BSN. Lic.40531, [place] A 08/16/2025 10:52:36 AM > TAMARA MCDONALD RN.BSN Lic.67627, JIM 08/16/2025 12:52:04 PM > Se realiza reestimado de dolor, paciente refiere intensidad 0 en la escala de valoracion del dolor. 08/16/2025 Weight 213 lbs EDILSON PAZ [employer]. Lic.69393, [place] A 08/16/2025 10:52:36 AM > TAMARA MCDONALD RN.BSN Lic.22621, JIM 08/16/2025 12:52:04 PM > Se realiza reestimado de dolor, paciente refiere intensidad 0 en la escala de valoracion del dolor. 08/16/2025 BMI 40.24 kg/m2 EDILSON PAZ RN BSN. Lic.98020, [place] A 08/16/2025 10:52:36 AM > TAMARA MCDONALD RN.BSN Lic.33959, JIM 08/16/2025 12:52:04 PM > Se realiza reestimado de dolor, paciente refiere intensidad 0 en la escala de valoracion del dolor. 08/16/2025 Encounters Date Time Type Facility Location Provider Diagnosis 12:07 PM Office Visit [facility] [place] [address] [place], [place] [id number] [place] GUTIERREZ HAWLEY Cough R05.9 ; Low back pain M54.50 and Asthma exacerbation J45.901 10:35 AM Office Visit [facility] [address] [place], [place] [id number] MATTHEW DAVALOS Active asthma J45.909 Assessments Encounter Date Diagnosis (ICD Code) Assessment Notes Treatment Notes Section Notes 12/28/2024 Cough (ICD-10 - R05.9) 1) TUSSIN 10 ML PO 2) AIMBOWK45 MG IV 3) SOLUMEDROL 125 M GIV 4) ALBUTEROL 0.083 + ATROVENT 0.02 BY PN ONCE [place] A 12/28/2024 12:50:51 PM > CÉSAR BARBA. [employer] Lic. [id number], GENE 12/28/2024 12:57:44 PM > [place]. CÉSAR BARBA. [employer]PERVIS[employer] Lic. [id number], GENE 12/28/2024 12:57:44 PM > CÉSAR BARBA. [employer]PER[employer] Lic. [id number], GENE 12/28/2024 01:10:58 PM > Se recibe [...] + Atrovent 0.02 10/11. CÉSAR BARBA. [employer]PER[employer] Lic. [id number], GENE 12/28/2024 01:10:58 PM > CÉSAR BARBA. CÉSAR BARBA. [employer] Lic. [id number], GENE 12/28/2024 02:10:54 PM > Paciente es [...] al momento del renato. CÉSAR BARBA. [employer] Lic. [id number], GENE 12/28/2024 02:10:55 PM > 12/28/2024 Low [...] 08/16/2025 Other GIVENS LOPEZ GINI. BSN Lic. [id number], [facility] 08/16/2025 11:21:53 AM > Se ubica paciente [...] orienta a notificar cambios, refiere entender. CHON LOEPZ RN. BSN Lic. [id number], [facility] 08/16/2025 11:21:53 AM > CHON LOPEZ RN. BSN Lic. [id number], [facility] 08/16/2025 11:56:26 AM > Se observa paciente con segunda terapia respiratoria ordenada por medico de turno. CHON LOPEZ RN. BSN Lic. [id number], [facility] 08/16/2025 11:56:30 AM > TAMARA MCDONALD RN BSN. Lic.77376, [facility] 08/16/2025 12:20:21 PM > Se observa paciente con tercera terapia respiratoria ordenada por Dr. Davalos. TAMARA MCDONALD RN BSN. Lic.69498, [facility] 08/16/2025 12:20:44 PM > TAMARA MCDONALD RN.BSN Lic.[id number] [facility] 08/16/2025 12:52:21 PM > Paciente es dado [...] al momento del renato. TAMARA MCDONALD RN.BSN Lic.66858, JIM 08/16/2025 12:52:26 PM > MATTHEW DAVALOS [...] Insured Coverage Start Date Coverage End Date [address] [address] [id number] Laura Beckman Self - patient is the insured 4 5 MEDICARE [address] [address] [place], [place] [phone] [id number] Laura Beckman Self - patient is the insured 5 Medical (General) History Medical History History ICD Code ARTRITIS REUMATOIDEA DIABETICA ASMA RENATO PRESION Surgical History Surgery Date(Month/Year) cholecystectomy
[2025-10-09 22:01] VITALS: BP 147/79; PULSE 81; RESP 16; TEMP 36.9; O2SAT 97
[2025-10-10 01:29] VITALS: BP 146/79; PULSE 75; RESP 16; TEMP 36.6; O2SAT 95
[2025-10-10] MEDS: Lactated Ringers 1,000 ML 999 ML IV (01:59)
[2025-10-10 03:30] VITALS: BP 136/66; PULSE 68; RESP 15; TEMP 36.6; O2SAT 96
[2025-10-10 03:49] VITALS: BP 136/66; PULSE 68; RESP 15; TEMP 36.6; O2SAT 96
== END 2025-10-10 03:59 | disposition home or self-care (01) ==
PROVIDERS: Physician Assistant; Emergency Provider Emergency Medicine; PCP Internal Medicine
DX: R11.2 Nausea with vomiting, unspecified (principal); R19.7 Diarrhea, unspecified
CPT/HCPCS: 36415; 74018; 76705; 80048; 80076; 81001; 83690; 83735; 85025; 93005; 96361; 96374; 99284; J2405; J7120

== ENCOUNTER → 2025-10-09 16:03 | Outpatient (BNV) | payer MEDICARE, MEDICAID, SELFPAY | PROVIDERS: Emergency Provider Emergency Medicine; PCP Internal Medicine; Visit Provider Internal Medicine | DX: R10.13 Epigastric pain (principal) | CPT/HCPCS: 93010 ==

== ENCOUNTER → 2025-10-09 16:05 | Outpatient (BNV) | payer MEDICARE, MEDICAID, SELFPAY | PROVIDERS: PCP Internal Medicine; Visit Provider Student in an Organized Health Care Education/Training Program | DX: R10.11 Right upper quadrant pain (principal); K76.0 Fatty (change of) liver, not elsewhere classified | CPT/HCPCS: 76705 ==

== ENCOUNTER → 2025-10-10 01:22 | Outpatient (BNV) | payer MEDICARE, MEDICAID, SELFPAY | PROVIDERS: Emergency Provider Emergency Medicine; PCP Internal Medicine; Visit Provider Radiology Diagnostic Radiology | DX: R10.9 Unspecified abdominal pain (principal) | CPT/HCPCS: 74018 ==